=== PATIENT | female | born 1955 | race Caucasian/White ===

== ENCOUNTER 2021-12-03 11:32 | Outpatient (CLI) | payer MEDICARE, SELFPAY ==
--- OUTSIDE RECORDS SUMMARY | 2021-12-03 11:37 | XMS_ITS | Encounter Summary ---
:1955 Author Organization [facility] Address [address] [place] [address] Care Team Providers Name Role Phone Unavailable Primary Care Provider Unavailable Reason for Referral Outpatient (Routine) - Closed Specialty Diagnoses / Procedures Referred By Contact Refer red To Contact Diagnoses Arthritis Shoulder Alfredo De Souza M.D. [facility] Procedures DX Shoulder Right 2+ Views [address] [place] [address] Referral ID Status Reason Start Date Expiration Date Visits Requ ested Visits Authorized [id number] Closed 09/04/2021 09/04/2022 1 1 Outpatient (Routine) - Closed Specialty Diagnoses / Procedures Referred By Contact Refer red To Contact Orthopedic Surgery Alfredo De Souza [place] M.D. [address] [place] [address] Referral ID Status Reason Start Date Expiration Date Visits Requ ested Visits Authorized [id number] Closed 09/04/2021 09/04/2022 1 1 Reason for Visit Reason Comments Post-op Outpatient (Routine) - Closed Specialty Diagnoses / Procedures Referred By Contact Refer red To Contact Orthopedic Surgery Misti Owens APRN, [facility].N.Mima, M.S.N. [address] [place] [address] Referral ID Status Reason Start Date Expiration Date Visits Requ ested Visits Authorized [id number] Closed 07/22/2021 07/22/2022 1 1 Encounter Details Date Type Department Care Team Description 09/04/2021 Office Visit Department of Alfredo De Souza Arthrit is Shoulder Orthopedic Surgery in [place] (Primary Dx) [place], [place] [address] [facility] [address] [place] [id number] [phone] Social History Tobacco Use Types Packs/Day Years Used Date Smoking Tobacco: Never Smokeless Tobacco: Never Alcohol Use Standard Drinks/Week Comments Yes 4 (1 standard drink = 0.6 oz pure alcoho l) Alcohol Habits Answer Date Recorded How often do you have a drink containing alcohol? 2-3 times a week 05/09/2021 How many drinks containing alcohol do you have on a 1 or 2 05/09/2021 typical day when you are drinking? How often do you have six or more drinks on one Never 05/09/2021 occasion? Social Isolation Answer Date Recorded In a typical week, how many times do you More than three lita es a week 05/09/2021 talk on the phone with family, friends, or neighbors? How often do you get together with friends More than three t imes a week 05/09/2021 or relatives? How often do you attend mandaen or More than 4 times per year 05/09/2021 latter-day services? Do you belong to any clubs or No 05/09/2021 organizations such as mandaen groups, unions, fraternal or athletic groups, or school groups? How often do you attend meetings of the Never 05/09/2021 clubs or organizations you belong to? Are you now , , , 05/09/2021 , never or living with a partner? Physical Activity Answer Date Recorded On average, how many days per week do you engage in moderate to 7 days 05/09/2021 strenuous exercise (like walking fast, running, jogging, dancing, swimming, biking, or other activities that cause a light or heavy sweat)? On average, how many minutes do you engage in exercise at th is 40 min 05/09/2021 level? Stress Answer Date Recorded Do you feel stress - tense, restless, nervous, or anxious, N ot at all 05/09/2021 or unable to sleep at night because your mind is troubled all the time - these days? Financial Resource Strain Answer Date Recorded How hard is it for you to pay for the very basics like Not h jhoan at all 05/09/2021 food, housing, medical care, and heating? Intimate Partner Violence Answer Date Recorded Within the last year, have you been afraid of your partner o r No 05/09/2021 ex-partner? Within the last year, have you been humiliated or emotionall y No 05/09/2021 abused in other ways by your partner or ex-partner? Within the last year, have you been kicked, hit, slapped, or No 05/09/2021 otherwise physically hurt by your partner or ex-partner? Within the last year, have you been raped or forced to have any No 05/09/2021 kind of sexual activity by your partner or ex-partner? Food Insecurity Answer Date Recorded Within the past 12 months, you worried that your food would Never true 05/09/2021 run out before you got money to buy more. Within the past 12 months, the food you bought just didn't N ever true 05/09/2021 last and you didn't have money to get more. Transportation Needs Answer Date Recorded In the past 12 months, has lack of transportation kept you f rom No 05/09/2021 medical appointments or from getting medications? In the past 12 months, has lack of transportation kept you f rom No 05/09/2021 meetings, work, or getting things needed for daily living? Housing Stability Answer Date Recorded In the last 12 months, was there a time when you were not ab le No 05/09/2021 to pay the mortgage or rent on time? In the last 12 months, how many places have you lived? 1 05/09/2021 In the last 12 months, was there a time when you did not hav e a No 05/09/[address] or slept in a mcc (including now)? Education Answer Date Recorded What is the highest level of school Master's degree (e.g., Reji Landry, , 02/27/2020 you have completed or the highest Melanie, MEd, MASH FILTER OPERATOR, KARLI) degree you have received? 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 - 09/04/2021 2:50 PM CDT Images from the original note were not included. [facility] 6 Week Post-op Instructions At 6 weeks after surgery, we continue to monitor the healing process of your shoulder. While the shoulder continues to heal, we also need to work to expand the range of motion of the shoulder. At this point in healing, the tendon is about 40% healed. It's ready to do some gentle stretching, but not ready for substantial strengthening or activity. I like to think of this as one foot on the gas pedal,one foot on the brake. General restrictions: Okay to wean out the sling. This doesn't have to be immediate, but it's a good idea to use the slingless and less over time (including sleep). Nothing in the surgical hand heavier than a fork/knife/toothbrush/cell phone. Okay to use the arm for gentle daily activities. This includes reaching and some general use. You should avoid reaching across your body, or behind your back. Those positions can put you at risk for injuring your shoulder. You should begin the exercises listed below. The monroe to the exercises is to do them frequently, rather than intensely. It should not cause substantial pain to do the stretching, just a gentle stretch. While the stretching exercises are the most important part of your therapy, it is okay to begin formal therapy at this point - as long as the therapists follow the required restrictions Certainly, if you have questions at any time, feel free to contact us. You are through the toughest part of your recovery. While recovery can feel slow during the process,you should be encouraged that the healing is continuing to occur in your shoulder. We don't expect that you have maximized your recovery until 1 to 2 years after surgery. Shoulder Stretching Exercises When you do these stretches as you were shown by your health care provider, you stretch your shoulder muscles to improve the flexibility of your shoulder. If you have questions about these stretches, talk with your health care provider. Follow these guidelines when doing these stretches. Maintain a comfortable and constant stretch. Breathe normally; do not hold your breath. Hold each stretch 10 seconds. Then slowly return to the starting positon and relax. Do each stretch 5-10 time(s) 3-5 time(s) a day. Do each stretch for both shoulders if your health care provider tells you do to so. Do each stretch slowly and gently. A stretch should not cause new or increased pain. If it does, stop doing the stretch right away and relax. If the pain goes away, do the stretch again but do it with less speed and intensity. If the pain does not go away, talk with your health care provider before you do the stretch again. Shoulder flexion while sitting Sit with your affected side next to a table. Place your forearm and hand with palm down on the table. Your elbow should be bent slightly. See Figure 2. You may place a towel between your arm and the table. As you move your arm, the towel helps reduce friction between your arm and the table. Slowly lean forward and slide your hand and forearm along the table. Stop when you feel a gentle stretch in your shoulder. Shoulder external rotation - lying option Bend your elbows at a 90-degree angle to hold the wand with your right hand on top of and your left hand under the wand. Rest your left elbow and upper arm on a folded towel. Keeping your arms at your side, use your right arm and the wand to rotate your left arm outward. Addendum 1: Postoperative Timelines Work and activity restrictions are consistent regardless of repair type: ? 0-6 weeks: No work, no use of operative hand 6 wks -3 mo: Nothing in operative hand heavier than a fork/knife/toothbrush. Cleared to return to work for opposite hand work only ? 3 mo: No lifting greater than 10 pounds, only occasional overhead reaching ? 4.5 m: No lifting greater than 20 pounds ? 6 mo: Released from restrictions, return to work full duty Addendum 2: Physical Therapy Protocol Addendum 3: Physical Therapy Prescription (if desired) Physical/Occupational Therapy Prescription Date: 09/04/21 Diagnosis: Status post total shoulder replacement Evaluate and treat, modalities as indicated. With below restrictions: Signed: Date: 09/04/21 documented in this encounter Progress Notes Addison Crump - 09/04/2021 2:50 PM CDT HISTORY OF PRESENT ILLNESS Megan Carmichael is a 65 y.o. female who on 07/22/21 underwent right rTSA/biceps tenodesis. She presents to our clinic today 6 weeks after the procedure for x-rays and evaluation. Today, she is feeling great -- she is very happy with her progress thus far. She has been using a sling regularly --taking her arm out to move it in accordance with the exercises that she was given at her last visit. The patient is not currently experiencing numbness to the effected limb. Patient has not had any issues with incision drainage or healing to this point. PHYSICAL EXAM General Appearance: Patient is well-appearing. The patient is alert and oriented to person, place, and time and able tofollow commands. Skin: Surgical site appearance: clean, dry, and intact. No signs of erythema, bruising, or drainage. Musculoskeletal: Patient is able to fire the interosseous, EPL, finger flexors, finger extensors, wrist flexors, wrist extensors, biceps, triceps and deltoid. Shoulder ROM: Patient's ROM is limited due to stiffness/mild pain; however, she has full IR/ER. Her abduction/flexion are limited at about 50 degrees. Neurologic: Intact sensation to light touch through the axillary, musculocutaneous, radial and ulnar nerve distributions of the affected arm. Vascular: The right upper extremity does not appear well perfused. Radial and ulnar pulses are 2+ and capillary refill is <= 2 sec through all fingertips. IMPRESSION/REPORT/PLAN IMAGING STUDIES: Radiographs demonstrate implants in acceptable position, without failure, loosening, wear, subluxation or dislocation #1 Right rTSA and Right open biceps tenodesis on 07/22/21 The patient continues to recover from their above stated procedure -- her recovery is going quite well. Today, she was given weight restrictions for ADL's. She can begin to take her sling off. She was encouraged to start gentle daily use of that right shoulder. Furthermore, she was encouraged to do daily exercises. She desires to do PT close to home so that she can best understand how to perform the exercises -- she will be set up at [facility] and given a prescription today. Moreover, she mentioned a recent eye surgery that is upcoming for her -- we will give her amoxicillin ppx for this. Plan/Follow up instructions: 1) No more sling use 2) Gentle daily use/exercises 3) Amoxillin 500 mg ppx 4) Follow-up in 6 weeks (3 mo f/u) We discussed pain management strategies. All questions were answered, patient understands and agrees with the plan. Dr. De Souza was present for this evaulation. Alfredo De Souza M.D. - 09/04/2021 2:50 PM CDT SUBJECTIVE CHIEF COMPLAINT/REASON FOR VISIT Followup status post right reverse total shoulder arthroplasty. HISTORY OF PRESENT ILLNESS Ms. Carmichael returns. Overall, she is recovering very well. Her pain and function are excellent. She is really surprised about how well it is doing. OBJECTIVE PHYSICAL EXAMINATION General: Alert and oriented, in no acute distress. Musculoskeletal: Forward elevation to 100, external rotation 30. Her deltoid is contractile. She is neurovascularly intact distally. DIAGNOSTICS X-rays of the right shoulder demonstrate a well-aligned stable right reverse total shoulder arthroplasty in acceptable position. ASSESSMENT / PLAN #1 Status post right reverse total shoulder arthroplasty We discussed options and expectations. We discussed nonoperative and surgical management. We will continue with the stretching exercises, have her follow up in 6 weeks. All of her questions were answered. Alfredo De Souza M.D. CT CT Job ID: [id number] documented in this encounter Plan of Treatment Scheduled Referrals Name Type Priority Associated Order Schedule Diagnoses Orthopedic Surgery Outpatient Referral Routine Ex pected: office visit 10/16/2021, (clinic) Expires: 12/05/2022 documented as of this encounter Results DX Shoulder Right 2+ Views (10/16/2021 10:52 AM CDT) Anatomical Region Laterality Modality Upper Extremity, Shoulder, Musculoskeletal RST LOS, Right Digital Radiography Musculoskeletal ARZ LOS, Muskuloskeletal FLA LOS Specimen (Source) Anatomical Collection Method Collection Time Re ceived Time Location / / Volume Laterality 10/16/2021 10:57 AM CDT Impressions 10/16/2021 11:32 AM CDT No significant change since 09/04/2021. Right reverse total shoulder arthroplasty. No evidence of hardware failure. Narrative 10/16/2021 11:32 AM CDT EXAM: ??DX SHOULDER RIGHT 2+ VIEWS Procedure Note Karen Lucas M.D. - 10/16/2021Formatt ing of this note might be different from the original. EXAM: DX SHOULDER RIGHT 2+ VIEWS IMPRESSION: No significant change since 09/04/2021. Right reverse total shoulder arthroplasty. No evidence of hardware failure. Alfredo De Souza M.D. IMG DIAGNOSTIC IMAGING MEL HUBBARD documented in this encounter Visit Diagnoses Diagnosis Arthritis Shoulder - Primary Arthritis Shoulder documented in this encounter
--- OUTSIDE RECORDS SUMMARY | 2021-12-03 11:37 | XMS_ITS | Encounter Summary ---
:1955 Author Organization [facility] Address [address] [place] [id number] Care Team Providers Name Role Phone Unavailable Primary Care Provider Unavailable Encounter Details Date Type Department Care Team Description 10/13/2021 Hospital Encounter Department of Eddy Anne Breast Family History; Laboratory Medicine Horace Bermudez Melanoma Personal History; and Pathology, [address] [place] [address] Cancer Ovary Family History; [facility], in [place], [place] Cancer Family History [place], [place] [address] [place] [address] [place], [place] (Work) [phone] Social History Tobacco Use Types Packs/Day Years [...] or relatives? How often do you attend methodist or More than 4 times per year 05/09/2021 islam services? Do you belong to any clubs or No 05/09/2021 organizations such as methodist groups, unions, fraternal or athletic groups, or [...] place to sleep or slept in a retirement (including now)? Education Answer Date Recorded What is the highest level of school Master's degree (e.g., M Gris, MS, 02/27/2020 you have completed or the highest Melanie, MEd, STRIPPER PRELIMINARY, KARLI) degree you have received? 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 calcium carb-vit 250 mg. 0 07/22/2021 D3-magnesium 250-200-125 mg-unit-mg capsule calcium citrate-vitamin Take 2 tablets by 0 07/22 D3 (CITRACAL+D) 315 mg-5 mouth 2 (two) times a mcg (200 Unit) per tablet day with meals. This may be purchased over the counter cholecalciferol, vitamin Take 2,500 Units by 0 D3, 10 mcg (400 unit) mouth. capsule DIETARY SUPPLEMENT ORAL Take 10 tablets by 0 mouth as needed. Wazyren tea pills for consitpation docosahexaenoic acid/epa Take 2 capsules by 0 (FISH OIL ORAL) mouth daily. fluticasone Inhale 1 puff every 0 11/13/2020 propion-salmeteroL morning. (AIRDUO RESPICLICK) 232-14 mcg/actuation inhaler fluticasone propionate Administer 2 sprays 0 12/18 (FLONASE) 50 into each nostril as mcg/actuation nasal spray needed. lisinopriL Take 5 mg by mouth 0 12/22/2019 (PRINIVIL,ZESTRIL) 5 mg every morning. tablet montelukast (SINGULAIR) TAKE 1 TABLET BY MOUTH 90 tablet 3 11/11/2020 10 mg tablet EVERYDAY AT BEDTIME multivitamin capsule Take 1 capsule by 0 mouth daily. TURMERIC ORAL Take 2 tablets by 0 mouth daily. Ventolin HFA 90 Inhale 2 puffs every 4 18 g 11 01/16/20 21 mcg/actuation inhaler (four) hours as needed for wheezing or shortness of breath. vitamin B complex (B Take 1 tablet by mouth 0 COMPLEX ORAL) daily. documented as of this encounter Plan of Treatment Not on filedocumented as of this encounter Procedures Procedure Name Priority Date/Time Associated Comments Diagnosis [facility]. 6connect Routine 10/13/2021 1:55 PM Results for eSNF CDT procedure are i n the results section. documented in this encounter Results [facility] Twice (10/13/2021 1:55 PM CDT) P athologist Signature Test Name [employer] 10/14/2021 [employer] Custom Panel 8:10 AM CDT Result SEE COMMENT 11/06/2021 [facility] 3:09 PM CDT Comment: For final report, select Lab-Send Out L ab Results hyperlink below. Specimen Anatomical Collection Method Collection Time Receive d Time (Source) Location / / Volume Laterality Varies 10/13/2021 1:55 PM 8:10 CDT AM CDT Narrative This result has an attachment that is no t available. Eddy Anne M.D. LAB [facility] ORDERABLES Performing Organization Address City/State/ZIP Code Phon e Number [facility] [address] [place] [address] [facility] [facility] [place], [place] [address] [facility] [phone] documented in this encounter Visit Diagnoses Diagnosis Cancer Breast Family History Melanoma Personal History Cancer Ovary Family History Cancer Family History documented in this encounter
--- OUTSIDE RECORDS SUMMARY | 2021-12-03 11:37 | XMS_ITS | Encounter Summary ---
:1955 Author Organization [facility] Address [address] [place] [address] Care Team Providers Name Role Phone Unavailable Primary Care Provider Unavailable Reason for Visit Outpatient (Routine) - Closed Specialty Diagnoses / Procedures Referred By Contact Refer red To Contact Clinical Genomics Diagnoses Cancer Breast Family History Brigid Snow M.D. [place] [address] [place] [address] Referral ID Status Reason Start Date Expiration Date Visits Requ ested Visits Authorized [id number] Closed 08/29/2021 08/29/2022 1 1 Encounter Details Date Type Department Care Team Description 10/13/2021 Comprehensive Visit Department of Gordon Snow M.D. [address] [place] [phone] Melanoma Personal History (Primary Dx); Medical Genetics in Naty Enamorado M.S., [facility] [address] [place] [address] [phone] Cancer Breast Family History; [place], [facility]; [place] Cancer Family History [address] [place] [address] [phone] Social History Tobacco Use Types Packs/Day Years [...] or relatives? How often do you attend christian or More than 4 times per year 05/09/2021 mosque services? Do you belong to any clubs or No 05/09/2021 organizations such as christian groups, unions, fraternal or athletic groups, or [...] place to sleep or slept in a skilled nursing (including now)? Education Answer Date Recorded What is the highest level of school Master's degree (e.g., M A, MS, 02/27/2020 you have completed or the highest Melanie, MEd, A&P MECHANIC, KARLI) degree you have received? 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 REFERRING PROVIDER Brigid Snwo M.D. CHIEF COMPLAINT Family history of breast cancer HISTORY OF PRESENT ILLNESS Megan Carmichael is a 65 y.o. female referred by Brigid Snow M.D. due to her family history of breast cancer. The patient has a personal history of melanoma. She is undergoing annual mammograms . The patient is, menarche was at age 14, her first parity was at 22 years old, and she is postmenopausal. She reports no history of HRT . Ms. Carmichael had hysterectomy and bilateral salpingo-oophorectomy . The patient is a non-smoker. Ms. Carmichael did have BRCA1 and BRCA2 genetic testing in 2004, which was negative. The family history is significant for breast, ovarian, and other cancers. Please see family history section below for additional details. The patient attended today's consultation with her . FAMILY HISTORY A detailed family history was obtained from the patient and a pedigree was constructed. The pedigreewill be saved as a scanned document and available for viewing under the Media tab of [employer]. Our risk assessment is based upon medical and family history information as provided by the patient, and may change in the future should new information be obtained. Relevant History: Mother with ovarian cancer at age 68 Son with testicular cancer Maternal grandmother with breast cancer at age 45 Two maternal great-aunts (sisters of above) with breast cancer Maternal great-grandmother (mother of above) with abdominal cancer Paternal aunt with uterine cancer The patient's maternal ancestry is [place]ian and Chinese; the patient's paternal ancestry is Greenlandic. There is no reported consanguinity or Ashkenazi Congregational ancestry. IMPRESSION/REPORT/PLAN PATIENT EDUCATION We discussed that cancer is a relatively common diagnosis in the general population, and the majority of these cancers are either sporadic or familial. Hereditary cancers are caused by mutations withina single cancer susceptibility gene. Families with hereditary cancers tend to have the following features: specific types of cancer in multiple close relatives and in several consecutive generations, early age at diagnosis (under 50), multiple primary or bilateral tumors, and a lack of environmental or other known risk factors. About 12% of women in the [place] will develop breast cancer during their lifetime. It is believed thatapproximately 5%-10% of breast cancers are associated with a strong underlying hereditary susceptibility, such as mutations in the BRCA1 gene or the BRCA2 gene. Additionally, mutations in other genes, including PALB2, AMANDA, and CHEK2, among others, have been found to cause a hereditary susceptibility to breast cancer. We discussed the cancer risks and medical management guidelines associated with mutations in these genes. We discussed how these mutations are inherited through families. About 1-2% of women in the [place] will develop ovarian cancer during their lifetime. It is believed that up to 20% of ovarian cancers are associated with a strong underlying hereditary susceptibility, such as mutations in the BRCA1 gene or the BRCA2 gene. Additionally, mutations in other genes, including Minaya syndrome and RAD51C, RAD51D, and BRIP1, among others, have been found to cause a hereditary susceptibility to ovarian cancer. We discussed the cancer risks and medical management guidelines associated with mutations in these genes. We discussed how these mutations are inherited through families. We discussed testing panels that cover many genes known or thought to be associated with hereditary or familial cancer. Mutations in some of the genes account for rare hereditary cancer syndromes that include significant risks for cancer, while other genes are currently thought of as modifier genes that potentially increase the risk for cancer. There are several limitations of these tests. The exact cancer risks for some of the genes that are included on these panels are not known at this point in time. Therefore, it may be difficult to provide appropriate screening/medical management recommendations. Additionally, there is a significant chance that a variant of uncertain significance may be identified. We discussed different hereditary cancer panel test options. Approximate cost, insurance coverage, and laws governing genetic discrimination were discussed. Risks, benefits, and limitations of genetic testing were discussed. Implications of possible test results, including positive, negative, and variant of uncertain significance, were discussed. RISK ASSESSMENT The patient's family history is moderately suggestive of a genetic predisposition to cancer. Ms. Carmichael does meet current National Comprehensive Cancer Network (NCCN) Testing Criteria for breastcancer susceptibility genes. Genetic testing is most informative when it is first performed on a family member with a personal history of cancer. Testing is available to Ms. Bebeto العلي but with limitations. If she elects to pursue genetic testing today and receives a negative test result, this does not rule out the possibilityof a hereditary cancer syndrome in the patient and/or her family. Ms. Carmichael would remain at an elevated empiric risk for breast cancer based on her family history and should continue to be managed accordingly. The patient's mother would be the most informative individual to pursue genetic testing, based on her diagnosis of ovarian cancer. Unfortunately she is and therefore unavailable for testing. PLAN Ms. Carmichael elected to pursue the Common Hereditary Cancer + RNA panel through [facility]. Ms. Carmichael will complete a blood draw today . The laboratory will complete insurance pre-verification for testing and will contact the patient with her estimated [id number] cost.Results will become available approximately 2-3 weeks from the release of testing. We will contact the patient with her test results when they become available. Screening and management recommendationswill be made for the patient and her family members at the time of results disclosure. If results are negative or a variant of uncertain significance is identified, the patient will be contacted with results via the patient portal. If results are positive or complex, the patient will be offered an in-person or video return visit. If genetic test results are negative or a variant of uncertain significance is identified, the following screening recommendations would apply for Ms. Bebeto العلي and her relatives. PERSONAL AND FAMILY SCREENING RECOMMENDATIONS PERSONAL SCREENING It is important for the patient to continue to follow the breast cancer screening recommendations provided by her physicians. This may include monthly breast self-examination, clinical breast examination, mammograms, or breast MRI, to be performed as directed by her physician. FAMILY SCREENING Women in this family with a first- or second-degree relative diagnosed with breast cancer remain at increased risk for breast cancer given their family history. These women would be advised to undergo breast cancer screening beginning approximately 10 years younger than the earliest age of breast cancer diagnosis in the family, or by age 40, whichever comes first. For this family, women should begin breast cancer screening at age 40. At a minimum, breast cancer screening should include monthly self-breast exam, annual or semi-annual clinical breast exam, annual mammogram, and possibly annual breastMRI. These screening options should be discussed with their care providers. Women with a first- or second-degree relative diagnosed with ovarian cancer may remain at an elevated empiric risk to develop this cancer based on the family history. Individuals may wish to discuss the option of ovarian cancer screening, such as transvaginal ultrasound and serum CA-125, as well as the option of prophylactic bilateral salpingo-oophorectomy with their physicians. These screening recommendations are based on national guidelines. Final screening recommendations should be deferred to the discretion of the managing physician. Other screening recommendations, such as those made by the [place] Cancer [employer], do remain appropriate. It was a pleasure to meet Ms. Carimchael. She is certainly welcome to contact us with any additional questions. PATIENT EDUCATION: All of the above was discussed in detail with the patient who verbalized understanding. The patient's questions were answered. Total time: 35 minutes documented in this encounter Plan of Treatment Not on filedocumented as of this encounter Visit Diagnoses Diagnosis Melanoma Personal History - Primary Cancer Breast Family History Cancer Ovary Family History Cancer Family History documented in this encounter
--- OUTSIDE RECORDS SUMMARY | 2021-12-03 11:37 | XMS_ITS | Encounter Summary ---
:1955 Author Organization [facility] Address [address] [place] [address] Care Team Providers Name Role Phone Unavailable Primary Care Provider Unavailable Reason for Visit Reason Comments Genetic Test Results Encounter Details Date Type Department Care Team Description 11/06/2021 Documentation Department of Medical [facility] Genetic Test Results Genetics in [phone] [place], [place] (Work) [address] [place] [address] Social History Tobacco Use Types Packs/Day Years [...] or relatives? How often do you attend episcopal or More than 4 times per year 05/09/2021 presybeterian services? Do you belong to any clubs or No 05/09/2021 organizations such as episcopal groups, unions, fraternal or athletic groups, or [...] place to sleep or slept in a snf (including now)? Education Answer Date Recorded What is the highest level of school Master's degree (e.g., M A, MS, 02/27/2020 you have completed or the highest Melanie, MEd, PATROL MOTHER, KARLI) degree you have received? 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 CHIEF COMPLAINT/PURPOSE Negative Genetic test results. HISTORY OF PRESENT ILLNESS Megan was seen in the Department of Clinical Genomics on 10/13/21 due to their family history of cancer. At that visit, they elected to pursue the BRCA1/2 analysis with the Common Hereditary Cancer + RNA analysis Panel through [facility]. These results were communicated to the patient via the patient online services portal by our genetic counseling housekeeper/laundry assistant. IMPRESSION/REPORT/PLAN Genetic testing included sequence analysis and gross deletion/duplication analysis of 47 genes associated with hereditary cancer. For a full list of genes included in the analysis, please refer to the genetic test report scanned into the patient's chart (document viewer tab). No pathogenic variants were detected by this testing. The fact that no pathogenic variants were detected in the genes for which Megan was tested is reassuring. However, the fact that a pathogenic variant was not identified does not entirely eliminate the possibility that they and/or their family members have a hereditary susceptibility to cancer. Genetictesting has less than 100% sensitivity, meaning there is a small possibility that a pathogenic variant exists in one of the genes analyzed which cannot be identified by current testing methodology. It is also possible that variants in cancer susceptibility genes which have not yet been discovered may be contributing to their personal and/or family history of cancer. PERSONAL AND FAMILY SCREENING RECOMMENDATIONS Given that a hereditary susceptibility to cancer has not been identified by genetic testing, it is generally recommended to screen patients and their family members based on their personal and/or family histories of cancer. It is important for Megan to continue to follow the screening and management re commendations as provided by their care team based on their family history of cancer. Women in this family with a first- [...] recommendations, such as those made by the [place] Cancer Society, do remain appropriate. FOLLOW UP/RECOMMENDATIONS It is recommended that Megan contact our clinic if there are changes to their personal or family history of cancer, as this information may change our genetic testing recommendations. Additionally, they are welcome to contact our clinic periodically, as our genetic testing options will likely improve over time. They are welcome to contact our clinic with any questions. documented in this encounter Plan of Treatment Not on filedocumented as of this encounter Visit Diagnoses Not on filedocumented in this encounter
--- OUTSIDE RECORDS SUMMARY | 2021-12-03 11:37 | XMS_ITS | Clinical Summary ---
:1955 Author Organization [facility] Address [address] [place] [address] Care Team Providers Name Role Phone Unavailable Primary Care Provider Unavailable Source Comments Patient records contain information from all sites at [facility]. For routine questions regarding patient records, call [phone] during business hours, M-F 8:00 AM - 5:00 PM Central Time. Record requests for emergency care only can be directed to [phone] at any time.[facility] Allergies Active Allergy Reactions Severity Noted Date Comments Adhesive Tape-Silicones Other (see comments) 2 Rash Cat Dander Shortness of breath Medium 11/25/2004 Cigarette Smoke Shortness of breath High 06/29/2016 Mold Shortness of breath Medium 08/31/2012 Pollen Extracts Shortness of breath Medium 04/11/2013 Sulfa (Sulfonamide Rash Low 12/21/2001 Antibiotics) Tramadol Nausea Only, Anxiety, High 09/28/2006 Palpitations, Rash, Headache Trimethoprim Hives, Rash High 03/19/2005 Medications Medication Sig Dispensed Refills Start Date End Date Status ascorbic acid, vitamin Take 1,000 mg by 0 04/11/2013 Active C, (VITAMIN C) 500 mg mouth daily. tablet fluticasone propionate Administer 2 0 01/15/2020 Active (FLONASE) 50 sprays into each mcg/actuation nasal nostril as needed. spray lisinopriL Take 5 mg by mouth 0 12/22/2019 Active (PRINIVIL,ZESTRIL) 5 every morning. mg tablet vitamin B complex (B Take 1 tablet by 0 Active COMPLEX ORAL) mouth daily. docosahexaenoic Take 2 capsules by 0 Active acid/epa (FISH OIL mouth daily. ORAL) DIETARY SUPPLEMENT Take 10 tablets by 0 Active ORAL mouth as needed. Wazyren tea pills for consitpation TURMERIC ORAL Take 2 tablets by 0 Active mouth daily. montelukast TAKE 1 TABLET BY 90 tablet 3 11/11/2020 Active (SINGULAIR) 10 mg MOUTH EVERYDAY AT tablet BEDTIME Additional Information Patient taking differently: 10 mg oral Every morning, Reported on 07/09/2021 fluticasone propion-salmeteroL Inhale 1 puff every 0 11/13/2020 Active (AIRDUO RESPICLICK) 232-14 morning. mcg/actuation inhaler Ventolin HFA 90 mcg/actuation Inhale 2 puffs every 4 18 g 11 01/15/2021 Active inhaler (four) hours as needed for wheezing or shortness of breath. multivitamin capsule Take 1 capsule by mouth 0 Active daily. calcium citrate-vitamin D3 Take 2 tablets by mouth 0 07/22/2021 Active (CITRACAL+D) 315 mg-5 mcg (200 2 (two) times a day with Unit) per tablet meals. This may be purchased over the counter amoxicillin (AMOXIL) 500 mg TAKE 4 CAPSULES BY MOUTH 0 09/05/2021 Active capsule ONCE NEEDED 1-2 HOURS BEFORE EACH DENTAL APPT cholecalciferol, vitamin D3, 10 Take 2,500 Units by 0 Active mcg (400 unit) capsule mouth. calcium carb-vit D3-magnesium 250 mg. 0 07/22/2021 Active 250-200-125 mg-unit-mg capsule Active Problems Problem Noted Date Post Operative Nausea/Vomiting 07/15/2021 Overview: aspiration during a colonoscopy 04/22/2021 Pain Shoulder Right 05/21/2021 Overview: Added automatically from request for ean leblanc [id number] Rhinitis Allergic 12/28/2014 Hypertension Essential Primary 11/09/2014 Asthma Moderate Persistent 04/10/2010 Gastroesophageal Reflux Disease NOS 02/15/1991 Personal History Of Malignant Melanoma Of Skin Resolved Problems Problem Noted Date Resolved Date Asthma Mild Persistent 03/09/2005 03/07/2020 Encounters Date Type Specialty Care Team Description 11/06/2021 Documentation Clinical Genomics Radha Nice Shari ic Test Results 10/16/2021 Office Visit Orthopedic Surgery Misti Owens Afterca re Total L, JERSON, C.N.P., Shoulder M.S.N. Arthroplasty (Primary Dx) 10/16/2021 Hospital Encounter Radiology Alfredo De Souza M.D. 10/13/2021 Hospital Encounter Laboratory Eddy Anne Cancer Breast Family History; Medicine Horace Bermudez Melanoma Person al History; Cancer Ovary Fa vivi History; Cancer Family H istory 10/13/2021 Comprehensive Visit Clinical Genomics Brigid Snow, Melanoma Personal History (Primary Dx); Horace Cancer Breast Family History; Fei, Cancer Ovary Fa vivi History; Naty Loja M.S., Cancer Family History CGC 10/13/2021 Clinical Clinical Genomics Wilbur Enamorado: B C Communication Naty Loja M.S., [facility] [place] 10/09/2021 Clinical Admitting/Central Pre-visit Intake Communication Scheduling 09/04/2021 Office Visit Orthopedic Surgery Alfredo De Souza M.D. (Primary Dx) 09/04/2021 Hospital Encounter Radiology Misti Owens Pain Sh oulder Right Freedom, JERSON, C.N.P., M.S.N. from Last 3 Months Immunizations Name Administration Dates Next Due HepA / HepB 10/06/2002, 12/21/2001 HepA Adult 10/06/2002, 12/21/2001 HepB Adult 10/06/2002, 01/23/2002, 12/21/2001 HepB, Unspecified 01/23/2002 Influenza (IM) Preservative Free 12/02/2011 Influenza TIV (IM) 12/21/2001, 01/17/1992 Influenza, Unspecified 02/29/2020 PCV20 08/29/2021 (Deferred: Other - CHECK WITH PCP) PPSV23 12/02/2011 RZV (SHINGRIX) 02/29/2020 (Deferred: Patient Refused) Td Preservative Free (TENIVAC, 01/23/2002, 02/15/1990 DECAVAC) Td, (Adult) Unspecified 01/23/2002 Tdap 08/29/2021 (Deferred: Other - CHECK WITH PCP), 04/01/2010 Family History Medical History Relation Name Comments Arthritis Father Ashok Smith Coronary artery disease Father Ashok Smith Hyperlipidemia Father Ashok Smith Hypertension Father Ashok Smith Skin cancer Father Ashok Smith Other cancer Father's Sister Vivien Mcneil Uterine Breast cancer Maternal Grandmother Jamie Raymond 40+ years o ld Ovarian cancer Mother Vivien Smith Skin cancer Mother Vivien Smith Other cancer Son Ronald Lorenzo Testicular Relation Name Status Comments Father Ashok Smith Father's Sister Vivien Mcneil Maternal Grandmother Jamie Raymond Mother Vivien Smith Son Ronald Lorenzo Social History Tobacco Use Types Packs/Day Years Used Date Smoking Tobacco: Never Smokeless Tobacco: Never Tobacco Cessation: Counseling Given: Not Answered Alcohol Use Standard Drinks/Week Comments Yes 4 [...] or relatives? How often do you attend jewish or More than 4 times per year 05/09/2021 anglican services? Do you belong to any clubs or No 05/09/2021 organizations such as jewish groups, unions, fraternal or athletic groups, or [...] place to sleep or slept in a assisted (including now)? Education Answer Date Recorded What is the highest level of school Master's degree (e.g., M A, MS, 02/27/2020 you have completed or the highest Melanie, MEd, CHECK EMBOSSER, KARLI) degree you have received? Sex Assigned at Date Recorded Female 01/10/2021 2:57 AM [employer]IL [employer]ER Last Filed Vital Signs Vital Sign Reading Time Taken Comments Blood Pressure 146/87 08/29/2021 1:10 PM CDT Pulse 71 08/29/2021 1:10 PM CDT Temperature 36.3 ??C (97.3 ??F) 07/22/2021 1:52 PM CDT Respiratory Rate 16 07/22/2021 1:52 PM CDT Oxygen Saturation 98% 07/22/2021 1:52 PM CDT Inhaled Oxygen Concentration - - Weight 59.3 kg (130 lb 11.7 oz) 08/29/2021 1:10 PM CDT Height 154.7 cm (5' 0.91) 08/29/2021 1:10 PM CDT Body Mass Index 24.78 08/29/2021 1:10 PM CDT Plan of Treatment Health Maintenance Due Date Last Done Comments Bone Density Scan (Osteoporosis 1955 Screen) CT Colonography 1955 Cologuard 1955 Hepatitis C Screening 1955 Zoster Vaccines (1 of 2) 11/18/2005 Colonoscopy 04/01/2015 04/01/2010 (Performed elsewhere) Colorectal Cancer Surveillance 04/01/2015 DTaP,Tdap,and Td Vaccines (2 - Td 04/01/2020 04/01/2010, , or Tdap) 01/23/2002, Additional history exists Depression Screening (Annual 02/15/2021 PHQ-2) COVID-19 Vaccine (4 - Booster for 03/14/2021 01/17/2021, , Pfizer series) 03/14/2020 Influenza Vaccine (#1) 2021 02/29/2020, 12/02/2011, 12/21/2001, Additional history exists Office Visit for Blood Pressure 11/29/2021 08/29/2021 Check / Re-check Creatinine Level 05/28/2022 05/28/2021, 05/28/2021, 02/07/2020, Additional history exists Potassium Level 05/28/2022 05/28/2021, 02/07/2020, 09/01/2018, Additional history exists Sodium Level 05/28/2022 05/28/2021, 02/07/2020, 09/01/2018, Additional history exists Mammogram 06/20/2022 06/20/2021, 06/20/2021, 06/20/2021, Additional history exists Fasting Glucose for Diabetes 05/28/2024 05/28/2021, 020, Screening 09/01/2018, Additional history exists Hepatitis B Vaccines Completed 10/06/2002, 10/06/2002, 01/23/2002, Additional history exists Fall Risk Screen (Annual) Completed 07/22/2021 Pneumococcal vaccine (65+ years) Completed 09/05/2021, Medical Devices Implanted Type Area Drywall Finisher Foreman Device Shelf Model / Identifier Expiration Serial / Date Lot Baseplate Glenoid - [id number] Ankle Right: Armida 04/29/2026 [id number] / Implanted: Qty: 1 on 07/22/2021 by Alfredo Kamara M.D. at [facility] Implant Shoulder / [id number] Description: No ankle implant - shoulder only Hardware E.G. Pins/Screws/Rods Hardware e.g. pins/screws/rods Right: W rist Description: Titanium plate Mesh Prolene 6 X 6 Pmm - Starkey [id number] Mesh or Patch Ethicon Implanted: Qty: 1 on 10/13/2005 Description: Device Drywall Finisher Foreman - Ethic on. Device Status Text - [id number]. [facility] Data - [id number]. Physiomesh Composite [id number]([id number]) - Starkey [id number] Mesh or Patc h Other/Legacy - See Implant Ethicon Implanted: Qty: 1 on 10/14/2010 Description Description: Device Drywall Finisher Foreman - Ethic on. Body Location - Other. Not Applicable. Device Status Text - [id number]. Hum Cup Reu 2x36 - [id number] Shoulder Implant Right: Shoulder Str yker 07/02/2025 [id number] / Implanted: Qty: 1 on 07/22/2021 by Alfredo Kamara M.D. at [facility] / [id number] Explanted Type Area Drywall Finisher Foreman Device Shelf Model / Identifier Expiration Serial / Date Lot Percuflex Ureteral Stent 8fr X 24cm - Starkey [id number] Ureteral Ureter B oston Implanted: Qty: 1 on 10/15/2006 Stent Scientific Description: Device Drywall Finisher Foreman - Makelight Interactive. Device Status Text - [id number]. Procedures Procedure Name Priority Date/Time Associated Comments Diagnosis DX SHOULDER RIGHT RAD - Routine 10/16/2021 10:52 Arthritis Resul ts for this 2+ VIEWS (most inpatients AM CDT Shoulder procedure a re in and all the results outpatients) section. MISC. INVITAE Routine 10/13/2021 1:55 Results for this CORPORATION PM CDT procedure are i n the results section. DX SHOULDER RIGHT RAD - Routine 09/04/2021 1:47 Pain Shoulder Resul ts for this 2+ VIEWS (most inpatients PM CDT Right procedure a re in and all the results outpatients) section. from Last 3 Months Results DX Shoulder Right 2+ Views (10/16/2021 10:52 AM CDT)Only the most recent of2 resultswithin the time period is included. Anatomical Region Laterality Modality Upper Extremity, Shoulder, [...] Alfredo De Souza M.D. IMG DIAGNOSTIC IMAGING PROCE [facility] [place]. Fjuul (10/13/2021 1:55 PM CDT) P athologist Signature Test Name Wilbur 10/14/2021 [facility] Custom Panel 8:10 AM CDT Result SEE COMMENT 11/06/2021 [facility] 3:09 PM CDT Comment: For final report, select Lab-Send Out L ab Results hyperlink below. Specimen Anatomical Collection Method Collection Time Receive d Time (Source) Location / / Volume Laterality Varies 10/13/2021 1:55 PM 8:10 CDT AM CDT Narrative This result has an attachment that is no t available. Eddy Anne M.D. LAB [facility] ORDERABLES Performing Organization Address City/State/ZIP Code Phon e Number [employer] [address] [place] [phone] [facility] [employer] [address] [phone] from Last 3 Months Insurance Payer Benefit Plan / Subscriber ID Effective Dates Phone Addre ss Type Group [facility] [id number] 2020-Prese [phone] [address] [address] PPO BLUE [facility] MEDIC[facility] PLAN nt [address] [facility] [id number]
--- OUTSIDE RECORDS SUMMARY | 2021-12-03 11:37 | XMS_ITS | Encounter Summary ---
:1955 Author Organization [facility] Address [address] [place] [address] Care Team Providers Name Role Phone Unavailable Primary Care Provider Unavailable Reason for Visit Reason Comments Follow-up Outpatient (Routine) - Closed Specialty Diagnoses / Procedures Referred By Contact Refer red To Contact [facility] [address] [place] [address] Referral ID Status Reason Start Date Expiration Date Visits Requ ested Visits Authorized [id number] Closed 09/04/2021 09/04/2022 1 1 Encounter Details Date Type Department Care Team Description 10/16/2021 Office Visit Department of Misti Owens Aftercare Total Orthopedic Surgery in 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 (Primary Dx) [address] [facility] [address] [place] [address] [id number] Social History Tobacco Use Types Packs/Day Years [...] or relatives? How often do you attend islam or More than 4 times per year 05/09/2021 faith services? Do you belong to any clubs or No 05/09/2021 organizations such as islam groups, unions, [employer] or athletic groups, or school groups? How [...] place to sleep or slept in a care home (including now)? Education Answer Date Recorded What is the highest level of school Master's degree (e.g., M A, MS, 02/27/2020 you have completed or the highest Melanie, MEd, BASE[employer]ALL [employer], KARLI) degree you have received? 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 - 10/16/2021 11:30 AM CDT Images from the original note were not included. [facility] Rotator Cuff Problems and Their Treatment Your Rotator Cuff and Its Purpose The rotator cuff is a group of muscles and their tendons that surround and support your shoulder joint. The shoulder joint is formed by the head of your upper arm bone, called the humerus. It fits intothe socket of your shoulder blade, called the scapula. See Figure 1. The rotator cuff controls the movement of your shoulder. It helps keep your shoulder joint stable, or steady, when you use your arm to reach, throw, push, pull and lift. The rotator cuff has four muscles: The supraspinatus runs over the top of the humeral head. The subscapularis runs across the front of the humeral head. The infraspinatus and teres minor run across the back of the humeral head. Tendons are tough cords of connective tissue that attach the muscles to the humerus. The bursa is a fluid-filled sac between the rotator cuff and the bone on top of your shoulder, called the acromion. The bursa cushions the rotator cuff. It allows the rotator cuff tendons to glide freely when you move your arm. Signs and Symptoms of a Rotator Cuff Problem Pain, soreness or stiffness in your shoulder usually is the first sign something is wrong with your rotator cuff. You may have pain and weakness when you reach, push, pull or lift with your arm. You may have pain when you put on and take off your clothes. You may notice you do not have your usual range of motion when you do activities that involve your arm. You may feel pain on the outside of your shoulder even when you are not doing anything with your arm. You may have ongoing, dull or throbbing pain that makes sleeping difficult. Your shoulder hurts because tissues in your shoulder may be damaged. It is important to talk with your health care provider to find out what causes your pain so that it can be treated to prevent a moreserious problem. Possible Rotator Cuff Problems and Their Causes Damage to your rotator cuff muscles or tendons can happen several ways. The severity of the damage can range from inflammation to a complete tear. Talk with your health care provider about your specific rotator cuff problem and what likely caused it. He or she may use Figure 2 to explain the damage to your rotator cuff. Ask your health care provider any questions that you have. Tendinopathy An inflamed tendon is called tendinitis. Most of the time, the tendon is not inflamed but is gradually wearing out. When the tendon starts to unravel, the condition is called tendinopathy. Possible causes of tendinopathy The risk of tendinopathy can increase as people get older. This can happen because the shoulder has been used a lot over time and because shoulder joint tissues tend to become weaker with age. Tendinopathy can happen when you do a movement over and over in your job, sport, home or hobby. Some conditions and lifestyle factors can negatively affect the blood supply to the rotator cuff tendons. These include diabetes, obesity and smoking. Rotator cuff tear Overtime, tendons can wear out and eventually tear. A sudden injury also can cause tears in the rotator cuff muscles or tendons. An injury can happen one of many ways, such as from a fall, a car accident, or a sport activity. In some cases, only a small part of one or more tendons tears. This is called a partial thickness tear. If one or more tendons tear all the way through, it is called a complete or full thickness tear. Think of a tendon as a rope that has many fibers. A partial thickness tear affects a few of the fibers. A complete thickness tear affects the entire rope. The severity of a tear depends on how much of the tendon is affected. Diagnosis and Treatments Diagnosing Rotator cuff problems often are diagnosed based on your symptoms, medical history and a physical exam. If more testing is needed, you also may have imaging tests such as X-rays, magnetic resonance imaging (MRI) or ultrasound. These tests help to see your tendons and rule out other possible causes for your symptoms. Before you begin any treatment for a rotator cuff problem, other conditions are ruled out first. Treatment options Treatment depends on your rotator cuff problem. Your health care provider talks about your treatmentoptions with you. You and your health care provider can plan the best treatment for you. Some treatments you can do on your own. Others you do with the help of your health care team. You likely will have a combination of treatments. Treatment options include the following. Ice Icing helps lessen inflammation and pain. Unless told otherwise by your health care provider: Apply an ice pack for 10 to 15 minutes, two or three times a day. Place the ice pack on top of your shirt or wrap it in a thin towel. Do not put the ice pack directlyon your skin. Heat Heat, usually with a heating pad or warm shower, helps relax sore tissues, especially before exercise. However, heat should not be used soon after an injury. Use heat treatments as you are told by yourhealth care provider. Active rest Active rest means you do not do movements or tasks that cause pain. These may include heaving lifting, repetitive motions or reaching above your head. If a movement causes more than slight discomfort, do not do it. However, active rest does not mean that you completely stop using your shoulder. Not using your shoulder can cause it to stiffen. Be mindful of your posture. Keep your neck, shoulder and hips in line when you stand and sit. Sit wander chair that supports your back and arms and that allows you to have your feet flat on the floor. Medication Your health care provider may recommend that you take [id number] pain relievers or anti-inflammatory medication. Some can help lessen swelling in sore or injured tissues and also lessen pain. Others only lessen pain. These medications include ibuprofen, aspirin, naproxen and acetaminophen. Your health care provider may recommend that you apply a medication to your shoulder area to help with pain. These medications include creams and ointments that contain menthol, salicylates, or capsaicin that help lessen pain. Sometimes medication is prescribed for rotator cuff problems. If so, take the medication as you havebeen told by your health care provider. Therapy and rehabilitation Attend physical or occupational therapy and rehabilitation appointments to get information, education and treatments to help your rotator cuff heal as quickly as possible. The type of therapy you need depends on your rotator cuff problem. Your therapist can explain treatment options. Then you both plan the best way to treat your rotator cuff problem. Your physical or occupational therapy may include one or more of the following: Stretching and strengthening exercises. They can improve flexibility and strength of the muscles that surround your shoulder joint. For exercises to be of help, you need to follow the care plan and instructions your therapist gives you. Manual therapy techniques, also known as shoulder joint mobilization. Learning to apply kinesiology tape. Tissue massage. Ultrasound therapy. Electrical stimulation. Correct posture education. Learning activity modifications. Injections Your health care provider may recommend that you have injections to help lessen pain and reduce swelling. Usually, the injections consist of an anesthetic and cortisone. It can take from a few hours toa couple of days before the injection helps. You may need more than one treatment. Talk with your health care provider about the possible risks and benefits of injections. Surgery A sudden injury that severely tears your rotator cuff muscles or tendons may require surgery. Likewise, surgery may be recommended for a bothersome rotator cuff injury you have had for some time. The surgery depends on the type, size and location of your rotator cuff injury. Surgical options your health care team considers include: Arthroscopic surgery. Open surgery. Removal of damaged tissue. Transfer of alternative tendons. Shoulder joint replacement. Talk with your health care provider about the possible risks and benefits of surgery. Also talk about what you can expect about recovery and rehabilitation. ROTATOR CUFF STRETCHING AND STRENGTHENING EXERCISES (NONOPERATIVE MANAGEMENT) Shoulder Stretching Exercises When you do these [...] and relax. Do each stretch 5-10 time(s) 3 time(s) a day. Do each stretch for [...] do the stretch again. Shoulder flexion while lying Lie on your back on a firm, flat surface. Bend your knees so your feet are flat on the surface. Clasp your hands together with your arms straight above you. See Figure 1. Slowly bring your straight arms over your head until your hands are on or near the surface. Do this stretch with a wand if your health care provider tells you to do so. Shoulder flexion while sitting (options 2) Sit with your affected side next to [...] wand to rotate your left arm outward. Shoulder external rotation - standing/sitting option (Figure 4b) Bend your elbows at a 90-degree angle to hold the wand with your right hand on top of and your left hand under the wand. Put a folded towel between your left elbow and your side. Your goal is to keep the towel there as you do this exercise. Keeping your elbows at your side, use your right arm and the wand to rotate your left arm outward. Internal shoulder rotation Sit or stand to do this exercise. Keep your back straight as you do this exercise; do not lean forward. Grasp a towel with the hand of your affected arm. Position your hand in the center of your back. Use your other hand to reach over your unaffected shoulder to grasp the towel. See Figure 4. Use your unaffected arm to pull the towel upward so your affected arm moves upward along the center of your back. Do this until you feel a gentle stretch in your shoulder. Sleeper stretch Lie on your affected side with your elbow bent and arm at a 90-degree angle. Place a rolled towel between your arm and the floor. Use your other hand to grasp above your wrist. Slowly push your arm downward until you feel a gentlestretch in the back of your shoulder. See Figure 5. You also can do the sleeper stretch while standing against a wall. Horizontal shoulder adduction Sit or stand to do this exercise. Keep your back straight as you do this exercise. Use the hand of your unaffected arm to cradle the elbow of your affected arm. See Figure 6. Lift your affected arm to a comfortable height. Pull your affected arm across your chest until you feel a gentle stretch in your shoulder. If your health care provider tells you to do so, change the height of your affected arm to change the area stretched. Shoulder Strengthening Exercises Using an Elastic Band For the following four exercises: Relax your shoulders and maintain correct posture. Breathe normally; do not hold your breath. Do each exercise only within a comfortable range. To make the resistance of the elastic band less difficult, lengthen the elastic band. To make the resistance of the elastic band more difficult, shorten the elastic band. Hold the end position of the exercise for 8 seconds before slowly returning to the starting position. Do each exercise 3 time(s) 2 time(s) a day. Do these exercises for both shoulders unless told otherwise by your health care provider. Do each exercise slowly and gently as you were shown by your health care provider. An exercise should not cause new or increased pain. If it does, stop doing the exercise and contact a member of your health care team. Double arm row (Figure 13) Tie the middle of the elastic band to a door handle or other sturdy object. Test it to ensure your safety. Sit on a chair or exercise ball or stand facing the band or the cables of a row machine. With your arms straight in front of you and your thumbs pointing upward, grasp the ends of the band or the handles of the cables. Keep your back straight and your arms even as you do this exercise. Using the same amount of force with both arms, squeeze your shoulder blades together as you evenly pull your elbows back and down to your sides. Shoulder extension using an elastic band (Figure 14) Tie a large knot on one end of the elastic band. Put the knotted area of the band over a door. Closethe door securely. Hold the other end of the band with the hand of the arm you are exercising. Stand facing the door about two arms??? length away. Keeping your elbow slightly bent and palm facing inward, extend your arm toward the door at a comfortable height no higher than your shoulder. Pull the band down to your side. Shoulder internal rotation using an elastic band (Figure 15) Tie one end of the elastic band around a door knob. Close the door securely. Hold the other end of the band with the hand of the arm you are exercising. Stand with your side toward the door about two arms??? length away. Put a folded towel under the arm you are exercising. Yourgoal is to keep the towel there as you do this exercise. Keeping your elbow at your side and bent at a 90-degree angle, move your hand toward the door. Keeping your elbow at your side and bent at a 90-degree angle, pull the band to your stomach. Shoulder external rotation using an elastic band (Figure 16) Tie one end of the elastic band around a door knob. Close the door securely. Hold the other end of the band with the hand of the arm you are exercising. Stand so the arm you arenot exercising is toward the door about an arm???s length away. Put a folded towel under the arm you are exercising. Your goal is to keep the towel there as you do this exercise. Keeping your elbow at your side and bent at a 90-degree angle, bring your palm to your stomach. Keeping your elbow at your side and bent at a 90-degree angle, pull the band out to your side. Healthy Shoulder Care When your shoulder is feeling better, you can do many things to help keep it healthy and pain-free. Unless you are told otherwise, do the following healthy shoulder tips. Follow the care plan and all of the instructions given to you by your health care team members. While it can be tempting to stop doing what works once you feel better, you can help prevent future problems by continuing to do what works well. Before using your shoulder for tasks, activities and sports, stretch it to warm up the shoulder joint tissues. If you are not sure how to stretch your shoulder, use the stretching exercises in this material or talk with your physical or occupational therapist. Listen to your body. When you feel even the slightest discomfort or pain, take time to figure out what is causing it. Then determine what you need to do to prevent the pain. Do regular exercise that helps your entire body. Get to and stay at a healthy weight. Being overweight puts more stress on the tissues around your joints. Arrange your work area to fit your body. This can help you maintain correct posture when reaching and possibly lessen repetitive movements. When you carry objects, keep them close to your body. Ask for help when you need it. Eat nutritious food and drink enough water to give your body what it needs to work well for you. If you smoke, stop for the health of your joint tissues. Talk with your health care provider if you need help with quitting smoking. It is never too late. Talk with a member of your health care team if you have questions or concerns, or if you need additional information or guidance. This material is for your education and information only. This content does not replace medical advice, diagnosis or treatment. New medical research may change this information. If you have questions about a medical condition, always talk with your health care provider. ?? 2016 [facility] [employer] ([employer]). All rights reserved. [id number] documented in this encounter Progress Notes RomanMisti hyde APRN, C.N.P., M.S.N. - 10/16/2021 11:30 AM CDT Involved Side: Right Date of Surgery: 07/22/21 Description of treatment: 1. 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 Right open biceps tenodesis SUBJECTIVE HISTORY OF PRESENT ILLNESS Ms. Carmichael returns for follow up of her shoulder. She is nearly 3 months status post shoulderreplacement as outlined above. She is recovering very well. She is working on home stretching exercises and using her arm for lightdaily activity. OBJECTIVE PHYSICAL EXAMINATION GENERAL: The patient is alert and oriented. NEURO: Sensation intact to light touch in the axillary, radial, ulnar and median nerve distributions SKIN: Incision is clean, dry, and intact without erythema or drainage VESSELS: Radial pulses palpable and symmetric RANGE OF MOTION: Elevation (passive) Elevation (active) External Rotation (passive) External Rotation (active) Internal rotation (active) Right 0 160 0 90 Pocket DELTOID CONTRACTILE: Yes RADIOGRAPHS Radiographs demonstrate implants in acceptable position, without failure, loosening, wear, subluxation or dislocation ASSESSMENT / PLAN PLAN We reviewed interval progress, radiographs, and plan for Ms. Carmichael. She continues to do quite well following her shoulder replacement. Her motion is progressing to her satisfaction. At this point her restrictions are eliminated and she can begin gentle strengthening and stretching in all planes. She can continue and increase all of her activities as she is comfortable. We will see her back daniel as needed basis from here. All of her questions were answered, she understood and Is happy with the plan. CLINICAL OUTCOME ASSESSMENTS SANE Score (How would you rate your shoulder today as a percentage of normal?): Not assessed Satisfaction: Not assessed Reoperations: No Complications: No None If yes, details: N/A Answers submitted by the patient for this visit: General Review of Symptoms (Submitted on 10/16/2021) No general issues: Yes No eye issues: Yes No ENT issues: Yes No heart issues: Yes No respiratory issues: Yes No GI issues: Yes No muscle/bone issues: Yes No skin issues: Yes No neurologic issues: Yes No mental health issues: Yes No blood/lymph issues: Yes No urinary/reproductive issues: Yes documented in this encounter Plan of Treatment Not on filedocumented as of this encounter Visit Diagnoses Diagnosis Aftercare Total Shoulder Arthroplasty - Primary documented in this encounter
--- OUTSIDE RECORDS SUMMARY | 2021-12-03 11:37 | XMS_ITS | Encounter Summary ---
:1955 Author Organization [facility] Address [address] [place] [address] Care Team Providers Name Role Phone Unavailable Primary Care Provider Unavailable Reason for Referral Outpatient (Routine) - Closed Specialty Diagnoses / Procedures Referred By Contact Refer red To Contact Diagnoses Pain Shoulder Right Misti Owens APRN, [facility] Procedures DX Shoulder Right 2+ Views C.N.PMima, M.S.N. 200 [place] [address] Referral ID Status Reason Start Date Expiration Date Visits Requ ested Visits Authorized [id number] Closed 07/22/2021 07/22/2022 1 1 Reason for Visit Outpatient (Routine) - Closed Specialty Diagnoses / Procedures Referred By Contact Refer red To Contact Diagnoses Pain Shoulder Right Misti Owens APRN, [facility] Procedures DX Shoulder Right 2+ Views C.N.P., M.S.N. [address] [place] [phone] Referral ID Status Reason Start Date Expiration Date Visits Requ ested Visits Authorized [id number] Closed 07/22/2021 07/22/2022 1 1 Encounter Details Date Type Department Care Team Description 08/05/2021 Hospital Encounter Department of Misti Owens Right Radiology, Alex Loja APRN, Building, in C.N.P., M.S.N. [place], [place] [address] [facility] [address] [place] [phone] Social History Tobacco Use Types Packs/Day Years [...] or relatives? How often do you attend bahai or More than 4 times per year 05/09/2021 spiritism services? Do you belong to any clubs or No 05/09/2021 organizations such as bahai groups, unions, fraternal or athletic groups, or [...] place to sleep or slept in a long-term (including now)? Education Answer Date Recorded What is the highest level of school Master's degree (e.g., M A, MS, 02/27/2020 you have completed or the highest Melanie, MEd, CITY MAINTENANCE MANAGER, KARLI) degree you have received? 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 tablet calcium carb-vit 250 mg. 0 07/22/2021 D3-magnesium 250-200-125 mg-unit-mg capsule calcium citrate-vitamin Take 2 tablets by 0 07/22 D3 (CITRACAL+D) 315 mg-5 mouth 2 (two) times a mcg (200 Unit) per day with meals. This tablet may be purchased over the counter DIETARY SUPPLEMENT ORAL Take 10 tablets by 0 mouth as needed. Wazyren tea pills for consitpation docosahexaenoic acid/epa Take 2 capsules by 0 (FISH OIL ORAL) mouth daily. fluticasone Inhale 1 puff every 0 11/13/2020 propion-salmeteroL morning. (AIRDUO RESPICLICK) 232-14 mcg/actuation inhaler fluticasone propionate Administer 2 sprays 0 12/18 (FLONASE) 50 into each nostril as mcg/actuation nasal needed. spray lisinopriL Take 5 mg by mouth 0 12/22/2019 (PRINIVIL,ZESTRIL) 5 mg every morning. tablet montelukast (SINGULAIR) TAKE 1 TABLET BY 90 tablet 3 2020 10 mg tablet MOUTH EVERYDAY AT BEDTIME multivitamin capsule Take 1 capsule by 0 mouth daily. TURMERIC ORAL Take 2 tablets by 0 mouth daily. Ventolin HFA 90 Inhale 2 puffs every 18 g 11 01/15/2021 mcg/actuation inhaler 4 (four) hours as needed for wheezing or shortness of breath. vitamin B complex (B Take 1 tablet by 0 COMPLEX ORAL) mouth daily. ondansetron ODT Dissolve 1 tablet (4 15 tablet 0 07/22/2021 08/21/2021 (ZOFRAN-ODT) 4 mg mg total) in the disintegrating tablet mouth every 8 (eight) hours as needed for nausea or vomiting. documented as of this encounter Plan of Treatment Not on filedocumented as of this encounter Procedures Procedure Name Priority Date/Time Associated Comments Diagnosis DX SHOULDER RIGHT RAD - Routine 08/05/2021 10:47 Pain Shoulder Resu lts for this 2+ VIEWS (most inpatients AM CDT Right procedure a re in and all the results outpatients) section. documented in this encounter Results DX Shoulder Right 2+ Views (08/05/2021 10:47 AM CDT) Anatomical Region Laterality Modality Upper Extremity, Shoulder, Musculoskeletal RST LOS, Right Digital Radiography Musculoskeletal ARZ LOS, Muskuloskeletal FLA LOS Specimen (Source) Anatomical Collection Method Collection Time Re ceived Time Location / / Volume Laterality 08/05/2021 10:48 AM CDT Impressions 08/05/2021 10:49 AM CDT Since 07/22/2021, the postoperative subcutaneous emphysema about the right shoulder has resolved. Right reverse TSA. Again seen is a tiny calcification or osseous fragment medial to the proximal humeral metadiaphysis, similar to prior radiographs 07/22/2021. Narrative 08/05/2021 10:49 AM CDT EXAM: ??DX SHOULDER RIGHT 2+ VIEWS Procedure Note Peggy Mccann M.D. - 08/05/2021For matting of this note might be different from the original. EXAM: DX SHOULDER RIGHT 2+ VIEWS IMPRESSION: Since 07/22/2021, the postoperative subc utaneous emphysema about the right shoulder has resolved. Right reverse TSA. Again seen is a tiny calcification or osseous fragment medial to the proximal humeral metadiaphysis, similar to prior radiographs 07/22/2021. Misti Owens APRN, C.N.P., M.S.N. IMG DIAGNOSTIC IM AGING PROCEDURES documented in this encounter Visit Diagnoses Diagnosis Pain Shoulder Right documented in this encounter
--- OUTSIDE RECORDS SUMMARY | 2021-12-03 11:37 | XMS_ITS | Encounter Summary ---
:1955 Author Organization [facility] Address [address] [place] [address] Care Team Providers Name Role Phone Unavailable Primary Care Provider Unavailable Encounter Details Date Type Department Care Team Description 08/25/2021 Clinical Communication Department of Alfredo De Souza Orthopedic Surgery jarred Stahl M.D. [place], [place] [address] [facility] [address] [place] [phone] Social History Tobacco Use Types Packs/Day Years [...] or relatives? How often do you attend sabianist or More than 4 times per year 05/09/2021 rastafarian services? Do you belong to any clubs or No 05/09/2021 organizations such as sabianist groups, unions, fraternal or athletic groups, or [...] place to sleep or slept in a intermediate (including now)? Education Answer Date Recorded What is the highest level of school Master's degree (e.g., M Gris, MS, 02/27/2020 you have completed or the highest Melanie, MEd, SYSTEM CONFIGURATION SPECIALIST, KARLI) degree you have received? 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 No further questions. Telephone Encounter - Norma Bruce - 08/25/2021 9:08 AM CDT The patient called; she is scheduled to have eyelid surgery on September 10. The patient is questioningwhether or not she can have eyelid surgery since she just had surgery with Dr. De Souza about a month ago. The patient can be reached at [phone]. documented in this encounter Plan of Treatment Not on filedocumented as of this encounter Visit Diagnoses Not on filedocumented in this encounter
--- OUTSIDE RECORDS SUMMARY | 2021-12-03 11:37 | XMS_ITS | Encounter Summary ---
:1955 Author Organization [facility] Address [address] [place] [address] Care Team Providers Name Role Phone Unavailable Primary Care Provider Unavailable Reason for Referral Outpatient (Routine) - Authorized Specialty Diagnoses / Procedures Referred By Contact Refer red To Contact Diagnoses Cancer Breast Family History Brigid Snow M.D. [facility] Procedures BI Breast Screening Bilateral with Tomosynthesis [address] [place], [place] [phone] Referral ID Status Reason Start Date Expiration Date Visits V isits Requested Authorized [id number] Authorized 08/29/2021 08/29/2022 1 1 utpatient (Routine) - Authorized Specialty Diagnoses / Procedures Referred By Contact Refer red To Contact Breast Clinic Brigid Snow M.D . [facility] [address] [place] [address] Referral ID Status Reason Start Date Expiration Date Visits V isits Requested Authorized [id number] Authorized 08/29/2021 08/29/2022 1 1 utpatient (Routine) - Closed Specialty Diagnoses / Procedures Referred By Contact Refer dequan To Contact Clinical Genomics Diagnoses Cancer Breast Family History Brigid Snow M.D. [facility] [address] [place] [phone] Referral ID Status Reason Start Date Expiration Date Visits Requ ested Visits Authorized [id number] Closed 08/29/2021 08/29/2022 1 1 Reason for Visit Reason Comments Consult Appointment Request (Routine) - Closed Specialty Diagnoses / Procedures Referred By Contact Refer red To Contact Breast Clinic Diagnoses Breast Lump Referral ID Status Reason Start Date Expiration Date Visits Requ ested Visits Authorized [id number] Closed 06/26/2021 06/26/2022 1 1 Encounter Details Date Type Department Care Team Description 08/29/2021 Comprehensive Visit Breast Diagnostic Brigid Snow, Cancer [facility] in [place] Family History [address] (Primary Dx) [place], [place] [address] [place] [address] [place], [place] [phone] (Work) [phone] Social History Tobacco Use Types Packs/Day Years [...] More than 4 times per year 05/09/2021 amish services? Do you belong to any clubs [...] minutes do you engage in exercise at is 40 min 05/09/2021 level? Stress Answer [...] place to sleep or slept in a m[facility]p (including now)? Education Answer Date Recorded What is the highest level of school Master's degree (e.g., M A, MS, 02/27/2020 you have completed or the highest Melanie, MEd, ASW/ASUW TACTICAL AIR CONTROLLER, KARLI) degree you have received? 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 Molecular Breast Imaging (MBI) (Peruvian)documented in this encounter Consult Notes Brigid Snow M.D. - 08/29/2021 1:30 PM CDT SUBJECTIVE Chief Complaint/Reason for Visit: Megan Carmichael is a 65 y.o. female presenting due to a family history of breast and recentabnormal mammography. Regarding her family history of breast cancer, her mom was diagnosed with ovarian cancer at age 68. Her maternal grandmother had breast cancer at the age of 45, 2 of her maternal grandmother's sisters had breast cancer in their 50s. Nobody in the family was tested for genetic mutations, except the patient who tested negative for BRCA 1 and 2 mutations many years ago. She currently has no breast concerns, she performs occasional breast self examinations. Recent annual screening mammography from May 2021 performed elsewhere was reviewed by [place] [facility] with the following findings: Screening mammography showed an asymmetry in the upper outer breast. Diagnostic views of this area showed that asymmetry persisted in the axillary tail. However, a mammogram dating back to 2015 demonstrated that area to be stable, favoring a benign process. This may alsohave been present on the mammogram of 2006. A diagnostic right breast ultrasound was also performed June 20, 2021 showing normal dense breast tissue. Left breast was normal. The patient mentions some symptoms of bilateral breast pain, especially with lying on her abdomen. No nipple discharge, retraction or skin changes and no masses. Breast cancer risk profile: 4, para 3, 1st parity at the age of 22. She did breastfeed. Menarche at age 14, she had surgical menopause to or when she underwent prophylactic hysterectomy and bilateral salpingo-oophorectomy. She did use control pills for more than 11 years in the past, including before 1974. No fertility medications. No hormone replacement therapy. She did have breast biopsies in the past, benign. No radiation treatments. No smoking history. Secondhand cigarette smoke exposure for more than 11 years in the past. Alcohol is approximately 5 drinks a week. She exercises regularly. Family history as mentioned above. In addition her son had testicular cancer at age 35, paternal aunt had uterine cancer after age 50. The following portions of the patient's history were reviewed and updated as appropriate: allergies,current medications, family history, medical history, social history, surgical history and problem list. ALLERGIES: Allergies Allergen Reactions ??? Cigarette Smoke Shortness of breath ??? Tramadol Nausea Only, Anxiety, Palpitations, Rash and Headache ??? Trimethoprim Hives and Rash ??? Cat Dander Shortness of breath ??? Mold Shortness of breath ??? Pollen Extracts Shortness of breath ??? Adhesive Tape-Silicones Other (see comments) ??? Sulfa (Sulfonamide Antibiotics) Rash CURRENT MEDICATIONS: Current Outpatient Medications: ??? ascorbic acid, vitamin C, (VITAMIN C) 500 mg tablet, Take 1,000 mg by mouth daily., Disp: , Rfl: ??? calcium citrate-vitamin D3 (CITRACAL+D) 315 mg-5 mcg (200 Unit) per tablet, Take 2 tablets by mouth 2 (two) times a day with meals. This may be purchased over the counter, Disp: , Rfl: ??? DIETARY SUPPLEMENT ORAL, Take 10 tablets by mouth as needed. Christy tea pills for consitpation,Disp: , Rfl: ??? docosahexaenoic acid/epa (FISH OIL ORAL), Take 2 capsules by mouth daily., Disp: , Rfl: ??? fluticasone propion-salmeteroL (AIRDUO RESPICLICK) 232-14 mcg/actuation inhaler, Inhale 1 puff every morning., Disp: , Rfl: ??? fluticasone propionate (FLONASE) 50 mcg/actuation nasal spray, Administer 2 sprays into each nostril as needed., Disp: , Rfl: ??? lisinopriL (PRINIVIL,ZESTRIL) 5 mg tablet, Take 5 mg by mouth every morning., Disp: , Rfl: ??? montelukast (SINGULAIR) 10 mg tablet, TAKE 1 TABLET BY MOUTH EVERYDAY AT BEDTIME (Patient takingdifferently: Take 10 mg by mouth every morning.), Disp: 90 tablet, Rfl: 3 ??? multivitamin capsule, Take 1 capsule by mouth daily., Disp: , Rfl: ??? TURMERIC ORAL, Take 2 tablets by mouth daily., Disp: , Rfl: ??? Ventolin HFA 90 mcg/actuation inhaler, Inhale 2 puffs every 4 (four) hours as needed for wheezing or shortness of breath., Disp: 18 g, Rfl: 11 ??? vitamin B complex (B COMPLEX ORAL), Take 1 tablet by mouth daily., Disp: , Rfl: Review of Systems: OBJECTIVE PHYSICAL EXAM: BP 146/87 (BP Location: Left arm, Patient Position: Sitting, Cuff Size: Regular) Pulse 71 Ht 154.7 cm Wt 59.3 kg BMI 24.78 kg/m?? Body mass index is 24.78 kg/m??. General: Nonacute distress. Breasts: D -size cup, symmetric in size and shape, nipples are everted bilaterally. There is no supraclavicular, infraclavicular or axillary lymphadenopathy. Palpation of the right breast reveals soft,fibroglandular texture throughout, without dominant masses or nipple discharge. Palpation of the left breast reveals soft, fibroglandular texture throughout, without dominant masses or nipple discharge. There is significant bilateral chest wall discomfort, right more than left, quite diffusely but more pronounced in the lower outer quadrants bilaterally. ASSESSMENT / PLAN #1 Family history of breast cancer and ovarian cancer (mom with ovarian cancer, maternal grandmotherwith breast cancer, 2/3 degree relatives with breast cancer) #2 Negative BRCA 1 and 2 mutation in the remote past #3 Abnormal outside mammography, thought to be benign by [place] [facility] interpretation #4 Bilateral chest wall discomfort right more than left #5 Status post prophylactic hysterectomy and risk reduction salpingo-oophorectomy From the breast cancer risk standpoint, we proceeded to calculate her risk through the CLEMENTINA model. This resulted in a lifetime risk of 9% , and 10 year risk of 5%. This is a very reasonable risk and I do not recommend breast MRI. [place] [facility] has assessed her breast tissue density to be high (C). She could potentially consider molecular breast imaging study every 2 to 3 years, continue annual screening mammography. She is not a candidate for chemo prevention. Given her strong family history of breast and ovarian carcinoma in 1st, 2nd and 3rd degree relatives, I believe there is still a high chance for potential genetic mutations in different genes than BRCA1 and 2, therefore recommendation to proceed with genetic consultation was given and she is agreeable. Regarding the chest wall pain, I advised wearing a good supportive bra at all times, including a soft breast night. Application of heat alternating with cold to the area of chest wall pain is recommended. She is welcome to return to our continuity breast clinic annually, she was seen previously for many years in our clinic and I think would be reasonable to follow, given her family history. Breast Clinic follow-up recommendations: 1. Perform regular breast self examinations report changes the breast clinic. 2. Return in 1 year to the continuity breast clinic for a clinical breast examination and your annual screening mammography. 3. Consider every 2 to 3 years molecular breast image study, given dense breast tissue on mammography PATIENT EDUCATION: Ready to learn, no apparent learning barriers were identified; learning preferences include listening. Explained diagnosis and treatment plan; patient expressed understanding of the content. documented in this encounter Plan of Treatment Scheduled Orders Name Type Priority Associated Order Schedule Diagnoses BI Breast Screening Imaging RAD - Routine (most Cancer Breast Expected: Bilateral with inpatients and all Family History 08/29 Tomosynthesis outpatients) (Approximate), Expires: 11/29/2022 Scheduled Referrals Name Type Priority Associated Diagnoses Order S markus Clinical Genomics Outpatient Referral Routine Cancer Breast Fa vivi Expected: - General genetics History 2 consult (clinic) (Approximat e), Expires: 11/29/2022 Breast Clinic Outpatient Referral Routine Expecte d: office visit 08/29/2022 (clinic) (Approximate), Expires: 11/29/2022 documented as of this encounter Visit Diagnoses Diagnosis Cancer Breast Family History - Primary documented in this encounter
--- OUTSIDE RECORDS SUMMARY | 2021-12-03 11:37 | XMS_ITS | Encounter Summary ---
:1955 Author Organization [facility] Address [address] [place] [address] Care Team Providers Name Role Phone Unavailable Primary Care Provider Unavailable Reason for Referral Outpatient (Routine) - Closed Specialty Diagnoses / Procedures Referred By Contact Refer red To Contact Diagnoses Arthritis Shoulder Alfredo De Souza M.D. [facility] Procedures DX Shoulder Right 2+ Views [address] [place] [phone] Referral ID Status Reason Start Date Expiration Date Visits Requ ested Visits Authorized [id number] Closed 09/04/2021 09/04/2022 1 1 Reason for Visit Outpatient (Routine) - Closed Specialty Diagnoses / Procedures Referred By Contact Refer red To Contact Diagnoses Arthritis Shoulder Alfredo De Souza M.D. [facility] Procedures DX Shoulder Right 2+ Views [address] [place] [address] Referral ID Status Reason Start Date Expiration Date Visits Requ ested Visits Authorized [id number] Closed 09/04/2021 09/04/2022 1 1 Encounter Details Date Type Department Care Team Description 10/16/2021 Hospital Encounter Department of Alfredo De Souza Shoulder Radiology, Alex Stahl M.D. [facility], in [address] [place] [phone] [place] [address] [place], [place] (Work) [phone] Social History Tobacco Use Types Packs/Day Years [...] or relatives? How often do you attend amish or More than 4 times per year 05/09/2021 congregational services? Do you belong to any clubs or No 05/09/2021 organizations such as amish groups, unions, fraternal or athletic groups, or [...] place to sleep or slept in a residential (including now)? Education Answer Date Recorded What is the highest level of school Master's degree (e.g., M A, MS, 02/27/2020 you have completed or the highest Melanie, MEd, PIPING SUPERVISOR, KARLI) degree you have received? 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 No evidence of hardware failure. Alfredo [facility] MEL HUBBARD documented in this encounter Visit Diagnoses Diagnosis Arthritis Shoulder documented in this encounter
--- OUTSIDE RECORDS SUMMARY | 2021-12-03 11:37 | XMS_ITS | Encounter Summary ---
:1955 Author Organization [facility] Address [address] [place] [address] Care Team Providers Name Role Phone Unavailable Primary Care Provider Unavailable Reason for Referral Outpatient (Routine) - Closed Specialty Diagnoses / Procedures Referred By Contact Refer red To Contact Diagnoses Pain Shoulder Right Misti Owens APRN, [facility] Procedures DX Shoulder Right 2+ Views C.N.PMima, M.S.N. [address] [place] [address] Referral ID Status Reason Start Date Expiration Date Visits Requ ested Visits Authorized [id number] Closed 07/22/2021 07/22/2022 1 1 Reason for Visit Outpatient (Routine) - Closed Specialty Diagnoses / Procedures Referred By Contact Refer red To Contact Diagnoses Pain Shoulder Right Misti Owens APRN, [facility] Procedures DX Shoulder Right 2+ Views C.N.PMima, M.S.N. [address] [place] [phone] Referral ID Status Reason Start Date Expiration Date Visits Requ ested Visits Authorized [id number] Closed 07/22/2021 07/22/2022 1 1 Encounter Details Date Type Department Care Team Description 09/04/2021 Hospital Encounter Department of Misti Owens Right Radiology, Thais Loja APRN, Building, in C.N.PMima, M.S.N. [place], [place] 200 [facility] [address] [place] [phone] Social History Tobacco Use Types Packs/Day Years [...] or relatives? How often do you attend druze or More than 4 times per year 05/09/2021 yazidi services? Do you belong to any clubs or No 05/09/2021 organizations such as druze groups, unions, fraternal or athletic groups, or [...] place to sleep or slept in a ch[facility] (including now)? Education Answer Date Recorded What is the highest level of school Master's degree (e.g., M A, MS, 02/27/2020 you have completed or the highest Melanie, MEd, ADMITTING COORDINATOR, KARLI) degree you have received? 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 calcium carb-vit 250 mg. 0 07/22/2021 D3-magnesium 250-200-125 mg-unit-mg capsule calcium citrate-vitamin Take 2 tablets by 0 07/22 D3 (CITRACAL+D) 315 mg-5 mouth 2 (two) times a mcg (200 Unit) per tablet day with meals. This may be purchased over the counter DIETARY [...] Diagnosis DX SHOULDER RIGHT RAD - Routine 09/04/2021 1:47 Pain Shoulder Resul ts for this 2+ VIEWS (most inpatients PM CDT Right procedure a re in and all the results outpatients) section. documented in this encounter Results DX Shoulder Right 2+ Views (09/04/2021 1:47 PM CDT) Anatomical Region Laterality Modality Upper Extremity, Shoulder, Musculoskeletal RST LOS, Right Digital Radiography Musculoskeletal ARZ LOS, Muskuloskeletal FLA LOS Specimen (Source) Anatomical Collection Method Collection Time Re ceived Time Location / / Volume Laterality 09/04/2021 1:58 PM CDT Impressions 09/04/2021 1:58 PM CDT Right reverse TSA. No radiographic evide nce of loosening. Narrative 09/04/2021 1:58 PM CDT EXAM: ??DX SHOULDER RIGHT 2+ VIEWS Procedure Note Tariq Posada M.D. - 09/04/2021Forma tting of this note might be different from the original. EXAM: DX SHOULDER RIGHT 2+ VIEWS IMPRESSION: Right reverse TSA. No radiographic evide nce of loosening. Misti Owens APRN, C.N.P., M.S.N. IMG DIAGNOSTIC IM AGING PROCEDURES documented in this encounter Visit Diagnoses Diagnosis Pain Shoulder Right documented in this encounter
--- OUTSIDE RECORDS SUMMARY | 2021-12-03 11:37 | XMS_ITS | Encounter Summary ---
:1955 Author Organization [facility] Address [address] [place] [address] Care Team Providers Name Role Phone Unavailable Primary Care Provider Unavailable Reason for Visit Reason Comments Pre-visit Intake Encounter Details Date Type Department Care Team Description 10/09/2021 Clinical Communication Visit Review in Pr e-visit Intake [place], [place] [address] [place], [place] [id number] Social History Tobacco Use Types Packs/Day Years [...] or relatives? How often do you attend anabaptist or More than 4 times per year 05/09/2021 moravian services? Do you belong to any clubs or No 05/09/2021 organizations such as anabaptist groups, unions, fraternal or athletic groups, or [...] of school Master's degree (e.g., Reji Landry, MS, 02/27/2020 you have completed or the highest Melanie, MEd, REFRIGERATOR REPAIR TECHNICIAN, KARLI) degree you have received? 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
--- OUTSIDE RECORDS SUMMARY | 2021-12-03 11:37 | XMS_ITS | Encounter Summary ---
:1955 Author Organization [facility] Address [address] [place] [address] Care Team Providers Name Role Phone Unavailable Primary Care Provider Unavailable Encounter Details Date Type Department Care Team Description 08/07/2021 Clinical Communication Department of Alfredo De Souza Orthopedic Surgery jarred Stahl M.D. [place], [place] [address] [facility] [address] [place] [phone] Social History Tobacco Use Types Packs/Day Years [...] or relatives? How often do you attend baptist or More than 4 times per year 05/09/2021 quaker services? Do you belong to any clubs or No 05/09/2021 organizations such as baptist groups, unions, fraternal or athletic groups, or [...] place to sleep or slept in a longterm (including now)? Education Answer Date Recorded What is the highest level of school Master's degree (e.g., Reji Landry, MS, 02/27/2020 you have completed or the highest Melanie, MEd, SHOE WORKER, KARLI) degree you have received? 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 - 08/07/2021 1:57 PM CDT I am away on 08/29, but we could change her appointment to the following week on 09/04 if she would like? documented in this encounter Plan of Treatment Not on filedocumented as of this encounter Visit Diagnoses Not on filedocumented in this encounter
--- OUTSIDE RECORDS SUMMARY | 2021-12-03 11:37 | XMS_ITS | Encounter Summary ---
:[address] [facility] Address [address] [place] [address] Care Team Providers Name Role Phone Unavailable Primary Care Provider Unavailable Reason for Visit Reason Comments [facility]: BC Encounter Details Date Type Department Care Team Description 10/13/2021 Clinical Communication Department of [facility] on, [facility]: BC Genetics in [place], Naty Loja M.S., [facility] [address] [facility] [address] [place] [phone] Social History Tobacco Use Types Packs/Day Years [...] or relatives? How often do you attend mormon or More than 4 times per year 05/09/2021 rastafari services? Do you belong to any clubs or No 05/09/2021 organizations such as mormon groups, unions, fraternal or athletic groups, or [...] have completed or the highest Melanie, MEd, BLUE LINE OPERATOR, KARLI) degree you have received? 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 Forwarded to the provider for review. Negative: documentation, POM, and blue sticky and result IB updated Telephone Encounter - Vane Suero - 10/21/2021 9:13 AM CDT Sample received by [employer] on 10/14/21, testing in progress Telephone Encounter - Vane Suero - 10/13/2021 1:44 PM CDT Date: 10/13/21 Lab: [facility] Test: [facility] Custom Panel Sample: Whole Blood Provider: Naty Enamorado [facility] Insurance: Government documented in this encounter Plan of Treatment Not on filedocumented as of this encounter Visit Diagnoses Not on filedocumented in this encounter
--- OUTSIDE RECORDS SUMMARY | 2021-12-03 11:38 | XMS_ITS | Encounter Summary ---
:1955 Author Organization [facility] Address [address] [place] [address] Care Team Providers Name Role Phone Unavailable Primary Care Provider Unavailable Encounter Details Date Type Department Care Team Description 07/24/2021 Orders Only Pharmacy Prior Auth RO Elza Carrington [phone] Social History Tobacco Use Types Packs/Day Years [...] More than 4 times per year 05/09/2021 anabaptism services? Do you belong to any clubs [...] place to sleep or slept in a [place] [facility] [place] (including now)? Education Answer Date Recorded What is the highest level of school Master's degree (e.g., Reji Landry MS, 02/27/2020 you have completed or the highest Melanie, Vladimir, SEAL EXTRUSION OPERATOR, KARLI) degree you have received? 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
--- OUTSIDE RECORDS SUMMARY | 2021-12-03 11:38 | XMS_ITS | Encounter Summary ---
:1955 Author Organization [facility] Address [address] [place] [address] Care Team Providers Name Role Phone Unavailable Primary Care Provider Unavailable Reason for Visit Reason Comments OSM Notification Encounter Details Date Type Department Care Team Description 06/26/2021 Clinical Communication Breast Diagnostic Brigid Snow, [facility] Notification Clinic in [facility], [address] [place], [place] [address] [facility] [address] [place], [place] [phone] (Work) [phone] Social History Tobacco Use Types Packs/Day Years Used Date Smoking Tobacco: Never Smokeless Tobacco: Never Alcohol Use Standard Drinks/Week Comments Yes 6 (1 standard drink = 0.6 oz pure [...] or relatives? How often do you attend congregation or More than 4 times per year 05/09/2021 judaism services? Do you belong to any clubs or No 05/09/2021 organizations such as congregation groups, unions, fraternal or athletic groups, or [...] have completed or the highest Melanie, MEd, ROAD TEST EXAMINER, KARLI) degree you have received? 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 - 07/25/2021 3:16 PM CDT Addended by: ADELINA OROZCO on: 07/25/2021 03:16 PM Modules accepted: Orders Addendum Note - Sisi Nina, L.P.N. - 07/25/2021 2:18 PM CDT Addended by: SISI NINA on: 07/25/2021 02:18 PM Modules accepted: Orders Telephone Encounter - Kelly Santana - 06/27/2021 2:16 PM CDT Start OSM Request: 08/15/2021 Kelly 1st OSM Request: 07/07: received faxed reports from [employer], scanned to [employer]. 07/07: Images pushed to [employer] by [facility] 07/15: Received 2 CDs from [facility], uploaded to [employer]. No reports included with CDs. 07/25: All outside images are in [facility]. [place] [facility] dating from 2015 back to 2004. Outside reports are in Care Everywhere and some have been scanned to [facility] 2nd OSM Request: Final Message forwarded to Margarito PERAZAN: All imaging is in [employer] as above. Reports are either scanned in or are in Care Everywhere. Please pend orders for radiology review of outside imaging for 08/[address] Snow. Telephone Encounter - Kathy Carbajal - 06/26/2021 12:42 PM CDT A Breast Clinic New appointment has been scheduled for the following indication: Patient Name: Megan Carmichael Indication: Breast Lump Appointment Date: 08/29/2021 Please refresh Care Everywhere to check for records and also work with the patient to locate and obtain: Outside Records: Mammogram/Ultrasounds NOTE: If most recent imaging was completed at [facility], then no need for interpretationof older imaging that was done elsewhere. Patient was made aware there will be associated charges from the Radiology or Pathology department to review outside imaging and pathology. When information has been received, please alert the MARGARITO PERAZAN (P RST BRS COOLER TENDER) by forwarding on this message for ordering purposes. Thank you! documented in this encounter Plan of Treatment Not on filedocumented as of this encounter Results Interpretation of Outside Breast Imaging (08/14/2021 9:09 AM CDT) Anatomical Region Laterality Modality Breast, Breast Imaging RST LOS, Breast Imaging ARZ LOS, Yulia st N/A Mammography Imaging FLA LOS, Other Specimen (Source) Anatomical Collection Method Collection Time Re ceived Time Location / / Volume Laterality 08/22/2021 8:04 AM CDT Impressions 08/22/2021 9:40 AM CDT 1. Area of mammographic concern in the upper right breast is unchanged dating back to 2015 which favors a benign process. Additional imag ing of this breast can be obtained as clinically warranted. 2. No mammographic findings of malignanc y within the left breast any additional imaging of this breast can be obtained as clinically war ranted Narrative 08/22/2021 9:40 AM CDT EXAM: ??INTERPRETATION OF OUTSIDE BREAST IMAGING, INTERPRETATION OF OUTSIDE BREAST IMAGING HISTORY/INDICATION: ??Abnormal outside m ammogram DENSITY: ??c. The breast(s) are heteroge neously dense, which may obscure small masses. FINDINGS: Right breast: Most recent screening delvis mogram submitted for review is dated 06/10/2021. Outside report describes an asymmetry in the upp er outer breast only seen on the MLO view. Diagnostic imaging includes CC and ML vi ew along with spot MLO Tomosynthesis views. Area of initial mammographic concern persists within the axillary tail. However, a 2016 mammogram demonstrates that the area of initial mammographic concern is stable. Stability over time favors a benign process. This may have also been present on the 2 007 mammogram. Diagnostic right breast ultrasound perfo rmed on 06/20/2021 include multiple static images of the upper outer breast which demonstrate nor mal dense fibroglandular tissue. No mass or distortion to account for the mammographic findings. Left breast: Most recent screening mammo gram submitted for review is dated 06/10/2021 and includes Tomosynthesis views. Procedure Note Kami Sullivan M.D. - 08/22/2021Formatti ng of this note might be different from the original. EXAM: INTERPRETATION OF OUTSIDE BREAST I MAGING, INTERPRETATION OF OUTSIDE BREAST IMAGING HISTORY/INDICATION: Abnormal outside [facility] mogram DENSITY: c. The breast(s) are heterogene ously dense, which may obscure small masses. FINDINGS: Right breast: Most recent screening delvis mogram submitted for review is dated 06/10/2021. Outside report describes an asymmetry in the upp er outer breast only seen on the MLO view. Diagnostic imaging includes CC and ML vi ew along with spot MLO Tomosynthesis views. Area of initial mammographic concern persists within the axillary tail. However, a 2016 mammogram demonstrates that the area of initial mammographic concern is stable. Stability over time favors a benign process. This may have also been present on the 2 007 mammogram. Diagnostic right breast ultrasound perfo rmed on 06/20/2021 include multiple static images of the upper outer breast which demonstrate nor mal dense fibroglandular tissue. No mass or distortion to account for the mammographic findings. Left breast: Most recent screening mammo gram submitted for review is dated 06/10/2021 and includes Tomosynthesis views. IMPRESSION: 1. Area of mammographic concern in the u pper right breast is unchanged dating back to 2016 which favors a benign process. Additional imag ing of this breast can be obtained as clinically warranted. 2. No mammographic findings of malignanc y within the left breast any additional imaging of this breast can be obtained as clinically war ranted Brigid Snow M.D. IMG BI PROCEDURES Interpretation of Outside Breast Imaging (08/14/2021 9:09 AM CDT) Anatomical Region Laterality Modality Breast, Breast Imaging RST LOS, Breast Imaging ARZ LOS, [address] st N/A Mammography Imaging FLA LOS, Other Specimen (Source) Anatomical Collection Method Collection Time Re ceived Time Location / / Volume Laterality 08/22/2021 8:04 AM CDT Impressions 08/22/2021 9:40 AM CDT 1. Area of mammographic concern in the upper right breast is unchanged dating back to 2016 which favors a benign process. Additional imag ing of this breast can be obtained as clinically warranted. 2. No mammographic findings of malignanc y within the left breast any additional imaging of this breast can be obtained as clinically war ranted Narrative 08/22/2021 9:40 AM CDT EXAM: ??INTERPRETATION OF OUTSIDE BREAST IMAGING, INTERPRETATION OF OUTSIDE BREAST IMAGING HISTORY/INDICATION: ??Abnormal outside m ammogram DENSITY: ??c. The breast(s) are heteroge neously dense, which may obscure small masses. FINDINGS: Right breast: Most recent screening delvis mogram submitted for review is dated 06/10/2021. Outside report describes an asymmetry in the upp er outer breast only seen on the MLO view. Diagnostic imaging includes CC and ML vi ew along with spot MLO Tomosynthesis views. Area of initial mammographic concern persists within the axillary tail. However, a 2016 mammogram demonstrates that the area of initial mammographic concern is stable. Stability over time favors a benign process. This may have also been present on the 2 007 mammogram. Diagnostic right breast ultrasound perfo rmed on 06/20/2021 include multiple static images of the upper outer breast which demonstrate nor mal dense fibroglandular tissue. No mass or distortion to account for the mammographic findings. Left breast: Most recent screening mammo gram submitted for review is dated 06/10/2021 and includes Tomosynthesis views. Procedure Note Kami Sullivan M.D. - 08/22/2021Formatti ng of this note might be different from the original. EXAM: INTERPRETATION OF OUTSIDE BREAST I MAGING, INTERPRETATION OF OUTSIDE BREAST IMAGING HISTORY/INDICATION: Abnormal outside delvis mogram DENSITY: c. The breast(s) are heterogene ously dense, which may obscure small masses. FINDINGS: Right breast: Most recent screening delvis mogram submitted for review is dated 06/10/2021. Outside report describes an asymmetry in the upp er outer breast only seen on the MLO view. Diagnostic imaging includes CC and ML vi ew along with spot MLO Tomosynthesis views. Area of initial mammographic concern persists within the axillary tail. However, a 2016 mammogram demonstrates that the area of initial mammographic concern is stable. Stability over time favors a benign process. This may have also been present on the 2 007 mammogram. Diagnostic right breast ultrasound perfo rmed on 06/20/2021 include multiple static images of the upper outer breast which demonstrate nor mal dense fibroglandular tissue. No mass or distortion to account for the mammographic findings. Left breast: Most recent screening mammo gram submitted for review is dated 06/10/2021 and includes Tomosynthesis views. IMPRESSION: 1. Area of mammographic concern in the u pper right breast is unchanged dating back to 2016 which favors a benign process. Additional imag ing of this breast can be obtained as clinically warranted. 2. No mammographic findings of malignanc y within the left breast any additional imaging of this breast can be obtained as clinically war ranted Brigid BARON BI PROCEDURES documented in this encounter Visit Diagnoses Diagnosis Lump In The Right Breast Unspecified Pedro drant - Primary Lump In The Right Breast Unspecified Pedro drant Lump In The Right Breast Unspecified Pedro drant documented in this encounter Additional Health Concerns Infection Onset Date Last Indicated Resolved Time COVID19 Pending 07/21/2021 07/21/2021 07/21/2021 7:14 PM CDT documented as of this encounter
--- OUTSIDE RECORDS SUMMARY | 2021-12-03 11:38 | XMS_ITS | Encounter Summary ---
:1955 Author Organization [facility] Address [address] [place] [address] Care Team Providers Name Role Phone Unavailable Primary Care Provider Unavailable Reason for Referral Medication Prior Authorization - Authorized Specialty Diagnoses / Procedures Referred By Contact Refer red To Contact Misti Owens APRN, C.NSakshi, M.S.N. [address] [place] [phone] Referral ID Status Reason Start Date Expiration Date Visits V isits Requested Authorized [id number] Authorized 04/24/2021 07/23/2022 1 1 utpatient (Routine) - Closed Specialty Diagnoses / Procedures Referred By Contact Refer red To Contact Diagnoses Pain Shoulder Right Misti Owens APRN, [place] [facility] Procedures DX Shoulder Right 2+ Views C.N.PMima, M.S.N. [address] [place] [phone] Referral ID Status Reason Start Date Expiration Date Visits Requ ested Visits Authorized [id number] Closed 07/22/2021 07/22/2022 1 1 utpatient (Routine) - Closed Specialty Diagnoses / Procedures Referred By Contact Refer red To Contact Diagnoses Pain Shoulder Right Misti Owens APRN, [facility] Procedures DX Shoulder Right 2+ Views C.N.P., M.S.N. [address] [place] [phone] Referral ID Status Reason Start Date Expiration Date Visits Requ ested Visits Authorized [id number] Closed 07/22/2021 07/22/2022 1 1 utpatient (Routine) - Closed Specialty Diagnoses / Procedures Referred By Contact Refer red To Contact Orthopedic Surgery Misti Owens APRN, [facility] C.N.PMima, M.S.N. [address] [place] [phone] Referral ID Status Reason Start Date Expiration Date Visits Requ ested Visits Authorized [id number] Closed 07/22/2021 07/22/2022 1 1 utpatient (Routine) - Closed Specialty Diagnoses / Procedures Referred By Contact Refer red To Contact Orthopedic Surgery Misti Owens APRN [facility] C.N.PMima, M.S.N. [address] [place] [phone] Referral ID Status Reason Start Date Expiration Date Visits Requ ested Visits Authorized [id number] Closed 07/22/2021 07/22/2022 1 1 Scheduling Instructions [email or web address] Reason for Visit Auth/Cert Specialty Diagnoses / Procedures Referred By Contact Refer red To Contact Diagnoses Pain Shoulder Right Pain Shoulder Right [M25.511] Procedures [place] [facility] JT TOTAL SHOULDER ARTHROPLASTY TOTAL REVERSE SHOULDER Referral ID Status Reason Start Date Expiration Date Visits Requ ested Visits Authorized [id number] 1 1 Encounter Details Date Type Department Care Team Description 07/22/2021 Hospital Encounter RST ROMB MAIN OR Alfredo De Souza Pain Shoulder Right [address] [facility] Horace Stahl [place], [place] [address] [facility] [phone] [place], [place] [phone] Social History Tobacco Use Types Packs/Day Years [...] or relatives? How often do you attend buddhism or More than 4 times per year 05/09/2021 sikhism services? Do you belong to any clubs or No 05/09/2021 organizations such as buddhism groups, unions, fraternal or athletic groups, or [...] have completed or the highest Melanie, MEd, ROLL CLEANER, KARLI) degree you have received? 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 documented as of this encounter Last Filed Vital Signs Vital Sign Reading Time Taken Comments Blood Pressure 150/80 07/22/2021 1:52 PM CDT Pulse 99 07/22/2021 1:52 PM CDT Temperature 36.3 ??C (97.3 ??F) 07/22/2021 1:52 PM CDT Respiratory Rate 16 07/22/2021 1:52 PM CDT Oxygen Saturation 98% 07/22/2021 1:52 PM CDT Inhaled Oxygen Concentration - - Weight 58.1 kg (128 lb 1.4 oz) 07/22/2021 7:01 AM CDT Height 160.5 cm (5' 3.19) 07/22/2021 7:01 AM CDT Body Mass Index 22.55 07/22/2021 7:01 AM CDT documented in this encounter Discharge Instructions AttachmentsThe following attachments cannot be sent through Care Everywhere.Your Scopolamine Patch (Burkinan)documented in this encounter Medications at Time of Discharge Medication Sig Dispensed Refills Start Date End Date DIETARY SUPPLEMENT ORAL Take 10 tablets by 0 mouth as needed. Wazyren tea pills for consitpation fluticasone Inhale 1 puff every 0 11/13/2020 [...] needed for wheezing or shortness of breath. ascorbic acid, vitamin Take 1,000 mg by 0 014 C, (VITAMIN C) 500 mg mouth daily. tablet calcium carb-vit 250 mg. 0 07/22/2021 D3-magnesium 250-200-125 mg-unit-mg capsule calcium citrate-vitamin Take 2 tablets by 0 07/22 D3 (CITRACAL+D) 315 mg-5 mouth 2 (two) times a mcg (200 Unit) per day with meals. This tablet may be purchased over the counter docosahexaenoic acid/epa Take 2 capsules by 0 (FISH OIL ORAL) mouth daily. vitamin B complex (B Take 1 tablet by 0 COMPLEX ORAL) mouth daily. ibuprofen (ADVIL,MOTRIN) Take 200 mg by mouth 0 08/05/2021 200 mg tablet every 6 (six) hours as needed for pain. ondansetron ODT Dissolve 1 tablet (4 15 tablet 0 07/22/2021 08/21/2021 (ZOFRAN-ODT) 4 mg mg total) in the disintegrating tablet mouth every 8 (eight) hours as needed for nausea or vomiting. acetaminophen (TYLENOL) Take 2 tablets (1,000 0 0 07/22/2021 08/05/2021 500 mg tablet mg total) by mouth 4 (four) times a day. For pain - this medication may be purchased over the counter oxyCODONE (ROXICODONE) 5 Take 0.5-1 tablets 15 tablet 0 08/202108/05/2021 mg immediate release (2.5-5 mg total) by tabletIndications: Acute mouth every 4 (four) Pain hours as needed for pain Indication: Acute Pain. 2.5 mg for pain 3-6, 5 mg for pain 7-10 sennosides-docusate Take 1 tablet by 0 07/22/2021 08/05/2021 sodium (Senna with mouth 2 (two) times a Docusate Sodium) 8.6-50 day. For constipation mg per tablet - this medication may be purchased over the counter documented as of this encounter OR Notes Op Note - Alfredo De Souza M.D. - 07/22/2021 8:09 AM CDT Pre-op Diagnosis Rotator cuff tear arthropathy, right Post-op Diagnosis Rotator cuff tear arthropathy, right A first aid instructor actively participated and was necessary for one or more of the following: opening,exposure and visualization during the case, maintaining hemostasis, wound closure resulting in its safe and expeditious completion. Findings As expected. Complications None Operative Note Narrative See below CONSENT: We reviewed operative and non-operative treatment options in extensive detailing, including a discussion of the risks, benefits, and alternatives to surgical and nonsurgical management. We discussed the risks of medical complications, anesthesia related complications, device or implant related complications, infection, stiffness, pain, arthritis, need for further surgery, the risk of blood clots, strokes, and even . We discussed overlapping surgery, and how [facility] manages this. The patientagreed and wished to proceed. Written informed consent was placed in the chart. The risks, benefits, and alternatives to the planned procedure were discussed in detail, including the risk of exposure to COVID-19 within the facility. All questions pertaining to the procedure and these risks were answered and the patient agreed to proceed. PROCEDURE IN DETAIL: The patient was seen in the preoperative holding area. Surgical extremity was site marked. She was brought to the operating room, induced with a general anesthetic, positioned in beach chair position, all bony prominences were padded. Her surgical extremity was prepped and draped in usual sterile fashion. We completed a preprocedural pause including patient, site, and side verification as well as verification of implants in the room. We began with a deltopectoral approach. Carried dissection down to the deltoid pectoralis. Deltoid was taken laterally, pectoralis inferomedially. The subscapularis was identified. The biceps tendon was identified and tenodesed to the upper border of the pectoralis. There was substantial synovial fluid and inflammation about the bicipital groove as well as into the joint. Upper border of subscapularis was torn as was the anterior border of the supraspinatus. We peeled the subscapularis off the anterior border of the humerus. We exposed the proximal humerus, osteotomized, reamed, and broached for anS stem. We then turned our attention to the glenoid which was circumferentially visualized. She had profound arthritis with full-thickness cartilage loss and even eburnation of the bone. A base plate was placed with 3 screws, and glenosphere was impacted without difficulty. We trialed the shoulder andwere happy with stability. Opened real implants, impacted them into place. Repaired the subscapularis with three #5 FiberWire passed through bone tunnels in the bicipital groove. The wound was copiously irrigated and closed in layers. The axillary nerve was palpated at the beginning and at the end of the case and was intact via tug test. She was placed in a postop sling. REHAB: She will be on the standard reverse total shoulder arthroplasty protocol. Alfredo De Souza M.D. documented in this encounter Plan of Treatment Scheduled Referrals Name Type Priority Associated Order Schedule Diagnoses Orthopedic Surgery Outpatient Referral Routine Ex pected: office visit 08/06/2021, (clinic) Expires: 10/22/2022 Orthopedic Surgery Outpatient Referral Routine Ex pected: office visit 09/04/2021, (clinic) Expires: 10/22/2022 documented as of this encounter Procedures Procedure Name Priority Date/Time Associated Comments Diagnosis DX SHOULDER RIGHT RAD - Routine 07/22/2021 1:12 Result s for this 2+ VIEWS (most inpatients PM CDT procedure a re in and all the results outpatients) section. ARTHROPLASTY TOTAL 07/22/2021 7:19 Pain Shoulder REVERSE SHOULDER AM CDT Right documented in this encounter Results DX Shoulder [...] TSA. No radiographic evide nce of loosening. Jesus Larsen APRN.N.Haydee., M.S.N. IM DIAGNOSTIC IM AGING PROCEDURES DX Shoulder Right 2+ Views (08/05/2021 10:47 [...] radiographs 07/22/2021. Misti Owens APRN, C.N.P., M.S.N. [facility]ING PROCEDURES DX Shoulder Right 2+ Views (07/22/2021 1:12 PM CDT) Anatomical Region Laterality Modality Upper Extremity, Shoulder, Musculoskeletal RST LOS, Right Computed Radiography Musculoskeletal ARZ LOS, Muskuloskeletal FLA LOS Specimen (Source) Anatomical Collection Method Collection Time Re ceived Time Location / / Volume Laterality 07/22/2021 1:16 PM CDT Impressions 07/22/2021 1:25 PM CDT Since 03/05/2021, new postoperative changes of right reverse TSA. Postoperative subcutaneous emphysema about the right s houlder, neck and proximal humerus. Tiny calcification or osseous fragment medial to the proximal humeral metadiaphysis. Exam is negative for postoperative purposes. Narrative 07/22/2021 1:25 PM CDT EXAM: ??DX SHOULDER RIGHT 2+ VIEWS Procedure Note Huy Haas M.D. - 07/22/2021Forma tting of this note might be different from the original. EXAM: DX SHOULDER RIGHT 2+ VIEWS IMPRESSION: Since 03/05/2021, new postoperative muñiz ges of right reverse TSA. Postoperative subcutaneous emphysema about the right s houlder, neck and proximal humerus. Tiny calcification or osseous fragment medial to the proximal humeral metadiaphysis. Exam is negative for postoperative purposes. Misti Owens APRN, C.N.P., M.S.N. IMG DIAGNOSTIC IM AGING PROCEDURES documented in this encounter Visit Diagnoses Diagnosis Pain Shoulder Right - Primary Pain Shoulder Right Pain Shoulder Right documented in this encounter Admitting Diagnoses Diagnosis Pain Shoulder Right documented in this encounter Administered Medications Inactive Administered Medications - up to 3 most recent administrations Medication Order MAR Action Action Date Dose Rate Site acetaminophen injection 1,000 New Bag 07/22/2021 9:53 AM 1,000 mg 400 mL/hr mg CDT 1,000 mg, intravenous, at 400 mL/hr, Administer over 15 Minutes, Once as needed, other, If patient has not received in previous 6 hours, Starting on Wed07/22/21 at 0942, For 1 dose, PACU (only), Oral unless RASS less than -1 or nausea/vomiting. Do not use if given in last 6 hours, Restriction Criteria (Pharmacy will review and approve if criteria met): Unable to take or tolerate medications administered via the enteral route or orally (not just NPO) caffeine tablet 200 mg Given 07/22/2021 7:08 AM CDT 200 mg 200 mg, oral, Once, On Wed07/22/21 at 0730, For 1 dose, Pre-Op, With sips fentaNYL injection 25 mcg (SUBLIMAZE) Given 07/22/2021 10:33 AM CDT 25 mcg 25 mcg, intravenous, Every 2 min PRN, For pain 4 or greater (maximum 100 mcg). If max dose of Fentanyl is reached and if pain is greater than 4, discontinue Fentanyl: give Hydromorphone, Starting on Wed07/22/21 at 0942, PACU (only) Given 07/22/2021 10:22 AM CDT 25 mcg Given 07/22/2021 10:18 AM CDT 25 mcg granisetron (PF) injection 1 mg (KYTRIL) Given 07/22/2021 10:55 AM CDT 1 mg 1 mg, intravenous, Once as needed, nausea, vomiting, Starting on Wed07/22/21 at 0942, For 1 dose, PACU (only), If patient does not respond to ondansetron or haloperidol. (order of antiemetic administration - ondansetron then haloperidol then granisetron) haloperidol lactate injection 1 mg (HALD OL) Given 07/22/2021 9:53 AM CDT 1 mg 1 mg, intravenous, Every 6 hours PRN, nausea, vomiting, Starting on Wed07/22/21 at 0942, PACU (only), Total of 3 doses in 24 hour period. RASS must be -2 or higher to administer. If nausea and vomiting persists, move to granisteron. (order of antiemetic administration - ondansetron then haloperidol then granisetron) lactated ringers New Bag 07/22/2021 11:20 AM CDT 20 mL/hr 20 mL/hr 20 mL/hr, intravenous, Continuous, Starting on Wed07/22/21 at 0900, PACU & Post-Op metoprolol tablet 12.5 mg (LOPRESSOR) 12.5 mg, oral, Once as needed, if patien t did not take their last scheduled dose of beta calista prior to arrival, Starting on Wed07/22/21 at 0644, For 1 dose, Pre-Op, Do not give if patient does not take scheduled beta bl ockers, if patient is receiving intravenous vasopressors or inotropes, if he art rate is less than 50 beats per minute, if systolic blood pres sure is less than 90 mmHg or if diastolic blood pressure is less than 40 mmHg, or if patient has an allergy to metoprolol. oxyCODONE IR tablet 10 mg (ROXICODONE) 10 mg, oral, Every 4 hours PRN, severe p ain or score 7-10 of 10, Starting on Wed07/22/21 at 1234, PACU & Post-Op, Second l ine therapy. If patient is greater than 7 after 2 hours, call service for new order. oxyCODONE IR tablet 5 mg (ROXICODONE) 5 mg, oral, Every 4 hours PRN, moderate pain or score 4-6 of 10, Starting on Wed07/22/21 at 1234, PACU & Post-Op, Second line therapy promethazine injection 6.25 mg (PHENERGA N) Given 07/22/2021 12:43 PM CDT 6.25 mg 6.25 mg, intravenous, Every 6 hours PRN, nausea, vomiting, Starting on Wed07/22/21 at 1234, For 48 hours, PACU & Post-Op, RASS must be -2 or higher to administer. Reassess for nausea/vomiting after at least 10 minutes. If nausea or vomiting persists administer next ordered antiemetic medications (order for antiemetic medication administration ondansetron then droperidol then promethazine). scopolamine base 1 mg Medication Applied 07/22/2021 7:08 AM 1 patch Behind Left Ear over 3 days 1 patch CDT (TRANSDERM SCOP) 1 patch, transdermal, Administer over 72 Hours, Once as needed, nausea, vomiting, Starting on Wed07/22/21 at 0724, For 1 dose, Pre-Op, Contains 1.5 mg to deliver 1 mg/72 hours. sodium chloride 0.9 % injection 10 mL 10 mL, intravenous, As needed, line care , Starting on Wed07/22/21 at 0622, Pre-Op, Peripheral Intravenous Catheter and Rapid Infusion Cat heter, prior to blood sampling, post blood transfusion or post blood samplin g sodium chloride 0.9 % injection 3 mL 3 mL, intravenous, As needed, line care, Starting on Wed07/22/21 at 0622, Pre-Op, Prior to and following infusion and betw een multiple consecutive infusions: sodium chloride 0.9 % injection sodium chloride 0.9 % injection 3 mL 3 mL, intravenous, Every 12 hours scheduled, First dos e on Wed07/22/21 at 0900, Pre-Op, Peripheral Intravenous Catheter and Rapid Infu tucker Catheter, when no infusion to maintain patency documented in this encounter Active and Recently Administered Medications Times are shown in CDT. Scheduled Medication Order 07/20/2021 07/21/2021 07/22/2021 acetaminophen tablet 1,000 mg (TYLENOL) 1245 (Due) 1,000 mg, oral, Every 6 hours, First dose on Wed 2 at 1245, PACU & Post-Op caffeine tablet 200 mg (COMPLETED) 0708 (Given - Provider: Camilla Chapman R.N.) 200 mg, oral, Once, On Wed07/22/21 at 0730, For 1 dose, Pre-Op, W ith sips ceFAZolin injection 2,000 mg (ANCEF) (COMPLETED) 801 (Given - Provider: Bunny George R.N., C.S.C.) 2,000 mg (rounded from 1,452.5 mg = 25 m g/kg ? 58.1 kg Dosing weight), intravenous, Once, On Wed07/22/21 at 0715, For 1 dose, Intra-Op, Preoperatively within 1 hour prior to surgical incision If needed, reconstitute vial per package insert in structions. See IVAG for administration guidelines. , Drug Monitoring Program: Pharmacist to adjust medication dosing based on indication and drug clearance factors., Indications: Prophylaxis, surgical lidocaine 10 mg/mL (1 %) injection 1 mL (XYLOCAINE) 729 (Due) 1 mL, infiltration, Once, On Wed07/22/21 at 0730, For 1 dose, Pre-Op, May admin up to 1 mL at the site of IV site if not allergic to lidocaine sodium chloride 0.9 % injection 3 mL 00 (Due) 3 mL, intravenous, Every 12 hours schedu led, First dose on Wed07/22/21 at 0900, Pre-Op, Peripheral Intravenous Catheter and Rapid Infusion Catheter, when no infusion to maintain patency sodium chloride 0.9 % injection 3 mL 899 (Due) 3 mL, intravenous, Every 12 hours schedu led, First dose on Wed07/22/21 at 0900, Pre-Op, Peripheral Intravenous Catheter and Rapid Infusion Catheter, when no infusion to maintain patency tranexamic acid in NaCl IVPB 1,000 mg (CYKLOKAPRON) (COMPLETED) 799 (Given - Provider: Bunny George R.N., C.S.C.) 1,000 mg (1 g), intravenous, at 300 mL/h r, Administer over 20 Minutes, Once, On Wed07/22/21 at 0715, For 1 dose, Intra-Op, Administer in OR upon induction tranexamic acid in NaCl IVPB 1,000 mg (CYKLOKAPRON) (COMPLETED) 0858 (Given - Provider: Bunny George R.N., C.S.C.) 1,000 mg (1 g), intravenous, at 300 mL/h r, Administer over 20 Minutes, Once, On Wed07/22/21 at 0715, For 1 dose, Intra-Op, Administer in OR just before dropping tourniquet Continuous Medication Order 07/20/2021 07/21/2021 07/22/2021 lactated ringers 1127 (Not Given - Provider: Shanel Perdomo, R.N. - Reason: Other - Comment: assumed pt care during PACU/Post-op phase of care (order for pre-op)) 20 mL/hr, intravenous, Continuous, Starting on Wed07/22/21 at 073 0, Pre-Op lactated ringers 1245 (Due) 75 mL/hr, intravenous, Continuous, Start ing on Wed07/22/21 at 1245, PACU & Post- Op, until tolerating oral diet lactated ringers 1120 (New Bag - Provider: Shanel Perdomo, R.N. - Comment: assumed pt care) 20 mL/hr, intravenous, Continuous, Start ing on Wed07/22/21 at 0900, PACU & Post-Op PRN Medication Order 07/20/2021 07/21/2021 07/22/2021 acetaminophen injection 1,000 mg (COMPLETED) 0953 (New Bag - Provider: Dominga Arevalo R.N., PCCN) 1,000 mg, intravenous, at 400 mL/hr, Adm inister over 15 Minutes, Once as needed, other, If patient has not received in previous 6 hours, Starting on Wed07/22/21 at 0942, For 1 dose, PACU (only), Oral unl ess RASS less than -1 or nausea/vomiting . Do not use if given in last 6 hours, Restriction Criteria (Pharmacy will review and approve if criteria met): Unable to take or tolerate medications administered via the enteral route or orally (not just NPO) chlorhexidine 4 % external solution (HIBICLENS) (CANCELED) 0859 (Given - Provider: Enrico Sebastian M.D.) As needed, Starting on Wed07/22/21 at 0859, Intra-Op dexAMETHasone injection 4 mg (DECADRON) 4 mg, intravenous, Once as needed, nause a, vomiting, Starting on Wed07/22/21 at 1234, For 1 dose, PACU & Post-Op, Give only if NOT given during the pre or intraoperative period. If ondansetron ordere d, give dexamethasone with first dose of ondansetron. fentaNYL injection 25 mcg (SUBLIMAZE) 1018 (Given - Provider: [facility]inga Bourgeois R.N., [facility]1022 (Given - Provider: Dominga Arevalo R.N., [facility]1033 (Given - Provider: Dominga Arevalo R.N., [facility]) 25 mcg, intravenous, Every 2 min PRN, Fo r pain 4 or greater (maximum 100 mcg). If max dose of Fentanyl is reached and if pain is greater than 4, discontinue Fentanyl: give Hydromorphone, Starting on Wed07/22/21 at 0942, PACU (only) granisetron (PF) injection 1 mg (KYTRIL) (COMPLETED) 1055 (Given - Provider: Dominga Arevalo R.N., [facility]) 1 mg, intravenous, Once as needed, nause a, vomiting, Starting on Wed07/22/21 at 0942, For 1 dose, PACU (only), If patient does not respond to ondansetron or haloperidol. (order of antiemetic administrati on - ondansetron then haloperidol then granisetron) haloperidol lactate injection 1 mg (HALDOL) 0953 (Given - Provider: Dominga Arevalo R.N., [facility]) 1 mg, intravenous, Every 6 hours PRN, na usea, vomiting, Starting on Wed07/22/21 at 0942, PACU (only), Total of 3 doses in 24 hour period. RASS must be -2 or higher to administer. If nausea and vomiting p ersists, move to granisteron. (order of antiemetic administration - ondansetron then haloperidol then granisetron) hydrogen peroxide 3 % topical solution (CANCELED) 0859 (Given - Provider: nErico Sebastian M.D.) As needed, Starting on Wed07/22/21 at 0859, Intra-Op HYDROmorphone (PF) injection 0.2 mg (DILAUDID) 0.2 mg, intravenous, Every 5 min PRN, mo derate pain or score 4-6 of 10, severe pain or score 7-10 of 10, Starting on Wed07/22/21 at 0942, PACU (only), Up to maximum total dose of 2 mg HYDROmorphone (PF) injection 0.2 mg (DILAUDID) 0.2 mg, intravenous, Every 2 hour PRN, s evere pain or score 7-10 of 10, Starting on Wed07/22/21 at 1234, For 2 doses, PACU & Post-Op, May administer if pain is greater than 7 after scheduled and PRN regimen exhausted. If pain remains greater than 7, notify primar y service. metoprolol tablet 12.5 mg (LOPRESSOR) 0702 (Not Given - Provider: Camilla Chapman R.N. - Reason: Order parameters not met) 12.5 mg, oral, Once as needed, if patien t did not take their last scheduled dose of beta calista prior to arrival, Starting on Wed07/22/21 at 0644, For 1 dose, Pre-Op, Do not give if patient does not dee e scheduled beta blockers, if patient is receiving intravenous vasopressors or inotropes, if heart rate is less than 50 beats per minute, if systolic blood pressure is less than 90 mmHg or if diastolic blood pressure is less than 40 mmHg, or if patient has an allergy to metoprolol. naloxone injection 0.2 mg (NARCAN) 0.2 mg, intravenous, As needed, respirat ory depression, Starting on Wed07/22/21 at 1234, For respiratory rate less than 8 breaths per minute or RASS score of - 3, -4, -5. Apply oxygen to keep oxygen saturations greater than 90% and notify service. ondansetron (PF) injection 4 mg (ZOFRAN) 4 mg, intravenous, Every 6 hours PRN, na usea, vomiting, (If patient has not received in the previous 6 hours), Starting on Wed07/22/21 at 0942, PACU (only), Administer first. If nausea and vomiting persi sts, proceed with haloperidol. (order of antiemetic administration - ondansetron then haloperidol then granisetron) ondansetron (PF) injection 4 mg (ZOFRAN) 4 mg, intravenous, Every 6 hours PRN, na usea, vomiting, Starting on Wed07/22/21 at 1234, For 48 hours, PACU & Post-Op, Reassess for nausea or vomiting after at least 10 minutes. If nausea or vomiting persists administer next ordered antiem etic medications (order for antiemetic medication administration ondansetron then droperidol then promethazine). oxyCODONE IR tablet 10 mg (ROXICODONE) 10 mg, oral, Once as needed, For pain 4 or greater, Starting on Wed07/22/21 at 0942, For 1 dose, PACU (only) oxyCODONE IR tablet 10 mg (ROXICODONE)(Linked Group 1) 10 mg, oral, Every 4 hours PRN, severe p ain or score 7-10 of 10, Starting on Wed07/22/21 at 1234, PACU & Post-Op, Second line therapy. If patient is greater than 7 after 2 hours, call service for new order. oxyCODONE IR tablet 5 mg (ROXICODONE)(Linked Group 1) 5 mg, oral, Every 4 hours PRN, moderate pain or score 4-6 of 10, Starting on Wed07/22/21 at 1234, PACU & Post-Op, Second line therapy promethazine injection 6.25 mg (PHENERGAN) 1243 (Given - Provider: Shanel Perdomo, R.N.) 6.25 mg, intravenous, Every 6 hours PRN, nausea, vomiting, Starting on Wed07/22/21 at 1234, For 48 hours, PACU & Post-Op, RASS must be -2 or higher to administer. Reassess for nausea/vomiting after a t least 10 minutes. If nausea or vomitin g persists administer next ordered antiemetic medications (order for antiemetic medication administration ondansetron then droperidol then promethazine). ropivacaine (PF) 100 mg, EPINEPHrine 50 mcg, ketorolac 15 mg in NaCl 0.9% 60 mL injection (ARTHROPLASTY BLOCK 50-74.9 kg) (COMPLETED) 0859 (Given - Provider: Enrico Sebastian M.D.) 60 mL, infiltration, Once in surgery, OR use only, Starting on Wed07/22/21 at 0714, For 1 dose, Intra-Op, *Not for IV use* ropivacaine (PF) 100 mg, EPINEPHrine 50 mcg, ketorolac 15 mg in NaCl 0.9% 60 mL injection (ARTHROPLASTY BLOCK 50-74.9 kg) (COMPLETED) 0859 (Given - Provider: Enrico Sebastian M.D.) 60 mL, infiltration, Once in surgery, OR use only, Starting on Wed07/22/21 at 0714, For 1 dose, Intra-Op, *Not for IV use* scopolamine base 1 mg over 3 days 1 patch (TRANSDERM SCOP) ([facility]) 707 (Medication Applied - Provider: Camilla Chapman R.N.) 1 patch, transdermal, Administer over 72 Hours, Once as needed, nausea, vomiting, Starting on Wed07/22/21 at 0724, For 1 dose, Pre-Op, Contains 1.5 mg to deliver 1 mg/72 hours. sodium chloride 0.9 % injection 10 mL 10 mL, intravenous, As needed, line care , Starting on Wed07/22/21 at 0622, Pre- Op, Peripheral Intravenous Catheter and Rapid Infusion Catheter, prior to blood sampling, post blood transfusion or post blood sampling sodium chloride 0.9 % injection 10 mL 10 mL, intravenous, As needed, line care , Starting on Wed07/22/21 at 0724, Pre- Op, Peripheral Intravenous Catheter and Rapid Infusion Catheter, prior to blood sampling, post blood transfusion or post blood sampling sodium chloride 0.9 % injection 3 mL 3 mL, intravenous, As needed, line care, Starting on Wed07/22/21 at 0622, Pre-Op, Prior to and following infusion and between multiple consecutive infusions: sodium chloride 0.9 % injection sodium chloride 0.9 % injection 3 mL 3 mL, intravenous, As needed, line care, Starting on Wed07/22/21 at 0724, Pre-Op, Prior to and following infusion and between multiple consecutive infusions: sodium chloride 0.9 % injection Linked Groups Order Group 1: oxyCODONE IR tablet 5 mg (ROXICODONE)Jump to med 5 mg, oral, Every 4 hours PRN, moderate pain or score 4-6 of 10, Starting on Wed07/22/21 at 1234, PACU & Post-Op
Second line therapy
Or oxyCODONE IR tablet 10 mg (ROXICODONE)Jump to med 10 mg, oral, Every 4 hours PRN, severe p ain or score 7-10 of 10, Starting on Wed07/22/21 at 1234, PACU & Post-Op
Second line therapy. If patient is greater than 7 after 2 hours, call service for new order.
documented in this encounter
--- OUTSIDE RECORDS SUMMARY | 2021-12-03 11:38 | XMS_ITS | Encounter Summary ---
:1955 Author Organization [facility] Address [address] [place] [address] Care Team Providers Name Role Phone Unavailable Primary Care Provider Unavailable Encounter Details Date Type Department Care Team Description 06/12/2021 Clinical Communication Department of Urology Kim Almanzar in [facility], OWNER OPERATOR, C.N.P., [place] D.N.P. [address] [facility] [address] [place] [phone] Social History Tobacco Use Types Packs/Day Years [...] or relatives? How often do you attend zoroastrian or More than 4 times per year 05/09/2021 adventism services? Do you belong to any clubs or No 05/09/2021 organizations such as zoroastrian groups, unions, fraternal or athletic groups, or [...] place to sleep or slept in a prison (including now)? Education Answer Date Recorded What is the highest level of school Master's degree (e.g., Reji Landry, [place], 02/27/2020 you have completed or the highest Melanie, MEd, SYSTEMS COORDINATOR, KARLI) degree you have received? 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 - 06/12/2021 5:19 PM CDT ----- Message from Raymond Harper M.D. sent at 06/12/2021 3:23 PM CDT ----- Kenan Alvarez, Unfortunately, I will not be able to see her in clinic for follow up. It may be a good idea if you referred her to pulmonary nodule clinic. Thank you, Raymond ----- Message ----- From: Kim Almanzar APRN, C.N.P., D.N.P. Sent: 05/28/2021 1:54 PM CDT To: Horace Wayne Dr., I am just reaching out regarding a mutual patient. Mrs. Carmichael is a pleasant 65 year old female we follow for a small right renal mass that appears benign. She has had previous chest CT's that have shown small pulmonary nodules measuring up to 6 mm most recently had one in October of 2020 where it looks like they were stable. I am just wondering if you would be able to provide me with any insight in how these should be followed so I can provide recommendations to the patient moving forward as we will not need to be checking with her subsequent follow-up with urology. I appreciate your time and help with this patient. Kim Lacey APRN, C.N.P., D.N.P. documented in this encounter Plan of Treatment Not on filedocumented as of this encounter Visit Diagnoses Not on filedocumented in this encounter
--- OUTSIDE RECORDS SUMMARY | 2021-12-03 11:38 | XMS_ITS | Encounter Summary ---
:1955 Author Organization [facility] Address [address] [place] [address] Care Team Providers Name Role Phone Unavailable Primary Care Provider Unavailable Encounter Details Date Type Department Care Team Description 05/28/2021 Hospital Encounter Department of Gracy Quiroz [facility] and P.A.-CMima, M.S. Pathology, [place] [address] [facility] [place] [address] [address] [facility] [phone] [employer], [place] (Work) [phone] Social History Tobacco Use Types Packs/Day Years [...] or relatives? How often do you attend yarsani or More than 4 times per year 05/09/2021 sikh services? Do you belong to any clubs or No 05/09/2021 organizations such as yarsani groups, unions, fraternal or athletic groups, or [...] place to sleep or slept in a usp (including now)? Education Answer Date Recorded What is the highest level of school Master's degree (e.g., M Gris, MS, 02/27/2020 you have completed or the highest Melanie, MEd, SETTLEMENT PROCESSOR, KARLI) degree you have received? 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 tablet calcium citrate-vitamin Take 2 tablets by 0 07/22 D3 (CITRACAL+D) 315 mg-5 mouth 2 (two) times a mcg (200 Unit) per day with meals. This tablet may be purchased over the counter DIETARY SUPPLEMENT ORAL Take 10 tablets by 0 mouth as needed. Jesusen tea pills for consitpation docosahexaenoic acid/epa Take [...] medication may be purchased over the counter cholecalciferol, vitamin Take 2,500 Units by 0 07/09/2021 D3, (VITAMIN D3 ORAL) mouth daily. fluticasone-umeclidinium Inhale 1 puff daily. 0 0 04/24/2021 07/09/2021 -vilanterol (Trelegy Ellipta) 100-62.5-25 mcg/actuation inhaler oxyCODONE (ROXICODONE) 5 Take 0.5-1 tablets 15 [...] the counter documented as of this encounter Plan of Treatment Not on filedocumented as of this encounter Procedures Procedure Name Priority Date/Time Associated Diagnosis Comme nts BASIC METABOLIC Routine 05/28/2021 7:58 AM [facility] Kidney Resul ts for this PANEL, S/P CDT procedure are i n the results section. documented in this encounter Results Basic Metabolic Panel (05/28/2021 7:58 AM CDT) P athologist Signature Potassium, S 4.7 3.6 - 5.2 05/28/2021 DTL mmol/L 9:10 AM CDT Sodium, S 140 135 - 145 05/28/2021 DTL mmol/L 9:10 AM CDT Chloride, S 102 98 - 107 05/28/2021 DTL mmol/L 9:10 AM CDT Bicarbonate, S 27 22 - 29 05/28/2021 DTL mmol/L 9:10 AM CDT Anion Gap 11 7 - 15 05/28/2021 DTL 9:10 AM CDT BUN (Blood Urea 13 6 - 21 05/28/2021 DTL Nitrogen), S mg/dL 9:10 AM CDT Creatinine 0.70 0.59 - 05/28/2021 DTL 1.04 mg/dL 9:10 AM CDT eGFR-Non >90 >=60 05/28/2021 DTL Black/ mL/min/BSA 9:10 AM CDT Hungarian Comment: ----ADDITIONAL INFORMATION---- Estimated GFR calculated using the 2009 CKD_EPI creatinine equation. eGFR-Black/ >90 >=60 mL/min/BSA 2021 9:10 AM CDT DTL Comment: ----ADDITIONAL INFORMATION---- Estimated GFR calculated using the 2009 CKD_EPI creatinine equation. Calcium, Total, S 9.5 8.8 - 10.2 mg/dL 05/28/2021 9:10 AM CDT DTL Glucose, S 93 70 - 140 mg/dL 05/28/2021 9:10 AM CDT D TL Specimen Anatomical Collection Method Collection Time Receive d Time (Source) Location / / Volume Laterality Blood (Blood, 05/28/2021 7:58 AM 05/29/19 8:51 Venous) CDT AM CDT Gracy Quiroz P.A.-C., M.S. LAB BLOOD ADD-ON Performing Organization Address City/State/ZIP Code Phon e Number [facility] - [address] [place], [place] [address] [facility] [place] [address] Formerly [facility] [address] documented in this encounter Visit Diagnoses Diagnosis [facility]ney documented in this encounter
--- OUTSIDE RECORDS SUMMARY | 2021-12-03 11:38 | XMS_ITS | Encounter Summary ---
:1955 Author Organization [facility] Address [address] [place] [address] Care Team Providers Name Role Phone Unavailable Primary Care Provider Unavailable Encounter Details Date Type Department Care Team Description 06/25/2021 Documentation Division of Pulmonary Gideon, [facility] in [place], SLACK LINE YARDER, C.N .P., D.N.P. [place] [address] [facility] [address] [place] [phone] (Wo rk) Social History Tobacco Use Types Packs/Day Years [...] or relatives? How often do you attend caodaism or More than 4 times per year 05/09/2021 restoration services? Do you belong to any clubs or No 05/09/2021 organizations such as caodaism groups, unions, fraternal or athletic groups, or [...] have completed or the highest Melanie, MEd, SECOND RIGGER, KARLI) degree you have received? 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 - 06/25/2021 5:36 PM CDT LNMAC Triage S: Small nodules B: 65-year-old female, never smoker. History of melanoma. A: Most recent chest CT scan is from October 2020 and February 2020 showing sub 4 mm nodules. R: If patient is interested in evaluation repeat chest CT scan without IV contrast would be necessary 1st. Then could offer a visit IF the nodules are persistent or enlarging. documented in this encounter Plan of Treatment Not on filedocumented as of this encounter Visit Diagnoses Not on filedocumented in this encounter
--- OUTSIDE RECORDS SUMMARY | 2021-12-03 11:38 | XMS_ITS | Encounter Summary ---
:1955 Author Organization [facility] Address [address] [place] [address] Care Team Providers Name Role Phone Unavailable Primary Care Provider Unavailable Encounter Details Date Type Department Care Team Description 07/28/2021 Clinical Communication Department of Alfredo De Souza Orthopedic Surgery jarred Stahl M.D. [place], [place] [address] [facility] [address] [place] [phone] Social History Tobacco Use Types Packs/Day Years [...] or relatives? How often do you attend evangelical or More than 4 times per year 05/09/2021 gnosticism services? Do you belong to any clubs or No 05/09/2021 organizations such as evangelical groups, unions, fraternal or athletic groups, or [...] place to sleep or slept in a alf (including now)? Education Answer Date Recorded What is the highest level of school Master's degree (e.g., Reji Landry, [place], 02/27/2020 you have completed or the highest Melanie, MEd, SENIOR APPLICATIONS ANALYST, KARLI) degree you have received? 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 - 07/29/2021 8:57 AM CDT Yep, that's fine. If someone already in that spot, just add to right before or after. documented in this encounter Plan of Treatment Not on filedocumented as of this encounter Visit Diagnoses Not on filedocumented in this encounter
--- OUTSIDE RECORDS SUMMARY | 2021-12-03 11:38 | XMS_ITS | Encounter Summary ---
:1955 Author Organization [facility] Address [address] [place] [address] Care Team Providers Name Role Phone Unavailable Primary Care Provider Unavailable Reason for Visit Auth/Cert Specialty Diagnoses / Procedures Referred By Contact Refer red To Contact Diagnoses Pain Shoulder Right Pain Shoulder Right [M25.511] Procedures OH ARTHRO GLH JT TOTAL SHOULDER ARTHROPLASTY TOTAL REVERSE SHOULDER Referral ID Status Reason Start Date Expiration Date Visits Requ ested Visits Authorized [id number] 1 1 Encounter Details Date Type Department Care Team Description 07/22/2021 Surgery RST ROMB SAM OR Alfredo De Souza D, 1. Right reverse TSA [address] M.D. ([place] uncemented [place], [place] [address] humerus/glenoid) 2. [address] [place], [place] Right open biceps [phone] tenodesis [phone] (Wo rk) Social History Tobacco Use Types [...] or relatives? How often do you attend spiritism or More than 4 times per year 05/09/2021 sikhism services? Do you belong to any clubs or No 05/09/2021 organizations such as spiritism groups, unions, [employer] Solar or athletic groups, or school groups? How [...] place to sleep or slept in a senior care (including now)? Education Answer Date Recorded What is the highest level of school Master's degree (e.g., M A, MS, 02/27/2020 you have completed or the highest Melanie, MEd, MEDIA CONSULTANT OUTSIDE SALES, KARLI) degree you have received? 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 documented as of this encounter Last Filed Vital Signs Vital Sign Reading Time Taken Comments Blood Pressure 146/70 07/22/2021 10:30 AM CDT Pulse 85 07/22/2021 10:30 AM CDT Temperature 36.3 ??C (97.3 ??F) 07/22/2021 9:30 AM CDT Respiratory Rate 11 07/22/2021 10:30 AM CDT Oxygen Saturation 100% 07/22/2021 10:30 AM CDT Inhaled Oxygen Concentration - - Weight 58.1 kg (128 lb 1.4 oz) 07/22/2021 7:01 AM CDT Height 160.5 cm (5' 3.19) 07/22/2021 7:01 AM CDT Body Mass Index 22.55 07/22/2021 7:01 AM CDT documented in this encounter Discharge Instructions AttachmentsThe following attachments cannot be sent through Care Everywhere.Your Scopolamine Patch (Greek)documented in this encounter Medications at Time of Discharge Medication Sig Dispensed Refills Start Date End Date DIETARY SUPPLEMENT ORAL Take 10 tablets by 0 mouth as needed. Wazludwinen tea pills for consitpation fluticasone Inhale 1 [...] Diagnosis Rotator cuff tear arthropathy, right A certified surgical tech/first assistant actively participated and was necessary for one [...] . We discussed overlapping surgery, and how [facility] manages this. The patientagreed and wished to [...] C.N.P., M.S.N. IMG DIAGNOSTIC IM AGING PROCEDURES DX Shoulder Right [...] radiographs 07/22/2021. Misti Owens APRN, C.N.P., M.S.N. [facility] DIAGNOSTIC IM AGING PROCEDURES DX Shoulder Right [...] postoperative purposes. Misti Owens APRN, C.N.P., M.S.N. [facility] DIAGNOSTIC IM AGING PROCEDURES documented in this encounter Visit Diagnoses Diagnosis Pain Shoulder Right - Primary Pain Shoulder Right Pain Shoulder Right Pain Shoulder Right documented [...] 0730, For 1 dose, Pre-Op, With sips chlorhexidine 4 % external Given 07/22/2021 8:59 AM 1 applicatio n Right Shoulder solution (HIBICLENS) CDT As needed, Starting on Wed07/22/21 at 0859, Intra-Op fentaNYL injection 25 mcg (SUBLIMAZE) Given 07/22/2021 [...] haloperidol then granisetron) hydrogen peroxide 3 % Given 07/22/2021 8:59 AM CDT 1 application Right Shoulder topical solution As needed, Starting on Wed07/22/21 at 0859, Intra-Op lactated ringers New Bag 07/22/2021 11:20 AM [...] droperidol then promethazine). ropivacaine (PF) 100 mg, Given 07/22/2021 8:59 AM CDT 60 mL Right Shoulder EPINEPHrine 50 mcg, ketorolac 15 mg in NaCl 0.9% 60 mL injection (ARTHROPLASTY BLOCK 50-74.9 kg) 60 mL, infiltration, Once in surgery, OR use only, Starting on Wed07/22/21 at 0714, For 1 dose, Intra-Op, *Not for IV use* ropivacaine (PF) 100 mg, Given 07/22/2021 8:59 AM CDT 60 mL Right Shoulder EPINEPHrine 50 mcg, ketorolac 15 mg in NaCl 0.9% 60 mL injection (ARTHROPLASTY BLOCK 50-74.9 kg) 60 mL, infiltration, Once in surgery, OR use only, Starting on Wed07/22/21 at 0714, For 1 dose, Intra-Op, *Not for IV use* scopolamine base 1 mg Medication Applied 07/22/2021 [...] & Post-Op caffeine tablet 200 mg (COMPLETED) 707 (Given - Provider: Camilla Chapman R.N.) 200 [...] 0953 (New Bag - Provider: Dominga Arevalo RLukas, PCCN) 1,000 mg, intravenous, at 400 mL/hr, [...] Enrico Sebastian M.D.) As needed, Starting on e 07/22/21 at 0859, Intra-Op dexAMETHasone injection 4 mg (DECADRON) 4 mg, intravenous, Once as needed, nause a, vomiting, Starting on e 07/22/21 at 1234, For 1 dose, PACU & Post-Op, Give only if NOT given during the pre or intraoperative period. If ondansetron ordere d, give dexamethasone with first dose of ondansetron. fentaNYL injection 25 mcg (SUBLIMAZE) 1018 (Given - Provider: Dominga Bourgeois R.N., [facility]1022 (Given - Provider: Dominga Arevalo R.N., [facility]1033 (Given - Provider: Dominga Arevalo R.N., [facility]) 25 mcg, intravenous, Every 2 min PRN, Fo r pain 4 or greater (maximum 100 mcg). If max dose of Fentanyl is reached and if pain is greater than 4, discontinue Fentanyl: give Hydromorphone, Starting on Wed07/22/21 at 0942, PACU (only) granisetron (PF) injection 1 mg (KYTRIL) (COMPLETED) 1055 (Given - Provider: Dominga Arevalo R.N., [facility]) 1 mg, intravenous, Once as needed, nause a, vomiting, Starting on Wed07/22/21 at 0942, For 1 dose, PACU (only), If patient does not respond to ondansetron or haloperidol. (order of antiemetic administrati on - ondansetron then haloperidol then granisetron) haloperidol lactate injection 1 mg (HALDOL) 0953 (Given - Provider: Dominga Arevalo R.N., [facility]) 1 mg, intravenous, Every 6 hours [...] topical solution (CANCELED) 0859 (Given - Provider: Enrico Sebastian [...] 6.25 mg (PHENERGAN) 1243 (Given - Provider: Farzana PerdomoSDevonte., R.N.) 6.25 mg, intravenous, Every 6 hours [...] over 3 days 1 patch (TRANSDERM SCOP) ([facility]) 0708 (Medication Applied - Provider: Camilla Chapman R.N.) [...]
--- OUTSIDE RECORDS SUMMARY | 2021-12-03 11:38 | XMS_ITS | Encounter Summary ---
:1955 Author Organization [facility] Address [address] [place] [address] Care Team Providers Name Role Phone Unavailable Primary Care Provider Unavailable Reason for Visit Reason Comments Post-op Outpatient (Routine) - Closed Specialty Diagnoses / Procedures Referred By Contact Refer red To Contact Orthopedic Surgery Misti Owens, [facility] C.N.P., M.S.N. [address] [place] [address] Referral ID Status Reason Start Date Expiration Date Visits Requ ested Visits Authorized [id number] Closed 07/22/2021 07/22/2022 1 1 Encounter Details Date Type Department Care Team Description 08/05/2021 Office Visit Department of Misti Owens, Aftercare Total Orthopedic Surgery in [place], C.N.P., Shoul joaquina Arthroplasty [place], [place] M.S.N. (Primary Dx) [address] [facility] [address] [place] [phone] Social History Tobacco Use Types Packs/Day Years [...] or relatives? How often do you attend sabianism or More than 4 times per year 05/09/2021 congregational services? Do you belong to any clubs or No 05/09/2021 organizations such as sabianism groups, unions, fraHeatGear or athletic groups, or school groups? How [...] place to sleep or slept in a custodial (including now)? Education Answer Date Recorded What is the highest level of school Master's degree (e.g., M A, MS, 02/27/2020 you have completed or the highest Melanie, MEd, NECK BAND OPERATOR, KARLI) degree you have received? 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 - 08/05/2021 10:00 AM CDT Involved Side: Right Date of Surgery: 07/22/21 Description of treatment: 1. Right reverse TSA ([place] uncemented humerus/glenoid) 2. Right open biceps tenodesis SUBJECTIVE HISTORY OF PRESENT ILLNESS Ms. Carmichael returns for follow up of her shoulder. She is 2 weeks status post shoulder replacement as outlined above. She is recovering well without acute issues. She is not doing any PT at this time. Ms. Carmichael has been compliant with use of a immobilizer. OBJECTIVE PHYSICAL EXAMINATION GENERAL: The patient is alert and oriented. NEURO: Sensation intact to light touch in the axillary, radial, ulnar and median nerve distributions SKIN: Incision is clean, dry, and intact without erythema or drainage VESSELS: Radial pulses palpable and symmetric RANGE OF MOTION: Not assessed Elevation (passive) Elevation (active) External Rotation (passive) External Rotation (active) Internal rotation (active) Right 0 0 0 0 Belly DELTOID CONTRACTILE: Yes RADIOGRAPHS Radiographs demonstrate implants in acceptable position, without failure, loosening, wear, subluxation or dislocation ASSESSMENT / PLAN PLAN We reviewed interval progress, radiographs, and plan for Ms. Carmichael. She continues to recover. We will have her remain immobilized until 6 weeks from surgery. She can work on elbow, wrist and hand range of motion as tolerated. We will see her back in 4 weeks with new xrays. All of her questionswere answered, she understood and agreed with the plan. ?? Plan: Do not perform any shoulder range of motion until instructed. ?? She should remain non weight bearing only. ?? She will return for repeat clinical examination in 1 month. ?? Xrays Next Visit: Yes, same as this visit CLINICAL OUTCOME ASSESSMENTS SANE Score (How would you rate your shoulder today as a percentage of normal?): Not assessed Satisfaction: Not assessed Reoperations: No Complications: No None If yes, details: N/A documented in this encounter Plan of Treatment Not on filedocumented as of this encounter Visit Diagnoses Diagnosis Aftercare Total Shoulder Arthroplasty - Primary documented in this encounter
--- OUTSIDE RECORDS SUMMARY | 2021-12-03 11:38 | XMS_ITS | Encounter Summary ---
:1955 Author Organization [facility] Address [address] [place] [address] Care Team Providers Name Role Phone Unavailable Primary Care Provider Unavailable Reason for Visit Reason Comments Pre-op Exam Pre-op Exam Outpatient (Routine) - Closed Specialty Diagnoses / Procedures Referred By Contact Refer red To Contact Orthopedic Surgery Misti Owens, Jluis ARTHUR [facility] C.N.P., M.S.N. [address] [place] [address] Referral ID Status Reason Start Date Expiration Date Visits Requ ested Visits Authorized [id number] Closed 05/21/2021 05/21/2022 1 1 Encounter Details Date Type Department Care Team Description 07/21/2021 Office Visit Department of Misti Owens Pain Shou lder Right Orthopedic Surgery in SOFTWARE TEST MANAGER, C.N.P., (Prim benedict Dx) [place], [place] M.S.N. [address] [facility] [address] [place] [phone] Social History Tobacco Use Types Packs/Day Years [...] or relatives? How often do you attend anglican or More than 4 times per year 05/09/2021 methodist services? Do you belong to any clubs or No 05/09/2021 organizations such as anglican groups, unions, [employer] or athletic groups, or school groups? How [...] have completed or the highest Melanie, MEd, WOOD PROCESSING WORKER, KARLI) degree you have received? 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 - 07/21/2021 11:00 AM CDT SUBJECTIVE Pain reported: Site 1 Pain Score: 5 - Moderate pain, Pain Location: Shoulder, Pain Orientation: Right, (07/21/21 1120 : Terri Chapman) Pre-operative visit for: Right shoulder severe glenohumeral arthritis Procedure: Reverse total shoulder arthroplasty Date of procedure: July 22, 2021 Surgeon: Dr. De Souza REASON FOR VISIT Megan Carmichael is a 65 y.o. female who presents to the office today for a preoperative consultation for planned reverse total shoulder arthroplasty on July 22. Patient has undergone preoperative medical evaluation with No primary care provider on file., and has been medically optimized for surgery. Patient has failed medical treatment for joint DJD. Patient has been treated with and failed the following modalities: Injections and PT SOCIAL HISTORY @B Tobacco Use: @bNever Pain Medications ibuprofen (ADVIL,MOTRIN) 200 mg tablet Take 200 mg by mouth every 6 (six) hours as needed for pain. The following portions of the patient's history were reviewed and updated as appropriate: allergies,current medications, family history, medical history, social history, surgical history and problem list. REVIEW OF SYSTEMS Respiratory: Positive for dyspnea. Gastrointestinal: Positive for constipation. Musculoskeletal: Positive for arthralgias, pain or stiffness in the joints, joint swelling, muscle pain/stiffness and shoulder pain. The following systems were negative: Constitutional, Eyes, ENT, CV, , Hematologic, Neuro, Psych OBJECTIVE Vital Signs vitals were not taken for this visit. PHYSICAL EXAM Orthopedic Physical Examination General Appearance She appears to be their stated age and healthy. Body habitus: normal. The patientis alert and oriented to person, place, and time. The patient's mood appears good. She seems reliable as a historian. The patient's affect is appropriate for situation. DIAGNOSTICS not applicable IMAGING None ASSESSMENT / PLAN It was a pleasure to see Mrs. Carmichael. We reviewed the procedure details as well as discussed the pre and postoperative instructions. She is most concerned about the Anesthesia due to a previous incident after a different procedure. I encouraged her to voice her concerns and ask any questions tothe anesthesia team before surgery tomorrow. She is ready to proceed. All of her questions were answered, she understands and agrees with the plan. documented in this encounter Plan of Treatment Not on filedocumented as of this encounter Visit Diagnoses Diagnosis Pain Shoulder Right - Primary documented in this encounter
--- OUTSIDE RECORDS SUMMARY | 2021-12-03 11:38 | XMS_ITS | Encounter Summary ---
:1955 Author Organization [facility] Address [address] [place] [address] Care Team Providers Name Role Phone Unavailable Primary Care Provider Unavailable Reason for Visit Outpatient (Routine) - Closed Specialty Diagnoses / Procedures Referred By Contact Refer red To Contact Anesthesiology Diagnoses Pain Shoulder Right Misti Owens APRN, [facility] C.N.P., M.S.N. [address] [place] [phone] Referral ID Status Reason Start Date Expiration Date Visits Requ ested Visits Authorized [id number] Closed 05/21/2021 05/21/2022 1 1 Encounter Details Date Type Department Care Team Description 07/15/2021 Telemedicine Preoperative Misti Owens APRN, C.N.P., M.S.N. [address] [place] [phone] Preanesthetic Medical Exam (Primary Dx); Evaluation Center in Naresh Vo APRN, C.N.P., M.S.N. [address] [place] [phone] Post Operative Nausea/Vomiting; [place], [place] Pain Shoulder Right; [address] [place] [address] Hypertension Essential Prima ry; [place], [place] Asthma Moderat e Persistent (HCC); [id number] Rhinitis Allergic; [phone] Gastroesophagea l Reflux Disease Without Esophagitis; Personal Histor y Of Malignant Melanoma Of Skin Social History Tobacco Use Types Packs/Day Years [...] or relatives? How often do you attend presybeterian or More than 4 times per year 05/09/2021 [place] services? Do you belong to any clubs or No 05/09/2021 organizations such as presybeterian groups, unions, fraternal or athletic groups, or [...] have completed or the highest Melanie, MEd, AGRICULTURAL CHEMICALS INSPECTOR, KARLI) degree you have received? 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 - 07/15/2021 8:00 AM CDT REASON FOR VISIT: Preoperative Medical Evaluation REFERRING PHYSICIAN: Misti Owens APRN, C.N.P., M.S.N. 07/22/2021: ARTHROPLASTY TOTAL REVERSE SHOULDER; Alfredo De Souza M.D. Surgery Specific Risk Classification: Low Risk / Elevated Risk: Intermediate Risk SUBJECTIVE HISTORY OF PRESENT ILLNESS This Consult was conducted via real-time audio/video technology. This is a 65 y.o. female who is here for preanesthetic medical examination prior to the planned procedure as listed above. Patient presents with chronic and progressive right shoulder pain described asa constant ache and rated up to 8/10. Aggravated by activity, sleep, and movement. Relieved by rest,ice, and ibuprofen as needed. Denies numbness or tingling. The following portions of the patient's history were reviewed and updated as appropriate: allergies,current medications, medical history, social history, surgical history and problem list. REVIEW OF SYSTEMS Skin: Positive for breast lump. Respiratory: Positive for dyspnea. Gastrointestinal: Positive for constipation. Musculoskeletal: Positive for arthralgias, pain or stiffness in the joints, joint swelling and muscle pain/stiffness. The following systems were negative: Constitutional, Eyes, ENT, CV, , Hematologic, Neuro, Psych Cardiac Risk Scoring: Orellana Cardiac Score: 0.16 % RCRI Point Count: 0 RCRI Score: 0.4% DASI Calculations Flowsheet Row Telemedicine from 07/15/2021 in Preoperative Evaluation Center in [place], [place] Estimated V02 Peak 29.47 Estimated MET Level 8.42 OBJECTIVE OBJECTIVE PHYSICAL EXAMINATION General/Constitutional Constitutional Assessment: Normal General State of Health: Healthy appearing Airway (HEENT) Dental Assessment: Dentition intact Cardiovascular Virtual visit Pulmonary Virtual visit Neurological Neurologic Assessment: Alert and oriented X 3 Musculoskeletal Ambulate with: None Psychiatric Psychiatric Assessment: Calm Dermatology Virtual visit Physical exam will be performed by anesthesia the day of procedure. ASSESSMENT / PLAN Anesthesia: Patient reports previous anesthesia related complications of post op nausea/vomiting andpotential aspiration. Anesthesia record reviewed from colonoscopy 04/24/21 (DV), which noted emesis of stomach contents, sedation was stopped, mouth was suctioned, and IV Zofran was given. Patient reports she was discharged the same day, although had to go to the emergency department two days later forbreathing concerns. She was given prednisone. She reports her symptoms have resolved. Airway Hx : 04/25/21 (DV) - MAC (see note above) #1 Preanesthetic Medical Exam #2 Post Operative Nausea/Vomiting Very pleasant 65-year-old non-smoking female presents for virtual NIA. She reports regular cardiovascular activity that includes walking 3 miles daily. She reports mild shortness of breath related to asthma. Denies cardiac symptoms at rest or with activity. NPO and medication instructions reviewed with patient. Labs: Reviewed from 05/28/21. Na 140, K 4.7, Creatinine 0.70, and GFR > 90. CBC and type and screen ordered to be drawn 07/21/21. ECG: Not indicated today. Stress test: 03/07/20 (Care Everywhere) - Stress ECG was negative for ischemia. Slight drop in O2 saturation and mildly low breathing reserve with exercise. Average peak VO2 without clear evidence of cardiac or pulmonary impairment to exercise. #3 Pain Shoulder Right See HPI for details. She was instructed to hold NSAIDs and aspirin containing products 1 week prior to surgery. Tylenol okay for pain. #4 Hypertension Essential Primary Managed with lisinopril, which she was instructed to hold morning of surgery. #5 Asthma Moderate Persistent (HCC) Controlled. Managed with fluticasone/salmeterol and Ventolin as needed, which she was instructed to continue as prescribed. #6 Rhinitis Allergic Managed with Flonase and singular, which she was instructed to continue as scheduled. #7 Gastroesophageal Reflux Disease Without Esophagitis Diet triggered. Occasional. No current medications. #8 Personal History Of Malignant Melanoma Of Skin 2017. Status post resection. No chemotherapy or radiation. No known recurrence. RECOMMENDATIONS: Patient medically optimized for planned procedure: Yes Further Recommendations: None Caprini Total Score: Caprini not calculated. VTE prophylaxis per surgery provider PATIENT EDUCATION: Checklist for Surgical Patients [id number] rev 0920. Evening before your surgery: Call [phone] or [phone] between 8:15 p.m. and midnight to learn report time for surgery next day. Phone system will ask for [facility] number and date of . Fasting for Adults: - 8 hours before your report time stop eating solid foods. - 6 hours before your report time stop drinking any non clear liquids such as: milk, soy/almond milk, orange juice, or tomato juice. - 1 hour before your report time stop drinking clear liquids. Clear Liquids: - Water, clear fruit juice (apple/white grape), carbonated beverages, clear broth, gelatin, ice popsor popsicles, and clear tea or black coffee (no milk or creamer). I personally spent a total of 60 minutes in [id number]-face time performing a review of the record and/or discussion with the patient/caregiver as described above. Consult conducted via real-time audio/video technology by Naresh Vo APRN, C.N.P., M.S.N. in [facility] to the patient in the patient's home. documented in this encounter Plan of Treatment Not on filedocumented as of this encounter Results Type and Screen (with reflex Antibody ID) (07/21/2021 1:02 PM CDT) [facility] [email or web address] Method Time Signature ABORh O Pos Not 07/21/2021 ETRM applicable 5:04 PM CDT Antibody Negative Negative 07/21/2021 ETRM Screen 5:17 PM CDT Type & Screen 09/18/2021 07/21/2021 ETRM Expiration 23:59 5:04 PM CDT Testing [facility] 07/21/2021 ETRM Location 1:30 PM CDT Specimen Anatomical Collection Method Collection Time Receive d Time (Source) Location / / Volume Laterality Blood (Blood, 07/21/2021 1:02 PM 07/22/19 1:30 Venous) CDT PM CDT Naresh Vo APRN, C.N.P., M.S.N. LAB BLOOD BANK T EST ORDERABLES Performing Organization Address City/State/ZIP Code Phon e Number [facility] - [address] [place], [place] [address] [facility] [place] [place] [address] [facility] [address] (ABNORMAL) CBC with Differential, Blood (07/21/2021 1:02 PM CDT) [facility] [email or web address] Method Time Signature Hemoglobin 11.9 11.6 - 07/21/2021 DTL 15.0 g/dL 1:32 PM CDT Hematocrit 36.4 35.5 - 07/21/2021 DTL 44.9 % 1:32 PM CDT Erythrocytes 3.81 (L) 3.92 - 07/21/2021 DTL 5.13 1:32 PM CDT x10(12)/L MCV 95.5 78.2 - 07/21/2021 DTL 97.9 fL 1:32 PM CDT RBC Distrib Width 12.5 12.2 - 07/21/2021 DTL 16.1 % 1:32 PM CDT Platelet Count 285 157 - 371 07/21/2021 DTL x10(9)/L 1:32 PM CDT Leukocytes 6.6 3.4 - 9.6 07/21/2021 DTL x10(9)/L 1:32 PM CDT Neutrophils 4.49 1.56 - 07/21/2021 DTL 6.45 1:32 PM CDT x10(9)/L Lymphocytes 1.51 0.95 - 07/21/2021 DTL 3.07 1:32 PM CDT x10(9)/L Monocytes 0.44 0.26 - 07/21/2021 DTL 0.81 1:32 PM CDT x10(9)/L Eosinophils 0.14 0.03 - 07/21/2021 DTL 0.48 1:32 PM CDT x10(9)/L Basophils 0.06 0.01 - 07/21/2021 DTL 0.08 1:32 PM CDT x10(9)/L Specimen Anatomical Collection Method Collection Time Receive d Time (Source) Location / / Volume Laterality Blood (Blood, 07/21/2021 1:02 PM 07/22/19 22 1:26 Venous) CDT PM CDT Naresh Vo APRN C.N.P., M.S.N. LAB BLOOD ADD-ON Performing Organization Address City/State/ZIP Code Phon e Number [facility] - [address] [place], [place] [address] [facility] [place] [address] [facility] [address] documented in this encounter Visit Diagnoses Diagnosis Preanesthetic Medical Exam - Primary Post Operative Nausea/Vomiting Pain Shoulder Right Hypertension Essential Primary Asthma Moderate Persistent (HCC) Rhinitis Allergic Gastroesophageal Reflux Disease Without Esophagitis Personal History Of Malignant Melanoma O f Skin documented in this encounter
--- OUTSIDE RECORDS SUMMARY | 2021-12-03 11:38 | XMS_ITS | Encounter Summary ---
:1955 Author Organization [facility] Address [address] [place] [address] Care Team Providers Name Role Phone Unavailable Primary Care Provider Unavailable Reason for Visit Auth/Cert Specialty Diagnoses / Procedures Referred By Contact Refer red To Contact Diagnoses Pain Shoulder Right Pain Shoulder Right [M25.511] Procedures ME ARTHRO GLH JT TOTAL SHOULDER ARTHROPLASTY TOTAL REVERSE SHOULDER Referral ID Status Reason Start Date Expiration Date Visits Requ ested Visits Authorized [id number] 1 1 Encounter Details Date Type Department Care Team Description 07/22/2021 Anesthesia Event RST ROMB MAIN OR Skip Espinoza M.D. [address] [place] [address] [address] [facility] Noel Henderson M.D. [address] [place] [phone] [place] [address] Anesthesia Record Procedure Summary Procedure Name Responsible Anesthesia Start Anesthesia Stop Anesthesiologist Time Time 1. Right reverse TSA Skip Espinoza, 07/22/21 0739 06/09/05 0932 ([place] uncemented M.D. humerus/glenoid) 2. Right open biceps tenodesis (Right: Shoulder) Events Date Time Event Comment 07/22/2021 0725 0739 An Start Machine/Equipmen t Checked Infection Precautions Foll owed Procedure/Site Verified NPO Sta tus Verified Supine Standard ASA Mon itors Applied 0745 An Induction 0747 An Intubation 0748 Turnover to Proceduralist 0809 Proc Start 914 Proc Fin 924 Turnover to ANE Staff 926 Airway Removal Criteria Met 926 Extubation/Airway Removed 926 an stop data 0932 An End I completed my h andoff to the receiving staff during [facility] we 1. Identified the patient 2. Ident ified the responsible provider 3. Revi ewed the pertinent medical history 4. Discussed the surgical course 5. Review ed intra-op anesthesia management and i ssues during anesthesia 6. Set expectati ons for post-procedure period 7. Allowe d opportunity for questions and ac knowledgement of understanding. Name Total fentanyl injection 50 mcg/mL 150 mcg lidocaine 2% (mg) injection 60 mg propofol 10 mg/mL 100 mg propofol 10 mg/mL infusion 133.63 mg succinylcholine 20 mg/mL injection 100 mg phenylephrine 100 mcg/mL injection 50 mcg ePHEDrine PF 5 mg/mL syringe injection 20 mg ondansetron 4 mg/2 mL injection 4 mg albuterol HFA inhaler 90 mcg/act 2 puff tranexamic acid in NaCl IVPB 1,000 mg (CYKLOKAPRON) 1 g tranexamic acid in NaCl IVPB 1,000 mg (CYKLOKAPRON) 1 g ceFAZolin injection 2,000 mg (ANCEF) 2 g dexamethasone 4 mg/mL injection 8 mg ketamine 10 mg/mL injection 20 mg HYDROmorphone PF 2 mg/mL injection 0.4 mg propofol bolus from bag 20 mg Lactated Ringers Free Drip 800 mL Agents No agents on file. Blood No blood administrations on file. Lines, Drains, and Airways Type Details Placement Removal Wound 07/22/21; 0838; N; 07/22/21 0838 by Vitaly, Incision; Shoulder; Koki Loja RLukas Anterior, Right Peripheral IV Placement Date: 07/22/21; 07/22/21 06 by Antonia , 07/22/21 1346 by Placement Time: 06; Fredi Salinas, RMimaNMima Catheter Size: 18 G; Orientation: Left, Lower, Posterior; Location: Forearm; Site Prep: Chlorhexidine (Preferred); Insertion Attempts: 1; Removal Date: 07/22/21; Removal Time: 134; Removal Reason: Per protocol ETT Placement Date: 07/22/21; 07/22/21746 by 07/22 by Placement Time: 746 Bunny George R.N., Her Bunny espitia, (created via procedure C.S.C. R.N., C.S .C. documentation); Mask Ventilation: Easy mask; Type: Standard ETT; Single Lumen Tube Size: 7 mm; Cuffed: Yes; Location: Oral; Grade View: Grade 1; Insertion Attempts: 1; Placement Verification: Bilateral breath sounds, Positive ETCO2, Symmetrical chest wall movement; Removal Date: 07/22/21; Removal Time: 926 documented in this encounter Social History Tobacco Use Types Packs/Day Years [...] or relatives? How often do you attend confucianism or More than 4 times per year 05/09/2021 evangelical services? Do you belong to any clubs or No 05/09/2021 organizations such as confucianism groups, unions, fraternal or athletic groups, or [...] place to sleep or slept in a fci (including now)? Education Answer Date Recorded What is the highest level of school Master's degree (e.g., Reji Landry MS, 02/27/2020 you have completed or the highest Melanie, MEd, MACHINE CAPTAIN, KARLI) degree you have received? 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 - 07/22/2021 10:54 AM CDT Patient: Megan Carmichael Procedure Summary Date: 07/22/21 Room / Location: [place] [address] / [facility] in [place], [place] Anesthesia Start: 738 Anesthesia Stop: 931 Procedure: 1. Right reverse TSA ([place] uncemented humerus/glenoid) 2. Right open biceps tenodesis(Right Shoulder) Diagnosis: Pain Shoulder Right (Pain Shoulder Right [M25.511].) Providers: Alfredo De Souza M.D. Responsible Provider: Skip Espinoza M.D. Anesthesia Type: general ASA Status: 3 Anesthesia Type: general Last vitals Vitals Value Taken Time BP 146/70 07/22/21 1030 Temp 36.3 ??C 07/22/21 0930 Pulse 83 07/22/21 1054 Resp 21 07/22/21 1035 SpO2 95 % 07/22/21 1054 Vitals shown include unvalidated device data. Please reference Vitals flowsheet for most recent vital signs. Anesthesia Post Evaluation Patient Disposition: dismissal Cardiovascular status: hemodynamics (HR & BP) acceptable Respiratory status: patent airway with spontaneous effort Temperature: normothermic Oxygen requirements: room air Level of consciousness: awake Pain score: pain adequately controlled and/or at baseline Post Op nausea/vomiting: yes- treated as necessary Hydration status: euvolemic Comments: Pain is adequately controlled. No shortness of breath, chest pain, new or worsening paraesthesia, severe sore throat, blurry vision, or eye pain. Nausea treated with haldol and kytril in PACU. Anesthesia Procedure Notes - Bunny George R.N., C.S.C. - 07/22/2021 8:07 AM CDTAssociated Order(s): Airway Airway Date/Time: 07/22/2021 7:47 AM Performed by: Bunny George R.N., C.S.CMima Authorized by: Skip Espinoza M.D. Patient location during procedure: OR / Procedure Area PROCEDURE DETAILS: Mask difficulty assessment: easy mask Final airway type: video laryngoscope Laryngeal Manipulation: no Final best view of glottic structures - Cormack/Lehane Score: grade 1 ETT location: oral VL device: glide scope Montrose scope blade size: 3 Adult tube size: 7 Adult ETT distance at teeth/gum: 22 Oral tube type: standard ETT Cuffed: yes Number of attempt to successful placement: 1 Airway confirmation: bilateral breath sounds, positive ETCO2 and bilateral chest rise Other previous techniques attempted: none PRE PROCEDURE DETAILS: Pre evaluation for airway management: procedure Urgency: elective Preop assessment of probable difficulty: questionable / suspicious difficult airway Preoxygenation: bag valve mask SEDATION / ANESTHESIA Anesthesia method: anesthesia POST PROCEDURE DETAILS: Procedure outcome: successful Airway event: no complications Anesthesia Preprocedure Evaluation - Skip Espinoza M.D. - 07/22/2021 7:25 AM CDT Preprocedure Anesthesia & H&P Assessment Procedure Summary Date/Time: 07/22/21 0745 Procedure: ARTHROPLASTY TOTAL REVERSE SHOULDER. (Right ) Diagnosis: Pain Shoulder Right [M25.511] Pre-op diagnosis: Pain Shoulder Right [M25.511]. Location: [address] 01 [facility] / [facility] in [place], [place] Providers: Alfredo De Souza M.D. Pertinent components of the patient's history including current problem list, medical history, surgical history, family history, social history, medications and allergies were reviewed. Present illnessand pre-op diagnosis were confirmed. The planned surgery / procedure was verified with the patient /legal guardian. The patient's general health condition remains unchanged RELEVANT COMORBID CONDITIONS ANESTHESIA (+) Post Operative Nausea/Vomiting CV (+) Hypertension Essential Primary RESP (+) Asthma Moderate Persistent (HCC) GI (+) Gastroesophageal Reflux Disease NOS ONC (+) Personal History Of Malignant Melanoma Of Skin Other (+) Pain Shoulder Right OBJECTIVE PHYSICAL EXAMINATION Airway (HEENT) Mallampati: II TM Distance: >3 FB Neck ROM: Full Mouth Opening: >3 cm Upper Lip Bite Test Class: I Cardiovascular Rhythm: Regular Rate: Normal Cardiovascular Assessment: cardiovascular normal Functional Capacity: >4 METS Pulmonary Pulmonary Assessment: Clear General / Constitutional Constitutional Assessment: Normal General State of Health:: healthy appearing and calm ASSESSMENT / PLAN ANESTHESIA PLAN ASA: 3 Anesthesia Plan: general with pain block Patient seen and allergies reviewed, anesthesia plan and risks discussed directly with patient /legal guardian or through an freelance interpreter/translator. Risks/Benefits/Alternatives of Blood transfusion discussed with patient / legal guardian, including an opportunity to ask questions and/or decline some or all transfusion therapies. The patient / legalguardian consented to the use of all blood products, as deemed medically necessary Approval to Proceed: approved for anesthesia documented in this encounter Plan of Treatment Not on filedocumented as of this encounter Procedures Procedure Name Priority Date/Time Associated Comments Diagnosis LDA ANE ENDOTRACHEAL Routine 07/22/2021 7:47 AM R esults for this AIRWAY CDT procedure are i n the results section. documented in this encounter Results LDA ANE ENDOTRACHEAL AIRWAY (07/22/2021 7:47 AM CDT) Narrative Bunny George R.N., C.S.C. - 022 7:47 AM CDT Bunny George R.N., C.S.C. ? 07/22/2021 ??8:08 AM Airway Date/Time: 07/22/2021 7:47 AM Performed by: Bunny George R.N., C. S.C. Authorized by: Skip Espinoza M. D. Patient location during procedure: OR / Procedure Area PROCEDURE DETAILS: Mask difficulty assessment: easy mask Final airway type: video laryngoscope Laryngeal Manipulation: no ?? Final best view of glottic structures - Cormack/Lehane Score: grade 1 ETT location: oral VL device: glide scope Montrose scope blade size: 3 Adult tube size: 7 Adult ETT distance at teeth/gum: 22 Oral tube type: standard ETT Cuffed: yes Number of attempt to successful placemen t: 1 Airway confirmation: bilateral breath so unds, positive ETCO2 and bilateral chest rise Other previous techniques attempted: non e PRE PROCEDURE DETAILS: Pre evaluation for airway management: pr ocedure Urgency: elective Preop assessment of probable difficulty: questionable / suspicious difficult airway Preoxygenation: bag valve mask SEDATION / ANESTHESIA Anesthesia method: anesthesia POST PROCEDURE DETAILS: ? Procedure outcome: successful ?? Airway event: no complications Skip Espinoza M.D. ANESTHESIA ORDERABLES documented in this encounter Visit Diagnoses Not on filedocumented in this encounter Administered Medications Inactive Administered Medications - up to 3 most recent administrations Medication Order MAR Action Action Date Dose Rate Site albuterol 90 mcg/actuation Given 07/22/2021 7:40 AM CDT 2 puffs inhaler inhalation, As needed, Starting on Wed07/22/21 at 0740, Anesthesia Intra-op ceFAZolin injection 2,000 mg (ANCEF) Given 07/22/2021 8:02 AM CDT 2 g 2,000 mg (rounded from 1,452.5 mg = 25 m g/kg ? 58.1 kg Dosing weight), intravenous, Once, On Wed07/22/21 at 0715, For 1 dose, Intra-Op, Preoperatively within 1 hour prior to surgical incision If needed, reconstitute vial per package insert instructions. See IVAG for administration guidelines. , Drug Monitoring Program: Pharmacist to adjust medication dosing based on indication and drug clearance factors., Indications: Prophylaxis, surgical dexAMETHasone injection (DECADRON) Given 07/22/2021 8:04 AM CDT 8 mg intravenous, As needed, Starting on Wed07/22/21 at 0804, Anesthesia Intra-op ePHEDrine (PF) injection Given 07/22/2021 8:20 AM CDT 10 mg intravenous, As needed, Starting on Wed07/22/21 at 0818, Anesthesia Intra-op Given 07/22/2021 8:18 AM CDT 10 mg fentaNYL injection (SUBLIMAZE) Given 07/22/2021 8:25 AM CDT 50 mcg intravenous, As needed, Starting on Wed07/22/21 at 0745, Anesthesia Intra-op Given 07/22/2021 7:45 AM CDT 100 mcg HYDROmorphone (PF) injection (DILAUDID) Given 07/22/2021 8:10 AM CDT 0.4 mg intravenous, As needed, Starting on Wed07/22/21 at 0810, Anesthesia Intra-op ketamine injection (KETALAR) Given 07/22/2021 8:05 AM CDT 20 mg intravenous, As needed, Starting on Wed07/22/21 at 0805, Anesthesia Intra-op lactated ringers New Bag 07/22/2021 7:40 AM CDT intravenous, Continuous Infusion: Per Instructions PRN, Starting on Wed07/22/21 at 0740, Anesthesia Intra-op lidocaine (PF) (cardiac) injection Given 07/22/2021 7:45 AM CDT 60 mg intravenous, As needed, Starting on Wed07/22/21 at 0745, Anesthesia Intra-op ondansetron (PF) injection (ZOFRAN) Given 07/22/2021 8:53 AM CDT 4 mg intravenous, As needed, Starting on Wed07/22/21 at 0853, Anesthesia Intra-op phenylephrine injection Given 07/22/2021 8:20 AM CDT 50 mcg intravenous, As needed, Starting on Wed07/22/21 at 0820, Anesthesia Intra-op propofol 10 mg/mL infusion New Bag 07/22/2021 7:48 25 mcg/kg/min 8 .715 mL/hr (DIPRIVAN) AM CDT intravenous, Continuous Infusion: Per Instructions PRN, Starting on Wed07/22/21 at 0748, Anesthesia Intra-op propofol bolus from bag (DIPRIVAN) Given 07/22/2021 8:28 AM CDT 20 mg intravenous, As needed, Starting on Wed07/22/21 at 0828, Anesthesia Intra-op propofoL injection (DIPRIVAN) Given 07/22/2021 7:45 AM CDT 100 mg intravenous, As needed, Starting on Wed07/22/21 at 0745, Anesthesia Intra-op succinylcholine (PF) injection (ANECTINE ) Given 07/22/2021 7:46 AM CDT 100 mg intravenous, As needed, Starting on Wed07/22/21 at 0746, Anesthesia Intra-op tranexamic acid in NaCl IVPB 1,000 mg Given 07/22/2021 8:00 AM C DT 1 g (CYKLOKAPRON) 1,000 mg (1 g), intravenous, at 300 mL/hr, Administer over 20 Minutes, Once, On Wed07/22/21 at 0715, For 1 dose, Intra-Op, Administer in OR upon induction tranexamic acid in NaCl IVPB 1,000 mg Given 07/22/2021 8:58 AM C DT 1 g (CYKLOKAPRON) 1,000 mg (1 g), intravenous, at 300 mL/hr, Administer over 20 Minutes, Once, On Wed07/22/21 at 0715, For 1 dose, Intra-Op, Administer in OR just before dropping tourniquet documented in this encounter
--- OUTSIDE RECORDS SUMMARY | 2021-12-03 11:38 | XMS_ITS | Encounter Summary ---
:1955 Author Organization [facility] Address [address] [place] [address] Care Team Providers Name Role Phone Unavailable Primary Care Provider Unavailable Encounter Details Date Type Department Care Team Description 07/25/2021 Ancillary Procedure Department of Brigid Snow Lum p In The Right Radiology in M.D. Breast Unspecified [place], [facility] [address] [place], [place] [address] [facility] [address] [place], [place] [phone] (Work) Social History Tobacco Use Types Packs/Day Years [...] More than 4 times per year 05/09/2021 taoist services? Do you belong to any clubs [...] have completed or the highest Melanie, MEd, JUNIOR ACCOUNT EXECUTIVE, KARLI) degree you have received? 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 documented in this encounter Results Interpretation of Outside Breast [...] have also been present on the 2 mammogram. Diagnostic right breast ultrasound perfo rmed [...] have also been present on the 2 mammogram. Diagnostic right breast ultrasound perfo rmed [...]
--- OUTSIDE RECORDS SUMMARY | 2021-12-03 11:38 | XMS_ITS | Encounter Summary ---
:1955 Author Organization [facility] Address [address] [place] [id number] Care Team Providers Name Role Phone Unavailable Primary Care Provider Unavailable Reason for Visit Physical Therapy (Routine) - Closed Specialty Diagnoses / Procedures Referred By Contact Refer red To Contact Diagnoses Pain Shoulder Right Misti Owens APRN, [facility] Procedures PT Evaluate and treat C.N.P., M.S.N. [address] [place] [phone] Referral ID Status Reason Start Date Expiration Date Visits Requ ested Visits Authorized [id number] Closed 05/21/2021 05/21/2022 1 1 Encounter Details Date Type Department Care Team Description 07/21/2021 Comprehensive Visit Department of Physical Misti Bella APRN, C.N.P., M.S.N. [address] [place] [phone] Pain Shoulder Medicine and StathasNini P.T., D.P.T. [address] [place] [phone] Right Rehabilitation in [place], [place] [address] [place] [phone] Social History Tobacco Use Types Packs/Day Years [...] or relatives? How often do you attend jew or More than 4 times per year 05/09/2021 alevism services? Do you belong to any clubs or No 05/09/2021 organizations such as jew groups, unions, fraternal or athletic groups, or [...] place to sleep or slept in a group home (including now)? Education Answer Date Recorded What is the highest level of school Master's degree (e.g., M A, MS, 02/27/2020 you have completed or the highest Melanie, MEd, DEBEADER, KARLI) degree you have received? 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 - 07/21/2021 9:00 AM CDT Physical Therapy Musculoskeletal Outpatient Evaluation and Treatment By co-signing this note, the provider certifies the therapy being provided to this patient is reasonable and necessary for the diagnosis or treatment of this patient. SUBJECTIVE Patient's Name: Megan Carmichael Referring Provider: Misti Owens APRN, C.N.P., M.S.N. Medical Diagnosis: 1. Pain Shoulder Right Reason for Referral: PT Evaluate and Treat: Orthopedic Payor: [facility] / Plan: [employer] [place] [employer] PLAN PPO / Product Type: PPO / PT Next Certification Date: 10/19/21 PERTINENT MEDICAL / SURGICAL HISTORY: Patient Active Problem List Diagnosis ??? Hypertension Essential Primary ??? Asthma Moderate Persistent (HCC) ??? Personal History Of Malignant Melanoma Of Skin ??? Rhinitis Allergic ??? Pain Shoulder Right ??? Post Operative Nausea/Vomiting ??? Gastroesophageal Reflux Disease NOS Past Surgical History: Procedure Laterality Date ??? DILATATION AND CURETTAGE 1983 Post miscarriage ? ? HERNIA REPAIR 2003 & 2008 ??? HYSTERECTOMY 2006 ??? OOPHORECTOMY, PARTIAL OR TOTAL, UNILATERAL OR BILATERAL;.. 2007 ??? OTHER CONVERTED SHX (SEE COMMENT) N/A 10/14/2010 >Extraperitoneal laparoscopic-assisted hernia repair (Dictated by Dr. Landaverde). ??? OTHER CONVERTED SHX (SEE COMMENT) N/A 10/13/2005 >Right Mansoor's ligament repair with Prolene mesh. ??? OTHER SURGICAL HISTORY 2007 Urethral stent ??? WISDOM TOOTH EXTRACTION Megan Brown Jany is a 65 y.o. female who presents to outpatient physical therapy for pre-operative assessment and instruction. Prior level of function: occasionally limited. Current assistive device: no devices Home environment: multiple level home Assistance: home with family assistance or supervision Handedness: Left-handed Total Visit Count: 1 PT Next Certification Date: 10/19/21 OBJECTIVE REVIEW OF SYSTEMS History obtained from chart review and the patient PHYSICAL EXAM Strength: normal throughout upper and lower extremities Balance: Good (maintains balance without support) Sit to stand transition: is normal Elbow range of motion: full elbow range of motion bilaterally Hand/wrist range of motion: full hand/ wrist range of motion bilaterally TREATMENT Patient and/or caregiver instructed and demonstrated understanding in the following: Positioning: - supine and sitting using folded towels under elbow - with immobilizer on the hand should be approximately midline to keep elbow more anterior than shoulder Dressing/activities of daily living: - Donning/doffing sling for exercise, axillary hygiene, and donning/doffing shirt - Proper fitting and adjustment of the shoulder immobilizer - Donning/doffing and fitting of shower sling - Upper extremity dressing using button down shirt or T-shirt (instructed to bring to surgery) Exercise protocol: Dr. De Souza standard total shoulder arthroplasty -Active range of motion wrist and hand -Supine active assisted range of motion elbow avoiding ER at the shoulder No shoulder range of motion for first 4 weeks Passive shoulder range of motion at 4-6 weeks: -Supine passive shoulder elevation as tolerated -Supine external rotation as tolerated -Post op shoulder restrictions--no active shoulder movement--reaching out and lifting arm -Use of ice pack-20 minutes on/60 minutes off Patient Issued Exercises Following Shoulder Surgery ([id number]). Contact monitoring: PPE used during therapy: Therapist was wearing the following PPE throughout entire session: surgicalmask Patient was wearing a mask during therapy session: yes Assessment Clinical Impression: Patient presents with functional limitations with impending upper extremity weight bearing restrictions, range of motion restrictions, and difficulty with activities of daily living due to shoulder surgery. Clinical Presentation: Stable Examination elements: 3 Clinical Decision Making: Low complexity clinical decision making Clinical Decision Making Complexity: Low complexity clinical decision making Functional Goals and Timeframes: Patient will demonstrate ability to marbella/doff the shoulder immobilizer and demonstrate understandingof post-operative passive range of motion exercises in this one session to allow for safe transitionto home after surgery. -- MET Plan Ms. Carmichael was educated regarding evaluative findings, diagnosis, prognosis, potential risks and benefits of rehabilitation interventions. A collaborative effort was used to establish goals and plan of care. She was informed of her right to make decisions regarding her care, including refusal of examination or treatment or selection of services from another provider if desired. The treatment plan may be progressed or modified based upon her response to treatment. Physical Therapy Attestation Statement: Patient agrees with the plan of care and goals. Treatment Plan: Start of Plan of Care: 07/21/2021 PT Next Certification Date: 10/19/21 Number of Visits: One time visit PT Duration: One time visit PT Frequency: One-time visit Time Spent with Patient Evaluations PT Eval - Low Complexity: 6 min Therapeutic Interventions Home Management Training (min): 10 min Therapeutic Activity (min): 16 min Therapeutic Exercise (min): 12 min Time Tracking Total Timed Units (min): 38 min Total Treatment Time (min): 44 min Niin Chung P.T., D.P.T. documented in this encounter Plan of Treatment Not on filedocumented as of this encounter Visit Diagnoses Diagnosis Pain Shoulder Right documented in this encounter
--- OUTSIDE RECORDS SUMMARY | 2021-12-03 11:38 | XMS_ITS | Encounter Summary ---
:1955 Author Organization [facility] Address [address] [place] [address] Care Team Providers Name Role Phone Unavailable Primary Care Provider Unavailable Reason for Visit Reason Comments Discharge Planning Discharge Planning Encounter Details Date Type Department Care Team Description 07/08/2021 Clinical Communication Department of David Pineda Di scharge Planning Orthopedic Surgery R.N. (Discharge in [place], [address] [facility] Planning) [place], [place] [address] [facility] [place] [address] [place], [place] [phone] (Work) [phone] Social History Tobacco Use Types Packs/Day Years [...] or relatives? How often do you attend yazdanism or More than 4 times per year 05/09/2021 islam services? Do you belong to any clubs or No 05/09/2021 organizations such as yazdanism groups, unions, fraternal or athletic groups, or [...] have completed or the highest Melanie, MEd, SOYBEAN GROWER, KARLI) degree you have received? Sex Assigned at Date Recorded Female 01/10/2021 2:57 AM OPTHALMIC TECH documented as of this encounter Miscellaneous Notes Telephone Encounter - David Pineda R.N. - 07/08/2021 4:19 PM CDT Phone call concerning dismissal plans after Megan Carmichael's scheduled 07/22/2021 Right Total Reverse Shoulder Arthroplasty with Dr. De Souza. Spoke with the patient. The patient plans on returning home. The role of caregiver and skidder driver will be filled by the patient's , Casper and the patient's adult child, Naila. A caregiver will be available in the hospital to receive/review instructions concerning the immobilizer, dressing, showering, and PROM assistance. The patient does not use a CPAP machine. The patient verbalized they did not take any anticoagulant, antiplatelet, or anti-rheumatic medication. She will hold Ibuprofen seven days prior to surgery. Questions answered. The following information was provided: driving and mobility restrictions. The phone call recipient was able to teach back; they addressed and discussed concerns. The following references were used: nursing clinical judgement. documented in this encounter Plan of Treatment Not on filedocumented as of this encounter Visit Diagnoses Not on filedocumented in this encounter
--- OUTSIDE RECORDS SUMMARY | 2021-12-03 11:38 | XMS_ITS | Encounter Summary ---
:1955 Author Organization [facility] Address [address] [place] [address] Care Team Providers Name Role Phone Unavailable Primary Care Provider Unavailable Reason for Referral MRI/CAT/PET Scan (Routine) - Pending Review Specialty Diagnoses / Procedures Referred By Contact Refer red To Contact Radiology Diagnoses Nodules Pulmonary Multiple Kim Almanzar APRN, [place] Procedures CT Chest without IV Contrast C.N.P., D.N.P. [address] [place] [address] Referral ID Status Reason Start Date Expiration Date Visits V isits Requested Authorized [id number] Pending 06/26/2021 06/26/2022 1 1 Review Encounter Details Date Type Department Care Team Description 06/26/2021 Orders Only Department of Urology Kim Almanzar Pulmonary in [place], JERSON Henderson, C.N.PMima, Multiple ( Primary Dx) [place] D.N.P. [address] [facility] [address] [place] [address] [phone] Social History Tobacco Use Types Packs/Day Years [...] More than 4 times per year 05/09/2021 holiness services? Do you belong to any clubs [...] have completed or the highest Melanie, MEd, MANAGER OF INTERNAL AUDIT, KARLI) degree you have received? 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
--- OUTSIDE RECORDS SUMMARY | 2021-12-03 11:38 | XMS_ITS | Encounter Summary ---
:1955 Author Organization [facility] Address [address] [place] [address] Care Team Providers Name Role Phone Unavailable Primary Care Provider Unavailable Encounter Details Date Type Department Care Team Description 08/04/2021 Orders Only Department of Orthopedic Misti Owens APRN, Surgery in [facility] C.N., [facility] [address] [facility] [address] [place] [phone] (Wo rk) Social History Tobacco Use Types [...] have completed or the highest Melanie, MEd, CAMERA REPAIR TECHNICIAN, KARLI) degree you have received? 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
--- OUTSIDE RECORDS SUMMARY | 2021-12-03 11:38 | XMS_ITS | Encounter Summary ---
:[address] [facility] Address [address] [place] [address] Care Team Providers Name Role Phone Unavailable Primary Care Provider Unavailable Encounter Details Date Type Department Care Team Description 07/22/[address] [facility] Andrew Guillen am, Lydia Lee.Ph.T. [address] [facility] [address] [place] [address] [phone] Social History Tobacco Use Types Packs/Day Years [...] or relatives? How often do you attend tenriism or More than 4 times per year 05/09/2021 yarsanism services? Do you belong to any clubs or No 05/09/2021 organizations such as tenriism groups, unions, fraternal or athletic groups, or [...] place to sleep or slept in a fpc (including now)? Education Answer Date Recorded What is the highest level of school Master's degree (e.g., Reji Landry MS, 02/27/2020 you have completed or the highest Vladimir Navarro, AIR BRAKES INSPECTOR, KARLI) degree you have received? Sex Assigned at Date Recorded Female 01/10/2021 2:57 AM RADIATION THERAPIST documented as of this encounter Plan of Treatment Not on filedocumented as of this encounter Visit Diagnoses Not on filedocumented in this encounter
--- OUTSIDE RECORDS SUMMARY | 2021-12-03 11:38 | XMS_ITS | Encounter Summary ---
:1955 Author Organization [facility] Address [address] [place] [address] Care Team Providers Name Role Phone Unavailable Primary Care Provider Unavailable Reason for Referral Outpatient (Routine) - Authorized Specialty Diagnoses / Procedures Referred By Contact Refer red To Contact Pulmonary Medicine Diagnoses Nodules Pulmonary Multiple Kim Almanzar, [facility] JERSON, C.N.P., D.N.P. [address] [place] [phone] Referral ID Status Reason Start Expiration Visits Visits Date Date Requested Authorized [id number] Authorized Specialty 06/12/2021 06/12/2022 1 1 Services Required Encounter Details Date Type Department Care Team Description 06/12/2021 Orders Only Department of Urology Kim Almanzar Pulmonary in [facility] Beatriz, JERSON, C.N.PMima, Multiple ( Primary Dx) [place] D.N.P. [address] [facility] [address] [place] [address] [phone] Social History Tobacco Use Types Packs/Day Years [...] or relatives? How often do you attend congregational or More than 4 times per year 05/09/2021 temple services? Do you belong to any clubs or No 05/09/2021 organizations such as congregational groups, unions, fraternal or athletic groups, or [...] have completed or the highest Melanie, MEd, DRUG AND ALCOHOL TREATMENT SPECIALIST, KARLI) degree you have received? Sex Assigned at Date Recorded Female 01/10/2021 2:57 AM RADIOGRAPHIC TECHNOLOGIST documented as of this encounter Progress Notes iVviana Rosario - 06/12/2021 5:14 PM CDT Pulmonary triaging request, waiting for there call back Viviana Rosario - 06/12/2021 5:14 PM CDT Pulm needs new Ct chest before they can triage, please place order, thanks Viviana Rosario - 06/12/2021 5:14 PM CDT Called patient to schedule ct chest. She wants to think about it and will call back to schedule documented in this encounter Plan of Treatment Scheduled Orders Name Type Priority Associated Diagnoses Order S chedule Pulmonary Function PFT Routine Nodules Pulmonary 1 Oc currences starting Tests Multiple 06/12/2021 unti l 09/11/2022 Scheduled Referrals Name Type Priority Associated Diagnoses Order S chedule Pulmonary Medicine Outpatient Referral Routine Nodules Pulmona ry Expected: - General consult Multiple 06/12/2021 (clinic) (Approximate), Expires: 09/11/2022 documented as of this encounter Visit Diagnoses Diagnosis Nodules Pulmonary Multiple - Primary documented in this encounter
--- OUTSIDE RECORDS SUMMARY | 2021-12-03 11:38 | XMS_ITS | Encounter Summary ---
:1955 Author Organization [facility] Address [address] [place] [address] Care Team Providers Name Role Phone Unavailable Primary Care Provider Unavailable Encounter Details Date Type Department Care Team Description 07/25/2021 Ancillary Procedure Department of Brigid Snow Lum p In The Right Radiology in M.D. Breast Unspecified [place], [facility] [address] [place], [place] [address] [facility] [address] [place], [place] [phone] (Work) Social History Tobacco Use Types [...] place to sleep or slept in a halfway (including now)? Education Answer Date Recorded What is the highest level of school Master's degree (e.g., Reji Landry, MS, 02/27/2020 you have completed or the highest Melanie, MEd, INJECTION MOLDING MACHINE OPERATOR, KARLI) degree you have received? Sex Assigned at Date Recorded Female 01/10/2021 2:57 AM MECHANICAL TEST ENGINEER documented as of this encounter Plan of [...]
--- OUTSIDE RECORDS SUMMARY | 2021-12-03 11:38 | XMS_ITS | Encounter Summary ---
:1955 Author Organization [facility] Address [address] [place] [address] Care Team Providers Name Role Phone Unavailable Primary Care Provider Unavailable Reason for Referral MRI/CAT/PET Scan (Routine) - Closed Specialty Diagnoses / Procedures Referred By Contact Refer red To Contact Radiology Diagnoses Lesion Kidney Gracy Quiroz, [place] Procedures CT Abdomen Pelvis with IV Contrast CT Abdomen Pelvis without and with IV Contrast WI CT ABD&PELVIS W BERLIN Vela, M.S. [address] [place] [address] Referral ID Status Reason Start Date Expiration Date Visits Requ ested Visits Authorized [id number] Closed 03/13/2020 03/13/2022 1 1 Reason for Visit MRI/CAT/PET Scan (Routine) - Closed Specialty Diagnoses / Procedures Referred By Contact Refer red To Contact Radiology Diagnoses Lesion Kidney Gracy Quiroz, [place] Procedures CT Abdomen Pelvis with IV Contrast CT Abdomen Pelvis without and with IV Contrast WI CT ABD&PELVIS W BERLIN Vela, M.S. [address] [place] [address] Referral ID Status Reason Start Date Expiration Date Visits Requ ested Visits Authorized [id number] Closed 03/13/2020 03/13/2022 1 1 Encounter Details Date Type Department Care Team Description 05/28/2021 Hospital Encounter Department of Gracy Quiroz [facility] Radiology, Thais Vela M.SMima [facility], in [address] [place] [address] [place] [id number] [place] [address] (Work) [phone] Social History Tobacco Use Types Packs/Day Years [...] or relatives? How often do you attend latter-day or More than 4 times per year 05/09/2021 oriental orthodox services? Do you belong to any clubs or No 05/09/2021 organizations such as latter-day groups, unions, fraternal or athletic groups, or [...] have completed or the highest Melanie, MEd, MLT, KARLI) degree you have received? 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 CREATININE, POCT, Routine 05/28/2021 8:33 Results for this B AM CDT procedure are i n the results section. CREATININE, POCT, Routine 05/28/2021 8:33 Results for this B AM CDT procedure are i n the results section. documented in this encounter Results CT Abdomen Pelvis with IV Contrast (05/28/2021 9:07 AM CDT) Anatomical Region Laterality Modality Abdomen, Pelvis, Abdominal RST LOS, N/A Comp uted Tomography, Computed Abdominal ARZ LOS, Abdominal FLA LOS Norberto ography Specimen (Source) Anatomical Collection Method Collection Time Re ceived Time Location / / Volume Laterality 05/28/2021 9:10 AM CDT Impressions 05/28/2021 10:02 AM CDT 1. No evidence of metastatic disease in the abdomen or pelvis. 2. 1 cm nonenhancing nodule protruding f rom the lower pole of the right kidney is stable. Narrative 05/28/2021 10:02 AM CDT EXAM: ??CT ABDOMEN PELVIS WITH IV CONTRAST COMPARISON: ??02/29/2020 FINDINGS: ??Stable 1 cm nonenhancing sli ghtly high density nodule protruding from the lower pole of the right kidney which is likely a cyst containing hemorrhage or debris. Tiny cyst protruding from the upper pole of the right kidney. Right inguinal hernia repair. Tiny proba ble cysts in the right hepatic lobe. Stable calcification in or adjacent to the gallbladder. Small es ophageal hiatal hernia. Gastric diverticulum. Multiple duodenal diverticula. Mild hypertrophic changes in the lumbar spine. Slight anterolisthesis of L4 on L5. Procedure Note Paras Martin M.D. - 05/28/2021Formatti ng of this note might be different from the original. EXAM: CT ABDOMEN PELVIS WITH IV CONTRAST COMPARISON: 02/29/2020 FINDINGS: Stable 1 cm nonenhancing sligh tly high density nodule protruding from the lower pole of the right kidney which is likely a cyst containing hemorrhage or debris. Tiny cyst protruding from the upper pole of the right kidney. Right inguinal hernia repair. Tiny proba ble cysts in the right hepatic lobe. Stable calcification in or adjacent to the gallbladder. Small es ophageal hiatal hernia. Gastric diverticulum. Multiple duodenal diverticula. Mild hypertrophic changes in the lumbar spine. Slight anterolisthesis of L4 on L5. IMPRESSION: 1. No evidence of metastatic disease in the abdomen or pelvis. 2. 1 cm nonenhancing nodule protruding f rom the lower pole of the right kidney is stable. Gracy Quiroz P.A.-C., M.S. IMG CT PROCEDURES Creatinine, POCT (05/28/2021 8:33 AM CDT) P athologist Signature Creatinine, 0.7 0.6 - 1.0 05/28/2021 PCDT POCT, B mg/dL 8:40 AM CDT Comment: ----ADDITIONAL INFORMATION---- Performed at the Point of Care Specimen Anatomical Collection Method Collection Time Receive d Time (Source) Location / / Volume Laterality Blood 05/28/2021 8:33 AM 2 8:40 CDT AM CDT Unknown Provider LAB POCT ORDERABLES - DEVICE Performing Organization Address City/State/ZIP Code Phon e Number POC [facility] PERFORMING [address] [place] [address] LABS PCDT [facility] [place] [address] [place] [address] Creatinine, POCT (05/28/2021 8:33 AM CDT) P athologist Signature eGFR-Black/Afri >90 >=60 05/28/2021 PCMO can English, mL/min/BSA 8:40 AM CDT POCT Comment: ----ADDITIONAL INFORMATION---- Estimated GFR calculated using the 2009 CKD_EPI creatinine equation. eGFR Non-Black/, >90 >=60 mL/min/BSA 05/28/2021 8:40 AM CDT PCMO POCT Comment: ----ADDITIONAL INFORMATION---- Estimated GFR calculated using the 2009 CKD_EPI creatinine equation. Specimen Anatomical Collection Method Collection Time Receive d Time (Source) Location / / Volume Laterality Blood 05/28/2021 8:33 AM 2 8:40 CDT AM CDT Unknown Provider LAB POCT ORDERABLES - DEVICE Performing Organization Address City/[facility] Code Phon e Number POC [facility] [address] [place] [address] OUTPATIENT LABS PCMO [facility] [place] [address] [place] [address] documented in this encounter Visit Diagnoses Diagnosis Lesion Kidney documented in this encounter Administered Medications Inactive Administered Medications - up to 3 most recent administrations Medication Order MAR Action Action Date Dose Rate Site iohexoL 300 mg iodine/mL solution Given 05/28/2021 9:02 AM CDT 1 40 mL 1-200 mL (OMNIPAQUE) 1-200 mL, intravenous, Once in imaging, contrast, Starting on Wed05/28/21 at 0840, For 1 dose, Imaging Protocol Orders, Dose per Radiant Medication Guidelines sodium chloride (PF) 0.9 % injection 1-1 00 mL Given 05/28/2021 9:02 AM CDT 50 mL 1-100 mL, intravenous, Once, On Wed05/28/21 at 0845, For 1 dose, Imaging Protocol Orders documented in this encounter
--- OUTSIDE RECORDS SUMMARY | 2021-12-03 11:38 | XMS_ITS | Encounter Summary ---
:1955 Author Organization [facility] Address [address] [place] [address] Care Team Providers Name Role Phone Unavailable Primary Care Provider Unavailable Encounter Details Date Type Department Care Team Description 07/21/2021 Hospital Encounter Department of Naresh Vo [facility] Laboratory Medicine N, DIRECTOR SHOPPER MARKETING, C.N.P., Exam and Pathology, .S.Formerly [facility], [facility]1983 in [address] [facility] [phone] [place] [address] [place], [place] (Work) [phone] Social History Tobacco Use Types Packs/Day Years [...] More than 4 times per year 05/09/2021 mu-ism services? Do you belong to any clubs [...] have completed or the highest Melanie, MEd, TILE MOLDER HAND, KARLI) degree you have received? 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 oxyCODONE (ROXICODONE) 5 Take 0.5-1 tablets 15 [...] Name Priority Date/Time Associated Diagnosis Comme nts CBC WITH Routine 07/21/2021 1:02 PM Preanesthetic Medical Results for this DIFFERENTIAL, B CDT Exam procedure ar e in the results section. TYPE AND SCREEN Routine 07/21/2021 1:02 PM Preanesthetic Medic al Results for this CDT Exam procedure are i n the results section. documented in this encounter Results Type and Screen (with reflex Antibody ID) (07/21/2021 1:02 PM CDT) [facility] PharmAssistant Method Time Signature ABORh O Pos Not 07/21/2021 ETRM applicable 5:04 PM CDT Antibody Negative Negative 07/21/2021 ETRM Screen 5:17 PM CDT Type & Screen 09/18/2021 07/21/2021 ETRM Expiration 23:59 5:04 PM CDT Testing [place] DEFAULT 07/21/2021 ETRM Location 1:30 PM CDT Specimen Anatomical Collection Method Collection Time Receive d Time (Source) Location / / Volume Laterality Blood (Blood, 07/21/2021 1:02 PM 07/22/19 1:30 Venous) CDT PM CDT Schuyler Waller APRNNRafaela., M.S.N. LAB BLOOD BANK T EST ORDERABLES Performing Organization Address City/State/ZIP Code Phon e Number [facility] - [address] [place] [phone] [facility] [place] [address] [facility] [address] [facility] (ABNORMAL) CBC with Differential, Blood (07/21/2021 1:02 PM CDT) [facility] Method Time Signature Hemoglobin 11.9 11.6 - [...] Laterality Blood (Blood, 07/21/2021 1:02 PM 07/22/19 1:26 Venous) CDT PM CDT Schuyler Waller APRNN.Haydee., M.S.N. LAB BLOOD ADD-ON Performing Organization Address City/State/ZIP Code Phon e Number [facility] - [address] [place], [place] [address] [facility] [place] [address] [facility] [address] documented in this encounter Visit Diagnoses Diagnosis Preanesthetic Medical Exam documented in this encounter Additional Health Concerns Infection Onset Date Last Indicated Resolved Time COVID19 Pending 07/21/2021 07/21/2021 07/21/2021 7:14 PM CDT documented as of this encounter
--- OUTSIDE RECORDS SUMMARY | 2021-12-03 11:39 | XMS_ITS | Encounter Summary ---
:1955 Author Organization [facility] Address [address] [place] [address] Care Team Providers Name Role Phone Unavailable Primary Care Provider Unavailable Reason for Referral MRI/CAT/PET Scan (Routine) - Closed Specialty Diagnoses / Procedures Referred By Contact Refer red To Contact Radiology Diagnoses Painful Total Joint Arthroplasty Initial (HCC) Alfredo De Souza M.D. [facility] Procedures MR Shoulder Right without IV Contrast [address] [place], [place] [address] Referral ID Status Reason Start Date Expiration Date Visits Requ ested Visits Authorized [id number] Closed 05/13/2021 05/13/2022 1 1 Reason for Visit MRI/CAT/PET Scan (Routine) - Closed Specialty Diagnoses / Procedures Referred By Contact Refer red To Contact Radiology Diagnoses Painful Total Joint Arthroplasty Initial (HCC) Alfredo De Souza M.D. [facility] Procedures MR Shoulder Right without IV Contrast [address] [place], [place] [phone] Referral ID Status Reason Start Date Expiration Date Visits Requ ested Visits Authorized [id number] Closed 05/13/2021 05/13/2022 1 1 Encounter Details Date Type Department Care Team Description 05/28/2021 Hospital Encounter Department of De Souza, Alfredo Pain ful Total Joint Radiology, Dave Stahl M.D. Arthroplasty Initial Building, in 200 [facility] ([facility]) [facility] [phone] 200 [facility] [phone] [place], [place] (Work) [phone] Social History Tobacco Use Types Packs/Day Years [...] or relatives? How often do you attend uatsdin or More than 4 times per year 05/09/2021 quaker services? Do you belong to any clubs or No 05/09/2021 organizations such as uatsdin groups, unions, fraternal or athletic groups, or [...] have completed or the highest Melanie, MEd, MEAT MARKET MANAGER, KARLI) degree you have received? Sex Assigned at Date Recorded Female 01/10/2021 2:57 AM RECREATION MANAGER documented as of this encounter Medications [...] Procedure Name Priority Date/Time Associated Comments Diagnosis MR SHOULDER RIGHT RAD - Routine 05/28/2021 11:24 Painful Total Join t Results for this WITHOUT IV (most inpatients AM CDT Arthroplasty procedure a re in CONTRAST and all Initial (HCC) the results outpatients) section. documented in this encounter Results MR Shoulder Right without IV Contrast (05/28/2021 11:24 AM CDT) Anatomical Region Laterality Modality Upper Extremity, Shoulder, Musculoskeletal RST LOS, Right Magnetic Resonance Musculoskeletal ARZ LOS, Muskuloskeletal FLA LOS Specimen (Source) Anatomical Collection Method Collection Time Re ceived Time Location / / Volume Laterality 05/28/2021 11:25 AM CDT Impressions 05/28/2021 11:44 AM CDT 1. Advanced degenerative arthritis right glenohumeral joint with complete denuding of the articular cartilage. 2. Focal full-thickness tearing of the a nterior fibers of the supraspinatus tendon with minimal retraction. 3. Tendinopathy and high-grade partial-t hickness tearing subscapularis tendon. Less marked tendinopathy involving the distal infras pinatus tendon. 4. Diffuse, near circumferential, degene rative tearing of the glenoid labrum. No para labral cyst. 5. Moderate to large sized right shoulde r effusion with scattered areas of synovitis. Narrative 05/28/2021 11:44 AM CDT EXAM: ??MR SHOULDER RIGHT WITHOUT IV CONTRAST COMPARISON: ??Radiographs of the right s amy dated 03/05/2021. FINDINGS: ??MRI of the right shoulder wi thout IV gadolinium performed at [address] [place]. Despite repeating some imaging several images are mildly d egraded by involuntary motion artifact. Marked tendinopathy of the distal supras pinatus tendon with full thickness tearing involving the anterior most fibers which are retracted approximately 1.5 cm. Marked fatty atrophy of the supraspinatus muscle belly. Moderate ten dinopathy and partial-thickness tearing of the distal infraspinatus tendon with some undersurf lizette fraying. Mild to moderate infraspinatus muscle belly atrophy. Tendinopathy and high-grade par tial-thickness tearing of the distal subscapularis tendon with mild atrophy of the subscapularis m uscle belly. Intra-articular long head of biceps tendon is intact. Advanced degenerative arthritis right gl enohumeral joint with complete denuding of the articular cartilage over the humeral head articula r surface and glenoid articular surface with some hypertrophic change and bony remodeling. No significant subchondral cystic change. Diffuse degenerative tearing of the tuan oid labrum without discrete para labral cyst. Moderate to large right shoulder effusion with scatt ered areas of synovitis. Partially loculated fluid within the extra articular long head of biceps tendon sheath. Moderate degenerative arthritis right AC joint. Procedure Note Rafiq Ace M.D. - 05/28/2021Forma tting of this note might be different from the original. EXAM: MR SHOULDER RIGHT WITHOUT IV CONTR AST COMPARISON: Radiographs of the right jaren rodriguez dated 03/05/2021. FINDINGS: MRI of the right shoulder with out IV gadolinium performed at [address] [place]. Despite repeating some imaging several images are mildly d egraded by involuntary motion artifact. Marked tendinopathy of the distal supras pinatus tendon with full thickness tearing involving the anterior most fibers which are retracted approximately 1.5 cm. Marked fatty atrophy of the supraspinatus muscle belly. Moderate ten dinopathy and partial-thickness tearing of the distal infraspinatus tendon with some undersurf lizette fraying. Mild to moderate infraspinatus muscle belly atrophy. Tendinopathy and high-grade par tial-thickness tearing of the distal subscapularis tendon with mild atrophy of the subscapularis m uscle belly. Intra-articular long head of biceps tendon is intact. Advanced degenerative arthritis right gl enohumeral joint with complete denuding of the articular cartilage over the humeral head articula r surface and glenoid articular surface with some hypertrophic change and bony remodeling. No significant subchondral cystic change. Diffuse degenerative tearing of the tuan oid labrum without discrete para labral cyst. Moderate to large right shoulder effusion with scatt ered areas of synovitis. Partially loculated fluid within the extra articular long head of biceps tendon sheath. Moderate degenerative arthritis right AC joint. IMPRESSION: 1. Advanced degenerative arthritis right glenohumeral joint with complete denuding of the articular cartilage. 2. Focal full-thickness tearing of the a nterior fibers of the supraspinatus tendon with minimal retraction. 3. Tendinopathy and high-grade partial-t hickness tearing subscapularis tendon. Less marked tendinopathy involving the distal infras pinatus tendon. 4. Diffuse, near circumferential, degene rative tearing of the glenoid labrum. No para labral cyst. 5. Moderate to large sized right shoulde r effusion with scattered areas of synovitis. Alfredo BARON MRI PROCEDURES documented in this encounter Visit Diagnoses Diagnosis Painful Total Joint Arthroplasty Initial (HCC) documented in this encounter
--- OUTSIDE RECORDS SUMMARY | 2021-12-03 11:39 | XMS_ITS | Encounter Summary ---
:1955 Author Organization [facility] Address [address] [place] [address] Care Team Providers Name Role Phone Unavailable Primary Care Provider Unavailable Reason for Visit Reason Comments Patient Education MDI-Symbycort and Albuterol HFA; Peak flow meter/diary Encounter Details Date Type Department Care Team Description 03/11/2020 Education Division of Pulmonary Regulo Walters M.D., M.S. [address] [place] [phone] Asthma Chronic (HCC) Medicine in [place], Nikia Phan R.N. [place] [address] [place], [place] [address] Social History Tobacco Use Types Packs/Day Years [...] have completed or the highest Melanie, MEd, PARKING PATROLLER, KARLI) degree you have received? Sex Assigned at Date Recorded Female 01/10/2021 2:57 AM DIAMOND SIZER AND SORTER documented as of this encounter Plan of Treatment Not on filedocumented as of this encounter Visit Diagnoses Diagnosis Asthma Chronic (HCC) documented in this encounter
--- OUTSIDE RECORDS SUMMARY | 2021-12-03 11:39 | XMS_ITS | Encounter Summary ---
:1955 Author Organization [facility] Address [address] [place] [address] Care Team Providers Name Role Phone Unavailable Primary Care Provider Unavailable Encounter Details Date Type Department Care Team Description 03/07/2020 Hospital Encounter Department of Bakari Juárez Abnormal Computed Laboratory Medicine Horace Baumann Tomography and Pathology, [address] [facility] in [place], [place] [address] [place] [address] [place], [place] (Work) [phone] Social History Tobacco Use Types Packs/Day Years [...] or relatives? How often do you attend restoration or More than 4 times per year 05/09/2021 confucianist services? Do you belong to any clubs or No 05/09/2021 organizations such as restoration groups, unions, fraternal or athletic groups, or [...] have completed or the highest Melanie, MEd, DRAW FIRE OPERATOR, KARLI) degree you have received? Sex Assigned at Date Recorded Female 01/10/2021 2:57 AM LOG GETTER documented as of this encounter Medications at Time of Discharge Medication Sig Dispensed Refills Start Date End Date ascorbic acid, vitamin Take 1,000 mg by 0 014 C, (VITAMIN C) 500 mg mouth daily. tablet DIETARY SUPPLEMENT ORAL Take 10 tablets by 0 mouth as needed. Wazyren tea pills for consitpation docosahexaenoic acid/epa Take 2 capsules by 0 (FISH OIL ORAL) mouth daily. fluticasone propionate Administer 2 sprays 0 12/18 (FLONASE) 50 into each nostril as mcg/actuation nasal needed. spray lisinopriL Take 5 mg by mouth 0 12/22/2019 (PRINIVIL,ZESTRIL) 5 mg every morning. tablet vitamin B complex (B Take 1 tablet by 0 COMPLEX ORAL) mouth daily. cholecalciferol, vitamin Take 2,500 Units by 0 07/09/2021 D3, (VITAMIN D3 ORAL) mouth daily. ketoconazole (NIZORAL) 2 Apply 1 application 15 g 1 05/12/2021 % cream topically 2 (two) times a day. tretinoin (RETIN-A) Apply 1 application 0 05/12/2021 0.025 % cream topically as needed. Ventolin HFA inhaler Inhale 2 puffs as 0 01/27/20 20 01/15/2021 needed. documented as of this encounter Plan of Treatment Not on filedocumented as of this encounter Procedures Procedure Name Priority Date/Time Associated Comments Diagnosis MYCOBACTERIAL CULTURE, Routine 03/11/2020 12:03 R esults for this V PM LOG GETTER procedure are i n the results section. FUNGAL SMEAR Routine 03/11/2020 12:03 Abnormal Computed Result s for this PM LOG GETTER Tomography procedure are i n the results section. ACID FAST SMEAR FOR Routine 03/11/2020 12:03 Abnormal Computed Results for this MYCOBACTERIUM PM LOG GETTER Tomography procedure are in the results section. FUNGAL CULTURE, Routine 03/11/2020 12:03 Abnormal Computed Res ults for this ROUTINE PM LOG GETTER Tomography procedure are i n the results section. documented in this encounter Results Mycobacterial Culture (03/11/2020 12:03 PM LOG GETTER) [employer] Method Time Signature Mycobacterial No growth 04/22/2020 DTL Culture after 42 1:01 PM LOG GETTER days of incubation . Specimen Anatomical Collection Method Collection Time Receive d Time (Source) Location / / Volume Laterality Sputum 03/11/2020 12:03 03/11/2020 PM LOG GETTER 12:03 PM LOG GETTER Comment: Specimen Source Site: Sputum Narrative [facility] - 04/22/2020 1:01 PM LOG GETTER Mycobacteria specimen plated for culture, volume inadequate for optimal recovery. Bakari Juárez Jr., M.D. LAB MICROBIOLOGY - GENERAL O RDERABLES Performing Organization Address City/State/ZIP Code Phon e Number [facility] - [address] [place], [place] [address] [facility] [place] [address] [facility] [address] Acid Fast Smear For Mycobacterium (03/11/2020 12:03 PM LOG GETTER) [employer] Method Time Signature Acid Fast Smear Negative. 03/11/2020 DTL For Mycobacterium 11:03 PM LOG GETTER Specimen Anatomical Collection Method Collection Time Receive d Time (Source) Location / / Volume Laterality Sputum (Sputum) 03/11/2020 12:03 03/11/19 21 PM LOG GETTER 12:03 PM LOG GETTER Comment: Specimen Source Site: Sputum Narrative [facility] - 03/11/2020 11:03 PM LOG GETTER Mycobacteria specimen plated for culture, volume inadequate for optimal recovery. Bakari Juárez Jr., M.D. LAB MICROBIOLOGY - GENERAL O SEMAJ Performing Organization Address City/State/ZIP Code Phon e Number [facility] - [address] [place], [place] [address] [place] [address] [facility] [address] Fungal Culture, Routine (03/11/2020 12:03 PM LOG GETTER) Patholo gist Method Time Signature Fungal No growth 04/04/2020 DTL Culture, after 24 1:01 PM LOG GETTER Routine days of incubation. Specimen Anatomical Collection Method Collection Time Receive d Time (Source) Location / / Volume Laterality Sputum (Sputum) 03/11/2020 12:03 03/11/19 21 PM LOG GETTER 12:03 PM LOG GETTER Comment: Specimen Source Site: Sputum Narrative [facility] - 04/04/2020 1:01 PM LOG GETTER Mycobacteria specimen plated for culture, volume inadequate for optimal recovery. Bakari Juárez Jr., M.D. LAB MICROBIOLOGY - GENERAL O SEMAJ Performing Organization Address City/State/ZIP Code Phon e Number [facility] - [address] [place], [place] [address] [place] [address] [facility] [address] [facility] Fungal Smear (03/11/2020 12:03 PM LOG GETTER) P athologist Signature Fungal Smear Negative. 03/11/2020 DT 4:35 PM LOG GETTER Specimen Anatomical Collection Method Collection Time Receive d Time (Source) Location / / Volume Laterality Sputum (Sputum) 03/11/2020 12:03 03/11/19 21 PM LOG GETTER 12:03 PM LOG GETTER Comment: Specimen Source Site: Sputum Bakari Juárez Jr., M.D. LAB MICROBIOLOGY - GENERAL O SEMAJ Performing Organization Address City/State/ZIP Code Phon e Number [facility] - [address] [place], [place] [address] [place] [address] [facility] [address] [facility] documented in this encounter Visit Diagnoses Diagnosis Abnormal Computed Tomography documented in this encounter
--- OUTSIDE RECORDS SUMMARY | 2021-12-03 11:39 | XMS_ITS | Encounter Summary ---
:1955 Author Organization [facility] Address [address] [place] [address] Care Team Providers Name Role Phone Unavailable Primary Care Provider Unavailable Reason for Visit Reason Comments Appointment Encounter Details Date Type Department Care Team Description 04/30/2021 Clinical Communication Department of Urology Landen Naylor, [facility] [address] [facility] [address] [place] [address] [phone] Social History Tobacco Use Types Packs/Day Years [...] or relatives? How often do you attend mosque or More than 4 times per year 05/09/2021 anabaptism services? Do you belong to any clubs or No 05/09/2021 organizations such as mosque groups, unions, fraternal or athletic groups, or [...] have completed or the highest Melanie, MEd, SALON SALES CONSULTANT, KARLI) degree you have received? Sex Assigned at Date Recorded Female 01/10/2021 2:57 AM MANAGER TELECOM documented as of this encounter Miscellaneous Notes Telephone Encounter - Kristina Chun - 05/12/2021 8:58 AM CDT Thank you Telephone Encounter - Kim Almanzar APRN, C.N.P., D.N.P. - 05/08/2021 11:11 AM CDT New portal message to patient directly started. Telephone Encounter - Kristina Chun - 05/06/2021 3:54 PM CDT Spoke with Rosey in Radiology and the CT Shoulder Right without IV Contrast [[id number]]and the CT Abdomen Pelvis without and with IV Contrast [[id number]] can not be done together so wondering if there is another option for pt Thank you Telephone Encounter - Harriet Soto M.D. - 04/30/2021 7:09 PM CDT If patient wants to have CT abdomen with IV contrast at the same time as her CT shoulder and the radiology office is willing to accommodate, both of those can be done at the same time. She will not need another chest xray other than the one she is already getting. Thank you. Telephone Encounter - Kristina Chun - 04/30/2021 1:09 PM CDT Pt called in to schedule appts and is trying to minimize the amount of imaging Pt will be having a CT on shoulder 05/13/21 Pt also had a chest xray on April 26 2021 and is hoping another one is not needed Pt is sending the imaging Pt is wondering if there are other imaging options Best # to reach pt [phone] Thank you documented in this encounter Plan of Treatment Not on filedocumented as of this encounter Visit Diagnoses Not on filedocumented in this encounter Additional Health Concerns Infection Onset Date Last Indicated Resolved Time COVID19 Pending 05/10/2021 05/10/2021 05/11/2021 3:04 AM CDT documented as of this encounter
--- OUTSIDE RECORDS SUMMARY | 2021-12-03 11:39 | XMS_ITS | Encounter Summary ---
:1955 Author Organization [facility] Address [address] [place] [address] Care Team Providers Name Role Phone Unavailable Primary Care Provider Unavailable Encounter Details Date Type Department Care Team Description 03/07/2020 Diagnostic Division of Pulmonary Regulo Walters Chronic (HCC) Medicine in Pati Najera M.D., M.S. [place] [address] [facility] [address] [place] [phone] Social History Tobacco Use Types Packs/Day Years [...] More than 4 times per year 05/09/2021 scientology services? Do you belong to any clubs [...] to sleep or slept in a senior living (including now)? Education Answer Date Recorded What is the highest level of school Master's degree (e.g., M A, MS, 02/27/2020 you have completed or the highest Melnaie, MEd, MARKETING CONTENT MANAGER, KARLI) degree you have received? Sex Assigned at Date Recorded Female 01/10/2021 2:57 AM GLASS ENGRAVER documented as of this encounter Plan of Treatment Not on filedocumented as of this encounter Procedures Procedure Name Priority Date/Time Associated Diagnosis Comme nts EXHALED NITRIC Routine 03/07/2020 4:38 PM Asthma Chronic (HCC) Results for this OXIDE GLASS ENGRAVER procedure are i n the results section. documented in this encounter Results PUL Exhaled Nitric Oxide (03/07/2020 4:38 PM GLASS ENGRAVER) [facility] gist Method Time Signature ENOComment Patient MMODAL takes Albuterol. Exhaled NO Oral 40 MMODAL Parts per 39 MMODAL billion (ULN) Specimen (Source) Anatomical Location Collection Method / Collectio n Time Received Time / Laterality Volume Regulo Walters M.D., M.S. PFT ORDERABLES Performing Organization Address City/State/ZIP Code Phon e Number MMODAL MMODAL NA documented in this encounter Visit Diagnoses Diagnosis Asthma Chronic (HCC) documented in this encounter
--- OUTSIDE RECORDS SUMMARY | 2021-12-03 11:39 | XMS_ITS | Encounter Summary ---
:[address] [facility] Address [address] [place] [address] Care Team Providers Name Role Phone Unavailable Primary Care Provider Unavailable Encounter Details Date Type Department Care Team Description 12/26/2020 Orders Only RST PCP HLTH MNT Dejah Mota M.D. [address] [place], [place] [phone] (Wo rk) Social History Tobacco Use Types [...] place to sleep or slept in a half-way (including now)? Education Answer Date Recorded What is the highest level of school Master's degree (e.g., Reji Landry, , 02/27/2020 you have completed or the highest Melanie, Vladimir, CUSTOMS MANAGER, KARLI) degree you have received? Sex Assigned at Date Recorded Female 01/10/2021 2:57 AM DISABILITY INSURANCE CLAIM EXAMINER documented as of this encounter Plan of Treatment Not on filedocumented as of this encounter Visit Diagnoses Not on filedocumented in this encounter
--- OUTSIDE RECORDS SUMMARY | 2021-12-03 11:39 | XMS_ITS | Encounter Summary ---
:1955 Author Organization [facility] Address [address] [place] [address] Care Team Providers Name Role Phone Unavailable Primary Care Provider Unavailable Encounter Details Date Type Department Care Team Description 05/10/2021 Hospital Encounter Department of Malinda Mcnamara [facility] Lab Laboratory Medicine Claudy Sellers Exam in [place], [address] [place], [place] [address] [facility] [address] [place], [place] [phone] (Work) [phone] Social History Tobacco Use Types Packs/Day Years [...] or relatives? How often do you attend catholic or More than 4 times per year 05/09/2021 buddhism services? Do you belong to any clubs or No 05/09/2021 organizations such as catholic groups, unions, fraternal or athletic groups, or [...] have completed or the highest Melanie, MEd, RETAIL MANAGER IN TRAINING, KARLI) degree you have received? Sex Assigned at Date Recorded Female 01/10/2021 2:57 AM PRINCIPAL SYSTEMS ENGINEER documented as of this encounter Medications at [...] 10 mg tablet MOUTH EVERYDAY AT BEDTIME TURMERIC ORAL Take 2 tablets by 0 [...] 07/09/2021 -vilanterol (Trelegy Ellipta) 100-62.5-25 mcg/actuation inhaler ketoconazole (NIZORAL) 2 Apply 1 application 15 g 1 05/12/2021 % cream topically 2 (two) times a day. tretinoin (RETIN-A) Apply 1 application 0 05/12/2021 0.025 % cream topically as needed. umeclidinium (INCRUSE Inhale 1 puff once 1 each 3 [address]2005/12/2021 ELLIPTA) 62.5 daily. mcg/actuation inhaler documented as of this encounter Plan of Treatment Not on filedocumented as of this encounter Procedures Procedure Name Priority Date/Time Associated Diagnosis Comme nts SARS CORONAVIRUS-2 Routine 05/10/2021 10:02 Preprocedural Lab Exam Results for this RNA, V AM CDT procedure are i n the results section. documented in this encounter Results SARS Coronavirus-2 RNA, V Asymptomatic (05/10/2021 10:02 AM CDT) [facility] Method Time Signature SARS-CoV-2 Swab, 05/11/2021 MKTO Specimen Nasopharynx 3:03 AM CDT Source SARS CoV-2 Undetected Undetected 05/11/2021 MKTO RNA, TMA 3:03 AM CDT Comment: SARS-CoV-2 RNA absent. This result does not rule out COVID-19 in the patient, as the sensitivity of the test depends o n the timing of the specimen collection and the quality of the specim en. Result should be correlated with patient's history and clinical presentat ion. ----ADDITIONAL INFORMATION---- This molecular amplification test was pe rformed using the Aptima SARS-CoV-2 assay ([employer] on the [employer] tem under emergency use authorization (EUA) by the U.S. Food and Drug Administ heriberto. Fact sheets for this EUA assay can be fo und at the following links: For Healthcare Providers: https://www.fd a.gov/media/300507/download For Patients: https://www.fda.gov/media/ 662028/download Specimen Anatomical Collection Method Collection Time Receive d Time (Source) Location / / Volume Laterality Varies 05/10/2021 10:02 05/10/2021 9:18 (Nasopharynx) AM CDT PM CDT Lis Fitch M.D. LAB MICROBIOLOGY - GENERA L ORDERABLES Performing Organization Address City/State/[facility] Phon e Number [facility]- [address] [place] [address] [place] [address] [address] documented in this encounter Visit Diagnoses Diagnosis Preprocedural Lab Exam documented in this encounter Additional Health Concerns Infection Onset Date Last Indicated Resolved Time COVID19 Pending 05/10/2021 05/10/2021 05/11/2021 3:04 AM CDT documented as of this encounter
--- OUTSIDE RECORDS SUMMARY | 2021-12-03 11:39 | XMS_ITS | Encounter Summary ---
:1955 Author Organization [facility] Address [address] [place] [address] Care Team Providers Name Role Phone Unavailable Primary Care Provider Unavailable Reason for Visit Reason Comments Would like to RTN to See you Encounter Details Date Type Department Care Team Description 10/02/2020 Clinical Communication Division of Liseth Jerez Would like to RTN to Internal Medicine Horace Baumann See you in [place], [address] [place], [place] [address] [facility] [address] [place], [place] [phone] (Work) [phone] Social History Tobacco Use Types Packs/Day Years [...] or relatives? How often do you attend denominational or More than 4 times per year 05/09/2021 mu-ism services? Do you belong to any clubs or No 05/09/2021 organizations such as denominational groups, unions, fraternal or athletic groups, or [...] place to sleep or slept in a correction (including now)? Education Answer Date Recorded What is the highest level of school Master's degree (e.g., M A, MS, 02/27/2020 you have completed or the highest Melanie, MEd, RETARDER OPERATOR, KARLI) degree you have received? 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 - 10/07/2020 9:38 AM CDT SUBJECTIVE CHIEF COMPLAINT / REASON FOR CALL Would like to RTN to See you Information Discussed Mrs. Megan Carmichael called back from her mobile number wondering if she could have a return visit with Dr. Juárez. I let her know that, per Dr. Juárez and Consultative Medicine policy, since it has been 7 months since she last saw Dr. Juárez she will need to fill out a new appointment request form in order to be seen through [facility] again. I gave her the phone number to the Central Appointment Office and encouraged her to get a local primary care provider and follow-up with Dr. Juárez's recommendations locally. She has no further questions at this time and appreciates the call back. PLAN Disposition/Recommendation: self-care is appropriate at this time, patient encouraged to call back with questions and recommended continue engagement in self-management activities Information/Education: patient/caller able to teach back Caller agreeable to plan of care: yes The following references were used: nursing clinical judgement and provider Dr. Juárez Telephone Encounter - Bakari Juárez Jr., M.D. - 10/05/2020 11:50 PM CDT Please let patient know that as it has been more than 7 months since our last visit, per [facility] clinic policy a we do not do ongoing continuity of care. If she would like to be seen in [facility] again she would need to fill out a new appointment request form. I would strongly encourage her to establish with a primary care provider and complete all the thingswe had recommended 7 months ago. If after that primary care provider sees her and completes all of that evaluation her primary care provider has questions for me I would be happy to discuss with the primary care provider and answer questions the primary care provider has to assure a smooth transition. However unfortunately this point in time I cannot, per policy, offer her a follow-up appointment without established primary care and or a new appointment request form filled out and sent through Triage. Thank you Telephone Encounter - Norma Parson - 10/02/2020 2:38 PM CDT Pt. is calling today. She did not establish a local PCP. She has not done any of the follow up recommended from the discharge summary you did in February. She is wondering if she can come back to [place] and you would order the follow up tests recommended. I did share with her that she could try and get established with [facility] and they can order tests to be done here at [facility] if can't take care of it in [place]. She wanted me to check with you first. Urology at [place] is doing a follow up from their visit. Pt. did say she does not need to do the Derm follow up here as she has someone locally. Thank you Norma [phone] documented in this encounter Plan of Treatment Not on filedocumented as of this encounter Visit Diagnoses Not on filedocumented in this encounter
--- OUTSIDE RECORDS SUMMARY | 2021-12-03 11:39 | XMS_ITS | Encounter Summary ---
:1955 Author Organization [facility] Address [address] [place] [address] Care Team Providers Name Role Phone Unavailable Primary Care Provider Unavailable Reason for Visit Reason Comments Return Visit Appointment Request (Routine) - Closed Specialty Diagnoses / Procedures Referred By Contact Refer red To Contact General Internal Bakari Juárez Jr., Medicine M.D. [address] [place] [address] Referral ID Status Reason Start Date Expiration Date Visits Requ ested Visits Authorized [id number] Closed 02/29/2020 02/28/2021 1 1 Encounter Details Date Type Department Care Team Description 03/11/2020 Office Visit Division of Bakari Jreez Anemia P osthemorrhagic Internal Medicine jarred Baumann M.D. Acute (Blood Loss Anemia) [place], [place] [address] [place] [address] (Primary Dx) [address] [place] [phone] Social History Tobacco Use Types Packs/Day Years [...] More than 4 times per year 05/09/2021 sabianism services? Do you belong to any clubs [...] have completed or the highest Melanie, MEd, MIDDLEWARE ADMINISTRATOR, KARLI) degree you have received? 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 - 03/11/2020 4:00 PM CST Issues requiring primary care follow-up: 1. Repeat CBC with diff in 1 month to assure resolution of the acute blood loss anemia which occurred in the setting of her recent blood donation 2. Patient should have repeat skin exam in 6 months either locally with Dermatology or here at [facility] 3. Patient should follow-up with Pulmonary after she has been on her current regimen for at least 1 month 4. Repeat imaging of the kidney should be done in approximately [address] scan or renal ultrasound would both be reasonable. Urology here did recommend CT scan patient prefers to avoid contrast and would like to consider renal ultrasound. 5. Given her history of melanoma, a repeat CT in 3-6 months on the pulm nodules I am available to assist in the transition of care back to the excellent care being received locally, if as the primary care provider you questions about our evaluation or I can be of additional assistance in the next 90 days, please do not hesitate to reach out to me directly through the [facility] [place] rectifying operator at, identify yourself as the primary care provider of a mutual patient, and askfor Dr. Bakari Juárez in General Internal Medicine to be paged. Below is a summary of the evaluation here at [facility] ASSESSMENT / PLAN 1. Chronic asthma, uncontrolled 2. Numerous allergies (cat, with recent positive skin testing 3. Moderate obstruction with air trapping, normal DLCO 4. CT chest with mosaic attenuation, scattered endobronchial plugging, and small foci of unel-ym-zhgfvizmyagezxhjyf ?? Assessment and plan from Pul and Allergy notes are included/coped below with occasional edit by myself for brevity and or clarifications on procedures or tests that have been done since that note waswritten -symptoms and objective testing here are all consistent with uncontrolled asthma with a significant allergic component. - She has moderate obstruction on spirometry with FEV1 reduced to 46% predicted and with signs of hyperinflation both on PFTs and imaging. - has been managing with p.r.n. albuterol and using it only rarely. - ANCA's are negative, -Her absolute eosinophil count is currently 110 and the highest we have on record for her is 500 back in 2012 - start therapy with a short course of prednisone and MARY step 4 therapy with budesonide-formoteroland add on montelukast given the significant allergy component -. We can use the budesonide-formoterol for the reliever as well. -nurse education visits to ensure correct inhaler technique as well as peak flow meter education. -sputum studies for Gram stain and AFB stain and mycobacterial culture were ordered; she currently has no cough and is not producing sputum. - Her CT findings of micronodularity and scatter endobronchial plugging are mild and are consistent with asthma, especially with the concomitant mosaicism and air trapping; we have very low suspicion for any chronic infection including fungal o. -Moreover, there are no typical findings for allergic bronchopulmonary aspergillosis. - We can check an IgE level, but as she has been undertreated for so long, we should gauge her response to the current planned therapy before considering biologics etc. -There are a few tiny nodules seen, up to 4mm in greatest dimension. Given her history of melanoma, these can be followed up with a repeat CT in 3-6 months; otherwise she is a low risk patient for primary lung cancer. Abnormal Computed Tomography Chronic dyspnea and intermittent cough, likely due to asthma- She was seen by infectious disease to rule out chronic infection and their note is summarized below ?? -We discussed potential infectious etiologies for the findings on CT including more opportunistic infections such as endemic fungal infections or non tuberculosis mycobacteria. -She had sputum cultures performed this morning which are pending. ??-Overall given the chronicity of symptoms and minimal findings on chest CT, I do not think furthertesting for infectious etiologies would be of high yield. Primarily because if we were to identify an etiology such as endemic fungal infection, this would be considered a very mild infection and treatment would not be recommended. -Similarly, if her mycobacterial cultures were positive for an and MABEL would still be hesitant to treat this given her mild symptoms and rather would wait to see if she had significant improvement with her asthma treatment. -If her symptoms were to worsen in the future or if the repeat chest CT in three months show progressive inflammatory changes concerning for infection then we would recommend additional infectious etiology testing at that time including repeat sputum cultures as well as endemic fungal workup. History of T1a malignant melanoma, right lateral hip, Aris level III, 0.46 mm Breslow depth, treated with wide local excision 2017 Scaly pink plaques right shoulder and abdomen Assessment and plan from Dermatology note is included/copied below with occasional edit by myself for brevity and or clarifications on procedures or tests that have been done since that note was written In terms of the melanoma: -No evidence of recurrent disease to date. No adenopathy on examination. Encouraged skin cancer screening evaluations every 6-12 months going forward. Encouraged self-monitoring on a monthly basis. Encouraged sun protection, ubzx-xgy-vgaawsy sunscreen use. --Followup in 6 months for full body skin cancer screening In terms of the shoulder and abdomen lesions: -Positive MARQUISE today with spaghetti and meatball-like fungal elements consistent with probable tinea versicolor. Will start ketoconazole 2% cream twice daily to the affected sites for the next 2 weeks. If not completely resolved, would recommend consideration of starting her previously prescribed triamcinolone 0.1% ointment b.i.d. for 2-3 weeks. ?? Renal lesion Stable exophytic lesion at the lower pole of the right kidney which may represent a small hemorrhagic/proteinaceous cyst. Assessment and plan from Urology note is included/coped below with occasional edit by myself for brevity and or clarifications on procedures or tests that have been done since that note was written -Patient has a renal mass under 4 cm in size and therefore has a <1% risk of metastasis. -We discussed treatment options for the patient including active surveillance, partial nephrectomy, radical nephrectomy and percutaneous thermal ablation. -After discussing the merits and disadvantages of each approach, patient opts for active surveillance. Given the lack of change of size and chronicity of the lesion, this is a good approach. -given the stability they had recommended repeat imaging in 1 year, ideally with CT so the modalities would be the same however renal ultrasound be reasonable if patient prefers ?? Acute blood loss anemia- patient had recently donated 2 units of blood her hemoglobin here was in the mid 10 range which when I compare to her previous baseline does appear to be about 2 g down from previous. I discussed with her that I expect this is related to the acute donation of blood that she made in that it should likely normalize. Her history was reassuring as she was not having other signs or symptoms to suggest acute blood loss or hemolysis. I have advised her to have a repeat CBC in about1 month with her primary to make sure this normalizes. If it does not normalize then further evaluation can be undertaken at that time. The remainder of her evaluation laboratory rivera completed here was relatively unrevealing as her CBC showed a normal diff with normal platelets. She had normal inflammatory markers. Her urine was normal. The CT of her chest and abdomen and pelvis were unremarkable other than the renal lesion noted above and the mild changes which Pulmonary and Infectious Disease waiting on. ?? Bakari Juárez Jr., M.D. General Internal Medicine Consultative Medicine Clinic front desk lead internal number ([phone]) [facility] Internal pager :[phone] OLL ANALYST Bakari Juárez Jr., M.D. - 03/11/2020 4:00 PM CST Issues requiring primary care follow-up: 1. Repeat CBC with diff in 1 month to assure resolution of the acute blood loss anemia which occurred in the setting of her recent blood donation 2. Patient should have repeat skin exam in 6 months either locally with Dermatology or here at [facility] 3. Patient should follow-up with Pulmonary after she has been on her current regimen for at least 1 month 4. Repeat imaging of the kidney should be done in approximately [address] scan or renal ultrasound would both be reasonable. Urology here did recommend CT scan patient prefers to avoid contrast and would like to consider renal ultrasound. 5. Given her history of melanoma, a repeat CT in 3-6 months on the [facility] nodules I am available to assist in the transition of care back to the excellent care being received locally, if as the primary care provider you questions about our evaluation or I can be of additional assistance in the next 90 days, please do not hesitate to reach out to me directly through the [facility] rectifying operator at, identify yourself as the primary care provider of a mutual patient, and askfor Dr. Bakari Juárez in General Internal Medicine to be paged. Below is a summary of the evaluation here at [facility] ASSESSMENT / PLAN 1. Chronic asthma, uncontrolled 2. Numerous allergies (cat, with recent positive skin testing 3. Moderate obstruction with air trapping, normal DLCO 4. CT chest with mosaic attenuation, scattered endobronchial plugging, and small foci of vfof-lf-lxtvdgwakfqqystkzk ?? Assessment and plan from Pulm and Allergy notes are included/coped below with occasional edit by myself for brevity and or clarifications on procedures or tests that have been done since that note waswritten -symptoms and objective testing here are all consistent with uncontrolled asthma with a significant allergic component. - She has moderate obstruction on spirometry with FEV1 reduced to 46% predicted and with signs of hyperinflation both on PFTs and imaging. - has been managing with p.r.n. albuterol and using it only rarely. - ANCA's are negative, -Her absolute eosinophil count is currently 110 and the highest we have on record for her is 500 back in 2012 - start therapy with a short course of prednisone and MARY step 4 therapy with budesonide-formoteroland add on montelukast given the significant allergy component -. We can use the budesonide-formoterol for the reliever as well. -nurse education visits to ensure correct inhaler technique as well as peak flow meter education. -sputum studies for Gram stain and AFB stain and mycobacterial culture were ordered; she currently has no cough and is not producing sputum. - Her CT findings of micronodularity and scatter endobronchial plugging are mild and are consistent with asthma, especially with the concomitant mosaicism and air trapping; we have very low suspicion for any chronic infection including fungal o. -Moreover, there are no typical findings for allergic bronchopulmonary aspergillosis. - We can check an IgE level, but as she has been undertreated for so long, we should gauge her response to the current planned therapy before considering biologics etc. -There are a few tiny nodules seen, up to 4mm in greatest dimension. Given her history of melanoma, these can be followed up with a repeat CT in 3-6 months; otherwise she is a low risk patient for primary lung cancer. Abnormal Computed Tomography Chronic dyspnea and intermittent cough, likely due to asthma- She was seen by infectious disease to rule out chronic infection and their note is summarized below ?? -We discussed potential infectious etiologies for the findings on CT including more opportunistic infections such as endemic fungal infections or non tuberculosis mycobacteria. -She had sputum cultures performed this morning which are pending. ??-Overall given the chronicity of symptoms and minimal findings on chest CT, I do not think furthertesting for infectious etiologies would be of high yield. Primarily because if we were to identify an etiology such as endemic fungal infection, this would be considered a very mild infection and treatment would not be recommended. -Similarly, if her mycobacterial cultures were positive for an and MABEL would still be hesitant to treat this given her mild symptoms and rather would wait to see if she had significant improvement with her asthma treatment. -If her symptoms were to worsen in the future or if the repeat chest CT in three months show progressive inflammatory changes concerning for infection then we would recommend additional infectious etiology testing at that time including repeat sputum cultures as well as endemic fungal workup. History of T1a malignant melanoma, right lateral hip, Aris level III, 0.46 mm Breslow depth, treated with wide local excision 2017 Scaly pink plaques right shoulder and abdomen Assessment and plan from Dermatology note is included/copied below with occasional edit by myself for brevity and or clarifications on procedures or tests that have been done since that note was written In terms of the melanoma: -No evidence of recurrent disease to date. No adenopathy on examination. Encouraged skin cancer screening evaluations every 6-12 months going forward. Encouraged self-monitoring on a monthly basis. Encouraged sun protection, mwnn-gdj-zqwkqde sunscreen use. --Followup in 6 months for full body skin cancer screening In terms of the shoulder and abdomen lesions: -Positive MARQUISE today with spaghetti and meatball-like fungal elements consistent with probable tinea versicolor. Will start ketoconazole 2% cream twice daily to the affected sites for the next 2 weeks. If not completely resolved, would recommend consideration of starting her previously prescribed triamcinolone 0.1% ointment b.i.d. for 2-3 weeks. ?? Renal lesion Stable exophytic lesion at the lower pole of the right kidney which may represent a small hemorrhagic/proteinaceous cyst. Assessment and plan from Urology note is included/coped below with occasional edit by myself for brevity and or clarifications on procedures or tests that have been done since that note was written -Patient has a renal mass under 4 cm in size and therefore has a <1% risk of metastasis. -We discussed treatment options for the patient including active surveillance, partial nephrectomy, radical nephrectomy and percutaneous thermal ablation. -After discussing the merits and disadvantages of each approach, patient opts for active surveillance. Given the lack of change of size and chronicity of the lesion, this is a good approach. -given the stability they had recommended repeat imaging in 1 year, ideally with CT so the modalities would be the same however renal ultrasound be reasonable if patient prefers ?? Acute blood loss anemia- patient had recently donated 2 units of blood her hemoglobin here was in the mid 10 range which when I compare to her previous baseline does appear to be about 2 g down from previous. I discussed with her that I expect this is related to the acute donation of blood that she made in that it should likely normalize. Her history was reassuring as she was not having other signs or symptoms to suggest acute blood loss or hemolysis. I have advised her to have a repeat CBC in about1 month with her primary to make sure this normalizes. If it does not normalize then further evaluation can be undertaken at that time. The remainder of her evaluation laboratory rivera completed here was relatively unrevealing as her CBC showed a normal diff with normal platelets. She had normal inflammatory markers. Her urine was normal. The CT of her chest and abdomen and pelvis were unremarkable other than the renal lesion noted above and the mild changes which Pulmonary and Infectious Disease waiting on. ?? Bakari Juárez Jr., M.D. General Internal Medicine Consultative Medicine Clinic front desk lead internal number ([phone]) [facility] Internal pager :[phone] OLL ANALYST documented in this encounter Plan of Treatment Not on filedocumented as of this encounter Visit Diagnoses Diagnosis Anemia Posthemorrhagic Acute (Blood Loss Anemia) - Primary documented in this encounter
--- OUTSIDE RECORDS SUMMARY | 2021-12-03 11:39 | XMS_ITS | Encounter Summary ---
:1955 Author Organization [facility] Address [address] [place] [address] Care Team Providers Name Role Phone Unavailable Primary Care Provider Unavailable Reason for Referral Outpatient (Routine) - Authorized Specialty Diagnoses / Procedures Referred By Contact Refer red To Contact Pulmonary Medicine Raymond Harper M .D. [facility] [address], [address] [address] Referral ID Status Reason Start Date Expiration Date Visits V isits Requested Authorized [id number] Authorized 05/13/2021 05/13/2022 1 1 Reason for Visit Outpatient (Routine) - Closed Specialty Diagnoses / Procedures Referred By Contact Refer red To Contact Pulmonary Medicine Van Huerta M.D. [facility] Referral ID Status Reason Start Date Expiration Date Visits Requ ested Visits Authorized [id number] Closed 01/15/2021 01/15/2022 1 1 Encounter Details Date Type Department Care Team Description 05/13/2021 Office Visit Division of Pulmonary Raymond Harper a Moderate Medicine in Yunior Najera M.D. Persistent (HCC) [place] [address], (Primary Dx) [address] [facility] [address] [place] [phone] Social History Tobacco Use Types Packs/Day Years [...] More than 4 times per year 05/09/2021 jehovah's witness services? Do you belong to any clubs [...] have completed or the highest Melanie, MEd, CANCELLATION CLERK, KARLI) degree you have received? 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 - 05/13/2021 4:00 PM CDT SUBJECTIVE CHIEF COMPLAINT / REASON FOR VISIT Megan Carmichael is a 65 y.o. female who presented to the Pulmonary Clinic for follow-up on asthma. HISTORY OF PRESENT ILLNESS Megan Carmichael is a 65 y.o. female never smoker, with past medical history of asthma. She was last seen in the pulmonary department by Dr. Huerta on 01/15/2021. At that time, there was a plan to initiate Spiriva and follow-up in 3 months. In the interim, Ms. Carmichael had an overall improvement of her symptoms. She uses albuterol inhaler for rescue, at a rate of once a month. She does not have any nocturnal awakening from her asthma, nor does she have any limitation to her exercise capacity. She denied any cough, chest tightness, wheezing. She has been able to walk 2-2.5 miles a day. She noticed that her breathing is more difficult when she is talking and going up hill. Ms. Carmichael heard in February of 2021, and she thinks that some exposures at her work may have been related to worsening her asthma. In April of 2021, she underwent a colonoscopy with a vomiting episode during the procedure which was complicated by aspiration. She was treated with a course of prednisone and antibiotics, and has been consistently improving since then. However, she reports that this event has been a setback for her respiratory status. Ms. Carmichael was unable to obtain Spiriva secondary to cost. The following portions of the patient's history were reviewed and updated as appropriate: allergies,current medications, family history, medical history, social history, surgical history and problem list. OBJECTIVE VITAL SIGNS BP (!) 157/95 (BP Location: Right arm, Patient Position: Sitting) Pulse 84 Temp 36.3 ??C (Temporal) SpO2 98% PHYSICAL EXAMINATION General: Not in apparent pain or distress. HEENT: No pallor or jaundice. Neuro: Alert and orient x3. Chest: Clear to auscultation bilaterally Heart: Normal heart sounds. DIAGNOSTICS Labs and Investigations: Reviewed in epic. Most importantly, PFTs from today showed improvement compared to prior PFTs. ASSESSMENT / PLAN #1 Allergic asthma, currently well controlled with ICS-LABA and montelukast Ms. Carmichael has been doing well on ICS-LABA and montelukast, and her symptoms have been well controlled. Although she feels like the aspiration event that occurred earlier this month during a colonoscopy has set her back, she is already recovering and is working on improving her physical condition and exercise tolerance. I do not think that there is any need for any form of chest imaging at this time. Plan: - Given that her asthma is well controlled, I am inclined to maintain her on the current therapy. - Follow up in 1 year, for clinical assessment, PFTs, and exhale nitric oxide. If her asthma continues to be well controlled, we might consider discontinuation of montelukast. Raymond Harper PGY-6, Pulmonary and Critical Care Fellow Pager: [phone] documented in this encounter Plan of Treatment Scheduled Orders Name Type Priority Associated Diagnoses Order S chedule Pulmonary Function Tests PFT Routine Asthma Moderate Expected: 05/13/2022 Persistent (HCC) (Approximat e), Expires: 2022 PUL Exhaled Nitric Oxide PFT Routine Asthma Moderate Expected: 05/13/2022 Persistent (HCC) (Approximat e), Expires: 2022 Scheduled Referrals Name Type Priority [facility] Diagnoses [facility] Outpatient Referral Routine Ex pected: office visit 05/13/2022 (clinic) (Approximate), Expires: 08/13/2022 documented as of this encounter Visit Diagnoses Diagnosis Asthma Moderate Persistent (HCC) - Prima ry documented in this encounter
--- OUTSIDE RECORDS SUMMARY | 2021-12-03 11:39 | XMS_ITS | Encounter Summary ---
:1955 Author Organization [facility] Address [address] [place] [address] Care Team Providers Name Role Phone Unavailable Primary Care Provider Unavailable Reason for Referral MRI/CAT/PET Scan (Routine) - Closed Specialty Diagnoses / Procedures Referred By Contact Refer red To Contact Radiology Diagnoses Painful Total Joint Arthroplasty Initial (HCC) lAfredo De Souza M.D. [facility] Procedures MR Shoulder Right without IV Contrast [address] [place] [address] Referral ID Status Reason Start Date Expiration Date Visits Requ ested Visits Authorized [id number] Closed 05/13/2021 05/13/2022 1 1 Reason for Visit Outpatient (Routine) - Closed Specialty Diagnoses / Procedures Referred By Contact Refer red To Contact Orthopedic Surgery Misti Owens APRN, [facility] M.S.N. [address] [place] [address] Referral ID Status Reason Start Date Expiration Date Visits Requ ested Visits Authorized [id number] Closed 04/18/2021 04/18/2022 1 1 Encounter Details Date Type Department Care Team Description 05/13/2021 Office Visit Department of Alfredo De Souza To navin Joint Orthopedic Surgery jarred Stahl M.D. Arthroplasty Initial [place], [place] [address] [facility] ([facility]) [address] [place] [phone] Social History Tobacco Use Types Packs/Day Years [...] or relatives? How often do you attend hindu or More than 4 times per year 05/09/2021 advent services? Do you belong to any clubs or No 05/09/2021 organizations such as hindu groups, unions, fraternal or athletic groups, or [...] have completed or the highest Melanie, MEd, CERTIFIED REHABILITATION COUNSELOR, KARLI) degree you have received? 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 - 05/13/2021 1:40 PM CDT Images from the original note were not included. [facility] Rotator Cuff Problems and Their [...] lift. The rotator cuff has four muscles: ?? The supraspinatus runs over the top of the humeral head. ?? The subscapularis runs across the front of the humeral head. ?? The infraspinatus and teres minor run across [...] something is wrong with your rotator cuff. ?? You may have pain and weakness when you reach, push, pull or lift with your arm. You may have pain when you put on and take off your clothes. ?? You may notice you do not have your usual range of motion when you do activities that involve your arm. ?? You may feel pain on the outside of your shoulder even when you are not doing anything with your arm. ?? You may have ongoing, dull or throbbing [...] told otherwise by your health care provider: ?? Apply an ice pack for 10 to 15 minutes, two or three times a day. ?? Place the ice pack on top of your shirt or wrap it in a thin towel. Do not put the ice pack directly on your skin. Heat Heat, usually with a [...] care provider may recommend that you take [id number] pain relievers or anti-inflammatory medication. Some can [...] include one or more of the following: ?? Stretching and strengthening exercises. They can improve flexibility and strength of the muscles that surround your shoulder joint. For exercises to be of help, you need to follow the care plan and instructions your therapist gives you. ?? Manual therapy techniques, also known as shoulder joint mobilization. ?? Learning to apply kinesiology tape. ?? Tissue massage. ?? Ultrasound therapy. ?? Electrical stimulation. ?? Correct posture education. ?? Learning activity modifications. Injections Your health care [...] options your health care team considers include: ?? Arthroscopic surgery. ?? Open surgery. ?? Removal of damaged tissue. ?? Transfer of alternative tendons. ?? Shoulder joint replacement. Talk with your health [...] Follow these guidelines when doing these stretches. ?? Maintain a comfortable and constant stretch. ?? Breathe normally; do not hold your breath. ?? Hold each stretch 10 seconds. Then slowly return to the starting positon and relax. ?? Do each stretch 5-10 time(s) 3 time(s) a day. ?? Do each stretch for both shoulders if [...] the stretch again. Shoulder flexion while lying 1. Lie on your back on a firm, flat surface. Bend your knees so your feet are flat on the surface. 2. Clasp your hands together with your arms straight above you. See Figure 1. 3. Slowly bring your straight arms over your head until your hands are on or near the surface. 4. Do this stretch with a wand if your health care provider tells you to do so. Shoulder flexion while sitting (options 2) 1. Sit with your affected side next to a table. Place your forearm and hand with palm down on the table. Your elbow should be bent slightly. See Figure 2. 2. You may place a towel between your arm and the table. As you move your arm, the towel helps reduce friction between your arm and the table. 3. Slowly lean forward and slide your hand and forearm along the table. 4. Stop when you feel a gentle stretch in your shoulder. Shoulder external rotation - lying option 1. Bend your elbows at a 90-degree angle to hold the wand with your right hand on top of and your left hand under the wand. Rest your left elbow and upper arm on a folded towel. 2. Keeping your arms at your side, use your right arm and the wand to rotate your left arm outward. Shoulder external rotation - standing/sitting option (Figure 4b) 1. Bend your elbows at a 90-degree angle to hold the wand with your right hand on top of and your left hand under the wand. 2. Put a folded towel between your left elbow and your side. Your goal is to keep the towel there asyou do this exercise. 3. Keeping your elbows at your side, use your right arm and the wand to rotate your left arm outward. Internal shoulder rotation 1. Sit or stand to do this exercise. Keep your back straight as you do this exercise; do not lean forward. 2. Grasp a towel with the hand of your affected arm. Position your hand in the center of your back. 3. Use your other hand to reach over your unaffected shoulder to grasp the towel. See Figure 4. 4. Use your unaffected arm to pull the towel upward so your affected arm moves upward along the center of your back. Do this until you feel a gentle stretch in your shoulder. Sleeper stretch 1. Lie on your affected side with your elbow bent and arm at a 90-degree angle. 2. Place a rolled towel between your arm and the floor. 3. Use your other hand to grasp above your wrist. Slowly push your arm downward until you feel a gentle stretch in the back of your shoulder. See Figure 5. ?? You also can do the sleeper stretch while standing against a wall. Horizontal shoulder adduction 1. Sit or stand to do this exercise. Keep your back straight as you do this exercise. 2. Use the hand of your unaffected arm to cradle the elbow of your affected arm. See Figure 6. 3. Lift your affected arm to a comfortable height. 4. Pull your affected arm across your chest until you feel a gentle stretch in your shoulder. 5. If your health care provider tells you to do so, change the height of your affected arm to changethe area stretched. Shoulder Strengthening Exercises Using an Elastic Band For the following four exercises: ?? Relax your shoulders and maintain correct posture. ?? Breathe normally; do not hold your breath. ?? Do each exercise only within a comfortable range. ?? To make the resistance of the elastic band less difficult, lengthen the elastic band. To make theresistance of the elastic band more difficult, shorten the elastic band. ?? Hold the end position of the exercise for 8 seconds before slowly returning to the starting position. ?? Do each exercise 3 time(s) 2 time(s) a day. ?? Do these exercises for both shoulders unless told otherwise by your health care provider. Do each exercise slowly and gently as you were shown by your health care provider. An exercise should not cause new or increased pain. If it does, stop doing the exercise and contact a member of your health care team. Double arm row (Figure 13) 1. Tie the middle of the elastic band to a door handle or other sturdy object. Test it to ensure your safety. 2. Sit on a chair or exercise ball or stand facing the band or the cables of a row machine. 3. With your arms straight in front of you and your thumbs pointing upward, grasp the ends of the band or the handles of the cables. 4. Keep your back straight and your arms even as you do this exercise. 5. Using the same amount of force with both arms, squeeze your shoulder blades together as you evenly pull your elbows back and down to your sides. Shoulder extension using an elastic band (Figure 14) 1. Tie a large knot on one end of the elastic band. Put the knotted area of the band over a door. Close the door securely. 2. Hold the other end of the band with the hand of the arm you are exercising. Stand facing the doorabout two arms??? length away. 3. Keeping your elbow slightly bent and palm facing inward, extend your arm toward the door at a comfortable height no higher than your shoulder. 4. Pull the band down to your side. Shoulder internal rotation using an elastic band (Figure 15) 1. Tie one end of the elastic band around a door knob. Close the door securely. 2. Hold the other end of the band with the hand of the arm you are exercising. Stand with your side toward the door about two arms??? length away. Put a folded towel under the arm you are exercising. Your goal is to keep the towel there as you do this exercise. 3. Keeping your elbow at your side and bent at a 90-degree angle, move your hand toward the door. 4. Keeping your elbow at your side and bent at a 90-degree angle, pull the band to your stomach. Shoulder external rotation using an elastic band (Figure 16) 1. Tie one end of the elastic band around a door knob. Close the door securely. 2. Hold the other end of the band with the hand of the arm you are exercising. Stand so the arm you are not exercising is toward the door about an arm???s length away. 3. Put a folded towel under the arm you are exercising. Your goal is to keep the towel there as you do this exercise. 4. Keeping your elbow at your side and bent at a 90-degree angle, bring your palm to your stomach. 5. Keeping your elbow at your side and bent at a 90-degree angle, pull the band out to your side. Healthy Shoulder Care When your shoulder is feeling better, you can do many things to help keep it healthy and pain-free. Unless you are told otherwise, do the following healthy shoulder tips. ?? Follow the care plan and all of the instructions given to you by your health care team members. While it can be tempting to stop doing what works once you feel better, you can help prevent future problems by continuing to do what works well. ?? Before using your shoulder for tasks, activities and sports, stretch it to warm up the shoulder joint tissues. If you are not sure how to stretch your shoulder, use the stretching exercises in this material or talk with your physical or occupational therapist. ?? Listen to your body. When you feel even the slightest discomfort or pain, take time to figure outwhat is causing it. Then determine what you need to do to prevent the pain. ?? Do regular exercise that helps your entire body. ?? Get to and stay at a healthy weight. Being overweight puts more stress on the tissues around yourjoints. ?? Arrange your work area to fit your body. This can help you maintain correct posture when reachingand possibly lessen repetitive movements. ?? When you carry objects, keep them close to your body. Ask for help when you need it. ?? Eat nutritious food and drink enough water to give your body what it needs to work well for you. ?? If you smoke, stop for the health [...] always talk with your health care provider. ? 2016 [facility] [employer] [facility] [employer] ([employer]). All rights reserved. [id number] documented in this encounter Progress Notes Alfredo De Souza M.D. - 05/13/2021 1:40 PM CDT SUBJECTIVE CHIEF COMPLAINT/REASON FOR VISIT Right shoulder pain. HISTORY OF PRESENT ILLNESS Ms. Carmichael is a delightful 65-year-old who presents with about 4 years of ongoing right shoulder problems. She has ongoing pain in the right shoulder as well as lack of range of motion. She has undergone extensive management for this including physical therapy as well as cortisone injections a few years ago and a hyaluronic acid injection in February. This did not give her substantial or lasting pain relief. She has deltoid-based shoulder pain that radiates down the arm. It is worse with activities. It is worse with overhead motion, and she has lost motion over time. She is otherwise healthy. No history of diabetes or blood clots. She is left- hand dominant. OBJECTIVE PHYSICAL EXAMINATION General: Alert and oriented, no acute distress. Musculoskeletal: Her deltoid is contractile. She has forward elevation of about 30 degrees and external rotation of 20 degrees. She has pseudoparalysis. If you raise the arm overhead, she can just barely maintain it but not for long. She has grinding crepitus with range of motion. DIAGNOSTICS X-rays of the right shoulder were reviewed. They demonstrate severe glenohumeral arthritis without subluxation. It is an A2 glenoid. ASSESSMENT / PLAN #1 Right shoulder severe glenohumeral arthritis #2 Concern for right shoulder large rotator cuff tear She has worse range of motion and more weakness than would be anticipated. I discussed options and expectations. She would like to proceed with a reverse total shoulder arthroplasty. I think that this is reasonable. We will plan to get her scheduled at her convenience. All of her questions were answered today. We will see her back in preparation for this. I would like to get an MRI to evaluate her glenoid bone stock as well as look at her rotator cuff. Alfredo De Souza M.D. CT CT Job ID: [id number] CC: Misti Owens APRN, C.N.P., [place] [address] documented in this encounter Plan of Treatment Not on filedocumented as of this encounter Results MR Shoulder Right without [...] Diagnosis Painful Total Joint Arthroplasty Initial (HCC) Painful Total Joint Arthroplasty Initial (HCC) documented in this encounter
--- OUTSIDE RECORDS SUMMARY | 2021-12-03 11:39 | XMS_ITS | Encounter Summary ---
:1955 Author Organization [facility] Address [address] [place] [address] Care Team Providers Name Role Phone Unavailable Primary Care Provider Unavailable Encounter Details Date Type Department Care Team Description 10/02/2020 Clinical Communication Division of Liseth Jerez Internal Medicine in [place] Ba[place], [place] [address] [facility] [address] [place] [phone] Social History Tobacco Use Types Packs/Day Years [...] or relatives? How often do you attend yazidi or More than 4 times per year 05/09/2021 mandaen services? Do you belong to any clubs or No 05/09/2021 organizations such as yazidi groups, unions, fraternal or athletic groups, or [...] place to sleep or slept in a jail (including now)? Education Answer Date Recorded What is the highest level of school Master's degree (e.g., Reji Landry MS, 02/27/2020 you have completed or the highest Melanie, MEd, ACCOUNT MANAGEMENT ASSISTANT, KARLI) degree you have received? 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
--- OUTSIDE RECORDS SUMMARY | 2021-12-03 11:39 | XMS_ITS | Encounter Summary ---
:1955 Author Organization [facility] Address [address] [place] [address] Care Team Providers Name Role Phone Unavailable Primary Care Provider Unavailable Reason for Referral Outpatient (Routine) - Closed Specialty Diagnoses / Procedures Referred By Contact Refer red To Contact Pulmonary Medicine Antonieta Suarez M.D. [facility] Referral ID Status Reason Start Date Expiration Date Visits Requ ested Visits Authorized [id number] Closed 01/15/2021 01/15/2022 1 1 HOLOGICAL OPERATIONS Reason for Visit Appointment Request (Routine) - Closed Specialty Diagnoses / Procedures Referred By Contact Refer red To Contact Pulmonary Medicine Diagnoses Dyspnea Referral ID Status Reason Start Date Expiration Date Visits Requ ested Visits Authorized [id number] Closed 01/06/2021 01/06/2022 1 1 Encounter Details Date Type Department Care Team Description 01/15/2021 Office Visit Division of Pulmonary Antonieta Suarez, Asthma Chronic (HCC) (Primary Dx); Medicine in M.D. Asthma Moderate Persistent (HCC) [place], [place] [address] [place] [address] Social History Tobacco Use Types Packs/Day Years [...] More than 4 times per year 05/09/2021 anabaptist services? Do you belong to any clubs [...] have completed or the highest Melanie, MEd, STITCHER SPECIAL MACHINE, KARLI) degree you have received? Sex Assigned at Date Recorded Female 01/10/2021 2:57 AM PSYCHOLOGICAL OPERATIONS documented as of this encounter Last Filed Vital Signs Vital Sign Reading Time Taken Comments Blood Pressure 148/82 01/15/2021 4:18 PM PSYCHOLOGICAL OPERATIONS Pulse 78 01/15/2021 4:18 PM PSYCHOLOGICAL OPERATIONS Temperature 36.2 ??C (97.2 ??F) 01/15/2021 4:18 PM PSYCHOLOGICAL OPERATIONS Respiratory Rate - - Oxygen Saturation 96% 01/15/2021 4:18 PM PSYCHOLOGICAL OPERATIONS Inhaled Oxygen Concentration - - Weight 59.7 kg (131 lb 9.8 oz) 01/15/2021 4:18 PM PSYCHOLOGICAL OPERATIONS Height 158.9 cm (5' 2.56) 01/15/2021 4:18 PM PSYCHOLOGICAL OPERATIONS Body Mass Index 23.64 01/15/2021 4:18 PM PSYCHOLOGICAL OPERATIONS documented in this encounter Progress Notes Antonieta Suarez M.D. - 01/15/2021 4:30 PM CST SUBJECTIVE Ms. Carmichael is a 65-year-old female with moderate persistent asthma presenting to Pulmonary Clinic for follow-up She was most recently seen in Pulmonary Clinic in February 2020 for evaluation, at which time she wasnoted to have FEV1 46%, IgE levels of 185. She was started on Symbicort, Singulair, and Flonase at the time that visit. Subsequently, she has followed up with outside pulmonary medicine most recently 12/25/2020, at which time she had FEV1 of 52% without significant bronchodilator reversibility. Also, recently she completed a 4-5 week prednisone taper that did provide some improvement in her asthma symptoms, with benefits reportedly weaning at lower doses. Her most recent exhaled nitric oxide at outside facility from October 2020 was normal at 27. Ms. Carmichael presents with her , who helps provide collateral history. She states that since her last visit, she has continued to have symptoms of shortness of breath and wheezing. She doeshave shortness of breath on a near daily basis. She did attempt to return to pulmonary clinic sooner, but was unable to get in, and therefore established with a pulmonary provider closer to the [facility]. Her Symbicort was changed to AirDuo 232-14mcg. She continues to take albuterol, though only uses it 2-3 times per month. She does find the albuterol helpful when she takes it. During our visit, wediscussed again her typical symptom triggers, which include spring and fall seasons, humid conditions, smoke, cigarette smoke, cats, dogs, mold. She does reiterate that her symptoms are worse at work, and better when she is away from work. 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 She does also affirm seasonal rhinitis on review of systems for which she will take Zyrtec. She states that one of her questions during today's visit is whether not she would benefit from biopsy to assess for alternative diagnosis, which was suggested as a possibility by her outside french teacher. Answers for HPI/ROS submitted by the patient on 01/10/2021 No general issues: Yes No eye issues: Yes No ENT issues: Yes No heart issues: Yes Shortness of breath: Yes Coughing up mucus (phlegm): Yes Dry cough: Yes Difficulty swallowing: Yes Constipation: Yes Muscle pain/stiffness: Yes Pain or stiffness in the joints: Yes No skin issues: Yes Headache: Yes No mental health issues: Yes No blood/lymph issues: Yes No urinary/reproductive issues: Yes OBJECTIVE Blood pressure 148/82, pulse 78, temperature 36.2 ??C, temperature source Temporal, height 158.9 cm,weight 59.7 kg, SpO2 96 %. Body mass index is 23.64 kg/m??. GENERAL: Well-developed, well-nourished. No acute distress. HEENT: Pupils equal round reactive to light. No scleral icterus. CV: Normal rate and regular rhythm. Normal S1 and S2. Grade 1 of 6 systolic ejection murmur best heard at right upper sternal border. No lower extremity edema. LUNGS: Clear to auscultation bilaterally. No respiratory distress or accessory muscle use. GI: Soft, non-tender, non-distended. No rebound or guarding. Normal bowel sounds. NEURO: Alert, oriented x 3. No dysarthria or aphasia. No gross facial asymmetry. Answers all questions appropriately. SKIN: Warm, dry. ASSESSMENT / PLAN 1. Moderate persistent asthma Ms. Carmichael returns today to follow-up on her moderate persistent asthma. In review of her case again today, including outside pulmonary function testing and CT scan results, it is felt that herhistory is still most suggestive of asthma. She previously has had elevated allergic markers, with significant bronchodilator reversibility, and has notable typical asthma triggers including environmental allergens and smoke. It is suspected that her asthma is particularly worsened by her current occupational exposures, fortunately she has a tentative chcf date of February 24, 2021, after which time hopefully her symptoms will improve given that she notes current benefit when she is away from work. In review of her recent CT scan, we do not see significant evidence of hyperinflation and mosaicattenuation to suggest constrictive bronchiolitis that would benefit from biopsy diagnosis at this time when taken in conjunction with her history noted above. In the interim, we will plan to step up her therapy with prescription of Spiriva, however plan to reassess in 3 months. This will be approximately 8 weeks after she is removed from her workplace exposures, at which time we will follow-up with clinic visit to assess symptoms and pulmonary function testing. She also did inquire about any current clinical trials in asthma at [facility]. I emailed her contact information to our one current active trial for potential qualification. This patient was discussed with supervising skin care consultant, Dr. Soto. Do not hesitate to reach out with any further questions or concerns. HOLOGICAL OPERATIONS documented in this encounter Miscellaneous Notes Addendum Note - Antonieta Suarez M.D. - 01/15/2021 4:30 PM PSYCHOLOGICAL OPERATIONS Addended by: ANTONIETA SUAREZ on: 01/16/2021 02:40 PM Modules accepted: Orders HOLOGICAL OPERATIONS documented in this encounter Plan of Treatment Scheduled Referrals Name Type Priority Associated Diagnoses Order S [facility] Pulmonary Medicine Outpatient Referral Routine Ex pected: office visit 04/15/2021 (clinic) (Approximate), Expires: 04/15/2022 documented as of this encounter Results Pulmonary Function Tests (05/13/2021 2:55 PM CDT) Analysis Performed At Patho logist Time Signature VC MAX POST 2.60 L 05/13/2021 [facility] 5:14 PM CDT SUITE PostFVC 2.60 L 05/13/2021 [facility] 5:14 PM CDT SUITE PostFEV1 1.37 L 05/13/2021 [facility] 5:14 PM CDT SUITE FEV1/FVC POST 52.69 % 05/13/2021 [facility] 5:14 PM CDT SUITE FEF 25-75 % 0.52 L/s 05/13/2021 [facility] 5:14 PM CDT SUITE PEF POST 4.92 L/s 05/13/2021 [facility] 5:14 PM CDT SUITE FET POST 15.11 sec 05/13/2021 [facility] 5:14 PM CDT SUITE DLCO SINGLE 16.39 ml/(min*mm 05/13/2021 [facility] BREATH POST Hg) 5:[address] VA SINGLE 3.94 L 05/13/2021 [facility]ATH POST 5:14 PM CDT SUITE D8CaeJnzs 99.00 % 05/13/2021 [facility] 5:14 PM CDT SUITE PulseRest 84.00 1/min 05/13/2021 [facility] 5:14 PM CDT SUITE I8YrqZzfe 96.00 % 05/13/2021 [facility] 5:14 PM CDT SUITE PulseExer 120.00 1/min 05/13/2021 [facility] 5:14 PM CDT SUITE EXER TIME 3.00 min 05/13/2021 [facility] 5:14 PM CDT SUITE STEP HEIGHT 9.00 Inch 05/13/2021 [facility] PRE 5:14 PM CDT SUITE TLC POST 4.92 L 05/13/2021 [facility] 5:14 PM CDT SUITE VC POST 2.54 L 05/13/2021 [facility] 5:14 PM CDT SUITE FRCPLETH POST 3.03 L 05/13/2021 [facility] 5:14 PM CDT SUITE RV 2.38 L 05/13/2021 [facility] 5:14 PM CDT SUITE RV % TLC POST 48.43 % 05/13/2021 [facility] 5:14 PM CDT SUITE VC MAX PRE 2.68 L 05/13/2021 [facility] 5:14 PM CDT SUITE FVC 2.68 L 05/13/2021 [facility] 5:14 PM CDT SUITE FEV1 1.28 L 05/13/2021 [facility] 5:14 PM CDT SUITE FEV1/FVC 47.73 % 05/13/2021 [facility] 5:14 PM CDT SUITE YHM04-64% 0.47 L/s 05/13/2021 [facility] 5:14 PM CDT SUITE PEF PRE 5.06 L/s 05/13/2021 [facility] 5:14 PM CDT SUITE FET PRE 14.30 sec 05/13/2021 [facility] PM CDT SUITE SUBSTANCE POST Albuterol 05/13/2021 [facility] 5:14 PM CDT SUITE DOSE POST 2 Puff 05/13/2021 [facility] 5:14 PM CDT SUITE % PRED VC MAX 93 % % 05/13/2021 [facility] 5:14 PM CDT SUITE FVC% 93 % % 05/13/2021 [facility] 5:14 PM CDT SUITE FEV1% 56 % % 05/13/2021 [facility] 5:14 PM CDT SUITE % PRED 61 % % 05/13/2021 [facility] FEV1/FVC 5:14 PM CDT SUITE % PRED FEF 23 % % 05/13/2021 [facility] 25-75% 5:14 PM CDT SUITE % PRED PEF 92 % % 05/13/2021 [facility] 5:14 PM CDT SUITE PRED TLC 4.77 05/13/2021 [facility] 5:14 PM CDT SUITE PRED RV 1.94 05/13/2021 [facility] 5:14 PM CDT SUITE PRED VC MAX 2.89 05/13/2021 [facility] 5:14 PM CDT SUITE PRED FVC 2.89 05/13/2021 [facility] 5:14 PM CDT SUITE PRED FEV 1 2.26 05/13/2021 [facility] 5:14 PM CDT SUITE PRED FEV1/FVC 78.8 05/13/2021 [facility] 5:14 PM CDT SUITE PRED FEF 2.00 05/13/2021 [facility] 25-75% 5:14 PM CDT SUITE PRED PEF 5.5 05/13/2021 [facility] 5:[address] PRED DLCO 19.1 05/13/2021 [facility] 5:14 PM CDT SUITE Specimen (Source) Anatomical Collection Method Collection Time Re ceived Time Location / / Volume Laterality 05/13/2021 2:55 PM CDT Narrative This result has an attachment that is no t available. Antonieta Suarez M.D. PFT ORDERABLES Performing Organization Address City/State/ZIP Code Phon e Number [facility] [address] [facility] [facility] SU[address] NA documented in this encounter Visit Diagnoses Diagnosis Asthma Chronic (HCC) - Primary Asthma Moderate Persistent (HCC) documented in this encounter
--- OUTSIDE RECORDS SUMMARY | 2021-12-03 11:39 | XMS_ITS | Encounter Summary ---
:1955 Author Organization [facility] Address [address] [place] [address] Care Team Providers Name Role Phone Unavailable Primary Care Provider Unavailable Encounter Details Date Type Department Care Team Description 03/07/2020 Hospital Encounter Department of Bakari Juárez Abnormal Computed Laboratory Medicine Horace Baumann Tomography and Pathology, [address] [facility] in [place], [place] [address] [place] [address] [place], [place] (Work) [phone] Social History Tobacco Use Types Packs/Day Years [...] or relatives? How often do you attend gnosticism or More than 4 times per year 05/09/2021 christianity services? Do you belong to any clubs or No 05/09/2021 organizations such as gnosticism groups, unions, fraternal or athletic groups, or [...] have completed or the highest Melanie, MEd, CLINICAL EDUCATION SPECIALIST, KARLI) degree you have received? Sex Assigned at Date Recorded Female 01/10/2021 2:57 AM LOGISTICS ENGINEER documented as of this encounter Medications [...] Associated Comments Diagnosis MYCOBACTERIAL CULTURE, Routine 03/11/2020 12:04 Abnormal Compu melina Results for this V PM LOGISTICS ENGINEER Tomography procedure are i n the results section. ACID FAST SMEAR FOR Routine 03/11/2020 12:04 Resu lts for this MYCOBACTERIUM PM LOGISTICS ENGINEER procedure are in the results section. documented in this encounter Results Acid Fast Smear For Mycobacterium (03/11/2020 12:04 PM LOGISTICS ENGINEER) Nuovo Wind Method Time Signature Acid Fast Smear Negative. 03/11/2020 DTL For Mycobacterium 10:56 PM LOGISTICS ENGINEER Specimen Anatomical Collection Method Collection Time Receive d Time (Source) Location / / Volume Laterality Sputum 03/11/2020 12:04 03/11/2020 PM LOGISTICS ENGINEER 12:04 PM LOGISTICS ENGINEER Comment: Specimen Source Site: Sputum Bakari Juárez Jr., M.D. LAB MICROBIOLOGY - GENERAL O SEMAJ Performing Organization Address City/State/ZIP Code Phon e Number [facility] - [address] [place] [address] [facility] Mycobacterial Culture (03/11/2020 12:04 PM LOGISTICS ENGINEER) Nuovo Wind Method Time Signature Mycobacterial No growth 04/22/2020 DTL Culture after 42 1:01 PM LOGISTICS ENGINEER days of incubation . Specimen Anatomical Collection Method Collection Time Receive d Time (Source) Location / / Volume Laterality Sputum (Sputum) 03/11/2020 12:04 03/11/19 21 PM LOGISTICS ENGINEER 12:04 PM LOGISTICS ENGINEER Comment: Specimen Source Site: Sputum Bakari Juárez Jr., M.D. LAB MICROBIOLOGY - GENERAL [facility] Performing Organization Address City/[facility] Code Phon e Number [facility] - [address] [place], [place] [address] [place], [place] [id number] [place] [address] [facility] documented in this encounter Visit Diagnoses Diagnosis Abnormal Computed Tomography documented in this encounter
--- OUTSIDE RECORDS SUMMARY | 2021-12-03 11:39 | XMS_ITS | Encounter Summary ---
:1955 Author Organization [facility] Address [address] [place] [address] Care Team Providers Name Role Phone Unavailable Primary Care Provider Unavailable Encounter Details Date Type Department Care Team Description 05/12/2021 Clinical Communication Department of Alfredo De Souza Orthopedic Surgery jarred Stahl M.D. [place], [place] [address] [facility] [address] [place] [address] [phone] Social History Tobacco Use Types Packs/Day Years [...] 05/09/2021 organizations such as spiritism groups, unions, fraternal or athletic groups, or [...] have completed or the highest Melanie, MEd, TORSION SPRING COILING MACHINE SETTER, KARLI) degree you have received? Sex Assigned at Date Recorded Female 01/10/2021 2:57 AM ORACLE DBA documented as of this encounter Miscellaneous Notes Telephone Encounter - Nunu Nye - 05/12/2021 11:23 AM CDT Patient is wondering if it would be documented in this encounter Plan of Treatment Not on filedocumented as of this encounter Visit Diagnoses Not on filedocumented in this encounter
--- OUTSIDE RECORDS SUMMARY | 2021-12-03 11:39 | XMS_ITS | Encounter Summary ---
:1955 Author Organization [facility] Address [address] [place] [address] Care Team Providers Name Role Phone Unavailable Primary Care Provider Unavailable Reason for Referral MRI/CAT/PET Scan (Routine) - Authorized Specialty Diagnoses / Procedures Referred By Contact Refer red To Contact Radiology Diagnoses Pain Shoulder Right Misti Owens APRN, [facility] Procedures CT Shoulder Right without IV Contrast C.N.P., M.S.N. [address] [place] [address] Referral ID Status Reason Start Date Expiration Date Visits V isits Requested Authorized [id number] Authorized 04/18/2021 04/18/2022 1 1 utpatient (Routine) - Closed Specialty Diagnoses / Procedures Referred By Contact Refer red To Contact Orthopedic Surgery Misti Owens APRN, [facility] C.N.P., M.S.N. [address] [place] [address] Referral ID Status Reason Start Date Expiration Date Visits Requ ested Visits Authorized [id number] Closed 04/18/2021 04/18/2022 1 1 LER HELPER Encounter Details Date Type Department Care Team Description 04/18/2021 Orders Only Department of Misti Owens Pain Shou lder Right Orthopedic Surgery in [place], [place]uylerN.Celest[place], (Prim benedict Dx) [place], [place] M.S.N. [address] [facility] [address] [place] [address] [phone] Social History Tobacco Use Types Packs/Day Years [...] or relatives? How often do you attend yazidism or More than 4 times per year 05/09/2021 jainism services? Do you belong to any clubs or No 05/09/2021 organizations such as yazidism groups, unions, fraternal or athletic groups, or [...] have completed or the highest Melanie, MEd, CATERER'S AIDE, KARLI) degree you have received? Sex Assigned at Date Recorded Female 01/10/2021 2:57 AM PICKLER HELPER documented as of this encounter Plan of Treatment Scheduled Orders Name Type Priority Associated Diagnoses Order S chedule CT Shoulder Right Imaging RAD - Routine (most Pain Shoulder Ri ght Expected: without IV Contrast inpatients and all outpatients) (Approximate), Expires: 04/18/2022 Scheduled Referrals Name Type Priority Associated Order Schedule Diagnoses Orthopedic Surgery Outpatient Referral Routine Ex pected: office visit 04/18/2021 (clinic) (Approximate), Expires: 07/19/2022 documented as of this encounter Visit Diagnoses Diagnosis Pain Shoulder Right - Primary documented in this encounter
--- OUTSIDE RECORDS SUMMARY | 2021-12-03 11:39 | XMS_ITS | Encounter Summary ---
:1955 Author Organization [facility] Address [address] [place] [address] Care Team Providers Name Role Phone Unavailable Primary Care Provider Unavailable Reason for Referral Outpatient (Routine) - Closed Specialty Diagnoses / Procedures Referred By Contact Refer red To Contact Diagnoses Dyspnea On Exertion Bakari Juárez Jr., M.D. [facility] Procedures Cardiopulmonary (VO2) Exercise Test [address] [place] [address] Referral ID Status Reason Start Date Expiration Date Visits Requ ested Visits Authorized [id number] Closed 02/29/2020 02/28/2021 1 1 CASE MAKER Reason for Visit Outpatient (Routine) - Closed Specialty Diagnoses / Procedures Referred By Contact Refer red To Contact Diagnoses Dyspnea On Exertion Bakari Juárez Jr., M.D. [facility] Procedures Cardiopulmonary (VO2) Exercise Test [address] [place] [address] Referral ID Status Reason Start Date Expiration Date Visits Requ ested Visits Authorized [id number] Closed 02/29/2020 02/28/2021 1 1 Encounter Details Date Type Department Care Team Description 03/07/2020 Hospital Encounter Department of Bakari Juárez Dyspnea On Exertion Cardiovascular Diseases Claudy Baumann in [facility] [address] [place] [address] [phone] Social History Tobacco Use Types Packs/Day Years [...] or relatives? How often do you attend protestant or More than 4 times per year 05/09/2021 caodaism services? Do you belong to any clubs or No 05/09/2021 organizations such as protestant groups, unions, fraternal or athletic groups, or [...] have completed or the highest Melanie, MEd, WORSHIP PASTOR, KARLI) degree you have received? Sex Assigned at Date Recorded Female 01/10/2021 2:57 AM SHOWCASE MAKER documented as of this encounter Medications at [...] tablet by 0 COMPLEX ORAL) mouth daily. predniSONE (DELTASONE) Take 3 tablets (30 mg 15 tablet 0 03/12/2020 10 mg tablet total) by mouth daily for 5 days. budesonide-formoteroL Inhale 2 puffs 2 1 Inhaler 11 03/07/19 21 01/15/2021 (SYMBICORT) 160-4.5 (two) times a day. mcg/actuation inhaler Rinse mouth with water after use to reduce aftertaste and incidence of candidiasis. Do not swallow. cholecalciferol, vitamin Take 2,500 Units by 0 07/09/2021 D3, (VITAMIN D3 ORAL) mouth daily. ketoconazole (NIZORAL) 2 Apply 1 application 15 g 1 05/12/2021 % cream topically 2 (two) times a day. montelukast (SINGULAIR) Take 1 tablet (10 mg 30 tablet 11 11/11/2020 10 mg tablet total) by mouth at bedtime. tretinoin (RETIN-A) Apply 1 application 0 05/12/2021 0.025 % cream topically as needed. Ventolin HFA inhaler Inhale 2 puffs as 0 01/27/20 20 01/15/2021 needed. documented as of this encounter Plan of Treatment Not on filedocumented as of this encounter Procedures Procedure Name Priority Date/Time Associated Comments Diagnosis CARDIOPULMONARY (VO2) Routine 03/07/2020 2:41 Dyspnea On Res ults for this EXERCISE TEST PM SHOWCASE MAKER Exertion procedure are in the results section. documented in this encounter Results CARDIOPULMONARY (VO2) EXERCISE TEST (03/07/2020 2:41 PM SHOWCASE MAKER) Specimen (Source) Anatomical Collection Method Collection Time Re ceived Time Location / / Volume Laterality 03/07/2020 1:52 PM SHOWCASE MAKER Narrative [facility] MERGE - 03/07/2020 3:39 PM SHOWCASE MAKER This result has an attachment that is no t available. See PDF For Result Procedure Note Derik Salazar M.D. - 03/07/2020For matting of this note might be different from the original. See PDF For Result Bakari Juárez Jr., M.D. CV STRESS PROCEDURES Performing Organization Address City/State/ZIP Code Phon e Number CV MERGE CV MERGE NA documented in this encounter Visit Diagnoses Diagnosis Dyspnea On Exertion documented in this encounter
--- OUTSIDE RECORDS SUMMARY | 2021-12-03 11:39 | XMS_ITS | Encounter Summary ---
:1955 Author Organization [facility] Address [address] [place] [address] Care Team Providers Name Role Phone Marquita Baumann M.D., Bakari Primary Care Provider Reason for Referral MRI/CAT/PET Scan (Routine) - Closed Specialty Diagnoses / Procedures Referred By Contact Refer red To Contact Radiology Diagnoses Lesion Kidney Gracy Quiroz, [facility] Procedures CT Abdomen Pelvis with IV Contrast CT Abdomen Pelvis without and with IV Contrast SD CT ABD&PELVIS W CNTRST Dane, M.S. [address] [place] [address] Referral ID Status Reason Start Date Expiration Date Visits Requ ested Visits Authorized [id number] Closed 03/13/2020 03/13/2022 1 1 utpatient (Routine) - Closed Specialty Diagnoses / Procedures Referred By Contact Refer red To Contact Urology Gracy Quiroz P .A.-C., M.S. [facility] [address] [place] [address] Referral ID Status Reason Start Date Expiration Date Visits Requ ested Visits Authorized [id number] Closed 03/13/2020 03/13/2021 1 1 NOL QUALITY LEADER Reason for Visit Outpatient (Routine) - Closed Specialty Diagnoses / Procedures Referred By Contact Refer red To Contact Urology Diagnoses Cyst Renal Bakari Juárez Jr., M.D. [facility] [address] [place] [phone] Referral ID Status Reason Start Date Expiration Date Visits Requ ested Visits Authorized [id number] Closed 02/12/2020 02/11/2021 1 1 Encounter Details Date Type Department Care Team Description 03/07/2020 Comprehensive Visit Department of Ham Naylor Lesi on Kidney (Primary Dx); Urology in M.DMima Incontinence Urinary Stress Female [facility], [address] [place] [address] [place] [phone] [place], [place] [phone] (Work) [phone] Social History Tobacco Use Types Packs/Day Years [...] or relatives? How often do you attend sikhism or More than 4 times per year 05/09/2021 shinto services? Do you belong to any clubs or No 05/09/2021 organizations such as sikhism groups, unions, fraternal or athletic groups, or [...] have completed or the highest Melanie, MEd, LICENSED NUCLEAR CONTROL ROOM OPERATOR, KARLI) degree you have received? Sex Assigned at Date Recorded Female 01/10/2021 2:57 AM ETHANOL QUALITY LEADER documented as of this encounter Consult Notes Ham Naylor M.D. - 03/07/2020 1:30 PM CST This is a supervisory note on Ms. Carmichael. Please refer to Miss Gracy Quiroz's note. In summary, Ms. Carmichael is a 64 y.o. female referred for evaluation of renal mass. Patient was seen and discussed with me. Patient has a renal mass under 4 cm in size and therefore has a <1% risk of metastasis. We discussed treatment options for the patient including active surveillance, partial nephrectomy, radical nephrectomy and percutaneous thermal ablation. After discussing the merits and disadvantages of each approach, patient opts for active surveillance. Given the lack of change of size and chronicity of the lesion, this is a good approach. I agree with assessment and plan. NOL QUALITY LEADER Gracy Quiroz P.A.-C., M.S. - 03/07/2020 1:30 PM CST SUBJECTIVE REQUESTING PROVIDER Bakari Juárez Jr., M.D. REASON FOR CONSULT Patient seen on Dr. Naylor's calendar Renal lesion HISTORY OF PRESENT ILLNESS Mrs. Carmichael is a very pleasant 64-year-old female, who presents today for review and further evaluation of a right lower pole renal lesion. Patient has known about this for some time. It was noted on imaging in 2012. It was noted that it has had a slight increase in density since the imaging onJu2012. Patient had a ultrasound on February 05, 2016 which noted that this renal lesion measured 1.1 cm. It was indeterminate, but it was favored to be solid. She had a MRI in 2013 which noted that the mass was equivocal as to whether it was solid or cystic. It is new since 2004. It has been present on imaging since 2010. Patient denies any hematuria, dysuria, or flank pain. She will get a urinary tract infection approximately once per year. She used to get these much more often. Many years ago she was getting annual cystoscopy with urethral dilatation for her recurring urinary tract infections. Patient has also undergone acupuncture, which she feels has helped her urinary tract infections. She endorses some constipation. She has not been doing Kegel's. She endorses some stress incontinence. Patient has known asthma and is scheduled to see Pulmonary later today. She also has a history of melanoma that was diagnosed in 2016 with Aris level 3. This was treated with a wide excision. Patient has undergone hysterectomy, D & C, and right inguinal hernia repair. No family history of kidney cancer. Patient has never smoked. She denies any significant chemical exposure. Most recent creatinine 0.66 with EGFR greater than 90. Patient denies any current nausea, vomiting, fevers, chills, chest pain, unexplained weight loss, bone pain, or changes in appetite. She endorses some shortness of breath, but this is attributed to herasthma. The following portions of the patient's history were reviewed and updated as appropriate: allergies,current medications, family history, medical history, social history, surgical history and problem list. REVIEW OF SYSTEMS Constitutional: Negative for fever, loss of appetite and weight loss of more than 10 pounds. Skin: Positive for skin rash. Respiratory: Positive for dyspnea. Cardiovascular: Negative for chest pain, pressure or tightness. Gastrointestinal: Positive for constipation. Negative for nausea and vomiting. Genitourinary: Negative for pain with urination and hematuria. Hematologic: Negative for bruises or bleeds easily. Musculoskeletal: Negative for back pain. Neurological: Positive for headaches. Psychiatric/Behavioral: Negative for sleep disturbance. The following systems were negative: Eyes, ENT Per HPI. Patient Active Problem List Diagnosis ??? Hypertension ??? Asthma Moderate Persistent (HCC) ??? Melanoma Of Skin Cancer Personal History ??? Rhinitis Allergic Past Medical History: Diagnosis Date ??? Asthma NOS 09/1969 ??? Cataract 2019 ??? Concussion Loss Of Consciousness Unspecified Duration Initial 07/2002 ??? Gastroesophageal Reflux Disease NOS 1991 ??? Hypertension NOS 09/2013 ??? Melanoma Skin (HCC) 2016 ??? Osteopenia 2017 ??? Other Injury Of Unspecified Body Region 03/2016 Fractured right wrist-slipped on ice ??? Pneumonia 12/1971 Past Surgical History: Procedure Laterality Date ??? DILATATION AND CURETTAGE 1983 Post miscarriage ? ? HERNIA REPAIR 2003 & 2008 ??? HYSTERECTOMY 2007 ??? OTHER CONVERTED SHX (SEE COMMENT) N/A 10/14/2010 >Extraperitoneal laparoscopic-assisted hernia repair (Dictated by Dr. Landaverde). ??? OTHER CONVERTED SHX (SEE COMMENT) N/A 10/13/2005 >Right Mansoor's ligament repair with Prolene mesh. Social History: Patient is . She denies any smoking history. Family History: Patient notes family history of breast cancer in her maternal grandmother and ovarian cancer in her mother. Her paternal aunt had uterine cancer. She has a son with a history of testicular cancer. OBJECTIVE PHYSICAL EXAM Constitutional: She is oriented to person, place, and time. She appears well- developed and well-nourished. No distress. HENT: Head: Normocephalic. Eyes: No scleral icterus. Neck: Normal range of motion. Cardiovascular: She exhibits no edema. Abdominal: Abdomen appears normal. Abdomen does not display distension. Musculoskeletal: Normal gait noted with ambulation. Neurological: She is alert and oriented to person, place, and time. Psychiatric: She has a normal mood and affect. Her behavior is normal. LABORATORY Sodium 137, potassium 4.0, chloride 104, bicarbonate 29, BUN 12, creatinine 0.66 with EGFR of greater than 90. Urinalysis is normal with normal urine microscopy. IMAGING I personally reviewed the images. Ct Chest With Iv Contrast Result Date: 02/29/2020 Narrative: EXAM: CT CHEST WITH IV CONTRAST COMPARISON: No prior CT chest available at the time of dictation. FINDINGS: Small focus of tree-in-bud micronodularity in the right upper lobe (series 3 circaimage 140). Slight additional ill-defined micronodularity in the apices. Focal slight clustered micronodularity in the superior segment left lower lobe (image 262). Solid 4 mm lateral right middle lobenodule (image 332). Additional scattered tiny solid pulmonary nodules (for example, right lower lobeimages 306, 400; right upper lobe image 107; left upper lobe images 81, 89; left lower lobe image 294 posteriorly). Mild bilateral mosaic attenuation. Mild scattered peripheral endobronchial plugging. No bronchiectasis. Mild scattered linear atelectasis and/or scarring in the lung bases. Mild biapicalscarring. No thoracic lymphadenopathy. No effusions. Tiny bilateral fat-containing Bochdalek hernias. Mild scattered atherosclerotic arterial calcifications including coronary arteries. Mild aortic valve calcification. Small esophageal hiatal hernia. Advanced degenerative change bilateral shoulders with small ossified body posteriorly on the right. Mild degenerative change upper thoracic spine. This e xamination was performed in conjunction with a CT of the abdomen, which will be reported separately. Impression: 1. Small foci of tree-in-bud and clustered micronodularity in the right upper lobe and left lower lobe consistent with infectious/inflammatory bronchiolitis. 2. Several tiny solid pulmonarynodules measuring up to 4 mm which are indeterminate. CT follow-up suggested in 2-3 months given thehistory of melanoma. 3. Mild bilateral mosaic attenuation which likely reflects air trapping. Scattered peripheral endobronchial plugging. Findings are compatible with the history of asthma. Ct Abdomen Pelvis With Iv Contrast Result Date: 02/29/2020 Narrative: EXAM: CT ABDOMEN PELVIS WITH IV CONTRAST COMPARISON: MRI 12/28/2014 FINDINGS: 1 cm exophytic lesion at the lower pole of the right kidney which is slightly increased in density is stable dating back to 08/31/2012 likely representing a small hemorrhagic/proteinaceous cyst. Postoperative changes of right inguinal hernia repair. No CT evidence of recurrent hernia. No adenopathy in abdomen or pelvis including the inguinal regions bilaterally. Hepatic cysts. Cholelithiasis. Small esophageal hiatal hernia. This examination was performed in conjunction with a CT of the chest, which will be reported separately. Impression: 1. No CT evidence of metastatic disease in the abdomen or pelvis. 2. No CT evidence of right inguinal hernia or adenopathy. 3. Stable exophytic lesion at the lower pole of the right kidney which may represent a small hemorrhagic/proteinaceous cyst. ASSESSMENT / PLAN #1 Lesion Kidney, 1 cm #2 Asthma #[address] Naylor and I had the pleasure today of meeting with Ms. Carmichael to discuss her right renal lesion. We discussed that solid masses in the kidney have a high likelihood of being malignant, in therealm of 80-85%. When the mass is less than 1 cm, the risk of being malignant is approximately 50%. There are benign entities such as oncocytomas and angiomyolipomas. Renal mass typically grow 3 mm peryear. Growth rate most associated with an aggressive tumor is greater than 7-8 mm per year. There sharon <1% chance of metastasis for renal masses under 4 cm. This is 1% at 4 cm. We also briefly discussed that there is a question if this is a complex cyst such as a hemorrhagic cyst. This would be any Bosniak II renal cyst, which would not have a concern for malignancy. Unfortunately, imaging is still indeterminate as to whether this is solid or cystic in nature. However, it has been relatively stable over last several years. It currently measures 1 cm. The treatment methods of renal masses include active surveillance, percutaneous ablation, partial nephrectomy, and radical nephrectomy. We typically do not biopsy renal masses as it does not often change our recommendations. Ablation has a 6% complication rate, and surgery's complication rate is 12%. Ablation has increased treatment failure over 3 cm. Anytime we do something to the kidney, there is achance that the patient can lose the kidney. In discussion with Dr. Naylor and the patient, recommendation would be for active surveillance given that it is indeterminate for solid versus cystic. Additionally, the renal lesion has been stable dating back at least 4 years. If patient were to undergo active intervention, we would consider a robotic partial nephrectomy or percutaneous ablation with our colleagues in Interventional Radiology. We discussed the triggers for treating this would be a growth rate of 5 mm or greater in a year; the renal mass reaching 4 cm; or patient preference. Patient is in agreement with this plan. We will plan on seeing her in follow-up in [address] of the abdomen pelvis, chest x-ray, BMP, and office visit. As discussed with the patient that it may be beneficial to start Kegel exercises for stress incontinence. If she is not having benefit with these, we can do a formal consultation with one of our urinary incontinence providers. All questions answered at this time. Patient is aware to call with additional questions or concerns.She has been provided Dr. Naylor's card. I personally spent a total of 40 minutes in [id number] time performing a review of the record and/or discussion with the patient/caregiver as described above. Signed by: Gracy Quiroz P.A.-C. MMimaS. 03/08/2020 3:28 PM ETHANOL QUALITY LEADER NOL QUALITY LEADER documented in this encounter Plan of Treatment Scheduled Referrals Name Type Priority Associated Diagnoses Order S [facility] Urology office Outpatient Referral Routine Expect ed: visit (clinic) 03/07/2021 (Approximate), Expires: 03/13/2023 documented as of this encounter Results CT Abdomen Pelvis with [...] Gracy Quiroz P.A.-C., M.S. IMG CT PROCEDURES Basic Metabolic Panel (05/28/2021 7:58 AM CDT) [...] 05/28/2021 DTL Black/ mL/min/BSA 9:10 AM CDT Sammarinese Comment: ----ADDITIONAL INFORMATION---- Estimated GFR calculated using [...] Organization Address City/State/ZIP Code Phon e Number [facility] - [address] [place] [address] [place] [address] [place] [address] Laboratories-[address] documented in this encounter Visit Diagnoses Diagnosis Lesion Kidney - Primary Incontinence Urinary Stress Female Lesion Kidney documented in this encounter Care Teams Neurological Surgery Teacher Relationship Specialty Start Date End Date Bakari Juárez Jr., M.D. PCP - General Internal Medicine 03/08/20 03/08/20 [address] [place] [address] documented as of this encounter
--- OUTSIDE RECORDS SUMMARY | 2021-12-03 11:39 | XMS_ITS | Encounter Summary ---
:1955 Author Organization [facility] Address [address] [place] [address] Care Team Providers Name Role Phone Unavailable Primary Care Provider Unavailable Reason for Referral Outpatient (Routine) - Closed Specialty Diagnoses / Procedures Referred By Contact Refer red To Contact Orthopedic Surgery Misti Owens APRN [facility] C.N.PMima, M.S.N. [address] [place] [address] Referral ID Status Reason Start Date Expiration Date Visits Requ ested Visits Authorized [id number] Closed 05/21/2021 05/21/2022 1 1 Scheduling Instructions Misti @ hysical Therapy (Routine) - Closed Specialty Diagnoses / Procedures Referred By Contact Refer red To Contact Diagnoses Pain Shoulder Right Misti Owens APRN, [facility] Procedures PT Evaluate and treat C.N.Haydee., M.S.N. [address] [place] [phone] Referral ID Status Reason Start Date Expiration Date Visits Requ ested Visits Authorized [id number] Closed 05/21/2021 05/21/2022 1 1 utpatient (Routine) - Closed Specialty Diagnoses / Procedures Referred By Contact Refer red To Contact Anesthesiology Diagnoses Pain [facility]er Right [facility], M.S.N. [address] [place] [address] Referral ID Status Reason Start Date Expiration Date Visits Requ ested Visits Authorized [id number] Closed 05/21/2021 05/21/2022 1 1 Encounter Details Date Type Department Care Team Description 05/21/2021 Orders Only Department of Misti Owens, Pain Shou lder Right Orthopedic Surgery in Brian ARTHUR, (Prim benedict Dx) [place], [place] M.S.N. [address] [place] [address] [place] [phone] Social History Tobacco Use Types Packs/Day Years [...] More than 4 times per year 05/09/2021 uatsdin services? Do you belong to any clubs [...] have completed or the highest Melanie, MEd, COMMUNITY SERVICE OFFICER COORDINATOR, KARLI) degree you have received? 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 documented as of this encounter Plan of Treatment Scheduled Referrals Name Type Priority Associated Order Schedule Diagnoses Preoperative Outpatient Referral Routine Pain Shoulder Right E xpected: Evaluation NIA 07/21/2021, consult (clinic) Expires: 08/20/2022 Orthopedic Surgery Outpatient Referral Routine Ex pected: Pre Op (clinic) 07/21/2021, Expires: 08/20/2022 documented as of this encounter Results SARS CoV-2 RNA, PCR, Varies Asymptomatic (07/21/2021 12:46 PM CDT) [facility] Method Time Signature SARS CoV-2 Swab, 07/21/2021 DTL RNA, PCR, Nasopharynx 7:13 PM CDT Source SARS CoV-2 Undetected Undetected 07/21/2021 DTL RNA, PCR 7:13 PM CDT Comment: SARS-CoV-2 RNA absent. This result does not rule out COVID-19 in the patient, as the sensitivity of the test depends o n the timing of the specimen collection and quality of the specimen. Result should be correlated with patient's history and clinical presentat ion. ----ADDITIONAL INFORMATION---- This RT-PCR test has received Emergency Use Authorization (EUA) by the U.S. Food and Drug Administration an d is used per senior art director's instructions. Performance characteristics were verified by [facility] in a manner consistent with CLIA requirements. Visit the CDC website: https://www.cdc.g ov/coronavirus/ for the most recent guidelines on Coron avirus testing. Fact Sheet for Healthcare Providers: https://www.fda.gov/media/642313/downloa d Fact Sheet for Patients: https://www.fda.gov/media/360419/downloa d Specimen Anatomical Collection Method Collection Time Receive d Time (Source) Location / / Volume Laterality Varies 07/21/2021 12:46 07/21/2021 1:51 (Nasopharynx) PM CDT PM CDT Schuyler Larsen APRNN.Haydee., M.S.N. LAB MICROBIOLOGY - GENERAL ORDERABLES Performing Organization Address City/State/ZIP Code Phon e Number [facility] - [address] [place], [place] [address] [facility] [place] [address] Laboratories-[facility] [address] documented in this encounter Visit Diagnoses Diagnosis Pain Shoulder Right - Primary documented in this encounter
--- OUTSIDE RECORDS SUMMARY | 2021-12-03 11:39 | XMS_ITS | Encounter Summary ---
:1955 Author Organization [facility] Address [address] [place] [id number] Care Team Providers Name Role Phone Unavailable Primary Care Provider Unavailable Reason for Referral Specialty Diagnoses / Procedures Referred By Contact Refer red To Contact Regulo Walters M.D., M.S. [address] [phone] Referral ID Status Reason Start Date Expiration Date Visits Requ ested Visits Authorized ARA MOLDER Reason for Visit Outpatient (Routine) - Closed Specialty Diagnoses / Procedures Referred By Contact Refer red To Contact Pulmonary Medicine Diagnoses Abnormal Computed Tomography Bakari Juárez Jr., M.D. [address] [address] Referral ID Status Reason Start Date Expiration Date Visits Requ ested Visits Authorized [id number] Closed 03/01/2020 03/01/2021 1 1 Encounter Details Date Type Department Care Team Description 03/07/2020 Comprehensive Visit Division of [place], Asthma eJsus hronic (HCC) (Primary Dx); Pulmonary Medicine Regulo Krueger, Abnormal Computed Tomography in Horace Najera, M.S. [address] [id number] [phone] Social History Tobacco Use Types Packs/Day Years [...] More than 4 times per year 05/09/2021 worship services? Do you belong to any clubs [...] have completed or the highest Melanie, MEd, [employer]) degree you have received? Sex Assigned at Date Recorded Female 01/10/2021 2:57 AM MASCARA MOLDER documented as of this encounter Last Filed Vital Signs Vital Sign Reading Time Taken Comments Blood Pressure - - Pulse - - Temperature - - Respiratory Rate - - Oxygen Saturation 95% 03/07/2020 2:46 PM MASCARA MOLDER Inhaled Oxygen Concentration - - Weight - - Height - - Body Mass Index - - documented in this encounter Consult Notes Aristides Soto M.D. - 03/07/2020 3:00 PM CST SUBJECTIVE This is a supervisory note for Dr. Regulo Walters. REASON FOR CONSULT Chronic asthma. HISTORY OF PRESENT ILLNESS Mrs. Megan Carmichael is a 64-year-old nonsmoker who comes for a reassessment of her asthma. I viewed findings on Mrs. Carmichael's history and physical examination and agree with what is recorded by my colleague, Dr. Walters, in his note dated March 07, 2020. Mrs. Carmichael was last seen in Pulmonary Clinic by our colleague, Dr. Hector Ritter, in December of 2014. At that time, her asthma was noted to be uncontrolled, and the addition of inhaled corticosteroid was recommended. Mrs. Carmichael also has multiple allergies along with allergic rhinitis. Mrs. Carmichael comes to us now and again manifests uncontrolled asthma. Pulmonary function testing performed earlier today demonstrates moderately severe airflow obstruction with normal diffusing capacity. Current FEV1 measures 1.05 (46% predicted) and has decreased compared to her study of December 2014. OBJECTIVE PHYSICAL EXAMINATION General: Does not look dyspneic during conversation. No cough observed. Lungs: Breath sounds are somewhat distant bilaterally with no wheezes or rhonchi heard. 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 Pulmonary function testing demonstrates moderately severe airflow obstruction. CT scan of the chest shows mild mucus plugging, minimal patchymicronodularity, and mosaic attenuation bilaterally that relates to air trapping due to asthma. I agree with assessment and plan of care as outlined by my colleague, Dr. Walters, in his note dated March 07, 2020. Aristides Soto M.D. CT CT Job ID: [id number] ARA MOLDER Regulo Walters M.D., M.S. - 03/07/2020 3:00 PM CST PULMONARY CLINIC H&P REFERRAL Bakari Juárez Jr., M.D. [address] [place] [address] CHIEF COMPLAINT / REASON FOR VISIT Dyspnea History of Present Illness: Megan Carmichael is a 64 y.o. year old female with a history notable for previous diagnosis of asthma, several allergies, GERD, hypertension, who presents for evaluation of dyspnea. Ms. Carmichael is a never smoker but has secondhand exposure from her grandparents and ex-husbandto whom she was from [id number]. She was diagnosed with asthma around age 19. She distinctly remembers an episode at that age when she had to go to the emergency department due to severe dyspneaafter a close encounter with a cat. In the emergency department she remembers getting an injection but does not recall if it was epinephrine or steroid injection. She was not admitted to the hospital or intubated. She was discharged from the emergency department. Subsequently, she was told she had asthma and was treated for it with p.r.n. albuterol. Otherwise, she has had no admissions to hospitals for any respiratory issues and has never been intubated. She does note having continued severe allergic reaction to cats. She notes other environmental allergies including dust, smoke, and mold. She works as a manager social services looking after people with psychiatric illnesses and before the pandemic often had to go to various locations in various people's houses which would occasionally exacerbate her allergies. She presents today for evaluation of dyspnea that has worsened over the last 4 years or so. She saysshe tries to remain physically active and is still walking a couple miles a day but feels she has had worsening dyspnea over the last 4 years, some of it with exertion but some of it without any identifiable cause. She denies wheezing or noisy breathing. She denies any nocturnal symptoms or nocturnal awakenings. Two months ago she had a URI and went to the urgent care and was taking her albuterol inhaler frequently. Since that URI has resolved, she has rarely had to use her albuterol inhaler, says she has been using it roughly once a week. Her chronic cough is not a big component of her symptoms. She notes that previously she was on hydrochlorothiazide for hypertension, and she used to get a coughfrom that. She currently takes lisinopril but denies having a significant cough with it. With these episodes of dyspnea, she says she feels chest heaviness and has a strong feeling of being unable to get air out. She denies chronic rhinitis or rhinosinusitis symptoms except for when she is exposed to her known allergens. She does note she used to have acid reflux and has had prior esophageal issues. She notes in 1998 an episode where a piece of meat got stuck in her throat, and she had to go to the hospital to get it endoscopically removed. She notes transient episodes of food getting stuck in her throat since then. In 2014, she was told she had an esophageal stricture and had it dilated at [facility]. She used to have significant acid reflux and said that used to make her cough. She used to take a PPI but has not done so for about 10 years. She has been getting acupuncture, and she says that has completely resolved her GERD symptoms. She does not recall many episodes of being prescribed prednisone for any shortness of breath. She says most recently she got a short course about a year ago in the setting of a URI. She does not remember previous episodes of anemia. She notes a recently discovered low hemoglobin of 10.5 was drawn the day after she had given blood and thinks that is the main cause. Besides the secondhand smoke exposure mentioned above, she has not smoked tobacco or marijuana or any other drugs. Rare alcohol user. 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 For her asthma medication, recently she remembers only being prescribed a p.r.n. albuterol inhaler. She thinks she may have tried some other inhalers in the past but does not recall the names, etc. Shedoes acknowledge only rare use of the albuterol and not being adherent to her previous inhalers. Review of systems: Pertinent items are noted in the HPI; all other review of systems was negative. Past Medical/Surgical History: Past Medical History: Diagnosis Date ??? Asthma [...] 2003 & 2008 ??? HYSTERECTOMY 2006 ??? OTHER CONVERTED SHX (SEE COMMENT) N/A 10/14/2010 >Extraperitoneal laparoscopic-assisted hernia repair (Dictated by Dr. Landaverde). ??? OTHER CONVERTED SHX (SEE COMMENT) N/A 10/13/2005 >Right Mansoor's ligament repair with Prolene mesh. Family History: Family History Problem Relation Age of Onset ??? Breast cancer Maternal Grandmother 40+ years old ??? Skin cancer Father ??? Coronary artery disease Father ??? Hypertension Father ??? Hyperlipidemia Father ??? Arthritis Father ??? Skin cancer Mother ??? Ovarian cancer Mother ??? Other cancer Father's Sister Uterine ??? Other cancer Son Testicular Social History: Social History Socioeconomic History ??? Marital status: Spouse name: Not on file ??? Number of children: Not on file ??? Years of education: Not on file ??? Highest education level: Master's degree (e.g., MA, MS, Melanie, MEd, [employer], [employer]) Occupational History ??? Not on file Social Needs ??? Financial resource strain: Not hard at all ??? Food insecurity Worry: Never true Inability: Never true ??? Transportation needs Medical: No Non-medical: No Tobacco Use ??? Smoking status: Never Smoker ??? Smokeless tobacco: Never Used Substance and Sexual Activity ??? Alcohol use: Yes Alcohol/week: 6.0 standard drinks Types: 6 Cans of beer per week Frequency: 4 or more times a week Drinks per session: 1 or 2 Binge frequency: Never ??? Drug use: Never ??? Sexual activity: Yes Partners: Male control/protection: Post-menopausal Lifestyle ??? Physical activity Days per week: 6 days Minutes per session: 40 min ??? Stress: Only a little Relationships ??? Social connections Talks on phone: More than three times a week Gets together: More than three times a week Attends worship service: More than 4 times per year Active member of club or organization: No Attends meetings of clubs or organizations: Never Relationship status: ??? Intimate partner violence Fear of current or ex partner: No Emotionally abused: No Physically abused: No Forced sexual activity: No Other Topics Concern ??? Not on file Social History Narrative ??? Not on file Current Outpatient Medications: ??? ascorbic acid, vitamin C, (VITAMIN C) 500 mg tablet, Take 2,000 mg by mouth daily., Disp: , Rfl: ??? budesonide-formoteroL (SYMBICORT) 160-4.5 mcg/actuation inhaler, Inhale 2 puffs 2 (two) times a day. Rinse mouth with water after use to reduce aftertaste and incidence of candidiasis. Do not swallow., Disp: 1 Inhaler, Rfl: 11 ??? cholecalciferol, vitamin D3, (VITAMIN D3 ORAL), Take 2,500 Units by mouth daily., Disp: , Rfl: ??? DIETARY SUPPLEMENT ORAL, Take 10 tablets by mouth daily. Jesusen tea pills for consitpation, Disp: , Rfl: ??? docosahexaenoic acid/epa (FISH OIL ORAL), Take 2 capsules by mouth daily., Disp: , Rfl: ??? fluticasone propionate (FLONASE) 50 mcg/actuation nasal spray, Administer 2 sprays into each nostril as needed., Disp: , Rfl: ??? ketoconazole (NIZORAL) 2 % cream, Apply 1 application topically 2 (two) times a day. (Patient taking differently: Apply 1 application topically as needed. ), Disp: 15 g, Rfl: 1 ??? lisinopriL (PRINIVIL,ZESTRIL) 5 mg tablet, Take 5 mg by mouth daily., Disp: , Rfl: ??? montelukast (SINGULAIR) 10 mg tablet, Take 1 tablet (10 mg total) by mouth at bedtime., Disp: 30tablet, Rfl: 11 ??? predniSONE (DELTASONE) 10 mg tablet, Take 3 tablets (30 mg total) by mouth daily for 5 days., Disp: 15 tablet, Rfl: 0 ??? tretinoin (RETIN-A) 0.025 % cream, Apply 1 application topically as needed., Disp: , Rfl: ??? TURMERIC ORAL, Take 30 mg/day by mouth., Disp: , Rfl: ??? Ventolin HFA inhaler, Inhale 2 puffs as needed., Disp: , Rfl: ??? vitamin B complex (B COMPLEX ORAL), Take 1 tablet by mouth daily., Disp: , Rfl: Allergies Allergen Reactions ??? Cigarette Smoke Shortness of breath ??? Tramadol Nausea Only, Anxiety, Palpitations, Rash and Headache ??? Cat Dander Shortness of breath ??? Mold Shortness of breath ??? Pollen Extracts Shortness of breath ??? Sulfa (Sulfonamide Antibiotics) Rash OBJECTIVE Physical Exam: SpO2 95% General: NAD, well appearing HEENT: moist oral mucosa. Heart: regular rate and rhythm without murmurs or gallops. Vascular: No JVD. 2+ distal pulses Pulm: normal effort. Symmetric chest expansion. Prolonged expiratory phase. No wheezes or crackles. Abd: soft, nontender Ext: warm, no edema Msk: no gross abnormalities Lymphatics: no palpable cervical, supraclavicular, or axillary lymphadenopathy Neuro: aaox3. Cn ii - xii grossly intact. No gross deficits in strength. Normal gait Diagnostics/Data: I have reviewed the patient's current laboratory, imaging, and other diagnostic studies; including data available in CareEverywhere. Clinically significant findings are as follows: Ct Chest With Iv Contrast Result Date: 02/29/2020 Impression: 1. Small foci of tree-in-bud and [...] Pelvis With Iv Contrast Result Date: 02/29/2020 Impression: 1. No CT evidence of metastatic disease in the abdomen or pelvis. 2. No CT evidence of right inguinal hernia or adenopathy. 3. Stable exophytic lesion at the lower pole of the right kidney which may represent a small hemorrhagic/proteinaceous cyst. ASSESSMENT / PLAN 1. Chronic asthma, uncontrolled 2. Numerous allergies (cat, with recent positive skin testing 3. Moderate obstruction with air trapping, normal DLCO 4. CT chest with mosaic attenuation, scattered endobronchial plugging, and small foci of [id number] Ms. Carmichael's symptoms and objective testing here are all consistent with uncontrolled asthma with a significant allergic component. She has moderate obstruction on spirometry with FEV1 reduced to 46% predicted and with signs of hyperinflation both on PFTs and imaging. Cough for nocturnal symptoms are not a big part of her symptomatology except for when exposed to known allergens. She has been managing with p.r.n. albuterol and using it only rarely. Her ANCA are negative, she does not have high 80s eosinophilia currently off steroids, and no evidence of sinus disease or polyps. Her absolute eosinophil count is currently 110 and the highest we have on record for her is 500 back in 2011. We will get an x-ray enlarged oxide measurement today. Will start therapy with a short course of prednisone and MARY step 4 therapy with budesonide-formoterol and add on montelukast given the significant allergy component. We can use the budesonide-formoterol for the reliever as well. I have placed orders for nurse education visits to ensure correct inhaler technique as well as peak flow meter education. Once that's done, I will send her an asthma action plan. She has an upcoming appointment with our colleagues in Allergy and immunology and I will f/u their recommendations regarding her numerous allergies. I do note that sputum studies for Gram stain and AFB stain and mycobacterial culture were ordered; she currently has no cough and is not producing sputum. Her CT findings of micronodularity and scatterendobronchial plugging are mild and are consistent with asthma, especially with the concomitant mosaicism and air trapping; we have very low suspicion for any chronic infection including fungal or NTM.Moreover, there are no typical findings for allergic bronchopulmonary aspergillosis. We can check anIgE level, but as she has been undertreated for so long, we should gauge her response to the currentplanned therapy before considering biologics etc. There are a few tiny nodules seen, up to 4mm in greatest dimension. Given her history of melanoma, these can be followed up with a repeat CT in 3-6 months; otherwise she is a low risk patient for primary lung cancer. The patient was seen, examined, and discussed with the supervising senior professional services consultant, Dr. Soto. ARA MOLDER documented in this encounter Plan of Treatment Scheduled Orders Name Type Priority Associated Diagnoses Order S chedule Instruction Metered Dose PFT Routine Asthma Chronic ( HCC) Expected: 03/07/2020 Inhaler (Approximate), Expires: 03/07/2023 Scheduled Referrals Name Type Priority Associated Order Schedule Diagnoses Pulmonary - Outpatient Referral Routine Asthma Chronic Expect ed: Instruction peak flow (HCC) 2020 education visit (Approximate ), (clinic) Expires: 03/09/2023 documented as of this encounter Results PUL Exhaled Nitric Oxide (03/07/2020 4:38 PM MASCARA MOLDER) [facility] gist Method Time Signature ENOComment Patient [...] Diagnoses Diagnosis Asthma Chronic (HCC) - Primary Abnormal Computed Tomography documented in this encounter
--- OUTSIDE RECORDS SUMMARY | 2021-12-03 11:39 | XMS_ITS | Encounter Summary ---
:1955 Author Organization [facility] Address [address] [place] [address] Care Team Providers Name Role Phone Unavailable Primary Care Provider Unavailable Reason for Referral Outpatient (Routine) - Authorized Specialty Diagnoses / Procedures Referred By Contact Refer red To Contact Urology Kim Almanzar APRN [facility] C.N.P., D.N.P. [address] [place], [place] [phone] Referral ID Status Reason Start Date Expiration Date Visits V isits Requested Authorized [id number] Authorized 05/28/2021 05/28/2022 1 1 utpatient (Routine) - Authorized Specialty Diagnoses / Procedures Referred By Contact Refer red To Contact Diagnoses Lesion Kidney Kim Almanzar APRN, [facility] Procedures US Kidneys Bilateral with Bladder C.N.P., D.N.P. [address] [place], [place] [phone] Referral ID Status Reason Start Date Expiration Date Visits V isits Requested Authorized [id number] Authorized 05/28/2021 05/28/2022 1 1 Reason for Visit Outpatient (Routine) - Closed Specialty Diagnoses / Procedures Referred By Contact Refer red To Contact Urology Gracy Quiroz P .A.-C., M.S. [place] [facility] Andreia Sandoval, [address] [place] [address] Referral ID Status Reason Start Date Expiration Date Visits Requ ested Visits Authorized [id number] Closed 03/13/2020 03/13/2021 1 1 Encounter Details Date Type Department Care Team Description 05/28/2021 Office Visit Department of Urology Kim Almanzar Kidney (Primary Dx); in [place], , RIDE ASSEMBLY SUPERVISOR C.N.P., Nodules Pu lmonary [facility] D.N.P. [address] [place] [phone] Social History Tobacco Use Types Packs/Day Years [...] or relatives? How often do you attend mandaeism or More than 4 times per year 05/09/2021 sabianism services? Do you belong to any clubs or No 05/09/2021 organizations such as mandaeism groups, unions, fraternal or athletic groups, or [...] have completed or the highest Melanie, MEd, HAND WOVEN CARPET AND RUG MENDER, KARLI) degree you have received? 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 - 05/28/2021 2:30 PM CDT SUBJECTIVE CHIEF COMPLAINT / REASON FOR VISIT Renal mass recheck Patient of Dr. Naylor's seen on my personal calendar HISTORY OF PRESENT ILLNESS Ms. Carmichael is a pleasant 65-year-old female who presents today for a renal mass recheck. She was seen by Dr. Naylor in February of 2020. She has had a RIGHT lower pole renal lesion since 2012. There was a slight increase in density since the imaging on 08/31/2012. She underwent a ultrasound on 02/05/2016 which noted that this renal lesion measured 1.1 cm and was indeterminate but favored to be solid. She had an MRI in 2013 which noted that the mass was equivocal as to whether was solid or cystic.It is new since 2004 however has been present not imaging since 2010. At her evaluation with Dr. Naylor the mass measured 1 cm. She ultimately opted for active surveillance and presents today for a recheck. Her chest CT in February of 2020 demonstrated several tiny solid pulmonary nodules measuring up to 4 mm and indeterminate. Was recommended she have continued close monitoring given her history of melanoma. She had a repeat chest CT in September of 2020 locally and per the report in Care Everywhere which de monstrated nonspecific small focus of centrilobular nodularity left upper lobe along with scattered sub 6 mm pulmonary nodules bilateral bilaterally. She has been following with pulmonary medicine herefor asthma. She reports overall she has been doing well. She did have a recent urinary tract infection that was treated at home. Has not had any other recurrent infections. She denies any gross hematuria, flank pain or abdominal pain. She denies any constitutional symptoms of fatigue, fevers, chills, changes in appetite, unintentional weight loss, night sweats or abnormal bone pain. The following portions of the patient's history were reviewed and updated as appropriate: allergies,current medications, family history, medical history, social history, surgical history and problem list. REVIEW OF SYSTEMS Respiratory: Positive for dyspnea. Musculoskeletal: Positive for arthralgias, pain or stiffness in the joints, joint swelling and muscle pain/stiffness. The following systems were negative: Constitutional, Skin, Eyes, ENT, CV, GI, , Hematologic, Neuro, Psych Per HPI. Problem List: Patient Active Problem List Diagnosis ??? Hypertension ??? Asthma Moderate Persistent (HCC) ??? Melanoma Of Skin Cancer Personal History ??? Rhinitis Allergic ??? Pain Shoulder Right MEDICAL HISTORY Past Medical History: Diagnosis Date ??? Asthma NOS 09/1969 ??? Cataract 2019 ??? Concussion Loss Of Consciousness Unspecified Duration Initial 07/2002 ??? Gastroesophageal Reflux Disease NOS 1991 ??? Hypertension NOS 09/2013 ??? Melanoma Skin (HCC) 2016 ??? Osteopenia 2017 ??? Other Injury Of Unspecified Body Region 03/2016 Fractured right wrist-slipped on ice ??? Pneumonia 12/1971 ??? Polyp Colon 2021 OBJECTIVE PHYSICAL EXAMINATION URO Physical Exam DIAGNOSTICS Labs: Recent Results (from the past 72 hour(s)) Basic Metabolic Panel Collection Time: 05/28/21 7:58 AM Result Value Potassium, S 4.7 Sodium, S 140 Chloride, S 102 Bicarbonate, S 27 Anion Gap 11 BUN (Blood Urea Nitrogen), S 13 Creatinine, S 0.70 eGFR-Non Black/ >90 eGFR-Black/ >90 Calcium, Total, S 9.5 Glucose, S 93 Creatinine, POCT Collection Time: 05/28/21 8:33 AM Result Value eGFR-Black/, POCT >90 eGFR Non-Black/, POCT >90 Creatinine, POCT Collection Time: 05/28/21 8:33 AM Result Value Creatinine, POCT, B 0.7 Imaging: I personally reviewed the images. CT Abdomen Pelvis with IV Contrast Result Date: 05/28/2021 Narrative: EXAM: CT ABDOMEN PELVIS WITH IV CONTRAST COMPARISON: 02/29/2020 FINDINGS: Stable 1 cm nonenhancing slightly high density nodule protruding from the lower pole of the right kidney which is likely a cyst containing hemorrhage or debris. Tiny cyst protruding from the upper pole of the right kidney. Right inguinal hernia repair. Tiny probable cysts in the right hepatic lobe. Stable calcification in or adjacent to the gallbladder. Small esophageal hiatal hernia. Gastric diverticulum. Multiple duodenal diverticula. Mild hypertrophic changes in the lumbar spine. Slight anterolisthesis of L4 on L5. Impression: 1. No evidence of metastatic disease in the abdomen or pelvis. 2. 1 cm nonenhancing nodule protruding from the lower pole of the right kidney is stable. ASSESSMENT / PLAN #1 Lesion Kidney #2 Nodules Pulmonary Multiple It was my pleasure to meet with Ms. Carmichael and her today in clinic for follow-up of her RIGHT renal lesion. I reviewed her cross-sectional imaging and discussed that the lesion in the RIGHT lower pole is stable at 1 cm and is nonenhancing. This is favored to be a benign lesion likely a hemorrhagic or proteinaceous cyst. She did have a chest x-ray done in April however I do not have theoutside report. I did discuss with her that prior chest CTs have demonstrated multiple pulmonary nodules. It is unclear if this will be continued to follow. I will contact the Pulmonary Medicine team for recommendations on follow-up of her chest imaging. I reviewed her laboratory testing which was all within the normal limits within normal kidney function. She is overall doing well. Regarding her recent infection she has recovered from this. I discussed the definition of recurrent urinary tract infections which would be greater than 3-4 year. If she begins dealing with recurrent UTIs we could meet back to discuss management of this. She verbalizes understanding. I recommended a follow-up in one year. We will transition her to renal ultrasound as she has some concerns about radiation exposure and given the benign appearance of this lesion this would not be unreasonable. In addition we will obtaina BMP with a follow-up visit. She verbalizes understanding is agreement with this plan. All questions were addressed. Plan 1. Follow-up in one year to include renal ultrasound, BMP and office visit 2. I will contact Pulmonary Medicine on follow-up for her pulmonary nodule Kim Almanzar APRN, C.N.Celestino, D.N.P. 05/28/2021 12:43 PM CDT documented in this encounter Plan of Treatment Scheduled Orders Name Type Priority Associated Diagnoses Order S cheart US Kidneys Imaging RAD - Routine (most Lesion Kidney Expecte d: Bilateral with inpatients and all 023, Bladder outpatients) Expires: 08/27/2022 Basic Metabolic Lab Routine Lesion Kidney Expected: Panel 05/28/2022, Expires: 08/27/2022 Scheduled Referrals Name Type Priority Associated Diagnoses Order S markus Urology office Outpatient Referral Routine Expect ed: visit (clinic) 05/28/2022, Expires: 08/27/2022 documented as of this encounter Visit Diagnoses Diagnosis Lesion Kidney - Primary Nodules Pulmonary Multiple documented in this encounter
--- OUTSIDE RECORDS SUMMARY | 2021-12-03 11:39 | XMS_ITS | Encounter Summary ---
:1955 Author Organization [facility] Address [address] [place] [address] Care Team Providers Name Role Phone Unavailable Primary Care Provider Unavailable Reason for Visit Outpatient (Routine) - Closed Specialty Diagnoses / Procedures Referred By Contact Refer red To Contact Infectious Diseases Diagnoses Abnormal Computed Tomography Bakari Juárez Jr.[facility] [address] [place] [address] Referral ID Status Reason Start Date Expiration Date Visits V isits Requested Authorized [id number] Closed Specialty 03/01/2020 03/01/2021 1 1 Services Required Encounter Details Date Type Department Care Team Description 03/11/2020 Comprehensive Visit Section of Bakari Juárez Jr., M.D. [address] [place] [phone] Abnormal Computed Infectious Diseases Rafiq Talamantes M.D., Ph.D. [address] [place] [phone] Tomography in [place], [place] [address] [place] [phone] Social History Tobacco Use Types Packs/Day Years [...] More than 4 times per year 05/09/2021 baptism services? Do you belong to any clubs [...] completed or the highest Melanie, MEd, MANAGER HIGHWAY, KARLI) degree you have received? 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 - 03/11/2020 1:30 PM CST Infectious Diseases Outpatient Consultation Service-Consult Note SUBJECTIVE REASON FOR CONSULT We are asked by Bakari Juárez Jr., M.D. to see Ms. Carmichael to give further recommendations for evaluation and management of abnormal chest CT findings. HISTORY OF PRESENT ILLNESS Ms. Carmichael is a 64 y.o. female with a past medical history of asthma, GERD, prior melanoma, and hypertension who has been seen at [facility] for evaluation of persistent dyspnea. She has had shortness of breath for many years. This is particularly associated with allergy exposures including cats as well as seasonal allergies. Along with the shortness of breath she has an intermittent cough that is dry at times and other times more moist if she has a significant allergy exposure. She has stable weight. No drenching night sweats. No new rashes or skin lesions. No problems with lymphadenopathy. During her evaluation here she had a chest CT on 02/28 which had small foci of tree in bud clusters in the right upper and left lower lobes as well as several tiny nodules. She was seen by our pulmonary colleagues and recommended to start prednisone, montelukast, as well as Symbicort. She started the prednisone and montelukast but only today started the Symbicort. Blood work previously obtained is notable for normal white blood cell count, ESR 8, CRP <3. She had sputum cultures collected this morning. Aspergillus fumigatus IgG normal at 74.1. For exposure history she has lived primarily in [place] and currently lives in [place]. 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 With this job she has had prior TB skin testing which was negative approximately 10 years ago. She has traveled to the [facility] including approximately one and half years ago. No acute illnesses while there other than an ear infection thought to be due to MRSA. International travel only to [place] including five years ago when she developed a diffuse rash after water exposure. She has a dog at home. She previously had horses. No contact with farm animals. Lives at home with her who has been healthy. REVIEW OF SYSTEMS Skin: Positive for skin rash. ENT: Positive for sinus congestion. Respiratory: Positive for coughing up mucus (phlegm) and dyspnea. Cardiovascular: Positive for chest pain, pressure or tightness. Gastrointestinal: Positive for constipation and difficulty swallowing. Hematologic: Positive for abnormal lumps or bumps. Musculoskeletal: Positive for back pain and muscle pain/stiffness. The following systems were negative: Constitutional, Eyes, , Neuro, Psych OBJECTIVE PHYSICAL EXAM Vital Signs: I have reviewed the current vital sign data as applicable. Vitals signs reviewed. Constitutional Appearance: Normal appearance. Eyes Extraocular Movements: Extraocular movements intact. Conjunctiva/sclera: Conjunctivae normal. Cardiovascular Rate and Rhythm: Normal rate and regular rhythm. Heart sounds: No murmur. Pulmonary Effort: Pulmonary effort is normal. No respiratory distress. Breath sounds: Normal breath sounds. Abdominal General: There is no distension. Tenderness: There is no abdominal tenderness. Neurological General: No focal deficit present. Mental Status: She is alert and oriented to person, place, and time. Psychiatric Mood and Affect: Mood normal. Behavior: Behavior normal. DIAGNOSTICS I have reviewed diagnostics. Studies of note include: 02/29/[address]: IMPRESSION: 1. Small foci of tree-in-bud and clustered micronodularity in the right upper lobe and left lower lobe consistent with infectious/inflammatory bronchiolitis. 2. Several tiny solid pulmonary nodules measuring up to 4 mm which are indeterminate. CT follow-up suggested in 2-3 months given the history of melanoma. 3. Mild bilateral mosaic attenuation which likely reflects air trapping. Scattered peripheral endobronchial plugging. Findings are compatible with the history of asthma. ASSESSMENT / PLAN #1 Abnormal Computed Tomography #2 Chronic dyspnea and intermittent cough, likely due to asthma We discussed potential infectious etiologies for the findings on CT including more opportunistic infections such as endemic fungal infections or non tuberculosis mycobacteria. She had sputum cultures performed this morning which are pending. Overall given the chronicity of symptoms and minimal findings on chest CT, I do not think further testing for infectious etiologies would be of high yield. Primarily because if we were to identify an etiology such as endemic fungal infection, this would be considered a very mild infection and treatment would not be recommended. Similarly, if her mycobacterial cultures were positive for an and MABEL would still be hesitant to treat this given her mild symptoms and rather would wait to see if she had significant improvement with her asthma treatment. If her symptoms were to worsen in the future or if the repeat chest CT in three months show progressive inflammatory changes concerning for infection then we would recommend additional infectious etiology testing at that time including repeat sputum cultures as well as endemic fungal workup. RECOMMENDATIONS 1. No additional testing recommended at this time given mild symptoms and small changes on chest CT 2. If symptoms worsen or planned repeat chest CT shows worsening inflammation concerning for infection then would obtain repeat sputum cultures with bacterial fungal and mycobacterial cultures and stains, histoplasma antibody and urine antigen, blastomyces antibodies and urine antigen, and Coccidiodesantibodies. Treatment plan reviewed with Ms. Dowdon, who expressed understanding. All questions answered to patient's satisfaction. Thank you for the consult. Rafiq Talamantes M.D., Ph.D. I personally spent 40 minutes in care of the patient today. Time includes both non face to face and face to face patient care. ROLLER ENGINEER documented in this encounter Plan of Treatment Not on filedocumented as of this encounter Visit Diagnoses Diagnosis Abnormal Computed Tomography documented in this encounter
--- OUTSIDE RECORDS SUMMARY | 2021-12-03 11:39 | XMS_ITS | Encounter Summary ---
:1955 Author Organization [facility] Address [address] [place] [address] Care Team Providers Name Role Phone Unavailable Primary Care Provider Unavailable Reason for Visit Reason Comments Med Refill Encounter Details Date Type Department Care Team Description 11/11/2020 Refill Division of Pulmonary Medicine Regulo Walters V., Med Refill in [facility] kamaljit Vu, M.S. [address] [facility] [address] [place] [phone] [place] [address] [phone] (Wo rk) Social History Tobacco Use Types [...] or relatives? How often do you attend holiness or More than 4 times per year 05/09/2021 yazidi services? Do you belong to any clubs or No 05/09/2021 organizations such as holiness groups, unions, fraternal or athletic groups, or [...] have completed or the highest Melanie, MEd, ORNAMENT SETTER, KARLI) degree you have received? 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
--- OUTSIDE RECORDS SUMMARY | 2021-12-03 11:39 | XMS_ITS | Encounter Summary ---
:1955 Author Organization [facility] Address [address] [place] [address] Care Team Providers Name Role Phone Unavailable Primary Care Provider Unavailable Reason for Visit Outpatient (Routine) - Closed Specialty Diagnoses / Procedures Referred By Contact Refer red To Contact Allergy and Immunology Diagnoses Asthma (HCC) Bakari Juárez Jr.[facility] [address] [place] [address] Referral ID Status Reason Start Date Expiration Date Visits Requ ested Visits Authorized [id number] Closed 02/29/2020 02/28/2021 1 1 Encounter Details Date Type Department Care Team Description 03/11/2020 Comprehensive Visit Division of Allergic Volcheck, Stephen ald Asthma (HCC) Diseases in [address] [place] [phone] Social History Tobacco Use Types Packs/Day Years [...] or relatives? How often do you attend episcopalian or More than 4 times per year 05/09/2021 cheondoism services? Do you belong to any clubs or No 05/09/2021 organizations such as episcopalian groups, unions, fraternal or athletic groups, or [...] have completed or the highest Melanie, MEd, LOCATION MANAGER, KARLI) degree you have received? 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 - 03/11/2020 10:00 AM CST SUBJECTIVE REASON FOR CONSULT Asthma. HISTORY OF PRESENT ILLNESS Mrs. Carmichael is a 64-year-old female from [place], [place], who has had a history of asthma that dates back to age 19 that was rather marked with cat exposure. Through the years, primarily with different exposures, she has noted significant respiratory symptoms, but otherwise has not had periods of time of marked flare but in general, particularly over the last 4-5 years, has had shortness of breath and has not been able to participate in her usual exercise activities, such as running, that she would normally like to do. She was seen here in Pulmonary Medicine on March 07, 2020, where she had an extensive evaluation performed and a management plan put in place in regards to her inhaler regimen. We focused primarily on her exposure history. Her current home was built in 1979 and includes 4 floors. The bedroom is on the top floor. At home they do have a dog that they have had for approximately the last 4 years. This is a mix, but does shed quite a bit and she does vacuum essentially on a dailybasis. She does not note any marked symptoms when close to the dog or change in her baseline symptoms, but will notice sometimes with other dog exposures that she could develop itchiness. 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 This involves her going into multiple homes on a daily basis, and she would note with homes with cats or other pets worsening of her symptoms. During the pandemic she has been working more from home and does feel that this has been beneficial for her. [place] In addition, she does note worsening of her symptoms primarily in the spring and fall. Past medical history, medications, review of systems are reviewed. OBJECTIVE PHYSICAL EXAMINATION Vital Signs: Temperature 36.7, respiratory rate 14. General: Pleasant female in no distress. DIAGNOSTICS Further laboratory results are reviewed. Allergen skin prick testing to the basic and Northern panelshowed multiple positives including cat, dog, Alternaria, and multiple other outdoor molds, and in addition, indoor mold penicillium. Also, there were multiple tree, grass, and weed pollen positivities. We reviewed her pulmonary function tests which show moderate obstruction. A bronchodilator was not performed with this PFT, and the one performed approximately 5 years ago there was over 20% improvement with bronchodilator. ASSESSMENT / PLAN #1 Moderate persistent asthma We discussed the importance of medication management, particularly at this juncture with her asthma.I am in complete agreement with the plan as outlined by Pulmonary Medicine with the use of the budesonide-formoterol inhaler as controller and reliever and the use of montelukast daily. We discussed the overall goal of improving her lung function to the normal range and the inhalers play a critical role in getting to that point. From an environmental standpoint, we discussed a number of strategies that include: 1. If possible, to move the dog out of the bedroom and then to use a HEPA air filter in the bedroom. 2. During the summer months to try and keep humidity lower in the house to less than 40%. 3. Keep the bedroom window closed during the spring and fall to limit pollens getting into the home. 4. To immediately shower and change clothes after prolonged outdoor activity during the warmer months of the year and then also after work, especially if she is in other people's homes during the day. 5. To be aggressive with nasal allergy management with the use of either Flonase or Nasacort or Rhinocort 2 squirts each nostril daily. This could be increased to twice a day if needed, and in addition, a Neti Pot or other saline irrigation could be utilized at any time point. We emphasized the importance of keeping the nose and sinuses as good shape as possible as this directly affects the lungs. 6. Also emphasized the importance of the inhaler use, and as noted, she is going to be following up with the Pulmonary Medicine nurses for further instruction. Antonio Goins M.D. CT CT Job ID: [id number] HOME TUTOR documented in this encounter Plan of Treatment Not on filedocumented as of this encounter Visit Diagnoses Diagnosis Asthma (HCC) documented in this encounter
--- OUTSIDE RECORDS SUMMARY | 2021-12-03 11:39 | XMS_ITS | Encounter Summary ---
:1955 Author Organization [facility] Address [address] [place] [address] Care Team Providers Name Role Phone Unavailable Primary Care Provider Unavailable Encounter Details Date Type Department Care Team Description 04/01/2021 Clinical Communication Department of Prescheduling, Orthopedic Surgery in [place], [place] [address] [place] [address] Social History Tobacco Use Types Packs/Day Years [...] or relatives? How often do you attend religion or More than 4 times per year 05/09/2021 orthodox services? Do you belong to any clubs or No 05/09/2021 organizations such as religion groups, unions, fraternal or athletic groups, or [...] place to sleep or slept in a detention (including now)? Education Answer Date Recorded What is the highest level of school Master's degree (e.g., M A, MS, 02/27/2020 you have completed or the highest Melnaie, MEd, DOSIMETRIST, KARLI) degree you have received? Sex Assigned at Date Recorded Female 01/10/2021 2:57 AM FACE MAN documented as of this encounter Miscellaneous Notes Telephone Encounter - Donna Gomez - 04/01/2021 2:23 PM CST Upper Extremity Pre-Scheduling Questionnaire MAN documented in this encounter Plan of Treatment Not on filedocumented as of this encounter Visit Diagnoses Not on filedocumented in this encounter
--- OUTSIDE RECORDS SUMMARY | 2021-12-03 11:39 | XMS_ITS | Encounter Summary ---
:1955 Author Organization [facility] Address [address] [place] [address] Care Team Providers Name Role Phone Unavailable Primary Care Provider Unavailable Reason for Visit Reason Comments Communication CT Encounter Details Date Type Department Care Team Description 05/12/2021 Clinical Department of Alfredo De Souza (CT) Communication Orthopedic Surgery [facility] in [place], [facility] [address] [place], [place] [address] [facility] [address] [place], [place] [phone] (Work) [phone] Social History Tobacco Use Types Packs/Day Years [...] or relatives? How often do you attend nondenominational or More than 4 times per year 05/09/2021 rastafari services? Do you belong to any clubs or No 05/09/2021 organizations such as nondenominational groups, unions, fraternal or athletic groups, or [...] have completed or the highest Melanie, MEd, STEEL GRINDER, KARLI) degree you have received? Sex Assigned at Date Recorded Female 01/10/2021 2:57 AM KITCHEN CLEANER documented as of this encounter Miscellaneous Notes Telephone Encounter - Norma Bruce - 05/12/2021 4:21 PM CDT I spoke with the patient; she will wait closer to when surgery is scheduled to have her CT done. Telephone Encounter - Misti Owens APRN, C.N.P., M.S.N. - 05/12/2021 3:26 PM CDT If she is wanting surgery, we will need a CT. If she is going to wait until later in the year for surgery, we can wait until closer to that time. Telephone Encounter - Norma Bruce - 05/12/2021 2:00 PM CDT The patient called regarding her CT scan that is scheduled for tomorrow. She is concerned about the radiation. She wants to know if she has to get the CT done or if there are other options. The patient can be reached at [phone] or Patient portal. documented in this encounter Plan of Treatment Not on filedocumented as of this encounter Visit Diagnoses Not on filedocumented in this encounter
--- OUTSIDE RECORDS SUMMARY | 2021-12-03 11:39 | XMS_ITS | Encounter Summary ---
:1955 Author Organization [facility] Address [address] [place] [address] Care Team Providers Name Role Phone Unavailable Primary Care Provider Unavailable Encounter Details Date Type Department Care Team Description 03/07/2020 Hospital Encounter Department of Bakari Juárez Abnormal Computed Laboratory Medicine Horace Baumann Tomography and Pathology, [address] [facility] in [place], [place] [address] [place] [address] [place], [place] (Work) [phone] Social History Tobacco Use Types Packs/Day Years [...] More than 4 times per year 05/09/2021 yarsani services? Do you belong to any clubs [...] have completed or the highest Melanie, MEd, DELIVERY REP, KARLI) degree you have received? Sex Assigned at Date Recorded Female 01/10/2021 2:57 AM MATERIAL MIXER documented as of this encounter Medications at [...] Name Priority Date/Time Associated Diagnosis Comme nts GRAM STAIN Routine 03/11/2020 12:03 PM Results for this MATERIAL MIXER procedure are i n the results section . documented in this encounter Results Gram Stain (03/11/2020 12:03 PM MATERIAL MIXER) [facility] Method Time Signature Gram Stain Microscopic examination shows many epithelial cells 03/11/2020 DTL indicating oropharyngeal contamination-bacterial culture not 1:19 PM MATERIAL MIXER performed. Specimen Anatomical Collection Method Collection Time Receive d Time (Source) Location / / Volume Laterality Sputum 03/11/2020 12:03 03/11/2020 PM MATERIAL MIXER 12:03 PM MATERIAL MIXER Comment: Specimen Source Site: Sputum Bakari Juárez Jr., M.D. LAB MICROBIOLOGY - GENERAL O RDERABLES Performing Organization Address City/State/ZIP Code Phon e Number [facility] - [address] [place], [place] [address] [facility] [address] [facility] [address] documented in this encounter Visit Diagnoses Diagnosis Abnormal Computed Tomography documented in this encounter
--- OUTSIDE RECORDS SUMMARY | 2021-12-03 11:40 | XMS_ITS | Encounter Summary ---
:1955 Author Organization [facility] Address [address] [place] [address] Care Team Providers Name Role Phone Unavailable Primary Care Provider Unavailable Encounter Details Date Type Department Care Team Description 03/04/2020 Hospital Encounter Department of Bakari Juárez Laboratory Medicine Horace Baumann Screening For Other in [place], [facility] [address] [facility] Viral Diseases [place], [place] (COVID-19) [address] [place] [place] [address] [place], [place] [phone] [address] (Work) [phone] Social History Tobacco Use Types Packs/Day Years [...] or relatives? How often do you attend moravian or More than 4 times per year 05/09/2021 buddhist services? Do you belong to any clubs or No 05/09/2021 organizations such as moravian groups, unions, fraternal or athletic groups, or [...] have completed or the highest Melanie, MEd, TUG BOAT ENGINEER, KARLI) degree you have received? Sex Assigned at Date Recorded Female 01/10/2021 2:57 AM FILLING AND PACKING SUPERVISOR documented as of this encounter Medications at [...] Associated Diagnosis Comme nts SARS CORONAVIRUS-2 Routine 03/04/2020 11:50 AM Encounter For R esults for this RNA, V FILLING AND PACKING SUPERVISOR Screening For Other procedur e are in Viral Diseases the results (COVID-19) section. documented in this encounter Results SARS Coronavirus-2 RNA, V Asymptomatic (03/04/2020 11:50 AM FILLING AND PACKING SUPERVISOR) [facility] Method Time Signature SARS-CoV-2 Swab, 03/04/2020 MKTO Specimen Nasopharynx 10:15 PM Source FILLING AND PACKING SUPERVISOR SARS CoV-2 Undetected Undetected 03/04/2020 MKTO RNA, TMA 10:15 PM FILLING AND PACKING SUPERVISOR Comment: SARS-CoV-2 RNA absent. This result does not rule out COVID-19 in the patient, as the sensitivity of the test depends o n the timing of the specimen collection and the quality of the specim en. Result should be correlated with patient's history and clinical presentat ion. ----ADDITIONAL INFORMATION---- This molecular amplification test was pe rformed using the Aptima SARS-CoV-2 assay ([employer] on the [employer] tem under emergency use authorization (EUA) by the U.S. Food and Drug Administ ration. Fact sheets for this EUA assay can be fo und at the following links: For Healthcare Providers: https://www.fd a.gov/media/366825/download For Patients: https://www.fda.gov/media/ 151798/download Specimen Anatomical Collection Method Collection Time Receive d Time (Source) Location / / Volume Laterality Varies 03/04/2020 11:50 03/04/2020 5:02 (Nasopharynx) AM FILLING AND PACKING SUPERVISOR PM FILLING AND PACKING SUPERVISOR Bakari Juárez Jr., M.D. LAB MICROBIOLOGY - GENERAL O RDERABLES Performing Organization Address City/State/ZIP Code Phon e Number [facility]- [address] [place] [id number] [place] [address] [address] documented in this encounter Visit Diagnoses Diagnosis Encounter For Screening For Other Viral Diseases (COVID-19) documented in this encounter Additional Health Concerns Infection Onset Date Last Indicated Resolved Time COVID19 Pending 03/04/2020 03/04/2020 03/04/2020 10:16 PM FILLING AND PACKING SUPERVISOR documented as of this encounter
--- OUTSIDE RECORDS SUMMARY | 2021-12-03 11:40 | XMS_ITS | Encounter Summary ---
:1955 Author Organization [facility] Address [address] [place] [address] Care Team Providers Name Role Phone Unavailable Primary Care Provider Unavailable Encounter Details Date Type Department Care Team Description 02/29/2020 Hospital Encounter Department of Frank Singh, Werner valenzuela; Laboratory Medicine M.DMima Shortness Of Breath; and Pathology, [address] [place] [address] Lymphadenopathy Inguinal; [facility], in [place], [place] Dyspnea On Exertion [facility] [id number] [place] [phone] [address] [facility] (Work) [place], [place] [phone] (Fax) [phone] Social History Tobacco Use Types Packs/Day Years [...] More than 4 times per year 05/09/2021 protestant services? Do you belong to any clubs [...] completed or the highest Melanie, MEd, MANAGER [employer], KARLI) degree you have received? Sex Assigned at Date Recorded Female 01/10/2021 2:57 AM CHILD GUIDANCE COUNSELOR documented as of this encounter Medications at [...] 07/09/2021 D3, (VITAMIN D3 ORAL) mouth daily. tretinoin (RETIN-A) Apply 1 application 0 05/12/2021 0.025 % cream topically as needed. Ventolin HFA inhaler Inhale 2 puffs as 0 01/27/20 20 01/15/2021 needed. documented as of this encounter Plan of Treatment Not on filedocumented as of this encounter Procedures Procedure Name Priority Date/Time Associated Diagnosis Comme nts NT-PRO B-TYPE Routine 02/29/2020 1:27 Shortness Of Breath Resu lts for NATRIURETIC PEPTIDE PM CHILD GUIDANCE COUNSELOR this pro cedure (BNP), S are in the results section. SEDIMENTATION RATE, B Routine 02/29/2020 1:27 Lymphadenopathy Results for PM CHILD GUIDANCE COUNSELOR Inguinal this procedure are in the results section. D-DIMER, P Routine 02/29/2020 1:27 Shortness Of Breath Resul ts for PM CHILD GUIDANCE COUNSELOR this procedure are in the results section. CBC WITH DIFFERENTIAL, Routine 02/29/2020 1:27 Dyspnea On Exer tion Results for B PM CHILD GUIDANCE COUNSELOR this procedure are in the results section. C-REACTIVE PROTEIN Routine 02/29/2020 1:27 Lymphadenopathy Res ults for (CRP), S/P PM CHILD GUIDANCE COUNSELOR Inguinal this procedure are in the results section. ALANINE Routine 02/29/2020 1:27 Mass Kidney Results for AMINOTRANSFERASE (ALT), PM CHILD GUIDANCE COUNSELOR this procedure S/P are in the results section. ASPARTATE Routine 02/29/2020 1:27 Mass Kidney Results for AMINOTRANSFERASE (AST), PM CHILD GUIDANCE COUNSELOR this procedure S/P are in the results section. ALKALINE PHOSPHATASE, Routine 02/29/2020 1:27 Mass Kidney Res ults for S/P PM CHILD GUIDANCE COUNSELOR this procedure are in the results section. LACTATE DEHYDROGENASE Routine 02/29/2020 1:27 Lymphadenopathy Results for (LD), S PM CHILD GUIDANCE COUNSELOR Inguinal this procedure are in the results section. documented in this encounter Results (ABNORMAL) CBC with Differential, Blood (02/29/2020 1:27 PM CHILD GUIDANCE COUNSELOR) [facility] Method Time Signature Hemoglobin 10.5 (L) 11.6 - 02/29/2020 DTL 15.0 g/dL 2:05 PM CHILD GUIDANCE COUNSELOR Hematocrit 32.5 (L) 35.5 - 02/29/2020 DTL 44.9 % 2:05 PM CHILD GUIDANCE COUNSELOR Erythrocytes 3.37 (L) 3.92 - 02/29/2020 DTL 5.13 2:05 PM CHILD GUIDANCE COUNSELOR x10(12)/L MCV 96.4 78.2 - 02/29/2020 DTL 97.9 fL 2:05 PM CHILD GUIDANCE COUNSELOR RBC Distrib Width 12.2 12.2 - 02/29/2020 DTL 16.1 % 2:05 PM CHILD GUIDANCE COUNSELOR Platelet Count 286 157 - 371 02/29/2020 DTL x10(9)/L 2:05 PM CHILD GUIDANCE COUNSELOR Leukocytes 6.3 3.4 - 9.6 02/29/2020 DTL x10(9)/L 2:05 PM CHILD GUIDANCE COUNSELOR Neutrophils 3.97 1.56 - 02/29/2020 DTL 6.45 2:05 PM CHILD GUIDANCE COUNSELOR x10(9)/L Lymphocytes 1.74 0.95 - 02/29/2020 DTL 3.07 2:05 PM CHILD GUIDANCE COUNSELOR x10(9)/L Monocytes 0.47 0.26 - 02/29/2020 DTL 0.81 2:05 PM CHILD GUIDANCE COUNSELOR x10(9)/L Eosinophils 0.11 0.03 - 02/29/2020 DTL 0.48 2:05 PM CHILD GUIDANCE COUNSELOR x10(9)/L Basophils 0.05 0.01 - 02/29/2020 DTL 0.08 2:05 PM CHILD GUIDANCE COUNSELOR x10(9)/L Specimen Anatomical Collection Method Collection Time Receive d Time (Source) Location / / Volume Laterality Blood (Blood, 02/29/2020 1:27 PM 02/28/19 21 1:52 Venous) CHILD GUIDANCE COUNSELOR PM CHILD GUIDANCE COUNSELOR Bakari Juárez Jr., M.D. LAB BLOOD ADD-ON Performing Organization Address City/State/[facility] Code Phon e Number [facility] - [address] [place] [address] Sedimentation Rate (02/29/2020 1:27 PM CHILD GUIDANCE COUNSELOR) Analysis Performed At Patho logist Time Signature Sedimentation 8 2 - 22 02/29/2020 DTL Rate, B mm/h 2:50 PM CHILD GUIDANCE COUNSELOR Specimen Anatomical Collection Method Collection Time Receive d Time (Source) Location / / Volume Laterality Blood (Blood, 02/29/2020 1:27 PM 02/28/19 21 1:52 Venous) CHILD GUIDANCE COUNSELOR PM CHILD GUIDANCE COUNSELOR Bakari Juárez Jr., M.D. LAB BLOOD ADD-ON Performing Organization Address City/State/[facility] Phon e Number [facility] - [address] [place] [address] [facility] CRP (C-Reactive Protein) (02/29/2020 1:27 PM CHILD GUIDANCE COUNSELOR) P athologist Signature C-Reactive <3.0 <=8.0 mg/L 02/29/2020 DTL Protein (CRP), 2:45 PM CHILD GUIDANCE COUNSELOR S Specimen Anatomical Collection Method Collection Time Receive d Time (Source) Location / / Volume Laterality Blood (Blood, 02/29/2020 1:27 PM 02/28/19 1:52 Venous) CHILD GUIDANCE COUNSELOR PM CHILD GUIDANCE COUNSELOR Bakari Juárez Jr., M.D. LAB BLOOD ADD-ON Performing Organization Address City/[facility]/ZIP Code Phon e Number [facility] - [address] [place] [address] LD (Lactate Dehydrogenase) (02/29/2020 1:27 PM CHILD GUIDANCE COUNSELOR) Analysis Performed At Patho logist Time Signature Lactate 125 122 - 222 02/29/2020 DTL Dehydrogenase U/L 2:45 PM CHILD GUIDANCE COUNSELOR (LD), S Specimen Anatomical Collection Method Collection Time Receive d Time (Source) Location / / Volume Laterality Blood (Blood, 02/29/2020 1:27 PM 02/28/19 1:52 Venous) CHILD GUIDANCE COUNSELOR PM CHILD GUIDANCE COUNSELOR Bakari Juárez Jr., M.D. LAB BLOOD NON ADD-ON Performing Organization Address City/[facility] Code Phon e Number [facility] - [address] NT-Pro B-Type Natriuretic Peptide (BNP) (02/29/2020 1:27 PM CHILD GUIDANCE COUNSELOR) P athologist Signature NT-Pro BNP 83 <=185 pg/mL 02/29/2020 DTL 2:45 PM CHILD GUIDANCE COUNSELOR Comment: NT-proBNP values less than 300 pg/mL hav e a 99% negative predictive value for excluding acute congestive heart jonathan lure. A cutoff of 1200 pg/mL for patients with an eGFR<60 yields a diagno stic sensitivity and specificity of 89% and 72% for acute congestive heart f ailure. ??A diagnostic NT-proBNP cutoff of 900 pg/mL has been suggested i n adults 50-75 years of age in the absence of renal failure. Specimen Anatomical Collection Method Collection Time Receive d Time (Source) Location / / Volume Laterality Blood (Blood, 02/29/2020 1:27 PM 02/28/19 1:52 Venous) CHILD GUIDANCE COUNSELOR PM CHILD GUIDANCE COUNSELOR Bakari Juárez Jr., M.D. LAB BLOOD ADD-ON Performing Organization Address City/[facility]/ZIP Code Phon e Number [facility] - [address] D-Dimer (02/29/2020 1:27 PM CHILD GUIDANCE COUNSELOR) athologist Signature D-Dimer, P <220 <=500 ng/mL 02/29/2020 DTL FEU 2:27 PM CHILD GUIDANCE COUNSELOR Comment: ----ADDITIONAL INFORMATION---- D-dimer values less than or equal to 500 ng/mL fibrinogen equivalent units (FEU) may be used in co njunction with clinical pre-test probability to exclude deep vein thrombosis (DVT) and/or pulmonary emboli sm (PE). Specimen Anatomical Collection Method Collection Time Receive d Time (Source) Location / / Volume Laterality Blood (Blood, 02/29/2020 1:27 PM 02/28/19 1:52 Venous) CHILD GUIDANCE COUNSELOR PM CHILD GUIDANCE COUNSELOR Bakari Juárez Jr., M.D. LAB BLOOD ADD-ON Performing Organization Address [facility] Code Phon e Number [facility] - [address] Alkaline Phosphatase (02/29/2020 1:27 PM CHILD GUIDANCE COUNSELOR) athologist Signature Alkaline 79 35 - 104 02/29/2020 DT Phosphatase, S U/L 2:45 PM CHILD GUIDANCE COUNSELOR Specimen Anatomical Collection Method Collection Time Receive d Time (Source) Location / / Volume Laterality Blood (Blood, 02/29/2020 1:27 PM 02/28/19 1:52 Venous) CHILD GUIDANCE COUNSELOR PM CHILD GUIDANCE COUNSELOR Frank Singh M.D. LAB BLOOD ADD-ON Performing Organization Address City/[facility]/ZIP Code Phon e Number [facility] - [address] [place], [place] [address] [place] [address] [facility] 200 [facility] ALT (Alanine Aminotransferase) (02/29/2020 1:27 PM CHILD GUIDANCE COUNSELOR) [facility] Method Time Signature Alanine 17 7 - 45 02/29/2020 DTL Aminotransferase U/L 2:45 PM CHILD GUIDANCE COUNSELOR (ALT), S Specimen Anatomical Collection Method Collection Time Receive d Time (Source) Location / / Volume Laterality Blood (Blood, 02/29/2020 1:27 PM 02/28/19 21 1:52 Venous) CHILD GUIDANCE COUNSELOR PM CHILD GUIDANCE COUNSELOR Frank Singh M.D. LAB BLOOD ADD-ON Performing Organization Address City/State/ZIP Code Phon e Number [facility] - [address] [place], [place] [address] [place] [address] [facility] [address] AST (Aspartate Aminotransferase) (02/29/2020 1:27 PM CHILD GUIDANCE COUNSELOR) [facility] Method Time Signature Aspartate 16 8 - 43 02/29/2020 DTL Aminotransferase U/L 2:45 PM CHILD GUIDANCE COUNSELOR (AST), S Specimen Anatomical Collection Method Collection Time Receive d Time (Source) Location / / Volume Laterality Blood (Blood, 02/29/2020 1:27 PM 02/28/19 21 1:52 Venous) CHILD GUIDANCE COUNSELOR PM CHILD GUIDANCE COUNSELOR Frank Singh M.D. LAB BLOOD ADD-ON Performing Organization Address City/State/ZIP Code Phon e Number [facility] - [id number] [place] [address] documented in this encounter Visit Diagnoses Diagnosis Mass Kidney Shortness Of Breath Lymphadenopathy Inguinal Dyspnea On Exertion documented in this encounter
--- OUTSIDE RECORDS SUMMARY | 2021-12-03 11:40 | XMS_ITS | Encounter Summary ---
:1955 Author Organization [facility] Address [address] [place] [address] Care Team Providers Name Role Phone Unavailable Primary Care Provider Unavailable Reason for Referral MRI/CAT/PET Scan (Routine) - Closed Specialty Diagnoses / Procedures Referred By Contact Refer red To Contact Radiology Diagnoses Shortness Of Breath Melanoma Hip Right (HCC) Bakari Juárez Jr., M.D. [facility] Procedures CT Abdomen Pelvis with IV Contrast [address] [place] [address] Referral ID Status Reason Start Date Expiration Date Visits Requ ested Visits Authorized [id number] Closed 02/29/2020 02/28/2021 1 1 OCOMPUTER SUPPORT SPECIALIST MRI/CAT/PET Scan (Routine) - Closed Specialty Diagnoses / Procedures Referred By Contact Refer red To Contact Radiology Diagnoses Shortness Of Breath Bakari Juárez Jr., M.D. [facility] Procedures CT Chest with IV Contrast [address] [place] [address] Referral ID Status Reason Start Date Expiration Date Visits Requ ested Visits Authorized [id number] Closed 02/29/2020 02/28/2021 1 1 OCOMPUTER SUPPORT SPECIALIST Outpatient (Routine) - Closed Specialty Diagnoses / Procedures Referred By Contact Refer red To Contact Diagnoses Dyspnea On Exertion Bakari Juárez Jr., M.D. [facility] Procedures Cardiopulmonary (VO2) Exercise Test [address] [place], [place] [address] Referral ID Status Reason Start Date Expiration Date Visits Requ ested Visits Authorized [id number] Closed 02/29/2020 02/28/2021 1 1 OCOMPUTER SUPPORT SPECIALIST Outpatient (Routine) - Closed Specialty Diagnoses / Procedures Referred By Contact Refer red To Contact Allergy and Immunology Diagnoses Asthma ([facility]) Bakari Juárez Jr. [facility] Horace [address] [place] [address] Referral ID Status Reason Start Date Expiration Date Visits Requ ested Visits Authorized [id number] Closed 02/29/2020 02/28/2021 1 1 OCOMPUTER SUPPORT SPECIALIST Reason for Visit Reason Comments Annual Exam Melanoma Would like second opinon Groin Pain Shortness of Breath When exercising and from sumanth m to room Appointment Request (Routine) - Closed Specialty Diagnoses / Procedures Referred By Contact Refer red To Contact General Internal Diagnoses General Medical Exam (GME) NOS Medicine Referral ID Status Reason Start Date Expiration Date Visits Requ ested Visits Authorized [id number] Closed 01/31/2020 01/30/2021 1 1 Encounter Details Date Type Department Care Team Description 02/29/2020 Comprehensive Visit Division of General Bakari Juárezt Renal (Primary Dx); Internal Medicine Horace Baumann Melanoma Skin ([facility]); in [address] Asthma ([facility]); [facility] Dyspnea On Exertion; [address] [facility], Shortness Of Breath; [place], [place] Melanoma Hip R ight ([facility]); [id number] Lymphadenopathy Inguinal [phone] Social History Tobacco Use Types Packs/Day Years [...] or relatives? How often do you attend roman catholic or More than 4 times per year 05/09/2021 yazdanism services? Do you belong to any clubs or No 05/09/2021 organizations such as roman catholic groups, unions, fraternal or athletic groups, [...] have completed or the highest Melanie, MEd, FIELD SUPERINTENDENT, KARLI) degree you have received? Sex Assigned at Date Recorded Female 01/10/2021 2:57 AM MICROCOMPUTER SUPPORT SPECIALIST documented as of this encounter Last Filed Vital Signs Vital Sign Reading Time Taken Comments Blood Pressure 126/84 02/29/2020 8:42 AM MICROCOMPUTER SUPPORT SPECIALIST Pulse 84 02/29/2020 8:42 AM MICROCOMPUTER SUPPORT SPECIALIST Temperature - - Respiratory Rate - - Oxygen Saturation - - Inhaled Oxygen Concentration - - Weight 59.3 kg (130 lb 11.7 oz) 02/29/2020 8:42 AM MICROCOMPUTER SUPPORT SPECIALIST Height 162.5 cm (5' 3.98) 02/29/2020 8:42 AM MICROCOMPUTER SUPPORT SPECIALIST Body Mass Index 22.46 02/29/2020 8:42 AM MICROCOMPUTER SUPPORT SPECIALIST documented in this encounter Consult Notes Bakari Juárez Jr., M.D. - 02/29/2020 9:00 AM CST SUBJECTIVE CHIEF COMPLAINT/REASON FOR VISIT Melanoma, dyspnea, inguinal lesion HISTORY OF PRESENT ILLNESS Ms. Carmichael is being seen today in the [facility] Consultative Medicine practice for evaluation of multiple concerns as outlined below. Renal cyst- patient would like to follow-up on a renal cyst she has on the right side of her kidney.She is asymptomatic without any hematuria back pain, weight loss, she has no personal or family history of renal cancer. The reviewing her labs recent CBC was okay. In reviewing her chart which is included below she had a renal cyst seen on dating back to at least 2010 on old imaging. It has always been read as benign and stable in size. Most likely because of just examiner variation in measurements it does fluctuate between 0.8cm to 1.1 HOWEVER It's not consisently getting larger and in fact shrinks at times (ex in 2012 goes from 0.9->0.8cm and again in 2014 to 2016 goes from 1.1cm to 1cm). US 2019: No hydroureteronephrosis or nephrolithiasis. Simple right renal cyst as above; no specific dedicated follow-up is required in this regard. Mri 2018: Kidneys: Right lower pole exophytic simple cyst, benign Mri 2017:1 cm exophytic right lower pole lesion most consistent with renal cyst MRI 2015: 1.1 cm exophytic cortical lesion again seen in the lower pole of the right kidney Minimal low level internal enhancement of the lesion. Long-term stability is strongly suggestive of a benign lesion. If continued follow-up is desired ultrasound should be considere MRI 2012: No significant change in the 0.8 cm exophytic cortical lesion in the lower pole of the right kidney 04/20/2012 US: Right Kidney:........ No hydronephrosis. 9.7 cm. There is a 0.9 cm hypoechoic lesion inthe lower pole, unchanged in size since 10/07/2010, and could represent a hemorrhagic cyst. Melanoma- she has a history of melanoma for which she was originally treated 4 years ago. It was on her right hip and she underwent resection without any additional treatment or evaluation necessary. She has been seen frequently by her travel insurance agent for skin checks and has been told everything is stable. She denies any weight loss, headaches, fevers. No new focal spinal tenderness. Right inguinal pain an enlarged lymph node report occasionally over the last 3-6 months having some pain in her right inguinal area and occasionally feeling some enlarged lymph nodes in the that seemedto go away and get better. Of note the patient is also status post right femoral hernia repair in she notes that when she is picking up heavy things or her grandchildren she sometimes will have some right groin pain otherwise though she typically does not have any right inguinal pain. She has never noticed a lump with any of these episodes or in between the episodes which she does comment on the sometimes being able to palpate small lymph nodes that come and go but never a tender mass or hernia typelesion that could be directly reduced. Has not noted symptoms or lesions with other provocative maneuvers like straining to have a bowel movement or coughing. In terms of the possible adenopathy she reports feeling it does come and go but it is new in the last 3 months or so. She has not noted any lymph nodes any place else. She denies fevers night sweats or weight loss. Dyspnea on exertion- she gets significant shortness of breath with anything greater than a brisk walk. She gets short of breath when going up just 1 or 2 flights of stairs. She denies chest pain jaw pain or left arm pain. She denies syncope. No lower extremity edema or paroxysmal nocturnal dyspnea. She sleeps flat which just 1 pillow without shortness of breath. Although she has a history of asthma which is discussed below she does not feel like it is her asthma that is causing her to be significantly short of breath. She has no history of DVT or PE. No recent major surgeries or travel. Asthma- 1st diagnosed in her early 20 has not had PFTs in many years. No issues with coughing at night. Typically asthma has been worsened by cats or if she is out working in other people's homes doing. With the pandemic she has largely been working from home she notes she uses a rescue inhaler 1 to 2times a month. Even when she is at peak she uses it at most 3 to 4 times a day. She has been previously prescribed a controller inhaler but does not like taking it and at this point in time is not taking a controller inhaler ALLERGIES: Not on File CURRENT MEDICATIONS: Current Outpatient Medications: ??? ascorbic acid, vitamin C, (VITAMIN C) 500 mg tablet, Take 2,000 mg by mouth daily., Disp: , Rfl: ??? cholecalciferol, vitamin D3, (VITAMIN D3 ORAL), [...] by mouth daily., Disp: , Rfl: ??? tretinoin (RETIN-A) 0.025 % cream, Apply 1 application topically as needed., Disp: , Rfl: ??? Ventolin HFA inhaler, Inhale 2 puffs as needed., Disp: , Rfl: ??? vitamin B complex (B COMPLEX ORAL), Take 1 tablet by mouth daily., Disp: , Rfl: No current facility-administered medications for this visit. Facility-Administered Medications Ordered in Other Visits: ??? iohexoL 300 mg iodine/mL solution 1-200 mL (OMNIPAQUE), 1-200 mL, intravenous, Once in imaging, Nenita Cifuentes M.D. ??? sodium chloride (PF) 0.9 % injection 1-100 mL, 1-100 mL, intravenous, Once, Nenita Cifuentes M.D. The following portions of the patient's history were reviewed and updated as appropriate: allergies,current medications, family history, medical history, social history, surgical history and problem list. REVIEW OF SYSTEMS All systems were reviewed and negative outside of that mentioned in the HPI or as noted below. OBJECTIVE BP 126/84 (BP Location: Left arm, Patient Position: Sitting, Cuff Size: Regular) Pulse 84 Ht 162.5 cm Wt 59.3 kg BMI 22.46 kg/m?? PHYSICAL EXAMINATION Constitutional: Cooperative; in no distress. Neck: Normal range of motion. . No JVD present. Carotid bruit is not present. Cardiovascular: Normal rate, regular rhythm, S1 normal, S2 normal, normal heart sounds and intact distal pulses. There is no edema. Exam reveals no gallop and no friction rub. No murmur heard. Pulmonary/Chest: Clear to auscultation bilaterally with normal respiratory rate and effort in able speak in full sentence Abdominal: Soft. Bowel sounds are normal. No distension and no mass. There is no hepatosplenomegaly.There is no tenderness. There is no rebound and no guarding. No hernia present with coughing Musculoskeletal: Normal range of motion. No reproducible tenderness along the cervical spine and no CVA tenderness. Normal range of motion in the hip bilaterally and no pain with internal or external rotation Lymphadenopathy: No enlarged cervical, supraclavicular, axillary or inguinal lymph nodes. Neurological: Normal strength and normal reflexes. No sensory deficit. Normal muscle tone. Coordination normal. Skin: Skin is warm. No rash noted. No erythema. Psychiatric: Normal mood and affect. Speech is normal and behavior is normal. Judgment and thought content normal. Cognition and memory are normal. ASSESSMENT / PLAN #1 Cyst Renal- Please see my HPI which documents in detail all imagining, but appears to be a simplebenign cyst on imaging and I suspect it is essentially stable in size over an 8 year span from 2010 until 2019. There is some reader variation but as noted in the HPI it doesn't get consistently largerand in fact at times shrinks however to assure true stability we will request outside images. The 1st time I was able to find it was in 2010 and thankfully that imaging was done here at [place] we will obtain the most recent imaging which was an ultrasound of 2019 and at that point will be able to do a 8year comparison after we ask for an overread. Although we typically order repeat imaging, I think inthis setting we can hold off if there is no blood in her urine, until she sees urology -obtain images with over read of outside images as above -she has scheduled follow-up with urology -UA to rule out hematuria -see above but may be able to discontinue further imaging on this lesion #2 Melanoma Skin (HCC)- dermatology referral is in and she is due to see them. She denies any specific new concerning lesions. It sounds like it was localized in originally diagnosed 4 years ago. See below but given the possible right inguinal symptoms I think for multiple reasons CT imaging to rule out any significant adenopathy is reasonable. She does not have any headaches are other significant changes this is just distant metastases -appointment with Dermatology later today Lymphadenopathy Inguinal History of femoral hernia repair- complex history of femoral hernia repair on the right side as wellas history of melanoma in the right hip/inguinal area so she has multiple reasons that have adenopathy there and I think it is important we do a CT to look at the lymph nodes in her abdomen/pelvis. It may be that she is having recurrence symptoms of her femoral hernia. I asked her the next time she has any pain to try to feel in see if she can feel a hernia. With provocative maneuvers on my exam I was not able to feel a hernia however a very small 1 that is intermittently protruding certainly could be causing some occasional pain when she is lifting and then also some occasional mild local inflammatory response. Do the 1 rule out any concerning things like lymphoma or local metastatic spread although seems fairly far off for 4 years from her melanoma diagnosis but in ddx. - LD (Lactate Dehydrogenase); Future; Expected date: 02/29/2020 - CRP (C-Reactive Protein); Future; Expected date: 02/29/2020 - Sedimentation Rate; Future; Expected date: 02/29/2020 - CT Abdomen Pelvis with IV Contrast; Future; Expected date: 02/29/2020 - follow-up with surgery and Dermatology as plan #3 Asthma (HCC)- she reports this is fairly mild and she does not think it is a major contributing factor to her dyspnea on exertion. That being said I do think we should get PFTs allergy testing and have her be seen in asthma clinic to make sure this is stable. If other evaluation of causes of dyspnea is unrevealing then I think the addition of a controlling inhaler could be very beneficial and may suggest she start to use her p.r.n. inhaler more frequently. Otherwise though by history appears mildand controlled that she only uses her rescue inhaler couple times a month, does not cough at night - Pulmonary Function Tests; Future; Expected date: 02/29/2020 - Allergy and Immunology - Asthma consult (clinic); Future; Expected date: After tests #4 Dyspnea On Exertion- she reports a somewhat Chronic insidious onset over 4 years, thus I do thinkCT chest to rule out any pulmonary fibrosis pattern adn echo to rule out heart or worsening valvulardisease. Or undiagnosed chf are reasonable however exam is fairly reassuring from those regards. Does not have left arm or jaw pain or chest pain however this could be an anginal equivalent for her, verses asthma that is not controlled. Appy in said it sounds like it has reached a fairly impressive standpoint I think she warrants a more extensive evaluation at this point in time looking for both cardiac and pulmonary causes. It seems to chronic to be in acute PE and if the D-dimer is positive I would actually favor going to a V/Q scan to look more for chronic thromboembolic disease rather than a CTpulmonary angio to look for acute PE - Cardiopulmonary (VO2) Exercise Test; Future; Expected date: 02/29/2020 - echocardiogram - CBC with Differential, Blood; Future; Expected date: 02/29/2020 - CT Chest with IV Contrast; Future; Expected date: 02/29/2020 - D-Dimer; Future; Expected date: 02/29/2020 - NT-Pro B-Type Natriuretic Peptide (BNP); Future; Expected date: 02/29/2020 Bakari Juárez Jr., M.D. PATIENT EDUCATION Ready to learn, no apparent learning barriers were identified; learning preferences include listening. Explained diagnosis and treatment plan; patient expressed understanding of the content. OCOMPUTER SUPPORT SPECIALIST documented in this encounter Plan of Treatment Scheduled Referrals Name Type Priority Associated Order Schedule Diagnoses Allergy and Outpatient Referral Routine Asthma (HCC) 1 Occurr ences Immunology - Asthma starting 02/29/2020 consult (clinic) until 02/28 documented as of this encounter Results CARDIOPULMONARY (VO2) EXERCISE TEST (03/07/2020 2:41 PM MICROCOMPUTER SUPPORT SPECIALIST) Specimen (Source) Anatomical Collection Method Collection Time Re ceived Time Location / / Volume Laterality 03/07/2020 1:52 PM MICROCOMPUTER SUPPORT SPECIALIST Narrative [facility] MERGE - 03/07/2020 3:39 PM MICROCOMPUTER SUPPORT SPECIALIST This result has an attachment that is no t available. See PDF For Result Procedure Note Derik Salazar M.D. - 03/07/2020For matting of this note might be different from the original. See PDF For Result Bakari Juárez Jr., M.D. CV STRESS PROCEDURES Performing Organization Address City/State/ZIP Code Phon e Number [facility] CV MERGE [facility] CV MERGE NA Pulmonary Function Tests (03/07/2020 10:50 AM MICROCOMPUTER SUPPORT SPECIALIST) P athologist Signature VC MAX PRE 2.27 L 03/07/2020 [facility] 4:11 PM MICROCOMPUTER SUPPORT SPECIALIST SUITE FVC 2.27 L 03/07/2020 [facility] 4:11 PM MICROCOMPUTER SUPPORT SPECIALIST SUITE FEV1 1.05 L 03/07/2020 [facility] 4:11 PM MICROCOMPUTER SUPPORT SPECIALIST SUITE FEV1/FVC 46.38 % 03/07/2020 [facility] 4:11 PM MICROCOMPUTER SUPPORT SPECIALIST SUITE BUV56-99% 0.43 L/s 03/07/2020 [facility] 4:11 PM MICROCOMPUTER SUPPORT SPECIALIST SUITE PEF PRE 4.40 L/s 03/07/2020 [facility] 4:11 PM MICROCOMPUTER SUPPORT SPECIALIST SUITE FET PRE 9.60 sec 03/07/2020 [facility] 4:11 PM MICROCOMPUTER SUPPORT SPECIALIST SUITE DLCO 15.04 ml/(min*mm 03/07/2020 [facility] Hg) 4:11 PM MICROCOMPUTER SUPPORT SPECIALIST SUITE DLCOc 16.75 ml/(min*mm 03/07/2020 [facility] Hg) 4:11 PM MICROCOMPUTER SUPPORT SPECIALIST SUITE HB 10.50 g(Hb)/dL 03/07/2020 [facility] 4:11 PM MICROCOMPUTER SUPPORT SPECIALIST SUITE VA 4.12 L 03/07/2020 [facility] 4:11 PM MICROCOMPUTER SUPPORT SPECIALIST SUITE P4ZtdAswk 97.00 % 03/07/2020 [facility] 4:11 PM MICROCOMPUTER SUPPORT SPECIALIST SUITE PulseRest 91.00 1/min 03/07/2020 [facility] 4:11 PM MICROCOMPUTER SUPPORT SPECIALIST SUITE M3CvbXfat 98.00 % 03/07/2020 [facility] 4:11 PM MICROCOMPUTER SUPPORT SPECIALIST SUITE PulseExer 123.00 1/min 03/07/2020 [facility] 4:11 PM MICROCOMPUTER SUPPORT SPECIALIST SUITE EXER TIME 3.00 min 03/07/2020 [facility] 4:11 PM MICROCOMPUTER SUPPORT SPECIALIST SUITE STEP HEIGHT 9.00 Inch 03/07/2020 [facility] PRE 4:11 PM MICROCOMPUTER SUPPORT SPECIALIST SUITE TLC 5.25 L 03/07/2020 [facility] 4:11 PM MICROCOMPUTER SUPPORT SPECIALIST SUITE VC PRE 2.27 L 03/07/2020 [facility] 4:11 PM MICROCOMPUTER SUPPORT SPECIALIST SUITE FRCPLETH 3.50 L 03/07/2020 [facility] PROVBASE 4:11 PM MICROCOMPUTER SUPPORT SPECIALIST SUITE RV 2.98 L 03/07/2020 [facility] 4:11 PM MICROCOMPUTER SUPPORT SPECIALIST SUITE RV % TLC PRE 56.82 % 03/07/2020 [facility] 4:11 PM MICROCOMPUTER SUPPORT SPECIALIST SUITE TLC% 110 % % 03/07/2020 [facility] 4:11 PM MICROCOMPUTER SUPPORT SPECIALIST SUITE % PRED RV 155 % % 03/07/2020 [facility] 4:11 PM MICROCOMPUTER SUPPORT SPECIALIST SUITE % PRED VC MAX 77 % % 03/07/2020 [facility] 4:11 PM MICROCOMPUTER SUPPORT SPECIALIST SUITE FVC% 77 % % 03/07/2020 [facility] 4:11 PM MICROCOMPUTER SUPPORT SPECIALIST SUITE FEV1% 46 % % 03/07/2020 [facility] 4:11 PM MICROCOMPUTER SUPPORT SPECIALIST SUITE % PRED 59 % % 03/07/2020 [facility] FEV1/FVC 4:11 PM MICROCOMPUTER SUPPORT SPECIALIST SUITE % PRED FEF 21 % % 03/07/2020 [facility] 25-75% 4:11 PM MICROCOMPUTER SUPPORT SPECIALIST SUITE % PRED PEF 80 % % 03/07/2020 [facility] 4:11 PM MICROCOMPUTER SUPPORT SPECIALIST SUITE DLCO% 78 % % 03/07/2020 [facility] 4:11 PM MICROCOMPUTER SUPPORT SPECIALIST SUITE DLCOc% 87 % % 03/07/2020 [facility] 4:11 PM MICROCOMPUTER SUPPORT SPECIALIST SUITE PRED TLC 4.79 03/07/2020 [facility] 4:11 PM MICROCOMPUTER SUPPORT SPECIALIST SUITE PRED RV 1.93 03/07/2020 [facility] 4:11 PM MICROCOMPUTER SUPPORT SPECIALIST SUITE PRED VC MAX 2.94 03/07/2020 [facility] 4:11 PM MICROCOMPUTER SUPPORT SPECIALIST SUITE PRED FVC 2.94 03/07/2020 [facility] 4:11 PM MICROCOMPUTER SUPPORT SPECIALIST SUITE PRED FEV 1 2.31 03/07/2020 [facility] 4:11 PM MICROCOMPUTER SUPPORT SPECIALIST SUITE PRED FEV1/FVC 79.0 03/07/2020 [facility] 4:11 PM MICROCOMPUTER SUPPORT SPECIALIST SUITE PRED FEF 2.05 03/07/2020 [facility] 25-75% 4:11 PM MICROCOMPUTER SUPPORT SPECIALIST SUITE PRED PEF 5.5 03/07/2020 [facility] 4:11 PM MICROCOMPUTER SUPPORT SPECIALIST SUITE PRED DLCO 19.3 03/07/2020 [facility] 4:11 PM MICROCOMPUTER SUPPORT SPECIALIST SUITE PRED DLCOc 19.3 03/07/2020 [facility] 4:11 PM MICROCOMPUTER SUPPORT SPECIALIST SUITE Specimen (Source) Anatomical Collection Method Collection Time Re ceived Time Location / / Volume Laterality 03/07/2020 10:50 AM MICROCOMPUTER SUPPORT SPECIALIST Narrative This result has an attachment that is no t available. Bakari Juárez Jr., M.D. PFT ORDERABLES Performing Organization Address City/State/ZIP Code Phon e Number [facility] SU[address] [place] S[facility] SUITE NA (ABNORMAL) CBC with Differential, Blood (02/29/2020 1:27 PM MICROCOMPUTER SUPPORT SPECIALIST) [facility] gist Method Time Signature Hemoglobin 10.5 (L) 11.6 - 02/29/2020 DTL 15.0 g/dL 2:05 PM MICROCOMPUTER SUPPORT SPECIALIST Hematocrit 32.5 (L) 35.5 - 02/29/2020 DTL 44.9 % 2:05 PM MICROCOMPUTER SUPPORT SPECIALIST Erythrocytes 3.37 (L) 3.92 - 02/29/2020 DTL 5.13 2:05 PM MICROCOMPUTER SUPPORT SPECIALIST x10(12)/L MCV 96.4 78.2 - 02/29/2020 DTL 97.9 fL 2:05 PM MICROCOMPUTER SUPPORT SPECIALIST RBC Distrib Width 12.2 12.2 - 02/29/2020 DTL 16.1 % 2:05 PM MICROCOMPUTER SUPPORT SPECIALIST Platelet Count 286 157 - 371 02/29/2020 DTL x10(9)/L 2:05 PM MICROCOMPUTER SUPPORT SPECIALIST Leukocytes 6.3 3.4 - 9.6 02/29/2020 DTL x10(9)/L 2:05 PM MICROCOMPUTER SUPPORT SPECIALIST Neutrophils 3.97 1.56 - 02/29/2020 DTL 6.45 2:05 PM MICROCOMPUTER SUPPORT SPECIALIST x10(9)/L Lymphocytes 1.74 0.95 - 02/29/2020 DTL 3.07 2:05 PM MICROCOMPUTER SUPPORT SPECIALIST x10(9)/L Monocytes 0.47 0.26 - 02/29/2020 DTL 0.81 2:05 PM MICROCOMPUTER SUPPORT SPECIALIST x10(9)/L Eosinophils 0.11 0.03 - 02/29/2020 DTL 0.48 2:05 PM MICROCOMPUTER SUPPORT SPECIALIST x10(9)/L Basophils 0.05 0.01 - 02/29/2020 DTL 0.08 2:05 PM MICROCOMPUTER SUPPORT SPECIALIST x10(9)/L Specimen Anatomical Collection Method Collection Time Receive d Time (Source) Location / / Volume Laterality Blood (Blood, 02/29/2020 1:27 PM 02/28/19 1:52 Venous) MICROCOMPUTER SUPPORT SPECIALIST PM MICROCOMPUTER SUPPORT SPECIALIST Bakari Juárez Jr., M.D. LAB BLOOD ADD-ON Performing Organization Address City/[facility]/ZIP [facility] Phon e Number [facility] - [address] [place], [place] [address] [place] [address] Sedimentation Rate (02/29/2020 1:27 PM MICROCOMPUTER SUPPORT SPECIALIST) Analysis Performed At Patho logist Time Signature Sedimentation 8 2 - 22 02/29/2020 DTL Rate, B mm/h 2:50 PM MICROCOMPUTER SUPPORT SPECIALIST Specimen Anatomical Collection Method Collection Time Receive d Time (Source) Location / / Volume Laterality Blood (Blood, 02/29/2020 1:27 PM 02/28/19 1:52 Venous) MICROCOMPUTER SUPPORT SPECIALIST PM MICROCOMPUTER SUPPORT SPECIALIST Bakari Juárez Jr., M.D. LAB BLOOD ADD-ON Performing Organization Address City/[facility]/ZIP Code Phon e Number [facility] [facility] - [id number] [place] [address] CRP (C-Reactive Protein) (02/29/2020 1:27 PM MICROCOMPUTER SUPPORT SPECIALIST) P athologist Signature C-Reactive <3.0 <=8.0 mg/L 02/29/2020 DTL Protein (CRP), 2:45 PM MICROCOMPUTER SUPPORT SPECIALIST S Specimen Anatomical Collection Method Collection Time Receive d Time (Source) Location / / Volume Laterality Blood (Blood, 02/29/2020 1:27 PM 02/28/19 1:52 Venous) MICROCOMPUTER SUPPORT SPECIALIST PM MICROCOMPUTER SUPPORT SPECIALIST Bakari Juárez Jr., M.D. LAB BLOOD ADD-ON Performing Organization Address City/[facility]/ZIP Code Phon e Number [facility] - [address] [place] [address] LD (Lactate Dehydrogenase) (02/29/2020 1:27 PM MICROCOMPUTER SUPPORT SPECIALIST) Analysis Performed At Patho logist Time Signature Lactate 125 122 - 222 02/29/2020 DTL Dehydrogenase U/L 2:45 PM MICROCOMPUTER SUPPORT SPECIALIST (LD), S Specimen Anatomical Collection Method Collection Time Receive d Time (Source) Location / / Volume Laterality Blood (Blood, 02/29/2020 1:27 PM 02/28/19 1:52 Venous) MICROCOMPUTER SUPPORT SPECIALIST PM MICROCOMPUTER SUPPORT SPECIALIST Bakari Juárez Jr., M.D. LAB BLOOD NON ADD-ON Performing Organization Address City/[facility] Phon e Number [facility] - [address] NT-Pro B-Type Natriuretic Peptide (BNP) (02/29/2020 1:27 PM MICROCOMPUTER SUPPORT SPECIALIST) athologist Signature NT-Pro BNP 83 <=185 pg/mL 02/29/2020 DTL 2:45 PM MICROCOMPUTER SUPPORT SPECIALIST Comment: NT-proBNP values less than 300 pg/mL [...] (Blood, 02/29/2020 1:27 PM 02/28/19 1:52 Venous) MICROCOMPUTER SUPPORT SPECIALIST PM MICROCOMPUTER SUPPORT SPECIALIST Bakari Juárez Jr., M.D. LAB BLOOD ADD-ON Performing Organization Address City/[facility] Phon e Number [facility] - [address] [place], [place] [address] [facility] [place], [place] [id number] [place] [address] [address] [facility] D-Dimer (02/29/2020 1:27 PM MICROCOMPUTER SUPPORT SPECIALIST) athologist Signature D-Dimer, P <220 <=500 ng/mL 02/29/2020 DTL FEU 2:27 PM MICROCOMPUTER SUPPORT SPECIALIST Comment: ----ADDITIONAL INFORMATION---- D-dimer values less than or equal to 500 ng/mL fibrinogen equivalent units (FEU) may be used in co njunction with clinical pre-test probability to exclude deep vein thrombosis (DVT) and/or pulmonary emboli sm (PE). Specimen Anatomical Collection Method Collection Time Receive d Time (Source) Location / / Volume Laterality Blood (Blood, 02/29/2020 1:27 PM 02/28/19 1:52 Venous) MICROCOMPUTER SUPPORT SPECIALIST PM MICROCOMPUTER SUPPORT SPECIALIST Bakari Juárez Jr., M.D. LAB BLOOD ADD-ON Performing Organization Address City/State/ZIP Code Phon e Number [facility] - [address] [place], [place] [address] [facility] [place] [address] [facility] [address] Abdomen Pelvis with IV Contrast (02/29/2020 1:24 PM MICROCOMPUTER SUPPORT SPECIALIST) Anatomical Region Laterality Modality Abdomen, Pelvis, Abdominal RST LOS, N/A Comp uted Tomography, Computed Abdominal ARZ LOS, Abdominal FLA LOS Norberto ography Specimen (Source) Anatomical Collection Method Collection Time Re ceived Time Location / / Volume Laterality 02/29/2020 1:35 PM MICROCOMPUTER SUPPORT SPECIALIST Impressions 02/29/2020 1:43 PM MICROCOMPUTER SUPPORT SPECIALIST 1. No CT evidence of metastatic disease in the abdomen or pelvis. 2. No CT evidence of right inguinal augusto ia or adenopathy. 3. Stable exophytic lesion at the lower pole of the right kidney which may represent a small hemorrhagic/proteinace ous cyst. Narrative 02/29/2020 1:43 PM MICROCOMPUTER SUPPORT SPECIALIST EXAM: ??CT ABDOMEN PELVIS WITH IV CONTRAST COMPARISON: ??MRI 12/28/2014 FINDINGS: ??1 cm exophytic lesion at the lower pole of the right kidney which is slightly increased in density is stable dating back to 08/31/2012 likely representing a small hemorrhagic/protein aceous cyst. Postoperative changes of right inguinal hernia repair. No CT evidence of recurrent hernia. No adenopathy in abdom en or pelvis including the inguinal regions bilaterally. Hepatic cysts. Cholelithiasis. Small eso phageal hiatal hernia. This examination was performed in conjun ction with a CT of the chest, which will be reported separately. Procedure Note Nenita Cifuentes M.D. - 02/29/2020Form atting of this note might be different from the original. EXAM: CT ABDOMEN PELVIS WITH IV CONTRAST COMPARISON: MRI 12/28/2014 FINDINGS: 1 cm exophytic lesion at the l ower pole of the right kidney which is slightly increased in density is stable dating back to 08/31/2012 likely representing a small hemorrhagic/protein aceous cyst. Postoperative changes of right inguinal hernia repair. No CT evidence of recurrent hernia. No adenopathy in abdom en or pelvis including the inguinal regions bilaterally. Hepatic cysts. Cholelithiasis. Small eso phageal hiatal hernia. This examination was performed in conjun ction with a CT of the chest, which will be reported separately. IMPRESSION: 1. No CT evidence of metastatic disease in the abdomen or pelvis. 2. No CT evidence of right inguinal augusto ia or adenopathy. 3. Stable exophytic lesion at the lower pole of the right kidney which may represent a small hemorrhagic/proteinace ous cyst. Bakari Juárez Jr., M.D. IMG CT PROCEDURES CT Chest with IV Contrast (02/29/2020 1:24 PM MICROCOMPUTER SUPPORT SPECIALIST) Anatomical Region Laterality Modality Chest, Thoracic RST LOS, Thoracic ARZ N/A Co mputed Tomography, Computed LOS, Thoracic ARZ LOS, Thoracic FLA Kristian graphy LOS Specimen (Source) Anatomical Collection Method Collection Time Re ceived Time Location / / Volume Laterality 02/29/2020 1:39 PM MICROCOMPUTER SUPPORT SPECIALIST Impressions 02/29/2020 1:51 PM MICROCOMPUTER SUPPORT SPECIALIST 1. Small foci of tree-in-bud and clustered micronodularity in the right upper lobe and left lower lobe consistent with infectious/inflammatory bronchiolitis. 2. Several tiny solid pulmonary nodules measuring up to 4 mm which are indeterminate. CT follow-up suggested in 2-3 months given the history of melanoma. 3. Mild bilateral mosaic attenuation whi ch likely reflects air trapping. Scattered peripheral endobronchial plugg ing. Findings are compatible with the history of asthma. Narrative 02/29/2020 1:51 PM MICROCOMPUTER SUPPORT SPECIALIST EXAM: CT CHEST WITH IV CONTRAST COMPARISON: No prior CT chest available at the time of dictation. FINDINGS: Small focus of tree-in-bud micronodulari ty in the right upper lobe (series 3 circa image 140). Slight additional ill- defined micronodularity in the apices. Focal slight clustered micronodularity i n the superior segment left lower lobe (image 262). Solid 4 mm lateral right mi ddle lobe nodule (image 332). Additional scattered tiny solid pulmonary nodules ( for example, right lower lobe images 306, 400; right upper lobe image 107; le ft upper lobe images 81, 89; left lower lobe image 294 posteriorly). Mild bilateral mosaic attenuation. Mild scattered peripheral endobronchial plugging. No bronchiectasis. Mild scatte red linear atelectasis and/or scarring in the lung bases. Mild biapical scarrin g. No thoracic lymphadenopathy. No effusion s. Tiny bilateral fat-containing Bochdalek hernias. Mild scattered atherosclerotic arterial calcifications including coronary arteries. Mild aortic valve calcificatio n. Small esophageal hiatal hernia. Advanced degenerative change bilateral s houlders with small ossified body posteriorly on the right. Mild degenerat gurwinder change upper thoracic spine. This examination was performed in conjun ction with a CT of the abdomen, which will be reported separately. Procedure Note Silvestre Ray M.D. - 02/29/2020Formattin g of this note might be different from the original. EXAM: CT CHEST WITH IV CONTRAST COMPARISON: No prior CT chest available at the time of dictation. FINDINGS: Small focus of tree-in-bud micronodulari ty in the right upper lobe (series 3 circa image 140). Slight additional ill- defined micronodularity in the apices. Focal slight clustered micronodularity i n the superior segment left lower lobe (image 262). Solid 4 mm lateral right mi ddle lobe nodule (image 332). Additional scattered tiny solid pulmonary nodules ( for example, right lower lobe images 306, 400; right upper lobe image 107; le ft upper lobe images 81, 89; left lower lobe image 294 posteriorly). Mild bilateral mosaic attenuation. Mild scattered peripheral endobronchial plugging. No bronchiectasis. Mild scatte red linear atelectasis and/or scarring in the lung bases. Mild biapical scarrin g. No thoracic lymphadenopathy. No effusion s. Tiny bilateral fat-containing Bochdalek hernias. Mild scattered atherosclerotic arterial calcifications including coronary arteries. Mild aortic valve calcificatio n. Small esophageal hiatal hernia. Advanced degenerative change bilateral s houlders with small ossified body posteriorly on the right. Mild degenerat gurwinder change upper thoracic spine. This examination was performed in conjun ction with a CT of the abdomen, which will be reported separately. IMPRESSION: 1. Small foci of tree-in-bud and cluster ed micronodularity in the right upper lobe and left lower lobe consistent with infectious/inflammatory bronchiolitis. 2. Several tiny solid pulmonary nodules measuring up to 4 mm which are indeterminate. CT follow-up suggested in 2-3 months given the history of melanoma. 3. Mild bilateral mosaic attenuation whi ch likely reflects air trapping. Scattered peripheral endobronchial plugg ing. Findings are compatible with the history of asthma. Bakari Juárez Jr., M.D. IMG CT PROCEDURES documented in this encounter Visit Diagnoses Diagnosis Cyst Renal - Primary Melanoma Skin (HCC) Asthma (HCC) Dyspnea On Exertion Shortness Of Breath Melanoma Hip Right (HCC) Lymphadenopathy Inguinal Shortness Of Breath Melanoma Hip Right (HCC) Dyspnea On Exertion documented in this encounter
--- OUTSIDE RECORDS SUMMARY | 2021-12-03 11:40 | XMS_ITS | Encounter Summary ---
:1955 Author Organization [facility] Address [address] [place] [address] Care Team Providers Name Role Phone Unavailable Primary Care Provider Unavailable Reason for Visit Reason Comments COVID Nurse Line Encounter Details Date Type Department Care Team Description 02/06/2020 Clinical Communication Division of General Prescheduli SCOTT garner Nurse Line Internal Medicine Provider in [place], [place] [address] [place] [address] Social History Tobacco Use Types Packs/Day Years Used Date Smoking Tobacco: Smoker, Current Status Unknown Alcohol Habits Answer Date Recorded How often [...] or relatives? How often do you attend orthodoxy or More than 4 times per year 05/09/2021 sabianist services? Do you belong to any clubs or No 05/09/2021 organizations such as orthodoxy groups, unions, fraternal or athletic groups, or [...] place to sleep or slept in a fdc (including now)? Sex Assigned at Date Recorded Female 01/10/2021 2:57 AM BRAN MIXER documented as of this encounter Miscellaneous Notes Telephone Encounter - Savage Aguilar - 02/06/2020 9:08 AM CST (RST and [place] [facility] locations only: If the patient is not having symptoms and is requesting COVID-19 Nasal Swab testing only, use the process listed in the COVID-19 Patient Requesting COVID PCR Test OTG COVID-19 [place] Patient Requesting COVID PCR Test). In the past 20 days have you had a swab for COVID that tested positive? no Route reply to: AKHIL WAGONER SCHEDULING Scheduling Contact Number: [phone] MIXER documented in this encounter Plan of Treatment Not on filedocumented as of this encounter Visit Diagnoses Not on filedocumented in this encounter
--- OUTSIDE RECORDS SUMMARY | 2021-12-03 11:40 | XMS_ITS | Encounter Summary ---
:1955 Author Organization [facility] Address [address] [place] [address] Care Team Providers Name Role Phone Unavailable Primary Care Provider Unavailable Encounter Details Date Type Department Care Team Description 10/19/2006 Hospital Encounter HX NO MAPPING Social History Tobacco Use Types Packs/Day Years Used Date Smoking Tobacco: Never Assessed Alcohol Habits Answer Date Recorded How often [...] or relatives? How often do you attend confucianist or More than 4 times per year 05/09/2021 jainism services? Do you belong to any clubs or No 05/09/2021 organizations such as confucianist groups, unions, fraternal or athletic groups, or [...] at Date Recorded Female 01/10/2021 2:57 AM CRIMINAL INVESTIGATIVE AGENT documented as of this encounter Plan of Treatment Not on filedocumented as of this encounter Visit Diagnoses Not on filedocumented in this encounter
--- OUTSIDE RECORDS SUMMARY | 2021-12-03 11:40 | XMS_ITS | Encounter Summary ---
:1955 Author Organization [facility] Address [address] [place] [address] Care Team Providers Name Role Phone Unavailable Primary Care Provider Unavailable Reason for Referral Outpatient (Routine) - Closed Specialty Diagnoses / Procedures Referred By Contact Refer red To Contact Dermatology Nathen Martinez M. D. [facility] [address] [place] [phone] Referral ID Status Reason Start Date Expiration Date Visits Requ ested Visits Authorized [id number] Closed 02/29/2020 02/28/2021 1 1 L MOLD BONDER Reason for Visit Outpatient (Routine) - Closed Specialty Diagnoses / Procedures Referred By Contact Ralph baires To Contact Dermatology Diagnoses Melanoma Skin (HCC) Bakari Juárez Jr., M.D. [facility] [address] [place] [phone] Referral ID Status Reason Start Date Expiration Date Visits Requ ested Visits Authorized [id number] Closed 02/12/2020 02/11/2021 1 1 Encounter Details Date Type Department Care Team Description 02/29/2020 Comprehensive Visit Department of Nathen Martinez Nevavi Multiple (Primary Dx); Dermatology jarred Mendoza M.D. Melanoma Skin (HCC); [place], [place] [address] [facility] Angioma Freitas; [address] [place], [place]; [place] [id number] Pityriasis [place] [id number] Social History Tobacco Use Types Packs/Day Years [...] or relatives? How often do you attend oriental orthodox or More than 4 times per year 05/09/2021 mandaen services? Do you belong to any clubs or No 05/09/2021 organizations such as oriental orthodox groups, unions, fraternal or athletic groups, or [...] have completed or the highest Melanie, MEd, ASSOCIATE GENETICS PROFESSOR, KARLI) degree you have received? Sex Assigned at Date Recorded Female 01/10/2021 2:57 AM SHELL MOLD BONDER documented as of this encounter Consult Notes Nathen Martinez M.D. - 02/29/2020 2:00 PM CST CHIEF COMPLAINT/REASON FOR VISIT: History of malignant melanoma, skin cancer screening evaluation, establishment of care, rash. HISTORY OF PRESENT ILLNESS Mrs. 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 She is here [facility] care for a full body skin cancer screening evaluation, as well as a relatively new rash. She notes pink scaly areas overlying the right axilla, as well as on the abdomen. She was prescribed triamcinolone, but has just received this prescription. She is not aware of any improvement or worsening with the topical. She notes no concerns regarding recurrence. She is otherwise feeling well. Detailed melanoma review of systems is otherwise negative. Denies any new nevi. Her original melanoma was t reated at [facility]. I reviewed most recent records from June [address] Tisha Tirpp, which appropriately recaps the details regarding her previous melanoma. REVIEW OF SYSTEMS Per HPI. MEDICAL HISTORY Notable for T1a malignant melanoma right lateral hip status post wide local excision in 2017. FAMILY HISTORY Notable for nonmelanoma skin cancer, BCC in father on the nose, mother on the ear, and recently brother is well. 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. She lives in [place]. She works for a company by the name of [employer], which contracts with [employer]. OBJECTIVE PHYSICAL EXAMINATION General: Well appearing, well nourished, no acute distress. Skin: A full-body skin examination performed today including the buttocks, but sparing the genitalia. Patient has a well-healed linear scar overlying the right anterolateral hip without any recurrent pigmentation or nodularity. She has an agminated collection of medium brown macules overlying the right anterior hip inferior to this site without any concerning clinical or dermatoscopic findings. A fewscattered benign-appearing melanocytic nevi. All less than 5 mm with reassuring dermatoscopic networks. She has medium brown macules over sun-exposed sites. Pierre type II without significant rollins.She has a couple thin oval, slightly scaly, light pink-orange plaques overlying the right anterior sh oulder/axilla and the right lower abdomen/inguinal area. MARQUISE was performed. No other concerning findings on examination. Freitas macules and papules scattered over the areas evaluated today, including aspot on the right vertex scalp pointed out by the patient. Lymph: No cervical, supraclavicular, axillary, or inguinal adenopathy. ASSESSMENT / PLAN #1 History of T1a malignant melanoma, right lateral hip, Aris level III, 0.46 mm Breslow depth, treated with wide local excision 2017 No evidence of recurrent disease to date. No adenopathy on examination. Encouraged skin cancer screening evaluations every 6-12 months going forward. Encouraged self-monitoring on a monthly basis. Encouraged sun protection, [id number] sunscreen use. #2 Benign findings including agminated nevus, right anterior hip, benign melanocytic nevi, lentigines and freitas angiomas Reassurance provider. Nothing further to do. Recommend self-monitoring. Discussed low malignant potential of the pigmented macules within the agminated nevus. #3 Scaly pink plaques right shoulder and abdomen Positive MARQUISE today with spaghetti and meatball-like fungal elements consistent with probable tinea versicolor. Will start ketoconazole 2% cream twice daily to the affected sites for the next 2 weeks. If not completely resolved, would recommend consideration of starting her previously prescribed triamcinolone 0.1% ointment b.i.d. for 2-3 weeks. All questions answered to apparent satisfaction today. #4 Followup in 6 months for full body skin cancer screening L MOLD BONDER documented in this encounter Plan of Treatment Scheduled Referrals Name Type Priority Associated Order Schedule Diagnoses Dermatology office Outpatient Referral Routine Ex pected: visit (clinic) 08/28/2020 (Approximate), Expires: 02/28/2023 documented as of this encounter Visit Diagnoses Diagnosis Nevi Multiple - Primary Melanoma Skin (HCC) Angioma Freitas Lentigo Pityriasis Versicolor documented in this encounter
--- OUTSIDE RECORDS SUMMARY | 2021-12-03 11:40 | XMS_ITS | Encounter Summary ---
:1955 Author Organization [facility] Address [address] [place] [address] Care Team Providers Name Role Phone Unavailable Primary Care Provider Unavailable Encounter Details Date Type Department Care Team Description 10/13/2005 - 10/14/2005 Hospital Encounter HX RST LISSY 6C Social History Tobacco Use Types Packs/Day Years [...] More than 4 times per year 05/09/2021 baptist services? Do you belong to any clubs [...] or slept in a long-term (including now)? 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
--- OUTSIDE RECORDS SUMMARY | 2021-12-03 11:40 | XMS_ITS | Encounter Summary ---
:1955 Author Organization [facility] Address [address] [place] [address] Care Team Providers Name Role Phone Unavailable Primary Care Provider Unavailable Reason for Referral MRI/CAT/PET Scan (Routine) - Closed Specialty Diagnoses / Procedures Referred By Contact Refer red To Contact Radiology Diagnoses Shortness Of Breath Melanoma Hip Right (HCC) Bakari Juárez Jr., M.D. [facility] Procedures CT Abdomen Pelvis with IV Contrast [address] [place] [address] Referral ID Status Reason Start Date Expiration Date Visits Requ ested Visits Authorized [id number] Closed 02/29/2020 02/28/2021 1 1 UAL ASSISTANT MRI/CAT/PET Scan (Routine) - Closed Specialty Diagnoses / Procedures Referred By Contact Refer red To Contact Radiology Diagnoses Shortness Of Breath Bakari Juárez Jr., M.D. [facility] Procedures CT Chest with IV Contrast [address] [place] [address] Referral ID Status Reason Start Date Expiration Date Visits Requ ested Visits Authorized [id number] Closed 02/29/2020 02/28/2021 1 1 UAL ASSISTANT Reason for Visit MRI/CAT/PET Scan (Routine) - Closed Specialty Diagnoses / Procedures Referred By Contact Refer red To Contact Radiology Diagnoses Shortness Of Breath Melanoma Hip Right (HCC) Bakari Juárez Jr., M.D. [facility] Procedures CT Abdomen Pelvis with IV Contrast [address] [place] [phone] Referral ID Status Reason Start Date Expiration Date Visits Requ ested Visits Authorized [id number] Closed 02/29/2020 02/28/2021 1 1 Encounter Details Date Type Department Care Team Description 02/29/2020 Hospital Encounter Department of Bakari Juáreznes s Of Breath; Radiology, Sanju Baumann M.D. Melanoma Hip Right (HCC) Building, in [address] [place] [address] [place] [id number] [place], [place] [phone] (Work) [phone] Social History Tobacco Use Types Packs/Day Years [...] More than 4 times per year 05/09/2021 zoroastrianism services? Do you belong to any clubs [...] of school Master's degree (e.g., M Gris, , 02/27/2020 you have completed or the highest Melanie, MEd, CODING SPEC, KARLI) degree you have received? Sex Assigned at Date Recorded Female 01/10/2021 2:57 AM VIRTUAL ASSISTANT documented as of this encounter Medications [...] 01/15/2021 needed. documented as of this encounter Nursing Notes Shara Kimball R.N. - 02/29/2020 12:30 PM CST Patient has a Creatinine/eGFR from an outside facility, [facility] The result is from February 07, 2020 eGFR result was >90 UAL ASSISTANT documented in this encounter Miscellaneous Notes Result Encounter Note - Bakari Juárez Jr., M.D. - 03/01/2020 4:29 PM VIRTUAL ASSISTANT Results reviewed. Additional labs including gram stain, ANCA and hypersensitivity panel added on. Have also advised patient to see Pulmonary and Infectious Disease. Results d/w patient UAL ASSISTANT documented in this encounter Plan of Treatment Not on filedocumented as of this encounter Procedures Procedure Name Priority Date/Time Associated Comments Diagnosis CT ABDOMEN PELVIS RAD - Routine 02/29/2020 1:24 Shortness Of Result s for this WITH IV CONTRAST (most inpatients PM VIRTUAL ASSISTANT Breath procedure are in and all Melanoma Hip the results outpatients) Right (HCC) section. CT CHEST WITH IV RAD - Routine 02/29/2020 1:24 Shortness Of Results for this CONTRAST (most inpatients PM VIRTUAL ASSISTANT Breath procedure a re in and all the results outpatients) section. documented in this encounter Results CT Abdomen Pelvis with IV Contrast (02/29/2020 1:24 PM VIRTUAL ASSISTANT) Anatomical Region Laterality Modality Abdomen, Pelvis, Abdominal RST LOS, N/A Comp uted Tomography, Computed Abdominal ARZ LOS, Abdominal FLA LOS Norberto ography Specimen (Source) Anatomical Collection Method Collection Time Re ceived Time Location / / Volume Laterality 02/29/2020 1:35 PM VIRTUAL ASSISTANT Impressions 02/29/2020 1:43 PM VIRTUAL ASSISTANT 1. No CT evidence of metastatic disease in the abdomen or pelvis. 2. No CT evidence of right inguinal augusto ia or adenopathy. 3. Stable exophytic lesion at the lower pole of the right kidney which may represent a small hemorrhagic/proteinace ous cyst. Narrative 02/29/2020 1:43 PM VIRTUAL ASSISTANT EXAM: ??CT ABDOMEN PELVIS WITH IV CONTRAST [...] Chest with IV Contrast (02/29/2020 1:24 PM VIRTUAL ASSISTANT) Anatomical Region Laterality Modality Chest, Thoracic RST LOS, Thoracic ARZ N/A Co mputed Tomography, Computed LOS, Thoracic ARZ LOS, Thoracic FLA Kristian graphy LOS Specimen (Source) Anatomical Collection Method Collection Time Re ceived Time Location / / Volume Laterality 02/29/2020 1:39 PM VIRTUAL ASSISTANT Impressions 02/29/2020 1:51 PM VIRTUAL ASSISTANT 1. Small foci of tree-in-bud and clustered [...] history of asthma. Narrative 02/29/2020 1:51 PM VIRTUAL ASSISTANT EXAM: CT CHEST WITH IV CONTRAST COMPARISON: [...] documented in this encounter Visit Diagnoses Diagnosis Shortness Of Breath Melanoma Hip Right (HCC) documented in this encounter Administered Medications Inactive Administered Medications - up to 3 most recent administrations Medication Order MAR Action Action Date Dose Rate Site iohexoL 300 mg iodine/mL solution Given 02/29/2020 1:05 PM VIRTUAL ASSISTANT 1 00 mL 1-200 mL (OMNIPAQUE) 1-200 mL, intravenous, Once in imaging, contrast, Starting on Julia 02/29/20 at 1226, For 1 dose, Imaging Protocol Orders, Dose per Radiant Medication Guidelines sodium chloride (PF) 0.9 % injection 1-1 00 mL Given 02/29/2020 1:04 PM VIRTUAL ASSISTANT 50 mL 1-100 mL, intravenous, Once, On Julia 02/29/20 at 1230, For 1 dose, Imaging Protocol Orders documented in this encounter
--- OUTSIDE RECORDS SUMMARY | 2021-12-03 11:40 | XMS_ITS | Encounter Summary ---
:1955 Author Organization [facility] Address [address] [place] [address] Care Team Providers Name Role Phone Unavailable Primary Care Provider Unavailable Reason for Visit Reason Comments Pre-visit Testing Orders Encounter Details Date Type Department Care Team Description 02/12/2020 Clinical Communication Department of Frank Singh Pr e-visit Testing Urology in M.D. Orders Dania, [address] [place], [place] [address] [facility] [address] [place], [place] [phone] (Work) [phone] Social History Tobacco Use Types Packs/Day Years [...] or slept in a [facility] (including now)? Sex Assigned at Date Recorded Female 01/10/2021 2:57 AM GASKET NOTCHER documented as of this encounter Plan of Treatment Not on filedocumented as of this encounter Results Alkaline Phosphatase (02/29/2020 1:27 PM GASKET NOTCHER) P athologist Signature Alkaline 79 35 - 104 02/29/2020 DTL Phosphatase, S U/L 2:45 PM GASKET NOTCHER Specimen Anatomical Collection Method Collection Time Receive d Time (Source) Location / / Volume Laterality Blood (Blood, 02/29/2020 1:27 PM 02/28/19 1:52 Venous) GASKET NOTCHER PM GASKET NOTCHER Frank Singh M.D. LAB BLOOD ADD-ON Performing Organization Address City/State/[facility] Code Phon e Number [facility] - [address] ALT (Alanine Aminotransferase) (02/29/2020 1:27 PM GASKET NOTCHER) Patholo gist Method Time Signature Alanine 17 7 - 45 02/29/2020 DTL Aminotransferase U/L 2:45 PM GASKET NOTCHER (ALT), S Specimen Anatomical Collection Method Collection Time Receive d Time (Source) Location / / Volume Laterality Blood (Blood, 02/29/2020 1:27 PM 02/28/19 1:52 Venous) GASKET NOTCHER PM GASKET NOTCHER Frank Singh M.D. LAB BLOOD ADD-ON Performing Organization Address City/State/[facility] Code Phon e Number [facility] - [address] AST (Aspartate Aminotransferase) (02/29/2020 1:27 PM GASKET NOTCHER) Patholo gist Method Time Signature Aspartate 16 8 - 43 02/29/2020 DTL Aminotransferase U/L 2:45 PM GASKET NOTCHER (AST), S Specimen Anatomical Collection Method Collection Time Receive d Time (Source) Location / / Volume Laterality Blood (Blood, 02/29/2020 1:27 PM 02/28/19 1:52 Venous) GASKET NOTCHER PM GASKET NOTCHER Frank Singh M.D. LAB BLOOD ADD-ON Performing Organization Address City/State/ZIP Code Phon e Number [facility] - [address] [place], [place] [address] [facility] [place] [address] Laboratories-[facility] [address] documented in this encounter Visit Diagnoses Diagnosis Mass Kidney - Primary documented in this encounter
--- OUTSIDE RECORDS SUMMARY | 2021-12-03 11:40 | XMS_ITS | Encounter Summary ---
:1955 Author Organization [facility] Address [address] [place] [address] Care Team Providers Name Role Phone Unavailable Primary Care Provider Unavailable Encounter Details Date Type Department Care Team Description 10/13/2005 Hospital Encounter HX NO MAPPING Social History [...] More than 4 times per year 05/09/2021 druze services? Do you belong to any clubs or No 05/09/2021 organizations such as islam groups, unions, fraternal or athletic groups, or [...] or slept in a fci (including now)? Sex Assigned at Date Recorded Female 01/10/2021 2:57 AM DIRECTOR PHARMACY SERVICES documented as of this encounter Plan of Treatment Not on filedocumented as of this encounter Visit Diagnoses Not on filedocumented in this encounter
--- OUTSIDE RECORDS SUMMARY | 2021-12-03 11:40 | XMS_ITS | Encounter Summary ---
:1955 Author Organization [facility] Address [address] [place] [address] Care Team Providers Name Role Phone Unavailable Primary Care Provider Unavailable Reason for Referral Outpatient (Routine) - Closed Specialty Diagnoses / Procedures Referred By Contact Refer red To Contact Urology Diagnoses Cyst Renal Bakari Juárez Jr., M.D. [facility] [address] [place] [address] Referral ID Status Reason Start Date Expiration Date Visits Requ ested Visits Authorized [id number] Closed 02/12/2020 02/11/2021 1 1 ER PRESS PUMPER Outpatient (Routine) - Closed Specialty Diagnoses / Procedures Referred By Contact Refer dequan To Contact Dermatology Diagnoses Melanoma Skin (HCC) Bakari Juárez Jr., M.D. [facility] [address] [place] [address] Referral ID Status Reason Start Date Expiration Date Visits Requ ested Visits Authorized [id number] Closed 02/12/2020 02/11/2021 1 1 ER PRESS PUMPER Reason for Visit Reason Comments Triage Encounter Details Date Type Department Care Team Description 02/05/2020 Clinical Communication Division of Fabiano Mccord, Triage Internal Medicine in [place], M.S. [place], [place] [address] [facility] [address] [place] [phone] [phone] Social History Tobacco Use Types Packs/Day Years [...] 05/09/2021 organizations such as sabianism groups, unions, fraternal or athletic groups, or [...] place to sleep or slept in a long term (including now)? Sex Assigned at Date Recorded Female 01/10/2021 2:57 AM FILTER PRESS PUMPER documented as of this encounter Miscellaneous Notes Telephone Encounter - Bakari Juárez Jr., M.D. - 02/12/2020 1:09 PM CST Orders accepted/reviewed. Thanks Bakari Juárez Jr., M.D. ER PRESS PUMPER Telephone Encounter - Juliette Peters M.D., M.S. - 02/05/2020 3:19 PM FILTER PRESS PUMPER [facility] CONSULTATIVE MEDICINE TRIAGE Decision: Approve - Patient not here Central Sensitization AND abdominal pain? No Consults: Dermatology: Biopsy proven Melanoma. Indication: Melanoma. Urology: General Urology consultation. Indication: follow up renal cyst. Other: Consults w/indication: general surgery- s/p inguinal hernia repar. Concern that it has recurred. . Triage does not establish a relationship with the patient. For any questions, please contact the patient's primary provider or the [facility] DOD. [id number] ER PRESS PUMPER Telephone Encounter - ReganMaribell dominguez Jesus - 02/05/2020 3:01 PM CST Megan Eid [id number] [id number] 64 years Gender: Female Who filled out ARF: Patient?? Request: I have medical symptoms without a clear diagnosis, I am diagnosed but want a second opinion or need help with treatment TOP THREE SYMPTOMS: MAIN SYMPTOM Diagnosis Melanoma 3 years ago. Renal cyst on kidney. Family history of breast/ovarian cancer. Description: I would like second opinion for Melanoma. I had surgery, and know that groin lump may be related. I have renal cyst on kidney - seen at [facility] for same. I have been unable to follow-up at [facility] for four years due to insurance change. Effective 02/15, I am able to return. Until then, I had all my care at [facility]. I would like to remain a part of [facility] also. Duration: Less than 6 months Previous Eval: No Institution: Have had: Diagnosis: Outcome: Expectations: I would prefer to remain in [facility] system, and get second opinion for melanoma. I have had routine skin checks. Renal cyst has not been checked for at least two years. Would like follow-up. Family history of breast/ovarian cancer. I would like physical which has been difficult to get through [facility] due to Covid. I have not had in person for quite a while. ADDITIONAL - 1 Femoral hernia Description: I have had two femoral surgeries at [facility], and pain in groin has returned. Duration: 6 to 12 months Previous Eval: No Institution: Have had: Diagnosis: Outcome: Expectations: Follow-up to make sure it's stable. ADDITIONAL - 2 Description: Duration: Previous Eval: Institution: Have had: Diagnosis: Outcome: Expectations: ADDITIONAL - 3 Description: Duration: Previous Eval: Institution: Have had: Diagnosis: Outcome: Expectations: ADDITIONAL - 4 Description: Duration: Previous Eval: Institution: Have had: Diagnosis: Outcome: Expectations: ADDITIONAL CONCERNS: ? CONDITIONS: Pain BOTHERED BY: Feeling nervous, anxious or on edge - Not being able to control or stop worrying - Little interest or pleasure in doing things - Feeling down, depressed, or helpless - Willing to speak to a mental health professional - PAIN LONGER THAN 3 MONTHS: Yes CARE PROVIDERS TO DATE: 2 LOWEST PAIN LAST 7 DAYS (0 to 10): 1 - Very minimal pain PAIN INTERFERENCE PAST 3 MONTHS (0 to 10): 5 PAIN AREAS: Lower BACK, Right SHOULDER, Right HIP, Left HIP, Left Upper LEG FATIGUE A MAIN REASON FOR VISIT: FATIGUE/HOW LONG: PROBLEMS WITH SLEEP: SLEEP PROBLEMS LAST 2 WEEKS: SLEEP APNEA DIAGNOSIS: Willing to attend [facility] or [facility] appointments - Definitely yes DAILY MEDS: 8 OPIOIDS: No CURRENT DIALYSIS: No CURRENT HEALTH/PAST YEAR: Very Good CONFIDENCE: Agree NOT AVAILABLE: I AM AVAILABLE ANY TIME PHONE: [phone] ER PRESS PUMPER documented in this encounter Plan of Treatment Scheduled Referrals Name Type Priority Associated Order Schedule Diagnoses Dermatology - Outpatient Referral Routine Melanoma Skin (HCC) Expected: Melanoma consult 02/29/2020 (clinic) (Approximate), Expires: 02/28/2021 Urology - Outpatient Referral Routine Cyst Renal Expected : Other/benign - kidney 2020 / ureter consult (Approximat e), (clinic) Expires: 02/28/2021 documented as of this encounter Results Urinalysis with Microscopic: Urine, Clean Catch (02/29/2020 3:14 PM FILTER PRESS PUMPER) [facility] Method Time Signature Source Midstream 02/29/2020 [facility] 3:14 PM FILTER PRESS PUMPER Appearance Normal Normal 02/29/2020 [facility] 3:41 PM FILTER PRESS PUMPER Osmolality, U 152 150 - 1150 02/29/2020 [facility] mOsm/kg 3:52 PM FILTER PRESS PUMPER pH, U 6.7 4.5 - 8.0 02/29/2020 [facility] 3:52 PM FILTER PRESS PUMPER Comment: ----ADDITIONAL INFORMATION---- This test was developed and its performa nce characteristics determined by [facility] in a manner co nsistent with CLIA requirements. This test has not bee n cleared or approved by the U.S. Food and Drug Admin istration. Glucose <2 0 - 15 mg/dL 02/29/2020 3:41 PM FILTER PRESS PUMPER [facility] Protein, U <4 <26 mg/dL 02/29/2020 3:41 PM FILTER PRESS PUMPER [facility] Comment: ----ADDITIONAL INFORMATION---- On 08/11/2016 the total protein assay me thod changed resulting in approximately a 15% increase in prote in values. Protein/Osmolality <0.26 <0.42 Ratio 02/29/2020 3:52 PM FILTER PRESS PUMPER [facility] Comment: ----ADDITIONAL INFORMATION---- On 08/11/2016 the total protein assay me thod changed resulting in approximately a 15% increase in prote in values. Predicted 24 Hr Protein <199 mg/24 h 02/29/2020 3:52 PM FILTER PRESS PUMPER SUHA Predicted Range <806 mg/24 h 02/29/2020 3:52 PM FILTER PRESS PUMPER R ROSALIA Hemoglobin, QL Negative Negative 02/29/2020 4:12 PM FILTER PRESS PUMPER RE NA Specimen Anatomical Collection Method Collection Time Receive d Time (Source) Location / / Volume Laterality Urine (Urine, 02/29/2020 3:14 PM 02/28/19 3:14 Clean Catch) FILTER PRESS PUMPER PM FILTER PRESS PUMPER Bakari Juárez Jr., M.D. LAB URINE ORDERABLES Performing Organization Address City/State/ZIP Code Phon e Number [facility] - [address] [place], [place] [address] [facility] [place] [address] Laboratories-[facility] [address] documented in this encounter Visit Diagnoses Diagnosis Hernia Inguinal - Primary Melanoma Skin (HCC) Cyst Renal documented in this encounter
--- OUTSIDE RECORDS SUMMARY | 2021-12-03 11:40 | XMS_ITS | Encounter Summary ---
:1955 Author Organization [facility] Address [address] [place] [address] Care Team Providers Name Role Phone Marquita Baumann M.D., Bakari Primary Care Provider Reason for Referral Outpatient (Routine) - Closed Specialty Diagnoses / Procedures Referred By Contact Refer red To Contact Infectious Diseases Diagnoses Abnormal Computed Tomography Bakari Ju[facility]rez Jr. [facility] [address] [place] [address] Referral ID Status Reason Start Date Expiration Date Visits V isits Requested Authorized [id number] Closed Specialty 03/01/2020 03/01/2021 1 1 Services Required ETIC ASSISTANT Outpatient (Routine) - Closed Specialty Diagnoses / Procedures Referred By Contact Refer red To Contact Pulmonary Medicine Diagnoses Abnormal Computed Tomography Bakari Juárez Jr., M.D. [facility] [address] [place] [address] Referral ID Status Reason Start Date Expiration Date Visits Requ ested Visits Authorized [id number] Closed 03/01/2020 03/01/2021 1 1 ETIC ASSISTANT Encounter Details Date Type Department Care Team Description 03/01/2020 Clinical Communication Division of Liseth Jerez Internal Medicine in Horace Baumann [place], [place] [address] [facility] [address] [place] [phone] Social History Tobacco Use Types Packs/Day Years [...] have completed or the highest Melanie, MEd, TUBE MAN, KARLI) degree you have received? Sex Assigned at Date Recorded Female 01/10/2021 2:57 AM DIETETIC ASSISTANT documented as of this encounter Miscellaneous Notes Telephone Encounter - Bakari Juárez Jr., M.D. - 03/01/2020 1:20 PM CST Called PT with results of CT scan. Given her insidious onset and exposure to animals making symptomsworse will have her be seen by Pulmonary and Infectious Disease for consideration of things the could be more insidious insight onset such as fungal, hypersensitivity pneumonitis, on given her asthma history will also get ANCA She confirmed a 2nd time no weight loss, night sweats, or hemoptysis. Please call patient to -schedule pulmonary consult -schedule infectious disease consult #1 Abnormal Computed Tomography - Pulmonary Medicine - Interstitial lung disease (ILD) consult (clinic); Future; Expected date: After tests - Hypersensitivity Pneum Panel, IgG,S; Future; Expected date: 03/01/2020 - Gram Stain; Future; Expected date: 03/01/2020 - Bacterial Culture, Aerobic + Susc, Resp; Future; Expected date: 03/01/2020 - Fungal Smear; Future; Expected date: 03/01/2020 - Fungal Culture, Routine; Future; Expected date: 03/01/2020 - Acid Fast Smear For Mycobacterium; Future; Expected date: 03/01/2020 - Mycobacterial Culture; Future; Expected date: 03/01/2020 - Infectious Disease - General consult (clinic); Future; Expected date: 03/01/2020 - ANCA (Antineutrophil Cytoplasmic Antibodies) Vasculitis Panel; Future; Expected date: 03/01/2020 ETIC ASSISTANT documented in this encounter Plan of Treatment Scheduled Orders Name Type Priority Associated Diagnoses Order S chedule Gram Stain Microbiology Routine Abnormal Computed Expected: 03/01/2020 Tomography (Approximate), Expires: 03/01/2023 Scheduled Referrals Name Type Priority Associated Order Schedule Diagnoses Pulmonary Medicine - Outpatient Routine Abnormal Computed 1 Occurrences Interstitial lung Referral Tomography starting 0 03/01/2020 disease (ILD) consult until 03/01/2023 (clinic) Infectious Disease - Outpatient Routine Abnormal Computed Ex pected: General consult Referral Tomography 03/01/2020 (clinic) (Approximate), Expires: 2023 documented as of this encounter Results Mycobacterial Culture (03/11/2020 12:04 PM DIETETIC ASSISTANT) [employer] Method Time Signature Mycobacterial No growth 04/22/2020 DTL Culture after 42 1:01 PM DIETETIC ASSISTANT days of incubation . Specimen Anatomical Collection Method Collection Time Receive d Time (Source) Location / / Volume Laterality Sputum (Sputum) 03/11/2020 12:04 03/11/19 21 PM DIETETIC ASSISTANT 12:04 PM DIETETIC ASSISTANT Comment: Specimen Source Site: Sputum Bakari Juráez Jr., M.D. LAB MICROBIOLOGY - GENERAL O SEMAJ Performing Organization Address City/[facility] Phon e Number [facility] - [address] [place], [place] [address] [facility] [place], [place] [phone] [place] [address] Acid Fast Smear For Mycobacterium (03/11/2020 12:03 PM DIETETIC ASSISTANT) [employer] Method Time Signature Acid Fast Smear Negative. 03/11/2020 DTL For Mycobacterium 11:03 PM DIETETIC ASSISTANT Specimen Anatomical Collection Method Collection Time Receive d Time (Source) Location / / Volume Laterality Sputum (Sputum) 03/11/2020 12:03 03/11/19 21 PM DIETETIC ASSISTANT 12:03 PM DIETETIC ASSISTANT Comment: Specimen Source Site: Sputum Narrative [facility] - 03/11/2020 11:03 PM DIETETIC ASSISTANT Mycobacteria specimen plated for culture, volume inadequate for optimal recovery. Bakari Juárez Jr., M.D. LAB MICROBIOLOGY - GENERAL Kelby CHA Performing Organization Address City/[facility] Code Phon e Number [facility] - [address] [place], [place] [address] [place] [address] Fungal Culture, Routine (03/11/2020 12:03 PM DIETETIC ASSISTANT) [employer] Method Time Signature Fungal No growth 04/04/2020 DTL Culture, after 24 1:01 PM DIETETIC ASSISTANT Routine days of incubation. Specimen Anatomical Collection Method Collection Time Receive d Time (Source) Location / / Volume Laterality Sputum (Sputum) 03/11/2020 12:03 03/11/19 21 PM DIETETIC ASSISTANT 12:03 PM DIETETIC ASSISTANT Comment: Specimen Source Site: Sputum Narrative [facility] - 04/04/2020 1:01 PM DIETETIC ASSISTANT Mycobacteria specimen plated for culture, volume inadequate for optimal recovery. Bakari Juárez Jr., M.D. LAB MICROBIOLOGY - GENERAL O SEMAJ Performing Organization Address City/[facility]/ZIP [facility] Phon e Number [facility] - [id number] [place] [address] Fungal Smear (03/11/2020 12:03 PM DIETETIC ASSISTANT) P athologist Signature Fungal Smear Negative. 03/11/2020 DT 4:35 PM DIETETIC ASSISTANT Specimen Anatomical Collection Method Collection Time Receive d Time (Source) Location / / Volume Laterality Sputum (Sputum) 03/11/2020 12:03 03/11/19 21 PM DIETETIC ASSISTANT 12:03 PM DIETETIC ASSISTANT Comment: Specimen Source Site: Sputum Bakari Juárez Jr., M.D. LAB MICROBIOLOGY - GENERAL O SEMAJ Performing Organization Address [facility] Phon e Number [facility] - [id number] [place] [address] ANCA (Antineutrophil Cytoplasmic Antibodies) Vasculitis Panel (02/29/2020 1:23 PM DIETETIC ASSISTANT) Patholo gist Method Time Signature Myeloperoxidase Ab, <0.2 <0.4 03/04/2020 [facility] S (Negative 2:21 PM DIETETIC ASSISTANT ) U Proteinase 3 Ab <0.2 <0.4 03/04/2020 [facility] (PR3), S (Negative 2:21 PM DIETETIC ASSISTANT ) U Specimen Anatomical Collection Method Collection Time Receive d Time (Source) Location / / Volume Laterality Blood (Blood, 02/29/2020 1:23 PM 03/04/19 21 8:16 Venous) DIETETIC ASSISTANT AM DIETETIC ASSISTANT Bakari Juárez Jr., M.D. LAB BLOOD ADD-ON Performing Organization Address City/[facility]/ZIP [facility] Phon e Number [facility] [address] [place], [place] [address] [facility] [place] [address] Laboratory Medicine and Pathology [address] [place] Hypersensitivity Pneum Panel, IgG,S (02/29/2020 1:23 PM DIETETIC ASSISTANT) athologist Signature Aspergillus 74.1 <=102 mg/L 03/05/2020 [facility] fumigatus, IgG 3:03 PM DIETETIC ASSISTANT Ab, S Comment: ----ADDITIONAL INFORMATION---- This test was developed and its performa nce characteristics determined by [facility] in a manner co nsistent with CLIA requirements. This test has not bee n cleared or approved by the U.S. Food and Drug Admin istration. Micropolyspora faeni, IgG Ab, S <2.0 <=13.2 mg/L 2020 3:03 PM DIETETIC ASSISTANT [facility] Comment: ----ADDITIONAL INFORMATION---- This test was developed and its performa nce characteristics determined by [facility] in a manner co nsistent with CLIA requirements. This test has not bee n cleared or approved by the U.S. Food and Drug Admin istration. Thermoactinomyces vulgaris, IgG Ab 9.0 <=23.9 mg/L 3:03 PM DIETETIC ASSISTANT [facility] Comment: ----ADDITIONAL INFORMATION---- This test was developed and its performa nce characteristics determined by [facility] in a manner co nsistent with CLIA requirements. This test has not bee n cleared or approved by the U.S. Food and Drug Admin istration. Specimen Anatomical Collection Method Collection Time Receive d Time (Source) Location / / Volume Laterality Blood (Blood, 02/29/2020 1:23 PM 03/04/19 21 Venous) DIETETIC ASSISTANT 10:57 AM DIETETIC ASSISTANT Bakari Juárez Jr., M.D. LAB BLOOD ADD-ON Performing Organization Address City/State/ZIP Code Phon e Number [facility] [address] [place] [address] CENTER [facility] [place] [address] Laboratory Medicine and Pathology [address] [place] documented in this encounter Visit Diagnoses Diagnosis Abnormal Computed Tomography - Primary Abnormal Computed Tomography documented in this encounter Additional Health Concerns Infection Onset Date Last Indicated Resolved Time COVID19 Pending 03/04/2020 03/04/2020 03/04/2020 10:16 PM DIETETIC ASSISTANT documented as of this encounter Care Teams Preparation Room Manager Relationship Specialty Start Date End Date Bakari Juárez Jr., M.D. PCP - General Internal Medicine 03/08/20 03/08/20 [address] [place] [address] documented as of this encounter
--- OUTSIDE RECORDS SUMMARY | 2021-12-03 11:40 | XMS_ITS | Encounter Summary ---
:1955 Author Organization [facility] Address [address] [place] [address] Care Team Providers Name Role Phone Unavailable Primary Care Provider Unavailable Reason for Visit Reason Comments Allergy Testing Outpatient (Routine) - Closed Specialty Diagnoses / Procedures Referred By Contact Refer red To Contact Diagnoses Asthma (HCC) Bakari Juárez Jr., M.D. [facility] Procedures Northern Skin Test [address] [place] [address] Referral ID Status Reason Start Date Expiration Date Visits Requ ested Visits Authorized [id number] Closed 02/29/2020 02/28/2021 1 1 Encounter Details Date Type Department Care Team Description 02/29/2020 Clinical Support Division of Allergic Ana Maria Juárez Jr., M.D. [address] [place] [phone] Asthma (HCC) Diseases in [place], Jose Recio R.N. [address] [place] [phone] [place] Bettina Calzada R.N. [address] [place] [phone] [place] [phone] Social History Tobacco Use Types Packs/Day [...] More than 4 times per year 05/09/2021 orthodoxy services? Do you belong to any clubs [...] have completed or the highest Melanie, MEd, RN FLOAT, KARLI) degree you have received? Sex Assigned at Date Recorded Female 01/10/2021 2:57 AM SAFETY TECH documented as of this encounter Procedure Notes Jose Recio R.N. - 02/29/2020 11:30 AM CST Panel Skin Tests Clinical Support from 02/29/2020 in Division of Allergic Diseases in [place], [place] Controls Prick Control 0 Histamine (15 min W/F) 6x6f Glycerine (15 min W/F) 0 Basic Panel Cat Hair 12w21wd Cockroach mix (Swedish & Romansh) 4x4f Dog AP 10x10f D.F. Mite 0 D. P Mite 0 Horse 0 Alternaria Alternata 27g45gh Aspergillus Fumigatus 0 Bipolaris Sorokiniana 0 Chaetomium Globosum 0 Curvularia Spicifera (Drechstera Spidfera) 5x5f Epicoccum 5x5f Fusarium 5x5f Geotrichum 3x3f Helminthosporium 0 Hormodendrum/Clad (Cladostorium Cladosporioides) 0 Mucor Racemosus 0 Penicillium Mix 5x6f Phoma Herbarum 6x6f Pullularia 5x5f Rhizopus Stolonifer 0 Stemphylium Solani 7x9f Northern Panel [place], White 0 Kofi, White 0 Birch 3x4f [place], Red 0 Alliance, Eastern 4x4f Elm, Swedish 4x4f Maple 5x5f Roselle, Black 0 [place] 0 [place], White 0 [place], Swedish 0 Bermuda 0 [place] Blue 9x10f Orchard 10x10f Leonardo 9x9f Kochia 6x6f [place] 0 Tate Elder, Burweed 0 Mugwort, Common 0 Plantain, Hungarian 0 Rough Pigweed 5x5f Malian thistle 8x7f Short Ragweed 10x8f [place], Sheep Red 0 Skin test positive. Clinical correlation recommended and allergy consult, if clinically indicated. TY TECH documented in this encounter Miscellaneous Notes Addendum Note - Jose Recio R.N. - 02/29/2020 11:30 AM SAFETY TECH Addended by: JOSE RECIO on: 02/29/2020 11:58 AM Modules accepted: Level of Service TY TECH documented in this encounter Plan of Treatment Not on filedocumented as of this encounter Visit Diagnoses Diagnosis Asthma (HCC) documented in this encounter
--- OUTSIDE RECORDS SUMMARY | 2021-12-03 11:40 | XMS_ITS | Encounter Summary ---
:[address] [facility] Address [address] [place] [address] Care Team Providers Name Role Phone Unavailable Primary Care Provider Unavailable Encounter Details Date Type Department Care Team Description 10/15/2006 - Hospital Encounter HX RST UROLOGY UNIT 5-1 10/17/2006 Social History Tobacco Use Types Packs/Day Years [...] or relatives? How often do you attend alevism or More than 4 times per year 05/09/2021 sabianist services? Do you belong to any clubs or No 05/09/2021 organizations such as alevism groups, unions, fraternal or athletic groups, or [...] or slept in a intermediate (including now)? 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 documented in this encounter Results V&IRAD Vascular & Intervention (10/15/2006 1:14 PM CDT) Anatomical Region Laterality Modality N/A X-Ray Angiography Specimen (Source) Anatomical Collection Method Collection Time Re ceived Time Location / / Volume Laterality 10/15/2006 1:14 PM CDT Narrative 10/15/2006 2:16 PM CDT 15-Oct-2006 13:14:00 ??Exam: V&IRAD Vascular & Intervention Indications: URETERAL STENT PLACEMENT^UR ETERAL OBSTRUCTION ORIGINAL REPORT - 15-Oct-2006 14:16:00 FINDINGS: Focal narrowing of the distal right ureter with proximal dilatation of the upper collecting system. Successful placement of 8Fr x 24 cm ureteral stent with temporary 8Fr pigtail right nephrostomy tube. TECHNIQUE: Procedure risks and goals dis cussed in detail with the patient. She agreed to proceed. Under sterile conditions and with fluoroscopic guidance, a Chiba needle was placed in the dilated right upper collecting system. This was conver melina using a Brinnon system for access to a middle pole calyx. Using catheter guidewire technique was able to place a guidewire across the focal narrowing in the dist al right ureter. The tip of the guidewir e and catheter is in the bladder. Then using a 9Fr sheath, I was able to insert an 8Fr x 24 cm long ureteral stent. A temporary 8Fr right nephrostomy tube was als o placed. Because of the two week durati on of obstruction of the right collecting system, the patient should have the nephrostomy tube drained to a bag for a day. It should then be capped at least for a day or two. Recommend on this coming that the patient return to Interventional Radiology for nephrostogram to see if the stent is patent. It is important that the patient have been able to tolerate capping of the tube ove r this weekend at least for 24 to 48 hours. If the stent is patent on Wednesday, we may then be able to remove the nephrostomy tube. Patient tolerated procedure well. No immediate complications. PREPROCEDURE: The patient's identity, th e nature of the procedure and the site of the procedure were verified with the patient in the presence of the assisting nurse. The risks and benefits of the proce dure were discussed with the patient, wh o understood and agreed to proceed. The roles and responsibilities of care team members, residents, and fellows were discussed. Conscious sedation was administered by the sedation nurse under my supervision. Electronically signed by: ?? Schuyler Britt MD. ??[id number] 15-Oct-2006 14 :16 Procedure Note Andree Britt M.D. - 05/17/2017Forma tting of this note might be different from the original. 15-Oct-2006 13:14:00 Exam: V&IRAD Vascul ar & Intervention Indications: URETERAL STENT PLACEMENT^UR ETERAL OBSTRUCTION ORIGINAL REPORT - 15-Oct-2006 14:16:00 FINDINGS: Focal narrowing of the distal right ureter with proximal dilatation of the upper collecting system. Successful placement of 8Fr x 24 cm ureteral stent with temporary 8Fr pigtail right nephrostomy tube. TECHNIQUE: Procedure risks and goals dis cussed in detail with the patient. She agreed to proceed. Under sterile conditions and with fluoroscopic guidance, a Chiba needle was placed in the dilated right upper collecting system. This was converted using a Brinnon system for access to a middle pole calyx. Using catheter guidewire technique was able to place a guidewire across the focal narrowing in the distal right ureter. The tip of the guidewire and catheter is in the bladder . Then using a 9Fr sheath, I was able to insert an 8Fr x 24 cm long ureteral stent. A temporary 8Fr right nephrostomy tube was also placed. Because of the two week duration of obstruction of the right collecting syst em, the patient should have the nephrostomy tube drained to a bag for a day. It should then be capped at least for a day or two. Recommend on this coming Wednesday that the patient return to Interventional Radiology for n ephrostogram to see if the stent is patent. It is important that the patient have been able to tolerate capping of the tube over this weekend at least for 24 to 48 hours. If the stent is patent on Wednesday, we may then be able to remove the nephrostomy tube. Patient tolerated procedure well. No immediate complications. PREPROCEDURE: The patient's identity, th e nature of the procedure and the site of the procedure were verified with the patient in the presence of the assisting nurse. The risks and benefits of the procedure were discussed with the patient, who understo od and agreed to proceed. The roles and responsibilities of care team members, residents, and fellows were discussed. Conscious sedation was administered by the sedation nurse under my supervision. Electronically signed by: Schuyler Britt MD. [id number] 15-Oct-2006 14:1 6 Ryne BARON IR PROCEDURES documented in this encounter Visit Diagnoses Not on filedocumented in this encounter
--- OUTSIDE RECORDS SUMMARY | 2021-12-03 11:40 | XMS_ITS | Encounter Summary ---
:1955 Author Organization [facility] Address [address] [place] [address] Care Team Providers Name Role Phone Unavailable Primary Care Provider Unavailable Encounter Details Date Type Department Care Team Description 02/29/2020 Hospital Encounter Department of Laboratory Ana Maria Juárez Jr., Cyst Renal Medicine and Pathology, [place]. [address] [facility] [address] [place] [address] [phone] Social History Tobacco Use Types Packs/Day Years [...] or relatives? How often do you attend synagogue or More than 4 times per year 05/09/2021 samaritan services? Do you belong to any clubs or No 05/09/2021 organizations such as synagogue groups, unions, fraternal or athletic groups, or [...] have completed or the highest Melanie, MEd, EXTRACTION OPERATOR, KARLI) degree you have received? 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 URINALYSIS WITH Routine 02/29/2020 3:14 PM Cyst Renal Result s for this MICROSCOPIC ELECTRIC ORGAN CHECKER procedure are i n the results section. documented in this encounter Results Microscopic Automated (02/29/2020 3:14 PM ELECTRIC ORGAN CHECKER) P athologist Signature Microscopy Normal 02/29/2020 4:12 SUHA PM ELECTRIC ORGAN CHECKER Specimen Anatomical Collection Method Collection Time Receive d Time (Source) Location / / Volume Laterality Urine 02/29/2020 3:14 PM 3:14 ELECTRIC ORGAN CHECKER PM ELECTRIC ORGAN CHECKER Bakari Juárez Jr., M.D. LAB URINE ORDERABLES Performing Organization Address City/State/ZIP Code Phon e Number [facility] - [address] [place], [place] [address] [facility] [place] [address] Laboratories-[facility] [address] Urinalysis with Microscopic: Urine, Clean Catch (02/29/2020 3:14 PM ELECTRIC ORGAN CHECKER) [facility] Method Time Signature Source Midstream 02/29/2020 SUHA 3:14 PM ELECTRIC ORGAN CHECKER Appearance Normal Normal 02/29/2020 SUHA 3:41 PM ELECTRIC ORGAN CHECKER Osmolality, U 152 150 - 1150 02/29/2020 SUHA mOsm/kg 3:52 PM ELECTRIC ORGAN CHECKER pH, U 6.7 4.5 - 8.0 02/29/2020 SUHA 3:52 PM ELECTRIC ORGAN CHECKER Comment: ----ADDITIONAL INFORMATION---- This test was developed and its performa nce characteristics determined by [facility] in a manner co nsistent with CLIA requirements. This test has not bee n cleared or approved by the U.S. Food and Drug Admin istration. Glucose <2 0 - 15 mg/dL 02/29/2020 3:41 PM ELECTRIC ORGAN CHECKER SUHA Protein, U <4 <26 mg/dL 02/29/2020 3:41 PM ELECTRIC ORGAN CHECKER SUHA Comment: ----ADDITIONAL INFORMATION---- On 08/11/2016 the total protein assay me thod changed resulting in approximately a 15% increase in prote in values. Protein/Osmolality <0.26 <0.42 Ratio 02/29/2020 3:52 PM ELECTRIC ORGAN CHECKER SUHA Comment: ----ADDITIONAL INFORMATION---- On 08/11/2016 the total protein assay me thod changed resulting in approximately a 15% increase in prote in values. Predicted 24 Hr Protein <199 mg/24 h 02/29/2020 3:52 PM ELECTRIC ORGAN CHECKER SUHA Predicted Range <806 mg/24 h 02/29/2020 3:52 PM ELECTRIC ORGAN CHECKER R ROSALIA Hemoglobin, QL Negative Negative 02/29/2020 4:12 PM ELECTRIC ORGAN CHECKER RE NA Specimen Anatomical Collection Method Collection Time Receive d Time (Source) Location / / Volume Laterality Urine (Urine, 02/29/2020 3:14 PM 02/28/19 3:14 Clean Catch) ELECTRIC ORGAN CHECKER PM ELECTRIC ORGAN CHECKER Bakari Juárez Jr., M.D. LAB URINE ORDERABLES Performing Organization Address City/State/ZIP Code Phon e Number [facility] - [address] [place], [place] [address] [facility] [place] [address] [facility] [address] documented in this encounter Visit Diagnoses Diagnosis Cyst Renal documented in this encounter
--- OUTSIDE RECORDS SUMMARY | 2021-12-03 11:40 | XMS_ITS | Encounter Summary ---
:1955 Author Organization [facility] Address [address] [place] [address] Care Team Providers Name Role Phone Unavailable Primary Care Provider Unavailable Encounter Details Date Type Department Care Team Description 10/14/2010 Hospital Encounter HX NO MAPPING Social History [...] or slept in a fpc (including now)? Sex Assigned at Date Recorded Female 01/10/2021 2:57 AM EDGE FINISHER documented as of this encounter Plan of Treatment Not on filedocumented as of this encounter Visit Diagnoses Not on filedocumented in this encounter
--- OUTSIDE RECORDS SUMMARY | 2021-12-03 11:40 | XMS_ITS | Encounter Summary ---
:1955 Author Organization [facility] Address [address] [place] [address] Care Team Providers Name Role Phone Unavailable Primary Care Provider Unavailable Reason for Referral Outpatient (Routine) - Closed Specialty Diagnoses / Procedures Referred By Contact Refer red To Contact Diagnoses Asthma (HCC) Bakari Juárez Jr., M.D. [facility] Procedures Northern Skin Test [address] [place] [address] Referral ID Status Reason Start Date Expiration Date Visits Requ ested Visits Authorized [id number] Closed 02/29/2020 02/28/2021 1 1 R MACHINE TENDER Outpatient (Routine) - Closed Specialty Diagnoses / Procedures Referred By Contact Refer red To Contact Diagnoses Asthma (HCC) Bakari Juárez Jr., M.D. [facility] Procedures Basic Skin Test [address] [place] [address] Referral ID Status Reason Start Date Expiration Date Visits Requ ested Visits Authorized [id number] Closed 02/29/2020 02/28/2021 1 1 R MACHINE TENDER Encounter Details Date Type Department Care Team Description 02/29/2020 Clinical Communication Division of [facility] jarred Baumann M.D. [place], [place] [address] [facility] [address] [place] [id number] [phone] Social History Tobacco Use Types Packs/Day Years [...] have completed or the highest Melanie, MEd, [employer] MACHINE OPERATOR, KARLI) degree you have received? Sex Assigned at Date Recorded Female 01/10/2021 2:57 AM FIBER MACHINE TENDER documented as of this encounter Miscellaneous Notes Telephone Encounter - Bakari Juárez Jr., M.D. - 02/29/2020 10:58 AM CST Signed, thank you R MACHINE TENDER Telephone Encounter - Dedrick Doug Askew - 02/29/2020 10:[address] Juárez I have pended some skin testing orders to you that are required for the patient to be seen in allergy. Could you verify and sign them please? Thank you, Doug R MACHINE TENDER documented in this encounter Plan of Treatment Scheduled Orders Name Type Priority Associated Diagnoses Order S chedule Basic Skin Test Procedures Routine Asthma (HCC) Expected: (Approximate), Expires: 02/28/2023 Northern Skin Test Procedures Routine Asthma (HCC) Expected: 02/29/2020 (Approximate), Expires: 02/28/2023 documented as of this encounter Visit Diagnoses Diagnosis Asthma (HCC) - Primary documented in this encounter
--- OUTSIDE RECORDS SUMMARY | 2021-12-03 11:42 | XMS_ITS | Encounter Summary ---
:1955 Author Organization [facility] Address [address], [place] [address] Care Team Providers Name Role Phone Bj Pelletier MD Primary Care Provider Unavailable Encounter Details Date Type Department Care Team Description 11/13/2020 Lab Visit Specialty Center [address] persistent asthma Outpatient Laborator y without complication [address] [place] [address] Social History Tobacco Use Types Packs/Day Years Used Date Smoking Tobacco: Never Smokeless Tobacco: Never Alcohol Use Standard Drinks/Week Comments Yes 4 (1 standard drink = 0.6 oz pure alcoho l) Sex Assigned at Date Recorded Female 10/03/2020 11:17 AM CDT documented as of this encounter Progress Notes Shyam Ronquillo MBBS - 11/13/2020 9:30 AM CDT Ig E high, consistent with asthma. Nothing else of concern. No change to plan. documented in this encounter Plan of Treatment Not on filedocumented as of this encounter Procedures Procedure Name Priority Date/Time Associated Diagnosis Comme nts CBC AND DIFFERENTIAL Routine 11/13/2020 9:34 AM Moderate persi stent Results for this PANEL CDT asthma without procedure are in complication the results section. IGE, ASPERG.FUMIGATUS Routine 11/13/2020 9:34 AM Moderate pers istent Results for this (M3) CDT asthma without procedure are in complication the results section. COMPLETE BLOOD Routine 11/13/2020 9:34 AM Moderate persistent Results for this COUNT-W/DIFF CDT asthma without procedure are in complication the results section. IGE TOTAL Routine 11/13/2020 9:34 AM Moderate persistent Re sults for this CDT asthma without procedure are in complication the results section. documented in this encounter Results Complete Blood Count-W/Diff (11/13/2020 9:34 AM CDT) P athologist Signature WBC 8.1 3.5 - 10.5 11/13/2020 [facility] x10(9)/L 10:10 AM CDT LABORATORY RBC 3.99 3.90 - 11/13/2020 [facility] 5.03 10:10 AM CDT LABORATORY x10(12)/L Hemoglobin 12.4 12.0 - 11/13/2020 [facility] 15.5 g/dL 10:10 AM CDT LABORATORY HCT 38.7 34.9 - 11/13/2020 [facility] 44.5 % 10:10 AM CDT LABORATORY MCV 97.0 80.0 - 11/13/2020 [facility] 100.0 fL 10:10 AM CDT LABORATORY MCH 31.1 27.6 - 11/13/2020 [facility] 33.3 pg 10:10 AM CDT LABORATORY MCHC 32.0 31.5 - 11/13/2020 [facility] 35.2 g/dL 10:10 AM CDT LABORATORY RDW 12.3 11.9 - 11/13/2020 [facility] 15.5 % 10:10 AM CDT LABORATORY Platelets 297 150 - 450 11/13/2020 [facility] x10(9)/L 10:10 AM CDT LABORATORY Automated NRBC 0 <=0 /100 11/13/2020 [facility] WBC 10:10 AM CDT LABORATORY Neutrophil 6.1 1.7 - 7.0 11/13/2020 [facility] Absolute 10(9)/L 10:10 AM CDT LABORATORY Lymphocyte 1.3 1.0 - 4.8 11/13/2020 [facility] Absolute 10(9)/L 10:10 AM CDT LABORATORY Monocytes 0.5 0.2 - 0.9 11/13/2020 [facility] Absolute 10(9)/L 10:10 AM CDT LABORATORY Eosinophil 0.1 0.0 - 0.5 11/13/2020 [facility] Absolute 10(9)/L 10:10 AM CDT LABORATORY Basophil 0.0 0.0 - 0.3 11/13/2020 [facility] Absolute 10(9)/L 10:10 AM CDT LABORATORY Immature Gran % 0.4 0.0 - 0.5 11/13/2020 [facility] % 10:10 AM CDT LABORATORY Specimen Anatomical Collection Method / Collection Time Recei rosa isela Time (Source) Location / Volume Laterality Blood Venipuncture / 11/13/2020 9:34 11/13/2020 9:56 Unknown AM CDT AM CDT Shy[facility] Performing Organization Address City/State/ZIP Code Phon e Number [facility] [address] [place] [address] IGE Mold Aspergillus Fumigatus (11/13/2020 9:34 AM CDT) [facility] Recognia Method Time Signature Mold 0.23 <0.35 11/13/2020 [facility] Aspergillus kU/L 6:59 PM CDT CENTRAL LAB Fumigatus, IgE Comment: Class = 0/1 Specimen Anatomical Collection Method / Collection Time Recei rosa isela Time (Source) Location / Volume Laterality Blood Venipuncture / 11/13/2020 9:34 11/13/2020 9:56 Unknown AM CDT AM CDT Narrative [facility] C[facility]AL [facility] - 11/13/2020 6:59 PM CDT Clinical correlation is indicated for al l class levels. Shyam [facility] Performing Organization Address City/State/ZIP Code Phon e Number [facility]AL [facility] [address] [address] (ABNORMAL) IgE (11/13/2020 9:34 AM CDT) [facility] Recognia Method Time Signature IgE,Total 185.0 (H) 0.0 - 11/13/2020 [facility] 126.9 kU/L 6:59 PM CDT CENTRAL LAB Specimen Anatomical Collection Method / Collection Time Recei rosa isela Time (Source) Location / Volume Laterality Blood Venipuncture / 11/13/2020 9:34 11/13/2020 9:56 Unknown AM CDT AM CDT Shyam [facility] Performing Organization Address City/State/ZIP Code Phon e Number [facility] [address] [address] documented in this encounter Visit Diagnoses Diagnosis Moderate persistent asthma without compl ication (HRC) Unspecified asthma documented in this encounter Care Teams Call Center Consultant Relationship Specialty Start Date End Date Bj Pelletier MD PCP - General 05/19/[address] [facility], [address] documented as of this encounter
--- OUTSIDE RECORDS SUMMARY | 2021-12-03 11:42 | XMS_ITS | Encounter Summary ---
:1955 Author Organization [facility] Address [address], [place] [address] Care Team Providers Name Role Phone Bj Pelletier MD Primary Care Provider Unavailable Encounter Details Date Type Department Care Team Description 04/25/2021 corey Rodríguez [phone] Social History Tobacco Use Types Packs/Day Years Used Date Smoking Tobacco: Never Smokeless Tobacco: Never Alcohol Use Standard Drinks/Week Comments Yes 4 (1 standard drink = 0.6 oz pure alcoho l) Sex Assigned at Date Recorded Female 10/03/2020 11:17 AM CDT documented as of this encounter Progress Notes FAMILY MEDICINECORYE PROVIDER - 04/25/2021 7:33 AM CST corey Treatment Plan Diagnosis Urinary Tract Infection Visit Date April 25, 2021 Megan LorenzoTaySeveriano Date of : 55 Provider Ana Bennett, Nurse Practitioner Note From Provider Anmol Guzman,Thank you for using [facility]! Your symptoms are consistent with a bladder infection which requires treatment with an antibiotic. I have sent a prescription to your pharmacy for treatment. Be sure to take the entire course of antibiotic and don't miss or skip doses even if your symptoms improve before the prescription is done. Stopping prior to completion could result in worsening symptoms or antibiotic resistance. Take your antibiotic with meals to promote absorption and prevent stomach upset. You will find your swqo-vn-uqqo treatment plan specific to you that has information onhow to relieve symptoms attached to this message. If symptoms worsen (you develop fever, chills, nausea, vomiting, new/worsening abdominal or back pain) or don't improve, you will need to be seen in clinic right away for a urine culture and physical exam. If you have any further questions or concerns feel free to request a call back. We're happy to help and available 07/09. Take care and feel better soon, KELLY Perez Treatment Plan Since you have a bacterial infection, let's try an antibiotic. [facility] I've also listed a few of the best ways to soothe your discomfortand some additional self-care tipsto get you on the road to feeling better.If your symptoms don't improve after 3 days, or if you haveq uestions, please select Help to Request a Call Back andwe'll talk about your next steps for free. Order(s) Macrobid 100 mg capsule Take 1 capsule oral every twelve hours with meals for 5 days Note: Take on a full stomach. Refills: None Sent To: [facility]/pharmacy [address] [place] [address] Treatment Plan Self Care Tip Topics Warm Packs Drink Water Avoid Caffeine What to Expect If you follow the recommendations I made on the Treatment tab, your symptomsshould improve in about 3 days. If your symptoms don'timprove after 3 days, or if you have questions, please select Help toRequest a Call Back and we'll helpdetermine your next step for free. What to Watch Out For Give us a call if you experience: ??? High fever ??? Shaking chills ??? Worsening pain with urination ??? Severe pain in your back, abdomen or pelvis My Conditions, Orders, Allergies as of April 25, 2021 Standard condition list Cancer High Blood Pressure (Hypertension) Current orders Macrobid (nitrofurantoin monohyd/m-cryst) lisinopril (lisinopril) Allergies Sulfa (Sulfonamide Antibiotics) [email or web address] Information [email or web address] by Member Savings Program We are an online clinic open 07/09. If you have any questions or comments about this visit, please call or email [email or web address]. [employer] documented in this encounter Plan of Treatment Not on filedocumented as of this encounter Visit Diagnoses Not on filedocumented in this encounter Care Teams Inspector Coated Fabrics Relationship Specialty Start Date End Date Bj Pelletier MD PCP - General 05/19/[address] [facility], [address] documented as of this encounter
--- OUTSIDE RECORDS SUMMARY | 2021-12-03 11:42 | XMS_ITS | Encounter Summary ---
:1955 [facility] Address [address], [place] [address] Care Team Providers Name Role Phone Bj Pelletier MD Primary Care Provider Unavailable Reason for Visit Reason Comments Refill lisinopril (ZESTRIL) 5 MG ta blet [Pharmacy Med Name: LISINOPRIL 5 MG TABLET] Encounter Details Date Type Department Care Team Description 09/29/2021 Refill [place] [address] [address], Jose Brink, R efill (lisinopril Medicine PA-C (ZESTRIL) 5 MG tablet [address] [address] [facility] [address] [Pharmacy Med Name: [place], [place] [address] LISINOPRIL 5 MG TABLET]) [id number] [phone] Social History Tobacco Use Types Packs/Day Years Used Date Smoking Tobacco: Never Smokeless Tobacco: Never Alcohol Use Standard Drinks/Week Comments Yes 4 (1 standard drink = 0.6 oz pure alcoho l) Sex Assigned at Date Recorded Female 10/03/2020 11:17 AM CDT documented as of this encounter Nursing Notes Rocky Weiner RN - 09/29/2021 5:02 PM CDT Renewed medication per medication refill protocol. Requested Prescriptions Pending Prescriptions Disp Refills lisinopril (ZESTRIL) 5 MG tablet [Pharmacy Med Name: LISINOPRIL 5 MG TABLET] 90 Tablet 0 Sig: TAKE 1 TABLET BY MOUTH EVERY DAY Interface, Out Backand Prov Query - 09/29/2021 3:13 PM CDT lisinopril (ZESTRIL) 5 MG tablet [Pharmacy Med Name: LISINOPRIL 5 MG TABLET] Medication started: 03/23/2017 Last ordered by JOSE ANDINO: 10/07/2020 (357 days ago) QTY: 90, Refills: 3, Sig: take 1 tablet by mouth daily. (changed but equivalent) -> Refill x 3 months (until due for an office visit) Last qualifying visit: 10/07/2020 (with JOSE ANDINO) (A more recent visit (in Internal Medicine with DIONI GILLESPIE) was found) Next scheduled visit: None Cr: 0.64 mg/dL on 09/05/2021 K: 5.4 mEq/L on 09/05/2021 [facility] Embedded Refills, Reference: [id number], 09/29/2021 3:13:35 PM CDT, Pool: AURELIOMELL REFILL ([id number]) Interface, Out Backand Prov Query - 09/29/2021 3:13 PM CDT The following lab order(s) may be associated with the Result Note below: BASIC METABOLIC PANEL Notes recorded by Dioni Gillespie on 09/05/2021 at 8:51 PM CDT Dear Megan, Your potassium level is slightly elevated. Limit intake of foods high in potassium, such as potatoes, sweet potatoes, bananas, strawberries, melons, oranges, orange juice spinach, beets, avocado, whitebeans, yogurt, orange juice, clams, salmon prior to your surgery. Sincerely, Dioni Gillespie APRN, CNP Interface, Out Backand Prov Query - 09/29/2021 3:13 PM CDT The following lab order(s) may be associated with the following Patient Result Comment (Entered by Dioni Gillespie APRN, CNP at 09/05/2021 8:51 PM): BASIC METABOLIC PANEL Dear Megan,Your potassium level is slightly elevated. Limit intake of foods high in potassium, such as potatoes, sweet potatoes, bananas, strawberries, melons, oranges, orange juice spinach, beets, avocado, white beans, yogurt, orange juice, clams, salmon prior to your surgery. Sincerely, Dioni Gillespie APRN, CNP documented in this encounter Plan of Treatment Not on filedocumented as of this encounter Visit Diagnoses Diagnosis Essential hypertension (HRC) Unspecified essential hypertension documented in this encounter Care Teams Croze Cutter Relationship Specialty Start Date End Date Bj Pelletier MD PCP - General 05/19/[address] [facility], [address] documented as of this encounter
--- OUTSIDE RECORDS SUMMARY | 2021-12-03 11:42 | XMS_ITS | Encounter Summary ---
:1955 Author Organization [facility] Address [address] [place] [address] Care Team Providers Name Role Phone Bj Pelletier MD Primary Care Provider Unavailable Reason for Visit Reason Comments Knee Problem Encounter Details Date Type Department Care Team Description 10/30/2020 Therapy [facility], Maxwell Holder PT Acute pain of right knee (Primary Dx); Physical Therapy [address] Knee stiff, right [address] [place], [place] [id number] [phone] (Wo rk) Social History Tobacco Use Types Packs/Day Years Used Date Smoking Tobacco: Never Smokeless Tobacco: Never Alcohol Use Standard Drinks/Week Comments Yes 4 (1 standard drink = 0.6 oz pure alcoho l) Sex Assigned at Date Recorded Female 10/03/2020 11:17 AM CDT documented as of this encounter Progress Notes Symone Holder PT - 10/30/2020 9:45 AM CDT [facility] Daily Note Visit Number: 8 [email or web address] Initial Certification Period: 08/28/2020 to 10/27/20 Referring Provider: Otis Crump MD Diagnosis: Closed fracture of lateral portion of right tibial plateau, tricompartmental chondromalacia Orders: Evaluate & treat; Precautions/Contraindications: WBAT Date of Onset: 08/05/20 Standardized Functional Score: History: Method of Injury: Dog ran into her leg then she slipped Functional Limitations: Walking, stairs Patient???s Therapy Goals: Decrease knee pain,normal ROM/gait SUBJECTIVE: Pain: 0/10 Functional Status: WBAT Patient Report: Patient reports that she is doing well overall. States that she has quad soreness after her exercises. OBJECTIVE: Today???s Findings Knee ROM (lzfeebvpu-bay-pitl): 1-132 Strength: Quad set good TREATMENT TODAY: Therapeutic Exercise (CPT 47137) x 30 minutes: Utilized for the purpose of improving strength, ROM, endurance, and/or flexibility: Access Code: [email or web address] Exercises Supine Knee Extension Stretch on Towel Roll - 1 x daily - 5-10min hold Active Straight Leg Raise with Quad Set - 1 x daily - 4 x weekly - 10 reps - 2 sets Seated Long Arc Quad with Ankle Weight - 1 x daily - 4 x weekly - 2 sets - 10 reps Neutral Curl Up with Straight Leg - 2 x daily - 5 reps - 10 hold Supine Bridge - 2 x daily - 10 reps - 5 hold Clamshell holds - 1 x daily - 1 reps - 30 hold Clamshell - 1 x daily - 10 reps Mini Squat with Counter Support - 1 x daily - 4 x weekly - 2 sets - 10 reps Lunge with Counter Support - 1 x daily - 4 x weekly - 2 sets - 10 reps Standing Terminal Knee Extension with Resistance - 2 x daily - 10 reps Seated Knee Extension Stretch with Chair - 1 x daily - 30 hold Long Sitting Calf Stretch with Strap - 1 x daily - 1 reps - 30 hold (sec) Verbal and tactile cues required to ensure correct exercise technique. Patient able to perform exercise correctly with good technique and no reports of increased pain. Patient instructed to discontinueexercise if increased pain were to occur. Patient verbalized understanding. Therapeutic Activities (CPT 67638) x 10 minutes: Dynamic activities utilized to improve functional performance. Patient was educated on relevant anatomy, pathomechanics, activity modifications and future POC. Patient participated in establishing goals and POC. Patient confirmed that they understand the instructions to HEP/activity modifications, including the risk of reinjury. 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 Timed Code Treatment Minutes: 40 Total Treatment Minutes: 40 ASSESSMENT: Patient tolerated session well without increase in pain. Demonstrates improvements in LE strength, as she was able to increase overall volume and resistance of strengthening. Demonstrates improved activity tolerance, as she is able to increase walking distance to three miles before pain onset. Still has anterior knee/joint line pain during stairs. Planning on starting work full duty on 11/18/20, aftera couple weeks of LE strengthening. Recommend continued skilled PT to address deficits and return patient to highest level of function. PLAN: Assess for discharge EXPECTED FUNCTIONAL OUTCOMES/GOALS: HEP/Independent Management: Demonstrate independence with HEP and self- management following each treatment session ADL's: Perform home management tasks with ease in 6 weeks. Increase standing tolerance to 30 mins be able to make dinner in 6 weeks. Ambulation: Ambulate unlimited distances with minimal to no symptoms/limp in 4 weeks. Ascend/descend stairs independently with reciprocal pattern with minimal to no symptoms and improvedlower extremity alignment in 6 weeks. Therapist: Symone Holder PT 9:50 AM 10/30/2020 documented in this encounter Plan of Treatment Not on filedocumented as of this encounter Visit Diagnoses Diagnosis Acute pain of right knee - Primary Knee stiff, right documented in this encounter Care Teams Constitutional Law Professor Relationship Specialty Start Date End Date Bj Pelletier MD PCP - General 05/19/[address] [facility], [facility] documented as of this encounter
--- OUTSIDE RECORDS SUMMARY | 2021-12-03 11:42 | XMS_ITS | Clinical Summary ---
:1955 [facility] Address [address] [address] Care Team Providers Name Role Phone Bj Pelletier MD Primary Care Provider Unavailable Source Comments You are receiving this document as you are listed as the primary care provider,follow-up provider, or the patient has been referred to you for consultation.This is in compliance with the Medicare and Medicaid EHR Incentive Program,which states Providers who transition their patient to another setting of careor provider of care or refers their patient to another provider of care shouldprovide summarycare record for each transition of care or referral. [facility] Allergies Active Allergy Reactions Severity Noted Date Comments Cat Hair Extract 03/21/2016 Other 07/28/2006 PN: LW Other1: -CATS Wound Dressing Adhesive Rash 04/24/2021 Sulfamethoxazole-Trimet 07/28/2006 PN: LW Reaction: hoprim Rash, Generaliz ed Tobacco Breathing Difficulty High 06/29/2016 Tramadol Nausea 03/08/2012 Headache Weirdness And sick nasuea , vomiting Trimethoprim Hives, Rash High 03/19/2005 Medications Medication Sig Dispensed Refills Start Date End Date Status Ascorbic Acid (VITAMIN C Take 2 Tablets 0 08/03/2006 Active OR) by mouth daily. B Complex Vitamins Take by mouth 0 08/03/2006 Active (VITAMIN B COMPLEX OR) daily (every 24 hours). Multiple Vitamin Take by mouth. 0 Active (MULTI-VITAMIN) tablet ALBUterol sulfate HFA Inhale 2 Puffs 0 04/25/2014 Active 108 (90 Base) MCG/ACT as needed. inhaler Cholecalciferol (VITAMIN Take 2,500 Units 0 Active D3) 400 UNITS CAPS by mouth daily. fluticasone propionate Place 2 Sprays 16 g 0 01/15/2020 Active (FLONASE) 50 MCG/ACT into both nasal solution nostrils daily. Additional Information Patient taking differently: 2 Casey Both Nostrils PRN, Reported on 09/05/2021 montelukast (SINGULAIR) 10 daily. 0 06/30/2020 Active MG tablet fluticasone-salmeterol Inhale 1 Puff two times a 3 Each 3 0 11/13/2020 Active (AIRDUO RESPICLICK) 232-14 day. Rinse mouth/gargle MCG/ACT inhaler after use. Calcium 250 MG CAPS 250 mg 4 times a day. 0 07/23/19 Active oxyCODONE (ROXICODONE) 5 MG Take 5 mg by mouth. 0 Active immediate release tablet TURMERIC OR Take 2 Tablets by mouth 0 Active daily. calcium citrate-vitamin D Take 2 Tablets by mouth. 0 07/22/2021 Active (CITRACAL+D) 315-200 MG-UNIT tablet drug not in computer 10 Doses as needed. 0 Active [employer]ief[employer] tea pills for consitpation OMEGA-3 FATTY ACIDS OR daily. 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 Encounters Date Type Specialty Care Team Description 09/29/2021 Refill Family Medicine Jose Parada, Refill ( lisinopril PA-C (ZESTRIL) 5 MG tablet [Pharmacy Med N jose: LISINOPRIL 5 MG TABLET]) 09/05/2021 Lab Visit Laboratory Preop general p hysical exam 09/05/2021 Pre-Op Visit Internal Medicine Nini Gillespie, Preop g eneral physical exam (Primary Dx); 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, 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 Welcome to [facility] preventive visit; Ptosis of both eyelids from Last 3 Months Immunizations Name Administration Dates Next Due Flu Vac (3+ yrs) 12/21/2001, 01/17/1992 Flu Vac Preserv Free (3+yrs) 12/02/2011 HepA Adult (19+ yrs) 10/06/2002, 12/21/2001 HepA, Unspecified Formulation 10/06/2002, 12/21/2001 HepA-HepB (TWINRIX, 18+ yrs) 10/06/2002, 12/21/2001 HepB Adult (Engerix-B, 20+ yrs, 3 10/06/2002, 01/23/2002, dose series) HepB, Unspecified Formulation 10/06/2002, 01/23/2002, 2001 Influenza (Fluad) 12/21/2001, 01/17/1992 Influenza IIV4 (Quadrivalent) 0.5mL 12/02/2011 ([id number]) Influenza, Unspecified Formulation 02/29/2020 (Deferred: Oth er), 02/29/2020 PCV20 ([id number]) 09/05/2021 PPSV23 (Pneumovax) 12/02/2011, 12/02/2011 (Deferred: Other) Pfizer (Comirnaty) COVID-19, 12+ Yrs 01/17/2021, 04/04/2020, 03/14/2020 Purple Top TB Skin Test (PPD) 12/01/2010 Td (7+ yrs) 01/23/2002 Tdap 04/01/2010 Zoster, Unspecified Formulation 02/29/2020 (Deferred: Other) Family History Medical History Relation Name Comments Cancer, Ovary Mother Cancer, Breast Maternal Grandmother Relation Name Status Comments Mother Maternal Grandmother Social History Tobacco Use Types Packs/Day Years Used Date Smoking Tobacco: Never Smokeless Tobacco: Never Alcohol Use Standard Drinks/Week Comments Yes 4 (1 standard drink = 0.6 oz pure alcoho l) Sex Assigned at Date Recorded Female 10/03/2020 11:17 AM CDT Last Filed Vital Signs Vital Sign Reading Time Taken Comments Blood Pressure 127/84 09/05/2021 1:15 PM CDT Pulse 81 09/05/2021 1:15 PM CDT Temperature 36.3 ??C (97.3 ??F) 09/05/2021 1:04 PM CDT Respiratory Rate 16 01/15/2020 2:51 PM ACTUARIAL TRAINEE Oxygen Saturation 99% 09/05/2021 1:04 PM CDT Inhaled Oxygen Concentration - - Weight 58.7 kg (129 lb 6 oz) 09/05/2021 1:04 PM CDT Height 159.4 cm (5' 2.75) 09/05/2021 1:04 PM CDT Body Mass Index 23.1 09/05/2021 1:04 PM CDT Plan of Treatment Health Maintenance Due Date Last Done Comments Cholesterol 11/18/2000 Zoster/Shingles (1 of 2) 11/18/2005 DTaP/Tdap/Td (2 - Tdap) 04/01/2020 04/01/2010, 01/23/2002 COVID-19 Vaccine (4 - 03/14/2021 01/17/2021, 04/04/2020, Booster for Pfizer series) 03/14/2020 Influenza (#1) 2021 02/29/2020, 12/02/2011, 12/02/2011, Additional history exists Mammogram 06/10/2022 06/10/2021, 12/27/2019 (Completed), 12/21/2019, Additional history exists Medicare Annual Wellness 09/05/2022 09/05/2021 Visit HepA Aged Out 10/06/2002, 10/06/2002, No longe r eligible 10/06/2002, Additional based on patient's age history exists to complete this topic HepB Completed 10/06/2002, 10/06/2002, 10/06/2002, Additional history exists Dexa Completed 05/18/2016 Colonoscopy Screening Completed 04/24/2021 (Completed) Completed Hep C Screening (Preventive Completed 04/24/2021 (Complete d) Services) Pneumococcal 65+ Yrs Completed 09/05/2021, 12/02/2011 Hib Aged Out No longer eligib le based on patient 's age to complete this topic IPV (Polio) Aged Out No longer eligib le based on patient 's age to complete this topic MCV4 Aged Out No longer eligib le based on patient 's age to complete this topic Medical Devices Implanted Type Area Needle Loom Tender Device Shelf Model / Identifier Expiration Serial / Lot Date Peg Mdtp 2.5x18 - [id number] DEVICE Right: Biomet - Trauma [id number] / Implanted: Qty: 1 on 03/26/2016 [facility] Procedures Procedure Name Priority Date/Time Associated Diagnosis Comme nts BASIC METABOLIC Routine 09/05/2021 1:37 PM Preop general Resul ts for this PANEL CDT physical exam procedure are in the results section. from Last 3 Months Results (ABNORMAL) Basic Metabolic Panel (09/05/2021 1:37 PM CDT) [facility] gist Method Time Signature Sodium 140 136 - 145 09/05[facility]2021 [facility] mmol/L 7:03 PM CDT [facility] Potassium 5.4 (H) 3.5 - 5.1 09/05/2021 [facility] mmol/L 7:03 PM CDT [facility] Chloride 103 98 - 109 09/05/2021 [facility] mmol/L 7:03 PM CDT [facility] CO2 28 20 - 29 09/05/2021 [facility] mmol/L 7:03 PM CDT [facility] Anion Gap 9 7 - 16 09/05/2021 [facility] mmol/L 7:03 PM CDT [facility] Calcium 10.0 8.4 - 09/05/2021 [facility] 10.4 7:03 PM CDT [facility] mg/dL BUN 12 7 - 26 09/05/2021 [facility] mg/dL 7:03 PM CDT [facility] Creatinine 0.64 0.55 - 09/05/2021 [facility] 1.02 7:03 PM CDT [facility] mg/dL GFR, Estimated >60 >60 09/05/2021 [facility] mL/min/1. 7:03 PM CDT [facility] 73m2 Glucose 93 70 - 100 09/05/2021 [facility] mg/dL 7:03 PM CDT [facility] Comment: The given reference range is fo r the fasting state. Non-fasting reference range for glucose is 70 - 180 mg/dL. Hours Fasting 3 09/05/2021 7:03 PM CDT [facility] Specimen Anatomical Collection Method / Collection Time Recei rosa isela Time (Source) Location / Volume Laterality Blood Venipuncture / 09/05/2021 1:37 09/05/2021 1:37 Unknown PM CDT PM CDT Nini Maribeth Gillespie 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, 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 LAB_1 Performing Organization Address City/State/ZIP Code Phon e Number [facility] [address] [place] [address] [facility] [address] [place], [place] [phone] [id number], [facility] from Last 3 Months Insurance Payer Benefit Plan / Subscriber ID Effective Phone Address T ype Group Dates [employer] NONPROFIT [id number] 2015-Pres [employer] [id number] [place] [address] [employer] NONPROFIT [id number] 2020-Pres [employer] [id number] [address] [place] [address] BCBS BCBS MEDICARE [id number] 2020-Pres [phone] Medicare ADVANTAGE ent 65 Care Teams Macerator Operator Relationship Specialty Start Date End Date Bj Pelletier MD PCP - General 05/19/[address] [facility], [facility]
--- OUTSIDE RECORDS SUMMARY | 2021-12-03 11:42 | XMS_ITS | Encounter Summary ---
:1955 [facility] Address [address] [place] [address] Care Team Providers Name Role Phone Bj Pelletier MD Primary Care Provider Unavailable Reason for Visit Procedure/Equipment (Routine) - Incomplete Specialty Diagnoses / Procedures Referred By Contact Refer red To Contact Diagnoses Visit for screening mammogram Alcides Frazier MD Procedures [facility] US Breast Rt [address] [place] [address] Referral ID Status Reason Start Date Expiration Date Visits V isits Requested Authorized [id number] Incomplete 06/18/2021 09/17/2022 1 1 Encounter Details Date Type Department Care Team Description 06/20/2021 Ancillary [facility] [address] Alcides Frazier for screening Procedure Mammography MD Keena mammogram [address] [place] [address] [facility]. [address] [address] [phone] Social History Tobacco Use Types Packs/Day Years Used Date Smoking Tobacco: Never Smokeless Tobacco: Never Alcohol Use Standard Drinks/Week Comments Yes 4 (1 standard drink = 0.6 oz pure alcoho l) Sex Assigned at Date Recorded Female 10/03/2020 11:17 AM CDT documented as of this encounter Plan of Treatment Not on filedocumented as of this encounter Procedures Procedure Name Priority Date/Time Associated Diagnosis Comme nts [facility] US BREAST RT Routine 06/20/2021 10:41 AM Visit for screeni ng Results for this CDT mammogram procedure are i n the results section. documented in this encounter Results YMM US Breast Rt (06/20/2021 10:41 AM CDT) Anatomical Region Laterality Modality Breast Right Ultrasound Specimen (Source) Anatomical Collection Method Collection Time Re ceived Time Location / / Volume Laterality 06/20/2021 10:41 AM CDT Impressions 06/20/2021 10:51 AM CDT EXAMINATION: Right breast tomosynthesis and ultrasound. HISTORY: Screening call back. COMPARISON: 06/10/2021, 12/21/2019, , 03/05/2017. FINDINGS: Right breast tomosynthesis jaren ws partial effacement of the asymmetry superiorly on the MLO view at posterior depth. No corresponding finding on the exaggerated CCL tomosynthesis. Imaging directed right breast ultrasound shows normal breast parenchyma. No suspicious sonographic finding. ?? IMPRESSION: ACR BI-RADS CATEGORY 3: ??Pr obably benign. RECOMMENDATION: 6 month follow-up right breast tomosynthesis repeating and MLO view and XCCL. The results and recommendations of this examination will be communicated to the patient by the [facility] and we will attempt to schedule any recommended imaging follow up with the patient. Procedure Note Francisco Javier Rodriguez MD - 06/20/2021Formatt ing of this note might be different from the original. IMPRESSION EXAMINATION: Right breast tomosynthesis and ultrasound. HISTORY: Screening call back. COMPARISON: 06/10/2021, 12/21/2019, 019, 03/05/2017. FINDINGS: Right breast tomosynthesis jaren ws partial effacement of the asymmetry superiorly on the MLO view at posterior depth. No corresponding finding on the exaggerated CCL tomosynthesis. Imaging directed right breast ultrasound shows normal breast parenchyma. No suspicious sonographic finding. IMPRESSION: ACR BI-RADS CATEGORY 3: Prob ably benign. RECOMMENDATION: 6 month follow-up right breast tomosynthesis repeating and MLO view and XCCL. The results and recommendations of this examination will be communicated to the patient by the [facility] and we will attempt to schedule any recommended imaging follow up with the patient. Alcides Frazier MD RAD GABRIEL YMM Mammogram Diag Rt W 3D Kristian (06/20/2021 10:16 AM CDT) Anatomical Region Laterality Modality Breast Right Mammography Specimen (Source) Anatomical Collection Method Collection Time Re ceived Time Location / / Volume Laterality 06/20/2021 10:16 AM CDT Impressions 06/20/2021 10:51 AM CDT EXAMINATION: Right breast tomosynthesis and ultrasound. HISTORY: Screening call back. COMPARISON: 06/10/2021, 12/21/2019, , 03/05/2017. FINDINGS: Right breast tomosynthesis jaren ws partial effacement of the asymmetry superiorly on the MLO view at posterior depth. No corresponding finding on the exaggerated CCL tomosynthesis. Imaging directed right breast ultrasound shows normal breast parenchyma. No suspicious sonographic finding. ?? IMPRESSION: ACR BI-RADS CATEGORY 3: ??Pr obably benign. RECOMMENDATION: 6 month follow-up right breast tomosynthesis repeating and MLO view and XCCL. The results and recommendations of this examination will be communicated to the patient by the [facility] and we will attempt to schedule any recommended imaging follow up with the patient. Procedure Note Francisco Javier Rodriguez MD - 06/20/2021Formatt ing of this note might be different from the original. IMPRESSION EXAMINATION: Right breast tomosynthesis and ultrasound. HISTORY: Screening call back. COMPARISON: 06/10/2021, 12/21/2019, , 03/05/2017. FINDINGS: Right breast tomosynthesis jaren ws partial effacement of the asymmetry superiorly on the MLO view at posterior depth. No corresponding finding on the exaggerated CCL tomosynthesis. Imaging directed right breast ultrasound shows normal breast parenchyma. No suspicious sonographic finding. IMPRESSION: ACR BI-RADS CATEGORY 3: Prob ably benign. RECOMMENDATION: 6 month follow-up right breast tomosynthesis repeating and MLO view and XCCL. The results and recommendations of this examination will be communicated to the patient by the [facility] and we will attempt to schedule any recommended imaging follow up with the patient. Alcides Frazier MD RAD GABRIEL documented in this encounter Visit Diagnoses Diagnosis Visit for screening mammogram Other screening mammogram Visit for screening mammogram Other screening mammogram documented in this encounter Care Teams Binding Nicker Relationship Specialty Start Date End Date Bj Pelletier MD PCP - General 05/19/[address] [facility], [address] documented as of this encounter
--- OUTSIDE RECORDS SUMMARY | 2021-12-03 11:42 | XMS_ITS | Encounter Summary ---
:1955 Author [facility] Address [address] [address] Care Team Providers Name Role Phone Bj Pelletier MD Primary Care Provider Unavailable Reason for Referral Procedure/Equipment (Routine) - Incomplete Specialty Diagnoses / Procedures Referred By Contact Refer red To Contact Procedures Bj Pelletier MD MM Mammogram Screening [facility] [address] [place] [id number] Referral ID Status Reason Start Date Expiration Date Visits V isits Requested Authorized [id number] Incomplete 06/09/2021 09/08/2022 1 1 Reason for Visit Procedure/Equipment (Routine) - Incomplete Specialty Diagnoses / Procedures Referred By Contact Refer red To Contact Procedures Bj Pelletier MD MM Mammogram Screening [facility] [address] [place] [id number] Referral ID Status Reason Start Date Expiration Date Visits V isits Requested Authorized [id number] Incomplete 06/09/2021 09/08/2022 1 1 Encounter Details Date Type Department Care Team Description 06/10/2021 Ancillary Procedure [facility] [place] [address] Social History Tobacco Use Types Packs/Day Years [...] Name Priority Date/Time Associated Diagnosis Comme nts MM MAMMOGRAM Routine 06/10/2021 12:37 PM Results for this SCREENING BILAT W CDT procedure are in 3D CIRILO W CAD the results section. documented in this encounter Results (ABNORMAL) MM Mammogram Screening Bilat W 3D Cirilo W CAD (06/10/2021 12:37 PM CDT) Anatomical Region Laterality Modality Breast Bilateral Mammography Specimen (Source) Anatomical Location Collection Method / Collectio n Time Received Time / Laterality Volume Impressions 06/17/2021 10:58 AM CDT : ACR BI-RADS Category 0: Need Additional Imaging Evaluation RECOMMENDATION: Spot Tomosynthesis, Ultr asound and Exaggerated CC The results and recommendations of this examination will be communicated to the patient and the imaging center wi ll attempt to schedule any recommended follow up with the patient. As a result of the [facility], all medical imaging exams are released immediately to [facility]. ??You m ay be viewing this report before our scheduling staff and your referring provider. ??We will attempt to contact you by phone within one business day of this report to schedule any recommended follow-up exams. ??If yo u have questions, please contact your health care provider. Narrative 06/17/2021 10:58 AM CDT MM MAMMOGRAM SCREENING BILAT W 3D CIRILO W CAD performed on 06/10/21 Compared to: 12/21/2019 Foreign Image(S) Mammogram, 09/08/2018 Foreign Image(S) Mammogram, 03/05/2017 Foreign I mage(S) Mammogram, and 03/16/2007 Foreign Image(S) Mammogram ?? FINDINGS: Bilateral screening mammogram was performed with the assistance of Computer-Aided Detection and breast t omosynthesis. The breasts have scattered areas of fibroglandular densit y. There is an asymmetry in the right breas t at the 11 o'clock position at posterior depth. The remainder of the breast tissue is un remarkable. Bj Pelletier MD RAD GABRIEL documented in this encounter Visit Diagnoses Not on filedocumented in this encounter Care Teams Heater Helper Relationship Specialty Start Date End Date Bj Pelletier MD PCP - General 05/19/[address] [place], [address] documented as of this encounter
--- OUTSIDE RECORDS SUMMARY | 2021-12-03 11:42 | XMS_ITS | Encounter Summary ---
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 Ptosis of both eyelids [place], [place] [address] [place], [place] [phone] [id number] Social History Tobacco Use Types Packs/Day Years Used Date Smoking Tobacco: Never Smokeless Tobacco: Never Alcohol Use Standard Drinks/Week Comments Yes 4 (1 standard drink = 0.6 oz pure alcoho l) Sex Assigned at Date Recorded Female 10/03/2020 11:17 AM CDT documented as of this encounter Last Filed Vital Signs Vital Sign Reading Time Taken Comments Blood Pressure 127/84 09/05/2021 1:15 PM CDT Pulse 81 09/05/2021 1:15 PM CDT Temperature 36.3 ??C (97.3 ??F) 09/05/2021 1:04 PM CDT Respiratory Rate - - Oxygen Saturation 99% 09/05/2021 1:04 PM CDT Inhaled Oxygen Concentration - - Weight 58.7 kg (129 lb 6 oz) 09/05/2021 1:04 PM CDT Height 159.4 cm (5' 2.75) 09/05/2021 1:04 PM CDT Body Mass Index 23.1 09/05/2021 1:04 PM CDT documented in this encounter Patient Instructions Patient InstructionsPeOmaira cowan CMA - 09/05/2021 1:00 PM CDT On the day of surgery please do not wear any hair product, including hair spray, gels, etc, and please bring all your medications with you on your day of surgery. If you have sleep apnea and have an oral appliance or CPAP equipment, bring your equipment to the hospital. Please, follow instructions for not taking anything by mouth the night before your procedure. However, some medications should not be held for surgery because they are beneficial, and some medications need special attention. Medications I recommend you take with a small sip of water up until surgery include: none Medications that require special changes include: ACEI/ARB medications: omit one dose before surgery. NSAIDS (arthritis medications): stop 3 days before surgery Skip fish oil the morning of the surgery. . Annual Wellness Visit Summary Your care team is recommending the following tests, procedures or services. Some of these recommendations may not be fully covered by Medicare or your insurance. If you have questions, check with your insurance to determine coverage before completing these services. Health Maintenance Due Health Maintenance Due Topic Date Due ??? Cholesterol Never done ??? Zoster/Shingles (1 of 2) Never done ??? Cervical Cancer Screening Due 07/29/2006 ??? DTaP/Tdap/Td (2 - Tdap) 04/01/2020 ??? COVID-19 Vaccine (4 - Booster for Pfizer series) 05/18/2021 If your Medicare Welcome or Annual Wellness Visit is showing you are due in the above list, this will be updated after this visit. You had this completed today and are not due for another year. documented in this encounter Progress Notes Nini Gillespie, JERSON, KELLY - 09/05/2021 1:00 PM CDT Pre-operative History and Physical Assessment Name: Megan العلي : 1955 Primary physician: Bj Pelletier MD. Historical: Megan العلي is a 65 y.o. old female is here for preoperative cardiac and risk evaluation. Patient is scheduled for Bilateral Eyelid Surgery on 09/10/[address] Moore at [facility] [place]. Facility fax # is [phone]. Pertinent history: S/p bilateral eyelid lift 23 years ago, recurrent bilateral blepharoptosis affecting vision. Additional concerns: None Preoperative Screening Questions: Any problems with / history of... Tightening or pressure in chest with activity? no Waking at night with shortness of breath? no Swelling of feet or ankles recently? no Difficulty sleeping flat at night because of shortness of breath? no Troubled by shortness of breath when Walking on the level? Climbing a flight of stairs? no no Getting pains in the calf muscles when walking? no Chest sounds like wheezy or whistling? no Cough, runny nose, or cold symptoms currently? no A chronic cough? no Bleeding or clotting problems for you or close relatives? no Herbal supplements or medications not on the med list being taken? YES Taking steroids or immunosuppressive medications. no Aspirin or NSAIDS taken in the last two weeks? no Anemia or taking iron pills? YES - past history of anemia, not on supplement anymore Anesthesia complications for you or close relatives? YES - had aspiration post colonoscopy. History of sleep apnea, loud snoring, daytime drowsiness or CPAP at home? no Heart attack in the last 30 days? no Recent memory problems (dementia)? no Is there a history of COPD(emphysema) or asthma? Yes. Is your breathing capacity with activity worsethan usual over the last month? YES d/t allergy symptoms In the last week. Lung capacity 47% at baseline. Estimated Functional Capacity: Can you climb one flight of stairs, or walk up a gradual uphill without stopping? yes, functional capacity is more than or equal to 4 METS Medications: Current Outpatient Medications Medication Sig Note Dispense Refill ALBUterol sulfate HFA 108 (90 Base) MCG/ACT inhaler Inhale 2 Puffs as needed. 03/21/2016: Received from: [facility] Ascorbic Acid (VITAMIN C OR) Take 2 Tablets by mouth daily. B Complex Vitamins (VITAMIN B COMPLEX OR) Take by mouth daily (every 24 hours). Calcium 250 MG CAPS 250 mg 4 times a day. calcium citrate-vitamin D (CITRACAL+D) 315-200 MG-UNIT tablet Take 2 Tablets by mouth. Cholecalciferol (VITAMIN D3) 400 UNITS CAPS Take 2,500 Units by mouth daily. 12/09/2016: Received from: [facility] Received Sig: Take 2,500 Units by mouth At Bedtime drug not in computer 10 Doses as needed. Jesusen tea pills for consitpation fluticasone propionate (FLONASE) 50 MCG/ACT nasal solution Place 2 Sprays into both nostrils daily.(Patient taking differently: Place 2 Sprays into both nostrils as needed.) 16 g 0 fluticasone-salmeterol (AIRDUO RESPICLICK) 232-14 MCG/ACT inhaler Inhale 1 Puff two times a day. Rinse mouth/gargle after use. 3 Each 3 lisinopril (ZESTRIL) 5 MG tablet Take 1 Tablet by mouth daily. 90 Tablet 3 montelukast (SINGULAIR) 10 MG tablet daily. Multiple Vitamin (MULTI-VITAMIN) tablet Take by mouth. (Patient not taking: Reported on 08/05/2020) 03/21/2016: Received from: [facility] OMEGA-3 FATTY ACIDS OR daily. Unknown dosage oxyCODONE (ROXICODONE) 5 MG immediate release tablet Take 5 mg by mouth. TURMERIC OR Take 2 Tablets by mouth daily. No current facility-administered medications for this visit. Allergies: Tobacco [tobacco], Trimethoprim, Cat hair extract, Other, Pedi-pre tape spray [wound dressing adhesive], Sulfamethoxazole-trimethoprim, and Tramadol Patient Active Problem List Diagnosis Urethral syndrome (HRC) Right renal mass Pulmonary nodule Essential hypertension (HRC) Moderate persistent asthma without complication (HRC) Allergic rhinitis Habits: Social History Tobacco Use Smoking status: Never Smokeless tobacco: Never Substance Use Topics Alcohol use: Yes Alcohol/week: 4.0 standard drinks Types: 4 Standard drinks or equivalent per week Past Surgical History: Procedure Laterality Date ABDOMEN SURGERY hernia BREAST BIOPSY Right 7 years ago HYSTERECTOMY melanoma melanoma removal 2 weeks ago Observed: Vital Signs: BP 127/84 (BP Location: Left Arm, BP Cuff Size: Regular) Pulse 81 Temp 97.3 ??F (36.3 ??C) (Tympanic) Ht 5' 2.75 (1.594 m) Wt 129 lb 6 oz (58.7 kg) SpO2 99% BMI 23.10 kg/m?? Estimated body mass index is 23.1 kg/m?? as calculated from the following: Height as of this encounter: 5' 2.75 (1.594 m). Weight as of this encounter: 129 lb 6 oz (58.7 kg). General: ambulatory, well nourished, alert. HEENT: normal eyes, ears, throat, oropharynx, bilateral blepharoptosis Neck: Thyroid not enlarged. No bruits. No jugular venous distention Cardiovascular: regular rate and rhythm, normal S1 and S2 without murmur or click Chest/Lungs: clear to auscultation, no wheezes or rales Abdomen: Soft, non-tender, no masses, no hepatomegaly or splenomegaly. Extremities: No cyanosis, clubbing or edema. Pulses intact. Neurologic: Alert and oriented to person, place and time. Skin: No rash Data: Labs: HGB 11.9 (07/21/21) Component Latest Ref Rng & Units 09/05/2021 Sodium 136 - 145 mmol/L 140 Potassium 3.5 - 5.1 mmol/L 5.4 (H) Chloride 98 - 109 mmol/L 103 CO2 20 - 29 mmol/L 28 Anion Gap (calc.) 7 - 16 mmol/L 9 Calcium 8.4 - 10.4 mg/dL 10.0 BUN 7 - 26 mg/dL 12 Creatinine 0.55 - 1.02 mg/dL 0.64 GFR, Estimated >60 mL/min/1.73m2 >60 Glucose 70 - 100 mg/dL 93 Hours Fasting 3 ECG: not indicated for this procedure Assessment and Plan: Pre-op cardiac & risk evaluation: Patient is medically optimized for planned procedure. Cardiac risk for the planned procedure is LOW Preoperative cardiac evaluation based on these risk factors and functional capacity: Functional capacity is greater or equal to 4 METS without symptoms - no additional testing required. Medication changes are listed in patient instructions below. Special risks: -Pulmonary management: albuterol nebs q 4 hours, incentive spirometry every hour while awake. Electronically Signed By: Nini Gillespie APRN, KELLY CC: Nini Gillespie APRN, EMAIL DESIGNER - 09/05/2021 1:00 PM CDT Medicare Welcome Subjective/Historical: Megan العلي is a 65 y.o. old female Chief Complaint Patient presents with PRE-OP EXAM Welcome To Medicare Health Maintanence Declined Vaccines Current Concerns: None Advance Directives: No advance directives are on file. Plan future discussion of advance directives. Observed Vitals: BP 127/84 (BP Location: Left Arm, BP Cuff Size: Regular) Pulse 81 Temp 97.3 ??F (36.3 ??C) (Tympanic) Ht 5' 2.75 (1.594 m) Wt 129 lb 6 oz (58.7 kg) SpO2 99% BMI 23.10 kg/m?? Vision Results: Vision Screening Right eye Left eye Both eyes Without correction 10/10 10/10 10/10 With correction Physical Exam: General Appearance: alert, well appearing, and in no apparent distress HEENT: lids normal, sclera clear, conjunctiva normal, EOMs intact, and pupils equal round and reactive to light and oropharynx clear, ear canals clear, TMs normal, no sinus tenderness to percussion, mucus membranes moist, no oral lesions, and normal nasal mucosa Neck: no lymphadenopathy, no thyromegaly or nodules, carotids pulses normal and without bruits, no JVD, and supple Heart: regular rate and rhythm, no murmurs, gallops or rubs, normal S1 and S2, and PMI nondisplaced Lungs: clear to ausculation, no wheezes, rales or rhonchi, equal breath sounds throughout, and normal respiratory effort Abdomen: soft, nondistended, nontender, no palpable masses, no organomegaly, and normal bowel sounds Extremities: no edema and normal pedal pulses Skin: no rashes or worrisome lesions Assessment/Plan Preop general physical exam - Basic Metabolic Panel; Future Pre-operative general physical examination Welcome to Medicare preventive visit Ptosis of both eyelids - PCV20 ([id number]) Counseling and education provided today includes proper nutrition and health habits, fall prevention, and for those items ordered above. Plan for future preventive services in Patient Instructions. Nini Gillespie APRN, EMAIL DESIGNER documented in this encounter Plan of Treatment Not on filedocumented as of this encounter Results (ABNORMAL) Basic Metabolic Panel (09/05/2021 1:37 PM CDT) [facility] Method Time Signature Sodium 140 136 - 145 09/05/2021 [facility] mmol/L 7:03 PM CDT [facility] Potassium 5.4 (H) 3.5 - 5.1 09/05/2021 [facility] mmol/L 7:03 PM CDT [facility] Chloride 103 98 - 109 09/05/2021 [facility] mmol/L 7:03 PM CDT [facility] CO2 28 20 - 29 09/05/2021 [facility] mmol/L 7:03 PM CDT [facility] Anion Gap 9 7 - 16 09/05/2021 [facility] mmol/L 7:03 PM CDT [facility] Calcium 10.0 8.4 - 09/05/2021 [facility] 10.4 7:03 PM CDT [facility] mg/dL BUN 12 7 - 26 09/05/2021 [facility] mg/dL 7:03 PM CDT [facility] Creatinine 0.64 0.55 - 09/05/2021 [facility] 1.02 7:03 PM CDT [facility] mg/dL GFR, Estimated >60 >60 09/05/2021 [facility] mL/min/1. 7:03 PM CDT [facility] 73m2 Glucose 93 70 - 100 09/05/2021 [facility] mg/dL 7:03 PM CDT [facility] Comment: The given reference range is fo r the fasting state. Non-fasting reference range for glucose is 70 - 180 mg/dL. Hours Fasting 3 09/05/2021 7:[address] [facility] Specimen Anatomical Collection Method / Collection Time Recei rosa isela Time (Source) Location / Volume Laterality Blood Venipuncture / 09/05/2021 1:37 09/05/2021 1:37 Unknown PM CDT PM CDT Nini Gillespie APRN, CNP LAB_1 Performing Organization Address City/State/ZIP Code Phon e Number COUNT INCLUDES THE [facility] C[facility]AL [facility] [address] [address] [facility] [address] [place] [address], [facility] documented in this encounter Visit Diagnoses Diagnosis Preop general physical exam - Primary Other specified pre-operative examinatio n Welcome to Medicare preventive visit Ptosis of both eyelids Unspecified ptosis of eyelid documented in this encounter Care Teams Solar Tech Relationship Specialty Start Date End Date Bj Pelletier MD PCP - General 05/19/[address] [facility], [address] documented as of this encounter
--- OUTSIDE RECORDS SUMMARY | 2021-12-03 11:42 | XMS_ITS | Encounter Summary ---
:1955 Author Organization [facility] Address [address] [place] [address] Care Team Providers Name Role Phone Bj Pelletier MD Primary Care Provider Unavailable Reason for Visit Procedure/Equipment (Routine) - Incomplete Specialty Diagnoses / Procedures Referred By Contact Refer red To Contact Diagnoses Visit for screening mammogram Alcides Frazier MD Procedures [facility] Mammogram Diag Rt W [address] [place] [address] Referral ID Status Reason Start Date Expiration Date Visits V isits Requested Authorized [id number] Incomplete 06/18/2021 09/17/2022 1 1 Encounter Details Date Type Department Care Team Description 06/20/2021 Ancillary [place] [id number] Alcides Frazier for screening Procedure Mammography MD Keena mammogram [address] [facility] [address] [address] [phone] Social History Tobacco Use Types Packs/Day Years [...] Name Priority Date/Time Associated Diagnosis Comme nts [facility] MAMMOGRAM DIAG Routine 06/20/2021 10:16 AM Visit for pamella cervantes Results for this RT W 3D CIRILO CDT mammogram procedure are i n the results section. documented in this encounter Results [facility] US Breast Rt (06/20/2021 10:41 AM CDT) [...] be communicated to the patient by the [facility] and we will attempt to schedule any [...] be communicated to the patient by the [facility] and we will attempt to schedule any recommended imaging follow up with the patient. Alcides Frazier MD RAD GABRIEL [facility] Mammogram Diag Rt W 3D [address]ilo (06/20/2021 10:16 AM CDT) Anatomical Region Laterality [...] be communicated to the patient by the [facility] and we will attempt to schedule any [...] be communicated to the patient by the [facility] and we will attempt to schedule any recommended imaging follow up with the patient. Alcides Frazier MD RAD GABRIEL documented in this encounter Visit Diagnoses Diagnosis Visit for screening mammogram Other screening mammogram Visit for screening mammogram Other screening mammogram documented in this encounter Care Teams Subpoena Server Relationship Specialty Start Date End Date Bj Pelletier MD PCP - General 05/19/[address] [place], [address] documented as of this encounter
--- OUTSIDE RECORDS SUMMARY | 2021-12-03 11:42 | XMS_ITS | Encounter Summary ---
:1955 Author Organization [facility] Address [address] [place] [address] Care Team Providers Name Role Phone Bj Pelletier MD Primary Care Provider Unavailable Reason for Visit Reason Comments CONSULT Encounter Details Date Type Department Care Team Description 11/13/2020 Office Visit Specialty Center Shyam Ronquillo, Mode rate persistent 3931 Pulmonary MBBS asthma without Medicine [address] complication (Primary [address]) [place] [phone] (Wo rk) Social History Tobacco Use Types Packs/Day Years Used Date Smoking Tobacco: Never Smokeless Tobacco: Never Alcohol Use Standard Drinks/Week Comments Yes 4 (1 standard drink = 0.6 oz pure alcoho l) Sex Assigned at Date Recorded Female 10/03/2020 11:17 AM CDT documented as of this encounter Last Filed Vital Signs Vital Sign Reading Time Taken Comments Blood Pressure - - Pulse 76 11/13/2020 8:26 AM CDT Temperature - - Respiratory Rate - - Oxygen Saturation 99% 11/13/2020 8:26 AM CDT Inhaled Oxygen Concentration - - Weight 59.9 kg (132 lb) 11/13/2020 8:26 AM CDT Height 162.6 cm (5' 4) 11/13/2020 8:26 AM CDT Body Mass Index 22.66 11/13/2020 8:26 AM CDT documented in this encounter Patient Instructions Patient InstructionsChShyam ornelas MBBS - 11/13/2020 8:30 AM CDT RTC 6 weeks with korey documented in this encounter Progress Notes Shyam Ronquillo MBBS - 11/13/2020 12:00 AM CDT NAME: MEGAN AYON CSN: [id number] CLINIC NOTE PULMONARY CONSULTATION. DATE OF SERVICE: 11/13/2020 : 1955 REFERRING PROVIDER: Self-referred. REASON FOR REFERRAL: Abnormal CT, asthma. HISTORY OF PRESENTING ILLNESS: Megan is a 64-year-old lady who was previously seen at the [facility] for evaluation of dyspnea and diagnosed with moderate obstructive asthma with limited reversibility. This was in February 2020. She has a background of possible asthma, she presented to an emergency department as a teenager with breathing difficulties and was given something injectable, although she is not entirely sure what. However, interestingly between then and now she has done reasonably well with seasonal and animal sinus symptoms, but less in the way of pulmonary symptoms. Over the past few years, she has developed shortness of breath and more asthmatic features with wheezing and cough. When seen at [facility], her FEV1 was 46% predicted. She was started at that time onhigh-dose Symbicort as well as Singulair and Flonase and this helped somewhat, but has not gotten her back to the functionality she would like. She does recall receiving a 5-day course of prednisone [facility], which was exceedingly helpful, effects lasted for about 2 weeks, but then waned. Workup at [facility] showed normal eosinophils, negative Aspergillus fumigatus IgG, but I do not see IgE or Aspergillus specific IgE. She has previously had allergy tests which confirm allergy to cat and dog, dog is a new allergy in her. Her other main issue is pulmonary nodules seen incidentally on CT done at [facility] in February. These were all 4 mm or smaller. She had repeat CT done in our system in September and again these were 4 mm or smaller, although I do not have the [facility] images to compare directly. She was told by her insurance company she needed to have a CT with contrast, so she proceeded to have that in October, CT was read as no pulmonary nodules, likely due to contrast flushing making nodule recognition more difficult. Unclear to me why insurance told her she needed a specific scan in any case. She carries a history of melanoma, stage I, diagnosed in 2017. This was on her right hip. Margins were clear and she did not require adjuvant therapy. She is a lifelong nonsmoker but did have an ex- who smoked so was exposed to secondhand smokethat way for at least 10 years. 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 She has a dog that she has had for 4 years and although she tests positive allergy to dog, she does not have any problems being around her dog. She has no high-risk hobbies, no exposure to horses, birds, moldy hay, hot tubs, or humidifiers. Denies eczema, but does have sinus issues, particularly in the spring and fall. These are significantly improved recently and I suspect this is due to Singulair. PAST MEDICAL HISTORY: Reviewed in [facility]. Please see the record. MEDICATIONS: Reviewed in [facility] and from a pulmonary point of view significant for Singulair 10 mg daily, Symbicort 160/4.5 two puffs twice a day, and albuterol p.r.n. Please see the record for the nonpulmonary medications. REVIEW OF SYSTEMS: She reports negative to a full review of systems with the exception of those things mentioned in theHPI. PHYSICAL EXAM: VITAL SIGNS: Pulse 76, weight 132 pounds, height 67 inches, O2 sat 99% on room air. GENERAL: A very pleasant cooperative lady in no acute distress, speaking in full sentences with no dyspnea or cough. HEENT: Pupils equal, reactive to light and accommodating. Extraocular movements intact. Oropharynx moist and pink. NECK: Supple without lymphadenopathy. CHEST: Clear to auscultation on my exam with moderate wheeze on forced exhalation. CARDIOVASCULAR: Heart sounds dual. No murmurs, rubs or gallops. EXTREMITIES: Calves soft and nontender. Peripheral pulses intact. No clubbing, cyanosis, or edema. RESULTS: PFTs: FVC 83%, FEV1 52%, ratio 50, FVC 81% DLCO 81%. 7% improvement in FEV1 which is not significant. Resting O2 sat 99% with heart rate 76 exercise O2 sat 98%. Exhaled nitric oxide 27 parts per billion. IMAGING: CT chest 10/07/2020: 1. Small focus of central lobular nodularity within the left upper lobe, nonspecific, though likely reflect collecting a small focus of infectious/inflammatory respiratory bronchiolitis. 2. Scattered sub-6 mm pulmonary nodules bilaterally. Given the patient's stated history of melanoma/no nodule followup are nonapplicable. 3. Mild diffusely increased density of the liver, nonspecific can be seen with mild diffuse iron deposition disease or medication effect. CT scan at [facility] 02/29/2020, images not available but report reads: 1. Small foci of tree-in-bud and clustered micro nodularity in the right upper lobe and left lower lobe consistent with infectious/inflammatory bronchiolitis. 2. Several tiny solid pulmonary nodules measuring up to 4 mm, which are indeterminate. CT followup suggested in 2-3 months given the history of melanoma. 3. Mild bilateral mosaic attenuation which likely reflect air trapping. Scattered peripheral endobronchial plugging. Findings are compatible with history of asthma. IMPRESSION: 1. Moderate obstructive asthma with FEV1 52% today on Symbicort and Singulair. 2. Previous response to prednisone. 3. Limited bronchodilator response today suggesting fixed obstruction. 4. Preserved DLCO with oxygenation. 5. 4 mm pulmonary nodules bilaterally, stable by report on 6 month scan. 6. History of melanoma. 7. Lifelong nonsmoker, but exposure to significant secondhand smoke. DISCUSSION: Megan presents to Pulmonary Medicine today to establish care. She has [address] is CT evidence of sub 4 mm nodules. By report these have been stable between February and September, I will of course obtain the outside images for direct comparison, but the stability is reassuring.Given her history of melanoma, I would favor following but the lack of growth of the nodule over 6 months argues for a benign etiology. She also has moderate airway obstruction, with fairly significant reduction in her FEV1 despite aggressive therapy. She did have some improvement on Symbicort, but I would really like to get her a little better. I suggested a 1 month course of prednisone followed by an increase in inhaler to AirDuo orlike, as Symbicort is a fairly weak inhaler. She has had headaches with Advair in the past, so thereis some risk that this will be unsuccessful or she will have further side effects, but I think it isworth a try. I would also like to check baseline asthma labs. Outside labs reviewed and I do not see any evidenceof eosinophilia, but I cannot see the IgE was checked and she does have significant allergic features. MPO and PR3 antibodies were negative at [facility] in February, so these have not been repeated. I would like to see her back in 6 weeks to assess progress after prednisone and on the new inhaler. Stay on Singulair for now. She will have labs drawn today and we will discuss these on her next visitunless there is anything of major significance in the meantime. Pathophysiology of asthma discussed in depth, all questions answered and Megan is happy with this plan. ROB CALLOWAY AKC/AQS /[id number] cc: Bj Pelletier documented in this encounter Plan of Treatment Scheduled Orders Name Type Priority Associated Diagnoses Order S chedule Spirometry PFT Routine Moderate persistent asthma E xpected: 12/25/2020, without complication Expires : 11/13/2021 documented as of this encounter Results IGE Mold Aspergillus Fumigatus (11/13/2020 9:34 AM CDT) [facility] Method Time Signature Mold 0.23 <0.35 11/13/2020 [facility] Aspergillus kU/L 6:59 PM CDT CENTRAL LAB Fumigatus, IgE Comment: Class = 0/1 Specimen Anatomical Collection Method / Collection Time Recei rosa isela Time (Source) Location / Volume Laterality Blood Venipuncture / 11/13/2020 9:34 11/13/2020 9:56 Unknown AM CDT AM CDT Narrative [facility] CENTRAL LAB - 11/13/2020 6:59 PM CDT Clinical correlation is indicated for al l class levels. Shyam RIVAS LAB_1 Performing Organization Address City/State/ZIP Code Phon e Number [facility]AL LAB [address] [address] (ABNORMAL) IgE (11/13/2020 9:34 AM CDT) [facility] gist Method Time Signature IgE,Total 185.0 (H) 0.0 - 11/13/2020 [facility] 126.9 kU/L 6:59 PM CDT CENTRAL LAB Specimen Anatomical Collection Method / Collection Time Recei rosa isela Time (Source) Location / Volume Laterality Blood Venipuncture / 11/13/2020 9:34 11/13/2020 9:56 Unknown AM CDT AM CDT Shyam RIVAS LAB_1 Performing Organization Address City/State/ZIP Code Phon e Number [facility] [address] [address] documented in this encounter Visit Diagnoses Diagnosis Moderate persistent asthma without compl ication (HRC) - Primary Unspecified asthma documented in this encounter Care Teams Disbursement Clerk Relationship Specialty Start Date End Date Bj Pelletier MD PCP - General 05/19/[address] [employer], [address] documented as of this encounter
--- OUTSIDE RECORDS SUMMARY | 2021-12-03 11:42 | XMS_ITS | Encounter Summary ---
:1955 Author Organization [facility] Address [address] [place] [address] Care Team Providers Name Role Phone Bj Pelletier MD Primary Care Provider Unavailable Encounter Details Date Type Department Care Team Description 09/05/2021 Lab Visit [facility] ry Preop general physical exam [address] [place], [place] [address] Social History Tobacco Use Types Packs/Day Years [...] exam procedure are in the results section. documented in this encounter Results (ABNORMAL) Basic Metabolic Panel (09/05/2021 1:37 PM CDT) [facility] Method Time Signature Sodium 140 136 - 145 09/05/2021 [facility] mmol/L 7:03 PM CDT CENTRAL LAB Potassium 5.4 (H) 3.5 - 5.1 09/05/2021 [facility] mmol/L 7:03 PM CDT CENTRAL LAB Chloride 103 98 - 109 09/05/2021 [facility] mmol/L 7:03 PM CDT CENTRAL LAB CO2 28 20 - 29 09/05/2021 [facility] mmol/L 7:03 PM CDT CENTRAL LAB Anion Gap 9 7 - 16 09/05/2021 [facility] mmol/L 7:03 PM CDT CENTRAL LAB Calcium 10.0 8.4 - 09/05/2021 [facility] 10.4 7:03 PM CDT CENTRAL LAB mg/dL BUN 12 7 - 26 09/05/2021 [facility] mg/dL 7:03 PM CDT CENTRAL LAB Creatinine 0.64 0.55 - 09/05/2021 [facility] 1.02 7:03 PM CDT CENTRAL LAB mg/dL GFR, Estimated >60 >60 09/05/2021 [facility] mL/min/1. 7:03 PM CDT CENTRAL LAB 73m2 Glucose 93 70 - 100 09/05/2021 [facility] mg/dL 7:03 PM CDT CENTRAL LAB Comment: The given reference range is fo r the fasting state. Non-fasting reference range for glucose is 70 - 180 mg/dL. Hours Fasting 3 09/05/2021 7:[address] [facility] Specimen Anatomical Collection Method / Collection Time Recei rosa isela Time (Source) Location / Volume Laterality Blood Venipuncture / 09/05/2021 1:37 09/05/2021 1:37 Unknown PM CDT PM CDT Nini Gillespie APRN, SUPERINTENDENT [employer] LAB_1 Performing Organization Address City/State/ZIP Code Phon e Number [facility] CENTRAL LAB [address] [address] [facility] [address] [place], [place] [phone] [address] documented in this encounter Visit Diagnoses Diagnosis Preop general physical exam Other specified pre-operative examinatio n documented in this encounter Care Teams Hydrogen Plant Operations Manager Relationship Specialty Start Date End Date Bj Pelletier MD PCP - General 05/19/[address] [facility], [facility] documented as of this encounter
--- OUTSIDE RECORDS SUMMARY | 2021-12-03 11:42 | XMS_ITS | Encounter Summary ---
:1955 Author Organization [email or web address] Address [address], [place] [address] Care Team Providers Name Role Phone Bj Pelletier MD Primary Care Provider Unavailable Reason for Visit Reason Comments UPDATE Encounter Details Date Type Department Care Team Description 11/14/2020 Telephone Specialty Center 3931 Shyam Ronquillo MBBS UPDATE Pulmonary Medicine 3931 [facility] 3931 [facility] [address] [place] [address] [place] [address] [phone] (Wo rk) Social History Tobacco Use Types Packs/Day Years Used Date Smoking Tobacco: Never Smokeless Tobacco: Never Alcohol Use Standard Drinks/Week Comments Yes 4 (1 standard drink = 0.6 oz pure alcoho l) Sex Assigned at Date Recorded Female 10/03/2020 11:17 AM CDT documented as of this encounter Nursing Notes Shari Roth RN - 11/18/2020 3:13 PM CDT Called pt and obtained her verbal authorization to sent a CARISSA for her Chest CT images from [facility] (ANTONIA Finley witnessed). CARISSA faxed. Will await disc in the mail. Gera Tran RN - 11/14/2020 4:22 PM CDT Call from imaging stating they cannot push Ct form [place] into system. Roof Plumber confirmed with imaging that [facility] CT still needs to be pushed. documented in this encounter Plan of Treatment Not on filedocumented as of this encounter Visit Diagnoses Not on filedocumented in this encounter Care Teams Commercial Lines Account Executive Relationship Specialty Start Date End Date Bj Pelletier MD PCP - General 05/19/[address] [facility], [address] documented as of this encounter
--- OUTSIDE RECORDS SUMMARY | 2021-12-03 11:42 | XMS_ITS | Encounter Summary ---
:1955 [facility] Organization [facility] Address [address] [place] [address] Care Team Providers Name Role Phone Bj Pelletier MD Primary Care Provider Unavailable Reason for Visit Reason Comments Knee Problem Encounter Details Date Type Department Care Team Description 12/12/2020 Therapy [facility], Maxwell Holder PT Acute pain of right knee (Primary Dx); Physical Therapy [address] Knee stiff, right [address] [place], [place] [phone] (Wo rk) Social History Tobacco Use Types Packs/Day Years Used Date Smoking Tobacco: Never Smokeless Tobacco: Never Alcohol Use Standard Drinks/Week Comments Yes 4 (1 standard drink = 0.6 oz pure alcoho l) Sex Assigned at Date Recorded Female 10/03/2020 11:17 AM CDT documented as of this encounter Progress Notes Symone Holder PT - 12/12/2020 5:[address] [facility] [place] [facility] Daily Note Visit Number: 10 [email or web address] Initial Certification Period: 08/28/2020 to 10/27/20 [...] Report: Patient reports that she is doing fine. States that she has not done her home exercises and apologizes for it. Reports that her knee does do not feel the same. States that it feels weaker during activities. Reports that she has been more active lately. States that driving is fine and she is able to work without increase in pain. Wants to get back into the gym. OBJECTIVE: Today???s Findings Knee ROM ([id number]-[id number]): 0-132 Strength: Quad set good TREATMENT TODAY: Therapeutic Exercise (CPT 07231) x 25 minutes: Utilized for the purpose of improving strength, ROM, endurance, and/or flexibility: Access Code: [email or web address] Exercises Upright Bike - 3 x weekly - 5 min hold Squat - 3 x weekly - 2 sets - 10 reps Walking Forward Lunge - 1 x daily - 3 x weekly - 2 sets - 10 reps Full Leg Press - 1 x daily - 3 x weekly - 2 sets - 10 reps Eccentric Single Leg Press 2 Up, 1 Down - 1 x daily - 3 x weekly - 2 sets - 10 reps Single Leg Press - 1 x daily - 3 x weekly - 2 sets - 10 reps Reverse Crunch - 1 x daily - 3 x weekly - 2 sets - 10 reps Bug - 1 x daily - 3 x weekly - 2 sets - 10 reps Single Leg Knee Extension with Weight Machine - 1 x daily - 3 x weekly - 2 sets - 10 reps (used cable) Verbal and tactile cues required to ensure correct exercise technique. Patient able to perform exercise correctly with good technique and no reports of increased pain. Patient instructed to discontinueexercise if increased pain were to occur. Patient verbalized understanding. Patient education re: symptoms with exercise: soreness/discomfort up to 3-4/10 permitted with activity Timed Code Treatment Minutes: 25 Total Treatment Minutes: 25 ASSESSMENT: Patient tolerated session well without increase in pain. Demonstrates improved tolerance to work activities. Was able to work full duty without increase in pain. Still has pain and reduce confidence onher involved LE during functional activities. Educated patient on the importance of HEP compliance, in order to extend therapeutic benefits beyond session. Patient verbalized understanding and agreement to the current HEP. Recommend continued skilled PT to address deficits and return patient to highest level of function. PLAN: Assess for discharge. EXPECTED FUNCTIONAL OUTCOMES/GOALS: HEP/Independent Management: Demonstrate independence [...] extremity alignment in 6 weeks. Therapist: Symone Holder, AKASH 5:14 PM 12/12/2020 documented in this encounter Plan of Treatment Not on filedocumented as of this encounter Visit Diagnoses Diagnosis Acute pain of right knee - Primary Knee stiff, right documented in this encounter Care Teams Deck And Hull Assembler Relationship Specialty Start Date End Date Bj Pelletier MD PCP - General 05/19/[address] [place] [address] documented as of this encounter
--- OUTSIDE RECORDS SUMMARY | 2021-12-03 11:42 | XMS_ITS | Encounter Summary ---
:1955 Author Organization [facility] Address [address] [place] [address] Care Team Providers Name Role Phone Bj Pelletier MD Primary Care Provider Unavailable Reason for Referral (Routine) - New Request Specialty Diagnoses / Procedures Referred By Contact Refer red To Contact Procedures Shyam Ronquillo MBBS Pulmonary Function Test - [facility] [facility] [address] [place], [place] [address] Referral ID Status Reason Start Date Expiration Date Visits V isits Requested Authorized [id number] New Request 12/24/2020 03/25/2022 1 1 AID Encounter Details Date Type Department Care Team Description 12/25/2020 Hospital Encounter Specialty Center 3931 Moderate persistent Pulmonary Lab asthma without [address] complication [place], [place] [id number] Social History Tobacco Use Types Packs/Day Years Used Date Smoking Tobacco: Never Smokeless Tobacco: Never Alcohol Use Standard Drinks/Week Comments Yes 4 (1 standard drink = 0.6 oz pure alcoho l) Sex Assigned at Date Recorded Female 10/03/2020 11:17 AM CDT documented as of this encounter Medications at Time of Discharge Medication Sig Dispensed Refills Start Date End Date ALBUterol sulfate HFA 108 Inhale 2 Puffs as 0 12/2014 (90 Base) MCG/ACT inhaler needed. Ascorbic Acid (VITAMIN C Take 2 Tablets by 0 07/16 OR) mouth daily. B Complex Vitamins Take by mouth daily 0 08/04/19 07 (VITAMIN B COMPLEX OR) (every 24 hours). Cholecalciferol (VITAMIN Take 2,500 Units by 0 D3) 400 UNITS CAPS mouth daily. fluticasone propionate Place 2 Sprays into 16 g 0 12/18 (FLONASE) 50 MCG/ACT nasal both nostrils solution daily. fluticasone-salmeterol Inhale 1 Puff two 3 Each 3 2020 (AIRDUO RESPICLICK) 232-14 times a day. Rinse MCG/ACT inhaler mouth/gargle after use. montelukast (SINGULAIR) 10 daily. 0 1 MG tablet Multiple Vitamin Take by mouth. 0 (MULTI-VITAMIN) tablet lisinopril (ZESTRIL) 5 MG Take 1 Tablet by 90 Tablet 3 09/1609/29/2021 tabletIndications: mouth daily. Essential hypertension (HRC) Turmeric (CURCUMIN 95) 500 0 0 09/05/2021 MG CAPS documented as of this encounter Plan of Treatment Not on filedocumented as of this encounter Procedures Procedure Name Priority Date/Time Associated Diagnosis Comme nts COMPLETE PULMONARY Routine 12/25/2020 8:47 AM [facility] FUNCTION TEST documented in this encounter Results Pulmonary Function Test - Complete (12/25/2020 8:47 AM [facility]) Specimen (Source) Anatomical Collection Method Collection Time Re ceived Time Location / / Volume Laterality 12/25/2020 8:47 AM [facility] Shyam RIVAS PN PFT ORDERABLES Performing Organization Address City/State/ZIP Code Phon e Number PN NIR documented in this encounter Visit Diagnoses Diagnosis Moderate persistent asthma without compl ication (HRC) Unspecified asthma documented in this encounter Care Teams Systems Integration Advisor Relationship Specialty Start Date End Date Bj Pelletier MD PCP - General 05/19/[address] [facility], [address] documented as of this encounter
--- OUTSIDE RECORDS SUMMARY | 2021-12-03 11:42 | XMS_ITS | Encounter Summary ---
:1955 Author Organization [facility] Address [address] [facility] [place] [address] Care Team Providers Name Role Phone Bj Pelletier MD Primary Care Provider Unavailable Reason for Referral (Routine) - New Request Specialty Diagnoses / Procedures Referred By Contact Refer red To Contact Procedures Shyam Ronquillo MBBS Pulmonary Function Test - [address] [facility] [address] Complete [place], [place] [address] Referral ID Status Reason Start Date Expiration Date Visits V isits Requested Authorized [id number] New Request 11/12/2020 02/11/2022 1 1 Encounter Details Date Type Department Care Team Description 11/13/2020 Hospital Encounter Specialty Center 3931 Moderate persistent Pulmonary Lab asthma without [address] [facility] [place], [place] [address] Social History Tobacco Use Types Packs/Day Years [...] 09/1609/29/2021 tabletIndications: mouth daily. Essential hypertension (HRC) predniSONE (DELTASONE) 10 40mg/d for 1w, 70 Tablet 0 202012/25/2020 MG tablet 30mg/d for 1w, 20mg/d for 1w, 10mg/d for 1w then stop SYMBICORT 160-4.5 MCG/ACT INHALE 2 PUFFS 2 0 05/1712/25/2020 inhaler TIMES A DAY. RINSE MOUTH WITH WATER AFTER USE TO REDUCE. DO NOT SWALLOW. Turmeric (CURCUMIN 95) 500 0 0 09/05/2021 MG CAPS documented as of this encounter Plan of Treatment Not on filedocumented as of this encounter Procedures Procedure Name Priority Date/Time Associated Diagnosis Comme nts COMPLETE PULMONARY Routine 11/13/2020 7:19 AM CDT FUNCTION TEST documented in this encounter Results Pulmonary Function Test - Complete (11/13/2020 7:19 AM CDT) Specimen (Source) Anatomical Collection Method Collection Time Re ceived Time Location / / Volume Laterality 11/13/2020 7:19 AM CDT Shyam RIVAS PN PFT ORDERABLES Performing Organization Address City/State/ZIP Code Phon e Number PN NIR documented in this encounter Visit Diagnoses Diagnosis Moderate persistent asthma without compl ication (HRC) Unspecified asthma documented in this encounter Care Teams Aerobics Instructor Relationship Specialty Start Date End Date Bj Pelletier MD PCP - General 05/19/[address] [facility], [address] documented as of this encounter
--- OUTSIDE RECORDS SUMMARY | 2021-12-03 11:42 | XMS_ITS | Encounter Summary ---
:1955 Author Organization [facility] Address [address] [place] [address] Care Team Providers Name Role Phone Bj Pelletier MD Primary Care Provider Unavailable Reason for Visit Reason Comments Knee Problem Encounter Details Date Type Department Care Team Description 11/14/2020 Therapy [facility], Maxwell Holder PT Acute pain of right knee (Primary Dx); Physical Therapy [address] Knee stiff, right [address] [place], [place] [address] [phone] (Wo rk) Social History Tobacco Use Types Packs/Day Years Used Date Smoking Tobacco: Never Smokeless Tobacco: Never Alcohol Use Standard Drinks/Week Comments Yes 4 (1 standard drink = 0.6 oz pure alcoho l) Sex Assigned at Date Recorded Female 10/03/2020 11:17 AM CDT documented as of this encounter Progress Notes Symone Holder PT - 11/14/2020 4:15 PM CDT [facility] [place] [facility] Daily Note Visit Number: 9 rosalbavel Initial Certification Period: 08/28/2020 to 10/27/20 [...] she is doing fine. States that she feels weak/unsteady when shewalks at work. Reports that her driving is going well, able to do 120 miles before pain onset. States that she will return to work full duty on Wednesday. OBJECTIVE: Today???s Findings Knee ROM (hwxrxmyhg-bkq-djpm): 0-132 Strength: Quad set good TREATMENT TODAY: Therapeutic Exercise (CPT 65879) x 25 minutes: Utilized for the purpose of improving strength, ROM, endurance, and/or flexibility: Access Code: [email or web address] Exercises Active Straight Leg Raise with Quad Set - 1 x daily - 4 x weekly - 5-7 reps - 2 sets (added weight) Supine Bridge with Resistance Band - 1 x daily - 4 x weekly - 2 sets - 10 reps Seated Hamstring Curl with Anchored Resistance - 1 x daily - 4 x weekly - 2 sets - 10 reps Squat with Chair Touch and Resistance Loop - 1 x daily - 4 x weekly - 2 sets - 10 reps Sitting Knee Extension with Resistance - 1 x daily - 4 x weekly - 2 sets - 10 reps Neutral Curl Up with Straight Leg - 2 x daily - 5 reps - 10 hold Clamshell holds - 1 x daily - 1 reps - 30 hold Clamshell - 1 x daily - 10 reps Lunge with Counter Support - 1 x daily - 4 x weekly - 2 sets - 5 reps Seated Knee Extension Stretch with Chair [...] baseline restored) . Timed Code Treatment Minutes: 25 Total Treatment Minutes: 25 ASSESSMENT: Patient tolerated session well without increase in pain. Demonstrates improved activity tolerance, as she is able to increase driving distance before pain onset. Continues to experience knee discomfort/weakness when walking. Educated patient on the importance of HEP compliance, in order to extend therapeutic benefits beyond session. Patient verbalized understanding and agreement to the current HEP Will return to work full duty on 11/18/20. Recommend continued skilled PT to address deficits and returnpatient to highest level of function. PLAN: Progress HEP. Progress functional exercises. EXPECTED FUNCTIONAL OUTCOMES/GOALS: HEP/Independent Management: Demonstrate independence [...] in 6 weeks. Therapist: Symone Holder PT 4:20 PM 11/14/2020 documented in this encounter Plan of Treatment Not on filedocumented as of this encounter Visit Diagnoses Diagnosis Acute pain of right knee - Primary Knee stiff, right documented in this encounter Care Teams Deck Steward Relationship Specialty Start Date End Date Bj Pelletier MD PCP - General 05/19/[address] [facility], [address] documented as of this encounter
--- OUTSIDE RECORDS SUMMARY | 2021-12-03 11:42 | XMS_ITS | Encounter Summary ---
:1955 Author Organization [facility] Address [address] [place] [address] Care Team Providers Name Role Phone Bj Pelletier MD Primary Care Provider Unavailable Reason for Visit Reason Comments Follow-up Encounter Details Date Type Department Care Team Description 12/25/2020 Office Visit Specialty Center Shyam Ronquillo, Mode rate persistent 3931 Pulmonary MBBS asthma without Medicine [address] complication (Primary [address] Dx) [place] [address] [phone] (Wo rk) Social History Tobacco Use Types Packs/Day Years Used Date Smoking Tobacco: Never Smokeless Tobacco: Never Alcohol Use Standard Drinks/Week Comments Yes 4 (1 standard drink = 0.6 oz pure alcoho l) Sex Assigned at Date Recorded Female 10/03/2020 11:17 AM CDT documented as of this encounter Last Filed Vital Signs Vital Sign Reading Time Taken Comments Blood Pressure - - Pulse 73 12/25/2020 9:04 AM [employer] Temperature - - Respiratory Rate - - Oxygen Saturation 98% 12/25/2020 9:04 AM [employer] Inhaled Oxygen Concentration - - Weight 59.9 kg (132 lb) 12/25/2020 9:04 AM [employer] Height 162.6 cm (5' 4) 12/25/2020 9:04 AM [employer] Body Mass Index 22.66 12/25/2020 9:04 AM [employer] documented in this encounter Progress Notes Shyam Ronquillo MBBS - 12/25/2020 9:15 AM CST eMgan العلي is a 65 y.o. female here today for follow up of moderately severe persistent asthma SUBJECTIVE: 1st came to see me in late October 2020 to establish care. She had been seen at [facility] in February 2020 for dyspnea and diagnosed with moderate obstructive asthma with limited reversibility. She had a background of asthma as a teenager, but symptoms had improved during her early adult could. In r etrospect she thinks she has had insidious onset shortness of breath for perhaps 10 years. Workup at [facility] showed FEV1 46% predicted and she was started on Symbicort Singulair and Flonase, with some improvement but minimal. On our first visit FEV1 was 52% predicted. Labs at [facility] and then with me showed negative vasculitis panel, negative Aspergillus IgE, normal eosinophils, and borderline elevated IgE at 185. I started her on a long slow taper of prednisone and changed her from Symbicort to AirDuo, while keeping her on Singulair. She returns after of 4-5 week prednisone taper. She felt some improvement at higher doses but significant side effects, and benefit waned at lower doses. She now feels much the same as she did when we first met. Repeat spirometry today confirms this with FEV1 still 52% predicted. Additionally she has multiple tiny pulmonary nodules and history of melanoma, we are following theseand there has been no growth between February 2020 and October 2020. OBJECTIVE: Filed Vitals: 12/25/20 0904 Pulse: 73 SpO2: 98% Weight: 132 lb (59.9 kg) Height: 5' 4 (1.626 m) General: Alert, oriented. Entire visit devoted to results and discussion. RESULTS: Lab Visit on 11/13/2020 Component Date Value ??? IgE,Total 11/13/2020 185.0* ??? Mold Aspergillus Fumigat* 11/13/2020 0.23 ??? WBC 11/13/2020 8.1 ??? RBC 11/13/2020 3.99 ??? Hemoglobin 11/13/2020 12.4 ??? HCT 11/13/2020 38.7 ??? MCV 11/13/2020 97.0 ??? MCH 11/13/2020 31.1 ??? MCHC 11/13/2020 32.0 ??? RDW 11/13/2020 12.3 ??? Platelets 11/13/2020 297 ??? Automated NRBC 11/13/2020 0 ??? Neutrophil Absolute 11/13/2020 6.1 ??? Lymphocyte Absolute 11/13/2020 1.3 ??? Monocytes Absolute 11/13/2020 0.5 ??? Eosinophil Absolute 11/13/2020 0.1 ??? Basophil Absolute 11/13/2020 0.0 ??? Immature Gran % 11/13/2020 0.4 Radiology: CT chest 10/07/2020: 1. Small focus of [...] disease or medication effect. CT scan at [facility] 02/29/2020, images not available but report reads: [...] Findings are compatible with history of asthma. PFTs: December 25, 2020 FVC 76 %, FEV1 52 %, ratio 55. November 13 PFTs: FVC 83%, FEV1 52%, ratio 50, FVC 81% DLCO 81%. 7% improvement in FEV1 which is not significant. Resting O2 sat 99% with heart rate 76 exercise O2 sat 98%. Exhaled nitric oxide 27 parts per billion. ASSESSMENT: 1. Moderate obstructive asthma with FEV1 52%, unchanged after prednisone burst 2. Previous response to prednisone per report 3. Limited bronchodilator response suggesting fixed obstruction. 4. Preserved DLCO with oxygenation. 5. 4 mm pulmonary nodules bilaterally, stable by report on 6 month scan. 6. History of melanoma. 7. Lifelong nonsmoker, but exposure to significant secondhand smoke. ?? PLAN: Megan has refractory moderately severe airway obstruction. This was diagnosed as asthma at [facility], and asthma is the most common cause of airway obstruction. However it is somewhat unusual that she has not responded to a prolonged prednisone course, and that she has limited reversibility. Certainly this could be chronic obstructive asthma but there are other rarer possibilities also. Airflow is stable today but no better. Options discussed. I favor continuing to trend, but if she does lose airflow in coming months to years we may need be more invasive in workup, and obtain surgicallung biopsy. In order to delineate this airway disease further, on her next repeat scan due in October 2021 I will order high-resolution CT scan. I am reluctant to do this now as she has had 3 scans in the last 6months. I will plan to see her back in spring with repeat spirometry and diffusion, a if this is stable willthen repeat scan in the fall. She has issues in the meantime she will let me know. She will work on her home allergens, she is in the process of changing from carpeted floors to hardwood floors which hopefully will help. She also intends to retire next year. Discussed in depth, all questions answered and Megan is happy with this plan. TT30 CT20 DT10 ROB Carmona 12/25/2020 Pulmonary Medicine. [employer] documented in this encounter Plan of Treatment Scheduled Orders Name Type Priority Associated Diagnoses Order S chedule Spirometry with PFT Routine Moderate persistent asthm a Expected: 04/24/2021, Diffusion without complication Expires : 12/25/2021 documented as of this encounter Visit Diagnoses Diagnosis Moderate persistent asthma without compl ication (HRC) - Primary Unspecified asthma documented in this encounter Care Teams Binder Folder Operator Relationship Specialty Start Date End Date Bj Pelletier MD PCP - General 05/19/[address] [place], [address] documented as of this encounter
--- OUTSIDE RECORDS SUMMARY | 2021-12-03 11:43 | XMS_ITS | Encounter Summary ---
:1955 Author [facility] Address [address] [address] Care Team Providers Name Role Phone Bj Pelletier MD Primary Care Provider Unavailable Reason for Visit Procedure/Equipment (Routine) - Incomplete Specialty Diagnoses / Procedures Referred By Contact Refer red To Contact Diagnoses Right knee pain, unspecified chronicity Rafiq Chen MD Procedures XR Knee Lt 1-2 Views Comparison [address] [place] [address] Referral ID Status Reason Start Date Expiration Date Visits V isits Requested Authorized [id number] Incomplete 08/05/2020 11/04/2021 1 1 Encounter Details Date Type Department Care Team Description 08/05/2020 [facility] Rafiq Leblanc Right knee pain, Procedure [place] [address] MD Ana Laura unspecified Radiology [address] chronicity [address] [place] [place] [address] [address] [place], [place] [phone] (Work) [phone] Social History Tobacco Use Types Packs/Day Years [...] Name Priority Date/Time Associated Diagnosis Comme nts XR KNEE LT 1-2 VIEWS Routine 08/05/2020 4:55 PM Right knee ihsan n, Results for this COMPARISON CDT unspecified procedure are i n chronicity the results section. documented in this encounter Results XR Knee Lt 1-2 Views Comparison (08/05/2020 4:55 PM CDT) Anatomical Region Laterality Modality Lower Extremity, Knee Digital Radiograph y Specimen (Source) Anatomical Collection Method Collection Time Re ceived Time Location / / Volume Laterality 08/05/2020 4:47 PM CDT Impressions 08/05/2020 5:11 PM CDT COMPARISON: ??None. FINDINGS: ??Right knee 3 views: There is moderately severe patellofemoral joint space narrowing and moderate marginal spurring. Mild medial and lateral compartment marginal spurring with normal joint spaces. No fracture or effusion identified. Left knee 2 views: There is mild patello femoral degenerative change. There is minimal narrowing of the medial compartment. Bones and joint spaces appear otherwise within normal limits. Procedure Note Murali Gaston MD - 08/05/2020Forma tting of this note might be different from the original. IMPRESSION COMPARISON: None. FINDINGS: Right knee 3 views: There is m oderately severe patellofemoral joint space narrowing and moderate marginal spurring. Mild medial and lateral compartment marginal spurring with normal joint spaces. No fracture or effusion identified. Left knee 2 views: There is mild patello femoral degenerative change. There is minimal narrowing of the medial compartment. Bones and joint spaces appear otherwise within normal limits. Rafiq Chen MD RAD GD XR Knee Rt 3 Views (08/05/2020 4:54 PM CDT) Anatomical Region Laterality Modality Lower Extremity, Knee Digital Radiograph y Specimen (Source) Anatomical Collection Method Collection Time Re ceived Time Location / / Volume Laterality 08/05/2020 4:47 PM CDT Impressions 08/05/2020 5:11 PM CDT COMPARISON: ??None. FINDINGS: ??Right knee 3 views: There is moderately severe patellofemoral joint space narrowing and moderate marginal spurring. Mild medial and lateral compartment marginal spurring with normal joint spaces. No fracture or effusion identified. Left knee 2 views: There is mild patello femoral degenerative change. There is minimal narrowing of the medial compartment. Bones and joint spaces appear otherwise within normal limits. Procedure Note Murali Gaston MD - 08/05/2020Forma tting of this note might be different from the original. IMPRESSION COMPARISON: None. FINDINGS: Right knee 3 views: There is m oderately severe patellofemoral joint space narrowing and moderate marginal spurring. Mild medial and lateral compartment marginal spurring with normal joint spaces. No fracture or effusion identified. Left knee 2 views: There is mild patello femoral degenerative change. There is minimal narrowing of the medial compartment. Bones and joint spaces appear otherwise within normal limits. Rafiq Chen MD RAD GD documented in this encounter Visit Diagnoses Diagnosis Right knee pain, unspecified chronicity Right knee pain, unspecified chronicity documented in this encounter Care Teams Turner And Former Automatic Relationship Specialty Start Date End Date Bj Pelletier MD PCP - General 05/19/[address] [facility], [address] documented as of this encounter
--- OUTSIDE RECORDS SUMMARY | 2021-12-03 11:43 | XMS_ITS | Encounter Summary ---
:1955 Author Organization [facility] Address [address] [place] [address] Care Team Providers Name Role Phone Bj Pelletier MD Primary Care Provider Unavailable Reason for Visit Reason Comments Reschedule Appointment Encounter Details Date Type Department Care Team Description 08/28/2020 Telephone [facility], Chevy Weber Reschedule Appointment Physical Therapy S, [facility] [address] [facility] [address] [facility] [place], [place] [address] [place], [place] [phone] (Wo rk) Social History Tobacco Use Types Packs/Day Years Used Date Smoking Tobacco: Never Smokeless Tobacco: Never Alcohol Use Standard Drinks/Week Comments Yes 4 (1 standard drink = 0.6 oz pure alcoho l) Sex Assigned at Date Recorded Female 10/03/2020 11:17 AM CDT documented as of this encounter Nursing Notes Niru Banuelos - 08/28/2020 1:53 PM CDT Has the patient recently had surgery or an injury? No LVM to see if patient can come in at 315, okay to schedule over admin time per AM. documented in this encounter Plan of Treatment Not on filedocumented as of this encounter Visit Diagnoses Not on filedocumented in this encounter Care Teams Donor Relations Associate Relationship Specialty Start Date End Date Bj Pelletier MD PCP - General 05/19/[address] [facility], [facility] documented as of this encounter
--- OUTSIDE RECORDS SUMMARY | 2021-12-03 11:43 | XMS_ITS | Encounter Summary ---
:1955 Author Organization [facility] Address [address] [address] Care Team Providers Name Role Phone Bj Pelletier MD Primary Care Provider Unavailable Reason for Visit Reason Comments Orders Needed Encounter Details Date Type Department Care Team Description 10/15/2020 Telephone [place] [address] Family Francisco Javier Parada PA-C Orders Needed Medicine [address] [facility] [address] [place] [address] [place] [address] [phone] Social History Tobacco Use Types Packs/Day Years Used Date Smoking Tobacco: Never Smokeless Tobacco: Never Alcohol Use Standard Drinks/Week Comments Yes 4 (1 standard drink = 0.6 oz pure alcoho l) Sex Assigned at Date Recorded Female 10/03/2020 11:17 AM CDT documented as of this encounter Nursing Notes Antonina Nice - 10/15/2020 2:03 PM CDT Orders - Imaging What imaging order is being requested? CT Chest with contrast Why is this order being requested? Pt states wrong test was ordered and insurance is approved for the scan with contrast When were you seen last for this concern? By whom? 10/06/20, Francisco Javier Parada PA Additional comments (related to the above concern): Is it okay to leave a detailed message on your voicemail? Yes (Advise caller that the PN call back number will end with [phone] or unknown) (Instruct patient to check with insurance company for coverage) Please route to: MONIE Walsh documented in this encounter Plan of Treatment Not on filedocumented as of this encounter Visit Diagnoses Diagnosis Pulmonary nodule - Primary Solitary pulmonary nodule documented in this encounter Care Teams Offset Press Operator Apprentice Relationship Specialty Start Date End Date Bj Pelletier MD PCP - General 05/19/[address] [facility], [address] documented as of this encounter
--- OUTSIDE RECORDS SUMMARY | 2021-12-03 11:43 | XMS_ITS | Encounter Summary ---
:1955 Author Organization [facility] Address [address] [place] [address] Care Team Providers Name Role Phone Bj Pelletier MD Primary Care Provider Unavailable Reason for Visit Reason Comments Knee Problem Encounter Details Date Type Department Care Team Description 10/16/2020 Therapy [facility], Maxwell Holder PT Acute pain of right knee (Primary Dx); Physical Therapy [address] Knee stiff, right [address] [place], [place] [address] [phone] (Wo rk) Social History Tobacco Use Types Packs/Day Years Used Date Smoking Tobacco: Never Smokeless Tobacco: Never Alcohol Use Standard Drinks/Week Comments Yes 4 (1 standard drink = 0.6 oz pure alcoho l) Sex Assigned at Date Recorded Female 10/03/2020 11:17 AM CDT documented as of this encounter Progress Notes Symone Holder PT - 10/16/2020 9:45 AM CDT [facility] [place] [facility] Daily Note Visit Number: 3 lubna Initial Certification Period: 08/28/2020 to 10/27/20 Referring [...] she is doing well overall. States that her knee was stiff today. Reports that she feels stronger and that she is able to walk and drive longer. Still has pain/discomfort with increased activity. OBJECTIVE: Today???s Findings Knee ROM (ifuqqsfay-uqb-ctia): 0-132 Strength: Quad set good TREATMENT TODAY: Therapeutic Exercise (CPT 05293) x 15 minutes: Utilized for the purpose of improving strength, ROM, endurance, and/or flexibility: Access Code: [email or web address] Exercises -leg press (10#, 20#) -Squats to 90 degree with UE support -Long arc quad -Standing TKEs -Standing SLR Therapeutic Activities (CPT 45774) x 10 minutes: Dynamic activities utilized to improve functional performance. -Forward step up 6 2 x 10 -Lateral step ups 6 2 x 10 bilateral -Step down 6 2 x 10 -Stairs training *cueing for sequence Verbal and tactile cues required to ensure correct exercise technique. Patient able to perform exercise correctly with good technique and no reports of increased pain. Patient instructed to discontinueexercise if increased pain were to occur. Patient verbalized understanding. . Timed Code Treatment Minutes: 25 Total Treatment Minutes: 25 ASSESSMENT: Patient tolerated session well without increase in pain. Able to progress overall volume and mode ofexercise during today's session. Demonstrates difficulty with eccentric control during step-down exercises. No longer experiences anterior knee discomfort during quad strengthening exercises. Recommendcontinued skilled PT to address deficits and return patient to highest level of function. PLAN: Progress step exercises. Leg press. Sled push/pull. Balance. Progress HEP. Discuss gym plan. EXPECTED FUNCTIONAL OUTCOMES/GOALS: HEP/Independent Management: Demonstrate independence [...] alignment in 6 weeks. Therapist: Symone Holder, PT 9:52 AM 10/16/2020 documented in this encounter Plan of Treatment Not on filedocumented as of this encounter Visit Diagnoses Diagnosis Acute pain of right knee - Primary Knee stiff, right documented in this encounter Care Teams Aprn Relationship Specialty Start Date End Date Bj Pelletier MD PCP - General 05/19/[address] [facility], [address] documented as of this encounter
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
--- OUTSIDE RECORDS SUMMARY | 2021-12-03 11:43 | XMS_ITS | Encounter Summary ---
:1955 Author Organization [facility] Address [address] [place] [address] Care Team Providers Name Role Phone Bj Pelletier MD Primary Care Provider Unavailable Reason for Visit Reason Comments CONGESTION, SINUS Encounter Details Date Type Department Care Team Description 01/15/2020 Hospital Encounter [place] [address] [address]io [address]on [facility]; Urgent Care DMD Acute sinusitis, recurrence not specifie d, unspecified location [address] [facility] [address] [place], [place] [phone] [address] Social History Tobacco Use Types Packs/Day Years Used Date Smoking Tobacco: Never Smokeless Tobacco: Never Alcohol Use Standard Drinks/Week Comments Yes 4 (1 standard drink = 0.6 oz pure alcoho l) Sex Assigned at Date Recorded Female 10/03/2020 11:17 AM CDT documented as of this encounter Last Filed Vital Signs Vital Sign Reading Time Taken Comments Blood Pressure 147/85 01/15/2020 2:51 PM SOLUTION DESIGN ENGINEER Pulse 76 01/15/2020 2:51 PM SOLUTION DESIGN ENGINEER Temperature 36.4 ??C (97.5 ??F) 01/15/2020 2:51 PM SOLUTION DESIGN ENGINEER Respiratory Rate 16 01/15/2020 2:51 PM SOLUTION DESIGN ENGINEER Oxygen Saturation 99% 01/15/2020 2:51 PM SOLUTION DESIGN ENGINEER Inhaled Oxygen Concentration - - Weight - - Height - - Body Mass Index - - documented in this encounter Medications at Time of [...] 50 MCG/ACT nasal both nostrils solution daily. Multiple Vitamin Take by mouth. 0 (MULTI-VITAMIN) tablet lisinopril (ZESTRIL) 5 MG 0 03/23/2017 10/07/2020 tablet documented as of this encounter ED Notes Rosalio Salmeron MD - 01/15/2020 3:28 PM CST Patient ID: Megan العلي Date of : 1955 SUBJECTIVE: 64 y.o. female presents with Megan العلي is a 64 y.o.female presents to the Urgent Care for CONGESTION, SINUS Symptoms began 2 week(s) ago. Fever is absent. Other associated symptoms include Sinus congestion, bilateral ear drainage, headache, nausea. Any recent close contact with an individual with a known similar illness no. Patient was seen two weeks ago here and completed a course of doxycycline. She wouldalso like to get tested for COVID. Medications: ALBUterol sulfate HFA, Ascorbic Acid, B Complex Vitamins, Multi- Vitamin, Vitamin D3, doxycycline monohydrate, fluticasone propionate, and lisinopril Allergies: Allergies Allergen Reactions ??? Tobacco [Tobacco] Breathing Difficulty ??? Amoxicillin rash ??? Cat Hair Extract ??? Other PN: LW Other1: -CATS ??? Sulfa Antibiotics Rash ??? Sulfamethoxazole-Trimethoprim PN: LW Reaction: Rash, Generalized ??? Tramadol Nausea Headache Weirdness And sick nasuea, vomiting OBJECTIVE: General: Appears well in no distress. Vitals: Blood pressure (!) 147/85, pulse 76, temperature 36.4 ??C (97.5 ??F), temperature source Oral, resp. rate 16, SpO2 99 %. HEENT: Head is normocephalic and atraumatic, EOM's intact. Oropharynx normal. External auditory canals are without drainage. She is tender over her frontal and maxillary sinus on the left. NECK: Full range of motion is noted. MUSCULOSKELETAL: Normal appearance range of motion appeared normal. Patient ambulated without difficulties. Pulmonary: Clear bilaterally no rhonchi wheezes or crackles present. Cardio: Regular rate rhythm without murmurs. NEURO: Cranial nerves 2-12 appear grossly intact, there are no focal deficits present. SKIN: [place] warm and dry without rashes in the hands face or neck. UC Course: Labs Reviewed 2018 NOVEL CORONAVIRUS ASSESSMENT: Diagnoses of Cough and Acute sinusitis, recurrence not specified, unspecified location were pertinent to this visit. PLAN: Discharge Medication List as of 01/15/2020 3:28 PM START taking these medications Details doxycycline monohydrate (MONODOX) 100 MG capsule Take 1 Capsule by mouth two times a day for 10 days., Disp-20 Capsule, R-0, BID Starting 01/15/2020, Until Julia 01/25/2020, For 10 days, Oral, NormalPharmacy may substitute hyclate or monohydrate tab or capsule based on insurance fluticasone propionate (FLONASE) 50 MCG/ACT nasal solution Place 2 Sprays into both nostrils daily.,Disp-16 g, R-0, DAILY Starting Wed01/15/2020, Both Nostrils, Normal I told her to quarantine herself until the COVID result is back. She should also take a probiotic [id number]. Follow up with primary care physician in 3 - 5 days or sooner if symptoms worsen. May return here orgo to the ER if worsening or concerns. Call here if any concerns whatsoever. TION DESIGN ENGINEER Gina Anand RN - 01/15/2020 3:28 PM CST The Pt. called the dept. To state she was suppose to get a prescription of Augmentin. Informed pt. Per Dr. Salmeron that he did not prescribe Augmentin as it was listed in her chart that she had a rash reaction to Amoxicillin. I told the patient that Amoxicillin was in Augmentin and she had Amoxicillin listed as an allergy. Patient states she had no allergy to Amoxicillin. I told pt. That per her request that I would remove Amox. As an allergy from her chart and that I would inform Dr. Salmeron that shedid not have an allergy to Amox. Patient was in agreement with this. TION DESIGN ENGINEER documented in this encounter Plan of Treatment Not on filedocumented as of this encounter Procedures Procedure Name Priority Date/Time Associated Comments Diagnosis 2019 NOVEL Routine 01/15/2020 3:15 PM Cough Results f or this CORONAVIRUS SOLUTION DESIGN ENGINEER procedure are i n the results section. documented in this encounter Results 2019 Novel Coronavirus (COVID-19) (01/15/2020 3:15 PM SOLUTION DESIGN ENGINEER) [facility] Method Time Signature SARS Cov-2 Not Provided 01/17/2020 [facility] 3:04 PM [facility] DESIGN [facility] Comment: Specimen source was not provided. ??Plea se refer to the [facility] Test Directory for validated specimen source information: http://www.[employer]/test ing. ??Interpret results with caution. SARS-CoV-2 by PCR Not Detected 01/17/2020 3:04 PM SOLUTION DESIGN ENGINEER [facility] Comment: INTERPRETIVE INFORMATION: SARS-CoV-2 (CO VID-19) by [place] This test should be ordered for the dete ction of the 2019 novel coronavirus SARS-CoV-2 in individuals wh o meet SARS-CoV-2 clinical and/or epidemiological criteria. The Coronavirus SARS-CoV-2 (COVID-19) by nucleic acid amplification test is for in vitro diagn ostic use under the FDA Emergency Use Authorization (EUA) for US laboratories certified under CLIA to perform high complexity te sts. This test has not been FDA cleared or approved. In complia nce with this authorization, please visit [email or web address]-disea se/coronavirus for more information and to access the applicable information sheets. Not Detected results do not rule out the presence of PCR inhibitors in the patient specimen or as say specific nucleic acid in concentrations below the level of det ection by the assay. Detected results are indicative of the p resence of SARS-CoV-2 RNA. Due to the complexity of nucleic acid am plification methodologies, there may be a risk of false positive re sults. Clinical correlation with patient history and oth er diagnostic information is necessary to determine patient infect ion status. Reliable results are dependent on adequa te specimen collection, transport, storage, and handling. Performed by [facility], [address] [place] [address] www.[employer], Latoya Cheek MD, La b. Director Specimen Anatomical Collection Method Collection Time Receive d Time (Source) Location / / Volume Laterality Swab (Source Non-blood 01/15/2020 3:15 PM 0 3:50 Required) Collection / SOLUTION DESIGN ENGINEER PM SOLUTION DESIGN ENGINEER Unknown Rosalio Salmeron MD LAB_1 Performing Organization Address City/State/ZIP Code Phon e Number [employer] [address] [place], [place] [address] documented in this encounter Visit Diagnoses Diagnosis Cough Acute sinusitis, recurrence not specifie d, unspecified location Triage Assessment Note - Sue Stahl RN - 01/15/2020 2:48 PM CST Megan العلي is a 64 y.o.female presents to the Urgent Care for CONGESTION, SINUS Symptoms began 2 week(s) ago. Fever is absent. Other associated symptoms include Sinus congestion, bilateral ear drainage, headache, nausea. Any recent close contact with an individual with a known similar illness no. Patient was seen two weeks ago here and completed her antibiotic. TION DESIGN ENGINEER documented in this encounter Additional Health Concerns Infection Onset Date Last Indicated Resolved Time R/O COVID19 01/15/2020 01/15/2020 01/17/2020 4:04 PM SOLUTION DESIGN ENGINEER documented as of this encounter Care Teams Secondary Education Professor Relationship Specialty Start Date End Date Bj Pelletier MD PCP - General 05/19/[address] [place], [address] documented as of this encounter
--- OUTSIDE RECORDS SUMMARY | 2021-12-03 11:43 | XMS_ITS | Encounter Summary ---
:1955 [facility] Address [address] [place] [address] Care Team Providers Name Role Phone Bj Pelletier MD Primary Care Provider Unavailable Encounter Details Date Type Department Care Team Description 10/16/2020 Orders Only Initial Department [facility] SAUL VERA MD [place], [place] [address] Interface provider [phone] [place] [address] Social History Tobacco Use Types Packs/Day Years [...] Name Priority Date/Time Associated Diagnosis Comme nts CT 10/16/2020 Results for thi s procedure are in the resu lts section. documented in this encounter Results CT (10/16/2020) Anatomical Region Laterality Modality Other Narrative This result has an attachment that is no t available. Interface Provider DUMMY/OTHER/AR documented in this encounter Visit Diagnoses Not on filedocumented in this encounter Care Teams Bakery Machine Mechanic Supervisor Relationship Specialty Start Date End Date Bj Pelletier MD PCP - General 05/19/[address] [facility] [address] documented as of this encounter
--- OUTSIDE RECORDS SUMMARY | 2021-12-03 11:43 | XMS_ITS | Encounter Summary ---
:1955 Author Organization [facility] Address [address] [address] Care Team Providers Name Role Phone Bj Pelletier MD Primary Care Provider Unavailable Reason for Visit Procedure/Equipment (Routine) - Incomplete Specialty Diagnoses / Procedures Referred By Contact Refer red To Contact Procedures Provider, Foreign Images Foreign Image(S) CT Chest [address] [place] [address] Referral ID Status Reason Start Date Expiration Date Visits V isits Requested Authorized [id number] Incomplete 11/15/2020 02/14/2022 1 1 Encounter Details Date Type Department Care Team Description 02/29/2020 Ancillary Procedure [facility] PACS Provider, [address] [place] [address] [address] [place] [address] Social History Tobacco Use Types Packs/Day Years [...] Name Priority Date/Time Associated Diagnosis Comme nts FOREIGN IMAGE(S) CT Routine 02/29/2020 11:35 AM R esults for this CHEST TOBACCO PREVENTION HEALTH EDUCATOR procedure are i n the results section. documented in this encounter Results Foreign Image(S) CT Chest (02/29/2020 11:35 AM TOBACCO PREVENTION HEALTH EDUCATOR) Specimen (Source) Anatomical Location Collection Method / Collectio n Time Received Time / Laterality Volume Narrative POCT - 11/15/2020 11:33 AM CDT These outside images have been uploaded into PACS. If the results were provided, they will be located in the pa aryannt's chart under the Media or Imaging tab. Foreign Images Provider RAD NON-REPORTABLES Performing Organization Address City/State/ZIP Code Phon e Number POCT documented in this encounter Visit Diagnoses Not on filedocumented in this encounter Care Teams Geothermal Powerplant Mechanic Helper Relationship Specialty Start Date End Date Bj Pelletier MD PCP - General 05/19/[address] [facility], [address] documented as of this encounter
--- OUTSIDE RECORDS SUMMARY | 2021-12-03 11:43 | XMS_ITS | Encounter Summary ---
:1955 Author Organization [facility] Address [address] [place] [address] Care Team Providers Name Role Phone Bj Pelletier MD Primary Care Provider Unavailable Reason for Visit Reason Comments Knee Problem Encounter Details Date Type Department Care Team Description 09/18/2020 Therapy [facility], Maxwell Holder PT Acute pain of right knee (Primary Dx); Physical Therapy [address] Knee stiff, right [address] [place], [place] [address] [phone] (Wo rk) Social History Tobacco Use Types Packs/Day Years Used Date Smoking Tobacco: Never Smokeless Tobacco: Never Alcohol Use Standard Drinks/Week Comments Yes 4 (1 standard drink = 0.6 oz pure alcoho l) Sex Assigned at Date Recorded Female 10/03/2020 11:17 AM CDT documented as of this encounter Progress Notes Symone Holder PT - 09/18/2020 1:15 PM CDT [facility] [place] Physical Therapy Daily Note Visit Number: 3 [...] Status: WBAT Patient Report: Patient reports that her knee feels good overall. States that she spent the majority of her weekend on her feet, but was very sore after. Patient reports that she has not been able to do her exercises as she would like. OBJECTIVE: Today???s Findings Knee ROM (bxercbjzm-aug-tkrz): 1-132 Strength: Quad set good TREATMENT TODAY: Therapeutic Exercise (CPT 07630) x 14 minutes: Utilized for the purpose of improving strength, ROM, endurance, and/or flexibility: Access Code: [email or web address] -Heel slides -Knee extension stretch on towel x 1 min -Quad set 5 x 10 -ASLR *Cueing for eccentric control 2 x 10 -Bridge (5s hold at end range) 2 x 10 Verbal and tactile cues required to ensure correct exercise technique. Patient able to perform exercise correctly with good technique and no reports of increased pain. Patient instructed to discontinueexercise if increased pain were to occur. Patient verbalized understanding. Neuromuscular Re-education (CPT 53535) x 10 minutes: Utilized to improve deficits in movement, balance, coordination, kinesthetic sense, posture, and/or proprioception. -Abdominal bracing * verbal and tactile cues provided for mm. activation -Supine april 16 x10 -Supine curl-up 5 x 10 Therapeutic Activities (CPT 66345) x 8 minutes: Dynamic activities utilized to improve functional performance. -Stair practice on 12 6 steps (Up and down) *cueing for step sequence, foot placement for reciprocal step pattern. -Discussion on walking, driving and stairs modifications and gradual progressions. Discussion on techniques and how to self monitor for symptoms. Patient education re: symptoms with exercise: soreness/discomfort up to 3-4/10 permitted with activity, observe for full return to normal symptom baseline within 24 hrs, no increase in pain or swelling>24 hours after activity (if symptoms remain elevated, reduce activity level until baseline restored) . Timed Code Treatment Minutes: 32 Total Treatment Minutes: 32 ASSESSMENT: Patient tolerated session well without increase in pain. Demonstrated significant improvement in knee ROM. Demonstrates improvements in quad activation, but is still limited compared to L. Patient was able to navigate stairs with a reciprocal step pattern. Patient demonstrates difficulty with terminalknee extension during gait. Patient also displays difficulty with tolerating positions of full knee extension. Recommend continued skilled PT to address deficits and return patient to highest level of function. PLAN: TKE. Step up exercises. Leg press. Sled push/pull. Balance. Progress HEP. Standing therapeutic exercises. EXPECTED FUNCTIONAL OUTCOMES/GOALS: HEP/Independent Management: Demonstrate [...] in 6 weeks. Therapist: Symone Holder PT 1:15 PM 09/18/2020 documented in this encounter Plan of Treatment Not on filedocumented as of this encounter Visit Diagnoses Diagnosis Acute pain of right knee - Primary Knee stiff, right documented in this encounter Care Teams Career Law Clerk Relationship Specialty Start Date End Date Bj Pelletier MD PCP - General 05/19/[address] [facility] [place], [address] documented as of this encounter
--- OUTSIDE RECORDS SUMMARY | 2021-12-03 11:43 | XMS_ITS | Encounter Summary ---
:1955 Author Organization [facility] Address [address] [place] [address] Care Team Providers Name Role Phone Bj Pelletier MD Primary Care Provider Unavailable Reason for Referral Therapies (Routine) - Closed Specialty Diagnoses / Procedures Referred By Contact Refer red To Contact Diagnoses Primary [place] [address] [place] [address] Referral ID Status Reason Start Date Expiration Date Visits Requ ested Visits Authorized Closed 12/03/2019 02/01/2020 1 1 Scheduling Instructions Your provider has recommended an appoint ment with [facility] [place]. You may call [phone] to schedule your appoi ntment. We suggest you call your health insurance company about your coverage an d benefits for this appointment. Reason for Visit Reason Comments Follow-up Lumbar spine MRI Result Follow-up Right shoulder ongoing pain Encounter Details Date Type Department Care Team Description 12/03/2019 Office Visit [facility] Orthopedic Rafiq Chen, Cyndi y osteoarthritis Urgent Care MD of right shoulder [address] [address] [address] (Primary Dx) [place] [id number] Social History Tobacco Use Types Packs/Day Years [...] - - Temperature 36.3 ??C (97.4 ??F) 12/03/2019 12:59 PM CDT Respiratory Rate - - Oxygen Saturation - - Inhaled Oxygen Concentration - - Weight - - Height - - Body Mass Index - - documented in this encounter Patient Instructions Patient InstructionsCandis Patel LPN - 12/03/2019 12:[address] Otis Crump MD [facility] [place] [facility] Nurse Line: [phone] Please contact Orthopedic Urgent Care line for all requests and questions. Medication Requests: Prescriptions are not filled on Weekends or on Weekdays after 3:00PM For all medication refills: Request a refill using INFUSDhart or contact your Pharmacy To schedule appointments: [phone] Paperwork Requests: FMLA or disability paperwork can be faxed to: [phone] Medical records: [phone] (option 4) [employer] E-mail Address: [email or web address] Diagnosis: 1. Lumbar spondylosis 2. Advanced right glenohumeral osteoarthritis Plan: - Follow-up with Spine Clinic if no improvement in back with chiropractic treatments - Physical therapy for shoulder, could consider TSA with Dr. Curiel/Dr. Patel if no improvement Your Provider would like you to schedule a Follow up with Spine Clinic for lumbar spine and Dr. Curiel or Dr. Patel for shoulder if symptoms fail to resolve. Appointment Scheduling: Can be done at the patient coordinator front desk or by calling our main number [phone] documented in this encounter Progress Notes Rafiq Chen MD - 12/03/2019 12:00 PM CDT NAME: MEGAN AYON MR#: [id number] CSN: [id number] AUTHENTICATING CLINICIAN: Rafiq Chen MD CONFIRM #: [id number] LOC: 711 CLINIC PROGRESS NOTE DATE OF VISIT: 12/03/2019 : 1955 Megan العلي is a pleasant 64-year-old female, who returns for MRI review appointment today following her last visit with Dr. Brand on 09/24/2019, for low back pain. She notes that her back pain has actually been improving somewhat over the past few weeks with twice weekly chiropractic treatment, and she notes that she is not getting significant weakness or other concerning symptoms at this time, but her pain has not completely resolved in the back. She is hopeful that, with continued conservativetreatment with her chiropractor, her symptoms will continue to resolve. In terms of her shoulder pain, she notes that she has been experiencing ongoing right shoulder pain that has resulted in limited range of motion. She had a prior fluoro-guided glenohumeral joint injection performed on 02/14/2019, that did not provide any significant relief. She is not interested in any surgical options for the shoulder. PAST MEDICAL HISTORY: Reviewed in Epic. PHYSICAL EXAM: GENERAL: Pleasant adult female in no acute distress. Temperature 97.4 degrees. Remainder of the examwas deferred. IMAGING STUDIES: Lumbar spine MRI was reviewed showin.Multilevel degenerative changes as above. 2.No evidence for focal nerve root impingement, stress reaction, or vertebral body compression fracture. ASSESSMENT AND PLAN: 1.Lumbar spondylosis. 2.Advanced right glenohumeral osteoarthritis. We discussed, based on her back pain and symptoms improving over the past few weeks with chiropractic treatment, she could continue this as needed and follow up with the spine clinic, if her symptoms worsen or persist, for consideration of injection or other treatment options. In terms of her right shoulder pain, she has advanced glenohumeral osteoarthritis, which did not respond to a prior fluoro-guided glenohumeral joint injection, so we discussed options including physical therapy and total shoulder arthroplasty consultation with one of our shoulder surgeons. She is not interested in surgical options at this point, so we did provide her with a physical therapy order to hopefully work on improving her range of motion and pain in the shoulder. She will follow up with us on an as-needed basis. Total time 15 minutes. Counseling time 15 minutes, of which 100% was spent reviewing MRI results anddiscussing followup planning for her low back and shoulder. MWG:MEDQ C: R:12/03/19 13:49 CONFIRM#:[id number] documented in this encounter Plan of Treatment Scheduled Referrals Name Type Priority Associated Diagnoses Order [facility] Physical Therapy Referral Routine Primary osteoarthritis o f Ordered: 12/03/2019 right shoulder documented as of this encounter Visit Diagnoses Diagnosis Primary osteoarthritis of right shoulder - Primary Primary localized osteoarthrosis, should er region documented in this encounter Care Teams Director Sales Training Relationship Specialty Start Date End Date Bj Pelletier MD PCP - General 05/19/[address] [facility], [address] documented as of this encounter
--- OUTSIDE RECORDS SUMMARY | 2021-12-03 11:43 | XMS_ITS | Encounter Summary ---
:1955 Author Organization [facility] Address [address] [place] [address] Care Team Providers Name Role Phone Bj Pelletier MD Primary Care Provider Unavailable Reason for Visit Procedure/Equipment (Routine) - Incomplete Specialty Diagnoses / Procedures Referred By Contact Refer red To Contact Diagnoses Right knee pain, unspecified chronicity Rafiq Chen MD Procedures XR Knee Rt 3 Views [address] [place] [address] Referral ID Status Reason Start Date Expiration Date Visits V isits Requested Authorized [id number] Incomplete 08/05/2020 11/04/2021 1 1 Encounter Details Date Type Department Care Team Description 08/05/2020 [facility] Rafiq Leblanc Right knee pain, Procedure [place] [address] MD Ana Laura unspecified Radiology [address] chronicity [address] [place] [place] [address] [address] [place], [place] [phone] [address] (Work) [phone] Social History Tobacco Use Types Packs/Day Years [...] Date/Time Associated Diagnosis Comme nts XR KNEE RT 3 VIEWS Routine 08/05/2020 4:54 PM Right knee pain, Results for this CDT unspecified procedure are i n chronicity [...] chronicity documented in this encounter Care Teams Him Assistant Relationship Specialty Start Date End Date Bj Pelletier MD PCP - General 05/19/[address] [facility], [address] documented as of this encounter
--- OUTSIDE RECORDS SUMMARY | 2021-12-03 11:43 | XMS_ITS | Encounter Summary ---
:1955 [facility] Address [address] [place] [address] Care Team Providers Name Role Phone Bj Pelletier MD Primary Care Provider Unavailable Reason for Referral Procedure/Equipment (Routine) - Incomplete Specialty Diagnoses / Procedures Referred By Contact Refer red To Contact Diagnoses Back pain, unspecified back location, unspecified back pain laterality, unspecified chronicity Rowdy Brand MD Procedures MR Lumbar Spine WO IV Cont [address] [place] [address] Referral ID Status Reason Start Date Expiration Date Visits V isits Requested Authorized [id number] Incomplete 10/06/2019 01/04/2021 1 1 Reason for Visit Reason Comments Plan of Care Encounter Details Date Type Department Care Team Description 10/05/2019 Telephone [facility] Rowdy Brand MD Plan of Care [address] [facility] [address] [place] [address] [place] [address] [phone] (Wo rk) Social History Tobacco Use Types Packs/Day Years Used Date Smoking Tobacco: Never Smokeless Tobacco: Never Alcohol Use Standard Drinks/Week Comments Yes 4 (1 standard drink = 0.6 oz pure alcoho l) Sex Assigned at Date Recorded Female 10/03/2020 11:17 AM CDT documented as of this encounter Nursing Notes Keke Christie, RN - 10/06/2019 9:40 AM CDT Called to discuss low back pain with patient. Pain has continued with some mild leg weakness that she states has not changed since her previous exam. Order placed for lumbar MRI per last visit note. Safety form completed. Given number to schedule LV plan: PLAN: I reviewed the x-ray findings and diagnoses with the patient. I suggested home treatment for both issues. She can use ice and oral anti-inflammatory. She can call to arrange formal physical therapy if she fails to improve despite the home treatment. I would consider advanced imaging with a lumbar MRI.She can arrange this via telephone if she wishes. I will see her back on an as-needed basis. ?? The patient mentioned parenthetically that her right shoulder has continued to bother her despite cortisone injection after her last visit. She can call to arrange formal physical therapy for this as well. Brianna Ryder RN - 10/05/2019 5:49 PM CDT Called and left a voicemail on pt secure vm regarding left hip/leg pain. Eloina Navarro - 10/05/2019 10:54 AM CDT Has the patient recently had surgery or an injury? No How may we help you today? Patient called in to speak to a nurse regarding what the next step is. Describe your symptoms/concerns: She was to call if she is not doing better. Patient is still havingpain down her leg. She has been doing PT and chiropractor. Patient is still weak and is not getting any strength. When did the issue start: it was getting better and declined again about a couple weeks. Have you been seen for this recently?: Was seen on 09/24/[address] Brand [[facility]: If yes, please include date and provider.] Is it okay to leave detailed message on your voicemail? Yes [[facility]: If this call is after 3 p.m., communicate to patient: If we are not able to get back to you by the end of the day and your symptoms worsen please contact the Careline] documented in this encounter Plan of Treatment Not on filedocumented as of this encounter Results MR Lumbar Spine WO IV Cont (12/03/2019 12:01 PM CDT) Anatomical Region Laterality Modality Spine, L-Spine, Skeletal Magnetic Resona nce Specimen (Source) Anatomical Collection Method Collection Time Re ceived Time Location / / Volume Laterality 12/03/2019 12:00 PM CDT Impressions 12/03/2019 12:10 PM CDT INDICATION: lumbar radiculopathy TECHNIQUE: ??Routine non-contrast MRI of the lumbar spine. COMPARISON: None. FINDINGS: Sagittal: 5 lumbar type vertebral bodies. First tr apezoidal segment labeled S1. Mild degenerative endplate signal change and anterior osteophytosis T12-L4 level. Mild grade 1 anterolisthesis at the L3-4 and L4-5 levels. 2 small 3 to 5 mm foci of T1 and T2 hypointensity involving the T12 and L2 vertebral body without associated edema. Findings nonspecific. Small foci of fat infiltration involving L2 and L3 verte bral bodies on the right. Bone marrow si gnal characteristics, vertebral body alignment and lower thoracic spinal cord otherwise unremarkable. Axial: T11-T12 level: Unremarkable. T12-L1 level: Mild posterior disc bulge. L1-2 level: Mild posterior disc bulge, s mall bilateral facet joint effusions. L2-3 level: Mild posterior disc bulge. L3-4 level: Mild to moderate posterior d isc osteophyte complex, moderate to severe bilateral facet hypertrophic change. Mild left-sided neural foraminal stenosis. Moderate central stenosis. L4-5 level: Mild posterior disc bulge, m oderate bilateral facet hypertrophic change. Neural foramina are nonstenotic. Mild central stenosis. L5-S1 level: Minimal posterior disc bulg e, mild right-sided moderate left-sided facet hypertrophic change. IMPRESSION: 1. Multilevel degenerative changes as ab ove. 2. No evidence for focal nerve root impi ngement, stress reaction or vertebral body compression fracture. Comment: Many lumbar spine MRI findings are so common that while we may have reported their presence, they must be interpreted with caution and in the context of the clinical situation. The frequency of these findings in adults WITHOUT low ba ck pain increases with age and are as follows: disk degeneration (37-96%), disk height loss (24-84%), disk bulge (30- 84%), disk protrusion (29-43%), annular fissure (19-29%), and facet degeneration (4-83%). Frequency percentages adapted from Brinj romeo W, Afia PH, Mahesh B, et al. AJNR AM J Neuroradiol 2015:36:811-16. Procedure Note Fernie Perales MD - 12/03/2019Formattin g of this note might be different from the original. IMPRESSION INDICATION: lumbar radiculopathy TECHNIQUE: Routine non-contrast MRI of t he lumbar spine. COMPARISON: None. FINDINGS: Sagittal: 5 lumbar type vertebral bodies. First tr apezoidal segment labeled S1. Mild degenerative endplate signal change and anterior osteophytosis T12-L4 level. Mild grade 1 anterolisthesis at the L3-4 and L4-5 levels. 2 small 3 to 5 mm foci of T1 and T2 hypointensity involving the T12 and L2 vertebral body without associated edema. Findings nonspecific. Small foci of fat infiltration involving L2 and L3 vertebral bodies on the right. Bone marrow signal characteristics, vertebral body alignment and lower thoracic spinal cord otherwise unremarkable. Axial: T11-T12 level: Unremarkable. T12-L1 level: Mild posterior disc bulge. L1-2 level: Mild posterior disc bulge, s mall bilateral facet joint effusions. L2-3 level: Mild posterior disc bulge. L3-4 level: Mild to moderate posterior d isc osteophyte complex, moderate to severe bilateral facet hypertrophic change. Mild left-sided neural foraminal stenosis. Moderate central stenosis. L4-5 level: Mild posterior disc bulge, m oderate bilateral facet hypertrophic change. Neural foramina are nonstenotic. Mild central stenosis. L5-S1 level: Minimal posterior disc bulg e, mild right-sided moderate left-sided facet hypertrophic change. IMPRESSION: 1. Multilevel degenerative changes as ab ove. 2. No evidence for focal nerve root impi ngement, stress reaction or vertebral body compression fracture. Comment: Many lumbar spine MRI findings are so common that while we may have reported their presence, they must be interpreted with caution and in the context of the clinical situation. The frequency of these findings in adults WITHOUT low back pain increases w ith age and are as follows: disk degeneration (37-96%), disk height loss (24-84%), disk bulge (30-84%), disk protrusion (29-43%), annular fissure (19-29%), and facet degeneration (4-83%). Frequency percentages adapted from Eddi walters W, Afia PH, Mahesh B, et al. AJNR AM J Neuroradiol 2015:36:811-16. Rowdy Brand MD RAD MRI documented in this encounter Visit Diagnoses Diagnosis Back pain, unspecified back location, un specified back pain laterality, unspecified chronicity - Primary Back pain, unspecified back location, un specified back pain laterality, unspecified chronicity documented in this encounter Care Teams Newspaper Inserter Relationship Specialty Start Date End Date Bj Pelletier MD PCP - General 05/19/[address] [facility], [address] documented as of this encounter
--- OUTSIDE RECORDS SUMMARY | 2021-12-03 11:43 | XMS_ITS | Encounter Summary ---
:1955 Author Organization [facility] Address [address] [place] [address] Care Team Providers Name Role Phone Bj Pelletier MD Primary Care Provider Unavailable Reason for Visit Reason Comments Knee Problem Encounter Details Date Type Department Care Team Description 10/23/2020 Therapy [facility], Maxwell Holedr PT Acute pain of right knee (Primary Dx); Physical Therapy [address] Knee stiff, right [address] [place], [place] [address] [phone] (Wo rk) Social History Tobacco Use Types Packs/Day Years Used Date Smoking Tobacco: Never Smokeless Tobacco: Never Alcohol Use Standard Drinks/Week Comments Yes 4 (1 standard drink = 0.6 oz pure alcoho l) Sex Assigned at Date Recorded Female 10/03/2020 11:17 AM CDT documented as of this encounter Progress Notes Symone Holder PT - 10/23/2020 9:45 AM CDT [facility] [place] Physical Therapy Daily Note Visit Number: 7 [email or web address] Initial Certification Period: 08/28/2020 to 10/27/20 [...] is doing well overall. States that she is a little sore today. Reports that she was able to do a little bit of hiking over the weekend and is not up to driving 40 miles without pain. OBJECTIVE: Today???s Findings Knee ROM (kasmhzgit-zyf-coyy): 0-132 Strength: Quad set good TREATMENT TODAY: Therapeutic Exercise (CPT 68329) x 24 minutes: Utilized for the purpose of improving strength, ROM, endurance, and/or flexibility: Access Code: [email or web address] Exercises -TRX squats -TRX lunge -Table lunge -leg press (25#) 2 x 10 -leg press 2 up 1 down (15#) 2 x 6 -Single leg press 10# x 2 (discontinued due to difficulty) -HEP review Therapeutic Activities (CPT 98416) x 8 minutes: Dynamic activities utilized to improve functional performance. -Stairs practice -Step overs Verbal and tactile cues required to ensure correct exercise technique. Patient able to perform exercise correctly with good technique and no reports of increased pain. Patient instructed to discontinueexercise if increased pain were to occur. Patient verbalized understanding. . Timed Code Treatment Minutes: 32 Total Treatment Minutes: 32 ASSESSMENT: Patient tolerated session well without increase in pain. Demonstrates improved tolerance to activity, as she is able to increase walking distance, driving duration and squatting depth. Continues to feel discomfort when going down stairs. Demonstrates anterior knee/joint line pain during eccentric lowering exercises. Recommend continued skilled PT to address deficits and return patient to highest level of function. PLAN: Update HEP to reflect quad loading exercises. EXPECTED FUNCTIONAL OUTCOMES/GOALS: HEP/Independent Management: Demonstrate [...] in 6 weeks. Therapist: Symone Holder, AKASH 9:49 AM 10/23/2020 documented in this encounter Plan of Treatment Not on filedocumented as of this encounter Visit Diagnoses Diagnosis Acute pain of right knee - Primary Knee stiff, right documented in this encounter Care Teams Torpedo Worker Relationship Specialty Start Date End Date Bj Pelletier MD PCP - General 05/19/[address] [facility], [address] documented as of this encounter
--- OUTSIDE RECORDS SUMMARY | 2021-12-03 11:43 | XMS_ITS | Encounter Summary ---
:1955 Author Organization [facility] Address [address] [place] [address] Care Team Providers Name Role Phone Bj Pelletier MD Primary Care Provider Unavailable Encounter Details Date Type Department Care Team Description 12/21/2019 Orders Only HIM DEPARTMENT Provider, Mike [place]auer [place] [address] Social History Tobacco Use Types Packs/Day Years [...] Name Priority Date/Time Associated Diagnosis Comme nts MAMMOGRAM SC 12/21/2019 Results for thi s procedure are in the resu lts section. documented in this encounter Results MAMMOGRAM SC (12/21/2019) Anatomical Region Laterality Modality Other Narrative This result has an attachment that is no t available. 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
--- OUTSIDE RECORDS SUMMARY | 2021-12-03 11:43 | XMS_ITS | Encounter Summary ---
:1955 [facility] Address [address] [place] [address] Care Team Providers Name Role Phone Bj Pelletier MD Primary Care Provider Unavailable Reason for Referral Therapies (Routine) - Closed Specialty Diagnoses / Procedures Referred By Contact Refer red To Contact Diagnoses Closed fracture of lateral portion of right tibial plateau with routine healing Otis Crump MD [address] [place] [address] Referral ID Status Reason Start Date Expiration Date Visits Requ ested Visits Authorized [id number] Closed 08/27/2020 08/27/2021 1 1 Scheduling Instructions Your provider has recommended an appoint ment with [facility]. You may call [phone] to schedule your a ppointment. We suggest you call your health insurance company about your coverage an d benefits for this appointment. Procedure/Equipment (Routine) - Incomplete Specialty Diagnoses / Procedures Referred By Contact Refer red To Contact Diagnoses Closed fracture of lateral portion of right tibial plateau with routine healing Otis Crump MD Procedures XR Knee Rt 2 Views [address] [place] [address] Referral ID Status Reason Start Date Expiration Date Visits V isits Requested Authorized [id number] Incomplete 08/27/2020 11/26/2021 1 1 Reason for Visit Reason Comments Follow-up Right knee Encounter Details Date Type Department Care Team Description 08/27/2020 Office Visit Otis Costello, Closed fracture of Orthopedic Urgent MD lateral portion of Care [address] [facility] right tibial plateau [address] [place], [place] [address] (Primary Dx) [phone] Social History Tobacco Use Types Packs/Day Years [...] - - Temperature 36.1 ??C (97 ??F) 08/27/2020 4:09 PM CDT Respiratory Rate - - Oxygen Saturation - - Inhaled Oxygen Concentration - - Weight - - Height - - Body Mass Index - - documented in this encounter Patient Instructions Patient InstructionsDannielle Courtney, ATC - 08/27/2020 4:[address] tOis Crump MD Sports [facility] Orth[facility] Medication Requests: Prescriptions are not filled on Weekends or on Weekdays after 3:00PM For all medication refills: Request a refill using MyChart or contact your Pharmacy MRI Scheduling: To schedule an MRI at [facility] please call [phone] Paperwork Requests: Questions regarding FMLA or disability paperwork please call [phone] Phone lines are answered 8AM to 5PM Wednesday - Wednesday. General Scheduling: To schedule an appointment, please call [phone] HANNAH Carias [facility] Nurse Line: [phone] Workers??? Compensation: Please contact our department for any Work Comp concerns at Email: [email or web address] Diagnosis: 1. Closed fracture of lateral portion of right tibial plateau with routine healing Plan: Follow Up: in 4 weeks if symptoms fail to resolve If you have any questions regarding your visit or next steps, please contact us at [phone]. RICE: - Utilize ice over the injured area (ice bag or bag of frozen vegetables) several times per day for up to 20 minutes at a time. Be sure to place a cold wet wash cloth or towel between the ice andyour skin. Medications: Over the Counter Medications: Acetaminophen (Tylenol) taken per bottle instructions unless specified by physician. Please note: Refills of any prescribed medications are not guaranteed and are at the discretion of your provider. Imaging Plastic Card Grader Cardroom: [facility] [place] [id number] [place] [address]. Call [phone] to schedule. Medication Requests: Prescriptions are filled on Weekdays before 3:00PM For all medication refills: Request a refill using [employer] or contact your Pharmacy Paperwork Requests: FMLA or disability paperwork can be faxed to: [facility] [phone] Please allow 7-10 business days for completion of all paperwork. [facility] Worker's Compensation Services: E-mail Address: [email or web address] To request copies of your medical records, call: [phone] (option 4) documented in this encounter Progress Notes Otis Crump MD - 08/27/2020 4:00 PM CDT Megan العلي [id number] [address] [facility] Orthopaedic Center Acute Injury Clinic Follow-Up 08/27/2020 History of Present Illness: Megan العلي is a 64 y.o. female who presents for follow-up regarding right knee lateral tibial plateau fracture. She was last evaluated for this by Dr. Berg on 08/13/2020. At that time, she was given a Tubigrip and a hinged knee brace, as well as crutches to be non-weightbearing. Today, she returns to clinic for reevaluation and repeating x-rays. Physical Exam: Temp 36.1 ??C (97 ??F) (Tympanic) Skin: No erythema or ecchymosis. Neuro: Normal. Cardiovascular: Normal capillary refill. Right Knee: Minimal effusion. Mild soreness with the lateral tibial plateau. Slight loss of full flexion. Normal extension. No laxity appreciated. Imaging: Radiographs of the Right Knee - 2 views (08/27/20): Discrete fracture lucency in the lateral tibial plateau is not seen. Slightly increased sclerosis involving the lateral tibial plateau particularly medially may correlate with the fracture better seen on 08/12/2020 MRI. No displacement or articular collapse. No other fractures are identified. No dislocations. Tricompartmental degenerative arthrosis. No significant joint effusion. I ordered and independently reviewed and interpreted the imaging studies above; the results were discussed with the patient. Assessment: Diagnosis and Associated Orders ICD-10-CM 1. Closed fracture of lateral portion of right tibial plateau with routine healing S82.121D XR Knee Rt 2 Views Physical Therapy Plan: Educated the patient regarding her condition and management. After a discussion recommended startingPhysical Therapy. Try to get her out of the immobilizer. Work on ROM and stability. Bracing. The patient verbalized understanding. Follow-up in 1 month if problems persist. Scribe Disclosure: I, Carol Tai, am serving as a scribe to document services personally performed by Otis Crump MD at this visit, based upon the provider's statements to me. All documentation has been reviewed by the aforementioned provider prior to being entered into the official medical record. Portions of this medical record were completed by a scribe. UPON MY REVIEW AND AUTHENTICATION BY ELECTRONIC SIGNATURE, this confirms (a) I performed the applicable clinical services, and (b) the recordis accurate. Otis Crump MD documented in this encounter Plan of Treatment Scheduled Referrals Name Type Priority Associated Diagnoses Order S chedule Physical Therapy Referral Routine Closed fracture of later al Ordered: 08/27/2020 portion of right tibial plateau with routine healing documented as of this encounter Results XR Knee Rt 2 Views (08/27/2020 4:17 PM CDT) Anatomical Region Laterality Modality Lower Extremity, Knee Digital Radiograph y Specimen (Source) Anatomical Collection Method Collection Time Re ceived Time Location / / Volume Laterality 08/27/2020 4:10 PM CDT Impressions 08/27/2020 4:44 PM CDT COMPARISON: ??08/05/2020, 08/12/2020 FINDINGS: ??2 views. Discrete fracture l ucency in the lateral tibial plateau is not seen. Slightly increased sclerosis involving the lateral tibial plateau particularly medially may correlate with the f racture better seen on 08/12/2020 MRI. N o displacement or articular collapse. No other fractures are identified. No dislocations. Tricompartmental degenerative arthrosis. No significant joint effusion. Procedure Note Huy Canas MD - 08/27/2020Formatti ng of this note might be different from the original. IMPRESSION COMPARISON: 08/05/2020, 08/12/2020 FINDINGS: 2 views. Discrete fracture mani ency in the lateral tibial plateau is not seen. Slightly increased sclerosis involving the lateral tibial plateau particularly medially may correlate with the fracture better seen on 08/12/2020 MRI. No displa cement or articular collapse. No other fractures are identified. No dislocations. Tricompartmental degenerative arthrosis. No significant joint effusion. Otis Crump MD RAD GD documented in this encounter Visit Diagnoses Diagnosis Closed fracture of lateral portion of ri ght tibial plateau with routine healing - Primary Closed fracture of lateral portion of ri ght tibial plateau with routine healing documented in this encounter Care Teams Prom Burn Off Operator Relationship Specialty Start Date End Date Bj Pelletier MD PCP - General 05/19/[address] [facility], [address] documented as of this encounter
--- OUTSIDE RECORDS SUMMARY | 2021-12-03 11:43 | XMS_ITS | Encounter Summary ---
:1955 Author Organization [facility] Address [address] [place] [address] Care Team Providers Name Role Phone Bj Pelletier MD Primary Care Provider Unavailable Reason for Visit Procedure/Equipment (Routine) - Incomplete Specialty Diagnoses / Procedures Referred By Contact Refer red To Contact Diagnoses Left foot pain Rowdy Brand MD Procedures XR Foot Lt 3+ Views [address] [place], [place] [address] Referral ID Status Reason Start Date Expiration Date Visits V isits Requested Authorized [id number] Incomplete 09/24/2019 12/23/2020 1 1 Encounter Details Date Type Department Care Team Description 09/24/2019 Ancillary Procedure [facility] Rowdy Brand, Left foot pain [address] [facility] [place] [address] [facility] Maribeth Rosen [address] [place], [place] [phone] (Wo rk) Social History Tobacco Use Types [...] Priority Date/Time Associated Diagnosis Comme nts XR FOOT LT 3+ VIEWS Routine 09/24/2019 12:27 PM Left foot pain Results for this CDT procedure are i n the results section. documented in this encounter Results XR Foot Lt 3+ Views (09/24/2019 12:27 PM CDT) Anatomical Region Laterality Modality Lower Extremity, Foot Digital Radiograph y Specimen (Source) Anatomical Collection Method Collection Time Re ceived Time Location / / Volume Laterality 09/24/2019 12:26 PM CDT Impressions 09/24/2019 1:42 PM CDT COMPARISON: ??None. FINDINGS: No acute fracture or dislocati on identified. Procedure Note Mark Anthony Edmonds MD - 09/24/2019Formatti ng of this note might be different from the original. IMPRESSION COMPARISON: None. FINDINGS: No acute fracture or dislocati on identified. Rowdy Brand MD RAD GD documented in this encounter Visit Diagnoses Diagnosis Left foot pain Pain in limb documented in this encounter Care Teams Credit Or Loans Officer Relationship Specialty Start Date End Date Bj Pelletier MD PCP - General 05/19/[address] [place], [address] documented as of this encounter
--- OUTSIDE RECORDS SUMMARY | 2021-12-03 11:43 | XMS_ITS | Encounter Summary ---
:1955 [facility] Address [address] [place] [address] Care Team Providers Name Role Phone Bj Pelletier MD Primary Care Provider Unavailable Reason for Visit Procedure/Equipment (Routine) - Incomplete Specialty Diagnoses / Procedures Referred By Contact Refer red To Contact Diagnoses Back pain, unspecified back location, unspecified back pain laterality, unspecified chronicity Rowdy Brand MD Procedures MR Lumbar Spine WO IV Cont [address] [facility] [place], [place] [address] Referral ID Status Reason Start Date Expiration Date Visits V isits Requested Authorized [id number] Incomplete 10/06/2019 01/04/2021 1 1 Encounter Details Date Type Department Care Team Description 12/03/2019 Ancillary [facility] MRI Rowdy Brand, Back pain, Procedure [address] back [address] [facility] [address] [place] back [phone] pain laterality, unspecified (Work) chronicity Social History Tobacco Use Types Packs/Day Years [...] Name Priority Date/Time Associated Diagnosis Comme nts MR LUMBAR SPINE WO Routine 12/03/2019 12:01 PM Back pain, Re sults for this IV CONT CDT unspecified back procedure a re in location, the results unspecified back section. pain laterality, unspecified chronicity documented in this encounter Results MR Lumbar Spine WO [...] chronicity documented in this encounter Care Teams Window Repairer Relationship Specialty Start Date End Date Bj Pelletier MD PCP - General 05/19/[address] [facility], [address] documented as of this encounter
--- OUTSIDE RECORDS SUMMARY | 2021-12-03 11:43 | XMS_ITS | Encounter Summary ---
:1955 Author Organization [facility] Address [address] [place] [address] Care Team Providers Name Role Phone Bj Pelletier MD Primary Care Provider Unavailable Reason for Visit Reason Comments Knee Problem Encounter Details Date Type Department Care Team Description 10/09/2020 Therapy [facility], Maxwell Holder PT Acute pain of right knee (Primary Dx); Physical Therapy [address] Knee stiff, right [address] [place], [place] [phone] (Wo rk) Social History Tobacco Use Types Packs/Day Years Used Date Smoking Tobacco: Never Smokeless Tobacco: Never Alcohol Use Standard Drinks/Week Comments Yes 4 (1 standard drink = 0.6 oz pure alcoho l) Sex Assigned at Date Recorded Female 10/03/2020 11:17 AM CDT documented as of this encounter Progress Notes Symone Holder PT - 10/09/2020 9:45 AM CDT [facility] Daily Note Visit Number: 3 [...] Report: Patient reports that she is doing well. States that she feels pain when she drives in the anterior part of her knee. Reports that she experienced this with her clamshell exercise as well. States that she has been sleeping well. OBJECTIVE: Today???s Findings Knee ROM ([id number]): 1-132 Strength: Quad set good TREATMENT TODAY: Therapeutic Exercise (CPT 78510) x 30 minutes: Utilized for the purpose of improving strength, ROM, endurance, and/or flexibility: Access Code: [email or web address] Exercises -leg press (10#, 20#) -Squats to 90 degree with UE support Long Sitting Calf Stretch with Strap - 1 x daily - 1 reps - 30 hold (sec) Supine Knee Extension Stretch on Towel Roll - 2 x daily - 30 hold Seated Knee Extension Stretch with Chair - 2 x daily - 30 hold Active Straight Leg Raise with Quad Set - 2 x daily - 10 reps Neutral Curl Up with Straight Leg - 2 x daily - 5 reps - 10 hold Supine Bridge - 2 x daily - 10 reps - 5 hold Squat with Chair Touch - 2 x daily - 10 reps Clamshell holds - 1 x daily - 1 reps - 30 hold Clamshell - 1 x daily - 10 reps Standing Terminal Knee Extension with Resistance - 2 x daily - 10 reps Verbal and tactile cues required to ensure correct exercise technique. Patient able to perform exercise correctly with good technique and no reports of increased pain. Patient instructed to discontinueexercise if increased pain were to occur. Patient verbalized understanding. . Timed Code Treatment Minutes: 30 Total Treatment Minutes: 30 ASSESSMENT: Patient tolerated session well without increase in pain. Able to progress overall volume and mode ofexercise during today's session. Demonstrates improved activity tolerance overall. Will experience anterior knee discomfort during quad strengthening exercises. That is immediately resolves with rest. Recommend continued skilled PT to address deficits and return patient to highest level of function. PLAN: Step up exercises. Leg press. Sled push/pull. [...] in 6 weeks. Therapist: Symone Holder, AKASH 9:48 AM 10/09/2020 documented in this encounter Plan of Treatment Not on filedocumented as of this encounter Visit Diagnoses Diagnosis Acute pain of right knee - Primary Knee stiff, right documented in this encounter Care Teams Edge Baster Relationship Specialty Start Date End Date Bj Pelletier MD PCP - General 05/19/[address] [facility], [address] documented as of this encounter
--- OUTSIDE RECORDS SUMMARY | 2021-12-03 11:43 | XMS_ITS | Encounter Summary ---
:1955 Author Organization [facility] Address [address], [place] [address] Care Team Providers Name Role Phone Bj Pelletier MD Primary Care Provider Unavailable Reason for Referral Consult/Transfer Care (Routine) - Closed Specialty Diagnoses / Procedures Referred By Contact Refer red To Contact Diagnoses Acute recurrent maxillary sinusitis Rowdy Cao MD [address] [place] [address] Referral ID Status Reason Start Date Expiration Date Visits Requ ested Visits Authorized [id number] Closed 12/31/2019 03/31/2021 1 1 Scheduling Instructions Your provider has recommended an appoint ment with [address] [facility]. You may call [phone] to schedule your appoi ntment. We suggest you call your health insurance company about your coverage an d benefits for this appointment. ER SURVEYING Reason for Visit Reason Comments Ear Pain NASAL CONGESTION--ED Encounter Details Date Type Department Care Team Description 12/31/2019 Hospital Encounter [place] [address] Rowdy Cao Acu te recurrent Urgent Care MD [place] maxillary sinusitis [address] Francesca Atkinson [address] [place], [place] [facility] [address] [facility] [phone] [place] [address] Social History Tobacco Use Types Packs/Day Years Used Date Smoking Tobacco: Never Smokeless Tobacco: Never Alcohol Use Standard Drinks/Week Comments Yes 4 (1 standard drink = 0.6 oz pure alcoho l) Sex Assigned at Date Recorded Female 10/03/2020 11:17 AM CDT documented as of this encounter Last Filed Vital Signs Vital Sign Reading Time Taken Comments Blood Pressure 128/74 12/31/2019 12:18 PM STAKER SURVEYING Pulse 84 12/31/2019 12:18 PM STAKER SURVEYING Temperature 36.7 ??C (98 ??F) 12/31/2019 12:18 PM STAKER SURVEYING Respiratory Rate 16 12/31/2019 12:18 PM STAKER SURVEYING Oxygen Saturation 100% 12/31/2019 12:18 PM STAKER SURVEYING Inhaled Oxygen Concentration - - Weight - - Height - - Body Mass Index - - documented in this encounter Discharge Instructions Discharge InstructionsRowdy Cao MD - 12/31/2019 12:30 PM CST Doxycycline as directed. Okay to continue sinus rinses. No change in your other medicines. Okay to do normal activities. No need to use peroxide in your ears. Delsym for cough as needed. Get the orange because the grape tastes weird. ER SURVEYING documented in this encounter Medications at Time of Discharge Medication Sig Dispensed Refills Start Date End Date ALBUterol sulfate HFA 108 Inhale 2 Puffs as 0 12/2014 (90 Base) MCG/ACT inhaler needed. Ascorbic Acid (VITAMIN C Take 2 Tablets by 0 07/16 OR) mouth daily. B Complex Vitamins Take by mouth 0 08/03/2006 (VITAMIN B COMPLEX OR) daily (every 24 hours). Cholecalciferol (VITAMIN Take 2,500 Units 0 D3) 400 UNITS CAPS by mouth daily. Multiple Vitamin Take by mouth. 0 (MULTI-VITAMIN) tablet doxycycline monohydrate Take 1 Capsule by 20 Capsule 0 12/3001/10/2020 (MONODOX) 100 MG capsule mouth two times a day for 10 days. lisinopril (ZESTRIL) 5 MG 0 03/23/2017 10/07/2020 tablet documented as of this encounter ED Notes Rowdy Cao MD - 12/31/2019 12:21 PM CST Megan Loja Bj العلي is a 64 y.o.female presents to the Urgent Care for Ear Pain and NASAL CONGESTION--ED Symptoms of Left ear pain began 1 month(s) ago. Fever is absent. Other associated symptoms include runny nose and nasal drainage down throat, sore throat from that. Current medications include salt water rinses and hydrogen peroxide rinses in ear SUBJECTIVE: Megan العلي is a 64 y.o.female who presents to Urgent Care complaining of runny nose, nasal congestion, facial pain and pressure which have been going on now for a month. The patient also reports post nasal drainage and ear pain. She has no other complaints. Past Medical History: Reviewed in [facility] Social History: Reviewed in [facility] Review of Systems: See HPI, all other systems are negative. OBJECTIVE: Vital Signs: BP 128/74 (BP Location: Right Arm, BP Cuff Size: Regular) Pulse 84 Temp 36.7 ??C (98 ??F) (Oral) Resp 16 SpO2 100% Physical Exam: General: This is a very pleasant 64 y.o. female sitting comfortably on a chair in the treatment room. She is not is not in respiratory distress and does not look acutely ill. HEAD: No signs of trauma. EYES: Extraocular movements are intact. Pupils are equal, round and briskly reactive to light. No scleral icterus. ENT: Nares are clear, external auditory canals are clear. TMs are retracted but otherwise normal. Oropharynx is clear, airway is widely patent. There is a cobblestone appearance of the oropharynx. Tonsils are normal. There is no evidence of retropharyngeal or peritonsillar abscess. The floor of the mouth is soft. CARDIOVASCULAR: Regular rate and rhythm and without murmurs, rubs or gallops. RESPIRATORY: Respirations are quiet and non-labored, there is diminished air flow in all burt. There are no expiratory wheezes or inspiratory crackles. There is equal chest rise with respiration. SKIN: Warm, dry, normal color. No rashes, petechiae or ecchymoses. LYMPHATIC: There is no tonsillar adenopathy. Medications - No data to display Labs: None X-rays: No results found. Impression: 1. Acute recurrent maxillary sinusitis Medical Decision Making: The patient's symptom complex is consistent with acute maxillary sinusitis and I think warrants treatment given the physical exam findings and history. There is no indication for advanced imaging or hospital admission. There is no indication for COVID-19 testing. Plan: Patient will be discharged home with doxycycline, recommendations for supportive care and will follow-up with primary care as an outpatient. Patient knows to return to Urgent Care if symptoms worsen despite treatment. Medications Prescribed this Visit Disp Refills Start End doxycycline monohydrate (MONODOX) 100 MG capsule 20 Capsule 0 12/31/2019 01/10/2020 Take 1 Capsule by mouth two times a day for 10 days. Notes to Pharmacy: Pharmacy may substitute hyclate or monohydrate tab or capsule based on insurance [place] [address] [facility] [id number] [place] [phone] The clinic will call you within three business days to schedule an appointment. [place] [address] [facility] [address] [place] [phone] As needed. ER SURVEYING documented in this encounter Plan of Treatment Scheduled Referrals Name Type Priority Associated Diagnoses Order S [facility] INTERNAL MEDICINE Referral Routine Acute recurrent Ordered : 12/31/2019 CONSULT ADULT (AMB) maxillary sinusitis documented as of this encounter Visit Diagnoses Diagnosis Acute recurrent maxillary sinusitis Acute maxillary sinusitis Triage Assessment Note - Dejah Russell RN - 12/31/2019 12:16 PM STAKER SURVEYING Megan العلي is a 64 y.o.female presents to the Urgent Care for Ear Pain and NASAL CONGESTION--ED Symptoms of Left ear pain began 1 month(s) ago. Fever is absent. Other associated symptoms include runny nose and nasal drainage down throat, sore throat from that. Current medications include salt water rinses and hydrogen peroxide rinses in ear ER SURVEYING documented in this encounter Care Teams Computing Tutor Relationship Specialty Start Date End Date Bj Pelletier MD PCP - General 05/19/[address] [place], [address] documented as of this encounter
--- OUTSIDE RECORDS SUMMARY | 2021-12-03 11:43 | XMS_ITS | Encounter Summary ---
:1955 Author Organization [facility] Address [address], [place] [address] Care Team Providers Name Role Phone Bj Pelletier MD Primary Care Provider Unavailable Reason for Referral Procedure/Equipment (Routine) - Incomplete Specialty Diagnoses / Procedures Referred By Contact Refer red To Contact Diagnoses Right knee pain, unspecified chronicity Pat Chen MD Procedures XR Knee Lt 1-2 Views Comparison [address] [place] [address] Referral ID Status Reason Start Date Expiration Date Visits V isits Requested Authorized [id number] Incomplete 08/05/2020 11/04/2021 1 1 Procedure/Equipment (Routine) - Incomplete Specialty Diagnoses / Procedures Referred By Contact Refer red To Contact Diagnoses Right knee pain, unspecified chronicity Pat Chen MD Procedures XR Knee Rt [address] [place] [address] Referral ID Status Reason Start Date Expiration Date Visits V isits Requested Authorized [id number] Incomplete 08/05/2020 11/04/2021 1 1 Reason for Visit Reason Comments Knee Pain or Injury Cons right doi: 07/28 [place]: do gs slammed into knee while playing Encounter Details Date Type Department Care Team Description 08/05/2020 Office Visit Pat Rangel Right knee pain, Orthopedic Urgent unspecified Care [address] chronicity (Primary [address] [place], [place] Dx) [place] [address] [phone] Social History Tobacco Use Types Packs/Day Years [...] - - Temperature 36.1 ??C (97 ??F) 08/05/2020 4:41 PM CDT Respiratory Rate - - Oxygen Saturation - - Inhaled Oxygen Concentration - - Weight 59 kg (130 lb) 08/05/2020 4:41 PM CDT Height 165.1 cm (5' 5) 08/05/2020 4:41 PM CDT Body Mass Index 21.63 08/05/2020 4:41 PM CDT documented in this encounter Patient Instructions Patient InstructionsGrenawaDannielle coombs, ATC - 08/05/2020 4:[address] Pat Chen MD Sports & Orthopedic Medicine Acute Injury Clinic Medication Requests: Prescriptions are not filled on Weekends or on Weekdays after 3:00PM For all medication refills: Request a refill using MyChart or contact your Pharmacy MRI Scheduling: To schedule an MRI at [facility] please call [phone] Paperwork Requests: Questions regarding FMLA or disability paperwork please call [phone] Phone lines are answered 8AM to 5PM Wednesday - Wednesday. General Scheduling: To schedule an appointment, please call [phone] [facility] Nurse Line: [phone] Workers??? Compensation: Please contact our department for any Work Comp concerns at Email: [email or web address] Diagnosis: Right knee osteoarthritis exacerbation/ Valenzuela's cyst Plan: Follow Up: As needed if symptoms are not improving or worsen. If you have any questions regarding your visit or next steps, please contact us at [phone]. RICE: - Utilize ice over the injured area (ice bag or bag of frozen vegetables) several times per day for up to 20 minutes at a time. Be sure to place a cold wet wash cloth or towel between the ice andyour skin. - Avoid activities that cause pain. Medications: Over the Counter Medications: Ibuprofen (Motrin) taken per bottle instructions unless specified by physician. Please note: Refills of any prescribed medications are not guaranteed and are at the discretion of your provider. Imaging Rn Prior Authorization: [place] [address]. Call [phone] to schedule. Medication Requests: Prescriptions are filled on Weekdays before 3:00PM For all medication refills: Request a refill using [employer] or contact your Pharmacy Paperwork Requests: FMLA or disability paperwork can be faxed to: [facility] [phone] Please allow 7-10 business days for completion of all paperwork. [employer] Worker's Compensation Services: E-mail Address: [email or web address] To request copies of your medical records, call: [phone] (option 4) documented in this encounter Progress Notes Pat Chen MD - 08/05/2020 12:00 AM CDT NAME: MEGAN AYON CSN: [id number] CLINIC NOTE DATE OF SERVICE: 08/05/2020 : 1955 Megan العلي is a pleasant 64-year-old female, who presents today for evaluation of a right leg injury that occurred on 07/28/2020, when she was walking and had 2 dogs slam into the front of both her legs. Since that time, she has had some pain in the posterior aspect of her right knee and occasional pain that radiates down into the lower leg and ankle as well. She denies any pain radiating down from her back. She denies any locking, catching, or mechanical symptoms. She is concerned about a possible fracture. She has been able to stand and weight bear on it and notes the symptoms actually get better the more she moves on it. The first few steps after sitting or going up and down stairs have been painful for her. REVIEW OF SYSTEMS: Negative for fever, rash, numbness, and tingling. PAST MEDICAL HISTORY: Reviewed in [facility]. 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. She enjoys traveling. She is planning on potentiallygoing to [place] with her daughter. MEDICATIONS: Per [facility]. ALLERGIES: PER [facility]. Height 5 feet 5 inches, weight 130 pounds, temperature 97.0 degrees. GENERAL: Pleasant adult female,in no acute distress. On examination of the right knee, there is no ecchymosis or erythema present. She does have a mild effusion present and some posterior knee fullness. There is no calf swelling or erythema or calf-calf asymmetry present. She has full strength with resisted foot eversion, ankle dorsiflexion, and great toe extension. She has no focal bony tenderness over the proximal fibula, the medial tibial plateau, lateral tibial plateau, medial or lateral joint line. She has knee range of motion from 0 to 135. No laxity with varus or valgus stress testing. Negative Reggie. Negative Placido.Negative posterior drawer. IMAGING: Right knee x-rays were obtained and personally reviewed by me, which show advanced patellofemoral osteoarthritic changes with mild medial and lateral compartment osteoarthritic changes of the right knee. Please see [facility] for official radiology review. ASSESSMENT/PLAN: Right knee osteoarthritis exacerbation/Valenzuela cyst. We discussed, based on her symptoms and imaging today, this is most consistent with exacerbation of her underlying arthritis and subsequent Valenzuela cyst formation. We recommended ice, ibuprofen, and a gradual return to activities, as her symptoms have been tolerable at this point, and she is not getting any mechanical symptoms or othersigns consistent with a nerve root impingement or deep vein thrombosis. We discussed returning to clinic for re-evaluation and possible steroid injection or viscosupplementation if she is getting more knee pain or symptoms attributable to her underlying osteoarthritis after the pain from this acute exacerbation resolves. She is in agreement with this plan and will follow up with me on an as-needed basis. PAT CHEN MD MWG/AQS /[id number] documented in this encounter Plan of Treatment Not on filedocumented as of this encounter Results XR Knee Lt 1-2 [...] joint spaces appear otherwise within normal limits. Pat Chen MD RAD GD XR Knee Rt [...] joint spaces appear otherwise within normal limits. Pat Chen MD RAD GD documented in this encounter Visit Diagnoses Diagnosis Right knee pain, unspecified chronicity - Primary Right knee pain, unspecified chronicity Right knee pain, unspecified chronicity documented in this encounter Care Teams Compliance Aide Relationship Specialty Start Date End Date Bj Pelletier MD PCP - General 05/19/[address] [facility], [address] documented as of this encounter
--- OUTSIDE RECORDS SUMMARY | 2021-12-03 11:43 | XMS_ITS | Encounter Summary ---
:1955 Author Organization [facility] Address [address] [place] [address] Care Team Providers Name Role Phone Bj Pelletier MD Primary Care Provider Unavailable Reason for Visit Reason Comments Prior Authorization For Imaging Encounter Details Date Type Department Care Team Description 10/11/2020 Telephone [place] [address] Family Tal, Jose Brink, P kendra Authorization For Medicine PA-C Imaging [address] [place] [address] Social History Tobacco Use Types Packs/Day Years Used Date Smoking Tobacco: Never Smokeless Tobacco: Never Alcohol Use Standard Drinks/Week Comments Yes 4 (1 standard drink = 0.6 oz pure alcoho l) Sex Assigned at Date Recorded Female 10/03/2020 11:17 AM CDT documented as of this encounter Nursing Notes Astrid Rahman - 10/11/2020 8:49 AM CDT [place] 57[address] CAT SCAN FOLLOW-UP STUDY scheduled on 10/07/2020. The requested procedure code is only supported for follow-up or surveillance purposes. A detailed picture study (CPT 95820) of your chest with pictures taken only after using dye is more likely to show your doctor all they need to see in order to treat you. This study will be approved is requested. If this service is medically necessary, a clag-sw-tyzn needs to be completed. Action needed if completing the khum-jj-dgxc: 1. Call insurance Payor/Insurance:[facility]/Megan Phone #: Reference/Denial #:[id number] 2. If authorization is obtained: 1. Document authorization # 2. Obtain Effective Dates (mm/dd/yyyy-mm/dd/yyyy) 3. Route back to Authorization Cert Team ([id number]) pool 3. If peer to peer or written appeal is denied: 1. Determine appropriate next steps and communicate to patient 2. Routing back to ACT Team is not needed documented in this encounter Plan of Treatment Not on filedocumented as of this encounter Visit Diagnoses Not on filedocumented in this encounter Care Teams Hand Box Folder Relationship Specialty Start Date End Date Bj Pelletier MD PCP - General 05/19/[address] [facility], [address] documented as of this encounter
--- OUTSIDE RECORDS SUMMARY | 2021-12-03 11:43 | XMS_ITS | Encounter Summary ---
:1955 [facility] Address [address] [place] [address] Care Team Providers Name Role Phone Bj Pelletier MD Primary Care Provider Unavailable Reason for Visit Reason Comments Prior Authorization For Imaging Encounter Details Date Type Department Care Team Description 10/10/2020 Telephone [place] [address] Family Tal, Jose Brink, P kendra Authorization For Medicine PA-C Imaging [address] [facility] [address] [place] [address] [phone] Social History Tobacco Use Types Packs/Day Years Used Date Smoking Tobacco: Never Smokeless Tobacco: Never Alcohol Use Standard Drinks/Week Comments Yes 4 (1 standard drink = 0.6 oz pure alcoho l) Sex Assigned at Date Recorded Female 10/03/2020 11:17 AM CDT documented as of this encounter Nursing Notes Nikia Soto LPN - 10/10/2020 3:21 PM CDT Called and read the message below to the nurse. She stated it will now move forwards to the review process and they will let us know if there is any other information needed. Gordon Cameron MD - 10/10/2020 3:07 PM CDT Please call the number below with the findings I previously copied: CT impression can be read to one of the nurses by calling and asking for a nurse so the PA can move forward. Gordon Cameron MD - 10/10/2020 12:06 PM CDT Results are available in Care Everywhere. Here is the CT chest result from February: IMPRESSION: 1. Small foci of tree-in-bud and [...] are compatible with the history of asthma. Zoe Ivey LPN - 10/10/2020 11:17 AM CDT Called number provided, spoke with a phone representative, CT impression needed from [facility] done in February of 2020. Spoke to [facility] records department, and they will be sending these CT results via fax to [phone]. CT impression can be read to one of the nurses by calling and asking for a nurse so the PA can move forward. Gordon Cameron MD - 10/10/2020 11:11 AM CDT OK to wait until Don returns to address. Astrid Rahman - 10/10/2020 9:39 AM CDT Received fax from [employer] [place] [id number] CAT SCAN FOLLOW-UP STUDY scheduled 10/07/20: URGENT ACTION NEEDED: This notice is an effort to provide you with the opportunity for a physicianto physician discussion regarding the case within 24 hours. You may speak with a Special Makeup Fx Artist Instructor [facility] and provide the reference number [id number]. documented in this encounter Plan of Treatment Not on filedocumented as of this encounter Visit Diagnoses Not on filedocumented in this encounter Care Teams Bow Maker Machine Tender Relationship Specialty Start Date End Date Bj Pelletier MD PCP - General 05/19/[address] [facility], [address] documented as of this encounter
--- OUTSIDE RECORDS SUMMARY | 2021-12-03 11:43 | XMS_ITS | Encounter Summary ---
:1955 Author Organization [facility] Address [address], [place] [address] Care Team Providers Name Role Phone Bj Pelletier MD Primary Care Provider Unavailable Reason for Visit Procedure/Equipment (Routine) - Incomplete Specialty Diagnoses / Procedures Referred By Contact Refer red To Contact Procedures Provider, Foreign Images Foreign Image(S) Mammogram [address] [place] [address] Referral ID Status Reason Start Date Expiration Date Visits V isits Requested Authorized [id number] Incomplete 06/17/2021 09/16/2022 1 1 Encounter Details Date Type Department Care Team Description 12/21/2019 Ancillary Procedure [facility] Radiology PACS Provider, [address] [place] [address] [address] [place] [address] Social History Tobacco Use Types Packs/Day Years [...] Date/Time Associated Diagnosis Comme nts FOREIGN IMAGE(S) Routine 12/21/2019 2:00 PM Resul ts for this MAMMOGRAM SHIPPING POINT INSPECTOR procedure are i n the results section. documented in this encounter Results Foreign Image(S) Mammogram (12/21/2019 2:00 PM SHIPPING POINT INSPECTOR) Specimen (Source) Anatomical Location Collection Method / Collectio n Time Received Time / Laterality Volume Narrative POCT - 06/17/2021 10:31 AM CDT These outside images have been uploaded into PACS. If the results were provided, they will be located in the pa aryannt's chart under the Media or Imaging tab. Foreign Images Provider RAD NON-REPORTABLES Performing Organization Address City/State/ZIP Code Phon e Number POCT documented in this encounter Visit Diagnoses Not on filedocumented in this encounter Care Teams Bevel Gear Generator Operator Relationship Specialty Start Date End Date Bj Pelletier MD PCP - General 05/19/[address] [facility], [address] documented as of this encounter
--- OUTSIDE RECORDS SUMMARY | 2021-12-03 11:43 | XMS_ITS | Encounter Summary ---
:1955 Author Organization [facility] Address [address] [place] [address] Care Team Providers Name Role Phone Bj Pelletier MD Primary Care Provider Unavailable Reason for Visit Procedure/Equipment (Routine) - Incomplete Specialty Diagnoses / Procedures Referred By Contact Refer red To Contact Diagnoses Closed fracture of lateral portion of right tibial plateau with routine healing Otis Crump MD Procedures XR Knee Rt [address] [place] [address] [place], [place] [address] Referral ID Status Reason Start Date Expiration Date Visits V isits Requested Authorized [id number] Incomplete 08/27/2020 11/26/2021 1 1 Encounter Details Date Type Department Care Team Description 08/27/2020 Ancillary [place] Otis Jones, Closed f racture of Procedure [place] [address] lateral portion of Radiology [address] [place] [address] right tibial [address] [place], [place] [address] [facility] [address] [address] routine healing [place], [place] [phone] [address] (Work) [phone] Social History Tobacco Use Types Packs/Day Years [...] Associated Diagnosis Comme nts XR KNEE RT 2 VIEWS Routine 08/27/2020 4:17 PM Closed fracture of Results for this CDT lateral portion of procedure are in right tibial plateau the res ults with routine healing section . documented in this encounter Results XR Knee Rt 2 [...] healing documented in this encounter Care Teams Ultrasonographer Relationship Specialty Start Date End Date Bj Pelletier MD PCP - General 05/19/[address] [facility], [address] documented as of this encounter
--- OUTSIDE RECORDS SUMMARY | 2021-12-03 11:43 | XMS_ITS | Encounter Summary ---
:1955 Author Organization [facility] Address [address] [place] [address] Care Team Providers Name Role Phone Bj Pelletier MD Primary Care Provider Unavailable Reason for Visit Reason Comments Knee Problem Encounter Details Date Type Department Care Team Description 09/30/2020 Therapy [facility], Maxwell Holder PT Acute pain of right knee (Primary Dx); Physical Therapy [address] Knee stiff, right [address] [place], [place] [phone] (Wo rk) Social History Tobacco Use Types Packs/Day Years Used Date Smoking Tobacco: Never Smokeless Tobacco: Never Alcohol Use Standard Drinks/Week Comments Yes 4 (1 standard drink = 0.6 oz pure alcoho l) Sex Assigned at Date Recorded Female 10/03/2020 11:17 AM CDT documented as of this encounter Progress Notes Symone Holder PT - 09/30/2020 1:45 PM CDT [facility] Daily Note Visit Number: 3 [...] she is doing well. States that she has been walking more without her brace. Reports that she drove for the first time, and felt fine. OBJECTIVE: Today???s Findings Knee ROM (jkgzdbuew-zdw-bxim): 1-132 Strength: Quad set good TREATMENT TODAY: Therapeutic Exercise (CPT 05497) x 30 minutes: Utilized for the purpose of improving strength, ROM, endurance, and/or flexibility: Access Code: [email or web address] Exercises Long Sitting Calf Stretch with Strap - [...] session well without increase in pain. Demonstrates symmetrical knee flexion ROM, however is still limited with knee extension during stance and supine on the R. Able to perform SLR without quad lag. Demonstrates difficulty with eccentric control during squats of chair height. Recommend continued skilled PT to address deficits [...] in 6 weeks. Therapist: Symone Holder PT 1:48 PM 09/30/2020 documented in this encounter Plan of Treatment Not on filedocumented as of this encounter Visit Diagnoses Diagnosis Acute pain of right knee - Primary Knee stiff, right documented in this encounter Care Teams Entry Level Chemist Relationship Specialty Start Date End Date Bj Pelletier MD PCP - General 05/19/[address] [facility], [address] documented as of this encounter
--- OUTSIDE RECORDS SUMMARY | 2021-12-03 11:43 | XMS_ITS | Encounter Summary ---
:1955 Author Organization [facility] Address [address], [place] [address] Care Team Providers Name Role Phone Bj Pelletier MD Primary Care Provider Unavailable Reason for Visit Procedure/Equipment (Routine) - Incomplete Specialty Diagnoses / Procedures Referred By Contact Refer red To Contact Procedures Provider, Foreign Images Foreign Image(S) CT Chest [address] [place] [address] Referral ID Status Reason Start Date Expiration Date Visits V isits Requested Authorized [id number] Incomplete 12/02/2020 03/03/2022 1 1 Encounter Details Date Type Department Care Team Description 10/25/2020 Ancillary Procedure [facility] PACS Provider, [address] [place] [address] [address] [place] [address] Social History Tobacco Use Types Packs/Day Years [...] Diagnosis Comme nts FOREIGN IMAGE(S) CT Routine 10/25/2020 10:20 AM R esults for this CHEST CDT procedure are i n the results section. documented in this encounter Results Foreign Image(S) CT Chest (10/25/2020 10:20 AM CDT) Specimen (Source) Anatomical Location Collection Method / Collectio n Time Received Time / Laterality Volume Narrative POCT - 12/02/2020 10:19 AM CDT These outside images have been uploaded into PACS. If the results were provided, they will be located in the pa tient's chart under the Media or Imaging tab. Foreign Images Provider RAD NON-REPORTABLES Performing Organization Address City/State/ZIP Code Phon e Number POCT documented in this encounter Visit Diagnoses Not on filedocumented in this encounter Care Teams Vamp Stitcher Relationship Specialty Start Date End Date Bj Pelletier MD PCP - General 05/19/[address] [facility], [address] documented as of this encounter
--- OUTSIDE RECORDS SUMMARY | 2021-12-03 11:43 | XMS_ITS | Encounter Summary ---
:1955 Author Organization [facility] Address [address], [place] [address] Care Team Providers Name Role Phone Bj Pelletier MD Primary Care Provider Unavailable Reason for Visit Reason Comments COVID Test Results Encounter Details Date Type Department Care Team Description 10/15/2020 Telephone [place] [address] [address] [facility], Francisco Javier Brink, PA-C COVID Test Results [facility] [address] [facility] [address] [place] [address] [place] [address] [phone] Social History Tobacco Use Types Packs/Day Years Used Date Smoking Tobacco: Never Smokeless Tobacco: Never Alcohol Use Standard Drinks/Week Comments Yes 4 (1 standard drink = 0.6 oz pure alcoho l) Sex Assigned at Date Recorded Female 10/03/2020 11:17 AM CDT documented as of this encounter Nursing Notes Kari Cartagena RN - 10/15/2020 2:09 PM CDT Clinician Action: Input needed regarding imaging results Clinician Next Step: Route to [place] Nurse freeport to follow up Specific Request(s): 1. Pt requesting chest CT results from 10/07/20. Please advise. Antonina Nice - 10/15/2020 2:01 PM CDT Test Results (Advise caller/patient can view test results in [facility], if enrolled) What test are you calling about? CT Chest WO IV Cont Lung Nodule Primary Eap Clinician: Bj Pelletier MD Who ordered the test? (include first & last name) Jose Parada PA-C When and where was the test done? 10/07/20, [facility] Additional comments (related to the above concern): If a prescription is needed, patient would like it filled at the pharmacy listed in Meds & Orders. (Verify the pharmacy patient would like to use for this request is highlighted in blue in PharmacySelection under Meds & Orders) Is it okay to leave a detailed message on your voicemail? Yes (Advise caller that the PN call back number will end with [phone] or unknown) Please route to: Triage Pool documented in this encounter Plan of Treatment Not on filedocumented as of this encounter Visit Diagnoses Not on filedocumented in this encounter Care Teams Shock Absorber Installer Relationship Specialty Start Date End Date Bj Pelletier MD PCP - General 05/19/[address] [facility], [address] documented as of this encounter
--- OUTSIDE RECORDS SUMMARY | 2021-12-03 11:43 | XMS_ITS | Encounter Summary ---
:1955 Author Organization [facility] Address [address] [place] [address] Care Team Providers Name Role Phone Bj Pelletier MD Primary Care Provider Unavailable Reason for Visit Reason Comments APPOINTMENT REQUEST left message to schedule PFT prior to consult with Dr Ronquillo on 11/13 also need to know if va ccinated and if not then schedule covid test as well. Encounter Details Date Type Department Care Team Description 10/22/2020 Telephone [facility] Shyam Ronquillo, APPOINTMENT REQUEST Pulmonary Medicine MBBS (left message to [address] schedule PFT prior to [place], [place] [address] consult with [address] [place], [place] on 11/13 also [phone] need to know if [phone] (Wo rk) vaccinated and if not then sche dule covid test as well. ) Social History Tobacco Use Types Packs/Day Years [...] on filedocumented in this encounter Care Teams Informatica Architect Relationship Specialty Start Date End Date Bj Pelletier MD PCP - General 05/19/[address] [place] [address] documented as of this encounter
--- OUTSIDE RECORDS SUMMARY | 2021-12-03 11:43 | XMS_ITS | Encounter Summary ---
:1955 Author Organization [facility] Address [address] [place] [address] Care Team Providers Name Role Phone Bj Pelletier MD Primary Care Provider Unavailable Reason for Referral Procedure/Equipment (Routine) - Incomplete Specialty Diagnoses / Procedures Referred By Contact Refer red To Contact Diagnoses Hip pain Rowdy Brand MD Procedures XR Pelvis W Lt Lateral Hip [address] [place], [place] [address] Referral ID Status Reason Start Date Expiration Date Visits V isits Requested Authorized [id number] Incomplete 09/24/2019 12/23/2020 1 1 Procedure/Equipment (Routine) - Incomplete Specialty Diagnoses / Procedures Referred By Contact Refer red To Contact Diagnoses Left foot pain Rowdy Brand MD Procedures XR Foot Lt 3+ Views [address] [place], [place] [address] Referral ID Status Reason Start Date Expiration Date Visits V isits Requested Authorized [id number] Incomplete 09/24/2019 12/23/2020 1 1 Reason for Visit Reason Comments HIP PAIN left, no ARIK Foot Pain left, no ARIK Encounter Details Date Type Department Care Team Description 09/24/2019 Office Visit [facility] Rowdy Brand, Gluteal tendinitis of left buttock (Primary Dx); Urgent Care MD Tendinitis of ankle or foot; [address] [facility] [address] [facility] Left foot pain; [place], [place] [address] [place], [place] Hip pain [phone] (Wo rk) Social History Tobacco Use Types [...] - Pulse - - Temperature 36.7 ??C (98 ??F) 09/24/2019 11:56 AM CDT Respiratory Rate - - Oxygen Saturation - - Inhaled Oxygen Concentration - - Weight 56.7 kg (125 lb) 09/24/2019 11:56 AM CDT Height 162.6 cm (5' 4) 09/24/2019 11:56 AM CDT Body Mass Index 21.46 09/24/2019 11:56 AM CDT documented in this encounter Patient Instructions Patient InstructionsRowdy Brand MD - 09/24/2019 11:[address] Rowdy Brand MD Sports & Orthopaedic Medicine [facility] Nurse Line: [phone] Please contact Orthopedic Urgent Care line for all requests and questions. Medication Requests: Prescriptions are not filled on Weekends or on Weekdays after 3:00PM For all medication refills: Request a refill using MyChart or contact your Pharmacy To schedule appointments: [phone] Paperwork Requests: FMLA or disability paperwork can be faxed to: [phone] Medical records: [phone] (option 4) [employer] E-mail Address: [email or web address] Diagnosis: 1. Left gluteal tendinopathy possible lumbar radiculopathy 2. Left foot and ankle tendonitis Plan: Home exercises- see attached packets If not improving, call to schedule formal physical therapy documented in this encounter Progress Notes Rowdy Brand MD - 09/24/2019 12:00 PM CDT NAME: MEGAN AYON MR#: [id number] CSN: [id number] AUTHENTICATING CLINICIAN: Rowdy Brand MD CONFIRM #: [id number] LOC: 711 CLINIC PROGRESS NOTE DATE OF VISIT: 09/24/2019 : 1955 SUBJECTIVE: This is a 63-year-old female who returns to [facility], this time for her left hip and thigh, as well as the top of her left foot. She says, for the past month, without any specific trauma, she has had pain.She relates it to being fairly sedentary and doing a lot of sitting. She has been working from home and has tried to get up and stretch and move around, which she says does help. For the past 2 weeks, the top of her foot has been painful and she thinks there may have been some swelling a couple weeks ago. She has not tried much treatment other than some stretching and ice at this point. REVIEW OF SYSTEMS: No fevers, chills, numbness, or tingling. No joint pain or swelling in other joints. CURRENT MEDICATIONS: Reviewed on EMR. ALLERGIES: Reviewed on EMR. PAST MEDICAL HISTORY: Wrist tenosynovitis, finger fracture, right shoulder impingement, distal radius fracture, femoral hernia, melanoma of the right hip, low back pain with lumbar radiculopathy. PAST SURGICAL HISTORY: Right wrist surgery, hernia repair, melanoma excision. 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 She has been working from home and has been sedentary over the past month. She denies tobacco. PHYSICAL EXAM: Temperature is 98.0, height 5 feet 4 inches, weight 125 pounds, pain 0/10 to 8/10. GENERAL: She is alert and pleasant and in no acute distress. She ambulates favoring her left hip. On inspection, thereare no overlying skin changes. She has tenderness posteriorly over the SI joint as well as the sciatic notch and hip external rotators on the left compared to the right. Hip motion is somewhat limited secondary to pain posteriorly. Straight leg raise is positive for pain, which radiates into the left thigh. The patient has normal sensation and deep tendon reflexes. On inspection of her left foot, there is mild soft tissue swelling over the dorsum of the mid and hindfoot. She has tenderness over these areas. There is some pain with resisted dorsiflexion as well as eversion over these sites. There isno bony tenderness with no audible or palpable crepitus. She has strong symmetric distal pulses withnormal sensation and cap refill throughout her digits. IMAGING STUDIES: Radiology review: X-rays, AP of the pelvis and left lateral hip series, will be over-read by Radiology, but on my view show surgical clips along the right aspect of the pelvis. Minimal degenerative changes within the hips and SI joints and visualized lumbar spine. No acute cortical defects. X-rays, 3 views of the left foot, will be over-read by Radiology, but on my view show minimal degenerative changes of the midfoot. Mild soft tissue swelling of the midfoot on lateral views. No acute cortical defects. ASSESSMENT: 1.Left posterior hip and thigh pain consistent with hip external rotator tendinopathy with a possible element of lumbar radiculopathy. 2.Left dorsal foot and ankle pain consistent with tendinitis with possible element of stress injury with no clear evidence for fracture on today's x-rays. PLAN: I reviewed the x-ray findings and [...] see her back on an as-needed basis. The patient mentioned parenthetically that her right shoulder has continued to bother her despite cortisone injection after her last visit. She can call to arrange formal physical therapy for this as well. PIPPA:TERRY C: R:09/24/19 12:49 CONFIRM#:[id number] documented in this encounter Plan of Treatment Not on filedocumented as of this encounter Results XR Pelvis W Lt Lateral Hip (09/24/2019 12:27 PM CDT) Anatomical Region Laterality Modality Pelvis, Hip Digital Radiography Specimen (Source) Anatomical Collection Method Collection Time Re ceived Time Location / / Volume Laterality 09/24/2019 12:26 PM CDT Impressions 09/24/2019 1:41 PM CDT COMPARISON: ??CT abdomen/pelvis 02/10/2012 FINDINGS: ??Bony structures appear intac t. ??Joint spaces appear within normal limits. ??There is no dislocation or significant degenerative change in the hips or SI joints. Procedure Note Mark Anthony Edmonds MD - 09/24/2019Formatti ng of this note might be different from the original. IMPRESSION COMPARISON: CT abdomen/pelvis 02/10/2012 FINDINGS: Bony structures appear intact. Joint spaces appear within normal limits. There is no dislocation or significant degenerative change in the hips or SI joints. Rowdy Brand MD RAD GD XR Foot Lt 3+ Views (09/24/2019 12:27 [...] documented in this encounter Visit Diagnoses Diagnosis Gluteal tendinitis of left buttock - Catrina sara Enthesopathy of hip region Tendinitis of ankle or foot Left foot pain Pain in limb Hip pain Pain in joint, pelvic region and thigh Left foot pain Pain in limb Hip pain Pain in joint, pelvic region and thigh documented in this encounter Care Teams Salt Grinder Relationship Specialty Start Date End Date Bj Pelletier MD PCP - General 05/19/[address] [place], [address] documented as of this encounter
--- OUTSIDE RECORDS SUMMARY | 2021-12-03 11:43 | XMS_ITS | Encounter Summary ---
:1955 Author Organization [facility] Address [address] [address] Care Team Providers Name Role Phone Bj Pelletier MD Primary Care Provider Unavailable Reason for Visit Procedure/Equipment (Routine) - Pending Review Specialty Diagnoses / Procedures Referred By Contact Refer red To Contact Diagnoses Pulmonary nodule Jose Parada, PA-C Procedures CT Chest WO IV Cont Lung Nodule [address] [place] [address] Referral ID Status Reason Start Date Expiration Date Visits V isits Requested Authorized [id number] Pending 10/07/2020 01/06/2022 1 1 Review Encounter Details Date Type Department Care Team Description 10/07/2020 Ancillary Procedure [facility] Jose Pedraza, Pul monary nodule [place] [address] CT PA-C Scan [id number] [place] [address] [place] [id number] Social History Tobacco Use Types Packs/Day Years [...] Priority Date/Time Associated Diagnosis Comme nts CT CHEST WO IV CONT Routine 10/07/2020 5:35 PM Pulmonary nodul e Results for this LUNG NODULE CDT procedure are i n the results section. documented in this encounter Results CT Chest WO IV Cont Lung Nodule (10/07/2020 5:35 PM CDT) Anatomical Region Laterality Modality Chest, Lung Computed Tomography Specimen (Source) Anatomical Collection Method Collection Time Re ceived Time Location / / Volume Laterality 10/07/2020 5:28 PM CDT Impressions 10/08/2020 7:31 AM CDT TECHNIQUE: Images were obtained through the chest without contrast. COMPARISON: 02/10/2012 FINDINGS: THYROID: Lobulated thyroid morphology; n o discrete thyroid nodules identified. GREAT VESSELS: Normal in course and jevon robin. HEART: Heart size normal. Partial visual ization of coronary artery calcific atherosclerotic disease. PERICARDIUM: No pericardial effusion. PLEURAL EFFUSION: No pleural effusions b ilaterally. ESOPHAGUS: Diminutive hiatal hernia, wit hout evidence of complication. CHEST WALL: Diminutive fat-containing le ft-sided diaphragmatic hernia (series 3, image 51), doubtful clinical significance. AXILLAE: No adenopathy. MEDIASTINUM AND YANET: Scant residual thy merline tissue within the anterior mediastinum. No mediastinal adenopathy by size criteria. Evaluation for hilar lymphadenopathy is limited by lack of intravenous contrast administration. CENTRAL AIRWAYS: Clear. LUNG: A few scattered sub-6 mm pulmonary nodules identified. For example, a 0.2 x 0.2 cm pulomonary nodule is identified at the right lung apex (series 4, image 16). A 0.4 x 0.3 cm pulmonary nodule is i dentified within the right lower lobe (s eries 4, image 49; series 6, image 61). A 0.2 x 0.2 cm pulmonary nodule is identified within the anterior aspect of the right lower lobe (series 4, image 65). Sma ll cluster of centrilobular nodularity w ithin the left lung apex (series 9, image 11), nonspecific, though likely reflecting a small focus of infectious/inflammatory respiratory bronchiolitis. PLEURA: Unremarkable. UPPER ABDOMEN: Limited evaluation the up per abdomen demonstrates no acute upper abdominal pathology. Diffusely increased density of the liver, nonspecific, can be seen with mild diffuse iron deposition disease or medication effect. The liver retains a nonnodular contour. Probable noninflamed diminutive diverticulum off the posterior aspect of the gastric fundus (series 6, image 44; series 2, image 44). BONES: No acute fracture. Mild multileve l degenerative changes of the thoracic spine. Advanced degenerative changes of the bilateral glenohumeral joints. Degenerative changes of the ujzu-fmucxni-mgeq-right sternoclavicular joints. IMPRESSION: 1. Small focus of centrilobular nodulari ty within the left upper lobe, nonspecific, though likely reflecting a small focus of infectious/inflammatory respiratory bronchiolitis. 2. Scattered sub-6 mm pulmonary nodules bilaterally. Given the patient's stated history of melanoma, Fleischner pulmonary nodule follow-up criteria are non- applicable. PN Consensus Recommendation for pu lmonary nodules in patients younger than 35 years, immunocompromised patients or patients with cancer: Treatment and management decisions should be based on the clinical situation. 3. Mild, diffusely increased density of the liver, nonspecific, can be seen with mild diffuse iron deposition disease or medication effect. ?? Procedure Note Huy Sotomayor MD - 10/08/2020Format ting of this note might be different from the original. IMPRESSION TECHNIQUE: Images were obtained through the chest without contrast. COMPARISON: 02/10/2012 FINDINGS: THYROID: Lobulated thyroid morphology; n o discrete thyroid nodules identified. GREAT VESSELS: Normal in course and jevon robin. HEART: Heart size normal. Partial visual ization of coronary artery calcific atherosclerotic disease. PERICARDIUM: No pericardial effusion. PLEURAL EFFUSION: No pleural effusions b ilaterally. ESOPHAGUS: Diminutive hiatal hernia, wit hout evidence of complication. CHEST WALL: Diminutive fat-containing le ft-sided diaphragmatic hernia (series 3, image 51), doubtful clinical significance. AXILLAE: No adenopathy. MEDIASTINUM AND YANET: Scant residual thy merline tissue within the anterior mediastinum. No mediastinal adenopathy by size criteria. Evaluation for hilar lymphadenopathy is limited by lack of intravenous contrast administration. CENTRAL AIRWAYS: Clear. LUNG: A few scattered sub-6 mm pulmonary nodules identified. For example, a 0.2 x 0.2 cm pulomonary nodule is identified at the right lung apex (series 4, image 16). A 0.4 x 0.3 cm pulmonary nodule is identified within the right lower lobe (series 4, image 49 ; series 6, image 61). A 0.2 x 0.2 cm pulmonary nodule is identified within the anterior aspect of the right lower lobe (series 4, image 65). Small cluster of centrilobular nodularity within the left lung apex (series 9, tommy ge 11), nonspecific, though likely reflecting a small focus of infectious/inflammatory respiratory bronchiolitis. PLEURA: Unremarkable. UPPER ABDOMEN: Limited evaluation the up per abdomen demonstrates no acute upper abdominal pathology. Diffusely increased density of the liver, nonspecific, can be seen with mild diffuse iron deposition disease or medication effect. The liver retains a n onnodular contour. Probable noninflamed diminutive diverticulum off the posterior aspect of the gastric fundus (series 6, image 44; series 2, image 44). BONES: No acute fracture. Mild multileve l degenerative changes of the thoracic spine. Advanced degenerative changes of the bilateral glenohumeral joints. Degenerative changes of the jrib-zaejilc-pafp-right sternoclavicular joints. IMPRESSION: 1. Small focus of centrilobular nodulari ty within the left upper lobe, nonspecific, though likely reflecting a small focus of infectious/inflammatory respiratory bronchiolitis. 2. Scattered sub-6 mm pulmonary nodules bilaterally. Given the patient's stated history of melanoma, Fleischner pulmonary nodule follow-up criteria are non- applicable. PN Consensus Recommendation for pulmonary nodules in patients younger than 35 years, immunoco mpromised patients or patients with cancer: Treatment and management decisions should be based on the clinical situation. 3. Mild, diffusely increased density of the liver, nonspecific, can be seen with mild diffuse iron deposition disease or medication effect. Jose Parada PA-C RAD CT documented in this encounter Visit Diagnoses Diagnosis Pulmonary nodule Solitary pulmonary nodule documented in this encounter Care Teams Signs And Displays Salesperson Relationship Specialty Start Date End Date Bj Pelletier MD PCP - General 05/19/[address] [place], [address] documented as of this encounter
--- OUTSIDE RECORDS SUMMARY | 2021-12-03 11:43 | XMS_ITS | Encounter Summary ---
:1955 Author Organization [facility] Address [address], [place] [address] Care Team Providers Name Role Phone Bj Pelletier MD Primary Care Provider Unavailable Reason for Referral Procedure/Equipment (Routine) - Incomplete Specialty Diagnoses / Procedures Referred By Contact Refer red To Contact Diagnoses Right knee pain, unspecified chronicity Otis Springer MD Procedures Crutches Aluminum([id number]) [address] [place] [address] Referral ID Status Reason Start Date Expiration Date Visits V isits Requested Authorized [id number] Incomplete 08/13/2020 11/12/2021 1 1 Procedure/Equipment (Routine) - Incomplete Specialty Diagnoses / Procedures Referred By Contact Refer red To Contact Diagnoses Right knee pain, unspecified chronicity Otis Springer MD Procedures L[place]y Knee hinged brace(1105) [address] [place] [address] Referral ID Status Reason Start Date Expiration Date Visits V isits Requested Authorized [id number] Incomplete 08/13/2020 11/12/2021 1 1 Reason for Visit Reason Comments MRI Results right knee Encounter Details Date Type Department Care Team Description 08/13/2020 Office Visit TRIOtis Cummings MD Right knee pain, Orth[facility] [place], [place] chronicity (Primary [address] [address] Dx) [place], [place] [phone] (Wo rk) [address] [phone] Social History Tobacco Use Types Packs/Day Years [...] Pressure - - Pulse - - Temperature 36.2 ??C (97.2 ??F) 08/13/2020 4:26 PM CDT Respiratory Rate - - Oxygen Saturation - - Inhaled Oxygen Concentration - - Weight - - Height - - Body Mass Index - - documented in this encounter Patient Instructions Patient InstructionsLeChava llanse, ATC - 08/13/2020 4:[address] Otis Springer MD Sports & Orthopedic Medicine Acute [facility] Medication Requests: Prescriptions are not filled on Weekends or on Weekdays after 3:00PM For all medication refills: Request a refill using [employer] or contact your Pharmacy MRI Scheduling: To schedule an MRI at [facility] please call [phone] Paperwork Requests: Questions regarding FMLA or disability paperwork please call [phone] Phone lines are answered 8AM to 5PM Wednesday - Wednesday. General Scheduling: To schedule an appointment, please call [phone] [facility] Nurse Line: [phone] Workers??? Compensation: Please contact our department for any Work Comp concerns at Email: [email or web address] Diagnosis: Knee pain, tibial plateau fx Plan: Follow Up: Return to clinic in 2 week(s) with Orthopedic Urgent Care. If you have any questions regarding your visit or next steps, please contact us at [phone]. RICE: - No weight-bearing with the affected limb. Brace/DME: You were provided a hinged knee brace and crutches in clinic today. Please use and care according to instructions given today. This item will be billed to your insurance. If insurance does not cover this item, you will be billed for any uncovered amount. You should wear your item as follows: use for non weight bearing for next 2 weeks. Imaging Medical Education Manager: [place] [address]. Call [phone] to schedule. Medication Requests: Prescriptions are filled on Weekdays before 3:00PM For all medication refills: Request a refill using [employer] or contact your Pharmacy Paperwork Requests: FMLA or disability paperwork can be faxed to: [place] - [phone] Please allow 7-10 business days for completion of all paperwork. [employer] Services: E-mail Address: [email or web address] To request copies of your medical records, call: [phone] (option 4) documented in this encounter Progress Notes Otis Springer MD - 08/13/2020 12:00 AM CDT NAME: MEGAN AYON CSN: [id number] CLINIC NOTE DATE OF SERVICE: 08/13/2020 : 1955 REASON FOR VISIT: Follow up right knee pain with MRI results. HISTORY: The patient notes continued lateral-sided knee pain, which is aggravated by weight bearing activity. EXAM: GENERAL: She is in no acute distress. She is alert, oriented x3. MUSCULOSKELETAL: Knee has a mild effusion. She has tenderness to palpation across the lateral joint line. Tolerates knee flexion to about 100 degrees. IMAGING: I reviewed the results of her knee MRI. She does have a lateral tibial plateau fracture, which appears nondisplaced. 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 ASSESSMENT: Right knee lateral tibial plateau fracture. PLAN: We dispensed Tubigrip and a hinged knee brace. We also dispensed crutches. She is to be non-weight bearing. We discussed nonweightbearing range of motion exercises as symptoms allow. Follow up in2 weeks with a 2-view x-ray of the knee at that time. She will return sooner for any worsening symptoms. OTIS SPRINGER MD DLM/AQS /[id number] documented in this encounter Plan of Treatment Not on filedocumented as of this encounter Visit Diagnoses Diagnosis Right knee pain, unspecified chronicity - Primary documented in this encounter Care Teams Wood Processing Worker Relationship Specialty Start Date End Date Bj Pelletier MD PCP - General 05/19/[address] [facility], [address] documented as of this encounter
--- OUTSIDE RECORDS SUMMARY | 2021-12-03 11:43 | XMS_ITS | Encounter Summary ---
:1955 Author Organization [facility] Address [address] [place] [address] Care Team Providers Name Role Phone Bj Pelletier MD Primary Care Provider Unavailable Reason for Visit Reason Comments Knee Problem Encounter Details Date Type Department Care Team Description 09/11/2020 Therapy [facility], Maxwell Holder PT Acute pain of right knee (Primary Dx); Physical Therapy [address] Knee stiff, right [address] [place], [place] [phone] (Wo rk) Social History Tobacco Use Types Packs/Day Years Used Date Smoking Tobacco: Never Smokeless Tobacco: Never Alcohol Use Standard Drinks/Week Comments Yes 4 (1 standard drink = 0.6 oz pure alcoho l) Sex Assigned at Date Recorded Female 10/03/2020 11:17 AM CDT documented as of this encounter Progress Notes Symone Holder PT - 09/11/2020 9:15 AM CDT [facility] [place] [facility] Daily Note Visit Number: 2 [email or web address] Initial Certification Period: 08/28/2020 to 10/27/20 [...] Report: Patient reports that her knee feels better. States that her swelling has gone down and has been able to sleep. Patient reports that she still has pain in the back of her knee while she extends. States that she still has difficulty with doing stairs. OBJECTIVE: Today???s Findings Knee ROM (iywgzdxur-jmz-coen): 0-7-110 Strength: Quad set fair, SLR with lag TREATMENT TODAY: Therapeutic Exercise (CPT 23063) x 25 minutes: Utilized for the purpose of improving strength, ROM, endurance, and/or flexibility: Access Code: [email or web address] Exercises Long Sitting Calf Stretch with Strap - 2 x daily - 3 reps - 30 hold (sec) Sitting Heel Slide with Towel - 2 x daily - 2 sets - 20 reps Supine Knee Extension Stretch on Towel Roll - 1 x daily - 7 x weekly - 3 sets - 10 reps Seated Knee Extension Stretch with Chair - 1 x daily - 7 x weekly - 3 sets - 10 reps Active Straight Leg Raise with Quad Set - 1 x daily - 7 x weekly - 3 sets - 10 reps Supine Quad Set - 1-2 x daily - 7 x weekly - 1-2 sets - 5 reps - 10 hold Mini Squat with Counter Support - 1 x daily - 7 x weekly - 3 sets - 10 reps Verbal and tactile cues required to ensure correct exercise technique. Patient able to perform exercise correctly with good technique and no reports of increased pain. Patient instructed to discontinueexercise if increased pain were to occur. Patient verbalized understanding. Timed Code Treatment Minutes: 25 Total Treatment Minutes: 25 ASSESSMENT: Patient tolerated session well without increase in pain. Demonstrated significant improvement in knee ROM. Continues to remain limited with knee extension. Continued with therapeutic exercise in order to improve knee ROM and strength. Patient was able to progress to WB exercises. Patient has since disc ontinued using AD during gait. Recommend continued skilled PT to address deficits and return patientto highest level of function. PLAN: Progress HEP. Trial manual therapy. TKE. Hip strengthening. EXPECTED FUNCTIONAL OUTCOMES/GOALS: HEP/Independent Management: Demonstrate independence [...] in 6 weeks. Therapist: Symone Holder, AKASH 9:14 AM 09/11/2020 documented in this encounter Plan of Treatment Not on filedocumented as of this encounter Visit Diagnoses Diagnosis Acute pain of right knee - Primary Knee stiff, right documented in this encounter Care Teams Continuous Improvement Director Relationship Specialty Start Date End Date Bj Pelletier MD PCP - General 05/19/[address] [facility], [address] documented as of this encounter
--- OUTSIDE RECORDS SUMMARY | 2021-12-03 11:43 | XMS_ITS | Encounter Summary ---
:1955 Author Organization [facility] Address [address] [place] [address] Care Team Providers Name Role Phone Bj Pelletier MD Primary Care Provider Unavailable Reason for Visit Procedure/Equipment (Routine) - Incomplete Specialty Diagnoses / Procedures Referred By Contact Refer red To Contact Diagnoses Hip pain Rowdy Brand MD Procedures XR Pelvis W Lt Lateral Hip [address] [facility] [place] [address] [place] [address] Referral ID Status Reason Start Date Expiration Date Visits V isits Requested Authorized [id number] Incomplete 09/24/2019 12/23/2020 1 1 Encounter Details Date Type Department Care Team Description 09/24/2019 Ancillary Procedure [facility] Rowdy Brand MD Hip pain [address] [facility] [address] [facility] [address] [place], [place] [phone] (Wo rk) Social History Tobacco Use Types [...] Priority Date/Time Associated Diagnosis Comme nts XR PELVIS W LT Routine 09/24/2019 12:27 PM Hip pain Result s for this LATERAL HIP CDT procedure are i n the results section. documented in this encounter Results XR Pelvis W Lt [...] SI joints. Rowdy Brand MD RAD GD documented in this encounter Visit Diagnoses Diagnosis Hip pain Pain in joint, pelvic region and thigh documented in this encounter Care Teams Oracle Drm Consultant Relationship Specialty Start Date End Date Bj Pelletier MD PCP - General 05/19/[address] [facility], [address] documented as of this encounter
--- OUTSIDE RECORDS SUMMARY | 2021-12-03 11:43 | XMS_ITS | Encounter Summary ---
:1955 Author Organization [facility] Address [address], [place] [address] Care Team Providers Name Role Phone Bj Pelletier MD Primary Care Provider Unavailable Reason for Referral Consult/Transfer Care (Routine) - New Request Specialty Diagnoses / Procedures Referred By Contact Refer red To Contact Diagnoses Moderate persistent asthma without complication (HRC) Allergic rhinitis, unspecified seasonality, unspecified trigger Joes Parada PA-C [address] [place] [address] Referral ID Status Reason Start Date Expiration Date Visits V isits Requested Authorized [id number] New Request 10/07/2020 01/06/2022 1 1 Scheduling Instructions Your provider has recommended an appoint ment with [facility]. You may call [phone] to schedule your a ppointment. We suggest you call your health insurance company about your coverage an d benefits for this appointment. Procedure/Equipment (Routine) - Pending Review Specialty Diagnoses / Procedures Referred By Contact Refer red To Contact Diagnoses Pulmonary nodule Jose Parada PA-C Procedures CT Chest WO IV Cont Lung Nodule [address] [place] [address] Referral ID Status Reason Start Date Expiration Date Visits V isits Requested Authorized [id number] Pending 10/07/2020 01/06/2022 1 1 Review Reason for Visit Reason Onset Date Comments Video Visit 10/07/2020 Encounter Details Date Type Department Care Team Description 10/07/2020 Telemedicine [place] [address] Jose Parada, Pulmonar y nodule (Primary Dx); Family Medicine [facility] Essential hypertension; [address] Moderate persistent asthma without compl ication; [place], [place] Allergic rhin itis, unspecified seasonality, unspecified trigger [phone] Social History Tobacco Use Types Packs/Day Years Used Date Smoking Tobacco: Never Smokeless Tobacco: Never Alcohol Use Standard Drinks/Week Comments Yes 4 (1 standard drink = 0.6 oz pure alcoho l) Sex Assigned at Date Recorded Female 10/03/2020 11:17 AM CDT documented as of this encounter Progress Notes Jose Parada PA-C - 10/07/2020 9:40 AM CDT Subjective: Today's visit with Megan was conducted as a scheduled video visit. Chief Complaint Patient presents with ??? Video Visit History of present illness: Megan Loja Bj العلي is a 64 y.o. female via video visit with the followin). Pulmonary nodule: Noted on CT scan through [facility] 02/2020 with recommendations to repeat imaging however is in this area and so has not had repeat CT scan. Has history of melanoma. Will place orders for follow up scan. 2). HTN: On Lisinopril 5mg daily. Has been fairly well controlled. Is wondering if she needs to continue low dose or if she could stop taking. Discussed doing follow-up physical. She could try holding for 2-3 days prior and recheck blood pressure at clinic visit. Her home machine is not working so sheis planning on getting a new one. 3). Asthma/allergies: Currently on Symbicort 160/4.5mcg daily, Singulair 10mg daily and Flonase NS daily. This was started at beginning of year and has had much better control of her asthma/allergies. She has some flare-up of symptoms currently which is not uncommon for this time of the year however much better controlled then it typically would be. She needs referral for hair blender follow- up since moving to this area. Review of Systems: Constitutional: No fevers, chills, fatigue ENT: Positive for mild congestion. CHEST: No cough or breathing difficulty HEART: No chest pain, no edema. M/S: No back pain, joint pain or swelling, no muscle pain. NEURO: No headaches, dizziness, weakness SKIN: No rashes or itching, no worrisome skin lesions. PSYCH: No issues with anxiety or depression. Medications: Reviewed and reconciled in medical record at visit. Allergies: Reviewed and updated in medical record at visit. Objective: GEN: Alert, oriented, not acutely distressed.Does not appear acutely ill. ENT: No significant congestion noted. NECK: Normal ROM CHEST: Normal effort. No wheezing. ABD: No apparent discomfort SKIN: No noted rashes M/S: No noted joint swelling or redness. NEURO: CN 2-12 appear grossly intact. Moving all extremities PSYCH: Alert and oriented. Normal affect. Assessment/Plan: 1. Pulmonary nodule 2. Essential hypertension (HRC) 3. Moderate persistent asthma without complication 4. Allergic rhinitis, unspecified seasonality, unspecified trigger Plan: 1). Orders placed for chest CT to follow up pulmonary nodule. 2). Will continue Lisinopril 5mg daily for now for blood pressure. Would schedule well visit and candiscuss possibly trying off medication. 3). Referral for hair blender placed. Continue current regimen for now. 4). Follow up with acute worsening of symptoms or any other concerns. Orders Placed This Encounter ??? CT Chest WO IV Cont Lung Nodule ??? Allergy And Immunology Consult Adult/Peds ??? lisinopril (ZESTRIL) 5 MG tablet Clinician located at home. Patient located at home Billing based on: Complexity Jose Parada PA-C documented in this encounter Plan of Treatment Scheduled Referrals Name Type Priority Associated Diagnoses Order S chedule Allergy And Immunology Referral Routine Moderate persisten t Ordered: 10/07/2020 Consult Adult/Peds asthma without complication Allergic rhinitis, unspecified seasonality, unspecified trigger documented as of this encounter Results CT Chest WO IV [...] bilateral glenohumeral joints. Degenerative changes of the ghms-yhazgyt-yvdr-right sternoclavicular joints. IMPRESSION: 1. Small focus of [...] bilateral glenohumeral joints. Degenerative changes of the vuyn-kkumbvy-upii-right sternoclavicular joints. IMPRESSION: 1. Small focus of [...] Pulmonary nodule - Primary Solitary pulmonary nodule Essential hypertension (HRC) Unspecified essential hypertension Moderate persistent asthma without compl ication (HRC) Unspecified asthma Allergic rhinitis, unspecified seasonali ty, unspecified trigger Pulmonary nodule Solitary pulmonary nodule documented in this encounter Care Teams Director Distribution Relationship Specialty Start Date End Date Bj Pelletier MD PCP - General 05/19/[address] [facility], [address] documented as of this encounter
--- OUTSIDE RECORDS SUMMARY | 2021-12-03 11:43 | XMS_ITS | Encounter Summary ---
:1955 Author Organization [facility] Address [address] [place] [address] Care Team Providers Name Role Phone Bj Pelletier MD Primary Care Provider Unavailable Reason for Visit Procedure/Equipment (Routine) - Closed Specialty Diagnoses / Procedures Referred By Contact Refer red To Contact Diagnoses Right knee pain, unspecified chronicity Nick Cowan, DO [place] [address] [place] [address] Referral ID Status Reason Start Date Expiration Date Visits Requ ested Visits Authorized [id number] Closed 08/08/2020 11/07/2021 1 1 Encounter Details Date Type Department Care Team Description 08/12/2020 Ancillary [place] Nick Gates Right knee pain, Procedure [place] [address] J, DO unspecified [place] [address] chronicity [address] [place], [place] [address] [address] [place], [place] [phone] [address] (Work) [phone] Social History Tobacco Use Types Packs/Day Years [...] Priority Date/Time Associated Diagnosis Comme nts MR KNEE RT WO IV STAT 08/12/2020 7:46 PM Right knee pain, R esults for this CONT CDT unspecified procedure are i n chronicity the results section. documented in this encounter Results MR Knee Rt WO [...] Moderate joint effusion and popliteal cyst. Nick FRYE MRI documented in this encounter Visit Diagnoses Diagnosis Right knee pain, unspecified chronicity documented in this encounter Care Teams Medical Chemist Relationship Specialty Start Date End Date Bj Pelletier MD PCP - General 05/19/[address] [facility], [address] documented as of this encounter
--- OUTSIDE RECORDS SUMMARY | 2021-12-03 11:43 | XMS_ITS | Encounter Summary ---
:1955 Author Organization [facility] Address [address] [place] [address] Care Team Providers Name Role Phone Bj Pelletier MD Primary Care Provider Unavailable Reason for Visit Reason Comments Knee Problem Therapies (Routine) - Closed Specialty Diagnoses / Procedures Referred By Contact Refer red To Contact Diagnoses Closed fracture of lateral portion of right tibial plateau with routine healing Otis Crump MD [address] [place] [address] Referral ID Status Reason Start Date Expiration Date Visits Requ ested Visits Authorized [id number] Closed 08/27/2020 08/27/2021 1 1 Encounter Details Date Type Department Care Team Description 08/28/2020 Therapy [facility], Chevy Weber, Acute pain of right knee (Primary Dx); Physical Therapy PT Knee stiff, right [address] [facility] [address] [place] [address] [place] [address] [phone] (Wo rk) Social History Tobacco Use Types Packs/Day Years Used Date Smoking Tobacco: Never Smokeless Tobacco: Never Alcohol Use Standard Drinks/Week Comments Yes 4 (1 standard drink = 0.6 oz pure alcoho l) Sex Assigned at Date Recorded Female 10/03/2020 11:17 AM CDT documented as of this encounter Progress Notes Chevy Weber, PT - 08/28/2020 3:15 PM CDT Physical Therapy Knee Evaluation/Plan of Care Visit Number: Arabella calvo Initial Certification Period: 08/28/2020 to 10/27/20 Referring Provider: Otis Crump MD Diagnosis: Closed fracture of lateral portion of right tibial plateau, tricompartmental chondromalacia Orders: Evaluate & treat; Precautions/Contraindications: WBAT Date of Onset: 08/05/20 Standardized Functional Score: History: Method of Injury: Dog ran into her leg then she slipped Functional Limitations: Walking, stairs Patient???s Therapy Goals: Decrease knee pain,normal ROM/gait SUBJECTIVE: Found to have tibial fracture after MRI was performed at second clinic visit Was managed non weightbearing and told yesterday she should start PT Feels like walking is challenging in brace Has some discomfort when driving 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 Past Medical History: See EMR for details regarding past medical history, medications and drug allergies. History is unremarkable. Review of Systems: Denies fever, chills, night sweats, unrelenting night pain, unexplained weight loss, bowel/bladder changes, saddle sensation changes Past Medical History: Diagnosis Date ??? Cancer ([facility]) ??? PONV (postoperative nausea and vomiting) Past Surgical History: Procedure Laterality Date ??? ABDOMEN SURGERY hernia ??? HYSTERECTOMY ??? melanoma melanoma removal 2 weeks ago OBJECTIVE: General: Mood, orientation, behavior were appropriate. Patient was alert and oriented. Observation/Gait: With hinged brace, decrease TKE Edema: mild effusion ROM (mzdaljibj-[id number]): 0-7-70 Joint mobility: Not tested Flexibility: Gastroc/hamstring tightness Low Back/SI Screen: deferred Neurological Screen: no c/o dermatomal numbness or tingling Strength: Quad set fair, SLR with lag Palpation: Proximal tibial tenderness anteriorly, no focal joint line tenderness Special Tests (+ is a positive finding, - is a negative finding): deferred Proprioception: Single leg stance: NT today Functional Tests: Double leg squat: NT today TREATMENT TODAY: Physical Therapy Evaluation (CPT 08479): An evaluation was performed. The patient was determined to have low complexity based on history, examination, clinical presentation of the patient and the PT's clinical decision making. The patient was educated on the condition, planned therapy intervention and expectations from treatment. Goals were a collaborative effort of the therapist and patient. Therapeutic Exercise (CPT 73604) x 15 minutes: Passive flexion and extension stretching over table HEP: Access Code: [email or web address] URL: [email or web address]/ Date: 08/29/2020 Prepared by: Chevy Weber Program Notes use one crutch when walking hold in left hand Exercises Long Sitting Calf Stretch with Strap - 2 x daily - 3 reps - 30 hold (sec) Sitting Heel Slide with Towel - 2 x daily - 2 sets - 20 reps Seated Knee Flexion Stretch - 2 x daily - 20 reps - 2 sets Supine Quad Set - 1 x daily - 7 x weekly - 2 sets - 20 reps Gait Training (CPT 15753) x 10 minutes: We discussed the possibility of using a crutch to help normalize her ambulation She should focus on achieving TKE Keep walking to short distances until her quality improves Timed Code Treatment Minutes: 25 Total Treatment Minutes: 45 Medicare Unit Tracking: Plan for next treatment session: Progress ROM, gait normalization, LE strength as able Education/Handouts: Diagnosis Education, RICE principles Response to treatment: Good understanding of HEP ASSESSMENT: Therapist Impression: Megan العلي presents with right knee Barriers to Learning: none Rehab Prognosis: Good PLAN: Planned Intervention/Education: Evaluation, Education, Therapeutic Exercise, Manual Therapy, Neuromuscular Re-education, Self Care/Home Management, Gait Training, Therapeutic Activities, Ice, Vasopneumatic Compression, Blood Flow Restriction Therapy PT Frequency/Duration: 1 x/week for 8 weeks for a total of 8 visits Discharge Plan: Goal achievement, goal achievement with home exercise program or if progress plateaus. Informed Consent: Risks, benefits and alternatives to treatment have been explained. Patient and/or family in agreement with care plan. EXPECTED FUNCTIONAL OUTCOMES/GOALS: HEP/Independent Management: Demonstrate [...] and improvedlower extremity alignment in 6 weeks. Evaluation and Plan of Care completed by: Chevy Weber, PT 3:22 PM 08/28/2020 No plan of care certification necessary. documented in this encounter Plan of Treatment Scheduled Referrals Name Type Priority Associated Diagnoses Order S chedule Physical Therapy Referral Routine Closed fracture of later al Ordered: 08/27/2020 portion of right tibial plateau with routine healing documented as of this encounter Visit Diagnoses Diagnosis Acute pain of right knee - Primary Knee stiff, right documented in this encounter Care Teams Lead Applier Relationship Specialty Start Date End Date Bj Pelletier MD PCP - General 05/19/[address] [facility], [address] documented as of this encounter
--- OUTSIDE RECORDS SUMMARY | 2021-12-03 11:43 | XMS_ITS | Encounter Summary ---
:1955 Author Organization [facility] Address [address] [place] [address] Care Team Providers Name Role Phone Bj Pelletier MD Primary Care Provider Unavailable Reason for Visit Reason Comments SOB (SHORTNESS OF BREATH) Encounter Details Date Type Department Care Team Description 10/03/2020 Telephone [place] [id number] Family Needs Pcp, SOB ( SHORTNESS OF Medicine Assignment BREATH) [address] [place] [phone] Social History Tobacco Use Types Packs/Day Years Used Date Smoking Tobacco: Never Smokeless Tobacco: Never Alcohol Use Standard Drinks/Week Comments Yes 4 (1 standard drink = 0.6 oz pure alcoho l) Sex Assigned at Date Recorded Female 10/03/2020 11:17 AM CDT documented as of this encounter Nursing Notes Malinda Wise RN - 10/03/2020 8:34 AM CDT Spoke with pt, who is calling to schedule a visit to follow-up on chronic pulmonary insufficiency, previously worked up at [place]. Needing follow-up CT. Assisted in scheduling appt. documented in this encounter Plan of Treatment Not on filedocumented as of this encounter Visit Diagnoses Not on filedocumented in this encounter Care Teams Campus Rep Relationship Specialty Start Date End Date Bj Pelletier MD PCP - General 05/19/[address] [facility], [address] documented as of this encounter
--- OUTSIDE RECORDS SUMMARY | 2021-12-03 11:43 | XMS_ITS | Encounter Summary ---
:1955 Author Organization [facility] Address [address] [place] [address] Care Team Providers Name Role Phone Bj Pelletier MD Primary Care Provider Unavailable Reason for Visit Reason Comments Prior Authorization For Imaging Encounter Details Date Type Department Care Team Description 08/09/2020 Telephone [facility] Nick Cowan, Prior Authorization For Orthopedic Urgent DO Imaging Care [address] [facility] [address] [place] [id number] [phone] Social History Tobacco Use Types Packs/Day Years Used Date Smoking Tobacco: Never Smokeless Tobacco: Never Alcohol Use Standard Drinks/Week Comments Yes 4 (1 standard drink = 0.6 oz pure alcoho l) Sex Assigned at Date Recorded Female 10/03/2020 11:17 AM CDT documented as of this encounter Nursing Notes Ara Arreola RN - 08/13/2020 10:09 AM CDT MRI complete. Naila Barahona RN - 08/09/2020 3:10 PM CDT Marketing Liaison sent a PA STAT request and will call patient upon hearing back. Pattie Neves - 08/09/2020 2:45 PM CDT Has the patient recently had surgery or an injury? Yes. Date of Injury: July 28, 2020 Type of Injury: R leg How may we help you today? Pt is calling to check the status of the PA for her MRI. Describe your symptoms/concerns: Pt states that she talked to her ins company today and they have not gotten a request yet for the PA. Please call pt with an update, [facility] told her they will keep lookingfor the PA and get it approved for her. When did the issue start: 07/28/20 Have you been seen for this recently?: Yesterday Dr Cowan [Supervisor [employer] [facility]: If yes, please include date and provider.] Is it okay to leave detailed message on your voicemail? Yes [Supervisor [employer] [facility]: If this call is after 3 p.m., communicate to patient: If we are not able to get back to you by the end of the day and your symptoms worsen please contact the Careline] documented in this encounter Plan of Treatment Not on filedocumented as of this encounter Visit Diagnoses Not on filedocumented in this encounter Care Teams Cardiac Exercise Specialist Relationship Specialty Start Date End Date Bj Pelletier MD PCP - General 05/19/[address] [facility], [address] documented as of this encounter
--- OUTSIDE RECORDS SUMMARY | 2021-12-03 11:44 | XMS_ITS | Encounter Summary ---
:1955 Author [facility] Address [address] [place] [address] Care Team Providers Name Role Phone Bj Pelletier MD Primary Care Provider Unavailable Reason for Referral (Routine) - Closed Specialty Diagnoses / Procedures Referred By Contact Refer red To Contact Diagnoses Tenosynovitis, de Quervain Lili Nunez MD Procedures Dexamethasone Sodium Phos (per 1 mg) [address] [facility] [place] [address] Referral ID Status Reason Start Date Expiration Date Visits Requ ested Visits Authorized [id number] Closed 12/02/2017 03/03/2019 1 1 Reason for Visit Reason Comments Hand Problem L wrist pain Encounter Details Date Type Department Care Team Description 11/30/2017 Office Visit [facility] Lili Nunez Tenosviviane noverik, Ann (Primary Dx); CENTER Arthritis of wrist, left [address] [facility] [address] [facility] [place] [address] [place] [phone] (Wo rk) Social History Tobacco Use Types Packs/Day Years Used Date Smoking Tobacco: Never Smokeless Tobacco: Never Alcohol Use Standard Drinks/Week Comments Yes 0 (1 standard drink = 0.6 oz pure alcoho l) 2-3 glasses of wine per week Sex Assigned at Date Recorded Female 10/03/2020 11:17 AM CDT documented as of this encounter Patient Instructions Patient InstructionsRosa Jean Baptiste R - 11/30/2017 1:[address] Lili Nunez MD Hand & Upper Extremity Surgeon Planning Consultant: Antonia Carrera Please call Antonia for all surgery scheduling and administrative questions at [phone] Hand Nurse: Manny Torre Please contact Manny for all medical related questions at [phone] Medication Requests: Prescriptions are not filled on Weekends or on Weekdays after 3:00PM For all medication refills: Request a refill using [facility] or contact your Pharmacy The left wrist was injected with dexamethasone and lidocaine. Avoid Strenuous Activity for the remainder of the day and avoid activities that cause pain for one to two weeks following the injection. Signs and Symptoms to watch for: If you have any redness, warmth or increasing pain at the site of the injection or develop a fever, please call [phone] You've just had a steroid (cortisone) injection: Steroid injections are among the most frequently used treatments in orthopedics. Steroid injections are used for a wide range of conditions from arthritis, to bursitis, to tennis elbow, etc. The two most common side-effects of steroid shots called ???steroid flare??? and ???steroid flush. Steroid flare can cause an increase in symptoms in the first 24-48 hours after a steroid injection. This will usually subside within a few days, and is a cause from the additional fluid in your joint, and the trauma to the joint lining from the injection. This pain usually subsides quickly and can be aided with an ice pack and over the counter anti-inflammatory medication. Steroid flush is a flushing sensation and redness of their face. This reaction is more common in women, but can occur in men as well, and is seen into up to 15 percent of patients. This can begin within a few hours of the injection and may last for a few days. It is not dangerous, and will resolve itself. Diabetic patients also can have their blood sugar levels affected. Patients with diabetes should carefully monitor their blood sugar as steroid can cause a temporary rise in their levels. Patients taking insulin should be especially careful, checking their blood sugar often and adjusting the insulin doses, if necessary. Steroid injections can only be repeated every 3 or 4 months. For some conditions there may also be alimited total number of times it is safe to repeat an injection. RISKS: Infection ?? Whenever there is a break in the skin, like when a needle is used to administer steroid, there sharon chance of infection this is very unlikely to happen, usually would occur days after the injection.Signs and symptoms to watch for: fever, streaking redness, pus, drainage, foul odor, localized redness that continues to get worse, come to the office if symptoms are recognized during business hours, or proceed to the emergency room if symptoms are recognized after office hours. Skin Pigment Changes ?? Patients should also be aware that steroid may cause skin around the injection site to lighten. This is not harmful or long lasting. Loss of Fatty Tissue ?? This is one reason we limit the number of steroid injections administered. High doses of steroid can have detrimental effects on some tissues in the body, though due to the dosage we use the risk isextremely rare. When injected into fatty tissue, steroid can lead to a problem called fat atrophy. Fat atrophy causes loss of fatty tissue, which can lead to dimpling of the skin or the thinning out offat. Skin will feel thin. Patients who get steroid injections in the heel to treat plantar fasciitismay find walking painful as fat that usually cushions their steps may thin out. Tendon Rupture ?? Steroid can also cause weakening of tendons. This is one reason to limit the number of steroid injections administered. documented in this encounter Progress Notes Lili Nunez MD - 11/30/2017 1:50 PM CDT [facility] [place] Follow-Up 11/30/2017 Chief Complaint: Left hand pain History of Present Illness: Megan العلي is a 62 y.o. female who presents for follow-up of left hand pain after fallingand injuring the wrist. I last evaluated the patient on (11/10/17), at which time she reported excruciating pain exacerbated by turning her wrist or reaching to oyster picker objects. At that time, recommended she undergo a De Quervain's cortisone injection to the first dorsal compartment of her left wrist. Today, the patient states this injection improved symptoms only temporarily and so returns here for reevaluation. She also reports a bump over the lateral aspect of the left wrist which seems to shift around when she ranges her wrist. Physical Exam: General: A pleasant female of stated age, no acute distress.?? Skin: Intact.?? Neurovascular: Sensation is intact to light touch. There is brisk capillary refill in the digit.?? Left Hand/Wrist: Pain over the first dorsal compartment. Palpable swelling over the first dorsal compartment. STT joint not tender with no significant swelling. Quinn's causes pain. Assessment: Diagnosis and Associated Orders ICD-10-CM 1. Tenosynovitis, de Quervain M65.4 Injection; 1 Tendon Sheath/Ligament Dexamethasone Sodium Phos (per 1 mg) 2. 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 Procedures: Left De Quervain's Injection: Patient was warned prior to the injection that fatty atrophy or discoloration may occur after the injection. After sterile preparation, 1mL of 1% lidocaine plus 4 mg of dexamethasone was injected in the??first dorsal compartment of the left wrist. Patient tolerated the procedure well. Scribe Disclosure: I, Rafiq Tenorio, am serving as a scribe to document services personally performed by Lili Nunez MD at this visit, based upon the provider's statements to me. All documentation has been reviewed by the aforementioned provider prior to being entered into the official medical record. Portions of this medical record were completed by a scribe. UPON MY REVIEW AND AUTHENTICATION BY ELECTRONIC SIGNATURE, this confirms (a) I performed the applicable clinical services, and (b) the recordis accurate. Lili Nunez MD documented in this encounter Plan of Treatment Not on filedocumented as of this encounter Visit Diagnoses Diagnosis Tenosynovitis, de Quervain - Primary Radial styloid tenosynovitis Arthritis of wrist, left Unspecified arthropathy, forearm documented in this encounter Care Teams Cooper Apprentice Relationship Specialty Start Date End Date Bj Pelletier MD PCP - General 05/19/[address] [facility], [address] documented as of this encounter
--- OUTSIDE RECORDS SUMMARY | 2021-12-03 11:44 | XMS_ITS | Encounter Summary ---
:1955 Author [facility] Address [address] [place] [address] Care Team Providers Name Role Phone Bj Pelletier MD Primary Care Provider Unavailable Reason for Visit Procedure/Equipment (Routine) - Incomplete Specialty Diagnoses / Procedures Referred By Contact Refer red To Contact Diagnoses Right shoulder pain, unspecified chronicity Luis Alberto Goodman MD Procedures XR Shoulder Rt 2+ Views [address] [facility] [place], [place] [address] Referral ID Status Reason Start Date Expiration Date Visits V isits Requested Authorized [id number] Incomplete 01/31/2019 05/01/2020 1 1 Encounter Details Date Type Department Care Team Description 01/31/2019 Ancillary [facility] Luis Alberto Goodman, Right shoulder Procedure [address] pain, unspecified Drive [address] [facility] [place] [address] [phone] Social History Tobacco Use Types Packs/Day Years [...] Priority Date/Time Associated Diagnosis Comme nts XR SHOULDER RT 2+ Routine 01/31/2019 3:09 PM Right shoulder pa in, Results for this VIEWS BACKUP OPERATOR unspecified procedure are i n chronicity the results section. documented in this encounter Results XR Shoulder Rt 2+ Views (01/31/2019 3:09 PM BACKUP OPERATOR) Anatomical Region Laterality Modality Upper Extremity, Shoulder Digital Radiog archana Specimen (Source) Anatomical Location Collection Method / Collectio n Time Received Time / Laterality Volume Narrative 02/06/2019 12:02 PM BACKUP OPERATOR Radiographs of the right shoulder - 2+ views (01/31/19): Two plus views of the right shoulder; Gl enohumeral, AP axillary lateral and scapular Y view show end stage gleno humeral osteoarthritis. No migration of the humeral head. No acute fractures or dislocations. Luis Alberto Goodman MD RAD GD documented in this encounter Visit Diagnoses Diagnosis Right shoulder pain, unspecified chronic ity documented in this encounter Care Teams Trap Operator Relationship Specialty Start Date End Date Bj Pelletier MD PCP - General 05/19/[address] [facility], [address] documented as of this encounter
--- OUTSIDE RECORDS SUMMARY | 2021-12-03 11:44 | XMS_ITS | Encounter Summary ---
:1955 [facility] Address [address], [place] [address] Care Team Providers Name Role Phone Bj Pelletier MD Primary Care Provider Unavailable Reason for Visit Reason Comments Hand Therapy Therapies (Routine) - Closed Specialty Diagnoses / Procedures Referred By Contact Refer red To Contact Diagnoses Left wrist pain Primary osteoarthritis of left wrist Left wrist injury, subsequent encounter De Quervain's disease (radial styloid tenosynovitis) Rowdy Brand MD [address] [facility] [place] [address] Referral ID Status Reason Start Date Expiration Date Visits Requ ested Visits Authorized [id number] Closed 10/22/2017 12/21/2017 1 1 Encounter Details Date Type Department Care Team Description 10/29/2017 Initial Consult [facility] Dannielle [place], Radial styloid tenosynovitis (Primary Dx); [address] [facility] OTR/L Primary osteoarthritis of hand, unspecif ied laterality Drive [address] [facility] [address] [place] [address] [phone] Social History Tobacco Use Types Packs/Day Years Used Date Smoking Tobacco: Never Smokeless Tobacco: Never Alcohol Use Standard Drinks/Week Comments Yes 0 (1 standard drink = 0.6 oz pure alcoho l) 2-3 glasses of wine per week Sex Assigned at Date Recorded Female 10/03/2020 11:17 AM CDT documented as of this encounter Progress Notes Dannielle Colorado, OTR/L - 10/29/2017 11:30 AM CDT Hand Occupational Therapy Evaluation/Plan of Care Initial Certification Period: 10/29/2017 -01/27/18 Date of : 1955 Referring Provider: Rowdy Brand Diagnosis: Left DeQuervain???s Tenosynovitis and Triscaphe Osteoarthritis. Orders: Evaluate and treat. Date of Onset: 09/28/2017 Cause: Chronic Hand Dominance: Left PMH/Precautions: Refer to EMR for past medical history, medications, and drug allergies. Pt has beenseen 04/2015 for right distal radius fracture and has a past medical history of Cancer (HRC) and PONV(postoperative nausea and vomiting). 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 Functional Goals: ?? The patient will implement techniques for self-management of pain and edema as instructed at today's treatment session. ?? The patient will implement splint/orthotic use as instructed at today's treatment session. ?? The patient will be able to manage self care ADLs within the restrictions of the splint with minimal to no difficulty or pain in 0-2 weeks. ?? The patient will be able to initiate return to normal use with minimal to no difficulty or pain in 8 weeks. SUBJECTIVE: Pt reports my right shoulder is bad, but I've been using it to compensate for my left hand. Pt is receiving injection today 10/29/2017. Pt was previously given a prefabricated thumb spica splint, but reports I cannot tolerate it at all; it hurts so bad. Pt reports I have trouble writing, typing, walking my dog, throwing a ball, and cooking. Patient would like a custom splint today. OBJECTIVE: Pain: Patient rates resting pain 1/10. Patient rates pain with activity 8/10. Edema: Mild swelling observed over the radial wrist. Circumferential measurements in cm: Right Left Wrist Crease 14.5 cm 15.7 AROM: AROM WNL bilaterally, pain with any amount of ulnar deviation. Sensation: Patient reports their sensation is intact with heightened sensitivity along 1st dorsal compartment, while rubbing along dorsal radial sensory nerve distribution. Special Tests: Left Quinn's test ++ Palpation to 1st dorsal compartment ++ Resisted APL + Resisted EPB + Tinel's at sensory radial nerve + Grind test + Left Grind test + Shoulder sign + MCP joint hyperextension + Adduction contracture - Trapezium glide + Retropulsion + TREATMENT INTERVENTION: OT Evaluation CPT 29024 (20 minutes untimed) A Moderate Complexity Occupational Therapy Evaluation was completed. Occupational profile/history: expanded review of records and medical history. Assessment: 3-5 performance deficits. Clinical decision making: consideration of several treatment options and patient may have co-morbidities. The patient was educated on the condition, planned therapy intervention, and expectations from treatment. Goals were a collaborative effort between the patient and therapist. Risks, benefits, and alternatives to treatment were explained. Patient or guardian in agreement with care plan. Issued and reviewed written handouts for DeQuervain's and CMC Joint Protection. Therapeutic Exercise CPT 64559 (5 minutes) Exercise: Issued handout, instructed in and performed pain-free thumb and wrist AROM. The patient was instructed to perform the exercises 3-4x/day, 10 repetitions of each exercise. Self-Care / Home Management Training CPT 17876 (15 minutes) Activity modification: Patient was instructed in, performed, and provided with written handout for activity modification to minimize pain and promote healing. Discussed activity modification of donningseatbelt, typing, holding/gripping objects. Education: Issued handout, instructed and reviewed pain management techniques including use of heat and/or cold. Also instructed in cross-friction mobilization over the 1st dorsal compartment when out of splint. The patient was instructed to perform self mobilization 3-4x/day, for 3-5 minute sessions to reduce pain to promote participation in daily activities. Application of Short Arm Splint/Orthosis, Static CPT 16276 (20 minutes untimed) Pt provided with new, custom forearm-based thumb spica splint due to pain with prefabricated splint.A custom thermoplastic forearm-based thumb spica splint/orthosis with IP free was fabricated for thepatient. The patient was provided with written instructions on splint/orthosis care. Patient was inst ructed to wear the splint as needed for comfort and symptom relief- suggest increased wear for 2 weeks after injection. Patient can don and doff splint/orthosis independently. Pt was provided with thick stockinette splint liners. Timed Code Treatment Minutes: 20 Total Treatment Minutes: 60 ASSESSMENT: Symptoms are consistent with referring diagnosis. Functional limitations are due to: decreased ROM, decreased strength, and pain. Rehab prognosis is good to achieve stated goals. Mood, orientation, and behavior were appropriate. Patient was alert and oriented. No apparent barriers to learning observed. Pt very painful at first dorsal compartment and at base of 1st MC. PLAN: Patient will have injection later today. The patient will return for additional therapy. Discharge is planned as functional outcomes are achieved, progress has reached a plateau or adequate progress is made such that the patient is able to self-manage with their home program. Patient was provided with the clinic number and instructed to callwith any questions or concerns. Next Treatment Session: Check splint/orthosis fit. Initiate dynamic stabilization exercises for OA. Potentially initiate ultrasound and soft tissue mobilization for DeQuervain's. Continue to assess symptoms. Visit frequency/duration: Pt will return in about 2 weeks to check progress after injection. Determine need/frequency of continued therapy at next appointment. Treatment Plan: Splint/orthosis, AROM, AAROM, PROM, strengthening, edema control, modalities, manualtherapy, patient education and training. Therapist Signature: BRUNO Christie #[id number] Visit #1 Payor: [employer] / Plan: [employer] SELF INSURED / Product Type: Commercial / I have reviewed the clinical presentation and progress notes with the occupational therapist. I agree with the treatment plan as outlined. The plan was formulated with the occupational therapist on theday of the documentation and personally edited by me where appropriate. BRUNO Yu, [facility] #[id number] Dannielle [place] OTR/[facility] - 10/29/2017 11:30 AM CDT Hand Therapy Splint Note Pt returned to therapy with concerns for her splint (forearm-based thumb spica with IP free) rubbingat her first dorsal compartment. First dorsal compartment was adjusted with pt reporting satisfaction with the change. To note, pt had just received an injection, so was numb at the area that was previously bothersome. Therapist asked to the pt to observe the affected area to see if skin turns red from any rubbing and to return with any other concerns. Total Treatment Time: 5 minutes Therapist Signature: HASMUKH ChristieR/[facility] #[id number] Charges: See previous note from scheduled visit today. No charge for adjustment. I have reviewed the clinical presentation and progress notes with the occupational therapist. I agree with the treatment plan as outlined. The plan was formulated with the occupational therapist on theday of the documentation and personally edited by me where appropriate. NIRAJ Yu/[facility], T #[id number] documented in this encounter Plan of Treatment Scheduled Referrals Name Type Priority Associated Diagnoses Order S [facility] Hand Therapy Consult Referral Routine Left wrist pain Ordered: 10/22/2017 Primary osteoarthritis of left wrist Left wrist injury, subsequent encou nter De Quervain's disease (radial styloid tenosynovitis) documented as of this encounter Visit Diagnoses Diagnosis Radial styloid tenosynovitis - Primary Primary osteoarthritis of hand, unspecif ied laterality documented in this encounter Care Teams Building Equipment Inspector Relationship Specialty Start Date End Date Bj Pelletier MD PCP - General 05/19/[address] [facility], [address] documented as of this encounter
--- OUTSIDE RECORDS SUMMARY | 2021-12-03 11:44 | XMS_ITS | Encounter Summary ---
:1955 Author Organization [facility] Address [address] [address] Care Team Providers Name Role Phone Bj Pelletier MD Primary Care Provider Unavailable Reason for Visit Procedure/Equipment (Routine) - Incomplete Specialty Diagnoses / Procedures Referred By Contact Refer red To Contact Procedures Provider, Foreign Images Foreign Image(S) Mammogram [address] [place] [address] Referral ID Status Reason Start Date Expiration Date Visits V isits Requested Authorized [id number] Incomplete 06/17/2021 09/16/2022 1 1 Encounter Details Date Type Department Care Team Description 09/08/2018 Ancillary Procedure [facility] PACS Provider, [address] [address] [address] [place] [address] Social History Tobacco Use Types Packs/Day Years [...] Associated Diagnosis Comme nts FOREIGN IMAGE(S) Routine 09/08/2018 2:00 PM Resul ts for this MAMMOGRAM CDT procedure are i n the results section. documented in this encounter Results Foreign Image(S) Mammogram (09/08/2018 2:00 PM CDT) Specimen (Source) Anatomical Location Collection Method [...] on filedocumented in this encounter Care Teams Asphalt Paving Supervisor Relationship Specialty Start Date End Date Bj Pelletier MD PCP - General 05/19/[address] [facility], [address] documented as of this encounter
--- OUTSIDE RECORDS SUMMARY | 2021-12-03 11:44 | XMS_ITS | Encounter Summary ---
:1955 Author Organization [facility] Address [address], [place] [address] Care Team Providers Name Role Phone Bj Pelletier MD Primary Care Provider Unavailable Reason for Visit Procedure/Equipment (Routine) - Incomplete Specialty Diagnoses / Procedures Referred By Contact Refer red To Contact Procedures Provider, Foreign Images Foreign Image(S) Mammogram [address] [place] [address] Referral ID Status Reason Start Date Expiration Date Visits V isits Requested Authorized [id number] Incomplete 06/17/2021 09/16/2022 1 1 Encounter Details Date Type Department Care Team Description 03/05/2017 Ancillary Procedure [facility] PACS Provider, [place] [address] [address] [place] [address] Social History Tobacco Use Types Packs/Day Years [...] Associated Diagnosis Comme nts FOREIGN IMAGE(S) Routine 03/05/2017 2:00 PM Resul ts for this MAMMOGRAM CERTIFIED DENTAL ASSISTANT procedure are i n the results section. documented in this encounter Results Foreign Image(S) Mammogram (03/05/2017 2:00 PM CERTIFIED DENTAL ASSISTANT) Specimen (Source) Anatomical Location Collection Method / Collectio n Time Received Time / Laterality Volume Narrative POCT - 06/17/2021 10:31 AM CDT These outside images have been uploaded into PACS. If the results were provided, they will be located in the pa alesha's chart under the Media or Imaging tab. Foreign Images Provider RAD NON-REPORTABLES Performing Organization Address City/State/ZIP Code Phon e Number POCT documented in this encounter Visit Diagnoses Not on filedocumented in this encounter Care Teams Nurse Practitioner Hospitalist Relationship Specialty Start Date End Date Bj Pelletier MD PCP - General 05/19/[address] [facility], [address] documented as of this encounter
--- OUTSIDE RECORDS SUMMARY | 2021-12-03 11:44 | XMS_ITS | Encounter Summary ---
:1955 [facility] Address [address] [place] [address] Care Team Providers Name Role Phone Bj Pelletier MD Primary Care Provider Unavailable Reason for Referral Procedure/Equipment (Routine) - Incomplete Specialty Diagnoses / Procedures Referred By Contact Refer red To Contact Diagnoses Injury of left wrist, initial encounter Rowdy Brand MD Procedures Wrist brace with thumb ([id number]) [address] [facility] [address] [place] [address] Referral ID Status Reason Start Date Expiration Date Visits V isits Requested Authorized [id number] Incomplete 05/09/2017 08/08/2018 1 1 Procedure/Equipment (Routine) - Incomplete Specialty Diagnoses / Procedures Referred By Contact Refer red To Contact Diagnoses Right shoulder pain, unspecified chronicity Rowdy Brand MD Procedures XR Shoulder Rt 2+ Views [address] [place] [address] Referral ID Status Reason Start Date Expiration Date Visits V isits Requested Authorized [id number] Incomplete 05/08/2017 08/07/2018 1 1 Procedure/Equipment (Routine) - Incomplete Specialty Diagnoses / Procedures Referred By Contact Refer red To Contact Diagnoses Injury of left wrist, initial encounter Rowdy Brand MD Procedures XR Wrist Lt 3+ Views [address] [place] [address] Referral ID Status Reason Start Date Expiration Date Visits V isits Requested Authorized [id number] Incomplete 05/08/2017 08/07/2018 1 1 Reason for Visit Reason Comments INJURY, SHOULDER Right/ Onset July 2016/ No f ilms Wrist/forearm Pain or Injury Left / DOI: 05/07/2017/ No films Encounter Details Date Type Department Care Team Description 05/08/2017 Office Visit [facility] Rowdy Brand, Injury of left wrist, initial encounter (Primary Dx); Urgent Care MD Right shoulder pain, unspecified chronic ity [address] [facility] [address] [facility] [place] [address] [place] [phone] (Wo rk) Social History Tobacco Use Types [...] - - Temperature 36.7 ??C (98 ??F) 05/08/2017 1:13 PM CDT Respiratory Rate - - Oxygen Saturation - - Inhaled Oxygen Concentration - - Weight 60.8 kg (134 lb) 05/08/2017 1:13 PM CDT Height - - Body Mass Index 23.59 05/25/2016 3:12 PM CDT documented in this encounter Patient Instructions Patient InstructionsTiny Emery C - 05/08/2017 1:[address] Rowdy Brand MD Sports & Orthopaedic Medicine [facility] Medication Requests: Prescriptions are not filled on Weekends or on Weekdays after 3:00PM For all medication refills: Request a refill using MyChart or contact your Pharmacy Acute [facility] Nurse Line: Please contact Acute Injury Clinic Nurse line for all medical requests and questions at [phone] MRI Scheduling: To schedule an MRI at [facility] please call [phone] Paperwork Requests: Questions regarding FMLA or disability paperwork please call [phone] Phone lines are answered 8AM to 5PM Wednesday - Wednesday Workers??? Compensation: Please contact our department for any Work Comp concerns at Email: [email or web address] Left wrist sprain Wrist brace given in clinic If not improving in 2 weeks, return to clinic for reevaluation Right shoulder arthritis Home education/exercises given in clinic Call to arrange fluro guided cortisone injection if not improving documented in this encounter Progress Notes Rowdy Brand MD - 05/08/2017 2:15 PM CDT NAME: MEGAN AYON MR#: [id number] CSN: [id number] AUTHENTICATING CLINICIAN: Rowdy Brand MD CONFIRM #: [id number] LOC: 711 CLINIC PROGRESS NOTE DATE OF VISIT: 05/08/2017 : 1955 CHIEF COMPLAINT: Left wrist injury and right shoulder pain. HPI: This is a 61-year-old left-hand dominant female who presents mainly for her left wrist, which she fell and injured yesterday and has had pain and stiffness. She has had chronic pain in her right shoulder since this past summer. Since she is here for her wrist, she would like her right shoulder evaluated as well. REVIEW OF SYSTEMS: No fevers, chills, numbness or tingling. No joint pain or swelling in other joints. CURRENT MEDICATIONS: Reviewed on the EMR. ALLERGIES: Reviewed on the EMR. PAST MEDICAL HISTORY: Asthma, right hip melanoma, right wrist fracture, femoral hernia x2, right knee DJD. PAST SURGICAL HISTORY: Hysterectomy, wrist ORIF, femoral hernia repair x2, ureteral stenting. 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 Walks and jogs for exercise. Denies tobacco. PHYSICAL EXAM: VITAL SIGNS: Temperature is 98.0. Height 5 feet 5 inches, weight 134.1 pounds. Pain 1/10 to 4/10. GENERAL: She is alert, pleasant, in no acute distress. MUSCULOSKELETAL: On inspection of her left wrist, there is mild soft tissue swelling dorsally over the distal radius and ulna. She has tenderness over this area. Range of motion is limited secondary to the pain. There is no bony tenderness over the anatomic snuffbox. She has strong symmetric distal pulses with normal sensation and capillary refill throughout her digits. On inspection of her right shoulder, no overlying skin changes. She has pain with forward flexion, lateral abduction, internal rotation and cross-body adduction. Impingement signs are positive. She has preserved upper extremity strength and sensation. IMAGING STUDIES: X-rays, 3 views of the left wrist independently reviewed. Indication: Pain. Results: Degenerative changes of the triscaphe joint. No clear cortical defects. No sign of subluxation or dislocation. X-rays, 4 views of the right shoulder independently reviewed. Indication: Pain. Results: Degenerative changes at the glenohumeral compartment with narrowing and osteophytosis inferiorly. No acute cortical defects or calcification. ASSESSMENT: 1.Left wrist contusion and sprain with underlying triscaphe osteoarthritis with no clear evidence for fracture on today's x-rays. 2.Right shoulder impingement with glenohumeral osteoarthritis. PLAN: I reviewed the x-ray findings and diagnosis with the patient. I suggested a thumb spica brace for her left wrist. She will ice and elevate the area and continue with symptomatic management. If she has persistent pain and swelling despite the brace over the next 2 weeks, I would like to see her back for recheck and re-x-ray, lateral and scaphoid views, to check for an occult fracture. Regarding her right shoulder, I gave her a patient education handout with home treatment. She can call to arrange a fluoroscopically-guided intraarticular glenohumeral cortisone injection in Interventional Radiology if her symptoms persist or worsen. SDW:TERRY C: R:05/08/17 14:24 CONFIRM#:[id number] documented in this encounter Plan of Treatment Not on filedocumented as of this encounter Results XR Shoulder Rt 2+ Views (05/08/2017 1:42 PM CDT) Anatomical Region Laterality Modality Upper Extremity, Shoulder Digital Radiog archana Specimen (Source) Anatomical Location Collection Method / Collectio n Time Received Time / Laterality Volume Narrative 05/10/2017 1:56 PM CDT Four views of the right shoulder. Indication: ??Pain. ?? Results: ??Degenerative changes at the g lenohumeral compartment with narrowing and osteophytosis inferiorly. ??No acute cortical defects or calcification. Rowdy Brand MD RAD GD XR Wrist Lt 3+ Views (05/08/2017 1:42 PM CDT) Anatomical Region Laterality Modality Upper Extremity, Wrist Digital Radiograp hy Specimen (Source) Anatomical Location Collection Method / Collectio n Time Received Time / Laterality Volume Narrative 05/10/2017 1:56 PM CDT Three views of the left wrist. Indication: ??Pain. ?? Results: ??Degenerative changes of the t riscaphe joint. ??No clear cortical defects. No sign of subluxation or dislo cation. Rowdy Brand MD RAD GD documented in this encounter Visit Diagnoses Diagnosis Injury of left wrist, initial encounter - Primary Right shoulder pain, unspecified chronic ity Injury of left wrist, initial encounter Right shoulder pain, unspecified chronic ity documented in this encounter Care Teams Pipe Puller Relationship Specialty Start Date End Date Bj Pelletier MD PCP - General 05/19/[address] [facility], [address] documented as of this encounter
--- OUTSIDE RECORDS SUMMARY | 2021-12-03 11:44 | XMS_ITS | Encounter Summary ---
:1955 Author Organization [facility] Address [address] [place] [address] Care Team Providers Name Role Phone Bj Pelletier MD Primary Care Provider Unavailable Reason for Visit Reason Comments Physical Therapy Encounter Details Date Type Department Care Team Description 07/14/2016 Office Visit [facility] Joyce Otero, Chroni c pain of right knee (Primary Dx); Center, Physical PT Muscle weakness Therapy [address] [facility] [address] [facility]. [place], [place] [address]. [address] [place], [place] [address] [phone] Social History Tobacco Use Types Packs/Day Years Used Date Smoking Tobacco: Never Smokeless Tobacco: Never Alcohol Use Standard Drinks/Week Comments Yes 0 (1 standard drink = 0.6 oz pure alcoho l) 2-3 glasses of wine per week Sex Assigned at Date Recorded Female 10/03/2020 11:17 AM CDT documented as of this encounter Progress Notes Joyce Otero, PT - 07/14/2016 2:30 PM CDT [facility] Orthopaedic Boss Physical Therapy Daily Note Visit Number: 4 [place] Initial Certification Period: 05/26/2016 to 08/24/16 Referring Provider: Noel Live MD Diagnosis: ?? Right knee patellofemoral DJD Orders: Evaluate & treat Precautions/Contraindications: none Date of Onset: July 2015 Standardized Functional Score: Knee Outcome Survey: 53/70 = 76%; Sport Activity Scale: 40/55 = 73% (lower scores represent greater disability) History: 5 and 11 years ago: had R femoral hernia repaired (feels it from lifting luggage at airport). 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 Broke the skin on her knee. Also fractured a couple of bones in hand. Then fell this past winter. Did discuss having injection, butdecided PT Functional Limitations: R knee swelling with walking. Knee pain on stairs. Denies numbness/tingling or buckling. Pain kneeling. Sometimes catches and is fine. Knee does crunch. No longer doing seated knee extension. Patient???s Therapy Goals: Walking (3 miles a day and walk with clients at work). Boxing. 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 Is taping daily. Still has swelling R knee, especially at end of the day and when active. Is icing, but not enough, she states. OBJECTIVE: Today???s Findings: Observation/Gait: WNL. States she feels tight R posterior knee Edema: Mild R knee. + Ames test R knee ROM ([id number]): R: 0-0-150 L: 0-0-152 Joint mobility: Patellar: 1 quadrant medial and lateral. Catch felt on R Not tested today: Flexibility: Mild tightness R IT band Palpation: Tender R lateral PF border and distal IT band Special Tests (+ is a positive finding, - is a negative finding): Patellafemoral Tests: Moving patellar apprehension test: - Patellar tracking: lateral with quad set. OKC: crepitus R>L Functional Tests: Double leg squat: anterior loading, 2/10 pain R lateral PF border TREATMENT TODAY: Therapeutic Exercise (CPT 93895) x 25 minutes: Pt instructed in, demonstrated, and provided handouts for the following exercises to be performed asHEP: Educated in diagnosis with use of knee model and importance of HEP today. Access Code: [email or web address] Supine Bridge with Gluteal Set and Spinal Articulation - 10 reps - 3 sets - 10 hold - 1x daily (progressed to marching or weight shifting if cramping hamstrings) Sidelying Hip Abduction - 10 reps - 3 sets - 5 hold - 1x daily (also did standing, as she feels she can do this more often) - can add band if too easy the stick to quads and IT band Hamstring stretch with belt - pt has not been performing, as she forgot about this one Does have band at home Added: Side stepping with band around ankles Neuromuscular re-education (CPT 17359) 5 mins, no charge. reviewed - pt had it taped (cues to tape slightly higher on patella - top of tape to hit top of patella) Valentina taping: Cover roll and then Leukotape applied for lateral to medial glide B. Instructed in self taping and provided handout. Instructed to take tape off if irritation should occur. Instructed to tape daily, and remove nightly to decrease risk for skin irritation. Timed Code Treatment Minutes: 30 Total Treatment Minutes: 30 ASSESSMENT: Pt is improving overall. Doing well with HEP and able to progress strengthening today. Tolerated session well, denying knee pain. Will follow up in 2 weeks. PLAN: Plan for next treatment session: Review HEP - progress glut strengthening. Review taping. Planned Intervention/Education: Education, Therapeutic Exercise, Manual Therapy, Neuromuscular Re-education, Self Care/Home Management, Gait Training, Therapeutic Activities, Ice, Vasopneumatic Compression, Iontophoresis with Dexamethasone EXPECTED FUNCTIONAL OUTCOMES/GOALS: HEP/Independent Management: Demonstrate independence with HEP and self- management following each treatment session. ongoing ADL's: Squat to cigar packer and picker items from floor with minimal/no symptoms in 6 weeks. pain Ambulation: Ambulate unlimited distances with minimal to no symptoms/limp in 6-8 weeks. Pain, but hasn't tested lately (taping helps) Ascend/descend stairs independently with reciprocal pattern with minimal to no symptoms and improvedlower extremity alignment in 6-8 weeks. Therapist: Joyce Otero, AKASH 1:58 PM 07/14/2016 documented in this encounter Plan of Treatment Not on filedocumented as of this encounter Visit Diagnoses Diagnosis Chronic pain of right knee - Primary Muscle weakness Muscle weakness (generalized) documented in this encounter Care Teams Bagger Meat Relationship Specialty Start Date End Date Bj Pelletier MD PCP - General 05/19/[address] [facility], [address] documented as of this encounter
--- OUTSIDE RECORDS SUMMARY | 2021-12-03 11:44 | XMS_ITS | Encounter Summary ---
:1955 [facility] Address [address] [place] [address] Care Team Providers Name Role Phone Bj Pelletier MD Primary Care Provider Unavailable Reason for Visit Procedure/Equipment (Routine) - Incomplete Specialty Diagnoses / Procedures Referred By Contact Refer red To Contact Diagnoses Injury of left wrist, initial encounter Rowdy Brand MD Procedures XR Wrist Lt 3+ Views [address] [facility] [place] [address] Referral ID Status Reason Start Date Expiration Date Visits V isits Requested Authorized [id number] Incomplete 05/08/2017 08/07/2018 1 1 Encounter Details Date Type Department Care Team Description 05/08/2017 Imaging [facility] Rowdy Brand MD Injury of left wrist, initial encounter; [address] [facility] [address] [place] [address] Right shoulder pain, unspecified chronic ity [place] [address] [facility] [place] [address] [phone] (Wo rk) Social History Tobacco Use Types [...] Priority Date/Time Associated Diagnosis Comme nts XR WRIST LT 3+ Routine 05/08/2017 1:42 PM Injury of left Resul ts for this VIEWS CDT wrist, initial procedure are in encounter the results section. XR SHOULDER RT 2+ Routine 05/08/2017 1:42 PM Right shoulder pa in, Results for this VIEWS CDT unspecified procedure are i n chronicity [...] Diagnosis Injury of left wrist, initial encounter Right shoulder pain, unspecified chronic ity documented in this encounter Care Teams Joint Sealer Relationship Specialty Start Date End Date Bj Pelletier MD PCP - General 05/19/[address] [place], [address] documented as of this encounter
--- OUTSIDE RECORDS SUMMARY | 2021-12-03 11:44 | XMS_ITS | Encounter Summary ---
:1955 Author Organization [facility] Address [address] [place] [address] Care Team Providers Name Role Phone Bj Pelletier MD Primary Care Provider Unavailable Reason for Referral Procedure/Equipment (Routine) - Incomplete Specialty Diagnoses / Procedures Referred By Contact Refer red To Contact Diagnoses Closed nondisplaced fracture of proximal phalanx of lesser toe of right foot, initial encounter Otis Crump MD Procedures Postop/Cast shoe(L3260) [address] [facility] [address] [place] [address] Referral ID Status Reason Start Date Expiration Date Visits V isits Requested Authorized [id number] Incomplete 12/09/2016 03/10/2018 1 1 Procedure/Equipment (Routine) - Incomplete Specialty Diagnoses / Procedures Referred By Contact Refer red To Contact Diagnoses Closed nondisplaced fracture of proximal phalanx of lesser toe of right foot, initial encounter Otis Crump MD Procedures XR Foot Rt 3+ Views [address] [facility] [address] [place] [address] Referral ID Status Reason Start Date Expiration Date Visits V isits Requested Authorized [id number] Incomplete 12/09/2016 03/10/2018 1 1 Reason for Visit Reason Comments Foot Pain DOI 11/26/16 Pt raquelcked tash fletcher and has since stubbed to multiple times Encounter Details Date Type Department Care Team Description 12/09/2016 Office Visit [facility] Orthopedic Otis Crump, Closed nondisplaced Urgent Care fracture of proximal [address] [facility] [address] [facility] phalanx of lesser toe [place], [place] of right foot, initial [phone] encounter (Primary Dx) [phone] (Wo rk) Social History Tobacco Use Types [...] Pressure - - Pulse - - Temperature 36.9 ??C (98.5 ??F) 12/09/2016 1:55 PM CDT Respiratory Rate - - Oxygen Saturation - - Inhaled Oxygen Concentration - - Weight 62.6 kg (138 lb) 12/09/2016 1:55 PM CDT Height - - Body Mass Index 24.29 05/25/2016 3:12 PM CDT documented in this encounter Patient Instructions Patient InstructionsCandis Patel LPN - 12/09/2016 1:[address] Otis Crump MD Sports & Orthopaedic Medicine Acute [facility] Medication Requests: Prescriptions are not filled on Weekends or on Weekdays after 3:00PM For all medication refills: Request a refill using MyChart or contact your Pharmacy Acute Injury Clinic Nurse Line: Please contact Acute Injury Clinic Nurse line for all medical requests and questions at [phone] MRI Scheduling: To schedule an MRI at [facility] please call [phone] Paperwork Requests: Questions regarding FMLA or disability paperwork please call [phone] Phone lines are answered 8AM to 5PM Wednesday - Wednesday. Workers??? Compensation: Please contact our department for any Work Comp concerns at Email: [email or web address] Diagnosis: Right foot 4th proximal phalanx fracture Plan: Jovanni tape Post-op shoe Ice as instructed [id number] pain medications as needed Your Provider would like you to schedule a Follow Up with Dr. Crump- if symptoms fail to resolve Appointment Scheduling: Can be done at the costume specialist or by calling our main number [phone] documented in this encounter Progress Notes Otis Crump MD - 12/09/2016 1:50 PM CDT [facility] 12/09/2016 Chief Complaint: Right Foot Injury History of Present Illness: Megan العلي is a 61 y.o. female with a medical history significant for melanoma who presents for evaluation of a right foot injury. The patient reports that she ran into a ladder with her right foot on 11/26/16 and then ran into the same ladder again with her right foot four days later. She notes that she has bumped the foot a few more times since then. Today, she reports pain in her third,fourth, and fifth toes in the right foot, as well as the dorsal aspect of the foot. She states that she has tried ice and elevation with limited relief of her pain. She reports exacerbation of her painwith walking and exercise. She notes that her change in gait due to her foot pain is causing right knee pain as well. She states that she is travelling to [place] this weekend and will be walking frequently. Voiced no further concerns. Review of Systems: (+) Right foot and third through fifth toe pain (-) Fever (-) Rash (-) Numbness (-) Tingling Past Medical History: The patient has a past medical history of asthma, arthritis, high blood pressure, Cancer (melanoma) and postoperative nausea and vomiting. She denies diabetes or stomach problems. Past Surgical History: The patient has a past surgical history that includes Abdomen surgery; hernia (x2), right wrist, melanoma surgery, and hysterectomy. Social History: Nonsmoker. The patient exercises with walking and weight training. 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 Physical Exam: Temp 36.9 ??C (98.5 ??F) (Tympanic) Wt 62.6 kg (138 lb) BMI 24.29 kg/m2 Skin: No erythema or ecchymosis. Neuro: Sensation intact. Cardiovascular: Normal capillary refill. Right Foot/Ankle: Swelling in the fourth and fifth toes. Tenderness in the proximal fourth phalanx. Normal sensation. Imaging: Radiographs of the right foot - 3 views (12/09/16): Mild mid-foot arthritis. Nondisplaced transverse fracture of the fourth proximal phalanx. I ordered and independently reviewed and interpreted the imaging studies above; the results were discussed with the patient. Assessment: Diagnosis and Associated Orders ICD-10-CM 1. Closed nondisplaced fracture of proximal phalanx of lesser toe of right foot, initial encounter S92.514A XR Foot Rt 3+ Views Postop/Cast shoe(L3260) Plan: Educated the patient regarding her condition and management. After a discussion recommended symptomatic cares including icing three to four times daily, taping of the toes, and a post-operative shoe. The patient verbalized understanding and agreement with this plan. All questions were answered. Follow-up as needed. Scribe Disclosure: IShyam, am serving as a scribe to document [...] filedocumented as of this encounter Results XR Foot Rt 3+ Views (12/09/2016 2:24 PM CDT) Anatomical Region Laterality Modality Lower Extremity, Foot Digital Radiograph y Specimen (Source) Anatomical Location Collection Method / Collectio n Time Received Time / Laterality Volume Narrative 12/10/2016 8:06 AM CDT Mild mid-foot arthritis. Nondisplaced transverse fracture of the fourth proximal phalanx. Otis Crump MD RAD GD documented in this encounter Visit Diagnoses Diagnosis Closed nondisplaced fracture of proximal phalanx of lesser toe of right foot, initial encounter - Primary Right foot pain Pain in limb documented in this encounter Care Teams Resource Protection Specialist Relationship Specialty Start Date End Date Bj Pelletier MD PCP - General 05/19/[address] [facility], [address] documented as of this encounter
--- OUTSIDE RECORDS SUMMARY | 2021-12-03 11:44 | XMS_ITS | Encounter Summary ---
:1955 Author Organization [facility] Address [address] [place] [address] Care Team Providers Name Role Phone Bj Pelletier MD Primary Care Provider Unavailable Reason for Visit Procedure/Equipment (Routine) - Incomplete Specialty Diagnoses / Procedures Referred By Contact Refer red To Contact Diagnoses Primary osteoarthritis of left wrist Left wrist pain Left wrist injury, subsequent encounter De Quervain's disease (radial styloid tenosynovitis) Rowdy Brand MD Procedures [place] Injection Wrist Lt [address] [facility] [place] [address] Referral ID Status Reason Start Date Expiration Date Visits V isits Requested Authorized [id number] Incomplete 10/22/2017 01/21/2019 1 1 Encounter Details Date Type Department Care Team Description 10/29/2017 Office Visit [facility] Rowdy Brand, Primary osteoarthritis of le ft wrist; [address] [facility] Left wrist pain; [place], [place] [address] Left wrist injury, subsequent encounter; [address] [place], [place] De Quervain's disease (radia l styloid tenosynovitis) [phone] [address] Social History Tobacco Use Types Packs/Day Years [...] Name Priority Date/Time Associated Diagnosis Comme nts FL INJECTION WRIST Routine 10/29/2017 1:15 PM Primary osteoart hritis Results for this LT CDT of left wrist procedure are in Left wrist pain the results Left wrist injury, section. subsequent encou nter De Quervain's disease (radial styloid tenosynovitis) documented in this encounter Results FL Injection Wrist Lt (10/29/2017 1:15 PM CDT) Anatomical Region Laterality Modality Upper Extremity, Wrist Radiographic Imag ing Specimen (Source) Anatomical Collection Method Collection Time Re ceived Time Location / / Volume Laterality 10/29/2017 12:56 PM CDT Narrative 10/29/2017 1:39 PM CDT FINDINGS: The procedure, goals, risks and benefits of the procedure were discussed with the patient, who gave full written and verbal consent to proceed. The location of the procedure was confirmed, the skin initialed, and pause for cause per formed. Using sterile technique, local anesthesia and fluoroscopic guidance a 25 gauge needle was advanced into the left STT joint. Intraarticular location of the needle tip was confirmed with the injec tion of 0.2 mL of Isovue. Subsequently, 1.5 mL of a solution containing 40 mg of triamcinolone (40 mg/mL), and 0.5% ropivacaine was administered without complication. The patient rated their pain as a 0/10 p rior to the injection, and 0/10 immediately following the injection. Procedure Note Andre Jorgensen MD - 10/29/2017Formatt ing of this note might be different from the original. FINDINGS: The procedure, goals, risks an d benefits of the procedure were discussed with the patient, who gave full written and verbal consent to proceed. The location of the procedure was confirmed, the skin initialed, and pause for cause performed. Using jimbo rile technique, local anesthesia and fluoroscopic guidance a 25 gauge needle was advanced into the left STT joint. Intraarticular location of the needle tip was confirmed with the injection of 0.2 mL of Isovue. Subsequen tly, 1.5 mL of a solution containing 40 mg of triamcinolone (40 mg/mL), and 0.5% ropivacaine was administered without complication. The patient rated their pain as a 0/10 p rior to the injection, and 0/10 immediately following the injection. Rowdy Brand MD RAD [place] documented in this encounter Visit Diagnoses Diagnosis Primary osteoarthritis of left wrist Primary localized osteoarthrosis, forear m Left wrist pain Pain in joint, forearm Left wrist injury, subsequent encounter De Quervain's disease (radial styloid te nosynovitis) documented in this encounter Administered Medications Inactive Administered Medications - up to 3 most recent administrations Medication Order MAR Action Action Date Dose Rate Site iopamidol (ISOVUE-M 200) 41 % Given 10/29/2017 1:15 PM CDT 1 mL intrathecal injection 1 mL 1 mL, Intra-articular, ONCE, On Wed10/29/17 at 1315, For 1 dose triamcinolone acetonide (KENALOG-40) 40 MG/ML Given 1:15 PM CDT 40 mg injection 40 mg 40 mg, Intra-articular, ONCE, On Wed10/29/17 at 1315, For 1 dose documented in this encounter Care Teams Manager Respiratory Care Relationship Specialty Start Date End Date Bj Pelletier MD PCP - General 05/19/[address] [facility], [address] documented as of this encounter
--- OUTSIDE RECORDS SUMMARY | 2021-12-03 11:44 | XMS_ITS | Encounter Summary ---
:1955 Author Organization [facility] Address [address] [place] [address] Care Team Providers Name Role Phone Bj Pelletier MD Primary Care Provider Unavailable Reason for Visit Procedure/Equipment (Routine) - Incomplete Specialty Diagnoses / Procedures Referred By Contact Refer red To Contact Diagnoses Left wrist pain Primary osteoarthritis of left wrist Left wrist injury, subsequent encounter De Quervain's disease (radial styloid tenosynovitis) Rowdy Brand MD Procedures XR Wrist Lt 2 Views [address] [facility] [place] [address] Referral ID Status Reason Start Date Expiration Date Visits V isits Requested Authorized [id number] Incomplete 10/22/2017 01/21/2019 1 1 Encounter Details Date Type Department Care Team Description 10/22/2017 Imaging [facility] Rowdy Brand MD Left wrist pain [address] [facility] [address] [facility] [address] [place] [address] [facility] [place] [address] [phone] (Wo rk) Social History Tobacco Use Types [...] Associated Diagnosis Comme nts XR WRIST LT 2 VIEWS Routine 10/22/2017 4:00 PM Left wrist pain Results for this CDT procedure are i n the results section. documented in this encounter Results XR Wrist Lt 2 Views (10/22/2017 4:00 PM CDT) Anatomical Region Laterality Modality Upper Extremity, Wrist Digital Radiograp hy Specimen (Source) Anatomical Location Collection Method / Collectio n Time Received Time / Laterality Volume Narrative 10/26/2017 1:50 PM CDT 2 views of the left wrist, scaphoid and lateral views. Indication: ??Pain. ?? Results: ??No clear cortical defect with in the scaphoid. ??No clear cortical defect within the radius. ??Significant degenerative changes at the triscaphe joint again noted. Rowdy Brand MD RAD GD documented in this encounter Visit Diagnoses Diagnosis Left wrist pain Pain in joint, forearm documented in this encounter Care Teams Development Planner Relationship Specialty Start Date End Date Bj Pelletier MD PCP - General 05/19/[address] [facility], [address] documented as of this encounter
--- OUTSIDE RECORDS SUMMARY | 2021-12-03 11:44 | XMS_ITS | Encounter Summary ---
:1955 Author Organization [facility] Address [address] [place] [address] Care Team Providers Name Role Phone Bj Pelletier MD Primary Care Provider Unavailable Reason for Visit Procedure/Equipment (Routine) - Incomplete Specialty Diagnoses / Procedures Referred By Contact Refer red To Contact Diagnoses Closed nondisplaced fracture of proximal phalanx of lesser toe of right foot, initial encounter Otis Crump MD Procedures XR Foot Rt 3+ Views [address] [facility] [address] [place] [address] Referral ID Status Reason Start Date Expiration Date Visits V isits Requested Authorized [id number] Incomplete 12/09/2016 03/10/2018 1 1 Encounter Details Date Type Department Care Team Description 12/09/2016 Imaging [facility] Otis Crump MD Right foot pain [address] [facility] [address] [facility] [place] [address] [address] [place] [address] [phone] (Wo rk) Social History Tobacco Use Types [...] Date/Time Associated Diagnosis Comme nts XR FOOT RT 3+ VIEWS Routine 12/09/2016 2:24 PM Right foot pain Results for this CDT procedure are i n the results section. documented in this encounter Results XR Foot Rt 3+ [...] in this encounter Visit Diagnoses Diagnosis Right foot pain Pain in limb documented in this encounter Care Teams Keyboard Instrument Repairer Relationship Specialty Start Date End Date Bj Pelletier MD PCP - General 05/19/[address] [facility], [address] documented as of this encounter
--- OUTSIDE RECORDS SUMMARY | 2021-12-03 11:44 | XMS_ITS | Encounter Summary ---
:[address] [facility] Address [address] [place] [address] Care Team Providers Name Role Phone Bj Pelletier MD Primary Care Provider Unavailable Reason for Referral Procedure/Equipment (Routine) - Incomplete Specialty Diagnoses / Procedures Referred By Contact Refer red To Contact Diagnoses Primary osteoarthritis of left wrist Left wrist pain Left wrist injury, subsequent encounter De Quervain's disease (radial styloid tenosynovitis) Rowdy Brand MD Procedures [place] Injection Wrist Lt [address] [place] MD [address] 1 Referral ID Status Reason Start Date Expiration Date Visits V isits Requested Authorized [id number] Incomplete 10/22/2017 01/21/2019 1 1 Procedure/Equipment (Routine) - Incomplete Specialty Diagnoses / Procedures Referred By Contact Refer red To Contact Diagnoses Left wrist pain Primary osteoarthritis of left wrist Left wrist injury, subsequent encounter De Quervain's disease (radial styloid tenosynovitis) Rowdy Brand MD Procedures Wrist brace without thumb ([id number]) [address] [place] MD [address]43 1 Referral ID Status Reason Start Date Expiration Date Visits V isits Requested Authorized [id number] Incomplete 10/22/2017 01/21/2019 1 1 herapies (Routine) - Closed Specialty Diagnoses / Procedures Referred By Contact Refer red To Contact Diagnoses Left wrist pain Primary osteoarthritis of left wrist Left wrist injury, subsequent encounter De Quervain's disease (radial styloid tenosynovitis) Rowdy Brand MD [address] [place] [address] 1 Referral ID Status Reason Start Date Expiration Date Visits Requ ested Visits Authorized [id number] Closed 10/22/2017 12/21/2017 1 1 Scheduling Instructions Your provider has recommended an appoint ment with [facility] Orthopaedic [place]. You may call [phone] to schedule your appoi ntment. If you do not schedule an appointment within the next 1 to 3 business days, we will call you to help arrange your appointment. We suggest you call your [facility]. about your coverage and benefits for this appointment. Procedure/Equipment (Routine) - Incomplete Specialty Diagnoses / Procedures Referred By Contact Refer red To Contact Diagnoses Left wrist pain Primary osteoarthritis of left wrist Left wrist injury, subsequent encounter De Quervain's disease (radial styloid tenosynovitis) Rowdy Brand MD Procedures XR Wrist Lt 2 Views [address] [facility] [place] [address]43 1 Referral ID Status Reason Start Date Expiration Date Visits V isits Requested Authorized [id number] Incomplete 10/22/2017 01/21/2019 1 1 Reason for Visit Reason Comments WRIST PAIN Recheck Lt wrist pain Encounter Details Date Type Department Care Team Description 10/22/2017 Office Visit [facility] Orthopedic Rowdy Brand, Left wr ist injury, subsequent encounter (Primary Dx); Urgent Care Left wrist pain; [address] [facility] Primary osteoarthritis of left wrist; [place] De Querva in's disease (radial styloid tenosynovitis) [id number] [phone] Social History Tobacco Use Types Packs/Day Years [...] Pressure - - Pulse - - Temperature 36.8 ??C (98.3 ??F) 10/22/2017 3:47 PM CDT Respiratory Rate - - Oxygen Saturation - - Inhaled Oxygen Concentration - - Weight - - Height - - Body Mass Index - - documented in this encounter Patient Instructions Patient InstructionsCandis Patel LPN - 10/22/2017 3:[address] Rowdy Brand MD Sports & Orthopaedic Medicine [facility] Medication Requests: Prescriptions are not filled on Weekends or on Weekdays after 3:00PM For all medication refills: Request a refill using [employer] or contact your Pharmacy Acute [facility] Nurse Line: Please contact [facility] Injury Clinic Nurse line for all medical requests and questions at [phone] MRI Scheduling: To schedule an MRI at [facility] please call [phone] Paperwork Requests: Questions regarding FMLA or disability paperwork please call [phone] Phone lines are answered 8AM to 5PM Wednesday - Wednesday Workers??? Compensation: Please contact our department for any Work Comp concerns at Email: [email or web address] Diagnosis: Left wrist triscaph osteoarthritis with DeQuervain's Plan: Hand therapy Wrist brace DeQuervain's handout given Scheduled guided corticosteroid injection Your Provider would like you to schedule a Follow Up as needed with Dr. Brand- if symptoms fail toresolve Appointment Scheduling: Can be done at the desk maker or by calling our main number [phone] Thank you for enrolling in [employer]. Please follow the instructions below to securely access your online medical record. [employer] allows you to send messages to your doctor, view your test results, renewyour prescriptions, schedule appointments, and more. How Do I Sign Up? 1. In your Internet browser, go to [email or web address] 2. Click on the Enter activation code link under the New User? section. You will see the Activate your account! page. 3. Enter your activation code exactly as it appears below. You will not need to use this code after you???ve completed the sign-up process. If you do not sign up before the expiration date, you must request a new code. Activation Code: [email or web address] Expires: 11/21/2017 3:49 PM 4. Enter your last name and date of (mm/dd/yyyy) as indicated, then click Continue. You will be taken to the Let's set up your account page. 5. Create a username. This will be your [employer] login ID and cannot be changed, so think of one thatis secure and easy to remember. 6. Create a password. You can change your password at any time. 7. Enter your e-mail address. You will receive e-mail notification when new information is availablein [employer]. 8. Select your Security Questions and enter your answers. These can be used at a later time if you forget your password. 9. Check the box to accept the terms and conditions. Click Create your account. You can now view your medical record. Additional Information If you have questions, you can call [phone] to talk to our [employer] staff. Remember, [employer] is NOT to be used for urgent needs. For medical emergencies, dial 911. documented in this encounter Progress Notes Rowdy Brand MD - 10/22/2017 4:53 PM CDT NAME: MEGAN AYON MR#: [id number] CSN: [id number] AUTHENTICATING CLINICIAN: Rowdy Brand MD CONFIRM #: [id number] LOC: 711 CLINIC PROGRESS NOTE DATE OF VISIT: 10/22/2017 : 1955 SUBJECTIVE: This is a 61-year-old left-hand dominant female who returns for her left wrist. She fell and injuredthe area on 05/07, and then I saw her on 05/08. X-rays failed to reveal a fracture but she has significant triscaphe osteoarthritis. I suggested ice and elevation and symptomatic management. I asked her to return if her symptoms fail to improve. She says overall her pain has improved, but occasionallyshe will get swelling and stiffness. She is back for recheck and re-x-ray. REVIEW OF SYSTEMS: No fevers, chills, numbness or tingling. No joint pain or swelling in other joints. MEDICATIONS: Reviewed on EMR. ALLERGIES: Reviewed on EMR. PHYSICAL EXAM: Temperature 98.3, pain 3/10 to 8/10. In general, she is alert and pleasant, in no acute distress. Oninspection of her left wrist, there is mild soft tissue swelling over the distal radius and anatomicsnuffbox. She has tenderness over the thumb extensor and abductor tendons. Quinn's test is positive. She has strong symmetric distal pulses with normal sensation and cap refill throughout her digits. IMAGING STUDIES: X-rays, 2 views of the left wrist, scaphoid and lateral views independently reviewed. Indication: Pain. Results: No clear cortical defect within the scaphoid. No clear cortical defect within the radius. Significant degenerative changes at the triscaphe joint again noted. ASSESSMENT: Persistent left wrist and thumb pain status post trauma 05/07/2017, consistent with aggravation of triscaphe osteoarthritis with de Quervain's tenosynovitis with no clear evidence for fracture on x-ray. PLAN: I reviewed the x-ray findings and diagnoses with the patient. I suggested a thumb spica brace which we provided. I sent her for hand therapy where she will get exercises and modalities to treat her symptoms. I ordered a fluoroscopically-guided left triscaphe intra-articular cortisone injection in Interventional Radiology. She will continue with other symptomatic management. She has no improvement despite the above treatment, I would consider follow up with one of our hand and wrist specialists to discuss other options. SDW:MEDQ C: R:10/22/17 17:03 CONFIRM#:[id number] documented in this encounter Plan of Treatment Scheduled Referrals Name Type Priority Associated Diagnoses Order S [facility] Hand Therapy Consult Referral Routine Left wrist pain Ordered: 10/22/2017 Primary osteoarthritis of left wrist Left wrist injury, subsequent encou nter De Quervain's disease (radial styloid tenosynovitis) documented as of this encounter Results FL Injection Wrist Lt [...] the injection. Rowdy Brand MD RAD [place] XR Wrist Lt 2 Views (10/22/2017 4:00 [...] this encounter Visit Diagnoses Diagnosis Left wrist injury, subsequent encounter - Primary Left wrist pain Pain in joint, forearm Primary osteoarthritis of left wrist Primary localized osteoarthrosis, forear m De Quervain's disease (radial styloid te nosynovitis) Left wrist pain Pain in joint, forearm Primary osteoarthritis of left wrist Primary localized osteoarthrosis, forear m Left wrist pain Pain in joint, forearm Left wrist injury, subsequent encounter De Quervain's disease (radial styloid te nosynovitis) documented in this encounter Care Teams [employer] Relationship Specialty Start Date End Date Bj Pelletier MD PCP - General 05/19/[address] [facility], [address] documented as of this encounter
--- OUTSIDE RECORDS SUMMARY | 2021-12-03 11:44 | XMS_ITS | Encounter Summary ---
:1955 Author Organization [facility] Address [address] [place] [address] Care Team Providers Name Role Phone Bj Pelletier MD Primary Care Provider Unavailable Reason for Visit Procedure/Equipment (Routine) - Incomplete Specialty Diagnoses / Procedures Referred By Contact Refer red To Contact Diagnoses Right shoulder pain, unspecified chronicity Luis Alberto Goodman MD Procedures [place] Injection Shoulder Rt [address] [facility] [place], [place] [address] 1 Referral ID Status Reason Start Date Expiration Date Visits V isits Requested Authorized [id number] Incomplete 01/31/2019 05/01/2020 1 1 Encounter Details Date Type Department Care Team Description 02/14/2019 Ancillary [facility] Luis Alberto Goodman, Right shoulder Procedure [address], unspecified Drive [address] [facility] [place] [address] [phone] Social History Tobacco Use Types Packs/Day Years [...] Date/Time Associated Diagnosis Comme nts FL INJECTION Routine 02/14/2019 3:24 PM Right shoulder pain, R esults for this SHOULDER RT DIRECTOR OF CHANNEL MARKETING unspecified procedure are i n chronicity the results section. documented in this encounter Results FL Injection Shoulder Rt (02/14/2019 3:24 PM DIRECTOR OF CHANNEL MARKETING) Anatomical Region Laterality Modality Upper Extremity, Shoulder Radiographic I maging Specimen (Source) Anatomical Collection Method Collection Time Re ceived Time Location / / Volume Laterality 02/14/2019 2:57 PM DIRECTOR OF CHANNEL MARKETING Impressions 02/14/2019 3:29 PM DIRECTOR OF CHANNEL MARKETING FINDINGS: The procedure, goals, risks and benefits of the procedure were discussed with the patient, who gave full written and verbal consent to proceed. The location of the procedure was confirmed, the skin initialed, and pause for cause per formed. Using sterile technique, local anesthesia and fluoroscopic guidance a 22 gauge needle was advanced into the right glenohumeral joint. Intraarticular locat ion of the needle tip was confirmed with the injection of 1 mL of Isovue. Subsequently, 40 mg of triamcinolone (40 mg/mL), and 5 mL ropivacaine 0.5% was administered without complication. The patient rated their pain as a 1/10 p rior to the injection, and 1/10 immediately following the injection. Procedure Note Terrie Roque PA-C - 02/14/2019Formatt ing of this note might be different from the original. IMPRESSION FINDINGS: The procedure, goals, risks an d benefits of the procedure were discussed with the patient, who gave full written and verbal consent to proceed. The location of the procedure was confirmed, the skin initialed, and pause for cause performed. Using jimbo rile technique, local anesthesia and fluoroscopic guidance a 22 gauge needle was advanced into the right glenohumeral joint. Intraarticular location of the needle tip was confirmed with the injection of 1 mL of Isovue. Subsequently, 40 mg of triamcinolone (40 mg/mL), and 5 mL ropivacaine 0.5% was administered without complication. The patient rated their pain as a 1/10 p rior to the injection, and 1/10 immediately following the injection. Luis Alberto Goodman MD [facility] [place] documented in this encounter Visit Diagnoses Diagnosis Right shoulder pain, unspecified chronic ity documented in this encounter Administered Medications Inactive Administered Medications - up to 3 most recent administrations Medication Order MAR Action Action Date Dose Rate Site iopamidol (ISOVUE-M 200) 41 % Given 02/14/2019 3:15 PM DIRECTOR OF CHANNEL MARKETING 1 mL intrathecal injection 1 mL 1 mL, Intra-articular, ONCE, On 02/14/19 at 1515, For 1 dose triamcinolone acetonide (KENALOG-40) 40 MG/ML Given 3:15 PM DIRECTOR OF CHANNEL MARKETING 40 mg injection 40 mg 40 mg, Intra-articular, ONCE, On 02/14/19 at 1515, For 1 dose documented in this encounter Care Teams Wafer Batter Mixer Relationship Specialty Start Date End Date Bj Pelletier MD PCP - General 05/19/[address] [facility] [address] documented as of this encounter
--- OUTSIDE RECORDS SUMMARY | 2021-12-03 11:44 | XMS_ITS | Encounter Summary ---
:[address] [facility] [facility] Address [address] [place] [address] Care Team Providers Name Role Phone Bj Pelletier MD Primary Care Provider Unavailable Reason for Referral (Routine) - Closed Specialty Diagnoses / Procedures Referred By Contact Refer red To Contact Diagnoses Arthritis of wrist, left Lili Nunez MD Procedures Dexamethasone Sodium Phos (per 1 mg) [address] [facility] [place] [address] 1 Referral ID Status Reason Start Date Expiration Date Visits Requ ested Visits Authorized [id number] Closed 11/11/2017 02/10/2019 1 1 Reason for Visit Reason Comments Hand Problem L wrist DeQuervain Encounter Details Date Type Department Care Team Description 11/10/2017 Office Visit [facility] Lili Nunez, Arthri tis of wrist, CENTER left (Primary Dx) [address] [facility] [place] [address] [address] [facility] [place] [phone] (Wo rk) Social History Tobacco Use Types [...] - Inhaled Oxygen Concentration - - Weight 57.2 kg (126 lb) 11/10/2017 9:25 AM CDT Height 162.6 cm (5' 4) 11/10/2017 9:25 AM CDT Body Mass Index 21.63 11/10/2017 9:25 AM CDT documented in this encounter Patient Instructions Patient InstructionsThomas, Juliette Askew, AOC DIRECTOR INTELLIGENCE OFFICER - 11/10/2017 9:[address] Lili Nunez MD Hand & Upper Extremity Surgeon Box Finisher: Antonia Carrera Please call Antonia for all surgery scheduling and administrative questions at [phone] Hand Nurse: Manny Torre Please contact Manny for all medical related questions at [phone] Medication Requests: Prescriptions are not filled on Weekends or on Weekdays after 3:00PM For all medication refills: Request a refill using MyChart or contact your Pharmacy Dr. Denita Danielson MD Primary Care Sports Medicine Medical Orthopaedics (Non-Surgical) Please contact Dr. Danielson's Seamstress Fitter, Doris Yanes, for all medical questions at [phone] Box Finisher: Claire Ponce Please contact Claire for all administrative questions at [phone] Medication Requests: Prescriptions are not filled on Weekends or on Weekdays after 3:00PM For all medication refills: Request a refill using MyChart or contact your Pharmacy Dr. Yanira Sanz MD Primary Care Sports Medicine Medical Orthopaedics Please contact Seamstress Fitter's line for all medical questions at [phone] Box Finisher: Claire Ponce Please contact Claire for all administrative questions at [phone] Medication Requests: Prescriptions are not filled on Weekends or on Weekdays after 3:00PM For all medication refills: Request a refill using MyChart or contact your Pharmacy The left wrist was injected with Dexamethasone sodium-4 and lidocaine. Avoid Strenuous Activity for the remainder of the day and avoid activities that cause pain for one to two weeks following the injection. Signs and Symptoms to watch for: If you have any redness, warmth or increasing pain at the site of the injection or develop a fever, please call [phone] You've just had a steroid (cortisone) injection: [...] encounter Progress Notes Lili Nunez MD - 11/10/2017 9:20 AM CDT [facility] Orthopaedic [place] Consultation 11/10/2017 Chief Complaint: Left Hand Pain History of Present Illness: Megan العلي is a left hand dominant 61 y.o. female who presents for evaluation of left hand pain. The patient has known triscaphe osteoarthritis. The patient was last evaluated by Dr. Echeverria 10/22/17, at which time she reported pain after falling and hurting her left wrist on 05/07/17. X-Rays revealed no signs of fracture. However, she elected to proceed with a fluoroscopically-guided left triscaphe intra-articular cortisone injection in order to treat the de Quervain's tenosynovitis. Today, she reports that sometimes her pain is excruciating. Her pain is exacerbated by turning her wrist or reaching to pick things up from the floor. Allergies: Tobacco [nicotiana tabacum]; Amoxicillin; Cat hair extract; Other; Sulfa antibiotics; Sulfamethoxazole-trimethoprim; and Tramadol Current Medications: The patient has a current medication list which includes the following prescription(s): albuterol sulfate hfa, ascorbic acid, b complex vitamins, vitamin d3, lisinopril, and multi-vitamin. Past Medical History: The patient has a past medical history of Cancer (HRC) and PONV (postoperative nausea and vomiting). Past Surgical History: The patient has a past surgical history that includes Abdomen surgery; melanoma; and hysterectomy. Family History: The patient has no pertinent family history. The General Medical History Form dated 11/10/2017 was updated and reviewed with the patient; this is located in [facility] in [facility] [place]. Review of Systems: No cardiac, respiratory, or GI issues. A 10-point review is all negative.? Physical Exam: General: A pleasant female of stated age, no acute distress.?? Skin: Intact.?? Neurovascular: Sensation is intact to light touch. There is brisk capillary refill in the digit.?? Left Hand/Wrist: Mild tenderness at the STT joint and radioscaphoid joint. Pain is most prominent over the first dorsal compartment. Positive Quinn's. Imaging: Radiographs of the left wrist - 2 views (10/22/17): Results: ??No clear cortical defect within the scaphoid. ??No clear cortical defect within the radius. ??Significant degenerative changes at the triscaphe joint again noted. Per Dr. Brand I independently reviewed the imaging studies above; the results were discussed with the patient. Assessment: Diagnosis and Associated Orders ICD-10-CM 1. Arthritis of wrist, left M19.032 STT joint arthritis Plan: The patient and I discussed the various treatment options available. Although she recently received an injection to her wrist, I recommended she undergo a left De Quervain's injection to the first dorsal compartment of her left wrist. She voiced understanding and elects to proceed. Follow-up p.r.n. All questions were answered. Procedure: Left De Quervain's Injection: Patient was warned prior to the injection that fatty atrophy or discoloration may occur after the injection. After sterile preparation, 1mL of 1% lidocaine plus 4 mg of dexamethasone was injected in the??first dorsal compartment of the left wrist. Patient tolerated the procedure well. Scribe Disclosure: I, Jose G Curry, am serving as a scribe to document services personally performed by Lili Nunez MD at this visit, based upon the provider's statements to me. All documentation has been reviewed bythe aforementioned provider prior to being entered into the official medical record. Portions of this medical record were completed by a scribe. UPON MY REVIEW AND AUTHENTICATION BY ELECTRONIC SIGNATURE, this confirms (a) I performed the applicable clinical services, and (b) the recordis accurate. Lili Nunez MD documented in this encounter Plan of Treatment Not on filedocumented as of this encounter Visit Diagnoses Diagnosis Arthritis of wrist, left - Primary Unspecified arthropathy, forearm documented in this encounter Care Teams Pumper Gager Relationship Specialty Start Date End Date Bj Pelletier MD PCP - General 05/19/[address] [facility], [address] documented as of this encounter
--- OUTSIDE RECORDS SUMMARY | 2021-12-03 11:44 | XMS_ITS | Encounter Summary ---
:1955 Author Organization [facility] Address [address] [place] [address] Care Team Providers Name Role Phone Bj Pelletier MD Primary Care Provider Unavailable Encounter Details Date Type Department Care Team Description 08/09/2019 corey Rodríguez [phone] Social History Tobacco Use Types Packs/Day Years Used Date Smoking Tobacco: Never Smokeless Tobacco: Never Alcohol Use Standard Drinks/Week Comments Yes 0 (1 standard drink = 0.6 oz pure alcoho l) 2-3 glasses of wine per week Sex Assigned at Date Recorded Female 10/03/2020 11:17 AM CDT documented as of this encounter Progress Notes FAMILY MEDICINECOREY PROVIDER - 08/09/2019 12:00 AM CDT corey Treatment Plan Diagnosis Urinary Tract Infection Visit Date August 09, 2019 Megan LorenzoTaySeveriano Date of : 55 Provider Jodi Menjivar, Physician Finish Painter Note From Provider Good morning Megan- be sure to stay well hydrated while taking the medication and take the full course as directed even if you are feeling better. Follow up if your symptoms worsen, persist or become concerning. Be well! Treatment Plan Since you have a bacterial [...] a full stomach. Refills: None Sent To: [facility]/pharmacy [id number] [place] [id number] Treatment Plan Self Care Tip Topics Warm Packs Drink Water Avoid Caffeine Yeast Infection Next Steps What to Expect If you follow the [...] pelvis My Conditions, Orders, Allergies as of August 09, 2019 Standard condition list High Blood Pressure (Hypertension) Current orders Macrobid (nitrofurantoin monohyd/m-cryst) lisinopril (lisinopril) Allergies None [place] [employer] [facility] We are an online clinic open 07/09. If you have any questions or comments about this visit, please call or email [email or web address] documented in this encounter Plan of Treatment Not on filedocumented as of this encounter Visit Diagnoses Not on filedocumented in this encounter Care Teams Scrap Bunch Maker Relationship Specialty Start Date End Date Bj Pelletier MD PCP - General 05/19/[address] [facility], [address] documented as of this encounter
--- OUTSIDE RECORDS SUMMARY | 2021-12-03 11:44 | XMS_ITS | Encounter Summary ---
:1955 Author Organization [facility] Address [address] [address] Care Team Providers Name Role Phone Bj Pelletier MD Primary Care Provider Unavailable Reason for Referral Procedure/Equipment (Routine) - Incomplete Specialty Diagnoses / Procedures Referred By Contact Refer red To Contact Diagnoses Right shoulder pain, unspecified chronicity Luis Alberto Goodman MD Procedures [place] Injection Shoulder Rt [address] [facility] [address] [address] [place], [place] [address] Referral ID Status Reason Start Date Expiration Date Visits V isits Requested Authorized [id number] Incomplete 01/31/2019 05/01/2020 1 1 NFORMATICS SPECIALIST Procedure/Equipment (Routine) - Incomplete Specialty Diagnoses / Procedures Referred By Contact Refer red To Contact Diagnoses Right shoulder pain, unspecified chronicity Luis Alberto Goodman MD Procedures XR Shoulder Rt 2+ Views [address] [facility] [address] [address] [place] [address] Referral ID Status Reason Start Date Expiration Date Visits V isits Requested Authorized [id number] Incomplete 01/31/2019 05/01/2020 1 1 NFORMATICS SPECIALIST Reason for Visit Reason Comments SHOULDER PAIN right Encounter Details Date Type Department Care Team Description 01/31/2019 Office Visit [facility] Luis Alberto Goodman Right s houlder pain, unspecified chronicity (Primary Dx); CENTER Primary osteoarthritis of right shoulder [address] [employer] [address] [facility] [id number] [phone] Social History Tobacco Use Types Packs/Day Years Used Date Smoking Tobacco: Never Smokeless Tobacco: Never Alcohol Use Standard Drinks/Week Comments Yes 0 (1 standard drink = 0.6 oz pure alcoho l) 2-3 glasses of wine per week Sex Assigned at Date Recorded Female 10/03/2020 11:17 AM CDT documented as of this encounter Patient Instructions Patient InstructionsJasmine Meneses - 01/31/2019 3:[address] Luis Alberto Goodman MD Orthopaedic Surgeon Medication Requests: Prescriptions are not filled on weekends or on weekdays after 3:00 PM NFORMATICS SPECIALIST documented in this encounter Progress Notes Luis Alberto Goodman MD - 01/31/2019 3:20 PM CST Megan العلي [id number] 1955 [facility] Consultation 01/31/2019 Chief Complaint: Right shoulder pain History of Present Illness: Megan العلي is a left hand dominant 63 y.o. female who presents for evaluation of right shoulder pain. The pain began about two years ago without any specific injury or trauma. She has tried care companion and acupuncture, but is still having radiating pain down the arm. She is unable to raise her arm without significant pain and clicking. She lost range of motion of the shoulder as well. She is having difficult sleeping at night due to the pain. She denies any numbness and tingling. She is not currently in physical therapy, but has done some in the past without significant benefit. She has continued to work on exercises at home. The intake sheet was reviewed with the patient. This was up-to-date including medications, past surgical history and social history, as well as risk factors, complete review of systems and family health history and scanned into electronic medical record. Physical Exam: General: Pleasant 63 y.o. female in no acute distress. Appropriate affect. Alert and oriented x 3. Walks with a non-antalgic gait. Musculoskeletal: Lumbosacral range of motion is full and pain-free. Neurovascular: Neurovascularly intact distally. Skin: No erythema, ecchymosis, atrophy, or effusion. Right Shoulder: Forward elevation is 95 degrees on the right compared to 140 degrees on the left. External rotation is 5-10 degrees on the left and 50 degrees on the left. Internal rotation is L5 bilaterally. Negative crossbody testing. Good rotator cuff strength. Ligamentously stable and neurovascularly intact distally. Imaging: Radiographs of the right shoulder - 2+ views (01/31/19): Two plus views of the right shoulder; Glenohumeral, AP axillary lateral and scapular Y view show endstage glenohumeral osteoarthritis. No migration of the humeral head. No acute fractures or dislocations. I ordered and independently reviewed and interpreted the imaging studies above; the results were discussed with the patient. Assessment: Right shoulder glenohumeral osteoarthritis Plan: We had a detailed discussion about implications of the diagnosis as well as possible treatment options. Risks and benefits of operative and non-operative management were discussed, and at this time, the patient elects to proceed with a right shoulder intraarticular cortisone injection. She will call back in 7-10 days to update us on her progress. Follow-up as needed. Scribe Disclosure: Scribed for Luis Alberto Goodman MD by Bethany Mckay Inventory Associate. IMaxine Kirk J, MD, have personally reviewed and agree with the information provided by the scribe. NFORMATICS SPECIALIST documented in this encounter Plan of Treatment Not on filedocumented as of this encounter Results FL Injection Shoulder Rt (02/14/2019 3:24 PM BIOINFORMATICS SPECIALIST) Anatomical Region Laterality Modality Upper Extremity, Shoulder Radiographic I maging Specimen (Source) Anatomical Collection Method Collection Time Re ceived Time Location / / Volume Laterality 02/14/2019 2:57 PM BIOINFORMATICS SPECIALIST Impressions 02/14/2019 3:29 PM BIOINFORMATICS SPECIALIST FINDINGS: The procedure, goals, risks and benefits [...] 1/10 immediately following the injection. Luis Alberto CHÁVEZ FL XR Shoulder Rt 2+ Views (01/31/2019 3:09 PM BIOINFORMATICS SPECIALIST) Anatomical Region Laterality Modality Upper Extremity, Shoulder Digital Radiog archana Specimen (Source) Anatomical Location Collection Method / Collectio n Time Received Time / Laterality Volume Narrative 02/06/2019 12:02 PM BIOINFORMATICS SPECIALIST Radiographs of the right shoulder - 2+ views (01/31/19): Two plus views of the right shoulder; Gl enohumeral, AP axillary lateral and scapular Y view show end stage gleno humeral osteoarthritis. No migration of the humeral head. No acute fractures or dislocations. Luis Alberto CHÁVEZ GD documented in this encounter Visit Diagnoses Diagnosis Right shoulder pain, unspecified chronic ity - Primary Primary osteoarthritis of right shoulder Primary localized osteoarthrosis, should er region Right shoulder pain, unspecified chronic ity Right shoulder pain, unspecified chronic ity documented in this encounter Care Teams Band Bias Machine Operator Relationship Specialty Start Date End Date Bj Pelletier MD PCP - General 05/19/[address] [facility], [address] documented as of this encounter
--- OUTSIDE RECORDS SUMMARY | 2021-12-03 11:45 | XMS_ITS | Encounter Summary ---
:1955 Author Organization [facility] Address [address], [place] [address] Care Team Providers Name Role Phone Bj Pelletier MD Primary Care Provider Unavailable Encounter Details Date Type Department Care Team Description 03/26/2016 Hospital Encounter [facility] Lili Hopper, [address] [facility] Meenakshi garsia MD [place], [place] [address] [place] [address] [place] [address] (Wo rk) Social History Tobacco Use Types [...] Sign Reading Time Taken Comments Blood Pressure 134/72 03/26/2016 2:59 PM CARAMEL CUTTER HELPER Pulse 75 03/26/2016 2:59 PM CARAMEL CUTTER HELPER Temperature 36.9 ??C (98.4 ??F) 03/26/2016 3:15 PM CARAMEL CUTTER HELPER Respiratory Rate 16 03/26/2016 2:59 PM CARAMEL CUTTER HELPER Oxygen Saturation 96% 03/26/2016 2:59 PM CARAMEL CUTTER HELPER Inhaled Oxygen Concentration - - Weight 61.2 kg (135 lb) 03/26/2016 10:30 AM CARAMEL CUTTER HELPER Height 162.3 cm (5' 3.9) 03/26/2016 10:30 AM CARAMEL CUTTER HELPER Body Mass Index 23.25 03/26/2016 10:30 AM CARAMEL CUTTER HELPER documented in this encounter Discharge Instructions Discharge InstructionsGrierson, Lili, MD - 03/26/2016 1:15 PM CST Expectations after surgery: Pain, swelling, and bruising are not unusual for the first 2 weeks after surgery. Your pain should lessen each day. Pain Control: Your anesthetic will usually last 8-12 hours. The amount of time your surgical area is numb varies significantly for each patient. Do not be concerned if the numbness persists for up to 24 hours. Your arm may feel very heavy during this time. You must wear your sling until you have full control of your arm. Applying an ice pack to the extremity may be helpful in controlling your pain. If you are able to tolerate over the counter medications, take acetaminophen (Tylenol), ibuprofen (Advil or Motrin), or naproxen (Aleve) to control your pain. Follow the directions on the bottle. If you received a prescription for pain medication, take as directed. Take prescription pain medications with food to avoid an upset stomach. Do not drink alcohol or drive if you are taking a prescription pain medication. As your pain decreases, switch to the over the counter medications. Call if you develop a rash, hives, or intolerance to your pain medication. Stop taking your medication. To refill your prescription pain medications, call your pharmacy on a weekday before 3 pm. Prescription pain medications will not be refilled in the evenings or on weekends. Dressing and wound cares: Wash your hands before and after caring for your incision. Keep your splint clean,dry, and intact. During this time, cover your dressing with plastic wrap, a plastic bag or a cast cover to shower. Shower with your hand up to avoid getting your dressing wet. Once the splint is removed you may let water run over incision but do not soak the wound or go into flores, pool or hot tub until sutures are removed and the incision is well healed. The sutures will be removed, if necessary, at your follow-up appointment in 10-14 days. Diet: Drink plenty of fluids. If you are taking pain medications, do not drink alcohol. Start by drinking small amounts of fluids, such as water, clear carbonated beverages, tea or soup. Start with light meals, resuming your regular diet as you feel comfortable. If you are taking prescription pain medications, they can cause constipation. Eat fiber (fruits and vegetables) and drink plenty of fluids. Activity: Elevate your operative hand or wrist on 1-2 pillows with hand higher than elbow for 1-2 days to helpminimize swelling. You should move your fingers, hand, and wrist through a gentle range of motion asallowed by your operative dressing. Light activites of daily living are encouraged. Avoid heavy gripand grasp activities and do not lift greater than 2 pounds with your operative hand until sutures are removed. Assistance or questions: Call Dr. Hopper's office if you are experiencing any of these symptoms: Fever of 101 F (38C) or higher Severe pain not relieved with pain medication or ice Excessive bleeding or fluid from the surgical site Increased or foul-smelling drainage from surgical site Significant redness, tenderness, or swelling around the incision Separation of skin closures Contact information: Dr. Lili Hopper MD Hand & Upper Extremity Surgeon Ship Manager: Antonia Carrera Please call Antonia for all surgery scheduling and administrative questions at [phone] Hand Nurse: Manny Torre Please contact Manny for all medical related questions at [phone] MEL CUTTER HELPER documented in this encounter Medications at Time of Discharge Medication Sig Dispensed Refills Start Date End Date ALBUterol sulfate HFA 108 Inhale 2 Puffs as 0 12/2014 (90 Base) MCG/ACT inhaler needed. Ascorbic Acid (VITAMIN C OR) Take 2 Tablets by 0 08/03/2006 mouth daily. B Complex Vitamins (VITAMIN Take by mouth 0 08/03 B COMPLEX OR) daily (every 24 hours). Multiple Vitamin Take by mouth. 0 (MULTI-VITAMIN) tablet acetaminophen-codeine Take 1 Tab by 0 03/20/2016 10/22/2017 (TYLENOL NO. . 3) 300-30 MG mouth. Reported tablet on 05/25/2016 B Complex tablet Take by mouth. 0 05/16 Reported on 05/25/2016 hydrochlorothiazide (ORETIC) Take 25 mg by 3 05/0 06/201510/22/2017 25 MG tabletIndications: mouth daily CARINE GARCIA WedSep 25, (every 24 hours). 2015 10:03 AM Received from: External Pharmacy mometasone furoate (ASMANEX 0 12/11/19 16 10/22/2017 30 METERED DOSES) 110 mcg/inhalation inhaler Multiple Vitamins-Minerals Take 1 tablet by 100 13 07/200605/25/2016 (MULTIVITAMIN OR) mouth daily (every 24 hours). ondansetron (ZOFRAN ODT) 4 Take 4-8 mg by 0 03/2005/25/2016 MG disintegrating tablet mouth. Reported on 03/24/2016 unknown medication Indications: PN: 0 10/25/2006 10/22/2017 documented as of this encounter Procedure Notes Lili Hopper MD - 03/26/2016 2:15 PM CST [facility] Operative Note NAME: Megan العلي ENCOUNTER: [id number] DICTATING CLINICIAN: LILI HOPPER MD OPERATIVE REPORT : 1955 DATE OF OPERATION: 03/26/2016 PREOPERATIVE DIAGNOSIS: rightExtra-articular distal radius fracture POSTOPERATIVE DIAGNOSIS: right Extra-articular distal radius fracture PROCEDURE PERFORMED: right Open Reduction Internal Fixation,extra-articular distal radius fracture SURGEON: Lili Hopper M.D. REAL ESTATE TEACHER: KIMBERLY Armas ANESTHESIA: Axillary block. ESTIMATED BLOOD LOSS: Minimal. COMPLICATIONS: None IMPLANT: HAND INNOVATIONS VOLAR LOCKING PLATE INDICATIONS FOR PROCEDURE: This is a 60 y.o. female with an extra-articular distal radius fracture. Please see last visit note in [facility] for details. OPERATIVE FINDINGS: extra-articular distal radius fracture with stable druj, and scapholunate interosseous ligament DESCRIPTION OF PROCEDURE: After informed consent was obtained, surgical site was marked and patient was positively identified, an axillary block was administered by the anesthesia department in the preoperative area. The patient was then brought in the operating room and placed in a supine position on the operating room table. An upper arm tourniquet was applied and the patient was prepped and draped in standard surgical fashion. A [id number]-[id number]-cause was performed prior to initiation of the procedure. Antibiotics were administered prior to initiation of the procedure. Procedure was performed under 3.5 loupe magnification. The limb was elevated, exsanguinated and the tourniquet inflated. A 3 inch incision was made along the line of flexor carpi radialis tendon with sharp dissection down through the skin and subcutaneous tissue, extending proximally from the wrist crease. Hemostasis was maintained throughout dissection with electrocautery. The flexor carpi radialis tendon sheath was split longitudinally and retracted. The base of the sheath was split longitudinally. The FPL was retracted. The pronator was elevator off of the distal radius. Fracture was reduced and was held in position while a volar locking plate was put into position. A screw was placed in the oval hole by drilling, measuring, and placing the non-locking screw. A locking screw was then placedinto the distal portion of the plate. Position was verified using AP, lateral, and scaphoid view fluoroscopy and found to be within acceptable limits. 3 of the 6 distal holes were filled with locking screws. The remaining shaft screws were filled. Final reduction was verified using AP, lateral and scaphoid view and found to be acceptable. The druj was tested and found to be stable. The tourniquet was then deflated. Copious irrigation was performed. The wound was closed in layers. Sterile dressing was applied. The patient will follow an accelerated postoperative protocol. MEL CUTTER HELPER documented in this encounter Plan of Treatment Scheduled Orders Name Type Priority Associated Diagnoses Order S chedule POCT Glucose: Point of Care Routine Once today st arting now for 1 Occurrences s tarting 03/26/2016 unti l 03/26/2016 documented as of this encounter Procedures Procedure Name Priority Date/Time Associated Diagnosis Comme nts OPEN REDUCTION 03/26/2016 1:24 PM CARAMEL CUTTER HELPER Distal radius fr acture INTERNAL FIXATION RADIUS DISTAL documented in this encounter Visit Diagnoses Not on filedocumented in this encounter Administered Medications Inactive Administered Medications - up to 3 most recent administrations Medication Order MAR Action Action Date Dose Rate Site fentaNYL (SUBLIMAZE) injection Given 03/26/2016 11:15 AM CARAMEL CUTTER HELPER 25 mcg 25-50 mcg 25-50 mcg, Intravenous, [id number], Other, Moderate to Severe Pain (pain score 5 and above) in the immediate postop period when faster on-set, short acting agent is desired., Starting on Julia 03/26/16 at 1127, Until Julia 03/26/16 at 1727, Administer every 5 minutes as needed, to a maximum cumulative dose of 250 mcg. For patients with a regional, spinal, or local anesthetic, may give for anticipated pain as the anesthetic wears off., PACU/Recovery midazolam (VERSED) injection 1-2 mg Given 03/26/2016 11:15 AM CARAMEL CUTTER HELPER 2 mg 1-2 mg, Intravenous, ONCE, On Julia 03/26/16 at 1200, For 1 dose, Pre-op documented in this encounter Active and Recently Administered Medications Times are shown in CARAMEL CUTTER HELPER. Scheduled Medication Order 03/24/2016 03/25/2016 03/26/2016 ceFAZolin (aka ANCEF) 2 g in dextrose 100 ml IVPB (COMPLETED) 1320 (Given - Provider: Casper Calzada APRN, ENGINEERING ADMINISTRATOR) 2 g, Intravenous, Administer over 30 Min utes, ONCE, On Julia 03/26/16 at 1045, For 1 dose, Infuse within 60 minutes prior to incision; Re-dose 1 gram IV every 4 hours after initial dose until incision closed., Pre-op midazolam (VERSED) injection 1-2 mg (COMPLETED) 1115 (Given - Provider: Silverio Bañuelos, ANTONIA) 1-2 mg, Intravenous, ONCE, On Julia 03/26/16 at 1200, For 1 dose, Pr e-op Continuous Medication Order 03/24/2016 03/25/2016 03/26/2016 lactated ringers infusion (CANCELED) 1039 (Started - Provider: Casper Calzada APRN, ENGINEERING ADMINISTRATOR)1432 (Anesthesia Fluid - Provider: Casper Calzada APRN, WILNER) Intravenous, at 30 mL/hr, CONTINUOUS, Starting on Julia 03/26/16 at 1200, Pre-op PRN Medication Order 03/24/2016 03/25/2016 03/26/2016 fentaNYL (SUBLIMAZE) injection 25-50 mcg (CANCELED) 1115 (Given - Provider: Silverio Bañuelos RN) 25-50 mcg, Intravenous, [id number], Other, Moderate to Severe Pain (pain score 5 and above) in the immediate postop period when faster on-set, short acting agent is desired., Starting on Julia 03/26/16 at 112 7, Until Julia 03/26/16 at 1727, Administer every 5 minutes as needed, to a maximum cumulative dose of 250 mcg. For patients with a regional, spinal, or local anesthetic, may give for anticipated pain as the anesthetic wears off., PACU/Recovery documented in this encounter Care Teams Machine Operators Relationship Specialty Start Date End Date Bj Pelletier MD PCP - General 05/19/[address] [facility], [address] documented as of this encounter
--- OUTSIDE RECORDS SUMMARY | 2021-12-03 11:45 | XMS_ITS | Encounter Summary ---
:1955 Author Organization [facility] Address [address] [place] [address] Care Team Providers Name Role Phone Bj Pelletier MD Primary Care Provider Unavailable Encounter Details Date Type Department Care Team Description 11/28/2015 Imaging [facility] MRI Ronald Chapman MD Hand injury, right, initial encounter; [address] [facility] Right knee pain, unspecified chronicity [place], [place] [address] [place] [address] [phone] (Wo rk) Social History Tobacco Use Types [...] Comme nts MR KNEE RT WO IV Routine 11/28/2015 10:11 AM Hand injury, righ t, Results for this CONT CDT initial encounte r procedure are in Right knee pain, the results unspecified section. chronicity documented in this encounter Results MR Knee Rt WO IV Cont (11/28/2015 10:11 AM CDT) Anatomical Region Laterality Modality Lower Extremity, Knee, Skeletal, Thigh, Leg Right Magnetic Resonance Specimen (Source) Anatomical Collection Method Collection Time Re ceived Time Location / / Volume Laterality 11/28/2015 10:02 AM CDT Impressions 11/28/2015 10:31 AM CDT IMPRESSION: ?? 1. Full-thickness loss of lateral patell ofemoral cartilage with associated subchondral marrow edema/developing cystic change. Full-thickness loss involving patellar cartilage extending to the median ridge as well. 2. Posterior foreign medial meniscus tea r. 3. Findings suspicious for tear at the f ree edge of the body of the lateral meniscus. 4. Small joint effusion and popliteal cy st. Narrative 11/28/2015 10:31 AM CDT TECHNIQUE: ??Routine MRI of the right knee was performed without contrast. COMPARISON: ??None. FINDINGS: MEDIAL COMPARTMENT: ??There are no focal cartilage defects. Abnormal essentially linear signal within the horn medial meniscus at its mid to peripheral aspect approximating superior and inferior articular surfaces and the free edge suggesting tear. LATERAL COMPARTMENT: ??Thinning central lateral tibial cartilage slight heterogeneity of adjoining lateral femoral cartilage. Mild linear proton density signal approximating the free edge the body seri es 6 slice 17 suspicious for tear. Mild likely intrasubstance degenerative change inner portion of the posterior horn lateral meniscus. PATELLOFEMORAL JOINT: ??Full-thickness l oss of lateral patellar cartilage extending the median ridge. Full-thickness loss of adjoining lateral trochlear cartilage. Subchondral marrow edema/developing cy stic change joint space narrowing at the lateral patellofemoral joint. Small joint effusion and popliteal cyst. No osteocartilaginous loose body confirmed. LIGAMENTS AND TENDONS: ??The anterior an d [...] retinaculum are normal. MARROW AND SOFT TISSUES: ??Marginal oste ophyte formation about the knee. Subchondral marrow edema/cystic change lateral patellofemoral compartment. Some mild mottled increased T2 signal lateral tibial p lateau may largely be physiologic. No so ft tissue mass identified. Mild edema subcutaneous fat anterior to the patella and patellar tendon. Procedure Note Andre Jorgensen MD - 11/28/2015Formatt ing of this note might be different from the original. TECHNIQUE: Routine MRI of the right knee was performed without contrast. COMPARISON: None. FINDINGS: MEDIAL COMPARTMENT: There are no focal c artilage defects. Abnormal essentially linear signal within the horn medial meniscus at its mid to peripheral aspect approximating superior and inferior articular surfaces and the free edge suggesting tear. LATERAL COMPARTMENT: Thinning central l ateral tibial cartilage slight heterogeneity of adjoining lateral femoral cartilage. Mild linear proton density signal approximating the free edge the body series 6 slice 17 suspicious for tear. Mild likely intrasu bstance degenerative change inner portion of the posterior horn lateral meniscus. PATELLOFEMORAL JOINT: Full-thickness los s of lateral patellar cartilage extending the median ridge. Full-thickness loss of adjoining lateral trochlear cartilage. Subchondral marrow edema/developing cystic change joint space narrowing at the lateral pat ellofemoral joint. Small joint effusion and popliteal cyst. No osteocartilaginous loose body confirmed. LIGAMENTS AND TENDONS: The anterior and posterior [...] retinaculum are normal. MARROW AND SOFT TISSUES: Marginal osteop hyte formation about the knee. Subchondral marrow edema/cystic change lateral patellofemoral compartment. Some mild mottled increased T2 signal lateral tibial plateau may largely be physiologic. No soft tissue mass iden tified. Mild edema subcutaneous fat anterior to the patella and patellar tendon. IMPRESSION IMPRESSION: 1. Full-thickness loss of lateral patell ofemoral cartilage with associated subchondral marrow edema/developing cystic change. Full-thickness loss involving patellar cartilage extending to the median ridge as well. 2. Posterior foreign medial meniscus tea r. 3. Findings suspicious for tear at the f ree edge of the body of the lateral meniscus. 4. Small joint effusion and popliteal cy st. Ronald Chapman MD RAD MRI documented in this encounter Visit Diagnoses Diagnosis Hand injury, right, initial encounter Right knee pain, unspecified chronicity documented in this encounter Care Teams Director Talent Relationship Specialty Start Date End Date Bj Pelletier MD PCP - General 05/19/[address] [facility], [address] documented as of this encounter
--- OUTSIDE RECORDS SUMMARY | 2021-12-03 11:45 | XMS_ITS | Encounter Summary ---
:1955 Author Organization [facility] [place] Address [address] [place] [address] Care Team Providers Name Role Phone Bj Pelletier MD Primary Care Provider Unavailable Reason for Visit Reason Onset Date Comments INCISION DRAINING 04/21/2016 Encounter Details Date Type Department Care Team Description 04/21/2016 Telephone [facility] Lili Parrish MD INCISION DRAINING [address] [facility] [place] [address] [place] [address] [phone] (Wo rk) Social History Tobacco Use Types Packs/Day Years Used Date Smoking Tobacco: Never Smokeless Tobacco: Never Alcohol Use Standard Drinks/Week Comments Yes 0 (1 standard drink = 0.6 oz pure alcoho l) 2-3 glasses of wine per week Sex Assigned at Date Recorded Female 10/03/2020 11:17 AM CDT documented as of this encounter Nursing Notes Rosio Torre, RN - 04/21/2016 4:08 PM CST Pt presented to clinic to HDT. While there, i was asked to look at pt's incision. She is s/p Open Reduction Internal Fixation Right Distal Radius Fracture. The incision is well approximated and healed. There is a small open area at the distal end of the incision. The therapist was able to get a small amount of blood out of this. However, there was no drainage when i looked at this. Pt c/o being tender in the splint, with movement or to touch. However, there is no pain at rest. Advised to watch for an absorbable stitch that may be trying to work its way out. Watch for s/s of infection. Cover the area lightly with a bandage for protection or leave open to air when able. Pt verbalized understanding and agreed to this plan. Advised to call back with further questions or concerns to [phone]. RIOR DESIGN PROGRAM CHAIR documented in this encounter Plan of Treatment Not on filedocumented as of this encounter Visit Diagnoses Not on filedocumented in this encounter Care Teams Registered Nurse Maternal Child Relationship Specialty Start Date End Date Bj Pelletier MD PCP - General 05/19/[address] [facility], [address] documented as of this encounter
--- OUTSIDE RECORDS SUMMARY | 2021-12-03 11:45 | XMS_ITS | Encounter Summary ---
:1955 [facility] Address [address] [place] [address] Care Team Providers Name Role Phone Bj Pelletier MD Primary Care Provider Unavailable Reason for Visit Procedure/Equipment (Routine) - Incomplete Specialty Diagnoses / Procedures Referred By Contact Refer red To Contact Diagnoses S/P orthopedic surgery, follow-up exam Lili Nunez MD Procedures XR Wrist Rt 3+ Views [address] [facility] [address] [place] [address] Referral ID Status Reason Start Date Expiration Date Visits V isits Requested Authorized [id number] Incomplete 05/13/2016 08/12/2017 1 1 Encounter Details Date Type Department Care Team Description 05/13/2016 Imaging [facility] Lili Nunez MD [address] [facility] [place] [address] [place] [address] [phone] (Wo rk) Social History Tobacco Use Types [...] Date/Time Associated Diagnosis Comme nts XR WRIST RT 3+ Routine 05/13/2016 2:59 PM status-post right Re sults for this VIEWS CDT ORIF extra-articular procedu re are in distal radius the results fracture completed section. on 03/26/2016 documented in this encounter Results XR Wrist Rt 3+ Views (05/13/2016 2:59 PM CDT) Anatomical Region Laterality Modality Upper Extremity, Wrist Radiographic Imag ing Specimen (Source) Anatomical Location Collection Method / Collectio n Time Received Time / Laterality Volume Narrative 05/13/2016 4:33 PM CDT Radiographs of the right wrist - 3 views (05/13/2016): Distal radius fracture transfixed by heavenly te and screws with overall acceptable alignment and positioning. 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 Lili Nunez MD RAD GD documented in this encounter Visit Diagnoses Not on filedocumented in this encounter Care Teams Keno Terminal Operator Relationship Specialty Start Date End Date Bj Pelletier MD PCP - General 05/19/[address] [facility], [address] documented as of this encounter
--- OUTSIDE RECORDS SUMMARY | 2021-12-03 11:45 | XMS_ITS | Encounter Summary ---
:1955 Author Organization [facility] Address [address] [place] [address] Care Team Providers Name Role Phone Bj Pelletier MD Primary Care Provider Unavailable Reason for Visit Reason Onset Date Comments Appt. Needed 06/02/2016 Encounter Details Date Type Department Care Team Description 06/02/2016 Telephone [facility] Lili Parrish MD Appt. Needed [address] [facility] [address] [facility] [address] [place] [address] [place] [address] [place] [address] [phone] (Wo rk) Social History Tobacco Use Types Packs/Day Years Used Date Smoking Tobacco: Never Smokeless Tobacco: Never Alcohol Use Standard Drinks/Week Comments Yes 0 (1 standard drink = 0.6 oz pure alcoho l) 2-3 glasses of wine per week Sex Assigned at Date Recorded Female 10/03/2020 11:17 AM CDT documented as of this encounter Nursing Notes Rosio Torre RN - 06/02/2016 4:30 PM CDT Called pt. Advised of the message below. She is acceptable to this. Transferred to [facility] in the call center to assist pt in scheduling. Rosio Torre RN - 06/02/2016 12:38 PM CDT ----- Message from Lili Nunez MD sent at 06/02/2016 8:36 AM CDT ----- Pt has osteopenia. I would recommend follow up with the new own the bone pa here at [facility] - can you pls call her and arrange. Thanks Lili ----- Message ----- From: Jaci Holloway MD Sent: 05/27/2016 7:06 PM To: Lili Nunez MD documented in this encounter Plan of Treatment Not on filedocumented as of this encounter Visit Diagnoses Not on filedocumented in this encounter Care Teams Credit Report Checker Relationship Specialty Start Date End Date Bj Pelletier MD PCP - General 05/19/[address] [facility], [address] documented as of this encounter
--- OUTSIDE RECORDS SUMMARY | 2021-12-03 11:45 | XMS_ITS | Encounter Summary ---
:1955 Author Organization [facility] Address [address] [place] [address] Care Team Providers Name Role Phone Bj Pelletier MD Primary Care Provider Unavailable Reason for Visit Reason Comments Dysuria Encounter Details Date Type Department Care Team Description 03/08/2012 Office Visit [facility] [address] Octavio Moses MD Right renal mass (Primary Dx); Urology [address] Urethral syndrome NOS [address] [place] [address] [phone] Social History Tobacco Use Types Packs/Day Years Used Date Smoking Tobacco: Never Assessed Sex Assigned at Date Recorded Female 10/03/2020 11:17 AM CDT documented as of this encounter Progress Notes Octavio Moses MD - 03/08/2012 4:52 PM CST This office note has been dictated. Octavio Moses MD - 03/08/2012 4:52 PM CST Progress Notes signed by Octavio Moses MD at 03/11/12 0734 Author: Octavio Moses MD Service: (none) Author Type: Physician Filed: 03/11/12 0734 Note Time: 03/08/121651 Status: Signed Clinical Documentation Nurse: Octavio Moses MD (Physician) NAME: MEGAN WILD MR#: [id number] CSN: [id number] AUTHENTICATING CLINICIAN: Gustavo Moses MD CONFIRM #: [id number] LOC: 417 CLINIC PROGRESS NOTE DATE OF VISIT: 03/08/2012 : 1955 SUBJECTIVE: This 56-year-old, white female, came in with her to discuss treatment options for her recently found right renal mass. The patient has quite a few questions and her also has a few questions. We talked about options. Option number one is right partial nephrectomy. Number two is laparoscopic cryoablation. Number three is observation. The standard treatment is partial nephrectomy. Her also brought up the question of a robotic partial nephrectomy. I advised them that my two younger partners, Dr. Youngblood and Dr. Cowan, both are good with robotic procedures and they have done partial nephrectomy. I will be glad to refer her to one of them for this discussion. The patient is totake a spring break for a vacation, and she said she will let me know what her decision is. If she is to have surgery, she prefers to have surgery done in early May. We also discussed surveillance. In that case, she needs CT scan every 6 months. We answered all their questions and the patient will get back to me regarding their decision. Total visit time is a little over 15 minutes, all for counseling. DIAGNOSIS: Right renal mass, most likely renal cell cancer. GZ:MEDQ C: CONFIRM #: [id number] TRY PRINTER documented in this encounter Plan of Treatment Not on filedocumented as of this encounter Visit Diagnoses Diagnosis Right renal mass - Primary Unspecified disorder of kidney and urete r Urethral syndrome NOS (HRC) Urethral syndrome NOS documented in this encounter Care Teams Sample Collector Relationship Specialty Start Date End Date Bj Pelletier MD PCP - General 05/19/[address] [facility], [address] documented as of this encounter
--- OUTSIDE RECORDS SUMMARY | 2021-12-03 11:45 | XMS_ITS | Encounter Summary ---
:1955 [facility] Address [address] [place] [address] Care Team Providers Name Role Phone Bj Pelletier MD Primary Care Provider Unavailable Reason for Visit Reason Comments Physical Therapy Encounter Details Date Type Department Care Team Description 06/30/2016 Office Visit [facility] Joyce Otero, Chroni c pain of right knee (Primary Dx); Center, Physical PT Muscle weakness Therapy [address] [facility] [address] [facility]. [place], [place]. [address] [place], [place] [address] [phone] Social History Tobacco Use Types Packs/Day Years Used Date Smoking Tobacco: Never Smokeless Tobacco: Never Alcohol Use Standard Drinks/Week Comments Yes 0 (1 standard drink = 0.6 oz pure alcoho l) 2-3 glasses of wine per week Sex Assigned at Date Recorded Female 10/03/2020 11:17 AM CDT documented as of this encounter Progress Notes Joyce Otero, PT - 06/30/2016 2:35 PM CDT [facility] Physical Therapy Daily Note Visit Number: 2 Shemarvel Initial Certification Period: 05/26/2016 to 08/24/16 Referring [...] at work). Boxing. 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 Painful going up stairs. Feels better when she does herexercises. Does have swelling on R knee and worse after walking. OBJECTIVE: Today???s Findings: Observation/Gait: WNL. States she feels tight R posterior knee Edema: Mild R knee. + [place] test R knee ROM ([id number]): R: 0-0-142 L: 0-0-152 Joint mobility: Patellar: 1 quadrant medial and lateral. Catch felt on R Flexibility: Mild tightness R IT band Palpation: Tender R lateral PF border and distal IT band Special Tests (+ is a positive finding, - is a negative finding): Patellafemoral Tests: Moving patellar apprehension test: - Patellar tracking: lateral with quad set. OKC: crepitus R>L Functional Tests: Double leg squat: anterior loading, 2/10 pain R lateral PF border TREATMENT TODAY: Therapeutic Exercise (CPT 94063) x 20 minutes: Pt instructed in, demonstrated, and provided handouts for the following exercises to be performed asHEP: Educated in diagnosis with use of knee model and importance of HEP today. Access Code: [email or web address] Supine Bridge with Gluteal Set and Spinal Articulation - 10 reps - 3 sets - 10 hold - 1x daily Sidelying Hip Abduction - 10 reps - 3 sets - 5 hold - 1x daily the stick to quads and IT band Added: Hamstring stretch with belt Neuromuscular re-education (CPT 65189) x 10 minutes: Montgomery taping: Cover roll and then Leukotape applied for lateral to medial tilt, lateral to medial glide, inferior fat pad release, and to perform an anterior translation of the tibia. Instructed in self taping and provided handout. Instructed to take tape off if irritation should occur. Instructed to tape daily, and remove nightly to decrease risk for skin irritation. Test/retest Double leg squat: 2/10 R knee pain before taping // 0/10 after taping Timed Code Treatment Minutes: 30 Total Treatment Minutes: 30 ASSESSMENT: Pt requires cues to perform HEP correctly. Has not used foam roller yet. Had relief of pain while performing a squat while wearing Montgomery tape. Does anterior load knees, but this was corrected before assessing change in pain with tape. PLAN: Plan for next treatment session: Review HEP - progress glut strengthening. Review taping. Planned Intervention/Education: Education, Therapeutic Exercise, Manual Therapy, Neuromuscular Re-education, Self Care/Home Management, Gait Training, Therapeutic Activities, Ice, Vasopneumatic Compression, Iontophoresis with Dexamethasone EXPECTED FUNCTIONAL OUTCOMES/GOALS: HEP/Independent Management: Demonstrate independence with HEP and self- management following each treatment session ADL's: Squat to pepper picker items from floor with minimal/no symptoms in 6 weeks. Ambulation: Ambulate unlimited distances with minimal to no symptoms/limp in 6-8 weeks. Ascend/descend stairs independently with reciprocal pattern with minimal to no symptoms and improvedlower extremity alignment in 6-8 weeks. Therapist: Joyce Otero PT 2:35 PM 06/30/2016 documented in this encounter Plan of Treatment Not on filedocumented as of this encounter Visit Diagnoses Diagnosis Chronic pain of right knee - Primary Muscle weakness Muscle weakness (generalized) documented in this encounter Care Teams C Unix Developer Relationship Specialty Start Date End Date Bj Pelletier MD PCP - General 05/19/[address] [facility], [address] documented as of this encounter
--- OUTSIDE RECORDS SUMMARY | 2021-12-03 11:45 | XMS_ITS | Encounter Summary ---
:1955 [facility] Address [address], [place] [address] Care Team Providers Name Role Phone Bj Pelletier MD Primary Care Provider Unavailable Reason for Visit Reason Comments Questions Encounter Details Date Type Department Care Team Description 02/22/2012 Telephone [facility] [address] Oct[address]io Hill MD Questions [address] [facility] [address] [facility] [place] [address] [place], [place] [phone] (Wo rk) Social History Tobacco Use Types Packs/Day Years Used Date Smoking Tobacco: Never Assessed Sex Assigned at Date Recorded Female 10/03/2020 11:17 AM CDT documented as of this encounter Nursing Notes Octavio Moses MD - 02/22/2012 5:05 PM CST I need to see her. I called her and asked her to come in tomorrow. UM TOUR GUIDE Jaci Luong - 02/22/2012 2:08 PM CST Pt has fu appt tomorrow 02/[address] reports timur and she is wondering if we can go over the results over the phone so she can cancel her appt, or would you still like her to come in? Please call before her appt 2:45pm. [phone]. documented in this encounter Plan of Treatment Not on filedocumented as of this encounter Visit Diagnoses Not on filedocumented in this encounter Care Teams Shoes Salesperson Relationship Specialty Start Date End Date Bj Pelletier MD PCP - General 05/19/[address] [place], [address] documented as of this encounter
--- OUTSIDE RECORDS SUMMARY | 2021-12-03 11:45 | XMS_ITS | Encounter Summary ---
:1955 Author Organization [facility] Address [address] [place] [address] Care Team Providers Name Role Phone Bj Pelletier MD Primary Care Provider Unavailable Reason for Visit Reason Comments Hand Therapy Encounter Details Date Type Department Care Team Description 03/31/2016 Initial Consult [facility] Rosie Grigsby, Closed fracture of distal en d of right radius with routine healing, unspecified fracture morphology, subsequent encounter (Primary Dx); [facility] OTR/L Status post open reduction with internal fixation of fracture [place], [place] [address] [facility] [address] [address] [place], [place] [phone] [address] Social History Tobacco Use Types Packs/Day Years Used Date Smoking Tobacco: Never Smokeless Tobacco: Never Alcohol Use Standard Drinks/Week Comments Yes 0 (1 standard drink = 0.6 oz pure alcoho l) 2-3 glasses of wine per week Sex Assigned at Date Recorded Female 10/03/2020 11:17 AM CDT documented as of this encounter Progress Notes Rosie Grigsby, OTR/L - 03/31/2016 3:48 PM CST Hand Occupational Therapy Evaluation/Plan of Care Initial Certification Period: 03/31/2016 - 06/29/16 Date of : 1955 Referring Provider: Lili Nunez Diagnosis: Right distal radius fracture Orders: Evaluate and treat per accelerated post-operative protocol. Date of Onset: 03/20/16 Cause: She fell on ice Date of Surgery: 03/26/16 Surgery: ORIF right distal radius fracture Hand Dominance: Right PMH/Precautions: Refer to EMR for past medical history, medications, and drug allergies. She has a past medical history of Cancer ([facility]) and PONV (postoperative nausea and vomiting). She was recently treated for melanoma. Describes history of OA of fingers. 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 Functional Limitations: gripping, pinching, carrying, lifting, work/leisure activities, computer useand ADLs. Functional Goals: STG: Patient will be able to use utensils, computer with minimal to no difficulty or pain in 1-2 weeks. LTG: Patient will be able to resume full use of right hand for all ADLS, work, and leisure with minimal to no difficulty or pain in 6-8 weeks. SUBJECTIVE: Patient is 5 days post-operative. She is eager to begin exercise program and wants to also work on finger mobility as she has OA of fingers. OBJECTIVE: Pain: Patient rates resting pain 2/10. Patient rates pain with activity 2/10. Edema: Circumferential measurements in cm: Right Left Wrist crease 16.5 16 AROM: Mild limitation observed with finger ROM. Within 1 cm fingertips to DPC. Right Left Wrist Extension/Flexion 44/30 70/79 Wrist Ulnar/Radial Deviation 20/9 36/19 Supination/Pronation 36/80 85/90 Thumb opposition 8 10 Strength: Deferred secondary to post operative status. Incision: The incision is closed with sutures/steri-strips intact. No drainage or discharge noted today. Sensation: The patient reports their sensation is intact. TREATMENT INTERVENTION: OT Evaluation (16 minutes untimed) Moderate Complexity Occupational Therapy Evaluation CPT 03134 was completed. Occupational profile/history: expanded review of [...] or guardian in agreement with care plan. Therapeutic Exercise CPT 85826 (20 minutes) Exercise: Issued handout, instructed in and performed digit, thumb, wrist and forearm AROM. The patient was instructed to perform the exercises 3-4x/day, 10 repetitions of each exercise. Edema Management: Patient was instructed to keep the affected extremity elevated above their heart as able. Fit with light compression for edema control. Education: The patient was educated on the diagnosis, post-operative precautions and activity restrictions. Application of Short Arm Splint/Orthosis, Static CPT 25579 (20 minutes untimed) A custom thermoplastic volar wrist splint/orthosis was fabricated for the patient. The patient was provided with written instructions on splint/orthosis care. Patient was instructed to wear the splint/orthosis continuously, but may remove for hygiene and prescribed exercises. As tolerated, the patientmay also remove the splint/orthosis for light functional activity including computer use, dressing, eating, and light meal preparation. Patient can don and doff splint/orthosis independently. Timed Code Treatment Minutes: 20 Total Treatment Minutes: 56 ASSESSMENT: Symptoms are consistent with status post ORIF for distal radius fracture. Functional limitations aredue to: Pain, edema, decreased ROM, decreased strength, post-operative restrictions. Rehab prognosis is good to achieve stated goals. Mood, orientation, and behavior were appropriate. Patient was alert and oriented. No apparent barriers to learning observed. PLAN: The patient will return for additional therapy. Discharge is planned as functional outcomes are achieved, progress has reached a plateau or adequate progress is made such that the patient is able to self-manage with their home program. Patient was provided with the clinic number and instructed to callwith any questions or concerns. Next Treatment Session: Check splint/orthosis fit. Progress home exercise program per post-operativeprotocol, add PROM and gentle children's entertainer strengthening. Instruct in scar management techniques as appropriate. Modalities as appropriate. Visit frequency/duration: Patient will be seen 1x/week for 6-8 weeks. Treatment Plan: Accelerated rehabilitation protocol for distal radius fracture treated with ORIF. Splint/orthosis, AROM, AAROM, PROM, strengthening, edema control, scar management, modalities, manual therapy, patient education and training. Therapist Signature: KENYATTA Willett, SANNA #[id number] Visit #1 Payor: [employer] / Plan: [employer] SELF INSURED / Product Type: Commercial / Physician electronic signature indicates review and certification of therapy plan of care. ECTION ENGINEER documented in this encounter Plan of Treatment Not on filedocumented as of this encounter Visit Diagnoses Diagnosis Closed fracture of distal end of right r adius with routine healing, unspecified fracture morphology, subsequent encounte r - Primary Status post open reduction with internal fixation of fracture documented in this encounter Care Teams Cable Cutter And Swager Relationship Specialty Start Date End Date Bj Pelletier MD PCP - General 05/19/[address] [facility], [address] documented as of this encounter
--- OUTSIDE RECORDS SUMMARY | 2021-12-03 11:45 | XMS_ITS | Encounter Summary ---
:1955 Author Organization [facility] Address [address] [place] [address] Care Team Providers Name Role Phone Bj Pelletier MD Primary Care Provider Unavailable Reason for Visit Reason Comments CONSULT Encounter Details Date Type Department Care Team Description 02/05/2012 Initial Consult [facility] [address] Octavio Moses MD Urinary tract infection, site not specif ied (Primary Dx); Urology [address] Urethral syndrome NOS; [address] [facility], [address] [place] [address] [phone] Social History Tobacco Use Types Packs/Day Years Used Date Smoking Tobacco: Never Assessed Sex Assigned at Date Recorded Female 10/03/2020 11:17 AM CDT documented as of this encounter Last Filed Vital Signs Vital Sign Reading Time Taken Comments Blood Pressure 122/66 02/05/2012 9:25 AM KNOCKER OUT Pulse 80 02/05/2012 9:25 AM KNOCKER OUT Temperature - - Respiratory Rate - - Oxygen Saturation - - Inhaled Oxygen Concentration - - Weight - - Height - - Body Mass Index - - documented in this encounter Progress Notes Octavio Moses MD - 02/05/2012 11:41 AM CST Progress Notes signed by Octavio Moses MD at 02/08/12 1434 Author: Octavio Moses MD Service: (none) Author Type: Physician Filed: 02/08/12 1434 Note Time: 02/05/12 1141 Status: Signed Him Coder: Octavio Moses MD (Physician) NAME: MEGAN WILD MR#: [id number] CSN: [id number] AUTHENTICATING CLINICIAN: Gustavo Moses MD CONFIRM #: [id number] LOC: 417 CLINIC PROGRESS NOTE DATE OF VISIT: 02/05/2012 : 1955 This is a 56-year-old white female is a new patient to me. The reason for this visit is persistent UTI-like symptoms or urethral syndrome, requesting urethral dilation and followup of other urologic issues. This patient had been seen by a urologist in [facility]. She has undergone periodic urethral dilation to relieve her UTI-like symptoms for many years. She typically has urethral dilation oncea year, but after her urologists had retired the current urologist has declined to perform the procedure. That is the reason the patient has changed her care here. Her symptoms include pressure and discomfort in the lower abdomen and in the pelvic area, some slow stream, and just general heaviness or discomfort. Another issue is right ureter injury. In the year 2006, she underwent a laparoscopic hysterectomy and the right ureter was injured. The patient had a CT scan in year 2006, which showed significant dilation of the renal pelvis and ureter. She had a ureteral stent placed for 6 weeks but has not had a followup CT scan. Her most recent creatinine is 0.9 in November this year. The patient has mild stress urinary incontinence but she does not need to wear a pad. PAST MEDICAL HISTORY: GERD. PAST SURGICAL HISTORY: Hysterectomy and BSO, hernia repair twice and nephrostomy tube after ureteral injury and tubal ligation. CURRENT MEDICATIONS: Reviewed per [facility]. SOCIAL HISTORY: She is , 3 children. Nonsmoker and social drinker. 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 FAMILY HISTORY: Mother from ovarian cancer at age 74. Maternal grandmother had breast cancer. Her son had testicle cancer but cured. REVIEW OF SYSTEMS: A 12-point review of systems performed. The main problem is difficulty with urination and persistentUTI-like symptoms. Occasionally short of breath. The remainder of a comprehensive review of systems negative. PHYSICAL EXAM: GENERAL APPEARANCE: She is pleasant, good general condition, no acute distress. No neck adenopathy or thyromegaly. ABDOMEN: Soft, nontender. No palpable mass, inguinal hernia or adenopathy. PELVIC: No significant cystocele or rectocele. The vaginal vault is well supported. EXTREMITIES: No leg edema, and motor function in both legs are normal. ASSESSMENT: I talked with her about the controversies of urethral dilation, but I am a believer. I have many patients who come in for this type of procedure and usually it has a very good symptomatic relief after the procedure. We then proceeded with urethral dilation. With 2% lidocaine jelly 10 mL was injected to the urethra. I dilated the urethra from 18-Cymro sound all the way to 28-Cymro sound. She tolerated the procedure well. I gave her dose of Cipro. We willschedule a CT scan with urology protocol and will see her afterwards. Her creatinine should be good from November which is 0.9. DIAGNOSES: 1. Urethral syndrome. 2. History of right hydronephrosis. GZ:MEDQ C: CONFIRM #: [id number] KER OUT Octavio Moses MD - 02/05/2012 9:45 AM CST This office note has been dictated. BP 122/66 Pulse 80 documented in this encounter Plan of Treatment Not on filedocumented as of this encounter Procedures Procedure Name Priority Date/Time Associated Diagnosis Comme nts CT ABD PELVIS W/WO Routine 02/10/2012 11:55 AM Urinary tract R esults for this IV CONT KNOCKER OUT infection, site not procedur e are in specified the results Urethral syndrome section. NOS ([facility]) Hydronephrosis documented in this encounter Results CT Abd Pelvis W/WO IV Cont (02/10/2012 11:55 AM KNOCKER OUT) Anatomical Region Laterality Modality Abdomen, Pelvis Other Specimen (Source) Anatomical Location Collection Method / Collectio n Time Received Time / Laterality Volume Impressions 02/10/2012 12:54 PM KNOCKER OUT IMPRESSION: ??Small, solid appearing lesion arising from the lower pole of the right kidney. ??No other karthik picious findings. ? Narrative 02/10/2012 12:54 PM KNOCKER OUT COMPARISON: ??None. ? TECHNIQUE: ??Images were obtained throug h the abdomen and pelvis both before and after the uncomplicated admin istration of 100 mL intravenous Optiray. A urology protocol was followed. ? FINDINGS: ??Limited images through the l jacqueline bases are unremarkable. ?? There are no renal, ureteral or bladder calculi. There is a solid appearing, exophytic lesion arising from the lower pole of the right kidney which measures 12 x 12 x 10 mm. ? ?This demonstrates peripheral, and to a lesser extent, central, enhance ment and is nonspecific. ?? Otherwise, post contrast images demonstr ate normal, symmetric enhancement of the kidneys. ??Delayed im ages demonstrate no filling defects in the upper collecting systems, ureters or urinary bladder. ?? The left ureter is not well opacified. ? Elsewhere, the spleen, pancreas, gallbla dder, and adrenal glands are unremarkable. ??There are a few, subcent imeter, hypodense lesions within the liver, most consistent with c ysts. ??The liver is otherwise unremarkable. ??Visualized bowel , inclu ding the appendix,is unremarkable. There is no adenopathy, fr ee fluid, or acute inflammatory change in the abdomen or pe lvis. ??The uterus is not identified and is likely surgically abse nt. ?? Procedure Note Arelis Arriaga MD - 08/01/2015Formattin g of this note might be different from the original. COMPARISON: None. TECHNIQUE: Images were obtained through the abdomen and pelvis both before and after the uncomplicated admin istration of 100 mL intravenous Optiray. A urology protocol was followed. FINDINGS: Limited images through the carolyn g bases are unremarkable. There are no renal, ureteral or bladder calculi. There is a solid appearing, exophytic lesion arising from the lower pole of the right kidney which measures 12 x 12 x 10 mm. T his demonstrates peripheral, and to a lesser extent, central, enhance ment and is nonspecific. Otherwise, post contrast images demonstr ate normal, symmetric enhancement of the kidneys. Delayed imag es demonstrate no filling defects in the upper collecting systems, ureters or urinary bladder. The left ureter is not well opacified. Elsewhere, the spleen, pancreas, gallbla dder, and adrenal glands are unremarkable. There are a few, subcentim eter, hypodense lesions within the liver, most consistent with c ysts. The liver is otherwise unremarkable. Visualized bowel , includi ng the appendix,is unremarkable. There is no adenopathy, fr ee fluid, or acute inflammatory change in the abdomen or pe lvis. The uterus is not identified and is likely surgically abse nt. IMPRESSION IMPRESSION: Small, solid appearing lesio n arising from the lower pole of the right kidney. No other suspi cious findings. Octavio Moses MD RAD CT documented in this encounter Visit Diagnoses Diagnosis Urinary tract infection, site not specif ied - Primary Urethral syndrome NOS ([facility]) Urethral syndrome NOS Hydronephrosis documented in this encounter Care Teams Salesperson Art Objects Relationship Specialty Start Date End Date Bj Pelletier MD PCP - General 05/19/[address] [facility], [address] documented as of this encounter
--- OUTSIDE RECORDS SUMMARY | 2021-12-03 11:45 | XMS_ITS | Encounter Summary ---
:1955 Author Organization [facility] Address [address] [place], [place] [address] [place] [address] Care Team Providers Name Role Phone Bj Pelletier MD Primary Care Provider Unavailable Reason for Visit Reason Comments WRIST PAIN Right Encounter Details Date Type Department Care Team Description 03/24/2016 Surgical Consult [facility] Lili Nunez Cl osed fracture of CENTER distal end of right [address] [facility] [address] [place], dorsally [place], [place] angulated , initial [id number] encounter (Primary [phone] Dx) (Work) Social History Tobacco Use Types Packs/Day [...] - Inhaled Oxygen Concentration - - Weight 61.2 kg (135 lb) 03/24/2016 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 Lili Nunez MD Hand & Upper Extremity Surgeon Interceptor Operator: Antonia Carrera Please call Antonia for all surgery scheduling and administrative questions at [phone] Hand Nurse: Manny Torre Please contact Manny for all medical related questions at [phone] Medication Requests: Prescriptions are not filled on Weekends or on Weekdays after 3:00PM For all medication refills: Request a refill using MyChart or contact your Pharmacy Schedule Surgery with Antonia CH OPERATORS SUPERVISOR documented in this encounter Progress Notes Lili Nunez MD - 03/24/2016 7:20 AM CST [facility] Consultation 03/24/2016 Chief Complaint: Right Wrist Pain History of Present Illness: Megan العلي 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 The patient reports an injury on 03/20/2016 when she slipped on the ice in her driveway, landing on an outstretched right wrist. She was seen in the [facility] the day after her injuryand was placed in a splint. She denies numbness, tingling, or any significant pain while in the splint. Allergies: Cat hair extract; Sulfa antibiotics; Sulfamethoxazole-trimethoprim; and Tramadol Current Medications: The patient has a current medication list which includes the following prescription(s): acetaminophen-codeine, albuterol sulfate hfa, ascorbic acid, atenolol, b complex, b complex vitamins, cephalexin,fluticasone, hydrochlorothiazide, multi-vitamin, ondansetron. Past Medical History: The patient has a history of melanoma, stage 1; osteoarthritis. Past Surgical History: The patient has a history of hysterectomy (2009); hernia repair (2008, 2011); melanoma removal (2016). Family History: The patient has a family history of cancer in her mother and grandparents; heart disease in her father; arthritis in her father. 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 Non-smoker. Exercises regularly. The General Medical History Form dated 03/24/2016 was updated and reviewed with the patient; this is located in [facility] [place]note 2[place] in [facility]. Review of Systems: No GI issues. A 10-point review is negative except for melanoma, high blood pressure, asthma, and hay fever. Physical Exam: General: A pleasant female of stated age, no acute distress.?? Skin: Intact.?? Neurovascular: Sensation is intact to light touch. There is brisk capillary refill in the digit.?? Right Hand/Wrist: she has diffuse Heberden node formation. Osteoarthritis present in PIP joints as well. She has some stiffness secondary to osteoarthritic change. Imaging: Foreign radiographs of the right wrist - 3 views (03/20/2016): Show a dorsally angulated distal radius fracture. Also present is moderate to advanced STT osteoarthritis of the thumb. I independently reviewed and interpreted the imaging studies above; the results were discussed with the patient and . Assessment: Diagnosis and Associated Orders ICD-10-CM 1. Closed fracture of distal end of right radius, dorsally angulated, initial encounter S52.501A Plan: Treatment options were discussed with the patient.??Open reduction and internal fixation of the right distal radius fracture may be considered. Risks and benefits of surgery were discussed and patient wishes to proceed. She will schedule at a time that is convenient for her. She was placed in a volar splint today. All questions were answered. Scribe Disclosure: Francois Donahue, am serving as a scribe to document services personally performed by Lili Nunez MD at this visit, based upon the provider's statements to me. All documentation has been reviewed by the aforementioned provider prior to being entered into the official medical record. Entered on 03/24/2016 at 8:58 AM. Lili Donahue MD, attest that the above named individual is acting in scribe capacity, has observed my performance of the services performed at this visit and has documented them in accordance with my direction. Entered on 03/24/2016 at 8:58 AM. Lili Nunez MD CH OPERATORS SUPERVISOR documented in this encounter Plan of Treatment Not on filedocumented as of this encounter Visit Diagnoses Diagnosis Closed fracture of distal end of right r adius, dorsally angulated, initial encounter - Primary documented in this encounter Care Teams Knife Glazer Relationship Specialty Start Date End Date Bj Pelletier MD PCP - General 05/19/[address] [facility], [id number] documented as of this encounter
--- OUTSIDE RECORDS SUMMARY | 2021-12-03 11:45 | XMS_ITS | Encounter Summary ---
:1955 Author Organization [facility] Address [address] [place] [address] Care Team Providers Name Role Phone Bj Pelletier MD Primary Care Provider Unavailable Reason for Visit Reason Comments Physical Therapy Therapies (Routine) - Closed Specialty Diagnoses / Procedures Referred By Contact Refer red To Contact Diagnoses Right knee pain, unspecified chronicity Noel Live, PA-C [address] [facility] [place] [address] Referral ID Status Reason Start Date Expiration Date Visits Requ ested Visits Authorized [id number] Closed 05/25/2016 07/24/2016 1 1 Encounter Details Date Type Department Care Team Description 05/26/2016 Initial Consult [facility] and Ed Joyce Otero pain of right knee (Primary Dx); Center, Physical M, PT Muscle weakness Therapy [address] [facility] [address] [facility]. [place], [place] [address] [address] [place], [place] [phone] (Work) [phone] Social History Tobacco Use Types Packs/Day Years Used Date Smoking Tobacco: Never Smokeless Tobacco: Never Alcohol Use Standard Drinks/Week Comments Yes 0 (1 standard drink = 0.6 oz pure alcoho l) 2-3 glasses of wine per week Sex Assigned at Date Recorded Female 10/03/2020 11:17 AM CDT documented as of this encounter Progress Notes Joyce Otero PT - 05/26/2016 2:30 PM CDT Physical Therapy Knee Evaluation/Plan of Care Visit Number: Arabella Villaseñor Initial Certification Period: 05/26/2016 to 08/24/16 Referring Provider: Noel Live MD Diagnosis: ?? Right knee patellofemoral DJD Orders: Evaluate & treat Precautions/Contraindications: none Date of Onset: July 2015 Standardized Functional Score: Knee Outcome Survey: 53/70 = 76%; Sport Activity Scale: 40/55 = 73% (lower scores represent greater disability) History: Method of Injury: Was helping a blind [...] at work). Boxing. 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 Falls in the Past Year: Yes, with injuries - this injury. Past Medical History: See EMR for details regarding past medical history, medications and drug allergies. History pertinent to therapy includes: R femoral hernia surgeries about 5 and 10 years ago (still numbness in low back and anterior hip). Recently had R wrist surgery after her fall in March 2016 and just finished hand therapy. Review of Systems: Reviewed Past Medical History Diagnosis Date ??? Cancer (HRC) ??? PONV (postoperative nausea and vomiting) Past Surgical History Procedure Laterality Date ??? Abdomen surgery hernia ??? Melanoma melanoma removal 2 weeks ago ??? Hysterectomy OBJECTIVE: General: Mood, orientation, behavior were appropriate. Patient was alert and oriented. Observation/Gait: WNL. States she feels tight R posterior knee Edema: none noted ROM ([id number]): R: 0-0-142 L: 0-0-152 Joint mobility: Patellar: 1 quadrant medial and lateral. Catch felt on R Flexibility: Mild tightness R IT band Low Back/SI Screen: NT Neurological Screen: Not performed Strength: sidelying hip abduction: 5/5, glut medius: 3+/5 R, 4/5 L. Prone hip extension: 4/5 B Palpation: Non tender R knee structures Special Tests (+ is a positive finding, - is a negative finding): Meniscus Tests: Reggie's: NT Apley's: - Thessaly's: NT Joint line tenderness: - Patellafemoral Tests: Moving patellar apprehension test: - Patellar tracking: lateral with quad set. OKC: crepitus R>L Proprioception: Single leg stance: WNL Functional Tests: Single leg squat: anterior loading, painfree Double leg squat: anterior loading, painfree TREATMENT TODAY: Physical Therapy Evaluation (CPT 28467): An evaluation was performed. The patient was determined to have low complexity based on history, examination, clinical presentation of the patient and the PT's clinical decision making. The patient was educated on the condition, planned therapy intervention and expectations from treatment. Goals were a collaborative effort of the therapist and patient. Therapeutic Exercise (CPT 57321) x 20 minutes: Pt instructed in, demonstrated, and provided handouts for the following exercises to be performed asHEP: Educated in diagnosis with use of knee model and importance of HEP today. Access Code: [email or web address] Supine Bridge with Gluteal Set and Spinal Articulation - 10 reps - 3 sets - 10 hold - 1x daily Sidelying Hip Abduction - 10 reps - 3 sets - 5 hold - 1x daily the stick to quads and IT band Self Patellar Taping: Lateral to Medial Hyde - 10 reps - 3 sets - 1x daily Neuromuscular re-education (CPT 36818) x 10 minutes: Valentina taping: Cover roll and then Leukotape applied for lateral to medial tilt, lateral to medial glide, inferior fat pad release, and to perform an anterior translation of the tibia. Instructed in self taping and provided handout. Instructed to take tape off if irritation should occur. Instructed to tape daily, and remove nightly to decrease risk for skin irritation. Test/retest [place] better walking with tape on. Then later states, I can't believe better with the tape already. Timed Code Treatment Minutes: 30 Total Treatment Minutes: 45 Plan for next treatment session: Review HEP - progress glut strengthening. Add hamstring stretching?Review taping. Education/Handouts: Diagnosis Education, RICE principles Response to treatment: Decreased pain, Good understanding of HEP ASSESSMENT: Therapist Impression: Pt presents with R knee pain, worse with walking and with doing many stairs. Weak throughout gluts. Crepitus R>L PF joint and lateral tracking. [place] better walking with [place] taping. Then later states, I can't believe better with the tape already. Will walk with tape on tonight and see if she still gets swelling after her walk. Pt will benefit from skilled physical therapy services to address the above functional limitations in order to return to prior level of function. Barriers to Learning: none Rehab Prognosis: Excellent PLAN: Planned Intervention/Education: Education, Therapeutic Exercise, Manual Therapy, Neuromuscular Re-education, Self Care/Home Management, Gait Training, Therapeutic Activities, Ice, Vasopneumatic Compression, Iontophoresis with Dexamethasone PT Frequency/Duration: 1-2 x/week for 6 weeks for a total of 6-8 visits Discharge Plan: Goal achievement, goal achievement with home exercise program or if progress plateaus. Informed Consent: Risks, benefits and alternatives to treatment have been explained. Patient and/or family in agreement with care plan. 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 Ambulation: Ambulate unlimited distances with minimal to no symptoms/limp in 6-8 weeks. Ascend/descend stairs independently with reciprocal pattern with minimal to no symptoms and improvedlower extremity alignment in 6-8 weeks. Evaluation and Plan of Care completed by: Joyce Otero, PT 2:30 PM 05/26/2016 The compliance attorney is completed by the therapist and the referring clinician's electronic signature certifies medical necessity for the plan above. documented in this encounter Plan of Treatment Scheduled Referrals Name Type Priority Associated Diagnoses Order [facility] Physical Therapy Referral Routine Right knee pain, unspeci fied Ordered: 05/25/2016 chronicity documented as of this encounter Visit Diagnoses Diagnosis Chronic pain of right knee - Primary Muscle weakness Muscle weakness (generalized) documented in this encounter Care Teams Lockstitch Lining Maker Relationship Specialty Start Date End Date Bj Pelletier MD PCP - General 05/19/[address] [facility], [address] documented as of this encounter
--- OUTSIDE RECORDS SUMMARY | 2021-12-03 11:45 | XMS_ITS | Encounter Summary ---
:1955 Author [facility] Address [address] [place] [address] Care Team Providers Name Role Phone Bj Pelletier MD Primary Care Provider Unavailable Encounter Details Date Type Department Care Team Description 02/10/[address] [place] [address] [place] [id number] [place] [address] Social History Tobacco Use Types Packs/Day Years Used Date Smoking Tobacco: Never Assessed Sex Assigned at Date Recorded Female 10/03/2020 11:17 AM CDT documented as of this encounter Plan of Treatment Not on filedocumented as of this encounter Visit Diagnoses Not on filedocumented in this encounter Care Teams Patch Setter Relationship Specialty Start Date End Date Bj Pelletier MD PCP - General 05/19/[address] [facility] [address] documented as of this encounter
--- OUTSIDE RECORDS SUMMARY | 2021-12-03 11:45 | XMS_ITS | Encounter Summary ---
:1955 Author [facility] Address [address] [place] [address] Care Team Providers Name Role Phone Bj Pelletier MD Primary Care Provider Unavailable Reason for Visit Reason Comments Hand Therapy Encounter Details Date Type Department Care Team Description 04/14/2016 Office Visit [facility] Rosie Grigsby, Closed fracture of distal en d of right radius with routine healing, unspecified fracture morphology, subsequent encounter (Primary Dx); [address] [facility] OTR/L Status post open reduction with internal fixation of fracture [place], [place] [address] [address] [facility] [phone] [place] [address] (Wo rk) Social History Tobacco Use Types Packs/Day Years Used Date Smoking Tobacco: Never Smokeless Tobacco: Never Alcohol Use Standard Drinks/Week Comments Yes 0 (1 standard drink = 0.6 oz pure alcoho l) 2-3 glasses of wine per week Sex Assigned at Date Recorded Female 10/03/2020 11:17 AM CDT documented as of this encounter Progress Notes Rosie Grigsby, OTR/L - 04/14/2016 4:49 PM CST Hand Occupational Therapy Progress Note Initial Certification Period: 03/31/2016 - 06/29/16 Date of : 1955 Referring Provider: Lili Nunez Diagnosis: Right distal radius fracture Orders: Evaluate and treat per accelerated post-operative protocol. Date of Onset: 03/20/16 Cause: She fell on ice Date of Surgery: 03/26/16 Surgery: ORIF right distal radius fracture Hand Dominance: Left PMH/Precautions: Refer to EMR [...] and does weightlifting and recently started a kickboxing class. Functional Limitations: gripping, pinching, carrying, lifting, work/leisure activities, computer useand ADLs. Functional Goals: STG: Patient will be able to use utensils, computer with minimal to no difficulty or pain in 1-2 weeks. LTG: Patient will be able to resume full use of right hand for all ADLS, work, and leisure with minimal to no difficulty or pain in 6-8 weeks. SUBJECTIVE: Patient says she has been afraid to push herself too much with exercises and has not been doing themall. She has also been wearing splint at work but not at night. OBJECTIVE: Pain: Patient rates resting pain <2/10. Patient rates pain with activity 2/10. Edema: Circumferential measurements in cm: Right Left Wrist crease 16 AROM: Right 04/14/16 Right 04/07/16 Right 03/31/16 Left Wrist Extension/Flexion 55/43 61/33 44/30 70/79 Wrist Ulnar/Radial Deviation 26/11 28/10 20/9 36/19 Supination/Pronation 49/85 45/86 36/80 85/90 Thumb opposition 10 8 8 10 Strength: Right Left Livestock Farmers, elbow at 90 degrees 20 lbs 49 lbs Scar/Incision: The scar is flat and mildly adherent TREATMENT INTERVENTION: Therapeutic Exercise CPT 64176 (30 minutes) Exercise: ?? Hand and forearm dipped in paraffin (5 minutes) ?? Performed and advised her to continue with scar massage and use of gel ?? Performed PROM exercises for wrist and forearm. ?? Instructed and performed light gripping avoiding thumb pinch with spongeball squeezes as she had radial thumb/wrist pain. ?? Recommended splint wear at night and when walking but off during most of day now. ?? Adjusted splint and straps for comfort. Timed Code Treatment Minutes: 30 Total Treatment Minutes: 35 ASSESSMENT: She continues to report sensitivity but this may be related to some protective positioning of UE. She was encouraged to engage hand for light activities as tolerated and to continue with HEP as able. PLAN: The patient will return for additional therapy. Discharge is planned as functional outcomes are achieved, progress has reached a plateau or adequate progress is made such that the patient is able to self-manage with their home program. Patient was provided with the clinic number and instructed to callwith any questions or concerns. Next Treatment Session: Wean from splint and advance HEP to phase 3. Consider pain TNE if sensitivity persists. Visit frequency/duration: Patient will be seen 1x/week for 6-8 weeks. Treatment Plan: Accelerated rehabilitation protocol for distal radius fracture treated with ORIF. Splint/orthosis, AROM, AAROM, PROM, strengthening, edema control, scar management, modalities, manual therapy, patient education and training. Therapist Signature: CAROLINA Booker/Freedom 4:49 PM 04/14/2016 Visit #4 Payor: [facility] GearG[facility]ENTERCur[facility] / Plan: SELF INSURED / Product Type: Commercial / Physician electronic signature indicates review and certification of therapy plan of care. NDER BATCHER documented in this encounter Plan of Treatment Not on filedocumented as of this encounter Visit Diagnoses Diagnosis Closed fracture of distal end of right r adius with routine healing, unspecified fracture morphology, subsequent encounte r - Primary Status post open reduction with internal fixation of fracture documented in this encounter Care Teams Computer Systems Technician Relationship Specialty Start Date End Date Bj Pelletier MD PCP - General 05/19/[address] [facility], [address] documented as of this encounter
--- OUTSIDE RECORDS SUMMARY | 2021-12-03 11:45 | XMS_ITS | Encounter Summary ---
:1955 Author Organization [facility] Address [address] [place] [address] Care Team Providers Name Role Phone Bj Pelletier MD Primary Care Provider Unavailable Reason for Visit Reason Onset Date Comments Provider Orders 11/21/2015 Encounter Details Date Type Department Care Team Description 11/21/2015 Telephone [facility] Nanda Chapman MD Provider Orders [facility] [address] [place] [address] [address] [place], [place] [id number] [place] [address] [phone] Social History Tobacco Use Types Packs/Day Years Used Date Smoking Tobacco: Never Smokeless Tobacco: Never Alcohol Use Standard Drinks/Week Comments Yes 0 (1 standard drink = 0.6 oz pure alcoho l) 2-3 glasses of wine per week Sex Assigned at Date Recorded Female 10/03/2020 11:17 AM CDT documented as of this encounter Nursing Notes Jessica Chapman CMA - 11/21/2015 12:47 PM CDT insurer Suzan called [phone] states order for Left knee MRI was not submitted. Re-routed message to Work Comp dept documented in this encounter Plan of Treatment Not on filedocumented as of this encounter Visit Diagnoses Not on filedocumented in this encounter Care Teams Coppersmith Apprentice Relationship Specialty Start Date End Date Bj Pelletier MD PCP - General 05/19/[address] [facility] [address] documented as of this encounter
--- OUTSIDE RECORDS SUMMARY | 2021-12-03 11:45 | XMS_ITS | Encounter Summary ---
:1955 Author Organization [facility] Address [address] [place] [address] Care Team Providers Name Role Phone Bj Pelletier MD Primary Care Provider Unavailable Reason for Visit Reason Comments Wrist/forearm Pain or Injury right wrist injury when s he fell on Encounter Details Date Type Department Care Team Description 03/21/2016 Office Visit [facility] Otis Crump Commin uted and Urgent Care slightly angulated [address] [facility] [address] [place] [address] DR fracture of distal [place], [place] [address] [place], [place] end of right radius, [address] initial encounter [phone] (Wo rk) (Primary Dx) Social History Tobacco Use Types Packs/Day Years [...] Reading Time Taken Comments Blood Pressure 126/84 03/21/2016 10:20 AM SHEET FED PRINTER Pulse - - Temperature 36.7 ??C (98 ??F) 03/21/2016 10:20 AM SHEET FED PRINTER Respiratory Rate - - Oxygen Saturation - - Inhaled Oxygen Concentration - - Weight 61.2 kg (135 lb) 03/21/2016 10:20 AM SHEET FED PRINTER Height 162.6 cm (5' 4) 03/21/2016 10:20 AM SHEET FED PRINTER Body Mass Index 23.17 03/21/2016 10:20 AM SHEET FED PRINTER documented in this encounter Patient Instructions Patient InstructionsCandis Patel LPN - 03/21/2016 10:[address] Otis Crump MD Sports & Orthopaedic Medicine [facility] Medication Requests: Prescriptions are not filled on Weekends or on Weekdays after 3:00PM For all medication refills: Request a refill using MyChart or contact your Pharmacy [facility] Nurse Line: [phone] Please contact [facility] Nurse line for all medical requests and questions Process Inspector: Marifer Gonzalez Please call Marifer for all administrative questions at [phone] MRI Scheduling: To schedule an MRI at [facility] please call [phone] Diagnosis: Angulated right distal radius fracture Plan: Non-removable short arm splint Ice & elevation as directed Continue Tylenol #3 as needed for pain management Follow up with hand surgeon at [facility] this week. T FED PRINTER documented in this encounter Progress Notes Moriah Thomas - 03/21/2016 12:32 PM SHEET FED PRINTER Addended by: MORIAH THOMAS on: 03/21/2016 12:32 PM Modules accepted: Orders T FED PRINTER Otis Crump MD - 03/21/2016 10:20 AM CST [facility] 03/21/2016 Chief Complaint: Right Wrist Pain History of Present Illness: Megan العلي is a left hand dominant 60 y.o. female who presents for evaluation of right wrist pain. The patient states she slipped on ice and fell last night, 03/20/2016, and fell into her right wrist. She was seen at Urgent Care last night, where XRs revealed the comminuted distal radius fracture. The patient was placed in a splint and given tylenol with codeine which she has not filled. Review of Systems: (+) Right Forearm Pain (-) Fever (-) Rash (-) Numbness (+) Tingling Past Medical History: The patient has no medical history of diabetes. She has a history of arthritis and Myeloma stage 1. Past Surgical History: The patient has no pertinent past surgical history. Social History: The patient presents with her mother. She is a student at [employer]. The patient is taking swim lessons right now. Physical Exam: BP 126/84 mmHg Temp(Src) 36.7 ??C (98 ??F) (Tympanic) Ht 1.626 m (5' 4) Wt 61.236 kg (135 lb) BMI 23.16 kg/m2 Skin: Intact, without erythema or ecchymosis. Neuro: Sensation intact. Cardiovascular: Normal capillary refill. Right Hand/Wrist: Moderate swelling of wrist. Deformity. Tenderness over distal radius. Imaging: Radiographs of the right wrist - 3 views (03/20/2016): from outside clinic Comminuted, slightly angulated, distal radius fracture. I independently reviewed the imaging studies above; the results were discussed with the patient and mother. Assessment: Diagnosis and Associated Orders ICD-10-CM 1. Comminuted and slightly angulated fracture of distal end of right radius, initial encounter S52.501A Plan: Educated the patient and mother regarding her condition and management. After a discussion recommended consult with a surgeon to discuss ORIF versus closed reduction. The patient and mother verbalized understanding. Follow-up with the surgeon. Scribe Disclosure: Koki Donahue, am serving as a scribe to document services personally performed by Otis Crump MD at this visit, based upon the provider's statements to me. All documentation has been reviewed by the aforementioned provider prior to being entered into the official medical record. Entered on 0 03/21/2016 at 10:20 AM. Otis Donahue MD, attest that the above named individual is acting in scribe capacity, has observed my performance of the services performed at this visit and has documented them in accordance with my direction. Entered on 03/21/2016 at 10:20 AM. Otis Crump MD T FED PRINTER documented in this encounter Plan of Treatment Not on filedocumented as of this encounter Visit Diagnoses Diagnosis Comminuted and slightly angulated fractu re of distal end of right radius, initial encounter - Primary documented in this encounter Care Teams Livestock Buyer Relationship Specialty Start Date End Date Bj Pelletier MD PCP - General 05/19/[address] [facility], [address] documented as of this encounter
--- OUTSIDE RECORDS SUMMARY | 2021-12-03 11:45 | XMS_ITS | Encounter Summary ---
:1955 [facility] Address [address] [place] [address] Care Team Providers Name Role Phone Bj Pelletier MD Primary Care Provider Unavailable Reason for Visit Reason Comments Hand Therapy Encounter Details Date Type Department Care Team Description 04/21/2016 Office Visit [facility] Rosie Grigsby, Closed fracture of distal en d of right radius with routine healing, unspecified fracture morphology, subsequent encounter (Primary Dx); [address] [facility] OTR/L Status post open reduction with internal fixation of fracture [place], [place] [address] [address] [facility] [phone] [place] [address] (Wo rk) Social History Tobacco Use Types Packs/Day Years Used Date Smoking Tobacco: Never Smokeless Tobacco: Never Alcohol Use Standard Drinks/Week Comments Yes 0 (1 standard drink = 0.6 oz pure alcoho l) 2-3 glasses of wine per week Sex Assigned at Date Recorded Female 10/03/2020 11:17 AM CDT documented as of this encounter Progress Notes Rosie Grigsby, OTR/L - 04/21/2016 4:04 PM CST Hand Occupational Therapy Progress Note [...] 6-8 weeks. SUBJECTIVE: Patient says she has tried to do more with her exercises but has had pain at the scar with any pressure on it. OBJECTIVE: Pain: Patient rates resting pain <2/10. Patient rates pain with activity 2/10. Edema: Circumferential measurements in cm: Right Left Wrist crease 16.4 16 AROM: Right 04/21/16 Right 04/14/16 Right 04/07/16 Right 03/31/16 Left Wrist Extension/Flexion 60/35 55/43 61/33 44/30 70/79 Wrist Ulnar/Radial Deviation 30/10 26/11 28/10 20/9 36/19 Supination/Pronation 72/85 49/85 45/86 36/80 85/90 Strength: Right Left Knocker Out, elbow at 90 degrees 30 (up from 20) lbs 49 lbs Scar/Incision: The scar is flat and mildly adherent. Pustule at distal end of scar yielded clear, bloody discharge. TREATMENT INTERVENTION: Paraffin Bath Therapy CPT 77782 (5 minutes untimed) Paraffin dip to patient???s hand for 5 minutes. Ultrasound CPT 84215 (6 minutes) Continuous ultrasound at 3mhz for 6 minutes at 1w/cm2 with a large sound head over volar scar. Therapeutic Exercise CPT 20878 (30 minutes) ?? Performed STM to scar. ?? Performed PROM exercises for wrist and forearm. ?? Instructed and performed light gripping avoiding thumb pinch with spongeball squeezes as she had radial thumb/wrist pain. Timed Code Treatment Minutes: 30 Total Treatment Minutes: 41 ASSESSMENT: She continues to report sensitivity at distal end of scar, but this may be suture or other irritation. She was seen by RN who felt there was no sign of infection. She made good progress with motion andstrength today so she was inspired to do more on her own. PLAN: The patient will return for additional [...] splint and advance HEP to phase 3. Visit frequency/duration: Patient will be seen 1x/week for 6-8 weeks. Treatment Plan: Accelerated rehabilitation protocol for distal radius fracture treated with ORIF. Splint/orthosis, AROM, AAROM, PROM, strengthening, edema control, scar management, modalities, manual therapy, patient education and training. Therapist Signature: KENYATTA Booker 4:04 PM 04/21/2016 Visit #5 Payor: [employer] / Plan: SELF INSURED / Product Type: Commercial / Physician electronic signature indicates review and certification of therapy plan of care. IDENTIFICATION SPECIALIST documented in this encounter Plan of Treatment Not on filedocumented as of this encounter Visit Diagnoses Diagnosis Closed fracture of distal end of right r adius with routine healing, unspecified fracture morphology, subsequent encounte r - Primary Status post open reduction with internal fixation of fracture documented in this encounter Care Teams Mortgage Counselor Relationship Specialty Start Date End Date Bj Pelletier MD PCP - General 05/19/[address] [facility], [address] documented as of this encounter
--- OUTSIDE RECORDS SUMMARY | 2021-12-03 11:45 | XMS_ITS | Encounter Summary ---
:1955 Author Organization [facility] Address [address] [place] [address] Care Team Providers Name Role Phone Bj Pelletier MD Primary Care Provider Unavailable Reason for Visit Reason Onset Date Comments Medication Questions 03/27/2016 Encounter Details Date Type Department Care Team Description 03/27/2016 Telephone [facility] LUIS M Lili Parrish MD Medication Questions [address] [facility] [address] [facility] [address] [place] [address] [place], [place] [phone] (Wo rk) Social History Tobacco Use Types Packs/Day Years Used Date Smoking Tobacco: Never Smokeless Tobacco: Never Alcohol Use Standard Drinks/Week Comments Yes 0 (1 standard drink = 0.6 oz pure alcoho l) 2-3 glasses of wine per week Sex Assigned at Date Recorded Female 10/03/2020 11:17 AM CDT documented as of this encounter Nursing Notes Rosio Torre, RN - 04/13/2016 12:10 PM CST Pt has been seen in clinic/HDT since this encounter. Closing this encounter. RIDER Rosio Torre, RN - 03/27/2016 12:37 PM CST Pt calling via . She had surgery yesterday. Did not get a Rx as she had some left over from when this happened. However, she is concerned about the directions. It tells her to take 3 times a day. Sheis also taking advil. She would also like to schedule HDT. Returned call. Advised to call back with further questions or concerns to [phone]. RIDER documented in this encounter Plan of Treatment Not on filedocumented as of this encounter Visit Diagnoses Not on filedocumented in this encounter Care Teams Hogshead Cooper Relationship Specialty Start Date End Date Bj Pelletier MD PCP - General 05/19/[address] [facility], [address] documented as of this encounter
--- OUTSIDE RECORDS SUMMARY | 2021-12-03 11:45 | XMS_ITS | Encounter Summary ---
:1955 Author Organization [facility] Address [address] [place] [address] Care Team Providers Name Role Phone Bj Pelletier MD Primary Care Provider Unavailable Encounter Details Date Type Department Care Team Description 03/03/2012 Notes/Orders [facility] [address] Octavio Moses MD Urinary tract Urology [address] infection, site not [address] specified ([address] [place], [place] Dx) [place] [address] [phone] Social History Tobacco Use Types Packs/Day Years Used Date Smoking Tobacco: Never Assessed Sex Assigned at Date Recorded Female 10/03/2020 11:17 AM CDT documented as of this encounter Plan of Treatment Not on filedocumented as of this encounter Visit Diagnoses Diagnosis Urinary tract infection, site not specif ied - Primary documented in this encounter Care Teams Movie Writer Relationship Specialty Start Date End Date Bj Pelletier MD PCP - General 05/19/[address] [place], [address] documented as of this encounter
--- OUTSIDE RECORDS SUMMARY | 2021-12-03 11:45 | XMS_ITS | Encounter Summary ---
:1955 Author Organization [facility] Address [address] [place] [address] Care Team Providers Name Role Phone Bj Pelletier MD Primary Care Provider Unavailable Reason for Visit Procedure/Equipment (Routine) - Incomplete Specialty Diagnoses / Procedures Referred By Contact Refer red To Contact Procedures Provider, Foreign Images Foreign Image(S) XR [address] [place] [address] Referral ID Status Reason Start Date Expiration Date Visits V isits Requested Authorized [id number] Incomplete 03/21/2016 06/20/2017 1 1 Encounter Details Date Type Department Care Team Description 03/20/2016 Imaging [id number] RADIOLOGY CENTRAL FILM Pro vider, Foreign Images LIBRARY [address] [place] [address] [facility] [place] [address] [place] [address] Social History Tobacco Use Types Packs/Day Years [...] Date/Time Associated Diagnosis Comme nts FOREIGN IMAGE(S) XR Routine 03/20/2016 12:00 AM R esults for this EXTREMITY RT HISTORIC SITES REGISTRAR procedure are i n the results section. documented in this encounter Results Foreign Image(S) XR Extremity Rt (03/20/2016 12:00 AM HISTORIC SITES REGISTRAR) Specimen (Source) Anatomical Location Collection Method / Collectio n Time Received Time / Laterality Volume Narrative PN POCT - 03/21/2016 10:27 AM HISTORIC SITES REGISTRAR These outside images have been uploaded into PACS. If the results were provided, they will be located on the Me norma tab in the patient's chart. Foreign Images Provider RAD NON-REPORTABLES Performing Organization Address City/State/ZIP Code Phon e Number POCT PN POCT documented in this encounter Visit Diagnoses Not on filedocumented in this encounter Care Teams Shallot Packer Relationship Specialty Start Date End Date Bj Pelletier MD PCP - General 05/19/[address] [facility], [address] documented as of this encounter
--- OUTSIDE RECORDS SUMMARY | 2021-12-03 11:45 | XMS_ITS | Encounter Summary ---
:1955 Author [facility] Address [address] [place] [address] Care Team Providers Name Role Phone Bj Pelletier MD Primary Care Provider Unavailable Reason for Visit Reason Comments Hand Therapy Encounter Details Date Type Department Care Team Description 04/10/2016 Office Visit [facility] Lydia Hensley, OTR/L Closed fracture of distal end of right r adius with routine healing, unspecified fracture morphology, subsequent encounter (Primary Dx); [address] [facility] [employer] [address] [facility] [address] Status post open reduction with internal fixation of fracture [place], [place] [address] [place], [place] [phone] (Wo rk) Social History Tobacco Use Types Packs/Day Years Used Date Smoking Tobacco: Never Smokeless Tobacco: Never Alcohol Use Standard Drinks/Week Comments Yes 0 (1 standard drink = 0.6 oz pure alcoho l) 2-3 glasses of wine per week Sex Assigned at Date Recorded Female 10/03/2020 11:17 AM CDT documented as of this encounter Progress Notes Lydia Hensley, OTR/L - 04/10/2016 2:10 PM CST Hand Occupational Therapy Progress Note [...] or pain in 6-8 weeks. SUBJECTIVE: Patient was seen as walk In as wrist was painful and incision was very aggravated. Pt arrived with gauze pad on scar for padding purposes. OBJECTIVE: NO new measurements on 04/10/16 Pain: Patient rates resting pain <2/10. Patient rates pain with activity 2/10. Edema: Circumferential measurements in cm: Right Left Wrist crease 16 (down from 16.5) 16 AROM: Finger AROM now touching DPC with full flexion. Right 04/07/16 Right 03/31/16 Left Wrist Extension/Flexion 61/33 44/30 70/79 Wrist Ulnar/Radial Deviation 28/10 20/9 36/19 Supination/Pronation 45/86 36/80 85/90 Thumb opposition 8 8 10 Strength: Right Left Carpenter/Labor, elbow at 90 degrees 20 lbs 49 lbs Scar/Incision: The incision is closed with sutures/steri-strips intact. TREATMENT INTERVENTION: Therapeutic Exercise CPT 03150 (30 minutes) Exercise: ?? Hand and forearm dipped in paraffin ?? Provided fabrics for desensitization of scar ?? Continue with scar massage and use of gel ?? Replaced the tubigrip sleeve with thicker sleeve with no compression ?? Continue AROM but with PROM exercises make sure pt is able to hold for 10 to 15 seconds with gentle stretch. ?? Light use only and shorter duration ?? Re molded splint and new strap and moleskin applied Education: (5 minutes) The patient was educated on the diagnosis, post-operative precautions and activity restrictions and to limit prolonged use Timed Code Treatment Minutes: 30 Total Treatment Minutes: 35 ASSESSMENT: ?? Sensitive scar and painful wrist Hard to tolerate splint.. PLAN: The patient will return for additional therapy. Discharge is planned as functional outcomes are achieved, progress has reached a plateau or adequate progress is made such that the patient is able to self-manage with their home program. Patient was provided with the clinic number and instructed to callwith any questions or concerns. Next Treatment Session: Check splint and complete HEP Check sensitivity of scar. Visit frequency/duration: Patient will be seen 1x/week for 6-8 weeks. Treatment Plan: Accelerated rehabilitation protocol for distal radius fracture treated with ORIF. Splint/orthosis, AROM, AAROM, PROM, strengthening, edema control, scar management, modalities, manual therapy, patient education and training. Therapist Signature: KENYATTA Fay 2:15 PM 04/10/2016 Visit #3 Payor: [employer] / Plan: SELF INSURED / Product Type: Commercial / Physician electronic signature indicates review and certification of therapy plan of care. RUMENTATION TECHNOLOGIST documented in this encounter Plan of Treatment Not on filedocumented as of this encounter Visit Diagnoses Diagnosis Closed fracture of distal end of right r adius with routine healing, unspecified fracture morphology, subsequent encounte r - Primary Status post open reduction with internal fixation of fracture documented in this encounter Care Teams Worship Leader Relationship Specialty Start Date End Date Bj Pelletier MD PCP - General 05/19/10 [address] [facility] [address] documented as of this encounter
--- OUTSIDE RECORDS SUMMARY | 2021-12-03 11:45 | XMS_ITS | Encounter Summary ---
:1955 Author [facility] Address [address] [place] [address] Care Team Providers Name Role Phone Bj Pelletier MD Primary Care Provider Unavailable Reason for Visit Reason Comments Physical Therapy Encounter Details Date Type Department Care Team Description 07/07/2016 Office Visit [facility] and Ed Joyce Otero, Chroni c pain of right knee (Primary Dx); Center, Physical PT Muscle weakness Therapy [address] [facility] [address] [facility]. [place], [place]. [address] [place], [place] [address] [phone] Social History Tobacco Use Types Packs/Day Years Used Date Smoking Tobacco: Never Smokeless Tobacco: Never Alcohol Use Standard Drinks/Week Comments Yes 0 (1 standard drink = 0.6 oz pure alcoho l) 2-3 glasses of wine per week Sex Assigned at Date Recorded Female 10/03/2020 11:17 AM CDT documented as of this encounter Progress Notes Joyce Otero, PT - 07/07/2016 2:30 PM CDT [facility] [place] [facility] Daily Note Visit Number: 3 [place] Initial Certification Period: 05/26/2016 to 08/24/16 [...] work). 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 Has not been walking as much due to bad weather. Feels tape does help. OBJECTIVE: Today???s Findings: Observation/Gait: WNL. States she feels tight R posterior knee Edema: Mild R knee. + [place] test R knee Not tested today: ROM (lknjhemdy-lab-ckeh): R: 0-0-142 L: 0-0-152 Joint mobility: Patellar: [...] PF border TREATMENT TODAY: Therapeutic Exercise (CPT 75086) x 20 minutes: Pt instructed in, demonstrated, and provided handouts for the following exercises to be performed asHEP: Educated in diagnosis with use of knee model and importance of HEP today. Access Code: [email or web address] Supine Bridge with Gluteal Set and Spinal Articulation - 10 reps - 3 sets - 10 hold - 1x daily Sidelying Hip Abduction - 10 reps - 3 sets - 5 hold - 1x daily (also did standing, as she feels she can do this more often) the stick to quads and IT band Hamstring stretch with belt - pt has not been performing, as she forgot about this one Neuromuscular re-education (CPT 07147) x 10 minutes: Valentina taping: Cover roll and then Leukotape applied for lateral to medial glide B. Instructed in self taping and provided handout. Instructed to take tape off if irritation should occur. Instructed to tape daily, and remove nightly to decrease risk for skin irritation. Timed Code Treatment Minutes: 30 Total Treatment Minutes: 30 ASSESSMENT: Pt is improving overall. Doing well with HEP, but forgot to perform hamstring stretch. Again, carmen felt good with taping today, and continues to feel it is helping, especially when walking. PLAN: Plan for next treatment session: Review HEP - progress glut strengthening. Review taping. Planned Intervention/Education: Education, Therapeutic Exercise, Manual Therapy, Neuromuscular Re-education, Self Care/Home Management, Gait Training, Therapeutic Activities, Ice, Vasopneumatic Compression, Iontophoresis with Dexamethasone EXPECTED FUNCTIONAL OUTCOMES/GOALS: HEP/Independent Management: Demonstrate independence with HEP and self- management following each treatment session. ongoing ADL's: Squat to picking machine operator items from floor with minimal/no symptoms in 6 weeks. pain Ambulation: Ambulate unlimited distances with minimal to no symptoms/limp in 6-8 weeks. Pain, but hasn't tested lately (taping helps) Ascend/descend stairs independently with reciprocal pattern with minimal to no symptoms and improvedlower extremity alignment in 6-8 weeks. Therapist: Joyce Otero, AKASH 2:40 PM 07/07/2016 documented in this encounter Plan of Treatment Not on filedocumented as of this encounter Visit Diagnoses Diagnosis Chronic pain of right knee - Primary Muscle weakness Muscle weakness (generalized) documented in this encounter Care Teams Teacher Learning Disabled Relationship Specialty Start Date End Date Bj Pelletier MD PCP - General 05/19/[address] [facility], [address] documented as of this encounter
--- OUTSIDE RECORDS SUMMARY | 2021-12-03 11:45 | XMS_ITS | Encounter Summary ---
:1955 Author Organization [facility] Address [address] [place] [address] Care Team Providers Name Role Phone Bj Pelletier MD Primary Care Provider Unavailable Encounter Details Date Type Department Care Team Description 09/26/2015 Imaging [facility] Hand injury, right, initial [address] [facility] [address] encounter [place], [place] [address] Social History Tobacco Use Types Packs/Day Years Used Date Smoking Tobacco: Never Assessed Sex Assigned at Date Recorded Female 10/03/2020 11:17 AM CDT documented as of this encounter Plan of Treatment Not on filedocumented as of this encounter Procedures Procedure Name Priority Date/Time Associated Diagnosis Comme nts XR HAND RT 3+ VIEWS Routine 09/26/2015 10:29 AM Hand injury, r ight, Results for this CDT initial encounter procedure are in the results section. documented in this encounter Results XR Hand Rt 3+ Views (09/26/2015 10:29 AM CDT) Anatomical Region Laterality Modality Upper Extremity, Hand Other Specimen (Source) Anatomical Location Collection Method / Collectio n Time Received Time / Laterality Volume Narrative 10/10/2015 8:19 AM CDT Right hand, 3 views: INDICATION: Right hand pain. ASSESSMENT: There is a right proximal 5t h metacarpal subtle lucency, question subtle fracture. No other pathology noted. Procedure Note Ronald Chapman MD - 10/15/2015Formatti ng of this note might be different from the original. Right hand, 3 views: INDICATION: Right hand pain. ASSESSMENT: There is a right proximal 5t h metacarpal subtle lucency, question subtle fracture. No other pathology noted. Ronald Chapman MD RAD GD documented in this encounter Visit Diagnoses Diagnosis Hand injury, right, initial encounter documented in this encounter Care Teams Rfid Manager Relationship Specialty Start Date End Date Bj Pelletier MD PCP - General 05/19/[address] [facility], [address] documented as of this encounter
--- OUTSIDE RECORDS SUMMARY | 2021-12-03 11:45 | XMS_ITS | Encounter Summary ---
:1955 [facility] Address [address] [place] [address] Care Team Providers Name Role Phone Bj Pelletier MD Primary Care Provider Unavailable Encounter Details Date Type Department Care Team Description 03/26/2016 Anesthesia Event [facility] [place] [address] [place] [address] 8100 [facility] Blanca Max APRN, CRNA [address] [place] [address] [place], [place] [address] Anesthesia Record Procedure Summary Procedure Name Responsible Anesthesia Start Anesthesia Stop Time Anesthesiologist Time Open Reduction Tony Anthony MD 03/26/16 1320 03/26/16 14 33 Internal Fixation Right Distal Radius Fracture (Right: Arm Lower) Events Date Time Event Comment 03/26/2016 1034 IV plmt Blanca johnston APRN, CRNA 1039 IV Plmt Comp IV was placed in Preop area by Blanca Corrales APRN, CRNA for administration o f IV fluids, IV antibiotics, and IV pre-op sedation. Patient was cont inuously monitored by Blanca johnston APRN, CRNA during the placement. 1234 1320 An Start 1324 An Start Data 1324 An O2 Probe/BP cuff same ext. 1327 MD/DO Present 1330 An Oxygen Mask Spontaneous res pirations with adequate air exchange. 1339 An Tourn Inflated 250 torr. 1340 Quick Note Incision well to lerated by patient. 1402 An Tourn Deflated 1426 an stop data 1433 An Stop Care transferred . 1433 Care Handoff Note I discussed wi th the receiving nurse and we: 1) Ident ified the patient, monroe family member(s) or patient surrogate 2) Identified th e responsible practitioner 3) Reviewed the pertinent medical history 4) Discussed the surgical/procedu re course 5) Reviewed intra-op anesthe tal management and issues during an esthesia 6) Set expectations for the post-procedure period 7) Allowe d opportunity for questions and ac knowledgement of understanding of report Electronically signed by Casper Calzada APRN, CRNA Name Total midazolam 2 mg/2 mL injection (aka VERSED) 4 mg FENTanyl injection (aka SUBLIMAZE) 2 mL ondansetron injection (aka ZOFRAN) 4 mg ceFAZolin (aka ANCEF) 2 g in dextrose 100 ml IVPB 2 g lactated ringers infusion 525 mL Agents Name O2 Blood No blood administrations on file. Lines, Drains, and Airways Type Details Placement Removal Peripheral IV Placement Date: 03/26/16 0000 by 04/09/16 1527 b y Lda, 03/26/16; Blanca Corrales, Sarita Pre-existing: No; WILNER ARTHUR Inserted by?: WILNER; Size (Gauge): 20 G; Orientation: Left; Site Prep: Alcohol; Local Anesthetic: Injectable; Insertion attempts: 1; Blood draw with insertion?: no; Patient Tolerance: Tolerated well; Met Standard Sterile Barrier Technique: Met Standard Sterile Barrier Technique; Removal Date: 04/09/16; Removal Time: 1527 Incision/Surgical Site 03/26/16; 1340; 03/26/16 1340 by 04/09/16 1527 by Lda, Wrist; Right; Case, Shanika Landry RN Discontinue 04/09/16; 1527 documented in this encounter Social History Tobacco Use Types Packs/Day Years Used Date Smoking Tobacco: Never Smokeless Tobacco: Never Alcohol Use Standard Drinks/Week Comments Yes 0 (1 standard drink = 0.6 oz pure alcoho l) 2-3 glasses of wine per week Sex Assigned at Date Recorded Female 10/03/2020 11:17 AM CDT documented as of this encounter Progress Notes Tony Anthony MD - 04/13/2016 12:32 PM CST Addendum created 04/13/16 1232 by Tony Anthony MD Modules edited: Anesthesia Blocks and Procedures, Clinical Notes Clinical Notes: File: [id number] O STATION MANAGER documented in this encounter Miscellaneous Notes Anesthesia Postprocedure Evaluation - Tony Anthony MD - 03/26/2016 3:45 PM CST [facility] An[facility] Post-op Note Patient: Megan العلي Post-Op Diagnosis: Distal radius fracture Procedure Performed: Procedure(s): Open Reduction Internal Fixation Right Distal Radius Fracture Anesthesia Type: Regional Post-op vital signs: BP 134/72 mmHg Pulse 75 Temp(Src) 98.4 ??F (36.9 ??C) (Tympanic) Resp 16 Ht 5' 3.9 Wt 61.236 kg (135 lb) BMI 23.25 kg/m2 SpO2 96% Pain Score: Preferred Pain Scale: number (Numeric Rating Pain Scale) Pain Rating (0-10): Rest: 0 Post-op assessment: No anesthesia complication. Patient location: Phase 2 Airway Status: Patent Cardiovascular function: Satisfactory Hydration status: Satisfactory PONV: None Level of Consciousness: Awake Fully Participates Postop Assessment: Patient tolerated procedure well. Electronically signed by: Tony Anthony MD 03/26/2016 3:45 PM O STATION MANAGER Anesthesia Preprocedure Evaluation - Tony Anthony MD - 03/26/2016 11:20 AM CST [facility] An[facility] Pre-op Evaluation Procedure: Procedure(s): Open Reduction Internal Fixation Right Distal Radius Fracture HPI: 60 y.o. old female with Distal radius fracture NPO Status: Allergies Allergen Reactions ??? Cat Hair Extract ??? Other PN: LW Other1: -CATS ??? Sulfa Antibiotics Rash ??? Sulfamethoxazole-Trimethoprim PN: LW Reaction: Rash, Generalized ??? Tramadol Nausea Headache Weirdness And sick nasuea, vomiting Past Medical History Diagnosis Date ??? Cancer (HRC) ??? PONV (postoperative nausea and vomiting) Patient Active Problem List Diagnosis ??? Urethral syndrome (HRC) ??? Right renal mass Past Surgical History Procedure Laterality Date ??? Abdomen surgery hernia ??? Melanoma melanoma removal 2 weeks ago ??? Hysterectomy Outpatient Prescriptions Marked as Taking for the 03/26/16 encounter (Hospital Encounter) Medication Sig Dispense Refill ??? ALBUterol sulfate HFA (PROAIR HFA) 108 (90 BASE) MCG/ACT inhaler Inhale 2 Puffs. ??? Ascorbic Acid (VITAMIN C OR) Take 2 tablets by mouth. ??? B Complex tablet Take by mouth. ??? B Complex Vitamins (VITAMIN B COMPLEX OR) Take by mouth daily (every 24 hours). ??? hydrochlorothiazide (ORETIC) 25 MG tablet Take 25 mg by mouth daily (every 24 hours). 3 ??? Multiple Vitamin (MULTI-VITAMIN) tablet Take by mouth. ??? Multiple Vitamins-Minerals (MULTIVITAMIN OR) Take 1 tablet by mouth daily (every 24 hours). 100 13 ??? ondansetron (ZOFRAN ODT) 4 MG disintegrating tablet Take 4-8 mg by mouth. Reported on 03/24/2016 Current Facility-Administered Medications Medication Dose Route Frequency ??? ceFAZolin (aka ANCEF) 2 g in dextrose 100 ml IVPB 2 g Intravenous Once Labs: Lab Results Component Value Date/Time SODIUM 140 09/20/2006 12:25 PM POTASSIUM 4.0 09/20/2006 12:25 PM CHLORIDE 103 09/20/2006 12:25 PM BLOOD UREA NITROGEN 10 09/20/2006 12:25 PM CREATININE SERUM 0.7 09/20/2006 12:25 PM LAB GLUCOSE 100 09/20/2006 12:25 PM Lab Results Component Value Date/Time WHITE BLOOD CELL COUNT 7.6 09/20/2006 12:25 PM HEMOGLOBIN 10.5* 09/29/2006 04:45 AM HEMATOCRIT 37.3 09/20/2006 12:25 PM PLATELET COUNT 275 09/20/2006 12:25 PM No results found for: INR No results found for: HCGQUANT Urine : Urine : Blood Bank: BB BLOOD TYPE (BLOOD GROUP & RH) (no units) Date Value 09/20/2006 O POS N/O BB ANTIBODY SCREEN (no units) Date Value 09/20/2006 NEG EKG: No results found for this or any previous visit. Physical Exam: BP 177/89 mmHg Pulse 89 Temp(Src) 98.3 ??F (36.8 ??C) Resp 16 Ht 5' 3.9 Wt 61.236 kg (135lb) BMI 23.25 kg/m2 SpO2 98% Assessment/Plan: Review of Systems Patient does not have GERD. Patient is not a smoker. The patient denies alcohol use. Patient denies any recent URI. History of PONV: Yes. History of motion sickness: No. Patient denies any personal or family history of anesthesia complications (PONV). Exam Mental Status: Alert and oriented. Mallampati score: I (One). Mouth opening: Normal Thyromental Distance: > 3 finger breadths and Normal Neck Extension: Full Neck Circumference > 40 cm?: no neck circumference greater than 40 cm Previous airway assessment: Previously EASY intubation.,. Current airway assessment:Normal Dentition: Normal. Cardiac Exam: Regular rate and rhythm. Respiratory Exam: Breath sounds clear to auscultation Assessment ASA Status: 2 . Plan Anesthesia type: Peripheral Nerve Block Induction: Maintenance: Postoperative pain management (PONV): Plan for postoperative opioid use PONV Risk Score Peds:0 PONV Risk Score Adult: 4 PONV Prophylaxis (planned):Ondansetron Anesthetic plan, risks, benefits and alternatives discussed with: Patient ASA 2 for HTN, and asthma both well-controlled. H&P Reviewed and Patient examined, no change observed IV access Antibiotics per surgery Electronically signed by: Tony Anthony MD 03/26/2016 11:20 AM O STATION MANAGER Anesthesia Procedure Notes - Tony Anthony MD - 03/26/2016 11:19 AM RADIO STATION MANAGER Associated Order(s): [facility] PERIPHERAL BLOCK Peripheral Block Patient Location: Pre-op Start time: 03/26/2016 11:10 AM End time: 03/26/2016 11:19 AM Procedure Type: Supraclavicular Anesthesiologist:TONY ANTHONY Timeout: Correct Position: yes Correct Site: yes Correct Laterality:yes Correct Patient: yes Correct Procedure:yes Correct Site Marked:yes risks and benefits discussed patient agrees to proceed IV checked site marked anesthesia consent monitors and equipment checked patient identified surgical consent pre-op evaluation timeout performed at surgeon's request Local Anesthetics: Ropivacaine 0.5 % Total Volume (ml): 30 Peripheral Nerve Block: Patient Position: sitting Sterile Prep:Betadine, Mask, Sterile gloves and Hat Monitoring:EKG, continuous pulse oximetry and blood pressure monitoring Procedures:ultrasound guided Local Infiltration: Lidocaine 1% Laterality: right Ultrasound used for needle placement Artery and Nerve Bundle Identified Needle advanced and seen in good position Hydrodistention seen Permanent image stored]Needle:insulated Needle Gauge:21 G Bolus Via:needle Bolus given as slow fractionated injection:Yes Blood aspirated:No Paresthesias: No Bleeding at site:No Complications: none Attestations:I personally performed the procedure. Notes: Local anesthetic injected in divided doses after negative aspiration. No pain, pressure, or paresthesias with injection. O STATION MANAGER documented in this encounter Plan of Treatment Not on filedocumented as of this encounter Procedures Procedure Name Priority Date/Time Associated Comments Diagnosis [facility] PERIPHERAL Routine 04/13/2016 12:32 PM Resul ts for this BLOCK RADIO STATION MANAGER procedure are i n the results section. documented in this encounter Results [facility]ria Peripheral Block (04/13/2016 12:32 PM RADIO STATION MANAGER) Narrative EXTERNAL RESULTS - 04/13/2016 12:32 PM C Tony Johnson MD ? 04/13/2016 12:32 PM Peripheral Block Patient Location: Pre-op Start time: 03/26/2016 11:10 AM End time: 03/26/2016 11:19 AM Procedure Type: Supraclavicular Anesthesiologist:TONY ANTHONY Timeout: Correct Position: yes Correct Site: yes Correct Laterality:yes Correct Patient: yes Correct Procedure:yes Correct Site Marked:yes risks and benefits discussed patient agrees to proceed IV checked site marked anesthesia consent monitors and equipment checked patient identified surgical consent pre-op evaluation timeout performed at surgeon's request Local Anesthetics: Ropivacaine 0.5 % Total Volume (ml): 30 Peripheral Nerve Block: Patient Position: sitting Sterile Prep:Betadine, Mask, Sterile mike ves and Hat Monitoring:EKG, continuous pulse oximetr y and blood pressure monitoring Procedures:ultrasound guided Local Infiltration: Lidocaine 1% Laterality: right Ultrasound used for needle placement Artery and Nerve Bundle Identified Needle advanced and seen in good positio n Hydrodistention seen Permanent image stored]Needle:insulated Needle Gauge:21 G Bolus Via:needle Bolus given as slow fractionated injecti on:Yes Blood aspirated:No Paresthesias: No Bleeding at site:No Complications: none Attestations:I personally performed the procedure. Notes: Local anesthetic injected in divi ded doses after negative aspiration. No pain, pressure, or parest hesias with injection. ?? Tony Anthony MD ANESTHESIA/AR Performing Organization Address City/State/ZIP Code Phon e Number EXTERNAL RESULTS documented in this encounter Visit Diagnoses Not on filedocumented in this encounter Administered Medications Inactive Administered Medications - up to 3 most recent administrations Medication Order MAR Action Action Date Dose Rate Site ceFAZolin (aka ANCEF) 2 g in Given 03/26/2016 1:20 PM RADIO STATION MANAGER 2 g dextrose 100 ml IVPB 2 g, Intravenous, Administer over 30 Minutes, ONCE, On Julia 03/26/16 at 1045, For 1 dose, Infuse within 60 minutes prior to incision; Re-dose 1 gram IV every 4 hours after initial dose until incision closed., Pre-op fentaNYL (aka SUBLIMAZE) injection Given 03/26/2016 1:31 PM RADIO STATION MANAGER 1 mL Starting on Julia 03/26/16 at 1320 Given 03/26/2016 1:20 PM RADIO STATION MANAGER 1 mL lactated ringers infusion Started 03/26/2016 10:39 AM RADIO STATION MANAGER Intravenous, at 30 mL/hr, CONTINUOUS, Starting on Julia 03/26/16 at 1200, Pre-op midazolam (aka VERSED) injection Given 03/26/2016 1:47 PM RADIO STATION MANAGER 1 mg Starting on Julia 03/26/16 at 1320 Given 03/26/2016 1:36 PM RADIO STATION MANAGER 1 mg Given 03/26/2016 1:20 PM RADIO STATION MANAGER 2 mg ondansetron (ZOFRAN) injection Given 03/26/2016 1:58 PM RADIO STATION MANAGER 4 mg Starting on Julia 03/26/16 at 1358, Until Julia 03/26/16 at 1433 documented in this encounter Care Teams Casino Floor Person Relationship Specialty Start Date End Date Bj Pelletier MD PCP - General 05/19/[address] [facility], [address] documented as of this encounter
--- OUTSIDE RECORDS SUMMARY | 2021-12-03 11:45 | XMS_ITS | Encounter Summary ---
:1955 Author [facility] Address [address] [place] [address] Care Team Providers Name Role Phone Bj Pelletier MD Primary Care Provider Unavailable Reason for Referral Procedure/Equipment (Routine) - Incomplete Specialty Diagnoses / Procedures Referred By Contact Refer red To Contact Diagnoses S/P ORIF (open reduction internal fixation) fracture Joey Flores MD Procedures XR Wrist Rt 3+ Views [address] [address] [place] [address] Referral ID Status Reason Start Date Expiration Date Visits V isits Requested Authorized [id number] Incomplete 06/29/2016 09/28/2017 1 1 Reason for Visit Reason Comments Wrist Problem S/P ORIF R wrist Encounter Details Date Type Department Care Team Description 06/29/2016 Surgical Consult [facility] Sandra S/P OR IF (open reduction internal fixation) fracture (Primary Dx); CENTER Joey Mojica MD Osteoporosis, unspecified osteoporosis t ype, unspecified pathological fracture presence [address] [facility] [place] [address] [phone] Social History Tobacco Use Types Packs/Day Years Used Date Smoking Tobacco: Never Smokeless Tobacco: Never Alcohol Use Standard Drinks/Week Comments Yes 0 (1 standard drink = 0.6 oz pure alcoho l) 2-3 glasses of wine per week Sex Assigned at Date Recorded Female 10/03/2020 11:17 AM CDT documented as of this encounter Patient Instructions Patient InstructionsSwJoey johnson MD - 06/29/2016 2:31 PM CDT 1. Start Calcium Citrate 1200mg daily, take with food for best absorption 2. Increase green leafy vegetables in diet 3. Take your Vitamin D year round, keep at current doseage 4. Return to exercise program as able. Yoga, Water Aerobics, Elliptical and biking may feel better for your knee. 5. Repeat DEXA in two years. Your Vitamin D level was drawn today, Supriya Zepeda PA-C will call you with results. documented in this encounter Progress Notes Joey Flores MD - 06/29/2016 4:24 PM CDT SUBJECTIVE: Ms. Carmichael sustained a low energy fall on the ice and underwent ORIF with volar plating of a right distal radius fracture on March 23, [address] Nunez. She is here for a bone health evaluation in the [facility]. Past medical history: The patient underwent a hysterectomy in 04/12 with the ureter stent. She has hypertension and asthma. She has only taken prednisone on 3 occasions. 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 Risk factors: There is no history of illicit drug use, she does not use nicotinic in any form, she is a moderate social drinker, she exercises daily with resistance training or walking. 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 Family health history: Ovary and in breast cancer in grandparents and her mother, heart disease in her father, arthritis in grandparents Adverse Drug Reactions: Reviewed in the EMR Medications: Reviewed. See Medication List in the EMR. OBJECTIVE: Vital Signs: Reviewed; See Flowsheet Charting in EMR. The patient weighs 133 pounds. Examining her wrist reveals 90?? of pronation and supination. She hasa well-healed full her scar. Median and radial and ulnar sensory motor function is intact. She lacks10?? of palmar flexion but has symmetric dorsiflexion. She does have DIP joint arthritis which we discussed in some detail. Bone health laboratories: The patient's calcium is 9.7, her creatinine clearance is 81.4, we did draw a vitamin D level today. Dietary history, the patient does not not consume a large portion of calcium rich foods. She tried calcium supplementation in the past but it was constipating. She takes vitamin D3 in the wintertime at23 international units. She does have some osteoarthritis of the knee. DEXA scan: T score total lumbar spine -1.9 T score total left proximal femur -1.4 T score left femoral neck -1.8 10 year fracture risk according to FRAX is 23% ASSESSMENT: The patient was evaluated by Supriya Zepeda PA-C from the [facility] and we have recommended that she take the vitamin D year round. We also recommended quadriceps strengthening exercises and yoga for preserving balance and in performing the role of increasing her quadriceps strength. We did suggest that the patient would be an appropriate candidate for alendronate but she declines at this point. We are recommending a repeat DEXA scan in 2 years. The patient will be called with the vitamin D results. She will follow-up with Dr. Nunez as indicated and will schedule a repeat DEXA scan in 2 years. PLAN: The patient was discharged ambulatory and in stable condition. *SH~DNS~SOAP Joey Flores MD - 06/29/2016 2:56 PM CDT Left antecubital venipuncture blood draw was performed, 06/29/2016, for vit D testing ordered by Dr. Flores. Patient tolerated procedure well. Samples sent to [facility] electric motor control assembler. documented in this encounter Plan of Treatment Not on filedocumented as of this encounter Procedures Procedure Name Priority Date/Time Associated Diagnosis Comme nts VITAMIN D Routine 06/29/2016 2:50 AM S/P ORIF (open Results for this 25-HYDROXY, TOTAL CDT reduction internal proc edure are in fixation) fractu re the results Osteoporosis, section. unspecified osteoporosis type, unspecified pathological fracture presence documented in this encounter Results XR Wrist Rt 3+ Views (06/29/2016 1:37 PM CDT) Anatomical Region Laterality Modality Upper Extremity, Wrist Radiographic Imag ing Specimen (Source) Anatomical Location Collection Method / Collectio n Time Received Time / Laterality Volume Narrative 07/09/2016 1:12 PM CDT AP, lateral and oblique of right distal radius. ??The locking plate is in stable position. ??Interval healing is n oted. ??The alignment is essentially anatomic. Joey Flores MD RAD GD Vitamin D (In house) (06/29/2016 2:50 AM CDT) athologist Signature Vitamin D 25 Oh 42 20 - 80 PN SOFT ng/mL Comment: Deficiency = <20 Adequate ??= 20-29 Preferred = 30-50 Uncertain safety = 51-80 High = >80 Specimen Anatomical Collection Method Collection Time Receive d Time (Source) Location / / Volume Laterality 06/29/2016 2:50 AM 7 3:50 CDT PM CDT Narrative PN SOFT - 06/29/2016 4:33 PM CDT Performed at [address] [address] CLIA number [id number] Joey Flores MD LAB_1 Performing Organization Address City/State/ZIP Code Phon e Number PN SOFT [address] [place] [phone] documented in this encounter Visit Diagnoses Diagnosis S/P ORIF (open reduction internal fixati on) fracture - Primary Osteoporosis, unspecified osteoporosis t ype, unspecified pathological fracture presence (HRC) S/P ORIF (open reduction internal fixati on) fracture documented in this encounter Care Teams Maritime Pilot Relationship Specialty Start Date End Date Bj Pelletier MD PCP - General 05/19/[address] [place], [address] documented as of this encounter
--- OUTSIDE RECORDS SUMMARY | 2021-12-03 11:45 | XMS_ITS | Encounter Summary ---
:1955 Author Organization [facility] Address [address] [place] [address] Care Team Providers Name Role Phone Bj Pelletier MD Primary Care Provider Unavailable Reason for Referral Procedure/Equipment (Routine) - Incomplete Specialty Diagnoses / Procedures Referred By Contact Refer red To Contact Diagnoses Surgery, elective Lili Nunez MD Procedures TARAS Fluoroscopy Up To 1 Hour [address] [facility] [place] [address] Referral ID Status Reason Start Date Expiration Date Visits V isits Requested Authorized [id number] Incomplete 03/24/2016 06/23/2017 1 1 YTICAL LAB TECHNICIAN Encounter Details Date Type Department Care Team Description 03/24/2016 Notes/Orders [facility] Lili Nunez Surger y, elective CENTER (Primary Dx) [address] [facility] [place] [address] [place] [phone] (Wo rk) Social History Tobacco Use Types [...] on filedocumented as of this encounter Results TARAS Fluoroscopy Up To 1 Hour (03/26/2016 2:13 PM ANALYTICAL LAB TECHNICIAN) Anatomical Region Laterality Modality Computed Radiography Specimen (Source) Anatomical Location Collection Method / Collectio n Time Received Time / Laterality Volume Lili Nunez MD RAD NON-REPORTABLES documented in this encounter Visit Diagnoses Diagnosis Surgery, elective - Primary Unspecified elective surgery for purpose s other than remedying health states documented in this encounter Care Teams Director Of Marketing Operations Relationship Specialty Start Date End Date Bj Pelletier MD PCP - General 05/19/[address] [facility], [address] documented as of this encounter
--- OUTSIDE RECORDS SUMMARY | 2021-12-03 11:45 | XMS_ITS | Encounter Summary ---
:1955 Author Organization [facility] Address [address] [place] [address] Care Team Providers Name Role Phone Bj Pelletier MD Primary Care Provider Unavailable Reason for Visit Reason Comments INJURY, KNEE Encounter Details Date Type Department Care Team Description 09/26/2015 Office Visit TRIRonald Colon MD Hand injury, right, initial encounter (P rimary Dx); Urgent Care [address] [facility] Right knee pain, unspecified chronicity [address] [place], [place] [id number] [phone] (Wo rk) Social History Tobacco Use Types Packs/Day Years Used Date Smoking Tobacco: Never Assessed Sex Assigned at Date Recorded Female 10/03/2020 11:17 AM CDT documented as of this encounter Last Filed Vital Signs Vital Sign Reading Time Taken Comments Blood Pressure 138/82 09/26/2015 10:08 AM CDT Pulse - - Temperature 37 ??C (98.6 ??F) 09/26/2015 10:08 AM CDT Respiratory Rate - - Oxygen Saturation - - Inhaled Oxygen Concentration - - Weight 60.3 kg (133 lb) 09/26/2015 10:08 AM CDT Height 152.4 cm (5') 09/26/2015 10:08 AM CDT Body Mass Index 25.97 09/26/2015 10:08 AM CDT documented in this encounter Patient Instructions Patient InstructionsBecky King RN - 09/26/2015 10:[address] Ronald Chapman MD Sports & Orthopaedic Medicine Acute [facility] Bead Cutter: Adelina Talbert Please contact Adelina for all administrative questions at [phone] Acute Injury Clinic Nurse Line: [phone] Please contact Acute Injury Clinic Nurse line for all requests and questions. Medication Requests: Prescriptions are not filled on Weekends or on Weekdays after 3:00PM For all medication refills: Request a refill using MyChart or contact your Pharmacy MRI Scheduling: To schedule an MRI at [facility] please call [phone] Please schedule a follow up appointment to review your MRI results. documented in this encounter Progress Notes Jessica Chapman CMA - 09/30/2015 9:51 AM CDT Right knee MRI test requires PA due to work comp, sent email Ronald Chapman MD - 09/26/2015 8:33 PM CDT Progress Notes signed by Ronald Chapman MD at 09/30/15 0950 Author: Ronald Chapman MD Service: (none) Author Type: Physician Filed: 09/30/15 0950 Note Time: 09/27/15 07 Status: Signed System Validation Engineer: Ronald Chapman MD (Physician) NAME: MEGAN AYON MR#: [id number] CSN: [id number] AUTHENTICATING CLINICIAN: Ronald Chapman MD CONFIRM #: [id number] LOC: 711 CLINIC PROGRESS NOTE DATE OF VISIT: 09/26/2015 : 1955 Patient is here for evaluation for right 5th metacarpal hand pain, hook of the hamate pain that happened with lifting. She said she felt a sudden sharp pain since 07/29/2015 when she had an injury witha fall and since then any kind of grasping or pulling and tugging activities can cause pain still and she is surprised since it is almost 2 months out and she still has pain in her right hand. She alsogets some discomfort into her knee on and off but that is improving somewhat. Her right knee pain ismore anteriorly and lateral with some swelling on and off and the swelling does not go away for overa day or so but any time she is active she gets swelling again. Denies any locking, but there is some mild catching. Every day activities are difficult with her right knee due to the pain and discomfort. REVIEW OF SYSTEMS: No fevers, rashes or other joint pains. No diabetes. No smoking. ALLERGIES: None. 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 PHYSICAL EXAM: She is alert, in no acute distress. Exam of her right hand shows pain along the 5th metacarpal rightat the base of the 5th metacarpal and mildly at the 4th metacarpal as well. No vascular deficits noted. No neurological deficits noted. She is afebrile. No pain in the snuffbox. No pain in the wrist. Good structures engineer strength noted. Mild pain at the hook of the hamate. Exam of the right knee shows mild effusion. Pain in the lateral joint line that recreates all of her symptoms. Placido's negative. Posteriordrawer and Reggie's is negative. Patellar apprehension and compression test was negative. Varus and valgus stress test showed no laxity or pain. She is afebrile. ASSESSMENT AND PLAN: 1. Right proximal 5th metacarpal contusion versus subtle fracture that is healed, or in the process of healing. Will continue observation, did not think she needed a full hard splint at that point, butshe will continue to observe and protect it from heavy activity and hopefully this will resolve nicely over the next month. 2. Right knee pain thought secondary to lateral meniscal tear. Given the fact it has been going on for months suggested that we have an MRI done for evaluation for a right lateral meniscal tear. RTJ: C: R:09/26/15 20:38 CONFIRM#:[id number] documented in this encounter Plan of Treatment [...] Diagnoses Diagnosis Hand injury, right, initial encounter - Primary Right knee pain, unspecified chronicity Hand injury, right, initial encounter Right knee pain, unspecified chronicity documented in this encounter Care Teams Surface Water Technician Relationship Specialty Start Date End Date Bj Pelletier MD PCP - General 05/19/[address] [facility], [address] documented as of this encounter
--- OUTSIDE RECORDS SUMMARY | 2021-12-03 11:45 | XMS_ITS | Encounter Summary ---
:1955 [facility] Address [address] [place] [address] Care Team Providers Name Role Phone Bj Pelletire MD Primary Care Provider Unavailable Reason for Visit Procedure/Equipment (Routine) - Incomplete Specialty Diagnoses / Procedures Referred By Contact Refer red To Contact Diagnoses S/P orthopedic surgery, follow-up exam Lili Nunez MD Procedures DEXA Bone Density Spine/Hip Including Vertebral Fracture Assessment DEXA Bone Density Spine/Hip [address] [facility] [place], [place] [address] Referral ID Status Reason Start Date Expiration Date Visits V isits Requested Authorized [id number] Incomplete 05/13/2016 08/12/2017 1 1 Encounter Details Date Type Department Care Team Description 05/18/2016 Imaging [facility] Bone Density Lili Nunez MD status-post right ORIF [address] [facility] [address] [facility] extra-articular distal [place], [place] [address] [place] [address] radius fracture [phone] (Wo rk) completed on 03/26/2016 Social History Tobacco Use Types Packs/Day Years [...] Name Priority Date/Time Associated Diagnosis Comme nts DXA BONE DENSITY Routine 05/18/2016 3:31 PM status-post right Results for this SPINE/HIP INC VERT CDT ORIF extra-articular p rocedure are in FX ASSESS distal radius the results fracture completed section. on 03/26/2016 documented in this encounter Results DEXA Bone Density Spine/Hip Including Vertebral Fracture Assessment (05/18/2016 3:31 PM CDT) Anatomical Region Laterality Modality Spine, Hip Other Specimen (Source) Anatomical Location Collection Method / Collectio n Time Received Time / Laterality Volume Narrative 05/27/2016 7:06 PM CDT CLINIC DXA REPORT Patient Name: ??Megan Lorenzo Severiano [place]: ??Jaci Holloway MD Densitometer: ??HoloProduct[employer] Discovery A (S/N [id number]) [facility] BONE5 OSTEOPOROSIS RISK FACTORS FROM PATIENT Q UESTIONNAIRE: ?? The patient is a 60 y.o.female: who is p ostmenopausal since age 52. ?? Reported calcium and vitamin D intake ma y not be adquate. ??The patient has a history of wrist fracture at age 60. ? ? BONE MINERAL DENSITY: Lumbar Spine Vertebrae Included: L1;L2;L3;L4 Bone Mineral Density (gm/cm2): 0.835 T-Score: -1.9 Z-Score: -0.5 Total Hip Bone Mineral Density (gm/cm2): 0.768 T-Score: -1.4 Z-Score: -0.5 Femoral Neck Bone Mineral Density (gm/cm2): 0.649 T-Score: -1.8 Z-Score: -0.5 FRAX 10 year probability major osteoporotic f racture: 23% 10 year probability hip fracture: 3% VERTEBRAL FRACTURE ASSESSMENT: No vertebral fractures from T5 through L 4 ASSESSMENT: 1. Osteopenia with mild low bone density , based on T-score(s) at in all 3 sites 2. Patient is at moderate to high ??risk of fracture, based on age, fracture history, bone mineral density a t all skeletal sites, and presence or absence of other risk factors. RECOMMENDATIONS: ?? 1. Optimize calcium and vitamin D intake 2. Repeat DXA in 2 years FRAX Explanation: The 10 year risks of hip and major osteo porotic fractures (clinical spine, forearm, hip or shoulder fracture) are c alculated by the FRAX algorithm based on femoral neck bone density, age, gender, race/ethnicity, weight, height, previous fracture, parental hip fracture, smoking status, glucocorticoid intake, history of RA, se condary osteoporosis, and high alcohol consumption. FRAX Fracture Risk Categories in terms o f major osteoporotic fractures: < 10% = low fracture risk ? 10% and <15% = mildly increased fractu re risk ? 15% and <20% = moderately increased fr acture risk ? 20% and <30% = high fracture risk ? 30% = very high fracture risk National Osteoporosis Foundation Treatme nt Guideline A clinician may consider FDA-approved me dical therapies in postmenopausal women and men aged 50 years and older, i f one or more of the following is present (clinical correlation required a nd therapy may not always be indicated): 1. The patient has a hip or vertebral fr acture. 2. T-score ? -2.5 at the femoral neck, h ip, or spine after appropriate evaluation to exclude secondary causes. 3. Low bone mass (T-score between -1.0 a nd -2.5 at the femoral neck, hip or spine) and a 10-year probability of a hip fracture ? 3% or a 10-year probability of a major osteoporosis-rela melian fracture ? 20% based on the FRAX scores. Lili Nunez MD RAD DEXA documented in this encounter Visit Diagnoses Diagnosis status-post right ORIF extra-articular d istal radius fracture completed on 03/26/2016 Follow-up examination, following other s urgery documented in this encounter Care Teams Security Investigator Relationship Specialty Start Date End Date Bj Pelletier MD PCP - General 05/19/[address] [facility], [address] documented as of this encounter
--- OUTSIDE RECORDS SUMMARY | 2021-12-03 11:45 | XMS_ITS | Encounter Summary ---
:1955 Author Organization [facility] Address [address] [place] [address] Care Team Providers Name Role Phone Bj Pelletier MD Primary Care Provider Unavailable Encounter Details Date Type Department Care Team Description 03/26/2016 Surgery [facility] PERIOPERATIVE S [facility]CS Lili Hopper MD Open Reduction [address] [facility] Driv e [address] [facility] [address] Internal Fixation [place], [place] [address] [place], [place] Right Distal Radius [phone] Fracture [phone] (Wo rk) Social History Tobacco Use Types [...] Sign Reading Time Taken Comments Blood Pressure 160/76 03/26/2016 11:25 AM STITCH BURNISHER Pulse 75 03/26/2016 11:25 AM STITCH BURNISHER Temperature 36.8 ??C (98.3 ??F) 03/26/2016 10:30 AM STITCH BURNISHER Respiratory Rate 16 03/26/2016 11:25 AM STITCH BURNISHER Oxygen Saturation 98% 03/26/2016 11:25 AM STITCH BURNISHER Inhaled Oxygen Concentration - - Weight 61.2 kg (135 lb) 03/26/2016 10:30 AM STITCH BURNISHER Height 162.3 cm (5' 3.9) 03/26/2016 10:30 AM STITCH BURNISHER Body Mass Index 23.25 03/26/2016 10:30 AM STITCH BURNISHER documented in this encounter Discharge Instructions Discharge InstructionsLili Hopper MD - 03/26/2016 1:15 PM CST Expectations [...] Hopper MD Hand & Upper Extremity Surgeon Stacker And Sorter Operator: Antonia Carrera Please call Antonia for all surgery scheduling and administrative questions at [phone] Hand Nurse: Manny Torre Please contact Manny for all medical related questions at [phone] CH BURNISHER documented in this encounter Medications at Time [...] Hopper MD - 03/26/2016 2:15 PM CST [facility] Operative Note NAME: Megan العلي ENCOUNTER: [id number] DICTATING CLINICIAN: LILI HOPPER MD OPERATIVE REPORT : 1955 DATE OF OPERATION: 03/26/2016 PREOPERATIVE DIAGNOSIS: rightExtra-articular distal radius fracture POSTOPERATIVE DIAGNOSIS: right Extra-articular distal radius fracture PROCEDURE PERFORMED: right Open Reduction Internal Fixation,extra-articular distal radius fracture SURGEON: Lili Hopper M.D. HEALTHCARE ADMINISTRATOR: KIMBERLY Armas ANESTHESIA: Axillary block. ESTIMATED BLOOD LOSS: Minimal. COMPLICATIONS: None IMPLANT: HAND INNOVATIONS VOLAR LOCKING PLATE INDICATIONS FOR PROCEDURE: This is a 60 y.o. female with an extra-articular distal radius fracture. Please see last visit note in epic for details. OPERATIVE FINDINGS: extra-articular distal radius [...] and draped in standard surgical fashion. A [id number]-cause was performed prior to initiation of the [...] patient will follow an accelerated postoperative protocol. CH BURNISHER documented in this encounter Plan of Treatment Scheduled Orders Name Type Priority Associated Diagnoses Order S chedule POCT Glucose: Point of Care Routine Once today st arting now for 1 Occurrences s tarting 03/26/2016 unti l 03/26/2016 documented as of this encounter Procedures Procedure Name Priority Date/Time Associated Diagnosis Comme nts OPEN REDUCTION 03/26/2016 1:24 PM STITCH BURNISHER Distal radius fr acture INTERNAL FIXATION RADIUS DISTAL documented in this encounter Visit Diagnoses Diagnosis Distal radius fracture Other closed fractures of distal end of radius (alone) documented in this encounter Administered Medications Inactive Administered Medications - up to 3 most recent administrations Medication Order MAR Action Action Date Dose Rate Site fentaNYL (SUBLIMAZE) injection Given 03/26/2016 11:15 AM STITCH BURNISHER 25 mcg 25-50 mcg 25-50 mcg, Intravenous, [id number], Other, Moderate to Severe Pain (pain score [...] injection 1-2 mg Given 03/26/2016 11:15 AM STITCH BURNISHER 2 mg 1-2 mg, Intravenous, ONCE, On Julia 03/26/16 at 1200, For 1 dose, Pre-op documented in this encounter Active and Recently Administered Medications Times are shown in STITCH BURNISHER. Scheduled Medication Order 03/24/2016 03/25/2016 03/26/2016 ceFAZolin (aka ANCEF) 2 g in dextrose 100 ml IVPB (COMPLETED) 1320 (Given - Provider: Casper Calzada APRN, CLIENT COORDINATOR) 2 g, Intravenous, Administer over 30 Min [...] 1039 (Started - Provider: Casper Calzada APRN, CLIENT COORDINATOR)1432 (Anesthesia Fluid - Provider: Casper Calzada APRN, CLIENT COORDINATOR) Intravenous, at 30 mL/hr, CONTINUOUS, Starting on Julia 03/26/16 at 1200, Pre-op PRN Medication Order 03/24/2016 03/25/2016 03/26/2016 fentaNYL (SUBLIMAZE) injection 25-50 mcg (CANCELED) 1115 (Given - Provider: Silverio Bañuelos RN) 25-50 mcg, Intravenous, [id number], Other, Moderate to Severe Pain (pain score [...] PACU/Recovery documented in this encounter Care Teams Aed Trainer Relationship Specialty Start Date End Date Bj Pelletier MD PCP - General 05/19/[address] [facility], [address] documented as of this encounter
--- OUTSIDE RECORDS SUMMARY | 2021-12-03 11:45 | XMS_ITS | Encounter Summary ---
:1955 [facility] Address [address] [place] [address] Care Team Providers Name Role Phone Bj Pelletier MD Primary Care Provider Unavailable Reason for Referral Procedure/Equipment (Routine) - Incomplete Specialty Diagnoses / Procedures Referred By Contact Refer red To Contact Diagnoses Recurrent pain of right knee Ronald Chapman MD Procedures Knee support elastic/neoprene ([id number]) [address] [facility] [place], [place] [address] Referral ID Status Reason Start Date Expiration Date Visits V isits Requested Authorized [id number] Incomplete 12/02/2015 03/02/2017 1 1 Reason for Visit Reason Comments Knee Pain or Injury Right knee MRI results Encounter Details Date Type Department Care Team Description 11/28/2015 Office Visit [facility] Orthopedic Ronald Chapman MD Recurrent pain of [facility]gent Care [facility] right knee (Primary [address] [place], [place] Dx) [place], [place] [address] [phone] (Wo rk) Social History Tobacco Use Types [...] - Pulse - - Temperature 36.1 ??C (96.9 ??F) 11/28/2015 11:08 AM CDT Respiratory Rate - - Oxygen Saturation - - Inhaled Oxygen Concentration - - Weight - - Height - - Body Mass Index - - documented in this encounter Patient Instructions Patient InstructionsElzbieta Chi - 11/28/2015 11:[address] Ronald Chapman MD Sports & Orthopaedic Medicine [facility] Medication Requests: Prescriptions are not filled on Weekends or on Weekdays after 3:00PM For all medication refills: Request a refill using Tbrickst or contact your Pharmacy Acute Injury Clinic Nurse Line: [phone] Please contact Acute Injury Clinic Nurse line for all medical requests and questions Food Inspector: Adelina Talbert Please call Marifer for all administrative questions at [phone] MRI Scheduling: To schedule an MRI at [facility] please call [phone] Patellofemoral arthritis Knee sleeve provided today Follow-up with Dr. Chapman as needed documented in this encounter Progress Notes Ronald Chapman MD - 11/28/2015 4:38 PM CDT NAME: MEGAN AYON MR#: [id number] CSN: [id number] AUTHENTICATING CLINICIAN: Ronald Chapman MD CONFIRM #: [id number] LOC: 711 CLINIC PROGRESS NOTE DATE OF VISIT: 11/28/2015 : 1955 Patient is a 60-year-old here for evaluation for right knee MRI results, which shows that she has a small lateral meniscus tear and a small posteromedial meniscus tear as well and a significant amount of full-thickness cartilage loss in all compartments, but mainly in the patellofemoral area. At this point given these findings, discussed with her a Genutrain brace for comfort and protection and a trial of cortisone versus observation. She elected to observe it for now and if the pain were to persist, she would come back in and we could try a cortisone shot as the next treatment option. RTJ:VIK C: R:11/28/15 13:32 CONFIRM#:[id number] documented in this encounter Plan of Treatment Not on filedocumented as of this encounter Visit Diagnoses Diagnosis Recurrent pain of right knee - Primary documented in this encounter Care Teams Trolley Collector Relationship Specialty Start Date End Date Bj Pelletier MD PCP - General 05/19/[address] [facility], [address] documented as of this encounter
--- OUTSIDE RECORDS SUMMARY | 2021-12-03 11:45 | XMS_ITS | Encounter Summary ---
:1955 Author [facility] Address [address] [place] [address] Care Team Providers Name Role Phone Bj Pelletier MD Primary Care Provider Unavailable Encounter Details Date Type Department Care Team Description 03/03/2012 Lab Visit [facility]inary tract infection, [address] not specified [place], [place] [address] Social History Tobacco Use Types Packs/Day Years Used Date Smoking Tobacco: Never Assessed Sex Assigned at Date Recorded Female 10/03/2020 11:17 AM CDT documented as of this encounter Plan of Treatment Not on filedocumented as of this encounter Procedures Procedure Name Priority Date/Time Associated Comments Diagnosis URINALYSIS Routine 03/03/2012 11:51 AM Urinary tract Results for this ROUTINE(MICRO IF POLICE INSPECTOR infection, site not proc edure are in POS) specified the results section. URINE CULTURE Routine 03/03/2012 11:51 AM Urinary tract Result s for this POLICE INSPECTOR infection, site not procedur e are in specified the results section. documented in this encounter Results Urine Culture (03/03/2012 11:51 AM POLICE INSPECTOR) [facility] Method Time Signature Urine Culture Mixed gram HP CONVERSION positive organisms. <10,000 cfu/mL Specimen (Source) Anatomical Collection Method Collection Time Re ceived Time Location / / Volume Laterality Urine:clean catch 03/03/2012 11:51 AM POLICE INSPECTOR Octavio Moses MD LAB_1 Performing Organization Address City/State/ZIP Code Phon e Number HP CONVERSION (ABNORMAL) URINALYSIS ROUTINE(MICRO IF POS) (03/03/2012 11:51 AM POLICE INSPECTOR) [facility] Method Time Signature Urine Type Urine:clean HP CONVERSION cat Turbidity Clear Clear HP CONVERSION U BILI Negative Negative HP CONVERSION Blood Urine Negative Negative HP CONVERSION Glucose, Negative Neg-30 HP CONVERSION Qualitative U mg/dL Ketones Trace (A) Negative HP CONVERSION Leukocyte Negative Negative HP CONVERSION Esterase Urine Nitrite Urine Negative Negative HP CONVERSION pH Urine 7.0 5.0 - 8.0 HP CONVERSION Protein Urine Negative Neg - Trace HP CONVERSION mg/dL U Specific 1.010 1.005 - HP CONVERSION Alborn 1.030 Urobilinogen Negative Negative HP CONVERSION Urine Eu/dL Specimen Anatomical Collection Method Collection Time Receive d Time (Source) Location / / Volume Laterality Urine: 03/03/2012 11:51 03/03/2012 AM POLICE INSPECTOR 11:51 AM POLICE INSPECTOR Narrative HP CONVERSION - 03/03/2012 12:48 PM POLICE INSPECTOR Performed at [facility], [address] [place] [address] Octavio Moses MD LAB_1 Performing Organization Address City/State/ZIP Code Phon e Number HP CONVERSION documented in this encounter Visit Diagnoses Diagnosis Urinary tract infection, site not specif ied documented in this encounter Care Teams English Composition Instructor Relationship Specialty Start Date End Date Bj Pelletier MD PCP - General 05/19/[address] [facility], [address] documented as of this encounter
--- OUTSIDE RECORDS SUMMARY | 2021-12-03 11:45 | XMS_ITS | Encounter Summary ---
:1955 Author Organization [facility] Address [address] [place] [address] Care Team Providers Name Role Phone Bj Pelletier MD Primary Care Provider Unavailable Reason for Visit Reason Comments Follow-up Encounter Details Date Type Department Care Team Description 02/23/2012 Office Visit [facility] [address] Octavio Moses MD Right renal mass Urology [address] (Primary Dx) [address] [place] [address] [phone] Social History Tobacco Use Types Packs/Day Years Used Date Smoking Tobacco: Never Assessed Sex Assigned at Date Recorded Female 10/03/2020 11:17 AM CDT documented as of this encounter Progress Notes Octavio Moses MD - 02/23/2012 4:09 PM CST This office note has been dictated. Octavio Moses MD - 02/23/2012 4:09 PM CST Progress Notes signed by Octavio Moses MD at 02/26/12827 Author: Octavio Moses MD Service: (none) Author Type: Physician Filed: 02/26/12827 Note Time: 02/23/121608 Status: Signed Mechanical Engineer: Octavio Moses MD (Physician) NAME: MEGAN WILD MR#: [id number] CSN: [id number] AUTHENTICATING CLINICIAN: Gustavo Moses MD CONFIRM #: [id number] LOC: 417 CLINIC PROGRESS NOTE DATE OF VISIT: 02/23/2012 : 1955 This 56-year-old white female came in to review CT results. I reviewed CT images yesterday, and asked the patient specifically to come in for a personal visit. After her urethral dilation, all her urethral symptoms are gone. I all ordered a CT scan simply for further evaluation for previous ureteral injury with right hydronephrosis. CT scan showed a 12-mm solid mass in the lower pole of the right kidney. I showed the patient the x-ray images. It is quite clear that this is an incidental finding of a right renal mass. In a case like this, 80% chance that thismass represents renal cell cancer, and 20% chance this could represent a benign tumor such as oncocytoma. For practical purposes, we should treat this as a kidney neoplasm. Regarding all options, option one is a standard right partial nephrectomy, second is laparoscopic cryoablation. I think with CT guidance, this lesion would be a little too small to accurately aim at it. Thirdly would be to consider active surveillance or observation. The pros and cons of each treatment is discussed. This patient is a young, otherwise healthy, and I think my first choice would be a right partial nephrectomy. I showed her the anatomy illustration, explained to her how the surgery is performed, recovery time, and potential complications, and answered her questions. Obviously, this patient was quite upset with the news. I do not think there is any daniels for surgery. I would like to give her some timeto think it over, and she will make another appointment with her for further discussion. Answered all her questions. Total visit is 25 minutes, all for counseling. DIAGNOSIS: Right renal solid mass. 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 documented in this encounter Plan of Treatment Not on filedocumented as of this encounter Procedures Procedure Name Priority Date/Time Associated Diagnosis Comme nts POCT URINALYSIS UROLOGY Routine 02/23/2012 3:47 PM CONTINUOUS PROCESS COFFEE ROASTER Right r enal mass documented in this encounter Results POCT URINALYSIS UROLOGY (02/23/2012 3:47 PM CONTINUOUS PROCESS COFFEE ROASTER) P athologist Signature See SDOC HP CONVERSION Specimen (Source) Anatomical Collection Method Collection Time Re ceived Time Location / / Volume Laterality 02/23/2012 3:47 PM CONTINUOUS PROCESS COFFEE ROASTER Octavio Moses MD PN POINT OF CARE TESTS Performing Organization Address City/State/ZIP Code Phon e Number HP CONVERSION documented in this encounter Visit Diagnoses Diagnosis Right renal mass - Primary Unspecified disorder of kidney and urete r documented in this encounter Care Teams Toe Former Relationship Specialty Start Date End Date Bj Pelletier MD PCP - General 05/19/[address] [facility], [address] documented as of this encounter
--- OUTSIDE RECORDS SUMMARY | 2021-12-03 11:45 | XMS_ITS | Encounter Summary ---
:1955 [facility] Address [address] [place] [address] Care Team Providers Name Role Phone Bj Pelletier MD Primary Care Provider Unavailable Reason for Visit Reason Comments Hand Therapy Encounter Details Date Type Department Care Team Description 04/07/2016 Office Visit [facility] Rosie Grigsby, Closed fracture of distal en d of right radius with routine healing, unspecified fracture morphology, subsequent encounter (Primary Dx); [address] [facility] OTR/L Status post open reduction with internal fixation of fracture [place], [place] [address] [address] [facility] [phone] [place] [address] (Wo rk) Social History Tobacco Use Types Packs/Day Years Used Date Smoking Tobacco: Never Smokeless Tobacco: Never Alcohol Use Standard Drinks/Week Comments Yes 0 (1 standard drink = 0.6 oz pure alcoho l) 2-3 glasses of wine per week Sex Assigned at Date Recorded Female 10/03/2020 11:17 AM CDT documented as of this encounter Progress Notes Rosie Grigsby, OTR/L - 04/07/2016 9:50 AM CST Hand Occupational Therapy Progress Note Initial [...] and does weightlifting and recently started a kickGalleon Pharmaceuticalsing class. Functional Limitations: gripping, pinching, carrying, lifting, [...] pain in 6-8 weeks. SUBJECTIVE: Patient is 12days post-operative. She has been trying to use her hand more and doing the home program. OBJECTIVE: Pain: Patient rates resting pain <2/10. [...] opposition 8 8 10 Strength: Right Left [employer], elbow at 90 degrees 20 lbs 49 lbs Scar/Incision: The incision is closed with sutures/steri-strips intact. TREATMENT INTERVENTION: Hot Pack CPT 94104 (5 minutes untimed) Hot pack for 5 minutes to wrist and hand during the education portion of exercises today. Therapeutic Exercise CPT 01006 (30 minutes) Exercise: Issued handout, instructed in and performed phase 2 with wrist/forearm PROM and tape machine tailer strengthening. Also reviewed phase 1 with finger, thumb, wrist and forearm AROM. The patient was instructed to perform the exercises 3-4x/day, 10 repetitions of each exercise. Scar Management: The patient was instructed in and issued written information on scar mobilization with recommendations to perform 3 times per day for 3-5 minutes as soon as incision is healed. The patient was issued ascar pad to use 8 hours out of 24 hours a day. Written instructions were issued regarding scar pad wear, care and precautions. Fit with light compression for edema control. Education: (5 minutes) The patient was educated on the diagnosis, post-operative precautions and activity restrictions for phase 2. Timed Code Treatment Minutes: 30 Total Treatment Minutes: 35 ASSESSMENT: She has made good progress with gaining AROM and should do well with addition of PROM and tape machine tailer strengthening. She will also try to engage hand more in functional activities now that sutures are removed. PLAN: The patient will return for additional [...] fit. Progress home exercise program per post-operativeprotocol, advance as able. Modalities as appropriate. Visit frequency/duration: Patient will be seen 1x/week for 6-8 weeks. Treatment Plan: Accelerated rehabilitation protocol for distal radius fracture treated with ORIF. Splint/orthosis, AROM, AAROM, PROM, strengthening, edema control, scar management, modalities, manual therapy, patient education and training. Therapist Signature: KENYATTA Willett, [facility] #[id number] Visit #2 Payor: [facility] [facility] / Plan: SELF INSURED / Product Type: Commercial / Physician electronic signature indicates review and certification of therapy plan of care. WORKER documented in this encounter Plan of Treatment Not on filedocumented as of this encounter Visit Diagnoses Diagnosis Closed fracture of distal end of right r adius with routine healing, unspecified fracture morphology, subsequent encounte r - Primary Status post open reduction with internal fixation of fracture documented in this encounter Care Teams City Jailer Relationship Specialty Start Date End Date Bj Pelletier MD PCP - General 05/19/[address] [facility], [address] documented as of this encounter
--- OUTSIDE RECORDS SUMMARY | 2021-12-03 11:45 | XMS_ITS | Encounter Summary ---
:1955 Author [facility] Address [address] [place] [address] Care Team Providers Name Role Phone Bj Pelletier MD Primary Care Provider Unavailable Reason for Visit Reason Comments Hand Therapy Encounter Details Date Type Department Care Team Description 05/08/2016 Office Visit [facility] Rosie Grigsby, Closed fracture of distal en d of right radius with routine healing, unspecified fracture morphology, subsequent encounter (Primary Dx); [address] [facility] OTR/L Status post open reduction with internal fixation of fracture [place], [place] [address] [address]100 [facility] [phone] [place] [address] (Wo rk) Social History Tobacco Use Types Packs/Day Years Used Date Smoking Tobacco: Never Smokeless Tobacco: Never Alcohol Use Standard Drinks/Week Comments Yes 0 (1 standard drink = 0.6 oz pure alcoho l) 2-3 glasses of wine per week Sex Assigned at Date Recorded Female 10/03/2020 11:17 AM CDT documented as of this encounter Progress Notes Rosie Grigsby, OTR/L - 05/08/2016 5:05 PM CDT Hand Occupational Therapy Progress Note/Discharge Summary Initial Certification Period: 03/31/2016 - 06/29/16 Date [...] in 6-8 weeks. SUBJECTIVE: Patient says she is doing well with her exercises and return to most activities. She is helping her family move this weekend. OBJECTIVE: Pain: Patient rates resting pain <2/10. Patient rates pain with activity 2/10. Edema: Circumferential measurements in cm: Right Left Wrist crease 16 16 AROM: Right 05/08/16 Right 04/21/16 Right 04/14/16 Right 04/07/16 Right 03/31/16 Left Wrist Extension/Flexion 75/50 60/35 55/43 61/33 44/30 70/79 Wrist Ulnar/Radial Deviation 30/10 30/10 26/11 28/10 20/9 36/19 Supination/Pronation 85/86 72/85 49/85 45/86 36/80 85/90 Strength: Right 05/08/16 Right 04/21/16 Left Marine Welder, elbow at 90 degrees 40 lbs 30 (up from 20) lbs 49 lbs Scar/Incision: The scar is flat and mildly adherent. TREATMENT INTERVENTION: Paraffin Bath Therapy CPT 92132 (5 minutes untimed) Paraffin dip to patient???s hand for 5 minutes. Ultrasound CPT 87232 (6 minutes) Continuous ultrasound at 3mhz for 6 minutes at 1w/cm2 with a large sound head over volar scar. Therapeutic Exercise CPT 68916 (30 minutes) ?? Performed STM to scar. Reviewed HEP and advanced to phase 3 ?? Performed PROM exercises for wrist and forearm with gentle mobs and prolonged stretch for wrist flexion. ?? Instructed and performed wrist isotonics with 1# to increase weights as tolerated. Timed Code Treatment Minutes: 30 Total Treatment Minutes: 41 ASSESSMENT: She has made excellent progress with motion and strength today so she feels ready to continue with HEP on her own. PLAN: The patient will be discharged with HEP. Discharge is planned as functional outcomes are achieved, progress has reached a plateau or adequate progress is made such that the patient is able to self-manage with their home program. Patient was provided with the clinic number and instructed to call with any questions or concerns. Therapist Signature: CAROLINA Booker/[place] 5:06 PM 05/08/2016 Visit #6 Payor: [employer] / Plan: SELF INSURED / Product Type: Commercial / documented in this encounter Plan of Treatment Not on filedocumented as of this encounter Visit Diagnoses Diagnosis Closed fracture of distal end of right r adius with routine healing, unspecified fracture morphology, subsequent encounte r - Primary Status post open reduction with internal fixation of fracture documented in this encounter Care Teams Skill Training Program Coordinator Relationship Specialty Start Date End Date Bj Pelletier MD PCP - General 05/19/[address] [facility] [place], [address] documented as of this encounter
--- OUTSIDE RECORDS SUMMARY | 2021-12-03 11:45 | XMS_ITS | Encounter Summary ---
:1955 Author Organization [facility] Address [address] [place] [address] Care Team Providers Name Role Phone Bj Pelletier MD Primary Care Provider Unavailable Reason for Visit Reason Onset Date Comments RESULTS, TEST 06/30/2016 Encounter Details Date Type Department Care Team Description 06/30/2016 Telephone [facility] Supriya Zepeda PA-C RESULTS, TEST [address] [facility] [address] [facility] [place], [place] [address] [place] [address] [phone] (Wo rk) Social History Tobacco Use Types Packs/Day Years Used Date Smoking Tobacco: Never Smokeless Tobacco: Never Alcohol Use Standard Drinks/Week Comments Yes 0 (1 standard drink = 0.6 oz pure alcoho l) 2-3 glasses of wine per week Sex Assigned at Date Recorded Female 10/03/2020 11:17 AM CDT documented as of this encounter Nursing Notes Supriya Zepeda PA-C - 06/30/2016 2:08 PM CDT Vit D level 42. Patient to continue with current dosage of Vit D3 year round. documented in this encounter Plan of Treatment Not on filedocumented as of this encounter Visit Diagnoses Not on filedocumented in this encounter Care Teams Technician Biological Health Relationship Specialty Start Date End Date Bj Pelletier MD PCP - General 05/19/[address] [facility], [address] documented as of this encounter
--- OUTSIDE RECORDS SUMMARY | 2021-12-03 11:45 | XMS_ITS | Encounter Summary ---
:1955 Author Organization [facility] Address [address] [place] [address] Care Team Providers Name Role Phone Bj Pelletier MD Primary Care Provider Unavailable Reason for Visit Procedure/Equipment (Routine) - Incomplete Specialty Diagnoses / Procedures Referred By Contact Refer red To Contact Diagnoses S/P ORIF (open reduction internal fixation) fracture Joey Flores MD Procedures XR Wrist Rt 3+ Views [address] [facility] [place], [place] [address] Referral ID Status Reason Start Date Expiration Date Visits V isits Requested Authorized [id number] Incomplete 06/29/2016 09/28/2017 1 1 Encounter Details Date Type Department Care Team Description 06/29/2016 Imaging [facility] Joey Flores, S/P ORIF (open [facility] internal [place], [place] [address] [place] [address] fixation) fracture [phone] [place] [address] (Wo rk) Social History Tobacco Use Types [...] Comme nts XR WRIST RT 3+ Routine 06/29/2016 1:37 PM S/P ORIF (open Resul ts for this VIEWS CDT reduction internal procedure are in fixation) fracture the resul ts section. documented in this encounter Results XR [...] essentially anatomic. Joey Flores MD RAD GD documented in this encounter Visit Diagnoses Diagnosis S/P ORIF (open reduction internal fixati on) fracture documented in this encounter Care Teams Tower Control Operator Relationship Specialty Start Date End Date Bj Pelletier MD PCP - General 05/19/[address] [facility], [address] documented as of this encounter
--- OUTSIDE RECORDS SUMMARY | 2021-12-03 11:45 | XMS_ITS | Encounter Summary ---
:1955 [facility] Address [address] [place] [address] Care Team Providers Name Role Phone Bj Pelletier MD Primary Care Provider Unavailable Reason for Referral Procedure/Equipment (Routine) - Incomplete Specialty Diagnoses / Procedures Referred By Contact Refer red To Contact Diagnoses S/P orthopedic surgery, follow-up exam Lili Nunez MD Procedures XR Wrist Rt 3+ Views [address] [facility] [place], [place] [address] Referral ID Status Reason Start Date Expiration Date Visits V isits Requested Authorized [id number] Incomplete 05/13/2016 08/12/2017 1 1 Reason for Visit Reason Comments FRACTURE, WRIST Encounter Details Date Type Department Care Team Description 05/13/2016 Office Visit [facility] Lili Nunez, status -post right [facility]ENTER ORIF extra-articular [address] [facility] [address] [facility] distal radius [place], [place] [address] [place], [place] fracture completed on [phone] 03/26/2016 (Primary Dx) [phone] (Wo rk) Social History Tobacco Use Types Packs/Day Years Used Date Smoking Tobacco: Never Smokeless Tobacco: Never Alcohol Use Standard Drinks/Week Comments Yes 0 (1 standard drink = 0.6 oz pure alcoho l) 2-3 glasses of wine per week Sex Assigned at Date Recorded Female 10/03/2020 11:17 AM CDT documented as of this encounter Patient Instructions Patient InstructionsRonda Cortes CMA - 05/13/2016 3:[address] Lili Nunez MD Hand & Upper Extremity Surgeon Sealing Machine Operator: Antonia Carrera Please call Antonia for all surgery scheduling and administrative questions at [phone] Hand Nurse: Manny Torre Please contact Manny for all medical related questions at [phone] Medication Requests: Prescriptions are not filled on Weekends or on Weekdays after 3:00PM For all medication refills: Request a refill using [employer] or contact your Pharmacy Patient instructed to schedule a dexa scan. Follow up in clinic as instructed. documented in this encounter Progress Notes Lili Nunez MD - 05/13/2016 2:20 PM CDT [facility] Follow-Up 05/13/2016 Chief Complaint: Postoperative Follow-Up History of Present Illness: Megan العلي is a 60 y.o. female status-post right ORIF extra-articular distal radius fracture completed on 03/26/2016 who presents for postoperative follow-up. The patient reports that she is doing well with improving pain overlying her radial wrist. She has pain mainly with use of her wrist. She has experienced almost full return of her range of motion with the exception of flexion. Physical Exam: General: A pleasant female of stated age, no acute distress.?? Skin: Intact.?? Neurovascular: Sensation is intact to light touch. There is brisk capillary refill in the digit.?? Right Hand/Wrist: Lacking 20 degrees of flexion otherwise symmetrical. Imaging: Radiographs of the right wrist - 3 views (05/13/2016): Distal radius fracture transfixed by plate and screws with overall acceptable alignment and positioning. STT arthritis is also noted. I ordered and independently reviewed and interpreted the imaging studies above; the results were discussed with the patient. Assessment: ICD-10-CM 1. status-post right ORIF extra-articular distal radius fracture completed on 03/26/2016 Z09 Plan: The patient can return to activity as tolerated. We discussed and elected to obtain a DEXA scan to evaluate her bone health. If this returns abnormal I will refer her to our new PA who specializes in bone health. She was counseled on daily calcium and vitamin D intake. Follow up with me as needed. I do not anticipate any difficulties or problems. Scribe Disclosure: IHiral, am serving as a scribe to document services personally performed by Lili Nunez MD at this visit, based upon the provider's statements to me. All documentation has been reviewed by the aforementioned provider prior to being entered into the official medical record. Entered on 05/13/2016 at 2:34 PM. I, Lili Nunez MD, attest that the above named individual is acting in scribe capacity, has observed my performance of the services performed at this visit and has documented them in accordance with my direction. Entered on 05/13/2016 at 2:34 PM. Lili Nunez MD documented in this encounter [...] d istal radius fracture completed on 03/26/2016 - Primary Follow-up examination, following other s urgery documented in this encounter Care Teams Body Presser Relationship Specialty Start Date End Date Bj Pelletier MD PCP - General 05/19/[address] [facility], [address] documented as of this encounter
--- OUTSIDE RECORDS SUMMARY | 2021-12-03 11:45 | XMS_ITS | Encounter Summary ---
:1955 [facility] Address [address] [place] [address] Care Team Providers Name Role Phone Bj Pelletier MD Primary Care Provider Unavailable Reason for Referral Therapies (Routine) - Closed Specialty Diagnoses / Procedures Referred By Contact Refer red To Contact Diagnoses Right knee pain, unspecified chronicity Noel Live PA-C [address] [place] [address] [id number] 5 Referral ID Status Reason Start Date Expiration Date Visits Requ ested Visits Authorized [id number] Closed 05/25/2016 07/24/2016 1 1 Scheduling Instructions Your provider has recommended an appoint ment with [facility]. You may call [phone] to schedule your appoi ntment. If you do not schedule an appointment within the next 1 to 3 business days, we will call you to help arrange your appointment. We suggest you call your [facility] insurance company about your coverage and benefits for this appointment. Reason for Visit Reason Comments Knee Pain or Injury Right, fallJuly 2015 Encounter Details Date Type Department Care Team Description 05/25/2016 Surgical Consult [facility] Noel Live Righ t knee pain, unspecified chronicity (Primary Dx); BETH ZAMBRANO Osteoarthritis of right knee, unspecifie d osteoarthritis type [address] [facility] [address] [place] [address] [phone] Social History Tobacco Use Types Packs/Day Years [...] - Inhaled Oxygen Concentration - - Weight 60.5 kg (133 lb 6.4 oz) 05/25/2016 3:12 PM CDT Height 160.5 cm (5' 3.2) 05/25/2016 3:12 PM CDT Body Mass Index 23.48 05/25/2016 3:12 PM CDT documented in this encounter Patient Instructions Patient InstructionsCamilla Daniels LPN - 05/25/2016 3:14 PM CDT Noel Live PA-C Sports Medicine and General Orthopedics Slip Feeder: Patty Templeton Please contact Patty for all administrative questions at [phone] Please call Nurse Triage at [phone] for all medical questions Fax number: [phone] Medication Requests: Prescriptions are not filled on Weekends or on Weekdays after 3:00PM For all medication refills: Request a refill using MyChart or contact your Pharmacy If you develop new or worsening symptoms call [facility] at [phone] documented in this encounter Progress Notes Noel Live PA-C - 05/27/2016 9:07 AM CDT NAME: MEGAN AYON MR#: [id number] CSN: [id number] AUTHENTICATING CLINICIAN: OLI Johnson CONFIRM #: [id number] LOC: 711 CLINIC PROGRESS NOTE DATE OF VISIT: 05/25/2016 : 1955 SUBJECTIVE: Ms. العلي is seen in clinic today for examination of right knee Workman's Comp injury. She denies any problems or complications since her last visit of November 28, 2015, with Dr. Chapman. She has previously undergone an evaluation in the Acute Injury Clinic. Was diagnosed with that of a lateral meniscus tear and small medial meniscus tears as well as some patellofemoral DJD. She was recommend ice, modification of activities, and is seen in clinic today for further treatment options. She was last seenby Dr. Chapman on November 28, 2015. Please review Dr. Chapman' note. CURRENT MEDICAL PROBLEMS: Include hypertension. CURRENT MEDICATIONS: Include hydrochlorothiazide. PREVIOUS SURGERY: Includes wrist surgery, melanoma removal, and a hysterectomy. 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 Denies tobacco use. Drinks frequently. REVIEW OF SYSTEMS: Significant for melanoma. Denies use of glasses and contacts, hypertension, asthma, shortness of breath. Denies any history of heart, lung, liver, renal, GI, or diabetes. FAMILY HISTORY: Denies anesthesia complications, bleeding disorder, cancer, diabetes, heart disease, stroke or arthritis. PHYSICAL EXAMINATION: GENERAL: Exam today demonstrates a 60-year-old female in no acute distress. VITAL SIGNS: Height and weight of 63 inches, 133 pounds. BILATERAL KNEE EXAM: Skin is cool to touch. She has full range of motion of bilateral knees. Her right knee demonstrates mild crepitus to patellofemoral joint. Reggie's reproduces pain as well medially. Calves are supple and nontender. She has full range of motion of the hip, knee and ankle. All tendons are intact with 5/5 strength. This is compared bilaterally and she has a 2+ pedal pulse. Radiographs and MRI are reviewed from Dr. Chapman' office, demonstrated patellofemoral DJD, as well asa small medial and lateral meniscus tears. IMPRESSION: Right knee DJD with a small medial and lateral meniscus tears. PLAN: I discussed treatment options. At this time her symptoms are painful but not horrible and we discussed physical therapy, Viscosupplementation, as well as corticosteroid injections. After a thorough discussion regarding this, she wishes to try physical therapy and see how she does. If she does not improve, further consideration of a corticosteroid injection might be of some benefit. She was referred to PT. In regard to her work, she was recommended no squatting or kneeling and her impact exercises. She will follow up in 6 weeks' time. All questions were answered. She was provided with a new work ability. JCS:MEDQ C: R:05/27/16 07:50 CONFIRM#:[id number] documented in this encounter Plan of Treatment Scheduled Referrals Name Type Priority Associated Diagnoses Order [facility] Physical Therapy Referral Routine Right knee pain, unspeci fied Ordered: 05/25/2016 chronicity documented as of this encounter Visit Diagnoses Diagnosis Right knee pain, unspecified chronicity - Primary Osteoarthritis of right knee, unspecifie d osteoarthritis type documented in this encounter Care Teams Rental Clerk Tool And Equipment Relationship Specialty Start Date End Date Bj Pelletier MD PCP - General 05/19/[address] [facility], [address] documented as of this encounter
--- OUTSIDE RECORDS SUMMARY | 2021-12-03 11:46 | XMS_ITS | Encounter Summary ---
:1955 [facility] Address [address] [place] [address] Care Team Providers Name Role Phone Bj Pelletier MD Primary Care Provider Unavailable Encounter Details Date Type Department Care Team Description 08/16/2006 Office Visit [place] [facility] [place] [place] [address] [place] [address] [place] [address] [phone] (Wo rk) Social History Tobacco Use Types Packs/Day Years Used Date Smoking Tobacco: Never Assessed Sex Assigned at Date Recorded Female 10/03/2020 11:17 AM CDT documented as of this encounter Plan of Treatment Not on filedocumented as of this encounter Visit Diagnoses Not on filedocumented in this encounter Care Teams Domestic Technician Relationship Specialty Start Date End Date Bj Pelletier MD PCP - General 05/19/[address] [facility], [address] documented as of this encounter
--- OUTSIDE RECORDS SUMMARY | 2021-12-03 11:46 | XMS_ITS | Encounter Summary ---
:1955 Author Organization [facility] Address [address] [place] [address] Care Team Providers Name Role Phone Bj Pelletier MD Primary Care Provider Unavailable Reason for Visit Reason Comments Other Encounter Details Date Type Department Care Team Description 10/15/2006 Telephone Specialty [facility] [address] Kobe Mendez, RN Other Gynecology Oncology [address] [place] [address] Social History Tobacco Use Types Packs/Day Years Used Date Smoking Tobacco: Never Assessed Sex Assigned at Date Recorded Female 10/03/2020 11:17 AM CDT documented as of this encounter Progress Notes Kobe Mendez RN - 10/15/2006 11:24 AM CDT Phone Note filed by Kobe Mendez RN at 06/04/10334 Author: Kobe Mendez RN Service: (none) Author Type: (none) Filed: 06/04/105 Note Time: 10/15/06 1124 Status: Signed Plant Health Care Technician: Cachorro Fedlman Pt left message that she would be having surgery on Wednesday, 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 Created on 15Oct2006 11:24am by KOBE MENDEZ OGRAPHIC MATERIALS CONSERVATOR documented in this encounter Plan of Treatment Not on filedocumented as of this encounter Visit Diagnoses Not on filedocumented in this encounter Care Teams Tape Calender Relationship Specialty Start Date End Date Bj Pelletier MD PCP - General 05/19/[address] [place], [address] documented as of this encounter
--- OUTSIDE RECORDS SUMMARY | 2021-12-03 11:46 | XMS_ITS | Encounter Summary ---
:1955 [facility] Address [address] [place] [address] Care Team Providers Name Role Phone Unassigned, Provider Primary Care Provider Unavailable Encounter Details Date Type Department Care Team Description 09/28/2006 - Hospital Encounter Presybeterian Josh Subramanian MD [address] [facility] [address] [place] [address] 09/29/2006 8M-Brl-Ygtc-Oncology Genevieve Subramanian MD [address] [facility] [address] [place], [place] [address] -Urology-Hospice [address] [place], [place] [address] Social History Tobacco Use Types Packs/Day Years Used Date Smoking Tobacco: Never Assessed Sex Assigned at Date Recorded Female 10/03/2020 11:17 AM CDT documented as of this encounter Last Filed Vital Signs Vital Sign Reading Time Taken Comments Blood Pressure 96/66 09/29/2006 11:00 AM CDT Pulse 78 09/29/2006 11:00 AM CDT Temperature 36.4 ??C (97.5 ??F) 09/29/2006 11:00 AM ORAL C: 97.5 F CDT Respiratory Rate 16 09/29/2006 11:00 AM CDT Oxygen Saturation 98% 09/29/2006 11:00 AM CDT Inhaled Oxygen Concentration - - Weight 63.3 kg (139 lb 8.8 09/28/2006 7:29 PM C: 139.6l b oz) CDT Height - - Body Mass Index 23.95 09/20/2006 11:13 AM CDT documented in this encounter Discharge Summaries Genevieve Subramanian MD - 09/29/2006 12:01 AM CDT Discharge Summaries signed by Genevieve Subramanian MD at 10/27/06 1214 Author: Genevieve Subramanian MD Service: (none) Author Type: Physician Filed: 06/06/10 5198 Note Time: 09/29/06 1532 Status: Signed Manager Metrology: Genevieve Subramanian MD (Physician) NAME: MEGAN WILD MR#: [id number] ACCT: [id number] AUTHENTICATING CLINICIAN: GENEVIEVE SUBRAMANIAN MD JOB: [id number] LOC: 1 HOSPITAL DISCHARGE SUMMARY DATE OF ADMISSION: 09/28/06. DATE OF DISCHARGE: 09/29/06. ADMITTING DIAGNOSIS: 1. Fibroid uterus. 2. Family history of ovarian and uterine cancer. 3. Pelvic pain. 4. Acid reflux. DISCHARGE DIAGNOSIS: 1. Benign uterine leiomyomas. 2. Acid reflux. PROCEDURES: 1. Total laparoscopic hysterectomy, bilateral salpingo-oophorectomy. 2. General anesthesia. HISTORY: Patient is a 50-year-old female who had been seen in evaluation for management of pelvic pain with fibroids, history of ovarian, uterine and colon cancer. She desired definitive management of these issues including having her ovaries removed at the time of surgery. PAST MEDICAL HISTORY: 1. Para 3-0-2-3. 2. Chronic asthma. PAST SURGICAL HISTORY: 1. Cystoscopy. 2. [place] teeth removal. 3. Femoral hernia repair. FAMILY HISTORY: Multiple family members with cancer including mother with ovarian cancer age 69. Other family members with breast and ovarian cancer. Maternal grandmother with stomach cancer. Maternal great uncle with stomach cancer and cousin with pancreatic cancer. A paternal aunt with uterine cancer and a sister with female cancer, unknown cause. Uncle with colon cancer. SOCIAL HISTORY: She does not smoke. She occasionally uses alcohol. She does not use drugs. She is getting her master's degree currently. MEDICATIONS: Please see LastWord for all medications. ALLERGIES: BACTRIM. REVIEW OF SYSTEMS: A complete 12-point review of systems is, otherwise, negative. HOSPITAL COURSE: Patient was admitted and underwent a total laparoscopic hysterectomy, bilateral salpingo-oophorectomy without difficulty on 09/28/06. The total blood loss for this procedure was 100 mL. Findings included a moderate size uterus with posterior fibroid, normal tubes and ovaries bilaterally, normal appendix. Following the procedure, she was transferred to the surgical floor in stable condition on the evening of postoperative day #0. She began ambulating and tolerating clears. On postoperative day #1, her Sparks catheter was removed. She began voiding spontaneously. She was tolerating a regular diet. Her pain was well controlled on oral medication and she was ambulating. She desired discharge home. CONDITION ON DISCHARGE/INSTRUCTIONS: She was instructed nothing in the vagina for 6 weeks. No lifting greater than 20 pounds for 2 weeks. [address] x7 days or while on narcotics. She is instructed to call with a fever, severe abdominal pain, vaginal bleeding or difficulty with urination. DISCHARGE MEDICATIONS: Regular medications plus: (1) Percocet. (2) Ibuprofen. (3) Colace. She will follow up with Dr. Subramanian for postoperative visit on 10/04/06. Dictated by: Koki Martinez MD JAUN:[id number] C: 09/30/06 09:24 DOCUMENT: [id number] documented in this encounter Medications at Time of Discharge Medication Sig Dispensed Refills Start Date End Date Ascorbic Acid (VITAMIN C Take 2 Tablets by 0 07/16 OR) mouth daily. B Complex Vitamins Take by mouth daily 0 08/04/19 07 (VITAMIN B COMPLEX OR) (every 24 hours). calcium Take 2 tablets by 3 08/03/2006 016 carb-ergocalciferol mouth. LW Addl 500-200 MG-UNIT TABS Instr:Take with tablet food. Qalolggyjtp-Viigkemxa-Ndt LW Addl 0 09/20/2006 09/26/2015 C-Mn Instr:INDICATED FOR (GLUCOSAMINE-CHONDROITIN) OSTEOARTHRITIS. lansoprazole (PREVACID) Take 1 capsule by 90 3 08/0309/26/2015 30 MG capsule mouth daily (every 24 hours). LW Addl Instr:Indicated for: Acid Reflux magnesium 250 MG Take 1 tablet by 90 0 08/03/2006 mouth daily (every 24 hours). unknown medication Indications: PN: 0 09/29/2006 10/25/2006 unknown medication Indications: PN: 0 09/24/2006 10/25/2006 unknown medication Indications: PN: 0 09/20/2006 10/25/2006 Multiple Take 1 tablet by 100 13 09/20/2006 05/26/19 17 Vitamins-Minerals mouth daily (every (MULTIVITAMIN OR) 24 hours). documented as of this encounter Procedure Notes Genevieve Subramanian MD - 09/28/2006 12:01 AM CDT OR Surgeon signed by Genevieve Subramanian MD at 10/27/06 1212 Author: Genevieve Subramanian MD Service: (none) Author Type: Physician Filed: 06/06/10 6509 Note Time: 09/28/06 1303 Status: Signed Manager Metrology: Genevieve Subramanian MD (Physician) NAME: MEGAN WILD MR#: [id number] ACCT: [id number] AUTHENTICATING CLINICIAN: GENEVIEVE SUBRAMANIAN MD JOB: [id number] LOC: 1 OPERATIVE REPORT : 1955. DATE OF OPERATION: 09/28/06. INDICATIONS FOR PROCEDURE: This is a 50-year-old who underwent evaluation and management for a family history of ovarian carcinoma, colon cancer, and pelvic pain with fibroids. Of note, she is BRCA1 and 2 negative. After a long discussion of options, risks, and benefits of surgery, she would prefer to proceed with a total laparoscopic hysterectomy and bilateral salpingo-oophorectomy. PREOPERATIVE DIAGNOSIS: 1. Fibroid uterus. 2. Family history of uterine cancer. 3. Pelvic pain. POSTOPERATIVE DIAGNOSIS: 1. Fibroid uterus. 2. Family history of uterine cancer. 3. Pelvic pain. PROCEDURE PERFORMED: Total laparoscopic hysterectomy, bilateral salpingo-oophorectomy. SURGEON: Genevieve Subramanian MD. SHOE CASER: Sue Rollins MD, fellow. Koki Martinez MD, resident. ANESTHESIA: General. COMPLICATIONS: None. EBL: 100 cc. IV FLUIDS: 2,300 cc of crystalloid. FINDINGS: A moderate sized uterus with a posterior fibroid, minimal adhesions from the right adnexa, normal tubes and ovaries bilaterally, normal appendix. SPECIMENS: Uterus, tubes, and ovaries bilaterally. CONDITION: Stable to PACU. DESCRIPTION OF OPERATION: Informed consent was confirmed, and the patient was taken to the operating room where general anesthesia was administered. She was then prepped and draped in the dorsal lithotomy position with the Tiffanie stirrups. A 5-mm umbilical skin incision was made, and the Veress needle was inserted through the umbilicus while the umbilicus was elevated on tension. Saline was injected and withdrawn, confirming placement. The gas was then turned on high flow; the opening pressure was 2 mmHg. The abdomen was insufflated to 50 mmHg, and camera confirmed intraabdominal placement. After the abdomen was insufflated, the Veress needle was removed, and a 5-mm trocar was placed in the umbilicus, then the camera was used to confirm intraabdominal placement. The left lateral port site was inserted. The laparoscopic scissors were then used to take down adhesions on the right sidewall without difficulty. A right lateral skin incision was also made, and additionally, a 5-mm trocar was placed in this port site as well. Attention was then turned to the bottom portion of the procedure where a single-tooth tenaculum was used to grasp the anterior lip of the cervix. The uterus sounded to 8.5-cm, and the Eri manipulator was inserted, 0-Vicryl was used to tie down the cervix to the Eri manipulator, and the Jenn Colpotomizer device was inserted. Attention was then again turned to the top layer. The right adnexa was grasped. The posterior broad ligament was opened with electrocautery, and a window was made surrounding the infundibulopelvic ligament. The IP ligament was then cauterized in subsequent areas using Gyrus electrocautery and transected. The IP pedicle was noted to be hemostatic. The round ligament was then grasped and cauterized and transected, again using the Gyrus. Additional pelvic holes were made in a successive fashion down to the area of the uterine artery. Attention was then turned to the other side, and in a similar fashion, the left adnexa was grasped, and the posterior leaf of the broad ligament was opened. The IP ligament was then transected after being electrocauterized by the Gyrus device. This pedicle again was noted to be hemostatic. The round ligament was also transected using the Gyrus, and subsequent pedicles were made down the left side of the uterus towards the uterine artery. The vesicouterine peritoneum was then identified and tented up. This was dissected down off the anterior uterus with both blunt dissection as well as electrocautery. The bladder was then noted to be away from the area of the Jenn cannula. The left uterine artery was then transected using the Gyrus, and hemostasis was insured after additional electrocautery. The same was performed on the right side. The Jenn device was then palpated, and electrocautery was used along the medial edge of the Jenn cannula in a circumferential fashion until the uterus and cervix were free. The uterus was then brought down into the vagina, and the vaginal cuff was closed with 4 mpygbz-vs-ubrhu sutures of 0-Vicryl using the Endo stitch and 1 interrupted suture. Following closure of the vaginal cuff, the pedicles were again reinspected and noted to be hemostatic. The uterus, cervix, tubes and ovaries were sent to pathology for routine evaluation. The left lateral port had been extended to 10-mm in order to allow for the Endo stitch device to be used, and the fascia was closed in an interrupted suture of 0-Vicryl. The port sites were then closed in interrupted sutures of 4-0 Monocryl. Sponge, lap, and needle counts were correct x 2. Dr. Subramanian was present and scrubbed for the entire case. Prior to that, the patient was extubated and taken to PACU in stable condition. Dictated by Koki Martinez MD, for Genevieve Subramanian MD. JAUN:[id number] C: 09/28/06 18:55 DOCUMENT: [id number] documented in this encounter Miscellaneous Notes Miscellaneous - Genevieve Subramanian MD - 09/29/2006 12:01 AM CDT ICD-9-CM ICD-9-CM Narrative description Code ======== DIAGNOSES Principal: UTERINE ENDOMETRIOSIS 617.0 Secondary: UTERINE LEIOMYOMA NOS 218.9 FEM GENITAL SYMPTOMS NOS 625.9 ESOPHAGEAL REFLUX 530.81 ASTHMA, UNSPECIFIED 493.90 FAMILY HISTORY OF OTHER MALIGNANT NEOPLASM V16.49 PROCEDURES Provider1 Date Principal: LAPAROSCOPIC TOTAL ABDOM GENEVIEVE SUBRAMANIAN [id number] 68.41 Provider2: Provider3: JOHNNY RODRIGUEZ Secondary: LAPAROSCOPIC REMOVAL;BOT GENEVIEVE SUBRAMANIAN [id number] 65.63 Provider2: Provider3: documented in this encounter Plan of Treatment Not on filedocumented as of this encounter Procedures Procedure Name Priority Date/Time Associated Diagnosis Comme nts HEMOGLOBIN, BLOOD Routine 09/29/2006 4:45 AM Resu lts for this CDT procedure are i n the results section. NGYN CYTO FINAL Routine 09/28/2006 8:15 PM Result s for this REPORT CDT procedure are i n the results section. SURGICAL PATH, PARK Routine 09/28/2006 1:02 PM Re sults for this NICOLLET CDT procedure are i n the results section. DRAW & HOLD Routine 09/28/2006 7:20 AM Results f or this CDT procedure are i n the results section. BEDSIDE GLUCOSE Routine 09/28/2006 6:37 AM Result s for this MONITOR POCT CDT procedure are i n the results section. MRSA CULTURE Routine 09/28/2006 5:51 AM Results f or this CDT procedure are i n the results section. documented in this encounter Results (ABNORMAL) Hemoglobin, Blood (09/29/2006 4:45 AM CDT) athologist Signature Hemoglobin 10.5 (L) 11.8 - 15.5 HP CONVERSION gm/dL Specimen (Source) Anatomical Collection Method Collection Time Re ceived Time Location / / Volume Laterality 09/29/2006 4:45 AM CDT Koki Cowan MD LAB_1 Performing Organization Address City/State/ZIP Code Phon e Number HP CONVERSION Cytology Report (09/28/2006 8:15 PM CDT) athologist Signature Cytology SEE TEXT No normal HP CONVERSION range Comment: Patient: MEGAN WILD ? CYTOLOGY REPORT Pathology # ??[id number] ?Date Obtained: ? Date Received: DIAGNOSIS: ?Pelvic washings: ?- Negative for malignant cells. ?Mily Cook M.D. ?(electronic signature) RPW/RPW/beh Date of Report: 09/29/06 Pathology # ??[id number] ?Date Obtained: ? Date Received: SITE: ?Pelvic washing GROSS DESCRIPTION: ?The specimen designated pelvic was jonnathan consists of 100 ml of light pink ?fluid. ??Three cytospins, 1 Mckay 's stained smear, and 1 cell block are ?made from the specimen and submitt ed for cytologic study. [facility] MICROSCOPIC DESCRIPTION: ?The concentrated cytospin preparat ions and cell block section material ?include a mixture of blood and mod est numbers of benign mesothelial cells, ?occurring singly and in small clus ters and sheets. ??No cytologically ?malignant cells are identified in this material. Specimen (Source) Anatomical Collection Method Collection Time Re ceived Time Location / / Volume Laterality 09/28/2006 8:15 PM CDT Genevieve Subramanian MD LAB_1 Performing Organization Address City/State/ZIP Code Phon e Number HP CONVERSION Pathology Report (09/28/2006 1:02 PM CDT) [facility] gist Method Time Signature Surgical SEE TEXT No normal HP CONVERSION Pathology range Comment: Patient: MEGAN WILD ?S URGICAL PATHOLOGY REPORT Pathology # ??[id number] ?Date Obtained: ? Date Received: DIAGNOSIS: ?Uterus, bilateral fallopian tubes and ovaries, hysterectomy and ?salpingo-oophorectomy: ?1. Adenomyosis. ?2. Leiomyoma. ?3. Benign bilateral ovaries and fa llopian tubes (entirely submitted). ?4. Benign cervix. ?5. Benign proliferative phase endo metrium. ?Johnson Carl M.D. ?(electronic signature) JSM/JSM/kjs Date of Report: 09/29/06 Pathology # ??[id number] ?Date Obtained: ? Date Received: ORGAN/TISSUE SITE: ?Uterus, cervix, bilateral tubes an d ovaries. GROSS DESCRIPTION: ?The specimen is received fresh, la beled uterus, cervix, bilateral tubes ?and ovaries and consists of a 217 gm, 11.4 x 6.8 x 6.0 cm uterus with ?bilaterally attached fallopian tub es and ovaries. ??The serosal surface is ?rollins-pink and smooth. ??The ectocer vix is rollins, focally hyperemic, and ?glistening with a diameter of 4.2 cm. ??The uterus is opened to reveal a ?rollins, hemorrhagic endometrium with a maximum thickness of 0.1 cm. ??The ?myometrium is rollins-pink with a maxi mum thickness of 2.6 cm and contains a ?single rollins-white intramuscular nod ule measuring 3.8 cm in greatest ?dimension. ??Cross sections reveal rollins-white, whorled cut surfaces with no ?areas of hemorrhage or necrosis. ? ?Odd Job Worker sections are submitted. ?The right adnexa consists of a 7.5 x 0.2 cm rollins-pink fallopian tube and an ?attached 3.6 x 2.5 x 1.3 cm rollins-pi nk, convoluted ovary. ??Cross sections ?through the ovary reveal two hemor rhagic cortical cysts averaging 0.8 cm ?in greatest dimension and a hemorr hagic corpus luteum measuring 0.6 cm in ?greatest dimension. ??The remainde r of the ovary is grossly unremarkable. ?The ovary is entirely submitted. ?The left adnexa consists of a 7.5 x 0.2 cm rollins-pink fallopian tube with an ?attached 2.4 x 1.5 x 1.0 cm rollins-pi nk, convoluted ovary. ??Cross sections ?reveal rollins-pink, grossly unremarka ble cut surfaces. ??The ovary is entirely ?submitted. ?Summary of sections: ??Block 1, an terior cervix; block 2, posterior cervix; ?block 3, anterior endomyometrium; block 4, posterior endomyometrium; block ?5, myoma and endomyometrium; block 6, right fallopian tube; block 7 ?through 9, right ovary; block 10, left fallopian tube; block 11 through ?13, left ovary. AMW/ajn MICROSCOPIC DESCRIPTION: ?The microscopic examination substa ntiates the diagnosis cited. Specimen (Source) Anatomical Collection Method Collection Time Re ceived Time Location / / Volume Laterality 09/28/2006 1:02 PM CDT Genevieve Subramanian MD LAB_1 Performing Organization Address [facility] Phon e Number HP CONVERSION Draw & Hold (09/28/2006 7:20 AM CDT) athologist Signature Draw And Hold Done No normal HP CONVERSION range Specimen (Source) Anatomical Collection Method Collection Time Re ceived Time Location / / Volume Laterality 09/28/2006 7:20 AM CDT Genevieve Subramanian MD LAB_1 Performing Organization Address [facility] Phon e Number HP CONVERSION Bedside Glucose Monitor (09/28/2006 6:37 AM CDT) athologist Signature Bedside Blood 99 mg/dL HP CONVERSION Glucose Test Blood Glucose * No normal HP CONVERSION Screen, range Comment 1 Blood Glucose * No normal HP CONVERSION Screen, range Comment 2 Blood Glucose * No normal HP CONVERSION Screen, range Comment 3 Specimen (Source) Anatomical Collection Method Collection Time Re ceived Time Location / / Volume Laterality 09/28/2006 6:37 AM CDT Genevieve Subramanian MD LAB_1 Performing Organization Address [facility] Phon e Number HP CONVERSION MRSA Culture (09/28/2006 5:51 AM CDT) Analysis Performed At Patho logist Time Signature Culture Mrsa SEE TEXT HP CONVERSION Screen Comment: Patient: MEGAN WILD Culture, MRSA Screen @ ?Collected: ??[id number] ??[id number] Source: OSBALDO ? Processed: ??[id number] ??[id number] ? OSBALDO Final Report ------ ?[id number] ??[id number] No Methicillin resistant Staph aureus is olated. @ = MRSA SCREEN Performed at ??[address] [place], [place] ?[address] Specimen (Source) Anatomical Collection Method Collection Time Re ceived Time Location / / Volume Laterality 09/28/2006 5:51 AM CDT Genevieve Subramanian MD LAB_1 Performing Organization Address City/State/ZIP Code Phon e Number HP CONVERSION documented in this encounter Visit Diagnoses Not on filedocumented in this encounter Care Teams Load Builder Relationship Specialty Start Date End Date Unassigned, Provider PCP - General 11/18/99 05/18/10 [address] [place] [address] documented as of this encounter
--- OUTSIDE RECORDS SUMMARY | 2021-12-03 11:46 | XMS_ITS | Encounter Summary ---
:1955 Author [facility] Address [address] [place] [address] Care Team Providers Name Role Phone Bj Pelletier MD Primary Care Provider Unavailable Encounter Details Date Type Department Care Team Description 09/20/2006 Office Visit Specialty Center 39[address] Haydee Subramanian MD Gynecology Oncology [address] 5[address] [place] [address] [phone] Social History Tobacco Use Types Packs/Day Years Used Date Smoking Tobacco: Never Assessed Sex Assigned at Date Recorded Female 10/03/2020 11:17 AM CDT documented as of this encounter Last Filed Vital Signs Vital Sign Reading Time Taken Comments Blood Pressure 100/60 09/20/2006 11:13 AM CDT Pulse - - Temperature - - Respiratory Rate - - Oxygen Saturation - - Inhaled Oxygen Concentration - - Weight 63 kg (138 lb 15.7 oz) 09/20/2006 11:13 AM C: 63 .0kg CDT Height 162.6 cm (5' 4) 09/20/2006 11:13 AM C: 162.6cm CDT Body Mass Index 23.86 09/20/2006 11:13 AM CDT documented in this encounter Progress Notes Chacho Subramanian MD - 09/20/2006 12:01 AM CDT Progress Notes signed by Chacho Subramanian MD at 10/27/06 1205 Author: Chacho Subramanian MD Service: (none) Author Type: Physician Filed: 06/06/102030 Note Time: 09/20/06 0001 Status: Signed Skiver Machine: Chacho Subramanian MD (Physician) NAME: MEGAN WILD MR#: [id number] ACCT: VISIT: [id number] DICTATING CLINICIAN: CHACHO SUBRAMANIAN MD JOB: [id number] LOC: 256 CLINIC PROGRESS NOTE DATE OF VISIT: 09/20/06 SUBJECTIVE: This is a note of follow up on Megan العلي, a 50-year-old, female, recently evaluated by my partner, Dr. Kendra Dobson, for the evaluation and management of a family history of ovarian carcinoma, colon carcinoma and pelvic pain with fibroids. HISTORY OF PRESENT ILLNESS: Outlined in Dr. Dobson's note of 07/28/06. She has subsequently had some scheduling conflicts and has ultimately been evaluated by Dr. Huy Arshad for a history of incontinence as well. As a result of these two issues she is presenting for surgery on 09/28 and is here for a preoperative evaluation. Her review is negative for fever, chills, nausea, vomiting, constipation, diarrhea or dysuria (except as her baseline which includes mild to moderate constipation). She has no neurologic, psychiatric, HEENT, dermatologic, ophthalmologic, musculoskeletal, hematologic, lymphatic, cardiovascular, pulmonary, or complaints. She does have some pressure sensation in the rectum particularly upon sitting. MEDICATIONS: Reviewed and she is on Prevacid as her only prescription medication. OBJECTIVE: On physical examination today she is well appearing and in no acute distress. NEUROLOGIC: She is alert and oriented, moves all extremities without difficulty. PSYCHIATRIC: She is pleasant, interactive and appropriate in conversation. HEENT: Exam is grossly within normal limits. LYMPH NODES: Survey including anterior cervical, supraclavicular, axillary and groin nodes is within normal limits. HEART: Regular rate and rhythm. LUNGS: Clear to auscultation. BREASTS: Examination was performed. There are no dominant masses. No axillary masses. No expression from the nipples. ABDOMEN: Soft, nontender, nondistended. She has a right lower quadrant hernia incision which has healed nicely. LOWER EXTREMITIES: Symmetric, without significant edema. PELVIC: Examination reveals grossly normal external genitalia. The vagina is grossly normal. The cervix is large, mobile and grossly within normal limits. The uterus is retroverted and large. There is significant posterior component which impinges on the rectum. ASSESSMENT: Fibroid uterus. Family history worrisome but with negative BRCA 1 and BRCA 2 testing. PLAN: We discussed the relative risks and benefits of exploratory laparotomy as well as laparoscopy as a BSO or laparoscopic hysterectomy and BSO. The patient understands that her pain may or may not be relieved by the surgery but that her risk for a malignancy should be reduced significantly. She also understands that primary peritoneal carcinoma which is a secondary concern in this case may not be remediated in this fashion. I have answered her questions to the best of my ability and she is tentatively scheduled for a laparoscopic removal of tubes, ovaries and possible open surgery as staging should the lesion not be removable. JAUN:[id number] C: 09/20/06 13:59 DOCUMENT: [id number] documented in this encounter Plan of Treatment Not on filedocumented as of this encounter Visit Diagnoses Not on filedocumented in this encounter Care Teams Protection Mgr Relationship Specialty Start Date End Date Bj Pelletier MD PCP - General 05/19/[address] [facility], [address] documented as of this encounter
--- OUTSIDE RECORDS SUMMARY | 2021-12-03 11:46 | XMS_ITS | Encounter Summary ---
:1955 Author Organization [facility] Address [address] [place] [address] Care Team Providers Name Role Phone Bj Pelletier MD Primary Care Provider Unavailable Encounter Details Date Type Department Care Team Description 11/06/2010 Correspond[facility] d[facility] APPT [address] [place] [address] Social History Tobacco Use Types Packs/Day Years Used Date Smoking Tobacco: Never Assessed Sex Assigned at Date Recorded Female 10/03/2020 11:17 AM CDT documented as of this encounter Progress Notes Interface, In Chrtscr And Scan - 01/02/2011 8:15 AM CLINICAL APPLICATION CONSULTANT ICAL APPLICATION CONSULTANT documented in this encounter Plan of Treatment Not on filedocumented as of this encounter Visit Diagnoses Not on filedocumented in this encounter Care Teams Supervisor Cabinetmaker Relationship Specialty Start Date End Date Bj Pelletier MD PCP - General 05/19/[address] [place] [address] documented as of this encounter
--- OUTSIDE RECORDS SUMMARY | 2021-12-03 11:46 | XMS_ITS | Encounter Summary ---
:1955 Author Organization [facility] Address [address] [place] [address] Care Team Providers Name Role Phone Bj Pelletier MD Primary Care Provider Unavailable Reason for Visit Reason Comments Other Encounter Details Date Type Department Care Team Description 10/22/2006 Telephone [facility] [address] Kelli Albarran Other Obstetrics/Gynecolog y [address] [place] [address] Social History Tobacco Use Types Packs/Day Years Used Date Smoking Tobacco: Never Assessed Sex Assigned at Date Recorded Female 10/03/2020 11:17 AM CDT documented as of this encounter Progress Notes Kelli Albarran - 10/22/2006 8:57 AM CDT Phone Note filed by Kelli Albarran RN at 06/04/10399 Author: Kelli Albarran RN Service: (none) Author Type: (none) Filed: 06/04/10399 Note Time: 10/22/06856 Status: Signed Fiscal Clerk: Cachorro Feldman CLINICIAN FOLLOW-UP: None IMPRESSION: SYMPTOMS: Pt calling post hyst on Sep 28 with concerns of a stich pulling on the left side. She states it is started to pinch with movement and she wonders if she could come in for appt. Otherwise, healing is ok. Denies emergent, urgent, semi-urgent symptoms PATIENT INFORMATION: Status: Not --- Breast-Feeding Status: N/A INTERIM/HOME MANAGEMENT RECOMMENDATIONS: Pt scheduled for appt Wednesday afternoon. Advised to go to u.c. if extremely painful or if pus or redness forms. Pt advised to have light activity over the weekend, no lifting or twisting. Advised to callback if any of the following occur: any other questions or concerns. PLAN: SCHEDULE APPOINTMENT WITHIN 48 HOURS Patient/Caller agrees with plan and denies additional questions. Call Complete. *OJ~PNGONZALO~SCHOLAR ~ Created on 22Oct2006 8:57am by KELLI ALBARRAN AL WORK CASE MANAGER documented in this encounter Plan of Treatment Not on filedocumented as of this encounter Visit Diagnoses Not on filedocumented in this encounter Care Teams Director Of Agronomy Relationship Specialty Start Date End Date Bj Pelletier MD PCP - General 05/19/[address] [facility], [address] documented as of this encounter
--- OUTSIDE RECORDS SUMMARY | 2021-12-03 11:46 | XMS_ITS | Encounter Summary ---
:1955 Author Organization [facility] Address [address] [place] [address] Care Team Providers Name Role Phone Bj Pelletier MD Primary Care Provider Unavailable Encounter Details Date Type Department Care Team Description 08/03/2006 Office Visit Specialty Center [facility] Skylar Hall MD Urogynecology [address] [place] [address] [address] [place], [place] [address] [place] [address] [phone] (Wo rk) Social History Tobacco Use Types Packs/Day Years Used Date Smoking Tobacco: Never Assessed Sex Assigned at Date Recorded Female 10/03/2020 11:17 AM CDT documented as of this encounter Last Filed Vital Signs Vital Sign Reading Time Taken Comments Blood Pressure 120/70 08/03/2006 8:10 AM CDT Pulse 68 08/03/2006 8:10 AM CDT Temperature - - Respiratory Rate - - Oxygen Saturation - - Inhaled Oxygen Concentration - - Weight 63 kg (138 lb 15.7 oz) 08/03/2006 8:10 AM CDT C: 63.0kg Height - - Body Mass Index 23.86 07/28/2006 11:13 AM CDT documented in this encounter Progress Notes Huy Hall - 08/03/2006 12:01 AM CDT Progress Notes signed by Huy Hall MD at 08/03/06 4758 Author: Huy Hall MD Service: (none) Author Type: (none) Filed: [id number] Note Time: 08/03/06 0001 Status: Signed Tricot Knitter: Huy Hall MD (Physician) NAME: MEGAN WILD MR#: [id number] ACCT: [id number] VISIT: [id number] DICTATING CLINICIAN: HUY HALL MD JOB: [id number] LOC: 210 CLINIC PROGRESS NOTE DATE OF VISIT: 08/03/2006 SUBJECTIVE: Megan العلي is a 50-year-old patient vaginal delivery times three who comes today in consultation from Dr. Nata Dobson for complaints of urinary incontinence and cystocele. PAST MEDICAL HISTORY: Previous surgeries include dilatation of esophageal stricture, oral surgery, femoral hernia repair on the right 2004, history of cystoscopy with multiple urethral dilatations every nine months to a year dating back to age 19. MEDICATIONS: Reviewed. She is on Prevacid, her only prescription medication. Other vitamins. ADR/ALLERGIES: BACTRIM. She does not smoke. Consumes one or two beers a day. She has regular menses. Just began today. 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 She has had a long discussion with Dr. Dobson regarding her family history of ovarian cancer, negative BRCA 1/2. She has elected to undergo hysterectomy with oophorectomy. She completed a questionnaire but not a diary. 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 Regarding her urethral dilatation, she states this was done for frequent urinary tract infections and that she notices after nine months or a year that she is voiding less well and has some symptoms of a bladder infection and then goes and has a urethral dilatation. Regarding bowel movements, she has a daily bowel movement with Senokot. No fecal incontinence, no splinting. She does not leak every day. Does not wear protection for leakage. She can be at risk for leaking when she is running if it is vigorous, although sometimes she runs without leaking. Doing aerobics can put her at risk for leaking. Coughing, sneezing, and laughing with occasional loss as well. No significant urge incontinence symptoms. She has tried to do pelvic floor exercises on her own but not with physical therapy. She does leak with orgasm but not the act of intercourse. OBJECTIVE: VS: BP: 120/78. P: 68. Wt: 139. ABDOMEN: Soft and nontender. No masses. INGUINAL: Negative. There is a right inguinal scar from her femoral hernia repair. NEURO: Oriented to person, place, and time. SKIN: Normal color. PELVIC: Sensation normal to sharp and dull on the perineum, bulbocavernosus anal reflex present bilaterally. There was a moderate amount of urine loss with cough. Pelvic floor muscle strength 3/5. 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 AaBa 0. The cervix comes 3 cm above the hymen with straining. She also has the posterior vagina rectocele that comes just to the hymen with straining. Pelvic floor muscle strength 3/5. No other examination was done as that had been done just last week with Dr. Dobson. DISCUSSION: We discussed her situation. Total visit time 40 minutes over half spent in consultation time. She has occasional stress incontinent symptoms now and some evidence of prolapse, although not severe. She does state that around the time of her menses or before, she will notice some cyclic pressure sensation in the vaginal area that I think would be consistent with her examination. If she were not having the hysterectomy done, it is not likely that she would seek surgery for her incontinence at this time and/or prolapse. I think ultimately, it depends on how much her symptoms bother her as to whether or not she would want to address those at the time of this upcoming surgery. She thinks she may well have the surgery some time in September and if so, that would give her time to go to physical therapy to try and do some pelvic floor strengthening. She does have some room for improvement in this area. It is possible that if she undergoes a hysterectomy, has some sort of apical support of her cuff at the time of hysterectomy, that she may with physical therapy be able to be essentially asymptomatic and satisfied and not need any other surgery and I think a conservative approach is reasonable at this time and as well, she agrees. If she went to physical therapy, did not have any relief, and even had some worsening of incontinence between now and her surgery, it would be worthwhile reconsidering doing something in the same setting as Dr. Dobson for the incontinence and prolapse. The patient's questions were all answered. At this point, she will go to physical therapy and we will plan accordingly pending those results. We also had a lengthy discussion regarding her urethral dilatations. The fact that serial urethral dilatations for the symptoms that she has has fallen out of favor more recently and there is a potential in theory of some harm to the urethra termite exterminator if she continues to do this. It may be that she has urethral syndrome and/or interstitial cystitis as a component of what is going on and I think it would be worthwhile before she has another urethral dilatation to track her symptoms. If she thinks she has a bladder infect, do a urine test and even consider other treatments besides the dilatations, potentially pharmacologic for these symptoms depending upon her response. I offered to follow up with her regarding this as well. ASSESSMENT: 1. Stress incontinence mild. 2. Cystocele, rectocele. PLAN: See above. FINAL IMPRESSION: 1. Stress incontinence mild. 2. Cystocele, rectocele. CC: NATA DOBSON MD MTV:[id number] C: 08/03/06 11:29 DOCUMENT: [id number] documented in this encounter Plan of Treatment Not on filedocumented as of this encounter Visit Diagnoses Not on filedocumented in this encounter Care Teams Marble Polisher Hand Relationship Specialty Start Date End Date Bj Pelletier MD PCP - General 05/19/[address] [facility], [address] documented as of this encounter
--- OUTSIDE RECORDS SUMMARY | 2021-12-03 11:46 | XMS_ITS | Encounter Summary ---
:1955 [facility] Address [address], [place] [address] Care Team Providers Name Role Phone Bj Pelletier MD Primary Care Provider Unavailable Reason for Visit Reason Comments Other Encounter Details Date Type Department Care Team Description 10/01/2006 Telephone CONV GYNECOLOGY ONC Chacho Subramanian MD Other [address] [place] [address] [facility] 5th Floor [facility] N [address] (Wo rk) Social History Tobacco Use Types Packs/Day Years Used Date Smoking Tobacco: Never Assessed Sex Assigned at Date Recorded Female 10/03/2020 11:17 AM CDT documented as of this encounter Progress Notes Conversion, [facility] - 10/01/2006 2:46 PM CDT Phone Note filed by [facility] Conversion at 06/04/10 0238 Author: [facility] Conversion Service: (none) Author Type: (none) Filed: 06/04/10 0238 Note Time: 10/01/06 1446 Status: Signed Mine Boss: [facility] Conversion Message Complete, FYI only. Had Hysterectomy on 09/28/06. Has noticed lower back pain. Had back pain before surgery. Is worried if this is normal. Was told this was common and that she could apply heat to lower back for 20 minutes on and 20 minutes off. She has discontinued her narcotic pain medication because it made her loopy. Was told to switch to Advil or Extra Strength Tylenol and to use this on a regular basis as directed on bottle. She was told to call back if back pain became worse. Created on 01Oct2006 2:46pm by ROMAN SIMMONS PACKER documented in this encounter Plan of Treatment Not on filedocumented as of this encounter Visit Diagnoses Not on filedocumented in this encounter Care Teams Minibus Driver Relationship Specialty Start Date End Date Bj Pelletier MD PCP - General 05/19/[address] [facility], [address] documented as of this encounter
--- OUTSIDE RECORDS SUMMARY | 2021-12-03 11:46 | XMS_ITS | Encounter Summary ---
:[address] [facility] Address [address], [place] [address] Care Team Providers Name Role Phone Unassigned, Provider Primary Care Provider Unavailable Reason for Visit Procedure/Equipment (Routine) - Incomplete Specialty Diagnoses / Procedures Referred By Contact Refer red To Contact Procedures Provider, Foreign Images Foreign Image(S) Mammogram [address] [place] [address] Referral ID Status Reason Start Date Expiration Date Visits V isits Requested Authorized [id number] Incomplete 06/17/2021 09/16/2022 1 1 Encounter Details Date Type Department Care Team Description 03/16/2007 Ancillary Procedure [facility] PACS Provider, [place] [address] [address] [place] [address] Social History Tobacco Use Types Packs/Day Years Used Date Smoking Tobacco: Never Assessed Sex Assigned at Date Recorded Female 10/03/2020 11:17 AM CDT documented as of this encounter Plan of Treatment Not on filedocumented as of this encounter Procedures Procedure Name Priority Date/Time Associated Diagnosis Comme nts FOREIGN IMAGE(S) Routine 03/16/2007 2:00 PM Resul ts for this MAMMOGRAM PRICING STRATEGIST procedure are i n the results section. documented in this encounter Results Foreign Image(S) Mammogram (03/16/2007 2:00 PM PRICING STRATEGIST) Specimen (Source) Anatomical Location Collection Method / Collectio n Time Received Time / Laterality Volume Narrative POCT - 06/17/2021 10:32 AM CDT These outside images have been uploaded into PACS. If the results were provided, they will be located in the rea eduardo's chart under the Media or Imaging tab. Foreign Images Provider RAD NON-REPORTABLES Performing Organization Address City/State/ZIP Code Phon e Number POCT documented in this encounter Visit Diagnoses Not on filedocumented in this encounter Care Teams Class A Lineman Relationship Specialty Start Date End Date Unassigned, Provider PCP - General 11/18/99 05/18/10 [address] [place] [address] documented as of this encounter
--- OUTSIDE RECORDS SUMMARY | 2021-12-03 11:46 | XMS_ITS | Encounter Summary ---
:1955 Author Organization [facility] Address [address] [place] [address] Care Team Providers Name Role Phone Bj Pelletier MD Primary Care Provider Unavailable Encounter Details Date Type Department Care Team Description 12/01/2010 [facility] [address] [place], [place] [address] Social History Tobacco Use Types Packs/Day Years Used Date Smoking Tobacco: Never Assessed Sex Assigned at Date Recorded Female 10/03/2020 11:17 AM CDT documented as of this encounter Progress Notes Interface, In Chrtscr And Scan - 01/14/2011 11:16 AM CALL WORKER WORKER documented in this encounter Plan of Treatment Not on filedocumented as of this encounter Visit Diagnoses Not on filedocumented in this encounter Care Teams Support Services Rep Relationship Specialty Start Date End Date Bj Pelletier MD PCP - General 05/19/[address] [place] [address] documented as of this encounter
--- OUTSIDE RECORDS SUMMARY | 2021-12-03 11:46 | XMS_ITS | Encounter Summary ---
:1955 Author Organization [facility] Address [address] [place] [address] Care Team Providers Name Role Phone Bj Pelletier MD Primary Care Provider Unavailable Reason for Visit Reason Comments Other Encounter Details Date Type Department Care Team Description 10/11/2006 Telephone Specialty [facility] Cindy Castañeda MD Other Gynecology Oncology [address] [place] [address] [facility] 5th [place] [address] [place] [address] [phone] (Wo rk) Social History Tobacco Use Types Packs/Day Years Used Date Smoking Tobacco: Never Assessed Sex Assigned at Date Recorded Female 10/03/2020 11:17 AM CDT documented as of this encounter Progress Notes Thomas Cook RN - 10/11/2006 10:38 AM CDT Phone Note filed by Silme Cook RN at 06/04/10309 Author: Slime Cook RN Service: (none) Author Type: (none) Filed: 06/04/10309 Note Time: 10/11/06 1038 Status: Signed Automobile Carpets Molder: Slime Cook RN (Registered Nurse) MESSAGE TO CARE TEAM NAME OF CALLER:megan luu NAME OF CLINICIAN:cindy castañeda MESSAGE:patient was seen in urgent care on sat at [facility]. patient has a kidney infection and was placed on cipro 500 mg 2X per day for 7 days.she says she was told to call her dr on wed. urine culture wont be back til today. patient does have a urologist and will call and see if she can have a follow up appt with him today.she says she has some discomfort in the right kidney area today. no fever.urologist can see pt on wedoct 13. pt to call family practitioner and inform him of kidney infection Message Complete, FYI only. PHARMACY NAME:[facility] PHONE #:[phone] CITY: CALL BACK PHONE OR CELL PHONE:[phone] BEST TIME TO CALL BACK: IS IT OK TO LEAVE A CONFIDENTIAL MESSAGE ON THIS VOICEMAIL? *ECODE~PNMSG Created on 11Oct2006 10:38am by SLIME COOK On 11Oct2006 10:48am SLIME COOK wrote: patient has an appt tody at her family practice clinic at [facility] at 345 pm. to have kidney pain assessed. Message Complete, FYI only. Acknowledged by KOBE MENDEZ on 11:20am Acknowledged by GENEVIEVE CASTAÑEDA on 12:22pm TRICAL INTERN documented in this encounter Plan of Treatment Not on filedocumented as of this encounter Visit Diagnoses Not on filedocumented in this encounter Care Teams Computer Lab Aide Relationship Specialty Start Date End Date Bj Pelletier MD PCP - General 05/19/[address] [place], [address] documented as of this encounter
--- OUTSIDE RECORDS SUMMARY | 2021-12-03 11:46 | XMS_ITS | Encounter Summary ---
:1955 Author Organization [facility] Address [address] [place] [address] Care Team Providers Name Role Phone Bj Pelletier MD Primary Care Provider Unavailable Encounter Details Date Type Department Care Team Description 09/20/2006 PN Conversion Only [place] [facility] [place] kamara MD [address] [place] [address] [facility] 5th Floor [place], [place] [address] (Wo rk) Social History Tobacco Use Types Packs/Day Years Used Date Smoking Tobacco: Never Assessed Sex Assigned at Date Recorded Female 10/03/2020 11:17 AM CDT documented as of this encounter Plan of Treatment Not on filedocumented as of this encounter Procedures Procedure Name Priority Date/Time Associated Comments Diagnosis ELECTROLYTES (NA, K, Routine 09/20/2006 12:25 Res ults for this CL, BICARB) PM CDT procedure are i n the results section. BLOOD GROUP & RH Routine 09/20/2006 12:25 Results for this (BLOOD TYPE) PM CDT procedure are i n the results section. ANTIBODY SCREEN Routine 09/20/2006 12:25 Results for this PM CDT procedure are i n the results section. GLUCOSE Routine 09/20/2006 12:25 Results for this PM CDT procedure are i n the results section. CREATININE / GFR Routine 09/20/2006 12:25 Results for this PM CDT procedure are i n the results section. COMPLETE BLOOD Routine 09/20/2006 12:25 Results f or this COUNT-W/DIFF PM CDT procedure are i n the results section. CALCIUM Routine 09/20/2006 12:25 Results for this PM CDT procedure are i n the results section. BUN Routine 09/20/2006 12:25 Results for this PM CDT procedure are i n the results section. documented in this encounter Results (ABNORMAL) Complete Blood Count-W/Diff (09/20/2006 12:25 PM CDT) Patholo gist Method Time Signature White Blood Cell 7.6 3.8 - 11.0 HP CONVERSIO N Count K/cmm Red Blood Cell 3.89 3.70 - HP CONVERSION Count 5.20 m/cmm Hemoglobin 12.9 11.8 - HP CONVERSION 15.5 gm/dL Hematocrit 37.3 35.0 - HP CONVERSION 46.0 % Mean Corpuscular 95.7 80.0 - HP CONVERSION Volume 100.0 fl Mean Corpuscular 33.0 27.0 - HP CONVERSION Hemoglobin 34.0 pg Mean Corpuscular 34.5 32.0 - HP CONVERSION Hemoglobin Conc 36.5 gm/dL [place] RDW 12.0 11.0 - HP CONVERSION 15.0 % Platelet Count 275 140 - 450 HP CONVERSION k/cmm Differential Auto-Dif No normal HP CONVERSION Verify range Neutrophils 5.4 2.0 - 7.5 HP CONVERSION Absolute Count K/cmm Neutrophil 71.6 50.0 - HP CONVERSION 75.0 % Lymphocyte % 18.9 (L) 20.0 - HP CONVERSION 40.0 % Monocyte 6.0 5.0 - 14.0 HP CONVERSION % Eosinophil 2.7 0.0 - 6.0 HP CONVERSION % Basophil % 0.8 0.0 - 2.0 HP CONVERSION % Specimen (Source) Anatomical Collection Method Collection Time Re ceived Time Location / / Volume Laterality 09/20/2006 12:25 PM CDT Chacho Subramanian MD LAB_1 Performing Organization Address City/State/ZIP Code Phon e Number HP CONVERSION Antibody Screen (09/20/2006 12:25 PM CDT) P athologist Signature N/O BB NEG No normal HP CONVERSION ANTIBODY range SCREEN Comment: Performed by Solid Phase Techni que Specimen (Source) Anatomical Collection Method Collection Time Re ceived Time Location / / Volume Laterality 09/20/2006 12:25 PM CDT Chacho Subramanian MD PN BLOOD BANK ORDERS Performing Organization Address City/State/ZIP Code Phon e Number HP CONVERSION Creatinine / GFR (09/20/2006 12:25 PM CDT) athologist Signature Creatinine 0.7 0.4 - 1.3 HP CONVERSION Serum mg/dL Specimen (Source) Anatomical Collection Method Collection Time Re ceived Time Location / / Volume Laterality 09/20/2006 12:25 PM CDT Chacho Subramanian MD LAB_1 Performing Organization Address City/[facility] Code Phon e Number HP CONVERSION Glucose (09/20/2006 12:25 PM CDT) athologist Signature Length Of Fast 2.5 Hours HP CONVERSION Comment: The fasting period is suboptima l, less than 8 hours. Lab Glucose 100 60 - 100 mg/dL HP CONVERSION Specimen (Source) Anatomical Collection Method Collection Time Re ceived Time Location / / Volume Laterality 09/20/2006 12:25 PM CDT Chacho Subramanian MD LAB_1 Performing Organization Address City/[facility] Phon e Number HP CONVERSION Electrolytes (NA, K, CL, Bicarb) (09/20/2006 12:25 PM CDT) athologist Signature Sodium 140 137 - 147 HP CONVERSION mEq/L Potassium 4.0 3.5 - 5.2 HP CONVERSION mEq/L Chloride 103 98 - 110 HP CONVERSION mEq/L Bicarbonate 27 23 - 33 HP CONVERSION mmol/L Specimen (Source) Anatomical Collection Method Collection Time Re ceived Time Location / / Volume Laterality 09/20/2006 12:25 PM CDT Chacho Subramanian MD LAB_1 Performing Organization Address City/[facility] Code Phon e Number HP CONVERSION BUN (09/20/2006 12:25 PM CDT) athologist Signature Blood Urea 10 5 - 26 HP CONVERSION Nitrogen mg/dL Specimen (Source) Anatomical Collection Method Collection Time Re ceived Time Location / / Volume Laterality 09/20/2006 12:25 PM CDT Chacho Subramanian MD LAB_1 Performing Organization Address City/[facility] Code Phon e Number HP CONVERSION Calcium (09/20/2006 12:25 PM CDT) P athologist Signature Calcium 9.7 8.5 - 10.5 HP CONVERSION mg/dL Specimen (Source) Anatomical Collection Method Collection Time Re ceived Time Location / / Volume Laterality 09/20/2006 12:25 PM CDT Chacho Subramanian MD LAB_1 Performing Organization Address [facility] Phon e Number HP CONVERSION Blood Group & Rh (Blood Type) (09/20/2006 12:25 PM CDT) athologist Signature BB BLOOD TYPE O POS No normal HP CONVERSION (BLOOD GROUP & range RH) Specimen (Source) Anatomical Collection Method Collection Time Re ceived Time Location / / Volume Laterality 09/20/2006 12:25 PM CDT Chacho Subramanian MD PN BLOOD BANK ORDERS Performing Organization Address [facility] Phon e Number HP CONVERSION documented in this encounter Visit Diagnoses Not on filedocumented in this encounter Care Teams Supercalender Operator Helper Relationship Specialty Start Date End Date Bj Pelletier MD PCP - General 05/19/[address] [facility], [address] documented as of this encounter
--- OUTSIDE RECORDS SUMMARY | 2021-12-03 11:46 | XMS_ITS | Encounter Summary ---
:1955 Author Organization [facility] Address [address] [place] [address] Care Team Providers Name Role Phone Bj Pelletier MD Primary Care Provider Unavailable Reason for Visit Reason Comments MANTOUX/PPD [facility] Encounter Details Date Type Department Care Team Description 12/01/2010 Office Visit [facility] defined subpopulation [address] [facility] [address] [place] [address] Social History Tobacco Use Types Packs/Day Years Used Date Smoking Tobacco: Never Assessed Sex Assigned at Date Recorded Female 10/03/2020 11:17 AM CDT documented as of this encounter Progress Notes Thao Mohan CMA - 12/01/2010 2:17 PM CDT Megan العلي is here today for a Mantoux test. Test is ordered by employer, [employer]. She is advised to return to clinic in 48 to 72 hours to have Mantoux read. Thao Mohan CMA documented in this encounter Plan of Treatment Not on filedocumented as of this encounter Visit Diagnoses Diagnosis Health examination of defined subpopulat ion - Primary documented in this encounter Care Teams Manager Of Disaster Recovery Relationship Specialty Start Date End Date Bj Pelletier MD PCP - General 05/19/[address] [place], [address] documented as of this encounter
--- OUTSIDE RECORDS SUMMARY | 2021-12-03 11:46 | XMS_ITS | Encounter Summary ---
:1955 Author Organization [facility] Address [address] [place] [address] Care Team Providers Name Role Phone Bj Pelletier MD Primary Care Provider Unavailable Encounter Details Date Type Department Care Team Description 09/28/2006 Notes/Orders CONVERSION CONVERSION Conversion , [place] [address] Social History Tobacco Use Types Packs/Day Years Used Date Smoking Tobacco: Never Assessed Sex Assigned at Date Recorded Female 10/03/2020 11:17 AM CDT documented as of this encounter Plan of Treatment Not on filedocumented as of this encounter Procedures Procedure Name Priority Date/Time Associated Diagnosis Comme nts LAP VAG HYST UTRUS 250 Routine 09/28/2006 5:39 PM CDT GMS/<; T&/O documented in this encounter Results Lap Vag Hyst Utrus 250 Gms/<; T&/O (09/28/2006 5:39 PM CDT) Specimen (Source) Anatomical Location Collection Method / Collectio n Time Received Time / Laterality Volume User Conversion PROC_1 Performing Organization Address City/State/ZIP Code Phon e Number HP CONVERSION documented in this encounter Visit Diagnoses Not on filedocumented in this encounter Care Teams Chemical Test Engineer Relationship Specialty Start Date End Date Bj Pelletier MD PCP - General 05/19/[address] [facility] [address] documented as of this encounter
--- OUTSIDE RECORDS SUMMARY | 2021-12-03 11:46 | XMS_ITS | Encounter Summary ---
:1955 Author [facility] Address [address] [place] [address] Care Team Providers Name Role Phone Bj Pelletier MD Primary Care Provider Unavailable Encounter Details Date Type Department Care Team Description 06/17/2010 PN Conversion Only CONVERSION CONVERSION Bj Pelletier MD [address] [place] [address] Social History Tobacco Use Types Packs/Day Years Used Date Smoking Tobacco: Never Assessed Sex Assigned at Date Recorded Female 10/03/2020 11:17 AM CDT documented as of this encounter Plan of Treatment Not on filedocumented as of this encounter Visit Diagnoses Not on filedocumented in this encounter Care Teams Interventional Radiology Tech Relationship Specialty Start Date End Date Bj Pelletier MD PCP - General 05/19/[address] [place] [address] documented as of this encounter
--- OUTSIDE RECORDS SUMMARY | 2021-12-03 11:46 | XMS_ITS | Encounter Summary ---
:1955 Author [facility] Address [address] [place] [address] Care Team Providers Name Role Phone Bj Pelletier MD Primary Care Provider Unavailable Reason for Visit Reason Comments Other Encounter Details Date Type Department Care Team Description 09/30/2006 Telephone [facility] 3931 Kobe Mendez RN Other Gynecology Oncology 3931 [place] [address] Social History Tobacco Use Types Packs/Day Years Used Date Smoking Tobacco: Never Assessed Sex Assigned at Date Recorded Female 10/03/2020 11:17 AM CDT documented as of this encounter Progress Notes Kobe Mendez RN - 09/30/2006 12:40 PM CDT Phone Note filed by Kobe Mendez RN at 06/04/10231 Author: Kobe Mendez RN Service: (none) Author Type: (none) Filed: 06/04/10231 Note Time: 09/30/06 1240 Status: Signed Concrete Inspector: Cachorro Feldman Pt had laparoscopic surgery on and has some questions. Pt is experiencing some swelling on one side but not the other, and wondering what activities she can do. Pt informed she can drive 10 days after surgery if she is not taking narcotics. No heavy lifting, walking is fine, stairs to a minimum, use common sense. Discussed swelling. Pt verbalizes understanding and will call back if she has any further questions or concerns. Created on 30Sep2006 12:40pm by KOBE MENDEZ DRAFTER documented in this encounter Plan of Treatment Not on filedocumented as of this encounter Visit Diagnoses Not on filedocumented in this encounter Care Teams Fiberglass Luggage Molder Relationship Specialty Start Date End Date Bj Pelletier MD PCP - General 05/19/[address] [facility], [address] documented as of this encounter
--- OUTSIDE RECORDS SUMMARY | 2021-12-03 11:46 | XMS_ITS | Encounter Summary ---
:1955 Author Organization [facility] Address [address] [place] [address] Care Team Providers Name Role Phone Bj Pelletier MD Primary Care Provider Unavailable Encounter Details Date Type Department Care Team Description 09/28/2006 PN Conversion Only OTHER CONVERSION [address] [place] [address] Social History Tobacco Use Types Packs/Day Years Used Date Smoking Tobacco: Never Assessed Sex Assigned at Date Recorded Female 10/03/2020 11:17 AM CDT documented as of this encounter Plan of Treatment Not on filedocumented as of this encounter Visit Diagnoses Not on filedocumented in this encounter Care Teams Bridge Repairer Relationship Specialty Start Date End Date Bj Pelletier MD PCP - General 05/19/[address] [place] [address] documented as of this encounter
--- OUTSIDE RECORDS SUMMARY | 2021-12-03 11:46 | XMS_ITS | Encounter Summary ---
:1955 Author [facility] Address [address] [place] [address] Care Team Providers Name Role Phone Bj Pelletier MD Primary Care Provider Unavailable Encounter Details Date Type Department Care Team Description 10/25/2006 Office Visit Specialty Center 3931 Haydee Subramanian MD Gynecology Oncology [address] 5th [place] [address] [phone] Social History Tobacco Use Types Packs/Day Years Used Date Smoking Tobacco: Never Assessed Sex Assigned at Date Recorded Female 10/03/2020 11:17 AM CDT documented as of this encounter Last Filed Vital Signs Vital Sign Reading Time Taken Comments Blood Pressure 102/68 10/25/2006 1:49 PM CDT Pulse - - Temperature - - Respiratory Rate - - Oxygen Saturation - - Inhaled Oxygen Concentration - - Weight 60.3 kg (132 lb 15.7 oz) 10/25/2006 1:49 PM C: 6 0.3kg CDT Height 162.6 cm (5' 4) 10/25/2006 1:49 PM C: 162.6cm CDT Body Mass Index 22.83 10/25/2006 1:49 PM CDT documented in this encounter Progress Notes Chacho Subramanian MD - 10/25/2006 12:01 AM CDT Progress Notes signed by Chacho Subramanian MD at 11/04/06 1047 Author: Chacho Subramanian MD Service: (none) Author Type: Physician Filed: 06/06/10 2114 Note Time: 10/25/062020 Status: Signed Electrical Hardware Engineer: Chacho Subramanian MD (Physician) NAME: MEGAN WILD MR#: [id number] ACCT: [id number] VISIT: [id number] DICTATING CLINICIAN: CHACHO SUBRAMANIAN MD JOB: [id number] LOC: 256 CLINIC PROGRESS NOTE DATE OF VISIT: 10/25/2006 SUBJECTIVE: This is a note of followup on Megan العلي who is a 50-year-old female recently status post laparoscopy with bilateral salpingo-oophorectomy performed 09/28/06. The surgery was essentially uncomplicated, although she has had recovery that has required placement of an intraureteral stent. This was done in an integrated fashion after a P and P was placed for question of hydronephrosis. The patient has now reported that there is some difficulty in the left lower quadrant with some pulling at her stitch site. This is visible to the naked eye with an indentation in the skin. I had previously instructed her that likely this will spontaneously resolve. However, as it has continued to both her, I have attempted to dislodge the stitch manually by infiltrating the skin with Marcaine and elevating on the incision. This has failed to make clear progress in correcting the underlying skin incision. However, after a more lengthy discussion with the patient, she has agreed to observe this for now. Ultimately I expect this problem to be self-limited. However, if it is not, I have left open the possibility she could come for surgical revision, although I do not anticipate this is likely to be required. OBJECTIVE: ASSESSMENT: PLAN: Follow up on a p.r.n. basis if this continues to bother her. JAUN:[id number] C: 11/02/06 08:51 DOCUMENT: [id number] documented in this encounter Plan of Treatment Not on filedocumented as of this encounter Visit Diagnoses Not on filedocumented in this encounter Care Teams Oral And Maxillofacial Surgeon Relationship Specialty Start Date End Date Bj Pelletier MD PCP - General 05/19/[address] [place], [address] documented as of this encounter
--- OUTSIDE RECORDS SUMMARY | 2021-12-03 11:46 | XMS_ITS | Encounter Summary ---
:1955 Author Organization [facility] Address [address] [place] [address] Care Team Providers Name Role Phone Bj Pelletier MD Primary Care Provider Unavailable Reason for Visit Reason Comments Other Encounter Details Date Type Department Care Team Description 10/13/2006 Telephone [facility]ty Center 3931 Kobe Mendez RN Other Gynecology Oncology 3931 [place] [address] Social History Tobacco Use Types Packs/Day Years Used Date Smoking Tobacco: Never Assessed Sex Assigned at Date Recorded Female 10/03/2020 11:17 AM CDT documented as of this encounter Progress Notes Kobe Mendez RN - 10/13/2006 3:57 PM CDT Phone Note filed by Kobe Mendez RN at 06/04/106 Author: Kobe Mendez RN Service: (none) Author Type: (none) Filed: 06/04/10 0326 Note Time: 10/13/06 1557 Status: Signed Preparing Box Tender: Cachorro Feldman Pt has seen her Urologist and had a CT scan. The pt was told by her Urologist, that one of her ureters was compressed, which may be swelling but could be related to surgery. Pt states she will be having an IVP tomorrow to see if urine is going into the bladder. Pt states this is very frustrating but understands that these things can happen. Pt will send us her CT report, doctors notes and IVP when it is ready. Pt will call back on Wednesday with an update. Dr Subramanian was updated. Created on [id number] 3:57pm by KOBE MENDEZ LEATHER SORTER documented in this encounter Plan of Treatment Not on filedocumented as of this encounter Visit Diagnoses Not on filedocumented in this encounter Care Teams Masonry Inspector Relationship Specialty Start Date End Date Bj Pelletier MD PCP - General 05/19/[address] [facility], [address] documented as of this encounter
--- OUTSIDE RECORDS SUMMARY | 2021-12-03 11:46 | XMS_ITS | Encounter Summary ---
:1955 Author Organization [facility] Address [address] [place] [address] Care Team Providers Name Role Phone Bj Pelletier MD Primary Care Provider Unavailable Encounter Details Date Type Department Care Team Description 10/04/2006 Office Visit Specialty Center 3931 Haydee Subramanian MD Gynecology Oncology [address]th [place] [address] [phone] Social History Tobacco Use Types Packs/Day Years Used Date Smoking Tobacco: Never Assessed Sex Assigned at Date Recorded Female 10/03/2020 11:17 AM CDT documented as of this encounter Last Filed Vital Signs Vital Sign Reading Time Taken Comments Blood Pressure 120/80 10/04/2006 1:44 PM CDT Pulse - - Temperature 36.4 ??C (97.5 ??F) 10/04/2006 1:44 PM CDT C: 36 .4 C Respiratory Rate - - Oxygen Saturation - - Inhaled Oxygen Concentration - - Weight - - Height 162.6 cm (5' 4) 10/04/2006 1:44 PM CDT C: 162.6 cm Body Mass Index - - documented in this encounter Progress Notes Chacho Subramanian MD - 10/04/2006 12:01 AM CDT Progress Notes signed by Chacho Subramanian MD at 10/27/06 1216 Author: Chacho Subramanian MD Service: (none) Author Type: Physician Filed: 06/06/108 Note Time: 10/04/06 0001 Status: Signed Change Coordinator: Chacho Subramanian MD (Physician) NAME: MEGAN LINDSEY MR#: [id number] ACCT: [id number] VISIT: [id number] DICTATING CLINICIAN: CHACHO SUBRAMANIAN MD JOB: [id number] LOC: 256 CLINIC PROGRESS NOTE DATE OF VISIT: 10/04/2006 SUBJECTIVE: This is a note to follow up on Megan Lindsey, a 50-year-old, female recently status post laparoscopic hysterectomy for a fibroid uterus and family history of uterine carcinoma. She presents today for routine postop visit and is essentially doing well without complaints. She has some disfiguring around the left scar which is likely due to the underlying fascial stitch, but otherwise, is without complaints. She has no fever, chills, nausea, vomiting, constipation, diarrhea, or dysuria. PAST MEDICAL/SURGICAL HISTORY: Otherwise, unchanged. REVIEW OF SYSTEMS: Otherwise, negative. OBJECTIVE: VS: BP: 120/80. T: 97.6. Ht: 5 ft. 4 in. ABDOMEN: Soft, nontender and nondistended. LOWER EXTREMITIES: Symmetric, without significant edema. The incisions are healing nicely. There is some disfiguration of the left lower quadrant, but this appears to be due to some tethering, and I anticipate spontaneous resolution. Otherwise, we have discussed her pathology which fails to demonstrate any evidence of malignancy in the uterus or ovaries. ASSESSMENT: PLAN: Follow up with primary physician, and I have left open the possibility she may return here for any reason related to or unrelated to surgery, but that I am not tentatively scheduling her for any additional followup. I have counseled her that if their is additional failure of this lower incision to heal to her satisfaction, this could be corrected fairly easily, and she will return if that is an issue. JAUN:[id number] C: 10/05/06 09:53 DOCUMENT: [id number] documented in this encounter Plan of Treatment Not on filedocumented as of this encounter Visit Diagnoses Not on filedocumented in this encounter Care Teams Replanting Machine Crew Relationship Specialty Start Date End Date Bj Pelletier MD PCP - General 05/19/[address] [place], [address] documented as of this encounter
--- OUTSIDE RECORDS SUMMARY | 2021-12-03 11:47 | XMS_ITS | Encounter Summary ---
:1955 Author Organization [facility] Address [address] [place] [address] Care Team Providers Name Role Phone David Meneses MD Unavailable Susie Soto RN Unavailable Shara Guaman MD Unavailable [phone] Layne Nice MD Unavailable Shell Tabares MD Primary Care Provider Shell Tabares MD Unavailable Nikki Peterson APRN ROLLING MILL PLUGGER Unavailable [phone] Encounter Details Date Type Department Care Team Description 03/14/2020 Ambulatory - [facility] [address] [place] [address] Social History Tobacco Use Types Packs/Day Years Used Date Smoking Tobacco: Never Smokeless Tobacco: Never Alcohol Use Standard Drinks/Week Comments Yes 5 (1 standard drink = 0.6 oz pure alcoho l) occassional Sex Assigned at Date Recorded Female 01/06/2021 11:10 AM PROFILING MACHINE SET UP OPERATOR documented as of this encounter Plan of Treatment Not on filedocumented as of this encounter Visit Diagnoses Not on filedocumented in this encounter Care Teams Pipeline Construction Inspector Relationship Specialty Start Date End Date Shell Tabares MD PCP - General Internal Medicine 07/03/19 David Meneses MD MD Urology 11/24/16 [address] [place], [place] [address] Susie Soto, RN Registered Nurse 11/24/16 Shara Guaman MD MD Dermatology 02/16/17 [address] [facility] [address] [place] [address] Layne Nice MD MD Dermatology 05/14/17 [facility] [address] [place], [place] [id number] Shell Tabares MD Assigned PCP 08/06/19 05/25/20 [facility] [address] [place], [place] [address] Nikki Peterson APRN Assigned PCP 05/26/20 07/10/20 [employer] [address] [place] [address] documented as of this encounter
--- OUTSIDE RECORDS SUMMARY | 2021-12-03 11:47 | XMS_ITS | Encounter Summary ---
:1955 Author Organization [facility] Address [address] [place] [address] Care Team Providers Name Role Phone Bj Pelletier MD Primary Care Provider Unavailable Encounter Details Date Type Department Care Team Description 01/29/2003 PN Conversion Only [place] [address] [address] [place] [address] Social History Tobacco Use Types Packs/Day Years Used Date Smoking Tobacco: Never Assessed Sex Assigned at Date Recorded Female 10/03/2020 11:17 AM CDT documented as of this encounter Plan of Treatment Not on filedocumented as of this encounter Visit Diagnoses Not on filedocumented in this encounter Care Teams Acquisition Advisor Relationship Specialty Start Date End Date Bj Pelletier MD PCP - General 05/19/[address] [place] [address] documented as of this encounter
--- OUTSIDE RECORDS SUMMARY | 2021-12-03 11:47 | XMS_ITS | Encounter Summary ---
:1955 Author Organization [place] Address Formerly [facility] [place] [address] Care Team Providers Name Role Phone David Meneses MD Unavailable Susie Soto RN Unavailable Shara Guaman MD Unavailable [phone] Layne Nice MD Unavailable Shell Tabares MD Primary Care Provider Shell Tabares MD Unavailable Encounter Details Date Type Department Care Team Description 02/07/[address] [address] Social History Tobacco Use Types Packs/Day Years Used Date Smoking Tobacco: Never Smokeless Tobacco: Never Alcohol Use Standard Drinks/Week Comments Yes 5 (1 standard drink = 0.6 oz pure alcoho l) occassional Sex Assigned at Date Recorded Female 01/06/2021 11:10 AM LIBRARY MEDIA SPECIALIST COVID-19 Exposure Response Date Recorded In the last month, have you been in contact with No / Unsure 02/07/2020 2:26 PM LIBRARY MEDIA SPECIALIST someone who was confirmed or suspected to have Coronavirus / COVID-19? documented as of this encounter Plan of Treatment Not on filedocumented as of this encounter Procedures Procedure Name Priority Date/Time Associated Diagnosis Comme nts LIPID REFLEX TO Routine 02/07/2020 2:28 PM Healthcare Result s for this DIRECT LDL PANEL LIBRARY MEDIA SPECIALIST maintenance procedure a re in the results section. BASIC METABOLIC Routine 02/07/2020 2:28 PM Healthcare Result s for this PANEL LIBRARY MEDIA SPECIALIST maintenance procedure are i n the results section. documented in this encounter Results Lipid panel reflex to direct LDL Fasting (02/07/2020 2:28 PM LIBRARY MEDIA SPECIALIST) Patholo gist Method Time Signature Cholesterol 181 <200 02/08/2020 [place] mg/dL 11:25 AM [facility] Triglycerides 31 <150 02/08/2020 [place] mg/dL 11:59 AM [facility] HDL Cholesterol 85 >49 mg/dL 02/08/2020 [place] 11:32 AM [facility] LDL Cholesterol 90 <100 02/08/2020 [place] Calculated mg/dL 11:59 AM [facility] Comment: Desirable: <100 mg/dl Non HDL Cholesterol 96 <130 mg/dL 02/08/2020 11:32 AM LIBRARY MEDIA SPECIALIST [facility] Specimen Anatomical Collection Method Collection Time Receive d Time (Source) Location / / Volume Laterality Blood specimen 02/07/2020 2:28 PM 020 2:30 (specimen) LIBRARY MEDIA SPECIALIST PM LIBRARY MEDIA SPECIALIST Eve Macdonald ACCOUNTING GENERALIST [facility] - BLOOD ORDERABLES Performing Organization Address City/State/ZIP Code Phon e Number [facility] [address] [place], [place] [address] [facility] [address] [place] [address], [place] [phone] Basic metabolic panel (02/07/2020 2:28 PM LIBRARY MEDIA SPECIALIST) P athologist Signature Sodium 137 133 - 144 02/08/2020 [place] mmol/L 11:11 AM [facility] Potassium 4.0 3.4 - 5.3 02/08/2020 [place] mmol/L 11:11 AM [facility] Chloride 104 94 - 109 02/08/2020 [place] mmol/L 11:11 AM [facility] Carbon Dioxide 29 20 - 32 02/08/2020 [place] mmol/L 11:25 AM [facility] Anion Gap 4 3 - 14 02/08/2020 [place] mmol/L 11:25 AM [facility] Glucose 84 70 - 99 02/08/2020 [place] mg/dL 11:25 AM [facility] Urea Nitrogen 12 7 - 30 02/08/2020 [place] mg/dL 11:25 AM [facility] Creatinine 0.66 0.52 - 02/08/2020 [place] 1.04 mg/dL 11:25 AM [facility] GFR Estimate >90 >60 02/08/2020 [place] mL/min/{1. 11:25 AM [facility] 73_m2} HOSPITAL Comment: Non GFR Calc Starting 02/01/2018, serum creatinine ba sed estimated GFR (eGFR) will be calculated using the Chronic Kidney Dise [facility] Epidemiology Collaboration (CKD-EPI) equation. GFR Estimate If >90 >60 mL/min/{1.73_m2} 02/08/2020 11:25 AM [facility] Comment: GFR Calc Starting 02/01/2018, serum creatinine ba sed estimated GFR (eGFR) will be calculated using the Chronic Kidney Dise [facility] Epidemiology Collaboration (CKD-EPI) equation. Calcium 9.0 8.5 - 10.1 mg/dL 02/08/2020 11:25 AM [facility] Specimen Anatomical Collection Method Collection Time Receive d Time (Source) Location / / Volume Laterality Blood specimen 02/07/2020 2:28 PM 020 2:30 (specimen) LIBRARY MEDIA SPECIALIST PM LIBRARY MEDIA SPECIALIST Eve Macdonald APRN [facility] - BLOOD ORDERABLES Performing Organization Address City/State/ZIP Code Phon e Number [facility] [address] [place] [address] [address] [facility] [address] [place], [place] [address] [facility] [address] [address], [place] [phone] documented in this encounter Visit Diagnoses Diagnosis Healthcare maintenance Routine general medical examination at a health care facility documented in this encounter Care Teams Verifier Relationship Specialty Start Date End Date Shell Tabares MD PCP - General Internal Medicine 07/03/19 David Meneses MD MD Urology 11/24/16 [address] [place], [place] [address] Susie Soto, RN Registered Nurse 11/24/16 Shara Guaman MD MD Dermatology 02/16/17 [address] [facility] 98 [place] [address] Layne Nice MD MD Dermatology 05/14/17 [facility] [address] [place] [address] Shell Tabares MD Assigned PCP 08/06/19 05/25/20 [facility] [address] [place], [place] [address] documented as of this encounter
--- OUTSIDE RECORDS SUMMARY | 2021-12-03 11:47 | XMS_ITS | Encounter Summary ---
:1955 Author Organization [place] Address [address] [place] [address] Care Team Providers Name Role Phone David Meneses MD Unavailable Susie Soto RN Unavailable Shara Guaman MD Unavailable [phone] Layne Nice MD Unavailable Nikki Peterson APRN [facility] Unavailable [phone] Encounter Details Date Type Department Care Team Description 06/29/2019 Telephone Health Primary Care Shell Tabares MD [address] [place], [place] [address] [place] [address] 5-[address] [phone] Social History Tobacco Use Types Packs/Day Years Used Date Smoking Tobacco: Never Smokeless Tobacco: Never Alcohol Use Standard Drinks/Week Comments Yes 5 (1 standard drink = 0.6 oz pure alcoho l) occassional Sex Assigned at Date Recorded Female 01/06/2021 11:10 AM DIRECTOR OF TEACHER EDUCATION documented as of this encounter Miscellaneous Notes Telephone Encounter - Omaira Mohan - 06/29/2019 9:07 AM CDT Patient is scheduled 07-[address] Tabares to establish care Telephone Encounter - Omaira Mohan - 06/29/2019 9:06 AM CDT ----- Message from Melani Raymond RN sent at 06/29/2019 8:40 AM CDT ----- Regarding: appt due, former Bobby Burton Please call to schedule/determine if still wishes to follow at [facility] Thanks I do not need any follow up on the scheduling of this appointment unless the patient will no longer be receiving care in our clinic. documented in this encounter Plan of Treatment Not on filedocumented as of this encounter Visit Diagnoses Not on filedocumented in this encounter Care Teams Paving Supervisor Relationship Specialty Start Date End Date David Meneses MD MD Urology 11/24/16 [address] [place] [address] Susie Soto, RN Registered Nurse 11/24/16 Shara Guaman MD MD Dermatology 02/16/17 420 [facility] 98 [place], [place] [address] Layne Nice MD MD Dermatology 05/14/17 [facility] [address] [place] [address] Nikki ePterson, POLYMERIZATION OVEN OPERATOR DATA ENTRY Assigned PCP 10/03/17 08/05/19 [address] [address] [place] [id number] documented as of this encounter
--- OUTSIDE RECORDS SUMMARY | 2021-12-03 11:47 | XMS_ITS | Encounter Summary ---
:1955 [address] [facility] Address [address] [place] [address] Care Team Providers Name Role Phone Bj Pelletier MD Primary Care Provider Unavailable Encounter Details Date Type Department Care Team Description 07/28/2006 Office Visit Specialty Center [facility] Misa Dobson MD Gynecology Oncology [address] [place] [address] [place], [place] [address] (work) [phone] Social History Tobacco Use Types Packs/Day Years Used Date Smoking Tobacco: Never Assessed Sex Assigned at Date Recorded Female 10/03/2020 11:17 AM CDT documented as of this encounter Last Filed Vital Signs Vital Sign Reading Time Taken Comments Blood Pressure 108/70 07/28/2006 11:13 AM CDT Pulse - - Temperature - - Respiratory Rate - - Oxygen Saturation - - Inhaled Oxygen Concentration - - Weight 60.8 kg (133 lb 15.9 oz) 07/28/2006 11:13 AM C: 60.8kg CDT Height 162.6 cm (5' 4) 07/28/2006 11:13 AM C: 162.6cm CDT Body Mass Index 23 07/28/2006 11:13 AM CDT documented in this encounter Progress Notes Kendra Dobson MD - 07/28/2006 12:01 AM CDT Progress Notes signed by Kendra Dobson MD at 07/29/06 0659 Author: Kendra Dobson MD Service: (none) Author Type: Physician Filed: 06/06/101929 Note Time: 07/28/06 0001 Status: Signed Airport Utility Worker: Kendra Dobson MD (Physician) NAME: MEGAN WILD MR#: [id number] ACCT: [id number] VISIT: [id number] DICTATING CLINICIAN: KENDRA DOBSON MD JOB: [id number] LOC: 256 CLINIC PROGRESS NOTE DATE OF VISIT: 07/28/2006 SUBJECTIVE: On 07/28/06, I had the pleasure of seeing your patient Megan Carmichael at the [facility] Gynecologic[facility]Oncology Clinic. This 50-year-old woman has a family history of ovarian and breast cancer. She is BRCA 1-2 negative and here today for your requested consultation by Dr. Rosa Monreal. The patient states that she underwent genetic counseling at the [facility] 06/22/05. At that time, she was noted to be BRCA 1-2 negative. Patient's mother developed ovarian cancer at age 69, and four years later. She has also had other family members with ovarian and breast cancer and therefore would like to consider to undergo prophylactic oophorectomy. Patient's mother had ovarian cancer at age 69, due to this cancer due to lung metastasis at age 74. She also had a history of basal cell carcinoma of ear at age 73. Patient has one maternal uncle who age 59 of a brain aneurysm and the patient also had a maternal grandmother still living at age 104, but she did have breast cancer at the age of 48. Patient also had a sister who at age 60 in a fire. Maternal grandmother had a brother who of stomach cancer. Another brother to the maternal grandmother had stomach cancer as well and he had a son with pancreatic cancer. The patient's father at age 76. He had basal cell carcinoma of the ear at 75, but was otherwise healthy. She had a paternal aunt with uterine cancer in her 60s and living in her 70s. Maternal grandmother of suicide at age 65. She has one sister who had female cancer and had to have a hysterectomy. Paternal grandfather secondary to emphysema and on the father's side one of the uncles had colon cancer. Patient states that she has had an episode of pelvic pain. Was seen by Dr Rosa Monreal at the [facility] the [facility]. At that time, a vaginal probe ultrasound was performed which revealed the uterus to be retroverted and 9 x 6 cm in size. Both ovaries were normal and the endometrial stripe was 5 mm. Patient had a recent CA-[address] [facility], which was within normal limits at 13. REVIEW OF SYSTEMS: General: Patient has had stable weight and good appetite. HEENT: Negative. Cardiovascular: She has no hypertension nor chest pain. Respiratory: She has a history of asthma and allergies to cats and dust. GI: She has chronic constipation, for which she takes senna. : She has incontinence with coughing and sneezing and running. Musculoskeletal: No stiffness or joint pain. Skin: No rashes or ulcers. Neurologic: No tingling or numbness or seizures. Psychiatric: No anxiety or depression. Endocrine: No diabetes or thyroid disease. Lymphatic: No DVT nor edema. PAST MEDICAL HISTORY: She is 3, para 3-0-2-3. LMP 07/01/06. She has chronic asthma due to allergies. PAST SURGICAL HISTORY: She has had cystoscopy, wisdom teeth removed, and a femoral hernia repair on the right in 2004. FAMILY HISTORY: Please refer to the history of present illness. SOCIAL HISTORY: Does not smoke. Occasionally drinks a beer. Does not use drugs. 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 MEDICATIONS: Updated in LastWord, please refer to these for this data. ADR/ALLERGIES: UPDATED IN LASTWORD, PLEASE REFER TO THESE FOR THIS DATA. OBJECTIVE: VS: BP: 108/70. Ht: 5 ft 4 in. Wt: 134 lb. NEUROLOGIC/PSYCHIATRIC: Normal. NECK: Supple. Thyroid is benign. She has no adenopathy, supraclavicular, axillary nor inguinal. CHEST: Clear. SKIN: Free of rashes, lesions, and ulcers. HEART: Regular rate and rhythm without murmurs, rubs, and gallops. ABDOMEN: Soft and nontender. She has a scar in the right groin area secondary to a femoral hernia repair. Incision is well-healed. There is no further herniation. PELVIC: She has normal external genitalia and urethral meatus. The vagina rotates with Valsalva and creates a grade 2 cystocele. Cervix has an ectropion, but otherwise is multiparous. Uterus is anteverted and approximately 9 cm in length. There are no adnexal masses. Anal and rectal exams are negative. EXTREMITIES: Free of edema and erythema. ASSESSMENT: My impression is that of family history of ovarian cancer with negative BRCA 1/2 testing. After much discussion of the results of the genetic testing, the risks and benefits, and alternatives to surgery, the patient has elected to undergo total laparoscopic hysterectomy with bilateral salpingo-oophorectomy. She will also have a consultation with Dr. Huy Arshad to consider a urethral suspension procedure at the same time. Surgery has tentatively been scheduled for 08/30, on Wednesday, 2006. The risks and benefits of the procedure explained to the patient including injury to bowel, bladder, ureter, blood vessels, lymphatics, hemorrhage, infection, return to the operating room, herniation, wound infection, and allergic reactions, anesthetic complications including . Patient agrees to risks and benefits and will see Dr. Arshad in the near future for urodynamics and evaluation. Sincerely, Kendra Dobson MD [facility]necologic[facility]Oncology [facility] PLAN: See assessment. CC: [place] [address] LFC:[id number] C: 07/28/06 21:25 DOCUMENT: [id number] documented in this encounter Plan of Treatment Not on filedocumented as of this encounter Visit Diagnoses Not on filedocumented in this encounter Care Teams Dobby Looms Pegger Relationship Specialty Start Date End Date Bj Pelletier MD PCP - General 05/19/[address] [place] [address] documented as of this encounter
--- OUTSIDE RECORDS SUMMARY | 2021-12-03 11:47 | XMS_ITS | Encounter Summary ---
:1955 Author Organization [place] Address [address] [place] [address] Care Team Providers Name Role Phone David Meneses MD Unavailable Susie Soto RN Unavailable Shara Guaman MD Unavailable [phone] Layne Nice MD Unavailable Nikki Peterson APRN [facility] Unavailable [phone] Reason for Visit Reason Onset Date Comments Orders 07/06/2018 Labs Encounter Details Date Type Department Care Team Description 07/06/2018 Telephone [facility] Primary Care Fazal Conde Orders (Labs) Clinic MD Tisha [address] [place] [phone] Social History Tobacco Use Types Packs/Day Years Used Date Smoking Tobacco: Never Smokeless Tobacco: Never Alcohol Use Standard Drinks/Week Comments Yes 5 (1 standard drink = 0.6 oz pure alcoho l) occassional Sex Assigned at Date Recorded Female 01/06/2021 11:10 AM SETTLEMENT PROCESSOR documented as of this encounter Miscellaneous Notes Telephone Encounter - Svitlana Damon - 07/07/2018 9:22 AM CDT Route to with pending orders. Svitlana Damon on 07/07/2018 at 9:23 AM Called pt to advise the patient will order labs at the appointment. Svitlana Damon on 07/08/2018 at 11:53 AM Telephone Encounter - ZepedaRandallla - 07/06/2018 6:09 PM CDT [facility] Call Center Phone Message May a detailed message be left on voicemail: yes Reason for Call: Order(s): Other: Reason for requested: Patient is requesting orders for her annual physical be placed so she can do them ahead of time. Please call her Date needed: before 09/01/18 Provider name: Jennifer Burton Action Taken: Message routed to: [facility] documented in this encounter Plan of Treatment Not on filedocumented as of this encounter Visit Diagnoses Diagnosis Essential hypertension - Primary Unspecified essential hypertension CARDIOVASCULAR SCREENING; LDL GOAL LESS THAN 160 documented in this encounter Care Teams Repair Manager Relationship Specialty Start Date End Date David Meneses MD MD Urology 11/24/16 [address] [place], [place] [address] Susie Soto, RN Registered Nurse 11/24/16 Shara Guaman MD MD Dermatology 02/16/17 420 [facility] [address] [place], [place] [address] Layne Nice MD MD Dermatology 05/14/17 [facility] [address] [facility] [place] [address] Nikki Peterson APRN DISTRICT MANAGER Assigned PCP 10/03/17 08/05/19 [address] [place] [address] documented as of this encounter
--- OUTSIDE RECORDS SUMMARY | 2021-12-03 11:47 | XMS_ITS | Encounter Summary ---
:1955 Author Organization [facility] Address [address] [place] [address] Care Team Providers Name Role Phone Bj Pelletier MD Primary Care Provider Unavailable Encounter Details Date Type Department Care Team Description 06/30/2006 PN Conversion Only [facility] [address] [place] [address] Social History Tobacco Use Types Packs/Day Years Used Date Smoking Tobacco: Never Assessed Sex Assigned at Date Recorded Female 10/03/2020 11:17 AM CDT documented as of this encounter Plan of Treatment Not on filedocumented as of this encounter Visit Diagnoses Not on filedocumented in this encounter Care Teams Learning Center Instructor Relationship Specialty Start Date End Date Bj Pelletier MD PCP - General 05/19/[address] [place] [id number] documented as of this encounter
--- OUTSIDE RECORDS SUMMARY | 2021-12-03 11:47 | XMS_ITS | Encounter Summary ---
:1955 Author Organization [facility] Address [facility] [place] [address] Care Team Providers Name Role Phone David Meneses MD Unavailable Susie Soto RN Unavailable Shara Guaman MD Unavailable [phone] Layne Nice MD Unavailable Shell Tabares MD Primary Care Provider Shell Tabares MD Unavailable Reason for Visit Diagnostic Imaging Mammo (Routine) - Closed Specialty Diagnoses / Procedures Referred By Contact Refer red To Contact Diagnoses Encounter for screening mammogram for malignant neoplasm of breast Shell Tabares MD Procedures Mammogram, screening w cirilo (3D) [facility] [address] [place], [place] [address] Referral ID Status Reason Start Date Expiration Date Visits Requ ested Visits Authorized [id number] Closed 07/03/2019 07/02/2020 1 1 Encounter Details Date Type Department Care Team Description 12/21/2019 Ancillary [facility] Shell Tabares er for Procedure Clinic Amy Douglas MD screening mammogram [address] [facility] TER for malignant [address] [facility] neoplasm of breast [address] [place] [address] [phone] Social History Tobacco Use Types Packs/Day Years Used Date Smoking Tobacco: Never Smokeless Tobacco: Never Alcohol Use Standard Drinks/Week Comments Yes 5 (1 standard drink = 0.6 oz pure alcoho l) occassional Sex Assigned at Date Recorded Female 01/06/2021 11:10 AM WATCH 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 documented as of this encounter Plan of Treatment Not on filedocumented as of this encounter Procedures Procedure Name Priority Date/Time Associated Diagnosis Comme nts MA SCREENING Routine 12/21/2019 1:40 PM Encounter for Results for this BILATERAL W/ CIRILO WATCH TRAIN ASSEMBLER screening mammogram pro cedure are in for malignant the results neoplasm of breast section. documented in this encounter Results Mammogram, screening w cirilo (3D) (12/21/2019 1:40 PM WATCH TRAIN ASSEMBLER) Anatomical Region Laterality Modality Breast Bilateral Mammography Specimen (Source) Anatomical Location Collection Method / Collectio n Time Received Time / Laterality Volume Impressions 12/21/2019 3:47 PM WATCH TRAIN ASSEMBLER IMPRESSION: BI-RADS CATEGORY: 1 - ??Negative RECOMMENDED FOLLOW-UP: Annual Mammograph y. Exam results letter mailed to patient. MURALI JEONG MD Narrative 12/21/2019 3:47 PM WATCH TRAIN ASSEMBLER SCREENING MAMMOGRAM, BILATERAL, DIGITAL w/CAD AND TOMOSYNTHESIS - 12/21/2019 1:40 PM BREAST SYMPTOMS: No current breast compl aints. COMPARISON: ??03/05/2017, 03/16/2007, , 12/20/2003. BREAST DENSITY: Scattered fibroglandular densities. COMMENTS: No findings of suspicion for m alignancy. Procedure Note Murali Jeong MD - 12/21/2019For matting of this note might be different from the original. SCREENING MAMMOGRAM, BILATERAL, DIGITAL w/CAD AND TOMOSYNTHESIS - 12/21/2019 1:40 PM BREAST SYMPTOMS: No current breast compl aints. COMPARISON: 03/05/2017, 03/16/2007, 03/18, 12/20/2003. BREAST DENSITY: Scattered fibroglandular densities. COMMENTS: No findings of suspicion for m alignancy. IMPRESSION: BI-RADS CATEGORY: 1 - Negati ve RECOMMENDED FOLLOW-UP: Annual Mammograph y. Exam results letter mailed to patient. MURALI JEONG MD Shell Tabares MD IMG MAMMOGRAPHY ORDERABLES documented in this encounter Visit Diagnoses Diagnosis Encounter for screening mammogram for ma lignant neoplasm of breast Other screening mammogram documented in this encounter Care Teams Site Operations Manager Relationship Specialty Start Date End Date Shell Tabares MD PCP - General Internal Medicine 07/03/19 David Meneses MD MD Urology 11/24/16 [address] [place], [place] [address] Susie Soto, RN Registered Nurse 11/24/16 Shara Guaman MD MD Dermatology 02/16/17 420 [facility] 98 [place], [place] [id number] Layne Nice MD MD Dermatology 05/14/17 [facility] [address] [place] [address] Shell Tabares MD Assigned PCP 08/06/19 05/25/20 [facility] [address] [place], [place] [id number] documented as of this encounter
--- OUTSIDE RECORDS SUMMARY | 2021-12-03 11:47 | XMS_ITS | Encounter Summary ---
:1955 Author Organization [place] Address [address] [place] [address] Care Team Providers Name Role Phone David Meneses MD Unavailable Susie Soto RN Unavailable Shara Guaman MD Unavailable [phone] Layne Nice MD Unavailable Shell Tabares MD Primary Care Provider Shell Tabares MD Unavailable Reason for Visit Reason Onset Date Comments Call Back 01/18/2020 imaging orders Encounter Details Date Type Department Care Team Description 01/18/2020 Telephone [facility] Shell Tabares, Call Back (imaging Clinic Internal MD orders) Medicine [facility] [address] [facility] [address] [place], [place] [address] [phone] Social History Tobacco Use Types Packs/Day Years Used Date Smoking Tobacco: Never Smokeless Tobacco: Never Alcohol Use Standard Drinks/Week Comments Yes 5 (1 standard drink = 0.6 oz pure alcoho l) occassional Sex Assigned at Date Recorded Female 01/06/2021 11:10 AM RUG SETTER AXMINSTER COVID-19 Exposure Response Date Recorded In the last month, have you been in contact with No / Unsure 12/21/2019 1:07 PM RUG SETTER AXMINSTER someone who was confirmed or suspected to have Coronavirus / COVID-19? documented as of this encounter Miscellaneous Notes Telephone Encounter - Marin Rdyer - 01/19/2020 12:51 PM CST Called patient and left VM: Per Dr. Tabares, patient renal cyst does not require follow up. So no imaging orders. Marin Ryder CMA (AAMA) at 12:53 PM on 01/19/2020 SETTER AXMINSTER Telephone Encounter - Kerri George - 01/18/2020 9:28 AM CST [facility] Call Center Phone Message May a detailed message be left on voicemail: yes Reason for Call: Other: Pt called looking to speak to someone about getting an order for an Ultrasound or MRI to look at her kidneys. Pt stated it was discussed with Dr. Tabares but there were no orders in the pts chart for imaging. Please follow up with pt Action Taken: Message routed to: [facility] Travel Screening: Not Applicable SETTER AXMINSTER documented in this encounter Plan of Treatment Not on filedocumented as of this encounter Visit Diagnoses Not on filedocumented in this encounter Care Teams Ophthalmic Lens Inspector Relationship Specialty Start Date End Date Shell Tabares MD PCP - General Internal Medicine 07/03/19 David Meneses MD MD Urology 11/24/16 909 [place], [place] [address] Susie Soto, RN Registered Nurse 11/24/16 Shara Guaman MD MD Dermatology 02/16/17 [facility] [address] [place] [address] Layne Nice MD MD Dermatology 05/14/17 [facility] [address] [place] [address] Shell Tabares MD Assigned PCP 08/06/19 05/25/20 [facility] [place] [address] documented as of this encounter
--- OUTSIDE RECORDS SUMMARY | 2021-12-03 11:47 | XMS_ITS | Encounter Summary ---
:1955 Author Organization [place] Address [address] [place] [address] Care Team Providers Name Role Phone David Meneses MD Unavailable Susie Soto RN Unavailable Shara Guaman MD Unavailable [phone] Layne Nice MD Unavailable Shell Tabares MD Primary Care Provider Shell Tabares MD Unavailable Reason for Visit Reason Comments Medication Refill LISINOPRIL 5 MG TABLET Encounter Details Date Type Department Care Team Description 08/04/2020 Refill [facility] Primary Care Shell Tabares MD Medication Refill Clinic [facility] (LISINOPRIL [address] TABLET) [address] [place] [address] [place], [place] [phone] (Wo rk) [address] [phone] Social History Tobacco Use Types Packs/Day Years Used Date Smoking Tobacco: Never Smokeless Tobacco: Never Alcohol Use Standard Drinks/Week Comments Yes 5 (1 standard drink = 0.6 oz pure alcoho l) occassional Sex Assigned at Date Recorded Female 01/06/2021 11:10 AM MEAT BONER AND SLICER documented as of this encounter Miscellaneous Notes Telephone Encounter - Jaci Marin RN - 08/06/2020 3:49 PM CDT LISINOPRIL 5 MG TABLET Last Written Prescription Date: 07/03/2019 Last Fill Quantity: 90, # refills: 3 Last Office Visit : 07/03/2019 Future Office visit: None 90 Tabs, sent to pharm 07/02/2020 Jaci Marin RN Central Triage Red Flags/Med Refills documented in this encounter Plan of Treatment Not on filedocumented as of this encounter Visit Diagnoses Diagnosis Essential hypertension Unspecified essential hypertension documented in this encounter Care Teams Marketing Program Manager Relationship Specialty Start Date End Date Shell Tabares MD PCP - General Internal Medicine 07/03/19 David Meneses MD MD Urology 11/24/[address] [place] [address] Susie Soto, RN Registered Nurse 11/24/16 Shara Guaman MD MD Dermatology 02/16/17 [facility] [address] [place], [place] [id number] Layne Nice MD MD Dermatology 05/14/17 [facility] [address] [facility] [place] [address] Shell Tabares MD Assigned PCP 07/11/20 [facility] [address] [place], [place] [address] documented as of this encounter
--- OUTSIDE RECORDS SUMMARY | 2021-12-03 11:47 | XMS_ITS | Encounter Summary ---
:1955 Author Organization [facility] Address [address], [place] [address] Care Team Providers Name Role Phone Bj Pelletier MD Primary Care Provider Unavailable Encounter Details Date Type Department Care Team Description 07/28/2006 PN Conversion Only EPISCOPAL CONVERSION Kendra Dobson MD [address] [place], [place] [address] Social History Tobacco Use Types Packs/Day Years Used Date Smoking Tobacco: Never Assessed Sex Assigned at Date Recorded Female 10/03/2020 11:17 AM CDT documented as of this encounter Plan of Treatment Not on filedocumented as of this encounter Procedures Procedure Name Priority Date/Time Associated Comments Diagnosis ANATOMICAL PATH Routine 07/28/2006 12:27 PM Resul ts for this LIQUID BASED CDT procedure are i n the results section. documented in this encounter Results Pap Smear (07/28/2006 12:27 PM CDT) [facility] gist Method Time Signature PAP Smear SEE TEXT No normal HP CONVERSION Liquid Based range Comment: Patient: MEGAN WILD ? CERVICAL CYTOLOGY REPORT Pathology # ??[id number] ?Date Obtained: ? Date Received: CYTOLOGIC IMPRESSION: Negative for intraepithelial lesion or m alignancy. Verified 08/03/06 by: ??SN ? (electronic signature) ? CONRAD TIONAL DATA LMP: CLINICAL HIST LIQUID BASED PAP CERVICAL SPECIMEN ADEQUACY: ?? Satisfactory. ENDOCERVICAL CELLS: ??Present. Specimen (Source) Anatomical Collection Method Collection Time Re ceived Time Location / / Volume Laterality 07/28/2006 12:27 PM CDT Kendra Dobson MD LAB_1 Performing Organization Address City/State/ZIP Code Phon e Number HP CONVERSION documented in this encounter Visit Diagnoses Not on filedocumented in this encounter Care Teams Railroad Detective Relationship Specialty Start Date End Date Bj Pelletier MD PCP - General 05/19/[address] [place], [address] documented as of this encounter
--- OUTSIDE RECORDS SUMMARY | 2021-12-03 11:47 | XMS_ITS | Encounter Summary ---
:1955 Author Organization [place] Address [address] [place] [address] Care Team Providers Name Role Phone David Meneses MD Unavailable Susie Soto RN Unavailable Shara Guaman MD Unavailable [phone] Layne Nice MD Unavailable Nikki Peterson APRN [facility] Unavailable [phone] Reason for Visit Reason Onset Date Comments Refill Request 09/02/2018 Encounter Details Date Type Department Care Team Description 09/02/2018 MyC Refill M [facility] Primary Care Shawn Ricci MD Refill Request Clinic [address] [place] [id number] [place] [address] [place] [address] Social History Tobacco Use Types Packs/Day Years Used Date Smoking Tobacco: Never Smokeless Tobacco: Never Alcohol Use Standard Drinks/Week Comments Yes 5 (1 standard drink = 0.6 oz pure alcoho l) occassional Sex Assigned at Date Recorded Female 01/06/2021 11:10 AM COMMUNICATION EQUIPMENT REPAIRER documented as of this encounter Miscellaneous Notes Telephone Encounter - Melani Carolina RN - 09/02/2018 11:28 AM CDT Refilled in a different encounter. documented in this encounter Plan of Treatment Not on filedocumented as of this encounter Visit Diagnoses Diagnosis ASTHMA - MILD PERSISTENT Unspecified asthma documented in this encounter Care Teams Cork Insulation Installer Relationship Specialty Start Date End Date David Meneses MD MD Urology 11/24/16 [address] [place], [place] [address] Susie Soto, RN Registered Nurse 11/24/16 Shara Guaman MD MD Dermatology 02/16/17 [facility] [address] [place], [place] [address] Layne Nice MD MD Dermatology 05/14/17 [facility] [address] [facility] [place] [address] Nikki Peterson APRN LICENSED MARRIAGE AND FAMILY THERAPIST Assigned PCP 10/03/17 08/05/19 [address] [place] [address] documented as of this encounter
--- OUTSIDE RECORDS SUMMARY | 2021-12-03 11:47 | XMS_ITS | Encounter Summary ---
:1955 Author Organization [place] Address [address] [place] [address] Care Team Providers Name Role Phone David Meneses MD Unavailable Susie Soto RN Unavailable Shara Guaman MD Unavailable [phone] Layne Nice MD Unavailable Shell Tabares MD Primary Care Provider Shell aTbares MD Unavailable Encounter Details Date Type Department Care Team Description 02/07/2020 Travel Social History Tobacco Use Types Packs/Day Years Used Date Smoking Tobacco: Never Smokeless Tobacco: Never Alcohol Use Standard Drinks/Week Comments Yes 5 (1 standard drink = 0.6 oz pure alcoho l) occassional Sex Assigned at Date Recorded Female 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 documented as of this encounter Plan of Treatment Not on filedocumented as of this encounter Visit Diagnoses Not on filedocumented in this encounter Care Teams Enrichment Assistant Relationship Specialty Start Date End Date Shell Tabares MD PCP - General Internal Medicine 07/03/19 David Meneses MD MD Urology 11/24/16 [address] [place], [place] [address] Susie Soto, RN Registered Nurse 11/24/16 Shaar Guaman MD MD Dermatology 02/16/17 [address] [facility] 98 [place] [address] Layne Nice MD MD Dermatology 05/14/17 [facility] [address] [place], [place] [phone] Shell Tabares MD Assigned PCP 08/06/19 05/25/20 [facility] [address] [place], [place] [id number] documented as of this encounter
--- OUTSIDE RECORDS SUMMARY | 2021-12-03 11:47 | XMS_ITS | Encounter Summary ---
:1955 Author Organization [place] Address [address] [place] [address] Care Team Providers Name Role Phone David Meneses MD Unavailable Susie Soto RN Unavailable Shara Guaman MD Unavailable [phone] aLyne Nice MD Unavailable Nikki Peterson APRN [facility] Unavailable [phone] Encounter Details Date Type Department Care Team Description 09/01/2018 Travel Social History Tobacco Use Types Packs/Day Years Used Date Smoking Tobacco: Never Smokeless Tobacco: Never Alcohol Use Standard Drinks/Week Comments Yes 5 (1 standard drink = 0.6 oz pure alcoho l) occassional Sex Assigned at Date Recorded Female 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 documented as of this encounter Plan of Treatment Not on filedocumented as of this encounter Visit Diagnoses Not on filedocumented in this encounter Care Teams Sql Server Bi Developer Relationship Specialty Start Date End Date David Meneses MD MD Urology 11/24/[address] [place] [address] Susie Soto, RN Registered Nurse 11/24/16 Shara Guaman MD MD Dermatology 02/16/17 [facility] [address] [place], [place] [address] Layne Nice MD MD Dermatology 05/14/17 [facility] [address] [facility] [address] Nikki Peterson APRN AVIATION MEDICINE SPECIALIST Assigned PCP 10/03/17 08/05/19 [address] [place] [address] documented as of this encounter
--- OUTSIDE RECORDS SUMMARY | 2021-12-03 11:47 | XMS_ITS | Encounter Summary ---
:1955 Author Organization [place] Address [address] [place] [address] Care Team Providers Name Role Phone David Meneses MD Unavailable Susie Soto RN Unavailable Shara Guaman MD Unavailable [phone] Layne Nice MD Unavailable Nikki Peterson APRN [facility] Unavailable [phone] Reason for Visit Reason Comments Medication Refill Encounter Details Date Type Department Care Team Description 06/28/[address] 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 Routing refill request to provider for review/approval because: Dr. Bobby Burton has retired, patient has not reestablished care at [facility]. ACT score needed ?? Pt informed that she need to follow up/est care with a different provider.Clinic numbers given for questions or concerns. Nano Cornell RN 8:07 AM on 03/06/2019. Scheduling has been notified to contact the pt for appointment. documented in this encounter Plan of Treatment Not on filedocumented as of this encounter Visit Diagnoses Diagnosis ASTHMA - MILD PERSISTENT Unspecified asthma documented in this encounter Care Teams Customer Service Representative Relationship Specialty Start Date End Date David Meneses MD MD Urology 11/24/16 [address] [place], [place] [address] Susie Soto, RN Registered Nurse 11/24/16 Shara Guaman MD MD Dermatology 02/16/17 420 [facility] 98 [place], [place] [address] Layne Nice MD MD Dermatology 05/14/17 [facility] [address] [place] [address] Nikki Peterson, JERSON DINING ROOM MANAGER Assigned PCP 10/03/17 08/05/19 [address] [facility] [place] [id number] documented as of this encounter
--- OUTSIDE RECORDS SUMMARY | 2021-12-03 11:47 | XMS_ITS | Encounter Summary ---
:1955 Author Organization [place] Address [address] [place] [address] Care Team Providers Name Role Phone David Meneses MD Unavailable Susie Soto RN Unavailable Shara Guaman MD Unavailable [phone] Layne Nice MD Unavailable Shell Tabares MD Primary Care Provider Shell Tabares MD Unavailable Reason for Visit Reason Onset Date Comments Patient Request 01/25/2020 labs Encounter Details Date Type Department Care Team Description 01/25/2020 Telephone [facility] Shell Tabares Pati ent Request (labs) Clinic Internal MD Medicine [facility] 9[address] [facility] 4th [place], [place] [address] [phone] Social History Tobacco Use Types Packs/Day Years Used Date Smoking Tobacco: Never Smokeless Tobacco: Never Alcohol Use Standard Drinks/Week Comments Yes 5 (1 standard drink = 0.6 oz pure alcoho l) occassional Sex Assigned at Date Recorded Female 01/06/2021 11:10 AM 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 documented as of this encounter Miscellaneous Notes Telephone Encounter - Eve Macdonald APRN CNP - 01/26/2020 9:26 AM ADDICTIONS THERAPIST Lab orders signed; she can come in for fasting labs in the next 2 weeks. Please have her schedule a lab appointment. Thanks! Eve Macdonald APRN CNP Pt called and informed about scheduling a lab appt. Clinic numbers given. Nano Cornell RN 10:15 AM on 01/26/2020. CTIONS THERAPIST Telephone Encounter - Ban Narvaez - 01/25/2020 12:18 PM CST [facility] Phone Message May a detailed message be left on voicemail: yes Reason for Call: Other: Patient Request: Patient is requesting lab orders to be placed. Patient was scheduled for a physical appointment with Eve Macdonald on 01/26/2020. Patient states she has not had a physical in a while and for insurance purposes she would like for Dr. Tabares to order labs that are age appropriate for her to do before the end of the year. Patient did reschedule with Eve Macdonald to 03/20/2020. Please call patient to confirm labs have been placed. Action Taken: Message routed to: [facility] Travel Screening: Not Applicable CTIONS THERAPIST documented in this encounter Plan of Treatment Not on filedocumented as of this encounter Results Basic metabolic panel (02/07/2020 2:28 PM ADDICTIONS THERAPIST) athologist Signature Sodium 137 133 - 144 02/08/2020 [facility] mmol/L 11:11 AM ADDICTIONS THERAPIST [facility] Potassium 4.0 3.4 - 5.3 02/08/2020 [facility] mmol/L 11:11 AM [facility] Chloride 104 94 - 109 02/08/2020 [facility] mmol/L 11:11 AM [facility] Carbon Dioxide 29 20 - 32 02/08/2020 [facility] mmol/L 11:25 AM [facility] Anion Gap 4 3 - 14 02/08/2020 [facility] mmol/L 11:25 AM [facility] Glucose 84 70 - 99 02/08/2020 [facility] mg/dL 11:25 AM [facility] Urea Nitrogen 12 7 - 30 02/08/2020 [facility] mg/dL 11:25 AM [facility] Creatinine 0.66 0.52 - 02/08/2020 [facility] 1.04 mg/dL 11:25 AM [facility] GFR Estimate >90 >60 02/08/2020 [facility] mL/min/{1. 11:[address] [facility] 73_m2} HOSPITAL Comment: Non GFR Calc Starting 02/01/2018, serum creatinine ba sed estimated GFR (eGFR) will be calculated using the Chronic Kidney Dise [facility] Epidemiology Collaboration (CKD-EPI) equation. GFR Estimate If >90 >60 mL/min/{1.73_m2} 02/08/2020 11:[address] [facility] Comment: GFR Calc Starting 02/01/2018, serum creatinine ba sed estimated GFR (eGFR) will be calculated using the Chronic Kidney Dise [facility] Epidemiology Collaboration (CKD-EPI) equation. Calcium 9.0 8.5 - 10.1 mg/dL 02/08/2020 11:25 AM [facility] Specimen Anatomical Collection Method Collection Time Receive d Time (Source) Location / / Volume Laterality Blood specimen 02/07/2020 2:28 PM 020 2:30 (specimen) ADDICTIONS THERAPIST PM ADDICTIONS THERAPIST Eve Macdonald APRN PORTAL DEVELOPER LAB - BLOOD ORDERABLES Performing Organization Address City/State/ZIP Code Phon e Number M [facility] [address] [phone] [facility] [address] [place], [place] [address] [facility] [address] [phone], [place] [phone] Lipid panel reflex to direct LDL Fasting (02/07/2020 2:28 PM ADDICTIONS THERAPIST) [facility] gist Method Time Signature Cholesterol 181 <200 02/08/2020 [place] mg/dL 11:25 AM [facility] Triglycerides 31 <150 02/08/2020 [place] mg/dL 11:59 AM [facility] HDL Cholesterol 85 >49 mg/dL 02/08/2020 [place] 11:32 AM [facility] LDL Cholesterol 90 <100 02/08/2020 [facility] [place] Calculated mg/dL 11:59 AM [facility] Comment: Desirable: <100 mg/dl Non HDL Cholesterol 96 <130 mg/dL 02/08/2020 11:32 AM [facility] Specimen Anatomical Collection Method Collection Time Receive d Time (Source) Location / / Volume Laterality Blood specimen 02/07/2020 2:28 PM 020 2:30 (specimen) ADDICTIONS THERAPIST PM ADDICTIONS THERAPIST Eve Macdonald APRN PORTAL DEVELOPER LAB - BLOOD ORDERABLES Performing Organization Address City/State/ZIP Code Phon e Number [facility] [address] [place], [place] [address] [facility] [address] [place] [address], [facility] [phone] documented in this encounter Visit Diagnoses Diagnosis Healthcare maintenance - Primary Routine general medical examination at a health care facility documented in this encounter Care Teams Irrigation Foreman Relationship Specialty Start Date End Date Shell Tabares MD PCP - General Internal Medicine 07/03/19 David Meneses MD MD Urology 11/24/16 [address] [place], [place] [phone] Susie Soto, RN Registered Nurse 11/24/16 Shara Guaman MD MD Dermatology 02/16/17 420 [facility] 98 [place], [place] [address] Layne Nice MD MD Dermatology 05/14/17 [facility] [address] [place] [address] Shell Tabares MD Assigned PCP 08/06/19 05/25/20 [facility] [address] [place], [place] [phone] documented as of this encounter
--- OUTSIDE RECORDS SUMMARY | 2021-12-03 11:47 | XMS_ITS | Encounter Summary ---
:1955 Author Organization [facility] Address [address] [place] [address] Care Team Providers Name Role Phone David Meneses MD Unavailable Susie Soto RN Unavailable Shara Guaman MD Unavailable [phone] Layne Nice MD Unavailable Nikki Peterson APRN PRACTICING DERMATOLOGIST Unavailable [phone] Encounter Details Date Type Department Care Team Description 09/01/2018 Orders Only [facility] Routine history and physical examination of adult; [address] [place] [address] Screening for hyperlipidemia ; 1st [place] [address] Social History Tobacco Use Types Packs/Day Years Used Date Smoking Tobacco: Never Smokeless Tobacco: Never Alcohol Use Standard Drinks/Week Comments Yes 5 (1 standard drink = 0.6 oz pure alcoho l) occassional Sex Assigned at Date Recorded Female 01/06/2021 11:[address] ORDERLY documented as of this encounter Plan of Treatment Not on filedocumented as of this encounter Procedures Procedure Name Priority Date/Time Associated Diagnosis Comme nts LIPID REFLEX TO Routine 09/01/2018 10:39 Routine history and R esults for this DIRECT LDL PANEL AM CDT physical examination of procedure are in adult the results Screening for section. hyperlipidemia BASIC METABOLIC Routine 09/01/2018 10:39 Routine history and R esults for this PANEL AM CDT physical examination of samuel pat are in adult the results Essential hypertension secti on. documented in this encounter Results Basic metabolic panel (09/01/2018 10:39 AM CDT) P athologist Signature Sodium 138 133 - 144 09/01/2018 [facility] mmol/L 11:09 AM [facility] Potassium 3.9 3.4 - 5.3 09/01/2018 [facility] mmol/L 11:09 AM [facility] Chloride 105 94 - 109 09/01/2018 [facility] mmol/L 11:09 AM [facility] Carbon Dioxide 29 20 - 32 09/01/2018 [facility] mmol/L 11:13 AM [facility] Anion Gap 4 3 - 14 09/01/2018 [facility] mmol/L 11:13 AM [facility] Glucose 97 70 - 99 09/01/2018 [facility] mg/dL 11:13 AM [facility] Urea Nitrogen 13 7 - 30 09/01/2018 [facility] mg/dL 11:13 AM [facility] Creatinine 0.71 0.52 - 09/01/2018 [facility] 1.04 mg/dL 11:13 AM [facility] GFR Estimate >90 >60 09/01/2018 [facility] mL/min/{1. 11:13 AM [facility] 73_m2} [facility] Comment: Non GFR Calc Starting 02/01/2018, serum creatinine ba sed estimated GFR (eGFR) will be calculated using the Chronic Kidney Dise [facility] Epidemiology Collaboration (CKD-EPI) equation. GFR Estimate If >90 >60 mL/min/{1.73_m2} 09/01/2018 11:13 AM [facility] Comment: GFR Calc Starting 02/01/2018, serum creatinine ba sed estimated GFR (eGFR) will be calculated using the Chronic Kidney Dise [facility] Epidemiology Collaboration (CKD-EPI) equation. Calcium 8.8 8.5 - 10.1 mg/dL 09/01/2018 11:13 AM [facility] Specimen Anatomical Collection Method Collection Time Receive d Time (Source) Location / / Volume Laterality Blood specimen 09/01/2018 10:39 9 (specimen) AM CDT 10:41 AM CDT Jennifer Burton MD LAB - BLOOD ORDERABLES Performing Organization Address City/State/ZIP Code Phon e Number [facility] [id number] [address], [facility] [phone] [facility] [address] [phone], [facility] Lipid panel reflex to direct LDL Fasting (09/01/2018 10:39 AM CDT) [facility] Method Time Signature Cholesterol 165 <200 mg/dL 09/01/2018 [facility] 11:13 AM CDT [facility] Triglycerides 27 <150 mg/dL 09/01/2018 [facility] 11:46 AM CDT [facility] HDL Cholesterol 89 >49 mg/dL 09/01/2018 [facility] 11:19 AM CDT [facility] LDL Cholesterol 71 <100 mg/dL 09/01/2018 [facility] Calculated 11:46 AM CDT [facility] Comment: Desirable: <100 mg/dl Non HDL Cholesterol 76 <130 mg/dL 09/01/2018 11:19 AM CDT [facility] Specimen Anatomical Collection Method Collection Time Receive d Time (Source) Location / / Volume Laterality Blood specimen 09/01/2018 10:39 9 (specimen) AM CDT 10:41 AM CDT Jennifer Burton MD LAB - BLOOD ORDERABLES Performing Organization Address City/State/ZIP Code Phon e Number [address] [address] [facility] [address] [id number], [facility] [phone] documented in this encounter Visit Diagnoses Diagnosis Routine history and physical examination of adult Routine general medical examination at a health care facility Screening for hyperlipidemia Screening for lipoid disorders Essential hypertension Unspecified essential hypertension documented in this encounter Care Teams Sanitation Tank Washer Relationship Specialty Start Date End Date David Meneses MD MD Urology 11/24/16 [address] [place] [address] Susie Soto, RN Registered Nurse 11/24/16 Shara Guaman MD MD Dermatology 02/16/17 420 [facility] 98 [place] [address] Layne Nice MD MD Dermatology 05/14/17 [facility] [address] [place] [id number] Nikki Peterson APRN PRACTICING DERMATOLOGIST Assigned PCP 10/03/17 08/05/19 [address] [place] [address] documented as of this encounter
--- OUTSIDE RECORDS SUMMARY | 2021-12-03 11:47 | XMS_ITS | Encounter Summary ---
:1955 Author Organization [facility] Address [address] [place] [address] Care Team Providers Name Role Phone David Meneses MD Unavailable Susie Soto RN Unavailable Shara Guaman MD Unavailable [phone] Layne Nice MD Unavailable Nikki Peterson APRN JACKAROO Unavailable [phone] Reason for Visit Reason Onset Date Comments Pre Visit Planning - Done 09/08/2018 Renal cyst fol low up. Renal u/s done on 09-08-18 (Dr. Rosales). Record s available in [facility]. Encounter Details Date Type Department Care Team Description 09/08/2018 PRE VISIT [facility] Urology and David Meneses Pre Visit Planning - Inst for Prostate and MD Rik Done (Renal cyst follow [facility] [address] [place] [address] up. Renal u/s done on [address] [place], [place] 09-08-18 (Dr. Rosales). 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 Renal u/s done on 09-08-18 (Dr. Rosales). Records available in [facility]. documented in this encounter Plan of Treatment Not on filedocumented as of this encounter Visit Diagnoses Not on filedocumented in this encounter Care Teams Arch Support Maker Relationship Specialty Start Date End Date David Meneses MD MD Urology 11/24/16 [address] [place], [place] [address] Susie Soto, RN Registered Nurse 11/24/16 Shara Guaman MD MD Dermatology 02/16/17 420 [facility] 98 [place], [place] [address] Layne Nice MD MD Dermatology 05/14/17 [facility] [address] [place] [address] Nikki Peterson APRN JACKAROO Assigned PCP 10/03/17 08/05/19 [id number] [address] documented as of this encounter
--- OUTSIDE RECORDS SUMMARY | 2021-12-03 11:47 | XMS_ITS | Encounter Summary ---
:1955 Author Organization [facility] Address [address] [place] [address] Care Team Providers Name Role Phone David Meneses MD Unavailable Susie Soto RN Unavailable Shara Guaman MD Unavailable [phone] Layne Nice MD Unavailable Nikki Peterson APRN HOOKMAN Unavailable Reason for Visit Diagnostic Imaging Mammo (Routine) - Closed Specialty Diagnoses / Procedures Referred By Contact Refer red To Contact Diagnoses Visit for screening mammogram Jennifer Conde Procedures MA Screen Bilateral w/Kristian OBIE Screening Digital Bilateral MD Tisha [address] [facility] [address] [place] [address] Referral ID Status Reason Start Date Expiration Date Visits Requ ested Visits Authorized [id number] Closed 09/01/2018 09/01/2019 1 1 Encounter Details Date Type Department Care Team Description 09/08/2018 Ancillary Procedure [facility] Breast Bobby schraderer for screening mammogram for breast cancer; [facility] Jennifer Burton Visit for screening mammogra m 909 [facility] MD Tisha , [address] [place] [address] Social History Tobacco Use Types Packs/Day Years Used Date Smoking Tobacco: Never Smokeless Tobacco: Never Alcohol Use Standard Drinks/Week Comments Yes 5 (1 standard drink = 0.6 oz pure alcoho l) occassional Sex Assigned at Date Recorded Female 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 documented in this encounter Results MA Screen Bilateral w/Kristian (09/08/2018 10:39 AM CDT) Anatomical Region Laterality Modality Breast Bilateral Mammography Specimen (Source) Anatomical Location Collection Method / Collectio n Time Received Time / Laterality Volume Impressions 09/09/2018 2:46 PM CDT Impression: BI-RADS CATEGORY: 1 - ??Negative. Recommended Follow-up: Annual Mammograph y. Based on the patient history questionnai re completed prior to the mammogram, the NCI risk calculator and the NCCN indicat ions for genetic screening, the patient may be at an increased risk for breast cancer and/or have an indication for genetic screening . ??She has been sent a letter informing her of this and a phone number to schedule an appointment in the [facility] if she so desires. Code: GC Results to be sent to the patient. I have personally reviewed the examinati on and initial interpretation and I agree with the findings. ADRI KIMBALL MD Narrative 09/09/2018 2:46 PM CDT Examination: MA SCREENING BILATERAL W/ KRISTIAN, COMPUTER AIDED DETECTION 09/08/2018 10:39 AM Comparison: 03/05/2017, 03/16/2007, 007, 12/20/2003 Technique: Tomosynthesis views were obta ined and reviewed. History/family history: Asymptomatic scr eening. Mother diagnosed with ovarian cancer at age 69. History of mamie or breast biopsy. Breast Density: Scattered fibroglandular densities. Findings: No significant change. ?? Jennifer Burton MD IMG MAMMOGRAPHY ORDERABL ES documented in this encounter Visit Diagnoses Diagnosis Encounter for screening mammogram for [facility] cancer Visit for screening mammogram Other screening mammogram documented in this encounter Care Teams Coronary Care Unit Nurse Relationship Specialty Start Date End Date David Meneses MD MD Urology 11/24/16 [address] [facility] [address] Susie Soto, RN Registered Nurse 11/24/16 Shara Guaman MD MD Dermatology 02/16/17 420 [facility] [address] [place] [address] Layne Nice MD MD Dermatology 05/14/17 [facility] [address] [facility] [place] [phone] Nikki Peterson, JERSON HOOKMAN Assigned PCP 10/03/17 08/05/19 [address] [place] [id number] documented as of this encounter
--- OUTSIDE RECORDS SUMMARY | 2021-12-03 11:47 | XMS_ITS | Encounter Summary ---
:1955 Author Organization [facility] Address [address] [place] [address] Care Team Providers Name Role Phone David Meneses MD Unavailable Susie Soto RN Unavailable Shara Guaman MD Unavailable [phone] Layne Nice MD Unavailable Shell Tabares MD Primary Care Provider Shell Tabares MD Unavailable Encounter Details Date Type Department Care Team Description 11/23/2019 Travel Social History Tobacco Use Types Packs/Day Years Used Date Smoking Tobacco: Never Smokeless Tobacco: Never Alcohol Use Standard Drinks/Week Comments Yes 5 (1 standard drink = 0.6 oz pure alcoho l) occassional Sex Assigned at Date Recorded Female 01/06/2021 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 documented as of this encounter Plan of Treatment Not on filedocumented as of this encounter Visit Diagnoses Not on filedocumented in this encounter Care Teams Web Analytics Developer Relationship Specialty Start Date End Date Shell Tabares MD PCP - General Internal Medicine 07/03/19 David Meneses MD MD Urology 11/24/16 [address] [place], [place] [phone] Susie Soto, RN Registered Nurse 11/24/16 Shara Guaman MD MD Dermatology 02/16/17 420 [facility] 98 [place], [place] [address] Layne Nice MD MD Dermatology 05/14/17 [facility] [address] [place], [place] [phone] Shell Tabares MD Assigned PCP 08/06/19 05/25/20 [facility] [address] [place], [place] [address] documented as of this encounter
--- OUTSIDE RECORDS SUMMARY | 2021-12-03 11:47 | XMS_ITS | Encounter Summary ---
:1955 Author Organization [facility] Address [address] [place] [address] Care Team Providers Name Role Phone David Meneses MD Unavailable Susie Soto RN Unavailable Shara Guaman MD Unavailable [phone] Layne Nice MD Unavailable Shell Tabares MD Primary Care Provider Shell Tabares MD Unavailable Encounter Details Date Type Department Care Team Description 01/25/2020 Travel Social History Tobacco Use Types Packs/Day Years Used Date Smoking Tobacco: Never Smokeless Tobacco: Never Alcohol Use Standard Drinks/Week Comments Yes 5 (1 standard drink = 0.6 oz pure alcoho l) occassional Sex Assigned at Date Recorded Female 01/06/2021 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 documented as of this encounter Plan of Treatment Not on filedocumented as of this encounter Visit Diagnoses Not on filedocumented in this encounter Care Teams Furniture Cleaner Relationship Specialty Start Date End Date Shell Tabares MD PCP - General Internal Medicine 07/03/19 David Meneses MD MD Urology 11/24/16 [address] [place], [place] [address] Susie Soto, RN Registered Nurse 11/24/16 Shara Guaman MD MD Dermatology 02/16/17 420 [facility] 98 [place] [address] Layne Nice MD MD Dermatology 05/14/17 [facility] 101 [place], [place] [phone] Shell Tabares MD Assigned PCP 08/06/19 05/25/20 [facility] [address] [place], [place] [id number] documented as of this encounter
--- OUTSIDE RECORDS SUMMARY | 2021-12-03 11:47 | XMS_ITS | Clinical Summary ---
:1955 Author Organization [facility] Address [facility] [place] [address] Care Team Providers Name Role Phone David Meneses MD Unavailable Susie Soto RN Unavailable Shara Guaman MD Unavailable [phone] Layne Nice MD Unavailable Shell Tabares MD Primary Care Provider Shell Tabares MD Unavailable Allergies Active Allergy Reactions Severity Noted Date Comments Amoxicillin Medium 01/28/2017 rash Cat Hair Extract 03/21/2016 Cats 03/09/2005 Nicotiana Tabacum High 06/29/2016 Other reac tion(s): Breathing Difficulty Sulfa Drugs Rash 12/21/2001 Tramadol Hcl 10/11/2006 Headache Weirdness And sick nasuea , vomiting Medications Medication Sig Dispensed Refills Start Date End Date Status MULTI-VITAMIN OR TABS 1 TABLET DAILY at 0 Active bedtime B COMPLEX OR 1 tablet orally at 0 Active bedtime Ascorbic Acid Take 1,500 mg by 0 08/03/2006 Active (VITAMIN C) 100 MG mouth At Bedtime TABS VITAMIN D, Take 2,500 Units 0 Ac tive CHOLECALCIFEROL, PO by mouth At Bedtime Gal[place]-3 Fatty Acids Take 2 capsules by 0 Active (FISH OIL PO) mouth At Bedtime Ascorbic Acid Take 1,500 mg by 0 Active (VITAMIN C PO) mouth daily DIGESTIVE ENZYMES PO 0 Active albuterol (VENTOLIN Inhale 2 puffs 18 Inhaler 1 03/06/2019 Active HFA) 108 (90 Base) into the lungs MCG/ACT every 6 hours as inhalerIndications: needed for Mild persistent shortness of asthma breath / dyspnea or wheezing fluticasone-vilantero Inhale 1 puff into 1 Inhaler 2 0 Active l (BREO ELLIPTA) the lungs daily 100-25 MCG/INH inhalerIndications: Mild intermittent asthma without complication albuterol (PROAIR Inhale 2 puffs 18 g 2 01/25/2020 Active HFA/PROVENTIL into the lungs HFA/VENTOLIN HFA) 108 every 4 hours as (90 Base) MCG/ACT needed for inhalerIndications: shortness of Mild intermittent breath / dyspnea asthma without or wheezing complication lisinopril (ZESTRIL) Take 1 tablet (5 90 tablet 0 08/06/2020 Active 5 MG mg) by mouth daily tabletIndications: (Office Visit and Essential labs due before hypertension next refill. Please call [phone] to schedule) Thank you Active Problems Problem Noted Date History of melanoma 07/03/2019 Essential hypertension 01/14/2015 CARDIOVASCULAR SCREENING; LDL GOAL LESS THAN 160 12/15 Cold sore 07/12/2008 Mild persistent asthma without complication 03/09/2005 Stricture and stenosis of esophagus 12/21/2001 Urethral stricture 12/21/2001 Overview: Problem list name updated by automated p [employer]. Provider to review Resolved Problems Problem Noted Date Resolved Date Chest pain 08/24/2016 08/24/2016 iamLUMBAGO 04/06/2005 07/14/2005 iamSCIATICA 04/06/2005 07/14/2005 iamACCIDENT ON INDUSTR PREMISES 04/06/2005 07/15/19 06 Overexertion and strenuous and repetitive movements or loads 04/06/2005 07/14/2005 Overview: Problem list name updated by automated p [employer]. Provider to review and confirm Imo Update utility Immunizations Name Administration Dates Next Due HepA, Unspecified 10/06/2002, 12/21/2001 HepB 01/23/2002 07/03/2002 HepB, Unspecified 10/06/2002, 01/23/2002, 12/21/2001 HepB-Adult 01/23/2002 Influenza (IIV3) PF 12/21/2001, 01/17/1992 TD (ADULT, 7+) 01/23/2002, 02/15/1990 01/23/2013 Twinrix A/B 10/06/2002, 12/21/2001 Family History Medical History Relation Comments Hypertension Brother 2 C.A.D. Father Heart Disease Father heart attacks with b ypass Hypertension Father Lipids Father Cancer Maternal Grandmother breast cancer Cancer Mother ovarian cancer Cancer Paternal Aunt 1 cervicle cancer Cancer Paternal Aunt 2 uterin cancer Diabetes Paternal Aunt 3 C.A.D. Paternal Grandfather Cancer Son 3 testicular Relation Status Comments Brother 1 Alive Brother 2 Daughter Alive Father Maternal Grandfather (Age 75) Maternal Grandmother Alive Mother (Age 74) Paternal Aunt 1 Paternal Aunt 2 Paternal Aunt 3 Paternal Grandfather (Age 62) Paternal Grandmother (Age 60) Son 1 Alive Son 2 Alive Son 3 Social History Tobacco Use Types Packs/Day Years Used Date Smoking Tobacco: Never Smokeless Tobacco: Never Tobacco Cessation: Counseling Given: No Alcohol Use Standard Drinks/Week Comments Yes 5 (1 standard drink = 0.6 oz pure alcoho l) occassional Sex Assigned at Date Recorded Female 01/06/2021 11:10 AM 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 Last Filed Vital Signs Vital Sign Reading Time Taken Comments Blood Pressure 144/85 09/01/2018 9:39 AM CDT Pulse 75 09/01/2018 9:39 AM CDT Temperature 37 ??C (98.6 ??F) 01/20/2018 10:15 AM 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 Respiratory Rate 15 09/28/2017 11:07 AM CDT Oxygen Saturation 98% 09/01/2018 9:39 AM CDT Inhaled Oxygen Concentration - - Weight 56.8 kg (125 lb 4.8 oz) 09/01/2018 9:39 AM CDT Height 162.6 cm (5' 4) 09/01/2018 9:39 AM CDT per pt Body Mass Index 21.51 09/01/2018 9:39 AM CDT Plan of Treatment Health Maintenance Due Date Last Done Comments ADVANCE CARE PLANNING 1955 ANNUAL REVIEW OF HM ORDERS 1955 CT COLONOGRAPHY 1955 DEXA 1955 FIT-DNA (Cologuard) 1955 FIT 1955 FLEX SIG 1955 ZOSTER IMMUNIZATION (1 of 11/18/2005 2) ASTHMA ACTION PLAN 01/29/2006 01/29/2005 ASTHMA CONTROL TEST 03/30/2018 09/27/2017, 03/25/2016 COLONOSCOPY 03/24/2020 03/24/2010, 08/03/2007 COLORECTAL CANCER 03/24/2020 SCREENING DTAP/TDAP/TD IMMUNIZATION 04/01/2020 04/01/2010, 01/23/2002 , (4 - Td or Tdap) 02/15/1990 COVID-19 Vaccine (3 - 05/30/2020 04/04/2020, 03/14/2020 Booster for Pfizer series) FALL RISK ASSESSMENT 11/18/2020 MEDICARE ANNUAL WELLNESS 11/18/2020 09/01/2018 VISIT Pneumococcal Vaccine: 65+ 11/18/2020 Years (1 - PCV) PHQ-2 (once per calendar 02/15/2021 09/01/2018, 09/27/2017, year) 08/26/2016, Additional history exists INFLUENZA VACCINE (#1) 2021 12/21/2001, 01/17/1992 MAMMO SCREENING 12/20/2021 12/21/2019, 09/08/2018, 03/05/2017, Additional history exists LIPID 02/06/2025 02/07/2020, 09/01/2018, 02/02/2014, Additional history exists PAP Discontinued 12/13/1996 HEPATITIS B IMMUNIZATION Completed 10/06/2002, 10/06/2002, 01/23/2002, Additional history exists HEPATITIS C SCREENING Completed 01/14/2017 IPV IMMUNIZATION Aged Out No longer eligi ble based on patient 's age to complete this topic MENINGITIS IMMUNIZATION Aged Out No longe r eligible based on patient 's age to complete this topic Insurance Payer Benefit Plan / Subscriber ID Effective Phone Address T [facility] [id number] 2015-Pres [phone] [address] O OPEN ACCESS ent [address] [place] [address] [phone] [address] (Home) [employer] ([place]) [place] [address] Bj Personal/Family Self 1955 [phone] [address] (Home) [employer] (Work) [place] [address] [id number] Worker's Employer 1955 [employer] Compensation Advance Directives For more information, please contact: [phone] Latest Code Status on File Code Status Date Activated Date Inactivated Comments Full Code 08/24/2016 11:01 AM Code Status History Code Status Date Activated Date Inactivated Comments Full Code 08/24/2016 12:24 AM 08/24/2016 11:01 AM Care Teams Medical Physics Professor Relationship Specialty Start Date End Date Shell Tabares MD PCP - General Internal Medicine 07/03/19 David Meneses MD MD Urology 11/24/[address] [place] [address] Susie Soto, RN Registered Nurse 11/24/16 Shara Guaman MD MD Dermatology 02/16/17 420 [facility] 98 [place], [place] [address] Layne Nice MD MD Dermatology 05/14/17 [facility] [address] [place] [address] Shell Tabares MD Assigned PCP 07/11/20 [facility] [address] [place], [place] [address]
--- OUTSIDE RECORDS SUMMARY | 2021-12-03 11:47 | XMS_ITS | Encounter Summary ---
:1955 Author Organization [facility] Address [address] [place] [address] Care Team Providers Name Role Phone David Meneses MD Unavailable Susie Soto RN Unavailable Shara Guaman MD Unavailable [phone] Layne Nice MD Unavailable Nikki Peterson APRN CLINICAL APPEALS SPECIALIST Unavailable [phone] Shell Tabares MD Primary Care Provider Reason for Referral Diagnostic Imaging Mammo (Routine) - Closed Specialty Diagnoses / Procedures Referred By Contact Refer red To Contact Diagnoses Encounter for screening mammogram for malignant neoplasm of breast Shell Tabares MD Procedures Mammogram, screening w basim (3D) [facility] [address] [place], [place] [address] Referral ID Status Reason Start Date Expiration Date Visits Requ ested Visits Authorized [id number] Closed 07/03/2019 07/02/2020 1 1 Reason for Visit Reason Onset Date Comments Establish Care 07/03/2019 Pt would like to est ablish care over the phone Encounter Details Date Type Department Care Team Description 07/03/2019 [facility] Shell Tabares Enco unter to establish care with new doctor (Primary Dx); Care Clinic Essential hypertension; [address] [place] [address] History of melanoma; [address] Encounter for screening mammogram for ma lignant neoplasm of breast; [place], [place] Need for vaccination; [id number] Mild intermittent asthma without complic ation; [phone] Mild persistent asthma without complication (Work) Social History Tobacco Use Types Packs/Day Years Used Date Smoking Tobacco: Never Smokeless Tobacco: Never Alcohol Use Standard Drinks/Week Comments Yes 5 (1 standard drink = 0.6 oz pure alcoho l) occassional Sex Assigned at Date Recorded Female 01/06/2021 11:10 AM 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 Everett Goel HPI: 63 year old female, former Dr. 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 Cats and smoke triggers her asthma, these things she encounters frequently while working. Uses albuterolrescue about once a week currently, but it sounds like she may be unde rtreating her symptoms. Describes difficulty breathing out, hasn't been able to run. Does not have controller inhaler, previously on Symbicort (headaches), then Asthmanex (didn't notice much difference). Last PFT's at [facility] years ago, and she recalls them being abnormal. I also answered questions she had about her ampullary diverticulum, renal cyst and whether there areany natural remedies she could try regarding asthma. Overall she feels well, and states has no other complaints. Patient Active Problem List Diagnosis ??? Stricture and stenosis of esophagus ??? Urethral stricture ??? Mild persistent asthma ??? Cold sore ??? CARDIOVASCULAR SCREENING; LDL GOAL LESS THAN 160 ??? Essential hypertension Past Medical History: Diagnosis Date ??? Essential hypertension 01/14/2015 ??? Melanoma (H) 01/2016 ??? Mild persistent asthma ??? Osteoarthritis ??? Stricture and stenosis of esophagus Dx , [place] [facility] ??? Urethral stricture unspecified Past Surgical History: Procedure Laterality Date ??? C NONSPECIFIC PROCEDURE x3 1979,1984,1994 ??? ESOPHAGOSCOPY, GASTROSCOPY, DUODENOSCOPY (EGD), COMBINED N/A 09/28/2017 Procedure: COMBINED ENDOSCOPIC ULTRASOUND, ESOPHAGOSCOPY, GASTROSCOPY, DUODENOSCOPY (EGD); EUS; Surgeon: Guru Danny Landaverde MD; Location: [facility] ??? HERNIA REPAIR 2 hernia repairs ??? HYSTERECTOMY, PAP NO LONGER INDICATED 2006 ??? STENT 09/2016 kidney ??? SURGICAL PATHOLOGY EXAM 02/2016 Family History Problem Relation Age of Onset ??? Cancer Mother ovarian cancer ??? Heart Disease Father heart attacks with bypass ??? Hypertension Father ??? Lipids Father ??? C.A.D. Father ??? Cancer Maternal Grandmother breast cancer ??? C.A.D. Paternal Grandfather ??? Cancer Paternal Aunt cervicle cancer ??? Cancer Paternal Aunt uterin cancer ??? Diabetes Paternal Aunt ??? Hypertension Brother ??? Cancer Son testicular Social History Tobacco Use ??? Smoking status: Never Smoker ??? Smokeless tobacco: Never Used Substance Use Topics ??? Alcohol use: Yes Alcohol/week: 5.0 standard drinks Types: 5 Cans of beer per week Comment: occassional ??? Drug use: No Current Outpatient Medications Medication Sig Dispense Refill ??? albuterol (VENTOLIN HFA) 108 (90 Base) MCG/ACT inhaler Inhale 2 puffs into the lungs every 6 hours as needed for shortness of breath / dyspnea or wheezing 18 Inhaler 1 ??? Ascorbic Acid (VITAMIN C PO) Take 1,500 mg by mouth daily ??? Ascorbic Acid (VITAMIN C) 100 MG TABS Take 1,500 mg by mouth At Bedtime ??? B COMPLEX OR 1 tablet orally at bedtime ??? DIGESTIVE ENZYMES PO ??? lisinopril (PRINIVIL/ZESTRIL) 5 MG tablet Take 1 tablet (5 mg) by mouth daily 90 tablet 3 ??? MULTI-VITAMIN OR TABS 1 TABLET DAILY at bedtime ??? [place]-3 Fatty Acids (FISH OIL PO) Take 2 capsules by mouth At Bedtime ??? VITAMIN D, CHOLECALCIFEROL, PO Take 2,500 Units by mouth At Bedtime Allergies Allergen Reactions ??? Nicotiana Tabacum Other reaction(s): Breathing Difficulty ??? Amoxicillin rash ??? Cat Hair Extract ??? Cat Hair [Cats] ??? Sulfa Drugs Rash ??? Ultram [Tramadol Hcl] Headache Weirdness And sick nasuea, vomiting BP Readings from Last 6 Encounters: 09/01/18 144/85 01/20/18 141/90 09/28/17 (!) 167/99 09/27/17 134/76 09/02/17 124/82 03/05/17 141/90 Wt Readings from Last 5 Encounters: 09/01/18 56.8 kg (125 lb 4.8 oz) 01/20/18 57.3 kg (126 lb 6.4 oz) 09/28/17 57.9 kg (127 lb 11.2 oz) 09/27/17 57.6 kg (127 lb) 09/02/17 58 kg (127 lb 14.4 oz) Colonoscopy (last one normal, [facility]) due in 2020 Component Latest Ref Rng & Units 09/01/2018 Sodium 133 - 144 mmol/L 138 Potassium 3.4 - 5.3 mmol/L 3.9 Chloride 94 - 109 mmol/L 105 Carbon Dioxide 20 - 32 mmol/L 29 Anion Gap 3 - 14 mmol/L 4 Glucose 70 - 99 mg/dL 97 Urea Nitrogen 7 - 30 mg/dL 13 Creatinine 0.52 - 1.04 mg/dL 0.71 Component Latest Ref Rng & Units 09/01/2018 Cholesterol <200 mg/dL 165 Triglycerides <150 mg/dL 27 HDL Cholesterol >49 mg/dL 89 LDL Cholesterol Calculated <100 mg/dL 71 Component Latest Ref Rng & Units 01/14/2017 Hepatitis C Antibody NR:Nonreactive Nonreactive Mammogram 09/08/18 Impression: BI-RADS CATEGORY: 1 - Negative. Renal US 09/08/18 IMPRESSION: No hydroureteronephrosis or nephrolithiasis. Simple right renal cyst as above; no specific dedicated follow-up is required in this regard. Megan was seen today for establish care. Diagnoses and all orders for this visit: Encounter to establish care with new doctor Essential hypertension - Refill lisinopril (ZESTRIL) 5 MG tablet; Take 1 tablet (5 mg) by mouth daily - Basic metabolic panel; Future - Lipid panel reflex to direct LDL Fasting; Future History of melanoma Encounter for screening mammogram for malignant neoplasm of breast - Mammogram, screening w basim (3D); Future Need for vaccination Mild persistent asthma without complication - General PFT Lab (Please always keep checked); Future - Pulmonary Function Test; Future - start fluticasone-vilanterol (BREO ELLIPTA) 100-25 MCG/INH inhaler; Inhale 1 puff into the lungs daily - Refill albuterol (PROAIR HFA/PROVENTIL HFA/VENTOLIN HFA) 108 (90 Base) MCG/ACT inhaler; Inhale 2 puffs into the lungs every 4 hours as needed for shortness of breath / dyspnea or wheezing Follow up in about 6 months for physical/meet in person. This patient is being evaluated via a billable telephone visit; THIS VISIT WAS INITIATED BY THE PT, as AN ALTERNATIVE TO IN PERSON VISIT . The patient has has been notified of following: This billable telephone visit will be conducted via a call between you and your physician/provider.We have found that certain health care needs can be provided without the need for a physical exam. This service lets us provide the care you need with a short phone conversation. If a prescription is necessary we can send it directly to your pharmacy. If lab work is needed we can place an order for that and you can then stop by our lab to have the test done at a later time. We can also place orders for a limited number of imaging tests if they are deemed urgently necessary. If during the course of the call the physician/provider feels a telephone visit is not appropriate, you will not be charged for this service. Due to efforts to reduce the spread of COVID-19 in the clinic, state, nation, telephone visits are encouraged currently. Patient understands that diagnose and advice is limited by the inability to examhim/her/them [id number]. Patient has given verbal consent for the virtual audio visit? Yes Did patient initiate this virtual visit? Yes Person spoken to: Megan العلي This was a synchronous virtual visit Time call initiated: 1:32 Time call ended: 2:00 Total length of call: 28 min Shell Tabares M.D. [facility] pager [phone] documented in this encounter Nursing Notes Pavithra Millan CMA - 07/03/2019 2:00 PM CDT Chief Complaint Patient presents with ??? Establish Care Pt would like to establish care over the phone ANDRZEJ Lovell at 12:49 PM sign on 07/03/2019 documented in this encounter Plan of Treatment Not on filedocumented as of this encounter Results Mammogram, screening w basim (3D) (12/21/2019 1:40 PM EARLY CHILDHOOD ASSOCIATE) Anatomical Region Laterality Modality Breast Bilateral Mammography Specimen (Source) Anatomical Location Collection Method / Collectio n Time Received Time / Laterality Volume Impressions 12/21/2019 3:47 PM EARLY CHILDHOOD ASSOCIATE IMPRESSION: BI-RADS CATEGORY: 1 - ??Negative RECOMMENDED FOLLOW-UP: Annual Mammograph y. Exam results letter mailed to patient. MURALI JEONG MD Narrative 12/21/2019 3:47 PM EARLY CHILDHOOD ASSOCIATE SCREENING MAMMOGRAM, BILATERAL, DIGITAL w/CAD AND TOMOSYNTHESIS [...] in this encounter Visit Diagnoses Diagnosis Encounter to establish care with new doc tor - Primary Essential hypertension Unspecified essential hypertension History of melanoma Personal history of malignant melanoma o f skin Encounter for screening mammogram for ma lignant neoplasm of breast Other screening mammogram Need for vaccination Need for prophylactic vaccination and in oculation against unspecified single disease Mild intermittent asthma without complic ation Unspecified asthma Mild persistent asthma without complicat ion Unspecified asthma Encounter for screening mammogram for ma lignant neoplasm of breast Other screening mammogram documented in this encounter Care Teams Team Psychologist Relationship Specialty Start Date End Date Shell Tabares MD PCP - General Internal Medicine 07/03/19 David Meneses MD MD Urology 11/24/16 [address] [place], [place] [address] Susie Soto, RN Registered Nurse 11/24/16 Shara Guaman MD MD Dermatology 02/16/17 [address] [facility] [address] [place] [address] Layne Nice MD MD Dermatology 05/14/17 [facility] [address] [place] [address] Nikki Peterson, COTTON BAG CLIPPER Assigned PCP 10/03/17 08/05/19 CLINICAL APPEALS SPECIALIST [id number] [place] [place] [id number] documented as of this encounter
--- OUTSIDE RECORDS SUMMARY | 2021-12-03 11:47 | XMS_ITS | Encounter Summary ---
:1955 Author Organization [facility] Address [address] [place] [address] Care Team Providers Name Role Phone David Meneses MD Unavailable Susie Soto RN Unavailable Shara Guaman MD Unavailable [phone] Layne Nice MD Unavailable Shell Tabares MD Primary Care Provider Shell Tabares MD Unavailable Nikki Peterson APRN SUPERVISOR FIBERGLASS BOAT ASSEMBLY Unavailable Encounter Details Date Type Department Care Team Description 04/04/2020 Ambulatory - [facility] [address] [place] [phone] Social History Tobacco Use Types Packs/Day Years Used Date Smoking Tobacco: Never Smokeless Tobacco: Never Alcohol Use Standard Drinks/Week Comments Yes 5 (1 standard drink = 0.6 oz pure alcoho l) occassional Sex Assigned at Date Recorded Female 01/06/2021 11:10 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 documented as of this encounter Plan of Treatment Not on filedocumented as of this encounter Visit Diagnoses Not on filedocumented in this encounter Care Teams Slurry Control Tender Relationship Specialty Start Date End Date Shell Tabares MD PCP - General Internal Medicine 07/03/19 David Meneses MD MD Urology 11/24/16 [address] [place], [place] [id number] Susie Soto, RN Registered Nurse 11/24/16 Shara Guaman MD MD Dermatology 02/16/17 [address] [facility] [address] [place] [address] Layne Nice MD MD Dermatology 05/14/17 [facility] [address] [place], [place] [id number] Shell Tabares MD Assigned PCP 08/06/19 05/25/20 [facility] [address] [place], [place] [address] Nikki Peterson APRN Assigned PCP 05/26/20 07/10/20 SUPERVISOR FIBERGLASS BOAT ASSEMBLY [address] [place] [address] documented as of this encounter
--- OUTSIDE RECORDS SUMMARY | 2021-12-03 11:47 | XMS_ITS | Encounter Summary ---
:1955 Author Organization [facility] Address [address] [place] [address] Care Team Providers Name Role Phone David Meneses MD Unavailable Susie Soto RN Unavailable Shara Guaman MD Unavailable [phone] Layne Nice MD Unavailable Shell Tabares MD Primary Care Provider Shell Tabares MD Unavailable Encounter Details Date Type Department Care Team Description 01/31/2020 Travel Social History Tobacco Use Types Packs/Day Years Used Date Smoking Tobacco: Never Smokeless Tobacco: Never Alcohol Use Standard Drinks/Week Comments Yes 5 (1 standard drink = 0.6 oz pure alcoho l) occassional Sex Assigned at Date Recorded Female 01/06/2021 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 documented as of this encounter Plan of Treatment Not on filedocumented as of this encounter Visit Diagnoses Not on filedocumented in this encounter Care Teams Auto Phone Installer Relationship Specialty Start Date End Date Shell Tabares MD PCP - General Internal Medicine 07/03/19 David Meneses MD MD Urology 11/24/16 [address] [place], [place] [phone] Susie Soto, RN Registered Nurse 11/24/16 Shara Guaman MD MD Dermatology 02/16/17 [address] [facility] [address] [place] [address] Layne Nice MD MD Dermatology 05/14/17 [facility] [address] [place], [place] [id number] Shell Tabares MD Assigned PCP 08/06/19 05/25/20 [facility] [address] [place], [place] [id number] documented as of this encounter
--- OUTSIDE RECORDS SUMMARY | 2021-12-03 11:47 | XMS_ITS | Encounter Summary ---
:1955 Author Organization [place] Address [facility] [place] [address] Care Team Providers Name Role Phone David Meneses MD Unavailable Susie Soto RN Unavailable Shara Guaman MD Unavailable [phone] Layne Nice MD Unavailable Nikki Peterson APRN [facility] Unavailable [phone] Reason for Referral Diagnostic Imaging Ultrasound (Routine) - Closed Specialty Diagnoses / Procedures Referred By Contact Refer red To Contact Diagnoses Renal cyst Jennifer Conde Procedures US Renal Complete MD Tisha [address] [place] [address] [place] [address] Referral ID Status Reason Start Date Expiration Date Visits Requ ested Visits Authorized [id number] Closed 09/01/2018 09/01/2019 1 1 Reason for Visit Reason Comments Physical Pt is here for a physical. Encounter Details Date Type Department Care Team Description 09/01/2018 Office Visit [facility] Primary Care Nanda Conde history and physical examination of adult (Primary Dx); Clinic Jennifer Giles MD Encounter for screening mamm ogram for breast cancer; [address] Screening for hyperlipidemia ; [address] Floor Essential hypertension; [place], [place] Renal cyst [address] Social History Tobacco Use Types Packs/Day Years Used Date Smoking Tobacco: Never Smokeless Tobacco: Never Alcohol Use Standard Drinks/Week Comments Yes 5 (1 standard drink = 0.6 oz pure alcoho l) occassional Sex Assigned at Date Recorded Female 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 Last Filed Vital Signs Vital Sign Reading Time Taken Comments Blood Pressure 144/85 09/01/2018 9:39 AM CDT Pulse 75 09/01/2018 9:39 AM CDT Temperature - - Respiratory Rate - - Oxygen Saturation 98% 09/01/2018 9:39 AM CDT Inhaled Oxygen Concentration - - Weight 56.8 kg (125 lb 4.8 oz) 09/01/2018 9:39 AM CDT Height 162.6 cm (5' 4) 09/01/2018 9:39 AM CDT per pt Body Mass Index 21.51 09/01/2018 9:39 AM CDT documented in this encounter Patient Instructions Patient InstructionsZenaida Lagos CMA - 09/01/2018 9:40 AM CDT [facility] Medication Refill Request Information: * Please contact your pharmacy regarding ANY request for medication refills. [facility] Prescription Fax = [phone] * Please allow 3 business days for routine medication refills. * Please allow 5 business days for controlled substance medication refills. [facility] Test Result notification information: *You will be notified with in 7-10 days of your appointment day regarding the results of your test.?? If you are on MyChart you will be notified as soon as the provider has reviewed the results and signed off on them. Clinical Trials [email or web address] documented in this encounter Progress Notes Jennifer Conde MD - 09/01/2018 9:40 AM CDT [facility] Jennifer Burton MD 09/01/2018 Chief Complaint: Physical History of Present Illness: Megan العلي is a 62 year old female with a history of hypertension, melanoma, and asthma who presents for physical. Asthma: She uses her inhaler PRN, and it is mostly seasonal. She has some triggers at her work that she tries to avoid. Hypertension: Her blood pressure today is 144/85, and she describes that she cut her lisinopril in half from 5 mg for the past three months. Melanoma: She continues to follow with dermatology for routine checks. Of note, she has a spot of seborrheic keratosis with a darker dot in the middle, and would like to have this examined. Routine health maintenance: Her last mammogram was done February 2017. She states that she has had a mammogram every year since she was 19 years old, and is wondering if there is another option as she would not like to be exposed to more radiation. She no longer has pap smears as she had a hysterectomy. She does have a vaginal sore that will come and go since her hysterectomy. She tries to keep the area dry to help. Her next colonoscopy is not until 2020. Renal mass: She describes that her last CT scan of her kidney was in 2016. She states the [facility] told her to just monitor the mass for now. However, she is wondering how often she needs to be following up on this. Anxiety: She typically goes to acupuncture once a week for for pain in her shoulders and alleviatingher anxiety. This helps well. Review of Systems: Pertinent items are noted in HPI or as in patient entered ROS below, remainder of complete ROS is negative. Answers for HPI/ROS submitted by the patient on 09/01/2018 General Symptoms: No Skin Symptoms: Yes HENT Symptoms: No EYE SYMPTOMS: No HEART SYMPTOMS: No LUNG SYMPTOMS: No INTESTINAL SYMPTOMS: No URINARY SYMPTOMS: No GYNECOLOGIC SYMPTOMS: No BREAST SYMPTOMS: No SKELETAL SYMPTOMS: Yes BLOOD SYMPTOMS: No NERVOUS SYSTEM SYMPTOMS: No MENTAL HEALTH SYMPTOMS: No Changes in hair: No Changes in moles/ morales: Yes Itching: No Rashes: No Changes in nails: No Acne: No Hair in places you don't want it: No Change in facial hair: No Warts: No Non-healing sores: Yes Scarring: No Flaking of skin: No Color changes of hands/feet in cold : No Sun sensitivity: No Skin thickening: No Back pain: No Muscle aches: No Neck pain: No Swollen joints: No Joint pain: Yes Bone pain: No Muscle cramps: No Muscle weakness: No Joint stiffness: No Bone fracture: No Active Medications: ??? albuterol (VENTOLIN HFA) 108 (90 Base) MCG/ACT inhaler, Inhale 2 puffs into the lungs every 6 hours as needed for shortness of breath / dyspnea Due for Clinic follow up , Disp: 18 g, Rfl: 0 ??? Ascorbic Acid (VITAMIN C PO), Take 1,500 mg by mouth daily, Disp: , Rfl: ??? Ascorbic Acid (VITAMIN C) 100 MG TABS, Take 1,500 mg by mouth At Bedtime , Disp: , Rfl: ??? B COMPLEX OR, 1 tablet orally at bedtime, Disp: , Rfl: ??? DIGESTIVE ENZYMES PO, , Disp: , Rfl: ??? lisinopril (PRINIVIL/ZESTRIL) 5 MG tablet, TAKE 1 TABLET BY MOUTH EVERY DAY, Disp: 90 tablet, Rfl: 3 ??? MULTI-VITAMIN OR TABS, 1 TABLET DAILY at bedtime, Disp: , Rfl: ??? [place]vine-3 Fatty Acids (FISH OIL PO), Take 2 capsules by mouth At Bedtime, Disp: , Rfl: ??? VITAMIN D, CHOLECALCIFEROL, PO, Take 2,500 Units by mouth At Bedtime, Disp: , Rfl: Allergies: Nicotiana tabacum; Amoxicillin; Cat hair extract; Cat hair [cats]; Sulfa drugs; and Ultram [tramadolhcl] Past Medical History: Hypertension Melanoma Asthma Osteoarthritis Stricture and stenosis of esophagus Urethral stricture Cold sore Past Surgical History: Esophagoscopy, gastroscopy, duodenoscopy, combined Hernia repair Hysterectomy Stent in kidney Surgical pathology exam Family History: Ovarian cancer - mother Heart disease - father Hypertension - father, brother Lipids - father CAD - father, paternal grandmother Breast cancer - maternal grandmother Cervical cancer - paternal aunt Uterine cancer - paternal aunt Diabetes - paternal aunt Testicular cancer - son Social History: This patient presented alone. Smoking status: never Smokeless tobacco: never Alcohol use: yes, 5 beers per week Drug use: no Physical Exam: BP 144/85 Pulse 75 Ht 1.626 m (5' 4) Wt 56.8 kg (125 lb 4.8 oz) LMP 03/29/2005 SpO2 98% BMI 21.51 kg/m?? General: Pleasant female, in no apparent distress ENT: TMs normal bilaterally, oropharynx clear, mucous membranes are moist. Neck: No lymphadenopathy, no thyromegaly, no carotid bruits Resp: lungs clear to ausculation bilaterally CV: Heart regular rate and rhythm, no murmur, rub, or gallop Abd: Soft, nontender, nondistended, normal bowel sounds, no HSM Ext: Warm and well perfused, no LE edema Skin: warm, dry, no rash Neuro: Alert and oriented x 3, no focal deficits Assessment and Plan: Routine history and physical examination of adult - Basic metabolic panel - Albumin Random Urine Quantitative with Creat Ratio - Lipid panel reflex to direct LDL Fasting Encounter for screening mammogram for breast cancer She was amenable to do another mammogram, however does have some concern for radiation exposure. Sheis interested in participating in studies for breast cancer screening that do not involve radiation,and I provided her with a web site to find these studies. - MA Screening Digital Bilateral Screening for hyperlipidemia - Lipid panel reflex to direct LDL Fasting Essential hypertension I recommended taking the 5 mg dose given that her blood pressure is still elevated. - Basic metabolic panel - Albumin Random Urine Quantitative with Creat Ratio - lisinopril (PRINIVIL/ZESTRIL) 5 MG tablet Dispense: 90 tablet; Refill: 3 -Return for nurse visit in ~4 weeks for BP check. If still elevated at that time, increase lisinopril to 10 mg daily. Renal cyst Will do an US to avoid using radiation for time being. However did discuss that if it has grown in size, then we might have to do further imaging. - US Renal Complete Scribe Disclosure: I, Rajwinder Pena, am serving as a scribe to document services personally performed by Jennifer Burton MD at this visit, based upon the provider's statements to me. All documentation has beenreviewed by the aforementioned provider prior to being entered into the official medical record. Portions of this medical record were completed by a scribe. UPON MY REVIEW AND AUTHENTICATION BY ELECTRONIC SIGNATURE, this confirms (a) I performed the applicable clinical services, and (b) the recordis accurate. Jennifer Burton MD documented in this encounter Nursing Notes Zenaida Lagos CMA - 09/01/2018 9:40 AM CDT 62 year old Chief Complaint Patient presents with ??? Physical Pt is here for a physical. Blood pressure 144/85, pulse 75, height 1.626 m (5' 4), weight 56.8 kg (125 lb 4.8 oz), last menstrual period 03/29/2005, SpO2 98 %, not currently . Body mass index is 21.51 kg/m??. BP completed using cuff size: Zenaida Juarez MA September 01, 2018 9:43 AM documented in this encounter Plan of Treatment Not on filedocumented as of this encounter Procedures Procedure Name Priority Date/Time Associated Diagnosis Comme nts ALBUMIN RANDOM URINE Routine 09/01/2018 10:15 Routine history and Results for this QUANTITATIVE AM CDT physical examination procedu re are in of adult the results Essential section. hypertension documented in this encounter Results US Renal Complete (09/08/2018 9:37 AM CDT) Anatomical Region Laterality Modality Abdomen/Pelvis Ultrasound Specimen (Source) Anatomical Location Collection Method / Collectio n Time Received Time / Laterality Volume Impressions 09/08/2018 9:46 AM CDT IMPRESSION: No hydroureteronephrosis or nephrolithiasis. Simple right renal cyst as above; no specific dedicat ed follow-up is required in this regard. I have personally reviewed the examinati on and initial interpretation and I agree with the findings. VALENTINO BROWN MD Narrative 09/08/2018 9:46 AM CDT EXAMINATION: US RENAL COMPLETE, 09/08/2018 9:37 AM COMPARISON: MRI abdomen 09/01/2017. HISTORY: f/u renal cyst; eval for change in size; Renal cyst FINDINGS: Right kidney: Measures 10.4 cm in length . Parenchyma is of normal thickness and echogenicity. No solid foc al mass. No hydronephrosis. 1 cm thin-walled, avascular, anechoic simp le cyst in the lower pole of the right kidney. Left kidney: Measures 11.1 cm in length. Parenchyma is of normal thickness and echogenicity. No focal mas s. No hydronephrosis. Bladder: Within normal limits. Procedure Note Valentino Brown MD - 09/08/2018F ormatting of this note might be different from the original. EXAMINATION: US RENAL COMPLETE, 9 9:37 AM COMPARISON: MRI abdomen 09/01/2017. HISTORY: f/u renal cyst; eval for change in size; Renal cyst FINDINGS: Right kidney: Measures 10.4 cm in length . Parenchyma is of normal thickness and echogenicity. No solid foc al mass. No hydronephrosis. 1 cm thin-walled, avascular, anechoic simp le cyst in the lower pole of the right kidney. Left kidney: Measures 11.1 cm in length. Parenchyma is of normal thickness and echogenicity. No focal mas s. No hydronephrosis. Bladder: Within normal limits. IMPRESSION: No hydroureteronephrosis or nephrolithiasis. Simple right renal cyst as above; no specific dedicat ed follow-up is required in this regard. I have personally reviewed the examinati on and initial interpretation and I agree with the findings. VALENTINO BROWN MD Jennifer Burton MD IMG US ORDERABLES Lipid panel reflex to direct LDL Fasting (09/01/2018 10:39 AM T) [facility] Method Time Signature Cholesterol 165 <200 mg/dL 09/01/2018 [place] 11:13 AM T [facility] Triglycerides 27 <150 mg/dL 09/01/2018 [facility] 11:46 AM T [facility] HDL Cholesterol 89 >49 mg/dL 09/01/2018 [facility] 11:19 AM [facility] LDL Cholesterol 71 <100 mg/dL 09/01/2018 [facility] O F Calculated 11:46 AM [facility] Comment: Desirable: <100 mg/dl Non HDL Cholesterol 76 <130 mg/dL 09/01/2018 11:19 AM T [facility] Specimen Anatomical Collection Method Collection Time Receive d Time (Source) Location / / Volume Laterality Blood specimen 09/01/2018 10:39 9 (specimen) AM CDT 10:41 AM CDT Jennifer Burton MD LAB - BLOOD ORDERABLES Performing Organization Address City/State/ZIP Code Phon e Number [facility] [address] [place] [address] [facility] [address] [place] [address], [place] [phone] Basic metabolic panel (09/01/2018 10:39 AM CDT) P athologist Signature Sodium 138 133 - 144 09/01/2018 [facility] mmol/L 11:09 AM [facility] Potassium 3.9 3.4 - 5.3 09/01/2018 [facility] mmol/L 11:09 AM [facility] Chloride 105 94 - 109 09/01/2018 [facility] mmol/L 11:09 AM [facility] Carbon Dioxide 29 20 - 32 09/01/2018 [place] mmol/L 11:13 AM [facility] Anion Gap 4 3 - 14 09/01/2018 [place] mmol/L 11:13 AM [facility] Glucose 97 70 - 99 09/01/2018 [place] mg/dL 11:13 AM [facility] Urea Nitrogen 13 7 - 30 09/01/2018 [place] mg/dL 11:13 AM [facility] Creatinine 0.71 0.52 - 09/01/2018 [place] 1.04 mg/dL 11:13 AM [facility] GFR Estimate >90 >60 09/01/2018 [place] mL/min/{1. 11:13 AM [facility] 73_m2} [facility] Comment: Non GFR Calc Starting 02/01/2018, serum creatinine ba sed estimated GFR (eGFR) will be calculated using the Chronic Kidney Dise ase Epidemiology Collaboration (CKD-EPI) equation. GFR Estimate If >90 >60 mL/min/{1.73_m2} 09/01/2018 11:13 AM [facility] Comment: GFR Calc Starting 02/01/2018, serum creatinine ba sed estimated GFR (eGFR) will be calculated using the Chronic Kidney Dise ase Epidemiology Collaboration (CKD-EPI) equation. Calcium 8.8 8.5 - 10.1 mg/dL 09/01/2018 11:13 AM CDT [facility] Specimen Anatomical Collection Method Collection Time Receive d Time (Source) Location / / Volume Laterality Blood specimen 09/01/2018 10:39 9 (specimen) AM CDT 10:41 AM CDT Jennifer Burton MD LAB - BLOOD ORDERABLES Performing Organization Address City/State/ZIP Code Phon e Number [facility] [address] [phone] [place] [address] [place] [address], [facility] [phone] [facility] [address] [phone], [facility] Albumin Random Urine Quantitative with Creat Ratio (09/01/2018 10:15 AM CDT) [facility] Method Time Signature Creatinine 29 mg/dL 09/01/2018 [place] Urine 11:28 AM CDT [facility] Albumin Urine <5 mg/L 09/01/2018 [facility] mg/L 11:40 AM CDT [facility] Albumin Urine Unable to 0 - 25 09/01/2018 [facility] mg/g Cr calculate due mg/g Cr 11:40 AM CDT [place] to low value [facility] Specimen Anatomical Collection Method Collection Time Receive d Time (Source) Location / / Volume Laterality Urine specimen 09/01/2018 10:15 9 (specimen) AM CDT 10:49 AM CDT Jennifer Burton MD LAB - URINE ORDERABLES Performing Organization Address City/State/ZIP Code Phon e Number [place] [id number] [place] [address] [facility] [address] [phone], [facility] [phone] documented in this encounter Visit Diagnoses Diagnosis Routine history and physical examination of adult - Primary Routine general medical examination at a health care facility Encounter for screening mammogram for br east cancer Screening for hyperlipidemia Screening for lipoid disorders Essential hypertension Unspecified essential hypertension Renal cyst Unspecified congenital cystic kidney dis ease Renal cyst Unspecified congenital cystic kidney dis ease documented in this encounter Care Teams Offender Employment Specialist Relationship Specialty Start Date End Date David Meneses MD MD Urology 11/24/16 [address] [place], [place] [address] Susie Soto, RN Registered Nurse 11/24/16 Shara Guaman MD MD Dermatology 02/16/17 420 [facility] [address] [place] [address] Layne Nice MD MD Dermatology 05/14/17 [facility] [address] [place] [address] Nikki Peterson APRN FINANCE PROFESSIONAL Assigned PCP 10/03/17 08/05/19 [id number] [address] [address] documented as of this encounter
--- OUTSIDE RECORDS SUMMARY | 2021-12-03 11:47 | XMS_ITS | Encounter Summary ---
:1955 Author Organization [place] Address [address] [place] [address] Care Team Providers Name Role Phone David Meneses MD Unavailable Susie Soto RN Unavailable Shara Guaman MD Unavailable [phone] Layne Nice MD Unavailable Shell Tabares MD Primary Care Provider Shlel Tabares MD Unavailable Encounter Details Date Type Department Care Team Description 12/21/2019 Travel Social History Tobacco Use Types Packs/Day Years Used Date Smoking Tobacco: Never Smokeless Tobacco: Never Alcohol Use Standard Drinks/Week Comments Yes 5 (1 standard drink = 0.6 oz pure alcoho l) occassional Sex Assigned at Date Recorded Female 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 documented as of this encounter Plan of Treatment Not on filedocumented as of this encounter Visit Diagnoses Not on filedocumented in this encounter Care Teams Manager Welding Relationship Specialty Start Date End Date Shell Tabares MD PCP - General Internal Medicine 07/03/19 David Meneses MD MD Urology 11/24/16 [address] [place], [place] [address] Susie Soto, RN Registered Nurse 11/24/16 Shara Guaman MD MD Dermatology 02/16/17 420 [facility] 98 [place] [address] Layne Nice MD MD Dermatology 05/14/17 [facility] [address] [place], [place] [id number] Shell Tabares MD Assigned PCP 08/06/19 05/25/20 [facility] [address] [place], [place] [id number] documented as of this encounter
--- OUTSIDE RECORDS SUMMARY | 2021-12-03 11:47 | XMS_ITS | Encounter Summary ---
:1955 Author Organization [place] Address [address] [place] [address] Care Team Providers Name Role Phone David Meneses MD Unavailable Susie Soto RN Unavailable Shara Guaman MD Unavailable [phone] Layne Nice MD Unavailable Nikki Peterson APRN [facility] Unavailable Reason for Visit Diagnostic Imaging Ultrasound (Routine) - Closed Specialty Diagnoses / Procedures Referred By Contact Refer red To Contact Diagnoses Renal cyst Jennifer Conde Procedures US Renal Complete MD Tisha [address] [place] [address] [place] [address] Referral ID Status Reason Start Date Expiration Date Visits Requ ested Visits Authorized [id number] Closed 09/01/2018 09/01/2019 1 1 Encounter Details Date Type Department Care Team Description 09/08/2018 Ancillary Procedure [facility] booth, Renal cyst US Jennifer Giles MD [address] [place] [address] Social History Tobacco Use Types Packs/Day Years Used Date Smoking Tobacco: Never Smokeless Tobacco: Never Alcohol Use Standard Drinks/Week Comments Yes 5 (1 standard drink = 0.6 oz pure alcoho l) occassional Sex Assigned at Date Recorded Female 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 documented in this encounter Results US Renal [...] MD Jennifer Burton MD IMG US ORDERABLES documented in this encounter Visit Diagnoses Diagnosis Renal cyst Unspecified congenital cystic kidney dis ease documented in this encounter Care Teams Poolroom Table Attendant Relationship Specialty Start Date End Date David Meneses MD MD Urology 11/24/16 [address] [place], [place] [address] Susie Soto, RN Registered Nurse 11/24/16 Shara Guaman MD MD Dermatology 02/16/17 420 [facility] 98 [place], [place] [address] Layne Nice MD MD Dermatology 05/14/17 [facility] [address] [place] [address] Nikki Peterson APRN BIOLOGICAL TECHNICAL OFFICER Assigned PCP 10/03/17 08/05/19 [id number] [address] [place] [address] documented as of this encounter
--- OUTSIDE RECORDS SUMMARY | 2021-12-03 11:47 | XMS_ITS | Encounter Summary ---
:1955 Author Organization [place] Address [address] [place] [address] Care Team Providers Name Role Phone David Meneses MD Unavailable Susie Soto RN Unavailable Shara Guaman MD Unavailable [phone] Layne Nice MD Unavailable Nikki Peterson APRN [facility] Unavailable [phone] Encounter Details Date Type Department Care Team Description 09/08/2018 Travel Social History Tobacco Use Types Packs/Day Years Used Date Smoking Tobacco: Never Smokeless Tobacco: Never Alcohol Use Standard Drinks/Week Comments Yes 5 (1 standard drink = 0.6 oz pure alcoho l) occassional Sex Assigned at Date Recorded Female 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 Plan of Treatment Not on filedocumented as of this encounter Visit Diagnoses Not on filedocumented in this encounter Care Teams Crime Lab Technician Relationship Specialty Start Date End Date David Meneses MD MD Urology 11/24/[address] [place] [address] Susie Soto, RN Registered Nurse 11/24/16 Shara Guaman MD MD Dermatology 02/16/17 420 [facility] 98 [place], [place] [address] Layne Nice MD MD Dermatology 05/14/17 [facility] [address] [facility] [place] [place] [address] Nikki Peterson APRN HAND II TUBE BENDER Assigned PCP 10/03/17 08/05/19 [address] [place] [address] documented as of this encounter
--- OUTSIDE RECORDS SUMMARY | 2021-12-03 11:47 | XMS_ITS | Encounter Summary ---
:1955 Author Organization [facility] Address [address], [place] [address] Care Team Providers Name Role Phone Bj Pelletier MD Primary Care Provider Unavailable Encounter Details Date Type Department Care Team Description 10/20/2001 PN Conversion Only [facility], [address] [address] [address] [facility] [phone] [place], [place] [id number] (Wo rk) Social History Tobacco Use Types Packs/Day Years Used Date Smoking Tobacco: Never Assessed Sex Assigned at Date Recorded Female 10/03/2020 11:17 AM CDT documented as of this encounter Progress Notes Ji Martin MD - 10/20/2001 12:01 AM CDT Progress Notes signed by Ji Martin MD at 12/13/01 2330 Author: Ji Martin MD Service: (none) Author Type: Physician Filed: 06/05/10 0819 Note Time: 10/20/01 0001 Status: Signed Hot Dip Plater: Ji Martin MD (Physician) IMPRESSION: No dictation required. Sinusitis. SUBJECTIVE: See YASMIN jett dated 10/20/01. OBJECTIVE: N/A ASSESSMENT: Sinusitis. PLAN: Augmentin 875 b.i.d. x10 days. Return if symptoms worsen or change or are not improving. Otherwise, follow up p.r.n. TT: CT: [id number] C: DOCUMENT: [id number] D WING AIRCRAFT FLIGHT MECHANIC [facility] 12:01 AM CST Progress Notes signed by at 09/21/00 2139 Author: Cachorro Feldman Service: (none) Author Type: (none) Filed: 06/04/10 1521 Note Time: 05/09/99 0001 Status: Signed Hot Dip Plater: Cachorro Feldman IMPRESSION: Sinusitis. SUBJECTIVE: This is a 43-year-old white female with sinus congestion, facial pain and pressure. About six weeks ago was on Septra DS for seven days. She started to feel better but symptoms came back after three days. 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 She is scheduled to fly again on 05/12. ALLERGIES: NONE. MEDICATIONS: Prevacid. OBJECTIVE: T: 97.4. P: 84. R: 16. BP: 112/76. See [facility] of 05/09/99 for physical findings. ASSESSMENT: Sinusitis. PLAN: Bactrim DS #28 one b.i.d., Vancenase AQ DS two sprays each nostril q.d. [id number] C: DOCUMENT: [id number] SCHEDULED RESOURCE: CALEB VYAS MD D WING AIRCRAFT FLIGHT MECHANIC Caleb Vyas MD - 10/30/1997 12:01 AM CDT Progress Notes signed by Caleb Vyas MD at 11/14/97 1252 Author: Caleb Vyas MD Service: (none) Author Type: Physician Filed: 06/04/10 0608 Note Time: 10/30/97 0001 Status: Signed Hot Dip Plater: Caleb Vyas MD (Physician) IMPRESSION: Urinary tract infection. SUBJECTIVE: A 41-year-old white female with symptoms of dysuria, frequency, urgency, and suprapubic pain. These started today. She does undergo urethral dilatation about every 6 months, with her last procedure about a month ago. Said she used to have a lot of UTI's in the past but hasn't had an episode for 6-7 years. No other changes in her routine that may have started this episode. Adverse Drug Reactions: None. Medications: None. OBJECTIVE: T: 97.2. P: 88. R: 20. BP: 108/68. She is tender in the suprapubic area. Urinalysis shows a large amount of blood, a large amount of leukocyte esterase, 25-50 wbc's per high power field, 2-5 rbc's per high power field, and a few bacteria. ASSESSMENT: UTI. PLAN: Bactrim DS #14 1 b.i.d.. Pyridium 200 mg 1 t.i.d. p.r.n. bladder spasm #10. Push the fluids and recheck p.r.n. juliana Macarena Nunn MD - 10/07/1997 12:01 AM CDT Progress Notes signed by Macarena Nunn MD at 11/09/97 1207 Author: Macarena Nunn MD Service: (none) Author Type: Physician Filed: 06/04/10 0548 Note Time: 10/07/97 0001 Status: Signed Hot Dip Plater: Macarena Nunn MD (Physician) IMPRESSION: Persistent cough. SUBJECTIVE: A 41-year-old female who has had a cough for 1 month or so. The cough has been more kind of irritative with a ticklish sensation. Has had some midchest congestion on and off. Sometimes gets short of breath, especially with activity. A history of asthma. Has been using Ventolin. No fever or chills. No other URI symptoms. No shortness of breath at the moment. Past medical history of asthma. Medications: Ventolin and Sudafed cough syrup. Adverse Drug Reactions: None. OBJECTIVE: T: 98.5. P: 80. R: 20. BP: 110/60. Exam shows the patient breathing comfortably. Lungs are clear to auscultation without any wheezing. Throat is normal. Cardiovascular exam reveals regular rhythm and rate; normal S1, S2. ASSESSMENT: Persistent cough. PLAN: Given albuterol neb x 1, which made the patient feel more opened up. She feels fine and feels at her best lying down, although she was not short of breath before neb either. Her peak flow remains in 330 and 350 before and 300-350 after; not much change. The patient feels at her baseline and does not show any shortness of breath at all. Lungs are completely clear. She was discharged home. Refill of Ventolin inhaler given to use 2 puffs q.i.d. She was asking for a refill of Beconase nasal spray for seasonal allergies. That was given to use 2 puffs b.i.d. in each nostril. Will empirically also treat with erythromycin 500 mg p.o. t.i.d. x 10 days. Should have a follow- up with primary M.D. Recheck if any worsening of shortness of breath. juliana Macarena Nunn MD - 04/06/1996 12:01 AM CST Progress Notes signed by Macarena Nunn MD at 12/13/01 5840 Author: Macarena Nunn MD Service: (none) Author Type: Physician Filed: 06/03/10 2219 Note Time: 04/06/96 0001 Status: Signed Hot Dip Plater: Macarena Nunn MD (Physician) IMPRESSION: No dictation required. Bronchitis. SUBJECTIVE: N/A OBJECTIVE: N/A ASSESSMENT: N/A PLAN: Treatment: Septra. juliana D WING AIRCRAFT FLIGHT MECHANIC Kathy Cerda MD - 04/16/1995 12:01 AM CST Progress Notes signed by Kathy Cerda MD at 12/13/01 2430 Author: Kathy Cerda MD Service: (none) Author Type: Physician Filed: 06/03/10 1852 Note Time: 04/16/95 0001 Status: Signed Hot Dip Plater: Kathy Cerda MD (Physician) IMPRESSION: No dictation required. 39-Year-old patient diagnosed with sinusitis. SUBJECTIVE: N/A OBJECTIVE: N/A ASSESSMENT: N/A PLAN: N/A clh D WING AIRCRAFT FLIGHT MECHANIC documented in this encounter Plan of Treatment Not on filedocumented as of this encounter Procedures Procedure Name Priority Date/Time Associated Comments Diagnosis URINALYSIS COMPLETE Routine 10/30/1997 9:52 AM Re sults for this HOLD CULTURE CDT procedure are i n the results section. documented in this encounter Results (ABNORMAL) Urinalysis Complete Hold Culture (10/30/1997 9:52 AM CDT) [facility] gist Method Time Signature U Specific <=1.005 1.005 - 25 HP CONVERSION [place] pH Urine 7.5 4.5 - 7.5 HP CONVERSION Protein Urine Negative Neg-Trac HP CONVERSION Glucose, Negative Neg-Trac HP CONVERSION Qualitative U Ketones Negative Negative HP CONVERSION U BILI Negative Negative HP CONVERSION Blood Urine Large (A) Negative HP CONVERSION Nitrite Urine Negative Negative HP CONVERSION Leukocyte Large (A) Negative HP CONVERSION Esterase Urine Urobilinogen Negative 0.2 - 1.0 HP CONVERSION Urine White Blood 25-50 (A) 0 - 3 /HPF HP CONVERSION Cells Urine Red Blood Cells 2-5 (A) 0 - 3 /HPF HP CONVERSION Urine Epithelial Cells Few Few /HPF HP CONVERSION Bacteria Urine Few (A) None HP CONVERSION Specimen (Source) Anatomical Collection Method Collection Time Re ceived Time Location / / Volume Laterality 10/30/1997 9:52 AM CDT Caleb Vyas MD LAB_1 Performing Organization Address City/State/ZIP Code Phon e Number HP CONVERSION documented in this encounter Visit Diagnoses Not on filedocumented in this encounter Care Teams Contract Associate Manager Relationship Specialty Start Date End Date Bj Pelletier MD PCP - General 05/19/[address] [place], [address] documented as of this encounter
--- OUTSIDE RECORDS SUMMARY | 2021-12-03 11:47 | XMS_ITS | Encounter Summary ---
:1955 [facility] Address [address] [place] [address] Care Team Providers Name Role Phone Bj Pelletier MD Primary Care Provider Unavailable Encounter Details Date Type Department Care Team Description 12/19/2002 PN Conversion Only [place] [facility] [address] [place] [address] Social History Tobacco Use Types Packs/Day Years Used Date Smoking Tobacco: Never Assessed Sex Assigned at Date Recorded Female 10/03/2020 11:17 AM CDT documented as of this encounter Plan of Treatment Not on filedocumented as of this encounter Visit Diagnoses Not on filedocumented in this encounter Care Teams Scraper Meat Relationship Specialty Start Date End Date Bj Pelletier MD PCP - General 05/19/[address] [place] [address] documented as of this encounter
--- OUTSIDE RECORDS SUMMARY | 2021-12-03 11:48 | XMS_ITS | Encounter Summary ---
:1955 Author Organization [facility] Address [address] [place] [address] Care Team Providers Name Role Phone David Meneses MD Unavailable Susie Soto RN Unavailable Shara Guaman MD Unavailable [phone] Layne Nice MD Unavailable Nikki Peterson APRN [facility] Unavailable [phone] Encounter Details Date Type Department Care Team Description 07/05/2018 Travel Social History Tobacco Use Types Packs/Day Years Used Date Smoking Tobacco: Never Smokeless Tobacco: Never Alcohol Use Standard Drinks/Week Comments Yes 5 (1 standard drink = 0.6 oz pure alcoho l) occassional Sex Assigned at Date Recorded Female 01/06/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 documented as of this encounter Plan of Treatment Not on filedocumented as of this encounter Visit Diagnoses Not on filedocumented in this encounter Care Teams Paving And Surfacing Labourer Relationship Specialty Start Date End Date David Meneses MD MD Urology 11/24/[address] [place] [address] 211185 Susie Soto, RN Registered Nurse 11/24/16 Shara Guaman MD MD Dermatology 02/16/17 [facility] [address] [place], [place] [address] Layne Nice MD MD Dermatology 05/14/17 [facility] [address] [place] [address] Nikki Peterson APRN DIRECTOR OF CONTENT AND PROGRAMMING Assigned PCP 10/03/17 08/05/19 [address] [place] [address] documented as of this encounter
--- OUTSIDE RECORDS SUMMARY | 2021-12-03 11:48 | XMS_ITS | Encounter Summary ---
:1955 Author Organization [facility] Address [facility] [place] [address] Care Team Providers Name Role Phone David Meneses MD Unavailable Susie Soto RN Unavailable Shara Guaman MD Unavailable [phone] Layne Nice MD Unavailable Nikki Peterson APRN AIRLINE CUSTOMER SERVICE AGENT Unavailable Nikki Peterson APRN AIRLINE CUSTOMER SERVICE AGENT Unavailable Reason for Visit Reason Comments Medication Refill Encounter Details Date Type Department Care Team Description 12/26/2017 [facility] MD Medication Refill [facility] [address] [place] [id number] [place] [address] [place] [phone] Social History Tobacco Use Types Packs/Day Years Used Date Smoking Tobacco: Never Smokeless Tobacco: Never Alcohol Use Standard Drinks/Week Comments Yes 5 (1 standard drink = 0.6 oz pure alcoho l) occassional Sex Assigned at Date Recorded Female 01/06/2021 11: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 MARKET 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 documented as of this encounter Plan of Treatment Not on filedocumented as of this encounter Visit Diagnoses Diagnosis Essential hypertension Unspecified essential hypertension documented in this encounter Care Teams Oral Pathologist Relationship Specialty Start Date End Date Nikki Peterson APRN AIRLINE CUSTOMER SERVICE AGENT PCP - Assigned PCP 10/03/17 04/19/18 [address] [place], [place] [id number] David Meneses MD MD Urology 11/24/16 [address] [place] [address] Susie Soto, RN Registered Nurse 11/24/16 Shara Guaman MD MD Dermatology 02/16/17 [facility] 98 [place], [place] [address] Layne Nice MD MD Dermatology 05/14/17 [facility] [address] [place] [address] Nikki Peterson APRN AIRLINE CUSTOMER SERVICE AGENT Assigned PCP 10/03/17 08/05/19 [address] [place] [address] documented as of this encounter
--- OUTSIDE RECORDS SUMMARY | 2021-12-03 11:48 | XMS_ITS | Encounter Summary ---
:1955 Author Organization [facility] Address [address] [place] [address] Care Team Providers Name Role Phone David Meneses MD Unavailable Susie Soto RN Unavailable Shara Guaman MD Unavailable [phone] Layne Nice MD Unavailable iNkki Peterson APRN GARBAGE PICK UP MAN Unavailable Nikki Peterson APRN GARBAGE PICK UP MAN Unavailable Reason for Visit Reason Onset Date Comments Refill Request 02/16/2018 albuterol (VENTOLIN HFA) Encounter Details Date Type Department Care Team Description 02/16/2018 Refill [facility] Shawn Ricci MD Refill Request Clinic [facility] (albuterol (VENTOLIN [address] [facility] [place] [address] HFA) ) [address] [place] [address] Social History Tobacco Use Types Packs/Day Years Used Date Smoking Tobacco: Never Smokeless Tobacco: Never Alcohol Use Standard Drinks/Week Comments Yes 5 (1 standard drink = 0.6 oz pure alcoho l) occassional Sex Assigned at Date Recorded Female 01/06/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 documented as of this encounter Miscellaneous Notes Telephone Encounter - Juliette Oliveira RN - 02/16/2018 12:55 PM CST Last Clinic Visit: 09/02/2017 [facility] INE STRIPPER documented in this encounter Plan of Treatment Not on filedocumented as of this encounter Visit Diagnoses Diagnosis ASTHMA - MILD PERSISTENT Unspecified asthma documented in this encounter Care Teams Chemist Pharmaceutical Relationship Specialty Start Date End Date Nikki Peterson APRN GARBAGE PICK UP MAN PCP - Assigned PCP 10/03/17 04/19/18 [address] [address] [place] [address] David Meneses MD MD Urology 11/24/16 [address] [place], [place] [address] Susie Soto, RN Registered Nurse 11/24/16 Shara Guaman MD MD Dermatology 02/16/17 [address] [facility] 98 [place], [place] [address] Layne Nice MD MD Dermatology 05/14/17 [facility] [address] [place] [address] Nikki Peterson APRN GARBAGE PICK UP MAN Assigned PCP 10/03/17 08/05/19 [address] [address] [place] [address] documented as of this encounter
--- OUTSIDE RECORDS SUMMARY | 2021-12-03 11:48 | XMS_ITS | Encounter Summary ---
:1955 Author Organization [facility] Address [address] [place] [address] Care Team Providers Name Role Phone David Meneses MD Unavailable Susie Soto RN Unavailable Shara Guaman MD Unavailable [phone] Layne Nice MD Unavailable Encounter Details Date Type Department Care Team Description 09/27/2017 Telephone [facility], ANTONIA [address] [place] [address] Social History Tobacco Use Types Packs/Day Years Used Date Smoking Tobacco: Never Smokeless Tobacco: Never Alcohol Use Standard Drinks/Week Comments Yes 5 (1 standard drink = 0.6 oz pure alcoho l) Sex Assigned at Date Recorded Female 01/06/2021 11:10 AM CASING BUILDER documented as of this encounter Plan of Treatment Not on filedocumented as of this encounter Visit Diagnoses Not on filedocumented in this encounter Care Teams Roll Handler Relationship Specialty Start Date End Date David Meneses MD MD Urology 11/24/[address] [place] [id number] Susie Soto, RN Registered Nurse 11/24/16 Shara Guaman MD MD Dermatology 02/16/17 [address] [facility] 98 [place], [place] [address] Layne Nice MD MD Dermatology 05/14/17 [facility] [address] [place], [place] [id number] documented as of this encounter
--- OUTSIDE RECORDS SUMMARY | 2021-12-03 11:48 | XMS_ITS | Encounter Summary ---
:1955 Author Organization [facility] Address [address] [place] [address] Care Team Providers Name Role Phone David Meneses MD Unavailable Susie Soto RN Unavailable Shara Guaman MD Unavailable [phone] Layne Nice MD Unavailable Reason for Visit Auth/Cert Specialty Diagnoses / Procedures Referred By Contact Refer red To Contact Gastroenterology Diagnoses Dilation of pancreatic duct [facility] Endoscopy Procedures COMBINED ENDOSCOPIC ULTRASOUND, ESOPHAGOSCOPY, GASTROSCOPY, DUODENOSCOPY (EGD) [address] [place] [address] Phone: Referral ID Status Reason Start Date Expiration Date Visits Requ ested Visits Authorized [id number] 1 1 Encounter Details Date Type Department Care Team Description 09/28/2017 Surgery [facility] En doscopGuru Cordelia EUS [address] [facility] [place] [address] [address] [facility] [phone] [place] [address] (Wo rk) Surgery Details Date/Time Status Location OR Service Patient Class Case Case Trauma Class Type Case? 09/28/17 Posted [facility] GI [facility] Gastroenterology Outpatient 10:00 AM 01 Panel 1 Procedure LRB Anes Op Region Wound Class Commen ts EUS N/A MAC Esophagus II-Clean Contaminated EUS Surgeon Surgeon Role Service Panel Guru Danny Landaverde MD Primary Gastroen terology 1 Special Needs What is your current height? 5'3What is your current weight?127Are you on daily home oxygen? noHave you had a heart or lung t ransplant? noIn the past year, have you had any heart related issues Including cardi omyopathy or a PA wi thin 6 months, that required cardiac jimbo nting or other implantable devices? noWhat type of implantable device do you have? noDo you take nitroglycerin? If yes, how often? noAre you currently taking any bl ood thinners?no(Females) Are you currently ? no If yes, how many weeks?Have you had a procedure in the past that was difficult to tolerate with conscious sedation? Any allergies to Fentanyl or Versed noDo you currently us e any of the following?Are you taking any scheduled prescription narco tics more than once daily? noDrink alcohol daily? noCurrently using any street drug s or methadone?noDo you have any history of post-traumatic stress syndrome or mental health issues? no documented in this encounter Social History Tobacco Use Types Packs/Day Years Used Date Smoking Tobacco: Never Smokeless Tobacco: Never Alcohol Use Standard Drinks/Week Comments Yes 5 (1 standard drink = 0.6 oz pure alcoho l) occassional Sex Assigned at Date Recorded Female 01/06/2021 11:10 AM PICKER documented as of this encounter Last Filed Vital Signs Vital Sign Reading Time Taken Comments Blood Pressure 167/99 09/28/2017 11:00 AM CDT Pulse 78 09/28/2017 10:33 AM CDT Temperature 36.6 ??C (97.8 ??F) 09/28/2017 10:33 AM CDT Respiratory Rate 15 09/28/2017 11:07 AM CDT Oxygen Saturation 99% 09/28/2017 11:29 AM CDT Inhaled Oxygen Concentration - - Weight 57.9 kg (127 lb 11.2 oz) 09/28/2017 9:47 AM CDT Height - - Body Mass Index 22.62 03/05/2017 9:13 AM PICKER documented in this encounter Discharge Instructions Discharge InstructionsChristina Downey RN - 09/28/2017 10:45 AM CDT [facility] Endoscopic Ultrasound with Monitored Anesthesia Care by Dr Guru Landaverde For 24 hours after your procedure Sedation: 1. Get plenty of rest. A responsible adult must stay with you for at least 24 hours after you leave the hospital. 2. Do not drive or use heavy equipment. If you have weakness or tingling, don't drive or use heavy equipment until this feeling goes away. 3. Do not drink alcohol. 4. Avoid strenuous or risky activities. Ask for help when climbing stairs. 5. You may feel lightheaded. IF so, sit for a few minutes before standing. Have someone help you getup. 6. If you have nausea (feel sick to your stomach): Drink only clear liquids such as apple juice, pooja ester, broth or 7-Up. Rest may also help. Be sure to drink enough fluids. Move to a regular diet asyou feel able. 7. You may have a slight fever. Call the doctor if your fever is over 100??F (37.7??C) (taken under the tongue) or lasts longer than 24 hours. 8. You may have a dry mouth, a sore throat, muscle aches or trouble sleeping. These should go away after 24 hours. 9. Do not make important or legal decisions. Procedural: 1. Start with sips of water. When your gag reflex has returned, you may return to your normal diet, medicines, and light exercise. 2. Some bloating is normal. You may have large burps or pass air. 3. You may have a sore throat for 2 to 3 days. If so, it may help to: ??? Use sore throat lozenges. ??? Gargle as need with salt water up to 4 times a day. Mix 1 cup of warm water with 1 teaspoon of salt. Do not swallow. 4. You may take Tylenol (acetaminophen) for pain unless your doctor has told you not to. Call right away if you have: 1. Unusual pain in belly or chest pain not relieved with passing air. 2. Severe throat pain or trouble swallowing. 3. Black stools (tar-like looking bowel movement). 4. Signs of infection (fever). 5. It has been over 8 to 10 hours since the procedure and you are still not able to urinate (pass water). 6. Headache for over 24 hours. Follow-up: __X__ If you have severe pain, bleeding, vomit blood, or shortness of breath, go to an emergency room. If you have questions, call: Endoscopy: Wednesday to Wednesday, 7 a.m. to 4:30 p.m. [phone] (We may have to call you back) After hours: Hospital Chief Librarian Extension Department [phone] (Ask for the GI fellow contact center professional) documented in this encounter Medications at Time of Discharge Medication Sig Dispensed Refills Start Date End Date Ascorbic Acid (VITAMIN C Take 1,500 mg by 0 PO) mouth daily Ascorbic Acid (VITAMIN Take 1,500 mg by 0 007 C) 100 MG TABS mouth At Bedtime B COMPLEX OR 1 tablet orally at 0 bedtime MULTI-VITAMIN OR TABS 1 TABLET DAILY at 0 bedtime [place]-3 Fatty Acids Take 2 capsules by 0 (FISH OIL PO) mouth At Bedtime VITAMIN D, Take 2,500 Units by 0 CHOLECALCIFEROL, PO mouth At Bedtime albuterol (VENTOLIN HFA) Inhale 2 puffs into 1 Inhaler 1 02/16/2018 108 (90 BASE) MCG/ACT the lungs every 6 InhalerIndications: Mild hours as needed for persistent asthma shortness of breath / dyspnea lisinopril Take 1 tablet (5 mg) 90 tablet 3 01/15/201712/16 (PRINIVIL/ZESTRIL) 5 MG by mouth daily tabletIndications: Essential hypertension documented as of this encounter Nursing Notes Jn Reyes RN - 09/28/2017 10:33 AM CDT EUS under MAC. No interventions. ENVIRONMENTAL SCIENCES PROFESSOR To document meds, vitals, sedation score and will transport torecovery documented in this encounter Plan of Treatment Not on filedocumented as of this encounter Procedures Procedure Name Priority Date/Time Associated Diagnosis Comme nts ESOPHAGOGASTRODUODENOSC 09/28/2017 10:00 AM Dilation o f pancreatic OPY, WITH ENDOSCOPIC US CDT duct Special Needs What is your current height? 5'3What is your current weight?127Are you on daily home oxygen? noHave you had a heart or lung transplant? noIn the past year, have you had any heart related is sues Including cardiomyopathy or a PA wi thin 6 months, that required cardiac stenting or other implantable devices? noWhat type of implantable device d o you have? noDo you take nitroglycerin? If yes, how often? noAre you currently t aking any blood thinners?no(Females) Are you currently ? no If yes, how many weeks?Have you had a procedure in the past that was difficult to t olerate with conscious sedation? Any allergies to Fentanyl or Versed noDo you currently use any of the following?Are you taking any scheduled prescr iption narcotics more than once daily? noDrink alcohol daily? noCurrently using any street drugs or methadone?noDo you have any history of post-traumatic stress syndro me or mental health issues? no UPPER EUS Routine 09/28/2017 9:32 AM CDT Resul ts for this procedure are in the results section . documented in this encounter Results UPPER EUS (09/28/2017 9:32 AM CDT) [facility] Method Time Signature [facility] RADIOLOGY [address] [facility] [place] [address] [phone] ? End oscopy Department RESULTS Patient Name: Megan العلي ? Procedure Date: 09/28 9:32 AM ? Accou nt Number: [id number] Date of : 1955 ?Admit Type: Out patient Age: 61 ? Room: Silas junior #1 Gender: Female ?Note Statu s: Finalized Attending MD: Guru Landaverde , ? Total Sedation Time : Procedure: ? Upper EUS Indications: ? Dilated pancreatic duct on MRCP ? 61 year white female with h/o hypertension, asthma was ? evaluated for a right sided renal mass and the MRI ? showed a dilated pancreatic duct. MRI showed a minimal ? irregular pancreatic ductal dilatation, along with ? multifocal side branch ectasia.Her only symptom is 10 ? lbs intentional weight loss (she was aggressively ? exercising). Endoscopic ultrasound to evaluate for ? dilated pancreatic duct to particularly evaluate for IPMN Providers: ? Guru Landaverde, Jn Reyes, RN Referring MD: ?Shell Early MD Medicines: ? Monitored Anesthesia Care Complications: ? No immediate complications. Procedure: ? Pre-Anesthesia Assessment: ? - Prior to the procedure, a History and Physical was ? performed, and patient medications and allergies were ? reviewed. The patient is competent. The risks and ? benefits of the procedure and the sedation options and ? risks were discussed with the patient. All questions ? were answered and informed consent was obtained. Patient ? identification and proposed procedure were verified by ? the physician and the nurse in the pre-procedure area. ? Mental Status Examination: alert and oriented. Airway ? Examination: normal oropharyngeal airway and neck ? mobility. Respiratory Examina tion: clear to ? auscultation. CV Examination: normal. Prophylactic ? Antibiotics: The patient does not require prophylactic ? antibiotics. Prior Anticoagulants: The patient has taken ? no previous anticoagulant or antiplatelet agents. ASA ? Grade Assessment: II - A patient with mild systemic ? disease. After reviewing the risks and benefits, the ? patient was deemed in satisfactory condition to undergo ? the procedure. The anesthesia plan was to use monitored ? anesthesia care (MAC). Immedi ately prior to ? administration of medications, the patient was ? re-assessed for adequacy to receive sedatives. The heart ? rate, respiratory rate, oxygen saturations, blood ? pressure, adequacy of pulmonary ventilation, and ? response to care were monitored throughout the ? procedure. The physical status of the patient was ? re-assessed after the procedu re. ? After obtaining informed consent, the endoscope was ? passed under direct vision. Throughout the procedure, ? the patie nt's blood pressure, pulse, and oxygen ? saturations were monitored continuously. The ? Endosonoscope was introduced through the mouth, and ? advanced to the second part of duodenum. The ? Endosonoscope was introduced through the mouth, and ? advanced to the second part of duodenum. The Endoscope ? was introduced through the mouth, and advanced to the ? second part of duodenum. The upper EUS was accomplished ? without difficulty. The patient tolerated the procedure ? well. ? Findings: ? Endosonographic Finding : ? The major papilla was endoscopica lly and sonographically normal and was ? located adjacent to a periampullary diver ticulum. The common bile duct ? was followed from the major papilla to the liver and no stones were ? seen. The duct was non-dilated, m easuring 5 mm in maximal diameter. The ? gallbladder was sonographically normal wi thout stones or sludge. There ? was no gallbladder wall thickening or per icholecystic fluid. There was ? no intrahepatic biliary dilation. ? The pancreatic parenchyma appeared normal. No prashanth s, or stones were ? visualized in the pancreatic parenchyma.The pancreati c duct had ? hyperechoic manning in the pancreatic head/neck region and there was ? suggestion of a stricture in PD head/neck regio n. The pancreatic duct ? measured up to 4 mm in diameter in the he ad, 6 mm in the neck, 2 mm in ? diameter in the body . The pancreatic duct had a prominently branched ? endosonographic appearance in the genu of the pancreas and body of the ? pancreas. ? Endosonographic imagi ng in the visualized portion of the liver showed no ? mass. ? The left adrenal gland was sonogr aphically normal. No masses were seen. ? No lymphadenopathy seen in the mediastinum. ? Impression: ?- Major papilla was adjacent to a periampullary ? diverticulum as visualized on MRCP ? - Entire visualized pancreatic parenchyma appeared ? unremarkable without any focal masses. Pancreatic duct ? appeared prominent measuring upto 4 mm, unclear if this ? is secondary to the diverticulum, some suggestion of ? stricture in neck region and visible side- branches as ? visualized on MRI. No mass seen at the level of the PD ? stricture . Overall EUS findings of 3/9 standard ? endosonographic features indeterminate for pancreatitis ? - Bile duct/gall bladder was unremarkable without stones ? or sludge. ? - No focal masses in the visualized portion of the liver Recommendation: ?- Ob serve patient in GI recovery unit for ongoing care. ? - Discuss ed with patient that EUS findings were ? indeterminate for chronic pancreatitis, especially she ? did not have a preceding history of acute pancreatitis ? - Will recommend panc-bili clinic follow up to discuss ? further management in 6 month s ? Guru Lozanoalmakarla, 09/30/2017 2:15:56 PM Number of Addenda: 0 Note Initiated On: 09/28/2017 9:32 AM Scope In: Scope Out: Specimen (Source) Anatomical Collection Method Collection Time Re ceived Time Location / / Volume Laterality 09/28/2017 9:32 AM CDT Shell Tabares MD PROCEDURES Performing Organization Address City/State/ZIP Code Phon e Number RADIOLOGY RESULTS documented in this encounter Visit Diagnoses Not on filedocumented in this encounter Administered Medications Inactive Administered Medications - up to 3 most recent administrations Medication Order MAR Action Action Date Dose Rate Site lactated ringers infusion at 100 mL/hr, Intravenous, CONTINUOUS, Continue until IV catheter is weaned, PACU/Phase II, Starting on Wed09/28/17 at 1045, Until Wed09/28/17 at 1352 meperidine (DEMEROL) injection 12.5 mg 12.5 mg, Intravenous, EVERY 15 MIN PRN, post anesthesia shivering, Starting on Wed09/28/17 at 1039, For 2 doses, Give IV Pu sh undiluted. 10-40 mg over 2-3 minutes, up to 125 mg over 3-15 minutes, PACU/Phase II naloxone (NARCAN) injection 0.1-0.4 mg 0.1-0.4 mg, Intravenous, EVERY 2 MIN PRN , opioid reversal, Starting on Wed09/28/17 at 1039, For 24 hours, For apnea or imminent respirato ry arrest: give 0.4 mg IV undiluted Q 2 minutes PRN until desired degree of reversal is obtained, stop opioid and notify provider. Continue monitoring until dischar ge are criteria met for a minimum of 2 hours. For severe sedation, decrease in respiratory depth, quality or Respiratory Rate greater than 8: give 0. 1 mg IV Q 2 minutes x 3 doses, stop opioid and notify provider. Try to minimize reversal of analg esia especially in end-of-life patients. Continue monitorin g until discharge criteria are met for a minimum of 2 hours. For ordered doses up to 2mg give IVP. Give each 0.4mg over 15 seconds in emergency situations. For non -emergent situations further dilute in 9mL of NS to facilitate titration of response., PACU/Phase II ondansetron (ZOFRAN) injection 4 mg 4 mg, Intravenous, EVERY 30 MIN PRN, rut sea, vomiting, Administer over 2-5 Minutes, Starting on Wed09/28/17 at 1039, For 2 d oses, MAX total dose = 8 mg, including OR dosing. This is step 1 of nausea and vomiting manageme nt. If not resolved in 15 minutes, then go to step 2 [prochlorpera zine (COMPAZINE) if ordered]. Irritant. For ordered doses up to 4 mg, give IV Push u ndiluted over 2-5 minutes., PACU/Phase II ondansetron (ZOFRAN-ODT) ODT tab 4 mg 4 mg, Oral, EVERY 30 MIN PRN, nausea, vo miting, Starting on Wed09/28/17 at 1039, For 2 doses, MAX total dose = 8 mg, incl uding OR dosing. This is step 1 of nausea and vomiting management. If not resolved in 15 minutes , then go to step 2 [prochlorperazine (COMPAZINE) if ordered ]. With dry hands, peel back foil backing and gently remove tablet; do not push oral disintegrat ing tablet through foil backing; administer immediately on tongu e and oral disintegrating tablet dissolves in seconds; then swallow with saliva; liquid not requi red., PACU/Phase II prochlorperazine (COMPAZINE) injection 1 0 mg 10 mg, Intravenous, EVERY 6 HOURS PRN, nausea, vomitin g, Administer over 1-2 Minutes, Starting on Wed09/28/17 at 1039, This is Step 2 of nausea and vomiting management. If nausea not resolved in 15 minutes, give metoclopramide (REGLAN) if ordered [step 3 of nausea and vomiting m anagement]. For ordered doses up to 10 mg, give IV Push undiluted. Each 5mg over 1 minute., PACU/ Phase II simethicone (MYLICON) suspension Given 09/28/2017 9:43 AM CDT 2 mLs PRN, Starting on Wed09/28/17 at 0943, Intra-procedure documented in this encounter Active and Recently Administered Medications Times are shown in CDT. Continuous Medication Order 09/26/2017 09/27/2017 09/28/2017 lactated ringers infusion 1045 ( Canceled Entry - Provider: Orders Generic Provider - Comment: Automatically canceled at discontinue of medication order) at 100 mL/hr, Intravenous, CONTINUOUS, C ontinue until IV catheter is weaned, PACU/Phase II, Starting Wed09/28/17 at 1045, Until Wed09/28/17 at 1352 PRN Medication Order 09/26/2017 09/27/2017 09/28/2017 meperidine (DEMEROL) injection 12.5 mg 12.5 mg, Intravenous, EVERY 15 MIN PRN, 2 doses, Starting 09/28/17 at 1039, Until 09/28/17 at 1352, post anesthesia shivering, PACU/Phase II, Give IV Push undiluted. 10-40 mg over 2-3 minutes, up to 125 mg over 3-15 minutes naloxone (NARCAN) injection 0.1-0.4 mg 0.1-0.4 mg, Intravenous, EVERY 2 MIN PRN , opioid reversal, Starting Wed09/28/17 at 1039, For 24 hours, For apnea or imminent respiratory arrest: give 0.4 mg IV undiluted Q 2 minutes PRN until desired de gree of reversal is obtained, stop opioi d and notify provider. Continue monitoring until discharge are criteria met for a minimum of 2 hours. For severe sedation, decrease in respiratory depth, quality or Respiratory Rate greater than 8: give 0.1 mg IV Q 2 minutes x 3 doses, stop opioid and notify provider. Try to minimize reversal of analgesia especially in end-of-life patients. Continue monitoring u ntil discharge criteria are met for a mi nimum of 2 hours. For ordered doses up to 2mg give IVP. Give each 0.4mg over 15 seconds in emergency situations. For non-emergent situations further dilute in 9mL of NS to facilitate titration of response., PACU/Phase II ondansetron (ZOFRAN) injection 4 mg(Linked Group 1) 4 mg, Intravenous, EVERY 30 MIN PRN, rut sea, vomiting, Administer over 2-5 Minutes, Starting Wed09/28/17 at 1039, For 2 doses, MAX total dose = 8 mg, including OR dosing. This is step 1 of nausea and vo miting management. If not resolved in 15 minutes, then go to step 2 [prochlorperazine (COMPAZINE) if ordered]. Irritant. For ordered doses up to 4 mg, give IV Push undiluted over 2-5 minutes., PACU/Phase II ondansetron (ZOFRAN-ODT) ODT tab 4 mg(Linked Group 1) 4 mg, Oral, EVERY 30 MIN PRN, nausea, vo miting, Starting Wed09/28/17 at 1039, For 2 doses, MAX total dose = 8 mg, including OR dosing. This is step 1 of nausea and vomiting management. If not resolved i n 15 minutes, then go to step 2 [prochlo rperazine (COMPAZINE) if ordered]. With dry hands, peel back foil backing and gently remove tablet; do not push oral disintegrating tablet through foil backing; a dminister immediately on tongue and oral disintegrating tablet dissolves in seconds; then swallow with saliva; liquid not required., PACU/Phase II prochlorperazine (COMPAZINE) injection 10 mg 10 mg, Intravenous, EVERY 6 HOURS PRN, n ausea, vomiting, Administer over 1-2 Minutes, Starting Wed09/28/17 at 1039, This is Step 2 of nausea and vomiting management. If nausea not resolved in 15 minutes , give metoclopramide (REGLAN) if ordere d [step 3 of nausea and vomiting management]. For ordered doses up to 10 mg, give IV Push undiluted. Each 5mg over 1 minute., PACU/Phase II simethicone (MYLICON) suspension 0943 (Given - Provider: Jn Reyes RN - Comment: in irrigation bottle) PRN, Starting Wed09/28/17 at 0943, Intra-procedure Linked Groups Order Group 1: ondansetron (ZOFRAN-ODT) ODT tab 4 mgJump to med 4 mg, Oral, EVERY 30 MIN PRN, nausea, vo miting, Starting Wed09/28/17 at 1039, For 2 doses
MAX total dose = 8 mg, including OR dosing. This is step 1 of nausea and vomiting management. If not resolved in 15 minutes, the n go to step 2 [prochlorperazine (COMPAZINE) if ordered]. With dry hands, peel back foil backing and gently remove tablet; do not push oral disintegr ating tablet through foil backing; admin ister immediately on tongue and oral disintegrating tablet dissolves in seconds; then swallow with saliva; liquid not required.
PACU/Phase II Or ondansetron (ZOFRAN) injection 4 mgJump to med 4 mg, Intravenous, EVERY 30 MIN PRN, rut sea, vomiting, Administer over 2-5 Minutes, Starting Wed09/28/17 at 1039, For 2 doses
MAX total dose = 8 mg, including OR dosing. This is step 1 of nause a and vomiting management. If not resolved in 15 minutes, then go to step 2 [prochlorperazine (COMPAZINE) if ordered]. Irritant. For ordered doses up to 4 mg, give IV Push undiluted over 2-5 minutes.
PACU/Phase II documented in this encounter Care Teams Sap Bw Architect Relationship Specialty Start Date End Date David Meneses MD MD Urology 11/24/16 [address] [place] [address] Susie Soto, RN Registered Nurse 11/24/16 Shara Guaman MD MD Dermatology 02/16/17 [address] [facility] [address] [place] [address] Layne Nice MD MD Dermatology 05/14/17 [facility] [address] [place] [address] documented as of this encounter
--- OUTSIDE RECORDS SUMMARY | 2021-12-03 11:48 | XMS_ITS | Encounter Summary ---
:1955 Author Organization [facility] Address [address] [place] [address] Care Team Providers Name Role Phone David Meneses MD Unavailable Susie Soto RN Unavailable Shara Guaman MD Unavailable [phone] Layne Nice MD Unavailable Reason for Visit Reason Onset Date Comments Appointment 09/10/2017 Encounter Details Date Type Department Care Team Description 09/10/2017 Telephone [facility] En Alicia Johnson, MYAH Appointment [address] [place] [phone] Social History Tobacco Use Types Packs/Day Years Used Date Smoking Tobacco: Never Smokeless Tobacco: Never Alcohol Use Standard Drinks/Week Comments Yes 5 (1 standard drink = 0.6 oz pure alcoho l) Sex Assigned at Date Recorded Female 01/06/2021 11:10 AM COYOTE HUNTER documented as of this encounter Plan of Treatment Not on filedocumented as of this encounter Visit Diagnoses Not on filedocumented in this encounter Care Teams Cheesemaking Laborer Relationship Specialty Start Date End Date David Meneses MD MD Urology 11/24/16 [address] [place], [place] [address] Susie Soto, RN Registered Nurse 11/24/16 Shara Guaman MD MD Dermatology 02/16/[address] [place] [address] [address] [place] [address] Layne Nice MD MD Dermatology 05/14/17 [facility] [address] [place] [id number] documented as of this encounter
--- OUTSIDE RECORDS SUMMARY | 2021-12-03 11:48 | XMS_ITS | Encounter Summary ---
:1955 Author Organization [place] Address [facility] [place] [address] Care Team Providers Name Role Phone David Meneses MD Unavailable Susie Soto RN Unavailable Shara Guaman MD Unavailable [phone] Layne Nice MD Unavailable Reason for Visit Auth/Cert Specialty Diagnoses / Procedures Referred By Contact Refer red To Contact Gastroenterology Diagnoses Dilation of pancreatic duct Uu Endoscopy Procedures COMBINED ENDOSCOPIC ULTRASOUND, ESOPHAGOSCOPY, GASTROSCOPY, DUODENOSCOPY (EGD) [address] [place] [address] Phone: Referral ID Status Reason Start Date Expiration Date Visits Requ ested Visits Authorized [id number] 1 1 Encounter Details Date Type Department Care Team Description 09/28/[address] 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 to 4:30 p.m. [phone] (We may have to call you back) After hours: Hospital Lens Assistant [phone] (Ask for the GI fellow it applications manager) documented in this encounter Medications at Time of Discharge Medication Sig Dispensed Refills Start Date End Date Ascorbic Acid (VITAMIN C Take 1,500 mg by 0 PO) mouth daily Ascorbic Acid (VITAMIN Take 1,500 mg by 0 007 C) 100 MG TABS mouth At Bedtime B COMPLEX OR 1 tablet orally at 0 bedtime MULTI-VITAMIN OR TABS 1 TABLET DAILY at 0 bedtime Stuart-3 Fatty Acids Take 2 capsules by 0 [...] AM CDT EUS under MAC. No interventions. COOKER HELPER To document meds, vitals, sedation score and [...] related is sues Including cardiomyopathy or a OR wi thin 6 months, that required cardiac [...] Results UPPER EUS (09/28/2017 9:32 AM CDT) [facility] Method Time Signature [facility] RADIOLOGY [address] [place] [address] [phone] ? End oscopy Department RESULTS Patient Name: Megan العلي ? Procedure Date: 09/28 9:32 AM ? Accou nt Number: [id number] Date of : 1955 ?Admit Type: Out patient Age: 61 ? Room: [facility] Gender: Female ?Note Statu s: Finalized [...] to particularly evaluate for IPMN Providers: ? Jn Fuller RN Referring MD: ?Shell Early MD Medicines: [...] ? stricture . Overall EUS findings of 04/23 standard ? endosonographic features indeterminate for pancreatitis [...] management in 6 month s ? Guru Landaverde, 09/30/2017 2:15:56 PM Number of Addenda: 0 [...] EVERY 15 MIN PRN, 2 doses, Starting Wed09/28/17 at 1039, Until Wed09/28/17 at 1352, post anesthesia shivering, PACU/Phase II, [...] sea, vomiting, Administer over 2-5 Minutes, Starting 09/28/17 at 1039, For 2 doses, MAX total [...] 30 MIN PRN, nausea, vo miting, Starting 09/28/17 at 1039, For 2 doses, MAX total [...] ausea, vomiting, Administer over 1-2 Minutes, Starting 09/28/17 at 1039, This is Step 2 of [...] - Comment: in irrigation bottle) PRN, Starting e 09/28/17 at 0943, Intra-procedure Linked Groups Order Group 1: ondansetron (ZOFRAN-ODT) ODT tab 4 mgJump to med 4 mg, Oral, EVERY 30 MIN PRN, nausea, vo miting, Starting 09/28/17 at 1039, For 2 doses
MAX total [...] II documented in this encounter Care Teams Package Crimper Relationship Specialty Start Date End Date David Meneses MD MD Urology 11/24/16 [address] [place], [place] [id number] Susie Soto, RN Registered Nurse 11/24/16 Shara Guaman MD MD Dermatology 02/16/17 [address] [facility] [address] [place], [place] [id number] Layne Nice MD MD Dermatology 05/14/17 [facility] [address] [place] [address] documented as of this encounter
--- OUTSIDE RECORDS SUMMARY | 2021-12-03 11:48 | XMS_ITS | Encounter Summary ---
:1955 Author Organization [place] Address [address] [place] [address] Care Team Providers Name Role Phone David Meneses MD Unavailable Susie Soto RN Unavailable Shara Guaman MD Unavailable [phone] Layne Nice MD Unavailable Reason for Visit Reason Comments Clinic Care Coordination - Post Hospital EUS 09/28/2017 Encounter Details Date Type Department Care Team Description 10/01/2017 Care Coordination [facility] Pancreas Jerri Chance c Care and Biliary ANTONIA Harden Coordination - Post [address] [place] [address] [facility] (EUS 4th Floor (Work) 09/28/2017) [place] [address] Social History Tobacco Use Types Packs/Day Years Used Date Smoking Tobacco: Never Smokeless Tobacco: Never Alcohol Use Standard Drinks/Week Comments Yes 5 (1 standard drink = 0.6 oz pure alcoho l) occassional Sex Assigned at Date Recorded Female 01/06/2021 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 Landaverde: Follow-up Post procedure recommendations: - Observe patient in GI recovery unit for ongoing care. - Discussed with patient that EUS findings were indeterminate for chronic pancreatitis, especially she did not have a preceding history of acute pancreatitis - Will recommend panc-bili clinic follow up to discuss further management in 6 months Patient states: Patient was called to assess how she is doing after her procedure. The direct phone number was left in a voicemail with a request for the patient to call back at her earliest convenience. Orders placed: None at this time. Fina Irving RN Coordinator Dr. Landaverde [facility] Endoscopy [phone] documented in this encounter Plan of Treatment Not on filedocumented as of this encounter Visit Diagnoses Not on filedocumented in this encounter Care Teams Furniture Finisher Helper Relationship Specialty Start Date End Date David Meneses MD MD Urology 11/24/16 [address] [place], [place] [id number] Susie Soto, RN Registered Nurse 11/24/16 Shara Guaman MD MD Dermatology 02/16/17 [address] [facility] [address] [place] [address] Layne Nice MD MD Dermatology 05/14/17 [facility] [address] [place] [address] [place] [address] documented as of this encounter
--- OUTSIDE RECORDS SUMMARY | 2021-12-03 11:48 | XMS_ITS | Encounter Summary ---
:1955 Author Organization [place] Address [facility] [place] [address] Care Team Providers Name Role Phone David Meneses MD Unavailable Susie Soto RN Unavailable Shara Guaman MD Unavailable [phone] Layne Nice MD Unavailable Reason for Visit Reason Onset Date Comments Pt. Information/instruction 09/27/2017 Encounter Details Date Type Department Care Team Description 09/27/2017 Telephone [facility] Kraig Ingram, Pt. 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 Dilation of pancreatic duct Referring Provider. Spray Painter? No Arrival time verified? Patient to arrive at 930 am Facility location verified? [address] Instructions given regarding prep and procedure. Transportation policy reviewed and verbalized understanding. Prep Type NPO 8 hours Are you taking any anticoagulants or blood thinners? Denies Instructions given? Yes Electronic implanted devices? Denies Pre procedure teaching completed? Yes Transportation from procedure? Yes, H&P / Pre op physical completed? Scheduled today 09/27 Kraig Ingram, RN documented in this encounter Plan of Treatment Not on filedocumented as of this encounter Visit Diagnoses Not on filedocumented in this encounter Care Teams Extension Service Supervisor Relationship Specialty Start Date End Date David Meneses MD MD Urology 11/24/16 [address] [place], [place] [address] Susie Soto, RN Registered Nurse 11/24/16 Shara Guaman MD MD Dermatology 02/16/17 [address] [facility] [address] [place], [place] [address] Layne Nice MD MD Dermatology 05/14/17 [facility] [address] [facility] [address] documented as of this encounter
--- OUTSIDE RECORDS SUMMARY | 2021-12-03 11:48 | XMS_ITS | Encounter Summary ---
:1955 Author Organization [place] Address [address] [place] [address] Care Team Providers Name Role Phone David Meneses MD Unavailable Susie Soto RN Unavailable Shara Guaman MD Unavailable [phone] Layne Nice MD Unavailable Nikki Peterson TRANSCRIBING OPERATOR HEAD GAS TECHNICIAN Unavailable [phone] Nikki Peterson APRN GAS TECHNICIAN Unavailable Reason for Visit Reason Comments Consult RETURN - Encounter Details Date Type Department Care Team Description 01/20/2018 Office Visit [facility] Pancreas and Silas Landaverde pancreatic Biliary Guru Vythia duct (Primary Dx) [address] [facility] MD [address] 4th Floor [address] [place] [id number] Social History Tobacco Use Types Packs/Day Years Used Date Smoking Tobacco: Never Smokeless Tobacco: Never Alcohol Use Standard Drinks/Week Comments Yes 5 (1 standard drink = 0.6 oz pure alcoho l) occassional Sex Assigned at Date Recorded Female 01/06/2021 11:10 AM ER RN documented as of this encounter Last Filed Vital Signs Vital Sign Reading Time Taken Comments Blood Pressure 141/90 01/20/2018 10:15 AM ER RN Pulse 80 01/20/2018 10:15 AM ER RN Temperature 37 ??C (98.6 ??F) 01/20/2018 10:15 AM ER RN Respiratory Rate - - Oxygen Saturation 97% 01/20/2018 10:15 AM ER RN Inhaled Oxygen Concentration - - Weight 57.3 kg (126 lb 6.4 oz) 01/20/2018 10:15 AM ER RN Height 162.6 cm (5' 4) 01/20/2018 10:15 AM ER RN Body Mass Index 21.7 01/20/2018 10:15 AM ER RN documented in this encounter Progress Notes Guru Danny Landaverde MD - 01/20/2018 10:00 AM CST REFERRING PHYSICIAN: Shawn Ricci MD; Shell Tabares MD. REASON FOR CONSULTATION: Dilated pancreatic duct on MRCP. HISTORY OF PRESENT ILLNESS: This is a very pleasant 62-year-old white female with a history of hypertension and asthma who is being followed for a right-sided renal mass since 2007. On her surveillance MRI they noted dilated pancreatic duct. The pancreatic duct was shown to have minimal irregular dilatation with multiple foci branch ectasia. Since she had a pound weight loss we ended up performing an endoscopic ultrasound. 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 There was some suggestion of a stricture in the neck region with a visible side branches. Overall, she had 3 out of 9 standard endosonographic features which was indeterminate for chronic noncalcific pancreatitis. She is here for followup post-procedure. She has been doing really well. She denies nausea, vomiting, abdominal pain. Her main symptom is constipation and she tries alternative medicine for the same and she has 1 bowel movement every other day and 1, occasionally 1 bowel movement every day. She denies melena, hematochezia, hematemesis. She has had a colonoscopy in 2010 and is due for a screening colonoscopy in 2020. Of note, her weight hasremained stable, and her appetite remains stable. She has an extensive history of cancer in her family, including ovarian in the mother and grandmother and colon cancer in 2 paternal uncles and she hadbeen tested for all genetic mutations and was noted to be negative for BRCA 1 and BRCA 2. She denies dysphagia or odynophagia. PAST MEDICAL HISTORY: 1. Mild persistent asthma. 2. Melanoma. 3. Hypertension. 4. Osteoarthritis. 5. Ureteral stricture and stenosis of the esophagus. 6. Obese. PAST SURGICAL HISTORY: 1. Hysterectomy. 2. EGD. FAMILY HISTORY: A family history of colon cancer in 2 paternal uncles. A family history of ovarian cancer in mother and grandmother. History of heart disease, hypertension, hyperlipidemia, coronary artery disease in father. ALLERGIES: Amoxicillin, sulfa drugs, Ultram. REVIEW OF SYSTEMS: A complete 10-point review of system was performed and noted to be negative except as above. PHYSICAL EXAMINATION: VITAL SIGNS: Blood pressure of 141/90, temperature of 98.6, heart rate of 80 per minute, weight of 57.3 kg. GENERAL: She is not in acute distress. HEAD AND NECK: No pallor, no icterus. CHEST: Lungs are clear to auscultation. CARDIOVASCULAR: S1, S2 heard, rate and rhythm are regular. ABDOMEN: Soft, nontender, nondistended. Bowel sounds are heard. NEUROLOGIC: Alert, awake, oriented to time, place and person. EXTREMITIES: No pedal edema. MRCP, MRI, which was done in 08/2017 showed minimal irregular pancreatic ductal dilation along with multifocal side branch ectasia. Findings are most prominent in the pancreatic tail region and previous noted cyst in the pancreatic body was no longer visualized. ASSESSMENT AND PLAN: This is a 62-year-old white female with past medical history significant for hypertension, mild persistent asthma who underwent an MRI for surveillance of a right-sided renal mass and was noted to have a dilated pancreatic duct and she had a 10-pound intentional weight loss. 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 She is here for a post-procedure followup and is completely asymptomatic for the past 5 months. RECOMMENDATIONS: 1. We reassured the patient that her weight has been stable and her pancreatic duct which was prominently dilated (4 mm in the region of the head) was most likely due to a diverticulum. She had visibleside branches and a possible stricture in the pancreatic neck. Altogether, she had 3 out of 02/23 standard changes of which were indeterminate for chronic pancreatitis, and given how asymptomatic she is, we will not recommend pancreatic enzymes at this point. 2. The patient is due for a colonoscopy in 2020. Would recommend patient for surveillance colonoscopy in 2020. 3. Constipation. 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 4. No further followup is needed. A total of 40 minutes were spent with more than 50% of the time in counseling. RN documented in this encounter Nursing Notes Hal Keith - 01/20/2018 10:00 AM CST Chief Complaint Patient presents with ??? Consult RETURN - Vitals: 01/20/18 1015 BP: 141/90 Pulse: 80 Temp: 98.6 ??F (37 ??C) TempSrc: Oral SpO2: 97% Weight: 126 lb 6.4 oz Height: 5' 4 Body mass index is 21.7 kg/(m^2). Hal Keith on 01/20/2018 at 10:20 AM RN documented in this encounter Plan of Treatment Not on filedocumented as of this encounter Visit Diagnoses Diagnosis Dilated pancreatic duct - Primary Other specified disease of pancreas documented in this encounter Care Teams Dinkey Mechanic Relationship Specialty Start Date End Date Nikki Peterson APRN GAS TECHNICIAN PCP - Assigned PCP 10/03/17 04/19/18 [address] [place] [address] David Meneses MD MD Urology 11/24/16 [address] [place] [address] Susie Soto, RN Registered Nurse 11/24/16 Shara Guaman MD MD Dermatology 02/16/[address] [address] Layne Nice MD MD Dermatology 05/14/17 [facility] [address] [facility] [place] [address] Nikki Peterson APRN GAS TECHNICIAN Assigned PCP 10/03/17 08/05/19 [address] [facility] [place] [id number] documented as of this encounter
--- OUTSIDE RECORDS SUMMARY | 2021-12-03 11:48 | XMS_ITS | Encounter Summary ---
:1955 Author Organization [place] Address [facility]ly [facility], later [facility] [place] [address] Care Team Providers Name Role Phone David Meneses MD Unavailable Susie Soto RN Unavailable Shara Guaman MD Unavailable [phone] Layne Nice MD Unavailable Reason for Visit Reason Comments Pre-Op Exam Surgery is on 07/29/17 Encounter Details Date Type Department Care Team Description 09/27/2017 Office Visit [facility] Nikki ePterson Preop g eneral physical exam (Primary Dx); Clinic [place] JERSON An DISH CARRIER Dilated pancreatic duct; [place] [address] [place] Screen for colon cancer [facility], [address] [place] [address] [place], [place] [phone] (Wo rk) [address] [phone] Social History Tobacco Use Types Packs/Day Years Used Date Smoking Tobacco: Never Smokeless Tobacco: Never Alcohol Use Standard Drinks/Week Comments Yes 5 (1 standard drink = 0.6 oz pure alcoho l) Sex Assigned at Date Recorded Female 01/06/2021 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 Call your surgeon if there is any change in your health. This includes signs of a cold or flu (such as a sore throat, runny nose, cough, rash or fever). ??? Do not smoke, drink alcohol or take over the counter medicine (unless your surgeon or primary care doctor tells you to) for the 24 hours before and after surgery. ??? If you take prescribed drugs: Follow your doctor???s orders about which medicines to take and which to stop until after surgery. ??? Eating and drinking prior to surgery: follow the instructions from your surgeon ??? Take a shower or bath the night before surgery. Use the soap your surgeon gave you to gently clean your skin. If you do not have soap from your surgeon, use your regular soap. Do not shave or scrubthe surgery site. Wear clean pajamas and have clean sheets on your bed. documented in this encounter Progress Notes Nikki Peterson APRN CNP - 09/27/2017 2:23 PM CDT [facility] [address] [place] [address], [address] [facility] [address] Dept: [phone] PRE-OP EVALUATION: Today's date: 09/27/2017 Megan العلي (: 1955) presents for pre-operative evaluation assessment as requestedby Dr. Landaverde. She requires evaluation and anesthesia risk assessment prior to undergoing surgery/procedure for treatment of dilated duct on pancreas . Fax number for surgical facility: Primary Physician: Shawn Ricci Type of Anesthesia Anticipated: Monitor Anesthesia Care Patient has a Health Care Directive or Living Will: YES has Preop Questions 09/27/2017 Who is doing your surgery? [facility] What are you having done? Endoscopic Ultrasound Date of Surgery/Procedure: 09-28-2017 Facility or Hospital where procedure/surgery will be performed: [facility] [address] 1. Do you have a history of Heart attack, stroke, stent, coronary bypass surgery, or other heart surgery? No 2. Do you ever have any pain or discomfort in your chest? No 3. Do you have a history of Heart Failure? No 4. Are you troubled by shortness of breath when: walking on a level surface, or up a slight hill, orat night? No 5. Do you currently have a cold, bronchitis or other respiratory infection? No 6. Do you have a cough, shortness of breath, or wheezing? No 7. Do you sometimes get pains in the calves of your legs when you walk? No 8. Do you or anyone in your family have previous history of blood clots? YES - mother did with cancer (ovarian) 9. Do you or does anyone in your family have a serious bleeding problem such as prolonged bleeding following surgeries or cuts? No 10. Have you ever had problems with anemia or been told to take iron pills? No 11. Have you had any abnormal blood loss such as black, tarry or bloody stools, or abnormal vaginal bleeding? No 12. Have you ever had a blood transfusion? No 13. Have you or any of your relatives ever had problems with anesthesia? YES - gets real nauseous, vomits 14. Do you have sleep apnea, excessive snoring or daytime drowsiness? No 15. Do you have any prosthetic heart valves? No 16. Do you have prosthetic joints? No 17. Is there any chance that you may be ? No HPI: HPI related to upcoming procedure: Persistent dilated pancreatic duct. Plan for endoscopic US/EGD for further evaluation with GI. See problem list for active medical problems. Problems all longstanding and stable, except as noted/documented. See ROS for pertinent symptoms related to these conditions. . MEDICAL HISTORY: Patient Active Problem List Diagnosis Date Noted ??? Essential hypertension 01/14/2015 Priority: Medium ??? CARDIOVASCULAR SCREENING; LDL GOAL LESS THAN 160 12/15/2009 Priority: Medium ??? Cold sore 07/12/2008 Priority: Medium ??? Mild persistent asthma 03/09/2005 Priority: Medium ??? Stricture and stenosis of esophagus 12/21/2001 Priority: Medium ??? Urethral stricture 12/21/2001 Priority: Medium Problem list name updated by automated process. Provider to review Past Medical History: Diagnosis Date ??? Essential hypertension 01/14/2015 ??? Melanoma (H) 01/2016 ??? Mild persistent asthma ??? Osteoarthritis ??? Stricture and stenosis of esophagus Dx , [place] [facility] ??? Urethral stricture unspecified Past Surgical History: Procedure Laterality Date ??? C NONSPECIFIC PROCEDURE x3 1979,1984,1994 ??? HERNIA REPAIR 2 hernia repairs ??? HYSTERECTOMY, PAP NO LONGER INDICATED 2006 ??? STENT 09/2016 kidney ??? SURGICAL PATHOLOGY EXAM 02/2016 Current Outpatient Prescriptions Medication Sig Dispense Refill ??? albuterol (VENTOLIN HFA) 108 (90 BASE) MCG/ACT Inhaler Inhale 2 puffs into the lungs every 6 hours as needed for shortness of breath / dyspnea 1 Inhaler 1 ??? Ascorbic Acid (VITAMIN C PO) Take 1,500 mg by mouth daily ??? Ascorbic Acid (VITAMIN C) 100 MG TABS Take 1,500 mg by mouth At Bedtime ??? B COMPLEX OR 1 tablet orally at bedtime ??? lisinopril (PRINIVIL/ZESTRIL) 5 MG tablet Take 1 tablet (5 mg) by mouth daily 90 tablet 3 ??? MULTI-VITAMIN OR TABS 1 TABLET DAILY at bedtime ??? Page-3 Fatty Acids (FISH OIL PO) Take 2 capsules by mouth At Bedtime ??? VITAMIN D, CHOLECALCIFEROL, PO Take 2,500 Units by mouth At Bedtime OTC products: None, except as noted above Allergies Allergen Reactions ??? Nicotiana Tabacum Other reaction(s): Breathing Difficulty ??? Amoxicillin rash ??? Cat Hair Extract ??? Cat Hair [Cats] ??? Sulfa Drugs Rash ??? Ultram [Tramadol Hcl] Headache Weirdness And sick nasuea, vomiting Latex Allergy: NO Social History Substance Use Topics ??? Smoking status: Never Smoker ??? Smokeless tobacco: Never Used ??? Alcohol use 3.0 oz/week 5 Cans of beer per week History Drug Use No REVIEW OF SYSTEMS: Constitutional, neuro, ENT, endocrine, pulmonary, cardiac, gastrointestinal, genitourinary, musculoskeletal, integument and psychiatric systems are negative, except as otherwise noted. EXAM: BP 134/76 (BP Location: Right arm, Patient Position: Sitting, Cuff Size: Adult Regular) Pulse 76 Temp 98.1 ??F (36.7 ??C) (Oral) Resp 16 Wt 127 lb (57.6 kg) LMP 03/29/2005 BMI 22.5 kg/m2 GENERAL APPEARANCE: healthy, alert and no distress EYES: EOMI, PERRL HENT: ear canals and TM's normal and nose and mouth without ulcers or lesions NECK: no adenopathy, no asymmetry, masses, or scars and thyroid normal to palpation RESP: lungs clear to auscultation - no rales, rhonchi or wheezes CV: regular rates and rhythm, normal S1 S2, no S3 or S4 and no murmur, click or rub ABDOMEN: soft, nontender, no HSM or masses and bowel sounds normal MS: extremities normal- no gross deformities noted, no evidence of inflammation in joints, FROM in all extremities. SKIN: no suspicious lesions or rashes NEURO: Normal strength and tone, sensory exam grossly normal, mentation intact and speech normal PSYCH: mentation appears normal. and affect normal/bright LYMPHATICS: No cervical adenopathy DIAGNOSTICS: EKG: Not indicated due to non-vascular surgery and low risk of event (age <65 and without cardiacrisk factors) Recent Labs Lab Test 01/28/17 1505 01/14/17 1129 11/17/16 1526 08/23/16 2139 HGB -- -- -- 13.0 -- 12.8 PLT -- -- -- 300 -- 312 NA 140 138 < > 136 -- 141 POTASSIUM 3.5 3.5 < > 2.8* < > 3.1* CR 0.74 0.64 < > 0.87 -- 0.71 < > = values in this interval not displayed. IMPRESSION: Reason for surgery/procedure: dilated pancreatic duct Diagnosis/reason for consult: preoperative evaluation The proposed surgical procedure is considered LOW risk. REVISED CARDIAC RISK INDEX The patient has the following serious cardiovascular risks for perioperative complications such as (PA, PE, VFib and 3?? AV Block): No serious cardiac risks INTERPRETATION: 0 risks: Class I (very low risk - 0.4% complication rate) The patient has the following additional risks for perioperative complications: No identified additional risks (Z01.818) Preop general physical exam (primary encounter diagnosis) Comment: Plan: (K86.89) Dilated pancreatic duct Comment: Plan: approval for surgery/procedure (Z12.11) Screen for colon cancer Comment: Plan: patient reports this is up to date; CARISSA signed for records from [facility] RECOMMENDATIONS: --Patient is to take all scheduled medications on the day of surgery EXCEPT for modifications listedbelow. CESAR Inhibitor or Angiotensin Receptor German (ARB) Use Cesar inhibitor or Angiotensin Receptor German (ARB) and should HOLD this medication for the 24 hoursprior to surgery. APPROVAL GIVEN to proceed with proposed procedure, without further diagnostic evaluation Signed Electronically by: Nikki Peterson APRN CNP Copy of this evaluation report is provided to requesting physician. Zeynep Preop Guidelines Revised Cardiac Risk Index documented in this encounter Plan of Treatment Not on filedocumented as of this encounter Visit Diagnoses Diagnosis Preop general physical exam - Primary Other specified pre-operative examinatio n Dilated pancreatic duct Other specified disease of pancreas Screen for colon cancer Special screening for malignant neoplasm s, colon documented in this encounter Care Teams Typing Secretary Relationship Specialty Start Date End Date David Meneses MD MD Urology 11/24/16 [address] [place], [place] [id number] Susie Soto, RN Registered Nurse 11/24/16 Shara Guaman MD MD Dermatology 02/16/17 420 [facility] 98 [place], [place] [address] Layne Nice MD MD Dermatology 05/14/17 [facility] [address] [place] [id number] documented as of this encounter
--- OUTSIDE RECORDS SUMMARY | 2021-12-03 11:48 | XMS_ITS | Encounter Summary ---
:1955 Author Organization [place] Address [address] [place] [address] Care Team Providers Name Role Phone David Meneses MD Unavailable Susie Soto RN Unavailable Shara Guaman MD Unavailable [phone] Layne Nice MD Unavailable Encounter Details Date Type Department Care Team Description 09/10/2017 Orders Only [facility] and Trikudanathan, Dila tion of pancreatic Biliary Guru Vythia duct (Primary Dx) 909 [facility] MD Елена [address] [place] [id number] [id number] Social History Tobacco Use Types Packs/Day Years Used Date Smoking Tobacco: Never Smokeless Tobacco: Never Alcohol Use Standard Drinks/Week Comments Yes 5 (1 standard drink = 0.6 oz pure alcoho l) Sex Assigned at Date Recorded Female 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 documented as of this encounter Plan of Treatment Not on filedocumented as of this encounter Visit Diagnoses Diagnosis Dilation of pancreatic duct - Primary Other specified disease of pancreas documented in this encounter Care Teams Pot Holder Binder Relationship Specialty Start Date End Date David Meneses MD MD Urology 11/24/16 [address] [place] [address] Susie Soto, RN Registered Nurse 11/24/16 Shara Guaman MD MD Dermatology 02/16/17 420 [facility] [address] [place] [address] Layne Nice MD MD Dermatology 05/14/17 [facility] [address] [facility] [id number] documented as of this encounter
--- OUTSIDE RECORDS SUMMARY | 2021-12-03 11:48 | XMS_ITS | Encounter Summary ---
:1955 Author Organization [place] Address [address] [place] [address] Care Team Providers Name Role Phone David Meneses MD Unavailable Susie Soto RN Unavailable Shara Guaman MD Unavailable [phone] Layne Nice MD Unavailable Reason for Visit Auth/Cert Specialty Diagnoses / Procedures Referred By Contact Refer red To Contact Gastroenterology Diagnoses Dilation of pancreatic duct [facility] End[facility] Procedures COMBINED ENDOSCOPIC ULTRASOUND, ESOPHAGOSCOPY, GASTROSCOPY, DUODENOSCOPY (EGD) [address] [place] [address] Phone: Referral ID Status Reason Start Date Expiration Date Visits Requ ested Visits Authorized [id number] 1 1 Encounter Details Date Type Department Care Team Description 09/28/2017 Anesthesia Event [facility] Carlyle Peñaloza MD 420 [facility] [address] [place] [address] Endoscopy Ban Marin APRN CRNA 420 [facility] [address] [place] [address] [address] [place] [address] Anesthesia Record Procedure Summary Procedure Name Responsible Anesthesia Start Time Anesthesia Stop Time Anesthesiologist EUS (Esophagus) Rodney Peñaloza MD 09/28/17 0955 09/28/17 1 034 Events Date Time Event Comment 09/28/2017 0955 An Start 1000 An Start Data 1007 AN INCISION 1031 MD Present 1034 an stop data 1034 An Stop Electronically s igned by Ban Marin on September 28, 2017 10:34 AM Name Total midazolam 1mg/mL 2 mg fentaNYL (SUBLIMAZE) injection 50 mcg propofol (DIPRIVAN) injection 10 mg/mL vial 120.72 mg benzocaine (HURRICAINE/TOPEX) spray 20% 1 spray LR 300 mL Agents Name NO HELIOX O2 N2O Air Exp Sevoflurane Exp Isoflurane Exp Desflurane Exp N2O O2 Delivery Device Ins Sevoflurane Ins Isoflurane Ins Desflurane O2 Auxiliary Blood No blood administrations on file. 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 Anesthesia Type: MAC Note: Anesthesia Post Evaluation Patient location during evaluation: PACU Patient participation: Able to fully participate in evaluation Level of consciousness: awake Pain management: adequate Airway patency: patent Cardiovascular status: acceptable Respiratory status: acceptable Hydration status: acceptable PONV: none Anesthetic complications: None Last vitals: Vitals: 09/28/17 1042 09/28/17 1044 09/28/17 1045 BP: Pulse: Resp: Temp: SpO2: 98% 99% 98% Electronically Signed By: Rodney Peñaloza MD September 28, 2017 10:58 AM Anesthesia Preprocedure Evaluation - Rodney Peñaloza MD - 09/28/2017 9:53 AM CDT Anesthesia Evaluation Anesthesia Plan History & Physical Review History and physical reviewed and following examination; no interval change. ASA Status: 3 . NPO Status: > 6 hours Plan for MAC with Intravenous induction. Maintenance will be TIVA. Reason for MAC: Difficulty with conscious sedation (QS) Postoperative Care Consents Anesthetic plan, risks, benefits and alternatives discussed with: Patient.. ANESTHESIA PREOP EVALUATION NPO Status: yES, NPO Procedure: Procedure(s): EUS - Wound Class: II-Clean Contaminated HPI: Presents for EUS. PMHx/PSHx/ROS: PAST MEDICAL HISTORY: Past Medical History: Diagnosis Date ??? Essential hypertension 01/14/2015 ??? Melanoma (H) 01/2016 ??? Mild persistent asthma ??? Osteoarthritis ??? Stricture and stenosis of esophagus Dx , [place] [facility] ??? Urethral stricture unspecified PAST SURGICAL HISTORY: Past Surgical History: Procedure Laterality Date ??? C NONSPECIFIC PROCEDURE x3 1979,1985,1995 ??? HERNIA REPAIR 2 hernia repairs ??? HYSTERECTOMY, PAP NO LONGER INDICATED 2006 ??? STENT 09/2016 kidney ??? SURGICAL PATHOLOGY EXAM 02/2016 FAMILY HISTORY: Family History Problem Relation Age of Onset ??? Cancer Mother ovarian cancer ??? HEART DISEASE Father heart attacks with bypass ??? Hypertension Father ??? Lipids Father ??? C.A.D. Father ??? Cancer Maternal Grandmother breast cancer ??? C.A.D. Paternal Grandfather ??? Cancer Paternal Aunt cervicle cancer ??? Cancer Paternal Aunt uterin cancer ??? Diabetes Paternal Aunt ??? Hypertension Brother ??? Cancer Son testicular Past Anes Hx: No personal or family h/o anesthesia problems Soc Hx: Tobacco: EtOH: Allergies: Allergies Allergen Reactions ??? Nicotiana Tabacum Other reaction(s): Breathing Difficulty ??? Amoxicillin rash ??? Cat Hair Extract ??? Cat Hair [Cats] ??? Sulfa Drugs Rash ??? Ultram [Tramadol Hcl] Headache Weirdness And sick nasuea, vomiting Meds: Prescriptions Prior to Admission Medication Sig Dispense Refill Last Dose ??? albuterol (VENTOLIN HFA) 108 (90 BASE) MCG/ACT Inhaler Inhale 2 puffs into the lungs every 6 hours as needed for shortness of breath / dyspnea 1 Inhaler 1 Past Month ??? Ascorbic Acid (VITAMIN C PO) Take 1,500 mg by mouth daily 09/27/2017 ??? Ascorbic Acid (VITAMIN C) 100 MG TABS Take 1,500 mg by mouth At Bedtime 09/27/2017 ??? B COMPLEX OR 1 tablet orally at bedtime 09/27/2017 ??? lisinopril (PRINIVIL/ZESTRIL) 5 MG tablet Take 1 tablet (5 mg) by mouth daily 90 tablet 3 09/27/2017 ??? MULTI-VITAMIN OR TABS 1 TABLET DAILY at bedtime 09/27/2017 ??? [place]-3 Fatty Acids (FISH OIL PO) Take 2 capsules by mouth At Bedtime 09/27/2017 ??? VITAMIN D, CHOLECALCIFEROL, PO Take 2,500 Units by mouth At Bedtime 09/27/2017 No current outpatient prescriptions on file. Physical Exam: VS: T 97.6, P Data Unavailable, BP 167/100, R 20, SpO2 100% Weight Wt Readings from Last 2 Encounters: 09/28/17 57.9 kg (127 lb 11.2 oz) 09/27/17 57.6 kg (127 lb) Airway: MP 2, TM>3FB, Neck full ROM Dentition: no loose teeth Heart: RRR Lungs: CTAB BMP: Lab Results Component Value Date NA 140 01/28/2017 Lab Results Component Value Date POTASSIUM 3.5 01/28/2017 Lab Results Component Value Date CHLORIDE 105 01/28/2017 Lab Results Component Value Date EDMOND 8.8 01/28/2017 Lab Results Component Value Date CO2 28 01/28/2017 Lab Results Component Value Date BUN 10 01/28/2017 Lab Results Component Value Date CR 0.74 01/28/2017 Lab Results Component Value Date GLC 92 01/28/2017 CBC: Lab Results Component Value Date WBC 6.9 11/17/2016 Lab Results Component Value Date HGB 13.0 11/17/2016 Lab Results Component Value Date HCT 39.2 11/17/2016 Lab Results Component Value Date PLT 300 11/17/2016 Coags/Type and Screen No results found for: INR No results found for: PT Type and Screen: Assessment/Plan: - ASA 3 - MAC with standard ASA monitors, IV induction, balanced anesthetic - PIV - Antibiotics per surgery - PONV prophylaxis - Blood products available, possible administration discussed with patient Rodney Peñaloza MD 09/28/2017 9:54 AM documented in this encounter Miscellaneous Notes Anesthesia Care Transfer Note - Ban Marin APRN CRNA - 09/28/2017 10:34 AM CDT Patient: Megan العلي Procedure(s): EUS - Wound Class: II-Clean Contaminated Diagnosis: Dilation of pancreatic duct Diagnosis Additional Information: No value filed. Anesthesia Type: MAC Note: Airway :Nasal Cannula Patient transferred to:Phase II Handoff Report: Identifed the Patient, Identified the Reponsible Provider, Reviewed the pertinent medical history, Discussed the surgical course, Reviewed Intra-OP anesthesia mangement and issues during anesthesia, Set expectations for post-procedure period and Allowed opportunity for questions and acknowledgement of understanding Vitals: (Last set prior to Anesthesia Care Transfer) SECRET CODE EXPERT VITALS 09/28/2017 1004 - 09/28/2017 1034 09/28/2017 SpO2: 100 % EKG: NSR Electronically Signed By: Ban Marin APRN CRNA September 28, 2017 10:34 AM documented in this encounter Plan of Treatment Not on filedocumented as of this encounter Visit Diagnoses Not on filedocumented in this encounter Administered Medications Inactive Administered Medications - up to 3 most recent administrations Medication Order MAR Action Action Date Dose Rate Site benzocaine 20% Given 09/28/2017 10:00 AM CDT 1 spray (HURRICAINE/TOPEX) 20 % spray PRN, moderate pain, Starting on Wed09/28/17 at 1000, Anesthesia Intra-op fentaNYL (PF) (SUBLIMAZE) injection Given 09/28/2017 10:03 AM CDT 50 mcg Intravenous, PRN, moderate to severe pain, Administer over 3-5 Minutes, Starting on Wed09/28/17 at 1003, Anesthesia Intra-op lactated ringers infusion New Bag 09/28/2017 9:55 AM CDT Intravenous, CONTINUOUS PRN, Anesthesia Intra-op, Starting on Wed09/28/17 at 0955, Until Wed09/28/17 at 1034 midazolam (VERSED) injection Given 09/28/2017 10:00 AM CDT 2 mg Intravenous, Administer over 2 Minutes, PRN, anxiety, Starting on Wed09/28/17 at 1000, Anesthesia Intra-op propofol (DIPRIVAN) Rate/Dose Change 09/28/2017 10:15 125 mcg/kg/min 43.4 mL/hr injection 10 mg/mL vial AM CDT Intravenous, CONTINUOUS PRN, Starting on Wed09/28/17 at 1002, Anesthesia Intra-op Rate/Dose Change 09/28/2017 10:11 AM CDT 90 mcg/kg/min 31.3 mL/hr Rate/Dose Change 09/28/2017 10:06 AM CDT 70 mcg/kg/min 24.3 mL/hr documented in this encounter Care Teams Kiln Car Repairer Relationship Specialty Start Date End Date David Meneses MD MD Urology 11/24/16 [address] [place], [place] [address] Susie Soto, RN Registered Nurse 11/24/16 Shara Guaman MD MD Dermatology 02/16/17 420 [facility] [address] [place], [place] [id number] Layne Nice MD MD Dermatology 05/14/17 [facility] [address] [place] [place] [address] documented as of this encounter
--- OUTSIDE RECORDS SUMMARY | 2021-12-03 11:48 | XMS_ITS | Encounter Summary ---
:1955 Author Organization [place] Address [address] [place] [address] Care Team Providers Name Role Phone David Meneses MD Unavailable Susie Soto RN Unavailable Shara Guaman MD Unavailable [phone] Layne Nice MD Unavailable Reason for Visit Reason Onset Date Comments Pt. 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
--- OUTSIDE RECORDS SUMMARY | 2021-12-03 11:49 | XMS_ITS | Encounter Summary ---
:1955 Author Organization [place] Address [facility] [place] [address] Care Team Providers Name Role Phone David Meneses MD Unavailable Susie Soto RN Unavailable Shara Guaman MD Unavailable [phone] Reason for Visit Reason Comments Clinic Care Coordination - Follow-up Encounter Details Date Type Department Care Team Description 05/07/2017 Care Coordination [facility] Jerri Titus [facility] ANTONIA Purdy Coordination - [place] [phone] Follow-up 9 [facility] (Work) [place] [address] Social History Tobacco Use Types Packs/Day Years Used Date Smoking Tobacco: Never Smokeless Tobacco: Never Alcohol Use Standard Drinks/Week Comments Yes 5 (1 standard drink = 0.6 oz pure alcoho l) Sex Assigned at Date Recorded Female 01/06/2021 11:10 AM BRICK BURNER documented as of this encounter Progress Notes Rajwinder Titus, ANTONIA - 05/10/2017 9:48 AM CDT Left second message for patient to call back. Rajwinder Titus RN Rajwinder Titus, ANTONIA - 05/07/2017 2:33 PM CDT Left voicemail for patient to call back (follow up BP). Rajwinder Titus, RN documented in this encounter Plan of Treatment Not on filedocumented as of this encounter Visit Diagnoses Not on filedocumented in this encounter Care Teams Program Therapist Relationship Specialty Start Date End Date David Meneses MD MD Urology 11/24/16 [address] [place], [place] [address] Susie Soto, ANTONIA Registered Nurse 11/24/16 Shara Guaman MD MD Dermatology 02/16/17 420 [facility] 98 [place], [place] [address] documented as of this encounter
--- OUTSIDE RECORDS SUMMARY | 2021-12-03 11:49 | XMS_ITS | Encounter Summary ---
:1955 Author Organization [place] Address [facility] [place] [address] Care Team Providers Name Role Phone David Meneses MD Unavailable Susie Soto RN Unavailable Shara Guaman MD Unavailable [phone] Reason for Visit Reason Comments Clinic Care Coordination - Follow-up Encounter Details Date Type Department Care Team Description 03/10/2017 Care Coordination [facility] Jerri Titus Nephrology [facility] ANTONIA Purdy Coordination - [place] [phone] Follow-up 9 [facility] (Work) [place] [address] Social History Tobacco Use Types Packs/Day Years Used Date Smoking Tobacco: Never Smokeless Tobacco: Never Alcohol Use Standard Drinks/Week Comments Yes 5 (1 standard drink = 0.6 oz pure alcoho l) Sex Assigned at Date Recorded Female 01/06/2021 11:10 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 Hasn't been checking BP at home, but will start. Her BP in the clinic last week was 141/90, said she was a little anxious at the time. Feels great without symptoms at this time. Will check in with her again in another couple of weeks. Rajwinder Titus, RN PLATE PLYWOOD PRESS LABORER documented in this encounter Plan of Treatment Not on filedocumented as of this encounter Visit Diagnoses Not on filedocumented in this encounter Care Teams Clinical Phlebotomist Relationship Specialty Start Date End Date David Meneses MD MD Urology 11/24/16 [address] [place], [place] [id number] Susie Soto, ANTONIA Registered Nurse 11/24/16 Shara Guaman MD MD Dermatology 02/16/17 420 [facility] 98 [place], [place] [address] documented as of this encounter
--- OUTSIDE RECORDS SUMMARY | 2021-12-03 11:49 | XMS_ITS | Encounter Summary ---
:1955 Author Organization [place] Address [address] [place] [address] Care Team Providers Name Role Phone David Meneses MD Unavailable Susie Soto RN Unavailable Shara Guaman MD Unavailable [phone] Reason for Visit Diagnostic Imaging Mammo - Closed Specialty Diagnoses / Procedures Referred By Contact Refer red To Contact Diagnoses Visit for screening mammogram Jennifer Conde Procedures MA Screen Bilateral w/Kristian Giles MD 420 [facility] 7[address] [place] [address] Referral ID Status Reason Start Date Expiration Date Visits Requ ested Visits Authorized [id number] Closed 03/05/2017 03/05/2018 1 1 Encounter Details Date Type Department Care Team Description 03/05/2017 Radiant Appointment [facility] [place] Visit for screening Center Imaging Jennifer Burton mammogram 9[address] [facility] MD Tisha , [address] [place] [address] Social History Tobacco Use Types Packs/Day Years Used Date Smoking Tobacco: Never Smokeless Tobacco: Never Alcohol Use Standard Drinks/Week Comments Yes 5 (1 standard drink = 0.6 oz pure alcoho l) Sex Assigned at Date Recorded Female 01/06/2021 11:10 AM SENIOR SOFTWARE SYSTEMS ENGINEER documented as of this encounter Plan of Treatment Not on filedocumented as of this encounter Procedures Procedure Name Priority Date/Time Associated Diagnosis Comme nts MA SCREENING Routine 03/05/2017 10:20 AM Visit for screening R esults for this BILATERAL W/ KRISTIAN SENIOR SOFTWARE SYSTEMS ENGINEER mammogram procedure are in the results section. documented in this encounter Results MA Screen Bilateral w/Kristian (03/05/2017 10:20 AM SENIOR SOFTWARE SYSTEMS ENGINEER) Anatomical Region Laterality Modality Breast Bilateral Mammography Specimen (Source) Anatomical Location Collection Method / Collectio n Time Received Time / Laterality Volume Impressions 03/15/2017 9:48 AM SENIOR SOFTWARE SYSTEMS ENGINEER IMPRESSION: BI-RADS CATEGORY: 1 - ??NEGATIVE. RECOMMENDED FOLLOW-UP: Annual Mammograph y. The patient will be notified of the resu lts. I have personally reviewed the examinati on and initial interpretation and I agree with the findings. JAY HUYNH MD Narrative 03/15/2017 9:48 AM SENIOR SOFTWARE SYSTEMS ENGINEER EXAM: Bilateral digital screening mammography with computer aided detection and with tomosynthesis TECHNIQUE: Tomosynthesis History: No symptoms, routine screening. Close relatives diagnosed with breast cancer at less than 50 years of age. History of relative diagnosed with ovarian cancer. Previousl y undergone genetic testing. Comparison: Mammogram dated 03/16/2007, , and 12/20/2003. BREAST DENSITY: Scattered fibroglandular densities. Findings: : No significant change. Procedure Note Jay Huynh MD - 2017 EXAM: Bilateral digital screening mammog archana with computer aided detection and with tomosynthesis TECHNIQUE: Tomosynthesis History: No symptoms, routine screening. Close relatives diagnosed with breast cancer at less than 50 years of age. History of relative diagnosed with ovarian cancer. Previousl y undergone genetic testing. Comparison: Mammogram dated 03/16/2007, , and 12/20/2003. BREAST DENSITY: Scattered fibroglandular densities. Findings: : No significant change. IMPRESSION: BI-RADS CATEGORY: 1 - NEGATI VE. RECOMMENDED FOLLOW-UP: Annual Mammograph y. The patient will be notified of the resu lts. I have personally reviewed the examinati on and initial interpretation and I agree with the findings. JAYSHAGUFTA HUYNH MD Jennifer Burton MD IMG MAMMOGRAPHY ORDERABL ES documented in this encounter Visit Diagnoses Diagnosis Visit for screening mammogram Other screening mammogram documented in this encounter Care Teams Spout Liner Relationship Specialty Start Date End Date David Meneses MD MD Urology 11/24/16 [address] [place] [address] Susie Soto, RN Registered Nurse 11/24/16 Shara Guaman MD MD Dermatology 02/16/17 420 [facility] [address] [place] [address] documented as of this encounter
--- OUTSIDE RECORDS SUMMARY | 2021-12-03 11:49 | XMS_ITS | Encounter Summary ---
:1955 Author Organization [place] Address [facility] [place] [address] Care Team Providers Name Role Phone Carmen Aleman NP Primary Care Provider David Meneses MD Unavailable Susie Soto RN Unavailable Reason for Visit Reason Onset Date Comments Medication Question 01/01/2017 Encounter Details Date Type Department Care Team Description [facility]/01[facility]2017 [facility] [address] [place], [place] [address] [phone] Social History Tobacco Use Types Packs/Day Years Used Date Smoking Tobacco: Never Smokeless Tobacco: Never Alcohol Use Standard Drinks/Week Comments Yes 0 (1 standard drink = 0.6 oz pure alcoho l) 2-3 times a week Sex Assigned at Date Recorded Female 01/06/2021 11:10 AM PRE PRESS OPERATOR documented as of this encounter Miscellaneous Notes Telephone Encounter - Rajwinder Titus RN - 01/01/2017 1:[address] Lang: She was on hctz and can go back on that. Can also start amlodipine 5 and go up to 10 if needed. Let's do 12.5 thanks Spoke with patient, who verbalized understanding. Rx sent. Rajwinder Titus RN PRESS OPERATOR Telephone Encounter - Rajwinder Titus RN - 01/01/2017 10:56 AM CST Patient left a voicemail to discuss BP concerns. She had stopped lisinopril on Wednesday due to side effects (stiffness, muscle aches). When she was seen in urology today, BP was 175/79. Feels a little lightheaded. Has ongoing shortness of breath with exertion, which may be asthma related. Her PCP advised following up with nephrology or going to an urgent care. Patient requesting recommendations. Message sent to Dr. Talavera and Dr. Lang for recommendations. Rajwinder Titus RN PRESS OPERATOR documented in this encounter Plan of Treatment Not on filedocumented as of this encounter Visit Diagnoses Diagnosis Essential hypertension - Primary Unspecified essential hypertension documented in this encounter Care Teams National Opelint Analyst Relationship Specialty Start Date End Date Carmen Aleman NP PCP - General Nurse Practitioner - Family 08/25/1612/17 David Meneses MD Urology 11/24/[address] [place] [address] Susie Soto RN Registered Nurse 11/24/16 documented as of this encounter
--- OUTSIDE RECORDS SUMMARY | 2021-12-03 11:49 | XMS_ITS | Encounter Summary ---
:1955 Author Organization [facility] Address [address] [place] [address] Care Team Providers Name Role Phone David Meneses MD Unavailable Susie Soto RN Unavailable Shara Guaman MD Unavailable [phone] Encounter Details Date Type Department Care Team Description 04/15/2017 [facility] Shawn Steele MD [id number] [place] [address] [phone] Social History Tobacco Use Types Packs/Day Years Used Date Smoking Tobacco: Never Smokeless Tobacco: Never Alcohol Use Standard Drinks/Week Comments Yes 5 (1 standard drink = 0.6 oz pure alcoho l) Sex Assigned at Date Recorded Female 01/06/2021 11:10 AM TEXT TRANSCRIBER documented as of this encounter Miscellaneous Notes Telephone Encounter - Joyce Merrill RN - 04/15/2017 11:28 AM CST Influenza-Like Illness (YODIT) Protocol Megan Loja Bj العلي Age: [age] year old Date of : 1955 Are you currently sick or have you had close contact with someone who is currently sick? Yes, this patient is currently sick. Adult Clinical Evaluation Is this patient experiencing ANY of the following? Unconsciousness or unresponsiveness No Difficulty breathing or swallowing No Blue or dusky lips, skin, or nail beds No Chest pain No Severe confusion or delirium No Seizure activity: ongoing or stopped No Severe dehydration or signs of shock No Patient sounds very sick on the phone No Is this patient experiencing ANY of the following? Fever > 104 or shaking chills No Wheezing with minimal response to usual wheezing medications or new wheezing No Repeated vomiting or diarrhea with signs of dehydration (no urination within last 12 hours) No Flu-like symptoms that initially improved but returned with fever and a worse cough No Stiff or painful neck No Severe headache No Does the patient have any of the following? Measured fever > 100 degrees Feels feverish Chills or feels very warm to the touch Yes Cough Yes - productive - green mucus Sore throat No Muscle/ body aches Yes Headaches Yes Fatigue (tiredness) Yes Nursing Plan Below are conditions which place adults at increased risk for the more severe complications of influenza. Does this patient have ANY of the following conditions? Chronic pulmonary disease such as asthma or COPD Yes Heart disease (CHF, CAD, anticoag due to arrhythmia) No Liver disease (hepatitis, liver failure, cirrhosis) No Kidney disease (renal failure, insufficiency or dialysis) No Metabolic disorder (e.g. diabetes) No Neuromuscular disorder (HI JOHNSON MD, myasthenia gravis) No Compromised ability to handle respiratory secretions No Hematologic disorder (e.g. sickle cell disease) No HIV / AIDS No Chemotherapy or radiation within the last 3 months No Received an organ or a bone marrow transplant No Taking Prednisone in excess of 20mg daily No Is age 65 years or older No Is , thinks she may be or is within two weeks after delivery No Is a resident of a chronic care facility No Is patient or Alaskan mcgrath No Patient falls into high risk category. YODIT symptom onset less than 48 hours. Allergies Allergen Reactions ??? Nicotiana Tabacum Other reaction(s): Breathing Difficulty ??? Amoxicillin rash ??? Cat Hair Extract ??? Cat Hair [Cats] ??? No Clinical Screening - See Comments PN: LW Other1: -CATS ??? Sulfa Drugs Rash ??? Tramadol Other reaction(s): Nausea Headache Weirdness And sick nasuea, vomiting ??? Ultram [Tramadol Hcl] Headache Weirdness And sick nasuea, vomiting Does this patient have an allergy or hypersensitivity to Oseltamivir (Tamiflu)? No. Patient Active Problem List Diagnosis ??? Stricture and stenosis of esophagus ??? Urethral stricture ??? Mild persistent asthma ??? Cold sore ??? CARDIOVASCULAR SCREENING; LDL GOAL LESS THAN 160 ??? Essential hypertension Last recorded GFR on this patient: GFR Estimate Date Value Ref Range Status 01/28/2017 80 >60 mL/min/1.7m2 Final Comment: Non GFR Calc GFR Estimate If Black Date Value Ref Range Status 01/28/2017 >90 >60 mL/min/1.7m2 Final Comment: GFR Calc Sex: female Wt Readings from Last 1 Encounters: 03/05/17 137 lb 6.4 oz (62.3 kg) Age: [age] year old Creatinine Date Value Ref Range Status 01/28/2017 0.74 0.52 - 1.04 mg/dL Final Creatinine Clearance Calculator Does this patient currently have kidney disease? (defined as Chronic Kidney Disease Stage 3,4 or 5 on the problem list or a GFR less than 60 ml/min if known) No - Tamiflu (oseltamivir): 75 mg BID x 5 days If further questions/concerns or if new symptoms develop, call your PCP or [facility] as soon as possible. ?? Provided home care instructions General home care instruction: ?? Avoid contact with people in your household who are at increased risk for more severe complications of influenza (such as women or people who have a chronic health condition, for example diabetes, heart disease, asthma, or emphysema). ?? Stay home from work, school, childcare or other public places until your fever (37.8 degrees Celsius [100 degrees Fahrenheit]) has been gone for at least 24 hours, except to seek medical care. (Fever should be gone without the use of fever-reducing medications.) Use a surgical mask if available, orcover your mouth and nose with a tissue if possible if you need to seek medical care. Contact your work place, school, or daycare as they may have longer exclusion times. ?? You may continue to shed virus after your fever is gone. Limit your contact with high-risk individuals for 10 days after your symptoms started and be especially careful to cover your coughs/sneezes and wash your hands. ?? Cover your cough and wash your hands often, and especially after coughing, sneezing, blowing yournose. ?? Drink plenty of fluids (such as water, broth, sports drinks, electrolyte beverages for children) to prevent dehydration. ?? Avoid tobacco and second hand smoke. ?? Get plenty of rest. ?? Use [id number] pain relievers as needed per cap maker instructions. ?? Do not give aspirin (acetylsalicylic acid) or products that contain aspirin (e.g. bismuth subsalicylate - Pepto Bismol) to children or teenagers 18 years or younger. ?? A small number of people with influenza do not have fever. If you have respiratory symptoms and are at increased risk for complications of influenza, contact your health care provider to discuss these symptoms. For parents of infants: ?? If possible, only family members who are not sick should care for infants. ?? Wash your hands with soap and water, or an alcohol-based hand rub (if your hands are not visibly soiled) before caring for your . ?? Cover your mouth and nose with a tissue when coughing or sneezing, and clean your hands. Contact a health care provider to discuss your illness within 1-2 days if you are ? Immunocompromised Call 911 if you experience: ?? Difficulty breathing or shortness of breath ?? Pain or pressure in the chest ?? Confusion or less responsive than normal ?? Seizure activity: ongoing or stopped ?? Severe dehydration or signs of shock ?? Blue or dusky lips, skin, or nail beds If further questions/concerns or if new symptoms develop, call your PCP or [facility] as soon as possible. When to seek medical attention Contact your health care provider right away if you experience: ?? A painful sore throat accompanied by fever persists for more than 48 hours ?? Ear pain, sinus pain, persistent vomiting and/or diarrhea ?? Oral temperature greater than 104?? Fahrenheit (40?? Celsius) ?? Dehydration (e.g., mouth feeling dry, dizzy when sitting/standing, decreased urine output) ?? Severe or persistent vomiting; unable to keep fluids down ?? Improvement in flu-like symptoms (fever and cough or sore throat) but then return of fever and worse cough or sore throat ?? Not drinking enough fluid ?? Any other concerns not stated above Additional educational resources include: ?? http://www.[employer].com ?? http://www.cdc.gov/flu/ Jocye Merrill TRANSCRIBER documented in this encounter Plan of Treatment Not on filedocumented as of this encounter Visit Diagnoses Diagnosis Influenza-like illness - Primary Influenza with other respiratory manifes tations documented in this encounter Care Teams Test Development Engineer Relationship Specialty Start Date End Date David Meneses MD MD Urology 11/24/16 [address] [place] [address] Susie Soto, RN Registered Nurse 11/24/16 Shara Guaman MD MD Dermatology 02/16/17 420 [facility] 98 [place], [place] [address] documented as of this encounter
--- OUTSIDE RECORDS SUMMARY | 2021-12-03 11:49 | XMS_ITS | Encounter Summary ---
:1955 Author Organization [place] Address [facility] [place] [address] Care Team Providers Name Role Phone David Meneses MD Unavailable Susie Soto RN Unavailable Shara Guaman MD Unavailable [phone] Reason for Visit Reason Onset Date Comments Pre Visit Planning - Done 03/02/2017 Renal mass fol low up. Discuss MRI results. Records available in Somewhere. Encounter Details Date Type Department Care Team Description 03/02/2017 PRE VISIT [facility] Urology and David Meneses Pre Visit Planning - Inst for Prostate and MD Rik Done (Renal mass follow Urologic Cancers 909 [facility] up. Discuss MRI 909 [place], [place] results. 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 Discuss MRI results. Records available in Somewhere. L SETTING MACHINE OPERATOR documented in this encounter Plan of Treatment Not on filedocumented as of this encounter Visit Diagnoses Not on filedocumented in this encounter Care Teams Superintendent Commissary Relationship Specialty Start Date End Date David Meneses MD MD Urology 11/24/16 [address] [place] [address] Susie Soto, RN Registered Nurse 11/24/16 Shara Guaman MD MD Dermatology 02/16/17 420 [facility] 98 [place], [place] [id number] documented as of this encounter
--- OUTSIDE RECORDS SUMMARY | 2021-12-03 11:49 | XMS_ITS | Encounter Summary ---
:1955 Author Organization [place] Address [address] [place] [address] Care Team Providers Name Role Phone David Meneses MD Unavailable Susie Soto RN Unavailable Shara Guaman MD Unavailable [phone] Layne Nice MD Unavailable Encounter Details Date Type Department Care Team Description 09/01/2017 Radiant Appointment Health Imaging [facility] MRI Jennifer Giles MD [address] [address] Social History Tobacco Use Types Packs/Day Years Used Date Smoking Tobacco: Never Smokeless Tobacco: Never Alcohol Use Standard Drinks/Week Comments Yes 5 (1 standard drink = 0.6 oz pure alcoho l) Sex Assigned at Date Recorded Female 01/06/2021 11:10 AM CHIEF SUPPLY 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 documented in this encounter Results MRI Abdomen MRCP w/o & w contrast (09/01/2017 8:46 AM CDT) Anatomical Region Laterality Modality Abdomen/Pelvis, SUBRAD MR BODY, UMP MR BODY, RAD MR Magnetic Resonance Specimen (Source) Anatomical Location Collection Method / Collectio n Time Received Time / Laterality Volume Impressions 09/01/2017 9:50 AM CDT IMPRESSION: Minimal irregular pancreatic ductal dilatation, along with multifocal side branch ectasia. These fi ndings are most prominent in the pancreatic tail region, and would be in keeping with early mild chronic pancreatitis. Previously noted cyst in the pancreatic body is no longer visualized, likely represented a sidebranch dilatati on. I have personally reviewed the examinati on and initial interpretation and I agree with the findings. RUBIA HYATT MD Narrative 09/01/2017 9:50 AM CDT MRI ABDOMEN CLINICAL HISTORY: ??2mm side duct cyst/I PMN noted on MRI, rec 6-12 mo follow up with [facility]/MRCP; Pancreas cyst TECHNIQUE: ??Images were acquired with a nd without intravenous contrast through the abdomen. The following MR im ages were acquired: TrueFISP, multiplanar T2 weighted, axial T1 in/out of phase, axial fat-saturated T1, diffusion-weighted. Multiplanar T1-w eighted images with fat saturation were before contrast administ ration and at multiple time points following the administration of i ntravenous contrast. Contrast dose: 7.5mL Gadavist FINDINGS: Comparison study: 01/08/2017 MRCP: Borderline size of the pancreatic duct in the body measuring 4 mm. Ductal side branch visualization in the pancreatic tail. Slight irregularity of the pancreatic duct in t he distal body/proximal tail. No biliary dilatation. Liver: Hepatic cysts. Gallbladder: No gallstones Spleen: Normal Kidneys: Right lower pole exophytic simp le cyst, benign. Punctate cyst right upper pole. Adrenal glands: Normal Pancreas: Maintained T1 hyperintensity o f the pancreas. Normal enhancement. Bowel: No dilatation. There is a small d iverticulum arising from third part of the duodenum. Lymph nodes: No lymphadenopathy Blood vessels: Normal Lung bases: Unremarkable Bones and soft tissues: Normal Mesentery and abdominal wall: Normal Ascites: None Procedure Note Rubia Hyatt MD - 09/01/2017 MRI ABDOMEN CLINICAL HISTORY: 2mm side duct cyst/IPM N noted on MRI, rec 6-12 mo follow up with [facility]/MRCP; Pancreas cyst TECHNIQUE: Images were acquired with and without intravenous contrast through the abdomen. The following MR im ages were acquired: TrueFISP, multiplanar T2 weighted, axial T1 in/out of phase, axial fat-saturated T1, diffusion-weighted. Multiplanar T1-w eighted images with fat saturation were before contrast administ ration and at multiple time points following the administration of i ntravenous contrast. Contrast dose: 7.5mL Gadavist FINDINGS: Comparison study: 01/08/2017 MRCP: Borderline size of the pancreatic duct in the body measuring 4 mm. Ductal side branch visualization in the pancreatic tail. Slight irregularity of the pancreatic duct in t he distal body/proximal tail. No biliary dilatation. Liver: Hepatic cysts. Gallbladder: No gallstones Spleen: Normal Kidneys: Right lower pole exophytic simp le cyst, benign. Punctate cyst right upper pole. Adrenal glands: Normal Pancreas: Maintained T1 hyperintensity o f the pancreas. Normal enhancement. Bowel: No dilatation. There is a small d iverticulum arising from third part of the duodenum. Lymph nodes: No lymphadenopathy Blood vessels: Normal Lung bases: Unremarkable Bones and soft tissues: Normal Mesentery and abdominal wall: Normal Ascites: None IMPRESSION: Minimal irregular pancreatic ductal dilatation, along with multifocal side branch ectasia. These fi ndings are most prominent in the pancreatic tail region, and would be in keeping with early mild chronic pancreatitis. Previously noted cyst in the pancreatic body is no longer visualized, likely represented a sidebranch dilatati on. I have personally reviewed the examinati on and initial interpretation and I agree with the findings. RUBIA HYATT MD Jennifer Burton MD IMG MRI ORDERABLES documented in this encounter Visit Diagnoses Diagnosis Pancreas cyst Cyst and pseudocyst of pancreas documented in this encounter Administered Medications Inactive Administered Medications - up to 3 most recent administrations Medication Order MAR Action Action Date Dose Rate Site gadobutrol (GADAVIST) injection Given 09/01/2017 7:36 AM CDT 7.5 mLs 7.5 mL 7.5 mL, Intravenous, ONCE, On Wed09/01/17 at 0745, For 1 dose documented in this encounter Care Teams Mowing Machine Operator Relationship Specialty Start Date End Date David Meneses MD MD Urology 11/24/16 [address] [place] [address] Susie Soto, RN Registered Nurse 11/24/16 Shara Guaman MD MD Dermatology 02/16/17 [address] [facility] [address] [place], [place] [address] Layne Nice MD MD Dermatology 05/14/17 [facility] [address] [place] [address] documented as of this encounter
--- OUTSIDE RECORDS SUMMARY | 2021-12-03 11:49 | XMS_ITS | Encounter Summary ---
:1955 Author Organization [facility] Address [address] [place] [address] Care Team Providers Name Role Phone Carmen Aleman NP Primary Care Provider David Meneses MD Unavailable Susie Soto RN Unavailable Reason for Visit Reason Comments Consult New patient consult for starla l cyst. Consultation - Closed Specialty Diagnoses / Procedures Referred By Contact Refer red To Contact Diagnoses Acquired cyst of kidney Tanja Gipson MD [address] [address] Referral ID Status Reason Start Date Expiration Date Visits Requ ested Visits Authorized [id number] Closed 11/17/2016 11/17/2017 1 1 Encounter Details Date Type Department Care Team Description 01/01/2017 Office Visit [facility] Urology and David Meneses renal mass Inst for Prostate and MD Rik (Primary Dx) Urologic Cancers 9[address] [facility] [address] [place], [place] 4th Floor [address] [place], [place] [phone] [address] (Work) [phone] Social History Tobacco Use Types Packs/Day Years Used Date Smoking Tobacco: Never Smokeless Tobacco: Never Alcohol Use Standard Drinks/Week Comments Yes 0 (1 standard drink = 0.6 oz pure alcoho l) 2-3 times a week Sex Assigned at Date Recorded Female 01/06/2021 11:10 AM CENTRAL OFFICE EQUIPMENT INSTALLER documented as of this encounter Last Filed Vital Signs Vital Sign Reading Time Taken Comments Blood Pressure 175/97 01/01/2017 9:37 AM CENTRAL OFFICE EQUIPMENT INSTALLER Pulse 80 01/01/2017 9:37 AM CENTRAL OFFICE EQUIPMENT INSTALLER Temperature - - Respiratory Rate - - Oxygen Saturation - - Inhaled Oxygen Concentration - - Weight 62.1 kg (136 lb 14.4 oz) 01/01/2017 9:25 AM CENTRAL OFFICE EQUIPMENT INSTALLER Height 165.1 cm (5' 5) 01/01/2017 9:25 AM CENTRAL OFFICE EQUIPMENT INSTALLER Body Mass Index 22.78 01/01/2017 9:25 AM CENTRAL OFFICE EQUIPMENT INSTALLER documented in this encounter Patient Instructions Patient InstructionsChristina Rojas CMA - 01/01/2017 9:20 AM CST Referral to Primary Care. Schedule appointment for MRI and follow up with Dr. Meneses. It was a pleasure meeting with you today. Thank you for allowing me and my team the privilege of caring for you today. YOU are the reason we are here, and I truly hope we provided you with the excellent service you deserve. Please let us know if there is anything else we can do for you so that we can be sure you are leaving completely satisfied with your care experience. NAIDA Shaffer RAL OFFICE EQUIPMENT INSTALLER documented in this encounter Progress Notes David Meneses MD - 01/01/2017 9:20 AM CST Images from the original note were not included. ASSESSMENT AND PLAN Right Renal Mass 1.1cm During counseling for this visit, we covered the risk of renal cell carcinoma and how this renal mass may be a non-cancerous lesion. We covered options including observation, cryoablation, partial nephrectomy, and nephrectomy. We covered different surgical approaches such as percutaneous, laparoscopic, robotic, and open surgery. We covered the risk of observation which is metastatic spread and need for continued observation. We covered surgical risks which include but are not limited to heart attack, stroke, blood clot in the legs or lungs, , injury to surrounding organs (intestine, liver, spleen, pancreas, lung, muscles, nerves), hernias, loss of sensation around incisions, decreased renal function, and infection. We discussed how blood transfusion may be necessary and the risks are viral illnesses such as HIV(AIDS) and Hepatitis. Additional procedures may be necessary in the perioperativeperiod. If minimally invasive techniques are used it may be necessary to convert to open surgery, and if partial nephrectomy is attempted than full nephrectomy may be required. Will proceed with observation at this point. We will obtain an MRI and follow up in one month. High Blood Pressure: - Follow up with PCP CHIEF COMPLAINT It was my pleasure to see Megan Porter who is a 61 year old female for evaluation of renal mass HPI She has had a long standing hemorrhagic cyst for 5 years. She had a hysterectomy in 2010 and her ureter was nicked in the process. She had a stent placed for the ureteral injury which was subsequently removed. Her cyst was discovered after that. In 2014 she was at [facility] where they recommended observation of the cyst. She does not have any pain. Presenting symptom: Incidental. Denies hematuria, weight loss, or bone pain. Hereditary syndromes: None ECOG Performance Score: 0 0=Fully active, 1=Unable to do strenuous activity but capable of light work, 2=Ambulatory and capable of all selfcare, 3=Capable of limited selfcare, confined to bed >50% of waking hours, 4=Completely disabled. RADIOLOGIC IMAGING I reviewed the recent radiologic imaging and reports described above. Patient Active Problem List Diagnosis Date Noted [...] Diagnosis Date ??? Essential hypertension 01/14/2015 ??? HTN (hypertension) ??? Melanoma (H) 01/2016 ??? Mild persistent asthma ??? Stricture and stenosis of esophagus Dx , [place] [facility] ??? Urethral stricture unspecified Past Surgical History: Procedure Laterality Date ??? C NONSPECIFIC PROCEDURE x3 1979,1985,1995 ??? HERNIA REPAIR 2 hernia repairs ??? HYSTERECTOMY, PAP NO LONGER INDICATED 2006 ??? STENT 09/2016 kidney ??? SURGICAL PATHOLOGY EXAM 02/2016 Current Outpatient Prescriptions Medication Sig Dispense Refill ??? Cholecalciferol (VITAMIN D3) 400 UNITS CAPS Take 2,500 Units by mouth ??? amoxicillin (AMOXIL) 500 MG capsule TAKE 2 CAPSULE BY MOUTH THREE TIMES A DAY DIRECTED 0 ??? azithromycin (ZITHROMAX) 250 MG tablet TAKE 2 TABLETS BY MOUTH TODAY, THEN TAKE 1 TABLET DAILY FOR 4 DAYS 0 ??? clindamycin (CLEOCIN T) 1 % SWAB USE 1 SWAB TOPICALLY DAILY 1 ??? hydrochlorothiazide (HYDRODIURIL) 25 MG tablet Take 25 mg by mouth daily 3 ??? triamcinolone (KENALOG) 0.1 % cream APPLY TWICE A DAY NEEDED TO AFFECTED AREA 2 ??? vitamin E 400 UNIT capsule ??? lisinopril (PRINIVIL/ZESTRIL) 5 MG tablet Take 1 tablet (5 mg) by mouth daily (Patient not taking: Reported on 01/01/2017) 30 tablet 1 ??? VITAMIN D, CHOLECALCIFEROL, PO Take 2,500 Units by mouth At Bedtime ??? [place]-3 Fatty Acids (FISH OIL PO) Take 2 capsules by mouth At Bedtime ??? Ascorbic Acid (VITAMIN C) 100 MG TABS Take 1,500 mg by mouth At Bedtime ??? ASMANEX 30 METERED DOSES 110 MCG/INH inhaler INHALE ONE PUFF DAILY FOR ASTHMA, USE WHEN OUT OF TOWN AND NEBULIZER NOT AVAILABLE 3 ??? albuterol (ALBUTEROL) 108 (90 BASE) MCG/ACT inhaler Inhale 2 puffs into the lungs every 6 hours as needed for shortness of breath / dyspnea or wheezing (Patient not taking: Reported on 01/01/2017) 1 Inhaler 1 ??? MULTI-VITAMIN OR TABS 1 TABLET DAILY at bedtime ??? B COMPLEX OR 1 tablet orally at bedtime Allergies Allergen Reactions ??? Nicotiana Tabacum Other reaction(s): Breathing Difficulty ??? Cat Hair Extract ??? Cat Hair [Cats] ??? No Clinical Screening - See Comments PN: LW Other1: -CATS ??? Sulfa Drugs Rash ??? Tramadol Other reaction(s): Nausea Headache Weirdness And sick nasuea, vomiting ??? Ultram [Tramadol Hcl] Headache Weirdness And sick nasuea, vomiting Family History Problem Relation Age of Onset ??? CANCER Mother ovarian cancer ??? HEART DISEASE Father heart attacks with bypass ??? Hypertension Father ??? Lipids Father ??? C.A.D. Father ??? CANCER Maternal Grandmother breast cancer ??? C.A.D. Paternal Grandfather ??? CANCER Paternal Aunt cervicle cancer ??? CANCER Paternal Aunt uterin cancer ??? DIABETES Paternal Aunt ??? Hypertension Brother ??? CANCER Son testicular Social History Occupational History ??? Not on file. Social History Main Topics ??? Smoking status: Never Smoker ??? Smokeless tobacco: Never Used ??? Alcohol use Yes Comment: 2-3 times a week ??? Drug use: No ??? Sexual activity: Yes Partners: Male REVIEW OF SYSTEMS The following systems were evaluated: Constitutional, Eyes, Ears/Nose/Throat, Respiratory, Cardiovascular, Gastrointestinal, Genitourinary, Musculoskeletal, Skin/Integument, Neurologic, Psychiatric, Hematologic/Lymphatic, Allergic/Immunologic, Endocrine. The only pertinent positives were as follows: There are no additional symptoms other than noted in HPI PHYSICAL EXAM Vitals: 01/01/17 0925 BP: (!) 175/97 Pulse: 72 Weight: 62.1 kg (136 lb 14.4 oz) Height: 1.651 m (5' 5) Wt Readings from Last 3 Encounters: 01/01/17 62.1 kg (136 lb 14.4 oz) 11/17/16 61.9 kg (136 lb 8 oz) 08/26/16 60.4 kg (133 lb 3.2 oz) Constitutional: Alert, no acute distress Psychiatric: Normal mood and affect Head: Normocephalic. Neck: Neck supple. No adenopathy. Thyroid symmetric, normal size ENT: Oropharynx clear. Back: No spinal tenderness. No costovertebral angle tenderness Cardiovascular: RRR. No murmurs, clicks gallops or rub Respiratory: Good diaphragmatic excursion. Lungs clear Gastrointestinal: Abdomen soft, non-tender. No masses, organomegaly. No hernia Skin: no suspicious lesions or rashes on abdomen Extremities: No lower extremity edema. No clubbing or cyanosis. Neurologic: Cranial nerves grossly intact. Equal strength and sensation on bilateral extremities. : Deferred Recent Labs Lab Test 11/17/16 1526 08/23/16213803/25/16 0836 WBC 6.9 9.9 6.2 HGB 13.0 12.8 13.1 HCT 39.2 37.9 39.0 PLT 300 312 313 Recent Labs Lab Test 11/20/16 0849 11/17/16 1526 08/24/16 0618 08/23/16213803/25/16 0836 NA 140 136 -- 141 137 POTASSIUM 4.0 2.8* 3.7 3.1* 3.2* CHLORIDE 105 98 -- 104 98 CO2 25 32 -- 30 31 ANIONGAP 10 5 -- 7 8 GLC 89 100* -- 95 91 BUN 17 13 -- 11 12 CR 0.67 0.87 -- 0.71 0.66 GFRESTIMATED 90 66 -- 84 >90 Non GFR Calc GFRESTBLACK >90 80 -- >90 GFR Calc >90 GFR Calc EDMOND 8.8 8.8 -- 8.8 9.3 Recent Labs Lab Test 11/17/16 1529 COLOR Yellow APPEARANCE Clear URINEGLC Negative URINEBILI Negative URINEKETONE Negative SG 1.009 UBLD Negative URINEPH 7.0 PROTEIN Negative NITRITE Negative LEUKEST Negative RBCU 0 WBCU <1 I, Rik Meneses, reviewed these laboratory values. Scribe Disclosure: I, Nacho Boucher, am serving as a scribe; to document services personally performed by Rik Meneses MD -based on data collection and the provider's statements to me. Provider Disclosure: I agree with above History, Review of Systems, Physical exam and Plan. I have reviewed the content of the documentation and have edited it as needed. I have personally performed the services documentedhere and the documentation accurately represents those services and the decisions I have made. Electronically signed by: Rik Meneses MD Patient Care Team: Carmen Aleman NP as PCP - General (Nurse Practitioner - Family) David Meneses MD as MD (Urology) Susie Soto RN as Registered Nurse TANJA GIPSON Copy to patient MEGAN PORTER [id number] [facility] [address] Answers for HPI/ROS submitted by the patient on 01/01/2017 General Symptoms: No Skin Symptoms: Yes HENT Symptoms: Yes EYE SYMPTOMS: No HEART SYMPTOMS: No LUNG SYMPTOMS: Yes INTESTINAL SYMPTOMS: No URINARY SYMPTOMS: No GYNECOLOGIC SYMPTOMS: No BREAST SYMPTOMS: No SKELETAL SYMPTOMS: Yes BLOOD SYMPTOMS: No NERVOUS SYSTEM SYMPTOMS: No MENTAL HEALTH SYMPTOMS: No Changes in hair: Yes Changes in moles/ morales: Yes Itching: Yes Rashes: No Changes in nails: Yes Acne: Yes Hair in places you don't want it: Yes Change in facial hair: Yes Warts: Yes Non-healing sores: Yes Scarring: Yes Flaking of skin: Yes Color changes of hands/feet in cold : Yes Sun sensitivity: Yes Skin thickening: Yes Ear pain: No Ear discharge: No Hearing loss: No Tinnitus: No Nosebleeds: No Congestion: Yes Sinus pain: Yes Trouble swallowing: No Voice hoarseness: Yes Mouth sores: No Sore throat: No Tooth pain: No Gum tenderness: No Bleeding gums: No Change in taste: No Change in sense of smell: No Dry mouth: No Hearing aid used: No Neck lump: No Cough: Yes Sputum or phlegm: Yes Coughing up blood: No Difficulty breating or shortness of breath: Yes Snoring: No Wheezing: No Difficulty breathing on exertion: Yes Nighttime Cough: Yes Difficulty breathing when lying flat: No Back pain: No Muscle aches: Yes Neck pain: No Swollen joints: Yes Joint pain: Yes Bone pain: No Muscle cramps: No Muscle weakness: No Joint stiffness: Yes Bone fracture: Yes RAL OFFICE EQUIPMENT INSTALLER documented in this encounter Plan of Treatment Not on filedocumented as of this encounter Visit Diagnoses Diagnosis Right renal mass - Primary Unspecified disorder of kidney and urete r documented in this encounter Care Teams Marketing Forecaster Relationship Specialty Start Date End Date Carmen Aleman NP PCP - General Nurse Practitioner - Family 08/25/16/11/01 David Meneses MD Urology 11/24/[address] [place] [id number] Susie Soto RN Registered Nurse 11/24/16 documented as of this encounter
--- OUTSIDE RECORDS SUMMARY | 2021-12-03 11:49 | XMS_ITS | Encounter Summary ---
:1955 Author Organization [facility] Address [address] [place] [address] Care Team Providers Name Role Phone David Meneses MD Unavailable Susie Soto RN Unavailable Reason for Visit Reason Onset Date Comments Refill Request 01/15/2017 amlodipine qty nancy fication Encounter Details Date Type Department Care Team Description 01/15/2017 Refill M [facility] Primary Care Shawn Ricci MD Refill Request Clinic [address] [place] [address] (amlodipine qty [address] [place] [address] clarification) [facility] [place] [address] Social History Tobacco Use Types Packs/Day Years Used Date Smoking Tobacco: Never Smokeless Tobacco: Never Alcohol Use Standard Drinks/Week Comments Yes 5 (1 standard drink = 0.6 oz pure alcoho l) Sex Assigned at Date Recorded Female 01/06/2021 11:10 AM HEELER documented as of this encounter Miscellaneous Notes Telephone Encounter - Melani Carolina RN - 01/15/2017 9:48 AM CST amlodipine qty clarification sent to pharmacy for 90 day supply. Melani Carolina RN ER documented in this encounter Plan of Treatment Not on filedocumented as of this encounter Visit Diagnoses Diagnosis Essential hypertension Unspecified essential hypertension documented in this encounter Care Teams Wholesale Buyer Relationship Specialty Start Date End Date David Meneses MD MD Urology 11/24/[address] [place] [id number] Susie Soto, RN Registered Nurse 11/24/16 documented as of this encounter
--- OUTSIDE RECORDS SUMMARY | 2021-12-03 11:49 | XMS_ITS | Encounter Summary ---
:1955 Author Organization [facility] Address [facility] [place] [address] Care Team Providers Name Role Phone David Meneses MD Unavailable Susie Soto RN Unavailable Shara Guaman MD Unavailable [phone] Reason for Visit Reason Comments Clinic Care Coordination - Follow-up Encounter Details Date Type Department Care Team Description 02/12/[address] [facility] Jerri Titus [facility] ANTONIA Purdy Coordination - [place] [phone] Follow-up 9 [facility] (Work) [place] [address] Social History Tobacco Use Types Packs/Day Years Used Date Smoking Tobacco: Never Smokeless Tobacco: Never Alcohol Use Standard Drinks/Week Comments Yes 5 (1 standard drink = 0.6 oz pure alcoho l) Sex Assigned at Date Recorded Female 01/06/2021 11:10 AM MEAT PASSER documented as of this encounter Progress Notes Rajwinder Titus RN - 02/19/2017 2:19 PM CST Patient left a voicemail stating she's doing well. Hasn't been checking BP, but will start again (got a new machine). Denied any physical symptoms or concerns. Rajwinder Titus RN PASSER Rajwinder Titus RN - 02/16/2017 10:54 AM CST Left second voicemail for patient to call back. Rajwinder Titus RN PASSER Rajwinder Titus RN - 02/12/2017 12:02 PM CST Left voicemail for patient to call back (follow up BP). Rajwinder Titus RN PASSER documented in this encounter Plan of Treatment Not on filedocumented as of this encounter Visit Diagnoses Not on filedocumented in this encounter Care Teams Vacuum Drum Drier Operator Relationship Specialty Start Date End Date David Meneses MD MD Urology 11/24/16 [address] [place] [address] Susie Soto, RN Registered Nurse 11/24/16 Shara Guaman MD MD Dermatology 02/16/17 [address] [facility] [address] [place] [address] documented as of this encounter
--- OUTSIDE RECORDS SUMMARY | 2021-12-03 11:49 | XMS_ITS | Encounter Summary ---
:1955 Author Organization [place] Address [address] [place] [address] Care Team Providers Name Role Phone David Meneses MD Unavailable Susie Soto RN Unavailable Shara Guaman MD Unavailable [phone] Reason for Visit Reason Comments Medication Refill albuterol (ALBUTEROL) Encounter Details Date Type Department Care Team Description 02/19/2017 Refill [facility] Primary [facility] MD Jesse (albuterol (ALBUTEROL) ) [address] [place] [address] [place], [place] [address] [address] [place] [address] [phone] Social History Tobacco Use Types Packs/Day Years Used Date Smoking Tobacco: Never Smokeless Tobacco: Never Alcohol Use Standard Drinks/Week Comments Yes 5 (1 standard drink = 0.6 oz pure alcoho l) Sex Assigned at Date Recorded Female 01/06/2021 11:10 AM COMMERCIAL AIRLINE PILOT documented as of this encounter Miscellaneous Notes Telephone Encounter - Nini Campbell RN - 02/22/2017 9:25 AM CST albuterol (ALBUTEROL) Last Written Prescription Date: 04/25/14 Last Fill Quantity: 1INH, # refills: 1 Last Office Visit : 01/28/17 Future Office visit: 05/20/17 Routing refill request to provider for review/approval because: LAST 2014 ACT ERCIAL AIRLINE PILOT documented in this encounter Plan of Treatment Not on filedocumented as of this encounter Visit Diagnoses Diagnosis ASTHMA - MILD PERSISTENT Unspecified asthma documented in this encounter Care Teams Cleat Maker Relationship Specialty Start Date End Date David Meneses MD MD Urology 11/24/16 [address] [place] [address] Susie Soto, RN Registered Nurse 11/24/16 Shara Guaman MD MD Dermatology 02/16/17 420 [facility] [address] [place] [address] documented as of this encounter
--- OUTSIDE RECORDS SUMMARY | 2021-12-03 11:49 | XMS_ITS | Encounter Summary ---
:1955 Author Organization [place] Address [facility] [place] [address] Care Team Providers Name Role Phone David Meneses MD Unavailable Susie Soto RN Unavailable Reason for Visit Reason Comments Clinic Care Coordination - Follow-up Encounter Details Date Type Department Care Team Description 01/15/2017 Care Coordination [facility] Jerri Titus [facility] ANTONIA Purdy Coordination - [place] [phone] Follow-up [address] [facility] ([facility]) [place] [address] Social History Tobacco Use Types Packs/Day Years Used Date Smoking Tobacco: Never Smokeless Tobacco: Never Alcohol Use Standard Drinks/Week Comments Yes 5 (1 standard drink = 0.6 oz pure alcoho l) Sex Assigned at Date Recorded Female 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 She saw PCP yesterday and was advised to increase amlodipine dose. She's had daily headaches since starting amlodipine, and worries that this will get worse. Unsure if she needs to try a different medication or just wait it out. Also notes UTI symptoms started as soon as she left the clinic yesterday. Reports burning sensation and urgency. She took a dose of Urostat yesterday evening to help get her through the night. Requesting recommendations. Collaboration Above discussed with Dr. Talavera and Dr. Rosales. Orders received. She didn't mention the headaches to us at all. But, we'd appreciate any other recommendations for BPcontrol. As far as the UTI symptoms, rec she get a UA/UC. Please tell her to stop HCTZ and Amlodipine. ??We will start her on Lisinopril 5 mg daily instead. Lisinopril dose can be titrate it up by 5 mg if her BP is persistently >140/90 mmHg Plan 1. Go to lab for UA/UC 2. Adjust BP meds as directed and follow up in 1 week Patient was given an opportunity to ask questions and have those questions answered to her satisfaction. Patient verbalized understanding of instructions provided and agreed to plan of care. Rajwinder Titus RN ALLATION DRAFTER documented in this encounter Plan of Treatment Not on filedocumented as of this encounter Visit Diagnoses Diagnosis Dysuria - Primary Essential hypertension Unspecified essential hypertension documented in this encounter Care Teams Metal Tester Relationship Specialty Start Date End Date David Mensees MD MD Urology 11/24/[address] [place] [address] [id number] Susie Soto RN Registered Nurse 11/24/16 documented as of this encounter
--- OUTSIDE RECORDS SUMMARY | 2021-12-03 11:49 | XMS_ITS | Encounter Summary ---
:1955 Author Organization [place] Address [address] [place] [address] Care Team Providers Name Role Phone Carmen Aleman CHIROPRACTIC NEUROLOGIST Primary Care Provider David Meneses MD Unavailable Susie Soto RN Unavailable Encounter Details Date Type Department Care Team Description 11/20/2016 [facility] [place] [address] [place] [address] Social History Tobacco Use Types Packs/Day Years Used Date Smoking Tobacco: Never Smokeless Tobacco: Never Alcohol Use Standard Drinks/Week Comments Yes 0 (1 standard drink = 0.6 oz pure alcoho l) 2-3 times a week Sex Assigned at Date Recorded Female 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 ALDOSTERONE Routine 11/20/2016 8:49 AM Hypokalemia Results for this CDT Benign essential procedure a re in hypertension the results section. BASIC METABOLIC Routine 11/20/2016 8:49 AM Hypokalemia Result s for this PANEL CDT procedure are i n the results section. documented in this encounter Results Aldosterone (11/20/2016 8:49 AM CDT) athologist Signature Aldosterone 18.5 ng/dL 11/21/2016 [place] 11:02 PM CDT [facility] Comment: (Note) INTERPRETIVE INFORMATION: Aldosterone, S marybeth Reference intervals for age 15 and older : Upright ......... ??4.0 - 31.0 ng/dL Supine .......... ??Less than or equal t o 16.0 ng/dL Unspecified ..... ??Less than or equal t o 31.0 ng/dL Normal serum levels of aldosterone are d ependent on the sodium intake and whether the patient is upright or supine. High sodium intake will tend to suppress serum aldosterone, whereas low sodium intake will elevate s marybeth aldosterone. The reference intervals for serum aldost erone are based on normal sodium intake. Access complete set of age- and/or gende r-specific reference intervals for this test in the [employer] acquired by [employer] [facility] Test Directory ([employer]). Performed by [facility], [address] [place] [id number] www.[employer], Jose Armando Nair MD, Lab. Director Specimen Anatomical Collection Method Collection Time Receive d Time (Source) Location / / Volume Laterality Blood specimen 11/20/2016 8:49 AM 017 8:50 (specimen) CDT AM CDT Tanja Talavera MD LAB - BLOOD ORDERABLES Performing Organization Address City/State/ZIP Code Phon e Number [facility] [id number] [place] [address] Renin Plasma (11/20/2016 8:49 AM CDT) athologist Signature Renin Activity 2.5 ng/mL/h 11/25/2016 [place] 1:59 PM CDT [facility] Comment: (Note) -- REFERENCE VALUE -- (Peripheral vein specimen) Na-deplete, upright: Mean: 5.9 Range: 2.9-10.8 Na-replete, upright: Mean: 1.0 Range: < or =0.6-3.0 Testing performed by Liquid Chromatograp hy-Tandem Mass Spectrometry (LC-MS/MS). This test was developed and its performa nce characteristics determined by [facility] in a manner co nsistent with CLIA requirements. This test has not been citlalli ared or approved by the U.S. Food and Drug Administration. Test Performed by: [facility] [address] [place], [place] [address] Specimen Anatomical Collection Method Collection Time Receive d Time (Source) Location / / Volume Laterality Blood specimen 11/20/2016 8:49 AM 017 8:50 (specimen) CDT AM CDT Tanja Talavera MD LAB - BLOOD ORDERABLES Performing Organization Address City/State/ZIP Code Phon e Number [facility] [address] [place] [address] Basic metabolic panel (11/20/2016 8:49 AM CDT) P athologist Signature Sodium 140 133 - 144 11/20/2016 [facility] mmol/L 2:49 PM CDT [facility] Potassium 4.0 3.4 - 5.3 11/20/2016 [facility] mmol/L 2:49 PM CDT [facility] Chloride 105 94 - 109 11/20/2016 [facility] mmol/L 2:49 PM CDT [facility] Carbon Dioxide 25 20 - 32 11/20/2016 [place] [facility] mmol/L 2:49 PM CDT [facility] Anion Gap 10 3 - 14 11/20/2016 [facility] mmol/L 2:49 PM CDT [facility] Glucose 89 70 - 99 11/20/2016 [facility] mg/dL 2:49 PM CDT [facility] Comment: Fasting specimen Urea Nitrogen 17 7 - 30 mg/dL 11/20/2016 2:49 PM CDT [facility] Creatinine 0.67 0.52 - 1.04 mg/dL 11/20/2016 2:49 PM CD T [facility] GFR Estimate 90 >60 mL/min/1.7m2 11/20/2016 2:49 PM C DT [facility] Comment: Non GFR Calc GFR Estimate If >90 >60 mL/min/1.7m2 11/20/2016 2:49 P M [facility] Black CDT [facility] Comment: GFR Calc Calcium 8.8 8.5 - 10.1 mg/dL 11/20/2016 2:49 PM CDT [facility] Specimen Anatomical Collection Method Collection Time Receive d Time (Source) Location / / Volume Laterality Blood specimen 11/20/2016 8:49 AM 017 8:50 (specimen) CDT AM CDT Tanja Talavera MD LAB - BLOOD ORDERABLES Performing Organization Address City/State/ZIP Code Phon e Number [facility] [address] [place] [address] documented in this encounter Visit Diagnoses Diagnosis Hypokalemia Hypopotassemia Benign essential hypertension Essential hypertension, benign documented in this encounter Care Teams Ferry Engineer Relationship Specialty Start Date End Date Carmen Aleman NP PCP - General Nurse Practitioner - Family 08/25/1612/17 David Meneses MD Urology 11/24/[address] [place] [address] Susie Soto RN Registered Nurse 11/24/16 documented as of this encounter
--- OUTSIDE RECORDS SUMMARY | 2021-12-03 11:49 | XMS_ITS | Encounter Summary ---
:1955 Author Organization [place] Address [address] [place] [address] Care Team Providers Name Role Phone David Meneses MD Unavailable Susie Soto RN Unavailable Shara Guaman MD Unavailable [phone] Layne Nice MD Unavailable Reason for Referral Consultation - Closed Specialty Diagnoses / Procedures Referred By Contact Refer red To Contact Diagnoses Pancreatic duct dilated Shell Tabares MD [place], [place] [address] Referral ID Status Reason Start Date Expiration Date Visits Requ ested Visits Authorized [id number] Closed 09/02/2017 09/02/2018 1 1 Reason for Visit Reason Comments Results pt would like to discuss MRI Encounter Details Date Type Department Care Team Description 09/02/2017 Office Visit Health Primary Care Shell Tabares, Pancreatic duct Clinic dilated (Primary Dx) [address] [facility] 4th [place] [address] [id number] (Wo rk) Social History Tobacco Use Types Packs/Day Years Used Date Smoking Tobacco: Never Smokeless Tobacco: Never Alcohol Use Standard Drinks/Week Comments Yes 5 (1 standard drink = 0.6 oz pure alcoho l) Sex Assigned at Date Recorded Female 01/06/2021 11:10 AM STNA documented as of this encounter Last Filed Vital Signs Vital Sign Reading Time Taken Comments Blood Pressure 124/82 09/02/2017 9:20 AM CDT Pulse 80 09/02/2017 9:20 AM CDT Temperature - - Respiratory Rate - - Oxygen Saturation - - Inhaled Oxygen Concentration - - Weight 58 kg (127 lb 14.4 oz) 09/02/2017 9:16 AM CDT Height - - Body Mass Index 22.66 03/05/2017 9:13 AM STNA documented in this encounter Patient Instructions Patient InstructionsOphelia Ramirez - 09/02/2017 9:15 AM CDT [facility] Medication Refill Request Information: * Please contact your pharmacy regarding ANY request for medication refills. [facility] Prescription Fax = [phone] * Please allow 3 business days for routine medication refills. * Please allow 5 business days for controlled substance medication refills. [facility] Test Result notification information: *You will be notified with in 7-10 days of your appointment day regarding the results of your test. If you are on MyChart you will be notified as soon as the provider has reviewed the results and signed off on them. [facility]: [phone] documented in this encounter Progress Notes Shell Tabares MD - 09/02/2017 9:15 AM CDT x Ophelia Ramirez - 09/02/2017 9:15 AM CDT Rooming Note Health Maintenance Health Maintenance Due Topic Date Due ??? HIV SCREEN (SYSTEM ASSIGNED) 11/18/1973 ??? ASTHMA ACTION PLAN Q1 YR 01/29/2006 ??? ADVANCE DIRECTIVE PLANNING Q5 YRS 11/18/2010 ??? ASTHMA CONTROL TEST Q6 MOS 09/22/2016 ??? COLON CANCER SCREEN (SYSTEM ASSIGNED) 08/02/2017 ??? PHQ-2 Q1 YR 08/26/2017 All health maintenance items discussed and pended. Blood Pressure BP Readings from Last 1 Encounters: 09/02/17 (!) 155/97 Single BP recheck started, 9:19 AM (4 minutes) Shell Tabares MD - 09/02/2017 9:15 AM CDT Chief Complaint Megan العلي is a 61 year old female presents for Chief Complaint Patient presents with ??? Results pt would like to discuss MRI SUBJECTIVE: 61 yo F with h/o HTN, mild persistent asthma, and renal cyst (present since 2005 per pt) for which he has been undergoing regular surveillance here to discuss results of recent MRCP. In brief, patient underwent abdominal MRI December 2016 as part of her surveillance regimen for her renal cyst. Renal cyst has been stable, however, MRI revealed Mild [4 mm] pancreatic ductal dilatation and distal pancreatic ductal irregularity as well as a 2 mm dilated side branch versus side branch IPMN per radiologist's report. Per N's asymptomatic pancreatic cyst surveillance guideline, patient had f/u MRCP 6 months later (which was yesterday). More recent MRCP revealing resolution of the 2 mm cystic- looking lesion but persistent 4 mm dilation of the pancreatic duct and multifocal side branch ectasia...most prominent in the pancreatic tail region, and would be in keeping with early mild chronic pancreatitis. Patient has long-standing history of constipation and diverticulosis. She does endorse intermittent abdominal discomfort relating to constipation, but specifies that this is not pain per se. She takes a cocktail of OTC supplements including magnesium oxide for her constipation. At times she has noticed that her stools are looser than usual, generally correlated with taking a [id number] dose of her bowel regimen. Intermittent RLQ pain which she has had since repair x2 of R-sided femoral hernia. Has not noticed abdominal pain correlated with high-fat meals. Denies steatorrhea, foul-smelling stools, excessive flatulence. Her fasting glucoses have been wnl over the last year. Does endorse frequent urination but this is related to large intake of fluids as pt likes to stay hydrated. Eating well-balanced diet; does admit to frequent beer drinking, 10-15 beers/wk particularly on the weekend.Has been trying to cut back. Medications and allergies were reviewed by me today. Social History History Smoking Status ??? Never Smoker Smokeless Tobacco ??? Never Used PHQ-2 (??1998 [employer]) 08/26/2016 03/25/2016 Q1: Little interest or pleasure in doing things 0 0 Q2: Feeling down, depressed or hopeless 0 0 PHQ-2 Score 0 0 No flowsheet data found. Past Medical History Patient Active Problem List Diagnosis ??? Stricture and stenosis of esophagus ??? Urethral stricture ??? Mild persistent asthma ??? Cold sore ??? CARDIOVASCULAR SCREENING; LDL GOAL LESS THAN 160 ??? Essential hypertension Review of Systems 5 point ROS completed and negative except noted above, including Gen, CV, Resp, GI, MS Physical Exam BP 124/82 Pulse 80 Wt 58 kg (127 lb 14.4 oz) LMP 03/29/2005 BMI 22.66 kg/m2 Gen: no distress, comfortable, pleasant Eyes: sclera anicteric, normal extra-ocular movements Cardiovascular: regular rate and rhythm, normal S1 and S2, no murmurs, rubs or gallops, peripheral pulses full and symmetric Respiratory: clear to auscultation, no wheezes or crackles, normal breath sounds Gastrointestinal: positive bowel sounds, nondistended; TTP in epigastrium and RUQ Skin: no concerning lesions, no jaundice Psychological: appropriate mood Assessment & Plan 61 yo F with h/o HTN, asthma, and asymptomatic renal cyst here to f/u on recent MRCP performed in surveillance of incidentally-discovered pancreatic cyst and pancreatic duct dilation. Pancreatic duct dilated 2 mm cyst on initial 12/2016 abdominal MRI has disappeared; stable 4 mm pancreatic duct dilation. There are diffuse nonspecific abnormalities primarily in the side branches of the pancreatic duct whichper radiologist's report are c/w early mild chronic pancreatitis. Patient does not have clinical evidence of chronic pancreatitis such as characteristic abdominal pain, steatorrhea, or evidence of diabetes mellitus. Does have ~ 10 lb weight loss in the last 6 months. She does have some chronic epigastric tenderness which is present when constipated. Will get hepatic panel to evaluate. Potential etiologies of chronic pancreatitis would be alcohol consumption, genetic predisposition, recurrent acute pancreatitis, autoimmunity, pancreatic cancer or neuroendocrine tumor, idiopathic. Patient does endorse excessive EtOH use. Denies previous acute pancreatitis, no family h/o autoimmune condition, chronicpancreatitis. However, in absence of symptoms it is difficult to say if pt will ever go on to develop chronic pancreatitis. These findings may also represent alternative diagnosis vs. Benign anatomic variation. Will refer to GI for their input on etiology and recs regarding how frequently to monitor the anatomy of the pancreas. - Hepatic panel - GASTROENTEROLOGY ADULT REFERRAL for ?need for ERCP/EUS, and if needs surveillance/how often. HM: Discussed EtOH use with pt. Informed that EtOH is toxic to pancreas and liver, encouraged cessation or at least reduction in use. Patient agreeable that she needs to make a change, planning to cut back her alcohol use. Will follow-up on her progress. RTC: pt will f/u after discussion with GI Larissa Cortez, MS4 Teaching Physician Disclosure: I was present with the medical student who participated in the service and in the documentation of this note. I have verified the history and personally performed the physical exam and medical decisionmaking, and have verified the content of the note, which accurately reflects my assessment of the patient and the plan of care Shell Tabares M.D. Internal Medicine pager [phone] documented in this encounter Nursing Notes Ophelia Ramirez - 09/02/2017 9:15 AM CDT Chief Complaint Patient presents with ??? Results pt would like to discuss MRI Ophelia Ramirez CMA at 9:16 AM on 09/02/2017. documented in this encounter Plan of Treatment Scheduled Referrals Name Type Priority Associated Diagnoses Order S chedule GASTROENTEROLOGY ADULT Referral Routine Pancreatic duct Or dered: 09/02/2017 REFERRAL dilated documented as of this encounter Results Hepatic panel (09/02/2017 11:19 AM CDT) P athologist Signature Bilirubin Direct 0.2 0.0 - 0.2 09/02/2017 [facility] mg/dL 11:56 AM CDT [facility] Bilirubin Total 1.0 0.2 - 1.3 09/02/2017 [facility] mg/dL 11:56 AM CDT [facility] Albumin 4.2 3.4 - 5.0 09/02/2017 [facility] g/dL 11:56 AM CDT [facility] Protein Total 8.0 6.8 - 8.8 09/02/2017 [facility] g/dL 11:56 AM CDT [facility] Alkaline 78 40 - 150 09/02/2017 [facility] Phosphatase U/L 11:56 AM CDT [facility] ALT 20 0 - 50 U/L 09/02/2017 [facility] 11:56 AM CDT [facility] AST 13 0 - 45 U/L 09/02/2017 [facility] 11:56 AM CDT [facility] Specimen Anatomical Collection Method Collection Time Receive d Time (Source) Location / / Volume Laterality Blood specimen 09/02/2017 11:19 8 (specimen) AM CDT 11:20 AM CDT Shell Tabares MD LAB - BLOOD ORDERABLES Performing Organization Address City/State/ZIP Code Phon e Number [address] [address] [facility] documented in this encounter Visit Diagnoses Diagnosis Pancreatic duct dilated - Primary Other specified disease of pancreas documented in this encounter Care Teams Apartment Maintenance Manager Relationship Specialty Start Date End Date David Meneses MD MD Urology 11/24/[address] [place] [address] [id number] Susie Soto, RN Registered Nurse 11/24/16 Shara Guaman MD MD Dermatology 02/16/[address] [place] [address] [address] [place], [place] [address] Layne Nice MD MD Dermatology 05/14/17 [facility] [address] [place] [address] [phone] documented as of this encounter
--- OUTSIDE RECORDS SUMMARY | 2021-12-03 11:49 | XMS_ITS | Encounter Summary ---
:1955 Author Organization [place] Address [facility] [place] [address] Care Team Providers Name Role Phone David Meneses MD Unavailable Susie Soto RN Unavailable Reason for Visit Reason Comments Establish Care Patient is here to establish a new PCP. Results Patient is here to go over M RI results. Encounter Details Date Type Department Care Team Description 01/14/2017 [facility] Shawn Ricci Be nign essential hypertension (Primary Dx); Clinic MD Need for hepatitis C screening test; [address] [facility] [address] [facility] Visit for screening mammogram; 4th Floor [place], [place] Essential hypertension; [place] [address] Pancreas cyst; [phone] Mild persistent asthma witho ut complication; Hypokalemia; Encounter for routine adult health examination without abnormal findings Social History Tobacco Use Types Packs/Day Years Used Date Smoking Tobacco: Never Smokeless Tobacco: Never Tobacco Cessation: Counseling Given: No Alcohol Use Standard Drinks/Week Comments Yes 5 (1 standard drink = 0.6 oz pure alcoho l) Sex Assigned at Date Recorded Female 01/06/2021 11:10 AM GRAIN TRADER documented as of this encounter Last Filed Vital Signs Vital Sign Reading Time Taken Comments Blood Pressure 148/92 01/14/2017 9:09 AM 2nd attempt GRAIN TRADER Pulse 84 01/14/2017 9:07 AM GRAIN TRADER Temperature 36.4 ??C (97.6 ??F) 01/14/2017 9:07 AM GRAIN TRADER Respiratory Rate 18 01/14/2017 9:07 AM GRAIN TRADER Oxygen Saturation 100% 01/14/2017 9:07 AM GRAIN TRADER Inhaled Oxygen Concentration - - Weight 59.9 kg (132 lb 1.6 oz) 01/14/2017 9:07 AM GRAIN TRADER Height 160.8 cm (5' 3.31) 01/14/2017 9:07 AM GRAIN TRADER Body Mass Index 23.17 01/14/2017 9:07 AM GRAIN TRADER documented in this encounter Patient Instructions Patient InstructionsVane Mororw LPN - 01/14/2017 9:10 AM CST [facility]: [phone] [facility] Medication Refill Request Information: * Please contact your pharmacy regarding ANY request for medication refills. [facility] Prescription Fax = [phone] * Please allow 3 business days for [...] the results and signed off on them. Mammogram Screening Tool Mammogram Does patient have a history of breast cancer? no Does patient have breast implants? no Reason for mammogram? Routine MRI Screening Tool Does the patient have any metals in their body? Yes Right arm Is the patient claustrophobic? yes Does the patient need sedation? no Is the patient able to transport themself to a table? yes N TRADER documented in this encounter Progress Notes Shawn Ricci MD - 01/14/2017 9:10 AM CST Images from the original note were not included. PRIMARY CARE CENTER HPI: Megan Freedom Bj العلي is a 61 year old female who presents for the following Patient presents with: Establish Care (Patient is here to establish a new PCP. ) and Results (Patient is here to go over MRI results. ) Has hx of mild persistent asthma. Stopped taking Asmanex 1 week ago, did not think that it was helping. Uses albuterol 1x/week, no hospitalizations, no nighttime symptoms unless URI. Triggers are smokeand cats. Seen by nephrology 11/18 noted to have hypokalemia, held HCTZ, repeat K normal. Resumed her HCTZ. Notes a hx of joint pain in response to lisinopril. Problem, Medication and Allergy Lists were reviewed and are current. Patient is an established patient of this clinic. Review of Systems: ROS 10 point reviewed, negative except as per HPI Physical Exam: BP (!) 148/92 Pulse 84 Temp 97.6 ??F (36.4 ??C) (Oral) Resp 18 Ht 1.608 m (5' 3.31) Wt 59.9 kg (132 lb 1.6 oz) LMP 03/29/2005 SpO2 100% ? No BMI 23.17 kg/m2 Body mass index is 23.17 kg/(m^2). Vitals were reviewed GENERAL APPEARANCE: healthy, alert and no distress [...] PSYCH: mentation appears normal. and affect normal/bright Results: Recent lab results reviewed Assessment and Plan Megan was seen today for establish care and results. Diagnoses and all orders for this visit: Essential hypertension Hypokalemia Patient's BP slightly above goal today. Will increase amlodipine due to recent hypokalemia which resolved after stopping HCTZ. As patient has since restarted HCTZ, will recheck BMP to ensure continued resolution of hypokalemia - Basic metabolic panel; Future - amLODIPine (NORVASC) 5 MG tablet; Take 2 tablets (10 mg) by mouth daily - 2 wk f/u for BP recheck Pancreas cyst Reviewed findings of 2 mm dilated side branch vs IPMN with patient. Rec for f/u MRI/MRCP in 6-12 months. - MRI Abdomen MRCP w/o & w contrast; Future Mild persistent asthma without complication Patient will resume taking her Asmanex. Her symptoms are more consistent with intermittent asthma than the diagnosis of mild persistent asthma that she carries (1x/wk short acting inhalers, no nocturnal symptoms, no hospitalizations, PFTs at [place]). If so, she may not need a controller medication, needto review PFTs from [place]. Triggers are cats, URI, and smoke. - Obtain PFTs from [place] to review - Resume Asmanex - Continue to avoid triggers as possible Encounter for routine [facility] examination without abnormal findings Visit for screening mammogram Need for hepatitis C screening test - Hepatitis C Screen Reflex to HCV RNA Quant and Genotype; Future - OR SCREENING DIGITAL BILAT - Future (s+30); Future - States that she had a normal colonoscopy in 2007 done at [facility], requested that records be sent - Tdap 04/01/10 - Will address mammogram at follow up - Declines flu shot Options for treatment and follow-up care were reviewed with the patient. Megan العلي engaged in the decision making process and verbalized understanding of the options discussed and agreed with the final plan. Shawn Ricci MD Jan 14, 2017 Pt was seen and plan of care discussed with Dr Rosales. Attestation: I, Jennifer Burton, saw this patient with the resident and agree with the resident???s findings and plan of care as documented in the resident???s note. Jennifer Burton MD N TRADER documented in this encounter Nursing Notes Vane Morrow LPN - 01/14/2017 9:10 AM CST Chief Complaint Patient presents with ??? Establish Care Patient is here to establish a new PCP. ??? Results Patient is here to go over MRI results. Vane Morrow LPN at 9:07 AM on 01/14/2017. N TRADER documented in this encounter Plan of Treatment Not on filedocumented as of this encounter Results MRI Abdomen MRCP w/o [...] MD Jennifer Burton MD IMG MRI ORDERABLES Basic metabolic panel (01/14/2017 11:29 AM GRAIN TRADER) P athologist Signature Sodium 138 133 - 144 01/14/2017 [facility] mmol/L 12:01 PM [facility] Potassium 3.5 3.4 - 5.3 01/14/2017 [facility] mmol/L 12:01 PM [facility] Chloride 100 94 - 109 01/14/2017 [facility] mmol/L 12:01 PM [facility] Carbon Dioxide 31 20 - 32 01/14/2017 [facility] mmol/L 12:01 PM [facility] Anion Gap 7 3 - 14 01/14/2017 [facility] mmol/L 12:01 PM [facility] Glucose 98 70 - 99 01/14/2017 [facility] mg/dL 12:01 PM [facility] Urea Nitrogen 10 7 - 30 01/14/2017 [facility] mg/dL 12:01 PM [facility] Creatinine 0.64 0.52 - 01/14/2017 [facility] 1.04 mg/dL 12:01 PM [facility] GFR Estimate >90 >60 01/14/2017 [facility] mL/min/1.7 12:[address] Comment: Non GFR Calc GFR Estimate If >90 >60 mL/min/1.7m2 01/14/2017 12:01 PM [facility] Black [facility] Comment: GFR Calc Calcium 9.7 8.5 - 10.1 mg/dL 01/14/2017 12:01 PM [facility] Specimen Anatomical Collection Method Collection Time Receive d Time (Source) Location / / Volume Laterality Blood specimen 01/14/2017 11:29 7 (specimen) AM GRAIN TRADER 11:32 AM [facility] Jennifer Burton MD LAB - BLOOD ORDERABLES Performing Organization Address City/State/ZIP Code Phon e Number [address] [address] [facility] Hepatitis C Screen Reflex to HCV RNA Quant and Genotype (01/14/2017 11:29 AM GRAIN TRADER) [facility] Method Time Signature Hepatitis C Nonreactive NR^Nonrea 01/14/2017 [facility] Antibody ctive 2:16 PM [facility] Comment: Assay performance characteristics have n ot been established for newborns, infants, and children Specimen Anatomical Collection Method Collection Time Receive d Time (Source) Location / / Volume Laterality Blood specimen 01/14/2017 11:29 7 (specimen) AM GRAIN TRADER 11:32 AM GRAIN TRADER Jennifer Burton MD LAB - BLOOD ORDERABLES Performing Organization Address City/State/ZIP Code Phon e Number [facility] [address] [place], [place] [id number] [place] [address] documented in this encounter Visit Diagnoses Diagnosis Benign essential hypertension - Primary Essential hypertension, benign Need for hepatitis C screening test Special screening examination for other specified viral diseases Visit for screening mammogram Other screening mammogram Essential hypertension Unspecified essential hypertension 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
--- OUTSIDE RECORDS SUMMARY | 2021-12-03 11:49 | XMS_ITS | Encounter Summary ---
:1955 Author Organization [place] Address [address] [place] [address] Care Team Providers Name Role Phone David Meneses MD Unavailable Susie Soto RN Unavailable Reason for Visit Reason Comments Hypertension follow up hypertension Encounter Details Date Type Department Care Team Description 01/28/2017 [facility] Shawn Ricci Mi ld persistent asthma without complication (Primary Dx); Clinic Essential hypertension; [address] Encounter for routine adult health exami nation without abnormal findings 4[address] [place] [phone] Social History Tobacco Use Types Packs/Day Years Used Date Smoking Tobacco: Never Smokeless Tobacco: Never Alcohol Use Standard Drinks/Week Comments Yes 5 (1 standard drink = 0.6 oz pure alcoho l) Sex Assigned at Date Recorded Female 01/06/2021 11:10 AM MEDICAL ACCOUNTANT documented as of this encounter Last Filed Vital Signs Vital Sign Reading Time Taken Comments Blood Pressure 135/84 01/28/2017 1:49 PM MEDICAL ACCOUNTANT Pulse 72 01/28/2017 1:49 PM MEDICAL ACCOUNTANT Temperature - - Respiratory Rate 20 01/28/2017 1:42 PM MEDICAL ACCOUNTANT Oxygen Saturation 97% 01/28/2017 1:42 PM MEDICAL ACCOUNTANT Inhaled Oxygen Concentration - - Weight 61.5 kg (135 lb 10.4 oz) 01/28/2017 1:42 PM MEDICAL ACCOUNTANT Height - - Body Mass Index 23.8 01/14/2017 9:07 AM MEDICAL ACCOUNTANT documented in this encounter Patient Instructions Patient InstructionsKatarzyna Soto LPN - 01/28/2017 1:50 PM CST Primary Care Center: [phone] Primary [facility] [place] [facility] Medication Refill Request Information: * Please contact your pharmacy regarding ANY request for medication refills. [facility] Prescription Fax = [phone] * Please allow 3 business days for [...] the results and signed off on them. CAL ACCOUNTANT documented in this encounter Progress Notes Shawn Ricci MD - 01/28/2017 1:50 PM CST Images from the original note were not included. PRIMARY CARE CENTER SUBJECTIVE: Megan العلي is a 61 year old female with a PMHx of mild persistent asthma, HTN, OA who comes in for BP recheck. Started on lisinopril in the interim. This was the original plan of her transportation solutions manager. Stopped takingamlodipine and HCTZ. Has noted stiffness since starting lisinopril which is manageable. Continues to note shortnss of breath with exertion off and on for years. Resumed Asmanex after last clinic visit, no change in symptoms. Some of patient's triggers are unavoidable (visits homes with mold as SW). Still uses albuterol only when exposed to triggers. Still feels that air is difficult to get out. Taking 110 mcg asmanex daily. Needs refill. Medications and allergies reviewed by me today. ROS: 7 point ROS negative except as per HPI OBJECTIVE: BP 135/84 (BP Location: Right arm, Patient Position: Sitting, Cuff Size: Adult Regular) Pulse 72 Resp 20 Wt 61.5 kg (135 lb 10.4 oz) LMP 03/29/2005 SpO2 97% BMI 23.8 kg/m2 Wt Readings from Last 1 Encounters: 01/28/17 61.5 kg (135 lb 10.4 oz) Gen: Pleasant, well-developed, well-nourished and in no apparent distress HEENT: normocephalic, atraumatic, EOMI, no scleral icterus CV: regular rate and rhythm, normal S1 S2, no S3 or S4 and no murmur, click, or rub Resp: clear to ausculation bilaterally, no increased WOB Abd: bowel sounds presents, soft. non-tender, non-distended, no masses or hepatosplenomegaly Ext: WWP, no LE edema Skin: warm and dry, no rashes or ecchymoses on exposed skin Neuro: alert and oriented, normal gait, speech fluent Psych: normal mood, normal affect ASSESSMENT/PLAN: Megan was seen today for hypertension. Diagnoses and all orders for this visit: Mild persistent asthma without complication Patient taking mometasone 110 mcg daily, initial starting dose is 220 mcg daily. 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 - mometasone (ASMANEX 30 METERED DOSES) 220 MCG/INH Inhaler; Inhale 1 puff into the lungs daily Essential hypertension Patient's BP controlled on lisinopril 5 mg. New start, will check BMP. Patient has stopped amlodipine and HCTZ. - Basic metabolic panel; Future Encounter for routine adult health examination without abnormal findings - Hep C negative - Mammogram scheduled for 03/05/2017 - States that she had a normal colonoscopy in 2007 done at [facility], requested that records be sent - Tdap 04/01/10 - PNA 23 in 2011. Will need PNA 13 at age 65 - Declined flu shot this year Pt should return to clinic for f/u with me in 4 month Shawn Ricci MD Jan 28, 2017 Plan of care discussed with Dr Amaya. Rafiq Ricci MD Internal Medicine, PGY-2 Pager [phone] While the patient was in clinic, I reviewed the pertinent medical history and results. I discussed the current findings on physical examination, as well as the patient???s diagnosis and treatment plan with the resident and agree with the information as documented with the following exceptions: none. Christianne Amaya MD CAL ACCOUNTANT documented in this encounter Nursing Notes Katarzyna Soto LPN - 01/28/2017 1:50 PM CST Chief Complaint Patient presents with ??? Hypertension follow up hypertension Katarzyna Soto LPN 1:51 PM on 01/28/2017 Rooming Note Health Maintenance Health Maintenance Due Topic Date Due ??? ASTHMA ACTION PLAN Q1 YR 01/29/2006 ??? ADVANCE DIRECTIVE PLANNING Q5 YRS 11/18/2010 ??? MAMMO SCREEN Q2 YR (SYSTEM ASSIGNED) 04/11/2015 ??? ASTHMA CONTROL TEST Q6 MOS 09/22/2016 All health maintenance items discussed and pended. Katarzyna Soto LPN 1:55 PM on 01/28/2017 CAL ACCOUNTANT documented in this encounter Plan of Treatment Not on filedocumented as of this encounter Results Basic metabolic panel (01/28/2017 3:05 PM MEDICAL ACCOUNTANT) P athologist Signature Sodium 140 133 - 144 01/28/2017 [facility] mmol/L 3:31 PM [facility] Potassium 3.5 3.4 - 5.3 01/28/2017 [facility] mmol/L 3:31 PM [facility] Chloride 105 94 - 109 01/28/2017 [facility] mmol/L 3:31 PM [facility] Carbon Dioxide 28 20 - 32 01/28/2017 [facility] mmol/L 3:31 PM [facility] Anion Gap 6 3 - 14 01/28/2017 [facility] mmol/L 3:31 PM [facility] Glucose 92 70 - 99 01/28/2017 [facility] mg/dL 3:31 PM [facility] Urea Nitrogen 10 7 - 30 01/28/2017 [facility] mg/dL 3:31 PM [facility] Creatinine 0.74 0.52 - 01/28/2017 [facility] 1.04 mg/dL 3:31 PM [facility] GFR Estimate 80 >60 01/28/2017 [facility] mL/min/1.7 3:31 PM MEDICAL ACCOUNTANT [address] Comment: Non GFR Calc GFR Estimate If >90 >60 mL/min/1.7m2 01/28/2017 3:31 P M [facility] Black [facility] Comment: GFR Calc Calcium 8.8 8.5 - 10.1 mg/dL 01/28/2017 3:31 PM MEDICAL ACCOUNTANT [facility] Specimen Anatomical Collection Method Collection Time Receive d Time (Source) Location / / Volume Laterality Blood specimen 01/28/2017 3:05 PM 017 3:06 (specimen) MEDICAL ACCOUNTANT PM MEDICAL ACCOUNTANT Christianne Amaya MD LAB - BLOOD ORDERABLES Performing Organization Address City/State/ZIP Code Phon e Number [address] [address] [facility] documented in this encounter Visit Diagnoses Diagnosis Mild persistent asthma without complicat ion - Primary Unspecified asthma Essential hypertension Unspecified essential hypertension Encounter for routine adult health exami nation without abnormal findings documented in this encounter Care Teams Instructor Watch Assembly Relationship Specialty Start Date End Date David Meneses MD MD Urology 11/24/[address] [place] [address] Susie Soto, RN Registered Nurse 11/24/16 documented as of this encounter
--- OUTSIDE RECORDS SUMMARY | 2021-12-03 11:49 | XMS_ITS | Encounter Summary ---
:1955 Author Organization [place] Address [address] [place] [address] Care Team Providers Name Role Phone Carmen Aleman WRINGER AND SETTER Primary Care Provider David Meneses MD Unavailable Susie Soto RN Unavailable Reason for Visit Reason Onset Date Comments Pre Visit Planning - Done 11/24/2016 Encounter Details Date Type Department Care Team Description 11/24/2016 PRE VISIT [facility] and David Meneses Pre Visit Planning - Inst for Prostate and MD Rik Done [facility] [address] [place] [address] Floor [address] [place], [place] [phone] (Work) [phone] Social History Tobacco Use Types Packs/Day Years Used Date Smoking Tobacco: Never Smokeless Tobacco: Never Alcohol Use Standard Drinks/Week Comments Yes 0 (1 standard drink = 0.6 oz pure alcoho l) 2-3 times a week Sex Assigned at Date Recorded Female 01/06/2021 11:10 AM RESOURCE DEVELOPMENT DIRECTOR documented as of this encounter Miscellaneous Notes Telephone Encounter - Jenna Child - 11/24/2016 11:27 AM CDT Records in epic.. cdk documented in this encounter Plan of Treatment Not on filedocumented as of this encounter Visit Diagnoses Not on filedocumented in this encounter Care Teams Technical Services Librarian Relationship Specialty Start Date End Date Carmen Aleman, WRINGER AND SETTER PCP - General Nurse Practitioner - Family 08/25/1612/17 David Meneses MD Urology 11/24/[address] [place] [id number] Susie Soto, RN Registered Nurse 11/24/16 documented as of this encounter
--- OUTSIDE RECORDS SUMMARY | 2021-12-03 11:49 | XMS_ITS | Encounter Summary ---
:1955 Author Organization [place] Address [address] [place] [address] Care Team Providers Name Role Phone David Meneses MD Unavailable Susie Soto RN Unavailable Encounter Details Date Type Department Care Team Description 01/28/2017 Orders Only Health Lab Essential hypertension [address] [phone] Social History Tobacco Use Types Packs/Day Years Used Date Smoking Tobacco: Never Smokeless Tobacco: Never Alcohol Use Standard Drinks/Week Comments Yes 5 (1 standard drink = 0.6 oz pure alcoho l) Sex Assigned at Date Recorded Female 01/06/2021 11:10 AM MEDICAL ASSISTANT OB GYN documented as of this encounter Plan of Treatment Not on filedocumented as of this encounter Procedures Procedure Name Priority Date/Time Associated Diagnosis Comme nts BASIC METABOLIC Routine 01/28/2017 3:05 PM Essential Result s for this PANEL MEDICAL ASSISTANT OB GYN hypertension procedure are i n the results section. documented in this encounter Results Basic metabolic panel (01/28/2017 3:05 PM MEDICAL ASSISTANT OB GYN) P athologist Signature Sodium 140 133 - 144 01/28/2017 [facility] mmol/L 3:31 PM [facility] Potassium 3.5 3.4 - 5.3 01/28/2017 [facility] mmol/L 3:31 PM [facility] Chloride 105 94 - 109 01/28/2017 [facility] mmol/L 3:31 PM [facility] Carbon Dioxide 28 20 - 32 01/28/2017 [facility] mmol/L 3:31 PM [facility] Anion Gap 6 3 - 14 01/28/2017 [facility] mmol/L 3:31 PM [facility] Glucose 92 70 - 99 01/28/2017 [facility] mg/dL 3:31 PM [facility] Urea Nitrogen 10 7 - 30 01/28/2017 [facility] mg/dL 3:31 PM [facility] Creatinine 0.74 0.52 - 01/28/2017 [facility] 1.04 mg/dL 3:31 PM [facility] GFR Estimate 80 >60 01/28/2017 [facility] mL/min/1.7 3:[address] Comment: Non GFR Calc GFR Estimate If >90 >60 mL/min/1.7m2 01/28/2017 3:31 P M [facility] Black [facility] Comment: GFR Calc Calcium 8.8 8.5 - 10.1 mg/dL 01/28/2017 3:31 PM [facility] Specimen Anatomical Collection Method Collection Time Receive d Time (Source) Location / / Volume Laterality Blood specimen 01/28/2017 3:05 PM 017 3:06 (specimen) MEDICAL ASSISTANT OB GYN PM MEDICAL ASSISTANT OB GYN Christianne Amaya MD LAB - BLOOD ORDERABLES Performing Organization Address City/State/ZIP Code Phon e Number [address] [address] [facility] documented in this encounter Visit Diagnoses Diagnosis Essential hypertension Unspecified essential hypertension documented in this encounter Care Teams Compressed Gas Plant Worker Relationship Specialty Start Date End Date David Meneses MD MD Urology 11/24/[address] [place] [address] Susie Soto, RN Registered Nurse 11/24/16 documented as of this encounter
--- OUTSIDE RECORDS SUMMARY | 2021-12-03 11:49 | XMS_ITS | Encounter Summary ---
:1955 Author Organization [place] Address [facility] [place] [address] Care Team Providers Name Role Phone David Meneses MD Unavailable Susie Soto RN Unavailable Reason for Visit Reason Comments Clinic Care Coordination - Follow-up Encounter Details Date Type Department Care Team Description 01/22/2017 Care Coordination [facility] Jerri Titus [facility] ANTONIA Purdy Coordination - [place] [phone] Follow-up [address] [facility] (Work) [place] [phone] Social History Tobacco Use Types Packs/Day Years Used Date Smoking Tobacco: Never Smokeless Tobacco: Never Alcohol Use Standard Drinks/Week Comments Yes 5 (1 standard drink = 0.6 oz pure alcoho l) Sex Assigned at Date Recorded Female 01/06/2021 11:10 AM HOSE SUSPENDER CUTTER documented as of this encounter Progress Notes Rajwinder Titus RN - 01/22/2017 3:36 PM CST Patient left a voicemail stating she hasn't checked her BP, but is feeling much better. She will check over the weekend and call if any issues. Rajwinder Titus RN SUSPENDER CUTTER Rajwinder Titus, RN - 01/22/2017 9:35 AM CST Left voicemail for patient to call back (follow up BP). Rajwinder Titus RN SUSPENDER CUTTER documented in this encounter Plan of Treatment Not on filedocumented as of this encounter Visit Diagnoses Not on filedocumented in this encounter Care Teams Armor Reconnaissance Vehicle Crewman Relationship Specialty Start Date End Date David Meneses MD MD Urology 11/24/16 [address] [place] [address] Susie Soto, RN Registered Nurse 11/24/16 documented as of this encounter
--- OUTSIDE RECORDS SUMMARY | 2021-12-03 11:49 | XMS_ITS | Encounter Summary ---
:1955 Author Organization [place] Address [address] [place] [address] Care Team Providers Name Role Phone David Meneses MD Unavailable Susie Soto RN Unavailable Encounter Details Date Type Department Care Team Description 01/14/2017 Orders Only [facility] Need for hepatitis C screeni ng test; [address] Essential hypertension 1st [place] [address] Social History Tobacco Use Types Packs/Day Years Used Date Smoking Tobacco: Never Smokeless Tobacco: Never Alcohol Use Standard Drinks/Week Comments Yes 5 (1 standard drink = 0.6 oz pure alcoho l) Sex Assigned at Date Recorded Female 01/06/2021 11:10 AM STEAM SHOVEL ENGINEER documented as of this encounter Plan of Treatment Not on filedocumented as of this encounter Procedures Procedure Name Priority Date/Time Associated Diagnosis Comme nts HEPATITIS C SCREEN Routine 01/14/2017 11:29 Need for hepatitis C Results for this REFLEX TO HCV RNA AM STEAM SHOVEL ENGINEER screening test procedur e are in QUANT AND GENOTYPE the resul ts section. BASIC METABOLIC Routine 01/14/2017 11:29 Essential Results for this PANEL AM STEAM SHOVEL ENGINEER hypertension procedure are i n the results section. documented in this encounter Results Basic metabolic panel (01/14/2017 11:29 AM STEAM SHOVEL ENGINEER) P athologist Signature Sodium 138 133 - 144 01/14/2017 [facility] mmol/L 12:01 PM [facility] Potassium 3.5 3.4 - 5.3 01/14/2017 [facility] mmol/L 12:01 PM [facility] Chloride 100 94 - 109 01/14/2017 [facility] mmol/L 12:01 PM [facility] Carbon Dioxide 31 20 - 32 01/14/2017 [facility] mmol/L 12:01 PM [facility] Anion Gap 7 3 - 14 01/14/2017 [facility] mmol/L 12:01 PM [facility] Glucose 98 70 - 99 01/14/2017 [facility] mg/dL 12:01 PM [facility] Urea Nitrogen 10 7 - 30 01/14/2017 [facility] mg/dL 12:01 PM [facility] Creatinine 0.64 0.52 - 01/14/2017 [facility] 1.04 mg/dL 12:01 PM [facility] GFR Estimate >90 >60 01/14/2017 [facility] mL/min/1.7 12:[address] Comment: Non GFR Calc GFR Estimate If >90 >60 mL/min/1.7m2 01/14/2017 12:01 PM [facility] Comment: GFR Calc Calcium 9.7 8.5 - 10.1 mg/dL 01/14/2017 12:01 PM [facility] Specimen Anatomical Collection Method Collection Time Receive d Time (Source) Location / / Volume Laterality Blood specimen 01/14/2017 11:29 01/14/ 7 (specimen) AM STEAM SHOVEL ENGINEER 11:32 AM STEAM SHOVEL ENGINEER Jennifer Burton MD LAB - BLOOD ORDERABLES Performing Organization Address City/State/ZIP Code Phon e Number [address] [address] [facility] Hepatitis C Screen Reflex to HCV RNA Quant and Genotype (01/14/2017 11:29 AM STEAM SHOVEL ENGINEER) [facility] gist Method Time Signature Hepatitis C Nonreactive NR^Nonrea 01/14/2017 [facility] Antibody ctive 2:16 PM [facility] Comment: Assay performance characteristics have n ot been established for newborns, infants, and children Specimen Anatomical Collection Method Collection Time Receive d Time (Source) Location / / Volume Laterality Blood specimen 01/14/2017 11:29 7 (specimen) AM STEAM SHOVEL ENGINEER 11:32 AM STEAM SHOVEL ENGINEER Jennifer Burton MD LAB - BLOOD ORDERABLES Performing Organization Address City/State/ZIP Code Phon e Number [id number] [place] [address] documented in this encounter Visit Diagnoses Diagnosis Need for hepatitis C screening test Special screening examination for other specified viral diseases Essential hypertension Unspecified essential hypertension documented in this encounter Care Teams Exhibition Carver Relationship Specialty Start Date End Date David Meneses MD MD Urology 11/24/[address] [place] [address] Susie Soto, RN Registered Nurse 11/24/16 documented as of this encounter
--- OUTSIDE RECORDS SUMMARY | 2021-12-03 11:49 | XMS_ITS | Encounter Summary ---
:1955 Author Organization [place] Address [address] [place] [address] Care Team Providers Name Role Phone David Meneses MD Unavailable Susie Soto RN Unavailable Shara Guaman MD Unavailable [phone] Layne Nice MD Unavailable Reason for Visit Reason Onset Date Comments Appointment 05/14/2017 Pre visit Encounter Details Date Type Department Care Team Description 05/14/2017 Telephone [facility] Dermatology Shara Guaman Appointment (Pre visit [address] [facility] MD Marni ) [address]rd Floor [address] [place] [address] 98 [phone] [place], [place] [phone] (Wo rk) Social History Tobacco Use Types Packs/Day Years Used Date Smoking Tobacco: Never Smokeless Tobacco: Never Alcohol Use Standard Drinks/Week Comments Yes 5 (1 standard drink = 0.6 oz pure alcoho l) Sex Assigned at Date Recorded Female 01/06/2021 11:10 AM MEASUREMENT AND VERIFICATION ENGINEER documented as of this encounter Miscellaneous Notes Telephone Encounter - Claire Bone - 05/14/2017 10:22 AM CDT Left message for Pt regarding upcoming appointment on 05/[address] Guaman. Asked that shebring an updated list of medications and outside records with, and Reminded Pt of appointment time and location. Also, gave Pt our clinic number to call in case she needs to cancel. Reminded to come 15 minutes early, and gave clinic phone number too. documented in this encounter Plan of Treatment Not on filedocumented as of this encounter Visit Diagnoses Not on filedocumented in this encounter Care Teams Trackless Trolley Driver Relationship Specialty Start Date End Date David Meneses MD MD Urology 11/24/16 [address] [place], [place] [id number] Susie Soto, RN Registered Nurse 11/24/16 Shara Guaman MD MD Dermatology 02/16/17 [address] [facility] 98 [place], [place] [id number] Layne Nice MD MD Dermatology 05/14/17 [facility] [address] [place] [address] documented as of this encounter
--- OUTSIDE RECORDS SUMMARY | 2021-12-03 11:49 | XMS_ITS | Encounter Summary ---
:1955 Author Organization [place] Address [facility] [place] [address] Care Team Providers Name Role Phone David Meneses MD Unavailable Susie Soto RN Unavailable Shara Guaman MD Unavailable [phone] Reason for Visit Reason Comments Clinic Care Coordination - Follow-up Encounter Details Date Type Department Care Team Description 04/07/2017 Care Coordination [facility] ANTONIA Purdy Coordination - [place] [phone] Follow-up 9 [facility] (Work) [place] [address] Social History Tobacco Use Types Packs/Day Years Used Date Smoking Tobacco: Never Smokeless Tobacco: Never Alcohol Use Standard Drinks/Week Comments Yes 5 (1 standard drink = 0.6 oz pure alcoho l) Sex Assigned at Date Recorded Female 01/06/2021 11:10 AM INSURANCE APPLICATION INVESTIGATOR documented as of this encounter Progress Notes Rajwinder Titus RN - 04/08/2017 12:24 PM CST Left second message for patient to call back. Rajwinder Titus RN RANCE APPLICATION INVESTIGATOR Rajwinder Titus, RN - 04/07/2017 10:21 AM CST Left voicemail for patient to call back (follow up BP). Rajwinder Titus, RN RANCE APPLICATION INVESTIGATOR documented in this encounter Plan of Treatment Not on filedocumented as of this encounter Visit Diagnoses Not on filedocumented in this encounter Care Teams Junior Network Administrator Relationship Specialty Start Date End Date David Meneses MD MD Urology 11/24/16 [address] [place] [address] Susie Soto, RN Registered Nurse 11/24/16 Shara Guaman MD MD Dermatology 02/16/17 [address] [facility] 98 [place], [place] [phone] documented as of this encounter
--- OUTSIDE RECORDS SUMMARY | 2021-12-03 11:49 | XMS_ITS | Encounter Summary ---
:1955 Author Organization [place] Address [address] [place] [address] Care Team Providers Name Role Phone Carmen Aleman NP Primary Care Provider David Meneses MD Unavailable Susie Soto RN Unavailable Reason for Visit (Routine) - Closed Specialty Diagnoses / Procedures Referred By Contact Refer red To Contact Radiology / Radiology. Diagnoses Casi [place] [id number] U[facility] M[facility] Procedures MR ABDOMEN & PELVIS [facility] [address] [place] [address] Phone: Referral ID Status Reason Start Date Expiration Date Visits Requ ested Visits Authorized [id number] Closed 01/01/2017 01/01/2018 1 1 Encounter Details Date Type Department Care Team Description 01/08/2017 Hospital Encounter [facility] David Retana ight renal mass [facility] Imaging MD Rik [address] [address] [facility] [phone] Social History Tobacco Use Types Packs/Day Years Used Date Smoking Tobacco: Never Smokeless Tobacco: Never Alcohol Use Standard Drinks/Week Comments Yes 0 (1 standard drink = 0.6 oz pure alcoho l) 2-3 times a week Sex Assigned at Date Recorded Female 01/06/2021 11:10 AM GRAIN FARMWORKER documented as of this encounter Medications at Time of Discharge Medication Sig Dispensed Refills Start Date End Date Ascorbic Acid (VITAMIN C) Take 1,500 mg by 0 07/16 100 MG TABS mouth At Bedtime B COMPLEX OR 1 tablet orally 0 at bedtime MULTI-VITAMIN OR TABS 1 TABLET DAILY at 0 bedtime Clayton-3 Fatty Acids (FISH Take 2 capsules 0 OIL PO) by mouth At Bedtime VITAMIN D, CHOLECALCIFEROL, Take 2,500 Units 0 PO by mouth At Bedtime albuterol (ALBUTEROL) 108 Inhale 2 puffs 1 Inhaler 1 201402/19/2017 (90 BASE) MCG/ACT into the lungs inhalerIndications: Mild every 6 hours as persistent asthma needed for shortness of breath / dyspnea or wheezing amLODIPine (NORVASC) 5 MG Take 1 tablet (5 90 tablet 3 12/1601/14/2017 tabletIndications: mg) by mouth Essential hypertension daily amoxicillin (AMOXIL) 500 MG TAKE 2 CAPSULE BY 0 1 02/16/2016 01/28/2017 capsule MOUTH THREE TIMES A DAY DIRECTED ASMANEX 30 METERED DOSES INHALE 1 PUFF 4 11/07/19 17 09/02/2017 110 MCG/INH inhaler ONCE DAILY FOR ASTHMA UTILIZE WHEN OUT OF TOWN AND NEBULIZER IS NOT AVAILABLE ASMANEX 30 METERED DOSES INHALE ONE PUFF 3 201501/28/2017 110 MCG/INH inhaler DAILY FOR ASTHMA, USE WHEN OUT OF TOWN AND NEBULIZER NOT AVAILABLE azithromycin (ZITHROMAX) TAKE 2 TABLETS BY 0 05/201601/28/2017 250 MG tablet MOUTH TODAY, THEN TAKE 1 TABLET DAILY FOR 4 DAYS Cholecalciferol (VITAMIN Take 2,500 Units 0 09/02/2017 D3) 400 UNITS CAPS by mouth clindamycin (CLEOCIN T) 1 % USE 1 SWAB 1 11/27/19 17 09/27/2017 SWAB TOPICALLY DAILY as needed..Katarzyna Soto LPN 1:46 PM on 01/28/2017 hydrochlorothiazide Take 1 capsule 90 capsule 3 01/01/2017 1 03/18/2016 (MICROZIDE) 12.5 MG (12.5 mg) by capsuleIndications: mouth daily Essential hypertension triamcinolone (KENALOG) 0.1 APPLY TWICE A DAY 2 1 02/18/2016 01/28/2017 % cream NEEDED TO AFFECTED AREA vitamin E 400 UNIT capsule 0 7 01/28/2017 documented as of this encounter Progress Notes David Meneses MD - 01/08/2017 11:59 PM CST Ms. Bj العلي, The MRI shows that the 1cm lesion in your right kidney may just be a cyst (which typically is not a worrisome lesion) but at this small size it is not definitive. Thus we will need further follow-up imaging in the future. The MRI also showed a small pancreas lesion. This will need follow-up. I focus primarily on the kidneys so this will likely need to be done with your primary care physician. I look for to seeing you in February to discuss this further. Thank you, Rik Meneses. N FARMWORKER documented in this encounter Plan of Treatment Not on filedocumented as of this encounter Procedures Procedure Name Priority Date/Time Associated Diagnosis Comme nts MR ABDOMEN W/O & W Routine 01/08/2017 2:11 PM Right renal mass Results for this CONTRAST GRAIN FARMWORKER procedure are i n the results section. documented in this encounter Results MR Abdomen w/o & w Contrast (01/08/2017 2:11 PM GRAIN FARMWORKER) Anatomical Region Laterality Modality Abdomen/Pelvis, SUBRAD MR BODY, UMP MR BODY, RAD MR Magnetic Resonance Specimen (Source) Anatomical Location Collection Method / Collectio n Time Received Time / Laterality Volume Impressions 01/08/2017 3:30 PM GRAIN FARMWORKER IMPRESSION: 1. In this patient with a reported histo ry of a 1 cm right renal mass, there is a 1 cm exophytic right lower po le lesion most consistent with renal cyst. No convincing evidence of an enhancing soft tissue component. Comparison with the outside u ltrasound 02/04/[address] from would be helpful if available. 2. Mild pancreatic ductal dilatation and distal pancreatic ductal irregularity as well as a 2 mm dilated s stephanie branch versus side branch IPMN. Institutional follow-up recommenda tions for pancreatic cysts below. 3. Scattered hepatic cysts. [facility] recommendations for asymptomatic pancreatic cysts, modified from international conse nsus guidelines* Size of largest cyst: Less than 1 cm: Follow-up imaging in 6 m onths to 1 year, then lengthen interval to 2-3 years if no change. 1-2 cm: Follow-up imaging at 6 months, t hen yearly for 2 years, then lengthen interval if no change. The optimal initial study or first follo w-up exam is MRI/MRCP performed with intravenous gadolinium co ntrast to allow full cyst characterization. Once characterized, co ntrast is optional on follow-up MRIs. If MRI is contraindicate d, CT with contrast is recommended. GI consultation for possible endoscopic ultrasound is recommended for cysts with the following features: Size > 2 cm, >20% growth on followup, wall thickening or enhancement , mural nodule, duct > 5 mm, or abrupt change in duct caliber with di stal atrophy. GI or surgical consultation is also recommended for sym ptomatic cysts. *Reference: International Consensus Amanda zhou for Management of IPMN and MCN of the pancreas. Pancreatology: 12:(2011); 183-197. I have personally reviewed the examinati on and initial interpretation and I agree with the findings. FRANCOIS HANSON MD Narrative 01/08/2017 3:30 PM GRAIN FARMWORKER EXAMINATION: MR ABDOMEN W/O & W CONTRAST, 01/08/2017 2:11 PM COMPARISON: CT abdomen 10/13/2006 HISTORY: Right renal mass TECHNIQUE: Images were acquired with and without ga dolinium contrast through the abdomen. Multiplanar T2, axial T1 in/out of phase, and diffusion weighted images were obtained without co ntrast. Multiplanar T1-weighted images with fat saturation w ere acquired at the multiple time points following the administration of intravenous contrast. Contrast dose: 6.5cc Gadavist Injected FINDINGS: Right kidney: 1.0 cm exophytic right low er pole T2 hyperintense/T1 hypointense lesion without internal cont rast enhancement on postcontrast images. No abnormal enhance ment within the remainder of the kidney. Punctate probable renal cyst of the posterior right midpole (series 5, image 13). No hydrone phrosis or hydroureter. Left kidney: Punctate midpole renal be ical cyst. No hydronephrosis or hydroureter. No abnormal enhancement. Remainder of abdomen: Scattered hepatic cysts measuring up to 7 mm in the hepatic segment 8 (series 5, image 2 7). Focal steatosis adjacent to the fossa for ligamentum teres. No wo rrisome hepatic lesion. The spleen, adrenal glands appear normal. Ga llbladder is unremarkable. Common bile duct is mildly prominent at 8 mm. Preserved pancreatic T1 signal. Mildly prominent pancreatic duct within the pancreatic body measuring up to 4 mm (series 5, image 17 ) with mild irregularity of the pancreatic duct within the tail. Cys tic dilation adjacent to the main pancreatic duct within the pancreat ic body measuring approximately 2 mm (series 14, image 13) . Duodenal diverticulum from the third portion of the duodenum. No as cites. Lung bases are clear. Visualized bowel is unremarkable. Procedure Note Francois Hanson MD - 01/08/2017Formattin g of this note might be different from the original. EXAMINATION: MR ABDOMEN W/O & W CONTRAST , 01/08/2017 2:11 PM COMPARISON: CT abdomen 10/13/2006 HISTORY: Right renal mass TECHNIQUE: Images were acquired with and without ga dolinium contrast through the abdomen. Multiplanar T2, axial T1 in/out of phase, and diffusion weighted images were obtained without co ntrast. Multiplanar T1-weighted images with fat saturation w ere acquired at the multiple time points following the administration of intravenous contrast. Contrast dose: 6.5cc Gadavist Injected FINDINGS: Right kidney: 1.0 cm exophytic right low er pole T2 hyperintense/T1 hypointense lesion without internal cont rast enhancement on postcontrast images. No abnormal enhance ment within the remainder of the kidney. Punctate probable renal cyst of the posterior right midpole (series 5, image 13). No hydrone phrosis or hydroureter. Left kidney: Punctate midpole renal be ical cyst. No hydronephrosis or hydroureter. No abnormal enhancement. Remainder of abdomen: Scattered hepatic cysts measuring up to 7 mm in the hepatic segment 8 (series 5, image 2 7). Focal steatosis adjacent to the fossa for ligamentum teres. No wo rrisome hepatic lesion. The spleen, adrenal glands appear normal. Ga llbladder is unremarkable. Common bile duct is mildly prominent at 8 mm. Preserved pancreatic T1 signal. Mildly prominent pancreatic duct within the pancreatic body measuring up to 4 mm (series 5, image 17 ) with mild irregularity of the pancreatic duct within the tail. Cys tic dilation adjacent to the main pancreatic duct within the pancreat ic body measuring approximately 2 mm (series 14, image 13) . Duodenal diverticulum from the third portion of the duodenum. No as cites. Lung bases are clear. Visualized bowel is unremarkable. IMPRESSION: 1. In this patient with a reported histo ry of a 1 cm right renal mass, there is a 1 cm exophytic right lower po le lesion most consistent with renal cyst. No convincing evidence of an enhancing soft tissue component. Comparison with the outside u ltrasound 02/04/[address] from -2011 would be helpful if available. 2. Mild pancreatic ductal dilatation and distal pancreatic ductal irregularity as well as a 2 mm dilated s stephanie branch versus side branch IPMN. Institutional follow-up recommenda tions for pancreatic cysts below. 3. Scattered hepatic cysts. [facility] recommendations for asymptomatic pancreatic cysts, modified from international conse nsus guidelines* Size of largest cyst: Less than 1 cm: Follow-up imaging in 6 m onths to 1 year, then lengthen interval to 2-3 years if no change. 1-2 cm: Follow-up imaging at 6 months, t hen yearly for 2 years, then lengthen interval if no change. The optimal initial study or first follo w-up exam is MRI/MRCP performed with intravenous gadolinium co ntrast to allow full cyst characterization. Once characterized, co ntrast is optional on follow-up MRIs. If MRI is contraindicate d, CT with contrast is recommended. GI consultation for possible endoscopic ultrasound is recommended for cysts with the following features: Size > 2 cm, >20% growth on followup, wall thickening or enhancement , mural nodule, duct > 5 mm, or abrupt change in duct caliber with di stal atrophy. GI or surgical consultation is also recommended for sym ptomatic cysts. *Reference: International Consensus Amanda zhou for Management of IPMN and MCN of the pancreas. Pancreatology: 12:(2012); 183-197. I have personally reviewed the examinati on and initial interpretation and I agree with the findings. FRANCOIS HANSON MD David Meneses MD IMG MRI ORDERABLES documented in this encounter Visit Diagnoses Diagnosis Right renal mass Unspecified disorder of kidney and urete r documented in this encounter Administered Medications Inactive Administered Medications - up to 3 most recent administrations Medication Order MAR Action Action Date Dose Rate Site 0.9% sodium chloride BOLUS New Bag 01/08/2017 2:11 PM GRAIN FARMWORKER 100 mLs Intravenous, 100 mL, ONCE, On Wed01/08/17 at 1415, For 1 dose gadobutrol (GADAVIST) injection 7.5 mL Given 01/08/2017 2:10 PM GRAIN FARMWORKER 6.5 mLs 7.5 mL, Intravenous, ONCE, On Wed01/08/17 at 1415, For 1 dose, Supplied by, and administered by MRI. documented in this encounter Care Teams Carry Out Clerk Relationship Specialty Start Date End Date Carmen Aleman NP PCP - General Nurse Practitioner - Family 08/25/1612/17 David Meneses MD Urology 11/24/[address] [place] [address] [id number] Susie Soto RN Registered Nurse 11/24/16 documented as of this encounter
--- OUTSIDE RECORDS SUMMARY | 2021-12-03 11:49 | XMS_ITS | Encounter Summary ---
:1955 Author Organization [place] Address [facility] [place] [address] Care Team Providers Name Role Phone David Meneses MD Unavailable Susie Soto RN Unavailable Shara uGaman MD Unavailable [phone] Layne Nice MD Unavailable Reason for Visit Reason Onset Date Comments Previsit 07/29/2017 Encounter Details Date Type Department Care Team Description 07/29/2017 Telephone [facility] Layne Nice MD Previsit 9 [facility] MED [facility] 3rd Floor [address] [place], [place] [phone] [place] [address] (Wo rk) Social History Tobacco Use Types Packs/Day Years Used Date Smoking Tobacco: Never Smokeless Tobacco: Never Alcohol Use Standard Drinks/Week Comments Yes 5 (1 standard drink = 0.6 oz pure alcoho l) Sex Assigned at Date Recorded Female 01/06/2021 11:10 AM COUNTER MAKER documented as of this encounter Miscellaneous Notes Telephone Encounter - Tamar Velazquez CMA - 07/29/2017 10:45 AM CDT I called and left Megan العلي a voicemail reminding her of upcoming appointment. Clinic number provided of they need to cancel. NAIDA Hernandez documented in this encounter Plan of Treatment Not on filedocumented as of this encounter Visit Diagnoses Not on filedocumented in this encounter Care Teams Manager Instrumentation Relationship Specialty Start Date End Date David Meneses MD MD Urology 11/24/16 [address] [place], [place] [address] Susie Soto, RN Registered Nurse 11/24/16 Shara Guaman MD MD Dermatology 02/16/17 [address] [facility] 98 [place], [place] [phone] Layne Nice MD MD Dermatology 05/14/17 [facility] [address] [place] [address] documented as of this encounter
--- OUTSIDE RECORDS SUMMARY | 2021-12-03 11:49 | XMS_ITS | Encounter Summary ---
:1955 Author Organization [place] Address [address] [place] [address] Care Team Providers Name Role Phone David Meneses MD Unavailable Susie Soto RN Unavailable Encounter Details Date Type Department Care Team Description 01/15/2017 Orders Only [facility] Dysuria Laboratory [address] [place] [address] Social History Tobacco Use Types Packs/Day Years Used Date Smoking Tobacco: Never Smokeless Tobacco: Never Alcohol Use Standard Drinks/Week Comments Yes 5 (1 standard drink = 0.6 oz pure alcoho l) Sex Assigned at Date Recorded Female 01/06/2021 11:10 AM COMBATANT DIVER QUALIFIED documented as of this encounter Plan of Treatment Not on filedocumented as of this encounter Procedures Procedure Name Priority Date/Time Associated Diagnosis Comme nts URINE MICROSCOPIC Routine 01/15/2017 1:35 PM Dysuria Resu lts for this COMBATANT DIVER QUALIFIED procedure are i n the results section. documented in this encounter Results (ABNORMAL) Urine Microscopic (01/15/2017 1:35 PM COMBATANT DIVER QUALIFIED) P athologist Signature WBC Urine O - 2 OTO2^O - 2 01/15/2017 [place] [facility] 1:45 PM COMBATANT DIVER QUALIFIED [facility] RBC Urine O - 2 OTO2^O - 2 01/15/2017 [place] [facility] 1:45 PM COMBATANT DIVER QUALIFIED [facility] Bacteria Urine Few (A) NEG^Negati 01/15/2017 [place] [facility] 1:45 PM COMBATANT DIVER QUALIFIED [facility] Comment Urine Yellow 01/15/2017 [place] 1:45 PM COMBATANT DIVER QUALIFIED [facility] Comment: Midstream Urine Clear Interfering substances, dipstick not don e Specimen Anatomical Collection Method Collection Time Receive d Time (Source) Location / / Volume Laterality 01/15/2017 1:35 PM 7 1:40 COMBATANT DIVER QUALIFIED PM COMBATANT DIVER QUALIFIED Jennifer Burton MD LAB - URINE ORDERABLES Performing Organization Address City/State/ZIP Code Phon e Number [facility] [address] [place] [address] documented in this encounter Visit Diagnoses Diagnosis Dysuria documented in this encounter Care Teams Senior Technical Manager Relationship Specialty Start Date End Date David Meneses MD MD Urology 11/24/[address] [place] [address] Susie Soto, RN Registered Nurse 11/24/16 documented as of this encounter
--- OUTSIDE RECORDS SUMMARY | 2021-12-03 11:49 | XMS_ITS | Encounter Summary ---
:1955 Author Organization [place] Address [facility] [place] [address] Care Team Providers Name Role Phone Carmen Aleman MANAGER ASSESSMENT Primary Care Provider David Meneses MD Unavailable Susie Soto RN Unavailable Reason for Visit Reason Onset Date Comments Hypertension 01/01/2017 Encounter Details Date Type Department Care Team Description 01/01/2017 Telephone [facility] Carmen Aleman, RAMONA Hypertension [facility] [address] [place] [address] [address] [phone] [place], [place] [address] (Wo rk) Social History Tobacco Use Types Packs/Day Years Used Date Smoking Tobacco: Never Smokeless Tobacco: Never Alcohol Use Standard Drinks/Week Comments Yes 0 (1 standard drink = 0.6 oz pure alcoho l) 2-3 times a week Sex Assigned at Date Recorded Female 01/06/2021 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 She stopped this due to side effects but did not report this or f/u with nephrology. BP today 175/97 Pt advised to call nephrology nurse as she was to be check BP on regular basis and following up withthem with readings. She has not done this either. If nephrology feels she needs to see PCP then call back for appt. Pt expressed understanding and acceptance of the plan. Pt had no further questions at this time. Advised can call back to clinic at any time with concerns. Jaci Martin RN SORTER documented in this encounter Plan of Treatment Not on filedocumented as of this encounter Visit Diagnoses Not on filedocumented in this encounter Care Teams Safety Belt Installer Relationship Specialty Start Date End Date Carmen Aleman, MANAGER ASSESSMENT PCP - General Nurse Practitioner - Family 08/25/1612/17 David Meneses MD Urology 11/24/[address] [place] [address] Susie Soto, ANTONIA Registered Nurse 11/24/16 documented as of this encounter
--- OUTSIDE RECORDS SUMMARY | 2021-12-03 11:49 | XMS_ITS | Encounter Summary ---
:1955 Author Organization [place] Address [address] [place] [address]. [place] [address] Care Team Providers Name Role Phone Carmen Aleman MOTEL FRONT DESK ATTENDANT Primary Care Provider David Meneses MD Unavailable Susie Soto RN Unavailable Reason for Visit Reason Onset Date Comments Pre Visit Planning - Done 12/28/2016 New patient co nsult for renal cyst. Records available in [facility]. Encounter Details Date Type Department Care Team Description 12/28/2016 PRE VISIT [facility] Urology and David Meneses Pre Visit Planning - Inst for Prostate and MD Rik Done (New patient [facility] [address] [place] [address] consult for renal cyst. 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 Records available in [employer] LING AND ROLLING SUPERVISOR documented in this encounter Plan of Treatment Not on filedocumented as of this encounter Visit Diagnoses Not on filedocumented in this encounter Care Teams Motorcycle Repairer Relationship Specialty Start Date End Date Carmen Aleman NP PCP - General Nurse Practitioner - Family 08/25/1612/17 David Meneses MD Urology 11/24/[address] [place] [address] [id number] Susie Soto RN Registered Nurse 11/24/16 documented as of this encounter
--- OUTSIDE RECORDS SUMMARY | 2021-12-03 11:49 | XMS_ITS | Encounter Summary ---
:1955 Author Organization [place] Address [address] [place] [address] Care Team Providers Name Role Phone David Meneses MD Unavailable Susie Soto RN Unavailable Shara Guaman MD Unavailable [phone] Layne Nice MD Unavailable Reason for Visit Reason Onset Date Comments [facility] Intake Form 09/02/2017 Encounter Details Date Type Department Care Team Description 09/02/2017 Telephone M [facility] Pancreas and None Advanc ed Endoscopy Internal Biliary Clinic Intake Form [facility] [address]th [place], [place] [phone] Social History Tobacco Use Types Packs/Day Years Used Date Smoking Tobacco: Never Smokeless Tobacco: Never Alcohol Use Standard Drinks/Week Comments Yes 5 (1 standard drink = 0.6 oz pure alcoho l) Sex Assigned at Date Recorded Female 01/06/2021 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 The direct phone number was left for the patient to call back at their earliest convenience. Patient is scheduled for EUS with Dr. Landaverde. This RNCC discussed with the patient the need for a pre-op physical with her primary care provider. ?? Patient called and is amenable to plan as noted and aware of the following: Procedure explained to patient. This is a non-urgent procedure. They can expect a call for date and time for procedure. They will need a boom truck driver, someone to stay with them for 24 hours and to stay in town for 24 hours post procedure, rational explained. Will get pre-op physical done locally and will fax a copy to us [facility] Fax number given. [phone] ?? Blood thinner - Denies ASA - Denies Diabetic - Denies A pre-op nurse will call 1-2 days prior to the procedure. Is advised to be NPO/solid food at midnight before the procedure in the event the procedure time is moved up. Ok to drink clear liquids up to 4 hours prior to procedure. ?? Advised post procedure to start with clear liquids and advance diet slowly as tolerated. It is normal to have a sore throat after the procedure. May also have some muscle tenderness from positioning on the table. ?? Aware this RN will call within 2-3 days post procedure to see how they are doing. ?? Verbalized understanding of all instructions. All questions answered. Contact information verified for future questions/concerns. Telephone Encounter - Fina Soto RN - 09/09/2017 2:10 PM CDT The patient was called in regard to the below information. The direct phone number was left for the patient to call back at their earliest convenience. Patient needs to be scheduled for an EUS with Dr. Akhil Irving RN Coordinator Dr. Landaverde [facility] Telephone Encounter - Ramona Hall RN - 09/03/2017 10:10 AM CDT [facility] Referring provider: Referred to: [facility] Provider Group Provider Requested: 09/02/2017 ?? Referral Received: ?? Records received: In [facility] ?? Images received: In [facility] Evaluation for: Pancreatic duct dilation ?? Clinical History (per rate reviewer): MRI 09/01/2017: MRCP: Borderline size of the pancreatic duct in the body measuring 4 mm. Ductal side branch visualization in the pancreatic tail. Slight irregularity of the pancreatic duct in the distal body/proximal tail. No biliary dilatation. MD review date:??09/07/[address] Estrella for review MD Decision for clinic consultation/Orders: ? Referral updates/Patient contacted: Telephone Encounter - Lea Barclay - 09/02/2017 11:04 AM CDT [facility] Phone Message May a detailed message be left on voicemail: yes Reason for Call: Other: . Referring provider: Dr. Shell Tabares Providers RNCC contact: [phone] Requested provider: None Indication/Diagnosis for consultation: Pancreatic duct dilated Is diagnosis on list of approved diagnosis: Yes Has patient been evaluated in clinic or had a procedure [facility] provider in the last 5 years: No Has patient been evaluated by another Crime Scene Technician? No Imaging completed: CT scan No MRI Yes - Internal on 09/01/2017 Procedures: Upper Endoscopy/EGD Yes - Internal on 03/14/2012 Endoscopic Ultrasound/EUS No ERCP No Colonoscopy No Are images able/being pushed to our system? Yes Is patient aware of request for clinic consultation and ok to be contacted to schedule? Yes Action Taken: Message routed to: [facility] documented in this encounter Plan of Treatment Not on filedocumented as of this encounter Visit Diagnoses Diagnosis Common bile duct dilatation - Primary Other specified disorders of biliary tra ct documented in this encounter Care Teams Senior Hardware Engineer Relationship Specialty Start Date End Date David Meneses MD MD Urology 11/24/16 [address] [place], [place] [phone] Susie Soto, RN Registered Nurse 11/24/16 Shara Guaman MD MD Dermatology 02/16/17 [address] [facility] [address] [place] [address] Layne Nice MD MD Dermatology 05/14/17 [facility] [address] [place] [address] documented as of this encounter
--- OUTSIDE RECORDS SUMMARY | 2021-12-03 11:49 | XMS_ITS | Encounter Summary ---
:1955 Author Organization [place] Address [address] [place] [address] Care Team Providers Name Role Phone David Meneses MD Unavailable Susie Soto RN Unavailable Shara Guaman MD Unavailable [phone] Layne Nice MD Unavailable Encounter Details Date Type Department Care Team Description 09/02/2017 Orders Only [facility] Pancreatic duct dilated [address] Floor [place] [phone] Social History Tobacco Use Types Packs/Day Years Used Date Smoking Tobacco: Never Smokeless Tobacco: Never Alcohol Use Standard Drinks/Week Comments Yes 5 (1 standard drink = 0.6 oz pure alcoho l) Sex Assigned at Date Recorded Female 01/06/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 documented in this encounter Results Hepatic panel (09/02/2017 11:19 AM CDT) P athologist Signature Bilirubin Direct 0.2 0.0 - 0.2 09/02/2017 [facility] mg/dL 11:56 AM CDT [facility] Bilirubin Total 1.0 0.2 - 1.3 09/02/2017 [facility] mg/dL 11:56 AM CDT [facility] Albumin 4.2 3.4 - 5.0 09/02/2017 [facility] g/dL 11:56 AM CDT [facility] Protein Total 8.0 6.8 - 8.8 09/02/2017 [facility] g/dL 11:56 AM CDT [facility] Alkaline 78 40 - 150 09/02/2017 [facility] Phosphatase U/L 11:56 AM CDT [facility] ALT 20 0 - 50 U/L 09/02/2017 [facility] 11:56 AM CDT [facility] AST 13 0 - 45 U/L 09/02/2017 [facility] 11:56 AM CDT [facility] Specimen Anatomical Collection Method Collection Time Receive d Time (Source) Location / / Volume Laterality Blood specimen 09/02/2017 11:19 8 (specimen) AM CDT 11:20 AM CDT Shell Tabares MD LAB - BLOOD ORDERABLES Performing Organization Address City/State/ZIP Code Phon e Number [address] [address] [facility] documented in this encounter Visit Diagnoses Diagnosis Pancreatic duct dilated Other specified disease of pancreas documented in this encounter Care Teams Fishing Rod Mechanic Relationship Specialty Start Date End Date David Meneses MD MD Urology 11/24/[address] [place] [address] [id number] Susie Soto, RN Registered Nurse 11/24/16 Shara Guaman MD MD Dermatology 02/16/[address] [place] [address] 98 [place], [place] [phone] Layne Nice MD MD Dermatology 05/14/17 [facility] [address] [place] [address] [phone] documented as of this encounter
--- OUTSIDE RECORDS SUMMARY | 2021-12-03 11:49 | XMS_ITS | Encounter Summary ---
:1955 Author Organization [place] Address [address] [place] [address] Care Team Providers Name Role Phone David Meneses MD Unavailable Susie Soto RN Unavailable Shara Guaman MD Unavailable [phone] Layne Nice MD Unavailable Reason for Visit Reason Onset Date Comments Call Back 07/14/2017 Please follow up wit h pt, she would look like to know if Dr. Ricci left for g ood or is on leave. Encounter Details Date Type Department Care Team Description 07/14/2017 Telephone [facility] Primary Care Shawn Ricci MD Call Back (Please Clinic [address] [facility] [address] follow up with pt, she [address] [facility] [address] [place], [place] would look like to 4th Floor [address] 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 Ricci is a [facility]. EJ RIVERA at 9:18 AM on 07/15/2017. Telephone Encounter - Mary Crowley - 07/14/2017 4:49 PM CDT [facility] Center Phone Message May a detailed message be left on voicemail: yes Reason for Call: Other: Please follow up with pt, she would look like to know if Dr. Ricci left for good or is on leave. Action Taken: Message routed to: [facility] documented in this encounter Plan of Treatment Not on filedocumented as of this encounter Visit Diagnoses Not on filedocumented in this encounter Care Teams Channel Process Supervisor Relationship Specialty Start Date End Date David Meneses MD MD Urology 11/24/16 [address] [place] [address] Susie Soto, RN Registered Nurse 11/24/16 Shara Guaman MD MD Dermatology 02/16/17 [address] [facility] [address] [place], [place] [address] Layne Nice MD MD Dermatology 05/14/17 [facility] [address] [place] [address] documented as of this encounter
--- OUTSIDE RECORDS SUMMARY | 2021-12-03 11:50 | XMS_ITS | Encounter Summary ---
:1955 Author Organization [place] Address [address] [place] [address] Care Team Providers Name Role Phone Bj Pelletier MD Primary Care Provider Encounter Details Date Type Department Care Team Description 03/14/2012 External Order [facility] Yuridia Bach Results Surgery Clinic MD Anthony [address], [address] [place] [address] Social History Tobacco Use Types Packs/Day Years Used Date Smoking Tobacco: Never Alcohol Use Standard Drinks/Week Comments Yes 0 (1 standard drink = 0.6 oz pure alcoho l) 2-3 times a week Sex Assigned at Date Recorded Female 01/06/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 Patient Reported PROCEDURES Surgical pathology exam (09/28/2006) Narrative This result has an attachment that is no t available. Patient Reported LAB - [facility] AP documented in this encounter Visit Diagnoses Not on filedocumented in this encounter Care Teams Digital Project Coordinator Relationship Specialty Start Date End Date Bj Pelletier MD PCP - General 10/06/02 08/22/16 XXX RESIGNED XXX [address] [facility] [address] [place] [address] documented as of this encounter
--- OUTSIDE RECORDS SUMMARY | 2021-12-03 11:50 | XMS_ITS | Encounter Summary ---
:1955 Author Organization [place] Address [address] [place] [address] Care Team Providers Name Role Phone Bj Pelletier MD Primary Care Provider Reason for Visit Reason Onset Date Comments Refill Request 05/11/2014 Encounter Details Date Type Department Care Team Description 04/25/2014 Refill [facility] Bj Pelletier MD Refill Request [place] XXX RESIGNED XXX [address] 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 They are requesting more specific dosing instructions forVentolin inhaler. Current prescription states 2 puff as needed, they need an updated prescription with how often pt can use the inhaler. Please update prescription. documented in this encounter Plan of Treatment Not on filedocumented as of this encounter Visit Diagnoses Diagnosis ASTHMA - MILD PERSISTENT - Primary Unspecified asthma documented in this encounter Care Teams Bung Driver Relationship Specialty Start Date End Date Bj Pelletier MD PCP - General 10/06/02 08/22/16 XXX RESIGNED XXX [address] [facility] [address] [place] [phone] documented as of this encounter
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
--- OUTSIDE RECORDS SUMMARY | 2021-12-03 11:50 | XMS_ITS | Encounter Summary ---
:1955 Author Organization [place] Address [address] [place] [address] Care Team Providers Name Role Phone Bj Pelletier MD Primary Care Provider Encounter Details Date Type Department Care Team Description [facility] [place] XXX RESIGNED XXX [address] [place] [phone] (Wo rk) Social History Tobacco Use Types Packs/Day Years Used Date Smoking Tobacco: Never Alcohol Use Standard Drinks/Week Comments Yes 0 (1 standard drink = 0.6 oz pure alcoho l) 2-3 times a week Sex Assigned at Date Recorded Female 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 Provider Outside PROCEDURES documented in this encounter Visit Diagnoses Not on filedocumented in this encounter Care Teams Rock Picker Relationship Specialty Start Date End Date Bj Pelletier MD PCP - General 10/06/02 08/22/16 XXX RESIGNED XXX [address] [facility] [address] [place] [address] documented as of this encounter
--- OUTSIDE RECORDS SUMMARY | 2021-12-03 11:50 | XMS_ITS | Encounter Summary ---
:1955 Author Organization [place] Address [facility] [place] [address] Care Team Providers Name Role Phone Carmen Aleman ABRASIVE GRADER Primary Care Provider Reason for Visit Reason Onset Date Comments Panel Management 09/02/2016 Encounter Details Date Type Department Care Team Description 09/02/2016 Telephone [facility] Carmen Aleman, ABRASIVE GRADER Panel Management [facility] [address] [place] [address] [address] [phone] [place], [place] [address] (Wo rk) Social History Tobacco Use Types Packs/Day Years Used Date Smoking Tobacco: Never Smokeless Tobacco: Never Alcohol Use Standard Drinks/Week Comments Yes 0 (1 standard drink = 0.6 oz pure alcoho l) 2-3 times a week Sex Assigned at Date Recorded Female 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 She states her last Mammo was in January 2016 with [facility] and it was normal. Ashok Horn Emergency Veterinary Technician 09/02/16 Telephone Encounter - Zenaida Ryan - 09/02/2016 3:30 PM CDT Panel Management Review Patient has the following on her problem list: Asthma review ACT Total Scores 03/25/2016 ACT TOTAL SCORE (Goal Greater than or Equal to 20) 24 In the past 12 months, how many times did you visit the emergency room for your asthma without beingadmitted to the hospital? 0 In the past 12 months, how many times were you hospitalized overnight because of your asthma? 0 1. Is Asthma diagnosis on the Problem List? Yes 2. Is Asthma listed on Health Maintenance? Yes 3. Patient is due for: ACT and AAP Hypertension Last three blood pressure readings: BP Readings from Last 3 Encounters: 08/26/16 130/80 08/24/16 138/84 03/25/16 110/70 Blood pressure: PASSED HTN Guidelines: Age 18-59 BP range: Less than 140/90 Age 60-85 with Diabetes: Less than 140/90 Age 60-85 without Diabetes: less than 150/90 Composite cancer screening Chart review shows that this patient is due/due soon for the following Mammogram Summary: Patient is due/failing the following: MAMMOGRAM Action needed: Patient needs referral/order: mammogram Type of outreach: Phone, left message for patient to call back. Questions for provider review: None NAIDA Morales Chart routed to . documented in this encounter Plan of Treatment Not on filedocumented as of this encounter Visit Diagnoses Not on filedocumented in this encounter Care Teams Certified Phlebotomist Relationship Specialty Start Date End Date Carmen Aleman NP PCP - General Nurse Practitioner - Family 08/25/1612/17 documented as of this encounter
--- OUTSIDE RECORDS SUMMARY | 2021-12-03 11:50 | XMS_ITS | Encounter Summary ---
:1955 Author Organization [facility] Address [address] [place] [id number] Care Team Providers Name Role Phone Clinic - [facility] Primary Care Provider Reason for Visit Reason Comments Chest Pain Auth/Cert Specialty Diagnoses / Procedures Referred By Contact Refer red To Contact Med Surg Diagnoses Acute chest pain Chest pain Observation Dept [address] [place], [place] [address] Phone: Referral ID Status Reason Start Date Expiration Date Visits Requ ested Visits Authorized 08/24/2016 08/24/2017 Encounter Details Date Type Department Care Team Description 08/23/2016 - Emergency [facility] Jn Hill MD [facility] [address] [place] [address] Acute chest pain 08/24/2016 [facility] Kenneth Beltran MD [address] [place] [address] [address] [place] [address] Social History Tobacco Use Types Packs/Day Years Used Date Smoking Tobacco: Never Smokeless Tobacco: Never Alcohol Use Standard Drinks/Week Comments Yes 0 (1 standard drink = 0.6 oz pure alcoho l) 2-3 times a week Sex Assigned at Date Recorded Female 01/06/2021 11:10 AM [employer] documented as of this encounter Last Filed Vital Signs Vital Sign Reading Time Taken Comments Blood Pressure 138/84 08/24/2016 10:36 AM CDT Pulse 74 08/24/2016 10:36 AM CDT Temperature 36.1 ??C (97 ??F) 08/24/2016 10:36 AM CDT Respiratory Rate 16 08/24/2016 10:36 AM CDT Oxygen Saturation 95% 08/24/2016 10:36 AM CDT Inhaled Oxygen Concentration - - Weight 62 kg (136 lb 9.6 oz) 08/24/2016 12:00 AM CDT Height 165.1 cm (5' 5) 08/24/2016 12:00 AM CDT Body Mass Index 22.73 08/24/2016 12:00 AM CDT documented in this encounter Discharge Summaries Melani Neves PA-C - 08/24/2016 11:01 AM CDT [facility] Outpatient / Observation Unit Discharge Summary Megan العلي Date of : 1955 Age: [age] year old Date of Admission: 08/23/2016 Date of Discharge: 08/24/2016 Admitting Physician: Kenneth Pitts MD Discharge Physician: Melani Neves PA-C Discharging Service: Hospitalist Primary Provider: [facility] Primary Care Physician Primary Discharge Diagnoses: Megan العلي was admitted on 08/23/2016 for concerns of acute chest pain. 1. Chest pain: ruled out ACS. Suspect non-cardiac in nature and possibly related to acid reflux. Secondary Discharge Diagnoses: Past Medical History: Diagnosis Date ??? Essential hypertension 01/14/2015 ??? HTN (hypertension) ??? Mild persistent asthma ??? Stricture and stenosis of esophagus Dx , [place] [facility] ??? Urethral stricture unspecified Code Status: Full Code Brief Hospital Summary: Reason for your hospital stay You were admitted due to concerns of chest pain. Your workup included monitoring on telemetry, serial troponins which were negative, and exercise stress test that was normal. Please refer to initial admission history and physical for further details. Briefly, Megan العلي was admitted on 08/23/2016 for concerns of acute chest pain. Initial work up in the ED did not reveal evidence of STEMI or findings consistent with unstable angina or acutecoronary ischemia. Pt was registered to the Observation Unit for further evaluation. Pt ruled out with serial troponins, underwent Stress Echo that did not show evidence of significant coronary ischemia. Labs were reviewed and significant results addressed. On the day of discharge, pt was pain free, with no complaints of pain. Medications were reviewed and adjustments made as necessary. Pt is instructed to follow up as below. Significant Lab During Hospitalization: Recent Labs Lab 08/24/16 0618 08/24/16 0218 08/23/16 2139 TROPONIN -- -- 0.00 TROPI <0.015The 99th percentile for upper reference range is 0.045 ug/L. Troponin values in the range of 0.045 - 0.120 ug/L may be associated with risks of adverse clinical events. <0.015The 99thpercentile for upper reference range is 0.045 ug/L. Troponin values in the range of 0.045 - 0.120 ug/L may be associated with risks of adverse clinical events. <0.015The 99th percentile for upper reference range is 0.045 ug/L. Troponin values in the range of 0.045 - 0.120 ug/L may be associated with risks of adverse clinical events. Significant Imaging During Hospitalization: Results for orders placed or performed during the hospital encounter of 08/23/16 Chest XR, PA & LAT Narrative CHEST TWO VIEWS 08/23/2016 10:13 PM HISTORY: chest pain COMPARISON: 11/16/2013 chest x-ray Impression IMPRESSION: No acute disease. Lungs clear. Heart and pulmonary vessels within normal limits. No pleural effusion. LEENA SMYTH MD Exercise stress: Interpretation Summary 1. Above average exercise capacity with target HR achieved. 2. The patient exhibited no chest pain during exercise. 3. This was a normal stress EKG with no evidence of stress-induced ischemia. 4. Rest echo: The resting phase of the study was normal. No regional wall motion abnormalities noted. At least mild-moderate mitral regurgitation. 5. Stress echo: This was a normal stress echocardiogram with no evidence of stress-induced ischemia. ?? No previous study for comparison. Pending Results: None Consultations This Hospital Stay: No consultations were requested during this admission Discharge Instructions and Follow-Up: Follow-up Appointments Follow up with primary care provider, [employer], within 7 days for hospital follow- up and discuss blood pressure management. No follow up labs or test are needed. Discharge Disposition: Discharged to home Discharge Medications: Current Discharge Medication List CONTINUE these medications which have NOT CHANGED Details VITAMIN D, CHOLECALCIFEROL, PO Take 2,500 Units by mouth At Bedtime [place]-3 Fatty Acids (FISH OIL PO) Take 2 capsules by mouth At Bedtime Ascorbic Acid (VITAMIN C) 100 MG TABS Take 1,500 mg by mouth At Bedtime hydrochlorothiazide (HYDRODIURIL) 25 MG tablet Take 25 mg by mouth daily ASMANEX 30 METERED DOSES 110 MCG/INH inhaler INHALE ONE PUFF DAILY FOR ASTHMA, USE WHEN OUT OF TOWN AND NEBULIZER NOT AVAILABLE Refills: 3 albuterol (ALBUTEROL) 108 (90 BASE) MCG/ACT inhaler Inhale 2 puffs into the lungs every 6 hours as needed for shortness of breath / dyspnea or wheezing Qty: 1 Inhaler, Refills: 1 Associated Diagnoses: Mild persistent asthma MULTI-VITAMIN OR TABS 1 TABLET DAILY at bedtime B COMPLEX OR 1 tablet orally at bedtime Allergies: Allergies Allergen Reactions ??? Cat Hair [Cats] ??? Sulfa Drugs Rash ??? Ultram [Tramadol Hcl] Headache Weirdness And sick nasuea, vomiting Condition and Physical on Discharge: Discharge condition: Stable Vitals: Blood pressure 138/84, pulse 74, temperature 97 ??F (36.1 ??C), temperature source Oral, resp. rate 16, height 1.651 m (5' 5), weight 62 kg (136 lb 9.6 oz), last menstrual period 03/29/2005, SpO2 95 %, not currently . 136 lbs 9.6 oz GENERAL: Comfortable. PSYCH: pleasant, oriented, No acute distress. HEENT: PERRLA. Normal conjunctiva, normal hearing, nasal mucosa and oropharynx are normal. NECK: Supple, no neck vein distention, adenopathy or bruits, normal thyroid. HEART: Normal S1, S2 with no murmur, no pericardial rub, gallops or S3 or S4. LUNGS: Clear to auscultation, normal respiratory effort. No wheezing, rales or ronchi. ABDOMEN: Soft, no hepatosplenomegaly, normal bowel sounds. Non-tender, non distended. EXTREMITIES: No pedal edema, +2 radial pulses bilateral and equal. SKIN: Dry to touch, No rash, wound or ulcerations. NEUROLOGIC: CN 2-12 intact, BL 5/5 symmetric upper and lower extremity strength, sensation is intactwith no focal deficits. Melani Neves PA-C documented in this encounter Medications at Time of Discharge Medication Sig Dispensed Refills Start Date End Date Ascorbic Acid (VITAMIN C) Take 1,500 mg by 0 07/16 100 MG TABS mouth At Bedtime B COMPLEX OR 1 tablet orally 0 at bedtime MULTI-VITAMIN OR TABS 1 TABLET DAILY at 0 bedtime [place]-3 Fatty Acids (FISH Take 2 capsules 0 OIL PO) by mouth At Bedtime VITAMIN D, CHOLECALCIFEROL, Take 2,500 Units 0 PO by mouth At Bedtime albuterol (ALBUTEROL) 108 Inhale 2 puffs 1 Inhaler 1 201402/19/2017 (90 BASE) MCG/ACT into the lungs inhalerIndications: Mild every 6 hours as persistent asthma needed for shortness of breath / dyspnea or wheezing ASMANEX 30 METERED DOSES 110 INHALE ONE PUFF 3 01/28/2017 MCG/INH inhaler DAILY FOR ASTHMA, USE WHEN OUT OF TOWN AND NEBULIZER NOT AVAILABLE hydrochlorothiazide Take 25 mg by 3 08/07/2016 (HYDRODIURIL) 25 MG tablet mouth daily hydrochlorothiazide Take 25 mg by 0 06/20/2015 (HYDRODIURIL) 25 MG tablet mouth daily vitamin E 400 UNIT capsule 0 7 01/28/2017 documented as of this encounter Progress Notes Jodi Johnson RT - 08/24/2016 7:38 AM CDT Stress echo completed. documented in this encounter H&P Notes Kenneth Pitts MD - 08/23/2016 11:51 PM CDT [facility] Hospitalist Admission Note Name: Megan العلي Date of : 1955 Age: [age] year old Date of admission: 08/23/2016 Primary care provider: Clinic, [facility] Assessment and Plan: Megan العلي is a 60 year old female with prior hx of mild persistent asthma, hypertension who presented in the ED due to earlier episode of chest pain of which she describe as pressure like sensation with intensity of 5/10 accompanied with left shoulder and arm pain 1. Chest pain 2. Hx of hypertension 3. Hx of GERD 4. Hx of mild persistent asthma not in exacerbation [place] under observation. Chest pain protocol. NTG prn if with recurrence. Troponin trend, tele-monitor. Stress echo in AM if ruled out for ACS Resume prior home hypertension medications. ASA 81 mg daily. Code status: full Admit to OBS Prophylaxis: ambulate Disposition: home in 1 day Chief Complaint: Left sie chest pain and arm pain of few hours duration Source of Information: Patient with good reliability Discussion with ED physician Review of E chart records History of Present Illness: Megan العلي is a 60 year old female with prior hx of mild persistent asthma, hypertension who presented in the ED due to earlier episode of chest pain of which she describe as pressure like sensation with intensity of 5/10 accompanied with left shoulder and arm pain. This occurred while she was sitting on her deck and has no accompanying symptoms of nausea/vomiting, cough, fever, chills norabdominal pain. She can usually walk for 2-3 miles and climb several flight of stairs with no prior occurrence of any chest pain/SOB. In the ED she was given with ASA and NTG that provided some relief of symptoms. She has stable hemodynamics, normal troponin and chest pain free now. Past Medical History: Past Medical History: Diagnosis Date ??? Essential hypertension 01/14/2015 ??? HTN (hypertension) ??? Mild persistent asthma ??? Stricture and stenosis of esophagus Dx , [place] [facility] ??? Urethral stricture unspecified Past Surgical History: Past Surgical History: Procedure Laterality Date ??? C NONSPECIFIC PROCEDURE x3 1979,1984,1994 ??? HERNIA REPAIR 2 hernia repairs ??? HYSTERECTOMY, PAP NO LONGER INDICATED 2007 ??? STENT kidney Social History: Social History Substance Use Topics ??? Smoking status: Never Smoker ??? Smokeless tobacco: Never Used ??? Alcohol use Yes Comment: 2-3 times a week Family History: Family history was fully reviewed and non-contributory in this case. Allergies: Allergies Allergen Reactions ??? Cat Hair [Cats] ??? Sulfa Drugs Rash ??? Ultram [Tramadol Hcl] Headache Weirdness And sick nasuea, vomiting Medications: Prior to Admission medications Medication Sig Last Dose Taking? Auth Provider VITAMIN D, CHOLECALCIFEROL, PO Take 2,500 Units by mouth At Bedtime 08/23/2016 at Unknown time Yes Unknown, Entered By History [place]-3 Fatty Acids (FISH OIL PO) Take 2 capsules by mouth At Bedtime 08/22/2016 at Unknown time Yes Unknown, Entered By History Ascorbic Acid (VITAMIN C) 100 MG TABS Take 1,500 mg by mouth At Bedtime 08/22/2016 at Unknown time YesReported, Patient hydrochlorothiazide (HYDRODIURIL) 25 MG tablet Take 25 mg by mouth daily 08/22/2016 at hs Yes Reported, Patient ASMANEX 30 METERED DOSES 110 MCG/INH inhaler INHALE ONE PUFF DAILY FOR ASTHMA, USE WHEN OUT OF TOWN AND NEBULIZER NOT AVAILABLE 08/23/2016 at AM Yes Reported, Patient albuterol (ALBUTEROL) 108 (90 BASE) MCG/ACT inhaler Inhale 2 puffs into the lungs every 6 hours as needed for shortness of breath / dyspnea or wheezing 08/22/2016 at Unknown time Yes Bj Pelletier MD MULTI-VITAMIN OR TABS 1 TABLET DAILY at bedtime Past Month at Unknown time Yes Reported, Patient B COMPLEX OR 1 tablet orally at bedtime 08/22/2016 at Unknown time Yes Reported, Patient Review of Systems: A Comprehensive greater than 10 system review of systems was carried out. Pertinent positives and negatives are noted above. Otherwise negative for contributory information. Physical Exam: Blood pressure 144/88, temperature 98 ??F (36.7 ??C), temperature source Oral, resp. rate 29, kg (130 lb), last menstrual period 03/29/2005, SpO2 100 %, not currently . Wt Readings from Last 1 Encounters: 08/23/16 59 kg (130 lb) Exam: GENERAL: No apparent distress. Awake, alert, and fully oriented. HEENT: Normocephalic, atraumatic. Extraocular movements intact. CARDIOVASCULAR: Regular rate and rhythm without murmurs or rubs. No JVD PULMONARY: Clear to auscultation, no wheezes, crackles ABDOMINAL: Soft, non-tender, non-distended. Bowel sounds normoactive. No hepatosplenomegaly. EXTREMITIES: No cyanosis or clubbing. No edema. NEUROLOGICAL: CN 2-12 grossly intact, awake and alert x3, spontaneous and coherent speech. no focal neurological deficits. DERMATOLOGICAL: No rash, ulcer, ecchymoses, jaundice. Psych: not agitation, not combative, pleasant mood Data: EKG: NSR with incomplete RBBB Imaging: Recent Results (from the past 48 hour(s)) Chest XR, PA & LAT Narrative CHEST TWO VIEWS 08/23/2016 10:13 PM HISTORY: chest pain COMPARISON: 11/16/2013 chest x-ray Impression IMPRESSION: No acute disease. Lungs clear. Heart and pulmonary vessels within normal limits. No pleural effusion. LEENA SMYTH MD Labs: No results for input(s): CULT in the last 168 hours. Recent Labs Lab 08/23/16 213 NA 141 POTASSIUM 3.1* CHLORIDE 104 CO2 30 ANIONGAP 7 GLC 95 BUN 11 CR 0.71 GFRESTIMATED 84 GFRESTBLACK >90African [place] GFR Calc EDMOND 8.8 Recent Labs Lab 08/23/16 213 WBC 9.9 HGB 12.8 HCT 37.9 MCV 93 PLT 312 Recent Labs Lab 08/23/16 2139 GLC 95 No results for input(s): INR in the last 168 hours. Recent Labs Lab 08/23/162138 TROPONIN 0.00 TROPI <0.015The 99th percentile for upper reference range is 0.045 ug/L. Troponin values in the range of 0.045 - 0.120 ug/L may be associated with risks of adverse clinical events. documented in this encounter ED Notes Tisha Pandya RN - 08/23/2016 11:25 PM CDT [facility] ED Nurse Handoff Report Megan العلي is a 60 year old female with lt arm pain that radiates to chest, relieved withnitro on arrival. Initial cardiac workup negative. Pt is alert and independent in ambulation. ED Chief complaint: Chest Pain . ED Diagnosis: Final diagnoses: Acute chest pain Allergies: Allergies Allergen Reactions ??? Cat Hair [Cats] ??? Sulfa Drugs Rash ??? Ultram [Tramadol Hcl] Headache Weirdness And sick nasuea, vomiting Code Status: Full Code Activity level - Baseline/Home: Independent. Activity Level - Current: Independent. Lift room needed: No. Bariatric: No Cryptanalyst Needed: No Isolation: No. Infection: Not Applicable. Vital Signs: Vitals: 08/23/16 2138 08/23/16 2145 08/23/16 2200 08/23/16 2230 BP: (!) 198/108 (!) 157/92 138/80 144/88 Resp: 16 10 29 Temp: 98 ??F (36.7 ??C) TempSrc: Oral SpO2: 100% Weight: 59 kg (130 lb) Cardiac Rhythm: , Pain level: 0-10 Pain Scale: 5 Patient confused: No. Patient Falls Risk: No. Elimination Status: Has voided Patient Report - Initial Complaint: chest pain. Focused Assessment: lt arm pain radiating to chest Tests Performed: labs, xray. Abnormal Results: none Treatments provided: nitro, asa Family Comments: daughter at bedside OBS brochure/video discussed/provided to patient: N/A ED Medications: Medications nitroGLYcerin (NITROSTAT) sublingual tablet 0.4 mg (0.4 mg Sublingual Given 08/23/162150) nitroGLYcerin (NITROSTAT) sublingual tablet 0.4 mg (not administered) potassium chloride (KLOR-CON) Packet 40 mEq (not administered) aspirin tablet 325 mg (325 mg Oral Given 08/23/162150) Drips infusing: No ED Nurse Name/Phone Number: Alfredo Vasquez, 11:25 PM RECEIVING UNIT ED HANDOFF REVIEW Above ED Nurse Handoff Report was reviewed: Yes Reviewed by: Tisha Pandya on August 23, 2016 at 11:28 PM Adelina Franco RN - 08/23/2016 9:37 PM CDT Pain in left arm for several hours and then developed chest pain in the past hour. Pt did report some shortness of breath over the past day but has hx. Of asthma. Jn Hill MD - 08/23/2016 9:30 PM CDT History Chief Complaint: Chest Pain HPI Megan العلي is a 60 year old female with a history of hypertension and asthma who presentswith chest pain. The patient states that she has had left arm pain since 1630 this evening. Approximately one hour ago while sitting outside on her deck, she developed chest pain. She describes the pain as a pressure sensation and notes that it is nonexertional. Initially, her chest pain was a 5/10, however, after nitroglycerin it became a 2/10. The patient has never had pain like this previously. She denies any nausea, vomiting, or diaphoresis. Cardiac Risk Factors Sex: Female Tobacco: Negative Hypertension:Positive Diabetes: Negative Hyperlipidemia: Negative Family History: Positive PE/DVT Risk Factors Personal History: Negative Recent Travel: Negative Recent Surgery/Hospitalization: Negative Tobacco: Negative Family History: Negative Allergies: Sulfa Drugs Ultram Medications: Ascorbic Acid Hydrodiuril Asmanex Albuterol Past Medical History: Hypertension Asthma Stricture and stenosis of esophagus Urethral stricture Past Surgical History: Hernia repair x 2 Hysterectomy Kidney Stent Family History: Heart Disease-Father Cancer-Mother, Son Hypertension-Father, Brother Lipids-Father Social History: Marital Status: Presents to the ED with daughter Tobacco Use: Never Used Alcohol Use: Yes PCP: [facility] Review of Systems Constitutional: Negative for diaphoresis. Cardiovascular: Positive for chest pain. Gastrointestinal: Negative for nausea and vomiting. All other systems reviewed and are negative. Physical Exam First Vitals: BP: (!) 198/108 Heart Rate: 97 Temp: 98 ??F (36.7 ??C) Resp: 16 Weight: 59 kg (130 lb) SpO2: 100 % Physical Exam Constitutional: Oriented to person, place, and time. Well appearing HENT: Head: Normocephalic. Mouth/Throat: Oropharynx is clear and moist. Eyes: EOM are normal. Pupils are equal, round, and reactive to light. Neck: Neck supple. Cardiovascular: Normal rate, regular rhythm and normal heart sounds. Exam reveals no gallop and no friction rub. No murmur heard. Pulmonary/Chest: Effort normal and breath sounds normal. No respiratory distress. No wheezes. No rales. No reproducible chest wall pain. Abdominal: Soft. No distension. No tenderness. No rebound and no guarding. Musculoskeletal: Normal range of motion. 2+ distal equal pulses. No leg calf tenderness, swelling or edema. Neurological: Alert and oriented to person, place, and time. Moves all 4 extremities spontaneously Skin: No rash noted. No pallor. Emergency Department Course ECG: @2135 Indication: Chest pain Vent. Rate 98 bpm. VA interval 146 ms. QRS duration 106 ms. QT/QTc 352/449 ms. P-R-T axis 72 53 58. Normal sinus rhythm. Possible left atrial enlargement Abnormal ECG. Read @ [address] Hill. Imaging: Chest x-ray, PA & LAT: No acute disease. Lungs clear. Heart and pulmonary vessels within normal limits. No pleural effusion. Report per radiology. Radiographic findings were communicated with the patient who voiced understanding of the findings. Laboratory: (2138) Troponin POCT: 0.00 (2138) Troponin I: <0.015 CBC: WBC 9.9, HGB 12.8, PLT 312, otherwise WNL CMP: Potassium 3.1 (L), otherwise WNL (Creatinine 0.71) Interventions: (2150) Nitroglycerin, 0.4 mg, SL (2150) Aspirin, 325 mg, PO Emergency Department Course: Nursing notes and vitals reviewed. I performed an exam of the patient as documented above. EKG was done, interpretation as above. A peripheral IV was established. Blood was drawn from the patient. This was sent for laboratory testing, findings above. The patient was sent for a chest x-ray while in the emergency department, findings above. Findings and plan explained to the patient who consents to observation. (2239) I discussed the patient with Dr. Pitts of the hospitalist service, who will admit the patient to an observation bed for further monitoring, evaluation, and treatment. Impression & Plan Medical Decision Making: Megan العلي is a 60 year old female who presents for evaluation of chest pain. A broad differential was of course considered. Certainly ischemia is in differential. I doubt pulmonary embolism, aortic dissection, pneumonia or pneumothorax. Other etiologies of chest pain consideredin this patient included chest wall source, esophageal spasm or GI source, pleuritis, referred pain,etc. Her symptoms are unlikely due to PE as she is pain free after nitroglycerin and without risk factors. My suspicion of unstable angina at this point is very low and given risk/benefit ratio would not start Lovenox or heparin. Given the nature and timing of the patient's symptoms, I will admit the patient to the hospital for further workup and treatment The patient agrees to be admitted and all questions were answered. Her pain is improved at this time after given nitro medications. Diagnosis: ICD-10-CM 1. Acute chest pain R07.9 Disposition: Admitted to the hospitalist. I, Na Martin, am serving as a scribe on 08/23/2016 at 10:05 PM to personally document services performed by Dr. Hill based on my observations and the provider's statements to me. 08/23/2016 [facility] EM[facility]GENCY [facility] Jn Hill MD 08/24/16 0255 documented in this encounter Miscellaneous Notes Plan of Care - Chiara Valenzuela RN - 08/24/2016 11:18 AM CDT Problem: Discharge Planning Goal: Discharge Planning (Adult, OB, Behavioral, Peds) OBSERVATION patient END time: 1118 Plan of Care - Chiara Valenzulea RN - 08/24/2016 11:16 AM CDT Problem: Discharge Planning Goal: Discharge Planning (Adult, OB, Behavioral, Peds) Patient's After Visit Summary was reviewed with patient Patient verbalized understanding of After Visit Summary, recommended follow up and was given an opportunity to ask questions. Discharge medications sent home with patient/family: Not applicable Discharged with spouse Plan of Care - Gosia Torres - 08/24/2016 9:00 AM CDT Problem: Discharge Planning Goal: Discharge Planning (Adult, OB, Behavioral, Peds) Outcome: Improving PRIMARY DIAGNOSIS: CHEST PAIN OUTPATIENT/OBSERVATION GOALS TO BE MET BEFORE DISCHARGE: 1. Ruled out acute coronary syndrome (negative or stable Troponin): Neg x 3 2. Pain Status: Pain free. 3. Appropriate provocative testing performed: Yes - Stress Test Procedure: Regular, done - results pending - Interpretation of cardiac rhythm per cmm technician: 4. Cleared by Consultants (if applicable): No - stress test pending 5. Return to near baseline physical activity: Yes VSS. Pt denies chest pain and associated symptoms. Stress test completed, results pending. K+ 3.1 last night; 40meq given PO; recheck ordered. Moving independently. Remains NPO until stress test is resulted. [employer] Nurse Safe discharge environment identified: Yes Barriers to discharge: Yes, exersize stress test results pending Entered by: Guy Cedillo 08/24/2016 4:44 AM Please review provider order for any additional goals. Nurse to notify provider when observation goals have been met and patient is ready for discharge. Plan of Care - Guy Cedillo RN - 08/24/2016 4:44 AM CDT Problem: Discharge Planning Goal: Discharge Planning (Adult, OB, Behavioral, Peds) Outcome: Improving PRIMARY DIAGNOSIS: CHEST PAIN OUTPATIENT/OBSERVATION GOALS TO BE MET BEFORE DISCHARGE: 1. Ruled out acute coronary syndrome (negative or stable Troponin): Neg x 2, next to be drawn at 0600 2. Pain Status: Pain free. 3. Appropriate provocative testing performed: Yes - Stress Test Procedure: Regular, scheduled for tomorrow - Interpretation of cardiac rhythm per cmm technician: SR 82 4. Cleared by Consultants (if applicable):No 5. Return to near baseline physical activity: Yes [employer] Nurse Safe discharge environment identified: Yes Barriers to discharge: Yes, exercise stress test in am, trop x 2 Entered by: Guy Cedillo 08/24/2016 4:44 AM Please review provider order for any additional goals. Nurse to notify provider when observation goals have been met and patient is ready for discharge. Pt A&O x4, VSS. Pt denies chest/back pain, SOB, dizziness. Pt on clear liquid diet. Pt received 40 mEq of oral potassium, K was originally 3.1 in ED. Pt was oriented to unit and room. Will continueto monitor. Plan of Care - Guy Cedillo RN - 08/24/2016 12:50 AM CDT Problem: Discharge Planning Goal: Discharge Planning (Adult, OB, Behavioral, Peds) Outcome: Improving PRIMARY DIAGNOSIS: CHEST PAIN OUTPATIENT/OBSERVATION GOALS TO BE MET BEFORE DISCHARGE: 1. Ruled out acute coronary syndrome (negative or stable Troponin): Neg x 1, next to be drawn at 0200 and 0600 2. Pain Status: Pain free. 3. Appropriate provocative testing performed: Yes - Stress Test Procedure: Regular, scheduled for tomorrow - Interpretation of cardiac rhythm per cmm technician: SR 82 4. Cleared by Consultants (if applicable):No 5. Return to near baseline physical activity: Yes [employer] Nurse Safe discharge environment identified: Yes Barriers to discharge: Yes, exercise stress test in am, trop x 2 Entered by: Guy Cedillo 08/24/2016 2:01 AM Please review provider order for any additional goals. Nurse to notify provider when observation goals have been met and patient is ready for discharge. Pt A&O x4, VSS. Pt denies chest/back pain, SOB, dizziness. Pt on clear liquid diet. Pt received 40 mEq of oral potassium, K was originally 3.1 in ED. Pt was oriented to unit and room. Will continueto monitor. Plan of Care - Tisha Pandya RN - 08/23/2016 11:58 PM CDT Problem: Discharge Planning Goal: Discharge Planning (Adult, OB, Behavioral, Peds) ROOM # 203 Living Situation (if not independent, order SW consult): lives in a home with and daughter Facility name: N/A supervising floorperson: Casper () Activity level at baseline: independent Activity level on admit: independent Patient registered to observation; given Patient Bill of Rights; given the opportunity to ask questions about observation status and their plan of care. Patient has been oriented to the observation room, bathroom and call light is in place. Discussed discharge goals and expectations with patient/family. Pharmacy-Admission Medication History - Noel Ortega [facility] - 08/23/2016 11:30 PM CDT Admission medication history interview status for this patient is complete. See [facility] admission navigator for allergy information, prior to admission medications and immunization status. 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 No For patients on insulin therapy: no (Yes/No) Lantus/levemir/NPH/Mix 70/30 dose: in AM/PM or twice daily Sliding scale Novolog Y/N If Yes, do you have a baseline novolog pre-meal dose: units with meals Patients eat three meals a day: Y/N Any Barriers to therapy: cost of medications/comfortable with giving injections (if applicable)/ comfortable and confident with current diabetes regimen Prior to Admission medications Medication Sig Last Dose Taking? Auth Provider VITAMIN D, CHOLECALCIFEROL, PO Take 2,500 Units by mouth At Bedtime 08/23/2016 at Unknown time Yes Unknown, Entered By History [place]-3 Fatty Acids (FISH OIL PO) Take 2 capsules by mouth At Bedtime 08/22/2016 at Unknown time Yes Unknown, Entered By History Ascorbic Acid (VITAMIN C) 100 MG TABS Take 1,500 mg by mouth At Bedtime 08/22/2016 at Unknown time YesReported, Patient hydrochlorothiazide (HYDRODIURIL) 25 MG tablet Take 25 mg by mouth daily 08/22/2016 at hs Yes Reported, Patient ASMANEX 30 METERED DOSES 110 MCG/INH inhaler INHALE ONE PUFF DAILY FOR ASTHMA, USE WHEN OUT OF TOWN AND NEBULIZER NOT AVAILABLE 08/23/2016 at AM Yes Reported, Patient albuterol (ALBUTEROL) 108 (90 BASE) MCG/ACT inhaler Inhale 2 puffs into the lungs every 6 hours as needed for shortness of breath / dyspnea or wheezing 08/22/2016 at Unknown time Yes Bj Pelletier MD MULTI-VITAMIN OR TABS 1 TABLET DAILY at bedtime Past Month at Unknown time Yes Reported, Patient B COMPLEX OR 1 tablet orally at bedtime 08/22/2016 at Unknown time Yes Reported, Patient documented in this encounter Plan of Treatment Not on filedocumented as of this encounter Procedures Procedure Name Priority Date/Time Associated Comments Diagnosis ECHO STRESS TEST Routine 08/24/2016 7:37 AM Resul ts for this CDT procedure are i n the results section. TROPONIN I Timed 08/24/2016 6:18 AM Acute chest pain Resul ts for this CDT procedure are i n the results section. POTASSIUM Routine 08/24/2016 6:18 AM Acute chest pain Resul ts for this CDT procedure are i n the results section. TROPONIN I Timed 08/24/2016 2:18 AM Acute chest pain Resul ts for this CDT procedure are i n the results section. XR CHEST 2 VIEWS STAT 08/23/2016 10:13 Results for this PM CDT procedure are i n the results section. CBC WITH PLATELETS & STAT 08/23/2016 9:39 PM R esults for this DIFFERENTIAL CDT procedure are i n the results section. TROPONIN POCT Routine 08/23/2016 9:39 PM Results for this CDT procedure are i n the results section. TROPONIN I STAT 08/23/2016 9:39 PM Results f or this CDT procedure are i n the results section. COMPREHENSIVE STAT 08/23/2016 9:39 PM Results for this METABOLIC PANEL CDT procedure ar e in the results section. EKG 12-LEAD, TRACING STAT 08/23/2016 9:36 PM R esults for this ONLY CDT procedure are i n the results section. documented in this encounter Results Exercise Stress Echocardiogram (08/24/2016 7:37 AM CDT) Anatomical Region Laterality Modality Echocardiography Specimen (Source) Anatomical Collection Method Collection Time Re ceived Time Location / / Volume Laterality 08/24/2016 7:13 AM CDT Narrative 08/24/2016 9:41 AM CDT [id number] [facility]07 [id number]^ITA^KENNETH^JOELLE [facility] Echocardiography Laboratory [address] [place] [id number] Name: MEGAN AYON : 1955 Study Date: 08/24/2016 07:13 AM Age: 60 yrs Gender: Female Patient Location: [facility] Reason For Study: Chest Pain History: Chest Pain,Hypertension Ordering Physician: KENNETH PITTS Referring Physician: Kenneth Pitts Performed By: Noel Pfeiffer RDCS BSA: 1.7 m2 Height: 65 in Weight: 136 lb HR: 96 BP: 140/90 mmHg Medications: HCTZ __ Procedure Stress Echo Complete. __ Interpretation Summary 1. Above average exercise capacity with target HR achieved. 2. The patient exhibited no chest pain d uring exercise. 3. This was a normal stress EKG with no evidence of stress-induced ischemia. 4. Rest echo: The resting phase of the s tudy was normal. No regional wall motion abnormalities noted. At least mil d-moderate mitral regurgitation. 5. Stress echo: This was a normal stress echocardiogram with no evidence of stress-induced ischemia. No previous study for comparison. __ Stress A high workload was achieved. RPP 38784. Exercise was stopped due to fatigue. There was a normal BP response to exerci se. The patient exhibited no chest pain duri ng exercise. The Alegria treadmill score was low risk ( >5 Alegria score). Target Heart Rate was achieved. This was a normal stress EKG with no ellen dence of stress-induced ischemia. This was a normal stress echocardiogram with no evidence of stress-induced ischemia. Baseline Resting ECG is normal. The patient is in normal sinus rhythm. The resting phase of the study was ana l. No regional wall motion abnormalities no melina. Stress Results ? Protocol: ??Terrell ?Maximum Predicted HR: ?? 160 bpm ? Target HR: 136 bpm ?% Maximum Predicted HR: 94 % ?Stage DurationHeart Rate ??B P ? Comment ? (mm:ss) ?? (bpm) ? Stage 1 ??3:00 ?102 ?? 144/80 ? Stage 2 ??3:00 ?102 ?? 144/80 ? Stage 3 ??3:00 ?122 ?? 150/80 ? Stage 4 ??3:00 ?151 ?? 160/80 ?Recovery ??6:00 ?92 ?140/90FAC Above, Alegria Score 12 loq eiak ? Stress Duration: ? ? 12:00 mm:ss * ? Maximum Stress HR: 151 bpm * ?METS: 13 Left Ventricle The left ventricle is normal in structur e, function and size. The visual ejection fraction is estimated at 60%. N ormal left ventricular wall motion. Right Ventricle The right ventricle is normal in structu re, function and size. Mitral Valve There is mild to moderate (1-2+) mitral regurgitation. Only one view of MR jet, could be greater. Tricuspid Valve There is mild (1+) tricuspid regurgitati on. The right ventricular systolic pressure is approximated at 22mmHg plus the right atrial pressure. Aortic Valve The aortic valve is normal in structure and function. __ Doppler Measurements & Calculations MR ERO: 0.13 cm2 TR max deisi: 232.4 cm/sec TR max P.6 mmHg __ Report approved by: Reji Espinoza 08/24/2016 09:41 AM Procedure Note Valentino Solomon MD - 017 [id number] [facility]07 [id number]^ITA^KENNETH^JOELLE [facility] Echocardiography Laboratory [address] [place] [id number] Name: MEGAN AYON : 1955 Study Date: 08/24/2016 07:13 AM Age: 60 yrs Gender: Female Patient Location: [facility] Reason For Study: Chest Pain History: Chest Pain,Hypertension Ordering Physician: KENNETH PITTS Referring Physician: Kenneth Pitts Performed By: Noel Pfeiffer ARRON BSA: 1.7 m2 Height: 65 in Weight: 136 lb HR: 96 BP: 140/90 mmHg Medications: HCTZ __ Procedure Stress Echo Complete. __ Interpretation Summary 1. Above average exercise capacity with target HR achieved. 2. The patient exhibited no chest pain d uring exercise. 3. This was a normal stress EKG with no evidence of stress-induced ischemia. 4. Rest echo: The resting phase of the s tudy was normal. No regional wall motion abnormalities noted. At least mil d-moderate mitral regurgitation. 5. Stress echo: This was a normal stress echocardiogram with no evidence of stress-induced ischemia. No previous study for comparison. __ Stress A high workload was achieved. RPP 25512. Exercise was stopped due to fatigue. There was a normal BP response to exerci se. The patient exhibited no chest pain duri ng exercise. The Alegria treadmill score was low risk ( >5 Alegria score). Target Heart Rate was achieved. This was a normal stress EKG with no ellen dence of stress-induced ischemia. This was a normal stress echocardiogram with no evidence of stress-induced ischemia. Baseline Resting ECG is normal. The patient is in normal sinus rhythm. The resting phase of the study was ana l. No regional wall motion abnormalities no melina. Stress Results Protocol: Terrell Maximum Predicted HR: 1 60 bpm Target HR: 136 bpm % Maximum Predicted HR: 94 % Stage DurationHeart Rate BP Comment (mm:ss) (bpm) Stage 1 3:00 102 144/80 Stage 2 3:00 102 144/80 Stage 3 3:00 122 150/80 Stage 4 3:00 151 160/80 Recovery 6:00 92 140/90FAC Above, Alegria Score 12 loq eiak Stress Duration: 12:00 mm:ss * Maximum Stress HR: 151 bpm * METS: 13 Left Ventricle The left ventricle is normal in structur e, function and size. The visual ejection fraction is estimated at 60%. N ormal left ventricular wall motion. Right Ventricle The right ventricle is normal in structu re, function and size. Mitral Valve There is mild to moderate (1-2+) mitral regurgitation. Only one view of MR jet, could be greater. Tricuspid Valve There is mild (1+) tricuspid regurgitati on. The right ventricular systolic pressure is approximated at 22mmHg plus the right atrial pressure. Aortic Valve The aortic valve is normal in structure and function. __ Doppler Measurements & Calculations MR ERO: 0.13 cm2 TR max deisi: 232.4 cm/sec TR max P.6 mmHg __ Report approved by: Reji Espinoza 08/24/2016 09:41 AM Al Joelle Pitts MD CV ECHO ORDERABLES Potassium (08/24/2016 6:18 AM CDT) P athologist Signature Potassium 3.7 3.4 - 5.3 [facility] mmol/L HOSPITAL Specimen Anatomical Collection Method Collection Time Receive d Time (Source) Location / / Volume Laterality 08/24/2016 6:18 AM 7 6:33 CDT AM CDT Kenneth Pitts MD LAB - BLOOD ORDERABLES Performing Organization Address [facility] e Number [facility] [address], [place] [address] [place] [address] [address] [place], [place] [address], [facility] [phone] Troponin I (08/24/2016 6:18 AM CDT) [facility] Metropia Method Time Signature Troponin I ES <0.015 0.000 - [facility] The 99th percentile for uppe r reference range is 0.045 ug/L. ??Troponin values in 0.045 [place] the range of 0.045 - 0.120 ug/L may be associated wit h risks of adverse ug/L HOSPITAL clinical events. Specimen Anatomical Collection Method Collection Time Receive d Time (Source) Location / / Volume Laterality Blood specimen 08/24/2016 6:18 AM 017 6:33 (specimen) CDT AM CDT Kenneth Pitts MD LAB - BLOOD ORDERABLES Performing Organization Address [facility] e [facility] [address], [place] [address] [place] [address] [address] [place], [place] [address], [facility] [phone] Troponin I (08/24/2016 2:18 AM CDT) [facility] Metropia Method Time Signature Troponin I ES <0.015 0.000 - [place] The 99th percentile for uppe r reference range is 0.045 ug/L. ??Troponin values in 0.045 [place] the range of 0.045 - 0.120 ug/L may be associated wit h risks of adverse ug/L HOSPITAL clinical events. Specimen Anatomical Collection Method Collection Time Receive d Time (Source) Location / / Volume Laterality Blood specimen 08/24/2016 2:18 AM 017 2:26 (specimen) CDT AM CDT Kenneth Pitts MD LAB - BLOOD ORDERABLES Performing Organization Address City/State/ZIP Code Phon e Number M [facility] [address], [place] [address] [facility] [address] [place], [place] [address] [facility] [phone] Chest XR, PA & LAT (08/23/2016 10:13 PM CDT) Anatomical Region Laterality Modality Chest Digital Radiography Specimen (Source) Anatomical Location Collection Method / Collectio n Time Received Time / Laterality Volume Impressions 08/23/2016 10:16 PM CDT IMPRESSION: No acute disease. Lungs clear. Heart and pulmonary vessels within normal limits. No pleural effusio n. LEENA SMYTH MD Narrative 08/23/2016 10:16 PM CDT CHEST TWO VIEWS 08/23/2016 10:13 PM HISTORY: chest pain COMPARISON: 11/16/2013 chest x-ray Procedure Note Leena Smyth MD - 08/23/2016For matting of this note might be different from the original. CHEST TWO VIEWS 08/23/2016 10:13 PM HISTORY: chest pain COMPARISON: 11/16/2013 chest x-ray IMPRESSION: No acute disease. Lungs colleen r. Heart and pulmonary vessels within normal limits. No pleural effusio n. LEENA SMYTH MD Ciro Francois Elizabeth DO IMG DIAGNOSTIC IMAGING ORDER [place] Troponin POCT (08/23/2016 9:39 PM CDT) athologist Signature Troponin I 0.00 0.00 - 0.10 POINT OF CARE ug/L TEST, HANDHELD METER Specimen Anatomical Collection Method Collection Time Receive d Time (Source) Location / / Volume Laterality 08/23/2016 9:39 PM 7 9:55 CDT PM CDT Provider Unknown LAB - ENTER/EDIT POCT Performing Organization Address City/[facility]/ZIP Code Phon e Number [facility] POINT OF CARE TEST, HANDHELD METER POINT OF CARE TEST, HANDHELD METER Troponin I (08/23/2016 9:39 PM CDT) [facility] gist Method Time Signature Troponin I ES <0.015 0.000 - [place] The 99th percentile for uppe r reference range is 0.045 ug/L. ??Troponin values in 0.045 [facility] the range of 0.045 - 0.120 ug/L may be associated wit h risks of adverse ug/L HOSPITAL clinical events. Specimen Anatomical Collection Method Collection Time Receive d Time (Source) Location / / Volume Laterality Blood specimen 08/23/2016 9:39 PM 017 9:48 (specimen) CDT PM CDT Ciro Johnson DO LAB - BLOOD ORDERABLES Performing Organization Address City/State/ZIP Code Phon e Number [place] [address] [address] [place] [address] [facility] [address] [phone] (ABNORMAL) Comprehensive metabolic panel (08/23/2016 9:39 PM CDT) athologist Signature Sodium 141 133 - 144 [place] mmol/L [facility] Potassium 3.1 (L) 3.4 - 5.3 [place] mmol/L [facility] Chloride 104 94 - 109 [place] mmol/L [facility] Carbon Dioxide 30 20 - 32 [place] mmol/L [facility] Anion Gap 7 3 - 14 [place] mmol/L [facility] Glucose 95 70 - 99 [place] mg/dL [facility] Urea Nitrogen 11 7 - 30 [place] mg/dL [facility] Creatinine 0.71 0.52 - [place] 1.04 mg/dL [facility] GFR Estimate 84 >60 [place] mL/min/1.7 [facility] m2 HOSPITAL Comment: Non GFR Calc GFR Estimate If Black >90 >60 mL/min/1.7m2 F [facility] GFR Calc HOSP ITAL Calcium 8.8 8.5 - 10.1 mg/dL [facility] Bilirubin Total 0.4 0.2 - 1.3 mg/dL [facility] Albumin 4.0 3.4 - 5.0 g/dL [facility] Protein Total 7.6 6.8 - 8.8 g/dL [facility] Alkaline Phosphatase 104 40 - 150 U/L [facility] ALT 26 0 - 50 U/L [facility] AST 21 0 - 45 U/L [facility] Specimen Anatomical Collection Method Collection Time Receive d Time (Source) Location / / Volume Laterality Blood specimen 08/23/2016 9:39 PM 017 9:48 (specimen) CDT PM CDT Jn Hill MD LAB - BLOOD ORDERABLES Performing Organization Address City/State/ZIP Code Phon e Number [facility] [address] [place] [address] [facility] [address] [phone] CBC with platelets differential (08/23/2016 9:39 PM CDT) [facility] Method Time Signature WBC 9.9 4.0 - [place] [address] RBC Count 4.07 3.8 - 5.2 [place] 10e12/L [facility] Hemoglobin 12.8 11.7 - [place] 15.7 g/dL [facility] Hematocrit 37.9 35.0 - [place] 47.0 % [facility] MCV 93 78 - 100 [facility] MCH 31.4 26.5 - [place] 33.0 pg [facility] MCHC 33.8 31.5 - [place] 36.5 g/dL [facility] RDW 11.9 10.0 - [place] 15.0 % [facility] Platelet Count 312 150 - [address] Diff Method Automated [facility] % Neutrophils 59.7 % [facility] % Lymphocytes 26.4 % [facility] % Monocytes 7.9 % [facility] % Eosinophils 5.1 % [facility] % Basophils 0.8 % [facility] % Immature 0.1 % [place] Granulocytes [facility] Nucleated RBCs 0 0 /100 [facility] Absolute 5.9 1.6 - 8.3 [place] Neutrophil 10e9/[facility] Absolute 2.6 0.8 - 5.3 [place] Lymphocytes 10e9[facility] Absolute 0.8 0.0 - 1.3 [place] Monocytes [address] [place] [address] Absolute 0.5 0.0 - 0.7 [place] Eosinophils 10e9/L [facility] Absolute 0.1 0.0 - 0.2 [place] Basophils 10e9/L [facility] Abs Immature 0.0 0 - 0.4 [place] Granulocytes 10e9/[facility] Absolute 0.0 [place] Nucleated RBC [facility] Specimen Anatomical Collection Method Collection Time Receive d Time (Source) Location / / Volume Laterality Blood specimen 08/23/2016 9:39 PM 017 9:48 (specimen) CDT PM CDT Jn Hill MD LAB - BLOOD ORDERABLES Performing Organization Address City/[facility]/ZIP [facility] [place] [address] [facility] [address] [place] [address] 7[facility] [phone] EKG 12 lead (08/23/2016 9:36 PM CDT) [facility] gist Method Time Signature Interpretation ECG Click View RADIOLOGY Image link RESULTS to view waveform and result Specimen (Source) Anatomical Collection Method Collection Time Re ceived Time Location / / Volume Laterality 08/23/2016 9:36 PM CDT Melanie Quesada MD ECG ORDERABLES Performing Organization Address City/[facility]/ZIP [facility] [place] RADIOLOGY RESULTS documented in this encounter Visit Diagnoses Diagnosis Acute chest pain Chest pain, unspecified Chest pain Chest pain, unspecified documented in this encounter Administered Medications Inactive Administered Medications - up to 3 most recent administrations Medication Order MAR Action Action Date Dose Rate Site aspirin EC EC tablet 81 mg Given 08/24/2016 8:35 AM CDT 81 mg 81 mg, Oral, DAILY, First dose on Wed08/24/16 at 0800, DO NOT CRUSH. aspirin tablet 325 mg Given 08/23/2016 9:51 PM CDT 325 mg 325 mg, Oral, ONCE, On 08/23/16 at 2145, For 1 dose famotidine (PEPCID) injection 20 mg Given 08/24/2016 12:42 AM CDT 20 mg 20 mg, Intravenous, ONCE, On 08/24/16 at 0025, For 1 dose hydrochlorothiazide (HYDRODIURIL) tablet 25 mg Given 08/24/2016 8:35 AM CDT 25 mg 25 mg, Oral, DAILY, First dose on Wed08/24/16 at 0800 nitroGLYcerin (NITROSTAT) sublingual tablet Given 08/23/2016 9:51 PM CDT 0.4 mg 0.4 mg 0.4 mg, Sublingual, EVERY 5 MIN PRN, chest pain, Starting on 08/23/16 at 2143 ondansetron (ZOFRAN) injection 4 mg 4 mg, Intravenous, EVERY 6 HOURS PRN, nausea, vomiting , Administer over 2-5 Minutes, Starting on Wed08/24/16 at 0024, This is Step 1 of nausea and vomiting management. If nausea not resolved in 15 minutes, go t o Step 2 prochlorperazine (COMPAZINE). Irritant. ondansetron (ZOFRAN-ODT) ODT tab 4 mg 4 mg, Oral, EVERY 6 HOURS PRN, nausea, v omiting, Starting on Wed08/24/16 at 0024, This is Step 1 of nausea and vomiting management. If n ausea not resolved in 15 minutes, go to Step 2 prochlorperazine (COMPAZINE). Do not push through foil backing. Peel back foil and gently remove. Place on to ngue immediately. Administration with liquid unnecessary potassium chloride (KLOR-CON) Packet 40 mEq Given 08/24/2016 12:41 AM CDT 40 mEq 40 mEq, Oral, ONCE, On 08/23/16 at 2231, For 1 dose, Dissolve packet contents in 4-8 ounces of cold water or juice. documented in this encounter Active and Recently Administered Medications Times are shown in CDT. Scheduled Medication Order 08/22/2016 08/23/2016 08/24/2016 aspirin EC EC tablet 81 mg 0835 (Given - Provider: Gosia Torres) 81 mg, Oral, DAILY, First dose on Wed08/24/16 at 0800, DO NOT CR [facility]. aspirin tablet 325 mg (COMPLETED) 2150 (Given - Provider: Alfredo Vasquez RN) 325 mg, Oral, ONCE, 08/23/16 at 2145, For 1 dose famotidine (PEPCID) injection 20 mg (COMPLETED) 41 (Given - Provider: Guy Cedillo RN) 20 mg, Intravenous, ONCE, 08/24/16 at 0025, For 1 dose hydrochlorothiazide (HYDRODIURIL) tablet 25 mg 0835 (Given - Provider: Gosia Torres) 25 mg, Oral, DAILY, First dose on Wed08/24/16 at 0800 potassium chloride (KLOR-CON) Packet 40 mEq (COMPLETED) 0041 (Given - Provider: Guy Cedillo RN) 40 mEq, Oral, ONCE, 08/23/16 at 2231, For 1 dose, Dissolve packet contents in 4-8 ounces of cold water or juice. PRN Medication Order 08/22/2016 08/23/2016 08/24/2016 acetaminophen (TYLENOL) tablet 650 mg 650 mg, Oral, EVERY 4 HOURS PRN, mild pa in, Starting Wed08/24/16 at 0024, Alternate ibuprofen (if ordered) with acetaminophen. Maximum acetaminophen dose from all sources = 75 mg/kg/day not to exceed 4 grams/day. HOLD: Beta Blockers The evening before and the morning of proced ure Medication(s) to hold: Beta Blockers - A cebutolol, Atenolol, Betaxolol, Bisoprolol, Carteolol, Carvedilol, Esmolol, Labetalol, Metoprolol, Nadolol, Nebivolol, Penbutolol, Pindolol, Propranolol, Sotalol, Parameter for hold (doses,days,conditio ns) : Hold before Procedure or Test, Hours or days to hold med before/after procedure/surgery: The evening before and morning of procedure as directed by ordering physician, HOLD, Starting Wed08/24/16 a t 0024, Until Wed08/24/16 at 1433, For Exercise Stress Echocardiogram, Cardiac Pre-procedure naloxone (NARCAN) injection 0.1-0.4 mg 0.1-0.4 mg, Intravenous, EVERY 2 MIN PRN , opioid reversal, Starting Wed08/24/16 at 0024, For respiratory rate LESS than or EQUAL to 8. Partial reversal dose: 0.1 mg titrated q 2 minutes for Analgesia Si de Effects Monitoring Sedation Level of 3 (frequently drowsy, arousable, drifts to sleep during conversation).Full reversal dose: 0.4 mg bolus for Analgesia Side Effects Monitoring Sedation Level of 4 ( somnolent, minimal or no response to stimulation). nitroGLYcerin (NITROSTAT) sublingual tablet 0.4 mg (CANCELED ) 2150 (Given - Provider: Alfredo Vasquez RN) 0.4 mg, Sublingual, EVERY 5 MIN PRN, chest pain, Starting 08/23/16 at 2143 nitroGLYcerin (NITROSTAT) sublingual tablet 0.4 mg 0.4 mg, Sublingual, EVERY 5 MIN PRN, chest pain, Starting Mon 12/01 at 0024 ondansetron (ZOFRAN) injection 4 mg(Linked Group 1) 4 mg, Intravenous, EVERY 6 HOURS PRN, na usea, vomiting, Administer over 2-5 Minutes, Starting 08/24/16 at 0024, This is Step 1 of nausea and vomiting management. If nausea not resolved in 15 minutes, go to Step 2 prochlorperazine (COMPAZINE). Irritant. ondansetron (ZOFRAN-ODT) ODT tab 4 mg(Linked Group 1) 4 mg, Oral, EVERY 6 HOURS PRN, nausea, v omiting, Starting 08/24/16 at 0024, This is Step 1 of nausea and vomiting management. If nausea not resolved in 15 minutes, go to Step 2 prochlorperazine (COMP AZINE). Do not push through foil backing . Peel back foil and gently remove. Place on tongue immediately. Administration with liquid unnecessary Linked Groups Order Group 1: ondansetron (ZOFRAN-ODT) ODT tab 4 mgJump to med 4 mg, Oral, EVERY 6 HOURS PRN, nausea, v omiting, Starting 08/24/16 at 0024
This is Step 1 of nausea and vomiting management. If nausea not resolved in 15 minutes, go to St ep 2 prochlorperazine (COMPAZINE). Do no t push through foil backing. Peel back foil and gently remove. Place on tongue immediately. Administration with liquid unnecessary
Or ondansetron (ZOFRAN) injection 4 mgJump to med 4 mg, Intravenous, EVERY 6 HOURS PRN, na usea, vomiting, Administer over 2-5 Minutes, Starting 08/24/16 at 0024
This is Step 1 of nausea and vomiting management. If nausea not resolved in 15 minutes, go to Step 2 prochlorperazine (COMPAZINE). Irritant.
documented in this encounter Care Teams Picking Table Worker Relationship Specialty Start Date End Date Clinic - [facility] PCP - General 08/23/16 08/24/16 [id number] [place] [address] documented as of this encounter
--- OUTSIDE RECORDS SUMMARY | 2021-12-03 11:50 | XMS_ITS | Encounter Summary ---
:1955 Author Organization [place] Address [address] [place] [address] Care Team Providers Name Role Phone Bj Pelletier MD Primary Care Provider Encounter Details Date Type Department Care Team Description 11/16/2013 Radiant Appointment [facility] Omar Roque MD Pain in limb Clinic [place] XXX RESIGNED XXX [address] [place], [place] [address] [place], [place] [phone] (Wo rk) Social History Tobacco Use Types Packs/Day Years Used Date Smoking Tobacco: Never Alcohol Use Standard Drinks/Week Comments Yes 0 (1 standard drink = 0.6 oz pure alcoho l) 2-3 times a week Sex Assigned at Date Recorded Female 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 Prominent degenerative change involving the STT carpal joints bilaterally. CHACHO DIEHL MD Narrative 11/16/2013 10:49 AM CDT XR HAND BILATERAL G/E 3 VW 11/16/2013 10:43 AM HISTORY: Pain in limb ? Procedure Note Chacho Diehl MD - 11/16/2013Formatt ing of this note might be different from the original. XR HAND BILATERAL G/E 3 VW 11/16/2013 10: 43 AM HISTORY: Pain in limb IMPRESSION IMPRESSION: Advanced degenerative change s involving multiple IP joints of both hands most marked at the DIP jose nts of both index fingers. Prominent degenerative change involving the STT carpal joints bilaterally. CHACHO DIEHL MD Bj Pelletier MD IMG DIAGNOSTIC IMAGING ORDER [place] documented in this encounter Visit Diagnoses Diagnosis Pain in limb documented in this encounter Care Teams Rose Grower Relationship Specialty Start Date End Date Bj Pelletier MD PCP - General 10/06/02 08/22/16 XXX RESIGNED XXX [address] [facility] [address] [place] [address] documented as of this encounter
--- OUTSIDE RECORDS SUMMARY | 2021-12-03 11:50 | XMS_ITS | Encounter Summary ---
:1955 Author Organization [facility] Address [address] [place] [address] Care Team Providers Name Role Phone Carmen Aleman Reji DENTAL APPLIANCE REPAIRER Primary Care Provider Encounter Details Date Type Department Care Team Description 11/06/2016 Orders Only [facility] [place], Kidney cys t, acquired Nephrology Clinic MD Tanja (Primary Dx) [address] [place] [address] [phone] (Wo rk) Social History Tobacco Use Types Packs/Day Years Used Date Smoking Tobacco: Never Smokeless Tobacco: Never Alcohol Use Standard Drinks/Week Comments Yes 0 (1 standard drink = 0.6 oz pure alcoho l) 2-3 times a week Sex Assigned at Date Recorded Female 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 Kidney cyst Last OV: New patient documented in this encounter Plan of Treatment Not on filedocumented as of this encounter Results (ABNORMAL) UA with Microscopic reflex to Culture (11/17/2016 3:29 PM CDT) [facility] Method Time Signature Color Urine Yellow 11/17/2016 [facility] 3:48 PM CDT [facility] Appearance Urine Clear 11/17/2016 [facility] 3:48 PM CDT [facility] Glucose Urine Negative NEG^Negat 11/17/2016 [facility] gurwinder mg/dL 3:48 PM CDT [facility] Bilirubin Urine Negative NEG^Negat 11/17/2016 [facility] gurwinder 3:48 PM CDT [facility] Ketones Urine Negative NEG^Negat 11/17/2016 [facility] gurwinder mg/dL 3:48 PM T [facility] Specific [place] 1.009 1.003 - 11/17/2016 [facility] Urine 1.035 3:48 PM T [facility] Blood Urine Negative NEG^Negat 11/17/2016 [facility] gurwinder 3:48 PM T [facility] pH Urine 7.0 5.0 - 7.0 11/17/2016 [facility] pH 3:48 PM T [facility] Protein Albumin Negative NEG^Negat 11/17/2016 [facility] Urine gurwinder mg/dL 3:48 PM T [facility] Urobilinogen 0.0 0.0 - 2.0 11/17/2016 [facility] mg/dL mg/dL 3:48 PM T [facility] Nitrite Urine Negative NEG^Negat 11/17/2016 [facility] gurwinder 3:48 PM T [facility] Leukocyte Negative NEG^Negat 11/17/2016 [facility] Esterase Urine gurwinder 3:48 PM T [facility] Source Midstream 11/17/2016 [facility] Urine 3:31 PM T [facility] WBC Urine <1 0 - 2 11/17/2016 [facility] /HPF 3:48 PM T [facility] RBC Urine 0 0 - 2 11/17/2016 [facility] /HPF 3:48 PM T [facility] Squamous <1 0 - 1 11/17/2016 [facility] Epithelial /HPF /HPF 3:48 PM T [place] Urine [facility] Mucous Urine Present (A) NEG^Negat 11/17/2016 [facility] gurwinder /LPF 3:48 PM CDT [facility] Specimen (Source) Anatomical Collection Method Collection Time Re ceived Time Location / / Volume Laterality Examination of 11/17/2016 3:29 11/17/2016 3:31 midstream urine PM CDT PM CDT specimen (procedure) Hermelinda Lang MD LAB - URINE ORDERABLES Performing Organization Address City/State/ZIP Code Phon e Number [address] [address] [facility] Protein random urine with Creat Ratio (11/17/2016 3:29 PM CDT) [facility] gist Method Time Signature Protein Random <0.05 g/L 11/17/2016 [place] Urine 4:06 PM CDT [facility] Protein Total Unable to 0 - 0.2 11/17/2016 [place] Urine g/gr calculate due g/g Cr 4:06 PM CDT [facility] Creatinine to low value [facility] Specimen Anatomical Collection Method Collection Time Receive d Time (Source) Location / / Volume Laterality Urine specimen 11/17/2016 3:29 PM 017 3:31 (specimen) CDT PM CDT Hermelinda Lang MD LAB - URINE ORDERABLES Performing Organization Address City/State/ZIP Code Phon e Number [facility] [address] [phone] [facility] [address] [phone], [facility] [phone] Vitamin D Deficiency (11/17/2016 3:26 PM CDT) P athologist Signature Vitamin D 54 20 - 75 11/18/2016 [facility] Deficiency ug/L 10:50 AM CDT [place] [facility] screening [facility] Comment: Season, race, dietary intake, and treatm ent affect the concentration of 22-xiwypvc-Ajsygzx D. Values may decreas e during winter months and increase during summer months. Values 20-29 ug/L may indicate Vitamin D insufficiency and values <20 ug/L may indicate Vitamin D deficiency. Vitamin D determination is routinely per formed by an immunoassay specific for 25 hydroxyvitamin D3. ??If an individual is on vitamin D2 (ergocalciferol) supplementation, please specify 25 [place] vi tamin D2 and D3 level determination by LCMSMS test VITD23. Specimen Anatomical Collection Method Collection Time Receive d Time (Source) Location / / Volume Laterality Blood specimen 11/17/2016 3:26 PM 017 3:28 (specimen) CDT PM CDT Hermelinda Lang MD LAB - BLOOD ORDERABLES Performing Organization Address City/State/ZIP Code Phon e Number [address] Parathyroid Hormone Intact (11/17/2016 3:26 PM CDT) athologist Signature Parathyroid 27 12 - 72 11/17/2016 [facility] Hormone Intact pg/mL 7:59 PM CDT [facility] Specimen Anatomical Collection Method Collection Time Receive d Time (Source) Location / / Volume Laterality Blood specimen 11/17/2016 3:26 PM 017 3:28 (specimen) CDT PM CDT Hermelinda Lang MD LAB - BLOOD ORDERABLES Performing Organization Address City/[facility]/ZIP Code Phon e Number [address] Iron and iron binding capacity (11/17/2016 3:26 PM CDT) P athologist Signature Iron 84 35 - 180 11/17/2016 [facility] ug/dL 4:05 PM CDT [facility] Iron Binding 314 240 - 430 11/17/2016 [facility] Cap ug/dL 4:05 PM CDT [facility] Iron Saturation 27 15 - 46 % 11/17/2016 [facility] Index 4:05 PM CDT [facility] Specimen Anatomical Collection Method Collection Time Receive d Time (Source) Location / / Volume Laterality Blood specimen 11/17/2016 3:26 PM 017 3:28 (specimen) CDT PM CDT Hermelinda Lang MD LAB - BLOOD ORDERABLES Performing Organization Address City/State/ZIP Code Phon e Number [address] [address] [facility] Ferritin (11/17/2016 3:26 PM CDT) athologist Signature Ferritin 103 8 - 252 11/17/2016 [facility] ng/mL 4:05 PM CDT [facility] Specimen Anatomical Collection Method Collection Time Receive d Time (Source) Location / / Volume Laterality Blood specimen 11/17/2016 3:26 PM 017 3:28 (specimen) CDT PM CDT Hermelinda Lang MD LAB - BLOOD ORDERABLES Performing Organization Address City/State/ZIP Code Phon e Number [facility] [address] [place] [address] [facility] CBC with platelets (11/17/2016 3:26 PM CDT) athologist Signature WBC 6.9 4.0 - 11.0 11/17/2016 [facility] 10e9/L 4:50 PM CDT [facility] RBC Count 4.16 3.8 - 5.2 11/17/2016 [facility] 10e12/L 4:50 PM CDT [facility] Hemoglobin 13.0 11.7 - 11/17/2016 [facility] 15.7 g/dL 4:50 PM CDT [facility] Hematocrit 39.2 35.0 - 11/17/2016 [facility] 47.0 % 4:50 PM CDT [facility] MCV 94 78 - 100 11/17/2016 [facility] fl 4:50 PM CDT [facility] MCH 31.3 26.5 - 11/17/2016 [facility] 33.0 pg 4:50 PM CDT [facility] MCHC 33.2 31.5 - 11/17/2016 [facility] 36.5 g/dL 4:50 PM CDT [facility] RDW 12.1 10.0 - 11/17/2016 [facility] 15.0 % 4:50 PM CDT [facility] Platelet Count 300 150 - 450 11/17/2016 [facility] 10e9/L 4:50 PM CDT [facility] Specimen Anatomical Collection Method Collection Time Receive d Time (Source) Location / / Volume Laterality Blood specimen 11/17/2016 3:26 PM 017 3:28 (specimen) CDT PM CDT Hermelinda Lang MD LAB - BLOOD ORDERABLES Performing Organization Address City/State/ZIP Code Phon e Number [facility] [address] [place] [address] [facility] (ABNORMAL) Renal panel (11/17/2016 3:26 PM CDT) Analysis Performed At Patho logist Time Signature Sodium 136 133 - 144 11/17/2016 [facility] mmol/L 3:37 PM CDT [facility] Potassium 2.8 (L) 3.4 - 5.3 11/17/2016 [facility] mmol/L 3:37 PM CDT [facility] Chloride 98 94 - 109 11/17/2016 [facility] mmol/L 3:37 PM CDT [facility] Carbon Dioxide 32 20 - 32 11/17/2016 [facility] mmol/L 3:37 PM CDT [facility] Anion Gap 5 3 - 14 11/17/2016 [facility] mmol/L 3:37 PM CDT [facility] Glucose 100 (H) 70 - 99 11/17/2016 [facility] mg/dL 3:37 PM CDT [facility] Urea Nitrogen 13 7 - 30 11/17/2016 [facility] mg/dL 3:37 PM CDT [facility] Creatinine 0.87 0.52 - 11/17/2016 [facility] 1.04 mg/dL 3:37 PM CDT [facility] GFR Estimate 66 >60 11/17/2016 [facility] mL/min/1.7 3:[address] Comment: Non GFR Calc GFR Estimate If 80 >60 mL/min/1.7m2 11/17/2016 3:37 P M [facility] Black T [facility] Comment: GFR Calc Calcium 8.8 8.5 - 10.1 mg/dL 11/17/2016 3:37 PM CDT [facility] Phosphorus 3.1 2.5 - 4.5 mg/dL 11/17/2016 3:37 PM CDT [facility] Albumin 3.9 3.4 - 5.0 g/dL 11/17/2016 3:37 PM CDT [facility] Specimen Anatomical Collection Method Collection Time Receive d Time (Source) Location / / Volume Laterality Blood specimen 11/17/2016 3:26 PM 017 3:28 (specimen) CDT PM CDT Hermelinda Lang MD LAB - BLOOD ORDERABLES Performing Organization Address City/State/ZIP Code Phon e Number [address] [address] [facility] documented in this encounter Visit Diagnoses Diagnosis Kidney cyst, acquired - Primary Acquired cyst of kidney documented in this encounter Care Teams Quality Control Lab Technician Relationship Specialty Start Date End Date Carmen Aleman NP PCP - General Nurse Practitioner - Family 08/25/1612/17 documented as of this encounter
--- OUTSIDE RECORDS SUMMARY | 2021-12-03 11:50 | XMS_ITS | Encounter Summary ---
:1955 Author Organization [place] Address [address] [place] [address] Care Team Providers Name Role Phone Bj Pelletier MD Primary Care Provider Reason for Visit Reason Onset Date Comments Panel Management 07/07/2016 Encounter Details Date Type Department Care Team Description 07/07/2016 Telephone [facility] None Panel Management [id number] [place] [address] Social History Tobacco Use Types Packs/Day Years Used Date Smoking Tobacco: Never Smokeless Tobacco: Never Alcohol Use Standard Drinks/Week Comments Yes 0 (1 standard drink = 0.6 oz pure alcoho l) 2-3 times a week Sex Assigned at Date Recorded Female 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 Sending letter. Pt is due for a mammogram. NAIDA Morales Telephone Encounter - Zenaida Ryan - 07/14/2016 11:17 AM CDT 2nd attempt. LVM to call clinic. Pt is due for a mammogram. NAIDA Morales Telephone Encounter - Zenaida Ryan - 07/07/2016 9:56 AM CDT Panel Management Review Patient has the [...] Maintenance? Yes 3. Patient is due for: AAP Composite cancer screening Chart review shows that [...] on filedocumented in this encounter Care Teams Chairman Ceo Relationship Specialty Start Date End Date Bj Pelletier MD PCP - General 10/06/02 08/22/16 XXX RESIGNED XXX [address] [facility] [address] [place] [address] documented as of this encounter
--- OUTSIDE RECORDS SUMMARY | 2021-12-03 11:50 | XMS_ITS | Encounter Summary ---
:1955 Author Organization [facility] Address [address] [place] [address] Care Team Providers Name Role Phone Bj Pelletier MD Primary Care Provider Encounter Details Date Type Department Care Team Description 11/16/2013 [facility]OG[facility] sinusitis [address] XXX RESIGNED XXX [place] [address] [place], [place] [address] [address] [place], [place] [phone] Social History Tobacco Use Types Packs/Day Years Used Date Smoking Tobacco: Never Alcohol Use Standard Drinks/Week Comments Yes 0 (1 standard drink = 0.6 oz pure alcoho l) 2-3 times a week Sex Assigned at Date Recorded Female 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 documented in this encounter Results XR Chest 2 Views (11/16/2013 10:41 AM CDT) Anatomical Region Laterality Modality Chest Computed Radiography Specimen (Source) Anatomical Location Collection Method / Collectio n Time Received Time / Laterality Volume Impressions 11/16/2013 10:42 AM CDT IMPRESSION: Negative. CHACHO DIEHL MD Narrative 11/16/2013 10:42 AM CDT XR CHEST 2 VW 11/16/2013 10:42 AM HISTORY: Acute maxillary sinusitis ? Procedure Note Chacho Diehl MD - 11/16/2013Formatt ing of this note might be different from the original. XR CHEST 2 VW 11/16/2013 10:42 AM HISTORY: Acute maxillary sinusitis IMPRESSION IMPRESSION: Negative. CHACHO DIEHL MD Bj Pelletier MD IMG DIAGNOSTIC IMAGING ORDER [place] documented in this encounter Visit Diagnoses Diagnosis Acute maxillary sinusitis documented in this encounter Care Teams Export Coordinator Relationship Specialty Start Date End Date Bj Pelletier MD PCP - General 10/06/02 08/22/16 XXX RESIGNED XXX [address] [facility] [address] [place] [phone] documented as of this encounter
--- OUTSIDE RECORDS SUMMARY | 2021-12-03 11:50 | XMS_ITS | Encounter Summary ---
:1955 Author Organization [place] Address [facility] 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 exam (Primary Dx) [address] [facility] [id number] [phone] [place], [place] [address] Social History Tobacco Use Types Packs/Day Years Used Date Smoking Tobacco: Never Smokeless Tobacco: Never Alcohol Use Standard Drinks/Week Comments Yes 0 (1 standard drink = 0.6 oz pure alcoho l) 2-3 times a week Sex Assigned at Date Recorded Female 01/06/2021 11:10 AM [facility] documented as of this encounter Last Filed Vital Signs Vital Sign Reading Time Taken Comments Blood Pressure 110/70 03/25/2016 8:06 AM [facility] Pulse 84 03/25/2016 8:06 AM [facility] Temperature 36.6 ??C (97.8 ??F) 03/25/2016 8:06 AM [facility] Respiratory Rate 14 03/25/2016 8:06 AM [facility] Oxygen Saturation 97% 03/25/2016 8:06 AM [facility] Inhaled Oxygen Concentration - - Weight 61 kg (134 lb 8 oz) 03/25/2016 8:06 AM [facility] Height 165.1 cm (5' 5) 03/25/2016 8:06 AM [facility] Body Mass Index 22.38 03/25/2016 8:06 AM [facility] documented in this encounter Patient Instructions Patient InstructionsZenaida Ryan - 03/25/2016 8:00 AM CST Before Your Surgery ??? Call your surgeon [...] and have clean sheets on your bed. [facility] documented in this encounter Progress Notes Carmen Aleman NP - 03/25/2016 8:00 AM CST [facility] [id number] [place] [id number] Dept: [phone] PRE-OP EVALUATION: Today's date: 03/25/2016 Megan Nelsonnis Severiano (: 1955) presents for pre-operative evaluation assessment as requestedby Dr. Lili Nunez. She requires evaluation and anesthesia risk assessment prior to undergoing surgery/procedure for treatment of Radial distal fracture . Proposed procedure: fracture Date of Surgery/ Procedure: 03/26/2016 Time of Surgery/ Procedure: 12 [facility]: [facility] Fax number for surgical facility: [phone] Primary Physician: Bj Pelletier Type of Anesthesia Anticipated: General Patient has a Health Care Directive or Living Will: YES we don't have a copy 1. NO - Do you have a history of heart attack, stroke, stent, bypass or surgery on an artery in the head, neck, heart or legs? 2. NO - Do you ever have any pain or discomfort in your chest? 3. NO - Do you have a history of Heart Failure? 4. NO - Are you troubled by shortness of breath when: walking on the level, up a slight hill or at night? 5. NO - Do you currently have a cold, bronchitis or other respiratory infection? 6. NO - Do you have a cough, shortness of breath or wheezing? 7. NO - Do you sometimes get pains in the calves of your legs when you walk? 8. YES - Do you or anyone in your family have previous history of blood clots? 9. NO - Do you or does anyone in your family have a serious bleeding problem such as prolonged bleeding following surgeries or cuts? 10. NO - Have you ever had problems with anemia or been told to take iron pills? 11. NO - Have you had any abnormal blood loss such as black, tarry or bloody stools, or abnormal vaginal bleeding? 12. NO - Have you ever had a blood transfusion? 13. YES - Have you or any of your relatives ever had problems with anesthesia? Postop nausea 14. NO - Do you have sleep apnea, excessive snoring or daytime drowsiness? 15. NO - Do you have any prosthetic heart valves? 16. NO - Do you have prosthetic joints? 17. NO - Is there any chance that you may be ? HPI: Brief HPI related to upcoming procedure: Patient fell on the icy pavement and has a right distal radial fracture that needs to be surgically repaired. MEDICAL HISTORY: Patient Active Problem List Diagnosis Date Noted ??? Essential hypertension 01/14/2015 Priority: Medium ??? CARDIOVASCULAR SCREENING; LDL GOAL LESS THAN 160 12/15/2009 ??? Cold sore 07/12/2008 ??? Mild persistent asthma 03/09/2005 ??? Stricture and stenosis of esophagus 12/21/2001 ??? Urethral stricture 12/21/2001 Problem list name updated by automated process. Provider to review Past Medical History Diagnosis Date ??? Stricture and stenosis of esophagus Dx , [place] [facility] ??? Urethral stricture unspecified ??? Mild persistent asthma ??? HTN (hypertension) ??? Essential hypertension 01/14/2015 Past Surgical History Procedure Laterality Date ??? C nonspecific procedure x3 1979,1985,1994 ??? Hysterectomy, pap no longer indicated 2007 ??? Stent kidney ??? Hernia repair 2 hernia repairs Current Outpatient Prescriptions Medication Sig Dispense Refill ??? acetaminophen-codeine (TYLENOL #3) 300-30 MG per tablet Take 1 tablet by mouth every 4 hours as needed for pain maximum 3 tablet(s) per day 15 tablet 0 ??? ondansetron (ZOFRAN ODT) 4 MG ODT tab Take 1-2 tablets (4-8 mg) by mouth every 8 hours as neededfor nausea 20 tablet 1 ??? albuterol (ALBUTEROL) 108 (90 BASE) MCG/ACT inhaler Inhale 2 puffs into the lungs every 6 hours as needed for shortness of breath / dyspnea or wheezing 1 Inhaler 1 ??? azithromycin (ZITHROMAX) 250 MG tablet Two tablets first day, then one tablet daily for four days. 6 tablet 0 ??? atenolol (TENORMIN) 50 MG tablet Take 1 tablet (50 mg) by mouth daily 90 tablet 4 ??? MULTI-VITAMIN OR TABS 1 TABLET DAILY ??? B COMPLEX OR None Entered OTC products: None, except as noted above Allergies Allergen Reactions ??? Cat Hair [Cats] ??? Sulfa Drugs Rash ??? Ultram [Tramadol Hcl] Headache Weirdness And sick nasuea, vomiting Latex Allergy: NO Social History Substance Use Topics ??? Smoking status: Never Smoker ??? Smokeless tobacco: Never Used ??? Alcohol Use: Yes Comment: 2-3 times a week History Drug Use No REVIEW OF SYSTEMS: Constitutional, HEENT, cardiovascular, pulmonary, gi and gu systems are negative, except as otherwise noted. EXAM: [facility] 03/29/2005 GENERAL APPEARANCE: healthy, alert and no distress EYES: EOMI,- PERRL, slight irritation noted of conjunctiva HENT: ear canals and TM's normal and nose and mouth without ulcers or lesions NECK: no adenopathy, no asymmetry, masses, or scars and thyroid normal to palpation RESP: lungs clear to auscultation - no rales, rhonchi or wheezes CV: regular rates and rhythm, normal S1 S2, no S3 or S4 and no murmur, click or rub - ABDOMEN: soft, nontender, no HSM or masses and bowel sounds normal MS: right forearm in a soft splint with good CMS. FROM in all extremities. 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 and affect normal/bright LYMPHATICS: No axillary, cervical, inguinal, or supraclavicular nodes DIAGNOSTICS: Coagulation Studies (e.g. INR, PTT, platelet count) Recent Labs Lab Test 02/02/14 0828 04/11/13 NA 140 -- POTASSIUM 4.7 4.7 CR 0.83 0.8 IMPRESSION: Diagnosis/reason for consult: right distal radius fracture. The proposed surgical procedure is considered INTERMEDIATE risk. REVISED CARDIAC RISK INDEX The patient has the following serious cardiovascular risks for perioperative complications such as (OK, PE, VFib and 3?? AV Block): No serious cardiac risks INTERPRETATION: 1 risks: Class II (low risk - 0.9% complication rate) The patient has the following additional risks for perioperative complications: No identified additional risks RECOMMENDATIONS: --Patient is to take all scheduled medications on the day of surgery EXCEPT for modifications listedbelow. APPROVAL GIVEN to proceed with proposed procedure, without further diagnostic evaluation Signed Electronically by: Carmen Aleman NP Copy of this evaluation report is provided to requesting physician. Zeynep Preop Guidelines [facility] documented in this encounter Nursing Notes Anasasha Zenaida B - 03/25/2016 8:06 AM CST Chief Complaint Patient presents with ??? Pre-Op Exam Initial BP 110/70 mmHg Pulse 84 Temp(Src) 97.8 ??F (36.6 ??C) (Oral) Resp 14 Ht 5' 5 (1.651m) Wt 134 lb 8 oz (61.009 kg) BMI 22.38 kg/m2 SpO2 97% LMP 03/29/2005 ? No Estimated body mass index is 22.38 kg/(m^2) as calculated from the following: Height as of this encounter: 5' 5 (1.651 m). Weight as of this encounter: 134 lb 8 oz (61.009 kg). Medication Reconciliation: unable or not appropriate to perform NAIDA Morales [facility] documented in this encounter Plan of Treatment Not on filedocumented as of this encounter Procedures Procedure Name Priority Date/Time Associated Comments Diagnosis COMPREHENSIVE Routine 03/25/2016 8:36 AM Preop general Results for this METABOLIC PANEL [facility] physical exam procedure a re in the results section. CBC WITH PLATELETS Routine 03/25/2016 8:36 AM Preop general Re sults for this [facility] physical exam procedure are in the results section. documented in this encounter Results (ABNORMAL) Comprehensive metabolic panel (03/25/2016 8:36 AM [facility]) [facility] gist Method Time Signature Sodium 137 133 - 144 [place] mmol/L [facility] Potassium 3.2 (L) 3.4 - 5.3 [place] mmol/L [facility] Chloride 98 94 - 109 [place] mmol/L [facility] Carbon Dioxide 31 20 - 32 [place] mmol/L [facility] Anion Gap 8 3 - 14 [place] mmol/L [facility] Glucose 91 70 - 99 [place] mg/dL [facility] Urea Nitrogen 12 7 - 30 [place] mg/dL [facility] Creatinine 0.66 0.52 - [place] 1.04 CLINICS mg/dL [facility] GFR Estimate >90 >60 [place] Non GFR Calc mL/min/1. CLINICS [address]2 [facility] GFR Estimate If >90 >60 [place] Black GFR Calc mL/min/1. CLIN ICS 7m2 [facility] Calcium 9.3 8.5 - [place] 10.1 CLINICS mg/dL [facility] Bilirubin Total 1.1 0.2 - 1.3 [place] mg/dL [facility] Albumin 4.1 3.4 - 5.0 [place] g/dL [facility] Protein Total 7.6 6.8 - 8.8 [place] g/dL [facility] Alkaline 71 40 - 150 [place] Phosphatase U/L [facility] ALT 20 0 - 50 [place] U/L [facility] AST 10 0 - 45 [place] U/L [facility] Specimen Anatomical Collection Method Collection Time Receive d Time (Source) Location / / Volume Laterality Blood specimen 03/25/2016 8:36 AM 017 8:41 (specimen) [facility] AM [facility] Carmen Aleman WIRE WINDING MACHINE OPERATOR LAB - BLOOD ORDERABLES Performing Organization Address City/State/ZIP Code Phon e Number [facility] [address] [place] [address] CBC with platelets (03/25/2016 8:36 AM [facility]) P athologist Signature WBC 6.2 4.0 - 11.0 [place] 10e9/L [facility] RBC Count 4.17 3.8 - 5.2 [place] 10e12/L [facility] Hemoglobin 13.1 11.7 - [facility] 15.7 g/dL [facility] Hematocrit 39.0 35.0 - [facility] 47.0 % [facility] MCV 94 78 - 100 [facility] MCH 31.4 26.5 - [facility] 33.0 pg [facility] MCHC 33.6 31.5 - [facility] 36.5 g/dL [facility] RDW 12.0 10.0 - [facility] 15.0 % [facility] Platelet Count 313 150 - 450 [place] 10e9/L [facility] Specimen Anatomical Collection Method Collection Time Receive d Time (Source) Location / / Volume Laterality Blood specimen 03/25/2016 8:36 AM 017 8:41 (specimen) [facility] AM [facility] Carmen Aleman NP LAB - BLOOD ORDERABLES Performing Organization Address City/[facility]/ZIP Code Phon e Number [facility] [id number] [place] [address] documented in this encounter Visit Diagnoses Diagnosis Preop general physical exam - Primary Other specified pre-operative examinatio n documented in this encounter Care Teams Bonded Structures Repairer Relationship Specialty Start Date End Date Bj Pelletier MD PCP - General 10/06/02 08/22/16 XXX RESIGNED XXX [address] [facility] [address] [place] [address] documented as of this encounter
--- OUTSIDE RECORDS SUMMARY | 2021-12-03 11:50 | XMS_ITS | Encounter Summary ---
:1955 Author Organization [facility] Address [address] [place] [address] Care Team Providers Name Role Phone Bj Pelletier MD Primary Care Provider Reason for Referral Consultation - Closed Specialty Diagnoses / Procedures Referred By Contact Refer red To Contact Diagnoses Allergic rhinitis, cause unspecified Bj Pelletier MD [facility] XXX RESIGNED XXX [address], [address] [facility] [address] [place], [place] [phone] Referral ID Status Reason Start Date Expiration Date Visits Requ ested Visits Authorized [id number] Closed 01/25/2014 07/24/2014 1 1 CUTTING SUPERVISOR Reason for Visit Reason Comments Hypertension f/u, started on Atenolol abo ut 2 mos Recheck Medication Forms biometric form-faxed and yanick led hard copy to pt, copy to chart as well-02/05/14 kah Encounter Details Date Type Department Care Team Description 01/25/2014 Office Visit [facility] Bj Pelletier MD HTN (hypertension) (Primary Dx); Clinic [place] XXX RESIGNED XXX Allergic rhinitis, cause unspecified [address] [place] [address] [place] [phone] (Wo rk) Social History Tobacco Use Types Packs/Day Years Used Date Smoking Tobacco: Never Alcohol Use Standard Drinks/Week Comments Yes 0 (1 standard drink = 0.6 oz pure alcoho l) 2-3 times a week Sex Assigned at Date Recorded Female 01/06/2021 11:10 AM FOAM CUTTING SUPERVISOR documented as of this encounter Last Filed Vital Signs Vital Sign Reading Time Taken Comments Blood Pressure 120/72 01/25/2014 8:51 AM FOAM CUTTING SUPERVISOR Pulse 83 01/25/2014 8:51 AM FOAM CUTTING SUPERVISOR Temperature 36.7 ??C (98 ??F) 01/25/2014 8:51 AM FOAM CUTTING SUPERVISOR Respiratory Rate - - Oxygen Saturation 99% 01/25/2014 8:51 AM FOAM CUTTING SUPERVISOR Inhaled Oxygen Concentration - - Weight 59.4 kg (131 lb) 01/25/2014 8:51 AM FOAM CUTTING SUPERVISOR Height 165.1 cm (5' 5) 01/25/2014 8:51 AM FOAM CUTTING SUPERVISOR Body Mass Index 21.8 01/25/2014 8:51 AM FOAM CUTTING SUPERVISOR documented in this encounter Progress Notes Bj Pelletier MD - 01/25/2014 8:52 AM CST SUBJECTIVE: Megan Lorenzo Severiano is a 58 year old female who presents to clinic today for the following health issues: Hypertension Follow-up ?? Outpatient blood pressures are not being checked. ?? Low Salt Diet: no added salt ?? Amount of exercise or physical activity: yes usually ?? Problems taking medications regularly: No ?? Medication side effects: none ?? Diet: low fat/cholesterol History Substance Use Topics ??? Smoking status: Never Smoker ??? Smokeless tobacco: Not on file ??? Alcohol Use: Yes Comment: 2-3 times a week Problem list and histories reviewed & adjusted, as indicated. Additional history: as documented PROBLEMS TO ADD ON... ALLERGIES i would like a referral to an ENT Doctor ?? Duration: over the years ?? Description: Nasal congestion: YES Sneezing: YES Red, itchy eyes: YES ?? Accompanying signs and symptoms: Sometimes sinus infections ?? History (similar episodes/allergy testing): None ?? Precipitating or alleviating factors: URI ?? Therapies tried and outcome: Antibiotics, OTC Medications Patient Active Problem List Diagnosis ??? ESOPHAGEAL STRICTURE ??? URETHRAL STRICTURE NOS ??? ASTHMA - MILD PERSISTENT ??? Cold Sore ??? CARDIOVASCULAR SCREENING; LDL GOAL LESS THAN 160 Past Surgical History Procedure Laterality Date ??? C nonspecific procedure x3 1979,1984,1994 ??? Hysterectomy, pap no longer indicated 2007 ??? Stent kidney ??? Hernia repair 2 hernia repairs History Substance Use Topics ??? Smoking status: Never Smoker ??? Smokeless tobacco: Not on file ??? Alcohol Use: Yes Comment: 2-3 times a week Family History Problem Relation Age of Onset ??? Heart Father heart attacks with bypass ??? Cancer Mother ovarian cancer ??? Cancer Maternal Grandmother breast cancer ??? Cancer Paternal Aunt cervicle cancer ??? Cancer Paternal Aunt uterin cancer ??? Diabetes Paternal Aunt ??? Hypertension Father ??? Lipids Father ??? Hypertension Brother Problem list, Medication list, Allergies, and Medical/Social/Surgical histories reviewed in [facility] andupdated as appropriate. ROS: C: NEGATIVE for fever, chills, change in weight ENT/MOUTH: HX frequent URI's, rhinorrhea-clear and sinus pressure R: NEGATIVE for significant cough or SOB-Positive for HX ofAsthma CV: NEGATIVE for chest pain, palpitations or peripheral edema CV: NEGATIVE for chest pain, palpitations or peripheral edema and Hx HTN MUSCULOSKELETAL: NEGATIVE for significant arthralgias or myalgia ENDOCRINE: NEGATIVE for temperature intolerance, skin/hair changes HEME/ALLERGY/IMMUNE: NEGATIVE for bleeding problems and allergies PSYCHIATRIC: NEGATIVE for changes in mood or affect OBJECTIVE: BP 120/72 Pulse 83 Temp(Src) 98 ??F (36.7 ??C) (Oral) Ht 5' 5 (1.651 m) Wt 131 lb (59.421 kg) BMI 21.80 kg/m2 SpO2 99% LMP 03/29/2005 ? No Body mass index is 21.8 kg/(m^2). GENERAL: healthy, alert, well nourished, well hydrated, no distress HENT: ear canals- normal; TMs- normal; Nose- normal; Mouth- no ulcers, no lesions NECK: no tenderness, no adenopathy, no asymmetry, no masses, no stiffness; thyroid- normal to palpation RESP: lungs clear to auscultation - no rales, no rhonchi, no wheezes CV: regular rates and rhythm, normal S1 S2, no S3 or S4 and no murmur, no click or rub - ABDOMEN: soft, no tenderness, no hepatosplenomegaly, no masses, normal bowel sounds SKIN: no suspicious lesions, no rashes BACK: no CVA tenderness, no paralumbar tenderness ASSESSMENT/PLAN: Hypertension; controlled Associated with the following complications: None Plan: No changes in the patient's current treatment plan Megan was seen today for hypertension and recheck medication. Diagnoses and associated orders for this visit: HTN (hypertension) - Comprehensive metabolic panel; Future - Lipid panel reflex to direct LDL; Future - atenolol (TENORMIN) 50 MG tablet; Take 1 tablet (50 mg) by mouth daily Allergic rhinitis, cause unspecified - OTOLARYNGOLOGY REFERRAL Follow up with Provider - Plan: RTC in 6 Months for Annual Physical-Fasting (4-hr fast) and labs will be drawn on day of visit. Bj Pelletier MD, [facility] CUTTING SUPERVISOR documented in this encounter Nursing Notes Audrey Hobbs CMA - 01/25/2014 8:53 AM CST Chief Complaint Patient presents with ??? Hypertension f/u, started on Atenolol about 2 mos ??? Recheck Medication Initial BP 120/72 Pulse 83 Temp(Src) 98 ??F (36.7 ??C) (Oral) Ht 5' 5 (1.651 m) Wt 131 lb (59.421 kg) BMI 21.80 kg/m2 SpO2 99% LMP 03/29/2005 ? No Estimated body mass index is 21.8 kg/(m^2) as calculated from the following: Height as of this encounter: 5' 5 (1.651 m). Weight as of this encounter: 131 lb (59.421 kg). BP completed using cuff size: regular CUTTING SUPERVISOR documented in this encounter Miscellaneous Notes Addendum Note - Audrey Hobbs CMA - 02/05/2014 5:12 PM FOAM CUTTING SUPERVISOR Addended by: AUDREY HOBBS on: 02/05/2014 05:12 PM Modules accepted: Orders CUTTING SUPERVISOR Addendum Note - Audrey Hobbs CMA - 02/05/2014 3:33 PM FOAM CUTTING SUPERVISOR Addended by: AUDREY HOBBS on: 02/05/2014 03:33 PM Modules accepted: Orders CUTTING SUPERVISOR documented in this encounter Plan of Treatment Scheduled Referrals Name Type Priority Associated Diagnoses Order S [facility] OTOLARYNGOLOGY REFERRAL Referral Routine Allergic Rhinitis , Ordered: 01/25/2014 Cause Unspecified documented as of this encounter Results Lipid panel reflex to direct LDL (02/02/2014 8:28 AM FOAM CUTTING SUPERVISOR) P athologist Signature Cholesterol 163 <200 mg/dL [facility] Comment: LDL Cholesterol is the primary guide to therapy. The NCEP recommends further evaluation of: patients with cholesterol greater than 200 mg/dL if additional risk facto rs are present, cholesterol greater than 240 mg/dL, triglycerides greater than 1 50 mg/dL, or HDL less than 40 mg/dL. Triglycerides 48 0 - 150 mg/dL [facility] HDL Cholesterol 76 >50 mg/dL [facility] LDL Cholesterol Calculated 77 0 - 129 mg/dL [facility] Comment: LDL Cholesterol is the primary guide to therapy: LDL-cholesterol goal in high risk patients is <100 mg/dL and in very high risk patients is <70 mg/dL. VLDL-Cholesterol 10 0 - 30 mg/dL [facility] Cholesterol/HDL Ratio 2.1 0.0 - 5.0 [facility] Specimen Anatomical Collection Method Collection Time Receive d Time (Source) Location / / Volume Laterality Blood specimen 02/02/2014 8:28 AM 014 8:34 (specimen) FOAM CUTTING SUPERVISOR AM FOAM CUTTING SUPERVISOR Bj Pelletier MD LAB - BLOOD ORDERABLES Performing Organization Address City/State/ZIP Code Phon e Number [facility] [place] [address] [place] [address] [facility] [address] [place], [place] [address] Comprehensive metabolic panel (02/02/2014 8:28 AM FOAM CUTTING SUPERVISOR) athologist Signature Sodium 140 133 - 144 [facility] mmol/L [place] Potassium 4.7 3.4 - 5.3 [facility] mmol/L [place] Chloride 106 94 - 109 [facility] mmol/L [place] Carbon Dioxide 28 20 - 32 [facility] S mmol/L [place] Anion Gap 6 3 - 14 [facility] mmol/L [place] Glucose 93 70 - 99 [facility] mg/dL [place] Comment: Effective 09/13/2013, the reference range for this assay has changed to reflect new instrumentation/methodology. Urea Nitrogen 12 7 - 30 mg/dL [facility] Comment: Effective 09/13/2013, the reference range for this assay has changed to reflect new instrumentation/methodology. Creatinine 0.83 0.52 - 1.04 mg/dL [facility] GFR Estimate 71 >60 mL/min/1.7m2 [facility] Comment: Non GFR Calc GFR Estimate If Black 85 >60 mL/min/1.7m2 [facility] Comment: GFR Calc Calcium 9.0 8.5 - 10.1 mg/dL [facility] Comment: Effective 09/13/2013, the reference range for this assay has changed to reflect new instrumentation/methodology. Bilirubin Total 0.9 0.2 - 1.3 mg/dL [facility] Albumin 4.1 3.4 - 5.0 g/dL [facility] [place] Protein Total 7.4 6.8 - 8.8 g/dL [facility] Alkaline Phosphatase 72 40 - 150 U/L [facility] ALT 15 0 - 50 U/L [facility] AST 10 0 - 45 U/L [facility] Specimen Anatomical Collection Method Collection Time Receive d Time (Source) Location / / Volume Laterality Blood specimen 02/02/2014 8:28 AM 014 8:34 (specimen) FOAM CUTTING SUPERVISOR AM FOAM CUTTING SUPERVISOR Bj Pelletier MD LAB - BLOOD ORDERABLES Performing Organization Address City/State/ZIP Code Phon e Number [facility] [address] [place] [address] [facility] [address] [place], [place] [address] documented in this encounter Visit Diagnoses Diagnosis HTN (hypertension) - Primary Unspecified essential hypertension Allergic rhinitis, cause unspecified documented in this encounter Care Teams Vehicle Calibration Engineer Relationship Specialty Start Date End Date Bj Pelletier MD PCP - General 10/06/02 08/22/16 XXX RESIGNED XXX [address] [facility] [address] [place] [address] documented as of this encounter
--- OUTSIDE RECORDS SUMMARY | 2021-12-03 11:50 | XMS_ITS | Encounter Summary ---
:1955 Author Organization [facility] Address [address] [place] [address] Care Team Providers Name Role Phone Bj Pelletier MD Primary Care Provider Encounter Details Date Type Department Care Team Description 10/30/2013 External Order [facility] Yuridia Bach Results Surgery Clinic MD Anthony [address], [address] [place] [address] Social History Tobacco Use Types Packs/Day Years Used Date Smoking Tobacco: Never Alcohol Use Standard Drinks/Week Comments Yes 0 (1 standard drink = 0.6 oz pure alcoho l) 2-3 times a week Sex Assigned at Date Recorded Female 01/06/2021 11:10 AM DIRECTOR ADVANCED documented as of this encounter Plan of Treatment Not on filedocumented as of this encounter Procedures Procedure Name Priority Date/Time Associated Diagnosis Comme nts MR ABDOMEN W/O & W CONTRAST Routine 10/30/2013 documented in this encounter Results MR Abdomen w/o & w Contrast (10/30/2013) Anatomical Region Laterality Modality Abdomen/Pelvis, SUBRAD MR BODY, UMP MR BODY Other Narrative This result has an attachment that is no t available. Patient Reported IMG MRI ORDERABLES documented in this encounter Visit Diagnoses Not on filedocumented in this encounter Care Teams Staff Field Engineer Relationship Specialty Start Date End Date Bj Pelletier MD PCP - General 10/06/02 08/22/16 XXX RESIGNED XXX [address] [facility] [address] [place] [address] documented as of this encounter
--- OUTSIDE RECORDS SUMMARY | 2021-12-03 11:50 | XMS_ITS | Encounter Summary ---
:1955 Author Organization [facility] Address [address] [place] [address] Care Team Providers Name Role Phone Bj Pelletier MD Primary Care Provider Encounter Details Date Type Department Care Team Description 08/03/2007 Orders Only [facility] Bj Roque MD DIAGNOSIS NOT YET Clinic [place] XXX RESIGNED XXX DEFINED (Primary Dx) [address] [place] [address] [place] [address] [place] [phone] (Wo rk) Social History Tobacco Use Types Packs/Day Years Used Date Smoking Tobacco: Never Alcohol Use Standard Drinks/Week Comments Yes 0 (1 standard drink = 0.6 oz pure alcoho l) 2-3 times a week Sex Assigned at Date Recorded Female 01/06/2021 11:10 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 Bj Pelletier MD PROCEDURES documented in this encounter Visit Diagnoses Diagnosis DIAGNOSIS NOT YET DEFINED - Primary documented in this encounter Care Teams Polish Maker Relationship Specialty Start Date End Date Bj Pelletier MD PCP - General 10/06/02 08/22/16 XXX RESIGNED XXX [address] [facility] [address] [place] [address] documented as of this encounter
--- OUTSIDE RECORDS SUMMARY | 2021-12-03 11:50 | XMS_ITS | Encounter Summary ---
:1955 Author Organization [facility] Address [address] [place] [address] Care Team Providers Name Role Phone Bj Pelletier MD Primary Care Provider Reason for Visit Reason Onset Date Comments Sinus Problem 04/12/2014 Encounter Details Date Type Department Care Team Description 04/12/2014 Telephone [facility] Bj Pelletier MD Sinus Problem [place] XXX RESIGNED XXX [address] [place] [address] [place] [phone] (Wo rk) Social History Tobacco Use Types Packs/Day Years Used Date Smoking Tobacco: Never Smokeless Tobacco: Never Alcohol Use Standard Drinks/Week Comments Yes 0 (1 standard drink = 0.6 oz pure alcoho l) 2-3 times a week Sex Assigned at Date Recorded Female 01/06/2021 11:10 AM SALES AGENT BUSINESS SERVICES documented as of this encounter Miscellaneous Notes Telephone Encounter - Christina Candelario RN - 04/12/2014 11:26 AM CST Attempted to contact pt. Left message on VM that Rx faxed to pharmacy. S AGENT BUSINESS SERVICES Telephone Encounter - Bj Pelletier MD - 04/12/2014 10:52 AM CST Please call and notify pt that prescription faxed to the pharmacy.Thanks! S AGENT BUSINESS SERVICES Telephone Encounter - Christina Candelario RN - 04/12/2014 8:50 AM CST Pt states for 18 days, she has been having sinus pressure, congestion, mostly on the right side. Coughing up green phlegm that is draining. A lot of post nasal dripping. She has to fly to [place] tomorrow and is asking for antibiotics. Using OTC sudafed, delsym, and neti pot. Allergy to sulfa. Please advise. S AGENT BUSINESS SERVICES documented in this encounter Plan of Treatment Not on filedocumented as of this encounter Visit Diagnoses Diagnosis Acute maxillary sinusitis - Primary documented in this encounter Care Teams Digital Camera Technician Relationship Specialty Start Date End Date Bj Pelletier MD PCP - General 10/06/02 08/22/16 XXX RESIGNED XXX [address] [phone] documented as of this encounter
--- OUTSIDE RECORDS SUMMARY | 2021-12-03 11:50 | XMS_ITS | Encounter Summary ---
:1955 Author Organization [facility] Address [address] [place] [address] Care Team Providers Name Role Phone Bj Pelletier MD Primary Care Provider Encounter Details Date Type Department Care Team Description 04/11/2013 External Order [facility] Bj Roque MD Results Clinic [place] XXX RESIGNED XXX [address] [place] [address] [place] [phone] (Wo rk) Social History Tobacco Use Types Packs/Day Years Used Date Smoking Tobacco: Never Alcohol Use Standard Drinks/Week Comments Yes 0 (1 standard drink = 0.6 oz pure alcoho l) 2-3 times a week Sex Assigned at Date Recorded Female 01/06/2021 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 POTASSIUM Routine 04/11/2013 Results for thi s procedure are i n the results section . LIPID PROFILE Routine 04/11/2013 Results for th is procedure are i n the results section . CREATININE Routine 04/11/2013 Results for thi s procedure are i n the results section . AST Routine 04/11/2013 Results for thi s procedure are i n the results section . GLUCOSE Routine 04/11/2013 Results for thi s procedure are i n the results section . GFR ABSTRACT Routine 04/11/2013 Results for thi s procedure are i n the results section . MRI IMAGING - HIM SCAN Routine 08/31/2012 documented in this encounter Results Lab Result - HIM Scan (04/11/2013) Specimen (Source) Anatomical Location Collection Method / Collectio n Time Received Time / Laterality Volume 04/11/2013 Narrative This result has an attachment that is no t available. Provider Outside [facility] NON-BEAKER LAB TESTING Performing Organization Address City/[facility]/ZIP Code Phon e Number EXTERNAL LAB TSH (04/11/2013) athologist Signature TSH 1.2 mcU/mL EXTERNAL LAB Specimen (Source) Anatomical Location Collection Method / Collectio n Time Received Time / Laterality Volume Blood specimen 04/11/2013 (specimen) Provider Outside LAB - BLOOD ORDERABLES Performing Organization Address City/[facility]/ZIP Code Phon e Number EXTERNAL LAB EXTERNAL LAB External Lab Lipid Profile (04/11/2013) [facility] Signature Cholesterol 187 115 - 199 EXTERNAL LAB mg/dL Triglycerides 36 mg/dL EXTERNAL LAB HDL Cholesterol 104 mg/dL EXTERNAL LAB LDL Cholesterol 76 mg/dL EXTERNAL LAB Calculated Specimen (Source) Anatomical Location Collection Method / Collectio n Time Received Time / Laterality Volume Blood specimen 04/11/2013 (specimen) Provider Outside LAB - BLOOD ORDERABLES Performing Organization Address City/State/ZIP Code Phon e Number EXTERNAL LAB EXTERNAL LAB External Lab Creatinine (04/11/2013) athologist Signature Creatinine 0.8 mg/dL EXTERNAL LAB Specimen (Source) Anatomical Location Collection Method / Collectio n Time Received Time / Laterality Volume Blood specimen 04/11/2013 (specimen) Provider Outside LAB - BLOOD ORDERABLES Performing Organization Address City/[facility]/ZIP Code Phon e Number EXTERNAL LAB EXTERNAL LAB External Lab GFR ABSTRACT (04/11/2013) P athologist Signature GFR Estimate >60 ml/min/1.73 EXTERNAL LAB m2 GFR Estimate If >60 ml/min/1.73 EXTERNAL LAB Black m2 Specimen (Source) Anatomical Location Collection Method / Collectio n Time Received Time / Laterality Volume 04/11/2013 Provider Outside LABORATORY Performing Organization Address City/State/ZIP Code Phon e Number EXTERNAL LAB EXTERNAL LAB External Lab Glucose (04/11/2013) athologist Signature Glucose 98 60 - 99 EXTERNAL LAB mg/dL Specimen (Source) Anatomical Location Collection Method / Collectio n Time Received Time / Laterality Volume Blood specimen 04/11/2013 (specimen) Provider Outside LAB - BLOOD ORDERABLES Performing Organization Address City/[facility]/ZIP Code Phon e Number EXTERNAL LAB EXTERNAL LAB External Lab Potassium (04/11/2013) athologist [facility] Potassium 4.7 mmol/L EXTERNAL LAB Specimen (Source) Anatomical Location Collection Method / Collectio n Time Received Time / Laterality Volume Blood specimen 04/11/2013 (specimen) Provider Outside LAB - BLOOD ORDERABLES Performing Organization Address City/State/ZIP Code Phon e Number EXTERNAL LAB EXTERNAL LAB External Lab AST (04/11/2013) athologist Signature AST 18 U/L EXTERNAL LAB Specimen (Source) Anatomical Location Collection Method / Collectio n Time Received Time / Laterality Volume Blood specimen 04/11/2013 (specimen) Provider Outside LAB - BLOOD ORDERABLES Performing Organization Address [facility]/ZIP [facility] Phon e Number EXTERNAL LAB EXTERNAL LAB External Lab Mammogram - HIM Scan (04/11/2013) Anatomical Region Laterality Modality Other Narrative This result has an attachment that is no t available. Provider Outside IMG MAMMOGRAPHY ORDERABLES EKG Cardiac - HIM Scan (04/11/2013) Narrative This result has an attachment that is no t available. Provider Outside ECG ORDERABLES MRI Imaging - HIM Scan (08/31/2012) Anatomical Region Laterality Modality Other Narrative This result has an attachment that is no t available. Provider Outside IMG MRI ORDERABLES documented in this encounter Visit Diagnoses Not on filedocumented in this encounter Care Teams Cad Cam Programmer Relationship Specialty Start Date End Date Bj Pelletier MD PCP - General 10/06/02 08/22/16 XXX RESIGNED XXX [address] [facility] [address] [place] [address] documented as of this encounter
--- OUTSIDE RECORDS SUMMARY | 2021-12-03 11:50 | XMS_ITS | Encounter Summary ---
:1955 Author Organization [place] Address [facility] [place] [address] Care Team Providers Name Role Phone Bj Pelletier MD Primary Care Provider Reason for Referral Consultation - Closed Specialty Diagnoses / Procedures Referred By Contact Refer red To Contact Diagnoses RLQ abdominal pain Bj Pelletier MD [facility] SURGICAL XXX RESIGNED XXX [facility] [address] [facility] [address] [place] [place] [phone] Referral ID Status Reason Start Date Expiration Date Visits Requ ested Visits Authorized [id number] Closed 11/16/2013 05/15/2014 1 1 Reason for Visit Reason Comments Hypertension f/u, reestablish been 5 [address] Dr Pelletier Hernia hx of 2 hernia, has pain in right lower groin currently URI sinus and chest congestion-w ont clear up Encounter Details Date Type Department Care Team Description 11/16/2013 Office Visit [facility] Bj Pelletier MD Cough (Primary Dx); Clinic [facility] XXX RESIGNED XXX Acute maxillary sinusitis; [address] [place] [address] RLQ abdo bernadette pain; [place] [address] [place] [phone] (Wo rk) Social History Tobacco Use Types Packs/Day Years Used Date Smoking Tobacco: Never Alcohol Use Standard Drinks/Week Comments Yes 0 (1 standard drink = 0.6 oz pure alcoho l) 2-3 times a week Sex Assigned at Date Recorded Female 01/06/2021 11:10 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 documented as of this encounter Last Filed Vital Signs Vital Sign Reading Time Taken Comments Blood Pressure 140/94 11/16/2013 9:37 AM CDT Pulse 101 11/16/2013 9:37 AM CDT Temperature 36.7 ??C (98 ??F) 11/16/2013 9:37 AM CDT Respiratory Rate - - Oxygen Saturation 100% 11/16/2013 9:37 AM CDT Inhaled Oxygen Concentration - - Weight 58.5 kg (129 lb) 11/16/2013 9:37 AM CDT Height 162.6 cm (5' 4) 11/16/2013 9:37 AM CDT Body Mass Index 22.14 11/16/2013 9:37 AM CDT documented in this encounter Progress Notes Bj Pelletier MD - 11/16/2013 9:39 AM CDT SUBJECTIVE: Megan Nelsongentry العلي is a 57 year old female who presents to clinic today for the following health issues: 1) I have been having MRI's by Urology at [facility] for a Cyst on my Kidney 2) Sinus infection And cough and I have Asthma Hypertension Follow-up I have a family HX of High blood pressure and was told on several occasions that mine was High-I am on no medications ?? Outpatient blood pressures are being checked at home. Results are elevated. ?? Low Salt Diet: no added salt ?? Amount of exercise or physical activity: usually, URI currently ?? Problems taking medications regularly: No ?? Medication side effects: none ?? Diet: regular (no restrictions) History Substance Use Topics ??? Smoking status: Never Smoker ??? Smokeless tobacco: Not on file ??? Alcohol Use: Yes Comment: 2-3 times a week Problem list and histories reviewed & adjusted, as indicated. Additional history: as documented PROBLEMS TO ADD ON... ALLERGIES ?? Duration: years ?? Description: Nasal congestion: YES Sneezing: no Red, itchy eyes: no ?? Accompanying signs and symptoms: Sinus Pressure ?? History (similar episodes/allergy testing): for several weeks ?? Precipitating or alleviating factors: Seasonal allergies ?? Therapies tried and outcome: Antibiotics Patient Active Problem List Diagnosis ??? ESOPHAGEAL [...] list, Allergies, and Medical/Social/Surgical histories reviewed in [facility] andupdated as appropriate. ROS: C: NEGATIVE for fever, chills, change in weight I: NEGATIVE for worrisome rashes, moles or lesions E: NEGATIVE for vision changes or irritation ENT/MOUTH: Hx sinus infections and nasal congestion R: NEGATIVE for significant cough or SOB CV: NEGATIVE for chest pain, palpitations or peripheral edema GI: NEGATIVE for nausea, abdominal pain, heartburn, or change in bowel habits : NEGATIVE for frequency, dysuria, or hematuria M: some swelling in fingers of both hands N: NEGATIVE for weakness, dizziness or paresthesias E: NEGATIVE for temperature intolerance, skin/hair changes H: NEGATIVE for bleeding problems HEME/ALLERGY/IMMUNE: allergies P: NEGATIVE for changes in mood or affect OBJECTIVE: BP 140/94 Pulse 101 Temp(Src) 98 ??F (36.7 ??C) (Oral) Ht 5' 4 (1.626 m) Wt 129 lb (58.514 kg) BMI 22.13 kg/m2 SpO2 100% LMP 03/29/2005 ? No Body mass index is 22.13 kg/(m^2). GENERAL: healthy, alert and no distress EYES: Eyes grossly normal to inspection, extraocular movements - intact, and PERRL HENT: ear canals and TM's normal, nose and mouth without ulcers or lesions and maxillary sinus tenderness bilateral NECK: no tenderness, no adenopathy, no asymmetry, no masses, no stiffness; thyroid- normal to palpation RESP: lungs clear to auscultation - no rales, no rhonchi, no wheezes CV: regular rates and rhythm, normal S1 S2, no S3 or S4 and no murmur, no click or rub - ABDOMEN: soft, no tenderness, no hepatosplenomegaly, no masses, normal bowel sounds MS: extremities- joint swelling SKIN: no suspicious lesions, no rashes PSYCH: affect normal/bright LYMPHATICS: anterior cervical: no adenopathy posterior cervical: no adenopathy ASSESSMENT/PLAN: Megan was seen today for hypertension, hernia and uri. Diagnoses and associated orders for this visit: Cough Acute maxillary sinusitis - XR Chest 2 Views; Future - fluticasone (FLONASE) 50 MCG/ACT nasal spray; [place] 1-2 sprays into both nostrils daily - amoxicillin-clavulanate (AUGMENTIN) 875-125 MG per tablet; Take 1 tablet by mouth 2 times daily - predniSONE (DELTASONE) 20 MG tablet; Take 2 tablets (40 mg) by mouth daily for 5 days RLQ abdominal pain - GENERAL SURG ADULT REFERRAL Pain in limb - Cancel: XR Finger Right G/E 2 Views; Future - Cancel: XR Finger Left G/E 2 Views; Future - Cancel: XR Finger Right G/E 2 Views; Future - Cancel: XR Finger Left G/E 2 Views; Future - XR Hand Bilateral G/E 3 Views; Future Follow up with Provider - in 2 Months for recheck of BP Bj Pelletier MD, MD [facility] documented in this encounter Nursing Notes Nikki Hobbs CMA - 11/16/2013 9:42 AM CDT Chief Complaint Patient presents with ??? Hypertension f/u, reestablish been [address] Pelletier ??? Hernia hx of 2 hernia, has pain in right lower groin currently ??? URI sinus and chest congestion-wont clear up Initial BP 140/94 Pulse 101 Temp(Src) 98 ??F (36.7 ??C) (Oral) Ht 5' 4 (1.626 m) Wt 129 lb (58.514 kg) BMI 22.13 kg/m2 SpO2 100% LMP 03/29/2005 ? No Estimated body mass index is 22.13 kg/(m^2) as calculated from the following: Height as of this encounter: 5' 4 (1.626 m). Weight as of this encounter: 129 lb (58.514 kg). BP completed using cuff size: large documented in this encounter Plan of Treatment Scheduled Referrals Name Type Priority Associated Diagnoses Order S chedule GENERAL SURG ADULT Referral Routine RLQ abdominal pain Ord ered: 11/16/2013 REFERRAL documented as of this encounter Visit Diagnoses Diagnosis Cough - Primary Acute maxillary sinusitis RLQ abdominal pain Abdominal pain, right lower quadrant Pain in limb documented in this encounter Care Teams Machine Set Up Operator Paper Goods Relationship Specialty Start Date End Date Bj Pelletier MD PCP - General 10/06/02 08/22/16 XXX RESIGNED XXX [address] [facility] [address] [place] [phone] documented as of this encounter
--- OUTSIDE RECORDS SUMMARY | 2021-12-03 11:50 | XMS_ITS | Encounter Summary ---
:1955 Author Organization [place] Address [address] [place] [id number] Care Team Providers Name Role Phone Bj Pelletier MD Primary Care Provider Reason for Visit Reason Onset Date Comments Refill Request 04/25/2014 Ventolin inhaler Encounter Details Date Type Department Care Team Description 04/25/2014 Refill [facility] Bj Pelletier MD Refill Request Clinic [place] XXX RESIGNED XXX (Ventolin inhaler) [address] [place] [address] [place] [phone] (Wo rk) Social History Tobacco Use Types Packs/Day Years Used Date Smoking Tobacco: Never Smokeless Tobacco: Never Alcohol Use Standard Drinks/Week Comments Yes 0 (1 standard drink = 0.6 oz pure alcoho l) 2-3 times a week Sex Assigned at Date Recorded Female 01/06/2021 11:10 AM NUCLEAR MEDICINE TECH documented as of this encounter Miscellaneous Notes Telephone Encounter - Karli Mcleod RN - 04/25/2014 9:28 AM CDT Last OV-01/25/14 Telephone Encounter - Susie Kerr - 04/25/2014 7:03 AM CDT Refill request from [facility] pharmacy for: Ventolin 90MCG inhaler Last O/V: Last Refill: 08/23/13 documented in this encounter Plan of Treatment Not on filedocumented as of this encounter Visit Diagnoses Diagnosis ASTHMA - MILD PERSISTENT - Primary Unspecified asthma documented in this encounter Care Teams Splicing Machine Operator Relationship Specialty Start Date End Date Bj Pelletier MD PCP - General 10/06/02 08/22/16 XXX RESIGNED XXX [address] [facility] [address] [place] [phone] documented as of this encounter
--- OUTSIDE RECORDS SUMMARY | 2021-12-03 11:50 | XMS_ITS | Encounter Summary ---
:1955 Author Organization [place] Address [address] [place] [address] Care Team Providers Name Role Phone Carmen Aleman NEONATAL DOCTOR Primary Care Provider Reason for Referral Consultation - Closed Specialty Diagnoses / Procedures Referred By Contact Refer red To Contact Diagnoses Acquired cyst of kidney Tanja Talavera MD [address] [facility] [address] [place], [place] [address] Referral ID Status Reason Start Date Expiration Date Visits Requ ested Visits Authorized [id number] Closed 11/17/2016 11/17/2017 1 1 Reason for Visit Reason Comments Consult For Referral for kidney cyst aqu ired. Consultation - Closed Specialty Diagnoses / Procedures Referred By Contact Refer red To Contact Diagnoses Acquired cyst of kidney Carmen Aleman, NEONATAL DOCTOR [facility] [address] [place] [address] [place] [address] Phone: Fax: Referral ID Status Reason Start Date Expiration Date Visits Requ ested Visits Authorized [id number] Closed 08/26/2016 08/26/2017 1 1 Encounter Details Date Type Department Care Team Description 11/17/2016 Office Visit [facility] Hermelinda Lang MD [address] [facility] [address] [place], [place] [id number] Benign essential hypertension (Primary D x); Nephrology Clinic Tanja Talavera MD [address] [facility] [address] [facility] [address] [place], [place] [id number] Acquired cyst of kidney; [place] Hypokalemia [address] [facility] [place] [address] Social History Tobacco Use Types Packs/Day Years Used Date Smoking Tobacco: Never Smokeless Tobacco: Never Alcohol Use Standard Drinks/Week Comments Yes 0 (1 standard drink = 0.6 oz pure alcoho l) 2-3 times a week Sex Assigned at Date Recorded Female 01/06/2021 11:10 AM 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 Do not take hydrochlorothiazide 2. You have to have a blood work on Wednesday , November 20 3. Start taking a new blood pressure medication Lisinopril 5 mg daily after your blood work on Wednesday 4. Monitor your blood pressure twice daily and keep records for us to review. Call ANTONIA Velascoy 5. You should follow up with urologist as an outpatient 6. Eat jessy potassium diet documented in this encounter Progress Notes Tanja Talavera MD - 11/17/2016 4:00 PM CDT Assessment and Plan: 1. Hypokalemia-etiology unclear, needs further investigation. Likely secondary to HCTZ. -we will check renin and aldosterone levels on 11/20 to rule out primary hyperaldosteronism -we will repeat potassium level on 11/20 -patient was strongly advise to eat high potassium diet 2. Hypertension-patient's blood pressure is suboptimally controlled -we will discontinue HCTZ given hypokalemia -start Lisinopril 5 mg daily after blood work on 11/20/2016 -patient was advised to monitor her blood pressure twice daily and keep records for us to review 3. Renal lesion-patient was advised to follow up with Urologist as an outpatient. Referral was placed Assessment and plan was discussed with patient and she voiced her understanding and agreement. Patient was seen and discussed with Dr.Manske Tanja Talavera MD Nephrology Fellow Consult: Megan العلي was seen in consultation at the request of DUKE Aleman for evaluation ofrenal cyst. Reason for Visit: Megan العلي is a 60 year old female with PMHx significant for mild persistent asthma, HTN and ovarian cysts s/p total hysterectomy with bilateral salpingectomy in 10/2006 . Post-op period wascomplicated by right ureteral obstruction which was treated with percutaneous nephrostomy tube and ureteral stent. Subsequently on 10/19/2006, the patient had temporary right nephrostomy tube removed, then 6 weeks later stent was removed as well. As per paper records form [facility]: CT abd/pelvis in 01/2012 showed a solid appearing, exophytic lesion arising from the lower pole of the right kidney which measures 12 x 12 x 10 mm. MRI abdomen in02/2012 showed 0.8 cm exophytic cortical lesion in the lower pole of the right kidney. Follow up retroperitoneal ultrasound 01/26/2016 showed left kidney 10.3 cm in size and right kidney 10 cm in size with normal cortical thickness, no hydronephrosis. There was 1.1x1.1x1.1 cm exophytic hypoechoic massat the lower pole. It appears stable compared to the 04/20/2012 ultrasound at which time measured 0.9 cm. The sonographic appearance favors a solid mass, less likely a cyst with internal echoes indeterminate right renal mass. Patient states that she never been evaluated by urologist in the past. Patient denies family historyof kidney disease or renal cancer. She dose have history of hypertension. She takes hydrochlorothiazide 25 mg daily for it. She dose not check her blood pressure at home. Her blood pressure today is 143/89 mmHg. Patient reports that herfather had hypertension Her renal function is stable. She did have creatinine of 0.8 in 10/2006, then creatinine of 0.8 mg/dl 01/2014, then creatinine of 0.6 mg/dl in 03/2016, then creatinine of 0.7 mg/dl in 08/2016. She was admitted to cardiology service 08/23- 08/24/2016 for evaluation of chest pain. Extensive work up showedno evidence of acute coronary syndrome. It was felt that patient's chest pain was likely non-cardiacin nature and possibly related to acid reflux. Patient's laboratory work up on 08/23 showed mild hypokalemia of 3.1 which resolved on following day with supplementation. Today patient's laboratory work up showed creatinine of 0.87 mg/dl and hypokalemia of 2.8. Urine analysis is unremarkable. CBC is within acceptable limits. Iron replete. Vitamin D level is within acceptable limits. Patient denies: fever, chills, weight loss, dizziness, adenopathy, sore throat, rhinorrhea, cough, shortness of breath , chest pain, palpitations, orthopnea, nausea, vomiting, abdominal pain, diarrhea,changes in bowel habits, dysuria, urinary frequency, urgency, hematuria, rash HPI: Kidney Disease and Medical Hx: h/o HTN: Yes Usual BP: Not checked h/o DM: No h/o Protein in Urine: No h/o Blood in Urine: No h/o Kidney Stones:No h/o UTI No h/o Chronic NSAID Use: No Previous Transplant Hx: No ROS: A comprehensive review of systems was obtained and negative, except as noted in the HPI or PMH. Active Medical Problems: Patient Active Problem List Diagnosis ??? Stricture and stenosis of esophagus ??? Urethral stricture ??? Mild persistent asthma ??? Cold sore ??? CARDIOVASCULAR SCREENING; LDL GOAL LESS THAN 160 ??? Essential hypertension PMH: Medical record was reviewed and PMH was discussed with patient and noted below. Past Medical History: Diagnosis Date ??? Essential hypertension 01/14/2015 ??? HTN (hypertension) ??? Melanoma (H) 01/2016 ??? Mild persistent asthma ??? Stricture and stenosis of esophagus Dx , [facility] ??? Urethral stricture unspecified PSH: Past Surgical History: Procedure Laterality Date ??? C NONSPECIFIC PROCEDURE x3 1979,1984,1994 ??? HERNIA REPAIR 2 hernia repairs ??? HYSTERECTOMY, PAP NO LONGER INDICATED 2006 ??? STENT 09/2016 kidney ??? SURGICAL PATHOLOGY EXAM 02/2016 Family Hx: Family History Problem Relation Age of Onset ??? CANCER Mother ovarian cancer ??? HEART DISEASE Father heart attacks with bypass ??? Hypertension Father ??? Lipids Father ??? C.A.D. Father ??? CANCER Maternal Grandmother breast cancer ??? C.A.D. Paternal Grandfather ??? CANCER Paternal Aunt cervicle cancer ??? CANCER Paternal Aunt uterin cancer ??? DIABETES Paternal Aunt ??? Hypertension Brother ??? CANCER Son testicular Personal Hx: Social History Social History ??? Marital status: Spouse name: N/A ??? Number of children: N/A ??? Years of education: N/A Occupational History ??? Not on file. Social History Main Topics ??? Smoking status: Never Smoker ??? Smokeless tobacco: Never Used ??? Alcohol use Yes Comment: 2-3 times a week ??? Drug use: No ??? Sexual activity: Yes Partners: Male Other Topics Concern ??? Not on file Social History Narrative Allergies: Allergies Allergen Reactions ??? Nicotiana Tabacum Other reaction(s): Breathing Difficulty ??? Cat Hair Extract ??? Cat Hair [Cats] ??? No Clinical Screening - See Comments PN: LW Other1: -CATS ??? Sulfa Drugs Rash ??? Tramadol Other reaction(s): Nausea Headache Weirdness And sick nasuea, vomiting ??? Ultram [Tramadol Hcl] Headache Weirdness And sick nasuea, vomiting Medications: Prior to Admission medications Medication Sig Start Date End Date Taking? Authorizing Provider vitamin E 400 UNIT capsule 08/03/06 Yes Reported, Patient lisinopril (PRINIVIL/ZESTRIL) 5 MG tablet Take 1 tablet (5 mg) by mouth daily 11/20/16 Yes Tanja Talavera MD VITAMIN D, CHOLECALCIFEROL, PO Take 2,500 Units by mouth At Bedtime Yes Unknown, Entered By History Kalaheo-3 Fatty Acids (FISH OIL PO) Take 2 capsules by mouth At Bedtime Yes Unknown, Entered By History Ascorbic Acid (VITAMIN C) 100 MG TABS Take 1,500 mg by mouth At Bedtime 08/03/06 Yes Reported, Patient ASMANEX 30 METERED DOSES 110 MCG/INH inhaler INHALE ONE PUFF DAILY FOR ASTHMA, USE WHEN OUT OF TOWN AND NEBULIZER NOT AVAILABLE 12/11/15 Yes Reported, Patient albuterol (ALBUTEROL) 108 (90 BASE) MCG/ACT inhaler Inhale 2 puffs into the lungs every 6 hours as needed for shortness of breath / dyspnea or wheezing 04/25/14 Yes Bj Pelletier MD MULTI-VITAMIN OR TABS 1 TABLET DAILY at bedtime Yes Reported, Patient B COMPLEX OR 1 tablet orally at bedtime Yes Reported, Patient Vitals: BP 143/89 Pulse 74 Temp 98.3 ??F (36.8 ??C) (Oral) Ht 1.651 m (5' 5) Wt 61.9 kg (136 lb 8 oz) LMP 03/29/2005 SpO2 100% BMI 22.71 kg/m2 Exam: GENERAL APPEARANCE: alert and no distress HENT: mouth without ulcers or lesions LYMPHATICS: no cervical or supraclavicular nodes RESP: lungs clear to auscultation - no rales, rhonchi or wheezes CV: regular rhythm, normal rate, no rub, no murmur EDEMA: no LE edema bilaterally ABDOMEN: soft, nondistended, nontender, bowel sounds normal MS: extremities normal - no gross deformities noted, no evidence of inflammation in joints, no muscle tenderness SKIN: no rash Results: Recent Results (from the past 336 hour(s)) Renal panel Collection Time: 11/17/16 3:26 PM Result Value Ref Range Sodium 136 133 - 144 mmol/L Potassium 2.8 (L) 3.4 - 5.3 mmol/L Chloride 98 94 - 109 mmol/L Carbon Dioxide 32 20 - 32 mmol/L Anion Gap 5 3 - 14 mmol/L Glucose 100 (H) 70 - 99 mg/dL Urea Nitrogen 13 7 - 30 mg/dL Creatinine 0.87 0.52 - 1.04 mg/dL GFR Estimate 66 >60 mL/min/1.7m2 GFR Estimate If Black 80 >60 mL/min/1.7m2 Calcium 8.8 8.5 - 10.1 mg/dL Phosphorus 3.1 2.5 - 4.5 mg/dL Albumin 3.9 3.4 - 5.0 g/dL CBC with platelets Collection Time: 11/17/16 3:26 PM Result Value Ref Range WBC 6.9 4.0 - 11.0 10e9/L RBC Count 4.16 3.8 - 5.2 10e12/L Hemoglobin 13.0 11.7 - 15.7 g/dL Hematocrit 39.2 35.0 - 47.0 % MCV 94 78 - 100 fl MCH 31.3 26.5 - 33.0 pg MCHC 33.2 31.5 - 36.5 g/dL RDW 12.1 10.0 - 15.0 % Platelet Count 300 150 - 450 10e9/L Ferritin Collection Time: 11/17/16 3:26 PM Result Value Ref Range Ferritin 103 8 - 252 ng/mL Iron and iron binding capacity Collection Time: 11/17/16 3:26 PM Result Value Ref Range Iron 84 35 - 180 ug/dL Iron Binding Cap 314 240 - 430 ug/dL Iron Saturation Index 27 15 - 46 % Protein random urine with Creat Ratio Collection Time: 11/17/16 3:29 PM Result Value Ref Range Protein Random Urine <0.05 g/L Protein Total Urine g/gr Creatinine Unable to calculate due to low value 0 - 0.2 g/g Cr UA with Microscopic reflex to Culture Collection Time: 11/17/16 3:29 PM Result Value Ref Range Color Urine Yellow Appearance Urine Clear Glucose Urine Negative NEG^Negative mg/dL Bilirubin Urine Negative NEG^Negative Ketones Urine Negative NEG^Negative mg/dL Specific [place] Urine 1.009 1.003 - 1.035 Blood Urine Negative NEG^Negative pH Urine 7.0 5.0 - 7.0 pH Protein Albumin Urine Negative NEG^Negative mg/dL Urobilinogen mg/dL 0.0 0.0 - 2.0 mg/dL Nitrite Urine Negative NEG^Negative Leukocyte Esterase Urine Negative NEG^Negative Source Midstream Urine WBC Urine <1 0 - 2 /HPF RBC Urine 0 0 - 2 /HPF Squamous Epithelial /HPF Urine <1 0 - 1 /HPF Mucous Urine Present (A) NEG^Negative /LPF Creatinine urine calculation only Collection Time: 11/17/16 3:29 PM Result Value Ref Range Creatinine Urine 48 mg/dL I have seen and examined this patient with the resident. This note reflects our joint assessment andplan. Hermelinda Lang MD documented in this encounter Nursing Notes Na Harvey - 11/17/2016 4:00 PM CDT Chief Complaint Patient presents with ??? Consult For Referral for kidney cyst aquired. Initial BP 143/89 Pulse 74 Temp 98.3 ??F (36.8 ??C) (Oral) Ht 1.651 m (5' 5) Wt 61.9 kg (136 lb 8 oz) LMP 03/29/2005 SpO2 100% BMI 22.71 kg/m2 Estimated body mass index is 22.71 kg/(m^2)as calculated from the following: Height as of this encounter: 1.651 m (5' 5). Weight as of this encounter: 61.9 kg (136 lb 8 oz). Medication Reconciliation: hyacinth Blanco, ADVERTISING SALES CONSULTANT documented in this encounter Plan of Treatment Scheduled Referrals Name Type Priority Associated Diagnoses Order S [facility] UROLOGY ADULT REFERRAL Referral Routine Acquired cyst of k bianca Ordered: 11/17/2016 documented as of this encounter Results Aldosterone (11/20/2016 8:49 AM CDT) P athologist Signature Aldosterone 18.5 ng/dL 11/21/2016 [facility] 11:02 PM CDT [facility] Comment: (Note) INTERPRETIVE INFORMATION: Aldosterone, S [...] reference intervals for this test in the [facility] Test Directory ([facility]). Performed by [employer], [address] [place] [id number] [email or web address], Jose Armando Nair MD, Lab. Director Specimen Anatomical Collection Method Collection Time Receive d Time (Source) Location / / Volume Laterality Blood specimen 11/20/2016 8:49 AM 017 8:50 (specimen) CDT AM CDT Tanja Talavera MD LAB - BLOOD ORDERABLES Performing Organization Address City/State/ZIP Code Phon e Number [facility] [id number] [place] [address] Renin Plasma (11/20/2016 8:49 AM CDT) athologist Signature Renin Activity 2.5 ng/mL/h 11/25/2016 [place] 1:59 PM CDT [facility] Comment: (Note) -- REFERENCE VALUE -- (Peripheral vein specimen) Na-deplete, upright: Mean: 5.9 Range: 2.9-10.8 Na-replete, upright: Mean: 1.0 Range: < or =0.6-3.0 Testing performed by Liquid Chromatograp hy-Tandem Mass Spectrometry (LC-MS/MS). This test was developed and its performa nce characteristics determined by [facility] in a manner co nsistent with CLIA requirements. This test has not been citlalli ared or approved by the U.S. Food and Drug Administration. Test Performed by: [facility] [address] , [place], [place] [address] Specimen Anatomical Collection Method Collection Time Receive d Time (Source) Location / / Volume Laterality Blood specimen 11/20/2016 8:49 AM 017 8:50 (specimen) CDT AM CDT Tanja Talavera MD LAB - BLOOD ORDERABLES Performing Organization Address City/State/ZIP Code Phon e Number [facility] [id number] [place] [address] Basic metabolic panel (11/20/2016 8:49 AM CDT) P athologist Signature Sodium 140 133 - 144 11/20/2016 [facility] mmol/L 2:49 PM CDT [facility] Potassium 4.0 3.4 - 5.3 11/20/2016 [facility] mmol/L 2:49 PM CDT [facility] Chloride 105 94 - 109 11/20/2016 [facility] mmol/L 2:49 PM CDT [facility] Carbon Dioxide 25 20 - 32 11/20/2016 [facility] mmol/L 2:49 PM CDT [facility] Anion Gap 10 3 - 14 11/20/2016 [facility] mmol/L 2:49 PM CDT [facility] Glucose 89 70 - 99 11/20/2016 [facility] mg/dL 2:49 PM CDT [facility] Comment: Fasting specimen Urea Nitrogen 17 7 - 30 mg/dL 11/20/2016 2:49 PM CDT [facility] Creatinine 0.67 0.52 - 1.04 mg/dL 11/20/2016 2:49 PM CD T [facility] GFR Estimate 90 >60 mL/min/1.7m2 11/20/2016 2:49 PM C DT [facility] Comment: Non GFR Calc GFR Estimate If >90 >60 mL/min/1.7m2 11/20/2016 2:49 P M [facility] Black T [facility] Comment: GFR Calc Calcium 8.8 8.5 - 10.1 mg/dL 11/20/2016 2:49 PM CDT [facility] Specimen Anatomical Collection Method Collection Time Receive d Time (Source) Location / / Volume Laterality Blood specimen 11/20/2016 8:49 AM 017 8:50 (specimen) CDT AM CDT Tanja Talavera MD LAB - BLOOD ORDERABLES Performing Organization Address City/State/ZIP Code Phon e Number [facility] [address] [place] [address] documented in this encounter Visit Diagnoses Diagnosis Benign essential hypertension - Primary Essential hypertension, benign Acquired cyst of kidney Hypokalemia Hypopotassemia documented in this encounter Care Teams Continuous Pillowcase Cutter Relationship Specialty Start Date End Date Carmen Aleman NEONATAL DOCTOR PCP - General Nurse Practitioner - Family 08/25/1612/17 documented as of this encounter
--- OUTSIDE RECORDS SUMMARY | 2021-12-03 11:50 | XMS_ITS | Encounter Summary ---
:1955 Author Organization [place] Address [address] [place] [address] Care Team Providers Name Role Phone Bj Pelletier MD Primary Care Provider Reason for Visit Reason Comments Consult incisional hernia Encounter Details Date Type Department Care Team Description 02/05/2014 Office Visit [facility] Isreal Yuridia Abdomi nal pain, right upper quadrant (Primary Dx); Surgery Clinic MD Anthony Right groin p [address], [address] [place] [address] Social History Tobacco Use Types Packs/Day Years Used Date Smoking Tobacco: Never Smokeless Tobacco: Never Alcohol Use Standard Drinks/Week Comments Yes 0 (1 standard drink = 0.6 oz pure alcoho l) 2-3 times a week Sex Assigned at Date Recorded Female 01/06/2021 11:10 AM WATCHER LOOKOUT TOWER documented as of this encounter Last Filed Vital Signs Vital Sign Reading Time Taken Comments Blood Pressure 112/76 02/05/2014 9:47 AM WATCHER LOOKOUT TOWER Pulse 72 02/05/2014 9:47 AM WATCHER LOOKOUT TOWER Temperature - - Respiratory Rate - - Oxygen Saturation - - Inhaled Oxygen Concentration - - Weight 59 kg (130 lb) 02/05/2014 9:47 AM WATCHER LOOKOUT TOWER pt report ed Height 165.1 cm (5' 5) 02/05/2014 9:47 AM WATCHER LOOKOUT TOWER pt repor melina Body Mass Index 21.63 02/05/2014 9:47 AM WATCHER LOOKOUT TOWER documented in this encounter Progress Notes Yuridia Bach MD - 02/05/2014 9:47 AM CST HPI ROS (Review of Systems): GASTROINTESTINAL: Positive for abdominal pain and constipation. Physical Exam Assesment/Plan: Abdominal pain in the right upper quadrant x 2 years and right groin x 3 years (since her TEPP repair of a recurrent R femoral hernia at [place] in 2010). No palpable hernias on exam. Thislikely represents an abdominal wall muscle strain vs occult hernia. I will attempt to obtain and review the MRI of the abdomen performed in October of this year at the [facility]. This will show us the right upper quadrant abdominal wall but will not show us the right inguinal and femoral regions. I have cautioned Megan that small femoral and inguinal hernias can be difficult to detect on physicalexam. For that reason I have offered her a CT scan of the pelvis with valsalva to better evaluate this area. Alternatively we can continue with watchful waiting. If her symptoms progress or if she notices a lump she will return to see me promptly. HPI: Megan is a 58 year old female who presents for evaluation of abdominal pain in the right upper quadrant and right groin. She first noticed the right upper quadrant pain two years ago. The pain is intermittent. It occurs randomly. There is no association with eating or activity. The right groin pain has occurred intermittently since her laparoscopic repair of a recurrent right femoral hernia in 2010 at the [facility]. The frequency of episodes has increased to monthly. This also occurs randomly. Hermost recent episode was well driving. She has been doing a lot of walking and driving for her job. She occasionally lifts her 1-year-old granddaughter. Lifting, coughing, sneezing, bearing down to havea bowel movements does not trigger pain. Negative for associated symptoms of nausea, vomiting and bloating. She has not noticed an associated lump. She has had a previous herniorrhaphy in this location(Open right femoral hernia repair with polypropylene mesh 2005, laparoscopic TEPP repair of recurrent right femoral hernia with physeomesh in 2010). Her employment does not require heavy lifting. Constipation: Yes Cough: No Diabetes: No Current Smoker: No Past Medical History: has a past medical history of Stricture and stenosis of esophagus; Urethral stricture unspecified; Mild persistent asthma; and HTN (hypertension). Right renal mass followed at [place] Past Surgical History: Past Surgical History Procedure Laterality Date ??? C nonspecific procedure x3 1979,1984,1994 ??? Hysterectomy, pap no longer indicated 2007 ??? Stent kidney ??? Hernia repair 2 hernia repairs Additional abdominal operations: Laparoscopic-assisted hysterectomy 2007, Open right femoral hernia repair with polypropylene mesh 2005 [place], laparoscopic TEPP repair of recurrent right femoral hernia with physeomesh in 2011 [place]. Social History: History Social History ??? Marital Status: Spouse Name: N/A Number of Children: N/A ??? Years of Education: N/A Occupational History ??? Not on file. Social History Main Topics ??? Smoking status: Never Smoker ??? Smokeless tobacco: Never Used ??? Alcohol Use: Yes Comment: 2-3 times a week ??? Drug Use: No ??? Sexual Activity: Partners: Male Other Topics Concern ??? Not on file Social History Narrative Family History: Family History Problem Relation Age of Onset ??? Heart Father heart attacks with bypass ??? Cancer Mother ovarian cancer ??? Cancer Maternal Grandmother breast cancer ??? Cancer Paternal Aunt cervicle cancer ??? Cancer Paternal Aunt uterin cancer ??? Diabetes Paternal Aunt ??? Hypertension Father ??? Lipids Father ??? Hypertension Brother ??? C.A.D. Father ??? Cancer Son testicular ??? C.A.D. Paternal Grandfather ROS: The 10 point review of systems is negative other than noted in the HPI and above. PE: BP 112/76 Pulse 72 Ht 1.651 m (5' 5) Wt 58.968 kg (130 lb) BMI 21.63 kg/m2 LMP 03/29/2005 ? No General - Well developed, well nourished female in no apparent distress HEENT: Head normocephalic and atraumatic, pupils equal and round, conjunctivae clear, no scleral icterus, mucous membranes moist, external ears and nose normal Neck: Supple without thyromegaly or masses Lymphatic: No cervical, or supraclavicular lymphadenopathy Lungs: Clear to auscultation bilaterally Heart: Regular rate and rhythm, no murmurs Abdomen: abdomen is soft without significant tenderness, masses, organomegaly or guarding Femoral /Inguinal: No masses with valsalva. Extremities: Warm without edema Musculoskeletal: Normal station and gait Neurologic: Nonfocal Psychiatric: Mood and affect appropriate Skin: Without lesions or rashes, or juandice Time spent with the patient with greater that 50% of the time in discussion was 25 minutes. Yuridia Bach MD Please route or send letter to: Primary Care Provider (PCP) and Referring Provider HER LOOKOUT TOWER documented in this encounter Plan of Treatment Not on filedocumented as of this encounter Visit Diagnoses Diagnosis Abdominal pain, right upper quadrant - P rimary Right groin pain Abdominal pain, right lower quadrant documented in this encounter Care Teams Pharmacy Technician Assistant Relationship Specialty Start Date End Date Bj Pelletier MD PCP - General 10/06/02 08/22/16 XXX RESIGNED XXX [address] [facility] [address] [place] [phone] documented as of this encounter
--- OUTSIDE RECORDS SUMMARY | 2021-12-03 11:50 | XMS_ITS | Encounter Summary ---
:1955 Author Organization [place] Address [address] [place] [address] Care Team Providers Name Role Phone Bj Pelletier MD Primary Care Provider Reason for Visit Reason Onset Date Comments Refill Request 07/05/2008 valtrex Encounter Details Date Type Department Care Team Description [facility] [place] XXX RESIGNED XXX (valtrex) [address] [place], [place] [address] [place], [place] [phone] (Wo rk) Social History Tobacco Use Types Packs/Day Years Used Date Smoking Tobacco: Never Alcohol Use Standard Drinks/Week Comments Yes 0 (1 standard drink = 0.6 oz pure alcoho l) 2-3 times a week Sex Assigned at Date Recorded Female 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 Telephone Encounter - Bj Pelletier - 07/10/2008 12:30 PM CDT Need MD Visit Telephone Encounter - Chacho Humphrey - 07/06/2008 4:43 PM CDT The Valtrex dose differs according to the different conditions being treated. Her record isn't clearon what dose of Valtrex she has taken and for what indication. Need more information. Telephone Encounter - Karli Lyman - 07/05/2008 12:26 PM CDT Pt called stating that she made an appt for next . See message below, MD auth needed. Telephone Encounter - Norma Juarez - 07/05/2008 12:20 PM CDT Pharm RF request for Valtrex. Last OV 10/11/06. No record of Valtrex orders in past Med Hx. Pt said she had 2 valtrex remaining 3 wks ago when recurrence of shingle Sx appeared so took the 2 tabs. Advised MD appt. (she does not have blisters at this time, they went away after taking 2 days Valtrex 3 wks ago). She now just has pain in feet. documented in this encounter Plan of Treatment Not on filedocumented as of this encounter Visit Diagnoses Not on filedocumented in this encounter Care Teams Fig Washer Relationship Specialty Start Date End Date Bj Pelletier MD PCP - General 10/06/02 08/22/16 XXX RESIGNED XXX [address] [place] [phone] documented as of this encounter
--- OUTSIDE RECORDS SUMMARY | 2021-12-03 11:50 | XMS_ITS | Encounter Summary ---
:1955 Author Organization [place] Address [address] [place] [address] Care Team Providers Name Role Phone AlemanCarmen magdaleno Reji HEALTH PROGRAM SPECIALIST Primary Care Provider Encounter Details Date Type Department Care Team Description 11/17/2016 Orders Only [facility] Lab Kidney cyst, acquired [address] 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 PROTEIN RANDOM URINE Routine 11/17/2016 3:29 PM Kidney cyst, R esults for this CDT acquired procedure are i n the results section. CREATININE URINE Routine 11/17/2016 3:29 PM Kidney cyst, Resul ts for this CALCULATION ONLY (LAB CDT acquired proced ure are in ONLY) the results section. VITAMIN D DEFICIENCY Routine 11/17/2016 3:26 PM Kidney cyst, R esults for this SCREENING CDT acquired procedure are i n the results section. RENAL PANEL Routine 11/17/2016 3:26 PM Kidney cyst, Results f or this CDT acquired procedure are i n the results section. PARATHYROID HORMONE Routine 11/17/2016 3:26 PM Kidney cyst, Re sults for this INTACT CDT acquired procedure are i n the results section. IRON AND IRON BINDING Routine 11/17/2016 3:26 PM Kidney cyst, Results for this CAPACITY CDT acquired procedure are i n the results section. FERRITIN Routine 11/17/2016 3:26 PM Kidney cyst, Results f or this CDT acquired procedure are i n the results section. CBC WITH PLATELETS Routine 11/17/2016 3:26 PM Kidney cyst, Res ults for this CDT acquired procedure are i n the results section. documented in this encounter Results Creatinine urine calculation only (11/17/2016 3:29 PM CDT) P athologist Signature Creatinine 48 mg/dL 11/17/2016 [place] Urine 4:04 PM T [facility] Specimen Anatomical Collection Method Collection Time Receive d Time (Source) Location / / Volume Laterality 11/17/2016 3:29 PM 7 3:31 CDT PM CDT Hermelinda Lang MD LAB - URINE ORDERABLES Performing Organization Address City/State/ZIP Code Phon e Number M [facility] [address] [address] [facility] [address] [phone], [facility] [phone] (ABNORMAL) UA with Microscopic reflex to Culture (11/17/2016 3:29 PM CDT) Patholo gist Method Time Signature Color Urine Yellow 11/17/2016 [facility] 3:48 PM CDT [facility] Appearance Urine Clear 11/17/2016 [facility] F 3:48 PM CDT [facility] Glucose Urine Negative NEG^Negat 11/17/2016 [facility] gurwinder mg/dL 3:48 PM CDT [facility] Bilirubin Urine Negative NEG^Negat 11/17/2016 [facility] gurwinder 3:48 PM CDT [facility] Ketones Urine Negative NEG^Negat 11/17/2016 [facility] gurwinder mg/dL 3:48 PM CDT [facility] Specific [place] 1.009 1.003 - 11/17/2016 [place] O F Urine 1.035 3:48 PM CDT [facility] Blood Urine Negative NEG^Negat 11/17/2016 [facility] gurwinder 3:48 PM CDT [facility] pH Urine 7.0 5.0 - 7.0 11/17/2016 [facility] pH 3:48 PM CDT [facility] Protein Albumin Negative NEG^Negat 11/17/2016 [facility] Urine gurwinder mg/dL 3:48 PM CDT [facility] Urobilinogen 0.0 0.0 - 2.0 11/17/2016 [facility] mg/dL mg/dL 3:48 PM CDT [facility] Nitrite Urine Negative NEG^Negat 11/17/2016 [facility] gurwinder 3:48 PM CDT [facility] Leukocyte Negative NEG^Negat 11/17/2016 [facility] Esterase Urine gurwinder 3:48 PM CDT [facility] Source Midstream 11/17/2016 [facility] Urine 3:31 PM CDT [facility] WBC Urine <1 0 - 2 11/17/2016 [facility] /HPF 3:48 PM CDT [facility] RBC Urine 0 0 - 2 11/17/2016 [facility] /HPF 3:48 PM CDT [facility] Squamous <1 0 - 1 11/17/2016 [facility] Epithelial /HPF /HPF 3:48 PM CDT [facility] Mucous Urine Present (A) NEG^Negat 11/17/2016 [facility] gurwinder /LPF 3:48 PM CDT [facility] Specimen (Source) Anatomical Collection Method Collection Time Re ceived Time Location / / Volume Laterality Examination of 11/17/2016 3:29 11/17/2016 3:31 midstream urine PM CDT PM CDT specimen (procedure) Hermelinda Lang MD LAB - URINE ORDERABLES Performing Organization Address City/State/ZIP Code Phon e Number [address] [address] [facility] Protein random urine with Creat Ratio (11/17/2016 3:29 PM CDT) Patholo gist Method Time Signature Protein Random <0.05 g/L 11/17/2016 [place] Urine 4:06 PM CDT [facility] Protein Total Unable to 0 - 0.2 11/17/2016 [place] Urine g/gr calculate due g/g Cr 4:06 PM CDT [facility] Creatinine to low value HOSPITAL Specimen Anatomical Collection Method Collection Time Receive d Time (Source) Location / / Volume Laterality Urine specimen 11/17/2016 3:29 PM 017 3:31 (specimen) CDT PM CDT Hermelinda Lang MD LAB - URINE ORDERABLES Performing Organization Address City/State/ZIP Code Phon e Number [facility] [address] [place] [address] [facility] [address] [place] [address], [facility] [phone] Vitamin D Deficiency (11/17/2016 3:26 PM CDT) P athologist Signature Vitamin D 54 20 - 75 11/18/2016 [facility] Deficiency ug/L 10:50 AM CDT [place] MEDICAL screening [facility] Comment: Season, race, dietary intake, and treatm ent affect the concentration of 14-xukkrdw-Sezhnfv D. Values may decreas e during winter [...] Organization Address City/State/ZIP Code Phon e Number [address] [address] [facility] Parathyroid Hormone Intact (11/17/2016 3:26 PM CDT) athologist Signature Parathyroid 27 12 - 72 11/17/2016 [facility] Hormone Intact pg/mL 7:59 PM CDT [facility] Specimen Anatomical Collection Method Collection Time Receive d Time (Source) Location / / Volume Laterality Blood specimen 11/17/2016 3:26 PM 017 3:28 (specimen) CDT PM CDT Hermelinda Lang MD LAB - BLOOD ORDERABLES Performing Organization Address City/State/ZIP Code Phon e Number [facility] [address] [place] [address] [facility] Iron and iron binding capacity (11/17/2016 3:26 PM CDT) athologist Signature Iron 84 35 - 180 11/17/2016 [facility] ug/dL 4:05 PM CDT [facility] Iron Binding 314 240 - 430 11/17/2016 [facility] Cap ug/dL 4:05 PM CDT [facility] Iron Saturation 27 15 - 46 % 11/17/2016 [facility] Index 4:05 PM CDT [facility] Specimen Anatomical Collection Method Collection Time Receive d Time (Source) Location / / Volume Laterality Blood specimen 11/17/2016 3:26 PM 017 3:28 (specimen) CDT PM CDT Hermelinda Lang MD LAB - BLOOD ORDERABLES Performing Organization Address City/State/ZIP Code Phon e Number [address] [address] [facility] Ferritin (11/17/2016 3:26 PM CDT) athologist Signature Ferritin 103 8 - 252 11/17/2016 [facility] ng/mL 4:05 PM CDT [facility] Specimen Anatomical Collection Method Collection Time Receive d Time (Source) Location / / Volume Laterality Blood specimen 11/17/2016 3:26 PM 017 3:28 (specimen) CDT PM CDT Hermelinda Lang MD LAB - BLOOD ORDERABLES Performing Organization Address City/State/ZIP Code Phon e Number [address] [address] [facility] CBC with platelets (11/17/2016 3:26 PM CDT) P athologist Signature WBC 6.9 4.0 - 11.0 11/17/2016 [facility] 10e9/L 4:50 PM CDT [facility] RBC Count 4.16 3.8 - 5.2 11/17/2016 [facility] 10e12/L 4:50 PM CDT [facility] Hemoglobin 13.0 11.7 - 11/17/2016 [facility] 15.7 g/dL 4:50 PM CDT [facility] Hematocrit 39.2 35.0 - 11/17/2016 [facility] 47.0 % 4:50 PM CDT [facility] MCV 94 78 - 100 11/17/2016 [facility] fl 4:50 PM CDT [facility] MCH 31.3 26.5 - 11/17/2016 [facility] 33.0 pg 4:50 PM CDT [facility] MCHC 33.2 31.5 - 11/17/2016 [facility] 36.5 g/dL 4:50 PM CDT [facility] RDW 12.1 10.0 - 11/17/2016 [facility] 15.0 % 4:50 PM CDT [facility] Platelet Count 300 150 - 450 11/17/2016 [facility] 10e9/L 4:50 PM CDT [facility] Specimen Anatomical Collection Method Collection Time Receive d Time (Source) Location / / Volume Laterality Blood specimen 11/17/2016 3:26 PM 017 3:28 (specimen) CDT PM CDT Hermelinda Lang MD LAB - BLOOD ORDERABLES Performing Organization Address City/State/ZIP Code Phon e Number [place] [phone] [facility] (ABNORMAL) Renal panel (11/17/2016 3:26 PM CDT) Analysis Performed At Patho logist Time Signature Sodium 136 133 - 144 11/17/2016 [facility] mmol/L 3:37 PM CDT [facility] Potassium 2.8 (L) 3.4 - 5.3 11/17/2016 [facility] mmol/L 3:37 PM CDT [facility] Chloride 98 94 - 109 11/17/2016 [facility] mmol/L 3:37 PM CDT [facility] Carbon Dioxide 32 20 - 32 11/17/2016 [facility] mmol/L 3:37 PM CDT [facility] Anion Gap 5 3 - 14 11/17/2016 [facility] mmol/L 3:37 PM CDT [facility] Glucose 100 (H) 70 - 99 11/17/2016 [facility] mg/dL 3:37 PM CDT [facility] Urea Nitrogen 13 7 - 30 11/17/2016 [facility] mg/dL 3:37 PM CDT [facility] Creatinine 0.87 0.52 - 11/17/2016 [facility] 1.04 mg/dL 3:37 PM CDT [facility] GFR Estimate 66 >60 11/17/2016 [place] [facility] mL/min/1.7 3:37 PM CD[address] Comment: Non GFR Calc GFR Estimate If 80 >60 mL/min/1.7m2 11/17/2016 3:37 P M [facility] Black CDT [facility] Comment: GFR Calc Calcium 8.8 8.5 - 10.1 mg/dL 11/17/2016 3:37 PM CDT [facility] Phosphorus 3.1 2.5 - 4.5 mg/dL 11/17/2016 3:37 PM CDT [facility] Albumin 3.9 3.4 - 5.0 g/dL 11/17/2016 3:37 PM CDT [facility] Specimen Anatomical Collection Method Collection Time Receive d Time (Source) Location / / Volume Laterality Blood specimen 11/17/2016 3:26 PM 017 3:28 (specimen) CDT PM CDT Hermelinda Lang MD LAB - BLOOD ORDERABLES Performing Organization Address City/State/ZIP Code Phon e Number [address] [address] [facility] documented in this encounter Visit Diagnoses Diagnosis Kidney cyst, acquired Acquired cyst of kidney documented in this encounter Care Teams Tape Coater Relationship Specialty Start Date End Date Carmen Aleman, HEALTH PROGRAM SPECIALIST PCP - General Nurse Practitioner - Family 08/25/1612/17 documented as of this encounter
--- OUTSIDE RECORDS SUMMARY | 2021-12-03 11:50 | XMS_ITS | Encounter Summary ---
:1955 Author Organization [place] Address [address] [place] [address] Care Team Providers Name Role Phone Carmen Aleman MEASUREMENT ADVISOR Primary Care Provider Reason for Visit Reason Onset Date Comments Hospital F/U 08/25/2016 Encounter Details Date Type Department Care Team Description 08/25/2016 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 I am calling to follow up and see how things are going for you after your recent emergency visit/hospital/Ustay. Tell me how you are doing now that you are home? I am just fine Discharge Instructions Let's review your discharge instructions. What is/are the follow-up recommendations? Pt. Response: f/u with doctor Has an appointment with your primary care provider been scheduled? No (schedule appointment) When you see the provider, I would recommend that you bring your medications with you. Medications Tell me what changed about your medicines when you discharged? Changes to chronic meds? 0-1 What questions do you have about your medications? None New diagnoses of heart failure, COPD, diabetes, or OR? No Medication reconciliation completed? Yes Was MTM referral placed (*Make sure to put transitions as reason for referral)? No Call Summary What questions or concerns do you have about your recent visit and your follow- up care? none If you have questions or things don't continue to improve, we encourage you contact us through the main clinic number (give number). Even if the clinic is not open, triage nurses are available 07/09 tohelp you. We would like you to know that our clinic has extended hours (provide information). We also have urgent care (provide details on closest location and hours/contact info) Thank you for your time and take care! Jaci Martin RN Telephone Encounter - Karla Olsen RN - 08/25/2016 8:20 AM CDT [facility] 08/24/16 Chief Complaint: Acute Chest Pain ED / Discharge Outreach Protocol Patient Contact Attempt # 1 Was call answered? Yes. May I please speak with <patient name> Is patient available? No. Left message with for patient to call me back. Karla Olsen RN, BSN Follow-up Appointments ?? Follow-up and recommended labs and tests ?? Follow up with primary care provider, [facility], within 7 days for hospital follow- up and discuss blood pressure management. No follow up labs or test are needed. documented in this encounter Plan of Treatment Not on filedocumented as of this encounter Visit Diagnoses Not on filedocumented in this encounter Care Teams Brim Edge Trimmer Relationship Specialty Start Date End Date Carmen Aleman, MEASUREMENT ADVISOR PCP - General Nurse Practitioner - Family 08/25/1612/17 documented as of this encounter
--- OUTSIDE RECORDS SUMMARY | 2021-12-03 11:50 | XMS_ITS | Encounter Summary ---
:1955 Author Organization [place] Address [facility] [place] [address] Care Team Providers Name Role Phone Bj Pelletier MD Primary Care Provider Reason for Visit Reason Onset Date Comments Call Back 02/02/2012 Dialation question Encounter Details Date Type Department Care Team Description 02/02/2012 Telephone [facility] Huy Ackerman Cal l Back (Dialation Clinic oZie ROGER question) [address] [facility] [address] [place], [place] [phone] Social History Tobacco Use Types Packs/Day Years Used Date Smoking Tobacco: Never Alcohol Use Standard Drinks/Week Comments Yes 0 (1 standard drink = 0.6 oz pure alcoho l) 2-3 times a week Sex Assigned at Date Recorded Female 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 States she was had urethral dilation last about 14 months ago. Reports having it done yearly. Requesting to have procedure done. Advised patient that she would need to have a consult first. Scheduled an appointment for 02/03. Patient ok with this plan. Rita Babcock, RN ASSISTANT Telephone Encounter - Jasmine Bain - 02/02/2012 1:39 PM CST Patient wanted to know if Dr. Ackerman does dialation. Please call back with further information at [phone]. Thank you, Jasmine Mendez Solderer ASSISTANT documented in this encounter Plan of Treatment Not on filedocumented as of this encounter Visit Diagnoses Not on filedocumented in this encounter Care Teams Diesel Locomotive Firer/Fireman Relationship Specialty Start Date End Date Bj Pelletier MD PCP - General 10/06/02 08/22/16 XXX RESIGNED XXX [address] [facility] [address] [place] [phone] documented as of this encounter
--- OUTSIDE RECORDS SUMMARY | 2021-12-03 11:50 | XMS_ITS | Encounter Summary ---
:1955 Author Organization [place] Address [address] [place] [address] Care Team Providers Name Role Phone Bj Pelletier MD Primary Care Provider Encounter Details Date Type Department Care Team Description 03/20/2016 Radiant Appointment [facility] [place] MD Bebeto [address] [place] [phone] 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 documented in this encounter Results XR Wrist Right G/E 3 Views (03/20/2016 8:44 PM DIRECTORY CARRIER) Anatomical Region Laterality Modality Right Wrist Right Computed Radiography Specimen (Source) Anatomical Location Collection Method / Collectio n Time Received Time / Laterality Volume Impressions 03/20/2016 9:25 PM DIRECTORY CARRIER IMPRESSION: Distal radius fracture, minimally displaced, no definite intra-articular component. No ulnar frac ture. No definite carpal fracture. DAE ARREAGA MD Narrative 03/20/2016 9:25 PM DIRECTORY CARRIER WRIST THREE VIEWS RIGHT ??03/20/2016 8:44 PM HISTORY: Unspecified injury of right wri st, hand and finger(s), initial encounter COMPARISON: None. Procedure Note Dae Arreaga MD - 03/20/2016Fo rmatting of this note might be different from the original. WRIST THREE VIEWS RIGHT 03/20/2016 8:44 PM HISTORY: Unspecified injury of right wri st, hand and finger(s), initial encounter COMPARISON: None. IMPRESSION: Distal radius fracture, mini garcia displaced, no definite intra-articular component. No ulnar frac ture. No definite carpal fracture. DAE ARREAGA MD Bebeto Lara MD IMG DIAGNOSTIC IMAGING ORDER [place] documented in this encounter Visit Diagnoses Diagnosis Right wrist injury Injury, other and unspecified, elbow, fo rearm, and wrist documented in this encounter Care Teams Group Billing Coordinator Relationship Specialty Start Date End Date Bj Pelletier MD PCP - General 10/06/02 08/22/16 XXX RESIGNED XXX [address] [facility] [address] [place] [phone] documented as of this encounter
--- OUTSIDE RECORDS SUMMARY | 2021-12-03 11:50 | XMS_ITS | Encounter Summary ---
:1955 Author Organization [place] Address [address] [place] [address] Care Team Providers Name Role Phone Bj Pelletier MD Primary Care Provider Reason for Visit Reason Comments RECHECK pt c/o having tingling hands and feet pain present,aches in hands extreme fatigue. Pt had shingles 1 y ear ago. Pt states after taking valtrex sx improve. 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 documented as of this encounter Last Filed Vital Signs Vital Sign Reading Time Taken Comments Blood Pressure 112/72 07/12/2008 2:55 PM CDT Pulse 72 07/12/2008 2:55 PM CDT Temperature - - Respiratory Rate - - Oxygen Saturation - - Inhaled Oxygen Concentration - - Weight 62.1 kg (137 lb) 07/12/2008 2:55 PM CDT Height - - Body Mass Index 23.52 08/17/2006 10:30 AM CDT documented in this encounter Progress Notes Bj Pelletier - 07/14/2008 11:14 AM CDT SUBJECTIVE: Megan Loja Bj العلي, a 52 year old female scheduled an appointment to discuss the following issues: Chief Complaint Patient presents with ??? RECHECK pt c/o having tingling hands and feet pain present,aches in hands extreme fatigue. Pt had shingles 1 year ago. Pt states after taking valtrex sx improve. Medical, social, surgical, and family histories reviewed. ROS: C: NEGATIVE for fever, chills, change in weight I: NEGATIVE for worrisome rashes, moles or lesions E/M: NEGATIVE for ear, mouth and throat problems R: NEGATIVE for significant cough or SOB CV: NEGATIVE for chest pain, palpitations or peripheral edema GI: NEGATIVE for nausea, abdominal pain, heartburn, or change in bowel habits : NEGATIVE for frequency, dysuria, or hematuria OBJECTIVE: BP 112/72 Pulse 72 Wt 137 lb (62.143 kg) LMP Hysterectomy EXAM: GENERAL APPEARANCE: healthy, alert and no distress EYES: EOMI, PERRL HENT: ear canals and TM's normal and nose and mouth without ulcers or lesions RESP: lungs clear to auscultation - no rales, rhonchi or wheezes CV: regular rates and rhythm, normal S1 S2, no S3 or S4 and no murmur, click or rub - ABDOMEN: soft, nontender, no HSM or masses and bowel sounds normal ASSESSMENT/PLAN: 054.9G Cold Sore (primary encounter diagnosis) Comment: Plan: VALTREX 500 MG OR TABS documented in this encounter Nursing Notes 07/12/2008 2:30 PM CDT >> BONILLA PEÑA Julia July 12, 2008 2:56 PM Patient presents with: RECHECK - pt c/o having tingling hands and feet pain present,aches in hands extreme fatigue. Pt hadshingles 1 year ago. Pt states after taking valtrex sx improve. initial BP 112/72 Pulse 72 Wt 137 lb (62.143 kg) LMP Hysterectomy Estimated Body mass index is23.52 kg/(m^2) as calculated from: Height of 5' 4 (1.626 m) as of 08/17/06 Weight of 137 lb (62.143 kg) as of this encounter. 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
--- OUTSIDE RECORDS SUMMARY | 2021-12-03 11:50 | XMS_ITS | Encounter Summary ---
:1955 Author Organization [place] Address [address] [place] [address] Care Team Providers Name Role Phone Bj Pelletier MD Primary Care Provider Encounter Details Date Type Department Care Team Description 02/02/2014 Orders Only [facility] Uns pecified vitamin D deficiency (Primary Dx); [facility] HTN (hypertension) [address] [place] [address] Social History Tobacco Use Types Packs/Day Years Used Date Smoking Tobacco: Never Alcohol Use Standard Drinks/Week Comments Yes 0 (1 standard drink = 0.6 oz pure alcoho l) 2-3 times a week Sex Assigned at Date Recorded Female 01/06/2021 11:10 AM HEAD OF MOBILE documented as of this encounter Miscellaneous Notes Addendum Note - Audrey Hobbs CMA - 02/05/2014 5:03 PM HEAD OF MOBILE Addended by: AUDREY HOBBS on: 02/05/2014 05:03 PM Modules accepted: Orders OF MOBILE documented in this encounter Plan of Treatment Not on filedocumented as of this encounter Procedures Procedure Name Priority Date/Time Associated Comments Diagnosis VITAMIN D DEFICIENCY Routine 02/02/2014 5:08 PM Unspecified Vi tamin Results for this SCREENING HEAD OF MOBILE D Deficiency procedure are i n the results section. LIPID REFLEX TO DIRECT Routine 02/02/2014 8:28 AM HTN (hyperte nsion) Results for this LDL PANEL HEAD OF MOBILE procedure are i n the results section. COMPREHENSIVE Routine 02/02/2014 8:28 AM HTN (hypertension) Re sults for this METABOLIC PANEL HEAD OF MOBILE procedure ar e in the results section. documented in this encounter Results Vitamin D Deficiency (02/02/2014 5:08 PM HEAD OF MOBILE) athologist Signature Vitamin D 36 30 - 75 [facility] Deficiency ug/L [facility] screening Comment: Season, race, dietary intake, and treatm ent affect the concentration of 41-[id number]-Riyvocj D. Values may decrea se during winter months and increase during summer months. Values less than 30 ug/L may indicate Vitamin D deficiency. Vitamin D determiniation is routinely erformed by an immunoassay specific for 25 hydroxyvitamin D3. ??If an individua l is on vitamin D2 (ergocalciferol) supplementation, please specify 25 [place] v itamin D2 and D3 level determination by LCMSMS test VITD23. Specimen Anatomical Collection Method Collection Time Receive d Time (Source) Location / / Volume Laterality Blood specimen 02/02/2014 5:08 PM 014 5:13 (specimen) HEAD OF MOBILE PM HEAD OF MOBILE Bj Pelletier MD LAB - BLOOD ORDERABLES Performing Organization Address City/State/ZIP Code Phon e Number [facility] [address] [place] [address] [facility] Lipid panel reflex to direct LDL (02/02/2014 8:28 AM HEAD OF MOBILE) athologist Signature Cholesterol 163 <200 mg/dL [facility] Comment: LDL Cholesterol is the primary guide to therapy. The NCEP recommends further evaluation of: patients with cholesterol greater than 200 mg/dL if additional risk facto rs are present, cholesterol greater than 240 mg/dL, triglycerides greater than 1 50 mg/dL, or HDL less than 40 mg/dL. Triglycerides 48 0 - 150 mg/dL [facility] [place] HDL Cholesterol 76 >50 mg/dL [facility] [place] LDL Cholesterol Calculated 77 0 - 129 mg/dL [facility] Comment: LDL Cholesterol is the primary guide to therapy: LDL-cholesterol goal in high risk patients is <100 mg/dL and in very high risk patients is <70 mg/dL. VLDL-Cholesterol 10 0 - 30 mg/dL [facility] Cholesterol/HDL Ratio 2.1 0.0 - 5.0 [facility] Specimen Anatomical Collection Method Collection Time Receive d Time (Source) Location / / Volume Laterality Blood specimen 02/02/2014 8:28 AM 014 8:34 (specimen) HEAD OF MOBILE AM HEAD OF MOBILE Bj Pelletier MD LAB - BLOOD ORDERABLES Performing Organization Address City/State/ZIP Code Phon e Number [facility] [place] [address] [place] [address] [facility] [address] [place], [place] [address] Comprehensive metabolic panel (02/02/2014 8:28 AM HEAD OF MOBILE) P athologist Signature Sodium 140 133 - 144 [facility] mmol/L [place] Potassium 4.7 3.4 - 5.3 [facility] mmol/L [place] Chloride 106 94 - 109 [facility] mmol/L [place] Carbon Dioxide 28 20 - 32 [facility] mmol/L [place] Anion Gap 6 3 - 14 [facility] mmol/L [place] Glucose 93 70 - 99 [facility] mg/dL [place] Comment: Effective 09/13/2013, the reference range for this assay has changed to reflect new instrumentation/methodology. Urea Nitrogen 12 7 - 30 mg/dL [facility] Comment: Effective 09/13/2013, the reference range for this assay has changed to reflect new instrumentation/methodology. Creatinine 0.83 0.52 - 1.04 mg/dL [facility] GFR Estimate 71 >60 mL/min/1.7m2 [facility] Comment: Non GFR Calc GFR Estimate If Black 85 >60 mL/min/1.7m2 [facility] Comment: GFR Calc Calcium 9.0 8.5 - 10.1 mg/dL [facility] [place] Comment: Effective 09/13/2013, the reference range for this assay has changed to reflect new instrumentation/methodology. Bilirubin Total 0.9 0.2 - 1.3 mg/dL [facility] Albumin 4.1 3.4 - 5.0 g/dL [facility] [place] Protein Total 7.4 6.8 - 8.8 g/dL [facility] [place] Alkaline Phosphatase 72 40 - 150 U/L [facility] ALT 15 0 - 50 U/L [facility] AST 10 0 - 45 U/L [facility] Specimen Anatomical Collection Method Collection Time Receive d Time (Source) Location / / Volume Laterality Blood specimen 02/02/2014 8:28 AM 014 8:34 (specimen) HEAD OF MOBILE AM HEAD OF MOBILE Bj Peleltier MD LAB - BLOOD ORDERABLES Performing Organization Address City/State/ZIP Code Phon e Number [facility] [address] [place] [address] [facility] [address], [place] [address] documented in this encounter Visit Diagnoses Diagnosis Unspecified vitamin D deficiency - Prima ry HTN (hypertension) Unspecified essential hypertension documented in this encounter Care Teams Welding Production Supervisor Relationship Specialty Start Date End Date Bj Pelletier MD PCP - General 10/06/02 08/22/16 XXX RESIGNED XXX [address] [facility] [address] [place] [address] documented as of this encounter
--- OUTSIDE RECORDS SUMMARY | 2021-12-03 11:50 | XMS_ITS | Encounter Summary ---
:1955 Author Organization [place] Address [address] [place] [address] Care Team Providers Name Role Phone Bj Pelletier MD Primary Care Provider Reason for Visit Reason Comments Erroneous encounter-disregard Encounter Details Date Type Department Care Team Description 02/05/2014 Orders Only [facility] Bj Pelletier MD Unspecified vitamin D Clinic [place] XXX RESIGNED X XX deficiency (Primary Laboratory [address] Dx) [address] [place] [phone] Social History Tobacco Use Types Packs/Day Years Used Date Smoking Tobacco: Never Smokeless Tobacco: Never Alcohol Use Standard Drinks/Week Comments Yes 0 (1 standard drink = 0.6 oz pure alcoho l) 2-3 times a week Sex Assigned at Date Recorded Female 01/06/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
--- OUTSIDE RECORDS SUMMARY | 2021-12-03 11:50 | XMS_ITS | Encounter Summary ---
:1955 Author Organization [place] Address [facility] [place] [address] Care Team Providers Name Role Phone Bj Pelletier MD Primary Care Provider Reason for Visit Reason Comments Urgent Care Fall Encounter Details Date Type Department Care Team Description 03/20/2016 Office Visit [facility] Bebeto Lara, Right wrist pain Urgent Care Jd garsia MD (Primary Dx) [address] [facility] [address] [place] [address] [phone] Social History Tobacco Use Types Packs/Day Years Used Date Smoking Tobacco: Never Smokeless Tobacco: Never Alcohol Use Standard Drinks/Week Comments Yes 0 (1 standard drink = 0.6 oz pure alcoho l) 2-3 times a week Sex Assigned at Date Recorded Female 01/06/2021 11:10 AM LITIGATION COUNSEL documented as of this encounter Last Filed Vital Signs Vital Sign Reading Time Taken Comments Blood Pressure 126/84 03/20/2016 8:26 PM LITIGATION COUNSEL Pulse 78 03/20/2016 8:26 PM LITIGATION COUNSEL Temperature 36.6 ??C (97.8 ??F) 03/20/2016 8:26 PM LITIGATION COUNSEL Respiratory Rate 16 03/20/2016 8:26 PM LITIGATION COUNSEL Oxygen Saturation 98% 03/20/2016 8:26 PM LITIGATION COUNSEL Inhaled Oxygen Concentration - - Weight 59 kg (130 lb) 03/20/2016 8:26 PM LITIGATION COUNSEL Height - - Body Mass Index 21.63 02/05/2014 9:47 AM LITIGATION COUNSEL documented in this encounter Progress Notes Bebeto Lara MD - 03/20/2016 8:28 PM CST SUBJECTIVE: Megan العلي is a 60 year old female who presents to clinic today for the following health issues: Fell on ice today right wrist fell around 30 minutes. She thinks she may have broken her wrist. No nausea or Vomiting. OBJECTIVE: Vital signs as noted IMPRESSION: Distal radius fracture, minimally displaced, no definite intra-articular component. No ulnar fracture. No definite carpal fracture.above. Appearance: moderately ill. Wrist exam: soft tissue tenderness and swelling at the wrist. There does not appear to be angulationbut certainly she is unable to move it Secondary to pain. Distal neurovascular is normal. X-ray: fracture of Distal radius minimally displaced. ASSESSMENT: wrist fracture PLAN: NSAID, ice suggested In addition we did take her to the procedure room. There she was placed in a splint. We also did place her in a sling. Since there is minimal displacement I think she can certainly wait until Wednesday to be seen by orthopedics however She can be seen tomorrow at the orthopedic urgent care. Current Outpatient Prescriptions Medication Sig Dispense Refill ??? acetaminophen-codeine (TYLENOL #3) 300-30 MG per tablet Take 1 tablet by mouth every 4 hours as needed for pain maximum 3 tablet(s) per day 15 tablet 0 ??? albuterol (ALBUTEROL) 108 (90 BASE) MCG/ACT inhaler Inhale 2 puffs into the lungs every 6 hours as needed for shortness of breath / dyspnea or wheezing 1 Inhaler 1 ??? MULTI-VITAMIN OR TABS 1 TABLET DAILY ??? B COMPLEX OR None Entered ??? multivitamin, therapeutic with minerals (MULTI-VITAMIN) TABS tablet ??? Ascorbic Acid (VITAMIN C) 100 MG TABS ??? acetaminophen-codeine (TYLENOL #3) 300-30 MG per tablet ??? hydrochlorothiazide (HYDRODIURIL) 25 MG tablet Take 25 mg by mouth ??? ASMANEX 30 METERED DOSES 110 MCG/INH inhaler INHALE ONE PUFF DAILY FOR ASTHMA, USE WHEN OUT OF TOWN AND NEBULIZER NOT AVAILABLE 3 See orders in [facility]. GATION COUNSEL documented in this encounter Nursing Notes Nicole Flores MA - 03/20/2016 8:31 PM CST Chief Complaint Patient presents with ??? Urgent Care ??? Fall Initial BP 126/84 mmHg Pulse 78 Temp(Src) 97.8 ??F (36.6 ??C) (Oral) Resp 16 Wt 130 lb (58.968 kg) SpO2 98% LMP 03/29/2005 Estimated body mass index is 21.63 kg/(m^2) as calculated from thefollowing: Height as of 02/05/14: 5' 5 (1.651 m). Weight as of this encounter: 130 lb (58.968 kg). Medication Reconciliation: complete Nicole Flores FARM MANAGER GATION COUNSEL documented in this encounter Plan of Treatment Not on filedocumented as of this encounter Results XR Wrist Right G/E 3 Views (03/20/2016 8:44 PM LITIGATION COUNSEL) Anatomical Region Laterality Modality Right Wrist Right Computed Radiography Specimen (Source) Anatomical Location Collection Method / Collectio n Time Received Time / Laterality Volume Impressions 03/20/2016 9:25 PM LITIGATION COUNSEL IMPRESSION: Distal radius fracture, minimally displaced, no definite intra-articular component. No ulnar frac ture. No definite carpal fracture. DAE ARREAGA MD Narrative 03/20/2016 9:25 PM LITIGATION COUNSEL WRIST THREE VIEWS RIGHT ??03/20/2016 8:44 PM [...] this encounter Visit Diagnoses Diagnosis Right wrist pain - Primary Pain in joint, forearm Right wrist injury Injury, other and unspecified, elbow, fo rearm, and wrist documented in this encounter Care Teams Winery Cellar Hand Relationship Specialty Start Date End Date Bj Pelletier MD PCP - General 10/06/02 08/22/16 XXX RESIGNED XXX [address] [facility] [address] [place] [address] documented as of this encounter
--- OUTSIDE RECORDS SUMMARY | 2021-12-03 11:51 | XMS_ITS | Encounter Summary ---
:1955 Author Organization [place] Address [address] [place] [address] Care Team Providers Name Role Phone Bj Pelletier MD Primary Care Provider Reason for Visit Reason Onset Date Comments Results 10/12/2006 Encounter Details Date Type Department Care Team Description 10/12/[address] 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 Baer saw pt 10/11 and is here today. Ask her; visit note is not yet complete. Telephone Encounter - Julianna Reyes - 10/12/2006 2:31 PM CDT Pt calling requesting labwork results from 10/11/06. She verbalizes that today is the 4th day that she has been on Cipro and she still has back pain. Please advise. Thank you. documented in this encounter Plan of Treatment Not on filedocumented as of this encounter Visit Diagnoses Not on filedocumented in this encounter Care Teams Tax Services Specialist Relationship Specialty Start Date End Date Bj Pelletier MD PCP - General 10/06/02 08/22/16 XXX RESIGNED XXX [address] [facility] [address] [place] [phone] documented as of this encounter
--- OUTSIDE RECORDS SUMMARY | 2021-12-03 11:51 | XMS_ITS | Encounter Summary ---
:1955 Author Organization [place] Address [address] [place] [address] Care Team Providers Name Role Phone Bj Pelletier MD Primary Care Provider Reason for Visit Reason Comments Other f/u UC Encounter Details Date Type Department Care Team Description 10/11/2006 Office Visit [facility] Katrin Baer [facility] Jv Davies MD (Primary Dx) [facility] [address] [phone] [place], [place] [id number] Social History Tobacco Use Types Packs/Day Years Used Date Smoking Tobacco: Never Alcohol Use Standard Drinks/Week Comments Yes 0 (1 standard drink = 0.6 oz pure alcoho l) 2-3 times a week Sex Assigned at Date Recorded Female 01/06/2021 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 documented as of this encounter Last Filed Vital Signs Vital Sign Reading Time Taken Comments Blood Pressure 108/66 10/11/2006 3:45 PM CDT Pulse 80 10/11/2006 3:45 PM CDT Temperature - - Respiratory Rate - - Oxygen Saturation - - Inhaled Oxygen Concentration - - Weight 61.2 kg (135 lb) 10/11/2006 3:45 PM CDT Height - - Body Mass Index 23.17 08/17/2006 10:30 AM CDT documented in this encounter Progress Notes Katrin Baer - 10/14/2006 3:41 PM CDT Megan Carmichael is a 50 year old female chief complaint Flanks pain- backshe, started last week, [facility], was told has uti and came here for follow up Onc iprofloxacin, backpain, unchanged REVIEW OF SYSTEMS General: negative for, fever, chills, night sweats GI: positive for flank pain, no n/v/ non radiating however today she says pain is coming to the front : negative for, nocturia, dysuria, frequency, urgency and retention, has had some blood in urine Recent hysterectomy 2 weeks ago Current outpatient prescriptions Medication Sig ??? CIPRO 500 MG OR TABS ONE TABLET TWICE DAILY ??? IBUPROFEN 600 MG OR TABS 1 tab po every 6 hr. with food ??? PREVACID 15 MG OR CPDR 1 CAPSULE DAILY BEFORE EATING ??? ADVAIR DISKUS 100-50 MCG/DOSE IN MISC 1 inhalation bid ??? SENOKOT S 8.6-50 MG OR TABS BP 108/66 Pulse 80 Wt 135 lbs (61.2kg) LMP Hysterectomy Pe Gen- nad The abdomen is soft without tenderness, guarding, mass, rebound or organomegaly. Bowel sounds are normal. has CVA tenderness .no inguinal adenopathy noted. ASSESSMENT: PLAN: 1.backpain- with hematuria- ? Renal colic vs uti, ua positve, have her do cbc, continue ciprofloxacin, in 24 - 48 hours if no improvement, ivp/abd ct to look for kidney stones documented in this encounter Nursing Notes 10/11/2006 3:45 PM CDT >> AMAURY LAO 10/11/2006 3:56 pm Megan Carmichael presents for f/u UC-. Initial BP 108/66 Pulse 80 Wt 135 lbs (61.2kg) LMP Hysterectomy Estimated Body mass index is 23.16 kg/(m^2) as calculated from: Height of 5' 4 (1.626 m) as of 08/17/06 Weight of 135 lbs (61.236 kg) as of this encounter. BP completed using cuff size: regular documented in this encounter Plan of Treatment Not on filedocumented as of this encounter Procedures Procedure Name Priority Date/Time Associated Diagnosis Comme nts HCL CULTURE, URINE Routine 10/11/2006 4:47 PM Backache Nos Res ults for this ([facility]) CDT procedure are i n the results section. HCL UA MICRO IF Routine 10/11/2006 4:06 PM Backache Nos Result s for this POSITIVE CDT procedure are i n the results section. CL AFF CBC WITH Routine 10/11/2006 4:06 PM Backache Nos Result s for this PLATELETS CDT procedure are i n the results section. CL AFF MICRO Routine 10/11/2006 4:06 PM Results f or this EXAM-URINE CDT procedure are i n the results section. documented in this encounter Results CULTURE, URINE ([facility]) (10/11/2006 4:47 PM CDT) Patholo gist Method Time Signature Specimen Midstream [place] Description Urine [facility] Culture Micro 10 to 50,000 colonies/mL Mul tiple species present, probable perineal [place] contamination. [facility] Report status FINAL [place] [id number] [facility] Specimen Anatomical Collection Method Collection Time Receive d Time (Source) Location / / Volume Laterality 10/11/2006 4:47 PM 7 4:52 CDT PM CDT Katrin Baer MD LABORATORY Performing Organization Address City/State/ZIP Code Phon e Number [facility] [address] [id number] [facility] (ABNORMAL) MICRO EXAM-URINE (10/11/2006 4:06 PM CDT) P athologist Signature WBC Urine 2-5 (A) 0 - 2 /HPF [facility] RBC Urine O - 2 0 - 2 /HPF [facility] Squamous EPI Few FEW /LPF [facility] Bacteria Urine Few (A) NEG /HPF [facility] Specimen Anatomical Collection Method Collection Time Receive d Time (Source) Location / / Volume Laterality 10/11/2006 4:06 PM 7 4:11 CDT PM CDT Katrin Baer MD LABORATORY Performing Organization Address [facility] Phon e Number [facility] [address] [place], [place] [address] [address] [facility] (ABNORMAL) CBC WITH PLATELETS (10/11/2006 4:06 PM CDT) Analysis Performed At Patho logist Time Signature WBC 11.8 (H) 4.0 - 11.0 [place] 10e9/L [facility] RBC Count 3.56 (L) 3.8 - 5.2 [place] 10e12/L [facility] Hemoglobin 10.9 (L) 11.7 - [place] 15.7 g/dL [facility] Hematocrit 33.8 (L) 35.0 - [place] 47.0 % [facility] MCV 95 78 - 100 [place] fl [facility] MCH 30.6 26.5 [facility].0 pg [facility] MCHC 32.2 31.5 - [place] 36.5 g/dL [facility] RDW 11.4 10.0 - [place] 15.0 % [facility] Platelet Count 407 150 - 450 [place] 10e9/L [facility] Specimen Anatomical Collection Method Collection Time Receive d Time (Source) Location / / Volume Laterality 10/11/2006 4:06 PM 7 4:11 CDT PM CDT Katrin Baer MD LABORATORY Performing Organization Address [facility]/ZIP Code Phon e Number [place] [address] [address] [place], [place] [address] [address] [facility] (ABNORMAL) UA MICRO IF POSITIVE (10/11/2006 4:06 PM CDT) Patholo gist Method Time Signature Color Urine Yellow [facility] Appearance Urine Clear [facility] Glucose Urine Negative NEG mg/dL [facility] Bilirubin Urine Negative NEG [facility] Ketones Urine Negative NEG mg/dL [facility] Specific [place] <=1.005 1.003 - [place] Urine 1.035 [facility] Blood Urine Moderate (A) NEG [facility] pH Urine 7.0 5.0 - 7.0 [place] pH [facility] Protein Albumin Negative NEG mg/dL [place] Urine [facility] Urobilinogen 0.2 0.2 - 1.0 [place] Urine EU/dL [facility] Nitrite Urine Negative NEG [facility] Leukocyte Small (A) NEG [place] Esterase Urine [facility] Source Midstream [place] Urine [facility] Specimen Anatomical Collection Method Collection Time Receive d Time (Source) Location / / Volume Laterality 10/11/2006 4:06 PM 7 4:11 CDT PM CDT Katrin Baer MD LABORATORY Performing Organization Address City/State/ZIP Code Phon e Number [facility] [address] [place] [address] [address] [facility] documented in this encounter Visit Diagnoses Diagnosis Backache, unspecified - Primary documented in this encounter Care Teams Horse Wrangler Relationship Specialty Start Date End Date Bj Pelletier MD PCP - General 10/06/02 08/22/16 XXX RESIGNED XXX [address] [facility] [address] [place] [phone] documented as of this encounter
--- OUTSIDE RECORDS SUMMARY | 2021-12-03 11:51 | XMS_ITS | Encounter Summary ---
:1955 Author Organization [place] Address [address] [place] [address] Care Team Providers Name Role Phone Bj Pelletier MD Primary Care Provider Encounter Details Date Type Department Care Team Description 11/02/2006 Orders Only [facility] Bj Pelletier MD URINARY SYS SYMPTOM NEC; [facility] XXX RESIGNED XXX URETHRAL STRICTURE NOS [address] [place] [address] [place] [address] [place] [phone] (Wo rk) Social History Tobacco Use Types Packs/Day Years Used Date Smoking Tobacco: Never Alcohol Use Standard Drinks/Week Comments Yes 0 (1 standard drink = 0.6 oz pure alcoho l) 2-3 times a week Sex Assigned at Date Recorded Female 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
--- OUTSIDE RECORDS SUMMARY | 2021-12-03 11:51 | XMS_ITS | Encounter Summary ---
:1955 Author Organization [place] Address [address] [place] [address] Care Team Providers Name Role Phone Bj Pelletier MD Primary Care Provider Encounter Details Date Type Department Care Team Description 10/09/2006 Medical Correspondence [facility] Bj Pelletier MD [facility] XXX RESIGNED XXX [address] [place] [address] [phone] Social History Tobacco Use Types Packs/Day Years Used Date Smoking Tobacco: Never Alcohol Use Standard Drinks/Week Comments Yes 0 (1 standard drink = 0.6 oz pure alcoho l) 2-3 times a week Sex Assigned at Date Recorded Female 01/06/2021 11:[address]INEER 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
--- OUTSIDE RECORDS SUMMARY | 2021-12-03 11:51 | XMS_ITS | Encounter Summary ---
:1955 Author Organization [place] Address [address] [place] [address] Care Team Providers Name Role Phone Bj Pelletier MD Primary Care Provider Encounter Details Date Type Department Care Team Description 11/05/2006 Historic Results INTERFACED REPORT Alexandro Stevens MD [facility] [address] [facility] [address] [place], [place] [address] (Wo rk) Social History Tobacco Use Types Packs/Day Years Used Date Smoking Tobacco: Never Alcohol Use Standard Drinks/Week Comments Yes 0 (1 standard drink = 0.6 oz pure alcoho l) 2-3 times a week Sex Assigned at Date Recorded Female 01/06/2021 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 BASIC METABOLIC PANEL STAT 11/05/2006 5:45 PM Results for this CDT procedure are i n the results section. ROUTINE UA WITH STAT 11/05/2006 5:25 PM Result s for this MICROSCOPIC CDT procedure are i n the results section. URINE CULTURE STAT 11/05/2006 5:25 PM Results for this CDT procedure are i n the results section. documented in this encounter Results (ABNORMAL) Hemogram differential and platelet (11/05/2006 5:45 PM CDT) Patholo gist Method Time Signature MCV 92 78 - 100 [place] fl MCH 30.6 26.5 - [facility] 33.0 pg MCHC 33.4 31.5 - [facility] 36.5 g/dL RDW 12.4 10.0 - [facility] 15.0 % WBC 6.0 4.0 - [facility] 11.0 10e9/L RBC Count 3.72 (L) 3.8 - 5.2 [facility] 10e12/L Hemoglobin 11.4 (L) 11.7 - [facility] 15.7 g/dL Hematocrit 34.1 (L) 35.0 - [facility] 47.0 % % Neutrophils 54 40 - 75 % [facility] % Lymphocytes 27 20 - 48 % [facility] % Monocytes 9 0 - 12 % [facility] % Eosinophils 9 (H) 0 - 6 % [facility] % Basophils 1 0 - 2 % [facility] Platelet Count 288 150 - 450 [place] 10e9/L Absolute 3.2 1.6 - 8.3 [facility] Neutrophil 10e9/L Absolute 1.6 0.8 - 5.3 [facility] Lymphocytes 10e9/L Absolute 0.6 0.0 - 1.3 [facility] Monocytes 10e9/L Absolute 0.5 0.0 - 0.7 [facility] Eosinophils 10e9/L Absolute 0.0 0.0 - 0.2 [facility] Basophils 10e9/L Diff Method Automated [facility] Method Specimen Anatomical Collection Method Collection Time Receive d Time (Source) Location / / Volume Laterality 11/05/2006 5:45 PM 7 5:32 CDT PM CDT Landry Stevens MD LAB - BLOOD ORDERABLES Performing Organization Address City/State/ZIP Code Phon e Number [facility] Basic metabolic panel (11/05/2006 5:45 PM CDT) P athologist Signature Sodium 140 133 - 144 [place] mmol/L Potassium 3.5 3.4 - 5.3 [place] mmol/L Chloride 104 94 - 109 [place] mmol/L Carbon Dioxide 27 20 - 32 [place] mmol/L Glucose 93 60 - 99 [place] mg/dL Urea Nitrogen 9 7 - 30 [place] mg/dL Creatinine 0.84 0.60 - [facility] 1.30 mg/dL GFR Estimate 76 >60 [place] mL/min/1.7 m2 GFR Estimate If >90 >60 [facility] Black mL/min/1.7 m2 Calcium 8.8 8.5 - 10.4 [place] mg/dL Anion Gap 9 6 - 17 [place] mmol/L Specimen Anatomical Collection Method Collection Time Receive d Time (Source) Location / / Volume Laterality 11/05/2006 5:45 PM 7 5:32 CDT PM CDT Landry Stevens MD LAB - BLOOD ORDERABLES Performing Organization Address City/State/ZIP Code Phon e Number [facility] (ABNORMAL) Routine UA with microscopic (11/05/2006 5:25 PM CDT) Component Value Ref Test Analysis Performed At [facility] [place] Method Time Signature Source Catheterized [facility] Urine Color Urine Light Yellow [facility] Appearance Urine Clear [facility] Glucose Urine Negative NEG [facility] mg/dL Bilirubin Urine Negative NEG [facility] Ketones Urine Negative NEG [facility] mg/dL Specific [place] 1.003 1.003 - [facility] Urine 1.035 Blood Urine Large (A) NEG [facility] pH Urine 5.5 5.0 - [facility] 7.0 pH Protein Albumin 30 (A) NEG [facility] Urine mg/dL Urobilinogen Normal 0.0 - [facility] mg/dL 2.0 mg/dL Nitrite Urine Negative NEG [facility] Leukocyte Moderate (A) NEG [facility] Esterase Urine WBC Urine 2 0 - 2 [facility] /HPF RBC Urine 1 0 - 2 [facility] /HPF Squamous <1 0 - 1 [facility] Epithelial /HPF /HPF Urine Bacteria Urine Few (A) NEG /HPF [facility] Specimen Anatomical Collection Method Collection Time Receive d Time (Source) Location / / Volume Laterality 11/05/2006 5:25 PM 7 5:24 CDT PM CDT Landry Stevens MD LAB - URINE ORDERABLES Performing Organization Address City/State/ZIP Code Phon e Number [facility] Urine culture (11/05/2006 5:25 PM CDT) Component Value Ref Test Analysis Performed At [facility] [place] Method Time Signature Specimen Catheterized [facility] Description Urine Culture Micro No growth [facility] Micro Report FINAL [id number] [facility] Status Specimen Anatomical Collection Method Collection Time Receive d Time (Source) Location / / Volume Laterality 11/05/2006 5:25 PM 5:24 CDT PM CDT Landry Stevens MD LAB - MICRO GENERAL ORDERABL ES Performing Organization Address City/State/ZIP Code Phon e Number [facility] documented in this encounter Visit Diagnoses Not on filedocumented in this encounter Care Teams Publishing Agent Relationship Specialty Start Date End Date Bj Pelletier MD PCP - General 10/06/02 08/22/16 XXX RESIGNED XXX [address] [facility] [address] [place] [phone] documented as of this encounter
--- OUTSIDE RECORDS SUMMARY | 2021-12-03 11:51 | XMS_ITS | Encounter Summary ---
:1955 Author Organization [place] Address [address] [place] [address] Care Team Providers Name Role Phone Bj Pelletier MD Primary Care Provider Reason for Visit Reason Onset Date Comments Appointment 07/06/2007 swollen lymph nodes Encounter Details Date Type Department Care Team Description 07/06/2007 Telephone [facility] Bj Pelletier MD Appointment (swollen Clinic [place] XXX RESIGNED XXX lymph nodes) [address] [place], [place] [address] [place], [place] [phone] (Wo rk) Social History Tobacco Use Types Packs/Day Years Used Date Smoking Tobacco: Never Alcohol Use Standard Drinks/Week Comments Yes 0 (1 standard drink = 0.6 oz pure alcoho l) 2-3 times a week Sex Assigned at Date Recorded Female 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 Telephone Encounter - Bj Pelletier - 07/07/2007 1:02 PM CDT Please call and notify pt that prescription faxed to the pharmacy.Thanks! And she cansee next available MD Telephone Encounter - Ban Kennedy - 07/06/2007 12:05 PM CDT Pt has rash, pain, and swelling in armpit x 1mo. She saw her GROUP CIO because she thought it was a breast issue and they said they felt it was lymph nodes and she should see her PCP as soon as she could.First available appt if 07/25/07, can we fit her in sooner or should she see another Dr. With sooner openings? Please advise. Thank you. documented in this encounter Plan of Treatment Not on filedocumented as of this encounter Visit Diagnoses Diagnosis Hidradenitides - Primary Hidradenitis documented in this encounter Care Teams Professional Security Officer Relationship Specialty Start Date End Date Bj Pelletier MD PCP - General 10/06/02 08/22/16 XXX RESIGNED XXX [address] [facility] [address] [place] [address] documented as of this encounter
--- OUTSIDE RECORDS SUMMARY | 2021-12-03 11:51 | XMS_ITS | Encounter Summary ---
:1955 Author Organization [place] Address [address] [place] [address] Care Team Providers Name Role Phone Bj Pelletier MD Primary Care Provider Encounter Details Date Type Department Care Team Description 11/02/2006 Orders Only [facility] Bj Pelletier MD DYSURIA (Primary Dx) Clinic [place] XXX RESIGNED XXX [address] [phone] (Wo rk) Social History Tobacco Use Types Packs/Day Years Used Date Smoking Tobacco: Never Alcohol Use Standard Drinks/Week Comments Yes 0 (1 standard drink = 0.6 oz pure alcoho l) 2-3 times a week Sex Assigned at Date Recorded Female 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
--- OUTSIDE RECORDS SUMMARY | 2021-12-03 11:51 | XMS_ITS | Encounter Summary ---
:1955 Author Organization [place] Address [facility] [place] [address] Care Team Providers Name Role Phone Bj Pelletier MD Primary Care Provider Reason for Visit Reason Onset Date Comments Work Comp 06/23/2006 Pt just got a letter that denies the hernia claim-wants to know if Dr Thompson can rec ommend anything else to try to get this surgery she had appr konstantin by [employer] insurance co? Encounter Details Date Type Department Care Team Description 06/23/2006 Telephone [facility] Noel Thompson Work Comp (Pt just got Clinic Jose Armando Abebe MD a letter that denies [place] XXX RETIRED XXX the hernia claim-wants [address] [place] [address] can recommend anything [phone] else to try to get [phone] this surg arie she had approved by [employer] insurance co?) Social History Tobacco Use Types Packs/Day Years Used Date Smoking Tobacco: Never Alcohol Use Standard Drinks/Week Comments Yes 0 (1 standard drink = 0.6 oz pure alcoho l) 2-3 times a week Sex Assigned at Date Recorded Female 01/06/2021 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 I indicated that I would write another letter if it was thought that that would be helpful. Telephone Encounter - Layne Hercules - 06/23/2006 3:22 PM CDT Pt just got a letter that denied the hernia claim. She wants to know if Dr Thompson can recommend anything else to try to get this claim approved by the [employer] co? Pty already had the herniasurgery done. Pt says that [employer] did have the last letter that Dr Thompson wrote before they denied this claim. (The letter dated 04/13/06.) Please advise. Pt will be at work tomorrow but will try to answer her phone when the doctor calls her back. It's okay to leave a message and she'll call right back as soon as she can. Schuyler Hercules LPN (Chart and denial letter are on Dr Thompson's desk.) documented in this encounter Plan of Treatment Not on filedocumented as of this encounter Visit Diagnoses Not on filedocumented in this encounter Care Teams General Matcher Relationship Specialty Start Date End Date Bj Pelletier MD PCP - General 10/06/02 08/22/16 XXX RESIGNED XXX [address] [facility] 200 [place] [address] documented as of this encounter
--- OUTSIDE RECORDS SUMMARY | 2021-12-03 11:51 | XMS_ITS | Encounter Summary ---
:1955 Author Organization [place] Address [address] [place] [address] Care Team Providers Name Role Phone Bj Pelletier MD Primary Care Provider Encounter Details Date Type Department Care Team Description 10/09/2006 Medical Correspondence [facility] Bj Pelletier , URGENT CARE VISIT Clinic [place] [address] [place] XXX RESIGNED XXX [place] [address] [address] [place], [place] [phone] Social History Tobacco Use Types Packs/Day Years Used Date Smoking Tobacco: Never Alcohol Use Standard Drinks/Week Comments Yes 0 (1 standard drink = 0.6 oz pure alcoho l) 2-3 times a week Sex Assigned at Date Recorded Female 01/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
--- OUTSIDE RECORDS SUMMARY | 2021-12-03 11:51 | XMS_ITS | Encounter Summary ---
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 She wants a straight Cath UA with Gram stain and culture and sensitivities, they want that at [facility]. She has had 3 day history of UTI symptoms, however, she has improving today. She is on Cipro at this time. ALLERGIES: Mold, sulfa, Ultram and cats. MEDICATIONS: Cipro and an inhaler and Prevacid. PAST MEDICAL HISTORY: Asthma, hysterectomy, nephrostomy with a utero stent. SOCIAL HISTORY: Nonsmoker. FAMILY HISTORY: Negative. REVIEW OF SYSTEMS: All negative except as noted in the history of present illness. PHYSICAL EXAMINATION: VITAL SIGNS: Blood pressure 132/85, pulse 85, respiratory rate is 20, temperature is 97.9 and pulseoximetry 98% on room air. GENERAL: This is an alert, cooperative 50-year-old woman complaining a little bit of burning and urination. A little bit of urgency. She did go back to work today she is on her feet all day and felt like there was some pressure in the suprapubic area. SKIN: Warm and dry. HEENT: Head is normocephalic. Eyes are normal for age. Mouth and throat are normal. NECK: Supple. No JVD is noted. LUNGS: Clear to auscultation. No rales, rhonchi, friction rubs or wheezing. HEART: Regular sinus rhythm without murmurs. ABDOMEN: Basically soft, nontender to palpation, no guarding, no rebound and no palpable masses all4 quadrants. GENITOURINARY: External genitalia appear normal, although they are not engorged and there is no redness of the labia. Not tender to palpation. LABORATORY DATA: The urine shows 30 mg per dilution of protein, large blood, moderate leukocyte esterase, 2 white cells per high powered field and 1 red cell per high power field and a few bacteria. Idid culture the urine. Her white count 6000 with a basically normal differential except for 9 eosinophils. The hemoglobin is 11.4, hematocrit is 34.1. Basic metabolic battery is entirely normal. DISCHARGE PLAN: Fluids, continue Cipro, Pyridium 200 mg every 8 hours as needed for burning in urination. DIAGNOSES: Improving urinary tract infection. CONDITION: Stable Electronically signed on 11/08/2006 06:12 by ELIZABETH STEVENS MD MT: [id number] Name: MEGAN SMITH Account: [id number] : 1955 Visit Date: 11/05/2006 Document: [id number] documented in this encounter Plan of Treatment Not on filedocumented as of this encounter Visit Diagnoses Not on filedocumented in this encounter Care Teams Target Aircraft Technician Relationship Specialty Start Date End Date Bj Pelletier MD PCP - General 10/06/02 08/22/16 XXX RESIGNED XXX [address] [facility] 200 [place] [phone] documented as of this encounter
--- OUTSIDE RECORDS SUMMARY | 2021-12-03 11:51 | XMS_ITS | Encounter Summary ---
:1955 Author Organization [place] Address [facility] [place] [address] Care Team Providers Name Role Phone Bj Pelletier MD Primary Care Provider Reason for Visit Reason Onset Date Comments Medication Problem 11/03/2006 Pharmacist says Torito ox is not indicated for uti. Levaquin is. Encounter Details Date Type Department Care Team Description [facility] MD Medication Problem Clinic [place] XXX RESIGNED XXX (Pharmacist says Avelox [address] is not indicated for [place] [address] uti. 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 Telephone Encounter - Bj Pelletier - 11/03/2006 1:25 PM CDT Please call and notify pt that prescription faxed to the pharmacy.Thanks! Telephone Encounter - Sherri Chavira - 11/03/2006 11:07 AM CDT Pt has tolerated Levaquin in the past. Telephone Encounter - Sherri Chavira - 11/03/2006 11:04 AM CDT Pt called saying that after taking Avelox she got an extreme headache and nausea. Please advise. Shereally doesn't want to take anymore. Telephone Encounter - Sherri Chavira - 11/03/2006 10:22 AM CDT Pharmacist calling to double check use of Avelox for UTI because it is not listed as an indication. Levaquin is. Please advise. documented in this encounter Plan of Treatment Not on filedocumented as of this encounter Visit Diagnoses Diagnosis Dysuria - Primary documented in this encounter Care Teams Account Strategist Relationship Specialty Start Date End Date Bj Pelletier MD PCP - General 10/06/02 08/22/16 XXX RESIGNED XXX [address] [facility] 200 [place] [address] documented as of this encounter
--- OUTSIDE RECORDS SUMMARY | 2021-12-03 11:51 | XMS_ITS | Encounter Summary ---
:1955 Author Organization [place] Address [facility] 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 documented in this encounter Results DIGITIZATION, MAMMOGRAPHIC DEVANTE (03/16/2007 3:46 PM PIPING MANAGER) Anatomical Region Laterality Modality Other Specimen (Source) Anatomical Collection Method Collection Time Re ceived Time Location / / Volume Laterality 03/16/2007 3:46 PM PIPING MANAGER Impressions 03/16/2007 4:05 PM PIPING MANAGER SCREENING MAMMOGRAM, BILATERAL, DIGITAL w/ CAD BREAST SYMPTOMS: None reported. COMPARISON EXAMS: 12/20/2003, 03/30/2006. BREAST PARENCHYMAL PATTERN: Heterogeneou sly dense. COMMENTS: No findings of suspicion for m alignancy. Nodules that were seen on last year's mammogram do not marisol ear to be present at this time. IMPRESSION: BI-RADS 1, NEGATIVE. Courtney Jama MD GENERAL IMAGING documented in this encounter Visit Diagnoses Not on filedocumented in this encounter Care Teams Pull Through Hooker Relationship Specialty Start Date End Date Bj Pelletier MD PCP - General 10/06/02 08/22/16 XXX RESIGNED XXX [address] [facility] 200 [place] [address] documented as of this encounter
--- OUTSIDE RECORDS SUMMARY | 2021-12-03 11:51 | XMS_ITS | Encounter Summary ---
:1955 Author Organization [place] Address [address] [place] [address] Care Team Providers Name Role Phone Bj Pelletier MD Primary Care Provider Encounter Details Date Type Department Care Team Description 08/03/2007 Orders Only [facility] Bj Roque MD DIAGNOSIS NOT YET Clinic [place] XXX RESIGNED XXX DEFINED (Primary Dx) [address] [place] [address] [place] [address] [place] [phone] (Wo rk) Social History Tobacco Use Types Packs/Day Years Used Date Smoking Tobacco: Never Alcohol Use Standard Drinks/Week Comments Yes 0 (1 standard drink = 0.6 oz pure alcoho l) 2-3 times a week Sex Assigned at Date Recorded Female 01/06/2021 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 Bj Pelletier MD PROCEDURES documented in this encounter Visit Diagnoses Diagnosis DIAGNOSIS NOT YET DEFINED - Primary documented in this encounter Care Teams Floor Representative Relationship Specialty Start Date End Date Bj Pelletier MD PCP - General 10/06/02 08/22/16 XXX RESIGNED XXX [address] [facility] 200 [place] [phone] documented as of this encounter
--- OUTSIDE RECORDS SUMMARY | 2021-12-03 11:51 | XMS_ITS | Encounter Summary ---
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 HCL URINALYSIS WITH Routine 11/02/2006 4:09 PM Urinary Sys Sym ptom Results for this MICROSCOPIC CDT Nec procedure are i n the results section. documented in this encounter Results CULTURE, URINE (MISYS) (11/02/2006 4:25 PM CDT) [facility] Method Time Signature Specimen Midstream [place] Description Urine [facility] Culture Micro No growth [facility] Report status FINAL [place] [id number] [facility] Specimen Anatomical Collection Method Collection Time Receive d Time (Source) Location / / Volume Laterality 11/02/2006 4:25 PM 200 7 4:30 CDT PM CDT Bj Pelletier MD LABORATORY Performing Organization Address City/State/ZIP Code Phon e Number M [facility] [address] [place] [address] [facility] (ABNORMAL) UA WITH MICRO (11/02/2006 4:09 PM CDT) [facility] Method Time Signature Color Urine Yellow [facility] Appearance Urine Slightly [place] Cloudy [facility] Glucose Urine Negative NEG mg/dL [facility] Bilirubin Urine Negative NEG [facility] Ketones Urine Negative NEG mg/dL [facility] Specific [place] <=1.005 1.003 - [place] Urine 1.035 [facility] pH Urine 7.0 5.0 - 7.0 [place] pH [facility] Protein Albumin 30 (A) NEG mg/dL [facility] Urobilinogen 0.2 0.2 - 1.0 [place] Urine EU/dL [facility] Nitrite Urine Negative NEG [facility] Blood Urine Large (A) NEG [facility] Leukocyte Large (A) NEG [place] Esterase Urine [facility] Source Midstream [place] Urine [facility] WBC Urine 10-25 (A) 0 - 2 [place] /HPF [facility] RBC Urine 10-25 (A) 0 - 2 [place] /[facility] Squamous EPI Few FEW /LPF [facility] Specimen Anatomical Collection Method Collection Time Receive d Time (Source) Location / / Volume Laterality 11/02/2006 4:09 PM 7 4:14 CDT PM CDT Bj Pelletier MD LABORATORY Performing Organization Address City/State/ZIP Code Phon e Number [facility] [address] [place], [place] [address] [address] [facility] documented in this encounter Visit Diagnoses Diagnosis Urinary sys symptom NEC - Primary Other symptoms involving urinary system documented in this encounter Care Teams Third Shift Lieutenant Relationship Specialty Start Date End Date Bj Pelletier MD PCP - General 10/06/02 08/22/16 XXX RESIGNED XXX [address] [place] [phone] documented as of this encounter
--- OUTSIDE RECORDS SUMMARY | 2021-12-03 11:51 | XMS_ITS | Encounter Summary ---
:1955 Author Organization [place] Address [address] [place] [address] Care Team Providers Name Role Phone Bj Pelletier MD Primary Care Provider Encounter Details Date Type Department Care Team Description 08/27/2006 Medical Correspondence [facility] Bj Pelletier , URGENT CARE VISIT Clinic [place]v [place]OGER [address] [place] XXX RESIGNED XXX [place] [address] [address] [place], [place] [phone] Social History Tobacco Use Types Packs/Day Years Used Date Smoking Tobacco: Never Alcohol Use Standard Drinks/Week Comments Yes 0 (1 standard drink = 0.6 oz pure alcoho l) 2-3 times a week Sex Assigned at Date Recorded Female 01/06/2021 11:10 AM TRAFFIC AGENT documented as of this encounter Plan of Treatment Not on filedocumented as of this encounter Visit Diagnoses Not on filedocumented in this encounter Care Teams Clinical Statistical Programmer Relationship Specialty Start Date End Date Bj Pelletier MD PCP - General 10/06/02 08/22/16 XXX RESIGNED XXX [address] [facility] 200 [place] [address] documented as of this encounter
--- OUTSIDE RECORDS SUMMARY | 2021-12-03 11:51 | XMS_ITS | Encounter Summary ---
:1955 Author Organization [place] Address [facility] [place] [address] Care Team Providers Name Role Phone Bj Pelletier MD Primary Care Provider Encounter Details Date Type Department Care Team Description 10/14/2006 Results Only [facility] David Banuelos MD [facility] Results XXX R ETIRED XXX [address] [facility] [address] [place] [address] (Wo rk) Social History Tobacco Use Types Packs/Day Years Used Date Smoking Tobacco: Never Alcohol Use Standard Drinks/Week Comments Yes 0 (1 standard drink = 0.6 oz pure alcoho l) 2-3 times a week Sex Assigned at Date Recorded Female 01/06/2021 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 documented in this encounter Results X-RAY IV PYELOGRAM+TOMOGRAPHY (10/14/2006 12:58 PM CDT) Anatomical Region Laterality Modality Other Specimen (Source) Anatomical Collection Method Collection Time Re ceived Time Location / / Volume Laterality 10/14/2006 12:58 PM CDT Impressions 10/14/2006 1:34 PM CDT HISTORY: ?Right flank pain. Post hys terectomy. TECHNIQUE: ?IVP with tomograms. 100 cc of Optiray-320 was used. FINDINGS: ?Assembler Dc Field Ring film is unremarkabl e except for some pelvic phleboliths. Following infusion of contr ast, nephrograms were prompt and showed normal size kidneys. There wa s marked delay in appearance of the right renal collecting system. Th e left collecting system was normal in caliber and appearance. Despit e filming up to 15 minutes, only a small amount of contrast collecte d in the right collecting system. The bladder outline is smooth an d postvoid film showed no significant residual. 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 There is some function of the right lisy ecting system. Case discussed with Dr. Banuelos. David Banuelos MD SPECIAL IMAGING STUDIES documented in this encounter Visit Diagnoses Not on filedocumented in this encounter Care Teams Conservation Officer Relationship Specialty Start Date End Date Bj Pelletier MD PCP - General 10/06/02 08/22/16 XXX RESIGNED XXX [address] [facility] [address] [place] [address] documented as of this encounter
--- OUTSIDE RECORDS SUMMARY | 2021-12-03 11:51 | XMS_ITS | Encounter Summary ---
:1955 Author Organization [place] Address [address] [place] [address] Care Team Providers Name Role Phone Bj Pelletier MD Primary Care Provider Encounter Details Date Type Department Care Team Description 11/04/2006 Telephone [facility] Bj Pelletier MD [place] XXX RESIGNED XXX [address] [facility] [address] [place] [address] [place] [address] (Wo rk) Social History Tobacco Use Types Packs/Day Years Used Date Smoking Tobacco: Never Alcohol Use Standard Drinks/Week Comments Yes 0 (1 standard drink = 0.6 oz pure alcoho l) 2-3 times a week Sex Assigned at Date Recorded Female 01/06/2021 11:10 AM MANAGER PERSONAL documented as of this encounter Miscellaneous Notes Telephone Encounter - Bj Pelletier - 11/04/2006 2:03 PM CDT CALL RETURNED-DOING BETTER. Telephone Encounter - Sherri Chavira - 11/04/2006 11:44 AM CDT Pt says that she is still having some kidney pain. The debris and blood in urine has cleared up, shannon doesn't want to wait too long again. Is she ok to just keep taking Cipro unless things get worse? documented in this encounter Plan of Treatment Not on filedocumented as of this encounter Visit Diagnoses Not on filedocumented in this encounter Care Teams Entry Level Programmer Relationship Specialty Start Date End Date Bj Pelletier MD PCP - General 10/06/02 08/22/16 XXX RESIGNED XXX [address] [facility] [address] [place] [phone] documented as of this encounter
--- OUTSIDE RECORDS SUMMARY | 2021-12-03 11:51 | XMS_ITS | Encounter Summary ---
:1955 Author Organization [place] Address [address] [place] [address] Care Team Providers Name Role Phone Bj Pelletier MD Primary Care Provider Reason for Visit Reason Comments Back Pain continues to have left lower back, hip and leg pain. 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 Her injury was to the back due to a lifting incident/ She developed left leg pain. She was treated with PT and in June had an MRI which was unremarlable. She then was found to have a hernia on the left, first thouht to be inguinal but turned out to be femoral. The hernia was repaired with good result. 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 She is here today in general follow-up, because of continuing intermittent left leg pain as well as LBP. The leg pain begins in the upper outer left buttock and radiates down the postero-lateral thigh to the knee or a little beyond. There are no paresthesias or weaknesses. She has started seeing a Chiropractor and asks about the use of glucosamine and chondroitin and fish oil. OBJECTIVE: Level pelvis, normal lordosis. ROM full in extention and lateral bending, 80 degrees in flexion withmild end range discomfort. Walks well on heels and toes. DTRs at knee and ankle active and symetric.SLR neg. There is mild tenderness in the area of the femoral trocanter. Khoi's test is negative. ASSESSMENT: Mechanical LBP with referred left leg pain. PLAN: Return to exercise program from PT. Analgesics prn. Follow-up for changes or exacerbation. documented in this encounter Nursing Notes 08/17/2006 10:30 AM CDT >> VIRA PEÑA 08/17/2006 10:50 am Megan Carmichael presents for Patient presents with: Back Pain - continues to have left lower back, hip and leg pain. Initial BP 94/60 Ht 5' 4 (1.63m) Wt 136 lbs (61.7kg) Body mass index is 23.33 kg/(m^2).. BP completed using cuff size: regular BrynenJavier documented in this encounter Plan of Treatment Not on filedocumented as of this encounter Visit Diagnoses Diagnosis Lumbago Sciatica documented in this encounter Care Teams Hardwood Sawyer Relationship Specialty Start Date End Date Bj Pelletier MD PCP - General 10/06/02 08/22/16 XXX RESIGNED XXX [address] [facility] [address] [place] [address] documented as of this encounter
--- OUTSIDE RECORDS SUMMARY | 2021-12-03 11:52 | XMS_ITS | Encounter Summary ---
:1955 Author Organization [place] Address [address] [place] [address] Care Team Providers Name Role Phone Bj Pelletier MD Primary Care Provider Encounter Details Date Type Department Care Team Description 09/11/2005 Historic Results INTERFACED REPORT Janel Pastrana MD [address] [id number] (Wo rk) Social History Tobacco Use Types Packs/Day Years Used Date Smoking Tobacco: Never Alcohol Use Standard Drinks/Week Comments Yes 0 (1 standard drink = 0.6 oz pure alcoho l) 2-3 times a week Sex Assigned at Date Recorded Female 01/06/2021 11:10 AM MANAGER STRATEGIC documented as of this encounter Plan of Treatment Not on filedocumented as of this encounter Procedures Procedure Name Priority Date/Time Associated Comments Diagnosis CYTOPATHOLOGY Routine 09/11/2005 12:00 Results fo r this AM CDT procedure are i n the results section. MOLECULAR DIAGNOSTICS Routine 09/11/2005 12:00 Re sults for this AM CDT procedure are i n the results section. documented in this encounter Results Cytopathology (09/11/2005 12:00 AM CDT) Component Value Ref Test Analysis Performed At [facility] Method Time Signature Copath Report CASE: [id number] ^ COPATH PAP ?NIL Patient Name: MEGAN SMITH MR#: [id number] Specimen #: [id number] Collected: 09/11/2005 Received: 09/14/2005 Reported: 09/15/2005 09:15 Ordering Phy(s): TERRENCE MONREAL Additional Phy(s): RIK PASTRANA SPECIMEN/STAIN PROCESS: Pap thin layer prep screening (SurePath) ? Pap-Cyto x 1, HPV ordered x 1 SOURCE: Cervical, endocervical ---- Pap thin layer prep screening ([facility]Path) SPECIMEN ADEQUACY: Satisfactory for evaluation. -Transformation zone component present. CYTOLOGIC INTERPRETATION: Negative for Intraepithelial Lesion or Malignancy Electronically signed out by: AMANDA Manzano (ASCP) Processed and screened at [facility] CLINICAL HISTORY: TESTING LAB LOCATION: [facility], [address] ??[phone] COLLECTION SITE: Client: ??[facility] Location: [facility] (B) Specimen (Source) Anatomical Collection Method Collection Time Re ceived Time Location / / Volume Laterality 09/11/2005 09/15/2005 9:16 AM CDT Terrence Monreal MD LAB - COPATH SPECIAL DIAG OR DERABLES Performing Organization Address City/State/ZIP Code Phon e Number [facility] (09/11/2005 12:00 AM CDT) Component Value Ref Test Analysis Performed At [facility] Method Time Signature Copath Report CASE: [id number] ^ COPATH Patient Name: MEGAN SMITH MR#: [id number] Specimen #: [id number] Collected: 09/11/2005 00:00 Received: 09/14/2005 12:12 Reported: 09/15/2005 15:28 Ordering Phy(s): SOUMATHY C PROSPER TEST(S) REQUESTED: Human Papillomavirus Screen Analysis SPECIMEN DESCRIPTION: Cervical Cells METHODOLOGY: ??Total cellular DNA was extracted from the abo ve specimen and up to 1 ug subjected to DNA amplification with a series of oligonucleotide primers directed to the L1 region of the hum an papillomavirus genome. ??The resulting DNA fragments were th parker digested with a series of restriction endonuclease enzymes before ivy ng on 6% polyacrylamide gels, stained with ethidium bromide and photographed. ??The resulting pattern of bands corresponding to the digested DNA products were interpreted according to the marizol esponding HPV DNA controls. ??Amplification of a segment of the beta g lobin gene serves as an internal control of DNA amplification. RESULTS: HPV DNA (L1 region) ?NEGATIVE INTERPRETATION: This patient' s sample is negative for HPV DNA. COMMENTS: These results do not rule out the presence of an occult HPV infection which isnot detected due to either sampling error, or sample procurement. Electronically Signed Out By: VICENTE Sheet Tailer This test was developed and its performance determined by [facility] Molecular Diagnostic Laboratory. ??It has not been cleared o r approved by the U.S. Food and Drug Administration. ??The FDA has determi vinay that such clearance or approval is not necessary. ??Pursuant to the re quirements of CLIA' 88, this laboratory has established and verified the t est' s accuracy andprecision. ??This test is used for clinical purp oses. TESTING LAB LOCATION: [address] [address] COLLECTION SITE: Client: ??[facility] Location: ??[facility] (B) Specimen (Source) Anatomical Collection Method Collection Time Re ceived Time Location / / Volume Laterality 09/11/2005 09/15/2005 3:28 PM CDT Rik Pastrana MD LAB - [facility] SPECIAL DIAG OR DERABLES Performing Organization Address City/State/ZIP Code Phon e Number [place] documented in this encounter Visit Diagnoses Not on filedocumented in this encounter Care Teams Kiln Pusher Relationship Specialty Start Date End Date Bj Pelletier MD PCP - General 10/06/02 08/22/16 XXX RESIGNED XXX [address] [facility] [address] [place] [address] documented as of this encounter
--- OUTSIDE RECORDS SUMMARY | 2021-12-03 11:52 | XMS_ITS | Encounter Summary ---
:1955 Author Organization [place] Address [address] [place] [address] Care Team Providers Name Role Phone Bj Pelletier MD Primary Care Provider Reason for Visit RICHARD Physical Therapy (Routine) - Closed Specialty Diagnoses / Procedures Referred By Contact Refer red To Contact Bj Pelletier MD [facility] XXX RESIGNED XXX MED [address] [place] [address] Referral ID Status Reason Start Date Expiration Date Visits V isits Requested Authorized [id number] Closed 04/06/2005 07/04/2005 12 12 ABIMAEL Encounter Details Date Type Department Care Team Description 05/22/2005 Therapy Visit [place] for Mike Giang, Deep ; Athletic Medicine - PT iamSCIATICA; [place] Physical RICHARD Josee Rodriguez ON INDUSTR PREMISES; Therapy [address] iamACCID FROM OVEREXERTION 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 documented in this encounter Plan of Treatment Not on filedocumented as of this encounter Procedures Procedure Name Priority Date/Time Associated Diagnosis Comme nts R[facility] MANUAL THER Routine 05/22/2005 10:36 AM iamLUMBAGO TECH,1+REGIONS,EA 15 CDT iamSCIATICA MIN iamACCIDENT ON INDUSTR PREMISES iamACCID FROM OVEREXERTION [facility] THERAPEUTIC Routine 05/22/2005 10:36 AM iamLUMBAGO ACTIVITIES CDT iamSCIATICA iamACCIDENT ON INDUSTR PREMISES iamACCID FROM OVEREXERTION RUST THERAPEUTIC Routine 05/22/2005 10:36 AM iamLUMBAGO EXERCISES CDT iamSCIATICA iamACCIDENT ON INDUSTR PREMISES iamACCID FROM OVEREXERTION documented in this encounter Visit Diagnoses Diagnosis iamLUMBAGO Lumbago iamSCIATICA Sciatica iamACCIDENT ON INDUSTR PREMISES Place of occurrence, industrial places a nd premises iamACCID FROM OVEREXERTION Overexertion and strenuous and repetitiv e movements or loads documented in this encounter Care Teams Carpenter Prototype Relationship Specialty Start Date End Date Bj Pelletier MD PCP - General 10/06/02 08/22/16 XXX RESIGNED XXX [address] [place] [phone] documented as of this encounter
--- OUTSIDE RECORDS SUMMARY | 2021-12-03 11:52 | XMS_ITS | Encounter Summary ---
:1955 Author Organization [place] Address [address] [place] [address] Care Team Providers Name Role Phone Bj Pelletier MD Primary Care Provider Reason for Visit RICHARD Physical Therapy (Routine) - Closed Specialty Diagnoses / Procedures Referred By Contact Refer red To Contact Bj Pelletier MD [facility] XXX RESIGNED XXX MED [address] [place] [address] Referral ID Status Reason Start Date Expiration Date Visits V isits Requested Authorized [id number] Closed 04/06/2005 07/04/2005 12 12 ABIMAEL Encounter Details Date Type Department Care Team Description 05/05/2005 Therapy Visit [place] for Mike Giang, Deep ; Athletic Medicine - PT iamSCIATICA; [place] Physical RICHARD Josee Rodriguez ON INDUSTR PREMISES; Therapy [address] iamACCID FROM OVEREXERTION [address] [place] [phone] Social History Tobacco Use Types Packs/Day Years Used Date Smoking Tobacco: Never Alcohol Use Standard Drinks/Week Comments Yes 0 (1 standard drink = 0.6 oz pure alcoho l) 2-3 times a week Sex Assigned at Date Recorded Female 01/06/2021 11:10 AM LOAN ADVISER documented as of this encounter Progress Notes Mike Giang - 05/05/2005 5:54 PM CST Please refer to the daily flowsheet for treatment today. ADVISER documented in this encounter Plan of Treatment Not on filedocumented as of this encounter Procedures Procedure Name Priority Date/Time Associated Diagnosis Comme nts [facility] MANUAL THER Routine 05/05/2005 5:54 PM iamLUMBAGO TECH,1+REGIONS,EA 15 LOAN ADVISER iamSCIATICA MIN iamACCIDENT ON INDUSTR PREMISES iamACCID FROM OVEREXERTION [facility] THERAPEUTIC Routine 05/05/2005 5:54 PM iamLUMBAGO EXERCISES LOAN ADVISER iamSCIATICA iamACCIDENT ON INDUSTR PREMISES iamACCID FROM OVEREXERTION documented in this encounter Visit Diagnoses Diagnosis iamLUMBAGO Lumbago iamSCIATICA Sciatica iamACCIDENT ON INDUSTR PREMISES Place of occurrence, industrial places a nd premises iamACCID FROM OVEREXERTION Overexertion and strenuous and repetitiv e movements or loads documented in this encounter Care Teams Corrugated Box Machine Operator Relationship Specialty Start Date End Date Bj Pelletier MD PCP - General 10/06/02 08/22/16 XXX RESIGNED XXX [address] [facility] [address] [place] [address] documented as of this encounter
--- OUTSIDE RECORDS SUMMARY | 2021-12-03 11:52 | XMS_ITS | Encounter Summary ---
:1955 Author Organization [place] Address [facility] [place] [address] Care Team Providers Name Role Phone Bj Pelletier MD Primary Care Provider Encounter Details Date Type Department Care Team Description 04/06/2006 [facility] O[facility]IS TS [address] [facility] [address] [place] [address] (Wo rk) Social History Tobacco Use Types Packs/Day Years Used Date Smoking Tobacco: Never Alcohol Use Standard Drinks/Week Comments Yes 0 (1 standard drink = 0.6 oz pure alcoho l) 2-3 times a week Sex Assigned at Date Recorded Female 01/06/2021 11:10 AM DIETARY ASSISTANT documented as of this encounter Plan of Treatment Not on filedocumented as of this encounter Procedures Procedure Name Priority Date/Time Associated Diagnosis Comme nts C LT SONO BREAST Routine 04/06/2006 4:34 PM Resul ts for this DIETARY ASSISTANT procedure are i n the results section. C LT MAMMOGRAM, ONE Routine 04/06/2006 3:11 PM Re sults for this BREAST DIETARY ASSISTANT procedure are i n the results section. documented in this encounter Results LT SONO BREAST (04/06/2006 4:34 PM DIETARY ASSISTANT) Anatomical Region Laterality Modality Other Specimen (Source) Anatomical Collection Method Collection Time Re ceived Time Location / / Volume Laterality 04/06/2006 4:34 PM DIETARY ASSISTANT Impressions 04/06/2006 5:00 PM DIETARY ASSISTANT Left diagnostic mammogram and left breas t ultrasound 04/06/2006 Reason for exam: Recalled from screening mammography for further evaluation of 2 circumscribed nodules in the left medial breast. The patient has no current breast complaints . Findings: ?Additional mammographic v iews were obtained and demonstrate persistence of 2 circumscrib ed low density nodules in the left medial breast. Ultrasound of the le ft medial and upper breast was performed. I personally scanned the beatriz ent. There are multiple cysts in the left medial breast. At the 9:00 p osition, 4 cm from the nipple, there is a 6 mm simple cyst. At the 10:0 0 position, 8 cm from the nipple, there is 6 mm simple cyst. Multi ple smaller cysts are also seen in the left upper inner quadrant. T hese cysts should account for the nodules seen on the mammogram. No so lid mass or worrisome sonographic finding is identified. Impression: ?ACR BI-RADS category 2, benign findings. 1. The nodules seen on the mammogram cor respond to simple cysts. 2. Annual mammography is recommended. Courtney Jama MD SPECIAL IMAGING STUDIES LT MAMMOGRAM, ONE BREAST (04/06/2006 3:11 PM DIETARY ASSISTANT) Anatomical Region Laterality Modality Other Specimen (Source) Anatomical Collection Method Collection Time Re ceived Time Location / / Volume Laterality 04/06/2006 3:11 PM DIETARY ASSISTANT Impressions 04/06/2006 5:00 PM DIETARY ASSISTANT Left diagnostic mammogram and left breas t ultrasound 04/06/2006 Reason for exam: Recalled from screening mammography for further evaluation of 2 circumscribed nodules in the left medial breast. The patient has no current breast complaints . Findings: ?Additional mammographic v iews were obtained and demonstrate persistence of 2 circumscrib ed low density nodules in the left medial breast. Ultrasound of the le ft medial and upper breast was performed. I personally scanned the beatriz ent. There are multiple cysts in the left medial breast. At the 9:00 p osition, 4 cm from the nipple, there is a 6 mm simple cyst. At the 10:0 0 position, 8 cm from the nipple, there is 6 mm simple cyst. Multi ple smaller cysts are also seen in the left upper inner quadrant. T hese cysts should account for the nodules seen on the mammogram. No so lid mass or worrisome sonographic finding is identified. Impression: ?ACR BI-RADS category 2, benign findings. 1. The nodules seen on the mammogram cor respond to simple cysts. 2. Annual mammography is recommended. Courtney Jama MD SPECIAL IMAGING STUDIES documented in this encounter Visit Diagnoses Not on filedocumented in this encounter Care Teams Driving School Instructor Relationship Specialty Start Date End Date Bj Pelletier MD PCP - General 10/06/02 08/22/16 XXX RESIGNED XXX [address] [facility] [address] [place] [address] documented as of this encounter
--- OUTSIDE RECORDS SUMMARY | 2021-12-03 11:52 | XMS_ITS | Encounter Summary ---
:1955 Author Organization [place] Address [address] [place] [address] Care Team Providers Name Role Phone Bj Pelletier MD Primary Care Provider Reason for Referral Specialty Diagnoses / Procedures Referred By Contact Refer red To Contact Bj Pelletier MD XXX RESIGNED XXX [address] [place] [phone] Referral ID Status Reason Start Date Expiration Date Visits Requ ested Visits Authorized RT AGENT Encounter Details Date Type Department Care Team Description 10/15/2005 Orders Only [facility] Bj Roque MD DIAGNOSIS NOT YET Clinic [place] XXX RESIGNED XXX DEFINED (Primary Dx) [address] [place] [address] [phone] (Wo rk) Social History Tobacco Use Types Packs/Day Years Used Date Smoking Tobacco: Never Alcohol Use Standard Drinks/Week Comments Yes 0 (1 standard drink = 0.6 oz pure alcoho l) 2-3 times a week Sex Assigned at Date Recorded Female 01/06/2021 11:10 AM EXPORT AGENT documented as of this encounter Plan of Treatment Not on filedocumented as of this encounter Procedures Procedure Name Priority Date/Time Associated Diagnosis Comme nts ZZ CONSULT SURGERY Routine 10/15/2005 DIAGNOSIS NOT YET D EFINED documented in this encounter Results CONSULT SURGERY (10/15/2005) Specimen (Source) Anatomical Location Collection Method / Collectio n Time Received Time / Laterality Volume 10/15/2005 Narrative This result has an attachment that is no t available. Bj Pelletier MD REFERRAL documented in this encounter Visit Diagnoses Diagnosis DIAGNOSIS NOT YET DEFINED - Primary documented in this encounter Care Teams Property Officer Relationship Specialty Start Date End Date Bj Pelletier MD PCP - General 10/06/02 08/22/16 XXX RESIGNED XXX [address] [facility] [address] [place] [address] documented as of this encounter
--- OUTSIDE RECORDS SUMMARY | 2021-12-03 11:52 | XMS_ITS | Encounter Summary ---
:1955 Author Organization [place] Address [address] [place] [address] Care Team Providers Name Role Phone Bj Pelletier MD Primary Care Provider Reason for Visit Reason Comments Sinus Problem Asthma Encounter Details Date Type Department Care Team Description 04/25/2004 Office Visit [facility] Bj Pelletier MD ASTHMA - MILD INTERMITTENT (Primary Dx); Clinic [place] XXX RESIGNED XXX ACUTE BRONCHITIS; [address] MED EXAM NEC- ADMIN [facility] [address] [place] [phone] Social History Tobacco Use Types Packs/Day Years Used Date Smoking Tobacco: Never Alcohol Use Standard Drinks/Week Comments Yes 0 (1 standard drink = 0.6 oz pure alcoho l) 2-3 times a week Sex Assigned at Date Recorded Female 01/06/2021 11:10 AM RUBBER STAMP DIE INSPECTOR documented as of this encounter Last Filed Vital Signs Vital Sign Reading Time Taken Comments Blood Pressure 120/80 04/25/2004 8:30 AM RUBBER STAMP DIE INSPECTOR Pulse 88 04/25/2004 8:30 AM RUBBER STAMP DIE INSPECTOR Temperature - - Respiratory Rate - - Oxygen Saturation - - Inhaled Oxygen Concentration - - Weight 63.5 kg (140 lb) 04/25/2004 8:30 AM RUBBER STAMP DIE INSPECTOR Height - - Body Mass Index 24.03 12/21/2001 2:45 PM RUBBER STAMP DIE INSPECTOR documented in this encounter Progress Notes PrabhuBj - 04/25/2004 9:12 AM CST HPI: Megan العلي is a 48 year old female who presents fo 1) Cough 2) Asthma 3) Forms for Foster care Patient Active Problem List: ESOPHAGEAL STRICTURE[530.3] URETHRAL STRICTURE NOS[598.9] Current outpatient prescriptions: PREVACID 15 MG OR CPDR 1 CAPSULE DAILY BEFORE EATING SENOKOT S 8.6-50 MG OR TABS Previous Medical History: EXTRINSIC ASTHMA UNSPECIFIED Comment: Cat allergy, seasonal allergies with asthma ESOPHAGEAL STRICTURE Comment: Dx , [place] [facility] URETHRAL STRICTURE NOS Review of patient's past surgical history indicates: NONSPECIFIC PROCEDURE Comment: x3 1979,1984,1994 Family History: Heart Father Comment: heart attacks with bypass Cancer Mother Comment: ovarian cancer Cancer Maternal Grandmother Comment: breast cancer Cancer Paternal Aunt Comment: cervicle cancer Cancer Paternal Aunt Comment: uterin cancer Diabetes Paternal Aunt Hypertension Father Lipids Father Hypertension Brother Social History Marital Status: Spouse Name: N/A Years of Education: N/A Number of Children: N/A Occupational History None on file Social History Main Topics Tobacco Use: Never Alcohol Use: Yes Comment: 2-3 times a week Drug Use: No Sexually Active: Yes Partners: Male Other Topics Concern Social History Narrative None on file ROS: C: NEGATIVE for fever, chills, change in weight I: NEGATIVE for worrisome rashes, moles or lesions E/M: NEGATIVE for ear, mouth and throat problems R: cough and Asthma problems CV: NEGATIVE for chest pain, palpitations or peripheral edema GI: NEGATIVE for nausea, abdominal pain, heartburn, or change in bowel habits : NEGATIVE for frequency, dysuria, or hematuria EXAM: BP 120/80 Pulse 88 Wt 140 lbs (63.5kg) GENERAL APPEARANCE: healthy, alert and no distress EYES: EOMI, fundi benign- PERRL HENT: ear canals and TM's normal and nose and mouth without ulcers or lesions NECK: no adenopathy, no asymmetry, masses, or scars and thyroid normal to palpation RESP: lungs positive for diffuse bilateral Rhonchi with some Inspiratory wheezes CV: regular rates and rhythm, normal S1 S2, no S3 or S4 and no murmur, click or rub - ABDOMEN: soft, nontender, no HSM or masses and bowel sounds normal Assessment: Asthma Bronchitis Foster care Forms(attestation) Completed Plan:See EPIC Orders ER STAMP DIE INSPECTOR documented in this encounter Nursing Notes 04/25/2004 8:30 AM CST >> EDER HYMAN 04/25/2004 8:54 am Megan العلي presents for sinus infection and also has been having some problems with asthma.. Initial BP 120/80 Pulse 88 Wt 140 lbs (63.5kg) Estimated Body Mass Index is 24.02 kg/(m^2) as calculated from: Height of 5' 4 (1.626m) as of 12/21/01 Weight of 140 lbs (63.504 kg) as of this encounter . BP completed using cuff size: regular. Farzana Hyman LPN documented in this encounter Plan of Treatment Not on filedocumented as of this encounter Visit Diagnoses Diagnosis Mild intermittent asthma - Primary Unspecified asthma Acute bronchitis Other general medical examination for ad ministrative purposes documented in this encounter Care Teams V Block Saw Operator Relationship Specialty Start Date End Date Bj Pelletier MD PCP - General 10/06/02 08/22/16 XXX RESIGNED XXX [address] [facility] [address] [place] [phone] documented as of this encounter
--- OUTSIDE RECORDS SUMMARY | 2021-12-03 11:52 | XMS_ITS | Encounter Summary ---
:1955 Author Organization [place] Address [address] [place] [address] Care Team Providers Name Role Phone Bj Pelletier MD Primary Care Provider Reason for Visit RICHARD Physical Therapy (Routine) - Closed Specialty Diagnoses / Procedures Referred By Contact Refer red To Contact Bj Pelletier MD [facility] XXX RESIGNED XXX MED [address] [place] [address] Referral ID Status Reason Start Date Expiration Date Visits V isits Requested Authorized [id number] Closed 04/06/2005 07/04/2005 12 12 ABIMAEL Encounter Details Date Type Department Care Team Description 06/11/2005 Therapy Visit [place] for Mike Giang, Deep ; Athletic Medicine - PT iamSCIATICA; [place] Physical RICHARD Josee Rodriguez ON INDUSTR PREMISES; Therapy [address] iamACCID FROM OVEREXERTION [address] [place] [phone] Social History Tobacco Use Types Packs/Day Years Used Date Smoking Tobacco: Never Alcohol Use Standard Drinks/Week Comments Yes 0 (1 standard drink = 0.6 oz pure alcoho l) 2-3 times a week Sex Assigned at Date Recorded Female 01/06/2021 11:10 AM MERCHANDISER documented as of this encounter Progress Notes Mike Giang - 07/14/2005 8:09 AM CDT Please refer to the discharge evaluation. Mike Giang - 06/11/2005 2:12 PM CDT Please refer to the progress note. Please refer to the daily flowsheet for treatment today. documented in this encounter Plan of Treatment Not on filedocumented as of this encounter Procedures Procedure Name Priority Date/Time Associated Diagnosis Comme nts [facility] MANUAL THER Routine 06/11/2005 2:14 PM iamLUMBAGO TECH,1+REGIONS,EA 15 CDT iamSCIATICA MIN iamACCIDENT ON INDUSTR PREMISES iamACCID FROM OVEREXERTION [facility] THERAPEUTIC Routine 06/11/2005 2:14 PM iamLUMBAGO EXERCISES CDT iamSCIATICA iamACCIDENT ON INDUSTR PREMISES iamACCID FROM OVEREXERTION documented in this encounter Visit Diagnoses Diagnosis iamLUMBAGO Lumbago iamSCIATICA Sciatica iamACCIDENT ON INDUSTR PREMISES Place of occurrence, industrial places a nd premises iamACCID FROM OVEREXERTION Overexertion and strenuous and repetitiv e movements or loads documented in this encounter Care Teams Photo Mask Processor Relationship Specialty Start Date End Date Bj Pelletier MD PCP - General 10/06/02 08/22/16 XXX RESIGNED XXX [address] [facility] [address] [place] [address] documented as of this encounter
--- OUTSIDE RECORDS SUMMARY | 2021-12-03 11:52 | XMS_ITS | Encounter Summary ---
:1955 Author Organization [place] Address [address] [place] [address] Care Team Providers Name Role Phone Bj Pelletier MD Primary Care Provider Reason for Visit Reason Comments Counseling Encounter Details Date Type Department Care Team Description 04/06/2005 Office Visit [facility] Bj Pelletier MD ERRONE[facility] [place] XXX RESIGNED XXX ENCOUNTER--DISREGARD [address] (Primary Dx) [address] [phone] (Wo rk) Social History Tobacco Use Types Packs/Day Years Used Date Smoking Tobacco: Never Alcohol Use Standard Drinks/Week Comments Yes 0 (1 standard drink = 0.6 oz pure alcoho l) 2-3 times a week Sex Assigned at Date Recorded Female 01/06/2021 11:10 AM PRODUCE LABORER documented as of this encounter Progress Notes Bj Pelletier - 04/19/2005 11:41 AM CST err UCE LABORER documented in this encounter Plan of Treatment Not on filedocumented as of this encounter Visit Diagnoses Diagnosis ERRONEOUS ENCOUNTER--DISREGARD - Primary documented in this encounter Care Teams Wireless Retail Manager Relationship Specialty Start Date End Date Bj Pelletier MD PCP - General 10/06/02 08/22/16 XXX RESIGNED XXX [address] [facility] [address] [place] [address] documented as of this encounter
--- OUTSIDE RECORDS SUMMARY | 2021-12-03 11:52 | XMS_ITS | Encounter Summary ---
:1955 Author Organization [place] Address [address] [place] [address] Care Team Providers Name Role Phone Bj Pelletier MD Primary Care Provider Reason for Referral Specialty Diagnoses / Procedures Referred By Contact Refer red To Contact Bj Pelletier MD XXX RESIGNED XXX [address] [place] [phone] Referral ID Status Reason Start Date Expiration Date Visits Requ ested Visits Authorized HYSICS PROFESSOR Encounter Details Date Type Department Care Team Description [facility]/26[facility]2004 [facility] [place] XXX RESIGNED XXX (Primary Dx) [address] [place] [address] [phone] (Wo rk) Social History Tobacco Use Types Packs/Day Years Used Date Smoking Tobacco: Never Assessed Sex Assigned at Date Recorded Female 01/06/2021 11:10 AM GEOPHYSICS PROFESSOR documented as of this encounter Plan of Treatment Not on filedocumented as of this encounter Procedures Procedure Name Priority Date/Time Associated Diagnosis Comme [facility] INTERNAL MEDICINE REFERRAL Routine 12/26/2004 ABSTRACTING [place] documented in this encounter Results CONSULT TO INTERNAL MEDICINE (12/26/2004) Specimen (Source) Anatomical Location Collection Method / Collectio n Time Received Time / Laterality Volume 12/26/2004 Narrative This result has an attachment that is no t available. Bj Pelletier MD REFERRAL documented in this encounter Visit Diagnoses Diagnosis ABSTRACTING RESULTS - Primary documented in this encounter Care Teams [employer] Registrar Relationship Specialty Start Date End Date Bj Pelletier MD PCP - General 10/06/02 08/22/16 XXX RESIGNED XXX [address] [facility] [address] [place] [phone] documented as of this encounter
--- OUTSIDE RECORDS SUMMARY | 2021-12-03 11:52 | XMS_ITS | Encounter Summary ---
:1955 Author Organization [place] Address [address] [place] [address] Care Team Providers Name Role Phone Bj Pelletier MD Primary Care Provider Reason for Visit Reason Onset Date Comments Patient Inquiry 03/26/2006 Encounter Details Date Type Department Care Team Description 03/26/2006 Telephone [facility] Noel Thompson Pa tient Inquiry Means Angy ROGER [address] [facility] [address] XXX RETIRED XXX [place], [place] [phone] [place] [address] [phone] (Wo rk) Social History Tobacco Use Types Packs/Day Years Used Date Smoking Tobacco: Never Alcohol Use Standard Drinks/Week Comments Yes 0 (1 standard drink = 0.6 oz pure alcoho l) 2-3 times a week Sex Assigned at Date Recorded Female 01/06/2021 11:10 AM MANAGER SPANISH documented as of this encounter Miscellaneous Notes Telephone Encounter - Noel Thompson - 03/29/2006 1:53 PM CST Will review chart and then contact patient. GER SPANISH Telephone Encounter - Anjana Rodriguez - 03/26/2006 4:27 PM CST Patient was seen last year for low back/pelvis pain. Was referred to surgeon by Dr. Thompson for possible hernia. This was the case and right inguinal hernia was repaired 09/20. Patient states work comp insurance is denying bills for hernia surgery. Patient would like to ask Dr. Thompson what he thought about this: Could hernia have been caused by work or aggrevated by work? 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 Patient may be reached at [phone]. CHART REQUESTED [place] contact is Otis Campbell. Patient did not have his # when I was speaking to her, but if needed we can call her back. Anjana Rodriguez CMA GER SPANISH documented in this encounter Plan of Treatment Not on filedocumented as of this encounter Visit Diagnoses Not on filedocumented in this encounter Care Teams Resist Coater Developer Relationship Specialty Start Date End Date Bj Pelletier MD PCP - General 10/06/02 08/22/16 XXX RESIGNED XXX [address] [facility] [address] [place] [phone] documented as of this encounter
--- OUTSIDE RECORDS SUMMARY | 2021-12-03 11:52 | XMS_ITS | Encounter Summary ---
:1955 Author Organization [place] Address [facility] [place] [address] Care Team Providers Name Role Phone Bj Pelletier MD Primary Care Provider Encounter Details Date Type Department Care Team Description 06/13/2004 Results [facility] Courtney Jama MD Hospital Results OBGYN SPECIALIS TS [address] [facility] [address] [place] [address] (Wo rk) Social History Tobacco Use Types Packs/Day Years Used Date Smoking Tobacco: Never Alcohol Use Standard Drinks/Week Comments Yes 0 (1 standard drink = 0.6 oz pure alcoho l) 2-3 times a week Sex Assigned at Date Recorded Female 01/06/2021 11:10 AM SYSTEM SPECIALIST documented as of this encounter Plan of Treatment Not on filedocumented as of this encounter Procedures Procedure Name Priority Date/Time Associated Comments Diagnosis HC ULTRASOUND Routine 06/13/2004 11:19 AM Results for this BREAST(S) CDT procedure are i n (UNILATERAL OR the results BILATERAL), REAL section. TIME W IMAGE documented in this encounter Results SONO BREAST (06/13/2004 11:19 AM CDT) Anatomical Region Laterality Modality Other Specimen (Source) Anatomical Collection Method Collection Time Re ceived Time Location / / Volume Laterality 06/13/2004 11:19 AM CDT Impressions 06/16/2004 4:35 PM CDT ULTRASOUND OF THE RIGHT BREAST ?? Breast Symptoms: ??Pain, right. ?? Previous Mammography: ??Comparison with [facility] 12/20/03 and [facility] 04/11/02 and 03/06/98. ?? Breast Parenchyma: ??Heterogeneously den se. ? This is a 48-year-old female with persis tent tenderness in the inferior slightly medial right breast da ting back to at least December of 2003. ??There is a small tra nsversely oriented ridge of palpable breast tissue at 6-7 o'clock wh ich is somewhat mobile. ??No other palpable mass. ??I scanned the ent sophia inferior half of the right breast showing only normal breast tissue . ??There is no evidence of malignancy. ? Because of this we can continue to monit or clinically. ??I would recommend obtaining bilateral mammograph y in December of 2004 and at the same time will schedule a repeat ult rasound. ??Ultrasound will be cancelled if the patient's pain subsides . ? IMAGING IMPRESSION: ??ACR BIRADS CATEGOR Y 3, PROBABLY BENIGN FINDING(S). ??RECOMMENDED FOLLOW-UP MAMM OGRAM IN 6 MONTHS DECEMBER 2004 AND ULTRASOUND. Courtney Jama MD SPECIAL IMAGING STUDIES documented in this encounter Visit Diagnoses Not on filedocumented in this encounter Care Teams Nozzle Worker Relationship Specialty Start Date End Date Bj Pelletier MD PCP - General 10/06/02 08/22/16 XXX RESIGNED XXX [address] [facility] [address] [place] [phone] documented as of this encounter
--- OUTSIDE RECORDS SUMMARY | 2021-12-03 11:52 | XMS_ITS | Encounter Summary ---
:1955 Author Organization [place] Address [facility] [place] [address] Care Team Providers Name Role Phone Bj Pelletier MD Primary Care Provider Encounter Details Date Type Department Care Team Description 06/11/2004 Results Only [facility] Gris Jama MD Hospital Results OBGYN SPECIALIS TS [address] [facility] [address] [place] [address] (Wo rk) Social History Tobacco Use Types Packs/Day Years Used Date Smoking Tobacco: Never Alcohol Use Standard Drinks/Week Comments Yes 0 (1 standard drink = 0.6 oz pure alcoho l) 2-3 times a week Sex Assigned at Date Recorded Female 01/06/2021 11:10 AM ADMINISTRATIVE SERVICES DIRECTOR documented as of this encounter Plan of Treatment Not on filedocumented as of this encounter Procedures Procedure Name Priority Date/Time Associated Diagnosis Comme nts HC CT ABDOMEN W Routine 06/11/2004 2:08 PM Result s for this CONTRAST CDT procedure are i n the results section. documented in this encounter Results CT SCAN OF ABDOMEN CONTRAST (06/11/2004 2:08 PM CDT) Anatomical Region Laterality Modality Other Specimen (Source) Anatomical Collection Method Collection Time Re ceived Time Location / / Volume Laterality 06/11/2004 2:08 PM CDT Impressions 06/12/2004 2:[address] ABDOMEN AND PELVIS WITH CONTRAST ?? CLINICAL HISTORY: ??Pelvic pain. ??[place]ers melina C125. ??Patient's mother has ovarian cancer. ? TECHNIQUE: ??With intravenous and oral c ontrast through the abdomen and pelvis. ? FINDINGS: ??There are 5 small indetermin ate low dense liver lesions, too small to characterize. ??The upper a bdominal organs are otherwise normal. ? Bowel and mesentery are within normal li mits. ??The uterus is retroverted and there is a fibroid off o f the fundus of the uterus. The cervix appears somewhat prominent on 2 images but this may be due to the retroverted uterus and relative p ositioning of the cervix. ?? Both ovaries are normal by non-contrast technique. ??No free fluid. No significant adenopathy in the abdomen or pelvis. ? IMPRESSION: 1. ??No evidence for maligna ncy. 2. ??Uterine fibroid. 3. ??Several small liver lesions, likely cysts or possibly benign cavernous hemangiomas, but indeterminate by CT due to the small size. ?? 4. ??Not mentioned above, small 15mm flu id collection or low attenuation lymph node in the right groi n. Courtney Jama MD SPECIAL IMAGING STUDIES documented in this encounter Visit Diagnoses Not on filedocumented in this encounter Care Teams Directional Drill Operator Relationship Specialty Start Date End Date Bj Pelletier MD PCP - General 10/06/02 08/22/16 XXX RESIGNED XXX [address] [facility] [address] [place] [phone] documented as of this encounter
--- OUTSIDE RECORDS SUMMARY | 2021-12-03 11:52 | XMS_ITS | Encounter Summary ---
:1955 Author Organization [place] Address [address] [place] [address] Care Team Providers Name Role Phone Bj Pelletier MD Primary Care Provider Reason for Visit RICHARD Physical Therapy (Routine) - Closed Specialty Diagnoses / Procedures Referred By Contact Refer red To Contact Bj Pelletier MD [facility] XXX RESIGNED XXX MED [address] [place] [address] Referral ID Status Reason Start Date Expiration Date Visits V isits Requested Authorized [id number] Closed 04/06/2005 07/04/2005 12 12 ABIMAEL Encounter Details Date Type Department Care Team Description 04/06/2005 Therapy Visit [place] for Mike Giang iamSCIATIC A; Athletic Medicine - PT iamLUMBAGO; [place] Physical RICHARD Josee Rodriguez ON INDUSTR PREMISES; Therapy [address] iamACCID FROM OVEREXERTION 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 Please refer to the daily flowsheet for treatment today. LATE MAKER documented in this encounter Plan of Treatment Not on filedocumented as of this encounter Procedures Procedure Name Priority Date/Time Associated Diagnosis Comme nts [facility] THERAPEUTIC Routine 04/06/2005 6:05 PM iamSCIATICA ACTIVITIES TEMPLATE MAKER iamLUMBAGO iamACCIDENT ON INDUSTR PREMISES iamACCID FROM OVEREXERTION [facility] THERAPEUTIC Routine 04/06/2005 6:05 PM iamSCIATICA EXERCISES TEMPLATE MAKER iamLUMBAGO iamACCIDENT ON INDUSTR PREMISES iamACCID FROM OVEREXERTION [facility] HOT OR COLD PACKS Routine 04/06/2005 6:05 PM iamSCIA TEO THERAPY TEMPLATE MAKER iamLUMBAGO iamACCIDENT ON INDUSTR PREMISES iamACCID FROM OVEREXERTION documented in this encounter Visit Diagnoses Diagnosis iamSCIATICA Sciatica iamLUMBAGO Lumbago iamACCIDENT ON INDUSTR PREMISES Place of occurrence, industrial places a nd premises iamACCID FROM OVEREXERTION Overexertion and strenuous and repetitiv e movements or loads documented in this encounter Care Teams Circular Head Saw Operator Relationship Specialty Start Date End Date Bj Pelletier MD PCP - General 10/06/02 08/22/16 XXX RESIGNED XXX [address] [place] [phone] documented as of this encounter
--- OUTSIDE RECORDS SUMMARY | 2021-12-03 11:52 | XMS_ITS | Encounter Summary ---
:1955 Author Organization [place] Address [address] [place] [address] Care Team Providers Name Role Phone Bj Pelletier MD Primary Care Provider Reason for Visit R[facility] Physical Therapy (Routine) - Closed Specialty Diagnoses / Procedures Referred By Contact Refer red To Contact Bj Pelletier MD [facility] XXX RESIGNED XXX MED [address] [place] [address] Referral ID Status Reason Start Date Expiration Date Visits V isits Requested Authorized [id number] Closed 04/06/2005 07/04/2005 12 12 ABIMAEL Encounter Details Date Type Department Care Team Description 04/28/2005 Therapy Visit [place] for Mike Giang, Deep ; Athletic Medicine - PT iamSCIATICA; [place] Physical RICHARD Josee Rodriguez ON INDUSTR PREMISES; Therapy [address] iamACCID FROM OVEREXERTION 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 SION HUMAN RESOURCES MANAGER documented in this encounter Plan of Treatment Not on filedocumented as of this encounter Procedures Procedure Name Priority Date/Time Associated Diagnosis Comme nts [facility] MANUAL THER Routine 04/28/2005 3:18 PM iamLUMBAGO TECH,1+REGIONS,EA 15 DIVISION HUMAN RESOURCES MANAGER iamSCIATICA MIN iamACCIDENT ON INDUSTR PREMISES iamACCID FROM OVEREXERTION [facility] THERAPEUTIC Routine 04/28/2005 3:18 PM iamLUMBAGO EXERCISES DIVISION HUMAN RESOURCES MANAGER iamSCIATICA iamACCIDENT ON INDUSTR PREMISES iamACCID FROM OVEREXERTION documented in this encounter Visit Diagnoses Diagnosis iamLUMBAGO Lumbago iamSCIATICA Sciatica iamACCIDENT ON INDUSTR PREMISES Place of occurrence, industrial places a nd premises iamACCID FROM OVEREXERTION Overexertion and strenuous and repetitiv e movements or loads documented in this encounter Care Teams Framing Mill Operator Helper Relationship Specialty Start Date End Date Bj Pelletier MD PCP - General 10/06/02 08/22/16 XXX RESIGNED XXX [address] [facility] [address] [place] [phone] documented as of this encounter
--- OUTSIDE RECORDS SUMMARY | 2021-12-03 11:52 | XMS_ITS | Encounter Summary ---
:1955 Author Organization [place] Address [facility] 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 TIME W IMAGE C MAMMOGRAM, ONE Routine 07/01/2004 1:26 PM Resul ts for this BREAST CDT procedure are i n the results section. documented in this encounter Results SONO BREAST (07/01/2004 2:15 PM CDT) Anatomical Region Laterality Modality Other Specimen (Source) Anatomical Collection Method Collection Time Re ceived Time Location / / Volume Laterality 07/01/2004 2:15 PM CDT Impressions 07/04/2004 3:51 PM CDT DIAGNOSTIC LEFT MAMMOGRAM, AND LEFT [facility]AV[facility] ST ULTRASOUND Clinical history: ??Left breast fullness and pain in the 12-1 o'clock position. Breast Symptoms: ??Lump, left. ?? Previous mammography: ??Comparison with [facility] 06/13/04 - 12/20/03. ??There is no significant change. ?? Breast parenchyma: Heterogeneously dense . Findings: ?? Mammogram: ??Mammography shows interval stability compared with 12/20/03. ??There is slight asymmetric pa renchymal density in the outer upper aspect of the left breast, but no identifiable focal masses, tumor calcifications or skin changes to suggest an underlying malignancy. Ultrasound: ??Sonographic evaluation of the 12-1 o'clock position shows a small 1 cm cyst, which is anecho ic, with good through transmission. ??No other sonographic abn ormalities are noted, and I do not personally feel any palpable lump or abnormality in this region. IMAGING IMPRESSION: ??ACR BI-RADS CATEGO RY 2, BENIGN FINDINGS, LEFT BREAST. Recommend returning for annual mammograp hy screening studies. Courtney Jama MD SPECIAL IMAGING STUDIES MAMMOGRAM, ONE BREAST (07/01/2004 1:26 PM CDT) Anatomical Region Laterality Modality Other Specimen (Source) Anatomical Collection Method Collection Time Re ceived Time Location / / Volume Laterality 07/01/2004 1:26 PM CDT Impressions 07/04/2004 3:51 PM CDT DIAGNOSTIC LEFT MAMMOGRAM, AND LEFT [facility]AV[facility] ST ULTRASOUND Clinical history: ??Left breast fullness and pain in the 12-1 o'clock position. Breast Symptoms: ??Lump, left. ?? Previous mammography: ??Comparison with [facility] 06/13/04 - 12/20/03. ??There is no significant change. ?? Breast parenchyma: Heterogeneously dense . Findings: ?? Mammogram: ??Mammography shows interval stability compared with 12/20/03. ??There is slight asymmetric pa renchymal density in the outer upper aspect of the left breast, but no identifiable focal masses, tumor calcifications or skin changes to suggest an underlying malignancy. Ultrasound: ??Sonographic evaluation of the 12-1 o'clock position shows a small 1 cm cyst, which is anecho ic, with good through transmission. ??No other sonographic abn ormalities are noted, and I do not personally feel any palpable lump or abnormality in this region. IMAGING IMPRESSION: ??ACR BI-RADS CATEGO RY 2, BENIGN FINDINGS, LEFT BREAST. Recommend returning for annual mammograp hy screening studies. Courtney Jama MD SPECIAL IMAGING STUDIES documented in this encounter Visit Diagnoses Not on filedocumented in this encounter Care Teams Folding Machine Setter Relationship Specialty Start Date End Date Bj Pelletier MD PCP - General 10/06/02 08/22/16 XXX RESIGNED XXX [address] [facility] [address] [place] [address] documented as of this encounter
--- OUTSIDE RECORDS SUMMARY | 2021-12-03 11:52 | XMS_ITS | Encounter Summary ---
:1955 Author Organization [place] Address [facility] [place] [address] Care Team Providers Name Role Phone Bj Pelletier MD Primary Care Provider Encounter Details Date Type Department Care Team Description 12/20/2003 Results Only Courtney Jama M D DESIGN TRANSFERRER S [address] [place], [place] [address] (Wo rk) Social History Tobacco Use Types Packs/Day Years Used Date Smoking Tobacco: Never Alcohol Use Standard Drinks/Week Comments Yes 0 (1 standard drink = 0.6 oz pure alcoho l) 2-3 times a week Sex Assigned at Date Recorded Female 01/06/2021 11:10 AM AUTOMATION QA TESTER documented as of this encounter Plan of Treatment Not on filedocumented as of this encounter Procedures Procedure Name Priority Date/Time Associated Comments Diagnosis HC ULTRASOUND Routine 12/20/2003 1:51 PM Results for this BREAST(S) AUTOMATION QA TESTER procedure are i n (UNILATERAL OR the results BILATERAL), REAL section. TIME W IMAGE HC MAMMOGRAM, Routine 12/20/2003 1:19 PM Results for this DIAGNOSTIC BILATERAL AUTOMATION QA TESTER procedu re are in the results section. C MAMMOGRAM, BOTH Routine 12/20/2003 1:19 PM Resu lts for this BREASTS (DIAG) AUTOMATION QA TESTER procedure are in the results section. documented in this encounter Results SONO BREAST (12/20/2003 1:51 PM AUTOMATION QA TESTER) Anatomical Region Laterality Modality Other Specimen (Source) Anatomical Collection Method Collection Time Re ceived Time Location / / Volume Laterality 12/20/2003 1:51 PM AUTOMATION QA TESTER Impressions 12/21/2003 12:59 PM AUTOMATION QA TESTER BILATERAL DIAGNOSTIC MAMMOGRAM AND RIGHT BREAST ULTRASOUND ? Indication for Examination: ??Painful ar ea. ? Breast Symptoms: ??Lump, pain on right. ?? Previous Mammography: ??Comparison with [facility] 04/11/02, 03/06/98. ?? There is no significant change. ? Breast Parenchyma: ??Heterogeneously den se. ? Findings: ??No masses or tumor calcifica tions either breast on mammography. ??Ultrasound medial lower q uadrant demonstrates no evidence of cystic or solid nodule. ??Th ere is no evidence of malignancy. ??Management of pain symptom atology would be on a clinical basis. ??Routine screening mammography s uggested in one year. ? IMAGING IMPRESSION: ??ACR BI-RADS CATEGO RY 1, NEGATIVE. Courtney Jama MD SPECIAL IMAGING STUDIES MAMMOGRAPHY; BILATERAL (12/20/2003 1:19 PM AUTOMATION QA TESTER) Anatomical Region Laterality Modality Other Specimen (Source) Anatomical Collection Method Collection Time Re ceived Time Location / / Volume Laterality 12/20/2003 1:19 PM AUTOMATION QA TESTER Impressions 12/21/2003 12:59 PM AUTOMATION QA TESTER BILATERAL DIAGNOSTIC MAMMOGRAM AND RIGHT BREAST ULTRASOUND ? Indication for Examination: ??Painful ar ea. ? Breast Symptoms: ??Lump, pain on right. ?? Previous Mammography: ??Comparison with [facility] 04/11/02, 03/06/98. ?? There is no significant change. ? Breast Parenchyma: ??Heterogeneously den se. ? Findings: ??No masses or tumor calcifica tions either breast on mammography. ??Ultrasound medial lower q uadrant demonstrates no evidence of cystic or solid nodule. ??Th ere is no evidence of malignancy. ??Management of pain symptom atology would be on a clinical basis. ??Routine screening mammography s uggested in one year. ? IMAGING IMPRESSION: ??ACR BI-RADS CATEGO RY 1, NEGATIVE. Courtney Jama MD SPECIAL IMAGING STUDIES MAMMOGRAM, BOTH BREASTS (DIAG) (12/20/2003 1:19 PM AUTOMATION QA TESTER) Anatomical Region Laterality Modality Other Specimen (Source) Anatomical Collection Method Collection Time Re ceived Time Location / / Volume Laterality 12/20/2003 1:19 PM AUTOMATION QA TESTER Impressions 12/21/2003 12:59 PM AUTOMATION QA TESTER BILATERAL DIAGNOSTIC MAMMOGRAM AND RIGHT BREAST ULTRASOUND ? Indication for Examination: ??Painful ar ea. ? Breast Symptoms: ??Lump, pain on right. ?? Previous Mammography: ??Comparison with [facility] 04/11/02, 03/06/98. ?? There is no significant change. ? Breast Parenchyma: ??Heterogeneously den se. ? Findings: ??No masses or tumor calcifica tions either breast on mammography. ??Ultrasound medial lower q uadrant demonstrates no evidence of cystic or solid nodule. ??Th ere is no evidence of malignancy. ??Management of pain symptom atology would be on a clinical basis. ??Routine screening mammography s uggested in one year. ? IMAGING IMPRESSION: ??ACR BI-RADS CATEGO RY 1, NEGATIVE. Courtney Jama MD SPECIAL IMAGING STUDIES documented in this encounter Visit Diagnoses Not on filedocumented in this encounter Care Teams Superintendent Of Schools Relationship Specialty Start Date End Date Bj Pelletier MD PCP - General 10/06/02 08/22/16 XXX RESIGNED XXX [address] [facility] [address] [place] [address] documented as of this encounter
--- OUTSIDE RECORDS SUMMARY | 2021-12-03 11:52 | XMS_ITS | Encounter Summary ---
:1955 Author Organization [place] Address [address] [place] [address] Care Team Providers Name Role Phone Bj Pelletier MD Primary Care Provider Reason for Visit RICHARD Physical Therapy (Routine) - Closed Specialty Diagnoses / Procedures Referred By Contact Refer red To Contact Bj Pelletier MD [facility] XXX RESIGNED XXX MED [address] [place] [address] Referral ID Status Reason Start Date Expiration Date Visits V isits Requested Authorized [id number] Closed 04/06/2005 07/04/2005 12 12 ABIMAEL Encounter Details Date Type Department Care Team Description 05/28/2005 Therapy Visit [place] for Mike Giang, Deep ; Athletic Medicine - PT iamSCIATICA; [place] [facility] RICHARD Josee Rodriguez ON INDUSTR PREMISES; Therapy [address] iamACCID FROM OVEREXERTION 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 Please refer to the daily flowsheet for treatment today. documented in this encounter Plan of Treatment Not on filedocumented as of this encounter Procedures Procedure Name Priority Date/Time Associated Diagnosis Comme nts [facility] MANUAL THER Routine 05/28/2005 12:39 PM iamLUMBAGO TECH,1+REGIONS,EA 15 CDT iamSCIATICA MIN iamACCIDENT ON INDUSTR PREMISES iamACCID FROM OVEREXERTION [facility] THERAPEUTIC Routine 05/28/2005 12:39 PM iamLUMBAGO EXERCISES CDT iamSCIATICA iamACCIDENT ON INDUSTR PREMISES iamACCID FROM OVEREXERTION documented in this encounter Visit Diagnoses Diagnosis iamLUMBAGO Lumbago iamSCIATICA Sciatica iamACCIDENT ON INDUSTR PREMISES Place of occurrence, industrial places a nd premises iamACCID FROM OVEREXERTION Overexertion and strenuous and repetitiv e movements or loads documented in this encounter Care Teams Network Developer Relationship Specialty Start Date End Date Bj Pelletier MD PCP - General 10/06/02 08/22/16 XXX RESIGNED XXX [address] [facility] [address] [place] [address] documented as of this encounter
--- OUTSIDE RECORDS SUMMARY | 2021-12-03 11:52 | XMS_ITS | Encounter Summary ---
:1955 Author Organization [place] Address [address] [place] [address] Care Team Providers Name Role Phone Bj Pelletier MD Primary Care Provider Reason for Visit Reason Onset Date Comments Patient Inquiry 04/07/2006 Encounter Details Date Type Department Care Team Description 04/07/2006 Telephone [facility] Noel Thompson Pa tient Inquiry [place] Angy ROGER [address] [place], [place] [phone] [place] [address] [phone] (Wo rk) Social History Tobacco Use Types Packs/Day Years Used Date Smoking Tobacco: Never Alcohol Use Standard Drinks/Week Comments Yes 0 (1 standard drink = 0.6 oz pure alcoho l) 2-3 times a week Sex Assigned at Date Recorded Female 01/06/2021 11: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 Anjana Rodriguez CMA DING SUPPLIES SALESPERSON RETAIL Telephone Encounter - Anjana Rodriguez - 04/09/2006 4:10 PM CST Patient spoke with [employer] ins [employer]. [employer] would prefer to link hernia to original claim. Lena calloway said they will need documentation from MD stating how hernia and back/leg injury is related. 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 Once letter ready, please fax to: Lena Calloway attn: Otis Campbell [phone] Include claim # [id number] DING SUPPLIES SALESPERSON RETAIL Telephone Encounter - Anjana Rodriguez - 04/09/2006 2:52 PM CST Patient advised of Dr. Thompson's msg. She will contact [employer] and try to file new claim. Will call back if letter needed. Anjana Rodriguez CMA DING SUPPLIES SALESPERSON RETAIL Telephone Encounter - Noel Thompson - 04/08/2006 8:59 AM CST I read the note regarding Ms. العلي's call and called her home number in response. I left a voice mail. Should she call back in my absence the following should be conveyed to her: I do not believe the back injury and the hernia are medically or pathologically related. I do believe the two conditions are causally related in other words both conditions arose out of work related strain.In retrospect some of your leg pain and certainly the groin pain were probably due to the developing hernia. It would perhaps be glass cleaner to file a separate report of injury regarding the hernia, but given the time lapse that may be a problem, the insurance rep could advise. I would be happy to write a letter stating my opinion that both conditions arose out of lifting strain at work if that is desired. DING SUPPLIES SALESPERSON RETAIL Telephone Encounter - Anjana Rodriguez - 04/07/2006 5:22 PM CST Patient states work comp insurance suggested she do one of the following for them to further processwork comp claim for hernia repair: 1. Submit letter from Dr. Thompson stating hernia was related to back injury/pain that patient was originally seen for or: 2. To file a completely new incident report with previous employer ([employer]). Patient is asking what Dr. Thompson recommends? Should she try letter first? What does he feel would be the best choice? DING SUPPLIES SALESPERSON RETAIL documented in this encounter Plan of Treatment Not on filedocumented as of this encounter Visit Diagnoses Not on filedocumented in this encounter Care Teams Sprinkler Irrigation Equipment Mechanic Relationship Specialty Start Date End Date Bj Pelletier MD PCP - General 10/06/02 08/22/16 XXX RESIGNED XXX [address] [place] [address] documented as of this encounter
--- OUTSIDE RECORDS SUMMARY | 2021-12-03 11:52 | XMS_ITS | Encounter Summary ---
:1955 Author Organization [place] Address [address] [place] [address] Care Team Providers Name Role Phone Bj Pelletier MD Primary Care Provider Encounter Details Date Type Department Care Team Description 05/07/2005 Therapy Visit [place] for Megan Carrillo, Rufina O; Athletic Medicine - PT iamSCIATICA; [place] Physical RICHARD iamACCIDENT ON INDUSTR PREMISES; Therapy [address] iamACCID FROM OVEREXERTION 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 E CUTTER documented in this encounter Plan of Treatment Not on filedocumented as of this encounter Procedures Procedure Name Priority Date/Time Associated Diagnosis Comme nts [facility] MANUAL THER Routine 05/07/2005 12:01 PM iamLUMBAGO TECH,1+REGIONS,EA 15 STONE CUTTER iamSCIATICA MIN iamACCIDENT ON INDUSTR PREMISES iamACCID FROM OVEREXERTION [facility] THERAPEUTIC Routine 05/07/2005 12:01 PM iamLUMBAGO ACTIVITIES STONE CUTTER iamSCIATICA iamACCIDENT ON INDUSTR PREMISES iamACCID FROM OVEREXERTION [facility] THERAPEUTIC Routine 05/07/2005 12:01 PM iamLUMBAGO EXERCISES STONE CUTTER iamSCIATICA iamACCIDENT ON INDUSTR PREMISES iamACCID FROM OVEREXERTION documented in this encounter Visit Diagnoses Diagnosis iamLUMBAGO Lumbago iamSCIATICA Sciatica iamACCIDENT ON INDUSTR PREMISES Place of occurrence, industrial places a nd premises iamACCID FROM OVEREXERTION Overexertion and strenuous and repetitiv e movements or loads documented in this encounter Care Teams Clipper Counters Relationship Specialty Start Date End Date Bj Pelletier MD PCP - General 10/06/02 08/22/16 XXX RESIGNED XXX [address] [place] [address] documented as of this encounter
--- OUTSIDE RECORDS SUMMARY | 2021-12-03 11:52 | XMS_ITS | Encounter Summary ---
:1955 Author Organization [place] Address [address] [place] [address] Care Team Providers Name Role Phone Bj Pelletier MD Primary Care Provider Encounter Details Date Type Department Care Team Description 07/07/[address] [facility] Noel Thompson, Hospital Results XXX RETIRED XXX [place], [place] [phone] (Wo rk) Social History Tobacco Use Types Packs/Day Years Used Date Smoking Tobacco: Never Alcohol Use Standard Drinks/Week Comments Yes 0 (1 standard drink = 0.6 oz pure alcoho l) 2-3 times a week Sex Assigned at Date Recorded Female 01/06/2021 11:10 AM PURSE SEINER documented as of this encounter Plan of Treatment Not on filedocumented as of this encounter Procedures Procedure Name Priority Date/Time Associated Diagnosis Comme [facility] MRI LUMBAR SPINE Routine 07/07/2005 10:30 AM R esults for this W/O CONTRAST CDT procedure are i n the results section. documented in this encounter Results MRI LUMBAR SPINE (07/07/2005 10:30 AM CDT) Anatomical Region Laterality Modality Other Specimen (Source) Anatomical Collection Method Collection Time Re ceived Time Location / / Volume Laterality 07/07/2005 10:30 AM CDT Impressions 07/08/2005 11:31 AM CDT MRI LUMBAR SPINE ?? HISTORY: ??Back pain. ? TECHNIQUE: ??Sagittal T1 and FSE T2, axi al dual echo T2. ? FINDINGS: ??Sagittal images demonstrate normal vertebral body height. ?? Bone marrow signal is unremarkable. ??Ti p of the conus medullaris is normal at the L1-2 level. ??No evidence of disk herniation seen on sagittal imaging. ??Axial scans were per formed from L2 to sacrum. ? L2-L3: ??No evidence of disk herniation, central, or foraminal stenosis. ??Facet joints are normal. ?? L3-L4: ??Mild disk bulge without central or foraminal stenosis. ??Facet joints are normal. ? L4-L5: ??Minimal disk bulge. ??No centra l or foraminal stenosis. ??Facet joints are normal. ?? L5-S1: ??Normal. ?? IMPRESSION: ?? No evidence of disk herni ation, central, or foraminal stenosis. Noel Thompson MD SPECIAL IMAGING STUDIES documented in this encounter Visit Diagnoses Not on filedocumented in this encounter Care Teams Msw Relationship Specialty Start Date End Date Bj Pelletier MD PCP - General 10/06/02 08/22/16 XXX RESIGNED XXX [address] [facility] [address] [place] [address] documented as of this encounter
--- OUTSIDE RECORDS SUMMARY | 2021-12-03 11:52 | XMS_ITS | Encounter Summary ---
:1955 Author Organization [place] Address [address] [place] [address] Care Team Providers Name Role Phone Bj Pelletier MD Primary Care Provider Reason for Visit Reason Onset Date Comments Erroneous encounter-disregard 04/03/2005 Encounter Details Date Type Department Care Team Description 04/03/[address] 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
--- OUTSIDE RECORDS SUMMARY | 2021-12-03 11:52 | XMS_ITS | Encounter Summary ---
:1955 Author Organization [place] Address [facility] [place] [address] Care Team Providers Name Role Phone Bj Pelletier MD Primary Care Provider Reason for Visit Reason Comments Refill Request Encounter Details Date Type Department Care Team Description 03/06/2003 Refill [facility] Jarett Thompson MD Refill Request [place] [id number] [place] [address] [address] [place] [address] [place] [address] [phone] Social History Tobacco Use Types Packs/Day Years Used Date Smoking Tobacco: Never Alcohol Use Standard Drinks/Week Comments Yes 0 (1 standard drink = 0.6 oz pure alcoho l) 2-3 times a week Sex Assigned at Date Recorded Female 01/06/2021 11:10 AM RN CLINICAL APPEALS documented as of this encounter Miscellaneous Notes Telephone Encounter - 03/06/2003 11:59 PM RN CLINICAL APPEALS >> MOISES CLEMONS WedMar 07, 2003 3:24 PM Patient states, has [facility] and has to be sick to come in. Advised of Rx refill and rec appt. >> EVIE Massey Mar 07, 2003 11:51 AM LMOMTCB answering machine. >> JARETT Rudd Mar 06, 2003 5:42 PM Recommend appt. Will fill one time >> JOSE Rudd Mar 06, 2003 2:22 PM >> CALL RECEIVED. Contact: pharmacy last office visit 03-20 with Nigel for sinus problem 12-[address] Thompson. documented in this encounter Plan of Treatment Not on filedocumented as of this encounter Visit Diagnoses Not on filedocumented in this encounter Care Teams Technology Internship Relationship Specialty Start Date End Date Bj Pelletier MD PCP - General 10/06/02 08/22/16 XXX RESIGNED XXX [address] [facility] [address] [place] [phone] documented as of this encounter
--- OUTSIDE RECORDS SUMMARY | 2021-12-03 11:52 | XMS_ITS | Encounter Summary ---
:1955 Author Organization [facility] Address [address] [place] [address] Care Team Providers Name Role Phone Bj Pelletier MD Primary Care Provider Reason for Visit R[facility]ARD Physical Therapy (Routine) - Closed Specialty Diagnoses / Procedures Referred By Contact Refer red To Contact Bj Pelletier MD [facility] XXX RESIGNED XXX MED [address] [place] [address] Referral ID Status Reason Start Date Expiration Date Visits V isits Requested Authorized [id number] Closed 04/06/2005 07/04/2005 12 12 ABIMAEL Encounter Details Date Type Department Care Team Description 04/14/2005 Therapy Visit [place] for Mike Giang, Deep ; Athletic Medicine - PT iamSCIATICA; [place] [facility] RICHARD Josee Rodriguez ON INDUSTR PREMISES; Therapy [address] iamACCID FROM OVEREXERTION [address] [place] [phone] Social History Tobacco Use Types Packs/Day Years Used Date Smoking Tobacco: Never Alcohol Use Standard Drinks/Week Comments Yes 0 (1 standard drink = 0.6 oz pure alcoho l) 2-3 times a week Sex Assigned at Date Recorded Female 01/06/2021 11:10 AM ANALYTICS LEADER documented as of this encounter Progress Notes Mike Giang - 04/14/2005 2:24 PM CST Please refer to the daily flowsheet for treatment today. YTICS LEADER documented in this encounter Plan of Treatment Not on filedocumented as of this encounter Procedures Procedure Name Priority Date/Time Associated Diagnosis Comme nts [facility] MANUAL THER Routine 04/14/2005 2:25 PM iamLUMBAGO TECH,1+REGIONS,EA 15 ANALYTICS LEADER iamSCIATICA MIN iamACCIDENT ON INDUSTR PREMISES iamACCID FROM OVEREXERTION [facility] THERAPEUTIC Routine 04/14/2005 2:25 PM iamLUMBAGO EXERCISES ANALYTICS LEADER iamSCIATICA iamACCIDENT ON INDUSTR PREMISES iamACCID FROM OVEREXERTION documented in this encounter Visit Diagnoses Diagnosis iamLUMBAGO Lumbago iamSCIATICA Sciatica iamACCIDENT ON INDUSTR PREMISES Place of occurrence, industrial places a nd premises iamACCID FROM OVEREXERTION Overexertion and strenuous and repetitiv e movements or loads documented in this encounter Care Teams Light Technician Relationship Specialty Start Date End Date Bj Pelletier MD PCP - General 10/06/02 08/22/16 XXX RESIGNED XXX [address] [facility] [address] [place] [address] documented as of this encounter
--- OUTSIDE RECORDS SUMMARY | 2021-12-03 11:52 | XMS_ITS | Encounter Summary ---
:1955 Author Organization [facility] Address [address] [place] [address] Care Team Providers Name Role Phone Bj Pelletier MD Primary Care Provider Reason for Visit RICHARD Physical Therapy (Routine) - Closed Specialty Diagnoses / Procedures Referred By Contact Refer red To Contact Bj Pelletier MD [facility] XXX RESIGNED XXX MED [address] [facility] [address] [place] [address] Referral ID Status Reason Start Date Expiration Date Visits V isits Requested Authorized [id number] Closed 04/06/2005 07/04/2005 12 12 ABIMAEL Encounter Details Date Type Department Care Team Description 05/01/2005 Therapy Visit [place] for Shannon Cowan iamLUMBA GO; Athletic Medicine - PT iamSCIATICA; [place] [facility] [address] Rodriguez ON INDUSTR PREMISES; Therapy [place] [address] iamACCID FROM OVEREXERTION [phone] (Work) [place] [address] Social History Tobacco Use Types Packs/Day Years Used Date Smoking Tobacco: Never Alcohol Use Standard Drinks/Week Comments Yes 0 (1 standard drink = 0.6 oz pure alcoho l) 2-3 times a week Sex Assigned at Date Recorded Female 01/06/2021 11:10 AM STUD DAIRY CATTLE FARMER documented as of this encounter Progress Notes Shannon Cowan - 05/01/2005 4:09 PM CST Please refer to the daily flowsheet for treatment today. DAIRY CATTLE FARMER documented in this encounter Plan of Treatment Not on filedocumented as of this encounter Procedures Procedure Name Priority Date/Time Associated Diagnosis Comme nts [facility] MANUAL THER Routine 05/01/2005 4:10 PM iamLUMBAGO TECH,1+REGIONS,EA 15 STUD DAIRY CATTLE FARMER iamSCIATICA MIN iamACCIDENT ON INDUSTR PREMISES iamACCID FROM OVEREXERTION [facility] THERAPEUTIC Routine 05/01/2005 4:10 PM iamLUMBAGO ACTIVITIES STUD DAIRY CATTLE FARMER iamSCIATICA iamACCIDENT ON INDUSTR PREMISES iamACCID FROM OVEREXERTION [facility] THERAPEUTIC Routine 05/01/2005 4:10 PM iamLUMBAGO EXERCISES STUD DAIRY CATTLE FARMER iamSCIATICA iamACCIDENT ON INDUSTR PREMISES iamACCID FROM OVEREXERTION documented in this encounter Visit Diagnoses Diagnosis iamLUMBAGO Lumbago iamSCIATICA Sciatica iamACCIDENT ON INDUSTR PREMISES Place of occurrence, industrial places a nd premises iamACCID FROM OVEREXERTION Overexertion and strenuous and repetitiv e movements or loads documented in this encounter Care Teams Meat Boner Relationship Specialty Start Date End Date Bj Pelletier MD PCP - General 10/06/02 08/22/16 XXX RESIGNED XXX [address] [place] [phone] documented as of this encounter
--- OUTSIDE RECORDS SUMMARY | 2021-12-03 11:52 | XMS_ITS | Encounter Summary ---
:1955 Author Organization [facility] Address [address] [place] [address] Care Team Providers Name Role Phone Bj Pelletier MD Primary Care Provider Reason for Visit [facility] Physical Therapy (Routine) - Closed Specialty Diagnoses / Procedures Referred By Contact Refer red To Contact Bj Pelletier MD [facility] XXX RESIGNED XXX MED [address] [place] [address] Referral ID Status Reason Start Date Expiration Date Visits V isits Requested Authorized [id number] Closed 04/06/2005 07/04/2005 12 12 ABIMAEL Encounter Details Date Type Department Care Team Description 04/21/2005 Therapy Visit [place] for Mike Giang, Deep ; Athletic Medicine - PT iamSCIATICA; [place] [facility] RICHARD Josee Rodriguez ON INDUSTR PREMISES; Therapy [address] iamACCID FROM OVEREXERTION [address] [place] [phone] Social History Tobacco Use Types Packs/Day Years Used Date Smoking Tobacco: Never Alcohol Use Standard Drinks/Week Comments Yes 0 (1 standard drink = 0.6 oz pure alcoho l) 2-3 times a week Sex Assigned at Date Recorded Female 01/06/2021 11:10 AM CONTACT LENS LATHE OPERATOR documented as of this encounter Progress Notes Mkie Giang - 04/21/2005 3:03 PM CST Please refer to the daily flowsheet for treatment today. ACT LENS LATHE OPERATOR documented in this encounter Plan of Treatment Not on filedocumented as of this encounter Procedures Procedure Name Priority Date/Time Associated Diagnosis Comme nts [facility] MANUAL THER Routine 04/21/2005 3:03 PM iamLUMBAGO TECH,1+REGIONS,EA 15 CONTACT LENS LATHE OPERATOR iamSCIATICA MIN iamACCIDENT ON INDUSTR PREMISES iamACCID FROM OVEREXERTION [facility] THERAPEUTIC Routine 04/21/2005 3:03 PM iamLUMBAGO EXERCISES CONTACT LENS LATHE OPERATOR iamSCIATICA iamACCIDENT ON INDUSTR PREMISES iamACCID FROM OVEREXERTION documented in this encounter Visit Diagnoses Diagnosis iamLUMBAGO Lumbago iamSCIATICA Sciatica iamACCIDENT ON INDUSTR PREMISES Place of occurrence, industrial places a nd premises iamACCID FROM OVEREXERTION Overexertion and strenuous and repetitiv e movements or loads documented in this encounter Care Teams Non Destructive Testing Inspector Relationship Specialty Start Date End Date Bj Pelletier MD PCP - General 10/06/02 08/22/16 XXX RESIGNED XXX [address] [facility] [address] [place] [address] documented as of this encounter
--- OUTSIDE RECORDS SUMMARY | 2021-12-03 11:52 | XMS_ITS | Encounter Summary ---
:1955 Author Organization [place] Address [address] [place] [address] Care Team Providers Name Role Phone Bj Pelletier MD Primary Care Provider Reason for Visit Reason Comments Erroneous encounter-disregard Encounter Details Date Type Department Care Team Description 12/11/2005 [facility] Bj Pelletier MD [facility] [place] XXX RESIGNED XXX encounter-disregard [address] [place], [place] [address] [place], [place] [phone] (Wo rk) Social History Tobacco Use Types Packs/Day Years Used Date Smoking Tobacco: Never Alcohol Use Standard Drinks/Week Comments Yes 0 (1 standard drink = 0.6 oz pure alcoho l) 2-3 times a week Sex Assigned at Date Recorded Female 01/06/2021 11:10 AM FAST FOOD TEAM MEMBER documented as of this encounter Plan of Treatment Not on filedocumented as of this encounter Visit Diagnoses Not on filedocumented in this encounter Care Teams Hospital Clerk Relationship Specialty Start Date End Date Bj Pelletier MD PCP - General 10/06/02 08/22/16 XXX RESIGNED XXX [address] [place] [address] documented as of this encounter
--- OUTSIDE RECORDS SUMMARY | 2021-12-03 11:52 | XMS_ITS | Encounter Summary ---
:1955 Author Organization [place] Address [address] [place] [address] Care Team Providers Name Role Phone Bj Pelletier MD Primary Care Provider Reason for Visit Reason Comments RECHECK f/u on ct from [place] Cough for last 2 weeks Encounter Details Date Type Department Care Team Description 01/29/2005 Office Visit [facility] Bj Roque MD COUGH (Primary Dx) [facility] [place] XXX RESIGNED XXX [address] [place] [phone] (Wo rk) Social History Tobacco Use Types Packs/Day Years Used Date Smoking Tobacco: Never Alcohol Use Standard Drinks/Week Comments Yes 0 (1 standard drink = 0.6 oz pure alcoho l) 2-3 times a week Sex Assigned at Date Recorded Female 01/06/2021 11:10 AM UTILITY SERVICE WORKER documented as of this encounter Last Filed Vital Signs Vital Sign Reading Time Taken Comments Blood Pressure 102/60 01/29/2005 1:15 PM UTILITY SERVICE WORKER Pulse 68 01/29/2005 1:15 PM UTILITY SERVICE WORKER Temperature - - Respiratory Rate 16 01/29/2005 1:15 PM UTILITY SERVICE WORKER Oxygen Saturation - - Inhaled Oxygen Concentration - - Weight 62.1 kg (136 lb 12.8 oz) 01/29/2005 1:15 PM UTILITY SERVICE WORKER Height 161.3 cm (5' 3.5) 01/29/2005 1:15 PM UTILITY SERVICE WORKER Body Mass Index 23.85 01/29/2005 1:15 PM UTILITY SERVICE WORKER documented in this encounter Progress Notes Bj Pelletier - 01/29/2005 1:46 PM CST Megan is a 49 year old female in for Follow-up after a CT scan for Groin pelvic pain paula t she had Done at [facility]-I am enrolled in an ovarain cancer study because of my family hx(Megan does not have the dx) and to go over and test results. She states that she also has a bad cough-for several weeks Patient Active Problem List: ESOPHAGEAL STRICTURE[530.3] URETHRAL STRICTURE NOS[598.9] ASTHMA - MILD PERSISTENT[493.A3] ROS: C: NEGATIVE for fever, chills, change in weight I: NEGATIVE for worrisome rashes, moles or lesions E/M: NEGATIVE for ear, mouth and throat problems R: CV:HX of palpitations No peripheral edema GI: NEGATIVE for nausea, abdominal pain, heartburn, or change in bowel habits Extremities-No swelling No redness or Pain Neuro-No weakness, Numbness or Headache EXAM: GENERAL: Patient is alert and oriented, in no respiratory distress. HEENT: Head without trauma. Conjunctiva clear. Nasal mucosa Normal in appearance. Throat -Normal. Scant, clear post-nasal drip noted. No tenderness over maxillary sinuses. NECK: Supple. No anterior lymph nodes palpable. No posterior nodes. diffuse rhonchi percussion bilaterally. CV: Regular rate and rhythm. No murmur. GI: Abdomen soft, non-tender. Non-distended. Normoactive bowel movements. ASSESSMENT:1) cough Per encounter diagnoses.2) CT scan report of abd normal except for findings of benign liver cysts-no evidence of malignancy PLAN: rassurance Per orders. ITY SERVICE WORKER documented in this encounter Nursing Notes 01/29/2005 1:15 PM CST >> JEROME HERNÁNDEZ 01/29/2005 1:31 pm Megan العلي presents for 1.] f/u on ct from [place]. 2.] cough for last 2 weeks, post nasal drainage, non-productive cough. Initial BP 102/60 Pulse 68 Resp 16 Ht 5' 3.5 (1.61m) Wt 136 lbs 12.8 oz (62.1kg) Body Mass Index is 23.85 kg/(m^2).. BP completed using cuff size: large documented in this encounter Plan of Treatment Not on filedocumented as of this encounter Procedures Procedure Name Priority Date/Time Associated Diagnosis Comme nts ASTHMA ACTION PLAN Routine 01/29/2005 1:44 PM UTILITY SERVICE WORKER Cough documented in this encounter Visit Diagnoses Diagnosis Cough - Primary documented in this encounter Care Teams Bonding Machine Setter Relationship Specialty Start Date End Date Bj Pelletier MD PCP - General 10/06/02 08/22/16 XXX RESIGNED XXX [address] [facility] [address] [place] [phone] documented as of this encounter
--- OUTSIDE RECORDS SUMMARY | 2021-12-03 11:52 | XMS_ITS | Encounter Summary ---
:1955 Author Organization [place] Address [address] [place] [address] Care Team Providers Name Role Phone Bj Pelletier MD Primary Care Provider Reason for Visit Reason Onset Date Comments Other 06/05/2005 Encounter Details Date Type Department Care Team Description 06/05/2005 Telephone [facility] Bj Pelletier MD Other [place] XXX RESIGNED XXX [address] [place] [address] [place] [address] (Wo rk) Social History Tobacco Use Types Packs/Day Years Used Date Smoking Tobacco: Never Alcohol Use Standard Drinks/Week Comments Yes 0 (1 standard drink = 0.6 oz pure alcoho l) 2-3 times a week Sex Assigned at Date Recorded Female 01/06/2021 11:10 AM CHEMICAL DEPENDENCY THERAPIST documented as of this encounter Miscellaneous Notes Telephone Encounter - Juanito June - 06/08/2005 12:29 PM CDT Patient advised of Rx Telephone Encounter - Bj Pelletier - 06/08/2005 11:17 AM CDT Please call and notify pt that prescription faxed to the pharmacy.Thanks! Telephone Encounter - June - 06/05/2005 1:58 PM CDT Patient calling, would like Rx for nasonex or vancenase for her allergies, thanks documented in this encounter Plan of Treatment Not on filedocumented as of this encounter Visit Diagnoses Not on filedocumented in this encounter Care Teams Instrument Installer Relationship Specialty Start Date End Date Bj Pelletier MD PCP - General 10/06/02 08/22/16 XXX RESIGNED XXX [address] [facility] [address] [place] [address] documented as of this encounter
--- OUTSIDE RECORDS SUMMARY | 2021-12-03 11:52 | XMS_ITS | Encounter Summary ---
:1955 Author Organization [place] Address [address] [place] [address]. [place] [address] Care Team Providers Name Role Phone Bj Pelletier MD Primary Care Provider Encounter Details Date Type Department Care Team Description 09/14/2005 Results Only [facility] Bethany Pastrana MD [address] [id number] (Wo rk) Social History Tobacco Use Types Packs/Day Years Used Date Smoking Tobacco: Never Alcohol Use Standard Drinks/Week Comments Yes 0 (1 standard drink = 0.6 oz pure alcoho l) 2-3 times a week Sex Assigned at Date Recorded Female 01/06/2021 11:10 AM THERAPIST documented as of this encounter Plan of Treatment Not on filedocumented as of this encounter Procedures Procedure Name Priority Date/Time Associated Diagnosis Comme [facility] US PELVIC Routine 09/14/2005 1:20 PM Results f or this NON-OB, COMPLETE CDT procedure a re in the results section. documented in this encounter Results SONO PELVIS COMPLETE (09/14/2005 1:20 PM CDT) Anatomical Region Laterality Modality Other Specimen (Source) Anatomical Collection Method Collection Time Re ceived Time Location / / Volume Laterality 09/14/2005 1:20 PM CDT Impressions 09/15/2005 9:39 AM CDT Pelvic ultrasound dated September 14, 2005 Comparison: CT abdomen pelvis dated 2004 and pelvic ultrasound, from August 02, 2003 report on ly. History: 49 year-old female with history of pelvic pain, dysfunctional uterine bleeding and elevated CA 125. ?? mother has ovarian cancer. Last menstrual period September 01. Technique: The exam was performed using both transabdominal and transvaginal techniques to better visual ize the endometrial canal and ovaries. Findings: The uterus is retroverted and measures 9.1 x 4.5 x 6.0 cm. There is one heterogeneous, isoechoic we ll-circumscribed mass within the myometrium of the uterine fundus paula t measures 3.1 x 4.1 x 3.7 cm, and likely represents a fibroid. This fi broid is visualized on CT dated June 11, but not mentioned in the report from the ultrasound dated August 02, 2003. ?? The e ndometrial stripe measures 5 mm in thickness and appears normal. There i s a small amount of free fluid posterior to the uterine fundus in the v icinity of the fibroid. The right ovary measures 2.5 x 1.7 x 3.2 cm. The left ovary measures 2.6 x 1.8 x 1.9 cm. There are several sm all follicles within each ovary. There are no definite adnexal masses. Impression: Uterine fibroid with associa melina free fluid, otherwise normal pelvic ultrasound. I have personally reviewed the image and initial interpretation, and I agree with findings. Rik Pastrana MD SPECIAL IMAGING STUDIES documented in this encounter Visit Diagnoses Not on filedocumented in this encounter Care Teams Cloth Burler Relationship Specialty Start Date End Date Bj Pelletier MD PCP - General 10/06/02 08/22/16 XXX RESIGNED XXX [address] [facility] [address] [place] [address] documented as of this encounter
--- OUTSIDE RECORDS SUMMARY | 2021-12-03 11:52 | XMS_ITS | Encounter Summary ---
:1955 Author Organization [place] Address [facility] [place] [address] Care Team Providers Name Role Phone Bj Pelletier MD Primary Care Provider Encounter Details Date Type Department Care Team Description 03/30/2006 Results Only [facility] Courtney Jama MD Hospital Results OBGYN SPECIALIS TS [address] [facility] 200 [place] [address] (Wo rk) Social History Tobacco Use Types Packs/Day Years Used Date Smoking Tobacco: Never Alcohol Use Standard Drinks/Week Comments Yes 0 (1 standard drink = 0.6 oz pure alcoho l) 2-3 times a week Sex Assigned at Date Recorded Female 01/06/2021 11:10 AM FEED MILL TENDER documented as of this encounter Plan of Treatment Not on filedocumented as of this encounter Procedures Procedure Name Priority Date/Time Associated Diagnosis Comme [facility] MAMMOGRAM, Routine 03/30/2006 3:50 PM Results for this SCREENING BILATERAL FEED MILL TENDER procedur e are in the results section. documented in this encounter Results MAMMOGRAM, SCREENING (03/30/2006 3:50 PM FEED MILL TENDER) Anatomical Region Laterality Modality Other Specimen (Source) Anatomical Collection Method Collection Time Re ceived Time Location / / Volume Laterality 03/30/2006 3:50 PM FEED MILL TENDER Impressions 04/04/2006 9:39 AM FEED MILL TENDER BILATERAL SCREENING MAMMOGRAM ? Breast Symptoms: ??None. ? Previous Mammography: ??Comparison with [facility] 04/11/02; [facility] 12/20/03. ? Breast Parenchyma: ??Heterogeneously den se. ? Findings: ?? There are two low density c ircumscribed nodules in the left medial breast which should be furth er evaluated with additional mammographic views and probably ultrasou nd. ??There has been no worrisome mammographic change in the rig ht breast. ? IMAGING IMPRESSION: ??ACR BIRADS CATEGOR Y 0, INCOMPLETE, NEED ADDITIONAL IMAGING EVALUATION. ??RECOMME ND ADDITIONAL IMAGING DESCRIBED IN REPORT. ? Images were reviewed with the aid of CAD ([employer] ImageChecker V5.3). Courtney Jama MD SPECIAL IMAGING STUDIES documented in this encounter Visit Diagnoses Not on filedocumented in this encounter Care Teams Upsetter Helper Relationship Specialty Start Date End Date Bj Pelletier MD PCP - General 10/06/02 08/22/16 XXX RESIGNED XXX [address] [facility] [address] [place] [address] documented as of this encounter
--- OUTSIDE RECORDS SUMMARY | 2021-12-03 11:52 | XMS_ITS | Encounter Summary ---
:1955 Author Organization [place] Address [address] [place] [address] Care Team Providers Name Role Phone Bj Pelletier MD Primary Care Provider Reason for Visit Reason Onset Date Comments Sinus Problem 03/19/2005 Encounter Details Date Type Department Care Team Description 03/19/[address] [facility] Bj Pelletier MD Sinus Problem [place] XXX RESIGNED XXX [address] [place] [address] [address], [place] [phone] (Wo rk) Social History Tobacco Use Types Packs/Day Years Used Date Smoking Tobacco: Never Alcohol Use Standard Drinks/Week Comments Yes 0 (1 standard drink = 0.6 oz pure alcoho l) 2-3 times a week Sex Assigned at Date Recorded Female 01/06/2021 11:10 AM CHARTER BOAT OPERATOR documented as of this encounter Miscellaneous Notes Telephone Encounter - Emili Rodriguez - 03/19/2005 4:48 PM CST Patient advised. TER BOAT OPERATOR Telephone Encounter - Bj Pelletier - 03/19/2005 4:19 PM CST Please call and notify pt that prescription faxed to the pharmacy.Thanks! TER BOAT OPERATOR Telephone Encounter - Yuridia Noonan - 03/19/2005 11:15 AM CST Pt seen by Dr. Moncada on 03/09/05 and given zpak for sinusitis. Sx initially improved, but past 2 days sx have recurred: green nasal drainage, facial pain, headache, prod. cough (green mucous). Takingadvair/albuterol q 4 hrs and breathing easily. Please advise if you want to see her or treat over phone. thanks. TER BOAT OPERATOR documented in this encounter Plan of Treatment Not on filedocumented as of this encounter Visit Diagnoses Not on filedocumented in this encounter Care Teams Mathematical Technician Relationship Specialty Start Date End Date Bj Pelletier MD PCP - General 10/06/02 08/22/16 XXX RESIGNED XXX [address] [facility] [address] [place] [address] documented as of this encounter
--- OUTSIDE RECORDS SUMMARY | 2021-12-03 11:52 | XMS_ITS | Encounter Summary ---
:1955 Author Organization [place] Address [address] [place] [address] Care Team Providers Name Role Phone Bj Pelletier MD Primary Care Provider Reason for Visit RICHARD Physical Therapy (Routine) - Closed Specialty Diagnoses / Procedures Referred By Contact Refer red To Contact Bj Pelletier MD [facility] XXX RESIGNED XXX MED [address] [place] [address] Referral ID Status Reason Start Date Expiration Date Visits V isits Requested Authorized [id number] Closed 04/06/2005 07/04/2005 12 12 ABIMAEL Encounter Details Date Type Department Care Team Description 05/20/2005 Therapy Visit [place] for Mike Giang, Deep ; Athletic Medicine - PT iamSCIATICA; [place] Physical [facility]ICHARD Josee Rodriguez ON INDUSTR PREMISES; Therapy [address] iamACCID FROM OVEREXERTION 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 documented in this encounter Plan of Treatment Not on filedocumented as of this encounter Procedures Procedure Name Priority Date/Time Associated Diagnosis Comme nts [facility] Routine 05/20/2005 11:30 AM iamLUMBAGO TECH,1+REGIONS,EA 15 CDT iamSCIATICA MIN iamACCIDENT ON INDUSTR PREMISES iamACCID FROM OVEREXERTION [facility] THER[facility] Routine 05/20/2005 11:30 AM iamLUMBAGO ACTIVITIES CDT iamSCIATICA iamACCIDENT ON INDUSTR PREMISES iamACCID FROM OVEREXERTION [facility] Routine 05/20/2005 11:30 AM iamLUMBAGO EXERCISES CDT iamSCIATICA iamACCIDENT ON INDUSTR PREMISES iamACCID FROM OVEREXERTION documented in this encounter Visit Diagnoses Diagnosis iamLUMBAGO Lumbago iamSCIATICA Sciatica iamACCIDENT ON INDUSTR PREMISES Place of occurrence, industrial places a nd premises iamACCID FROM OVEREXERTION Overexertion and strenuous and repetitiv e movements or loads documented in this encounter Care Teams Bond Analyst Relationship Specialty Start Date End Date Bj Pelletier MD PCP - General 10/06/02 08/22/16 XXX RESIGNED XXX [address] [place] [phone] documented as of this encounter
--- OUTSIDE RECORDS SUMMARY | 2021-12-03 11:52 | XMS_ITS | Encounter Summary ---
:1955 Author Organization [place] Address [address] [place] [address] Care Team Providers Name Role Phone Bj Pelletier MD Primary Care Provider Reason for Visit Reason Onset Date Comments Refill Request 12/11/2005 advair Encounter Details Date Type Department Care Team Description [facility] Clinic [place] XXX RESIGNED XXX [address] [place], [place] [address] [place], [place] [phone] (Wo rk) Social History Tobacco Use Types Packs/Day Years Used Date Smoking Tobacco: Never Alcohol Use Standard Drinks/Week Comments Yes 0 (1 standard drink = 0.6 oz pure alcoho l) 2-3 times a week Sex Assigned at Date Recorded Female 01/06/2021 11:10 AM 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 Last OV 04/02/05. States she has not previously needed very often, but started new job and is in contact with someone who has cats-this is major trigger for her. Refill authorized per standing order protocol. documented in this encounter Plan of Treatment Not on filedocumented as of this encounter Visit Diagnoses Diagnosis Mild persistent asthma Unspecified asthma documented in this encounter Care Teams Children'S Tutor Relationship Specialty Start Date End Date Bj Pelletier MD PCP - General 10/06/02 08/22/16 XXX RESIGNED XXX [address] [facility] [address] [place] [phone] documented as of this encounter
--- OUTSIDE RECORDS SUMMARY | 2021-12-03 11:52 | XMS_ITS | Encounter Summary ---
:1955 Author Organization [place] Address [address] [place] [address] Care Team Providers Name Role Phone Bj Pelletier MD Primary Care Provider Reason for Referral - Closed Specialty Diagnoses / Procedures Referred By Contact Refer red To Contact Diagnoses Sciatica Bj Pelletier MD XXX RESIGNED XXX [address] [place] [phone] Referral ID Status Reason Start Date Expiration Date Visits Requ ested Visits Authorized [id number] Closed 04/02/2005 02/14/2011 1 1 RMINATOR HELPER TERMITE Reason for Visit Reason Comments Pain Encounter Details Date Type Department Care Team Description 04/02/2005 Office Visit [facility] Bj Roque MD SCIATICA (Primary Dx) Clinic [place] XX RESIGNED XXX [address] [place] [address] [phone] (Wo rk) Social History Tobacco Use Types Packs/Day Years Used Date Smoking Tobacco: Never Alcohol Use Standard Drinks/Week Comments Yes 0 (1 standard drink = 0.6 oz pure alcoho l) 2-3 times a week Sex Assigned at Date Recorded Female 01/06/2021 11:10 AM EXTERMINATOR HELPER TERMITE documented as of this encounter Last Filed Vital Signs Vital Sign Reading Time Taken Comments Blood Pressure 100/72 04/02/2005 11:00 AM EXTERMINATOR HELPER TERMITE Pulse 76 04/02/2005 11:00 AM EXTERMINATOR HELPER TERMITE Temperature - - Respiratory Rate - - Oxygen Saturation - - Inhaled Oxygen Concentration - - Weight 61.3 kg (135 lb 3.2 oz) 04/02/2005 11:00 AM EXTERMINATOR HELPER TERMITE Height 157.5 cm (5' 2) 04/02/2005 11:00 AM EXTERMINATOR HELPER TERMITE Body Mass Index 24.73 04/02/2005 11:00 AM EXTERMINATOR HELPER TERMITE documented in this encounter Progress Notes Bj Pelletier - 04/02/2005 11:49 AM CST SUBJECTIVE: Megan العلي is a 49 year old y.o. female who is here for a Problem with Left hip radiating into the front on left side or down my left leg, worse when i stand-and i am uncomfortable at Night. 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 ESOPHAGEAL STRICTURE 530.3 ??? URETHRAL STRICTURE NOS 598.9 ??? ASTHMA - MILD PERSISTENT 493.A3 ROS: CONSTITUTIONAL:NEGATIVE for fever, chills, change in weight MUSCULOSKELETAL:arthralgias in left Hip NEURO: NEGATIVE for weakness, dizziness or paresthesias and some buring pain down the left leg OBJECTIVE: BP 100/72 Pulse 76 Ht 5' 2 (1.58m) Wt 135 lbs 3.2 oz (61.3kg) LMP 03/29/2005 GENERAL APPEARANCE: healthy, alert and mild distress MS: extremities normal- no gross deformities noted and decreased range of motion left HIp SKIN: no suspicious lesions or rashes NEURO: Normal strength and tone, , mentation intact and speech normal ASSESSMENT/ PLAN: Piriformis muscle syndrome See Epic Orders. RMINATOR HELPER TERMITE documented in this encounter Nursing Notes 04/02/2005 11:00 AM CST >> FRANCO PICHARDO 04/02/2005 11:17 am Megan L Severiano presents for pain. Initial BP 100/72 Pulse 76 Ht 5' 2 (1.58m) Wt 135 lbs 3.2 oz (61.3kg) LMP 03/29/2005 Body mass index is 24.72 kg/(m^2).. BP completed using cuff size: regular documented in this encounter Plan of Treatment Not on filedocumented as of this encounter Visit Diagnoses Diagnosis Sciatica - Primary documented in this encounter Care Teams Reconciliation Clerk Relationship Specialty Start Date End Date Bj Pelletier MD PCP - General 10/06/02 08/22/16 XXX RESIGNED XXX [address] [facility] [address] [place] [address] documented as of this encounter
--- OUTSIDE RECORDS SUMMARY | 2021-12-03 11:52 | XMS_ITS | Encounter Summary ---
:1955 Author Organization [place] Address [address] [place] [address] Care Team Providers Name Role Phone Bj Pelletier MD Primary Care Provider Reason for Visit Reason Comments Asthma RECHECK Encounter Details Date Type Department Care Team Description 03/09/2005 Office Visit [facility] [place], ACUTE MAXI LLARY SINUSITIS; Clinic [place] Mary Carmen Strickland MD ASTHMA - MILD PERSISTENT [address] [place] [address] [place] [address] [place], [place] [phone] (Wo rk) [address] [phone] Social History Tobacco Use Types Packs/Day Years Used Date Smoking Tobacco: Never Alcohol Use Standard Drinks/Week Comments Yes 0 (1 standard drink = 0.6 oz pure alcoho l) 2-3 times a week Sex Assigned at Date Recorded Female 01/06/2021 11:10 AM CUSTOMER EXPERIENCE LEADER documented as of this encounter Last Filed Vital Signs Vital Sign Reading Time Taken Comments Blood Pressure 106/66 03/09/2005 10:30 AM CUSTOMER EXPERIENCE LEADER Pulse - - Temperature - - Respiratory Rate - - Oxygen Saturation - - Inhaled Oxygen Concentration - - Weight 61.7 kg (136 lb) 03/09/2005 10:30 AM CUSTOMER EXPERIENCE LEADER Height 162.6 cm (5' 4) 03/09/2005 10:30 AM CUSTOMER EXPERIENCE LEADER Body Mass Index 23.34 03/09/2005 10:30 AM CUSTOMER EXPERIENCE LEADER documented in this encounter Progress Notes Zohaib Moncada - 03/09/2005 11:01 AM CST pt is a 49 year old female who is seen here to day to f/u on asthma,pt was exposed to cats 1 wk ago and since then has problems breathing,wheezing at night,has been using albuterol more frequently.pt was on Advair in the past but has stopped using it.also c/o cough with green sputum since 3-4 days,sinus pressure,post nasal drip,no fever. Previous Medical History: ESOPHAGEAL STRICTURE Comment: Dx , [place] [facility] URETHRAL STRICTURE NOS ASTHMA - MILD PERSISTENT ROS: General;negative RESP;asthma,cough ENT:no sorethroat Blood pressure 106/66, height 5' 4 (1.63 m), weight 136 lbs (61.7 kg), last menstrual period 03/02/2005. GENERAL:healthy, alert and no distress HEENT-pupils equal and reactive to light and accommodation, TMs clear, oropharynx clear FACE:bilateral maxillary and frontal sinus tendereness present. NECK: NEGATIVE RESP: Normal - no wheezing. CV: regular rate and rhythm with normal S1, S2 ; no murmur, rub or gallops EXTno peripheral edema, peripheral pulses normal ASSESSMENT AND PLAN: 461.0 ACUTE MAXILLARY SINUSITIS Plan: ZITHROMAX Z-MICHELE 250 MG OR TABS.explained clearly about the medication,insructions and side effects. Call or return to clinic prn if these symtoms worsen, fail to improve as anticipated, or if new symptoms develop. 493.A3 ASTHMA - MILD PERSISTENT Plan:was restarted on ADVAIR DISKUS 100-50 MCG/DOSE as directed.explained clearly about the medication,insructions and side effects.Call or return to clinic prn if these symtoms worsen, fail to improveas anticipated, or if new symptoms develop. OMER EXPERIENCE LEADER documented in this encounter Nursing Notes 03/09/2005 10:30 AM CST >> SFOIE ISAAC 03/09/2005 10:32 am Megan العلي presents for a follow up on asthma. Initial BP 106/66 Ht 5' 4 (1.63m) Wt 136 lbs (61.7kg) LMP 03/02/2005 Body Mass Index is 23.33kg/(m^2). BP completed using cuff size: regular documented in this encounter Plan of Treatment Not on filedocumented as of this encounter Visit Diagnoses Diagnosis Acute maxillary sinusitis Mild persistent asthma Unspecified asthma documented in this encounter Care Teams Desizing Machine Back Tender Relationship Specialty Start Date End Date Bj Pelletier MD PCP - General 10/06/02 08/22/16 XXX RESIGNED XXX [address] [facility] [address] [place] [address] documented as of this encounter
--- OUTSIDE RECORDS SUMMARY | 2021-12-03 11:52 | XMS_ITS | Encounter Summary ---
:1955 Author Organization [place] Address [address] [place] [address] Care Team Providers Name Role Phone Bj Pelletier MD Primary Care Provider Reason for Visit [facility] Physical Therapy (Routine) - Closed Specialty Diagnoses / Procedures Referred By Contact Refer red To Contact Bj Pelletier MD [facility] XXX RESIGNED XXX MED [address] [place] [address] Referral ID Status Reason Start Date Expiration Date Visits V isits Requested Authorized [id number] Closed 04/06/2005 07/04/2005 12 12 ABIMAEL Encounter Details Date Type Department Care Team Description 04/17/2005 Therapy Visit [place] for Mike Giang, Deep ; Athletic Medicine - PT iamSCIATICA; [place] Physical RICHARD Josee Rodriguez ON INDUSTR PREMISES; Therapy [address] iamACCID FROM OVEREXERTION [address] [place] [phone] Social History Tobacco Use Types Packs/Day Years Used Date Smoking Tobacco: Never Alcohol Use Standard Drinks/Week Comments Yes 0 (1 standard drink = 0.6 oz pure alcoho l) 2-3 times a week Sex Assigned at Date Recorded Female 01/06/2021 11:10 AM WOLF HUNTER documented as of this encounter Progress Notes Mike Giang - 04/17/2005 1:24 PM CST Please refer to the daily flowsheet for treatment today. HUNTER documented in this encounter Plan of Treatment Not on filedocumented as of this encounter Procedures Procedure Name Priority Date/Time Associated Diagnosis Comme nts [facility] MANUAL THER Routine 04/17/2005 1:24 PM iamLUMBAGO TECH,1+REGIONS,EA 15 WOLF HUNTER iamSCIATICA MIN iamACCIDENT ON INDUSTR PREMISES iamACCID FROM OVEREXERTION [facility] THERAPEUTIC Routine 04/17/2005 1:24 PM iamLUMBAGO EXERCISES WOLF HUNTER iamSCIATICA iamACCIDENT ON INDUSTR PREMISES iamACCID FROM OVEREXERTION documented in this encounter Visit Diagnoses Diagnosis iamLUMBAGO Lumbago iamSCIATICA Sciatica iamACCIDENT ON INDUSTR PREMISES Place of occurrence, industrial places a nd premises iamACCID FROM OVEREXERTION Overexertion and strenuous and repetitiv e movements or loads documented in this encounter Care Teams Supervisor Nutritional Yeast Relationship Specialty Start Date End Date Bj Pelletier MD PCP - General 10/06/02 08/22/16 XXX RESIGNED XXX [address] [facility] [address] [place] [address] documented as of this encounter
--- OUTSIDE RECORDS SUMMARY | 2021-12-03 11:52 | XMS_ITS | Encounter Summary ---
:1955 Author Organization [place] Address [address] [place] [address] Care Team Providers Name Role Phone Bj Pelletier MD Primary Care Provider Reason for Visit Reason Onset Date Comments Medication Request 06/06/2004 Encounter Details Date Type Department Care Team Description 06/06/2004 Telephone [facility] Bj Pelletier MD Medication Request [place] XXX RESIGNED XXX [address] [place] [phone] (Wo rk) Social History Tobacco Use Types Packs/Day Years Used Date Smoking Tobacco: Never Alcohol Use Standard Drinks/Week Comments Yes 0 (1 standard drink = 0.6 oz pure alcoho l) 2-3 times a week Sex Assigned at Date Recorded Female 01/06/2021 11:10 AM DIRECTOR OF PSYCHIATRY documented as of this encounter Miscellaneous Notes Telephone Encounter - Juanito June - 06/09/2004 3:52 PM CDT patient advised of Rx Telephone Encounter - Juanito June - 06/06/2004 3:23 PM CDT patient calling, forgot to ask you for a Rx for nasonex when she saw you last week-thanks documented in this encounter Plan of Treatment Not on filedocumented as of this encounter Visit Diagnoses Not on filedocumented in this encounter Care Teams Rn Tele Relationship Specialty Start Date End Date Bj Pelletier MD PCP - General 10/06/02 08/22/16 XXX RESIGNED XXX [address] [facility] [address] [place] [phone] documented as of this encounter
--- OUTSIDE RECORDS SUMMARY | 2021-12-03 11:52 | XMS_ITS | Encounter Summary ---
:1955 Author Organization [place] Address [address] [place] [address] Care Team Providers Name Role Phone Bj Pelletier MD Primary Care Provider Encounter Details Date Type Department Care Team Description 05/01/2005 Telephone [place] for Athletic Shannon Cowan, Medicine - [place] [address] [place] [address] [address] [place] [address] Social History Tobacco Use Types Packs/Day Years Used Date Smoking Tobacco: Never Alcohol Use Standard Drinks/Week Comments Yes 0 (1 standard drink = 0.6 oz pure alcoho l) 2-3 times a week Sex Assigned at Date Recorded Female 01/06/2021 11:10 AM SUPERVISOR CEMETERY WORKERS documented as of this encounter Plan of Treatment Not on filedocumented as of this encounter Visit Diagnoses Diagnosis iamLUMBAGO Lumbago iamSCIATICA Sciatica iamACCIDENT ON INDUSTR PREMISES Place of occurrence, industrial places a nd premises iamACCID FROM OVEREXERTION Overexertion and strenuous and repetitiv e movements or loads documented in this encounter Care Teams Coat Joiner Lockstitch Relationship Specialty Start Date End Date Bj Pelletier MD PCP - General 10/06/02 08/22/16 XXX RESIGNED XXX [address] [place] [phone] documented as of this encounter
--- OUTSIDE RECORDS SUMMARY | 2021-12-03 11:53 | XMS_ITS | Encounter Summary ---
:1955 Author Organization [place] Address [facility] 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 In the future, we should send to pt to submit to [employer] >> EVIE DUBON [facility] Sep 29, 2001 2:34 PM Called [employer]-they cannot refax. They want to know if Ok to change to preferred formulary Prilosec or Nexium. >> JARETT DESAI WedSep 28, 2001 7:19 PM Many [employer] fax numbers. need lamas or may send to patient to be submitted by patient >> EVIE DUBON WedSep 28, 2001 3:07 PM >> CALL RECEIVED. Contact: [employer] Requesting formulary change. Prevacid 15mg. Preferred formulary Prilosec or Nexium. Ok to change? Reference Dr. Desai's name/zip code. Did you receive FAX? The chart has been requested. documented in this encounter Plan of Treatment Not on filedocumented as of this encounter Visit Diagnoses Not on filedocumented in this encounter Care Teams Police Inspector Relationship Specialty Start Date End Date Doctor, None, PCP - General 04/01/01 10/05/02 documented as of this encounter
--- OUTSIDE RECORDS SUMMARY | 2021-12-03 11:53 | XMS_ITS | Encounter Summary ---
:1955 Author Organization [place] Address [facility] [place] [address] Care Team Providers Name Role Phone Bj Pelletier MD Primary Care Provider Reason for Visit Reason Comments Refill Request Encounter Details Date Type Department Care Team Description 10/26/2002 Refill [facility] Jarett Desai MD Refill Request [place] [id number] [place] [address] [address] [place] [address] [place] [address] [phone] Social History Tobacco Use Types Packs/Day Years Used Date Smoking Tobacco: Never Alcohol Use Standard Drinks/Week Comments Yes 0 (1 standard drink = 0.6 oz pure alcoho l) 2-3 times a week Sex Assigned at Date Recorded Female 01/06/2021 11:10 AM SKI PRODUCTION SUPERVISOR documented as of this encounter Miscellaneous Notes Telephone Encounter - 10/26/2002 11:59 PM CDT >> JOSE Rudd Oct 31, 2002 4:27 PM Pt states does not have insurance coverage for well visits and can not go to the specialist unless she is having a problem. States Prevacid is helping. >> MOISES Green Oct 27, 2002 3:38 PM Left message with daughter to call back. >> JARETT DESAI WedOct 27, 2002 1:58 PM At last appt, Dr. Manning referred to GI, No report from that visit. Did pt go?? Rx refilled >> MOISES Dumont Oct 26, 2002 10:04 AM >> CALL RECEIVED. Contact: Erin last fill date: 09/04/2002 Original fill date: 02/23/2002 documented in this encounter Plan of Treatment Not on filedocumented as of this encounter Visit Diagnoses Not on filedocumented in this encounter Care Teams Superintendent Recreation Relationship Specialty Start Date End Date Bj Pelletier MD PCP - General 10/06/02 08/22/16 XXX RESIGNED XXX [address] [facility] [address] [place] [address] documented as of this encounter
--- OUTSIDE RECORDS SUMMARY | 2021-12-03 11:53 | XMS_ITS | Encounter Summary ---
:1955 Author Organization [place] Address [address] [place] [address] Care Team Providers Name Role Phone DoctorStella MD Primary Care Provider Unavailable Reason for Visit Reason Comments Imm/Inj Encounter Details Date Type Department Care Team Description 01/23/2002 Allied Health/Nurse [facility] Imm/Inj Visit [place] [address] [place] [address] Social History Tobacco Use Types Packs/Day Years Used Date Smoking Tobacco: Never Alcohol Use Standard Drinks/Week Comments Yes 0 (1 standard drink = 0.6 oz pure alcoho l) 2-3 times a week Sex Assigned at Date Recorded Female 01/06/2021 11:10 AM LEAD BASED PAINT TECHNICIAN documented as of this encounter Plan of Treatment Not on filedocumented as of this encounter Visit Diagnoses Diagnosis Need for prophylactic vaccination with t etanus-diphtheria (Td) Need for prophylactic vaccination and in oculation against viral hepatitis documented in this encounter Care Teams Ecologist Relationship Specialty Start Date End Date Stella Osborne MD PCP - General 04/01/01 10/05/02 documented as of this encounter
--- OUTSIDE RECORDS SUMMARY | 2021-12-03 11:53 | XMS_ITS | Encounter Summary ---
:1955 Author Organization [place] Address [facility] [place] [address] Care Team Providers Name Role Phone DoctorStella MD Primary Care Provider Unavailable Reason for Visit Reason Comments Refill Request Encounter Details Date Type Department Care Team Description 09/26/2001 Refill [facility] Hailey Thompson MD Refill Request [place] [id number] [place] [address] [address] [place] [address] [place] [address] [phone] Social History Tobacco Use Types Packs/Day Years Used Date Smoking Tobacco: Never Assessed Sex Assigned at Date Recorded Female 01/06/2021 11:10 AM MANAGER REHAB documented as of this encounter Miscellaneous Notes Telephone Encounter - 09/26/2001 11:59 PM CDT >> EVIE DUBON WedSep 28, 2001 3:03 PM >> CALL RECEIVED. Contact: documented in this encounter Plan of Treatment Not on filedocumented as of this encounter Visit Diagnoses Not on filedocumented in this encounter Care Teams Lead Ruby On Rails Developer Relationship Specialty Start Date End Date Stella Osborne MD PCP - General 04/01/01 10/05/02 documented as of this encounter
--- OUTSIDE RECORDS SUMMARY | 2021-12-03 11:53 | XMS_ITS | Encounter Summary ---
:1955 Author Organization [facility] Address [address] [place] [address] Care Team Providers Name Role Phone Doctor, None MD Primary Care Provider Unavailable Reason for Referral - Closed Specialty Diagnoses / Procedures Referred By Contact Refer red To Contact Diagnoses Stricture and stenosis of esophagus Esophageal reflux Lydia Manning MD [address] [place] [address] Referral ID Status Reason Start Date Expiration Date Visits Requ ested Visits Authorized [id number] Closed 04/11/2002 02/14/2011 1 1 STRAIGHTENER Reason for Visit Reason Comments Chest Pain Pressure in the chest--no co ugh Encounter Details Date Type Department Care Team Description 04/11/2002 Office Visit [facility] Lydia Manning MD ESOPHAGEAL STRICTURE; [facility] [address] ESOPHAGEAL REFLUX [address] [place] [id number] [phone] Social History Tobacco Use Types Packs/Day Years Used Date Smoking Tobacco: Never Alcohol Use Standard Drinks/Week Comments Yes 0 (1 standard drink = 0.6 oz pure alcoho l) 2-3 times a week Sex Assigned at Date Recorded Female 01/06/2021 11:10 AM FISH STRAIGHTENER documented as of this encounter Last Filed Vital Signs Vital Sign Reading Time Taken Comments Blood Pressure 118/70 04/11/2002 10:00 AM FISH STRAIGHTENER Pulse 80 04/11/2002 10:00 AM FISH STRAIGHTENER Temperature - - Respiratory Rate - - Oxygen Saturation - - Inhaled Oxygen Concentration - - Weight - - Height - - Body Mass Index - - documented in this encounter Progress Notes 04/11/2002 10:00 AM FISH STRAIGHTENER Subjective: Megan العلي is a 46 year old female who presents with complaints of chest pain. She no alba pressure in the center of her chest starting 4 nights ago. It has been intermittent, pressure lik e, present for hours, not affected by movement, cough or deep breath. She has a history of GERD with a stricture 4 years ago. She has been taking Prevacid 15mg 2-3 times per week, and started it daily when the pain began. She doubled the dose and tried some rolaids which seemed to help. She has had a sharp painin the same location with belching. Overall her symptoms are better. Today she feels some mild mucus and a mild deep cough, which feels like she may have with her asthma, but no wheezing. Reyes garsia is reporting some CHICAS with stairs. She uses albuterol prn but hasn't used it today. she is compal ining of dysphagia with meat for 6 months, similiar to her previous stricture, and says that when she swallows water it seems to go slowly. She is not having any odynophagia. She has one serving of caf feine per day. Objective: Patient alert in NAD BP 118/70 Pulse 80 Lungs clear Chest wall with mild tenderness right parasternal area, not clear if reproduces previous pain precisely. CV: normal S1, S 2 without murmur, S3 or S4. Assessment/Plan: 1. Chest pain: geoff recurrent reflux, especially rela tion of sharp pain with belching and improvement in the past few days since restarting Prevacid. I ad vised her to continue on Prevacid at 30mg. and rec referral back to GI as she likely has a recurrent stricture causing dysphagia. She is to stayon the Prevacid until GI sees, and I advised her she will likely need fdc treatment if she doeshave reflux. documented in this encounter Nursing Notes 04/11/2002 10:00 AM CST >> SOFIE SCHUSTER 04/11/2002 10:09 am BP cuff size: regular Onset Wednesday04/07/02, chest pressure. Thought it was GERD and started taking her Prevacid 15mg, but has had little relief with this. States she feels sl. dyspneic, and wondered if she should begin her inhaler. Had a viral sinus problem about 1 mo. ago. osei rn documented in this encounter Plan of Treatment Not on filedocumented as of this encounter Procedures Procedure Name Priority Date/Time Associated Diagnosis Comme nts ZZ CONSULT GASTROENTEROLOGY Routine 03/05/2010 Stricture and stenosis of esophagus Esophageal Reflux documented in this encounter Results CONSULT GASTROENTEROLOGY (03/05/2010) Narrative This result has an attachment that is no t available. Lydia Manning MD REFERRAL documented in this encounter Visit Diagnoses Diagnosis Stricture and stenosis of esophagus Esophageal reflux documented in this encounter Care Teams Recruiting Scheduler Relationship Specialty Start Date End Date Doctor, None, PCP - General 04/01/01 10/05/02 documented as of this encounter
--- OUTSIDE RECORDS SUMMARY | 2021-12-03 11:53 | XMS_ITS | Encounter Summary ---
:1955 Author Organization [place] Address [address] [place] [address] Care Team Providers Name Role Phone Doctor, Stella ROGER Primary Care Provider Unavailable Reason for Visit Reason Comments Refill Request Encounter Details Date Type Department Care Team Description 04/11/2002 Refill [facility] Reji Manning MD Refill Request [place] [address] [facility] [address] [place] [address] [place] [address] [phone] Social History Tobacco Use Types Packs/Day Years Used Date Smoking Tobacco: Never Alcohol Use Standard Drinks/Week Comments Yes 0 (1 standard drink = 0.6 oz pure alcoho l) 2-3 times a week Sex Assigned at Date Recorded Female 01/06/2021 11:10 AM IS SUPPORT ANALYST documented as of this encounter Miscellaneous Notes Telephone Encounter - 04/11/2002 11:59 PM IS SUPPORT ANALYST >> MOISES Rudd Apr 11, 2002 10:43 AM >> CALL RECEIVED. Contact: documentation not needed documented in this encounter Plan of Treatment Not on filedocumented as of this encounter Visit Diagnoses Not on filedocumented in this encounter Care Teams Hand Cigar Making Supervisor Relationship Specialty Start Date End Date DoctorStella, PCP - General 04/01/01 10/05/02 documented as of this encounter
--- OUTSIDE RECORDS SUMMARY | 2021-12-03 11:53 | XMS_ITS | Encounter Summary ---
:1955 Author Organization [facility] Address [address] [place] [address] Care Team Providers Name Role Phone Doctor, None Primary Care Provider Unavailable Encounter Details Date Type Department Care Team Description 12/16/2001 Abstract [facility] Koki García [address] [place] [address] Social History Tobacco Use Types Packs/Day Years Used Date Smoking Tobacco: Never Assessed Sex Assigned at Date Recorded Female 01/06/2021 11:10 AM FURNACE CHECKER documented as of this encounter Plan of Treatment Not on filedocumented as of this encounter Procedures Procedure Name Priority Date/Time Associated Diagnosis Comme nts ABSTRACT LABCARE REPORT Routine 12/20/2001 ABSTRACT MAMMO-NO CHARGE Routine 05/23/1999 ABSTRACT PAP (HIM EXTERNAL RESULT) Routine 12/13/1996 documented in this encounter Results ABSTRACT LABCARE REPORT (12/20/2001) Narrative This result has an attachment that is no t available. Koki García LABORATORY ABSTRACT MAMMO-NO CHARGE (05/23/1999) Anatomical Region Laterality Modality Other Koki García GENERAL IMAGING ABSTRACT PAP-NO CHARGE (12/13/1996) Koki García LAB - HIM EXTERNAL RESULT documented in this encounter Visit Diagnoses Not on filedocumented in this encounter Care Teams Automotive Brake Adjuster Relationship Specialty Start Date End Date Doctor, None, MD PCP - General 04/01/01 10/05/02 documented as of this encounter
--- OUTSIDE RECORDS SUMMARY | 2021-12-03 11:53 | XMS_ITS | Encounter Summary ---
:1955 Author Organization [facility] Address [address] [place] [address] Care Team Providers Name Role Phone Doctor, Stella ROGER Primary Care Provider Unavailable Reason for Visit Reason Comments Refill Request Encounter Details Date Type Department Care Team Description 04/19/2002 Refill [facility] Reji Manning MD Refill Request [place] [address] [facility] [address] [place] [address] [place] [address] [phone] Social History Tobacco Use Types Packs/Day Years Used Date Smoking Tobacco: Never Alcohol Use Standard Drinks/Week Comments Yes 0 (1 standard drink = 0.6 oz pure alcoho l) 2-3 times a week Sex Assigned at Date Recorded Female 01/06/2021 11:10 AM POULTRY FARMER MEAT documented as of this encounter Miscellaneous Notes Telephone Encounter - 04/19/2002 11:59 PM POULTRY FARMER MEAT >> LIANA MANNING WedApr 19, 2002 9:11 AM >> CALL RECEIVED. Contact: Formulary rec nexium. documented in this encounter Plan of Treatment Not on filedocumented as of this encounter Visit Diagnoses Not on filedocumented in this encounter Care Teams Freight Engineer Relationship Specialty Start Date End Date Stella Osborne MD PCP - General 04/01/01 10/05/02 documented as of this encounter
--- OUTSIDE RECORDS SUMMARY | 2021-12-03 11:53 | XMS_ITS | Encounter Summary ---
:1955 Author Organization [facility] Address [address] [place] [address] Care Team Providers Name Role Phone Bj Pelletier MD Primary Care Provider Reason for Visit Reason Comments Imm/Inj Encounter Details Date Type Department Care Team Description 10/06/2002 Allied Health/Nurse Health [facility] Imm/Inj Visit [place] [address] [place] [address] Social History Tobacco Use Types Packs/Day Years Used Date Smoking Tobacco: Never Alcohol Use Standard Drinks/Week Comments Yes 0 (1 standard drink = 0.6 oz pure alcoho l) 2-3 times a week Sex Assigned at Date Recorded Female 01/06/2021 11:10 AM DICTAPHONE MECHANIC documented as of this encounter Plan of Treatment Not on filedocumented as of this encounter Visit Diagnoses Diagnosis Need for prophylactic vaccination and in oculation against viral hepatitis - Primary documented in this encounter Care Teams Jacquard Twine Polisher Operator Relationship Specialty Start Date End Date Bj Pelletier MD PCP - General 10/06/02 08/22/16 XXX RESIGNED XXX [address] [place] [phone] documented as of this encounter
--- OUTSIDE RECORDS SUMMARY | 2021-12-03 11:53 | XMS_ITS | Encounter Summary ---
:1955 Author Organization [place] Address [facility] [place] [address] Care Team Providers Name Role Phone Doctor, None MD Primary Care Provider Unavailable Reason for Visit Reason Comments Refill Request Encounter Details Date Type Department Care Team Description 02/14/2002 Refill [facility] Jarett Desai MD Refill Request [place] [id number] [place] [address] [address] [place] [address] [place] [address] [phone] Social History Tobacco Use Types Packs/Day Years Used Date Smoking Tobacco: Never Alcohol Use Standard Drinks/Week Comments Yes 0 (1 standard drink = 0.6 oz pure alcoho l) 2-3 times a week Sex Assigned at Date Recorded Female 01/06/2021 11:10 AM TYPING BOOKKEEPER documented as of this encounter Miscellaneous Notes Telephone Encounter - 02/14/2002 11:59 PM TYPING BOOKKEEPER Addended by: JOSE KIRK on: 02/17/2002,2:04 PM Comment: PT NOT AVAILABLE AT THIS TIME. Module s accepted: Progress Notes Addended by: JARETT DESAI on: 02/16/2002,6:15 PM Comment: Chart now available, last seen 07/22/00; Hx of esophageal stricture and is followed by [facility], GI; med should come from GI Modules accepted: Progress Notes >> JES Rudd Feb 14, 2002 9:[address] Bharat funk The chart has been requested. >> JES Rudd Feb 14, 2002 9:24 AM >> CALL RECEIVED. Contact: documented in this encounter Plan of Treatment Not on filedocumented as of this encounter Visit Diagnoses Not on filedocumented in this encounter Care Teams Director Blood Bank Relationship Specialty Start Date End Date Doctor, None, PCP - General 04/01/01 10/05/02 documented as of this encounter
--- OUTSIDE RECORDS SUMMARY | 2021-12-03 11:53 | XMS_ITS | Encounter Summary ---
:1955 Author Organization [place] Address [facility] [place] [address] Care Team Providers Name Role Phone Doctor, None MD Primary Care Provider Unavailable Reason for Visit Reason Comments Imm/Inj Encounter Details Date Type Department Care Team Description 12/14/2001 Telephone [facility] Jarett Desai MD Imm/Inj [place] [address] [facility] [address] [place] [address] [place] [address] [phone] Social History Tobacco Use Types Packs/Day Years Used Date Smoking Tobacco: Never Assessed Sex Assigned at Date Recorded Female 01/06/2021 11:10 AM FIELD REP documented as of this encounter Miscellaneous Notes Telephone Encounter - 12/14/2001 11:59 PM FIELD REP >> CARISSA STEVENS Julia Dec 15, 2001 2:07 PM Pt. advised to have a follow up appt. and transferred to appt. desk. Carissa Stevens L.P.N. >> JARETT DESAI WedDec 14, 2001 7:47 PM Clinic policy for hep is appointment; can discuss at appointment >> SALIMA MESA WedDec 14, 2001 11:06 AM >> CALL RECEIVED. Contact: Pt calling Pt would like to starty the Hepatitis series of shots and her tetanus (and the flu while she is here ) before the end of the year when her insurance changes Feb. Can she come in for nurse only a ppt to get these injestions? Hx of asthma - do you recommend she also get pneumonia shot? documented in this encounter Plan of Treatment Not on filedocumented as of this encounter Visit Diagnoses Not on filedocumented in this encounter Care Teams Admeasurer Relationship Specialty Start Date End Date Doctor, Stella, PCP - General 04/01/01 10/05/02 documented as of this encounter
--- OUTSIDE RECORDS SUMMARY | 2021-12-03 11:53 | XMS_ITS | Encounter Summary ---
:1955 Author Organization [facility] Address [address] [place] [address] Care Team Providers Name Role Phone Bj Pelletier MD Primary Care Provider Encounter Details Date Type Department Care Team Description 10/06/2002 Telephone [facility] Jaime Marquez MD [place] [facility] [address] [place] [address] [place], [place] [address] Social History Tobacco Use Types Packs/Day Years Used Date Smoking Tobacco: Never Alcohol Use Standard Drinks/Week Comments Yes 0 (1 standard drink = 0.6 oz pure alcoho l) 2-3 times a week Sex Assigned at Date Recorded Female 01/06/2021 11:10 AM PUBLIC WORKS DIRECTOR documented as of this encounter Miscellaneous Notes Telephone Encounter - 10/06/2002 11:59 PM CDT >> GABRIELLA Green Oct 06, 2002 3:17 PM >> CALL RECEIVED. Contact: documented in this encounter Plan of Treatment Not on filedocumented as of this encounter Visit Diagnoses Not on filedocumented in this encounter Care Teams Maintenance Welder Relationship Specialty Start Date End Date Bj Pelletier MD PCP - General 10/06/02 08/22/16 XXX RESIGNED [place] [address] [place] [address] documented as of this encounter
--- OUTSIDE RECORDS SUMMARY | 2021-12-03 11:53 | XMS_ITS | Encounter Summary ---
:1955 Author Organization [place] Address [facility] [place] [address] Care Team Providers Name Role Phone Stella Osborne MD Primary Care Provider Unavailable Reason for Visit Reason Comments Refill Request Encounter Details Date Type Department Care Team Description 12/05/2001 Refill [facility] Jarett Desai MD Refill Request [place] [id number] [place] [address] [address] [place] [address] [place] [address] [phone] Social History Tobacco Use Types Packs/Day Years Used Date Smoking Tobacco: Never Assessed Sex Assigned at Date Recorded Female 01/06/2021 11:10 AM MANAGER BODY documented as of this encounter Miscellaneous Notes Telephone Encounter - 12/05/2001 11:59 PM CDT >> JARETT DESAI WedDec 05, 2001 6:46 PM ok >> EVIE DUBON WedDec 05, 2001 1:00 PM >> CALL RECEIVED. Contact: RX refill form faxed to [employer] for approval. Just need to input into Epic documented in this encounter Plan of Treatment Not on filedocumented as of this encounter Visit Diagnoses Not on filedocumented in this encounter Care Teams Process Control Engineer Relationship Specialty Start Date End Date Stella Osborne MD PCP - General 04/01/01 10/05/02 documented as of this encounter
--- OUTSIDE RECORDS SUMMARY | 2021-12-03 11:55 | XMS_ITS ---
:1955 Author Care Team Providers Name Role Phone Harry Goel Primary Care Provider Unavailable Allergies Code Code System Name Reaction Severity Status Onset NKDA ? Notes: seasonal, cats, smoke, mold Medications Name Status Start Date Stop Date ? ? amoxicillin 500 mg capsule Active ? Not a vailable TAKE 4 CAPSULES BY MOUTH ONCE NEEDED 1-2 HOURS BEFORE EACH D ENTAL APPT amoxicillin 875 mg-potassium clavulanate 125 mg tablet Active ? Not available TAKE 1 TABLET BY MOUTH TWICE A DAY FOR 10 DAYS azithromycin 250 mg tablet Active ? Not a vailable TAKE 1 TABLET BY MOUTH EVERY DAY FOR 21 DAYS Breo Ellipta 100 mcg-25 mcg/dose powder for inhalation Active ? Not available doxycycline monohydrate 100 mg capsule Active ? Not available TAKE 1 CAPSULE BY MOUTH TWICE A DAY FOR 10 DAYS fluticasone 232 mcg-salmeterol 14 mcg/actuation breath activated powdr Active ? Not available INHALE 1 PUFF TWO TIMES A DAY. RINSE MOUTH/GARGLE AFTER USE. fluticasone propionate 50 mcg/actuation nasal spray,suspension A ctive ? Not available SPRAY 2 SPRAYS INTO EACH NOSTRIL EVERY DAY ketoconazole 2 % topical cream Active ? N ot available APPLY TO AFFECTED AREA TWICE A DAY lisinopril 5 mg tablet Active ? Not avail able TAKE 1 TABLET BY MOUTH EVERY DAY methylprednisolone 4 mg tablets in a dose pack Active ? Not available TAKE 6 TABLETS ON DAY 1 DIRECTED ON PACKAGE AND DECREASE BY 1 TAB EACH DAY FOR A TOTAL OF 6 DAYS montelukast 10 mg tablet Active ? Not nahid ilable TAKE 1 TABLET BY MOUTH EVERYDAY AT BEDTIME nitrofurantoin monohydrate/macrocrystals 100 mg capsule Active ? Not available TAKE 1 CAPSULE BY MOUTH EVERY 12 HOURS WITH MEALS -TAKE ON A FU LL STOMACH ofloxacin 0.3 % ear drops Active ? Not av ailable INSTILL 10 DROPS INTO EARS EVERY DAY FOR 7 DAYS oxycodone 5 mg tablet Active ? Not availa ble phenazopyridine 200 mg tablet Completed ? prednisone 10 mg tablet Active ? Not avai lable prednisone 20 mg tablet Active ? Not avai lable Symbicort 160 mcg-4.5 mcg/actuation HFA aerosol inhaler Active ? Not available tretinoin 0.025 % topical cream Active ? Not available triamcinolone acetonide 0.1 % topical cream Active ? Not available APPLY THIN COAT TO AFFECTED AREA TWICE A DAY Ventolin HFA 90 mcg/actuation aerosol inhaler Active ? Not available Problems Name Status Onset Date Source ? Hypertensive Disorder Active 03/18/2019 ? Procedures None recorded. Results Lab Results Date Name Specimen Result Interpretation Description Value Range Status Address ? 10/25/2021 Pathology, CHEST, ? No ? ? ? [facility] Skin RIGHT observation - [facility] recorded. Dermato pathology: [address] [place] [address] 12/25/2019 Pathology, AXILLA, ? No ? ? ? [facility] Skin RIGHT observation - [facility] recorded. Dermato pathology: [address] [place] [address] 12/25/2019 Pathology, DELTOID, ? Diagnosis ? ? Fin [facility] Skin RIGHT, - [facility] POSTERIOR Dermato pathology: [address] [place] [address] ? ? DELTOID, ? Procedure ? ? Final [facility] RIGHT, - [facility] Dermato pathology: [address] [place] [address] ? ? DELTOID, ? Material ? ? Final [facility] RIGHT, Submitted - [facility] POSTERIOR Dermato pathology: [address] [place] [address] ? ? DELTOID, ? Gross ? ? Final [facility] RIGHT, Description - [facility] POSTERIOR Dermato pathology: [address] [place] [address] ? ? DELTOID, ? Microscopic ? ? Final [facility] RIGHT, - [facility] POSTERIOR Dermato pathology: [address] [place] [address] ? ? DELTOID, ? Specimen ? ? Final [facility] RIGHT, Clinical - [facility] POSTERIOR Information De rmatopathology: [address] [place] [address] Past Encounters 10/25/2021 Neoplasm of Uncertain Behavior of Skin; Seborrheic Keratosis of Scalp; History of Malignant Melanoma; Multiple Benign Melanocytic Nevi; Senile Angioma; Screening for Malignant Neoplasm of Skin Harry Goel MD: [address] [place] [address], Ph. 04/28/2021 Acute Bronchitis; Multiple Benign Melano cytic Nevi; History of Malignant Melanoma; Screening for Malignant Neoplasm of Skin Harry Geol MD: [address] [place] [address], Ph. 02/24/2021 Milia; Darrel's Dilated Pore Harry Goel MD: [address] [place] [address], Ph. 07/04/2020 Multiple Benign Melanocytic Nevi; Ptosis of Eyebrow; Senile Angioma; History of Malignant Melanoma; Screening for Malignant Neoplasm of Skin Harry Goel MD: [address] [place] [address], Ph. Social History Tobacco Smoking Status Unknown If Ever Smoked Vaccine List None recorded. Plan of Care Reminders Provider Appointments None recorded. ? ? Lab None recorded. ? ? Referral None recorded. ? ? Procedures None recorded. ? ? Surgeries None recorded. ? ? Imaging None recorded. ? ? Vitals None recorded.
--- OUTSIDE RECORDS SUMMARY | 2021-12-03 11:55 | XMS_ITS | Encounter Summary ---
:1955 Author Reason for Visit skin check Assessment and Plan Assessment Note 1. Neoplasm uncertain etiology right ch est. Discussed the unusual nature. Discussed the ugly duckling concept. Anesthetized 1% lidocaine with epinephrine. The area was anesthetized with 1% lidocaine with epinephrine, a tangential shave biopsy pe rformed, tissue submitted and wound care instructions given. 2. Multiple benign nevi discussed ugly duckling concept see #1 above. 3. History melanoma 0.43 mm deep right hip 2016 no signs recurrence discussed increased future risk. Recommend annual follow-up 4. seborrheic keratosis dose right abdo men treated cryotherapy as a courtesy 5. Milia lower lip extracted as a court esy discussed bruising. 6. General skin cancer screening. Visit exceeded 33 minutes when taken in to account dictation coding all performed on day of visit. Over 50% [id number] counseling Follow-up 1 year 1. Neoplasm of uncertain behavior of sk in ? pathology, skin 2. Seborrheic keratosis of scalp 3. History of Malignant melanoma 4. Multiple benign melanocytic nevi 5. Senile angioma 6. Screening for malignant neoplasm of skin Discussion Note: None recorded.Patient educational handouts: No information available. Plan of Care Reminders Provider Appointments None recorded. ? ? Lab Pathology, Skin 10/25/2021 [facility] Dermatopathology Referral None recorded. ? ? Procedures None recorded. ? ? Surgeries None recorded. ? ? Imaging None recorded. ? ? Medications Name Start Date ? ? amoxicillin 500 mg capsule ? TAKE 4 CAPSULES BY MOUTH ONCE NEEDED 1-2 HOURS BEF ORE EACH DENTAL APPT amoxicillin 875 mg-potassium clavulanate 125 mg tablet ? TAKE 1 TABLET BY MOUTH TWICE A DAY FOR 10 DAYS azithromycin 250 mg tablet ? TAKE 1 TABLET BY MOUTH EVERY DAY FOR 21 DAYS Breo Ellipta 100 mcg-25 mcg/dose powder for inhalation ? doxycycline monohydrate 100 mg capsule ? TAKE 1 CAPSULE BY MOUTH TWICE A DAY FOR 10 DAYS fluticasone 232 mcg-salmeterol 14 mcg/actuation breath activated powdr ? INHALE 1 PUFF TWO TIMES A DAY. RINSE MOUTH/GARGLE AFT ER USE. fluticasone propionate 50 mcg/actuation nasal spray,lowry spension ? SPRAY 2 SPRAYS INTO EACH NOSTRIL EVERY DAY ketoconazole 2 % topical cream ? APPLY TO AFFECTED AREA TWICE A DAY lisinopril 5 mg tablet ? TAKE 1 TABLET BY MOUTH EVERY DAY methylprednisolone 4 mg tablets in a dose pack ? TAKE 6 TABLETS ON DAY 1 DIRECTED ON PACKAGE AND DECREASE BY 1 TAB EACH DAY FOR A TOTAL OF 6 DAYS montelukast 10 mg tablet ? TAKE 1 TABLET BY MOUTH EVERYDAY AT BEDTIME nitrofurantoin monohydrate/macrocrystals 100 mg capsul e ? TAKE 1 CAPSULE BY MOUTH EVERY 12 HOURS WITH MEALS -TA KE ON A FULL STOMACH ofloxacin 0.3 % ear drops ? INSTILL 10 DROPS INTO EARS EVERY DAY FOR 7 DAYS oxycodone 5 mg tablet ? prednisone 10 mg tablet ? TAKE 3 TABLETS (30 MG TOTAL) BY MOUTH DAILY FOR 5 DAY S. prednisone 20 mg tablet ? Symbicort 160 mcg-4.5 mcg/actuation HFA aerosol inhale r ? INHALE 2 PUFFS 2 TIMES A DAY. RINSE LAUREANO TH WITH WATER AFTER USE TO REDUCE. DO NOT SWALLOW. tretinoin 0.025 % topical cream ? APPLY TO THE AFFECTED AREA(S) BY TOPICAL ROUTE ONCE D AILY AT BEDTIME triamcinolone acetonide 0.1 % topical cream ? APPLY THIN COAT TO AFFECTED AREA TWICE A DAY Ventolin HFA 90 mcg/actuation aerosol inhaler ? INHALE 2 PUFFS INTO THE LUNGS EVERY 4 H OURS NEEDED FOR SHORTNESS OF BREATH / DYSPNEA OR WHEEZING Medications Administered None recorded. Vitals None recorded. Results Lab Results Date Name Specimen Result Interpretation Description Value Range Status Address ? 10/25/2021 Pathology, CHEST, ? No observation ? ? ? [facility] - Skin RIGHT recorded. [facility]: [address] [place] [address] Allergies Code Code System Name Reaction Severity Onset NKDA ? ? ? Notes: seasonal, cats, smoke, mold Problems Name Status Onset Date Source ? Hypertensive Disorder Active 03/18/2019 ? Procedures None recorded. Vaccine List None recorded. Social History Tobacco Smoking Status Unknown If Ever Smoked Do you use sunscreen routinely? Y Tanning bed exposure N Sun exposure Minimal What is your relationship status? Functional Status Unknown. Past Encounters 10/25/2021 Neoplasm of Uncertain Behavior of Skin; Seborrheic Keratosis of Scalp; History of Malignant Melanoma; Multiple Benign Melanocytic Nevi; Senile Angioma; Screening for Malignant Neoplasm of Skin Harry Goel MD: [address], [place] [address], Ph. History of Present Illness Note: <span>65-year-old female presents today for several separate distinct concerns. Of scaly flaky area on the right abdomen. Present for months. Occasionally irritated by clothing. Otherwise asymptomatic with no prior treatments no alleviating or aggravating factors.

Follow-up of her melanoma 2017 0.43 mm deep right. No signs of pain or discomfort.

A general skin evaluation. She notes a small bump on the lower cutaneous lip midline vermilion border. Slightlypainful does not hurt does not bleed no prior treatments.

She notes a darkening lesion on the right chest. Present for an extended period of time now. Changing in color. Asymptomaticotherwise. Does not bleed. She is concerned due to her previous melanoma

Family history: Unchanged but her daughter has an unusual dark spot recently we are going to work her in

Social history: They have been traveling. Retired. Wearing sunscreens does not smoke

Family history unchanged.

She has an upcoming blepharoplasty planned.

</span> Review of Systems ? Notes: <span>Review systems: patien t feels overall excellent health, weight stable, no issues with bleeding, silvia tting or healing. </span> Physical Exam ? Notes: <span>Insert female exam red dish-purple but warm melanocytic lesion on the right chest 4 mm. Inconsiste nt with the other lesions. Brown scaly stuck lesion right abdomen. Well-h ealed scar right hip no nodularity. No inguinal or axillary adenopathy.

Healthy pleasant female alert, oriented, in no acute distress. Examination includes the scalp, face, nose, eyelids, lower conjunctiva, lips, oral muco sa, neck, chest, back, arms, legs, palms, soles and the web spaces hands and feet. Excludes the undergarment regions, unless specifically noted.

Scattered nevi 2 to 4 mm light brown to mid brown no inconsistent lesions excl uding that unusual lesion on the right chest.</span>
[2021-12-03 13:21] LABS: Chloride* 99 mmol/L (96-114)
[2021-12-03 13:22] LABS: Potassium* 4.2 mmol/L (3.6-5.1); Sodium* 137 mmol/L (135-149)
[2021-12-03 13:24] LABS: Creatinine* 0.6 mg/dL (0.5-1.5); Estimated Glomerular Filt Rate 99 ml/min
[2021-12-03 13:25] LABS: Blood Urea Nitrogen* 14 mg/dL (7-30); Calcium* 9.5 mg/dL (8.4-10.6); Carbon Dioxide* 29 mmol/L (20-32); Glucose* 106 mg/dL (60-115)
== END 2021-12-03 11:33 | disposition home or self-care (01) ==
LOC: NFLDREF 11:34
PROVIDERS: PCP Internal Medicine; Visit Provider Family Medicine
DX: I10 Essential (primary) hypertension (principal)
CPT/HCPCS: 80048

== ENCOUNTER 2022-06-11 14:49 | Outpatient (CLI) | payer MEDICARE, SELFPAY ==
--- NOTE | 2022-06-11 15:00 | CRLHL7_ITS ---
For Patients: As a result of the Century Cures Act, medical imaging exams and procedure reports are released immediately into your electronic medical record. You may view this report before your referring provider. If you have questions, please contact your health care provider. INDICATION: Lymphadenopathy. TECHNIQUE: CT images acquired through the neck following intravenous contrast. COMPARISON: None. FINDINGS: The nasopharynx, oropharynx, hypopharynx, and larynx are widely patent without enhancing lesions. No epiglottic thickening or retropharyngeal edema. Beam hardening artifact secondary to dental amalgam limits evaluation of the oral cavity and adjacent structures. No enhancing lesions within the floor of mouth. The parotid and submandibular glands unremarkable. The thyroid gland is unremarkable. No pathologically enlarged lymph nodes. Limited images through the brain are without pathologic intracranial enhancement. The paranasal sinuses and mastoid air cells are clear. Advanced multilevel cervical spondylosis. No aggressive osseous lesions. The visualizes lungs are clear. Torus mandibularis interna. IMPRESSION: 1. No mass, pathologically enlarged lymph nodes, or fluid collection in the neck. 2. Advanced multilevel cervical spondylosis. Please note that all CT scans at this facility use dose modulation, iterative reconstruction, and/or weight-based dosing when appropriate to reduce radiation dose to as low as reasonably achievable. Dictated by Rafiq Sears MD @ 06/12/2022 7:09:36 PM (Electronically Signed)
== END 2022-06-11 14:50 | disposition home or self-care (01) ==
LOC: CT 14:49
PROVIDERS: PCP Internal Medicine; Visit Provider Internal Medicine
DX: R59.1 Generalized enlarged lymph nodes (principal); M47.812 Spondylosis without myelopathy or radiculopathy, cervical region
CPT/HCPCS: 70491; Q9967

== ENCOUNTER 2022-08-04 12:52 | Emergency (ER) | payer MEDICARE, SELFPAY ==
[2022-08-04 13:11] VITALS: BP 147/83; PULSE 81; RESP 16; TEMP 36.7; O2SAT 97; BMI 22.3
--- NOTE | 2022-08-04 13:54 | ED.GENADULT ---
HPI - General Adult General Time Seen by Provider: 13:55 Date Seen: 08/04/22 Chief complaint: Weakness Stated complaint: Bloody Stools Time Seen by Provider: 08/04/22 13:33 Source: patient and RN notes reviewed Mode of arrival: ambulatory Limitations: no limitations History of Present Illness HPI narrative: Patient is a 66-year-old female coming into the ER with concern of bloody diarrhea. She states her symptoms started Wednesday night, started more with diarrhea and no blood. She has had abdominal cramping with this. No fever. She has felt slightly nauseated but no vomiting, does endorse diminished appetite. All she is passing now is blood, maybe clots. There may be some mucus and but she feels like it is just more blood that she is passing now. She feels weak. She was on Keflex last week, stopped it early once the diarrhea started. She was on the Keflex for a tick bite. She feels that area looks good. Related Data Home Medications Medication Instructions Recorded Confirmed albuterol sulfate 90 mcg/actuation inhalation .as needed PRN 12/03/21 07/27/22 aerosol inhaler ascorbate calcium (vitamin C) 1 tab PO DAILY 12/03/21 07/27/22 cholecalciferol (vitamin D3) 50 50 mcg PO QDAY 12/03/21 07/27/22 mcg (2,000 unit) capsule fluticasone 232 mcg-salmeterol 14 inh inhalation BID 12/03/21 07/27/22 mcg/actuation breath activated powdr omega-3 fatty acids 1,000 mg 1,000 mg PO QDAY 12/03/21 07/27/22 capsule vitamin B complex 1 cap PO QDAY 12/03/21 07/27/22 Previous Rx's Medication Instructions Recorded omeprazole magnesium 20 mg 20 mg PO .bed time #30 tabs 12/03/21 tablet,delayed release (Prilosec OTC) lisinopril 5 mg tablet 5 mg PO DAILY Hypertension #90 tabs 01/10/22 Allergies Allergy/AdvReac Type Severity Reaction Status Date / Time Sulfa (Sulfonamide Allergy Severe Hives Verified 08/04/22 16:02 Antibiotics) sulfamethoxazole Allergy Severe Hives Verified 08/04/22 16:02 tramadol Allergy Severe mental Verified 08/04/22 16:02 clarity trimethoprim Allergy Severe Hives Verified 08/04/22 16:02 Review of Systems Status of ROS: Reports: 6 or more systems reviewed and unremarkable except as noted in History and below PFSH [facility] Medical History Cellulitis ?L03.90 - Cellulitis, unspecified (ICD-10) Lymphadenopathy ?R59.1 - Generalized enlarged lymph nodes (ICD-10) History of pulmonary function tests ?Z92.89 - Personal history of other medical treatment (ICD-10) History of multiple pulmonary nodules ?Z87.898 - Personal history of other specified conditions (ICD-10) History of malignant melanoma ?Z85.820 - Personal history of malignant melanoma of skin (ICD-10) History of environmental allergies ?Z91.09 - Other allergy status, other than to drugs and biological substances (ICD-10) History of airway aspiration ?Z87.898 - Personal history of other specified conditions (ICD-10) Surgical History History of right shoulder replacement (07/2021) ?Z96.611 - Presence of right artificial shoulder joint (ICD-10) History of melanoma excision (2018) ?Z98.890 - Other specified postprocedural states (ICD-10) ?Z85.820 - Personal history of malignant melanoma of skin (ICD-10) History of hysterectomy with bilateral oophorectomy (~2013) ?Z90.710 - Acquired absence of both cervix and uterus (ICD-10) ?Z90.722 - Acquired absence of ovaries, bilateral (ICD-10) History of hernia repair ?Z98.890 - Other specified postprocedural states (ICD-10) ?Z87.19 - Personal history of other diseases of the digestive system (ICD-10) Family History Maternal Grandmother Breast cancer Father Coronary artery disease Heart disease High cholesterol High blood pressure Mother Ovarian cancer Skin cancer Paternal Grandfather Stroke Son FH: testicular cancer Aunt Uterine cancer Social History Narrative: , 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 Lifetime nonsmoker Alcohol use 7-8 beers per week Smoking Status: Never smoker Little interest or pleasure in doing things: not at all Feeling down, depressed, or hopeless: not at all Exam Const: Vital Signs, click to edit/add: Vital Signs - 24 hr 08/04/22 13:11 08/04/22 17:04 Temperature 98.0 F 98.3 F Pulse Rate [Right Pulse Oximeter] 81 82 Respiratory Rate 16 18 Blood Pressure [Ri ght Upper Arm] 147/83 H 154/98 H Pulse Oximetry 97 98 Oxygen Delivery Me thod Room Air Documenting provider has reviewed patient's vital signs: yes Common normals: no apparent distress, average body habitus, oriented x3, no limitations, healthy appearing, alert and well nourished General appearance: cooperative, comfortable, well kempt and well developed HENMT: Common normals: normocephalic, head/scalp atraumatic, hearing grossly normal bilaterally and external nose normal Head and scalp: normocephalic and atraumatic Face and sinus: normal facial exam Nose: external nose normal Eye: Common normals: PERRL, EOMs intact bilaterally, conjunctivae normal and no scleral icterus Conjunctiva: conjunctiva(e) normal Pupil: PERRL Resp: Common normals: normal respiratory effort, no retractions, no use of accessory muscles and clear to auscultation bilaterally Effort & inspection: able to speak in complete sentences Auscultation: clear to auscultation bilaterally GI: Common normals: Normal to inspection, nondistended, normoactive bowel sounds present, soft to palpation, non-tender, no hepatosplenomegaly and no masses Palpation: soft and no hepatosplenomegaly Extremity: Other: Posterior aspect of the leg is visualized were she states she had a tick bite, can see no residual abnormalities. Certainly no evidence of any erythema or infection her remains. Neuro: Common normals: oriented x3 Sensorium/orientation: alert Psych: Appearance: well kempt Course Course Hospital Course: We can see if the specimen she brought is adequate to test for C difficile. I agree that C difficile colitis could be a concern but bloody diarrhea is not what I would typically expect. Sounds like she has went into more rectal bleeding or gregorio production of blood and clots. This would make me more concern of processes like diverticulitis, diverticular bleed, colitis. Given that she is morphed into bleeding, do think we should proceed with CT abdomen pelvis with IV contrast. We will give her L of IV fluids to ensure adequate hydration, check appropriate labs including blood type. Reevaluation(s) Time of Reevaluation #1: 17:00 Reevaluation #1: Checked on patient, she states she is doing fine. We are waiting her CT scan to be read. Have reviewed with her that her C difficile is negative. She remember that she had been to a [facility] last week. Reviewed with her for CT scan is not showing anything, will send her home with collection kit for ova and parasite and stool cultures. Time of Reevaluation #2: 17:39 Reevaluation #2: Have reviewed CT findings with the patient. Her CT showing colitis. She does have a lesion that they do note might be coming from the kidney. This is a lesion that the patient know she has. She did tell me this when we discussed doing her CT initially. She was reviewing with me the CTs that she has had for this lesion that they followed, she states she has now graduated ultrasounds of that. I did review with her that I briefly ran the case by my hospitalists, he agree she does not need admission at this time. Will have her do conservative management at home. Vital Signs Vital signs: Initial Vital Signs Temperature 98.0 F 08/04/22 13:11 Temperature Source Temporal Artery Scan 08/04/22 13:11 Pulse Rate 81 08/04/22 13:11 Pulse Rhythm Regular 08/04/22 13:11 Pulse Strength 3+ Normal 08/04/22 13:11 Respiratory Rate 16 08/04/22 13:11 Blood Pressure 147/83 H 08/04/22 13:11 Blood Pressure Mean 104 08/04/22 13:11 Blood Pressure Position Sitting 08/04/22 13:11 Pulse Oximetry 97 08/04/22 13:11 Oxygen Delivery Method Room Air 08/04/22 13:11 Vital Signs Temperature 98.0 F 08/04/22 13:11 Pulse Rate 81 08/04/22 13:11 Respiratory Rate 16 08/04/22 13:11 Blood Pressure 147/83 H 08/04/22 13:11 Pulse Oximetry 97 08/04/22 13:11 Oxygen Delivery Method Room Air 08/04/22 13:11 Temperature 98.3 F 08/04/22 17:04 Pulse Rate 82 08/04/22 17:04 Respiratory Rate 18 08/04/22 17:04 Blood Pressure 154/98 H 08/04/22 17:04 Pulse Oximetry 98 08/04/22 17:04 Oxygen Delivery Method Room Air 08/04/22 13:11 Medical Decision Making Lab Data Lab results reviewed: Yes I reviewed the patient's lab results Labs: Lab Results 08/04/22 08/04/22 Range/Units 13:55 14:13 WBC 10.49 (4.50-11.00) K/uL RBC 4.11 (4.00-5.20) m/uL Hgb 12.7 (12.0-16.0) gm/dL Hct 38.7 (33.0-51.0) % MCV 94 (80-100) fL MCH 31 (26-34) pg MCHC 33 (32-36) gm/dL RDW Coeff of Sachin 12.1 (11.5-15.5) % Plt Count 279 (140-440) K/uL Neut % (Auto) 73.3 H (42.0-72.0) % Lymph % (Auto) 16.1 L (20-44) % Ralls % (Auto) 7.4 (0.0-11.0) % Eos % (Auto) 1.9 (0.0-7.0) % Baso % (Auto) 0.4 (0.0-3.0) % Neut # (Auto) 7.70 H (1.7-7.0) K/uL Lymph # (Auto) 1.70 (0.90-2.90) K/uL Ralls # (Auto) 0.80 (0.00-0.90) K/UL Eos # (Auto) 0.20 (0.00-0.50) K/uL Baso # (Auto) 0.04 (0.00-0.30) K/uL Sodium 131 L (135-149) mmol/L Potassium 3.8 (3.6-5.1) mmol/L Chloride 99 (96-114) mmol/L Carbon Dioxide 29 (20-32) mmol/L BUN 7 (7-30) mg/dL Creatinine 0.6 (0.5-1.5) mg/dL Estimated Creat Clear 47.79 Estimated GFR 99 ml/min Glucose 98 (60-115) mg/dL Lactate 0.6 (0.5-1.9) mmol/L Calcium 9.2 (8.4-10.6) mg/dL Total Bilirubin 1.2 (0.1-1.5) mg/dL AST 23 (12-35) U/L ALT 16 (4-35) U/L Alkaline Phosphatase 72 (40-150) U/L C-Reactive Protein 1.2 H (0.5-1.0) mg/dL Total Protein 7.4 (6.0-8.3) g/dL Albumin 4.4 (3.3-5.0) g/dL Stl C. diff Tox B Gene Negative (Negative) Stl C. diff [id number] PRESUMPTIVE NEGATIVE (Negative) Blood Type O Positive Antibody Screen NEGATIVE Imaging Data CT scan - abdomen: Attestation: I have reviewed the pertinent imaging results. Radiologist's impression: Patient: MUSTAPHA PORTER Facility:?[facility] Patient ID:?[id number] Site Patient ID:?[id number]. Site :?[id number] Study:?CT Abdomen/Pelvis W/64CC [id number]/20/2023 4:05:33 PM Ordering Physician:Suad Sin Final Report: INDICATION: Abdominal pain, rectal bleeding. TECHNIQUE: CT abdomen and pelvis acquired with 64 cc Isovue 370 IV contrast. COMPARISON: None. FINDINGS: Lower chest: Scattered atelectasis. Small hiatal hernia. Liver: Few tiny hypodensities, too small to characterize. Normal in size and attenuation. No suspicious masses. Gallbladder and bile ducts: Cholelithiasis without cholecystitis. Pancreas: Unremarkable. No mass or inflammation. Spleen: Unremarkable. Normal in size. No masses. Adrenal glands: Unremarkable. No nodules. Kidneys: No stones, or hydronephrosis. Tiny 7 millimeter exophytic indeterminate lesion arising from the right inferior pole. GI tract: Moderate duodenal diverticulum. No bowel obstruction. Circumferential wall thickening of the descending colon with perienteric inflammatory stranding. Normal appendix. Vasculature: Abdominal aorta is normal in caliber. Mesenteric arteries are patent. Lymph nodes: No lymphadenopathy. Peritoneum/Abdominal Wall: Tiny fat containing umbilical hernia. No sign of mass or infiltration. No free air or significant free fluid. Pelvis: Hysterectomy. Moderately distended bladder. Trace free fluid in the pelvis. Bones: Unremarkable for age. IMPRESSION: Circumferential wall thickening of the descending colon with perienteric inflammatory stranding suggestive of colitis. No drainable fluid collections. Indeterminate 7 millimeter exophytic right inferior pole lesion. Although this could possibly represent adjacent colonic diverticulum, recommend correlation with prior imaging if available. If not consider outpatient nonemergent ultrasound. Please note that all CT scans at this facility use dose modulation, iterative reconstruction, and/or weight-based dosing when appropriate to reduce radiation dose to as low as reasonably achievable. Dictated by Francois Keating MD @ 08/04/2022 5:11:19 PM (Electronic Signature) Discharge Plan Discharge Clinical Impression: Bloody diarrhea, Colitis Patient Disposition: Home, Self-Care Condition: Stable Instructions: Nutrition Tips for Relief of Diarrhea (ED), Colitis (ED) Additional Instructions: Push clear liquids. Would recommend clear liquids for the next day or two. Once your symptoms start to settle down, can reintroduce some foods, follow the handout given. Collect stool for ova parasite and stool culture, return these to our lab when you have collected them. If you develop increasing abdominal pain, fever, vomiting with this or increasing bleeding, do need to be re-evaluated. Otherwise recommend recheck in clinic with her primary care provider within the next 7-10 days. Activity Level: Activity as Tolerated Discharge Diet: Clear Liquid Prescriptions: No Action vitamin B complex Capsule 1 cap PO QDAY fluticasone propion-salmeterol 232-14 mcg/actuation aerosol powdr breath activated inhalation BID albuterol sulfate 90 mcg/actuation HFA aerosol inhaler inhalation .as needed PRN cholecalciferol (vitamin D3) 50 mcg (2,000 unit) capsule 50 mcg PO QDAY omega-3 fatty acids 1,000 mg capsule 1,000 mg PO QDAY ascorbate calcium (vitamin C) 1 tab PO DAILY omeprazole magnesium [Prilosec OTC] 20 mg tablet,delayed release (DR/EC) 20 mg PO .bed time Qty: 30 0RF lisinopril 5 mg tablet 5 mg PO DAILY Qty: 90 3RF Follow Up/Referrals: Alcides Frazier MD [Primary Care Provider] - Stand Alone Forms: [employer] Info Instructions
--- NOTE | 2022-08-04 14:01 | CRLHL7_ITS ---
For Patients: As a result of the Century Cures Act, medical imaging exams and procedure reports are released immediately into your electronic medical record. You may view this report before your referring provider. If you have questions, please contact your health care provider. INDICATION: Abdominal pain, rectal bleeding. TECHNIQUE: CT abdomen and pelvis acquired with 64 cc Isovue 370 IV contrast. COMPARISON: None. FINDINGS: Lower chest: Scattered atelectasis. Small hiatal hernia. Liver: Few tiny hypodensities, too small to characterize. Normal in size and attenuation. No suspicious masses. Gallbladder and bile ducts: Cholelithiasis without cholecystitis. Pancreas: Unremarkable. No mass or inflammation. Spleen: Unremarkable. Normal in size. No masses. Adrenal glands: Unremarkable. No nodules. Kidneys: No stones, or hydronephrosis. Tiny 7 millimeter exophytic indeterminate lesion arising from the right inferior pole. GI tract: Moderate duodenal diverticulum. No bowel obstruction. Circumferential wall thickening of the descending colon with perienteric inflammatory stranding. Normal appendix. Vasculature: Abdominal aorta is normal in caliber. Mesenteric arteries are patent. Lymph nodes: No lymphadenopathy. Peritoneum/Abdominal Wall: Tiny fat containing umbilical hernia. No sign of mass or infiltration. No free air or significant free fluid. Pelvis: Hysterectomy. Moderately distended bladder. Trace free fluid in the pelvis. Bones: Unremarkable for age. IMPRESSION: Circumferential wall thickening of the descending colon with perienteric inflammatory stranding suggestive of colitis. No drainable fluid collections. Indeterminate 7 millimeter exophytic right inferior pole lesion. Although this could possibly represent adjacent colonic diverticulum, recommend correlation with prior imaging if available. If not consider outpatient nonemergent ultrasound. Please note that all CT scans at this facility use dose modulation, iterative reconstruction, and/or weight-based dosing when appropriate to reduce radiation dose to as low as reasonably achievable. Dictated by Francois Keating MD @ 08/04/2022 5:11:19 PM (Electronically Signed)
[2022-08-04] MEDS: 0.9 % SODIUM CHLORIDE 1000 ml 1,000 ML 500 ML IV (14:14)
[2022-08-04 14:20] LABS: Lactate* 0.6 mmol/L (0.5-1.9)
[2022-08-04 14:27] LABS: Basophils Absolute Auto 0.04 K/uL (0.00-0.30); Basophils Percent Auto 0.4 % (0.0-3.0); Eosinophils Percent Auto 1.9 % (0.0-7.0); Hematocrit 38.7 % (33.0-51.0); Hemoglobin* 12.7 gm/dL (12.0-16.0); Immature Granulocytes Abs Auto 0.09 K/uL (0.00-0.30); Immature Granulocytes Pct Auto 0.9 %; Lymphocytes Percent Auto 16.1 % (20-44); Mean Corpuscular HGB Conc 33 gm/dL (32-36); Mean Corpuscular Hemoglobin 31 pg (26-34); Mean Corpuscular Volume 94 fL (80-100); Monocytes Percent Auto 7.4 % (0.0-11.0); Neutrophils Percent Auto 73.3 % (42.0-72.0); Platelet Count* 279 K/uL (140-440); RDW Coefficient of Variation % 12.1 % (11.5-15.5); Red Blood Count 4.11 m/uL (4.00-5.20); White Blood Count* 10.49 K/uL (4.50-11.00)
[2022-08-04 14:29] LABS: Slide Review Reflex No
[2022-08-04 14:53] LABS: Albumin* 4.4 g/dL (3.3-5.0); Chloride* 99 mmol/L (96-114)
[2022-08-04 14:54] LABS: Potassium* 3.8 mmol/L (3.6-5.1); Sodium* 131 mmol/L (135-149)
[2022-08-04 14:56] LABS: Bilirubin Total* 1.2 mg/dL (0.1-1.5); Creatinine* 0.6 mg/dL (0.5-1.5); Est. Creatinine Clearance* 47.79; Estimated Glomerular Filt Rate 99 ml/min
[2022-08-04 14:57] LABS: Alanine Aminotransferase* 16 U/L (4-35); Alkaline Phosphatase* 72 U/L (40-150); Aspartate Amino Transferase* 23 U/L (12-35); Blood Urea Nitrogen* 7 mg/dL (7-30); Calcium* 9.2 mg/dL (8.4-10.6); Carbon Dioxide* 29 mmol/L (20-32); Glucose* 98 mg/dL (60-115); Total Protein* 7.4 g/dL (6.0-8.3)
[2022-08-04 15:00] LABS: C Reactive Protein* 1.2 mg/dL (0.5-1.0)
[2022-08-04 16:27] LABS: C.Difficile Negative (Negative); CDIFFEPI 027 PRESUMPTIVE NEGATIVE (Negative)
[2022-08-04 17:04] VITALS: BP 154/98; PULSE 82; RESP 18; TEMP 36.8; O2SAT 98
[2022-08-10 04:33] LABS: Ova and Parasite, Fecal Negative (Negative)
== END 2022-08-04 18:08 | disposition home or self-care (01) ==
PROVIDERS: Emergency Provider Family Medicine; PCP Internal Medicine
DX: K52.9 Noninfective gastroenteritis and colitis, unspecified (principal); K92.1 Melena
CPT/HCPCS: 36415; 74177; 80053; 83605; 85025; 86140; 86850; 86900; 86901; 87045; 87046; 87177; 87209; 87427; 87493; 99284; 99285; J7030; Q9967